=== PATIENT | female | born 1955 | race Caucasian/White ===

== ENCOUNTER 2019-12-01 13:18 | Emergency (ER) | payer MEDICAID, SELFPAY ==
[2019-12-01 13:21] VITALS: BMI 53.1
[2019-12-01 13:23] VITALS: BP 179/69; PULSE 96; RESP 20; TEMP 37; O2SAT 97
--- NOTE | 2019-12-01 13:23 | ED_ITS ---
Entered by Tomas Lyn LPN, acting as scribe for Mya Dangelo DO HPI - Epistaxis General: Chief complaint: Epistaxis Stated complaint: NOSEBLEED Time Seen by Provider: 12/01/19 13:25 Source: EMS Mode of arrival: EMS Limitations: no limitations History of Present Illness: HPI Narrative: 64 yo female presents via EMS with c/o extreme nosebleed. She reports she feels fine at this time, bleeding is controlled upon arrival to ER. She reports this is her 8th nosebleed in 3 weeks. She has seen Dr. Clinton since these started. She reports she had some right ear and sinus pain, Dr. Clinton wanted to do a CT, she is waiting to here for an appt for CT. She is on anticoagulant. She has been using Afrin with previous nosebleeds, states she usually just clamps her nose. Today's nosebleed lasted approximately 40mins to 1 hour, resolved while in route with EMS. She reports she has had a cough for awhile, nonproductive, was coughing then the nosebleed started today. She does have an inhaler to use at home as needed, no spacer. She is on home O2 via n/c, states she did not have this on when the bleeding started today. MD complaint: epistaxis Location: bilateral nostril Onset (ago): minute(s) (> 1 hour ago) Duration: now resolved Context: other anticoagulant use Associated symptoms: Reports sinus pain (right side for a couple weeks- seen ENT for this); Deny fever(s), headache(s) or vomiting Review of Systems Const: Denies: fever, chills, change in appetite or malaise Eyes: Denies: change in vision, blurry vision, eye discharge or eye redness ENMT: Reports: ear pain (right ear for a couple weeks- seen ENT for this), nose bleeds and facial/sinus pain (right side for a couple weeks- seen ENT for this); Denies: throat pain, uvular edema, painful swallowing, mouth pain, dental pain or nasal congestion Card: Denies: chest pain, irregular heart rhythm, swelling of feet/ankles, shortness of breath on exertion, shortness of breath when lying down or leg pain with exertion Resp: Reports: non-productive cough; Denies: shortness of breath, wheezing or coughing up blood GI: Denies: abdominal pain, nausea, vomiting, diarrhea, constipation or fecal incontinence : Denies: flank pain, difficulty urinating, painful urination, urinary frequency, urinary urgency or urinary hesitancy Musc: Denies: neck pain, back pain, extremity pain or extremity swelling Skin/Breast: Denies: rash, itching, redness, yellow skin or dry skin Neuro: Denies: headache, numbness in extremities, weakness in extremities, changes in sensation, lack of coordination or difficulty walking Psych: Denies: anxiety, depression, mood swings, panic attacks, sleeping less, suicidal ideation or homicidal ideation Endo: Denies: excessive urination, excessive thirst or tired all the time Kobe/Lymph: Denies: easy bruising, petechiae or enlarged lymph nodes All/Imm: Denies: hives, throat swelling, facial swelling, acute wheezing or seasonal allergies PFSH ED PFSH: Statuses (acute, chronic, etc) shown below reflect problem list status as previously entered and may not be historically accurate Social History Smoking and tobacco status: former smoker Physical Exam Const: COMMON NORMALS: no apparent distress, oriented x3, no limitations, healthy appearing, alert and well nourished GENERAL APPEARANCE: cooperative, comfortable, well kempt and well developed ORIENTATION/CONSCIOUSNESS: Yes awake, Yes oriented to person, Yes oriented to place and Yes oriented to time HENMT: COMMON NORMALS: normocephalic, head/scalp atraumatic, hearing grossly normal bilaterally, external ears normal, EAC's normal, TM's normal bilaterally, external nose normal, nasal mucous membranes and turbinates normal, moist oral mucous membranes, oropharynx normal, dentition normal and gingiva normal HEAD & SCALP: normal to inspection, normocephalic and atraumatic FACE & SINUS: normal facial exam NOSE: external nose normal, nasal mucous membranes and turbinates normal and other (not bleeding during exam, wearing n/c.) EXTERNAL EAR: Yes external ears normal EXTERNAL AUDITORY CANAL: EAC's normal TYMPANIC MEMBRANE: TM's normal bilaterally MOUTH: oral and palatal mucosa normal, lip normal and tongue normal THROAT: no uvular edema Eye: COMMON NORMALS: PERRL, EOMs intact bilaterally, conjunctivae normal, no scleral icterus and normal visual shaikh by confrontation GENERAL EYE: normal appearance of both eyes and normal light reflex VISUAL ACUITY: Yes acuity normal ALIGNMENT: Yes alignment normal PERIORBITAL: periorbital findings normal EYELID: eyelids normal CONJUNCTIVA: Yes conjunctivae normal SCLERA: sclerae normal PUPIL: Yes PERRL and Yes accommodation reflex normal DIRECT OPHTHALMOSCOPY: Yes normal light reflex Neck/C-Spine: COMMON NORMALS: full ROM, no lymphadenopathy, supple, no meningeal signs and no JVD GENERAL: Yes normal visual inspection CAROTIDS: Yes normal carotid upstroke CERVICAL SPINE: Yes cervical ROM normal Lymph: LYMPHATIC: no lymphadenopathy noted Chest: COMMONS NORMALS: inspection of chest normal CHEST: Yes symmetrical chest wall rise Resp: COMMON NORMALS: normal respiratory effort, no retractions, no use of accessory muscles and clear to auscultation bilaterally EFFORT & INSPECTION: Yes able to speak in complete sentences and Yes symmetric chest movement AUSCULTATION: clear to auscultation bilaterally Cardio: COMMON NORMALS: no JVD, regular rate, regular rhythm, S1 normal heart sound, S2 normal heart sound, no murmurs and peripheral pulses 2+ throughout RATE: regular rate RHYTHM: regular rhythm HEART SOUNDS: S1 normal and S2 normal PERIPHERAL PULSES: pulses 2+ throughout GI: COMMON NORMALS: normal to inspection, nondistended, normoactive bowel sounds and non-tender : COMMON NORMALS: Yes no CVA tenderness BLADDER/KIDNEY EXAM: Yes no CVA tenderness Back/Pelvis: COMMON NORMALS: no CVA tenderness, thoracic and lumbar spine normal to inspection, no thoracic nor lumbar tenderness and thoraco-lumbar ROM normal Extremity: COMMON NORMALS: normal to inspection, full ROM, normal capillary refill, no calf tenderness and no pedal edema Neuro: COMMON NORMALS: oriented x3, CN's II-XII intact bilaterally, moves all extremities, no focal motor deficits, no sensory deficits noted and gait normal SENSORIUM/ORIENTATION: Yes alert, Yes oriented to person, Yes oriented to place and Yes oriented to time MENINGEAL SIGNS: Yes no meningeal signs SPEECH: speech normal GAIT: Yes normal gait MOTOR EXAM: strength 5/5 throughout, no pronator drift and no tremor noted Psych: COMMON NORMALS: mental status grossly normal, thought process normal, c ooperative, affect normal, speech normal and activity/motor behavior normal APPEARANCE: Yes well kempt SPEECH: Yes normal speech THOUGHT PROCESS: normal thought process THOUGHT CONTENT: Yes normal thought content INSIGHT: insight good Skin: COMMON NORMALS: no rashes or lesions noted, no wounds, skin turgor normal and no jaundice GENERAL SKIN EXAM: no rashes or lesions noted and turgor normal Course ED course: pt nose is not bleeding, co mild intermittent cough which started nose bleed this am, cxr nad. Will send home with spacer as she does not have one and doxycycline for bronchitis as well as tessalon perles, she will follow up with PCP next week. Vital Signs: Vital signs: Vital Signs Temperature 98.6 F 12/01/19 13:23 Pulse Rate 91 12/01/19 13:34 Respiratory Rate 16 12/01/19 13:34 Blood Pressure 179/69 12/01/19 13:34 Pulse Oximetry 95 12/01/19 13:34 MDM - Epistaxis MDM Narrative: Medical decision making narrative: CXR unchanged from prior. Differential Diagnosis: Epistaxis Differential Diagnosis: Likely anterior epistaxis Discharge Plan Discharge Patient Disposition: Home, Self-Care Clinical Impression: Epistaxis, Bronchitis Condition: Stable Prescriptions: New benzonatate [Tessalon Perles] 100 mg capsule 100 mg PO TID 7 Days Qty: 21 RF: 0 doxycycline monohydrate 100 mg capsule 100 mg PO BID 7 Days Qty: 14 RF: 0 Referrals: Lorenzo Muller, [facility] [Primary Care Provider] - Discharge Diet: Usual diet Discharge Activity: Resume usual activity Patient Instructions: Epistaxis (ED), Acute Bronchitis (ED) Coding Level of Care Code ED Venereal Disease Control Head for Chg Fwd Exam Problem Focused The documentation recorded by the Riki virgen Dani Elizabeth, LPN, accurately reflects the service I personally performed and the decisions made by , Mya Dangelo,
--- NOTE | 2019-12-01 13:32 | XRR_ITS ---
PROCEDURE INFORMATION: Exam: XR Chest, 1 View Exam date and time: 12/01/2019 1:35 PM Age: 64 years old Clinical indication: Other: Bloody nose; Patient HX: PT states she has been having frequent nose bleeds, today lasting for over an hour; Additional info: Cough TECHNIQUE: Imaging protocol: XR of the chest Views: 1 view. COMPARISON: CR Chest 1 [place] [id number] 11/01/2019 5:46 PM FINDINGS: Lungs: Unremarkable. No consolidation. Pleural space: Unremarkable. No pleural effusion. No pneumothorax. Heart/Mediastinum: Unremarkable. No cardiomegaly. Vasculature: Thoracic aorta is mildly tortuous unchanged from the prior study. Bones/joints: Unremarkable. Other findings: Possible cardiomegalyHeart size not optimally evaluated with a single AP view of the chest. XR/XR chest 1V portable [id number] IMPRESSION: Possible cardiomegalyHeart size not optimally evaluated with a single AP view of the chest.
[2019-12-01 13:34] VITALS: BP 179/69; PULSE 91; RESP 16; O2SAT 95
[2019-12-01] MEDS: oxymetazoline 0.05% Nasal Spray 15 mL 2 SPRAY NOSTRIL-B (13:40)
[2019-12-01] MEDS: albuterol 8 gm MDI 2 PUFF INHALATION (14:17)
[2019-12-01 14:20] VITALS: PULSE 88; RESP 16; O2SAT 96
[2019-12-01 14:21] VITALS: BP 179/69; PULSE 92; RESP 17; O2SAT 99
== END 2019-12-01 14:33 | disposition home or self-care (01) ==
LOC: ER 13:48
PROVIDERS: Emergency Provider Emergency Medicine; Family Provider Nurse Practitioner; PCP Nurse Practitioner
DX: R04.0 Epistaxis (principal); J40 Bronchitis, not specified as acute or chronic; Z87.891 Personal history of nicotine dependence
CPT/HCPCS: 71045; 94640; 99281; J3535

== ENCOUNTER 2020-01-04 07:55 | Outpatient (CLI) | payer MEDICAID, SELFPAY ==
--- NOTE | 2020-01-04 08:08 | CT_ITS ---
WS: [id number] CT NECK TECHNIQUE: Contrast-enhanced CT of the neck with coronal and sagittal reformatted images. CLINICAL INFORMATION: LOCALIZED ENLARGED LYMP NODES, CERVICALGIA COMPARISON: CT neck July 17, 2010 DLP: 3411.[address] scans at [facility] use at least one of these dose optimization techniques: automat ed exposure control; mA and/or kV adjustment per patient size (includes targeted exams where dose is matched to clinical indication); or iterative reconstruction. FINDINGS: Both parotid glands are normal in appearance. Submandibular glands are normal. Normal parapharyngeal fat. A few prominent cervical lymph nodes not pathologically enlarged. No cervical lymphadenopathy. A symmetric prominence left palatine tonsil unchanged in appearance since 2009. Heterogeneous left thyroid gland with left thyroid nodule measuring 3.1 x 1.3 cm similar in appearanc e to 2009. This could be further evaluated with ultrasound. Mastoid air cells are well aerated. Paran marly sinuses are well aerated. Small retention cyst right maxillary sinus. Straightening of the claudia l cervical lordosis. Moderate spondylitic changes. CT/CT neck w con* [id number] IMPRESSION: 1. Salivary glands are normal in appearance. 2. No cervical lymphadenopathy. 3. Prominent asymmetric left palatine tonsil is unchanged in appearance since 2009. 4. No evidence of supraglottic or glottic mass. 5. Heterogeneously enhancing low-attenuation left thyroid nodule measuring 3.1 x 1.3 CM. This can be further evaluated with ultrasound. This is similar in ap pearance to 2010.
[2020-01-04 08:44] LABS: Blood Urea Nitrogen 27 mg/dL (8-23); Glomerular Filtration Rate 41.5 mL/min (90-130)
[2020-01-04] MEDS: iodixanol 320 mg/mL 100mL Btl IV (08:52)
== END 2020-01-04 07:56 | disposition home or self-care (01) ==
LOC: RADWPI 07:57
PROVIDERS: Family Provider Nurse Practitioner; PCP Nurse Practitioner; Visit Provider Otolaryngology
DX: R59.0 Localized enlarged lymph nodes (principal); M54.2 Cervicalgia; E04.1 Nontoxic single thyroid nodule
CPT/HCPCS: 70491; 82565; 84520; Q9967

== ENCOUNTER → 2020-01-21 12:51 | Outpatient (BNVA) | payer MEDICAID, SELFPAY | PROVIDERS: Family Provider Nurse Practitioner; PCP Nurse Practitioner; Visit Provider Nurse Practitioner | DX: E11.22 Type 2 diabetes mellitus with diabetic chronic kidney disease (principal); Z23 Encounter for immunization; I10 Essential (primary) hypertension; F41.8 Other specified anxiety disorders; J44.9 Chronic obstructive pulmonary disease, unspecified; M79.7 Fibromyalgia | CPT/HCPCS: 80053; 83036 ==

== ENCOUNTER → 2020-05-01 11:15 | Outpatient (BNVA) | payer MEDICAID, SELFPAY | PROVIDERS: Family Provider Nurse Practitioner; PCP Nurse Practitioner; Visit Provider Nurse Practitioner | DX: I12.9 Hypertensive chronic kidney disease with stage 1 through stage 4 chronic kidney disease, or unspecified chronic kidney disease (principal); E11.22 Type 2 diabetes mellitus with diabetic chronic kidney disease; N18.3 Chronic kidney disease, stage 3 (moderate); Z79.4 Long term (current) use of insulin | CPT/HCPCS: 80053; 80061; 81003; 83036 ==

== ENCOUNTER → 2020-05-16 10:51 | Outpatient (BNVA) | payer MEDICAID, SELFPAY | PROVIDERS: Family Provider Nurse Practitioner; PCP Nurse Practitioner; Visit Provider Nurse Practitioner Family | DX: R00.2 Palpitations (principal); E11.22 Type 2 diabetes mellitus with diabetic chronic kidney disease; N18.3 Chronic kidney disease, stage 3 (moderate); Z79.4 Long term (current) use of insulin | CPT/HCPCS: 80053; 85025; 93005 ==

== ENCOUNTER → 2020-06-03 16:03 | Outpatient (BNVA) | payer MEDICAID, SELFPAY | PROVIDERS: Family Provider Nurse Practitioner; PCP Nurse Practitioner; Visit Provider Internal Medicine Cardiovascular Disease | DX: R06.02 Shortness of breath (principal); I50.33 Acute on chronic diastolic (congestive) heart failure; I48.3 Typical atrial flutter; I25.3 Aneurysm of heart; J44.9 Chronic obstructive pulmonary disease, unspecified; Z79.4 Long term (current) use of insulin; Z87.891 Personal history of nicotine dependence; I13.0 Hypertensive heart and chronic kidney disease with heart failure and stage 1 through stage 4 chronic kidney disease, or unspecified chronic kidney disease; N18.3 Chronic kidney disease, stage 3 (moderate); E11.22 Type 2 diabetes mellitus with diabetic chronic kidney disease | CPT/HCPCS: 80048; 83880 ==

== ENCOUNTER 2020-06-11 12:59 | Outpatient (CLI) | payer MEDICAID, SELFPAY ==
[2020-06-12 07:34] LABS: PROTEIN, TOTAL 7.7 g/dL (6.1-8.1)
[2020-06-12 13:15] LABS: ALBUMIN 3.5 g/dL (3.8-4.8); ALPHA 1 GLOBULIN 0.3 g/dL (0.2-0.3); ALPHA 2 GLOBULIN 1.1 g/dL (0.5-0.9); BETA 1 GLOBULIN 0.6 g/dL (0.4-0.6); BETA 2 GLOBULIN 0.7 g/dL (0.2-0.5); GAMMA GLOBULIN 1.5 g/dL (0.8-1.7)
[2020-06-12 14:45] LABS: KAPPA LIGHT CHAIN, FREE, SERUM 102.4 mg/L (3.3-19.4); KAPPA/LAMBDA LIGHT CHAINS FREE 1.96 (0.26-1.65); LAMBDA LIGHT CHAIN, FREE, SERU 52.3 mg/L (5.7-26.3)
== END 2020-06-11 13:00 | disposition home or self-care (01) ==
LOC: LAB 13:02
PROVIDERS: PCP Nurse Practitioner; Visit Provider Internal Medicine Nephrology
DX: N18.3 Chronic kidney disease, stage 3 (moderate) (principal)
CPT/HCPCS: 36415; 83883; 84155; 84165

== ENCOUNTER 2020-07-04 10:01 | Outpatient (CLI) | payer MEDICAID, SELFPAY ==
--- NOTE | 2020-07-04 10:06 | US_ITS ---
WS: [id number] ULTRASOUND RENAL TECHNIQUE: Ultrasound examination of both kidneys. CLINICAL INFORMATION: STAGE3 CHRONIC KIDNEY DISEASE COMPARISON: Ultrasound renal April 27, 2018 FINDINGS: RIGHT: Right kidney is normal in size and appearance. Echogenicity: Normal. Cortical thickness: 1.5 cm; Normal. Hydronephrosis: None. Perinephric fluid: None. Right kidney measures: 11.7 cm x 6.1 cm x 7.3 cm. LEFT: Left kidney is normal in size and appearance. Echogenicity: Normal. Cortical thickness: 1.7 cm; Normal. Hydronephrosis: None. Perinephric fluid: None. Left kidney measures: 12.1 cm x 6.8 cm x 6.3 cm. Normal visualized aorta. US/US renal BI* [id number] IMPRESSION: 1. No hydronephrosis in either kidney. 2. Normal bladder. 3. Normal renal ultrasound
== END 2020-07-04 10:02 | disposition home or self-care (01) ==
LOC: US 10:03
PROVIDERS: PCP Nurse Practitioner; Visit Provider Internal Medicine Nephrology
DX: N18.3 Chronic kidney disease, stage 3 (moderate) (principal)
CPT/HCPCS: 76770

== ENCOUNTER → 2020-07-16 11:26 | Outpatient (BNVA) | payer MEDICAID, SELFPAY | PROVIDERS: PCP Nurse Practitioner; Visit Provider Internal Medicine Nephrology | DX: E11.22 Type 2 diabetes mellitus with diabetic chronic kidney disease (principal); I10 Essential (primary) hypertension; N18.3 Chronic kidney disease, stage 3 (moderate); Z79.4 Long term (current) use of insulin; N18.9 Chronic kidney disease, unspecified | CPT/HCPCS: 80053; 80061; 80069; 82043; 83036 ==

== ENCOUNTER → 2020-08-05 09:10 | Outpatient (BNVA) | payer MEDICAID, SELFPAY | PROVIDERS: PCP Nurse Practitioner; Referring Provider Nurse Practitioner; Visit Provider Specialist | DX: R56.9 Unspecified convulsions (principal); G31.84 Mild cognitive impairment of uncertain or unknown etiology; G47.33 Obstructive sleep apnea (adult) (pediatric); E11.40 Type 2 diabetes mellitus with diabetic neuropathy, unspecified; M79.7 Fibromyalgia; F32.9 Major depressive disorder, single episode, unspecified; Z87.891 Personal history of nicotine dependence | CPT/HCPCS: 96116; 99215 ==

== ENCOUNTER 2020-08-13 12:49 | Outpatient (CLI) | payer MEDICAID, SELFPAY ==
--- NOTE | 2020-08-13 13:00 | CT_ITS ---
WS: [id number] CT HEAD NONCONTRAST HISTORY: Memory loss. Confusion. TECHNIQUE: Contiguous axial imaging performed through the brain in 2.5 mm imaging. Bone and soft tiss ue windows. All CT scans at [facility] use at least one of these dose optimization techniq ues: automated exposure control; mA and/or kV adjustment per patient size (includes targeted exams wh ere dose is matched to clinical indication); or iterative reconstruction. DLP: 992.04 mGycm COMPARISON: None available. No acute intracranial hemorrhage, midline shift or mass effect. No atrophy or prior infarcts or herniation. Ventricles: Normal size with no hydrocephalus. Paranasal sinuses: As visualized are clear. Mastoid air cells: Well pneumatized. Calvarium and scalp: Skull is intact with no soft tissue edema or swelling. CT/CT head wo con* [id number] IMPRESSION: Negative head CT.
== END 2020-08-13 12:50 | disposition home or self-care (01) ==
LOC: RADWPI 12:51
PROVIDERS: PCP Nurse Practitioner; Visit Provider Specialist
DX: R41.3 Other amnesia (principal)
CPT/HCPCS: 70450

== ENCOUNTER 2020-09-06 15:05 | Emergency (ER) | payer MEDICAID, SELFPAY ==
[2020-09-06 15:36] VITALS: BP 187/70; PULSE 106; RESP 14; TEMP 37.1; O2SAT 95; BMI 53.1
--- NOTE | 2020-09-06 16:01 | XRR_ITS ---
PROCEDURE INFORMATION: Exam: XR Chest, 1 View Exam date and time: 09/06/2020 4:03 PM Age: 65 years old Clinical indication: Dyspnea TECHNIQUE: Imaging protocol: XR of the chest Views: 1 view. COMPARISON: CR XR chest 1V portable [id number] 12/01/2019 2:03 PM FINDINGS: Limitations: Study is technically limited due to body habitus. Lungs: Markedly decreased inspiration, with patchy atelectasis versus pneumonia in the right infrahilar region. Moderate elevation of the left hemidiaphragm. Pleural space: No pneumothorax. There is haziness in the right hemithorax which may be due to a layering right pleural effusion. Heart/Mediastinum: The cardiac silhouette and mediastinal contours are unremarkable. Bones/joints: Unremarkable for age. XR/XR chest 1V portable [id number] IMPRESSION: 1. Study is technically limited due to body habitus. 2. Markedly decreased inspiration, with patchy atelectasis versus pneumonia in the right infrahilar region. Recommend followup chest x-ray to ensure resolution. 3. There is haziness in the right hemithorax which may be due to a layering right pleural effusion. 4. Incidental/nonacute findings are listed in the report.
[2020-09-06 16:03] VITALS: O2SAT 98
[2020-09-06 16:30] LABS: Basophils # 0.1 10^3/uL (0.0-0.1); Basophils % 0.5 %; Eosinophils % 0.1 %; Hemoglobin 11.4 g/dL (11.5-15.3); Lymphocytes # 1.3 10^3/uL (0.8-4.8); Lymphocytes % 7.7 %; Mean Corpuscular HGB Conc 32.6 g/dL (30.0-36.0); Mean Corpuscular Volume 89.1 fL (81-99); Monocytes % 6.2 %; Neutrophils # 13.75 10^3/uL (1.8-7.7); Neutrophils % 84.8 %; Nucleated Red Blood Cells % 0 %; Platelet Count 195 10^3/cmm (130-400); Red Blood Count 3.93 10^6/uL (4.1-5.3); Red Cell Distribution Width 13.1 % (12.1-15.1); White Blood Count 16.2 10^3/uL (4.0-10.0)
--- NOTE | 2020-09-06 16:36 | ED_ITS ---
HPI - COVID General: Chief Complaint: COVID symptoms Stated Complaint: Showing all COVID symptoms Time Seen by Provider: 09/06/20 15:41 Triage information: Has fever, cough or shortness of breath . No known COVID + exposure last 14 days History of Present Illness: HPI Narrative: 65 yo female w complaints of cough, dyspnea and fever. She has known Covid. She usually wears 2 L per nasal cannula oxygen at home she has had chills nausea vomiting or diarrhea as well the cough cough is been nonproductive denies chest pain. MD complaint: known COVID positive Prior covid testing: yes, results known COVID 19 common symptoms: positive fever(s), chills, cough, non-productive cough, dyspnea, fatigue, body aches, nasal congestion, nausea, vomiting and diarrhea COVID 19 other sytmptoms: positive requiring oxygen (Usually uses 2 L by nasal cannula at home); negative chest pain or requiring more oxygen Onset (ago): day(s) Severity: moderate Pertinent comorbid conditions: hypertension, COPD/respiratory disease and on home oxygen Treatment prior to arrival: other (Albuterol inhaler) COVID Results: SARS-CoV-2 Antigen (Rapid) Negative (Negative) 09/06/20 16:16 09/06/20 SARS-CoV-2 RNA (RT-PCR) Pending 09/06/20 17:02 09/06/20 Review of Systems Const: Reports: fever(s), chills, body aches and fatigue ENMT: Reports: nasal congestion Card: Reports: dyspnea on exertion; Denies: chest pain, edema or orthopnea Resp: Reports: dyspnea, non-productive cough and wheezing GI: Reports: nausea, vomiting and diarrhea : Denies: flank pain, difficulty voiding, dysuria, urinary frequency or urinary urgency Skin/Breast: Denies: rash or pruritus PFSH ED PFSH: Medical History Atrial flutter Benign hypertension Chronic obstructive pulmonary disease, unspecified CKD (chronic kidney disease) COPD, moderate Coronary artery fistula Dietary noncompliance Diverticulosis Environmental and seasonal allergies Fibromyalgia Obesity Situational anxiety SOB (shortness of breath) Type 2 diabetes mellitus with diabetic chronic kidney disease Vitamin D deficiency Surgical History History of section 4 times History of cholecystectomy History of hysterectomy with BSO History of tonsillectomy Family History Other CHF (congestive heart failure) Diabetes Heart disease Hypertension Social History Smoking and tobacco status: former smoker Second hand smoke exposure: No Smoking risk assessment/counseling performed?: No Alcohol intake: current Alcohol intake frequency: holidays/special occasions only Desire information about alcohol rehabilitation?: No Counseling given: No Desire information about substance/drug rehabilitation?: No Counseling given: No Adopted: No Caregiver/support person: No Lives independently: Yes Household members: family Marital status: Single service: No Current occupational status: unemployed and disabled History of recent travel: No Current gender identity: Female Physical Exam Const: COMMON NORMALS: no acute distress GENERAL APPEARANCE: cooperative an d comfortable ORIENTATION/CONSCIOUSNESS: Yes awake, Yes oriented to person, Yes oriented to place and Yes oriented to time HENMT: COMMON NORMALS: normocephalic, atraumatic and hearing grossly normal bilaterally HEAD & SCALP: normocephalic and atraumatic Neck/C-Spine: COMMON NORMALS: no JVD Resp: COMMON NORMALS: normal respiratory effort, No retractions, No use of accessory muscles and clear to auscultation bilaterally AUSCULTATION: clear to auscultation bilaterally Cardio: COMMON NORMALS: no JVD, regular rate, regular rhythm and No murmurs present (Cardio) RATE: regular rate RHYTHM: regular rhythm GI: COMMON NORMALS: Soft to palpation and No hepatosplenomegaly present AUSCULTATION: Yes normoactive bowel sounds PALPATION: Yes Soft to palpation, No Tenderness to palpation present (GI), No Guarding due to palpation present (GI) and Yes No hepatosplenomegaly present Extremity: COMMON NORMALS: normal to inspection, capillary refill normal, no clubbing, cyanosis or edema, no calf tenderness and no pedal edema Neuro: SENSORIUM/ORIENTATION: Yes oriented to person, Yes oriented to place and Yes oriented to time Skin: COMMON NORMALS: no rashes or lesions noted GENERAL SKIN EXAM: no rashes or lesions noted Course Vital Signs: Vital signs: Vital Signs Temperature 98.8 F 09/06/20 15:36 Pulse Rate 102 H 10/17/20 17:55 Respiratory Rate 20 H 09/06/20 17:55 Blood Pressure 156/110 09/06/20 17:55 Pulse Oximetry 96 09/06/20 17:55 MDM - COVID MDM Narrative Medical decision making narrative: Patient is hyponatremic. She has elevated white count. She is actually maintaining her sats pretty good on the 2 L. Offered observation patient would really rather go home since she is doing well on her current oxygen she has ability to increase it if needed we will have her just monitor O2 sats. She would prefer to do that if she has any worsening or changes symptoms she needs to return immediately she expressed she has the ability and support to do that if needed. Otherwise follow-up with her doctor early next week. Lab Data Result diagrams: 09/06/20 16:16 09/06/20 16:16 Labs: Lab Results 09/06/20 09/06/20 09/06/20 Range/Units 16:16 16:16 16:16 WBC 16.2 H (4.0-10.0) 10^3/uL RBC 3.93 L (4.1-5.3) 10^6/uL Hgb 11.4 L (11.5-15.3) g/dL Hct 35.0 L (37.0-47.0) % MCV 89.1 (81-99) fL MCH 29.0 (28.0-34.0) pg MCHC 32.6 (30.0-36.0) g/dL RDW 13.1 (12.1-15.1) % Plt Count 195 (130-400) 10^3/cmm MPV 11.0 H (7.4-10.4) fL Neut % (Auto) 84.8 % Lymph % (Auto) 7.7 % Dewey % (Auto) 6.2 % Eos % (Auto) 0.1 % Baso % (Auto) 0.5 % Neut # (Auto) 13.75 H (1.8-7.7) 10^3/uL Lymph # (Auto) 1.3 (0.8-4.8) 10^3/uL Dewey # (Auto) 1.0 H (0.2-0.9) 10^3/uL Eos # (Auto) 0.0 (0.0-0.8) 10^3/uL Baso # (Auto) 0.1 (0.0-0.1) 10^3/uL Nucleated RBC % (auto) 0 % Nucleated RBCs # 0.0 /100WBC Fibrinogen 488 (174-498) mg/dL D-Dimer 0.43 (0-0.59) ug/mIFEU Specimen Type Sample Site ABG pH (7.35-7.45) ABG pCO2 (35-45) mmHg ABG pO2 (80.0-100.0) mmHg ABG HCO3 (22-26) mmol/L ABG Base Excess (-2.0-2.0) mmol/L Sharad Test Hematocrit (37-47) % O2 Delivery Device Chief Crew Scheduler ID Sodium 127 L (136-145) mmol/L Potassium 4.8 (3.5-5.1) mmol/L Chloride 88 L (98-107) mmol/L Carbon Dioxide 27 (22-29) mmol/L Anion Gap 16.8 (5-19) BUN 34 H (8-23) mg/dL Creatinine 1.6 H (0.5-0.9) mg/dL GFR Calculation 32.6 L (90-130) mL/min Glucose 382 H (65-115) mg/dL Calculated Osmolality 287 (285-295) mOsm/kg Lactic Acid (0.5-2.2) mmol/L Calcium 9.8 (8.5-10.5) mg/dL Ferritin 403 H (15-150) ng/mL Total Bilirubin 0.4 (0.15-1.2) mg/dL AST 24 (0-32) U/L ALT 28 (0-33) U/L Alkaline Phosphatase 114 H (35-105) IU/L C-Reactive Protein 121.8 H (0.0-4.9) mg/L Total Protein 7.7 (6.6-8.7) g/dL Albumin 3.9 (3.5-5.2) g/dL Globulin 3.8 (1.3-4.6) g/dL Procalcitonin 0.50 (0-0.5) ng/mL SARS-CoV-2 Ag (Rapid) (Negative) 09/06/20 09/06/20 09/06/20 Range/Units 16:16 16:16 16:27 WBC (4.0-10.0) 10^3/uL RBC (4.1-5.3) 10^6/uL Hgb (11.5-15.3) g/dL Hct (37.0-47.0) % MCV (81-99) fL MCH (28.0-34.0) pg MCHC (30.0-36.0) g/dL RDW (12.1-15.1) % Plt Count (130-400) 10^3/cmm MPV (7.4-10.4) fL Neut % (Auto) % Lymph % (Auto) % Dewey % (Auto) % Eos % (Auto) % Baso % (Auto) % Neut # (Auto) (1.8-7.7) 10^3/uL Lymph # (Auto) (0.8-4.8) 10^3/uL Dewey # (Auto) (0.2-0.9) 10^3/uL Eos # (Auto) (0.0-0.8) 10^3/uL Baso # (Auto) (0.0-0.1) 10^3/uL Nucleated RBC % (auto) % Nucleated RBCs # /100WBC Fibrinogen (174-498) mg/dL D-Dimer (0-0.59) ug/mIFEU Specimen Type Arterial Sample Site Brachial, left ABG pH 7.45 (7.35-7.45) ABG pCO2 42.7 (35-45) mmHg ABG pO2 76.6 L (80.0-100.0) mmHg ABG HCO3 29.5 H (22-26) mmol/L ABG Base Excess 4.9 H (-2.0-2.0) mmol/L Sharad Test N/a Hematocrit 35.9 L (37-47) % O2 Delivery Device Room air Chief Crew Scheduler ID Gd Sodium (136-145) mmol/L Potassium (3.5-5.1) mmol/L Chloride (98-107) mmol/L Carbon Dioxide (22-29) mmol/L Anion Gap (5-19) BUN (8-23) mg/dL Creatinine (0.5-0.9) mg/dL GFR Calculation (90-130) mL/min Glucose (65-115) mg/dL Calculated Osmolality (285-295) mOsm/kg Lactic Acid 2.2 (0.5-2.2) mmol/L Calcium (8.5-10.5) mg/dL Ferritin (15-150) ng/mL Total Bilirubin (0.15-1.2) mg/dL AST (0-32) U/L ALT (0-33) U/L Alkaline Phosphatase (35-105) IU/L C-Reactive Protein (0.0-4.9) mg/L Total Protein (6.6-8.7) g/dL Albumin (3.5-5.2) g/dL Globulin (1.3-4.6) g/dL Procalcitonin (0-0.5) ng/mL SARS-CoV-2 Ag (Rapid) Negative (Negative) COVID Results: SARS-CoV-2 Antigen (Rapid) Negative (Negative) 09/06/20 16:16 09/06/20 SARS-CoV-2 RNA (RT-PCR) Pending 09/06/20 17:02 09/06/20 Discharge Plan Discharge Patient Disposition: Home Clinical Impression: Viral URI with cough, Suspected COVID-19 virus infection Condition: Stable Prescriptions: No Action (DME) pen needle, diabetic [TechLITE Pen Needle] 31 gauge x 5/16 needle See Rx Instructions .ROUTE .MEDSUPPLY Qty: 1,200 RF: 0 nitroglycerin [Nitrostat] 0.4 mg tablet, sublingual 0.4 mg SUBLINGUAL Q5M PRNRF: 0 clindamycin phosphate 1 % lotion 1 applic TOPICAL BID PRN (Reason: skin irritation) Qty: 60 RF: 2 triamcinolone acetonide 0.1 % ointment 1 applic TOPICAL DAILY PRN (Reason: itching) Qty: 30 RF: 0 (DME) blood-glucose meter [Blood Glucose Monitoring] Kit See Rx Instructions .ROUTE .MEDSUPPLY Qty: 1 RF: 0 rivastigmine 4.6 mg/24 hr patch 24 hour 4.6 mg TRANSDERMA DAILY Qty: 30 RF: 5 amlodipine 10 mg tablet 10 mg PO DAILY Qty: 30 RF: 2 fluoxetine 40 mg capsule 40 mg PO DAILY Qty: 30 RF: 2 hydroxyzine pamoate 25 mg capsule 25 mg PO BID PRN (Reason: anxiety) Qty: 60 RF: 2 insulin aspart U-100 [Novolog Flexpen U-100 Insulin] 100 unit/mL (3 mL) insulin pen 6 - 27 unit SUBCUT TID Qty: 15 RF: 2 Levemir FlexTouch U-100 Insuln 100 unit/mL (3 mL) insulin pen 125 unit SUBCUT QDAY Qty: 30 RF: 2 magnesium oxide 400 mg magnesium tablet 400 mg PO BID Qty: 60 RF: 2 methocarbamol 500 mg tablet 500 mg PO TID PRN (Reason: muscle pain) Qty: 90 RF: 2 Ozempic 0.25 mg or 0.5 mg(2 mg/1.5 mL) pen injector 0.25 mg SUBCUT .weekly Qty: 1.5 RF: 2 Eliquis 5 mg tablet 5 mg PO BID 90 Days Qty: 180 RF: 3 lisinopril 40 mg tablet 40 mg PO DAILY Qty: 30 RF: 2 spironolactone 25 mg tablet 25 mg PO DAILY Qty: 30 RF: 2 Hold Instructions: Increased bun and creatinine and potassium albuterol sulfate [ProAir HFA] 90 mcg/actuation HFA aerosol inhaler 2 puff INHALATION Q4H PRN (Reason: shortness of breath or wheezing) Qty: 8.5 RF: 2 furosemide 20 mg tablet 60 mg PO BID Qty: 180 RF: 3 potassium chloride 20 mEq tablet extended release 20 meq PO TID Qty: 42 RF: 3 isosorbide mononitrate 60 mg tablet extended release 24 hr 60 mg PO QDAY Qty: 30 RF: 3 carvedilol 25 mg tablet 25 mg PO BID 30 Days Qty: 60 RF: 4 amitriptyline 50 mg tablet 50 mg PO .at bedtime Qty: 30 RF: 1 Discharge Orders: Discharge Order (Routine); Ordered 09/06/20 Ordered By: Lazaro Moses Referrals: Lorenzo Muller, MEAT SALES AND STORAGE MANAGER-C [Primary Care Provider] - Discharge Diet: Usual diet Discharge Activity: Increase activity as tolerated Activity Restrictions/Additional Instructions: Monitor your oxygen saturations with the finger sat monitor given to you today. If your oxygen saturation falls below 90% consistently return to the emergency room. Follow-up with your primary care doctor in 2 days if you have any other problems breathing return to the emergency room. Discharge Date/Time: 09/06/20 17:55 Coding Level of Care Code ED Mechanical Field Engineer for Anel Mcknight
[2020-09-06 16:42] LABS: Fibrinogen 488 mg/dL (174-498)
[2020-09-06 16:46] LABS: D Dimer 0.43 ug/mIFEU (0-0.59)
[2020-09-06 16:53] LABS: Lactic Sepsis W/Reflex 2.2 mmol/L (0.5-2.2); SARS Covid-2 Antigen Negative (Negative)
[2020-09-06 17:12] LABS: Alanine Aminotransferase 28 U/L (0-33); Albumin Level 3.9 g/dL (3.5-5.2); Alkaline Phosphatase 114 IU/L (35-105); Anion Gap 16.8 (5-19); Aspartate Amino Transferase 24 U/L (0-32); Blood Urea Nitrogen 34 mg/dL (8-23); C Reactive Protein 121.8 mg/L (0.0-4.9); Calcium 9.8 mg/dL (8.5-10.5); Carbon Dioxide 27 mmol/L (22-29); Chloride 88 mmol/L (98-107); Ferritin 403 ng/mL (15-150); Globulin 3.8 g/dL (1.3-4.6); Glomerular Filtration Rate 32.6 mL/min (90-130); Glucose 382 mg/dL (65-115); Osmolality Calculated 287 mOsm/kg (285-295); Potassium 4.8 mmol/L (3.5-5.1); Sodium 127 mmol/L (136-145); Total Bilirubin 0.4 mg/dL (0.15-1.2); Total Protein 7.7 g/dL (6.6-8.7)
[2020-09-06 17:20] LABS: Reflex Lactate Order REFLEX LACTIC ORDERD
[2020-09-06 17:40] LABS: ABG PCO2 42.7 mmHg (35-45); ABG PH Result 7.45 (7.35-7.45); Arterial Blood Gas Hematocrit 35.9 % (37-47); Base Excess ABG 4.9 mmol/L (-2.0-2.0); Blood Gas Operator Identificat GD; Blood Gas Sample Site Brachial, left; Blood Gas Sample Type Arterial; HCO3 ABG 29.5 mmol/L (22-26); Oxygen Device ROOM AIR; PO2 ABG 76.6 mmHg (80.0-100.0)
[2020-09-06 17:55] VITALS: BP 156/110; PULSE 102; RESP 20; O2SAT 96
--- NOTE | 2020-09-08 09:09 | DCPLANNER ---
signals intelligence analysis manager had message to schedule a phone visit with her primary care physician. signals intelligence analysis manager called patient to confirm who patient sees for primary care, was told that patient is seen at the [facility]. signals intelligence analysis manager called the [facility], spoke with Nia, a follow up appointment was scheduled for Tuesday, September 09, 2020 at 9:20 with Candice Bahena. Clinic will call patient with appointment information.
[2020-09-09 08:53] LABS: Quest SARS-CoV-2 RNA NOT DETECTED (NOT DETECTED)
--- NOTE | 2020-09-09 17:09 | PC.NURSE ---
Pt called and notified of negative COVID result.
--- NOTE | 2020-09-12 15:27 | DCPLANNER ---
Patient did have appointment scheduled for 09.09.20 at [facility] - patient did attend appointment.
== END 2020-09-06 17:55 | disposition home or self-care (01) ==
PROVIDERS: Emergency Provider Family Medicine; PCP Nurse Practitioner
DX: J06.9 Acute upper respiratory infection, unspecified (principal); Z20.828 Contact with and (suspected) exposure to other viral communicable diseases; Z79.4 Long term (current) use of insulin; Z79.01 Long term (current) use of anticoagulants; I48.92 Unspecified atrial flutter; I10 Essential (primary) hypertension; J44.9 Chronic obstructive pulmonary disease, unspecified; E11.9 Type 2 diabetes mellitus without complications; Z87.891 Personal history of nicotine dependence
CPT/HCPCS: 12345; 36600; 71045; 80053; 82728; 82803; 83605; 84145; 85025; 85378; 85384; 86140; 87040; 87426; 87635; 99283

== ENCOUNTER → 2020-12-08 15:36 | Outpatient (BNVA) | payer MEDICAID, SELFPAY | PROVIDERS: PCP Nurse Practitioner; Visit Provider Nurse Practitioner Family | DX: J02.9 Acute pharyngitis, unspecified (principal); Z20.828 Contact with and (suspected) exposure to other viral communicable diseases | CPT/HCPCS: 87071; 87635; 87880 ==

== ENCOUNTER → 2021-01-21 11:00 | Outpatient (BNVA) | payer MEDICAID, SELFPAY | PROVIDERS: PCP Nurse Practitioner; Visit Provider Nurse Practitioner | DX: N18.30 Chronic kidney disease, stage 3 unspecified (principal); R68.89 Other general symptoms and signs; E11.22 Type 2 diabetes mellitus with diabetic chronic kidney disease; Z79.4 Long term (current) use of insulin; M50.30 Other cervical disc degeneration, unspecified cervical region; M79.7 Fibromyalgia; F41.8 Other specified anxiety disorders; J44.9 Chronic obstructive pulmonary disease, unspecified; E11.42 Type 2 diabetes mellitus with diabetic polyneuropathy; Z91.11 Patient's noncompliance with dietary regimen; I12.9 Hypertensive chronic kidney disease with stage 1 through stage 4 chronic kidney disease, or unspecified chronic kidney disease; M47.812 Spondylosis without myelopathy or radiculopathy, cervical region | CPT/HCPCS: 72040; 80053; 80061; 80069; 82043; 82310; 83036; 83970; 85025 ==

== ENCOUNTER → 2021-03-06 10:30 | Outpatient (BNVA) | payer MEDICAID, SELFPAY | PROVIDERS: PCP Nurse Practitioner; Visit Provider Internal Medicine Nephrology | DX: N18.32 Chronic kidney disease, stage 3b (principal); N18.30 Chronic kidney disease, stage 3 unspecified | CPT/HCPCS: 80069; 82043; 82310; 83970; 85025 ==

== ENCOUNTER → 2021-03-25 10:47 | Outpatient (BNVA) | payer MEDICAID, SELFPAY | PROVIDERS: PCP Nurse Practitioner; Visit Provider Specialist | DX: M79.7 Fibromyalgia (principal); G31.84 Mild cognitive impairment of uncertain or unknown etiology; E11.42 Type 2 diabetes mellitus with diabetic polyneuropathy; E11.22 Type 2 diabetes mellitus with diabetic chronic kidney disease; N18.9 Chronic kidney disease, unspecified; Z79.4 Long term (current) use of insulin; F41.8 Other specified anxiety disorders; Z87.891 Personal history of nicotine dependence | CPT/HCPCS: 99214 ==

== ENCOUNTER 2021-03-25 13:53 | Outpatient (CLI) | payer MEDICAID, SELFPAY ==
[2021-03-25 15:20] LABS: C Reactive Protein 10.2 mg/L (0.0-4.9); Creatine Phosphokinase 49 U/L (26-192)
[2021-03-25 15:36] LABS: Vitamin B12 1321 pg/mL (232-1245)
[2021-03-25 17:33] LABS: Erythrocyte Sedimentation Rate 58 mm/hr (0-15)
[2021-03-26 11:02] LABS: COMPLEMENT COMPONENT C3C 127 mg/dL (83-193); COMPLEMENT COMPONENT C4C 28 mg/dL (15-57)
[2021-03-27 11:13] LABS: COMPLEMENT, TOTAL (CH50) >60 U/mL (31-60)
[2021-03-30 13:13] LABS: CENTROMERE B ANTIBODY <1.0 NEG AI (<1.0 NEG); JO-1 ANTIBODY <1.0 NEG AI (<1.0 NEG); RNP ANTIBODY <1.0 NEG AI (<1.0 NEG); SCL-70 ANTIBODY <1.0 NEG AI (<1.0 NEG); SJOGREN'S ANTIBODY (SS-A) <1.0 NEG AI (<1.0 NEG); SM ANTIBODY <1.0 NEG AI (<1.0 NEG); SS-B <1.0 NEG AI (<1.0 NEG)
[2021-03-30 14:18] LABS: THYROID PEROXIDASE ANTIBODIES 1 IU/mL (<9)
[2021-03-31 13:47] LABS: ANA PATTERN Cytoplasmic; ANA SCREEN, IFA POSITIVE (NEGATIVE)
[2021-04-02 01:37] LABS: DNA AB (DS) CRITHIDIA,IFA NEGATIVE (NEGATIVE)
== END 2021-03-25 13:54 | disposition home or self-care (01) ==
LOC: LAB 14:01
PROVIDERS: PCP Nurse Practitioner; Visit Provider Specialist
DX: M79.7 Fibromyalgia (principal)
CPT/HCPCS: 82550; 82607; 85651; 86140; 86160; 86162; 86235; 86255; 86376

== ENCOUNTER → 2021-03-27 10:09 | Outpatient (BNVA) | payer MEDICAID, SELFPAY | PROVIDERS: PCP Nurse Practitioner; Visit Provider Specialist | DX: E11.22 Type 2 diabetes mellitus with diabetic chronic kidney disease (principal); N18.30 Chronic kidney disease, stage 3 unspecified; E11.42 Type 2 diabetes mellitus with diabetic polyneuropathy; M79.7 Fibromyalgia; Z79.4 Long term (current) use of insulin | CPT/HCPCS: 81003 ==

== ENCOUNTER 2021-03-30 12:24 | Emergency (ER) | payer MEDICAID, SELFPAY ==
[2021-03-30 12:33] VITALS: BP 151/86; PULSE 71; RESP 16; TEMP 36.7; O2SAT 97; BMI 53.1
--- NOTE | 2021-03-30 17:09 | USCV_ITS ---
Robbiemirza Jennifer Age: 65 Gender: F : 1955 Exam Date: 03/30/2021 17:47 Ordering Phys: Lazaro Moses DO Technologist: Exam Location: [facility] [place] Indication: BLE PAIN HISTORY: Lower extremity pain. PROCEDURES: Venous duplex imaging was performed in bilateral lower extremities. The following venous structures were evaluated: common femoral vein, profunda vein, proximal portion of the greater saphenous vein, superficial femoral vein, and the popliteal vein. In addition, the posterior tibial and peroneal trunk were evaluated. Serial compression, augmentation maneuvers, and spectral Doppler flow evaluation were performed. FINDINGS: Normal 2-D Doppler and augmentation and compressibility throughout the lower extremity venous structures. Additional imaging through the proximal calf veins also reveals no thrombus. Limited evaluation of the greater saphenous vein is patent with no thrombus. CONCLUSIONS No DVT bilateral lower extremities. Dr. Tram Nino DO (Electronically Signed) Final Date: 31 Mar 2021 08:18 S
--- NOTE | 2021-03-30 17:11 | XRR_ITS ---
PROCEDURE INFORMATION: Exam: XR Chest Exam date and time: 03/30/2021 5:19 PM Age: 65 years old Clinical indication: Shortness of breath; Chest pain; Additional info: Dyspnea/cough TECHNIQUE: Imaging protocol: XR of the chest. Views: 1 view. COMPARISON: CR XR chest 1V portable [id number] 09/06/2020 4:10 PM FINDINGS: Lungs: Unremarkable. No consolidation. Pleural spaces: Unremarkable. No pleural effusion. No pneumothorax. Heart/Mediastinum: Unremarkable. No cardiomegaly. Bones/joints: Unremarkable. XR/XR chest 1V portable [id number] IMPRESSION: No acute findings.
--- NOTE | 2021-03-30 17:11 | ECG_ITS ---
[facility] Test Date: 2021-03-30 Pat Name: Jennifer Novak Department: Room: Gender: Female Supervisor Ditching: : 1955 Requested By: Lazaro Willson Order Number: [id number] Cierra MD: Renee Seay M.D. Measurements Intervals [place] Rate: 70 P: 78 AL: 205 QRS: -85 QRSD: 158 T: 31 QT: 463 QTc: 500 Interpretive Statements SINUS RHYTHM LEFT AXIS DEVIATION [QRS AXIS < -30] RIGHT BUNDLE BRANCH BLOCK [120+ ms QRS DURATION, UPRIGHT V1, 40+ ms S IN I/aVL/V4/V5/V6] Compared to ECG 11/01/2019 20:03:26 No significant changes Electronically Signed On 03-31-2021 9:23:24 CDT by Renee Seay M.D. [id number]
--- NOTE | 2021-03-30 17:12 | ED_ITS ---
Documented by User: Lazaro Moses DO 03/31/21 17:11 HPI - General Adult General: Chief complaint: General Medical Stated complaint: THINKS MAY HAVE BLOOD IN STOOL Time Seen by Provider: 03/30/21 16:35 History of Present Illness: HPI narrative: 65-year-old female comes in with multiple complaints complaining of epigastric upper abdominal pains complaining of chest pain radiating to her left arm. She said she has had this for months and she is just tired of it cannot take it anymore she also complaining of pain bilaterally into her legs. She is seen Dr. Aquino in the past and has had stress test within the last 2 years that she reported as normal. According to her note she is noncompliant with her diabetes and with her CPAP for sleep apnea. She previously had been on chronic narcotics for fibromyalgia. She is also seen Dr. Grant several times she was very concerned that she had multiple sclerosis Dr. Grant did not feel she had no symptoms to warrant significant testing. Onset (ago): month(s) Location: chest, abdomen, upper extremity and lower extremity Severity: severe (Per patient description) Quality: aching Pain Consistency: constant Relieving factors: none Exacerbating factors: none Associated symptoms: Reports chest pain, confusion, decreased appetite, dyspnea, malaise, nausea, palpitations, short of breath, vomiting and weakness; Deny cough, diaphoresis, fevers/chills, headache(s), rash, seizures or syncope Treatments prior to arrival: none Review of Systems Const: Reports: malaise; Denies: diaphoresis ENMT: Denies: throat pain, ear or mastoid pain, nasal discharge or nasal congestion Card: Reports: chest pain and palpitations; Denies: syncope Resp: Reports: dyspnea GI: Reports: nausea and vomiting : Denies: flank pain, difficulty voiding, dysuria, urinary frequency or urinary urgency Skin/Breast: Denies: rash Neuro: Reports: confusion; Denies: headache(s) PFS ED PFSH: Medical History Atrial flutter Benign hypertension Chronic obstructive pulmonary disease, unspecified CKD (chronic kidney disease) COPD, moderate Coronary artery fistula Dietary noncompliance Diverticulosis Environmental and seasonal allergies Fibromyalgia Noncompliance with diabetes treatment Not consistent with diet Obesity Situational anxiety SOB (shortness of breath) Type 2 diabetes mellitus with diabetic chronic kidney disease Vitamin D deficiency Surgical History History of section 4 times History of cholecystectomy History of hysterectomy with BSO History of tonsillectomy Family History Brother Bleeding disorder CAD (coronary artery disease) Father CAD (coronary artery disease) Chronic kidney disease (CKD) Mother CAD (coronary artery disease) Cancer Diabetes Family/Other Cancer Other CHF (congestive heart failure) Heart disease Hypertension Denies family history of Clotting disorder Dementia Suicide Anesthesia complication Lung disease Stroke Social History Smoking and tobacco status: former smoker Second hand smoke exposure: No Smoking risk assessment/counseling performed?: No Alcohol intake: current Alcohol intake frequency: holidays/special occasions only Desire information about alcohol rehabilitation?: No Counseling given: No Desire information about substance/drug rehabilitation?: No Counseling given: No Adopted: No Caregiver/support person: No Lives independently: Yes Household members: family Marital status: Single service: No Current occupational status: unemployed and disabled History of recent travel: No Current gender identity: Female Physical Exam Const: COMMON NORMALS: no acute distress GENERAL APPEARANCE: cooperative and comfortable ORIENTATION/CONSCIOUSNESS: Yes awake, Yes oriented to person, Yes oriented to place and Yes oriented to time HENMT: COMMON NORMALS: normocephalic, atraumatic and hearing grossly normal bilaterally HEAD & SCALP: normocephalic and atraumatic Eye: COMMON NORMALS: Equal, round and reactive pupils present, EOMs intact bilaterally, conjunctivae normal and no scleral icterus CONJUNCTIVA: Yes conjunctivae normal PUPIL: Yes Equal, round and reactive pupils present Neck/C-Spine: COMMON NORMALS: full ROM, no lymphadenopathy, supple and no JVD Resp: COMMON NORMALS: normal respiratory effort, No retractions, No use of accessory muscles and clear to auscultation bilaterally AUSCULTATION: clear to auscultation bilaterally Cardio: COMMON NORMALS: no JVD, regular rate, regular rhythm and No murmurs present (Cardio) RATE: regular rate RHYTHM: regular rhythm GI: COMMON NORMALS: Soft to palpation and No hepatosplenomegaly present AUSCULTATION: Yes normoactive bowel sounds PALPATION: Yes Soft to palpation, No Tenderness to palpation present (GI), No Guarding due to palpation present (GI) and Yes No hepatosplenomegaly present Extremity: COMMON NORMALS: normal to inspection, capillary refill normal, no clubbing, cyanosis or edema, no calf tenderness and no pedal edema Neuro: SENSORIUM/ORIENTATION: Yes oriented to person, Yes oriented to place and Yes oriented to time Skin: COMMON NORMALS: no rashes or lesions noted GENERAL SKIN EXAM: no rashes or lesions noted Course Vital Signs: Vital signs: Vital Signs Temperature 98.0 F 03/30/21 12:33 Pulse Rate 72 03/30/21 20:08 Respiratory Rate 17 03/30/21 20:08 Blood Pressure 156/69 03/30/21 20:08 Pulse Oximetry 95 03/30/21 20:08 MDM - General Adult MDM Narrative: Medical decision making narrative: Care turned over to Dr. Dasilva at change of shift see his notes for final diagnosis and disposition Lab Data: Labs: Lab Results 03/30/21 03/30/21 03/30/21 Range/Units 17:14 17:14 17:14 WBC 8.5 (4.0-10.0) 10^3/ uL RBC 4.48 (4.1-5.3) 10^6/u L Hgb 13.1 (11.5-15.3) g/dL Hct 39.6 (37.0-47.0) % MCV 88.4 (81-99) fL MCH 29.2 (28.0-34.0) pg MCHC 33.1 (30.0-36.0) g/dL RDW 13.2 (12.1-15.1) % Plt Count 264 (130-400) 10^3/c mm MPV 11.1 H (7.4-10.4) fL Neut % (Auto) 60.7 % Lymph % (Auto) 28.3 % [place] % (Auto) 6.6 % Eos % (Auto) 3.1 % Baso % (Auto) 0.8 % Neut # (Auto) 5.14 (1.8-7.7) 10^3/u L Lymph # (Auto) 2.4 (0.8-4.8) 10^3/u L [place] # (Auto) 0.6 (0.2-0.9) 10^3/u L Eos # (Auto) 0.3 (0.0-0.8) 10^3/u L Baso # (Auto) 0.1 (0.0-0.1) 10^3/u L Nucleated RBC % (a uto) 0 % Nucleated RBCs # 0.0 /100WBC PT 15.80 H (12.1-14.9) SECO NDS INR 1.23 H (0.8-1.2) APTT 30.7 (23.9-36.7) SECO NDS Sodium 136 (136-145) mmol/L Potassium 4.3 (3.5-5.1) mmol/L Chloride 96 L (98-107) mmol/L Carbon Dioxide 26 (22-29) mmol/L Anion Gap 18.3 (5-19) BUN 41 H (8-23) mg/dL Creatinine 1.4 H (0.5-0.9) mg/dL GFR Calculation 38.0 L (90-130) mL/min Glucose 282 H (65-115) mg/dL Calculated Osmolal ity 302 H (285-295) mOsm/k g Calcium 9.7 (8.5-10.5) mg/dL Total Bilirubin 0.4 (0.15-1.2) mg/dL AST 17 (0-32) U/L ALT 18 (0-33) U/L Alkaline Phosphata se 76 (35-105) IU/L Creatine Kinase (26-192) U/L Troponin T Baselin e (0-10) ng/L Troponin T 120 Min [place] (0-10) ng/L Delta Troponin T (0-10) ABS# Total Protein 7.4 (6.6-8.7) g/dL Albumin 3.9 (3.5-5.2) g/dL Globulin 3.5 (1.3-4.6) g/dL Lipase (13-60) U/L 03/30/21 03/30/21 03/30/21 Range/Units 17:14 17:14 19:05 WBC (4.0-10.0) 10^3/ uL RBC (4.1-5.3) 10^6/u L Hgb (11.5-15.3) g/dL Hct (37.0-47.0) % MCV (81-99) fL MCH (28.0-34.0) pg MCHC (30.0-36.0) g/dL RDW (12.1-15.1) % Plt Count (130-400) 10^3/c mm MPV (7.4-10.4) fL Neut % (Auto) % Lymph % (Auto) % [place] % (Auto) % Eos % (Auto) % Baso % (Auto) % Neut # (Auto) (1.8-7.7) 10^3/u L Lymph # (Auto) (0.8-4.8) 10^3/u L [place] # (Auto) (0.2-0.9) 10^3/u L Eos # (Auto) (0.0-0.8) 10^3/u L Baso # (Auto) (0.0-0.1) 10^3/u L Nucleated RBC % (a uto) % Nucleated RBCs # /100WBC PT (12.1-14.9) SECO NDS INR (0.8-1.2) APTT (23.9-36.7) SECO NDS Sodium (136-145) mmol/L Potassium (3.5-5.1) mmol/L Chloride (98-107) mmol/L Carbon Dioxide (22-29) mmol/L Anion Gap (5-19) BUN (8-23) mg/dL Creatinine (0.5-0.9) mg/dL GFR Calculation (90-130) mL/min Glucose (65-115) mg/dL Calculated Osmolal ity (285-295) mOsm/k g Calcium (8.5-10.5) mg/dL Total Bilirubin (0.15-1.2) mg/dL AST (0-32) U/L ALT (0-33) U/L Alkaline Phosphata se (35-105) IU/L Creatine Kinase 57 (26-192) U/L Troponin T Baselin e 20 H (0-10) ng/L Troponin T 120 Min [place] 19.58 H (0-10) ng/L Delta Troponin T -0.42 L (0-10) ABS# Total Protein (6.6-8.7) g/dL Albumin (3.5-5.2) g/dL Globulin (1.3-4.6) g/dL Lipase 52 (13-60) U/L EKG Data^: EKG 1: Computer generated interpretation: Chest X-Ray 03/30/21 17:11 IMPRESSION: No acute findings. Chest/Abdomen/Pelvis CT 03/30/21 17:42 IMPRESSION: No acute finding. Radiation Dose CTDIVOL = (mGy): DLP = 1929.22~1929.22 (mGy-cm) Discharge Plan Discharge Patient Disposition: Home Clinical Impression: Atypical chest pain Abdominal pain Qualifiers: Abdominal location: generalized Qualified Code(s): R10.84 - Generalized abdominal pain Condition: Stable Prescriptions: No Action (DME) pen needle, diabetic [TechLITE Pen Needle] 31 gauge x 5/16 needle See Rx Instructions .ROUTE .MEDSUPPLY Qty: 1,200 RF: 0 nitroglycerin [Nitrostat] 0.4 mg tablet, sublingual 0.4 mg SUBLINGUAL Q5M PRN (Reason: Chest Pain) RF: 0 (DME) blood-glucose meter [Blood Glucose Monitoring] Kit See Rx Instructions .ROUTE .MEDSUPPLY Qty: 1 RF: 0 rivastigmine 4.6 mg/24 hr patch 24 hour 4.6 mg TRANSDERMA DAILY Qty: 30 RF: 5 lisinopril 10 mg tablet 10 mg PO DAILY@2099 RF: 0 furosemide 20 mg tablet 40 mg PO BID@0900,2100 RF: 0 insulin aspart U-100 [Novolog Flexpen U-100 Insulin] 100 unit/mL (3 mL) insulin pen 6 - 27 unit SUBCUT TID Qty: 15 RF: 2 methocarbamol 500 mg tablet 500 mg PO TID PRN (Reason: muscle pain) Qty: 90 RF: 2 hydroxyzine pamoate 25 mg capsule 25 mg PO BID PRN (Reason: anxiety) Qty: 60 RF: 2 albuterol sulfate [ProAir HFA] 90 mcg/actuation HFA aerosol inhaler 2 puff INHALATION Q4H PRN (Reason: shortness of breath or wheezing) Qty: 8.5 RF: 1 Tylenol Extra Strength 500 mg Tablet 1,000 mg PO BID@0900,2100 RF: 0 clindamycin phosphate 1 % lotion See Rx Instructions .ROUTE .COMPLEX RF: 0 fluoxetine 40 mg capsule 40 mg PO DAILY@2099 RF: 0 carvedilol 12.5 mg tablet 12.5 mg PO BID@00,2099 RF: 0 tramadol 50 mg tablet 50 mg PO BID@0900,2099 RF: 0 zonisamide 100 mg capsule 100 mg PO BID@00,2099 RF: 0 isosorbide mononitrate 60 mg tablet extended release 24 hr 60 mg PO DAILY@0900 RF: 0 Norvasc 10 mg tablet 10 mg PO DAILY@0900 RF: 0 Levemir FlexTouch U-100 Insuln 100 unit/mL (3 mL) insulin pen 125 unit SUBCUT DAILY@899 RF: 0 Eliquis 5 mg tablet 5 mg PO BID@899,2099 RF: 0 Discharge Orders: Discharge ED (Routine); Ordered 03/30/21 Ordered By: Loly Dasilva Referrals: Lorenzo Muller, [facility] [Primary Care Provider] - 1-3 days Discharge Diet: Advance as tolerated Discharge Activity: Resume usual activity Patient Instructions: Abdominal Pain (ED), Opioid Safety Coding Level of Care Code ED Nonfarm Animal Caretaker for Chg Fwd Exam Comprehensive Documented by User: Loly Dasilva MD 03/30/21 19:55 HPI - General Adult General: Chief complaint: General Medical Stated complaint: THINKS MAY HAVE BLOOD IN STOOL Time Seen by Provider: 03/30/21 16:35 PFSH ED PFSH: Medical History Atrial flutter Benign hypertension Chronic obstructive pulmonary disease, unspecified CKD (chronic kidney disease) COPD, moderate Coronary artery fistula Dietary noncompliance Diverticulosis Environmental and seasonal allergies Fibromyalgia Noncompliance with diabetes treatment Not consistent with diet Obesity Situational anxiety SOB (shortness of breath) Type 2 diabetes mellitus with diabetic chronic kidney disease Vitamin D deficiency Surgical History History of section 4 times History of cholecystectomy History of hysterectomy with BSO History of tonsillectomy Family History Brother Bleeding disorder CAD (coronary artery disease) Father CAD (coronary artery disease) Chronic kidney disease (CKD) Mother CAD (coronary artery disease) Cancer Diabetes Family/Other Cancer Other CHF (congestive heart failure) Heart disease Hypertension Denies family history of Clotting disorder Dementia Suicide Anesthesia complication Lung disease Stroke Social History Smoking and tobacco status: former smoker Second hand smoke exposure: No Smoking risk assessment/counseling performed?: No Alcohol intake: current Alcohol intake frequency: holidays/special occasions only Desire information about alcohol rehabilitation?: No Counseling given: No Desire information about substance/drug rehabilitation?: No Counseling given: No Adopted: No Caregiver/support person: No Lives independently: Yes Household members: family Marital status: Single service: No Current occupational status: unemployed and disabled History of recent travel: No Current gender identity: Female Course Vital Signs: Vital signs: Vital Signs Temperature 98.0 F 03/30/21 12:33 Pulse Rate 72 03/30/21 20:08 Respiratory Rate 17 03/30/21 20:08 Blood Pressure 156/69 03/30/21 20:08 Pulse Oximetry 95 03/30/21 20:08 MDM - General Adult MDM Narrative: Medical decision making narrative: Jennifer presents for generalized pain is been going on for quite some time. Patient's blood work here is all normal and CT of her chest abdomen pelvis shows no acute findings. She stable for discharge and to follow-up with Dr. Grant. She is return to the ER if worsening. She understands and agrees to plan. Lab Data: Labs: Lab Results 03/30/21 03/30/21 03/30/21 Range/Units 17:14 17:14 17:14 WBC 8.5 (4.0-10.0) 10^3/ uL RBC 4.48 (4.1-5.3) 10^6/u L Hgb 13.1 (11.5-15.3) g/dL Hct 39.6 (37.0-47.0) % MCV 88.4 (81-99) fL MCH 29.2 (28.0-34.0) pg MCHC 33.1 (30.0-36.0) g/dL RDW 13.2 (12.1-15.1) % Plt Count 264 (130-400) 10^3/c mm MPV 11.1 H (7.4-10.4) fL Neut % (Auto) 60.7 % Lymph % (Auto) 28.3 % [place] % (Auto) 6.6 % Eos % (Auto) 3.1 % Baso % (Auto) 0.8 % Neut # (Auto) 5.14 (1.8-7.7) 10^3/u L Lymph # (Auto) 2.4 (0.8-4.8) 10^3/u L [place] # (Auto) 0.6 (0.2-0.9) 10^3/u L Eos # (Auto) 0.3 (0.0-0.8) 10^3/u L Baso # (Auto) 0.1 (0.0-0.1) 10^3/u L Nucleated RBC % (a uto) 0 % Nucleated RBCs # 0.0 /100WBC PT 15.80 H (12.1-14.9) SECO NDS INR 1.23 H (0.8-1.2) APTT 30.7 (23.9-36.7) SECO NDS Sodium 136 (136-145) mmol/L Potassium 4.3 (3.5-5.1) mmol/L Chloride 96 L (98-107) mmol/L Carbon Dioxide 26 (22-29) mmol/L Anion Gap 18.3 (5-19) BUN 41 H (8-23) mg/dL Creatinine 1.4 H (0.5-0.9) mg/dL GFR Calculation 38.0 L (90-130) mL/min Glucose 282 H (65-115) mg/dL Calculated Osmolal ity 302 H (285-295) mOsm/k g Calcium 9.7 (8.5-10.5) mg/dL Total Bilirubin 0.4 (0.15-1.2) mg/dL AST 17 (0-32) U/L ALT 18 (0-33) U/L Alkaline Phosphata se 76 (35-105) IU/L Creatine Kinase (26-192) U/L Troponin T Baselin e (0-10) ng/L Troponin T 120 Min [place] (0-10) ng/L Delta Troponin T (0-10) ABS# Total Protein 7.4 (6.6-8.7) g/dL Albumin 3.9 (3.5-5.2) g/dL Globulin 3.5 (1.3-4.6) g/dL Lipase (13-60) U/L 03/30/21 03/30/21 03/30/21 Range/Units 17:14 17:14 19:05 WBC (4.0-10.0) 10^3/ uL RBC (4.1-5.3) 10^6/u L Hgb (11.5-15.3) g/dL Hct (37.0-47.0) % MCV (81-99) fL MCH (28.0-34.0) pg MCHC (30.0-36.0) g/dL RDW (12.1-15.1) % Plt Count (130-400) 10^3/c mm MPV (7.4-10.4) fL Neut % (Auto) % Lymph % (Auto) % [place] % (Auto) % Eos % (Auto) % Baso % (Auto) % Neut # (Auto) (1.8-7.7) 10^3/u L Lymph # (Auto) (0.8-4.8) 10^3/u L [place] # (Auto) (0.2-0.9) 10^3/u L Eos # (Auto) (0.0-0.8) 10^3/u L Baso # (Auto) (0.0-0.1) 10^3/u L Nucleated RBC % (a uto) % Nucleated RBCs # /100WBC PT (12.1-14.9) SECO NDS INR (0.8-1.2) APTT (23.9-36.7) SECO NDS Sodium (136-145) mmol/L Potassium (3.5-5.1) mmol/L Chloride (98-107) mmol/L Carbon Dioxide (22-29) mmol/L Anion Gap (5-19) BUN (8-23) mg/dL Creatinine (0.5-0.9) mg/dL GFR Calculation (90-130) mL/min Glucose (65-115) mg/dL Calculated Osmolal ity (285-295) mOsm/k g Calcium (8.5-10.5) mg/dL Total Bilirubin (0.15-1.2) mg/dL AST (0-32) U/L ALT (0-33) U/L Alkaline Phosphata se (35-105) IU/L Creatine Kinase 57 (26-192) U/L Troponin T Baselin e 20 H (0-10) ng/L Troponin T 120 Min [place] 19.58 H (0-10) ng/L Delta Troponin T -0.42 L (0-10) ABS# Total Protein (6.6-8.7) g/dL Albumin (3.5-5.2) g/dL Globulin (1.3-4.6) g/dL Lipase 52 (13-60) U/L Imaging Data^: CT Chest: Attestation: I personally reviewed and interpreted this imaging study as follows: Radiologist's impression: [address] [address] [address] Scan Report Signed Patient: Jennifer Novak Unit #: [id number] : 1955 Age/Sex: 65 / F ADM Date: 03/30/21 Loc: ER Room/Bed: Attending Dr: Ordering Provider/Ordering MD: Lazaro Moses DO Date of Service: 03/30/21 Procedure(s): CT angio chest w abd pel w con Accession Number(s): [id number] Report Number: [id number] PROCEDURE INFORMATION: Exam: CTA Chest With Contrast Exam date and time: 03/30/2021 6:13 PM Age: 65 years old Clinical indication: Abdominal tenderness; Shortness of breath; Prior surgery; Surgery type: , gb, appy; Additional info: Chest pain dyspnea TECHNIQUE: Imaging protocol: Computed tomographic angiography of the chest with contrast. 3D rendering (Not supervised by radiologist): MIP and/or 3D reconstructed images were created by the technologist. Radiation optimization: All CT scans at this facility use at least one of these dose optimization techniques: automated exposure control; mA and/or kV adjustment per patient size (includes targeted exams where dose is matched to clinical indication); or iterative reconstruction. Contrast material: VISI 320; Contrast volume: 95 ml; Contrast route: INTRAVENOUS (IV); COMPARISON: CTA Chest-Pulmonary Emb [id number] 02/26/2017 5:05 PM RADIATION DOSE METRICS: Total DLP (mGy-cm): 1929.22 FINDINGS: Pulmonary arteries: There is no evidence of filling defects within the pulmonary arterial circulation to suggest pulmonary embolism. Aorta: There is some atherosclerotic calcification in the descending thoracic aorta.There is no thoracic aortic aneurysm or dissection. Lungs: Unremarkable. No consolidation. No masses. Pleural spaces: Unremarkable. No pneumothorax. No pleural effusion. Heart: Unremarkable. No cardiomegaly. No pericardial effusion. Lymph nodes: There is no evidence of lymphadenopathy. Bones/joints: Unremarkable. No acute fracture. Soft tissues: Unremarkable. IMPRESSION: No evidence of pulmonary embolism. PROCEDURE INFORMATION: Exam: CT Abdomen And Pelvis With Contrast Exam date and time: 03/30/2021 6:13 PM Age: 65 years old Clinical indication: Abdominal tenderness; Shortness of breath; Prior surgery; Surgery type: , gb, appy; Additional info: Chest pain dyspnea TECHNIQUE: Imaging protocol: Computed tomography of the abdomen and pelvis with contrast. Radiation optimization: All CT scans at this facility use at least one of these dose optimization techniques: automated exposure control; mA and/or kV adjustment per patient size (includes targeted exams where dose is matched to clinical indication); or iterative reconstruction. Contrast material: VISI 320; Contrast volume: 95 ml; Contrast route: INTRAVENOUS (IV); COMPARISON: CTA Chest-Pulmonary Emb [id number] 02/26/2017 5:05 PM RADIATION DOSE METRICS: Total DLP (mGy-cm): 1929.22 FINDINGS: Liver: There is no focal abnormality within the liver. Gallbladder and bile ducts: There has been a cholecystectomy. Common bile duct is mildly prominent at 10 mm. This is not unusual post cholecystectomy. Pancreas: The pancreas is normal. Spleen: The spleen is normal. Adrenal glands: The adrenal glands are normal. Kidneys and ureters: The kidneys are normal. There is no evidence of hydronephrosis. There is no evidence of renal or ureteral calcifications. Stomach and bowel: There is no evidence of colitis/diverticulitis. Appendix: A normal appendix is identified. Intraperitoneal space: Unremarkable. No free air. No significant fluid collection. Vasculature: The aorta demonstrates moderate atherosclerotic calcification. There is no evidence of an abdominal aortic aneurysm. Incidental note is made of a circumaortic left renal vein. Lymph nodes: There is no evidence of lymphadenopathy. Urinary bladder: Unremarkable as visualized. Reproductive: There has been a hysterectomy. Bones/joints: The lumbar spine demonstrates moderate degenerative changes at multiple levels. The degenerative changes including central canal stenosis are not changed from 12/01/2016. There is mild scoliosis concave to the right. Soft tissues: Unremarkable. CT/CT angio chest w abd pel w con IMPRESSION: No acute finding. EKG Data^: EKG 1: Attestation: I personally reviewed and interpreted this EKG as follows: EKG interpretation date: 03/30/21 EKG interpretation time: 19:12 Interpretation: nsr hr 70 with no s tor t wave abnormalities qrs 166 qtc 477 Computer generated interpretation: Chest X-Ray 03/30/21 17:11 IMPRESSION: No acute findings. Chest/Abdomen/Pelvis CT 03/30/21 17:42 IMPRESSION: No acute finding. Radiation Dose CTDIVOL = (mGy): DLP = 1929.22~1929.22 (mGy-cm) Discharge Plan Discharge Patient Disposition: Home Clinical Impression: Atypical chest pain Abdominal pain Qualifiers: Abdominal location: generalized Qualified Code(s): R10.84 - Generalized abdominal pain Condition: Stable Prescriptions: No Action (DME) pen needle, diabetic [TechLITE Pen Needle] 31 gauge x 5/16 needle See Rx Instructions .ROUTE .MEDSUPPLY Qty: 1,200 RF: 0 nitroglycerin [Nitrostat] 0.4 mg tablet, sublingual 0.4 mg SUBLINGUAL Q5M PRN (Reason: Chest Pain) RF: 0 (DME) blood-glucose meter [Blood Glucose Monitoring] Kit See Rx Instructions .ROUTE .MEDSUPPLY Qty: 1 RF: 0 rivastigmine 4.6 mg/24 hr patch 24 hour 4.6 mg TRANSDERMA DAILY Qty: 30 RF: 5 lisinopril 10 mg tablet 10 mg PO DAILY@2099 RF: 0 furosemide 20 mg tablet 40 mg PO BID@899,2099 RF: 0 insulin aspart U-100 [Novolog Flexpen U-100 Insulin] 100 unit/mL (3 mL) insulin pen 6 - 27 unit SUBCUT TID Qty: 15 RF: 2 methocarbamol 500 mg tablet 500 mg PO TID PRN (Reason: muscle pain) Qty: 90 RF: 2 hydroxyzine pamoate 25 mg capsule 25 mg PO BID PRN (Reason: anxiety) Qty: 60 RF: 2 albuterol sulfate [ProAir HFA] 90 mcg/actuation HFA aerosol inhaler 2 puff INHALATION Q4H PRN (Reason: shortness of breath or wheezing) Qty: 8.5 RF: 1 Tylenol Extra Strength 500 mg Tablet 1,000 mg PO BID@899,2099 RF: 0 clindamycin phosphate 1 % lotion See Rx Instructions .ROUTE .COMPLEX RF: 0 fluoxetine 40 mg capsule 40 mg PO DAILY@2099 RF: 0 carvedilol 12.5 mg tablet 12.5 mg PO BID@899,2099 RF: 0 tramadol 50 mg tablet 50 mg PO BID@899,2099 RF: 0 zonisamide 100 mg capsule 100 mg PO BID@899,2099 RF: 0 isosorbide mononitrate 60 mg tablet extended release 24 hr 60 mg PO DAILY@899 RF: 0 Norvasc 10 mg tablet 10 mg PO DAILY@0900 RF: 0 Levemir FlexTouch U-100 Insuln 100 unit/mL (3 mL) insulin pen 125 unit SUBCUT DAILY@899 RF: 0 Eliquis 5 mg tablet 5 mg PO BID@899,2099 RF: 0 Discharge Orders: Discharge ED (Routine); Ordered 03/30/21 Ordered By: Loly Dasilva Referrals: Lorenzo Muller, [facility]ISTR[facility] [Primary Care Provider] - 1-3 days Discharge Diet: Advance as tolerated Discharge Activity: Resume usual activity Patient Instructions: Abdominal Pain (ED), Opioid Safety Coding Level of Care Code ED Nonfarm Animal Caretaker for Chg Fwd Exam Comprehensive
[2021-03-30 17:21] LABS: Basophils # 0.1 10^3/uL (0.0-0.1); Basophils % 0.8 %; Eosinophils # 0.3 10^3/uL (0.0-0.8); Eosinophils % 3.1 %; Hematocrit 39.6 % (37.0-47.0); Hemoglobin 13.1 g/dL (11.5-15.3); Lymphocytes # 2.4 10^3/uL (0.8-4.8); Lymphocytes % 28.3 %; Mean Corpuscular HGB Conc 33.1 g/dL (30.0-36.0); Mean Corpuscular Hemoglobin 29.2 pg (28.0-34.0); Mean Corpuscular Volume 88.4 fL (81-99); Mean Platelet Volume 11.1 fL (7.4-10.4); Monocytes # 0.6 10^3/uL (0.2-0.9); Monocytes % 6.6 %; Neutrophils # 5.14 10^3/uL (1.8-7.7); Neutrophils % 60.7 %; Nucleated Red Blood Cells % 0 %; Platelet Count 264 10^3/cmm (130-400); Red Blood Count 4.48 10^6/uL (4.1-5.3); Red Cell Distribution Width 13.2 % (12.1-15.1); White Blood Count 8.5 10^3/uL (4.0-10.0)
[2021-03-30 17:27] VITALS: PULSE 76; RESP 17; O2SAT 99
--- NOTE | 2021-03-30 17:42 | CTR_ITS ---
PROCEDURE INFORMATION: Exam: CTA Chest With Contrast Exam date and time: 03/30/2021 6:13 PM Age: 65 years old Clinical indication: Abdominal tenderness; Shortness of breath; Prior surgery; Surgery type: , gb, appy; Additional info: Chest pain dyspnea TECHNIQUE: Imaging protocol: Computed tomographic angiography of the chest with contrast. 3D rendering (Not supervised by radiologist): MIP and/or 3D reconstructed images were created by the technologist. Radiation optimization: All CT scans at this facility use at least one of these dose optimization techniques: automated exposure control; mA and/or kV adjustment per patient size (includes targeted exams where dose is matched to clinical indication); or iterative reconstruction. Contrast material: VISI 320; Contrast volume: 95 ml; Contrast route: INTRAVENOUS (IV); COMPARISON: CTA Chest-Pulmonary Emb [id number] 02/26/2017 5:05 PM RADIATION DOSE METRICS: Total DLP (mGy-cm): 1929.22 FINDINGS: Pulmonary arteries: There is no evidence of filling defects within the pulmonary arterial circulation to suggest pulmonary embolism. Aorta: There is some atherosclerotic calcification in the descending thoracic aorta.There is no thoracic aortic aneurysm or dissection. Lungs: Unremarkable. No consolidation. No masses. Pleural spaces: Unremarkable. No pneumothorax. No pleural effusion. Heart: Unremarkable. No cardiomegaly. No pericardial effusion. Lymph nodes: There is no evidence of lymphadenopathy. Bones/joints: Unremarkable. No acute fracture. Soft tissues: Unremarkable. IMPRESSION: No evidence of pulmonary embolism. PROCEDURE INFORMATION: Exam: CT Abdomen And Pelvis With Contrast Exam date and time: 03/30/2021 6:13 PM Age: 65 years old Clinical indication: Abdominal tenderness; Shortness of breath; Prior surgery; Surgery type: , gb, appy; Additional info: Chest pain dyspnea TECHNIQUE: Imaging protocol: Computed tomography of the abdomen and pelvis with contrast. Radiation optimization: All CT scans at this facility use at least one of these dose optimization techniques: automated exposure control; mA and/or kV adjustment per patient size (includes targeted exams where dose is matched to clinical indication); or iterative reconstruction. Contrast material: VISI 320; Contrast volume: 95 ml; Contrast route: INTRAVENOUS (IV); COMPARISON: CTA Chest-Pulmonary Emb [id number] 02/26/2017 5:05 PM RADIATION DOSE METRICS: Total DLP (mGy-cm): 1929.22 FINDINGS: Liver: There is no focal abnormality within the liver. Gallbladder and bile ducts: There has been a cholecystectomy. Common bile duct is mildly prominent at 10 mm. This is not unusual post cholecystectomy. Pancreas: The pancreas is normal. Spleen: The spleen is normal. Adrenal glands: The adrenal glands are normal. Kidneys and ureters: The kidneys are normal. There is no evidence of hydronephrosis. There is no evidence of renal or ureteral calcifications. Stomach and bowel: There is no evidence of colitis/diverticulitis. Appendix: A normal appendix is identified. Intraperitoneal space: Unremarkable. No free air. No significant fluid collection. Vasculature: The aorta demonstrates moderate atherosclerotic calcification. There is no evidence of an abdominal aortic aneurysm. Incidental note is made of a circumaortic left renal vein. Lymph nodes: There is no evidence of lymphadenopathy. Urinary bladder: Unremarkable as visualized. Reproductive: There has been a hysterectomy. Bones/joints: The lumbar spine demonstrates moderate degenerative changes at multiple levels. The degenerative changes including central canal stenosis are not changed from 12/01/2016. There is mild scoliosis concave to the right. Soft tissues: Unremarkable. CT/CT angio chest w abd pel w con IMPRESSION: No acute finding. Radiation Dose CTDIVOL = (mGy): DLP = 1929.22~1929.22 (mGy-cm)
[2021-03-30] MEDS: ondansetron 2 mg/ML SDV 2 mL 4 MG IVP (17:48)
[2021-03-30 17:52] LABS: INR 1.23 (0.8-1.2)
[2021-03-30 17:53] VITALS: RESP 18; O2SAT 99
[2021-03-30 17:53] LABS: Partial Thromboplastin Time 30.7 SECONDS (23.9-36.7)
[2021-03-30] MEDS: diphenhydrAMINE 50 mg/mL SDV 1mL 25 MG IVP (17:53)
[2021-03-30] MEDS: morphine 4 mg/mL SDV 1 mL IVP (17:53)
[2021-03-30 18:03] LABS: Creatine Phosphokinase 57 U/L (26-192); Lipase 52 U/L (13-60)
[2021-03-30 18:04] LABS: Alanine Aminotransferase 18 U/L (0-33); Albumin Level 3.9 g/dL (3.5-5.2); Alkaline Phosphatase 76 IU/L (35-105); Aspartate Amino Transferase 17 U/L (0-32); Blood Urea Nitrogen 41 mg/dL (8-23); Calcium 9.7 mg/dL (8.5-10.5); Carbon Dioxide 26 mmol/L (22-29); Chloride 96 mmol/L (98-107); Globulin 3.5 g/dL (1.3-4.6); Glucose 282 mg/dL (65-115); Osmolality Calculated 302 mOsm/kg (285-295); Sodium 136 mmol/L (136-145); Total Bilirubin 0.4 mg/dL (0.15-1.2); Total Protein 7.4 g/dL (6.6-8.7); Troponin(5th) Baseline 20 ng/L (0-10)
[2021-03-30 18:06] LABS: Anion Gap 18.3 (5-19); Potassium 4.3 mmol/L (3.5-5.1)
[2021-03-30] MEDS: iodixanol 320 mg/mL 100mL Btl IV (18:50)
--- NOTE | 2021-03-30 19:11 | ECG_ITS ---
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 Measurements Intervals [place] Rate: 70 P: 61 HI: 211 QRS: -83 QRSD: 166 T: 42 QT: 456 QTc: 495 Interpretive Statements SINUS RHYTHM WITH FIRST DEGREE AV BLOCK LEFT AXIS DEVIATION [QRS AXIS < -30] RIGHT BUNDLE BRANCH BLOCK [120+ ms QRS DURATION, UPRIGHT V1, 40+ ms S IN I/aVL/V4/V5/V6] Compared to ECG 03/30/2021 16:51:43 First degree AV block now present Electronically Signed On 03-31-2021 9:50:47 CDT by Renee Seay M.D. [id number]
[2021-03-30 19:39] LABS: Troponin 5 2HR 19.58 ng/L (0-10)
[2021-03-30 19:43] LABS: Troponin 5 2HR Delta -0.42 ABS# (0-10)
[2021-03-30 20:08] VITALS: BP 156/69; PULSE 72; RESP 17; O2SAT 95
== END 2021-03-30 20:15 | disposition home or self-care (01) ==
PROVIDERS: Family Medicine; Nurse Practitioner Family; Emergency Provider Emergency Medicine; PCP Nurse Practitioner
DX: R07.89 Other chest pain (principal); R10.84 Generalized abdominal pain; Z79.01 Long term (current) use of anticoagulants; Z79.4 Long term (current) use of insulin; J44.9 Chronic obstructive pulmonary disease, unspecified; I10 Essential (primary) hypertension; E11.9 Type 2 diabetes mellitus without complications; Z87.891 Personal history of nicotine dependence
CPT/HCPCS: 36415; 71045; 71275; 74177; 80053; 82550; 83690; 84484; 85025; 85610; 85730; 93005; 93970; 96374; 96375; 99284; J1200; J2270; J2405; Q9967

== ENCOUNTER → 2021-05-05 11:50 | Outpatient (BNVA) | payer MEDICAID, SELFPAY | PROVIDERS: PCP Nurse Practitioner; Visit Provider Nurse Practitioner | DX: E11.22 Type 2 diabetes mellitus with diabetic chronic kidney disease (principal); E55.9 Vitamin D deficiency, unspecified; M79.7 Fibromyalgia; J44.9 Chronic obstructive pulmonary disease, unspecified; I48.3 Typical atrial flutter; F32.9 Major depressive disorder, single episode, unspecified; I10 Essential (primary) hypertension; F41.8 Other specified anxiety disorders; I50.22 Chronic systolic (congestive) heart failure; Z79.4 Long term (current) use of insulin | CPT/HCPCS: 82043 ==

== ENCOUNTER → 2021-05-08 08:52 | Outpatient (BNVA) | payer MEDICAID, SELFPAY | PROVIDERS: PCP Nurse Practitioner; Visit Provider Nurse Practitioner | DX: E11.22 Type 2 diabetes mellitus with diabetic chronic kidney disease (principal); E55.9 Vitamin D deficiency, unspecified; I10 Essential (primary) hypertension; Z79.4 Long term (current) use of insulin | CPT/HCPCS: 80053; 80061; 82306; 83036; 83735; 85025 ==

== ENCOUNTER 2021-05-14 11:06 | Emergency (ER) | payer MEDICAID, SELFPAY ==
[2021-05-14 11:13] VITALS: BP 187/124; PULSE 88; RESP 22; TEMP 37.4; O2SAT 100; BMI 54.1
--- NOTE | 2021-05-14 11:24 | XR_ITS ---
WS: [id number] Portable AP upright chest, 05/14/2021 Clinical Data: Cough Comparison: Portable chest, 03/30/2021. Findings: No nodules, masses or effusions are seen. The heart is normal. The pulmonary vascularity is not increased. No pneumonia or pneumothorax is seen. Minimal patchy atelectasis is seen at the right cardiophrenic angle. There are monitor leads on the chest wall. XR/XR chest 1V portable [id number] Impression: Minimal atelectasis at right cardiophrenic angle.
--- NOTE | 2021-05-14 11:25 | ECG_ITS ---
[facility] Test Date: 2021-05-14 Pat Name: Jennifer Novak Department: Room: Gender: Female Critical Care Rn: : 1955 Requested By: Micheal Patrick Order Number: [id number] Cierra MD: Renee Seay M.D. Measurements Intervals [place] Rate: 90 P: 86 IA: 190 QRS: 266 QRSD: 142 T: 64 QT: 415 QTc: 510 Interpretive Statements SINUS RHYTHM MARKED RIGHT AXIS DEVIATION [QRS AXIS > 100] RIGHT BUNDLE BRANCH BLOCK [120+ ms QRS DURATION, UPRIGHT V1, 40+ ms S IN I/aVL/V4/V5/V6] PROBABLE SEPTAL MYOCARDIAL INFARCTION [35 ms Q WAVE IN V1/V2], OF INDETERMINATE AGE Compared to ECG 03/30/2021 19:12:52 Right-axis deviation now present Myocardial infarct finding now present First degree AV block no longer present Left-axis deviation no longer present Electronically Signed On 05-15-2021 14:17:37 CDT by Renee Seay M.D. [id number]
--- NOTE | 2021-05-14 11:28 | W.ED.CHESTPA ---
HPI - Chest Pain General: Chief Complaint: Chest Pain Stated Complaint: chest pain,abdomen pain Time Seen by Provider: 05/14/21 11:19 History of Present Illness: HPI narrative: This patient is a 66-year-old female who presents to the emergency department complaint abdominal cramping. Patient states this been going on for some time and was prescribed tramadol by PCP but does not take it. Patient states she has a long history of fibromyalgia. Patient states that she believes it might be her congestive heart failure. Patient does not appear to be short of breath. Patient appears to be anxious does not appear to be cardiac in nature. Patient states she is just prescribed a change in her bowel habits from normal to more like toothpaste. Will do medical evaluation treat as needed Associated symptoms: Reports abdominal pain; Deny dyspnea, fever(s), nausea, palpitations or vomiting Review of Systems General: Reports: 10 or more systems reviewed and unremarkable except in HPI and below Const: Denies: fever(s), chills, body aches or fatigue Eyes: Denies: change in vision or blurry vision ENMT: Denies: throat pain, hoarseness or mouth pain Card: Denies: chest pain, palpitations, irregular heart rhythm, edema, swelling of feet/ankles or lightheadedness Resp: Denies: dyspnea, productive cough, non-productive cough, wheezing or pain on inspiration GI: Reports: abdominal pain; Denies: nausea or vomiting : Denies: flank pain, difficulty voiding, dysuria, urinary frequency, urinary urgency or urinary hesitancy Musc: Denies: neck pain, back pain, extremity pain, extremity swelling, joint pain, joint swelling, joint redness, joint warmth or limited range of motion Skin/Breast: Denies: rash, pruritus, erythema or skin tenderness Neuro: Denies: headache(s), numbness in extremities or weakness in extremities Psych: Denies: anxiety or depression PFSH ED PFSH: Medical History Atrial flutter Benign hypertension Chronic obstructive pulmonary disease, unspecified CKD (chronic kidney disease) COPD, moderate Coronary artery fistula Dietary noncompliance Diverticulosis Environmental and seasonal allergies Fibromyalgia Noncompliance with diabetes treatment Not consistent with diet Obesity Reduced ejection fraction concurrent with and due to chronic heart failure Situational anxiety SOB (shortness of breath) Type 2 diabetes mellitus with diabetic chronic kidney disease Vitamin D deficiency Surgical History History of section 4 times History of cholecystectomy History of hysterectomy with BSO History of tonsillectomy Family History Brother Bleeding disorder CAD (coronary artery disease) Father CAD (coronary artery disease) Chronic kidney disease (CKD) Mother CAD (coronary artery disease) Cancer Diabetes Family/Other Cancer Other CHF (congestive heart failure) Heart disease Hypertension Denies family history of Clotting disorder Dementia Suicide Anesthesia complication Lung disease Stroke Social History Smoking and tobacco status: former smoker Second hand smoke exposure: No Smoking risk assessment/counseling performed?: No Alcohol intake: current Alcohol intake frequency: holidays/special occasions only Desire information about alcohol rehabilitation?: No Counseling given: No Desire information about substance/drug rehabilitation?: No Counseling given: No Adopted: No Caregiver/support person: No Lives independently: Yes Household members: family Marital status: Single service: No Current occupational status: unemployed and disabled History of recent travel: No Current gender identity: Female Physical Exam Const: COMMON NORMALS: no acute distress, average body habitus, patient oriented x3, no limitations, healthy appearing, alert and well nourished HENMT: COMMON NORMALS: normocephalic, atraumatic, hearing grossly normal bilaterally, external ears normal, EAC's normal, TM's normal bilaterally, Normal external nose present, Normal nasal mucous membranes and turbinates present, moist oral mucous membranes, oropharynx normal, dentition normal and gingiva normal HEAD & SCALP: normocephalic and atraumatic NOSE: Normal external nose present and Normal nasal mucous membranes and turbinates present EXTERNAL EAR: Yes external ears normal EXTERNAL AUDITORY CANAL: EAC's normal TYMPANIC MEMBRANE: TM's normal bilaterally Neck/C-Spine: COMMON NORMALS: full ROM, no lymphadenopathy, supple, no meningeal signs, no JVD, Thyroid normal and No carotid bruits THYROID: Thyroid normal Chest: COMMONS NORMALS: normal inspection of the chest, normal palpation of entire chest wall, normal inspection of the breasts and normal palpation of the breasts Breast/axilla inspection: Yes normal inspection of the breasts BREAST/AXILLA PALPATION: Yes normal palpation of the breasts Resp: COMMON NORMALS: normal respiratory effort, No retractions, No use of accessory muscles, clear to auscultation bilaterally and percussion normal AUSCULTATION: clear to auscultation bilaterally PERCUSSION: percussion normal Cardio: COMMON NORMALS: no JVD, regular rate, regular rhythm, S1 normal heart sound present, S2 normal heart sound present, No gallops present (Cardio), No clicks present (Cardio), No murmurs present (Cardio), No rub (Cardio) and Peripheral pulses 2+ throughout RATE: regular rate RHYTHM: regular rhythm HEART SOUNDS: S1 normal heart sound present and S2 normal heart sound present PERIPHERAL PULSES: Peripheral pulses 2+ throughout GI: COMMON NORMALS: Normal to inspection, nondistended, normoactive bowel sounds present, Soft to palpation, non-tender, No hepatosplenomegaly present, no masses and no bruits PALPATION: Yes Soft to palpation and Yes No hepatosplenomegaly present Back/Pelvis: COMMON NORMALS: thoracic and lumbar spine normal to inspection, no thoracic nor lumbar tenderness, thoraco-lumbar ROM normal and straight leg raise negative bilaterally Extremity: COMMON NORMALS: normal to inspection, full ROM, capillary refill normal, no joint enlargement, no clubbing, cyanosis or edema, no calf tenderness and no pedal edema Neuro: COMMON NORMALS: patient oriented x3 SENSORIUM/ORIENTATION: Yes alert MENINGEAL SIGNS: Yes no meningeal signs Course Reevaluation(s): Reevaluation #1: Negative evaluation thus far for any acute findings of hyperventilation syndrome. Patient does have a history of dementia. The x-ray showed the patient is profoundly constipated. Patient is a poor historian. Family members have requested multiple consultations conversations and are upset because patient has had multiple evaluations in the past and negative for any acute findings. They believe the patient's dementia is getting worse and the patient's anxiety is getting worse. They believe something else is going on with the patient other than what is being found out as nothing is normal for the patient. They are agreeable for psychiatry evaluation for possible [facility] placement if needed. Patient's anxiety is somewhat better after given 1 mg of Ativan. But otherwise no acute medical problems found at this time. We will continue to monitor. Time: 14:07 Reevaluation #2: Family members again at the room requesting to speak to me.. Be hypervigilant. So far in the emergency department negative evaluation for any acute findings of the patient's severe anxiety and hyperventilation. Constipation. I did discuss at length with patient's family about chronic conditions discussed at length with issues with [facility] placement and whether her chronic medical problems would prevent her from being placed in [facility]. I have paged psychiatry to see if they would come and evaluate the patient. Patient continues to complain of pain however does have a long history of fibromyalgia and a long history of chronic abdominal pain related to constipation. We will continue to monitor the patient family members requesting the patient have a colonoscopy to rule out colon cancer. Advised the patient's family that they could have a colonoscopy set up as an outpatient with her PCP or GI. That at this time had no emergent reason to order a colonoscopy for an acute diagnosis in the emergency department. They state understanding Time: 14:13 Reevaluation #3: Had another conversation with patient's daughter at the bedside she is very angry and agitated. She is threatening lawsuits if we cannot find out what is wrong with her mother with her issues that have been going on for months. I did discuss at length with the daughter about findings of negative nature thus far other than her significant hyperventilation and complaints of abdominal pain. Patient has had 2 mg of Ativan ordered and 2 mg of morphine. Advised that we were having psychiatry to see the patient. We also ordered to have pulmonology see the patient. They are aware that CTA of the abdomen and chest are ordered. Cardiac evaluation appears to be negative for any acute findings. Patient's family is very hypervigilant again threatening lawsuit if we cannot find anything wrong with the mother. This has been ongoing for several months. I believe that the patient's family is at exacerbating the situation with the mother. We will continue to monitor the patient. Patient's family makes threats and states that they will eden this hospital because they are known for killing patients. I asked nursing staff to have nurse automation manager come talk to the family . They have threatened to leave AGAINST MEDICAL ADVICE. Time: 14:40 Additional Reevaluation(s): Had a long discussion with multiple consultants about the patient states the patient can follow-up as an outpatient. Son is at the bedside. Patient appears to be calm and not upset at this time. States she is feeling much better. I did review with the chart with the patient's son shows patient has significant constipation and bloating. He states that he is sorry for the way his sister is acting that she always makes things worse. States that she gets the patient upset because she overreacts. I advised the patient son that everything was okay and that it appears that the patient has significant anxiety. Patient's son states that the patient also has significant dementia. So she can have a labile response to her surroundings. Otherwise negative exam in the emergency department. Patient will be discharged home to follow-up with outpatient psychiatry for her significant anxiety and dementia issues. Follow-up with her primary care physician for diabetes. Follow-up with GI as instructed for an outpatient EGD and colonoscopy. Return to the emergency department as needed. Consultations: Consultation #1: I discussed at length with Dr. Muller patient's primary care physician. She agrees with medical screening exam and recommends that we do not give the patient any pain medication. States she did write her prescription for tramadol last week for a refill. Patient however stated that she does not take it. PCP states the patient continues to requested at the clinic. She agrees with medical screen exam and evaluate for pancreatitis. Other than that continue current treatment at this time. May be agreeable to discharge with [facility] if no other findings of an acute nature. Time: 11:37 Consultation #2: I did discuss at length with Dr. Sorenson pulmonology. He agrees to come see the patient. He agrees with a CTA of the chest and abdomen pelvis at this time. He also agrees with to morphine and warm abdomen. Time: 14:38 Consultation #3: I have discussed with Dr. Vasquez psychiatry he will also do an evaluation of the patient for possible psychological concerns and significant anxiety and hyperventilation. Dr. Vasquez has seen the patient. Other than sleep deprivation some hyperventilation does not need any significant events at this time. Time: 14:50 Additional Consultation(s): 3689. Discussed with Dr. Gaitan GI specialist. We did review patient's current and past CT scans and reviewed patient's charts in detail. He recommends the patient be followed up as an outpatient for an outpatient EGD and colonoscopy. States no acute findings other than some constipation mild bloating and he agrees with [facility]. And [id number] laxatives. Vital Signs: Vital signs: Vital Signs Temperature 99.4 F 05/14/21 11:13 Pulse Rate 83 05/14/21 16:00 Respiratory Rate 21 H 05/14/21 16:00 Blood Pressure 202/67 05/14/21 16:00 Pulse Oximetry 99 05/14/21 16:00 MDM - Chest Pain MDM Narrative: Medical decision making narrative: Please see hospital course for full evaluation of this patient. Lab Data: Labs: Lab Results 05/14/21 05/14/21 05/14/21 Range/Units 11:26 12:24 12:24 WBC 9.8 (4.0-10.0) 10^3/ uL RBC 4.52 (4.1-5.3) 10^6/u L Hgb 13.3 (11.5-15.3) g/dL Hct 39.1 (37.0-47.0) % MCV 86.5 (81-99) fL MCH 29.4 (28.0-34.0) pg MCHC 34.0 (30.0-36.0) g/dL RDW 13.1 (12.1-15.1) % Plt Count 246 (130-400) 10^3/c mm MPV 11.0 H (7.4-10.4) fL Neut % (Auto) 65.5 % Lymph % (Auto) 23.5 % Chase % (Auto) 6.1 % Eos % (Auto) 3.5 % Baso % (Auto) 0.9 % Neut # (Auto) 6.39 (1.8-7.7) 10^3/u L Lymph # (Auto) 2.3 (0.8-4.8) 10^3/u L Chase # (Auto) 0.6 (0.2-0.9) 10^3/u L Eos # (Auto) 0.3 (0.0-0.8) 10^3/u L Baso # (Auto) 0.1 (0.0-0.1) 10^3/u L Nucleated RBC % (a uto) 0 % Nucleated RBCs # 0.0 /100WBC PT (12.1-14.9) SECO NDS INR (0.8-1.2) APTT (23.9-36.7) SECO NDS Specimen Type Arterial Sample Site Radial, left ABG pH 7.62 H* (7.35-7.45) ABG pCO2 27.3 L (35-45) mmHg ABG pO2 129.0 H (80.0-100.0) mmH g ABG HCO3 27.8 H (22-26) mmol/L ABG O2 Saturation 100.0 ABG Base Excess 7.0 H (-2.0-2.0) mmol/ L Sharad Test Pos A-a O2 Gradient Not Reportable Hematocrit 37.7 (37-47) % Hgb O2 Saturation 98.1 (95-100) % Carboxyhemoglobin 1.1 (0.4-20.1) %THgb Methemoglobin 0.8 (0.4-1.5) % Total Hemoglobin 12.3 (12-16) g/dL Sodium 137.0 Cancelled (131-143) mmol/L Potassium 4.3 Cancelled (3.5-5.0) mmol/L Glucose 348.0 H Cancelled (70-115) mg/dL Ionized Calcium 1.2 (1.1-1.4) mmol/L O2 Delivery Device Oxy mask O2 Liters/Min 4.0 % FiO2 % [employer] ID Cak Chloride Cancelled Carbon Dioxide Cancelled Anion Gap Cancelled BUN Cancelled Creatinine Cancelled GFR Calculation Cancelled Calculated Osmolal ity Cancelled Calcium Cancelled Total Bilirubin Cancelled AST Cancelled ALT Cancelled Alkaline Phosphata se Cancelled Troponin T Baselin e Troponin T 120 Min [place] Troponin T NT-Pro-B Natriuret Pep Cancelled Total Protein Cancelled Albumin Cancelled Globulin Cancelled Lipase Cancelled Urine Color (Yellow) Urine Appearance (CLEAR) Urine pH (5-7) Ur Specific Gravit y (1.005-1.030) Urine Protein (Negative) Urine Glucose (UA) (Normal) Urine Ketones (Negative) Urine Blood (Negative) Urine Nitrate (Negative) Urine Bilirubin (Negative) Prot Sulfosalicyli c Acd (Negative) Urine Urobilinogen (Negative) mg/dL Ur Leukocyte Nyla ase (Negative) Urine RBC (0-2) /hpf Urine WBC (0-5) /hpf Ur Squamous Epith Cells (0-5) /hpf Amorphous Sediment Urine Bacteria (NONE) /hpf 06/24/21 06/24/21 06/24/21 Range/Units 12:24 12:48 13:20 WBC (4.0-10.0) 10^3/ uL RBC (4.1-5.3) 10^6/u L Hgb (11.5-15.3) g/dL Hct (37.0-47.0) % MCV (81-99) fL MCH (28.0-34.0) pg MCHC (30.0-36.0) g/dL RDW (12.1-15.1) % Plt Count (130-400) 10^3/c mm MPV (7.4-10.4) fL Neut % (Auto) % Lymph % (Auto) % Chase % (Auto) % Eos % (Auto) % Baso % (Auto) % Neut # (Auto) (1.8-7.7) 10^3/u L Lymph # (Auto) (0.8-4.8) 10^3/u L Chase # (Auto) (0.2-0.9) 10^3/u L Eos # (Auto) (0.0-0.8) 10^3/u L Baso # (Auto) (0.0-0.1) 10^3/u L Nucleated RBC % (a uto) % Nucleated RBCs # /100WBC PT 14.80 (12.1-14.9) SECO NDS INR 1.12 (0.8-1.2) APTT 25.3 (23.9-36.7) SECO NDS Specimen Type Sample Site ABG pH (7.35-7.45) ABG pCO2 (35-45) mmHg ABG pO2 (80.0-100.0) mmH g ABG HCO3 (22-26) mmol/L ABG O2 Saturation ABG Base Excess (-2.0-2.0) mmol/ L Sharad Test A-a O2 Gradient Hematocrit (37-47) % Hgb O2 Saturation (95-100) % Carboxyhemoglobin (0.4-20.1) %THgb Methemoglobin (0.4-1.5) % Total Hemoglobin (12-16) g/dL Sodium (131-143) mmol/L Potassium (3.5-5.0) mmol/L Glucose (70-115) mg/dL Ionized Calcium (1.1-1.4) mmol/L O2 Delivery Device O2 Liters/Min % FiO2 % [employer] ID Chloride Carbon Dioxide Anion Gap BUN Creatinine GFR Calculation Calculated Osmolal ity Calcium Total Bilirubin AST ALT Alkaline Phosphata se Troponin T Baselin e Cancelled Troponin T 120 Min [place] Troponin T NT-Pro-B Natriuret Pep Total Protein Albumin Globulin Lipase Urine Color Yellow (Yellow) Urine Appearance Clear (CLEAR) Urine pH 8 H (5-7) Ur Specific Gravit y 1.010 (1.005-1.030) Urine Protein Trace (Negative) Urine Glucose (UA) 1+ (Normal) Urine Ketones Negative (Negative) Urine Blood Neg (Negative) Urine Nitrate Negative (Negative) Urine Bilirubin Neg (Negative) Prot Sulfosalicyli c Acd Positive (Negative) Urine Urobilinogen Norm (Negative) mg/dL Ur Leukocyte Nyla ase Negative (Negative) Urine RBC 0-4 H (0-2) /hpf Urine WBC Rare (0-5) /hpf Ur Squamous Epith Cells Rare (0-5) /hpf Amorphous Sediment Not Reportable Urine Bacteria Trace (NONE) /hpf 05/14/21 05/14/21 05/14/21 Range/Units 13:20 13:20 14:17 WBC (4.0-10.0) 10^3/ uL RBC (4.1-5.3) 10^6/u L Hgb (11.5-15.3) g/dL Hct (37.0-47.0) % MCV (81-99) fL MCH (28.0-34.0) pg MCHC (30.0-36.0) g/dL RDW (12.1-15.1) % Plt Count (130-400) 10^3/c mm MPV (7.4-10.4) fL Neut % (Auto) % Lymph % (Auto) % Chase % (Auto) % Eos % (Auto) % Baso % (Auto) % Neut # (Auto) (1.8-7.7) 10^3/u L Lymph # (Auto) (0.8-4.8) 10^3/u L Chase # (Auto) (0.2-0.9) 10^3/u L Eos # (Auto) (0.0-0.8) 10^3/u L Baso # (Auto) (0.0-0.1) 10^3/u L Nucleated RBC % (a uto) % Nucleated RBCs # /100WBC PT (12.1-14.9) SECO NDS INR (0.8-1.2) APTT (23.9-36.7) SECO NDS Specimen Type Arterial Sample Site Radial, right ABG pH 7.66 H* (7.35-7.45) ABG pCO2 23.0 L (35-45) mmHg ABG pO2 108.0 H (80.0-100.0) mmH g ABG HCO3 26.0 (22-26) mmol/L ABG O2 Saturation 99.7 ABG Base Excess 6.5 H (-2.0-2.0) mmol/ L Sharad Test Pos A-a O2 Gradient 7.9 Hematocrit 37.9 (37-47) % Hgb O2 Saturation 97.9 (95-100) % Carboxyhemoglobin 0.9 (0.4-20.1) %THgb Methemoglobin 0.9 (0.4-1.5) % Total Hemoglobin 12.4 (12-16) g/dL Sodium 133 L 136.0 (131-143) mmol/L Potassium 4.3 3.9 (3.5-5.0) mmol/L Glucose 340 H 353.0 H (70-115) mg/dL Ionized Calcium 1.2 (1.1-1.4) mmol/L O2 Delivery Device Nc O2 Liters/Min 2.0 % FiO2 28.0 % [employer] ID Amh Chloride 94 L Carbon Dioxide 25 Anion Gap 18.3 BUN 36 H Creatinine 1.5 H GFR Calculation 35.0 L Calculated Osmolal ity 298 H Calcium 9.9 Total Bilirubin 0.4 AST 15 ALT 16 Alkaline Phosphata se 99 Troponin T Baselin e 15 H Troponin T 120 Min [place] Troponin T NT-Pro-B Natriuret Pep 103 Total Protein 7.1 Albumin 3.6 Globulin 3.5 Lipase 59 Urine Color (Yellow) Urine Appearance (CLEAR) Urine pH (5-7) Ur Specific Gravit y (1.005-1.030) Urine Protein (Negative) Urine Glucose (UA) (Normal) Urine Ketones (Negative) Urine Blood (Negative) Urine Nitrate (Negative) Urine Bilirubin (Negative) Prot Sulfosalicyli c Acd (Negative) Urine Urobilinogen (Negative) mg/dL Ur Leukocyte Nyla ase (Negative) Urine RBC (0-2) /hpf Urine WBC (0-5) /hpf Ur Squamous Epith Cells (0-5) /hpf Amorphous Sediment Urine Bacteria (NONE) /hpf 05/14/21 Range/Units 15:30 WBC (4.0-10.0) 10^3/ uL RBC (4.1-5.3) 10^6/u L Hgb (11.5-15.3) g/dL Hct (37.0-47.0) % MCV (81-99) fL MCH (28.0-34.0) pg MCHC (30.0-36.0) g/dL RDW (12.1-15.1) % Plt Count (130-400) 10^3/c mm MPV (7.4-10.4) fL Neut % (Auto) % Lymph % (Auto) % Chase % (Auto) % Eos % (Auto) % Baso % (Auto) % Neut # (Auto) (1.8-7.7) 10^3/u L Lymph # (Auto) (0.8-4.8) 10^3/u L Chase # (Auto) (0.2-0.9) 10^3/u L Eos # (Auto) (0.0-0.8) 10^3/u L Baso # (Auto) (0.0-0.1) 10^3/u L Nucleated RBC % (a uto) % Nucleated RBCs # /100WBC PT (12.1-14.9) SECO NDS INR (0.8-1.2) APTT (23.9-36.7) SECO NDS Specimen Type Sample Site ABG pH (7.35-7.45) ABG pCO2 (35-45) mmHg ABG pO2 (80.0-100.0) mmH g ABG HCO3 (22-26) mmol/L ABG O2 Saturation ABG Base Excess (-2.0-2.0) mmol/ L Sharad Test A-a O2 Gradient Hematocrit (37-47) % Hgb O2 Saturation (95-100) % Carboxyhemoglobin (0.4-20.1) %THgb Methemoglobin (0.4-1.5) % Total Hemoglobin (12-16) g/dL Sodium (131-143) mmol/L Potassium (3.5-5.0) mmol/L Glucose (70-115) mg/dL Ionized Calcium (1.1-1.4) mmol/L O2 Delivery Device O2 Liters/Min % FiO2 % [employer] ID Chloride Carbon Dioxide Anion Gap BUN Creatinine GFR Calculation Calculated Osmolal ity Calcium Total Bilirubin AST ALT Alkaline Phosphata se Troponin T Baselin e Troponin T 120 Min [place] Cancelled [place] Troponin T Cancelled NT-Pro-B Natriuret Pep Total Protein Albumin Globulin Lipase Urine Color (Yellow) Urine Appearance (CLEAR) Urine pH (5-7) Ur Specific Gravit y (1.005-1.030) Urine Protein (Negative) Urine Glucose (UA) (Normal) Urine Ketones (Negative) Urine Blood (Negative) Urine Nitrate (Negative) Urine Bilirubin (Negative) Prot Sulfosalicyli c Acd (Negative) Urine Urobilinogen (Negative) mg/dL Ur Leukocyte Nyla ase (Negative) Urine RBC (0-2) /hpf Urine WBC (0-5) /hpf Ur Squamous Epith Cells (0-5) /hpf Amorphous Sediment Urine Bacteria (NONE) /hpf Imaging Data^: CXR: Attestation: I personally reviewed and interpreted this imaging study as follows: Radiologist's impression: Findings: No nodules, masses or effusions are seen. The heart is normal. The pulmonary vascularity is not increased. No pneumonia or pneumothorax is seen. Minimal patchy atelectasis is seen at the right cardiophrenic angle. There are monitor leads on the chest wall. XR/XR chest 1V portable [id number] Impression: Minimal atelectasis at right cardiophrenic angle. KUB: Attestation: I personally reviewed and interpreted this imaging study as follows: Radiologist's impression: Findings: No free air is seen beneath the diaphragms. No abnormal intra-abdominal masses or calcifications are seen. There is a large amount of fecal material throughout the colon. There are clips in the right upper quadrant from a cholecystectomy. Monitor leads are on the chest wall. The bladder is full. There is a levoscoliosis of the lumbar spine with osteoarthritis. XR/XR abdomen min 2V [id number] Impression: Large amount of fecal material in the colon. CT Head: Attestation: I personally reviewed and interpreted this imaging study as follows: Radiologist's impression: IMPRESSION: Negative head CT CT Chest /Abd/pelvis: Attestation: I personally reviewed and interpreted this imaging study as follows: Radiologist's impression: COMPARISON: 03/30/2021 Chest CTA: Adequate but limited opacification of the pulmonary arteries. Into the segmental branches the opacification becomes limited in part due to body habitus. No pulmonary embolism. Heart size is normal. Mild atherosclerosis aorta with no aneurysm. Heart size is normal. Very mild bilateral pleural thickening. No pneumonia or mass. No adenopathy. Mild esophageal wall thickening and small hiatal hernia. Abdomen CT: Enlarged liver extends across the midline. Spleen is top normal size. Prior cholecystectomy. Normal bile ducts. Normal appendix and adrenal glands. Kidneys are normal size with no perinephric stranding or obstruction. Mild atherosclerosis abdominal aorta. No free fluid or adenopathy. No GI tract obstruction. The appendix is normal. Pelvic CT: Prior hysterectomy. No free fluid or adenopathy. Urinary bladder is well distended. Thoracolumbar scoliosis. Degenerative spondylitic changes in the lumbar spine. CT/CT angio chest w abd pel w con IMPRESSION: 1. No pulmonary embolism through the segmental branches. Otherwise limited opacification of the pulmonary arteries. 2. Atherosclerosis thoracic and abdominal aortas. 3. Mild esophageal wall thickening may be esophagitis from reflux. 4. No adenopathy or pneumonia. 5. Normal appendix. 6. Prior cholecystectomy. EKG Data^: EKG 1: Attestation: I personally reviewed and interpreted this EKG as follows: EKG interpretation date: 05/14/21 EKG interpretation time: 11:23 Prior EKG tracings: available for review Interpretation: Sinus rhythm with right axis deviation right bundle branch block heart rate 90 nonspecific EKG ABG Data^: ABG Interpretation 1: ABG results: pH 7.62P O2 129 PCO2 27. Attestation: I personally reviewed and interpreted this ABG as follows: Interpretation: Respiratory alkalosis related to anxiety and hyperventilation. Discharge Plan Discharge Patient Disposition: Home Clinical Impression: Situational anxiety, Mild cognitive impairment with memory loss, Acute hyperventilation, Abdominal cramping, Constipation, Abdominal bloating Condition: Stable Prescriptions: New dicyclomine 20 mg tablet 20 mg PO TID Qty: 30 RF: 0 No Action (DME) pen needle, diabetic [TechLITE Pen Needle] 31 gauge x 5/16 needle See Rx Instructions .ROUTE .MEDSUPPLY Qty: 1,200 RF: 0 nitroglycerin [Nitrostat] 0.4 mg tablet, sublingual 0.4 mg SUBLINGUAL Q5M PRN (Reason: Chest Pain) RF: 0 (DME) blood-glucose meter [Blood Glucose Monitoring] Kit See Rx Instructions .ROUTE .MEDSUPPLY Qty: 1 RF: 0 Tylenol Extra Strength 325 mg tablet 325 mg PO Q6H Qty: 90 RF: 2 albuterol sulfate [ProAir HFA] 90 mcg/actuation HFA aerosol inhaler 2 puff INHALATION Q4H PRN (Reason: shortness of breath or wheezing) Qty: 8.5 RF: 2 Norvasc 10 mg tablet 10 mg PO DAILY@0900 Qty: 30 RF: 2 Eliquis 5 mg tablet 5 mg PO BID@0900,2100 Qty: 60 RF: 2 fluoxetine 40 mg capsule 40 mg PO DAILY@2100 Qty: 30 RF: 2 furosemide 20 mg tablet 40 mg PO BID@0900,2100 PRN (Reason: edema) Qty: 60 RF: 2 hydroxyzine pamoate 25 mg capsule 25 mg PO BID PRN (Reason: anxiety) Qty: 60 RF: 2 methocarbamol 750 mg tablet 750 mg PO TID Qty: 90 RF: 2 Entresto 24-26 mg tablet 1 tab PO BID Qty: 60 RF: 0 isosorbide mononitrate 60 mg tablet extended release 24 hr 60 mg PO DAILY@0900 Qty: 30 RF: 0 methocarbamol 500 mg tablet 500 mg PO TID PRN (Reason: Muscle Spasm) RF: 0 Ultram 50 mg Tablet 50 mg PO TID PRN (Reason: Pain) RF: 0 Benadryl 25 mg Capsule 25 - 50 mg PO PRN RF: 0 Vitamin D3 125 mcg (5,000 unit) Tablet 125 mcg PO DAILY RF: 0 Vitamin B-12 1 tab PO DAILY RF: 0 Novolog Flexpen U-100 Insulin 100 unit/mL (3 mL) insulin pen 6 - 27 unit SUBCUT TID RF: 0 Levemir FlexTouch U-100 Insuln 100 unit/mL (3 mL) insulin pen 125 unit SUBCUT QAM RF: 0 clindamycin phosphate 1 % lotion See Rx Instructions .ROUTE .COMPLEX RF: 0 carvedilol 12.5 mg tablet 12.5 mg PO BID@0900,2100 RF: 0 zonisamide 100 mg capsule 100 mg PO BID@0900,2100 RF: 0 Discharge Orders: Discharge ED (Routine); Ordered 05/14/21 Ordered By: Micheal Patrick Referrals: Lorenzo Muller, AIRPORT ENGINEER-C [Primary Care Provider] - Discharge Diet: Diabetic Discharge Activity: Resume usual activity Patient Instructions: Opioid Safety Activity Restrictions/Additional Instructions: Encourage p.o. fluids. Take MiraLAX [id number]. Take Senokot 8.6 mg [id number] once a day. Use the following instructions. Mix 4 ounces of prune juice with 2 ounces of milk of magnesium and 2 tablespoons of salted butter. Heat and microwave for 15 to 20 seconds.*And drink warm do not serve hot. Should drink this twice a day until relief of constipation. Hoayl as instructed for abdominal bloating and cramping. Follow-up with Dr. Gaitan GI for outpatient EGD and colonoscopy. Follow-up with your PCP to discuss issues with anxiety and dementia and diabetes. May need outpatient versus referral to behavioral health for assistance. Continue all home medications. Patient is discharged home with family Coding Level of Care Code ED Conformal Pad Former for Chg Fwd Exam Comprehensive
[2021-05-14 11:37] LABS: ABG PCO2 27.3 mmHg (35-45); Arterial Blood Gas Hematocrit 37.7 % (37-47); Blood Gas Allen Test Pos; Blood Gas Operator Identificat CAK; Blood Gas Sample Site Radial, left; Blood Gas Sample Type Arterial; Carboxyhemoglobin 1.1 %THgb (0.4-20.1); HCO3 ABG 27.8 mmol/L (22-26); HGB O2 Sat 98.1 % (95-100); Ionized Calcium Level - ABG 1.2 mmol/L (1.1-1.4); Methemoglobin 0.8 % (0.4-1.5); Oxygen Device OXY MASK; Potassium Level - ABG 4.3 mmol/L (3.5-5.0); Total Hemoglobin 12.3 g/dL (12-16)
[2021-05-14 11:38] LABS: ABG PH Result 7.62 (7.35-7.45)
[2021-05-14 12:32] LABS: Basophils # 0.1 10^3/uL (0.0-0.1); Basophils % 0.9 %; Eosinophils # 0.3 10^3/uL (0.0-0.8); Eosinophils % 3.5 %; Hematocrit 39.1 % (37.0-47.0); Hemoglobin 13.3 g/dL (11.5-15.3); Lymphocytes # 2.3 10^3/uL (0.8-4.8); Lymphocytes % 23.5 %; Mean Corpuscular Hemoglobin 29.4 pg (28.0-34.0); Mean Corpuscular Volume 86.5 fL (81-99); Monocytes # 0.6 10^3/uL (0.2-0.9); Monocytes % 6.1 %; Neutrophils # 6.39 10^3/uL (1.8-7.7); Neutrophils % 65.5 %; Nucleated Red Blood Cells % 0 %; Platelet Count 246 10^3/cmm (130-400); Red Blood Count 4.52 10^6/uL (4.1-5.3); Red Cell Distribution Width 13.1 % (12.1-15.1); White Blood Count 9.8 10^3/uL (4.0-10.0)
--- NOTE | 2021-05-14 12:39 | CT_ITS ---
WS: [id number] CT HEAD NONCONTRAST HISTORY: HEADACHE TECHNIQUE: Contiguous axial imaging performed through the brain in 2.5 mm imaging. Bone and soft tiss ue windows. Sagittal and coronal reformats reviewed. All CT scans at [facility] use at ast one of these dose optimization techniques: automated exposure control; mA and/or kV adjustment pe r patient size (includes targeted exams where dose is matched to clinical indication); or iterative r econstruction. DLP: 981.7 mGy.cm COMPARISON: 08/13/2020 No acute intracranial hemorrhage, midline shift or mass effect. No atrophy or prior infarcts or herniation. Ventricles: Normal size with no hydrocephalus. Paranasal sinuses: Mild mucoperiosteal thickening in the maxillary sinuses. Mastoid air cells: Well pneumatized. Calvarium and scalp: Skull is intact with no soft tissue edema or swelling. CT/CT head wo con* [id number] IMPRESSION: Negative head CT.
--- NOTE | 2021-05-14 12:39 | XR_ITS ---
WS: [id number] Abdomen series, Flat and upright 05/14/2021 Clinical Data: Abd pain Comparison: None. Findings: No free air is seen beneath the diaphragms. No abnormal intra-abdominal masses or calcifica tions are seen. There is a large amount of fecal material throughout the colon. There are clips in th e right upper quadrant from a cholecystectomy. Monitor leads are on the chest wall. The bladder is fu ll. There is a levoscoliosis of the lumbar spine with osteoarthritis. XR/XR abdomen min 2V 62999 Impression: Large amount of fecal material in the colon.
[2021-05-14] MEDS: LORazepam 2 mg/mL INJ 1 mL 1 MG IVP ×2 (12:55→14:50)
[2021-05-14 13:04] LABS: Urine Appearance Clear (CLEAR); Urine Color Yellow (Yellow)
[2021-05-14 13:05] LABS: Add Urine Microscopic? YES; Bilirubin Urine Neg (Negative); Blood Urine Neg (Negative); Glucose Urine UA 1+ (Normal); Ketones Urine Negative (Negative); Leukocyte Esterase Urine Negative (Negative); Nitrate Urine Negative (Negative); Protein Urine Trace (Negative); Sulfosalicylic Acid Urine Positive (Negative); Urobilinogen Urine Norm (Negative); pH Urine 8 (5-7)
[2021-05-14 13:10] LABS: Bacteria Urine TRACE /hpf; RBC Urine 0-4 /hpf (0-2); Squamous Epithelial Cell Urine RARE /hpf (0-5); WBC Urine RARE /hpf (0-5)
[2021-05-14 13:42] LABS: INR 1.12 (0.8-1.2); Partial Thromboplastin Time 25.3 SECONDS (23.9-36.7)
[2021-05-14 13:56] LABS: Troponin(5th) Baseline 15 ng/L (0-10)
[2021-05-14 14:05] LABS: Alanine Aminotransferase 16 U/L (0-33); Albumin Level 3.6 g/dL (3.5-5.2); Alkaline Phosphatase 99 IU/L (35-105); Anion Gap 18.3 (5-19); Aspartate Amino Transferase 15 U/L (0-32); Blood Urea Nitrogen 36 mg/dL (8-23); Calcium 9.9 mg/dL (8.5-10.5); Carbon Dioxide 25 mmol/L (22-29); Chloride 94 mmol/L (98-107); Globulin 3.5 g/dL (1.3-4.6); Glucose 340 mg/dL (65-115); Lipase 59 U/L (13-60); NT Pro B Type Natriuretic Pept 103 pg/mL (0-125); Osmolality Calculated 298 mOsm/kg (285-295); Potassium 4.3 mmol/L (3.5-5.1); Sodium 133 mmol/L (136-145); Total Bilirubin 0.4 mg/dL (0.15-1.2); Total Protein 7.1 g/dL (6.6-8.7)
[2021-05-14 14:28] LABS: Alveolar-Arterial Oxygen Gradi 7.9 mmHg (5-10); Arterial Blood Gas Hematocrit 37.9 % (37-47); Base Excess ABG 6.5 mmol/L (-2.0-2.0); Blood Gas Allen Test Pos; Blood Gas Operator Identificat AMH; Blood Gas Sample Site Radial, right; Blood Gas Sample Type Arterial; Carboxyhemoglobin 0.9 %THgb (0.4-20.1); HGB O2 Sat 97.9 % (95-100); Ionized Calcium Level - ABG 1.2 mmol/L (1.1-1.4); Methemoglobin 0.9 % (0.4-1.5); Oxygen Device NC; Oxygen Saturation ABG 99.7; Potassium Level - ABG 3.9 mmol/L (3.5-5.0); Total Hemoglobin 12.4 g/dL (12-16)
[2021-05-14 14:30] LABS: ABG PH Result 7.66 (7.35-7.45)
--- NOTE | 2021-05-14 14:33 | CT_ITS ---
WS: [id number] CTA CHEST WITH CT ABDOMEN AND PELVIS. HISTORY: Elevated d-dimer, chest pain and short of breath. TECHNIQUE: CT angiogram is performed through the chest. Additional imaging is performed through the a bdomen and pelvis with IV contrast. Sagittal and coronal reformats have been submitted. MIP imaging also reviewed. All CT scans at [facility] use at least one of these dose optimization tech niques: automated exposure control; mA and/or kV adjustment per patient size (includes targeted exams where dose is matched to clinical indication); or iterative reconstruction. Contrast: Visipaque 95 cc IV. DLP: 2858.6 mGy.cm COMPARISON: 03/30/2021 Chest CTA: Adequate but limited opacification of the pulmonary arteries. Into the segmental branches the opacification becomes limited in part due to body habitus. No pulmonary embolism. Heart size is n ormal. Mild atherosclerosis aorta with no aneurysm. Heart size is normal. Very mild bilateral pleural thickening. No pneumonia or mass. No adenopathy. Mild esophageal wall thickening and small hiatal he rnia. Abdomen CT: Enlarged liver extends across the midline. Spleen is top normal size. Prior cholecystecto my. Normal bile ducts. Normal appendix and adrenal glands. Kidneys are normal size with no perinephri c stranding or obstruction. Mild atherosclerosis abdominal aorta. No free fluid or adenopathy. No GI tract obstruction. The appendix is normal. Pelvic CT: Prior hysterectomy. No free fluid or adenopathy. Urinary bladder is well distended. Thoracolumbar scoliosis. Degenerative spondylitic changes in the lumbar spine. CT/CT angio chest w abd pel w con IMPRESSION: 1. No pulmonary embolism through the segmental branches. Otherwise limited opa cification of the pulmonary arteries. 2. Atherosclerosis thoracic and abdominal aortas. 3. Mild esophageal wall thickening may be esophagitis from reflux. 4. No adenopathy or pneumonia. 5. Normal appendix. 6. Prior cholecystectomy.
[2021-05-14 14:50] VITALS: RESP 18
[2021-05-14] MEDS: morphine 4 mg/mL SDV 1 mL 2 MG IVP (14:50)
[2021-05-14] MEDS: iodixanol 320 mg/mL 100mL Btl IV (15:24)
[2021-05-14 15:35] VITALS: BP 166/80; PULSE 83; RESP 18; O2SAT 100
--- NOTE | 2021-05-14 15:57 | PC.NURSE ---
after giving 1 mg ativan iv patient was in the room dozing lightly at this time daughter was not in room but she stated to doctor the ativan did not work. after ativan i mg and 2 mg morphine equine pharmacology technician was in room and patient stated that i did not give her anything bc she did not taste it
[2021-05-14 16:00] VITALS: BP 202/67; PULSE 83; RESP 21; O2SAT 99
--- NOTE | 2021-05-14 17:25 | ECG_ITS ---
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 Measurements Intervals [place] Rate: 85 P: -16 [place]: 191 QRS: 162 QRSD: 142 T: 8 QT: 431 QTc: 515 Interpretive Statements SINUS RHYTHM MARKED RIGHT AXIS DEVIATION [QRS AXIS > 100] RIGHT BUNDLE BRANCH BLOCK [120+ ms QRS DURATION, UPRIGHT V1, 40+ ms S IN I/aVL/V4/V5/V6] Compared to ECG 03/30/2021 19:12:52 Right-axis deviation now present First degree AV block no longer present Left-axis deviation no longer present Electronically Signed On 05-15-2021 14:26:48 CDT by Renee Seay M.D. [id number]
[2021-05-14 17:29] VITALS: BP 153/71; PULSE 80; RESP 18; O2SAT 97
== END 2021-05-14 17:31 | disposition home or self-care (01) ==
PROVIDERS: Emergency Provider Emergency Medicine; PCP Nurse Practitioner
DX: F41.9 Anxiety disorder, unspecified (principal); G31.84 Mild cognitive impairment of uncertain or unknown etiology; R06.4 Hyperventilation; K59.00 Constipation, unspecified; R14.0 Abdominal distension (gaseous); R10.9 Unspecified abdominal pain; Z79.01 Long term (current) use of anticoagulants; Z79.4 Long term (current) use of insulin; J44.9 Chronic obstructive pulmonary disease, unspecified; E11.22 Type 2 diabetes mellitus with diabetic chronic kidney disease; N18.9 Chronic kidney disease, unspecified; Z87.891 Personal history of nicotine dependence
CPT/HCPCS: 36415; 36600; 70450; 71045; 71275; 74019; 74177; 80051; 80053; 81001; 82330; 82805; 83690; 83880; 84484; 85025; 85610; 85730; 93005; 96374; 96375; 96376; 99284; J2060; J2270; Q9967

== ENCOUNTER → 2021-06-02 10:53 | Outpatient (BNVA) | payer MEDICAID, SELFPAY | PROVIDERS: PCP Nurse Practitioner; Visit Provider Internal Medicine Rheumatology | DX: M25.50 Pain in unspecified joint (principal); M79.7 Fibromyalgia; Z11.59 Encounter for screening for other viral diseases; Z79.899 Other long term (current) drug therapy; G47.33 Obstructive sleep apnea (adult) (pediatric); E11.42 Type 2 diabetes mellitus with diabetic polyneuropathy; Z79.4 Long term (current) use of insulin; R10.11 Right upper quadrant pain | CPT/HCPCS: 99204 ==

== ENCOUNTER 2021-06-02 13:03 | Outpatient (CLI) | payer MEDICAID, SELFPAY ==
--- NOTE | 2021-06-02 13:14 | XRR_ITS ---
PROCEDURE INFORMATION: Exam: XR Left Hand Exam date and time: 06/02/2021 1:14 PM Age: 66 years old Clinical indication: Left hand pain. Fibromyalgia. 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 TECHNIQUE: Imaging protocol: XR Left hand. Views: 3 or more views. COMPARISON: No relevant prior studies available. FINDINGS: The scapholunate and lunotriquetral intervals are maintained. No chondrocalcinosis is seen. There is a small calcification distal to the ulna that may represent a dystrophic calcification in the triangular fibrocartilage complex. A fracture fragment is considered less likely. Correlate clinically. Mild scattered degenerative changes. There is a small curvilinear calcification along the ulnar aspect of the proximal phalanx of the 4th finger that could reflect a dystrophic calcification or fracture fragment. There are calcifications along the anterior aspect of the distal interphalangeal joint of the 3rd finger that could be dystrophic or could reflect fracture fragments. There is a possible fracture defect from the volar and proximal aspect of the distal phalanx of the 3rd finger. Correlate for tenderness at this location. No periosteal reaction or supsicious bone lesion. XR/XR hand LT min 3V* [id number] IMPRESSION: 1. There is a small curvilinear calcification along the ulnar aspect of the proximal phalanx of the 4th finger that could reflect a dystrophic calcification or fracture fragment. Correlate for tenderness at this location. 2. There is a small calcification distal to the ulna that may represent a dystrophic calcification in the triangular fibrocartilage complex. A fracture fragment is considered less likely. Correlate clinically. 3. There are calcifications along the anterior aspect of the distal interphalangeal joint of the 3rd finger that could be dystrophic or could reflect fracture fragments. There is a possible fracture defect from the volar and proximal aspect of the distal phalanx of the 3rd finger. Correlate for tenderness at this location. 4. Mild scattered degenerative changes.
--- NOTE | 2021-06-02 13:14 | XRR_ITS ---
PROCEDURE INFORMATION: Exam: XR Right Hand Exam date and time: 06/02/2021 1:14 PM Age: 66 years old Clinical indication: Right hand pain. Fibromyalgia. 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 TECHNIQUE: Imaging protocol: XR Right hand. Views: 3 or more views. COMPARISON: No relevant prior studies available. FINDINGS: The scapholunate and lunotriquetral intervals are maintained. No chondrocalcinosis is seen. There is positive ulnar variance. There are small cysts in the proximal lunate; query ulnar abutment syndrome. Mild scattered degenerative changes. No fracture, dislocation or subluxation. No periosteal reaction or supsicious bone lesion. XR/XR hand RT min 3V* [id number] IMPRESSION: 1. No acute fracture. 2. There is positive ulnar variance. There are small cysts in the proximal lunate; query ulnar abutment syndrome. 3. Mild scattered degenerative changes.
--- NOTE | 2021-06-02 13:14 | XRR_ITS ---
PROCEDURE INFORMATION: Exam: XR Lumbosacral Spine Exam date and time: 06/02/2021 1:14 PM Age: 66 years old Clinical indication: Low back pain. Prior cholecystectomy and Caesarean section. History of Fibromyalgia. 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 TECHNIQUE: Imaging protocol: XR of the lumbosacral spine. Views: 2 or 3 views. COMPARISON: CT angio chest w abd pel w con 05/14/2021 3:19 PM FINDINGS: There are 5 lumbar type vertebral bodies. There is a leftward curvature of the lumbar spine. There is a grade 1 anterolisthesis of L3. Tbjj-fc-[id number] degenerative disc disease is seen in the lumbar spine most prominent at L2-L3. No acute fracture is seen. The sacroiliac joints are grossly symmetric. The sacrum is partially obscured by overlying bowel gas/stool. XR/XR lumbar spine 2-3V* [id number] IMPRESSION: 1. Hgfm-rf-[id number] degenerative disc disease is seen in the lumbar spine most prominent at L2-L3. Consider MRI if there is continued clinical concern. 2. No acute fracture is seen.
--- NOTE | 2021-06-02 13:14 | XRR_ITS ---
PROCEDURE INFORMATION: Exam: XR Left Foot Exam date and time: 06/02/2021 1:14 PM Age: 66 years old Clinical indication: Foot pain. Fibromyalgia. jail (current) drug therapy. TECHNIQUE: Imaging protocol: XR Left foot. Views: 3 or more views. COMPARISON: No relevant prior studies available. FINDINGS: Mild primary osteoarthritis at the 1st metatarsophalangeal joint. There is a tiny calcification along the lateral aspect of the proximal phalanx of the 2nd toe. This could represent a dystrophic calcification or tiny fracture fragment. Correlate for tenderness at this location. Plantar and posterior calcaneal spurs. There is soft tissue swelling about the ankle extending along the dorsum of the foot. Mild scattered degenerative changes. Atherosclerotic arterial calcifications are seen. XR/XR foot LT min 3V* [id number] IMPRESSION: 1. There is a tiny calcification along the lateral aspect of the proximal phalanx of the 2nd toe. This could represent a dystrophic calcification or tiny fracture fragment. Correlate for tenderness at this location. 2. Mild primary osteoarthritis at the 1st metatarsophalangeal joint. 3. Plantar and posterior calcaneal spurs. 4. There is soft tissue swelling about the ankle extending along the dorsum of the foot. 5. Mild scattered degenerative changes.
--- NOTE | 2021-06-02 13:14 | XRR_ITS ---
PROCEDURE INFORMATION: Exam: XR Right Foot Exam date and time: 06/02/2021 1:14 PM Age: 66 years old Clinical indication: Right foot pain. Fibromyalgia. [facility] (current) drug therapy. TECHNIQUE: Imaging protocol: XR Right foot. Views: 3 or more views. COMPARISON: CR Foot 3 views, RIGHT* [id number] 03/29/2016 12:13 PM FINDINGS: Mild primary osteoarthritis at the 1st metatarsophalangeal joint. Plantar and posterior calcaneal spurs. There is soft tissue swelling about the ankle extending along the dorsum of the foot. Mild scattered degenerative changes. Atherosclerotic arterial calcifications are seen. No fracture, dislocation or subluxation. XR/XR foot RT min 3V* [id number] IMPRESSION: 1. Mild primary osteoarthritis at the 1st metatarsophalangeal joint. 2. Plantar and posterior calcaneal spurs. 3. Soft tissue swelling about the ankle extending along the dorsum of the foot. 4. Mild scattered degenerative changes. 5. No acute fracture is seen.
[2021-06-02 14:42] LABS: C Reactive Protein 15.1 mg/L (0.0-4.9)
[2021-06-02 15:08] LABS: Erythrocyte Sedimentation Rate 73 mm/hr (0-15)
[2021-06-02 15:15] LABS: Hepatitis B Core AB, Total Non-Reactive (Nonreactive); Hepatitis B Surface Antigen Non-Reactive (Nonreactive); Hepatitis C Virus Antibody Non-Reactive (Nonreactive)
[2021-06-03 13:33] LABS: Cyclic Citrullinated Peptide <16 UNITS
== END 2021-06-02 13:04 | disposition home or self-care (01) ==
LOC: RAD 13:12
PROVIDERS: PCP Nurse Practitioner; Visit Provider Internal Medicine Rheumatology
DX: M19.90 Unspecified osteoarthritis, unspecified site (principal); M79.7 Fibromyalgia; Z79.899 Other long term (current) drug therapy; Z11.59 Encounter for screening for other viral diseases
CPT/HCPCS: 72100; 73130; 73630; 85651; 86140; 86431; 86704; 86803; 87340

== ENCOUNTER → 2021-06-22 10:53 | Outpatient (BNVA) | payer MEDICAID, SELFPAY | PROVIDERS: PCP Nurse Practitioner; Visit Provider Specialist | DX: M79.7 Fibromyalgia (principal); E11.42 Type 2 diabetes mellitus with diabetic polyneuropathy; Z79.4 Long term (current) use of insulin; G47.33 Obstructive sleep apnea (adult) (pediatric); R20.0 Anesthesia of skin; R20.2 Paresthesia of skin; Z87.891 Personal history of nicotine dependence | CPT/HCPCS: 99214 ==

== ENCOUNTER 2021-06-22 12:02 | Outpatient (CLI) | payer MEDICAID, SELFPAY ==
[2021-06-22 12:37] LABS: Basophils # 0.1 10^3/uL (0.0-0.1); Basophils % 0.9 %; Eosinophils # 0.3 10^3/uL (0.0-0.8); Eosinophils % 4.1 %; Hematocrit 32.7 % (37.0-47.0); Hemoglobin 10.8 g/dL (11.5-15.3); Lymphocytes # 1.4 10^3/uL (0.8-4.8); Lymphocytes % 18.8 %; Mean Corpuscular Hemoglobin 29.1 pg (28.0-34.0); Mean Corpuscular Volume 88.1 fL (81-99); Mean Platelet Volume 11.1 fL (7.4-10.4); Monocytes # 0.5 10^3/uL (0.2-0.9); Monocytes % 6.3 %; Neutrophils # 5.25 10^3/uL (1.8-7.7); Neutrophils % 69.5 %; Nucleated Red Blood Cells % 0 %; Platelet Count 174 10^3/cmm (130-400); Red Blood Count 3.71 10^6/uL (4.1-5.3); Red Cell Distribution Width 12.4 % (12.1-15.1); White Blood Count 7.6 10^3/uL (4.0-10.0)
[2021-06-22 13:00] LABS: Albumin Level 3.4 g/dL (3.5-5.2); Anion Gap 12.2 (5-19); Blood Urea Nitrogen 27 mg/dL (8-23); Calcium 9.1 mg/dL (8.5-10.5); Carbon Dioxide 27 mmol/L (22-29); Chloride 98 mmol/L (98-107); Glomerular Filtration Rate 45.2 mL/min (90-130); Glucose 335 mg/dL (65-115); Phosphorus 3.7 mg/dL (2.5-4.5); Potassium 4.2 mmol/L (3.5-5.1); Sodium 133 mmol/L (136-145)
[2021-06-22 13:03] LABS: Calcium 8.9 mg/dL (8.5-10.5)
[2021-06-22 13:15] LABS: Creatinine Urine, Random 41 mg/dL (28-217); Microalbum Creatinine Ratio Ur 707 mg/dL (0-20); Microalbumin Random Urine 29 ug/dL (0-20)
[2021-06-22 14:46] LABS: Parathyroid Hormone 36.3 pg/mL (15-65)
[2021-06-23 12:37] LABS: KAPPA LIGHT CHAIN, FREE, SERUM 49.1 mg/L (3.3-19.4); KAPPA/LAMBDA LIGHT CHAINS FREE 1.48 (0.26-1.65); LAMBDA LIGHT CHAIN, FREE, SERU 33.2 mg/L (5.7-26.3)
== END 2021-06-22 12:03 | disposition home or self-care (01) ==
PROVIDERS: PCP Nurse Practitioner; Referring Provider Internal Medicine Nephrology; Visit Provider Specialist
DX: R20.0 Anesthesia of skin (principal); R20.2 Paresthesia of skin
CPT/HCPCS: 36415; 80069; 82044; 82310; 83883; 83970; 84260; 85025

== ENCOUNTER → 2021-07-07 10:28 | Outpatient (BNVA) | payer MEDICAID, SELFPAY | PROVIDERS: PCP Nurse Practitioner; Visit Provider Internal Medicine | DX: R10.9 Unspecified abdominal pain (principal); Z01.812 Encounter for preprocedural laboratory examination; Z20.822 Contact with and (suspected) exposure to COVID-19 | CPT/HCPCS: 87635 ==

== ENCOUNTER 2021-07-10 08:26 | Day surgery (SDC) | payer MEDICAID, SELFPAY ==
[2021-07-08 12:20] VITALS: BMI 54.0
[2021-07-10 08:58] VITALS: BP 182/82; PULSE 78; RESP 16; TEMP 36.5; O2SAT 100
[2021-07-10] MEDS: sodium chloride 0.9% 1,000 ML 30 ML IV (09:20)
--- NOTE | 2021-07-10 09:27 | ANES.PREANE2 ---
Pre-Anesthetic Assessment Pre-Anesthetic Assessment: Height/Weight: Height 1.6 m Weight 138.346 kg Temp Pulse Resp BP Pulse Ox 97.7 F 78 16 182/82 100 07/10/21 08:58 07/10/21 08:58 07/10/21 08:58 07/10/21 08:58 07/10/21 08:58 Preop Diagnosis: abdominal pain Proposed Procedure: Operation Date: 07/10/21 09:30 Proposed Procedures p EGD/colon [id number] R10.9(Not Applicable) - Denny Padgett MD s Colonoscopy(Not Applicable) - Denny Padgett MD Familial anesthetic complications: None Was Beta Lynsey taken within 24 hours: Yes Was Clonidine taken within 24 hours: N/A Last intake: Intake Last Liquid Date 07/09/21 Last Liquid Time 21:00 Last Solid Date 07/08/21 Last Solid Time 21:00 Social: Social History: No alcohol and No tobacco Exam: Pre-Anes Outpt Exam: alert, oriented x 3, clear to auscultation bilaterally and regular rate & rhythm Airway: Cervical ROM: WNL MP: 4 Dentition: Other (no teeth) Additional comments: large tongue and neck circumference Pulmonary: Pulmonary: COPD and Sleep apnea CV/HEM: Comments: EF 55%, abnormal nuclear stress test (LCX), but no CAD on cath report - fistula connection between LV and diagonal branch of LAD, no interventions Metabolic: Metabolic: DM and Morbid obesity Musc/skel: Musc/skel: Fibromyalgia Anesthetic Plan: ASA status: 3 Anesthesia: MAC Risk of > 500 ml blood loss (7ml/kg in children): No Meds/Allergies Current Medications: Current Medications Generic Name Dose Route Start Last Admin Trade Name Freq PRN Reason Stop Dose Admin Sodium Chloride 1,000 mls @ 30 ml s/hr 07/10/21 08:45 07/10/21 09:20 Sodium Chloride 0.9% IV 30 mls/hr .Q24H HERMINIO Administration PFSH Anesthesia PFSH: Medical History Atrial flutter Benign hypertension Chronic obstructive pulmonary disease, unspecified CKD (chronic kidney disease) COPD, moderate Coronary artery fistula Dietary noncompliance Diverticulosis Emphysema lung Environmental and seasonal allergies Fibromyalgia Fibromyalgia Noncompliance with diabetes treatment Not consistent with diet Obesity Polyarthralgia Reduced ejection fraction concurrent with and due to chronic heart failure Situational anxiety SOB (shortness of breath) Type 2 diabetes mellitus with diabetic chronic kidney disease Vitamin D deficiency Surgical History History of section 4 times History of cholecystectomy History of hysterectomy with BSO History of tonsillectomy Family History Brother Bleeding disorder CAD (coronary artery disease) Father CAD (coronary artery disease) Chronic kidney disease (CKD) Mother CAD (coronary artery disease) Cancer Diabetes Family/Other Cancer Other CHF (congestive heart failure) Heart disease Hypertension Denies family history of Clotting disorder Dementia Suicide Anesthesia complication Lung disease Stroke Social History Smoking and tobacco status: former smoker Second hand smoke exposure: No Smoking risk assessment/counseling performed?: No Alcohol intake: current Alcohol intake frequency: holidays/special occasions only Desire information about alcohol rehabilitation?: No Counseling given: No Desire information about substance/drug rehabilitation?: No Counseling given: No Adopted: No Caregiver/support person: No Lives independently: Yes Household members: family Marital status: Single service: No Current occupational status: unemployed and disabled History of recent travel: No Current gender identity: Female Data Anesthesia Cardiac Studies: Cardiac Event Monitor 01/22/21
[2021-07-10 09:32] LABS: Glucose Point of Care 253 mg/dL (70-110)
--- NOTE | 2021-07-10 09:39 | P.HP_ITS ---
Same Day Surgery H&P Indication for Procedure/HPI DATE OF PROCEDURE: July 10, 2021 CHIEF COMPLAINT/INDICATIONFOR SURGICAL PROCEDURE: Hematochezia and abdominal pain PREOP DIAGNOSIS: abdominal pain PLANNED PROCEDRUE: Operation Date: 07/10/21 09:30 Proposed Procedures p EGD/colon [id number] R10.9(Not Applicable) - Denny Padgett MD s Colonoscopy(Not Applicable) - Denny Padgett MD Medications/Allergies* Home Medications Medication Instructions Recorded Confirmed Type pen needle, diabetic 31 gauge x #1,200 each 12/20/19 07/10/21 History 5/16 nitroglycerin 0.4 mg sublingual 0.4 mg SUBLINGUAL Q5M PRN 01/21/20 07/10/21 History tablet carvedilol 12.5 mg PO BID@0900,2100 03/30/21 07/10/21 History clindamycin phosphate See Rx Instructions .ROUTE .COMPLEX 03/30/21 07/10/21 History Vitamin B-12 1 tab PO DAILY 05/14/21 07/10/21 History cholecalciferol (vitamin D3) 125 mcg PO DAILY 05/14/21 07/10/21 History [Vitamin D3] diphenhydramine HCl [Benadryl] 25 - 50 mg PO PRN 05/14/21 07/10/21 History insulin aspart U-100 [Novolog 6 - 27 unit SUBCUT TID 05/14/21 07/10/21 History Flexpen U-100 Insulin] insulin detemir U-100 [Levemir 125 unit SUBCUT QAM 05/14/21 07/10/21 History FlexTouch U-100 Insuln] methocarbamol 500 mg PO TID PRN 05/14/21 07/10/21 History Allergies/Adverse Reactions Allergy/AdvReac Type Severity Reaction Status Date / Time acetaminophen [From [place]] Allergy Unknown Verified 06/30/21 10:34 bacitracin Allergy ADR-Nausea Verified 06/30/21 10:34 codeine Allergy ADR-Nausea Verified 06/30/21 10:34 hydrocodone [From [place]] Allergy Unknown Verified 06/30/21 10:34 Latex, Natural Rubber Allergy Unknown Verified 06/30/21 10:34 morphine Allergy ADR-Itching Verified 06/30/21 10:34 neomycin Allergy ALGY-Rash Verified 06/30/21 10:34 [From Neosporin ([id number])] oxycodone Allergy Unknown Verified 06/30/21 10:34 polymyxin B Allergy ALGY-Rash Verified 06/30/21 10:34 [From Neosporin (ylf-cya-ubxin)] Sulfa (Sulfonamide Allergy ADR-Nausea Verified 06/30/21 10:34 Antibiotics) sulfamethoxazole Allergy Unknown Verified 06/30/21 10:34 [From Bactrim] trimethoprim [From Bactrim] Allergy Unknown Verified 06/30/21 10:34 Current Medications: Generic Name Dose Route Start Last Admin Trade Name Freq PRN Reason Stop Dose Admin Sodium Chloride 1,000 mls @ 30 mls/hr 07/10/21 08:45 07/10/21 09:20 Sodium Chloride 0.9% IV 30 mls/hr .Q24H HERMINIO Administration Pertinent History/Comorbid Conditions* Medical History (Updated 06/30/21 @ 10:54 by Denny Padgett MD) Atrial flutter Benign hypertension Chronic obstructive pulmonary disease, unspecified CKD (chronic kidney disease) COPD, moderate Coronary artery fistula Dietary noncompliance Diverticulosis Emphysema lung Environmental and seasonal allergies Fibromyalgia Fibromyalgia Noncompliance with diabetes treatment Not consistent with diet Obesity Polyarthralgia Reduced ejection fraction concurrent with and due to chronic heart failure Situational anxiety SOB (shortness of breath) Type 2 diabetes mellitus with diabetic chronic kidney disease Vitamin D deficiency Surgical History (Updated 01/21/20 @ 12:45 by SOLO MensahC) History of section 4 times History of cholecystectomy History of hysterectomy with BSO History of tonsillectomy Family History (Updated 01/19/21 @ 14:45 by Rachel Vasquez RN) Diabetes Mother CAD (coronary artery disease) Brother Father Mother CHF (congestive heart failure) Heart disease Chronic kidney disease (CKD) Father Bleeding disorder Brother Cancer Mother Family/Other Hypertension Denies family history of Clotting disorder Dementia Suicide Anesthesia complication Lung disease Stroke Social History Smoking and tobacco status: former smoker Second hand smoke exposure: No Smoking risk assessment/counseling performed?: No Alcohol intake: current Alcohol intake frequency: holidays/special occasions only Desire information about alcohol rehabilitation?: No Counseling given: No Desire information about substance/drug rehabilitation?: No Counseling given: No Adopted: No Caregiver/support person: No Lives independently: Yes Household members: family Marital status: Single service: No Current occupational status: unemployed and disabled History of recent travel: No Current gender identity: Female Pertinent Exam Findings alert, oriented x 3, clear to auscultation bilaterally, regular rate & rhythm, operative site marked and procedure specific exam findings Recommendations Surgery/Procedure today Coding Level of Care Code Acute Database Administration Associate for Anel Mcknight
[2021-07-10] MEDS: insulin regular-human 100 units/1 mL 10 UNIT IVP (09:44)
[2021-07-10 10:20] VITALS: BP 129/59; PULSE 77; RESP 16; TEMP 36.7; O2SAT 100
--- NOTE | 2021-07-10 10:22 | ANE.PACU2 ---
Inpatient post-anesthesia follow up: Airway intact: Yes Vital signs: Temperature 97.7 F Pulse Rate 78 Respiratory Rate 16 Blood Pressure 182/82 Pulse Oximetry 100 Oxygen Delivery Me thod Nasal Cannula Oxygen Flow Rate 2 Fraction of Inspir ed Oxygen Hydration adequate: Yes Nausea and vomiting: No Pain level: 1 Mental status: Baseline
--- NOTE | 2021-07-10 10:30 | PC.NURSE ---
patient states her pain has been active for two months with nothing relieving pain. patient states pain feels like a jayy horse cramping.
[2021-07-10 11:01] LABS: Glucose Point of Care 182 mg/dL (70-110)
== END 2021-07-10 11:16 | disposition home or self-care (01) ==
PROVIDERS: PCP Nurse Practitioner; Visit Provider Internal Medicine
PROC: 0DJ08ZZ Inspection of Upper Intestinal Tract, Via Natural or Artificial Opening Endoscopic (ICD-10-PCS; CPT 43235; principal; 2021-07-10 09:30)
PROC: 0DJD8ZZ Inspection of Lower Intestinal Tract, Via Natural or Artificial Opening Endoscopic (ICD-10-PCS; CPT 45378; 2021-07-10 09:30)
DX: K92.1 Melena (principal); R10.9 Unspecified abdominal pain; Z79.4 Long term (current) use of insulin; Z91.11 Patient's noncompliance with dietary regimen; J43.9 Emphysema, unspecified; M79.7 Fibromyalgia; Z91.14 Patient's other noncompliance with medication regimen; E66.01 Morbid (severe) obesity due to excess calories; Z68.43 Body mass index [BMI] 50.0-59.9, adult; E55.9 Vitamin D deficiency, unspecified; E11.22 Type 2 diabetes mellitus with diabetic chronic kidney disease; I12.9 Hypertensive chronic kidney disease with stage 1 through stage 4 chronic kidney disease, or unspecified chronic kidney disease; N18.9 Chronic kidney disease, unspecified; Z87.891 Personal history of nicotine dependence
CPT/HCPCS: 36416; 43235; 45378; 82962; 96361; 96374; J1815; J2704; J7030

== ENCOUNTER → 2021-07-21 10:31 | Outpatient (BNVA) | payer MEDICAID, SELFPAY | PROVIDERS: PCP Nurse Practitioner; Visit Provider Internal Medicine Rheumatology | DX: M25.50 Pain in unspecified joint (principal); M79.7 Fibromyalgia; G47.30 Sleep apnea, unspecified; E11.42 Type 2 diabetes mellitus with diabetic polyneuropathy; Z79.4 Long term (current) use of insulin; Z87.891 Personal history of nicotine dependence | CPT/HCPCS: 99214 ==

== ENCOUNTER 2021-07-22 14:28 | Outpatient (CLI) | payer MEDICAID, SELFPAY ==
--- NOTE | 2021-07-22 15:00 | USCV_ITS ---
Scarlet Jennifer Age: 66 Gender: F : 1955 Exam Date: 07/22/2021 14:44 Ordering Phys: Sammy Aquino MD ([email or web address]) Technologist: Sonia Yang Exam Location: [facility] [place] Indication: EDEMA BP: 164 / 78 HR: 75 Rhythm: Sinus Technical Quality: Adequate MEASUREMENTS (Male / Female) Normal Values 2D ECHO LV Diastolic Diameter PLAX 3.3 cm 4.2 - 5.9 / 3.9 - 5.3 cm LV Systolic Diameter PLAX 2.7 cm LV Chamber Size 3.8 cm IVS Diastolic Thickness 1.5 cm 0.6 - 1.0 / 0.6 - 0.9 cm IVS Systolic Thickness 2.1 cm LVPW Diastolic Thickness 1.6 cm 0.6 - 1.0 / 0.6 - 0.9 cm LVPW Systolic Thickness 1.9 cm RV Chamber Size 3.0 cm LVOT Diameter 2.0 cm LV Ejection Fraction 2D Teich 38.4 % LV Ejection Fraction MOD 2C 66.3 % LV Ejection Fraction 2C AL 67.6 % LA Diameter 3.8 cm LA Width 4.3 cm LA Height 4.2 cm RA Width 3.2 cm RA Height 4.3 cm Aorta at Sinotubular Diameter 2.9 cm M-MODE LV Diastolic Diameter MM 4.8 cm 4.2 - 5.9 / 3.9 - 5.3 cm LV Systolic Diameter MM 2.9 cm LV Ejection Fraction MM Teich 70.1 % IVS Diastolic Thickness MM 1.5 cm 0.6 - 1.0 / 0.6 - 0.9 cm IVS Systolic Thickness MM 1.5 cm LVPW Diastolic Thickness MM 1.1 cm 0.6 - 1.0 / 0.6 - 0.9 cm LVPW Systolic Thickness MM 1.9 cm Aortic Annulus Diameter 4.0 cm LA Ao Ratio MM 1.0 MV E Point Septal Separation 1.0 cm DOPPLER AV Peak Velocity 120.0 cm/s LVOT Peak Velocity 73.0 cm/s AV Area Cont Eq vti 2.7 cm squared AV Area Cont Eq pk 1.9 cm squared MV Area PHT 4.9 cm squared Mitral E to A Ratio 1.0 MV E' Velocity 62.0 cm/s Mitral E to MV E' Ratio 25.4 Mitral E to LV E' Lateral Ratio 21.7 Mitral E to LV E' Septal Ratio 31.4 TV Peak E Velocity 73.0 cm/s PV Peak Velocity 81.0 cm/s RV Acceleration Time 0.2 s RV Ejection Time 0.4 s RV AcT/ET 0.4 FINDINGS Left Ventricle Normal left ventricular size and systolic function, EF 67 %. Moderate left ventricular hypertrophy. Grade II/IV diastolic dysfunction, moderately elevated filling pressures. Right Ventricle The right ventricle is normal in size and function. Right Atrium The right atrium is normal in size. Left Atrium Left atrium, upper limit of normal size Mitral Valve Thickened mitral valve. Moderate mitral annular calcification. Trace to mild mitral valve regurgitation. Aortic Valve Minimally thickened noncoronary cusp of the aortic valve. Tricuspid Valve No gross abnormalities noted Pulmonic Valve Pulmonic valve not well visualized. Pericardium Normal pericardium without effusion. Aorta Normal ascending aorta dimension. CONCLUSIONS Normal left ventricular size and systolic function, EF 67 %. Moderate left ventricular hypertrophy. Grade II/IV diastolic dysfunction, moderately elevated filling pressures. Thickened mitral valve. Moderate mitral annular calcification. Trace to mild mitral valve regurgitation. Left atrium, upper limit of normal size. Minimally thickened noncoronary cusp of the aortic valve. There is no pericardial effusion. There are no intracardiac masses. Compared to the study from 09/18/2018, there may not be a significant change, in the [address] Sammy Aquino MD FAC (Electronically Signed) Final Date: 22 July 2021 18:54 S
== END 2021-07-22 14:29 | disposition home or self-care (01) ==
LOC: US 14:29
PROVIDERS: PCP Nurse Practitioner; Visit Provider Internal Medicine Cardiovascular Disease
DX: R60.9 Edema, unspecified (principal); I08.0 Rheumatic disorders of both mitral and aortic valves
CPT/HCPCS: 93306

== ENCOUNTER → 2021-07-29 13:31 | Outpatient (BNVA) | payer MEDICAID, SELFPAY | PROVIDERS: PCP Nurse Practitioner; Visit Provider Nurse Practitioner | DX: N18.32 Chronic kidney disease, stage 3b (principal); I48.3 Typical atrial flutter; J44.9 Chronic obstructive pulmonary disease, unspecified; M79.7 Fibromyalgia; F32.9 Major depressive disorder, single episode, unspecified; F41.8 Other specified anxiety disorders; E11.22 Type 2 diabetes mellitus with diabetic chronic kidney disease; I50.22 Chronic systolic (congestive) heart failure; M54.9 Dorsalgia, unspecified; G89.29 Other chronic pain; E11.42 Type 2 diabetes mellitus with diabetic polyneuropathy; L03.90 Cellulitis, unspecified; Z79.4 Long term (current) use of insulin | CPT/HCPCS: 80048; 80069; 82043; 82310; 83036; 83970; 85025 ==

== ENCOUNTER → 2021-09-08 12:36 | Outpatient (BNVA) | payer MEDICAID, SELFPAY | PROVIDERS: PCP Nurse Practitioner; Visit Provider Specialist | DX: M54.9 Dorsalgia, unspecified (principal); G89.29 Other chronic pain; E11.42 Type 2 diabetes mellitus with diabetic polyneuropathy; E11.65 Type 2 diabetes mellitus with hyperglycemia; Z79.4 Long term (current) use of insulin; F32.9 Major depressive disorder, single episode, unspecified; G47.33 Obstructive sleep apnea (adult) (pediatric); E66.01 Morbid (severe) obesity due to excess calories; Z68.43 Body mass index [BMI] 50.0-59.9, adult; Z99.81 Dependence on supplemental oxygen | CPT/HCPCS: 99215 ==

== ENCOUNTER → 2021-09-21 14:16 | Outpatient (BNVA) | payer MEDICAID, SELFPAY | PROVIDERS: PCP Nurse Practitioner; Visit Provider Internal Medicine Nephrology | DX: N18.32 Chronic kidney disease, stage 3b (principal) | CPT/HCPCS: 80069; 82310; 83970 ==

== ENCOUNTER 2021-10-19 12:36 | Outpatient (CLI) | payer MEDICAID, SELFPAY ==
--- NOTE | 2021-10-19 12:41 | CT_ITS ---
WS: [id number] CT HEAD NONCONTRAST HISTORY: I63.9 - Cerebral infarction, unspecified TECHNIQUE: Contiguous axial imaging performed through the brain in 2.5 mm imaging. Bone and soft tiss ue windows. Sagittal and coronal reformats reviewed. All CT scans at [facility] use at least one of these dose optimization techniques: automated exposure control; mA and/or kV adjustment per pa tient size (includes targeted exams where dose is matched to clinical indication); or iterative recon struction. DLP: 1262.22 mGycm COMPARISON: 05/14/2021 No acute intracranial hemorrhage, midline shift or mass effect. Very mild atrophy and mild chronic microvascular ischemic disease. No large territory infarct. No in ferior displacement of cerebellar tonsils. Ventricles: Normal size with no hydrocephalus. Minimal calcified plaque through the cavernous carotid arteries. Paranasal sinuses: Small amount of fluid in the posterior RIGHT ethmoid air cells. Otherwise no air-f luid levels. Mastoid air cells: Well pneumatized. Calvarium and scalp: Skull is intact with no soft tissue edema or swelling. CT/CT head wo con* [id number] IMPRESSION: 1. No acute intracranial hemorrhage or edema. 2. Minimal chronic microvascular ischemic disease.
== END 2021-10-19 12:37 | disposition home or self-care (01) ==
PROVIDERS: PCP Nurse Practitioner; Visit Provider Specialist
DX: I63.9 Cerebral infarction, unspecified (principal); R41.82 Altered mental status, unspecified; R29.6 Repeated falls; R05.9 Cough, unspecified; R29.90 Unspecified symptoms and signs involving the nervous system; Z99.81 Dependence on supplemental oxygen
CPT/HCPCS: 70450; 95816

== ENCOUNTER 2021-10-29 | Outpatient (CLI) | payer MEDICAID, SELFPAY | END 2021-10-29 00:01 | disposition home or self-care (01) | LOC: SLEEP 05-18 12:32 | PROVIDERS: PCP Nurse Practitioner; Visit Provider Specialist | DX: N18.32 Chronic kidney disease, stage 3b (principal); I50.33 Acute on chronic diastolic (congestive) heart failure; M19.90 Unspecified osteoarthritis, unspecified site; R06.02 Shortness of breath; Z79.01 Long term (current) use of anticoagulants | CPT/HCPCS: 80048; 81003; 82043; 82570; 83880; 84156 ==

== ENCOUNTER → 2021-12-01 10:54 | Outpatient (BNVA) | payer MEDICAID, SELFPAY | PROVIDERS: PCP Nurse Practitioner; Visit Provider Specialist | DX: G25.0 Essential tremor (principal); F32.9 Major depressive disorder, single episode, unspecified; E11.65 Type 2 diabetes mellitus with hyperglycemia; Z79.4 Long term (current) use of insulin; R41.3 Other amnesia; Z79.52 Long term (current) use of systemic steroids; M79.7 Fibromyalgia | CPT/HCPCS: 99214 ==

== ENCOUNTER 2021-12-04 09:19 | Outpatient (CLI) | payer MEDICAID, SELFPAY ==
--- NOTE | 2021-12-04 | US_ITS ---
DIAGNOSTIC BILATERAL DIGITAL MAMMOGRAM WITH CAD Bilateral breast ultrasound, limited HISTORY: R23.9 - Unspecified skin changes COMPARISON: 09/04/2007, 03/10/2018 TECHNIQUE: Bilateral craniocaudad, mediolateral oblique, and mediolateral views are submitted. Computer aided detection utilized. Breast composition: There are scattered areas of fibroglandular density. There is significant skin thickening involving the anterior LEFT breast. Greatest amount skin thickening is around the nipple and superiorly oriented. Significant thickening measures up to 7 mm. The no trabecular thickening. No mass within the breast itself. There is a prior biopsy clip in the central LEFT breast. Overall this study is very difficult due to positioning of the patient and discomfort. No lymph nodes are identified on the imaging submitted. Bilateral breast ultrasound, limited. RIGHT Breast: Around the areolar there is no mass identified. No skin thickening is identified or increased vascularity. No significantly enlarged RIGHT axillary lymph nodes. LEFT breast: There is marked skin thickening with increased vascularity greatest centered around the areolar. There is also a hypoechoic colic nodule associated with the nipple with increased vascularity. This hypoechoic area associated with the nipple measures 2.1 x 1.2 x 0.8 cm. Skin thickening is edematous with increased vascularity. IMPRESSION: BI-RADS: 4-Suspicious Finding-Biopsy Should Be Considered FOLLOW UP: Biopsy Recommended Skin biopsy recommended of the skin thickening with increased vascularity surrounding the anterior LEFT breast at the nipple. Suspicious for inflammatory breast carcinoma. No axillary adenopathy is identified by ultrasound. The lymph nodes are very difficult to visualize due to patient size but there are no enlarged lymph nodes appreciated within either axilla. Notified PARAG Beckwith at 12/04/2021 12:02 PM. HAYES
--- NOTE | 2021-12-04 09:38 | MM_ITS ---
WS: [id number] DIAGNOSTIC BILATERAL DIGITAL MAMMOGRAM WITH CAD Bilateral breast ultrasound, limited HISTORY: R23.9 - Unspecified skin changes COMPARISON: 09/04/2007, 03/10/2018 TECHNIQUE: Bilateral craniocaudad, mediolateral oblique, and mediolateral views are submitted. Comput er aided detection utilized. Breast composition: There are scattered areas of fibroglandular density. There is significant skin th ickening involving the anterior LEFT breast. Greatest amount skin thickening is around the nipple and superiorly oriented. Significant thickening measures up to 7 mm. The no trabecular thickening. No ma ss within the breast itself. There is a prior biopsy clip in the central LEFT breast. Overall this st udy is very difficult due to positioning of the patient and discomfort. No lymph nodes are identified on the imaging submitted. Bilateral breast ultrasound, limited. RIGHT Breast: Around the areolar there is no mass identified. No skin thickening is identified or inc reased vascularity. No significantly enlarged RIGHT axillary lymph nodes. LEFT breast: There is marked skin thickening with increased vascularity greatest centered around the areolar. There is also a hypoechoic colic nodule associated with the nipple with increased vascularit y. This hypoechoic area associated with the nipple measures 2.1 x 1.2 x 0.8 cm. Skin thickening is ed ematous with increased vascularity. MM/[place] [id number] IMPRESSION: BI-RADS: 4-Suspicious Finding-Biopsy Should Be Considered FOLLOW UP: Biopsy Recommended Skin biopsy recommended of the skin thickening with increased vascularity surro unding the anterior LEFT breast at the nipple. Suspicious for inflammatory ana st carcinoma. No axillary adenopathy is identified by ultrasound. The lymph nodes are very di fficult to visualize due to patient size but there are no enlarged lymph nodes appreciated within either axilla. Notified PARAG Beckwith at 12/04/2021 12:02 PM.
== END 2021-12-04 09:20 | disposition home or self-care (01) ==
LOC: RADSHAW 09:25
PROVIDERS: PCP Nurse Practitioner; Visit Provider Nurse Practitioner Family
DX: R23.9 Unspecified skin changes (principal); N64.4 Mastodynia
CPT/HCPCS: 76642; 77066

== ENCOUNTER 2021-12-13 13:11 | Inpatient (IN) | payer MEDICAID, SELFPAY ==
[2021-12-13 13:19] VITALS: BP 108/62; PULSE 78; RESP 20; TEMP 37; O2SAT 100; BMI 56.7
--- NOTE | 2021-12-13 13:25 | XRR_ITS ---
PROCEDURE INFORMATION: Exam: XR Chest Exam date and time: 12/13/2021 1:25 PM Age: 66 years old Clinical indication: Pain and injury or trauma; Blunt trauma (contusions or hematomas); Chest wall pain; Patient HX: Chest pain after fall TECHNIQUE: Imaging protocol: XR of the chest. Views: 1 view. COMPARISON: CR XR chest 1V portable [id number] 05/14/2021 11:42 AM FINDINGS: Lungs: Unremarkable. No consolidation. Pleural spaces: Unremarkable. No pleural effusion. No pneumothorax. Heart/Mediastinum: Stable mild cardiomegaly. Bones/joints: Unremarkable. XR/XR chest 1V portable [id number] IMPRESSION: No acute findings.
--- NOTE | 2021-12-13 13:27 | CTR_ITS ---
PROCEDURE INFORMATION: Exam: CT Maxillofacial Without Contrast Exam date and time: 12/13/2021 1:27 PM Age: 66 years old Clinical indication: Injury or trauma; Fall; Blunt trauma (contusions or hematomas); Forehead and nose and jaw; Bilateral; Patient HX: Got dizzy and fell face first TECHNIQUE: Imaging protocol: Computed tomography images of the face without contrast. Radiation optimization: All CT scans at this facility use at least one of these dose optimization techniques: automated exposure control; mA and/or kV adjustment per patient size (includes targeted exams where dose is matched to clinical indication); or iterative reconstruction. COMPARISON: CT head wo con* [id number] 12/13/2021 2:48 PM RADIATION DOSE METRICS: Total DLP (mGy-cm): 693.78 FINDINGS: Orbital cavity: Orbits are normal. Globes are unremarkable. Bones/joints: No acute fracture. Paranasal sinuses: Small mucosal retention cysts in the maxillary sinuses. The rest of the paranasal sinuses are well pneumatized. Soft tissues: Unremarkable. CT/CT facial bones wo con* [id number] IMPRESSION: No acute findings.
--- NOTE | 2021-12-13 13:27 | CTR_ITS ---
PROCEDURE INFORMATION: Exam: CT Head Without Contrast Exam date and time: 12/13/2021 1:27 PM Age: 66 years old Clinical indication: Injury or trauma; Fall; Blunt trauma (contusions or hematomas); Patient HX: Got dizzy and fell face first TECHNIQUE: Imaging protocol: Computed tomography of the head without contrast. Radiation optimization: All CT scans at this facility use at least one of these dose optimization techniques: automated exposure control; mA and/or kV adjustment per patient size (includes targeted exams where dose is matched to clinical indication); or iterative reconstruction. COMPARISON: CT head wo con* [id number] 10/19/2021 12:49 PM RADIATION DOSE METRICS: Total DLP (mGy-cm): 1046.73 FINDINGS: Brain: Normal. No hemorrhage. Unremarkable white matter. No mass effect. Cerebral ventricles: No ventriculomegaly. Paranasal sinuses: Small mucosal retention cysts in the maxillary sinuses. The rest of the paranasal sinuses are well pneumatized. Mastoid air cells: Visualized mastoid air cells are well aerated. Bones/joints: Unremarkable. No acute fracture. Soft tissues: Unremarkable. CT/CT head wo con* [id number] IMPRESSION: No acute intracranial abnormality.
[2021-12-13 13:31] LABS: Glucose Point of Care 249 mg/dL (70-110)
--- NOTE | 2021-12-13 13:31 | ED_ITS ---
HPI - General Adult General: Chief complaint: Fall Stated complaint: PAIN TO FACE S/P FALL Time Seen by Provider: 12/13/21 13:16 History of Present Illness: HPI narrative: HPI: [66]yo patient w/ hx of CHF, aflutter on eliquis, CKD, coronary artery fistula BIBA for concern for s/p acute episode of syncope today while walking. The episode was not witnessed by anyone. Patient reports associated dyspnea and light-headedness prior to the LOC and fall. On arrival, the patient denies any chest pain, SOB, palpitations, focal neurological weakness in the arms or legs currently. Patient could not recall exactly what happened, but denied any post-ictal confusion, bowel or bladder incontinence after the incident. Of note, patient has had increased episodes of light-headedness on exertion in the last few weeks. Denies any chest pain, shortness, palpitation, abdominal pain or back pain prior to the episode of syncope. No recent exertional chest pain or shortness of breath. Denies vertigo or disequilibrium. The episode of syncope was not preceded by any prod romes including nausea, pallor, or diaphoresis. No symptoms of diarrhea, hematuria, dysuria, melena or hematochezia. No prior documented hx of anemia requiring blood transfusions, VTE, or aortic aneurysm. Onset:2 hrs ago Duration: x 1 episode Location: home Severity: moderate/severe Associated symptoms: Deny chest pain, dyspnea, nausea, rash, palpitations or vomiting Review of Systems Const: Denies: fever(s) or chills Eyes: Denies: change in vision ENMT: Denies: mouth pain Card: Denies: chest pain or palpitations Resp: Denies: dyspnea or non-productive cough GI: Denies: abdominal pain, nausea, vomiting or diarrhea : Denies: dysuria Musc: Denies: extremity pain Skin/Breast: Denies: rash or new lesions Neuro: Denies: weakness in extremities Psych: Reports: other (Normal mood) Kobe/Lymph: Denies: easy bruising PFS ED PFSH: Medical History Atrial flutter Benign hypertension Chronic major depressive disorder Chronic obstructive pulmonary disease, unspecified CKD (chronic kidney disease) COPD, moderate Coronary artery fistula Dietary noncompliance Diverticulosis Environmental and seasonal allergies Fibromyalgia High risk medication use IBS (irritable bowel syndrome) Inflammatory arthritis Noncompliance with diabetes treatment Not consistent with diet Obesity Pain of both breasts Polyarthralgia Reduced ejection fraction concurrent with and due to chronic heart failure Situational anxiety SOB (shortness of breath) Type 2 diabetes mellitus with diabetic chronic kidney disease Vitamin D deficiency Surgical History History of section 4 times History of cholecystectomy History of hysterectomy with BSO History of tonsillectomy Hx of colonoscopy Hx of esophagogastroduodenoscopy Family History Brother Bleeding disorder CAD (coronary artery disease) Father CAD (coronary artery disease) Chronic kidney disease (CKD) Mother CAD (coronary artery disease) Cancer Diabetes Family/Other Cancer Other CHF (congestive heart failure) Heart disease Hypertension Denies family history of Clotting disorder Dementia Suicide Anesthesia complication Lung disease Stroke Social History Marital status: Single Physical Exam Const: COMMON NORMALS: alert HENMT: COMMON NORMALS: atraumatic HEAD & SCALP: atraumatic MOUTH: moist mucous membranes not abnormal Eye: COMMON NORMALS: EOMs intact bilaterally and conjunctivae normal CONJUNCTIVA: Yes conjunctivae normal Neck/C-Spine: COMMON NORMALS: full ROM and supple Resp: COMMON NORMALS: normal respiratory effort and clear to auscultation bilaterally AUSCULTATION: clear to auscultation bilaterally Cardio: COMMON NORMALS: regular rate RATE: regular rate GI: COMMON NORMALS: Soft to palpation and non-tender PALPATION: Yes Soft to palpation Extremity: COMMON NORMALS: full ROM NARRATIVE EXTREMITY EXAM: +b/l shoulder ttp, +b/l knee ttp, +b/l tib/fib TTP, +L ankle ttp Neuro: SENSORIUM/ORIENTATION: Yes alert MOTOR EXAM: No Abnormal motor strength present and Other motor observations present (no focal motor deficits) Psych: COMMON NORMALS: speech normal SPEECH: Yes normal speech MOOD & AFFECT: Yes euthymic mood Course Vital Signs: Vital signs: Vital Signs Temperature 98.6 F 12/13/21 13:19 Pulse Rate 78 12/13/21 16:51 Respiratory Rate 20 H 12/13/21 13:19 Blood Pressure 160/77 12/13/21 16:51 Pulse Oximetry 100 12/13/21 13:19 MDM - General Adult MDM Narrative: Medical decision making narrative: [66]yo patient w/ hx of HTN, CKD, aflutter, COPD, coronary arterty fistula presenting to the ED with syncope with exertional dyspnea. Denies chest pain or palpitations. Currently symptom free. Patient fell today. HDS. Neurologically intact. Given history, exam and workup, presentation not consistent with seizures given short time course, no postictal state, no seizure activity. Low suspicion for acute neurologic catastrophes to include ICH given lack of trauma, risk factors for bleeding diathesis. Low suspicion for vascular catastrophes to include PE, thoracic aortic dissection, AAA rupture. Presentation not consistent with acute life threatening arrhythmia, structural heart disease, electrical conduction abnormalities, or ACS. Workup: CBC, BMP, Troponin, BNP, ECG, CXR for aspiration, CT head/ CT face, XR shoulders b/l, XR knees b/l, XR ankle L, XR tib/fib b/l Intervention: IVF, PO challenge, and serial reassessment EKG: No e/o STEMI. No evidence of Brugada?s sign, delta wave, epsilon wave, significantly prolonged QTc, or malignant arrhythmia. Fijian Syncope Risk Score: high [5:24pm] On reassessment, patient continues to HDS. No acute complaints currently. No syncopal episode in the ER. No arrhythmia noted on the night monitor. No suspicion of neurogenic syncope at this time. However, given age, cardiovascular risk factors and multiple co-rmbities, the patient will need inpatient workup for cardiac syncope. Patient agrees with the plan for inpatient admission at this time. XR of the L ankle showed distal fibular fracture. Extremity was placed in a posterior leg splint with b/l stirrup. Patient will need close orthopedics followup. She is given strict instructions to watch for signs of compartment syndrome while wearing the splint. Disposition: Admit to medicine, telemetry bed for cardiac monitoring and cardiology review. Lab Data: Labs: Lab Results 12/13/21 12/13/21 12/13/21 13:28 14:34 14:34 WBC 7.5 10^3/uL 10^3/ uL (4.0-10.0) RBC 4.26 10^6/uL 10^6 /uL (4.1-5.3) Hgb 12.0 g/dL g/dL (11.5-15.3) Hct 37.2 % % (37.0-47.0) MCV 87.3 fl fl (81-99) MCH 28.2 pg pg (28.0-34.0) MCHC 32.3 g/dL g/dL (30.0-36.0) RDW 13.9 % % (12.1-15.1) Plt Count 219 10^3/cmm 10^3 /cmm (130-400) MPV 10.9 fL H fL (7.4-10.4) Neut % (Auto) 70.8 % % Lymph % (Auto) 17.0 % % [place] % (Auto) 7.7 % % Eos % (Auto) 2.9 % % Baso % (Auto) 1.3 % % Neut # (Auto) 5.33 10^3/uL 10^3 /uL (1.8-7.7) Lymph # (Auto) 1.3 10^3/uL 10^3/ uL (0.8-4.8) [place] # (Auto) 0.6 10^3/uL 10^3/ uL (0.2-0.9) Eos # (Auto) 0.2 10^3/uL 10^3/ uL (0.0-0.8) Baso # (Auto) 0.1 10^3/uL 10^3/ uL (0.0-0.1) Nucleated RBC % (a uto) 0 % % Nucleated RBCs # 0.0 /100WBC /100W BC D-Dimer 0.57 ug/mIFEU ug/ mIFEU (0-0.59) Sodium Potassium Chloride Carbon Dioxide Anion Gap BUN Creatinine GFR Calculation Glucose POC Glucose 249 mg/dL H mg/dL (70-110) Calculated Osmolal ity Calcium Magnesium Troponin T Baselin e Troponin T 120 Min [place] Delta Troponin T NT-Pro-B Natriuret Pep 12/13/21 12/13/21 12/13/21 14:34 14:34 16:20 WBC RBC Hgb Hct MCV MCH MCHC RDW Plt Count MPV Neut % (Auto) Lymph % (Auto) [place] % (Auto) Eos % (Auto) Baso % (Auto) Neut # (Auto) Lymph # (Auto) [place] # (Auto) Eos # (Auto) Baso # (Auto) Nucleated RBC % (a uto) Nucleated RBCs # D-Dimer Sodium 135 mmol/L L mmol /L (136-145) Potassium 4.6 mmol/L mmol/L (3.5-5.1) Chloride 95 mmol/L L mmol/ L (98-107) Carbon Dioxide 27 mmol/L mmol/L (22-29) Anion Gap 17.6 (5-19) BUN 24 mg/dL H mg/dL (8-23) Creatinine 1.1 mg/dL H mg/dL (0.5-0.9) GFR Calculation 50.0 mL/min L mL/ min (90-130) Glucose 216 mg/dL H mg/dL (65-115) POC Glucose Calculated Osmolal ity 291 mOsm/kg mOsm/ kg (285-295) Calcium 9.9 mg/dL mg/dL (8.5-10.5) Magnesium 2.2 mg/dL mg/dL (1.7-2.3) Troponin T Baselin e 23 ng/L H ng/L (0-10) Troponin T 120 Min [place] 21.53 ng/L H ng/L (0-10) Delta Troponin T -1.47 ABS# L ABS# (0-10) NT-Pro-B Natriuret Pep 627 pg/mL H pg/mL (0-125) Imaging Data^: Other Imaging: Radiologist's impression: [address] [id number] Scan ReportSigned Patient: Jennifer Novak #: [id number]: [id number]#:[id number]/Sex: 66 / FADM Date: 12/13/21Loc: ERRoom/Bed:Attending Dr: Ordering Provider/Ordering MD: Dagoberto Sena MD Date of Service: 12/13/21 Procedure(s): CT head wo con* [id number] Accession Number(s): [id number] Report Number: [id number] PROCEDURE INFORMATION: Exam: CT Head Without Contrast Exam date and time: 12/13/2021 1:27 PM Age: 66 years old Clinical indication: Injury or trauma; Fall; Blunt trauma (contusions or hematomas); Patient HX: Got dizzy and fell face first TECHNIQUE: Imaging protocol: Computed tomography of the head without contrast. Radiation optimization: All CT scans at this facility use at least one of these dose optimization techniques: automated exposure control; mA and/or kV adjustment per patient size (includes targeted exams where dose is matched to clinical indication); or iterative reconstruction. COMPARISON: CT head wo con* [id number] 10/19/2021 12:49 PM RADIATION DOSE METRICS: Total DLP (mGy-cm): 1046.73 FINDINGS: Brain: Normal. No hemorrhage. Unremarkable white matter. No mass effect. Cerebral ventricles: No ventriculomegaly. Paranasal sinuses: Small mucosal retention cysts in the maxillary sinuses. The rest of the paranasal sinuses are well pneumatized. Mastoid air cells: Visualized mastoid air cells are well aerated. Bones/joints: Unremarkable. No acute fracture. Soft tissues: Unremarkable. CT/CT head wo con* [id number] IMPRESSION: No acute intracranial abnormality. Dictated By:Adriel Martinez DOSigned By:Adriel Martinez DOSigned Date/Time:12/13/21 1517DD/ [address] [id number] Scan ReportSigned Patient: Jennifer Novak #: [id number]: 1955 /Sex: 66 / FADM Date: 12/13/21Loc: ERRoom/Bed:Attending Dr: Ordering Provider/Ordering MD: Dagoberto Sena MD Date of Service: 12/13/21 Procedure(s): CT facial bones wo con* [id number] Accession Number(s): [id number] Report Number: [id number] PROCEDURE INFORMATION: Exam: CT Maxillofacial Without Contrast Exam date and time: 12/13/2021 1:27 PM Age: 66 years old Clinical indication: Injury or trauma; Fall; Blunt trauma (contusions or hematomas); Forehead and nose and jaw; Bilateral; Patient HX: Got dizzy and fell face first TECHNIQUE: Imaging protocol: Computed tomography images of the face without contrast. Radiation optimization: All CT scans at this facility use at least one of these dose optimization techniques: automated exposure control; mA and/or kV adjustment per patient size (includes targeted exams where dose is matched to clinical indication); or iterative reconstruction. COMPARISON: CT head wo con* [id number] 12/13/2021 2:48 PM RADIATION DOSE METRICS: Total DLP (mGy-cm): 693.78 FINDINGS: Orbital cavity: Orbits are normal. Globes are unremarkable. Bones/joints: No acute fracture. Paranasal sinuses: Small mucosal retention cysts in the maxillary sinuses. The rest of the paranasal sinuses are well pneumatized. Soft tissues: Unremarkable. CT/CT facial bones wo con* [id number] IMPRESSION: No acute findings. Dictated By:Adriel Martinez DOSigned By:Adriel Martinez DOSigned Date/Time:12/13/21 1520DD/ [address] [address]POwj ReportSigned Patient: Jennifer Novak #: [id number]: 1955cct#:[id number]/Sex: 66 / FADM Date: 12/13/21Loc: ERRoom/Bed:Attending Dr: Ordering Provider/Ordering MD: Dagoberto Sena MD Date of Service: 12/13/21 Procedure(s): XR chest 1V portable [id number] Accession Number(s): [id number] Report Number: [id number] PROCEDURE INFORMATION: Exam: XR Chest Exam date and time: 12/13/2021 1:25 PM Age: 66 years old Clinical indication: Pain and injury or trauma; Blunt trauma (contusions or hematomas); Chest wall pain; Patient HX: Chest pain after fall TECHNIQUE: Imaging protocol: XR of the chest. Views: 1 view. COMPARISON: CR XR chest 1V portable [id number] 05/14/2021 11:42 AM FINDINGS: Lungs: Unremarkable. No consolidation. Pleural spaces: Unremarkable. No pleural effusion. No pneumothorax. Heart/Mediastinum: Stable mild cardiomegaly. Bones/joints: Unremarkable. XR/XR chest 1V portable [id number] IMPRESSION: No acute findings. Dictated By:Adriel Martinez DOSigned By:Adriel Martinez DOSigned Date/Time: 2 1546DD/ [address] [place], [place] [address]WUbt ReportSigned Patient: Jennifer Novak #: [id number]: 7Acct#:[id number]/Sex: 66 / FADM Date: 12/13/21Loc: ERRoom/Bed:Attending Dr: Ordering Provider/Ordering MD: Dagoberto Sena MD Date of Service: 12/13/21 Procedure(s): XR shoulder LT min 2V* 21467 Accession Number(s): [id number] Report Number: [id number] PROCEDURE INFORMATION: Exam: XR Left Shoulder Exam date and time: 12/13/2021 1:32 PM Age: 66 years old Clinical indication: Injury or trauma; Blunt trauma (contusions or hematomas); Patient HX: Pain after fall bilateral shoulders; Additional info: Eval for fracture or injuries TECHNIQUE: Imaging protocol: XR Left shoulder. Views: 2 or more views. COMPARISON: CR XR chest 1V portable [id number] 05/14/2021 11:42 AM FINDINGS: Bones/joints: Osseous structures are intact. Negative for fracture or dislocation. Soft tissues: Normal. XR/XR shoulder LT min 2V* 70577 IMPRESSION: No acute findings. Dictated By:Adriel Martinez DOSigned By:Adriel Martinez DOSigned Date/Time:12/13/21 1615DD/ [address] [place], [place] [address]MYrg ReportSigned Patient: Jennifer Novak #: [id number]: 7Acct#:[id number]/Sex: 66 / FADM Date: 12/13/21Loc: ERRoom/Bed:Attending Dr: Ordering Provider/Ordering MD: Dagoberto Sena MD Date of Service: 12/13/21 Procedure(s): XR knee RT 1-2V 85437 Accession Number(s): [id number] Report Number: [id number] PROCEDURE INFORMATION: Exam: XR Right Knee Exam date and time: 12/13/2021 1:52 PM Age: 66 years old Clinical indication: Injury or trauma; Blunt trauma; Bilateral; Patient HX: Knee and lower leg pain after fall; Additional info: Knee pain TECHNIQUE: Imaging protocol: XR Right knee. Views: 1 or 2 views. COMPARISON: No relevant prior studies available. FINDINGS: Bones/joints: Osseous structures are intact. Negative for fracture. Mild joint space narrowing of the medial compartment. Soft tissues: Normal. XR/XR knee RT 1-2V 72247 IMPRESSION: No acute findings. Dictated By:Adriel Martinez DOSigned By:Adriel Martinez DOSigned Date/Time:12/13/21 1612DD/ [address] [address]YYkj ReportSigned Patient: Jennifer Novak #: [id number]: 1955cct#:[id number] e/Sex: 66 / FADM Date: 12/13/21Loc: ERRoom/Bed:Attending Dr: Ordering Provider/Ordering MD: Dagoberto Sena MD Date of Service: 12/13/21 Procedure(s): XR knee LT 1-2V 64516 Accession Number(s): [id number] Report Number: [id number] PROCEDURE INFORMATION: Exam: XR Left Knee Exam date and time: 12/13/2021 1:52 PM Age: 66 years old Clinical indication: Injury or trauma; Blunt trauma; Bilateral; Patient HX: Knee and lower leg pain after fall; Additional info: Knee pain TECHNIQUE: Imaging protocol: XR Left knee. Views: 1 or 2 views. COMPARISON: No relevant prior studies available. FINDINGS: Bones/joints: Osseous structures are intact. Negative for fracture. Mild joint space narrowing of the medial compartment. Soft tissues: Normal. XR/XR knee LT 1-2V 94128 IMPRESSION: No acute findings. Dictated By:Adriel Martinez DOSigned By:Adriel Martinez DOSigned Date/Time:12/13/21 1542DD/ [address] [place], [place] [address]AUjw ReportSigned Patient: Jennifer Novak #: [id number]: 7Acct#:[id number]/Sex: 66 / FADM Date: 12/13/21Loc: ERRoom/Bed:Attending Dr: Ordering Provider/Ordering MD: Dagoberto Sena MD Date of Service: 12/13/21 Procedure(s): XR shoulder RT min 2V* 39764 Accession Number(s): [id number] Report Number: [id number] PROCEDURE INFORMATION: Exam: XR Right Shoulder Exam date and time: 12/13/2021 1:52 PM Age: 66 years old Clinical indication: Injury or trauma; Blunt trauma (contusions or hematomas); Patient HX: Pain after fall bilateral shoulders; Additional info: Eval FX TECHNIQUE: Imaging protocol: XR Right shoulder. Views: 2 or more views. COMPARISON: CR XR chest 1V portable [id number] 05/14/2021 11:42 AM FINDINGS: Bones/joints: Osseous structures are intact. Negative for fracture or dislocation. Soft tissues: Normal. XR/XR shoulder RT min 2V* 89585 IMPRESSION: No acute findings. Dictated By:Adriel Martinez DOSigned By:Adriel Martinez DOSnikhil Ric e/Time:12/13/21 1614DD/ [address] [place], [place] [address]UYuo ReportSigned Patient: Jennifer Novak #: [id number]: 7Acct#:[id number]/Sex: 66 / FADM Date: 12/13/21Loc: ERRoom/Bed:Attending Dr: Ordering Provider/Ordering MD: Dagoberto Sena MD Date of Service: 12/13/21 Procedure(s): XR tibia fibula LT 2V 05196 Accession Number(s): [id number] Report Number: [id number] PROCEDURE INFORMATION: Exam: XR Left Tibia and Fibula Exam date and time: 12/13/2021 1:52 PM Age: 66 years old Clinical indication: Injury or trauma; Blunt trauma; Bilateral; Patient HX: Knee and lower leg pain after fall; Additional info: Tib fib pain TECHNIQUE: Imaging protocol: XR Left tibia and fibula. Views: 2 views. COMPARISON: No relevant prior studies available. FINDINGS: Bones/joints: Suspected nondisplaced oblique fracture of the distal fibula seen only on oblique view. The rest of the visualized tibia and fibula are intact. Soft tissues: Normal. XR/XR tibia fibula LT 2V 07300 IMPRESSION: Suspected nondisplaced oblique fracture of the distal fibula seen on only one view. Would suggest dedicated left ankle radiographs for confirmation. Dictated By:Adriel Martinez DOSigned By:Adriel Martinez DOSigned Date/Time:12/13/21 1606DD/ [address] [id number] ReportSigned Patient: Jennifer Novak #: [id number]: 1955cct#:[id number]/Sex: 66 / FADM Date: 12/13/21Loc: ERRoom/Bed:Attending Dr: Ordering Provider/Ordering MD: Dagoberto Sena MD Date of Service: 12/13/21 Procedure(s): XR tibia fibula RT 2V 67210 Accession Number(s): [id number] Report Number: [id number] PROCEDURE INFORMATION: Exam: XR Right Tibia and Fibula Exam date and time: 12/13/2021 1:52 PM Age: 66 years old Clinical indication: Injury or trauma; Blunt trauma; Bilateral; Patient HX: Knee and lower leg pain after fall; Additional info: Tib fib pain TECHNIQUE: Imaging protocol: XR Right tibia and fibula. Views: 2 views. COMPARISON: No relevant prior studies available. FINDINGS: Bones/joints: Tibia and fibula are intact. Negative for fracture. Soft tissues: Normal. XR/XR tibia fibula RT 2V 13495 IMPRESSION: No acute findings. Dictated By:Adriel Martinez DOSigned By:Adriel Martinez DOSigned Date/Time:12/13/21 1608DD/ [address] [address]BAeb ReportSigned Patient: Jennifer Novak #: [id number]: 7Acct#:[id number]/Sex: 66 / FADM Date: 12/13/21Loc: ERRo om/Bed:Attending Dr: Ordering Provider/Ordering MD: Dagoberto Sena MD Date of Service: 12/13/21 Procedure(s): XR ankle LT min 3V* 42963 Accession Number(s): [id number] Report Number: [id number] PROCEDURE INFORMATION: Exam: XR Left Ankle Exam date and time: 12/13/2021 4:14 PM Age: 66 years old Clinical indication: Injury or trauma; Fall; Blunt trauma; Ankle; Left; Additional info: Eval for obliqu FX, mortise view please TECHNIQUE: Imaging protocol: XR Left ankle. Views: 3 or more views. COMPARISON: CR (LOW EXM, ) 12/13/2021 3:10 PM FINDINGS: Bones/joints: Enthesophytes are present off the os calcis at the Achilles insertion and plantar fascia origin. There is a benign os peroneus accessory ossicle. There is a normal accessory os trigonum accessory ossicle. Subtle oblique lucency through the distal fibula is seen only on the frontal view however raises concern for nondisplaced fracture. Soft tissues: There is edema in the soft tissues. Vasculature: There are peripheral vascular calcifications. XR/XR ankle LT min 3V* 05528 IMPRESSION: 1. Subtle oblique lucency through the distal fibula is seen only on the frontal view however raises concern for nondisplaced fracture. 2. There is edema in the soft tissues. Dictated By:Aarti Davis MDSigned By:Aarti Davis MDSigned Date/Time:12/13/21 1739DD/ 1614 Discharge Plan Discharge Patient Disposition: Admitted As Inpatient Admit Provider: Morris Doe Clinical Impression: Fall, Syncope and collapse, Acute exacerbation of CHF (congestive heart failure), Fracture of distal end of fibula Condition: Stable Coding Level of Care Code ED [employer] Research Technician for Anel Fwcharmaine Exam Comprehensive
--- NOTE | 2021-12-13 13:32 | XRR_ITS ---
PROCEDURE INFORMATION: Exam: XR Left Shoulder Exam date and time: 12/13/2021 1:32 PM Age: 66 years old Clinical indication: Injury or trauma; Blunt trauma (contusions or hematomas); Patient HX: Pain after fall bilateral shoulders; Additional info: Eval for fracture or injuries TECHNIQUE: Imaging protocol: XR Left shoulder. Views: 2 or more views. COMPARISON: CR XR chest 1V portable [id number] 05/14/2021 11:42 AM FINDINGS: Bones/joints: Osseous structures are intact. Negative for fracture or dislocation. Soft tissues: Normal. XR/XR shoulder LT min 2V* [id number] IMPRESSION: No acute findings.
--- NOTE | 2021-12-13 13:52 | XRR_ITS ---
PROCEDURE INFORMATION: Exam: XR Left Tibia and Fibula Exam date and time: 12/13/2021 1:52 PM Age: 66 years old Clinical indication: Injury or trauma; Blunt trauma; Bilateral; Patient HX: Knee and lower leg pain after fall; Additional info: Tib fib pain TECHNIQUE: Imaging protocol: XR Left tibia and fibula. Views: 2 views. COMPARISON: No relevant prior studies available. FINDINGS: Bones/joints: Suspected nondisplaced oblique fracture of the distal fibula seen only on oblique view. The rest of the visualized tibia and fibula are intact. Soft tissues: Normal. XR/XR tibia fibula LT 2V [id number] IMPRESSION: Suspected nondisplaced oblique fracture of the distal fibula seen on only one view. Would suggest dedicated left ankle radiographs for confirmation.
--- NOTE | 2021-12-13 13:52 | XRR_ITS ---
PROCEDURE INFORMATION: Exam: XR Right Shoulder Exam date and time: 12/13/2021 1:52 PM Age: 66 years old Clinical indication: Injury or trauma; Blunt trauma (contusions or hematomas); Patient HX: Pain after fall bilateral shoulders; Additional info: Eval FX TECHNIQUE: Imaging protocol: XR Right shoulder. Views: 2 or more views. COMPARISON: CR XR chest 1V portable [id number] 05/14/2021 11:42 AM FINDINGS: Bones/joints: Osseous structures are intact. Negative for fracture or dislocation. Soft tissues: Normal. XR/XR shoulder RT min 2V* [id number] IMPRESSION: No acute findings.
--- NOTE | 2021-12-13 13:52 | XRR_ITS ---
PROCEDURE INFORMATION: Exam: XR Left Knee Exam date and time: 12/13/2021 1:52 PM Age: 66 years old Clinical indication: Injury or trauma; Blunt trauma; Bilateral; Patient HX: Knee and lower leg pain after fall; Additional info: Knee pain TECHNIQUE: Imaging protocol: XR Left knee. Views: 1 or 2 views. COMPARISON: No relevant prior studies available. FINDINGS: Bones/joints: Osseous structures are intact. Negative for fracture. Mild joint space narrowing of the medial compartment. Soft tissues: Normal. XR/XR knee LT 1-2V 21240 IMPRESSION: No acute findings.
--- NOTE | 2021-12-13 13:52 | XRR_ITS ---
PROCEDURE INFORMATION: Exam: XR Right Knee Exam date and time: 12/13/2021 1:52 PM Age: 66 years old Clinical indication: Injury or trauma; Blunt trauma; Bilateral; Patient HX: Knee and lower leg pain after fall; Additional info: Knee pain TECHNIQUE: Imaging protocol: XR Right knee. Views: 1 or 2 views. COMPARISON: No relevant prior studies available. FINDINGS: Bones/joints: Osseous structures are intact. Negative for fracture. Mild joint space narrowing of the medial compartment. Soft tissues: Normal. XR/XR knee RT 1-2V 67278 IMPRESSION: No acute findings.
--- NOTE | 2021-12-13 13:52 | XRR_ITS ---
PROCEDURE INFORMATION: Exam: XR Right Tibia and Fibula Exam date and time: 12/13/2021 1:52 PM Age: 66 years old Clinical indication: Injury or trauma; Blunt trauma; Bilateral; Patient HX: Knee and lower leg pain after fall; Additional info: Tib fib pain TECHNIQUE: Imaging protocol: XR Right tibia and fibula. Views: 2 views. COMPARISON: No relevant prior studies available. FINDINGS: Bones/joints: Tibia and fibula are intact. Negative for fracture. Soft tissues: Normal. XR/XR tibia fibula RT 2V [id number] IMPRESSION: No acute findings.
[2021-12-13 14:37] LABS: Basophils # 0.1 10^3/uL (0.0-0.1); Basophils % 1.3 %; Eosinophils # 0.2 10^3/uL (0.0-0.8); Eosinophils % 2.9 %; Hematocrit 37.2 % (37.0-47.0); Lymphocytes # 1.3 10^3/uL (0.8-4.8); Mean Corpuscular HGB Conc 32.3 g/dL (30.0-36.0); Mean Corpuscular Hemoglobin 28.2 pg (28.0-34.0); Mean Corpuscular Volume 87.3 fl (81-99); Mean Platelet Volume 10.9 fL (7.4-10.4); Monocytes # 0.6 10^3/uL (0.2-0.9); Monocytes % 7.7 %; Neutrophils # 5.33 10^3/uL (1.8-7.7); Neutrophils % 70.8 %; Nucleated Red Blood Cells % 0 %; Platelet Count 219 10^3/cmm (130-400); Red Blood Count 4.26 10^6/uL (4.1-5.3); Red Cell Distribution Width 13.9 % (12.1-15.1); White Blood Count 7.5 10^3/uL (4.0-10.0)
[2021-12-13 14:52] LABS: D Dimer 0.57 ug/mIFEU (0-0.59)
[2021-12-13 15:02] LABS: Troponin(5th) Baseline 23 ng/L (0-10)
[2021-12-13 15:07] LABS: Blood Urea Nitrogen 24 mg/dL (8-23); Calcium 9.9 mg/dL (8.5-10.5); Carbon Dioxide 27 mmol/L (22-29); Chloride 95 mmol/L (98-107); Glucose 216 mg/dL (65-115); Magnesium 2.2 mg/dL (1.7-2.3); NT Pro B Type Natriuretic Pept 627 pg/mL (0-125); Osmolality Calculated 291 mOsm/kg (285-295); Sodium 135 mmol/L (136-145)
[2021-12-13 15:09] LABS: Anion Gap 17.6 (5-19); Potassium 4.6 mmol/L (3.5-5.1)
--- NOTE | 2021-12-13 15:25 | ECG_ITS ---
[facility] Test Date: 2021-12-13 Pat Name: Jennifer Novak Department: Room: Gender: Female Supervisor Production Managing: : 1955 Requested By: Dagoberto Sena Order Number: [id number] Reading MD: Sammy Aquino M.D. Measurements Intervals [place] Rate: 80 P: 73 AK: 208 QRS: -88 QRSD: 154 T: 48 QT: 443 QTc: 513 Interpretive Statements SINUS RHYTHM LEFT AXIS DEVIATION [QRS AXIS < -30] RIGHT BUNDLE BRANCH BLOCK [120+ ms QRS DURATION, UPRIGHT V1, 40+ ms S IN I/aVL/V4/V5/V6] Compared to ECG 05/14/2021 13:24:33 Left-axis deviation now present Right-axis deviation no longer present Electronically Signed On 12-13-2021 20:14:45 [facility] by Sammy Aquino M.D. [id number]
--- NOTE | 2021-12-13 16:14 | XRR_ITS ---
PROCEDURE INFORMATION: Exam: XR Left Ankle Exam date and time: 12/13/2021 4:14 PM Age: 66 years old Clinical indication: Injury or trauma; Fall; Blunt trauma; Ankle; Left; Additional info: Eval for obliqu FX, mortise view please TECHNIQUE: Imaging protocol: XR Left ankle. Views: 3 or more views. COMPARISON: CR (LOW EXM, ) 12/13/2021 3:10 PM FINDINGS: Bones/joints: Enthesophytes are present off the os calcis at the Achilles insertion and plantar fascia origin. There is a benign os peroneus accessory ossicle. There is a normal accessory os trigonum accessory ossicle. Subtle oblique lucency through the distal fibula is seen only on the frontal view however raises concern for nondisplaced fracture. Soft tissues: There is edema in the soft tissues. Vasculature: There are peripheral vascular calcifications. XR/XR ankle LT min 3V* [id number] IMPRESSION: 1. Subtle oblique lucency through the distal fibula is seen only on the frontal view however raises concern for nondisplaced fracture. 2. There is edema in the soft tissues.
[2021-12-13 16:46] LABS: Troponin 5 2HR 21.53 ng/L (0-10)
[2021-12-13 16:51] VITALS: BP 160/77; BP 164/102; BP 201/117; PULSE 78; PULSE 79; PULSE 84
[2021-12-13 16:52] LABS: Troponin 5 2HR Delta -1.47 ABS# (0-10)
[2021-12-13] MEDS: FUROsemide 10 mg/mL SDV 10mL 60 MG IVP (17:02)
[2021-12-13] MEDS: acetaminophen 500 mg Tablet PO (17:02)
[2021-12-13] MEDS: morphine 4 mg/mL SDV 1 mL 2 MG IVP (17:10)
[2021-12-13 18:24] LABS: Cortisol Random 13.33 ug/dL (2.47-19.5)
[2021-12-13 18:37] VITALS: BP 183/79; PULSE 79; RESP 20; O2SAT 100
--- NOTE | 2021-12-13 18:42 | PC.NURSE ---
Applied posterior splint with stirrup to left leg/ankle per orders.
--- NOTE | 2021-12-13 19:08 | P.HP_ITS ---
Providers/Chief Complaint Admitting Physician: Morris Doe Primary Care Provider: Lorenzo Muller, RECREATIONAL VEHICLE RESORT MANAGER-C Chief Complaint: PAIN TO FACE S/P FALL History of Present Illness 66-year-old lady fell at home when trying to walk towards arranging phone. She does not remember how she ended up falling. She feels she may have blacked out. Last x-ray of members was seeing the floor coming towards her. She had epistaxis afterward. Having a headache. She had pain in her left ankle, left knee. In ER chest x-ray, face CT, head CT, bilateral shoulder and knee x-rays, tib-fib and left ankle repeat x-rays were performed, with left tib-fib and ankle x-rays showing subtle oblique lucency through the distal fibula seen only on the frontal view however raising concern for nondisplaced fracture. Splint is being applied in ER. She reports intermittent episodes of dizziness recently. She denies having vertigo prior to the episodes. She reports dizziness happens when she stands or tries walking. She denies palpitations. Chest pain or pressure. She is chronically short of breath due to COPD and chronically wears 2 L of oxygen. She is not sure whether she wore her oxygen when she was walking toward the phone although she usually does. She denies recent fevers, chills, nausea vomiting or diarrhea, muscle aches or headaches. She recently feels has been having more swelling. She has been taking her Lasix dose of which has been increased up to 80 mg. Recently she was prescribed a new medication by her neurologist, although she is not sure whether or not she has actually started this medication. There have been delays with her picking up from the pharmacy. But she may have started it. She is not always able to keep track of taking her medication as well. Her son or grandson sometimes help her with the medications. After an error made by home health she asked not to have the home health nurse helping with the medications. She misses doses sometimes when she is not sure whether she had taken a medication or not. This way she tries to avoid doubling medication doses accidentally. She just had a mammogram to further assess a painful lump in her breast. She has been experiencing swelling especially in the left arm. Review of Systems Const: Reports: other (headache); Denies: fever(s), chills, body aches or malaise Eyes: Denies: change in vision or eye redness ENMT: Denies: throat pain, oral sores or ear or mastoid pain Card: Reports: edema; Denies: chest pain, pre-syncope or dyspnea on exertion Resp: Reports: dyspnea (chronic); Denies: productive cough, change in phlegm color or hemoptysis GI: Denies: abdominal pain, nausea, vomiting, diarrhea, constipation, hematochezia or melena : Denies: flank pain, urinary frequency or hematuria Musc: Reports: other (L ankle pain, L knee pain after fall); Denies: back pain, joint swelling or joint redness Skin/Breast: Denies: rash, sores or new lesions Neuro: Denies: headache(s), numbness in extremities, weakness in extremities, dizziness, confusion or seizure-like activity Endo: Denies: polyuria or polydipsia Kobe/Lymph: Denies: easy bleeding or purpura All/Imm: Denies: urticaria, throat swelling or tongue swelling Medications/Allergies Home Medications Medication Instructions Recorded Confirmed Last Taken Type pen needle, diabetic 31 gauge x #1,200 each 12/20/19 12/13/21 Unknown History 04/05 nitroglycerin 0.4 mg sublingual 0.4 mg SUBLINGUAL Q5M PRN 01/21/20 12/13/21 1 Month Ago History tablet ~06/09/21 blood-glucose meter #1 each 05/16/20 12/13/21 Unknown Rx Vitamin B-12 1 tab PO DAILY 05/14/21 12/13/21 12/12/21 History cholecalciferol (vitamin D3) 125 mcg PO DAILY 05/14/21 12/13/21 12/12/21 History [Vitamin D3] insulin aspart U-100 [Novolog 6 - 27 unit SUBCUT TID 05/14/21 12/13/21 2 Days Ago History Flexpen U-100 Insulin] ~07/08/21 dicyclomine 20 mg tablet See Rx Instructions PO TID PRN #60 09/28/21 12/13/21 Unknown Rx tab hydroxychloroquine 200 mg tablet 200 mg PO BID #60 tab 09/28/21 12/13/21 12/12/21 Rx metoprolol tartrate 50 mg tablet 25 mg PO BID tab 09/28/21 12/13/21 12/12/21 History prednisone 2.5 mg tablet 2.5 mg PO DAILY #90 tab 09/28/21 12/13/21 12/12/21 Rx albuterol sulfate 90 mcg/actuation 2 puff INHALATION Q4H PRN #8.5 gm 10/29/21 12/13/21 12/13/21 Rx aerosol inhaler apixaban 5 mg tablet 5 mg PO BID@0900,2100 #60 tab 10/29/21 12/13/21 12/12/21 Rx fluoxetine 40 mg capsule 40 mg PO DAILY@2100 #30 cap 10/29/21 12/13/21 12/12/21 Rx hydroxyzine pamoate 25 mg capsule 25 mg PO BID PRN #60 cap 10/29/21 12/13/21 Unknown Rx methocarbamol 500 mg tablet 500 mg PO TID PRN #90 tab 10/29/21 12/13/21 Unknown Rx nystatin 100,000 unit/gram topical 1 applic TOPICAL TID #60 g 11/18/21 12/13/21 Unknown Rx powder furosemide 80 mg tablet 80 mg PO DAILY #90 tab 11/24/21 12/13/21 12/12/21 Rx potassium chloride 20 mEq 20 meq PO DAILY #90 tab 11/24/21 12/13/21 12/12/21 Rx tablet,extended release compression socks, medium #2 ea 12/01/21 12/13/21 Unknown Rx wheelchair cushions #1 ea 12/02/21 12/13/21 Unknown Rx primidone 50 mg tablet 50 mg PO BID #60 tab 12/07/21 12/13/21 12/12/21 Rx clindamycin phosphate 1 % lotion See Rx Instructions .ROUTE 12/11/21 12/13/21 Unknown Rx .COMPLEX #60 milliliter triamcinolone acetonide 0.1 % 1 applic TOPICAL DAILY PRN #30 gm 12/11/21 12/13/21 Unknown Rx topical ointment acetaminophen 325 mg PO Q6H PRN 12/13/21 12/13/21 Unknown History hydralazine See Rx Instructions .ROUTE .COMPLEX 12/13/21 12/13/21 12/12/21 History insulin detemir U-100 [Levemir 150 unit SUBCUT QAM 0112/13/21 12/12/21 History FlexTouch U-100 Insuln] isosorbide mononitrate 60 mg PO DAILY 12/13/21 12/13/21 12/12/21 History pantoprazole 40 mg PO DAILY 12/13/21 12/13/21 12/12/21 History Allergies Allergy/AdvReac Type Severity Reaction Status Date / Time acetaminophen [From [place]] Allergy Unknown Verified 12/13/21 13:19 bacitracin Allergy ADR-Nausea Verified 12/13/21 13:19 codeine Allergy ADR-Nausea Verified 12/13/21 13:19 hydrocodone [From Williams] Allergy Unknown Verified 12/13/21 13:19 Latex, Natural Rubber Allergy Unknown Verified 12/13/21 13:19 morphine Allergy ADR-Itching Verified 12/13/21 13:19 neomycin Allergy ALGY-Rash Verified 12/13/21 13:19 [From Neosporin ([id number])] oxycodone Allergy Unknown Verified 12/13/21 13:19 polymyxin B Allergy ALGY-Rash Verified 12/13/21 13:19 [From Neosporin ([id number])] Sulfa (Sulfonamide Allergy ADR-Nausea Verified 12/13/21 13:19 Antibiotics) sulfamethoxazole Allergy Unknown Verified 12/01/21 11:32 [From Bactrim] trimethoprim [From Bactrim] Allergy Unknown Verified 12/01/21 11:32 PFSH Acute PFSH: Medical History Atrial flutter Benign hypertension Chronic major depressive disorder Chronic obstructive pulmonary disease, unspecified CKD (chronic kidney disease) COPD, moderate Coronary artery fistula Dietary noncompliance Diverticulosis Environmental and seasonal allergies Fibromyalgia High risk medication use IBS (irritable bowel syndrome) Inflammatory arthritis Noncompliance with diabetes treatment Not consistent with diet Obesity Pain of both breasts Polyarthralgia Reduced ejection fraction concurrent with and due to chronic heart failure Situational anxiety SOB (shortness of breath) Type 2 diabetes mellitus with diabetic chronic kidney disease Vitamin D deficiency Surgical History History of section 4 times History of cholecystectomy History of hysterectomy with BSO History of tonsillectomy Hx of colonoscopy Hx of esophagogastroduodenoscopy Family History Brother Bleeding disorder CAD (coronary artery disease) Father CAD (coronary artery disease) Chronic kidney disease (CKD) Mother CAD (coronary artery disease) Cancer Diabetes Family/Other Cancer Other CHF (congestive heart failure) Heart disease Hypertension Denies family history of Clotting disorder Dementia Suicide Anesthesia complication Lung disease Stroke Social History Smoking and tobacco status: former smoker Alcohol intake: never Substance/Drug Use: never Lives independently: No Household members: other Details: Son, sometimes grandson Marital status: Single Vitals/I&O/Wt Last Vital Signs Temp 98.6 F 12/13/21 13:19 Pulse 79 12/13/21 18:37 Resp 20 H 12/13/21 18:37 BP 183/79 12/13/21 18:37 Pulse Ox 100 12/13/21 18:37 Weight last 48 hrs Weight 145.15 kg Physical Exam Narrative: EXAM NARRATIVE: Family accompanying her in her room. Const: COMMON NORMALS: no acute distress, patient oriented x3 and alert GENERAL APPEARANCE: cooperative and anxious NUTRITIONAL APPEARANCE: obese ORIENTATION/CONSCIOUSNESS: Yes awake HENMT: COMMON NORMALS: oropharynx normal Neck/C-Spine: COMMON NORMALS: no JVD Resp: COMMON NORMALS: normal respiratory effort and clear to auscultation bilaterally AUSCULTATION: clear to auscultation bilaterally Cardio: COMMON NORMALS: no JVD, regular rhythm, S1 normal heart sound present, S2 normal heart sound present and No murmurs present (Cardio) RHYTHM: regular rhythm HEART SOUNDS: S1 normal heart sound present and S2 normal heart sound present GI: COMMON NORMALS: Normal to inspection, nondistended, normoactive bowel sounds present, Soft to palpation and non-tender PALPATION: Yes Soft to palpation Extremity: COMMON NORMALS: no joint enlargement GENERAL: Yes edema (1-2+ BL LE) Neuro: COMMON NORMALS: patient oriented x3 and moves all extremities Skin: COMMON NORMALS: no rashes or lesions noted GENERAL SKIN EXAM: no rashes or lesions noted Data : 12/13/21 14:34 12/13/21 14:34 A&P Assessment and plan (1) Syncope and collapse: Possible syncopal episode at least presyncope with fall, with prodromal symptoms of dizziness, no palpitations, chest pain. Does not appear to have syncopized until after the fall as remembers the floor approaching. No seizure- like activity, remembers being short time down, but not sure how long. Does not appear to have had postictal symptoms. Discussed with her and family a number of possible causes. Recently with CHF exacerbation, swelling, dyspnea, has increased her Lasix dose recently to 80 mg. Does not wear CPAP at night with LIZ. Discussed with her some of the dyspnea may be due to untreated LIZ, resulting in dyspnea, concomitantly may be i ntravascularly depleted, possibly leading to orthostasis and syncope. Does not appear to be orthostatic in ER, but was not stood up (in spite of documentation), set up for at least 5 minutes, however, with blood pressure increasing. Currently blood pressure is very high, her, and not necessarily r epresentative of how it was at home. Would definitely recheck orthostatics tomorrow once she is settled in more. For now avoid additional Lasix she has received a dose already in ER. Monitor blood pressures, I&O. Blood pressure reported low in EMS, initial blood pressure low here as well, 108/62. Check TSH. She does appear to have adrenal insufficiency component as well as recheck serum cortisol which is 13.33. We will start stress dose hydrocortisone currently, taper off gradually. Additionally she has difficulties with medications. Suggested that she set up with home health nursing to assist in setting up her medications for her daily. She tries to avoid doubling up on doses by missing medications if she does not remember if she had taken it. She had declined nursing assistance with home health due to previous mistake made on medications. Discussed with her if not considering home health, may need family help given son and grandson help her otherwise. Encouraged her to consider options, we may set her up with home health care if she allows. Recently also started on primidone which she is not sure in fact whether she is taking she may be. A potential adverse effect is ataxia, would avoid to avoid contributing given the rather dramatic fall which does not appear to have been preceded by syncope. Encouraged to make sure she is wearing oxygen anytime she is getting up and getting around. Would get home O2 assessment prior to discharge to make sure she is still okay on only 2 L with exertion. Status: Acute (2) Fall: As above stress dose steroids for adrenal insufficiency. Also recheck orthostatics in the morning. PT, OT. Hold additional Lasix for now due to concern of overdiuresis. DC primidone. Check TSH. Check UA. Will need follow-up with orthopedics for resultant fracture. Splinted in ER. She avoids opioids due to prior bad reaction. Tylenol as needed for now. Hopefully may avoid need for NSAIDs. Status: Acute (3) Acute exacerbation of CHF (congestive heart failure): Recent suspected acute CHF exacerbation, diastolic, Lasix dose had been increased. However, with concern of intravascular depletion. After dose received tonight, hold off restarting additional Lasix for now. Reassess orthostatics, vitals once she settles in. Starting treatment for adrenal insufficiency as above. Then resume Lasix, possibly at her more usual dosing. NT proBNP 627, which is on the lower end of prior values with elevation at least in part possibly due to lung disease. Status: Acute (4) Fracture of distal end of fibula: After fall today. Splinted in ER. NWB. PT, OT. Follow-up with orthopedi cs in office. Status: Acute (5) Essential tremor: Recently started on primidone. Would avoid continuation to avoid contributing ataxia given fall. Status: Acute (6) Pain of both breasts: Status: Acute (7) SOB (shortness of breath): Status: Acute (8) Epistaxis: Shortly after fall. Resolved. Hold off Eliquis for now. SCD on right leg only. Due to nasal trauma declines COVID-19 testing, although apart from headache which may be after fall, and recent dyspnea does not have other symptoms. Status: Acute Additional A&P Information Breast swelling: She is following up with her primary care's office with regards to left breast swelling and left arm swelling which was recently imaged with mammography due to concern for malignancy. This is contributed recently to her worries. LIZ: Not compliant with CPAP. Would refer for sleep study. She has not had one in years. She would be willing to get reassessed and fitted for a different type of mask. COPD, not in exacerbation A number of additional comorbidities as per [facility] Attestations Medical Necessity Statement*: Place in observation for additional assessment following fall and syncope, possible preceding presyncope, recent CHF, medication adjustments, PT, OT assessment after fibular fracture. Coding Level of Care Code Acute Toll Relief Operator for Chg Fwd Diagnoses Syncope and collapse R55 Fall W19.XXXA Acute exacerbation of CHF (congestive heart failure) I50.9 Fracture of distal end of fibula S82.839A Essential tremor G25.0 Pain of both breasts N64.4 SOB (shortness of breath) R06.02 Epistaxis R04.0
--- NOTE | 2021-12-13 19:25 | ECG_ITS ---
[facility] Test Date: 2021-12-13 Pat Name: Jennifer Novak Department: Room: ED Gender: Female Manager Production: : 1955 Requested By: Dagoberto Sena Order Number: [id number] Cierra MD: Sammy Aquino M.D. Measurements Intervals [place] Rate: 78 P: -7 MO: 188 QRS: 269 QRSD: 151 T: 44 QT: 442 QTc: 505 Interpretive Statements SINUS RHYTHM RIGHT AXIS DEVIATION [QRS AXIS > 100] RIGHT BUNDLE BRANCH BLOCK [120+ ms QRS DURATION, UPRIGHT V1, 40+ ms S IN I/aVL/V4/V5/V6] Compared to ECG 12/13/2021 14:08:10 Right-axis deviation now present Left-axis deviation no longer present Electronically Signed On 12-13-2021 20:15:26 [employer]OMET[employer] by Sammy Aquino M.D. [id number]
[2021-12-13] MEDS: hydrocortisone 100 mg/2 mL SDV IVP (20:14)
[2021-12-13 20:27] LABS: Troponin 5 6HR 22.12 ng/L (0-10)
[2021-12-13 20:29] LABS: Troponin 5 6HR Delta -0.88 ng/L (0-12)
[2021-12-13 20:48] LABS: Glucose Point of Care 193 mg/dL (70-110)
[2021-12-13] MEDS: insulin lispro 100 unit/1 mL SUBCUT (20:48)
[2021-12-13 20:51] LABS: Thyroid Stimulating Hormone 0.99 uIU/mL (0.27-4.20)
--- NOTE | 2021-12-13 20:51 | PC.NURSE ---
BS was 193, 6 units insulin given SQ
[2021-12-13 22:25] VITALS: BP 119/95; PULSE 83; RESP 18; O2SAT 98
[2021-12-13 22:53] LABS: Glucose Point of Care 267 mg/dL (70-110)
[2021-12-14] VITALS (11 sets, daily range): BP systolic 83–208; BP diastolic 44–96; PULSE 73–89; RESP 16–22; TEMP 36.7–37.2; O2SAT 93–99
[2021-12-14] MEDS: methocarbamol 500 mg Tablet PO (00:01)
[2021-12-14 00:38] LABS: Add Urine Microscopic? YES; Bilirubin Urine Neg (Negative); Blood Urine 2+ (Negative); Glucose Urine UA Norm (Normal); Ketones Urine Negative (Negative); Leukocyte Esterase Urine Negative (Negative); Nitrate Urine Negative (Negative); Protein Urine 2+ (Negative); Specific Gravity, Urine 1.005 (1.005-1.030); Urine Appearance Clear (CLEAR); Urine Color Yellow (Yellow); Urobilinogen Urine Norm (Negative); pH Urine 7 (5-7)
[2021-12-14 00:40] LABS: Add Urine Culture? No; Bacteria Urine TRACE /hpf; Squamous Epithelial Cell Urine 0-4 /hpf (0-5); WBC Urine 0-4 /hpf (0-5)
[2021-12-14] MEDS: nystatin powder 15 gm Btl 1 APPLIC TOPICAL ×3 (01:31→20:06)
[2021-12-14] MEDS: hydrocortisone 100 mg/2 mL SDV IVP ×2 (01:31→09:19)
[2021-12-14 04:12] LABS: Glucose Point of Care 481 mg/dL (70-110)
[2021-12-14] MEDS: hyDRALAzine 25 mg Tablet PO ×3 (06:16→15:50)
[2021-12-14 06:24] LABS: Glucose Point of Care 425 mg/dL (70-110)
[2021-12-14 07:07] LABS: Basophils % 0.5 %; Hematocrit 37.3 % (37.0-47.0); Hemoglobin 12.2 g/dL (11.5-15.3); Lymphocytes # 0.6 10^3/uL (0.8-4.8); Lymphocytes % 9.4 %; Mean Corpuscular HGB Conc 32.7 g/dL (30.0-36.0); Mean Corpuscular Volume 88.6 fl (81-99); Mean Platelet Volume 10.9 fL (7.4-10.4); Monocytes # 0.1 10^3/uL (0.2-0.9); Monocytes % 1.2 %; Neutrophils # 5.17 10^3/uL (1.8-7.7); Neutrophils % 88.6 %; Nucleated Red Blood Cells % 0 %; Platelet Count 179 10^3/cmm (130-400); Red Blood Count 4.21 10^6/uL (4.1-5.3); Red Cell Distribution Width 13.4 % (12.1-15.1); White Blood Count 5.8 10^3/uL (4.0-10.0)
[2021-12-14 07:08] LABS: Alanine Aminotransferase 22 U/L (0-33); Albumin Level 3.4 g/dL (3.5-5.2); Alkaline Phosphatase 99 IU/L (35-105); Anion Gap 16.8 (5-19); Aspartate Amino Transferase 20 U/L (0-32); Blood Urea Nitrogen 27 mg/dL (8-23); Calcium 8.8 mg/dL (8.5-10.5); Carbon Dioxide 29 mmol/L (22-29); Chloride 94 mmol/L (98-107); Globulin 2.9 g/dL (1.3-4.6); Glomerular Filtration Rate 45.2 mL/min (90-130); Glucose 438 mg/dL (65-115); Osmolality Calculated 304 mOsm/kg (285-295); Potassium 4.8 mmol/L (3.5-5.1); Sodium 135 mmol/L (136-145); Total Bilirubin 0.2 mg/dL (0.15-1.2); Total Protein 6.3 g/dL (6.6-8.7)
--- NOTE | 2021-12-14 08:48 | PC.CHAP ---
Pastoral Care Encounter/Spiritual Assessment Type of Contact [] Declined launderette attendant visit [] Patient/Family/Request visit [] Outpatient visit [] Follow-up visit [] Physician referral [] Code/Alert [x] Routine visit [] Staff referral [] Actively dying [] Patient sleeping [] Family support [] [] Out of room [] Palliative care [] [] Receiving care in room [] Pre-surgical visit [] Trauma [] Long length of stay [] ICU visit [] Other: Relational/Emotional Strength [] Patient feels connected with others/family/visitors/staff [] Distress [] Loneliness/isolation [] Abandonment Spirituality of Patient [] Person of Basia [] Attends Tenriism of their Basia [] Believes in Prayer [] Reads Bible or Congregational materials [] There are Spiritual issues to be addressed E Learning Developer Interventions [] Prayer [] Active listening [] Non-anxious presence [] Spiritual/emotional support [] Crisis/trauma care [] Spiritual counseling [] Bereavement support [] Provided bereavement packet [] Provided Bible/devotional materials [] Provided toy/stuffed animal, coloring book to patient or family member [] Provided Communion [] Anointing/[place] [] Salvation [x] Completed spiritual assessment [] Other: Impact on Illness or Injury [] Angry [] Fearful [] Anxious [] Often cries [] Exhaustion [] Unable to work [] Unable to attend scientology [] Unable to walk/stand [] Unable to read [] Unable to drive [] Unable to eat/drink [] Unable to sleep [] Unable to be with family [] Patient intubated [] Other: Summary patient gone home Time spent with patient
--- NOTE | 2021-12-14 08:50 | PC.NURSE ---
PT CO PAIN. DELEGATED TO VIRAL CHE TO [facility] HOSPITAL[facility] SHE VERBALIZED UNDERSTANDING.
--- NOTE | 2021-12-14 08:57 | PC.NURSE ---
DAUGHTER WOULD LIKE TO BE UPDATED WITH ANY CHANGES HER NAME IS LOUANN MCKENZIE HER PHONE NUMBER IS [phone].
--- NOTE | 2021-12-14 09:02 | PC.NURSE ---
ATTEMPTED REPORT NURSE UNAVAILABLE.
--- NOTE | 2021-12-14 09:11 | PC.NURSE ---
ATTEMPTED REPORT NURSE UNAVAILABLE.
[2021-12-14 09:14] LABS: Glucose Point of Care 396 mg/dL (70-110)
--- NOTE | 2021-12-14 09:18 | PC.NURSE ---
OFFERED TYLENOL PT REFUSED
[2021-12-14] MEDS: insulin lispro 100 unit/1 mL SUBCUT ×4 (09:19→22:24)
[2021-12-14] MEDS: metoprolol tartrate 50 mg Tablet 25 MG PO (09:25)
[2021-12-14] MEDS: hydroxychloroquine 200 mg Tablet PO ×2 (09:25→18:44)
[2021-12-14] MEDS: isosorbide mononitrate ER 60 mg Tablet PO (09:26)
[2021-12-14] MEDS: pantoprazole DR 40 mg Tablet PO (10:12)
[2021-12-14] MEDS: morphine 4 mg/mL SDV 1 mL 2 MG IVP (10:12)
--- NOTE | 2021-12-14 11:47 | PC.OT ---
OT EVALUATION ORDERS RECEIVED. PER P.T; ATTEMPTED EVALUATION AND PATIENT NAUSEATED AND IN TOO MUCH PAIN TO PARTICIPATE. WILL ATTEMPT AGAIN IN P.M.
--- NOTE | 2021-12-14 11:48 | PC.PT ---
Pt was put on hold due to being nauseated and laying on her side with a bucket next to her. Pt was also hurting all over from her fall. Pt does not want to be seen at this time.
--- NOTE | 2021-12-14 12:24 | CT_ITS ---
WS: [id number] CT NECK WITH CONTRAST HISTORY: fall TECHNIQUE: Contiguous 5 mm axial images are performed through the neck with intravenous contrast. Sag ittal and coronal reformats are also submitted. All CT scans at [facility] use at least one o f these dose optimization techniques: automated exposure control; mA and/or kV adjustment per patient size (includes targeted exams where dose is matched to clinical indication); or iterative reconstruc tion. CONTRAST: CONTRAST: Visipaque 320; 95 mL IV. DLP: 595.67 mGy.cm COMPARISON: 01/04/2020 Quality of this examination is significantly limited by breathing motion artifact and body habitus an d rotation. Nasopharynx, oropharynx, hypopharynx and larynx are unremarkable. No soft tissue masses or abnormal e nhancement. Torus tubarius and fossa of Rosenmuller and parapharyngeal fat are normal. No significant lymphadenopathy is identified. Inferior LEFT thyroid mass measures 2.6 x 1.8 cm. Mildly complex nodule in the inferior pole the LEFT thyroid is similar to the prior study with no progression. Straightening and slight reversal normal cervical lordosis. No fracture or malalignment is noted on t he CT. Visualized portions of the skull base demonstrate no abnormalities. Orbits and globes are within norm al limits. No soft tissue masses. Visualized paranasal sinuses and mastoid air cells are normal. Lung apices are clear. CT/CT neck w con* [id number] IMPRESSION: 1. Quality of this examination is limited by motion, body habitus and rotation . 2. No acute abnormality noted within the neck. 3. Stable LEFT thyroid nodule.
[2021-12-14 12:30] LABS: Glucose Point of Care 304 mg/dL (70-110)
[2021-12-14] MEDS: carvedilol 12.5 mg Tablet PO (12:38)
[2021-12-14] MEDS: sodium chloride 0.9% 1,000 ML 75 ML IV (12:39)
[2021-12-14] MEDS: iodixanol 320 mg/mL 100mL Btl IV (14:29)
[2021-12-14] MEDS: acetaminophen 325 mg Tablet PO (17:17)
--- NOTE | 2021-12-14 18:01 | P.PN_ITS ---
Subjective Subjective: Interval history: Hospital course, labs appreciated. On examination seen with family at bedside. Patient is on nasal cannula. Complaining of pain all over mostly in the neck on moving her neck from one side to other, both legs. Denies any nausea, vomiting, headache. Concerned of mammogram which was done recently. Asking for results. When seen again eating well. Vitals/I&O/Wt Last Vital Signs Temp 98.5 F 12/14/21 15:00 Pulse 83 12/14/21 15:59 Resp 17 12/14/21 15:59 BP 121/56 12/14/21 15:00 Pulse Ox 93 12/14/21 16:01 Weight last 48 hrs Weight 145.15 kg Physical Exam Narrative: EXAM NARRATIVE: Family accompanying her in her room. Const: COMMON NORMALS: no acute distress, patient oriented x3 and alert GENERAL APPEARANCE: cooperative and anxious NUTRITIONAL APPEARANCE: obese ORIENTATION/CONSCIOUSNESS: Yes awake HENMT: COMMON NORMALS: oropharynx normal Neck/C-Spine: COMMON NORMALS: no JVD Resp: COMMON NORMALS: normal respiratory effort and clear to auscultation bilaterally AUSCULTATION: clear to auscultation bilaterally Cardio: COMMON NORMALS: no JVD, regular rhythm, S1 normal heart sound present, S2 normal heart sound present and No murmurs present (Cardio) RHYTHM: regular rhythm HEART SOUNDS: S1 normal heart sound present and S2 normal heart sound present GI: COMMON NORMALS: Normal to inspection, nondistended, normoactive bowel sounds present, Soft to palpation and non-tender PALPATION: Yes Soft to palpation Extremity: COMMON NORMALS: no joint enlargement GENERAL: Yes edema (1-2+ BL LE) Neuro: COMMON NORMALS: patient oriented x3 and moves all extremities SENSORIUM/ORIENTATION: Yes alert Skin: COMMON NORMALS: no rashes or lesions noted GENERAL SKIN EXAM: no rashes or lesions noted Data : 12/14/21 06:10 12/14/21 06:10 A&P Assessment and plan (1) Syncope and collapse: Possible syncopal episode at least presyncope with fall, with prodromal symptoms of dizziness, no palpitations, chest pain. Does not appear to have syncopized until after the fall as remembers the floor approaching. No seizure- like activity, remembers being short time down, but not sure how long. Does not appear to have had postictal symptoms. Could be secondary to hypertensive urgency. Orthostatic negative. Continue with telemetry. TSH within normal limits. There is a concern for adrenal insufficiency yesterday but random cortisol within normal limits. Change methylprednisolone from 100 mg every 6 hourly to 50 mg daily. Will request taper within next 2 days. Could be secondary to multiple medications as patient seems to be noncompliant to her medications at home as per family members. Was recently started on primidone as per neurology as an outpatient. Potential adverse effect of tramadol is ataxia. We will hold off for now. Could be secondary to noncompliance to oxygen as patient is supposed to be on 2 L of oxygen on exertion. Status: Acute (2) Fall: As above. PT/OT. Avoid opiates. Tramadol and Tylenol as needed for pain., Appreciate CT head, knee and lower limb x-rays. Check CT neck. Status: Acute (3) Acute exacerbation of CHF (congestive heart failure): Diastolic heart failure. Most likely from uncontrolled hypertension. Echocardiogram done in July 2021 shows an EF of 67% with grade 2 diastolic dysfunction. Hold off on Lasix for now. Status: Acute (4) Diabetic neuropathy associated with type 2 diabetes mellitus: Check HbA1c. Blood sugars elevated most likely secondary to high steroid dose. Start on IV fluids at 75 cc/h. Insulin sliding scale at high-dose protocol. Continue with home dose of Levemir at 150 units every morning. Status: Acute Qualifiers: Diabetes mellitus complication detail: diabetic polyneuropathy Qualified Code(s): E11.42 - Type 2 diabetes mellitus with diabetic polyneuropathy (5) Uncontrolled hypertension: States her blood pressure usually at home are running at 220 systolics. Change metoprolol to carvedilol at 12.5 mg twice daily. Continue with home dose of Imdur at 60 mg daily. Change dose of hydralazine to 25 mg 3 times daily. Will uptitrate medications accordingly. Status: Acute (6) Fracture of distal end of fibula: Splinted in ER. Spoke with Dr. Richter. Will consult. Boot and physical therapy. Follow-up as an outpatient. Status: Acute (7) High risk medication use: Status: Acute (8) Mobility impaired: Status: Chronic (9) Epistaxis: Shortly after fall. Resolved. Hold off Eliquis for now. SCD on right leg only. Due to nasal trauma declines COVID-19 testing, although apart from headache which may be after fall, and recent dyspnea does not have other symptoms. Status: Acute (10) Pain of both breasts: Had recent mammogram done as an outpatient. Will need to follow-up as an outpatient for further evaluation and possible biopsy. Status: Acute (11) Essential tremor: Recently started on primidone. Would avoid continuation to avoid contributing ataxia given fall. Status: Acute Additional A&P Information LIZ: Not compliant with CPAP. Would refer for sleep study. She has not had one in years. She would be willing to get reassessed and fitted for a different type of mask. COPD, not in exacerbation A number of additional comorbidities as per H Full code. Cardiac carb consistent diet. Protonix for PUD prophylaxis. SCDs for DVT prophylaxis. Attestations Medical Necessity Statement*: Jennifer Anamika Novak is being changed to inpatient status as stay will now exceed 2 midnights. Ongoing hospital care is necessary for uncontrolled hypertension, uncontrolled type 2 diabetes mellitus, syncope under evaluation Time Spent in Patient Care: Greater than 35 minutes (>than 50% of time spent in counselling and/or direct pt care on unit) . Coding Level of Care Code Acute [employer] for Chg Fwd Diagnoses Syncope and collapse R55 Fall W19.XXXA Acute exacerbation of CHF (congestive heart failure) I50.9 Diabetic neuropathy associated with type 2 diabetes mellitus E11.42 Diabetes mellitus complication detail: diabetic polyneuropathy Uncontrolled hypertension I10 Fracture of distal end of fibula S82.839A High risk medication use Z79.899 Mobility impaired Z74.09 Epistaxis R04.0 Pain of both breasts N64.4 Essential tremor G25.0
[2021-12-14 18:29] LABS: Glucose Point of Care 346 mg/dL (70-110)
[2021-12-14] MEDS: carvedilol 3.125 mg Tablet PO (19:07)
[2021-12-14 22:32] LABS: Glucose Point of Care 259 mg/dL (70-110)
[2021-12-14] MEDS: hyDROXYzine 25 mg Capsule PO (23:39)
[2021-12-15] VITALS (7 sets, daily range): BP systolic 120–175; BP diastolic 62–75; PULSE 64–82; RESP 16–20; TEMP 36.7–37; O2SAT 96–99
[2021-12-15] MEDS: dicyclomine 20 mg Tablet PO (00:28)
[2021-12-15] MEDS: sodium chloride 0.9% 1,000 ML 75 ML IV (02:55)
[2021-12-15 06:20] LABS: Basophils # 0.1 10^3/uL (0.0-0.1); Basophils % 0.9 %; Eosinophils # 0.2 10^3/uL (0.0-0.8); Hematocrit 33.1 % (37.0-47.0); Hemoglobin 10.5 g/dL (11.5-15.3); Lymphocytes # 2.8 10^3/uL (0.8-4.8); Lymphocytes % 26.1 %; Mean Corpuscular HGB Conc 31.7 g/dL (30.0-36.0); Mean Corpuscular Hemoglobin 28.5 pg (28.0-34.0); Mean Corpuscular Volume 89.7 fl (81-99); Mean Platelet Volume 11.2 fL (7.4-10.4); Monocytes # 0.9 10^3/uL (0.2-0.9); Monocytes % 8.9 %; Neutrophils # 6.54 10^3/uL (1.8-7.7); Neutrophils % 61.7 %; Nucleated Red Blood Cells % 0 %; Platelet Count 184 10^3/cmm (130-400); Red Blood Count 3.69 10^6/uL (4.1-5.3); Red Cell Distribution Width 13.8 % (12.1-15.1); White Blood Count 10.6 10^3/uL (4.0-10.0)
[2021-12-15 07:11] LABS: Glucose Point of Care 74 mg/dL (70-110)
--- NOTE | 2021-12-15 07:21 | CT_ITS ---
WS: [id number] CT LEFT ANKLE, NONCONTRAST HISTORY: Characterization of possible fracture Technique: All CT scans at [facility] use at least one of these dose optimization techniques: automated exposure control; mA and/or kV adjustment per patient size (includes targeted exams where dose is matched to clinical indication); or iterative reconstruction. DLP: 132.18 mGy.cm COMPARISON: LEFT ankle radiograph 12/13/2021 No acute fracture or displacement is identified. There is very mild narrowing of the tibiotalar joint space without asymmetry or widening. Mixed lytic and sclerotic lesion along the medial talar dome me asures 13.9 x 6.5 mm. No loose body. Calcaneus and talus are otherwise unremarkable. There is a small calcaneal spur. A small amount of edema at the ankle. No joint effusion. There are vascular calcifications. CT/CT ankle LT wo con* [id number] IMPRESSION: 1. No ankle fracture. 2. Medial talar dome osteochondral lesion measuring 13.9 x 6.5 mm. No fragment . 3. Atherosclerosis and soft tissue edema.
--- NOTE | 2021-12-15 07:31 | PM.MISC ---
Miscellaneous Note Purpose of Documentation: Pre-Consult Evaluation and Order Documentation Note: Yesterday afternoon, I was asked to see this 66-year-old woman today to evaluate for treatment of a possible distal fibula fracture. I have reviewed the imaging studies, and there is suspicion for possible distal fibula fracture, but the study is not fully diagnostic. I have ordered a CT scan and will await it prior to formal consultation.
--- NOTE | 2021-12-15 07:33 | XR_ITS ---
WS: [id number] Right foot, 3 views, 12/15/2021 Clinical Data: Pain Comparison: None. Findings: No fractures or dislocations are seen. No bone destruction or erosion is noted. The joint spaces and soft tissues are normal. There is an Achilles spur and a plantar spur. There is minimal vascular calcification present. XR/XR foot RT min 3V* [id number] Impression: Negative right foot.
[2021-12-15 08:08] LABS: Alanine Aminotransferase 18 U/L (0-33); Albumin Level 3.2 g/dL (3.5-5.2); Alkaline Phosphatase 74 IU/L (35-105); Anion Gap 14.5 (5-19); Aspartate Amino Transferase 14 U/L (0-32); Blood Urea Nitrogen 33 mg/dL (8-23); Calcium 8.6 mg/dL (8.5-10.5); Carbon Dioxide 28 mmol/L (22-29); Chloride 97 mmol/L (98-107); Globulin 2.5 g/dL (1.3-4.6); Glomerular Filtration Rate 32.5 mL/min (90-130); Glucose 75 mg/dL (65-115); Osmolality Calculated 288 mOsm/kg (285-295); Potassium 3.5 mmol/L (3.5-5.1); Sodium 136 mmol/L (136-145); Total Bilirubin 0.2 mg/dL (0.15-1.2); Total Protein 5.7 g/dL (6.6-8.7)
[2021-12-15] MEDS: carvedilol 6.25 mg Tablet 3.125 MG PO (08:58)
[2021-12-15] MEDS: pantoprazole DR 40 mg Tablet PO (08:59)
[2021-12-15] MEDS: isosorbide mononitrate ER 60 mg Tablet PO (08:59)
[2021-12-15] MEDS: hydroxychloroquine 200 mg Tablet PO (08:59)
[2021-12-15] MEDS: hyDRALAzine 10 mg Tablet PO (08:59)
[2021-12-15] MEDS: hydrocortisone 100 mg/2 mL SDV 50 MG IVP (09:32)
[2021-12-15] MEDS: acetaminophen 325 mg Tablet PO (09:33)
[2021-12-15] MEDS: nystatin powder 15 gm Btl 1 APPLIC TOPICAL (09:38)
--- NOTE | 2021-12-15 10:00 | MR_ITS ---
WS: [id number] MRI HEAD WITHOUT CONTRAST TECHNIQUE: Sagittal T1, T2 axial, T2 axial FLAIR, axial and coronal T1 images, axial susceptibility w eighted imaging, axial diffusion weighted images, and coronal T2 images were obtained. CLINICAL INFORMATION: fall, possible stroke COMPARISON: MRI and CT December 13, 2021 FINDINGS: Images somewhat degraded by motion artifact. FAST imaging was performed. No evidence of restricted diffusion to suggest acute ischemia. Ventricular system and basilar cistern s are patent. Mild small vessel changes with mild to moderate parenchymal volume loss. Normal posterior fossa. Normal vascular flow voids at the skull base. No extra-axial fluid collection s. No evidence of mass or mass effect. Mild mucosal thickening in the paranasal sinuses. Mastoid air cells are well aerated. Normal optic chiasm and pituitary infundibulum. Mild symmetric atrophy tempor al lobes and hippocampal formations. No hemosiderin on susceptibly weighted images. MR/MR head wo con* [id number] IMPRESSION: 1. No evidence of restricted diffusion to suggest acute ischemia. 2. Mild small vessel changes with mild to moderate parenchymal volume loss. 3. Mild mucosal thickening in the paranasal sinuses. Mastoid air cells are wel l aerated. 4. No other acute findings.
[2021-12-15 11:28] LABS: Glucose Point of Care 130 mg/dL (70-110)
--- NOTE | 2021-12-15 11:29 | PC.OT ---
OT TREATMENT ATTEMPTED. PATIENT STATES THAT SHE IS GOING HOME TODAY AND WILL SHOWER AT THAT TIME. STATES THAT SHE HAS ALREADY PERFORMED GROOMING TODAY. PATIENT REPORTS THAT SHE IS AWAITING AN MRI. WILL HOLD AT THIS TIME WHILE AWAITING RESULTS OF MRI
--- NOTE | 2021-12-15 12:15 | PM.DCS ---
Discharge Providers Date of Admission: 12/14/21 12:40 Date of Discharge: December 15, 2021 Attending Provider at Admission: Morris Doe Attending Provider at Discharge: Tom Styles MD Consults: Orthopedics: Dr. Coats Primary Care Provider: PARAG Mensah Diagnoses at Discharge Discharge Diagnosis (1) Syncope and collapse: Status: Acute (2) Fall: Status: Acute (3) Acute exacerbation of CHF (congestive heart failure): Status: Acute (4) Diabetic neuropathy associated with type 2 diabetes mellitus: Status: Acute Qualifiers: Diabetes mellitus complication detail: diabetic polyneuropathy Qualified Code(s): E11.42 - Type 2 diabetes mellitus with diabetic polyneuropathy (5) Uncontrolled hypertension: Status: Acute (6) Fracture of distal end of fibula: Status: Acute (7) High risk medication use: Status: Acute (8) Mobility impaired: Status: Chronic (9) Epistaxis: Status: Acute (10) Pain of both breasts: Status: Acute (11) Essential tremor: Status: Acute Reason for Visit Reason for Visit: PAIN TO FACE S/P FALL Hospital Course Hospital Course History as per H&P: 66-year-old lady fell at home when trying to walk towards arranging phone.? She does not remember how she ended up falling.? She feels she may have blacked out.? Last x-ray of members was seeing the floor coming towards her.? She had epistaxis afterward.? Having a headache.? She had pain in her left ankle, left knee.? In ER chest x-ray, face CT, head CT, bilateral shoulder and knee x-rays, tib-fib and left ankle repeat x-rays were performed, with left tib-fib and ankle x-rays showing subtle oblique lucency through the distal fibula seen only on the frontal view however raising concern for nondisplaced fracture.? Splint is being applied in ER. She reports intermittent episodes of dizziness recently.? She denies having vertigo prior to the episodes.? She reports dizziness happens when she stands or tries walking.? She denies palpitations, chest pain or pressure.? She is chronically short of breath due to COPD and chronically wears 2 L of oxygen.? She is not sure whether she wore her oxygen when she was walking toward the phone although she usually does.? She denies recent fevers, chills, nausea vomiting or diarrhea, muscle aches or headaches. She recently feels has been having more swelling. She has been taking her Lasix dose of which has been increased up to 80 mg. Recently she was prescribed a new medication by her neurologist, although she is not sure whether or not she has actually started this medication. There have been delays with her picking up from the pharmacy. But she may have started it. She is not always able to keep track of taking her medication as well. Her son or grandson sometimes help her with the medications. After an error made by home health she asked not to have the home health nurse helping with the medications. She misses doses sometimes when she is not sure whether she had taken a medication or not. This way she tries to avoid doubling medication doses accidentally. Hospital course: Patient under the hospital for further evaluation management. Most likely her etiology of fall along with possible presyncope is secondary to elevated blood pressure along with noncompliance of medication and possibly secondary to newly added primidone. Primidone was withheld. There is a concern of fibula fracture in the admission so orthopedics was consulted and were done which were negative for fracture. Patient has been fitted with a boot and weightbearing has been assessed as per orthopedics. Patient patient was found to have uncontrolled blood pressures. Patient also stated at home are usually blood pressures going to her systolics. Antihypertensives adjusted patient to which she responded well. On admission she was also found to have high blood sugars. She states usually takes 150 units of Levemir in a.m. along with 26 units of insulin premeal. Insulin was changed to 100 units twice daily along with insulin sliding scale. Patient is been discharged hemodynamically stable condition advised to follow-up with her primary care provider within next 2 weeks, with orthopedics within next 2 weeks. Patient is advised to maintain blood pressure diary at home for further adjustment of antihypertensives with her primary care provider. Physical Exam Narrative: EXAM NARRATIVE: Family accompanying her in her room. Const: COMMON NORMALS: no acute distress, patient oriented x3 and alert GENERAL APPEARANCE: cooperative and anxious NUTRITIONAL APPEARANCE: obese ORIENTATION/CONSCIOUSNESS: Yes awake HENMT: COMMON NORMALS: oropharynx normal Neck/C-Spine: COMMON NORMALS: no JVD Resp: COMMON NORMALS: normal respiratory effort and clear to auscultation bilaterally AUSCULTATION: clear to auscultation bilaterally Cardio: COMMON NORMALS: no JVD, regular rhythm, S1 normal heart sound present, S2 normal heart sound present and No murmurs present (Cardio) RHYTHM: regular rhythm HEART SOUNDS: S1 normal heart sound present and S2 normal heart sound present GI: COMMON NORMALS: Normal to inspection, nondistended, normoactive bowel sounds present, Soft to palpation and non-tender PALPATION: Yes Soft to palpation Extremity: COMMON NORMALS: no joint enlargement GENERAL: Yes edema (1-2+ BL LE) Neuro: COMMON NORMALS: patient oriented x3 and moves all extremities SENSORIUM/ORIENTATION: Yes alert Skin: COMMON NORMALS: no rashes or lesions noted GENERAL SKIN EXAM: no rashes or lesions noted Discharge Data Studies Completed and Pending Completed Studies During Hospitalization Category Date Time Status CT ankle LT wo con* [id number] Routine Cat Scan 12/15/21 07:[address] facial bones wo con* [id number] Urgent Cat Scan 12/13/21 13:[address] head wo con* [id number] Urgent Cat Scan 12/13/21 13:[address] neck w con* [id number] Routine Cat Scan 12/14/21 12:24 Completed XR ankle LT min 3V* [id number] Urgent Exams 12/13/21 16:14 Completed XR chest 1V portable [id number] Stat Exams 12/13/21 13:25 Completed XR foot RT min 3V* [id number] Routine Exams 12/15/21 07:33 Completed XR knee LT 1-2V [id number] Urgent Exams 12/13/21 13:52 Completed XR knee RT 1-2V [id number] Urgent Exams 12/13/21 13:52 Completed XR shoulder LT min 2V* [id number] Urgent Exams 12/13/21 13:32 Completed XR shoulder RT min 2V* [id number] Urgent Exams 12/13/21 13:52 Completed XR tibia fibula LT 2V [id number] Urgent Exams 12/13/21 13:52 Completed XR tibia fibula RT 2V [id number] Urgent Exams 12/13/21 13:52 Completed Pending at discharge Category Date Time Status Complete Blood Count w/Auto AM LABS Lab 12/16/21 04:00 Ordered Comprehensive Metabolic Panel AM LABS Lab 12/16/21 04:00 Ordered MR head wo con* [id number] Routine MRI 12/15/21 10:00 Ordered Radiology Impressions Chest X-Ray 12/13/21 13:25 IMPRESSION: No acute findings. Face CT 12/13/21 13:27 IMPRESSION: No acute findings. Head CT 12/13/21 13:27 IMPRESSION: No acute intracranial abnormality. Knee X-Ray 12/13/21 13:52 IMPRESSION: No acute findings. Shoulder X-Ray 12/13/21 13:52 IMPRESSION: No acute findings. Tibia/Fibula X-Ray 12/13/21 13:52 IMPRESSION: No acute findings. Ankle X-Ray 12/13/21 16:14 IMPRESSION: 1. Subtle oblique lucency through the distal fibula is seen only on the frontal view however raises concern for nondisplaced fracture. 2. There is edema in the soft tissues. Neck CT 12/14/21 12:24 IMPRESSION: 1. Quality of this examination is limited by motion, body habitus and rotation. 2. No acute abnormality noted within the neck. 3. Stable LEFT thyroid nodule. Ankle CT 12/15/21 07:21 IMPRESSION: 1. No ankle fracture. 2. Medial talar dome osteochondral lesion measuring 13.9 x 6.5 mm. No fragment. 3. Atherosclerosis and soft tissue edema. Foot X-Ray 12/15/21 07:33 Impression: Negative right foot. Laboratory Results WBC 10.6 10^3/uL (4.0-10.0) H 12/15/21 05:17 RBC 3.69 10^6/uL (4.1-5.3) L 12/15/21 05:17 Hgb 10.5 g/dL (11.5-15.3) L 12/15/21 05:17 Hct 33.1 % (37.0-47.0) L 12/15/21 05:17 MCV 89.7 fl (81-99) 12/15/21 05:17 MCH 28.5 pg (28.0-34.0) 12/15/21 05:17 MCHC 31.7 g/dL (30.0-36.0) 12/15/21 05:17 RDW 13.8 % (12.1-15.1) 12/15/21 05:17 Plt Count 184 10^3/cmm (130-400) 12/15/21 05:17 MPV 11.2 fL (7.4-10.4) H 12/15/21 05:17 Neut % (Auto) 61.7 % 12/15/21 05:17 Lymph % (Auto) 26.1 % 12/15/21 05:17 Cotton % (Auto) 8.9 % 12/15/21 05:17 Eos % (Auto) 2.0 % 12/15/21 05:17 Baso % (Auto) 0.9 % 12/15/21 05:17 Neut # (Auto) 6.54 10^3/uL (1.8-7.7) 12/15/21 05:17 Lymph # (Auto) 2.8 10^3/uL (0.8-4.8) 12/15/21 05:17 Cotton # (Auto) 0.9 10^3/uL (0.2-0.9) 12/15/21 05:17 Eos # (Auto) 0.2 10^3/uL (0.0-0.8) 12/15/21 05:17 Baso # (Auto) 0.1 10^3/uL (0.0-0.1) 12/15/21 05:17 Nucleated RBC % (auto) 0 % 12/15/21 05:17 Nucleated RBCs # 0.0 /100WBC 12/15/21 05:17 D-Dimer 0.57 ug/mIFEU (0-0.59) 12/13/21 14:34 Sodium 136 mmol/L (136-145) 12/15/21 07:15 Potassium 3.5 mmol/L (3.5-5.1) 12/15/21 07:15 Chloride 97 mmol/L (98-107) L 12/15/21 07:15 Carbon Dioxide 28 mmol/L (22-29) 12/15/21 07:15 Anion Gap 14.5 (5-19) 12/15/21 07:15 BUN 33 mg/dL (8-23) H 12/15/21 07:15 Creatinine 1.6 mg/dL (0.5-0.9) H 12/15/21 07:15 GFR Calculation 32.5 mL/min (90-130) L 12/15/21 07:15 Glucose 75 mg/dL (65-115) 12/15/21 07:15 POC Glucose 130 mg/dL (70-110) H 12/15/21 11:24 Calculated Osmolality 288 mOsm/kg (285-295) 12/15/21 07:15 Calcium 8.6 mg/dL (8.5-10.5) 12/15/21 07:15 Magnesium 2.2 mg/dL (1.7-2.3) 12/13/21 14:34 Total Bilirubin 0.2 mg/dL (0.15-1.2) 12/15/21 07:15 AST 14 U/L (0-32) 12/15/21 07:15 ALT 18 U/L (0-33) 12/15/21 07:15 Alkaline Phosphatase 74 IU/L (35-105) 12/15/21 07:15 Troponin T Baseline 23 ng/L (0-10) H 12/13/21 14:34 Troponin T 120 Minute 21.53 ng/L (0-10) H 12/13/21 16:20 Delta Troponin T -1.47 ABS# (0-10) L 12/13/21 16:20 Troponin T Hi Sens 6Hr 22.12 ng/L (0-10) H 12/13/21 20:00 Troponin T Hi Sens 6Hr Delta -0.88 ng/L (0-12) L 12/13/21 20:00 NT-Pro-B Natriuret Pep 627 pg/mL (0-125) H 12/13/21 14:34 Total Protein 5.7 g/dL (6.6-8.7) L 12/15/21 07:15 Albumin 3.2 g/dL (3.5-5.2) L 12/15/21 07:15 Globulin 2.5 g/dL (1.3-4.6) 12/15/21 07:15 TSH 0.99 uIU/mL (0.27-4.20) 12/13/21 20:00 Random Cortisol 13.33 ug/dL (2.47-19.5) 12/13/21 16:20 Urine Color Yellow (Yellow) 12/13/21 23:58 Urine Appearance Clear (CLEAR) 12/13/21 23:58 Urine pH 7 (5-7) 12/13/21 23:58 Ur Specific [place] 1.005 (1.005-1.030) 12/13/21 23:58 Urine Protein 2+ (Negative) H 12/13/21 23:58 Urine Glucose (UA) Norm (Normal) 12/13/21 23:58 Urine Ketones Negative (Negative) 12/13/21 23:58 Urine Blood 2+ (Negative) H 12/13/21 23:58 Urine Nitrate Negative (Negative) 12/13/21 23:58 Urine Bilirubin Neg (Negative) 12/13/21 23:58 Urine Urobilinogen Norm mg/dL (Negative) 12/13/21 23:58 Ur Leukocyte Esterase Negative (Negative) 12/13/21 23:58 Urine RBC 5-10 /hpf (0-2) H 12/13/21 23:58 Urine WBC 0-4 /hpf (0-5) H 12/13/21 23:58 Ur Squamous Epith Cells 0-4 /hpf (0-5) H 12/13/21 23:58 Amorphous Sediment Not Reportable 12/13/21 23:58 Urine Bacteria Trace /hpf (NONE) 12/13/21 23:58 Vitals Last Vital Signs Temp 98.1 F 12/15/21 08:00 Pulse 82 12/15/21 08:39 Resp 18 12/15/21 08:39 BP 124/75 12/15/21 08:00 Pulse Ox 99 12/15/21 08:39 Discharge Plan Discharge Patient Disposition: Home Health Service Condition: Stable Prescriptions: New hydralazine 10 mg Tablet 10 mg PO TID 30 Days Qty: 90 0RF carvedilol 6.25 mg Tablet 3.125 mg PO BID 30 Days Qty: 30 0RF Continued (DME) pen needle, diabetic [TechLITE Pen Needle] 31 gauge x 5/16 needle See Rx Instructions .ROUTE .MEDSUPPLY Qty: 1,200 0RF Rx Instructions: As directed nitroglycerin [Nitrostat] 0.4 mg tablet, sublingual 0.4 mg SUBLINGUAL Q5M PRN (Reason: Chest Pain) 0RF (DME) blood-glucose meter [Blood Glucose Monitoring] Kit See Rx Instructions .ROUTE .MEDSUPPLY Qty: 1 0RF Rx Instructions: As directed, May substitute for any brand dicyclomine 20 mg tablet See Rx Instructions PO TID PRN (Reason: IBS symptoms prn) Qty: 60 3RF Rx Instructions: take 1 tab TID for IBS prn prednisone 2.5 mg tablet 2.5 mg PO DAILY Qty: 90 1RF hydroxychloroquine 200 mg tablet 200 mg PO BID Qty: 60 3RF albuterol sulfate [ProAir HFA] 90 mcg/actuation HFA aerosol inhaler 2 puff INHALATION Q4H PRN (Reason: shortness of breath or wheezing) Qty: 8.5 2RF Eliquis 5 mg tablet 5 mg PO BID@0900,2100 Qty: 60 2RF fluoxetine 40 mg capsule 40 mg PO DAILY@2100 Qty: 30 2RF hydroxyzine pamoate 25 mg capsule 25 mg PO BID PRN (Reason: anxiety) Qty: 60 2RF methocarbamol 500 mg tablet 500 mg PO TID PRN (Reason: Muscle Spasm) Qty: 90 2RF nystatin 100,000 unit/gram powder 1 applic topical TID Qty: 60 0RF Rx Instructions: large area under breasts potassium chloride 20 mEq tablet extended release 20 meq PO DAILY Qty: 90 3RF (DME) compression socks, medium Misc See Rx Instructions .Route Qty: 2 0RF Rx Instructions: As directed (DME) wheelchair cushions See Rx Instructions .Route .MEDSUPPLY Qty: 1 0RF Rx Instructions: As directed clindamycin phosphate 1 % lotion See Rx Instructions .ROUTE .COMPLEX Qty: 60 1RF Dose Instruction: APPLY TOPICALLY TWICE DAILY NEEDED FOR SKIN IRRITATION Rx Instructions: APPLY TOPICALLY TWICE DAILY NEEDED FOR SKIN IRRITATION triamcinolone acetonide 0.1 % ointment 1 applic TOPICAL DAILY PRN (Reason: itching) Qty: 30 0RF cholecalciferol (vitamin D3) [Vitamin D3] 125 mcg (5,000 unit) Tablet 125 mcg PO DAILY 0RF Vitamin B-12 1 tab PO DAILY 0RF insulin aspart U-100 [Novolog Flexpen U-100 Insulin] 100 unit/mL (3 mL) insulin pen 6 - 27 unit SUBCUT TID 0RF acetaminophen 325 mg tablet 325 mg PO Q6H PRN (Reason: Pain) 0RF isosorbide mononitrate 60 mg tablet extended release 24 hr 60 mg PO DAILY 0RF pantoprazole 40 mg tablet,delayed release (DR/EC) 40 mg PO DAILY 0RF Changed furosemide 80 mg tablet 40 mg PO DAILY Qty: 90 3RF Levemir FlexTouch U-100 Insuln 100 unit/mL (3 mL) insulin pen 100 unit SUBCUT BID Qty: 0 0RF Discontinued metoprolol tartrate 50 mg tablet 25 mg PO BID 0RF primidone 50 mg tablet 50 mg PO BID Qty: 60 5RF Rx Instructions: 50mg with supper for a week then BID hydralazine 50 mg tablet See Rx Instructions .ROUTE .COMPLEX 0RF Rx Instructions: 25 MG PO IN THE MORNING / 25 MG PO IN THE EVENING Discharge Orders: Discharge Order (Routine); Ordered 12/15/21 Ordered By: Tom Styles Referrals: Lorenzo Muller, [employer] TECHNICIAN-[employer] [Primary Care Provider] - 1 week Kirstin Coats MD [Physician] - 7-10 days Discharge Diet: Cardiac and Diabetic Discharge Activity: Resume usual activity Patient Instructions: Opioid Safety Discharge Attestations Time Spent in Discharge Care*: greater than 30 min Specific Discharge Activities: educating patient, educating and/or supporting family/caregiver, discussing with skilled nursing case manager/social workers/dc planners, documenting/other paperwork and evaluating patient/reviewing data Status at Discharge: Cognitive status at discharge: cognitively intact, Behavioral status at discharge: cooperative, Functional status at discharge: uses cane/walker, Overall status at discharge: patient is progressing back to baseline Quality Metrics Clinical Quality Measures [ No reported AMI, CVA or VTE this stay] Coding Level of Care Code Acute g DC note Diagnoses Syncope and collapse R55 Fall W19.XXXA Acute exacerbation of CHF (congestive heart failure) I50.9 Diabetic neuropathy associated with type 2 diabetes mellitus E11.42 Diabetes mellitus complication detail: diabetic polyneuropathy Uncontrolled hypertension I10 Fracture of distal end of fibula S82.839A High risk medication use Z79.899 Mobility impaired Z74.09 Epistaxis R04.0 Pain of both breasts N64.4 Essential tremor G25.0
--- NOTE | 2021-12-15 18:18 | PC.NURSE ---
Discharge paperwork discussed with follow up appointments. Verbalized understanding.
--- NOTE | 2021-12-15 18:57 | PM.CONSULT ---
Providers/Reason For Consult Consulting Physician/Specialty*: Kirstin Coats MD - Orthopedics Reason for Consult*: Possible ankle fracture left Requesting Physician: Tom Styles MD Attending Physician: Tom Styles MD Primary Care Provider: Lorenzo Muller, [employer] History of Present Illness History of Present Illness Jennifer Novak is a 66 year old female who was admitted to the hospital after falling while at home. She felt that she may have blacked out and she was admitted to the medical service. She was evaluated for this. It was felt that she likely had issues secondary to a new medication. Upon admission, there was concern of a fibular fracture which was suggested on plain films. I was called for consultation. The patient was to be fitted with a cam walker boot to give her support. She was allowed to be weightbearing as tolerated. CT was subsequently ordered to rule in or out fracture for counseling. Review of Systems General: Reports: Other (Obtained per chart review not in person) Const: Reports: other (headache); Denies: fever(s), chills, body aches or malaise Eyes: Denies: change in vision or eye redness ENMT: Denies: throat pain, mouth pain, oral sores or ear or mastoid pain Card: Reports: edema; Denies: chest pain, palpitations, pre-syncope or dyspnea on exertion Resp: Reports: dyspnea (chronic); Denies: productive cough, non-productive cough, change in phlegm color or hemoptysis GI: Denies: abdominal pain, nausea, vomiting, diarrhea, constipation, hematochezia or melena : Denies: flank pain, dysuria, urinary frequency or hematuria Musc: Reports: other (L ankle pain, L knee pain after fall); Denies: back pain, extremity pain, joint swelling, joint redness or joint warmth Skin/Breast: Denies: rash, sores or new lesions Neuro: Denies: headache(s), numbness in extremities, weakness in extremities, dizziness, confusion or seizure-like activity Psych: Reports: other (Normal mood) Endo: Denies: polyuria or polydipsia Kobe/Lymph: Denies: easy bruising, easy bleeding or purpura All/Imm: Denies: urticaria, throat swelling or tongue swelling Medications/Allergies Home Medications Medication Instructions Recorded Confirmed Last Taken Type pen needle, diabetic 31 gauge x #1,200 each 12/20/19 12/14/21 Unknown History 04/05 (TechLITE Pen Needle) nitroglycerin 0.4 mg sublingual 0.4 mg SUBLINGUAL Q5M PRN 01/21/20 12/14/21 1 Month Ago History tablet (Nitrostat) ~06/09/21 blood-glucose meter (Blood Glucose #1 each 05/16/20 12/14/21 Unknown Rx Monitoring) Vitamin B-12 1 tab PO DAILY 05/14/21 12/14/21 12/12/21 History cholecalciferol (vitamin D3) 125 125 mcg PO DAILY 05/14/21 12/14/21 12/12/21 History mcg (5,000 unit) tablet (Vitamin D3) insulin aspart U-100 100 unit/mL 6 - 27 unit SUBCUT TID 05/14/21 12/14/21 2 Days Ago History (3 mL) subcutaneous pen (Novolog ~07/08/21 Flexpen U-100 Insulin aspart) dicyclomine 20 mg tablet See Rx Instructions PO TID PRN #60 09/28/21 12/14/21 Unknown Rx tab hydroxychloroquine 200 mg tablet 200 mg PO BID #60 tab 09/28/21 12/14/21 12/12/21 Rx prednisone 2.5 mg tablet 2.5 mg PO DAILY #90 tab 09/28/21 12/14/21 12/12/21 Rx albuterol sulfate 90 mcg/actuation 2 puff INHALATION Q4H PRN #8.5 gm 10/29/21 12/14/21 12/13/21 Rx aerosol inhaler (ProAir HFA) apixaban 5 mg tablet (Eliquis) 5 mg PO BID@0900,2100 #60 tab 10/29/21 12/14/21 12/12/21 Rx fluoxetine 40 mg capsule 40 mg PO DAILY@2100 #30 cap 10/29/21 12/14/21 12/12/21 Rx hydroxyzine pamoate 25 mg capsule 25 mg PO BID PRN #60 cap 10/29/21 12/14/21 Unknown Rx methocarbamol 500 mg tablet 500 mg PO TID PRN #90 tab 10/29/21 12/14/21 Unknown Rx nystatin 100,000 unit/gram topical 1 applic TOPICAL TID #60 g 11/18/21 12/14/21 Unknown Rx powder potassium chloride 20 mEq 20 meq PO DAILY #90 tab 11/24/21 12/14/21 12/12/21 Rx tablet,extended release compression socks, medium #2 ea 12/01/21 12/14/21 Unknown Rx wheelchair cushions #1 ea 12/02/21 12/14/21 Unknown Rx clindamycin phosphate 1 % lotion See Rx Instructions .ROUTE 12/11/21 12/14/21 Unknown Rx .COMPLEX #60 milliliter triamcinolone acetonide 0.1 % 1 applic TOPICAL DAILY PRN #30 gm 12/11/21 12/14/21 Unknown Rx topical ointment acetaminophen 325 mg tablet 325 mg PO Q6H PRN 12/13/21 12/14/21 Unknown History isosorbide mononitrate 60 mg 60 mg PO DAILY 12/13/21 12/14/21 12/12/21 History tablet,extended release 24 hr pantoprazole 40 mg tablet,delayed 40 mg PO DAILY 12/13/21 12/14/21 12/12/21 History release carvedilol 6.25 mg tablet 3.125 mg PO BID 30 Days #30 tab 12/15/21 Unknown Rx furosemide 80 mg tablet 40 mg PO DAILY #90 tab 12/15/21 12/14/21 12/12/21 Rx hydralazine 10 mg tablet 10 mg PO TID 30 Days #90 tab 12/15/21 Unknown Rx insulin detemir U-100 100 unit/mL 100 unit SUBCUT BID #0 ml 12/15/21 12/14/21 12/12/21 Rx (3 mL) subcutaneous pen (Levemir FlexTouch U-100 Insulin) Allergies Allergy/AdvReac Type Severity Reaction Status Date / Time acetaminophen [From [place]] Allergy Unknown Verified 12/13/21 13:19 bacitracin Allergy ADR-Nausea Verified 12/13/21 13:19 codeine Allergy ADR-Nausea Verified 12/13/21 13:19 hydrocodone [From [place]] Allergy Unknown Verified 12/13/21 13:19 Latex, Natural Rubber Allergy Unknown Verified 12/13/21 13:19 morphine Allergy ADR-Itching Verified 12/13/21 13:19 neomycin Allergy ALGY-Rash Verified 12/13/21 13:19 [From Neosporin ([id number])] oxycodone Allergy Unknown Verified 12/13/21 13:19 polymyxin B Allergy ALGY-Rash Verified 12/13/21 13:19 [From Neosporin ([id number])] Sulfa (Sulfonamide Allergy ADR-Nausea Verified 12/13/21 13:19 Antibiotics) sulfamethoxazole Allergy Unknown Verified 12/01/21 11:32 [From Bactrim] trimethoprim [From Bactrim] Allergy Unknown Verified 12/01/21 11:32 PFSH Acute PFSH: Medical History Atrial flutter Benign hypertension Chronic major depressive disorder Chronic obstructive pulmonary disease, unspecified CKD (chronic kidney disease) COPD, moderate Coronary artery fistula Dietary noncompliance Diverticulosis Environmental and seasonal allergies Fibromyalgia High risk medication use IBS (irritable bowel syndrome) Inflammatory arthritis Noncompliance with diabetes treatment Not consistent with diet Obesity Pain of both breasts Polyarthralgia Reduced ejection fraction concurrent with and due to chronic heart failure Situational anxiety SOB (shortness of breath) Type 2 diabetes mellitus with diabetic chronic kidney disease Vitamin D deficiency Surgical History History of section 4 times History of cholecystectomy History of hysterectomy with BSO History of tonsillectomy Hx of colonoscopy Hx of esophagogastroduodenoscopy Family History Brother Bleeding disorder CAD (coronary artery disease) Father CAD (coronary artery disease) Chronic kidney disease (CKD) Mother CAD (coronary artery disease) Cancer Diabetes Family/Other Cancer Other CHF (congestive heart failure) Heart disease Hypertension Denies family history of Clotting disorder Dementia Suicide Anesthesia complication Lung disease Stroke Social History Smoking and tobacco status: former smoker Alcohol intake: never Lives independently: No Household members: other Details: Son, sometimes grandson Marital status: Single Dietary Habits: Current diet type/program: regular Caffeine: Yes Safety: Seatbelt use: always Helmet use: No Drive intoxicated or ride with intoxicated sulky driver?: never Vitals/I&O/Wt Last Vital Signs Temp 98.1 F 12/15/21 18:19 Pulse 64 12/15/21 18:19 Resp 16 12/15/21 18:19 BP 124/73 12/15/21 18:19 Pulse Ox 96 12/15/21 18:19 12/15/21 12/15/21 12/15/21 06:59 14:59 22:59 Intake Total 1000 / 1840 720 / 720 Balance 1000 / 1490 720 / 720 Physical Exam Narrative: EXAM NARRATIVE: Patient was admitted to the medical service. She was noted to have bilateral lower extremity swelling. She complained of pain with walking after a fall. There was no deformity of the ankle by history. Data : 12/15/21 05:17 12/15/21 07:[address]: My impression: CT was ordered as there was suggestion of possible fracture on x-ray. Upon my review, a fracture was not felt to be visible, but the patient complained of difficulty walking. Therefore the CT was evaluated. CT was negative for fracture. Xray Ortho: My impression: Normal-appearing ankle with slight lucency in the distal fibula concerning for possible fracture. A&P Assessment and plan (1) Left ankle sprain: Upon initial admission to the hospital, the patient was felt to have a possible subtle nondisplaced distal fibular fracture. I reviewed the x-rays and subsequently ordered a CT scan. CT scan was found to be negative. The patient was tolerating ambulation. She was placed in a boot and was discharged home prior to my physical evaluation of her. I have reviewed her x-rays and studies. Status: Acute (2) Right foot pain: In discussion with nursing, the patient also complained of right foot pain and that no one had evaluated this with imaging. X-ray was ordered and was negative. Status: Acute Consult Attestations Medical Necessity Statement: Patient was admitted to the medical service for evaluation of syncopal episode resulting in the patient's fall. 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
== END 2021-12-15 18:20 | disposition home health service (06) | DRG 637 ==
LOC: ER 14:40 → ER IP 18:03 → MEDSURG 12-14 06:42
PROVIDERS: Admitting Provider Internal Medicine; Emergency Provider Emergency Medicine; PCP Nurse Practitioner; Visit Provider Student in an Organized Health Care Education/Training Program
DX: E11.65 Type 2 diabetes mellitus with hyperglycemia (principal); I50.33 Acute on chronic diastolic (congestive) heart failure; I13.0 Hypertensive heart and chronic kidney disease with heart failure and stage 1 through stage 4 chronic kidney disease, or unspecified chronic kidney disease; I48.92 Unspecified atrial flutter; Z68.43 Body mass index [BMI] 50.0-59.9, adult; E27.40 Unspecified adrenocortical insufficiency; E11.42 Type 2 diabetes mellitus with diabetic polyneuropathy; E11.22 Type 2 diabetes mellitus with diabetic chronic kidney disease; N18.9 Chronic kidney disease, unspecified; R55 Syncope and collapse; F32.9 Major depressive disorder, single episode, unspecified; J44.9 Chronic obstructive pulmonary disease, unspecified; K57.90 Diverticulosis of intestine, part unspecified, without perforation or abscess without bleeding; M79.7 Fibromyalgia; E66.9 Obesity, unspecified; Z91.14 Patient's other noncompliance with medication regimen; Z91.19 Patient's noncompliance with other medical treatment and regimen; F43.22 Adjustment disorder with anxiety; M25.512 Pain in left shoulder; M25.511 Pain in right shoulder; Z99.81 Dependence on supplemental oxygen; Z79.01 Long term (current) use of anticoagulants; Z79.4 Long term (current) use of insulin; Z79.51 Long term (current) use of inhaled steroids; M79.671 Pain in right foot; S93.402A Sprain of unspecified ligament of left ankle, initial encounter; X58.XXXA Exposure to other specified factors, initial encounter; G25.0 Essential tremor; N64.4 Mastodynia; G47.33 Obstructive sleep apnea (adult) (pediatric); Z87.891 Personal history of nicotine dependence
CPT/HCPCS: 36415; 36416; 70450; 70486; 70491; 70551; 71045; 73030; 73560; 73590; 73610; 73630; 73700; 80048; 80053; 81001; 82533; 82962; 83735; 83880; 84443; 84484; 85025; 85378; 93005; 94664; 96372; 96374; 96375; 96376; 97161; 97167; 97530; 99285; G0378; J1720; J1815; J1940; J2270; J7030; L4361; Q9967

== ENCOUNTER 2021-12-27 15:24 | Emergency (ER) | payer MEDICAID, SELFPAY ==
[2021-12-27] VITALS (10 sets, daily range): BP systolic 208–220; BP diastolic 76–96; PULSE 86–98; RESP 18–22; TEMP 36.9; O2SAT 96–100; BMI 53.1
--- NOTE | 2021-12-27 15:50 | XRR_ITS ---
PROCEDURE INFORMATION: Exam: XR Left Humerus Exam date and time: 12/27/2021 3:50 PM Age: 66 years old Clinical indication: Injury or trauma; Fall; Blunt trauma (contusions or hematomas); Arm, upper; Left; Additional info: Fall with swelling and pain TECHNIQUE: Imaging protocol: XR Left humerus. Views: 2 or more views. COMPARISON: CR (CHEST, ) 12/13/2021 2:59 PM FINDINGS: Bones/joints: There is no fracture or dislocation. There osteophytes in the acromioclavicular joint Soft tissues: The soft tissues of the proximal upper arm are swollen and are diffusely fatty. XR/[place] [id number] IMPRESSION: 1. Intact humerus 2. Swollen upper arm. Although this could be due to fatty tissue, hematoma is also possibility
--- NOTE | 2021-12-27 15:56 | XRR_ITS ---
PROCEDURE INFORMATION: Exam: XR Left Wrist Exam date and time: 12/27/2021 3:56 PM Age: 66 years old Clinical indication: Injury or trauma; Fall; Blunt trauma (contusions or hematomas); Wrist; Left; Additional info: Fall with pain TECHNIQUE: Imaging protocol: XR Left wrist. Views: 3 or more views. COMPARISON: No relevant prior studies available. FINDINGS: Bones/joints: Normal. Soft tissues: Normal. XR/XR wrist LT min 3V* [id number] IMPRESSION: Unremarkable
--- NOTE | 2021-12-27 15:56 | XRR_ITS ---
PROCEDURE INFORMATION: Exam: XR Left Elbow Exam date and time: 12/27/2021 3:56 PM Age: 66 years old Clinical indication: Injury or trauma; Fall; Blunt trauma (contusions or hematomas); Elbow; Left TECHNIQUE: Imaging protocol: XR Left elbow. Views: 3 or more views. COMPARISON: CR (UP EX, ) 12/27/2021 4:44 PM FINDINGS: Bones/joints: There is an acute slightly comminuted fracture through the radial head and neck. No dislocation. Soft tissues: Probable small joint effusion. . XR/XR elbow LT min 3V* [id number] IMPRESSION: Acute fracture through the radial head and neck
--- NOTE | 2021-12-27 16:00 | W.ED.FALL ---
Documented by User: Darius Castillo MD 01/03/22 20:54 HPI - Fall General: Chief Complaint: Fall Stated Complaint: fell left arm injury Time Seen by Provider: 12/27/21 16:00 History of Present Illness: Ms Novak is a 66-year-old lady with a very complex past medical history of numerous chronic medical problems and comorbidities who presents to the emergency department primarily due to arm pain however does have generalized other concerns. She reports 2 days ago she was going to bed when she had a syncopal event. She does not think that she had chest pain or shortness of breath preceding the event however did lose consciousness and fell to the ground. She was stuck on the ground for a few hours as, due to weather, EMS was not activated and her son had difficulty getting her up. She landed primarily on her left side. There was head strike. The patient is on anticoagulation. Since that time she has had progressively worsening now severe left arm pain including the upper arm and lower arm pain is exacerbated significantly by movement but does not go away with rest. Additionally she has noted visual disturbance, shortness of breath and left-sided chest pain, left knee pain, bilateral foot pain, and other pain which is markedly limited ambulation. She has had falls in the past with injury. No other specific change in health, exacerbating, or relieving factors identified though multiple chronic medical conditions were discussed. Onset (ago): day(s) Fall from: standing Fall witnessed: no Place fall occurred: home Loss of consciousness: Unsure Prolonged down time: yes Symptoms prior to fall: other Location of injury: other Severity: severe Quality: sharp and aching Review of Systems General: Reports: 10 or more systems reviewed and unremarkable except in HPI and below PFSH ED PFSH: Medical History Acute exacerbation of CHF (congestive heart failure) Atrial flutter Benign hypertension Chronic major depressive disorder Chronic obstructive pulmonary disease, unspecified CKD (chronic kidney disease) COPD, moderate Coronary artery fistula Diabetic neuropathy associated with type 2 diabetes mellitus Dietary noncompliance Diverticulosis Environmental and seasonal allergies Essential tremor Fibromyalgia High risk medication use IBS (irritable bowel syndrome) Inflammatory arthritis Mobility impaired Noncompliance with diabetes treatment Not consistent with diet Obesity Pain of both breasts Polyarthralgia Reduced ejection fraction concurrent with and due to chronic heart failure Situational anxiety SOB (shortness of breath) SOB (shortness of breath) Type 2 diabetes mellitus with diabetic chronic kidney disease Vitamin D deficiency Surgical History History of section 4 times History of cholecystectomy History of hysterectomy with BSO History of tonsillectomy Hx of colonoscopy Hx of esophagogastroduodenoscopy Family History Brother Bleeding disorder CAD (coronary artery disease) Father CAD (coronary artery disease) Chronic kidney disease (CKD) Mother CAD (coronary artery disease) Cancer Diabetes Family/Other Cancer Other CHF (congestive heart failure) Heart disease Hypertension Denies family history of Clotting disorder Dementia Suicide Anesthesia complication Lung disease Stroke Social History Smoking and tobacco status: former smoker Alcohol intake: never Lives independently: No Household members: other Details: Son, sometimes grandson Marital status: Single Physical Exam Const: COMMON NORMALS: alert GENERAL APPEARANCE: cooperative, well developed and in distress (pain) NUTRITIONAL APPEARANCE: obese morbidly obese HENMT: COMMON NORMALS: normocephalic and atraumatic HEAD & SCALP: normocephalic and atraumatic THROAT: posterior oropharynx normal Eye: COMMON NORMALS: conjunctivae normal CONJUNCTIVA: Yes conjunctivae normal SCLERA: sclerae normal Neck/C-Spine: COMMON NORMALS: supple GENERAL: Yes trachea midline Chest: OTHER: Tender to palpation Resp: COMMON NORMALS: normal respiratory effort EFFORT & INSPECTION: Yes able to speak in complete sentences AUSCULTATION: diminished lung sounds Cardio: COMMON NORMALS: regular rate, regular rhythm and Peripheral pulses 2+ throughout RATE: regular rate RHYTHM: regular rhythm PERIPHERAL PULSES: Peripheral pulses 2+ throughout GI: COMMON NORMALS: Soft to palpation PALPATION: Yes Soft to palpation and Yes Tenderness to palpation present (GI) PERCUSSION: normal to percussion Extremity: NARRATIVE EXTREMITY EXAM: Patient has generalized tenderness of the left upper extremity, there is appreciable contusion with ecchymosis and edema about the elbow with limitation of range of motion secondary to pain. Distal CMS is intact. There are no lacerations or evidence of open fracture. Neuro: COMMON NORMALS: moves all extremities SENSORIUM/ORIENTATION: Yes alert and No Orientation impaired Psych: COMMON NORMALS: mental status grossly normal and Normal thought process present THOUGHT PROCESS: Normal thought process present Course ED course: - Patient was seen and evaluated by me at bedside - Patient placed on cardiac monitors, IV access obtained - Initial evaluation notable for challenging initial exam as the patient has significant discomfort and has difficulty localizing specific areas of pain. - Analgesia ordered - Labs notable for no leukocytosis, near baseline normocytic anemia. Metabolic panel with improved creatinine from prior, perhaps mild dehydration. Delta troponin is negative. CK normal. Urinalysis is borderline, without specific urinary complaints in the context of nitrate negative I will defer treatment in preference of culture which will be followed - Imaging notable for negative head CT, negative cervical spine CT for acute trauma. CT chest abdomen and pelvis also negative for acute traumatic injury requiring intervention though she does have ecchymosis identified on CT and correlating with physical exam. X-ray notable for left radial head fracture with only mild angulation which I do not feel requires reduction in the emergency department. Sling placed - Upon serial reexamination after treatment the patient was similar with challenges controlling pain - Based on patient history, evaluation, labs, and imaging as interpreted the most likely cause of the patient's condition is isolated left radius fracture which was placed in sling. - Nearing end of shift we did have modest improvement in pain however the patient reports that she has no way of getting home. She does not require inpatient admission at this time from a medical perspective. As such, she will continue to be treated in the emergency department until a ride becomes available as I believe that it would be improper to discharge the patient to the waiting room with no way of getting adequate analgesia for identified injuries. - Patient care handed off to overnight ED physician Dr. Gilbert pending the above Note: Click bubbles or prepopulated shaikh in note writing are used for assistance with data collection and billing and are inherently more limited than narrative and other text portions of this note. Please use narrative for additional clinical history and defer to narrative/free test for any case of contradictory information. If information appears in only free text or click bubble it should be considered present or absent as reported. Please contact note conventional mortgage underwriter for clarifications of clinical information or contradictory information. MDM is a brief summary, contradictory or erroneous seeming information should be clarified and full note should be reviewed. Vital Signs: Vital signs: Vital Signs Temperature 98.4 F 12/27/21 15:44 Pulse Rate 86 12/28/21 00:57 Respiratory Rate 18 12/28/21 00:57 Blood Pressure 156/88 12/28/21 00:57 Pulse Oximetry 94 12/28/21 00:57 MDM - Fall Medical Decision Making 66-year-old lady with history of morbid obesity and he takes Eliquis presenting 2 days after a fall for which she has had difficulty getting up. She essentially complains of pain that is severe over the entire left side of her body. There is a questionable head strike and loss of consciousness versus syncope causing this event. ED evaluation only notable for left radial head fracture. The patient required a significant amount of analgesia with only minor improvement in symptoms. Patient handed off to overnight ED physician Dr. Gilbert pending continued pain control and likely discharge when she has a ride home. 66-year-old female checked out to me by the previous physician at shift change. This lady has a radial head fracture. Pain has been difficult to control. Currently, she requests to go home. Her son, who is her ride, had gone home, but just called back stating that he could come get her now as opposed to later in the morning. Since her pain is a bit better controlled at this point, she will be allowed discharge home. She is dispensed to Dilaudid oral tablets for pain control at home until she can get to the pharmacy. She is told to ice the elbow religiously for pain. She is in a sling. She will stay that way until she follows up with orthopedics Medical Records I reviewed the patient's medical records. Lab Data I reviewed the patient's lab results. : 12/27/21 16:45 12/27/21 16:45 Radiology Impressions Humerus X-Ray 12/27/21 15:50 IMPRESSION: 1. Intact humerus 2. Swollen upper arm. Although this could be due to fatty tissue, hematoma is also possibility Elbow X-Ray 12/27/21 15:56 IMPRESSION: Acute fracture through the radial head and neck Wrist X-Ray 12/27/21 15:56 IMPRESSION: Unremarkable Cervical Spine CT 12/27/21 16:11 IMPRESSION: No acute fracture. Chest/Abdomen/Pelvis CT 12/27/21 16:11 IMPRESSION: 1. Small left pleural effusion. 2. One enlarged subcarinal lymph node of indeterminate significance IMPRESSION: 1. No acute intra-abdominal or intrapelvic findings. 2. Left lower quadrant abdominal wall ecchymosis Forearm X-Ray 12/27/21 16:11 IMPRESSION: Radial head fracture Head CT 12/27/21 16:11 IMPRESSION: No acute intracranial abnormality. Laboratory Results WBC 9.1 10^3/uL (4.0-10.0) 12/27/21 16:45 RBC 3.90 10^6/uL (4.1-5.3) L 12/27/21 16:45 Hgb 11.1 g/dL (11.5-15.3) L 12/27/21 16:45 Hct 34.8 % (37.0-47.0) L 12/27/21 16:45 MCV 89.2 fl (81-99) 12/27/21 16:45 MCH 28.5 pg (28.0-34.0) 12/27/21 16:45 MCHC 31.9 g/dL (30.0-36.0) 12/27/21 16:45 RDW 14.0 % (12.1-15.1) 12/27/21 16:45 Plt Count 227 10^3/cmm (130-400) 12/27/21 16:45 MPV 10.6 fL (7.4-10.4) H 12/27/21 16:45 Neut % (Auto) 72.0 % 12/27/21 16:45 Lymph % (Auto) 17.0 % 12/27/21 16:45 [place] % (Auto) 6.8 % 12/27/21 16:45 Eos % (Auto) 2.9 % 12/27/21 16:45 Baso % (Auto) 0.9 % 12/27/21 16:45 Neut # (Auto) 6.56 10^3/uL (1.8-7.7) 12/27/21 16:45 Lymph # (Auto) 1.6 10^3/uL (0.8-4.8) 12/27/21 16:45 [place] # (Auto) 0.6 10^3/uL (0.2-0.9) 12/27/21 16:45 Eos # (Auto) 0.3 10^3/uL (0.0-0.8) 12/27/21 16:45 Baso # (Auto) 0.1 10^3/uL (0.0-0.1) 12/27/21 16:45 Nucleated RBC % (auto) 0 % 12/27/21 16:45 Nucleated RBCs # 0.0 /100WBC 12/27/21 16:45 Sodium 143 mmol/L (136-145) 12/27/21 16:45 Potassium 4.0 mmol/L (3.5-5.1) 12/27/21 16:45 Chloride 102 mmol/L (98-107) 12/27/21 16:45 Carbon Dioxide 29 mmol/L (22-29) 12/27/21 16:45 Anion Gap 16.0 (5-19) 12/27/21 16:45 BUN 27 mg/dL (8-23) H 12/27/21 16:45 Creatinine 1.2 mg/dL (0.5-0.9) H 12/27/21 16:45 GFR Calculation 45.2 mL/min (90-130) L 12/27/21 16:45 Glucose 169 mg/dL (65-115) H 12/27/21 16:45 Calculated Osmolality 305 mOsm/kg (285-295) H 12/27/21 16:45 Calcium 9.0 mg/dL (8.5-10.5) 12/27/21 16:45 Total Bilirubin 0.2 mg/dL (0.15-1.2) 12/27/21 16:45 AST 18 U/L (0-32) 12/27/21 16:45 ALT 20 U/L (0-33) 12/27/21 16:45 Alkaline Phosphatase 92 IU/L (35-105) 12/27/21 16:45 Creatine Kinase 114 U/L (26-192) 12/27/21 16:45 Troponin T Baseline 27 ng/L (0-10) H 12/27/21 16:45 Troponin T 120 Minute 22.47 ng/L (0-10) H 12/27/21 18:45 Delta Troponin T -4.53 ABS# (0-10) L 12/27/21 18:45 NT-Pro-B Natriuret Pep 1068 pg/mL (0-125) H 12/27/21 16:45 Total Protein 5.8 g/dL (6.6-8.7) L 12/27/21 16:45 Albumin 3.6 g/dL (3.5-5.2) 12/27/21 16:45 Globulin 2.2 g/dL (1.3-4.6) 12/27/21 16:45 TSH 1.74 uIU/mL (0.27-4.20) 12/27/21 16:45 Urine Color Yellow (Yellow) 12/27/21 19:51 Urine Appearance Clear (CLEAR) 12/27/21 19:51 Urine pH 5 (5-7) 12/27/21 19:51 Ur Specific [place] 1.015 (1.005-1.030) 12/27/21 19:51 Urine Protein 3+ (Negative) H 12/27/21 19:51 Urine Glucose (UA) Norm (Normal) 12/27/21 19:51 Urine Ketones Negative (Negative) 12/27/21 19:51 Urine Blood 2+ (Negative) H 12/27/21 19:51 Urine Nitrate Negative (Negative) 12/27/21 19:51 Urine Bilirubin Neg (Negative) 12/27/21 19:51 Urine Urobilinogen Norm mg/dL (Negative) 12/27/21 19:51 Ur Leukocyte Esterase Negative (Negative) 12/27/21 19:51 Urine RBC 25-40 /hpf (0-2) H 12/27/21 19:51 Urine WBC 5-10 /hpf (0-5) H 12/27/21 19:51 Ur Squamous Epith Cells 0-4 /hpf (0-5) H 12/27/21 19:51 Amorphous Sediment Not Reportable 12/27/21 19:51 Urine Bacteria 1+ /hpf (NONE) H 12/27/21 19:51 Hyaline Casts 0-4 /lpf H 12/27/21 19:51 EKG Data EKG 1: I personally reviewed and interpreted this EKG as follows: EKG interpretation date: 12/27/21 EKG interpretation time: 22:27 Interpretation: Twelve-lead EKG shows a regular rhythm at a rate of 83. WA interval 225, QRS duration 156, QTc 463. Left axis deviation. Interpretation: Sinus rhythm. First-degree AV block. Right bundle branch block. EKG 2: I personally reviewed and interpreted this EKG as follows: EKG interpretation date: 12/27/21 EKG interpretation time: 18:15 Interpretation: Twelve-lead EKG shows a regular rhythm at a rate of 88. WA interval 216, QRS duration 148, QTc 467. Left axis deviation. Interpretation: Sinus rhythm. First-degree AV block. Right bundle branch block. Discharge Plan Discharge Patient Disposition: Home Clinical Impression: Syncope, Hypertension Closed fracture of radial head Qualifiers: Encounter type: initial encounter Fracture alignment: displaced Laterality: left Qualified Code(s): S52.122A - Displaced fracture of head of left radius, initial encounter for closed fracture Condition: Stable Prescriptions: New Roxicodone 5 mg tablet 5 mg PO Q4H PRN (Reason: pain) Qty: 20 0RF No Action (DME) pen needle, diabetic [TechLITE Pen Needle] 31 gauge x 5/16 needle See Rx Instructions .ROUTE .MEDSUPPLY Qty: 1,200 0RF Rx Instructions: As directed nitroglycerin [Nitrostat] 0.4 mg tablet, sublingual 0.4 mg SUBLINGUAL Q5M PRN (Reason: Chest Pain) 0RF (DME) blood-glucose meter [Blood Glucose Monitoring] Kit See Rx Instructions .ROUTE .MEDSUPPLY Qty: 1 0RF Rx Instructions: As directed, May substitute for any brand dicyclomine 20 mg tablet See Rx Instructions PO TID PRN (Reason: IBS symptoms prn) Qty: 60 3RF Rx Instructions: take 1 tab TID for IBS prn prednisone 2.5 mg tablet 2.5 mg PO DAILY Qty: 90 1RF hydroxychloroquine 200 mg tablet 200 mg PO BID Qty: 60 3RF albuterol sulfate [ProAir HFA] 90 mcg/actuation HFA aerosol inhaler 2 puff INHALATION Q4H PRN (Reason: shortness of breath or wheezing) Qty: 8.5 2RF Eliquis 5 mg tablet 5 mg PO BID@0900,2100 Qty: 60 2RF fluoxetine 40 mg capsule 40 mg PO DAILY@2100 Qty: 30 2RF hydroxyzine pamoate 25 mg capsule 25 mg PO BID PRN (Reason: anxiety) Qty: 60 2RF methocarbamol 500 mg tablet 500 mg PO TID PRN (Reason: Muscle Spasm) Qty: 90 2RF nystatin 100,000 unit/gram powder 1 applic topical TID Qty: 60 0RF Rx Instructions: large area under breasts potassium chloride 20 mEq tablet extended release 20 meq PO DAILY Qty: 90 3RF (DME) compression socks, medium Misc See Rx Instructions .Route Qty: 2 0RF Rx Instructions: As directed (DME) wheelchair cushions See Rx Instructions .Route .MEDSUPPLY Qty: 1 0RF Rx Instructions: As directed clindamycin phosphate 1 % lotion See Rx Instructions .ROUTE .COMPLEX Qty: 60 1RF Dose Instruction: APPLY TOPICALLY TWICE DAILY NEEDED FOR SKIN IRRITATION Rx Instructions: APPLY TOPICALLY TWICE DAILY NEEDED FOR SKIN IRRITATION triamcinolone acetonide 0.1 % ointment 1 applic TOPICAL DAILY PRN (Reason: itching) Qty: 30 0RF cholecalciferol (vitamin D3) [Vitamin D3] 125 mcg (5,000 unit) Tablet 125 mcg PO DAILY 0RF Vitamin B-12 1 tab PO DAILY 0RF insulin aspart U-100 [Novolog Flexpen U-100 Insulin] 100 unit/mL (3 mL) insulin pen 6 - 27 unit SUBCUT TID 0RF acetaminophen 325 mg tablet 325 mg PO Q6H PRN (Reason: Pain) 0RF isosorbide mononitrate 60 mg tablet extended release 24 hr 60 mg PO DAILY 0RF pantoprazole 40 mg tablet,delayed release (DR/EC) 40 mg PO DAILY 0RF hydralazine 10 mg Tablet 10 mg PO TID 30 Days Qty: 90 0RF carvedilol 6.25 mg Tablet 3.125 mg PO BID 30 Days Qty: 30 0RF furosemide 80 mg tablet 40 mg PO DAILY Qty: 90 3RF Levemir FlexTouch U-100 Insuln 100 unit/mL (3 mL) insulin pen 100 unit SUBCUT BID Qty: 0 0RF Discharge Orders: Discharge ED (Routine); Ordered 12/28/21 Ordered By: Carlo Gilbert Referrals: Lorenzo Muller, ORTHOPEDIC TECH-C [Primary Care Provider] - Discharge Diet: Usual diet Discharge Activity: Limit activity as instructed Patient Instructions: Elbow Fracture (ED), How to Use a Sling (ED), Opioid Safety Activity Restrictions/Additional Instructions: Thank you for visiting the emergency department. You were seen and evaluated for fall with arm pain. The exact cause of your fall is unclear. You were found to have a radial head fracture. Please follow-up with orthopedics this week and wear sling constantly until follow-up. Please follow-up with your primary care provider and client technical professional. Return to the emergency department for uncontrolled pain, new numbness or tingling, recurrent syncope, or anything else that you are concerned about a feel needs emergency department evaluation. Coding Level of Care Code ED Ms Access Database Developer for Chg Fwd Documented by User: Carlo Gilbert DO 12/28/21 01:17 HPI - Fall General: Chief Complaint: Fall Stated Complaint: fell left arm injury Time Seen by Provider: 12/27/21 16:00 PFSH ED PFSH: Medical History Acute exacerbation of CHF (congestive heart failure) Atrial flutter Benign hypertension Chronic major depressive disorder Chronic obstructive pulmonary disease, unspecified CKD (chronic kidney disease) COPD, moderate Coronary artery fistula Diabetic neuropathy associated with type 2 diabetes mellitus Dietary noncompliance Diverticulosis Environmental and seasonal allergies Essential tremor Fibromyalgia High risk medication use IBS (irritable bowel syndrome) Inflammatory arthritis Mobility impaired Noncompliance with diabetes treatment Not consistent with diet Obesity Pain of both breasts Polyarthralgia Reduced ejection fraction concurrent with and due to chronic heart failure Situational anxiety SOB (shortness of breath) SOB (shortness of breath) Type 2 diabetes mellitus with diabetic chronic kidney disease Vitamin D deficiency Surgical History History of section 4 times History of cholecystectomy History of hysterectomy with BSO History of tonsillectomy Hx of colonoscopy Hx of esophagogastroduodenoscopy Family History Brother Bleeding disorder CAD (coronary artery disease) Father CAD (coronary artery disease) Chronic kidney disease (CKD) Mother CAD (coronary artery disease) Cancer Diabetes Family/Other Cancer Other CHF (congestive heart failure) Heart disease Hypertension Denies family history of Clotting disorder Dementia Suicide Anesthesia complication Lung disease Stroke Social History Smoking and tobacco status: former smoker Alcohol intake: never Lives independently: No Household members: other Details: Son, sometimes grandson Marital status: Single Course Vital Signs: Vital signs: Vital Signs Temperature 98.4 F 12/27/21 15:44 Pulse Rate 86 12/28/21 00:57 Respiratory Rate 18 12/28/21 00:57 Blood Pressure 156/88 12/28/21 00:57 Pulse Oximetry 94 12/28/21 00:57 MDM - Fall Medical Decision Making 66-year-old female checked out to me by the previous physician at shift change. This lady has a radial head fracture. Pain has been difficult to control. Currently, she requests to go home. Her son, who is her ride, had gone home, but just called back stating that he could come get her now as opposed to later in the morning. Since her pain is a bit better controlled at this point, she will be allowed discharge home. She is dispensed to Dilaudid oral tablets for pain control at home until she can get to the pharmacy. She is told to ice the elbow religiously for pain. She is in a sling. She will stay that way until she follows up with orthopedics Lab Data : 12/27/21 16:45 12/27/21 16:45 Radiology Impressions Humerus X-Ray 12/27/21 15:50 IMPRESSION: 1. Intact humerus 2. Swollen upper arm. Although this could be due to fatty tissue, hematoma is also possibility Elbow X-Ray 12/27/21 15:56 IMPRESSION: Acute fracture through the radial head and neck Wrist X-Ray 12/27/21 15:56 IMPRESSION: Unremarkable Cervical Spine CT 12/27/21 16:11 IMPRESSION: No acute fracture. Chest/Abdomen/Pelvis CT 12/27/21 16:11 IMPRESSION: 1. Small left pleural effusion. 2. One enlarged subcarinal lymph node of indeterminate significance IMPRESSION: 1. No acute intra-abdominal or intrapelvic findings. 2. Left lower quadrant abdominal wall ecchymosis Forearm X-Ray 12/27/21 16:11 IMPRESSION: Radial head fracture Head CT 12/27/21 16:11 IMPRESSION: No acute intracranial abnormality. Laboratory Results WBC 9.1 10^3/uL (4.0-10.0) 12/27/21 16:45 RBC 3.90 10^6/uL (4.1-5.3) L 12/27/21 16:45 Hgb 11.1 g/dL (11.5-15.3) L 12/27/21 16:45 Hct 34.8 % (37.0-47.0) L 12/27/21 16:45 MCV 89.2 fl (81-99) 12/27/21 16:45 MCH 28.5 pg (28.0-34.0) 12/27/21 16:45 MCHC 31.9 g/dL (30.0-36.0) 12/27/21 16:45 RDW 14.0 % (12.1-15.1) 12/27/21 16:45 Plt Count 227 10^3/cmm (130-400) 12/27/21 16:45 MPV 10.6 fL (7.4-10.4) H 12/27/21 16:45 Neut % (Auto) 72.0 % 12/27/21 16:45 Lymph % (Auto) 17.0 % 12/27/21 16:45 [place] % (Auto) 6.8 % 12/27/21 16:45 Eos % (Auto) 2.9 % 12/27/21 16:45 Baso % (Auto) 0.9 % 12/27/21 16:45 Neut # (Auto) 6.56 10^3/uL (1.8-7.7) 12/27/21 16:45 Lymph # (Auto) 1.6 10^3/uL (0.8-4.8) 12/27/21 16:45 [place] # (Auto) 0.6 10^3/uL (0.2-0.9) 12/27/21 16:45 Eos # (Auto) 0.3 10^3/uL (0.0-0.8) 12/27/21 16:45 Baso # (Auto) 0.1 10^3/uL (0.0-0.1) 12/27/21 16:45 Nucleated RBC % (auto) 0 % 12/27/21 16:45 Nucleated RBCs # 0.0 /100WBC 12/27/21 16:45 Sodium 143 mmol/L (136-145) 12/27/21 16:45 Potassium 4.0 mmol/L (3.5-5.1) 12/27/21 16:45 Chloride 102 mmol/L (98-107) 12/27/21 16:45 Carbon Dioxide 29 mmol/L (22-29) 12/27/21 16:45 Anion Gap 16.0 (5-19) 12/27/21 16:45 BUN 27 mg/dL (8-23) H 12/27/21 16:45 Creatinine 1.2 mg/dL (0.5-0.9) H 12/27/21 16:45 GFR Calculation 45.2 mL/min (90-130) L 12/27/21 16:45 Glucose 169 mg/dL (65-115) H 12/27/21 16:45 Calculated Osmolality 305 mOsm/kg (285-295) H 12/27/21 16:45 Calcium 9.0 mg/dL (8.5-10.5) 12/27/21 16:45 Total Bilirubin 0.2 mg/dL (0.15-1.2) 12/27/21 16:45 AST 18 U/L (0-32) 12/27/21 16:45 ALT 20 U/L (0-33) 12/27/21 16:45 Alkaline Phosphatase 92 IU/L (35-105) 12/27/21 16:45 Creatine Kinase 114 U/L (26-192) 12/27/21 16:45 Troponin T Baseline 27 ng/L (0-10) H 12/27/21 16:45 Troponin T 120 Minute 22.47 ng/L (0-10) H 12/27/21 18:45 Delta Troponin T -4.53 ABS# (0-10) L 12/27/21 18:45 NT-Pro-B Natriuret Pep 1068 pg/mL (0-125) H 12/27/21 16:45 Total Protein 5.8 g/dL (6.6-8.7) L 12/27/21 16:45 Albumin 3.6 g/dL (3.5-5.2) 12/27/21 16:45 Globulin 2.2 g/dL (1.3-4.6) 12/27/21 16:45 TSH 1.74 uIU/mL (0.27-4.20) 12/27/21 16:45 Urine Color Yellow (Yellow) 12/27/21 19:51 Urine Appearance Clear (CLEAR) 12/27/21 19:51 Urine pH 5 (5-7) 12/27/21 19:51 Ur Specific [place] 1.015 (1.005-1.030) 12/27/21 19:51 Urine Protein 3+ (Negative) H 12/27/21 19:51 Urine Glucose (UA) Norm (Normal) 12/27/21 19:51 Urine Ketones Negative (Negative) 12/27/21 19:51 Urine Blood 2+ (Negative) H 12/27/21 19:51 Urine Nitrate Negative (Negative) 12/27/21 19:51 Urine Bilirubin Neg (Negative) 12/27/21 19:51 Urine Urobilinogen Norm mg/dL (Negative) 12/27/21 19:51 Ur Leukocyte Esterase Negative (Negative) 12/27/21 19:51 Urine RBC 25-40 /hpf (0-2) H 12/27/21 19:51 Urine WBC 5-10 /hpf (0-5) H 12/27/21 19:51 Ur Squamous Epith Cells 0-4 /hpf (0-5) H 12/27/21 19:51 Amorphous Sediment Not Reportable 12/27/21 19:51 Urine Bacteria 1+ /hpf (NONE) H 12/27/21 19:51 Hyaline Casts 0-4 /lpf H 12/27/21 19:51 Discharge Plan Discharge Patient Disposition: Home Clinical Impression: Syncope, Hypertension Closed fracture of radial head Qualifiers: Encounter type: initial encounter Fracture alignment: displaced Laterality: left Qualified Code(s): S52.122A - Displaced fracture of head of left radius, initial encounter for closed fracture Condition: Stable Prescriptions: New Roxicodone 5 mg tablet 5 mg PO Q4H PRN (Reason: pain) Qty: 20 0RF No Action (DME) pen needle, diabetic [TechLITE Pen Needle] 31 gauge x 5/16 needle See Rx Instructions .ROUTE .MEDSUPPLY Qty: 1,200 0RF Rx Instructions: As directed nitroglycerin [Nitrostat] 0.4 mg tablet, sublingual 0.4 mg SUBLINGUAL Q5M PRN (Reason: Chest Pain) 0RF (DME) blood-glucose meter [Blood Glucose Monitoring] Kit See Rx Instructions .ROUTE .MEDSUPPLY Qty: 1 0RF Rx Instructions: As directed, May substitute for any brand dicyclomine 20 mg tablet See Rx Instructions PO TID PRN (Reason: IBS symptoms prn) Qty: 60 3RF Rx Instructions: take 1 tab TID for IBS prn prednisone 2.5 mg tablet 2.5 mg PO DAILY Qty: 90 1RF hydroxychloroquine 200 mg tablet 200 mg PO BID Qty: 60 3RF albuterol sulfate [ProAir HFA] 90 mcg/actuation HFA aerosol inhaler 2 puff INHALATION Q4H PRN (Reason: shortness of breath or wheezing) Qty: 8.5 2RF Eliquis 5 mg tablet 5 mg PO BID@0900,2100 Qty: 60 2RF fluoxetine 40 mg capsule 40 mg PO DAILY@2100 Qty: 30 2RF hydroxyzine pamoate 25 mg capsule 25 mg PO BID PRN (Reason: anxiety) Qty: 60 2RF methocarbamol 500 mg tablet 500 mg PO TID PRN (Reason: Muscle Spasm) Qty: 90 2RF nystatin 100,000 unit/gram powder 1 applic topical TID Qty: 60 0RF Rx Instructions: large area under breasts potassium chloride 20 mEq tablet extended release 20 meq PO DAILY Qty: 90 3RF (DME) compression socks, medium Misc See Rx Instructions .Route Qty: 2 0RF Rx Instructions: As directed (DME) wheelchair cushions See Rx Instructions .Route .MEDSUPPLY Qty: 1 0RF Rx Instructions: As directed clindamycin phosphate 1 % lotion See Rx Instructions .ROUTE .COMPLEX Qty: 60 1RF Dose Instruction: APPLY TOPICALLY TWICE DAILY NEEDED FOR SKIN IRRITATION Rx Instructions: APPLY TOPICALLY TWICE DAILY NEEDED FOR SKIN IRRITATION triamcinolone acetonide 0.1 % ointment 1 applic TOPICAL DAILY PRN (Reason: itching) Qty: 30 0RF cholecalciferol (vitamin D3) [Vitamin D3] 125 mcg (5,000 unit) Tablet 125 mcg PO DAILY 0RF Vitamin B-12 1 tab PO DAILY 0RF insulin aspart U-100 [Novolog Flexpen U-100 Insulin] 100 unit/mL (3 mL) insulin pen 6 - 27 unit SUBCUT TID 0RF acetaminophen 325 mg tablet 325 mg PO Q6H PRN (Reason: Pain) 0RF isosorbide mononitrate 60 mg tablet extended release 24 hr 60 mg PO DAILY 0RF pantoprazole 40 mg tablet,delayed release (DR/EC) 40 mg PO DAILY 0RF hydralazine 10 mg Tablet 10 mg PO TID 30 Days Qty: 90 0RF carvedilol 6.25 mg Tablet 3.125 mg PO BID 30 Days Qty: 30 0RF furosemide 80 mg tablet 40 mg PO DAILY Qty: 90 3RF Levemir FlexTouch U-100 Insuln 100 unit/mL (3 mL) insulin pen 100 unit SUBCUT BID Qty: 0 0RF Discharge Orders: Discharge ED (Routine); Ordered 12/28/21 Ordered By: Carlo Gilbert Referrals: Lorenzo Muller, ORTHOPEDIC TECH-C [Primary Care Provider] - Discharge Diet: Usual diet Discharge Activity: Limit activity as instructed Patient Instructions: Elbow Fracture (ED), How to Use a Sling (ED), Opioid Safety Activity Restrictions/Additional Instructions: Thank you for visiting the emergency department. You were seen and evaluated for fall with arm pain. The exact cause of your fall is unclear. You were found to have a radial head fracture. Please follow-up with orthopedics this week and wear sling constantly until follow-up. Please follow-up with your primary care provider and client technical professional. Return to the emergency department for uncontrolled pain, new numbness or tingling, recurrent syncope, or anything else that you are concerned about a feel needs emergency department evaluation. Coding Level of Care Code ED Ms Access Database Developer for Anel Mcknight
--- NOTE | 2021-12-27 16:11 | CTR_ITS ---
PROCEDURE INFORMATION: Exam: CT Head Without Contrast Exam date and time: 12/27/2021 4:11 PM Age: 66 years old Clinical indication: Injury or trauma; Blunt trauma (contusions or hematomas); Patient HX: Fall, headstrike on blood thinners; Additional info: Fall, headstrike on blood thinners, vision changes TECHNIQUE: Imaging protocol: Computed tomography of the head without contrast. Radiation optimization: All CT scans at this facility use at least one of these dose optimization techniques: automated exposure control; mA and/or kV adjustment per patient size (includes targeted exams where dose is matched to clinical indication); or iterative reconstruction. COMPARISON: MR head wo con* [id number] 12/15/2021 1:35 PM RADIATION DOSE METRICS: Total DLP (mGy-cm): 1022.27 FINDINGS: Brain: The brain is unremarkable. There is no mass effect or significant white matter disease. There is no acute intracranial hemorrhage. Cerebral ventricles: There is no significant ventricular dilation. The basal cisterns are unremarkable. Paranasal sinuses: The paranasal sinuses are clear. Mastoid air cells: The mastoid air cells are clear. Bones/joints: The calvarium is intact. Soft tissues: The visible extracranial soft tissues are unremarkable. CT/CT head wo con* [id number] IMPRESSION: No acute intracranial abnormality.
--- NOTE | 2021-12-27 16:11 | CTR_ITS ---
PROCEDURE INFORMATION: Exam: CT Cervical Spine Without Contrast Exam date and time: 12/27/2021 4:11 PM Age: 66 years old Clinical indication: Injury or trauma; Fall; Blunt trauma; Additional info: Fall, loc, sensory changes L arm TECHNIQUE: Imaging protocol: Computed tomography images of the cervical spine without contrast. Radiation optimization: All CT scans at this facility use at least one of these dose optimization techniques: automated exposure control; mA and/or kV adjustment per patient size (includes targeted exams where dose is matched to clinical indication); or iterative reconstruction. COMPARISON: CT neck w con* [id number] 12/14/2021 2:26 PM RADIATION DOSE METRICS: Total DLP (mGy-cm): 1613.38 FINDINGS: Bones/joints: Spinal alignment is normal. Vertebral body height is maintained. There is moderate multilevel facet spondylosis. No acute fracture. Discs/Spinal canal/Neural foramina: There is moderate degenerative disc disease in the cervical spine. There is no severe spinal stenosis. Lungs: Lung apices are clear. Soft tissues: Soft tissues in the neck and thoracic inlet are unremarkable. CT/CT cervical spin wo con* [id number] IMPRESSION: No acute fracture.
--- NOTE | 2021-12-27 16:11 | CTR_ITS ---
PROCEDURE INFORMATION: Exam: CT Chest With Contrast; Diagnostic Exam date and time: 12/27/2021 4:11 PM Age: 66 years old Clinical indication: Injury or trauma; Luq; Blunt trauma (contusions or hematomas); Prior surgery; Surgery date: 6+ months; Surgery type: Hyst, gb; Patient HX: C/O L sided chest shoulder and flank pain after fall; Additional info: Fall, L sides chest, shoulder, abd pain TECHNIQUE: Imaging protocol: Diagnostic computed tomography of the chest with contrast. Radiation optimization: All CT scans at this facility use at least one of these dose optimization techniques: automated exposure control; mA and/or kV adjustment per patient size (includes targeted exams where dose is matched to clinical indication); or iterative reconstruction. Contrast material: VISI 320; Contrast volume: 95 ml; Contrast route: INTRAVENOUS (IV); COMPARISON: CT angio chest w abd pel w con 05/14/2021 3:19 PM RADIATION DOSE METRICS: Total DLP (mGy-cm): 2392.01 FINDINGS: Lungs: A small left pleural effusion layers posteriorly and with small left basilar atelectasis. There is no pneumonia or mass. Pleural spaces: See Lungs finding. Heart: There are a few calcified plaques in the coronary arteries. Pulmonary arteries: The central pulmonary arteries enhance normally. Aorta: Unremarkable. No aortic aneurysm. Lymph nodes: There is 1 enlarged right infra carinal lymph node measuring 2.1 x 2.1 cm. However most mediastinal nodes are normal in size. Bones/joints: mild degenerative changes occur in the thoracic spine. There is slight deformity of the right lateral 10th rib of indeterminate acuity. Soft tissues: Unremarkable. PROCEDURE INFORMATION: Exam: CT Abdomen And Pelvis With Contrast Exam date and time: 12/27/2021 4:11 PM Age: 66 years old Clinical indication: Injury or trauma; Luq; Blunt trauma (contusions or hematomas); Prior surgery; Surgery date: 6+ months; Surgery type: Hyst, gb; Patient HX: C/O L sided chest shoulder and flank pain after fall; Additional info: Fall, L sides chest, shoulder, abd pain TECHNIQUE: Imaging protocol: Computed tomography of the abdomen and pelvis with contrast. Radiation optimization: All CT scans at this facility use at least one of these dose optimization techniques: automated exposure control; mA and/or kV adjustment per patient size (includes targeted exams where dose is matched to clinical indication); or iterative reconstruction. Contrast material: VISI 320; Contrast volume: 95 ml; Contrast route: INTRAVENOUS (IV); COMPARISON: CT angio chest w abd pel w con 05/14/2021 3:19 PM RADIATION DOSE METRICS: Total DLP (mGy-cm): 2392.01 FINDINGS: Liver: The left hepatic lobe is enlarged but of normal density. Gallbladder and bile ducts: Normal. No calcified stones. No ductal dilation. Pancreas: Normal. No ductal dilation. Spleen: The spleen measures up to 12 cm which is upper limits of normal. Adrenal glands: Normal. No mass. Kidneys and ureters: Normal. No hydronephrosis. Stomach and bowel: Unremarkable. No obstruction. No mucosal thickening. Appendix: No evidence of appendicitis. Intraperitoneal space: No free fluid, free air or abscess. Vasculature: There are scattered calcified plaques in the abdominal aorta and iliac arteries. Lymph nodes: Unremarkable. No enlarged lymph nodes. Urinary bladder: Unremarkable as visualized. Reproductive: The uterus is absent and the ovaries are not seen. Bones/joints: Chronic degenerative disc disease especially at L2-L3 and L3-L4. L4-L5 grade 1 subluxation due to facet degenerative changes. Soft tissues: Left lower quadrant abdominal wall subcutaneous fatty stranding may represent an ecchymosis. However no space-occupying hematoma. CT/CT chest abd pel w con* IMPRESSION: 1. Small left pleural effusion. 2. One enlarged subcarinal lymph node of indeterminate significance IMPRESSION: 1. No acute intra-abdominal or intrapelvic findings. 2. Left lower quadrant abdominal wall ecchymosis
--- NOTE | 2021-12-27 16:11 | XRR_ITS ---
PROCEDURE INFORMATION: Exam: XR Left Forearm Exam date and time: 12/27/2021 4:11 PM Age: 66 years old Clinical indication: Injury or trauma; Fall; Blunt trauma (contusions or hematomas); Arm, lower; Left; Additional info: Fall, pain TECHNIQUE: Imaging protocol: XR Left forearm. Views: 2 views. COMPARISON: CR (UP EXM, ) 12/27/2021 4:41 PM FINDINGS: Bones/joints: There is an acute comminuted fracture through the radial head with mild angulation. There is no dislocation Soft tissues: Increased fatty tissue. No obvious hematoma. XR/XR forearm LT 2V [id number] IMPRESSION: Radial head fracture
[2021-12-27] MEDS: fentaNYL 50 mcg/mL INJ 2mL IVP (16:41)
[2021-12-27 17:19] LABS: Basophils # 0.1 10^3/uL (0.0-0.1); Basophils % 0.9 %; Eosinophils # 0.3 10^3/uL (0.0-0.8); Eosinophils % 2.9 %; Hematocrit 34.8 % (37.0-47.0); Hemoglobin 11.1 g/dL (11.5-15.3); Lymphocytes # 1.6 10^3/uL (0.8-4.8); Mean Corpuscular HGB Conc 31.9 g/dL (30.0-36.0); Mean Corpuscular Hemoglobin 28.5 pg (28.0-34.0); Mean Corpuscular Volume 89.2 fl (81-99); Mean Platelet Volume 10.6 fL (7.4-10.4); Monocytes # 0.6 10^3/uL (0.2-0.9); Monocytes % 6.8 %; Neutrophils # 6.56 10^3/uL (1.8-7.7); Nucleated Red Blood Cells % 0 %; Platelet Count 227 10^3/cmm (130-400); White Blood Count 9.1 10^3/uL (4.0-10.0)
[2021-12-27 17:35] LABS: Troponin(5th) Baseline 27 ng/L (0-10)
[2021-12-27 17:45] LABS: Alanine Aminotransferase 20 U/L (0-33); Albumin Level 3.6 g/dL (3.5-5.2); Alkaline Phosphatase 92 IU/L (35-105); Blood Urea Nitrogen 27 mg/dL (8-23); Carbon Dioxide 29 mmol/L (22-29); Chloride 102 mmol/L (98-107); Creatine Phosphokinase 114 U/L (26-192); Globulin 2.2 g/dL (1.3-4.6); Glomerular Filtration Rate 45.2 mL/min (90-130); Glucose 169 mg/dL (65-115); NT Pro B Type Natriuretic Pept 1068 pg/mL (0-125); Osmolality Calculated 305 mOsm/kg (285-295); Sodium 143 mmol/L (136-145); Thyroid Stimulating Hormone 1.74 uIU/mL (0.27-4.20); Total Bilirubin 0.2 mg/dL (0.15-1.2); Total Protein 5.8 g/dL (6.6-8.7)
[2021-12-27 17:48] LABS: Aspartate Amino Transferase 18 U/L (0-32)
--- NOTE | 2021-12-27 18:12 | ECG_ITS ---
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 Measurements Intervals [place] Rate: 88 P: 61 [place]: 216 QRS: -79 QRSD: 148 T: 43 QT: 421 QTc: 511 Interpretive Statements SINUS RHYTHM WITH FIRST DEGREE AV BLOCK LEFT AXIS DEVIATION [QRS AXIS < -30] RIGHT BUNDLE BRANCH BLOCK Compared to ECG 12/13/2021 18:52:46 First degree AV block now present Left-axis deviation now present Right-axis deviation no longer present Electronically Signed On 12-28-2021 8:49:07 MANAGER TRUCK by Renee Seay M.D. [id number]
[2021-12-27] MEDS: HYDROmorphone 1 mg/mL INJ 1 mL 0.5 MG IVP (18:34)
[2021-12-27] MEDS: iodixanol 320 mg/mL 100mL Btl IV (18:41)
[2021-12-27 19:48] LABS: Troponin 5 2HR 22.47 ng/L (0-10)
[2021-12-27] MEDS: labetalol 5 mg/mL SDV 20mL 10 MG IVP (19:53)
[2021-12-27] MEDS: hyDRALAzine 10 mg Tablet PO (19:54)
[2021-12-27 19:55] LABS: Troponin 5 2HR Delta -4.53 ABS# (0-10)
[2021-12-27 20:43] LABS: Add Urine Microscopic? YES; Bilirubin Urine Neg (Negative); Blood Urine 2+ (Negative); Glucose Urine UA Norm (Normal); Ketones Urine Negative (Negative); Leukocyte Esterase Urine Negative (Negative); Nitrate Urine Negative (Negative); Protein Urine 3+ (Negative); Specific Gravity, Urine 1.015 (1.005-1.030); Urine Appearance Clear (CLEAR); Urine Color Yellow (Yellow); Urobilinogen Urine Norm (Negative); pH Urine 5 (5-7)
[2021-12-27 20:44] LABS: RBC Urine 25-40 /hpf (0-2); Squamous Epithelial Cell Urine 0-4 /hpf (0-5)
[2021-12-27 20:45] LABS: Add Urine Culture? Yes; Bacteria Urine 1+ /hpf; Hyaline Casts Urine 0-4 /lpf
--- NOTE | 2021-12-27 20:49 | PC.NURSE ---
Sling applied to left arm at this time.
[2021-12-27] MEDS: oxyCODONE 5 mg IR Tab/Cap 10 MG PO (21:17)
--- NOTE | 2021-12-27 22:12 | ECG_ITS ---
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 Measurements Intervals [place] Rate: 83 P: 66 AR: 225 QRS: -75 QRSD: 156 T: 56 QT: 423 QTc: 498 Interpretive Statements SINUS RHYTHM WITH FIRST DEGREE AV BLOCK LEFT AXIS DEVIATION [QRS AXIS < -30] RIGHT BUNDLE BRANCH BLOCK [120+ ms QRS DURATION, UPRIGHT V1, 40+ ms S IN I/aVL/V4/V5/V6] Compared to ECG 12/27/2021 18:06:54 No significant changes Electronically Signed On 12-28-2021 8:47:16 PHARMACY DATA ANALYST by Renee Seay M.D. [email or web address] [email or web address] [id number]
[2021-12-27] MEDS: fentaNYL 50 mcg/mL INJ 2mL 100 MCG IVP ×2 (22:15→23:05)
--- NOTE | 2021-12-27 22:54 | PC.NURSE ---
This RN gave report to BLAKE Kinsey at this time who will assume care at this time.
[2021-12-27] MEDS: ketorolac 30 mg/mL INJ 15 MG IVP (23:11)
[2021-12-28 00:56] VITALS: RESP 18; O2SAT 99
[2021-12-28 00:57] VITALS: BP 156/88; PULSE 86; RESP 18; O2SAT 94
--- NOTE | 2021-12-28 10:17 | DCPLANNER ---
Addendum entered by Aileen Martinez 01/01/22 06:38: Patient had a follow up appointment scheduled for 12.30.[address] Coats at ortho - patient did attend appointment. Original Note: manager materials management had message to schedule a follow up appointment for patient with ortho. manager materials management called the ortho clinic, spoke with [place], gave clinic patients information. manager materials management was told that patients information would be printed and reviewed. Clinic will call patient with appointment information.
== END 2021-12-28 01:01 | disposition home or self-care (01) ==
PROVIDERS: Emergency Medicine; Emergency Provider Emergency Medicine; PCP Nurse Practitioner
DX: S52.122A Displaced fracture of head of left radius, initial encounter for closed fracture (principal); R55 Syncope and collapse; I10 Essential (primary) hypertension; Z79.01 Long term (current) use of anticoagulants; Z79.4 Long term (current) use of insulin; Z87.891 Personal history of nicotine dependence; J44.9 Chronic obstructive pulmonary disease, unspecified; E11.40 Type 2 diabetes mellitus with diabetic neuropathy, unspecified; I50.9 Heart failure, unspecified; W18.30XA Fall on same level, unspecified, initial encounter
CPT/HCPCS: 70450; 71260; 72125; 73060; 73080; 73090; 73110; 74177; 80053; 81001; 82550; 83880; 84443; 84484; 85025; 87086; 93005; 96374; 96375; 96376; 99283; 99284; J1170; J1885; J3010; J3490; Q9967

== ENCOUNTER → 2021-12-29 12:06 | Outpatient (BNVA) | payer MEDICAID, SELFPAY | PROVIDERS: PCP Nurse Practitioner; Visit Provider Surgery | DX: R23.4 Changes in skin texture (principal) | CPT/HCPCS: 88304 ==

== ENCOUNTER 2021-12-30 10:27 | Outpatient (CLI) | payer MEDICAID, SELFPAY ==
--- NOTE | 2021-12-30 14:56 | USCV_ITS ---
Jennifer Novak Age: 66 Gender: F : 1955 Exam Date: 12/30/2021 15:54 Ordering Phys: Kirstin Coats MD Technologist: BRADLEY [place]am Location[place] [facility] [place] [facility] [place] Indication: LUE PAIN AND SWELLING HISTORY: Upper extremity swelling. Upper extremity pain. PROCEDURES: The following venous structures were evaluated: internal jugular vein, subclavian vein, axillary vein, and brachial veins. In addition, the radial vein and ulnar vein. Serial compression, augmentation maneuvers, and spectral Doppler flow evaluation were performed. FINDINGS: The veins of the left upper extremity are readily compressible with normal venous flow dynamics including spontaneous flow, respiratory phasic variation and augmentation. No evidence of deep vein thrombosis or superficial thrombophlebitis in the left upper extremity. CONCLUSIONS No evidence of thrombus of the left upper extremity veins. Giovanny Tolliver MD (Electronically Signed) Final Date: 31 December 2021 10:18 S
== END 2021-12-30 10:28 | disposition home or self-care (01) ==
LOC: RAD CLINIC 15:04 → RAD 15:09
PROVIDERS: PCP Nurse Practitioner; Visit Provider Specialist
DX: M79.89 Other specified soft tissue disorders (principal); M25.572 Pain in left ankle and joints of left foot
CPT/HCPCS: 73610; 93971

== ENCOUNTER 2022-01-03 19:22 | Inpatient (IN) | payer MEDICAID, SELFPAY ==
[2022-01-03 19:27] VITALS: BP 190/99; PULSE 83; RESP 18; TEMP 36.8; O2SAT 100; BMI 57.7
--- NOTE | 2022-01-03 19:33 | ECG_ITS ---
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 Measurements Intervals [place] Rate: 81 P: 59 OR: 212 QRS: -90 QRSD: 150 T: 73 QT: 427 QTc: 498 Interpretive Statements SINUS RHYTHM WITH FIRST DEGREE AV BLOCK LEFT AXIS DEVIATION [QRS AXIS < -30] RIGHT BUNDLE BRANCH BLOCK [120+ ms QRS DURATION, UPRIGHT V1, 40+ ms S IN I/aVL/V4/V5/V6] Compared to ECG 12/27/2021 22:20:38 No significant changes Electronically Signed On 01-04-2022 8:49:44 PUPPY TRAINER by Addison Morales M.D. [id number]
--- NOTE | 2022-01-03 19:33 | XRR_ITS ---
PROCEDURE INFORMATION: Exam: XR Chest Exam date and time: 01/03/2022 7:33 PM Age: 66 years old Clinical indication: Dyspnea; Patient HX: SOB this am TECHNIQUE: Imaging protocol: XR of the chest. Views: 1 view. COMPARISON: CT chest abd pel w con* 12/27/2021 6:55 PM FINDINGS: Lungs: No focal consolidation. No pulmonary edema. Pleural spaces: No pleural effusion. No pneumothorax. Heart/Mediastinum: Stable moderate enlargement of the cardiac silhouette. Mediastinal contours are unremarkable. Bones/joints: Unremarkable for age. XR/XR chest 1V portable [id number] IMPRESSION: 1. No acute cardiopulmonary process. 2. Incidental/nonacute findings are listed in the report.
--- NOTE | 2022-01-03 19:55 | XRR_ITS ---
PROCEDURE INFORMATION: Exam: XR Right Foot Exam date and time: 01/03/2022 7:55 PM Age: 66 years old Clinical indication: Foot; Right; Patient HX: No known injury pain since this am with bruising; Additional info: Foot pain TECHNIQUE: Imaging protocol: XR Right foot. Views: 1 or 2 views. COMPARISON: No relevant prior studies available. FINDINGS: Bones/joints: Small plantar calcaneal bone spur. Small calcified enthesophyte at the Achilles tendon insertion. Mild degenerative changes at the 1st MTP joint. No acute fracture. No dislocation. Normal bone mineralization. No joint effusion. Soft tissues: Mild soft tissue swelling dorsal to the metatarsals. No radiopaque foreign body. XR/XR foot RT 2V [id number] IMPRESSION: 1. No acute fracture. Followup imaging recommended in 7-14 days if clinical concern for fracture persists. 2. Mild soft tissue swelling dorsal to the metatarsals. 3. Incidental/nonacute findings are listed in the report.
--- NOTE | 2022-01-03 19:55 | XRR_ITS ---
PROCEDURE INFORMATION: Exam: XR Right Tibia and Fibula Exam date and time: 01/03/2022 7:55 PM Age: 66 years old Clinical indication: Lower leg; Right; Patient HX: No known injury pain with brruisng since this am; Additional info: Leg pain TECHNIQUE: Imaging protocol: XR Right tibia and fibula. Views: 2 views. COMPARISON: CR (LOW EXM, ) 12/13/2021 3:04 PM FINDINGS: Bones/joints: Stable mild degenerative changes at the right knee. Small calcified enthesophyte at the Achilles tendon insertion. Small plantar calcaneal bone spur. No acute fracture. No dislocation. Normal bone mineralization. No joint effusion. Soft tissues: No soft tissue swelling. No radiopaque foreign body. XR/XR tibia fibula RT 2V [id number] IMPRESSION: 1. No acute fracture. Followup imaging recommended in 7-14 days if clinical concern for fracture persists. 2. Incidental/nonacute findings are listed in the report.
--- NOTE | 2022-01-03 19:55 | XRR_ITS ---
PROCEDURE INFORMATION: Exam: XR Right Ankle Exam date and time: 01/03/2022 7:55 PM Age: 66 years old Clinical indication: Ankle; Right; Patient HX: No known injury pain with brusing; Additional info: Ankle pain TECHNIQUE: Imaging protocol: XR Right ankle. Views: 1 or 2 views. COMPARISON: No relevant prior studies available. FINDINGS: Bones/joints: Small calcified enthesophyte at the Achilles tendon insertion. Small plantar calcaneal bone spur. No acute fracture. No dislocation. Normal bone mineralization. No joint effusion. Soft tissues: Mild soft tissue swelling dorsal to the metatarsals. No radiopaque foreign body. XR/XR ankle RT 2V [id number] IMPRESSION: 1. No acute fracture. Followup imaging recommended in 7-14 days if clinical concern for fracture persists. 2. Mild soft tissue swelling dorsal to the metatarsals. 3. Incidental/nonacute findings are listed in the report.
[2022-01-03 20:23] LABS: Basophils # 0.1 10^3/uL (0.0-0.1); Eosinophils # 0.2 10^3/uL (0.0-0.8); Eosinophils % 2.6 %; Hematocrit 33.5 % (37.0-47.0); Hemoglobin 10.7 g/dL (11.5-15.3); Mean Corpuscular HGB Conc 31.9 g/dL (30.0-36.0); Mean Corpuscular Hemoglobin 28.1 pg (28.0-34.0); Mean Corpuscular Volume 87.9 fl (81-99); Mean Platelet Volume 10.5 fL (7.4-10.4); Monocytes # 0.6 10^3/uL (0.2-0.9); Monocytes % 6.9 %; Neutrophils % 76.1 %; Nucleated Red Blood Cells % 0 %; Platelet Count 230 10^3/cmm (130-400); Red Blood Count 3.81 10^6/uL (4.1-5.3); Red Cell Distribution Width 13.8 % (12.1-15.1)
[2022-01-03 20:46] LABS: Anion Gap 15.5 (5-19); Blood Urea Nitrogen 23 mg/dL (8-23); Calcium 9.1 mg/dL (8.5-10.5); Carbon Dioxide 31 mmol/L (22-29); Chloride 98 mmol/L (98-107); Glomerular Filtration Rate 41.2 mL/min (90-130); Glucose 214 mg/dL (65-115); Osmolality Calculated 300 mOsm/kg (285-295); Potassium 4.5 mmol/L (3.5-5.1); Sodium 140 mmol/L (136-145)
[2022-01-03 20:47] LABS: Troponin(5th) Baseline 29 ng/L (0-10)
[2022-01-03 20:49] VITALS: BP 206/98; PULSE 82; RESP 22; O2SAT 99
--- NOTE | 2022-01-03 21:33 | ECG_ITS ---
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 Measurements Intervals [place] Rate: 79 P: 63 [place]: 188 QRS: -79 QRSD: 148 T: 70 QT: 429 QTc: 494 Interpretive Statements SINUS RHYTHM LEFT AXIS DEVIATION [QRS AXIS < -30] RIGHT BUNDLE BRANCH BLOCK [120+ ms QRS DURATION, UPRIGHT V1, 40+ ms S IN I/aVL/V4/V5/V6] Compared to ECG 01/03/2022 20:10:00 First degree AV block no longer present Electronically Signed On 01-04-2022 8:57:06 MARINE SERVICES TECHNICIAN by Addison Morales M.D. [id number]
--- NOTE | 2022-01-03 21:46 | ED_ITS ---
HPI - Chest Pain General: Chief Complaint: Chest Pain Stated Complaint: CHEST PRESSURE Time Seen by Provider: 01/03/22 19:24 PFSH ED PFSH: Medical History Acute exacerbation of CHF (congestive heart failure) Atrial flutter Benign hypertension Chronic major depressive disorder Chronic obstructive pulmonary disease, unspecified CKD (chronic kidney disease) COPD, moderate Coronary artery fistula Diabetic neuropathy associated with type 2 diabetes mellitus Dietary noncompliance Diverticulosis Environmental and seasonal allergies Essential tremor Fibromyalgia High risk medication use IBS (irritable bowel syndrome) Inflammatory arthritis Mobility impaired Noncompliance with diabetes treatment Not consistent with diet Obesity Pain of both breasts Polyarthralgia Reduced ejection fraction concurrent with and due to chronic heart failure Situational anxiety SOB (shortness of breath) SOB (shortness of breath) Type 2 diabetes mellitus with diabetic chronic kidney disease Vitamin D deficiency Surgical History History of section 4 times History of cholecystectomy History of hysterectomy with BSO History of tonsillectomy Hx of colonoscopy Hx of esophagogastroduodenoscopy Family History Brother Bleeding disorder CAD (coronary artery disease) Father CAD (coronary artery disease) Chronic kidney disease (CKD) Mother CAD (coronary artery disease) Cancer Diabetes Family/Other Cancer Other CHF (congestive heart failure) Heart disease Hypertension Denies family history of Clotting disorder Dementia Suicide Anesthesia complication Lung disease Stroke Social History Smoking and tobacco status: former smoker Alcohol intake: never Lives independently: No Household members: other Details: Son, sometimes grandson Marital status: Single Course Vital Signs: Vital signs: Vital Signs Temperature 98.3 F 01/03/22 19:27 Pulse Rate 78 01/03/22 22:32 Respiratory Rate 18 01/03/22 22:32 Blood Pressure 221/99 01/03/22 22:32 Pulse Oximetry 99 01/03/22 22:32 MDM - Chest Pain Lab Data : 01/03/22 20:17 01/03/22 20:17 Radiology Impressions Chest X-Ray 01/03/22 19:33 IMPRESSION: 1. No acute cardiopulmonary process. 2. Incidental/nonacute findings are listed in the report. Ankle X-Ray 01/03/22 19:55 IMPRESSION: 1. No acute fracture. Followup imaging recommended in 7-14 days if clinical concern for fracture persists. 2. Mild soft tissue swelling dorsal to the metatarsals. 3. Incidental/nonacute findings are listed in the report. Foot X-Ray 01/03/22 19:55 IMPRESSION: 1. No acute fracture. Followup imaging recommended in 7-14 days if clinical concern for fracture persists. 2. Mild soft tissue swelling dorsal to the metatarsals. 3. Incidental/nonacute findings are listed in the report. Tibia/Fibula X-Ray 01/03/22 19:55 IMPRESSION: 1. No acute fracture. Followup imaging recommended in 7-14 days if clinical concern for fracture persists. 2. Incidental/nonacute findings are listed in the report. Laboratory Results WBC 8.0 10^3/uL (4.0-10.0) 01/03/22 20:17 RBC 3.81 10^6/uL (4.1-5.3) L 01/03/22 20:17 Hgb 10.7 g/dL (11.5-15.3) L 01/03/22 20:17 Hct 33.5 % (37.0-47.0) L 01/03/22 20:17 MCV 87.9 fl (81-99) 01/03/22 20:17 MCH 28.1 pg (28.0-34.0) 01/03/22 20:17 MCHC 31.9 g/dL (30.0-36.0) 01/03/22 20:17 RDW 13.8 % (12.1-15.1) 01/03/22 20:17 Plt Count 230 10^3/cmm (130-400) 01/03/22 20:17 MPV 10.5 fL (7.4-10.4) H 01/03/22 20:17 Neut % (Auto) 76.1 % 01/03/22 20:17 Lymph % (Auto) 13.0 % 01/03/22 20:17 Centre % (Auto) 6.9 % 01/03/22 20:17 Eos % (Auto) 2.6 % 01/03/22 20:17 Baso % (Auto) 1.0 % 01/03/22 20:17 Neut # (Auto) 6.10 10^3/uL (1.8-7.7) 01/03/22 20:17 Lymph # (Auto) 1.0 10^3/uL (0.8-4.8) 01/03/22 20:17 Centre # (Auto) 0.6 10^3/uL (0.2-0.9) 01/03/22 20:17 Eos # (Auto) 0.2 10^3/uL (0.0-0.8) 01/03/22 20:17 Baso # (Auto) 0.1 10^3/uL (0.0-0.1) 01/03/22 20:17 Nucleated RBC % (auto) 0 % 01/03/22 20:17 Nucleated RBCs # 0.0 /100WBC 01/03/22 20:17 Sodium 140 mmol/L (136-145) 01/03/22 20:17 Potassium 4.5 mmol/L (3.5-5.1) 01/03/22 20:17 Chloride 98 mmol/L (98-107) 01/03/22 20:17 Carbon Dioxide 31 mmol/L (22-29) H 01/03/22 20:17 Anion Gap 15.5 (5-19) 01/03/22 20:17 BUN 23 mg/dL (8-23) 01/03/22 20:17 Creatinine 1.3 mg/dL (0.5-0.9) H 01/03/22 20:17 GFR Calculation 41.2 mL/min (90-130) L 01/03/22 20:17 Glucose 214 mg/dL (65-115) H 01/03/22 20:17 Calculated Osmolality 300 mOsm/kg (285-295) H 01/03/22 20:17 Calcium 9.1 mg/dL (8.5-10.5) 01/03/22 20:17 Troponin T Baseline 29 ng/L (0-10) H 01/03/22 20:17 Discharge Plan Discharge Condition: Stable Prescriptions: No Action (DME) pen needle, diabetic [TechLITE Pen Needle] 31 gauge x 5/16 needle See Rx Instructions .ROUTE .MEDSUPPLY Qty: 1,200 0RF Rx Instructions: As directed nitroglycerin [Nitrostat] 0.4 mg tablet, sublingual 0.4 mg SUBLINGUAL Q5M PRN (Reason: Chest Pain) 0RF (DME) blood-glucose meter [Blood Glucose Monitoring] Kit See Rx Instructions .ROUTE .MEDSUPPLY Qty: 1 0RF Rx Instructions: As directed, May substitute for any brand dicyclomine 20 mg tablet See Rx Instructions PO TID PRN (Reason: IBS symptoms prn) Qty: 60 3RF Rx Instructions: take 1 tab TID for IBS prn prednisone 2.5 mg tablet 2.5 mg PO DAILY Qty: 90 1RF hydroxychloroquine 200 mg tablet 200 mg PO BID Qty: 60 3RF albuterol sulfate [ProAir HFA] 90 mcg/actuation HFA aerosol inhaler 2 puff INHALATION Q4H PRN (Reason: shortness of breath or wheezing) Qty: 8.5 2RF Eliquis 5 mg tablet 5 mg PO BID@0900,2100 Qty: 60 2RF fluoxetine 40 mg capsule 40 mg PO DAILY@2100 Qty: 30 2RF hydroxyzine pamoate 25 mg capsule 25 mg PO BID PRN (Reason: anxiety) Qty: 60 2RF methocarbamol 500 mg tablet 500 mg PO TID PRN (Reason: Muscle Spasm) Qty: 90 2RF nystatin 100,000 unit/gram powder 1 applic topical TID Qty: 60 0RF Rx Instructions: large area under breasts potassium chloride 20 mEq tablet extended release 20 meq PO DAILY Qty: 90 3RF (DME) compression socks, medium Misc See Rx Instructions .Route Qty: 2 0RF Rx Instructions: As directed (DME) wheelchair cushions See Rx Instructions .Route .MEDSUPPLY Qty: 1 0RF Rx Instructions: As directed clindamycin phosphate 1 % lotion See Rx Instructions .ROUTE .COMPLEX Qty: 60 1RF Dose Instruction: APPLY TOPICALLY TWICE DAILY NEEDED FOR SKIN IRRITATION Rx Instructions: APPLY TOPICALLY TWICE DAILY NEEDED FOR SKIN IRRITATION triamcinolone acetonide 0.1 % ointment 1 applic TOPICAL DAILY PRN (Reason: itching) Qty: 30 0RF cholecalciferol (vitamin D3) [Vitamin D3] 125 mcg (5,000 unit) Tablet 125 mcg PO DAILY 0RF Vitamin B-12 1 tab PO DAILY 0RF insulin aspart U-100 [Novolog Flexpen U-100 Insulin] 100 unit/mL (3 mL) insulin pen 6 - 27 unit SUBCUT TID 0RF Roxicodone 5 mg tablet 5 mg PO Q4H PRN (Reason: pain) Qty: 20 0RF acetaminophen 325 mg tablet 325 mg PO Q6H PRN (Reason: Pain) 0RF isosorbide mononitrate 60 mg tablet extended release 24 hr 60 mg PO DAILY 0RF pantoprazole 40 mg tablet,delayed release (DR/EC) 40 mg PO DAILY 0RF hydralazine 10 mg Tablet 10 mg PO TID 30 Days Qty: 90 0RF carvedilol 6.25 mg Tablet 3.125 mg PO BID 30 Days Qty: 30 0RF furosemide 80 mg tablet 40 mg PO DAILY Qty: 90 3RF Levemir FlexTouch U-100 Insuln 100 unit/mL (3 mL) insulin pen 100 unit SUBCUT BID Qty: 0 0RF Referrals: Lorenzo Muller, DRYING AND WINDING SUPERVISOR-C [Primary Care Provider] - Coding Level of Care Code ED Sales And Marketing Assistant for Anel Mcknight
[2022-01-03 22:32] VITALS: BP 221/99; PULSE 78; RESP 18; O2SAT 99
[2022-01-03 22:37] LABS: Troponin 5 2HR 28.97 ng/L (0-10)
[2022-01-03 22:39] LABS: Troponin 5 2HR Delta -0.03 ABS# (0-10)
--- NOTE | 2022-01-03 22:39 | W.ED.GENADLT ---
HPI - General Adult General: Chief complaint: Chest Pain Stated complaint: CHEST PRESSURE Time Seen by Provider: 01/03/22 19:24 History of Present Illness: Patient is a 66-year-old female with history of CHF, atrial flutter, CKD, COPD, coronary artery fistula, diabetes who presents the emergency room with complaints of sudden onset of left-sided chest pain tonight. Patient reports the chest pain is intermittent pressure-like occasionally sharp. Of note, patient has had multiple episodes of recurrent falls. Most recently, on 12/27, patient has had closed radial head fracture. Patient tells me that she has difficulty getting out of bed and performing her daily activity given the swelling in her legs as well as the recurrence of fall. Patient has home nursing, however gets home nursing for 3 hours out of the day. Patient denies any complaints including shortness of breath, abdominal pain, nausea/vomiting, fever/chills, cough, runny nose, sore throat. Patient denies any diarrhea, melena hematochezia or urinary complaints., Patient tells me that she recently underwent left side of breast biopsy to determine whether she has cancer. Patient is currently pending the work-up from her biopsy. Biopsy was performed last week. Patient developed sudden onset of chest pain tonight. Patient reports that her chest pain is deeper than her breast. Patient also complains of R lower extremity pain and bruises from recent fall and wants to checked out for any injuries. Onset: today Duration:ongoing Location:home Severity:moderate Associated symptoms: Reports chest pain; Deny dyspnea, nausea, rash, palpitations or vomiting Review of Systems Const: Denies: fever(s) or chills Eyes: Denies: change in vision ENMT: Denies: mouth pain Card: Reports: chest pain and other (+l sided breast pain); Denies: palpitations Resp: Denies: dyspnea or non-productive cough GI: Denies: abdominal pain, nausea, vomiting or diarrhea : Denies: dysuria Musc: Denies: extremity pain Skin/Breast: Denies: rash or new lesions Neuro: Denies: weakness in extremities Psych: Reports: other (Normal mood) Kobe/Lymph: Denies: easy bruising PFS ED PFSH: Medical History Acute exacerbation of CHF (congestive heart failure) Atrial flutter Benign hypertension Chronic major depressive disorder Chronic obstructive pulmonary disease, unspecified CKD (chronic kidney disease) COPD, moderate Coronary artery fistula Diabetic neuropathy associated with type 2 diabetes mellitus Dietary noncompliance Diverticulosis Environmental and seasonal allergies Essential tremor Fibromyalgia High risk medication use IBS (irritable bowel syndrome) Inflammatory arthritis Mobility impaired Noncompliance with diabetes treatment Not consistent with diet Obesity Pain of both breasts Polyarthralgia Reduced ejection fraction concurrent with and due to chronic heart failure Situational anxiety SOB (shortness of breath) SOB (shortness of breath) Type 2 diabetes mellitus with diabetic chronic kidney disease Vitamin D deficiency Surgical History History of section 4 times History of cholecystectomy History of hysterectomy with BSO History of tonsillectomy Hx of colonoscopy Hx of esophagogastroduodenoscopy Family History Brother Bleeding disorder CAD (coronary artery disease) Father CAD (coronary artery disease) Chronic kidney disease (CKD) Mother CAD (coronary artery disease) Cancer Diabetes Family/Other Cancer Other CHF (congestive heart failure) Heart disease Hypertension Denies family history of Clotting disorder Dementia Suicide Anesthesia complication Lung disease Stroke Social History Smoking and tobacco status: former smoker Alcohol intake: never Lives independently: No Household members: other Details: Son, sometimes grandson Marital status: Single Physical Exam Const: COMMON NORMALS: alert HENMT: COMMON NORMALS: atraumatic HEAD & SCALP: atraumatic MOUTH: moist mucous membranes not abnormal Eye: COMMON NORMALS: EOMs intact bilaterally and conjunctivae normal CONJUNCTIVA: Yes conjunctivae normal Neck/C-Spine: COMMON NORMALS: full ROM and supple Chest: OTHER: +Multiple biopsy sites on the L breast Resp: COMMON NORMALS: normal respiratory effort and clear to auscultation bilaterally AUSCULTATION: clear to auscultation bilaterally Cardio: COMMON NORMALS: regular rate RATE: regular rate GI: COMMON NORMALS: Soft to palpation and non-tender PALPATION: Yes Soft to palpation Extremity: COMMON NORMALS: full ROM Neuro: SENSORIUM/ORIENTATION: Yes alert MOTOR EXAM: No Abnormal motor strength present and Other motor observations present (no focal motor deficits) Psych: COMMON NORMALS: speech normal SPEECH: Yes normal speech MOOD & AFFECT: Yes euthymic mood Skin: NARRATIVE SKIN EXAM: +bruises over the R lower anterior camacho +L breast erythema with multiple biopsy wounds Course Vital Signs: Vital signs: Vital Signs Temperature 98.0 F 01/06/22 04:00 Pulse Rate 86 01/06/22 08:00 Respiratory Rate 18 01/06/22 10:15 Blood Pressure 179/71 01/06/22 08:00 Pulse Oximetry 96 01/06/22 10:15 [facility] - General Adult Medical Decision Making Patient is a 66-year-old female history of CHF, recurrent fall, CKD, COPD, recent L sided breast biopsy coronary fistula presenting to emergency room with complaints of acute onset of chest pain was 1 day. On exam, patient is hemodynamically stable, the left breast appears to be mildly inflamed and erythematous with multiple biopsy lesions. Troponin noted to be mildly elevated at 29, creatinine 1.3 similar to baseline. EKG does not appear to be ischemic. Discussed case with patient who tells me that she has had multiple episodes of fall and does not feel safe going home today. Have discussed with patient that she needs short-term rehabilitation versus assisted living. Patient tells me that she will consider the possibility for placement tomorrow. She will be admitted to the hospital for management of CKD in the setting of CHF as well as complaints of chest pain and need for placement to short term nursing facility vs rehab. Patient is complaining of right lower extremity pain. X-ray of the right foot tib-fib, ankle are negative for any acute signs of fracture Disposition: admission Lab Data : 01/06/22 03:12 01/06/22 03:12 Radiology Impressions Chest X-Ray 01/03/22 19:33 IMPRESSION: 1. No acute cardiopulmonary process. 2. Incidental/nonacute findings are listed in the report. Ankle X-Ray 01/03/22 19:55 IMPRESSION: 1. No acute fracture. Followup imaging recommended in 7-14 days if clinical concern for fracture persists. 2. Mild soft tissue swelling dorsal to the metatarsals. 3. Incidental/nonacute findings are listed in the report. Foot X-Ray 01/03/22 19:55 IMPRESSION: 1. No acute fracture. Followup imaging recommended in 7-14 days if clinical concern for fracture persists. 2. Mild soft tissue swelling dorsal to the metatarsals. 3. Incidental/nonacute findings are listed in the report. Tibia/Fibula X-Ray 01/03/22 19:55 IMPRESSION: 1. No acute fracture. Followup imaging recommended in 7-14 days if clinical concern for fracture persists. 2. Incidental/nonacute findings are listed in the report. Breast Ultrasound 01/04/22 13:30 IMPRESSION: BI-RADS: 4-Suspicious Finding-Biopsy Should Be Considered FOLLOW-UP: See Report 1. There is continued skin thickening with increased vascularity and a soft tissue nodule with increased vascularity posterior to the nipple. These findings were described on 12/04/2021 without significant improvement or progression. If skin biopsy has not been performed biopsy should be obtained. Additional biopsy of the low-attenuation mass with increased vascularity posterior to the nipple may also be necessary. Mastitis, cellulitis and neoplastic disease should also be considered. Laboratory Results WBC 8.0 10^3/uL (4.0-10.0) 01/03/22 20:17 RBC 3.81 10^6/uL (4.1-5.3) L 01/03/22 20:17 Hgb 10.7 g/dL (11.5-15.3) L 01/03/22 20:17 Hct 33.5 % (37.0-47.0) L 01/03/22 20:17 MCV 87.9 fl (81-99) 01/03/22 20:17 MCH 28.1 pg (28.0-34.0) 01/03/22 20:17 MCHC 31.9 g/dL (30.0-36.0) 01/03/22 20:17 RDW 13.8 % (12.1-15.1) 01/03/22 20:17 Plt Count 230 10^3/cmm (130-400) 01/03/22 20:17 MPV 10.5 fL (7.4-10.4) H 01/03/22 20:17 Neut % (Auto) 76.1 % 01/03/22 20:17 Lymph % (Auto) 13.0 % 01/03/22 20:17 [place] % (Auto) 6.9 % 01/03/22 20:17 Eos % (Auto) 2.6 % 01/03/22 20:17 Baso % (Auto) 1.0 % 01/03/22 20:17 Neut # (Auto) 6.10 10^3/uL (1.8-7.7) 01/03/22 20:17 Lymph # (Auto) 1.0 10^3/uL (0.8-4.8) 01/03/22 20:17 [place] # (Auto) 0.6 10^3/uL (0.2-0.9) 01/03/22 20:17 Eos # (Auto) 0.2 10^3/uL (0.0-0.8) 01/03/22 20:17 Baso # (Auto) 0.1 10^3/uL (0.0-0.1) 01/03/22 20:17 Nucleated RBC % (auto) 0 % 01/03/22 20:17 Nucleated RBCs # 0.0 /100WBC 01/03/22 20:17 Sodium 140 mmol/L (136-145) 01/03/22 20:17 Potassium 4.5 mmol/L (3.5-5.1) 01/03/22 20:17 Chloride 98 mmol/L (98-107) 01/03/22 20:17 Carbon Dioxide 31 mmol/L (22-29) H 01/03/22 20:17 Anion Gap 15.5 (5-19) 01/03/22 20:17 BUN 23 mg/dL (8-23) 01/03/22 20:17 Creatinine 1.3 mg/dL (0.5-0.9) H 01/03/22 20:17 GFR Calculation 41.2 mL/min (90-130) L 01/03/22 20:17 Glucose 214 mg/dL (65-115) H 01/03/22 20:17 Calculated Osmolality 300 mOsm/kg (285-295) H 01/03/22 20:17 Calcium 9.1 mg/dL (8.5-10.5) 01/03/22 20:17 Troponin T Baseline 29 ng/L (0-10) H 01/03/22 20:17 Troponin T 120 Minute 28.97 ng/L (0-10) H 01/03/22 22:15 Delta Troponin T -0.03 ABS# (0-10) L 01/03/22 22:15 C-Reactive Protein 27.6 mg/L (0.0-4.9) H 01/03/22 20:17 NT-Pro-B Natriuret Pep 1649 pg/mL (0-125) H 01/03/22 20:17 Imaging Data Other Imaging: Radiologist's impression: [facility] [address] [place] [address]. [place] [address] XRay Report Signed Patient: Jennifer Novak Unit #: [id number] : 1955 Age/Sex: 66 / F ADM Date: 01/03/22 Loc: ER Room/Bed: Attending Dr: Ordering Provider/Ordering MD: Dagoberto Sena MD Date of Service: 01/03/22 Procedure(s): XR tibia fibula RT 2V 03995 Accession Number(s): [id number] Report Number: [id number] PROCEDURE INFORMATION: Exam: XR Right Tibia and Fibula Exam date and time: 01/03/2022 7:55 PM Age: 66 years old Clinical indication: Lower leg; Right; Patient HX: No known injury pain with brruisng since this am; Additional info: Leg pain TECHNIQUE: Imaging protocol: XR Right tibia and fibula. Views: 2 views. COMPARISON: CR (LOW EXM, ) 12/13/2021 3:04 PM FINDINGS: Bones/joints: Stable mild degenerative changes at the right knee. Small calcified enthesophyte at the Achilles tendon insertion. Small plantar calcaneal bone spur. No acute fracture. No dislocation. Normal bone mineralization. No joint effusion. Soft tissues: No soft tissue swelling. No radiopaque foreign body. XR/XR tibia fibula RT 2V 04501 IMPRESSION: 1. No acute fracture. Followup imaging recommended in 7-14 days if clinical concern for fracture persists. 2. Incidental/nonacute findings are listed in the report. ? Dictated By: Tali Saldana MD Signed By: Tali Saldana MD Signed Date/Time: 01/03/222047 DD/ 54 [employer] [address] [place] [address]. [place] [address] XRay Report Signed Patient: Jennifer Novak Unit #: [id number] : 1955 Age/Sex: 66 / F ADM Date: 01/03/22 Loc: ER Room/Bed: Attending Dr: Ordering Provider/Ordering MD: Dagoberto Sena MD Date of Service: 01/03/22 Procedure(s): XR foot RT 2V 74447 Accession Number(s): [id number] Report Number: [id number] PROCEDURE INFORMATION: Exam: XR Right Foot Exam date and time: 01/03/2022 7:55 PM Age: 66 years old Clinical indication: Foot; Right; Patient HX: No known injury pain since this am with bruising; Additional info: Foot pain TECHNIQUE: Imaging protocol: XR Right foot. Views: 1 or 2 views. COMPARISON: No relevant prior studies available. FINDINGS: Bones/joints: Small plantar calcaneal bone spur. Small calcified enthesophyte at the Achilles tendon insertion. Mild degenerative changes at the 1st MTP joint. No acute fracture. No dislocation.? Normal bone mineralization.? No joint effusion. Soft tissues: Mild soft tissue swelling dorsal to the metatarsals. No radiopaque foreign body. XR/XR foot RT 2V 00512 IMPRESSION: 1. No acute fracture. Followup imaging recommended in 7-14 days if clinical concern for fracture persists. 2. Mild soft tissue swelling dorsal to the metatarsals. 3. Incidental/nonacute findings are listed in the report. ? Dictated By: Tali Saldana MD Signed By: Tali Saldana MD Signed Date/Time: 01/03/222048 DD/ [address] [address] XRay Report Signed Patient: Jennifer Novak Unit #: [id number] : 1955 Age/Sex: 66 / F ADM Date: 01/03/22 Loc: ER Room/Bed: Attending Dr: Ordering Provider/Ordering MD: Dagoberto Sena MD Date of Service: 01/03/22 Procedure(s): XR ankle RT 2V 44344 Accession Number(s): [id number] Report Number: [id number] PROCEDURE INFORMATION: Exam: XR Right Ankle Exam date and time: 01/03/2022 7:55 PM Age: 66 years old Clinical indication: Ankle; Right; Patient HX: No known injury pain with brusing; Additional info: Ankle pain TECHNIQUE: Imaging protocol: XR Right ankle. Views: 1 or 2 views. COMPARISON: No relevant prior studies available. FINDINGS: Bones/joints: Small calcified enthesophyte at the Achilles tendon insertion. Small plantar calcaneal bone spur. No acute fracture. No dislocation. Normal bone mineralization. No joint effusion. Soft tissues: Mild soft tissue swelling dorsal to the metatarsals. No radiopaque foreign body. XR/XR ankle RT 2V 95893 IMPRESSION: 1. No acute fracture. Followup imaging recommended in 7-14 days if clinical concern for fracture persists. 2. Mild soft tissue swelling dorsal to the metatarsals. 3. Incidental/nonacute findings are listed in the report. ? Dictated By: Tali Saldana MD Signed By: Tali Saldana MD Signed Date/Time: 01/03/222048 DD/ [address] [address] XRay Report Signed Patient: Jennifer Novak Unit #: [id number] : 1955 Age/Sex: 66 / F ADM Date: 01/03/22 Loc: ER Room/Bed: Attending Dr: Ordering Provider/Ordering MD: Dagoberto Sena MD Date of Service: 01/03/22 Procedure(s): XR chest 1V portable 88800 Accession Number(s): [id number] Report Number: [id number] PROCEDURE INFORMATION: Exam: XR Chest Exam date and time: 01/03/2022 7:33 PM Age: 66 years old Clinical indication: Dyspnea; Patient HX: SOB this am TECHNIQUE: Imaging protocol: XR of the chest. Views: 1 view. COMPARISON: CT chest abd pel w con* 12/27/2021 6:55 PM FINDINGS: Lungs: No focal consolidation. No pulmonary edema. Pleural spaces: No pleural effusion. No pneumothorax. Heart/Mediastinum: Stable moderate enlargement of the cardiac silhouette. Mediastinal contours are unremarkable. Bones/joints: Unremarkable for age. XR/XR chest 1V portable [id number] IMPRESSION: 1. No acute cardiopulmonary process. 2. Incidental/nonacute findings are listed in the report. ? Dictated By: Tali Saldana MD Signed By: Tali Saldana MD Signed Date/Time: 01/03/222050 DD/ 32 Discharge Plan Discharge Patient Disposition: Admitted As Inpatient Admit Provider: Oswaldo Scott Clinical Impression: Chest pain, Breast pain, CKD (chronic kidney disease), Advised to contact social work program coordinator Condition: Stable Coding Level of Care Code ED Back End Web Developer for Chg Fwd Exam Comprehensive
[2022-01-03] MEDS: acetaminophen 500 mg Tablet 1000 MG PO (23:02)
[2022-01-03 23:03] VITALS: BP 212/93; PULSE 81; RESP 18; O2SAT 98
--- NOTE | 2022-01-03 23:44 | P.HP_ITS ---
Providers/Chief Complaint Admitting Physician: Oswaldo Scott MD Primary Care Provider: MARYURI MensahP-C Chief Complaint: CHEST PRESSURE History of Present Illness Jennifer Noavk is a 66 year old female Review of Systems Const: Denies: fever(s) or chills Eyes: Denies: change in vision ENMT: Denies: nasal congestion Card: Reports: chest pain and swelling of feet/ankles Resp: Reports: dyspnea; Denies: productive cough, non-productive cough or wheezing GI: Denies: abdominal pain, nausea, vomiting, hematemesis, diarrhea, constipation, hematochezia or melena : Denies: flank pain, dysuria or urinary frequency Musc: Denies: neck pain or back pain Skin/Breast: Reports: rash and erythema Neuro: Denies: headache(s), dizziness or vertigo Endo: Denies: polyuria or polydipsia Medications/Allergies Home Medications Medication Instructions Recorded Confirmed Last Taken Type pen needle, diabetic 31 gauge x #1,200 each 12/20/19 12/30/21 Unknown History 04/05 (TechLITE Pen Needle) nitroglycerin 0.4 mg sublingual 0.4 mg SUBLINGUAL Q5M PRN 01/21/20 12/30/21 1 Month Ago History tablet (Nitrostat) ~06/09/21 blood-glucose meter (Blood Glucose #1 each 05/16/20 12/30/21 Unknown Rx Monitoring) Vitamin B-12 1 tab PO DAILY 05/14/21 12/30/21 12/12/21 History cholecalciferol (vitamin D3) 125 125 mcg PO DAILY 05/14/21 12/30/21 12/12/21 History mcg (5,000 unit) tablet (Vitamin D3) insulin aspart U-100 100 unit/mL 6 - 27 unit SUBCUT TID 05/14/21 12/30/21 2 Days Ago History (3 mL) subcutaneous pen (Novolog ~07/08/21 Flexpen U-100 Insulin aspart) dicyclomine 20 mg tablet See Rx Instructions PO TID PRN #60 09/28/21 12/30/21 Unknown Rx tab hydroxychloroquine 200 mg tablet 200 mg PO BID #60 tab 09/28/21 12/30/21 12/12/21 Rx prednisone 2.5 mg tablet 2.5 mg PO DAILY #90 tab 11/08/21 02/09/22 01/22/22 Rx albuterol sulfate 90 mcg/actuation 2 puff INHALATION Q4H PRN #8.5 gm 10/29/21 12/30/21 12/13/21 Rx aerosol inhaler (ProAir HFA) apixaban 5 mg tablet (Eliquis) 5 mg PO BID@0900,2100 #60 tab 10/29/21 12/30/21 12/12/21 Rx fluoxetine 40 mg capsule 40 mg PO DAILY@2100 #30 cap 10/29/21 12/30/21 12/12/21 Rx hydroxyzine pamoate 25 mg capsule 25 mg PO BID PRN #60 cap 10/29/21 12/30/21 Unknown Rx methocarbamol 500 mg tablet 500 mg PO TID PRN #90 tab 10/29/21 12/30/21 Unknown Rx nystatin 100,000 unit/gram topical 1 applic TOPICAL TID #60 g 11/18/21 12/30/21 Unknown Rx powder potassium chloride 20 mEq 20 meq PO DAILY #90 tab 11/24/21 12/30/21 12/12/21 Rx tablet,extended release compression socks, medium #2 ea 12/01/21 12/30/21 Unknown Rx wheelchair cushions #1 ea 12/02/21 12/30/21 Unknown Rx clindamycin phosphate 1 % lotion See Rx Instructions .ROUTE 12/11/21 12/30/21 Unknown Rx .COMPLEX #60 milliliter triamcinolone acetonide 0.1 % 1 applic TOPICAL DAILY PRN #30 gm 12/11/21 12/30/21 Unknown Rx topical ointment acetaminophen 325 mg tablet 325 mg PO Q6H PRN 12/13/21 12/30/21 Unknown History isosorbide mononitrate 60 mg 60 mg PO DAILY 12/13/21 12/30/21 12/12/21 History tablet,extended release 24 hr pantoprazole 40 mg tablet,delayed 40 mg PO DAILY 12/13/21 12/30/21 12/12/21 History release carvedilol 6.25 mg tablet 3.125 mg PO BID 30 Days #30 tab 12/15/21 12/30/21 Unknown Rx furosemide 80 mg tablet 40 mg PO DAILY #90 tab 12/15/21 12/30/21 12/12/21 Rx hydralazine 10 mg tablet 10 mg PO TID 30 Days #90 tab 12/15/21 12/30/21 Unknown Rx insulin detemir U-100 100 unit/mL 100 unit SUBCUT BID #0 ml 12/15/21 12/30/21 12/12/21 Rx (3 mL) subcutaneous pen (Levemir FlexTouch U-100 Insulin) oxycodone 5 mg tablet (Roxicodone) 5 mg PO Q4H PRN #20 tab 12/27/21 12/30/21 Un known Rx Allergies Allergy/AdvReac Type Severity Reaction Status Date / Time acetaminophen [From [place]] Allergy Unknown Verified 01/03/22 19:35 bacitracin Allergy ADR-Nausea Verified 01/03/22 19:35 codeine Allergy ADR-Nausea Verified 01/03/22 19:35 hydrocodone [From [place]] Allergy Unknown Verified 01/03/22 19:35 Latex, Natural Rubber Allergy Unknown Verified 01/03/22 19:35 morphine Allergy ADR-Itching Verified 01/03/22 19:35 neomycin Allergy ALGY-Rash Verified 01/03/22 19:35 [From Neosporin ([id number])] oxycodone Allergy Unknown Verified 01/03/22 19:35 polymyxin B Allergy ALGY-Rash Verified 01/03/22 19:35 [From Neosporin ([id number])] Sulfa (Sulfonamide Allergy ADR-Nausea Verified 01/03/22 19:35 Antibiotics) sulfamethoxazole Allergy Unknown Verified 01/03/22 19:35 [From Bactrim] trimethoprim [From Bactrim] Allergy Unknown Verified 01/03/22 19:35 PFSH Acute PFSH: Medical History Acute exacerbation of CHF (congestive heart failure) Atrial flutter Benign hypertension Chronic major depressive disorder Chronic obstructive pulmonary disease, unspecified CKD (chronic kidney disease) COPD, moderate Coronary artery fistula Diabetic neuropathy associated with type 2 diabetes mellitus Dietary noncompliance Diverticulosis Environmental and seasonal allergies Essential tremor Fibromyalgia High risk medication use IBS (irritable bowel syndrome) Inflammatory arthritis Mobility impaired Noncompliance with diabetes treatment Not consistent with diet Obesity Pain of both breasts Polyarthralgia Reduced ejection fraction concurrent with and due to chronic heart failure Situational anxiety SOB (shortness of breath) SOB (shortness of breath) Type 2 diabetes mellitus with diabetic chronic kidney disease Vitamin D deficiency Surgical History History of section 4 times History of cholecystectomy History of hysterectomy with BSO History of tonsillectomy Hx of colonoscopy Hx of esophagogastroduodenoscopy Family History Brother Bleeding disorder CAD (coronary artery disease) Father CAD (coronary artery disease) Chronic kidney disease (CKD) Mother CAD (coronary artery disease) Cancer Diabetes Family/Other Cancer Other CHF (congestive heart failure) Heart disease Hypertension Denies family history of Clotting disorder Dementia Suicide Anesthesia complication Lung disease Stroke Social History Smoking and tobacco status: former smoker Alcohol intake: never Lives independently: No Household members: other Details: Son, sometimes grandson Marital status: Single Vitals/I&O/Wt Last Vital Signs Temp 98.3 F 01/03/22 19:27 Pulse 81 01/03/22 23:03 Resp 18 01/03/22 23:03 BP 212/93 01/03/22 23:03 Pulse Ox 98 01/03/22 23:03 Weight last 48 hrs Weight 147.871 kg Physical Exam Const: COMMON NORMALS: no acute distress and patient oriented x3 HENMT: COMMON NORMALS: normocephalic HEAD & SCALP: normocephalic Eye: COMMON NORMALS: Equal, round and reactive pupils present and EOMs intact bilaterally Neck/C-Spine: COMMON NORMALS: no JVD Lymph: LYMPHATIC: no lymphadenopathy noted Chest: BREAST/AXILLA PALPATION: Yes abnormal palpation of the breast (Left breast, swelling, erythema, tenderness) Resp: COMMON NORMALS: normal respiratory effort, No retractions, No use of accessory muscles and clear to auscultation bilaterally AUSCULTATION: clear to auscultation bilaterally Cardio: COMMON NORMALS: no JVD, regular rate, regular rhythm, S1 normal heart sound present and S2 normal heart sound present RATE: regular rate RHYTHM: regular rhythm HEART SOUNDS: S1 normal heart sound present and S2 normal heart sound present GI: COMMON NORMALS: Normal to inspection, nondistended, normoactive bowel sounds present, Soft to palpation, non-tender, No hepatosplenomegaly present, no masses and no bruits PALPATION: Yes Soft to palpation and Yes No hepatosplenomegaly present Extremity: COMMON NORMALS: capillary refill normal, no clubbing, cyanosis or edema and no calf tenderness NARRATIVE EXTREMITY EXAM: 2+ pitting edema bilaterally Left wrist, left radial pain, left shoulder pain, left elbow pain Neuro: COMMON NORMALS: patient oriented x3 Psych: COMMON NORMALS: mental status grossly normal Skin: NARRATIVE SKIN EXAM: Multiple bruises, right camacho Data : 01/03/22 20:17 01/03/22 20:17 A&P Assessment and plan (1) Breast pain: Status: Acute (2) Chest pain: Status: Acute (3) CKD (chronic kidney disease): Status: Acute (4) Fracture of fibula, left, closed: Status: Acute (5) Acute exacerbation of CHF (congestive heart failure): Status: Acute (6) Cellulitis: Status: Acute Plan Left breast pain secondary to cellulitis -In the area of left breast biopsy -Start broad-spectrum antibiotic therapy vancomycin, Rocephin -Follow blood cultures -Monitor clinical response -Eliquis for DVT prophylaxis -DNR/DNI, confirmed with this patient multiple times Diastolic CHF exacerbation -Bumex 1 mg every 12 hours -Monitor creatinine, and urine output, monitor potassium -Fluid restrictions 1500 cc Left radial fracture -Secondary to fall -Has been seen by Dr. 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
[2022-01-04] VITALS (15 sets, daily range): BP systolic 150–224; BP diastolic 56–91; PULSE 78–93; RESP 16–23; TEMP 36.7–36.9; O2SAT 90–99; BMI 60.2
[2022-01-04 01:04] LABS: C Reactive Protein 27.6 mg/L (0.0-4.9); NT Pro B Type Natriuretic Pept 1649 pg/mL (0-125)
--- NOTE | 2022-01-04 01:33 | ECG_ITS ---
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 Measurements Intervals [place] Rate: 81 P: 53 WI: 224 QRS: -87 QRSD: 150 T: 71 QT: 437 QTc: 508 Interpretive Statements SINUS RHYTHM WITH FIRST DEGREE AV BLOCK RIGHT BUNDLE BRANCH BLOCK [120+ ms QRS DURATION, UPRIGHT V1, 40+ ms S IN I/aVL/V4/V5/V6] LEFT ANTERIOR FASCICULAR BLOCK [QRS AXIS <= -45, QR IN I, RS IN II] Compared to ECG 01/03/2022 21:40:31 First degree AV block now present Left anterior fascicular block now present Left-axis deviation no longer present Electronically Signed On 01-04-2022 8:56:43 [employer]T [employer] DRIER by Addison Morales M.D. [id number]
[2022-01-04] MEDS: bumetanide 0.25 mg/mL SDV 4 mL 1 MG IVP ×2 (02:22→14:08)
[2022-01-04] MEDS: ondansetron 2 mg/ML SDV 2 mL 4 MG IVP (02:23)
[2022-01-04] MEDS: hyDROXYzine 25 mg Capsule PO (02:24)
[2022-01-04] MEDS: oxyCODONE 5 mg IR Tab/Cap 2.5 MG PO ×4 (02:24→21:32)
[2022-01-04] MEDS: cefTRIAXone 1,000 MG in sodium chloride 0.9% (plus) 50 ML 100 MG IV (02:24)
[2022-01-04 03:07] LABS: Troponin 5 6HR 30.62 ng/L (0-10)
[2022-01-04 03:15] LABS: Troponin 5 6HR Delta 1.62 ng/L (0-12)
[2022-01-04] MEDS: vancomycin 1,500 MG/300 ML PIGGYBACK 200 MG IV (04:21)
[2022-01-04 06:00] LABS: Basophils # 0.1 10^3/uL (0.0-0.1); Basophils % 1.1 %; Eosinophils # 0.3 10^3/uL (0.0-0.8); Eosinophils % 3.7 %; Hematocrit 31.9 % (37.0-47.0); Hemoglobin 10.1 g/dL (11.5-15.3); Lymphocytes # 1.5 10^3/uL (0.8-4.8); Lymphocytes % 18.7 %; Mean Corpuscular HGB Conc 31.7 g/dL (30.0-36.0); Mean Corpuscular Hemoglobin 28.2 pg (28.0-34.0); Mean Corpuscular Volume 89.1 fl (81-99); Mean Platelet Volume 10.5 fL (7.4-10.4); Monocytes # 0.6 10^3/uL (0.2-0.9); Monocytes % 7.6 %; Neutrophils # 5.39 10^3/uL (1.8-7.7); Neutrophils % 68.5 %; Nucleated Red Blood Cells % 0 %; Platelet Count 249 10^3/cmm (130-400); Red Blood Count 3.58 10^6/uL (4.1-5.3); Red Cell Distribution Width 13.8 % (12.1-15.1); White Blood Count 7.9 10^3/uL (4.0-10.0)
[2022-01-04 06:39] LABS: Glucose Point of Care 134 mg/dL (70-110)
[2022-01-04 06:41] LABS: NT Pro B Type Natriuretic Pept 1514 pg/mL (0-125); Procalcitonin 0.12 ng/mL (0-0.5); Thyroid Stimulating Hormone 1.59 uIU/mL (0.27-4.20)
[2022-01-04 06:52] LABS: Alanine Aminotransferase 19 U/L (0-33); Albumin Level 3.3 g/dL (3.5-5.2); Alkaline Phosphatase 82 IU/L (35-105); Anion Gap 16.3 (5-19); Aspartate Amino Transferase 13 U/L (0-32); Blood Urea Nitrogen 24 mg/dL (8-23); Calcium 9.8 mg/dL (8.5-10.5); Carbon Dioxide 28 mmol/L (22-29); Chloride 100 mmol/L (98-107); Globulin 3.2 g/dL (1.3-4.6); Glomerular Filtration Rate 45.2 mL/min (90-130); Glucose 177 mg/dL (65-115); Magnesium 2.2 mg/dL (1.7-2.3); Osmolality Calculated 298 mOsm/kg (285-295); Phosphorus 3.7 mg/dL (2.5-4.5); Potassium 4.3 mmol/L (3.5-5.1); Sodium 140 mmol/L (136-145); Total Bilirubin 0.2 mg/dL (0.15-1.2); Total Protein 6.5 g/dL (6.6-8.7)
[2022-01-04] MEDS: carvedilol 6.25 mg Tablet 3.125 MG PO ×2 (08:39→17:51)
[2022-01-04] MEDS: cholecalciferol (vitamin D3) 5,000 unit Tablet 5000 UNIT PO (08:40)
[2022-01-04] MEDS: potassium chloride ER 20 mEq Tablet PO (08:40)
[2022-01-04] MEDS: predniSONE 5 mg Tablet 2.5 MG PO (08:41)
[2022-01-04] MEDS: isosorbide mononitrate ER 60 mg Tablet PO (08:41)
[2022-01-04] MEDS: hyDRALAzine 10 mg Tablet PO ×3 (08:42→18:19)
--- NOTE | 2022-01-04 10:22 | PC.NURSE ---
notified Dr Levine that patient refused her Protonix and Eliquis this morning.
--- NOTE | 2022-01-04 10:40 | PC.CHAP ---
Pastoral Care Encounter/Spiritual Assessment Type of Contact [] Declined grocery store associate visit [] Patient/Family/Request visit [] Outpatient visit [] Follow-up visit [] Physician referral [] Code/Alert [x] Routine visit [] Staff referral [] Actively dying [] Patient sleeping [] Family support [] [] Out of room [] Palliative care [] [] Receiving care in room [] Pre-surgical visit [] Trauma [] Long length of stay [] ICU visit [] Other: Relational/Emotional Strength [x Spirituality of Patient [x] Person of Basia [] Attends Cheondoism of their Basia [x] Believes in Prayer [] Reads Bible or Spiritism materials [] There are Spiritual issues to be addressed Ice Delivery Driver Interventions x[] Prayer [x] Active listening [x] Non-anxious presence [x] Spiritual/emotional support [] Crisis/trauma care [] Spiritual counseling [] Bereavement support [] Provided bereavement packet [] Provided Bible/devotional materials [] Provided toy/stuffed animal, coloring book to patient or family member [] Provided Communion [] Anointing/[place] [] Salvation [x] Completed spiritual assessment [] Other: Impact on Illness or Injury [] Angry [] Fearful [] Anxious [] Often cries [] Exhaustion [] Unable to work [] Unable to attend buddhism [] Unable to walk/stand [] Unable to read [] Unable to drive [] Unable to eat/drink [] Unable to sleep [] Unable to be with family [] Patient intubated [] Other: Summary Time spent with patient
[2022-01-04 11:55] LABS: Glucose Point of Care 242 mg/dL (70-110)
[2022-01-04] MEDS: insulin lispro 100 unit/1 mL SUBCUT ×2 (12:18→17:52)
--- NOTE | 2022-01-04 12:31 | PM.PN ---
Subjective Subjective: Patient was seen and examined this morning, continue to complain of significant left breast pain, had good urine output this morning, shortness of breath has improved. Medications: Medication Review Details: Generic Name Dose Route Start Last Admin Trade Name Santana PRN Reason Stop Dose Admin Acetaminophen 650 mg 01/04/22 01:01 01/04/22 14:07 Acetaminophen 32 5 Mg Tablet PO 650 mg Q6H PRN Administration Mild/Mod Pain Or Temp >/= 101 Apixaban 5 mg 01/04/22 09:00 01/04/22 08:46 Apixaban 5 Mg Ta blet PO Not Given BID@0900,2100 HERMINIO Bumetanide 1 mg 01/04/22 02:00 01/04/22 14:08 Bumetanide 0.25 Mg/Ml Sdv 4 Ml IVP 1 mg Q12H HERMINIO Administration Carvedilol 3.125 mg 01/04/22 09:00 01/04/22 08:39 Carvedilol 6.25 Mg Tablet PO 3.125 mg BID HERMINIO Administration Hydralazine HCl 10 mg 01/04/22 09:00 01/04/22 14:08 Hydralazine 10 M g Tablet PO 10 mg TID HERMINIO Administration Hydroxyzine Pamoat e 25 mg 01/04/22 01:01 01/04/22 02:24 Hydroxyzine 25 M g Capsule PO 25 mg BID PRN Administration anxiety Ceftriaxone Sodium 1,000 mg/ 50 mls @ 100 mls/ hr 01/04/22 02:00 01/04/22 03:01 Sodium Chloride IV Infused Q24H HERMINIO Infusion Protocol Vancomycin/PEG/NAD A/Lysine/Water 1,500 mg in 300 m ls @ 200 mls/hr 01/04/22 04:00 01/04/22 06:05 Vancocin IV Infused Q24H HERMINIO Infusion Insulin Detemir 100 unit 01/04/22 09:00 01/04/22 08:47 Insulin Detemir 100 Units/1 Ml SUBCUT 100 unit DAILY HERMINIO Administration Insulin Human Lisp ro 0 unit 01/04/22 08:00 01/04/22 12:18 Insulin Lispro 1 00 Unit/1 Ml SUBCUT 6 unit TIDWM HERMINIO Administration Protocol Isosorbide Mononit rate 60 mg 01/04/22 09:00 01/04/22 08:41 Isosorbide [place] itrate Er 60 Mg Ta blet PO 60 mg DAILY HERMINIO Administration Methocarbamol 500 mg 01/04/22 01:01 01/04/22 15:30 Methocarbamol 50 0 Mg Tablet PO 500 mg TID PRN Administration Muscle Spasm Nystatin 1 applic 01/04/22 09:00 01/04/22 14:31 Nystatin Powder 15 Gm Btl TOPICAL Not Given TID HERMINIO Ondansetron HCl 4 mg 01/04/22 01:01 01/04/22 02:23 Ondansetron 2 Mg /Ml Sdv 2 Ml IVP 4 mg Q8H PRN Administration vomiting, or N/V if npo Oxycodone HCl 2.5 mg 01/04/22 01:01 01/04/22 13:26 Oxycodone 5 Mg I r Tab/Cap PO 2.5 mg Q4H PRN Administration pain Pantoprazole Sodiu m 40 mg 01/04/22 09:00 01/04/22 08:[address] 40 Mg Tablet PO Not Given DAILY HERMINIO Potassium Chloride 20 meq 01/04/22 09:00 01/04/22 08:40 Potassium Chlori de Er 20 Meq Table t PO 20 meq DAILY HERMINIO Administration Prednisone 2.5 mg 01/04/22 09:00 01/04/22 08:41 Prednisone 5 Mg Tablet PO 2.5 mg DAILY HERMINIO Administration Vitamin D 5,000 unit 01/04/22 09:00 01/04/22 08:40 Cholecalciferol (Vitamin D3) 5,000 Unit Tablet PO 5,000 unit DAILY HERMINIO Administration Vitals/I&O/Wt Last Vital Signs Temp 98.4 F 01/04/22 07:49 Pulse 78 01/04/22 07:49 Resp 18 01/04/22 08:43 BP 191/89 01/04/22 07:49 Pulse Ox 99 01/04/22 08:43 01/03/22 01/04/22 01/04/22 22:59 06:59 14:59 Intake Total 350 / 350 240 / 240 Output Total 400 / 400 Balance -50 / -50 240 / 240 Weight last 48 hrs Weight 154.267 kg Weight 147.871 kg Physical Exam Const: COMMON NORMALS: patient oriented x3 HENMT: COMMON NORMALS: normocephalic, atraumatic, hearing grossly normal bilaterally and external ears normal HEAD & SCALP: normocephalic and atraumatic EXTERNAL EAR: Yes external ears normal Eye: COMMON NORMALS: no scleral icterus GENERAL EYE: appearance normal, both eyes and all related structures Chest: COMMONS NORMALS: normal inspection of the chest and normal palpation of entire chest wall CHEST: Yes Symmetrical chest wall rise OTHER: Left breast erythema swelling and tenderness present Resp: COMMON NORMALS: normal respiratory effort, No retractions, No use of accessory muscles and clear to auscultation bilaterally EFFORT & INSPECTION: Yes symmetric chest movement AUSCULTATION: clear to auscultation bilaterally Cardio: COMMON NORMALS: regular rate, regular rhythm, S1 normal heart sound present, S2 normal heart sound present, No gallops present (Cardio), No murmurs present (Cardio), No rub (Cardio) and Peripheral pulses 2+ throughout RATE: regular rate RHYTHM: regular rhythm HEART SOUNDS: S1 normal heart sound present and S2 normal heart sound present PERIPHERAL PULSES: Peripheral pulses 2+ throughout GI: COMMON NORMALS: Normal to inspection, nondistended, normoactive bowel sounds present, Soft to palpation, non-tender, No hepatosplenomegaly present and no masses AUSCULTATION: Yes normoactive bowel sounds PALPATION: Yes Soft to palpation and Yes No hepatosplenomegaly present RECTAL EXAM: deferred Extremity: OTHER: 2+ bilateral lower extremity pitting edema present Neuro: COMMON NORMALS: patient oriented x3 Data : 01/04/22 02:18 01/04/22 02:18 Micro: Microbiology 01/04/22 02:21 Blood Culture - Preliminary Blood SPECIMEN COLLECTED 01/04/22 02:18 Blood Culture - Preliminary Blood SPECIMEN COLLECTED A&P Assessment and plan (1) Breast pain: Status: Acute (2) Chest pain: Status: Acute (3) CKD (chronic kidney disease): Status: Acute (4) Fracture of fibula, left, closed: Status: Acute (5) Acute exacerbation of CHF (congestive heart failure): Status: Acute (6) Cellulitis: Status: Acute Plan #Left breast pain secondary to cellulitis: Status post left breast biopsy: Biopsy result is negative for any malignancy: Findings are consistent with neuroma. Follow blood culture Follow ultrasound of left breast -Continue vancomycin, Rocephin -Pain control. #Decompensated HFpef : Patient is complaining of worsening shortness of breath worsening bilateral lower extremity swelling, elevated proBNP. Continue to monitor intake output charting Fluid restriction:1500 cc k>4, mg >2 Bumex 1 mg every 12 hours Patient will need hospital bed : To maintain elevated head end 30 or more Left radial fracture -Secondary to fall -Has been seen by Dr. Coats, arm is to be to splint -Currently medically managing -Pain control oxycodone Fracture of distal end of fibula -Currently out of splint -PT OT Atrial flutter: Currently heart rate is well controlled Continue carvedilol continue Eliquis Hypertension, continue home meds Insulin-dependent type 2 diabetes mellitus, continue home Levemir, insulin low-dose sliding scale LIZ, noncompliant with CPAP COPD not exacerbation -CODE STATUS : DNR/DNI, Attestations Medical Necessity Statement*: Patient is to be in hospital for management of decompensated heart failure, left breast cellulitis. 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
--- NOTE | 2022-01-04 13:30 | US_ITS ---
WS: [id number] ULTRASOUND LEFT BREAST HISTORY: cellulitis COMPARISON: 12/04/2021 TECHNIQUE: 2-D and Doppler. There is continued soft tissue thickening over the LEFT breast with edema and mild increased vascular ity. Again noted is a low-attenuation mass posterior to the LEFT nipple with increased vascularity me asuring 1.9 x 1.5 x 2.0 cm. No significant improvement. US/[place] breast [place] complete [id number] IMPRESSION: BI-RADS: 4-Suspicious Finding-Biopsy Should Be Considered FOLLOW-UP: See Report 1. There is continued skin thickening with increased vascularity and a soft ti ssue nodule with increased vascularity posterior to the nipple. These findings were described on 12/04/2021 without significant improvement or progression. If skin biopsy has not been performed biopsy should be obtained. Additional biopsy of the low-attenuation mass with increased vascularity posterior to the nipple may also be necessary. Mastitis, cellulitis and neoplastic disease should also be considered.
[2022-01-04] MEDS: acetaminophen 325 mg Tablet 650 MG PO (14:07)
[2022-01-04] MEDS: methocarbamol 500 mg Tablet PO (15:30)
[2022-01-04 16:33] LABS: Glucose Point of Care 254 mg/dL (70-110)
--- NOTE | 2022-01-04 18:00 | PC.NURSE ---
Notified Dr Levine that patient's blood pressure is 179-76
--- NOTE | 2022-01-04 18:03 | PC.NURSE ---
rcvd order from Dr Levine to give hydralazine early.
[2022-01-04 20:59] LABS: Glucose Point of Care 271 mg/dL (70-110)
[2022-01-04] MEDS: fluoxetine 20 mg Capsule 40 MG PO (21:28)
[2022-01-05] VITALS (10 sets, daily range): BP systolic 187–214; BP diastolic 73–81; PULSE 85–105; RESP 16–20; TEMP 36.6–36.9; O2SAT 93–99
[2022-01-05] MEDS: methocarbamol 500 mg Tablet PO (00:30)
[2022-01-05] MEDS: cefTRIAXone 1,000 MG in sodium chloride 0.9% (plus) 50 ML 100 MG IV (01:21)
[2022-01-05] MEDS: oxyCODONE 5 mg IR Tab/Cap 2.5 MG PO ×4 (01:22→18:36)
[2022-01-05] MEDS: bumetanide 0.25 mg/mL SDV 4 mL 1 MG IVP (02:25)
[2022-01-05] MEDS: acetaminophen 325 mg Tablet 650 MG PO (02:32)
[2022-01-05] MEDS: vancomycin 1,500 MG/300 ML PIGGYBACK 200 MG IV (03:26)
[2022-01-05 06:32] LABS: Basophils # 0.1 10^3/uL (0.0-0.1); Basophils % 0.9 %; Eosinophils # 0.3 10^3/uL (0.0-0.8); Eosinophils % 4.3 %; Hematocrit 34.8 % (37.0-47.0); Hemoglobin 10.6 g/dL (11.5-15.3); Lymphocytes # 1.6 10^3/uL (0.8-4.8); Lymphocytes % 23.4 %; Mean Corpuscular HGB Conc 30.5 g/dL (30.0-36.0); Mean Corpuscular Hemoglobin 28.1 pg (28.0-34.0); Mean Corpuscular Volume 92.3 fl (81-99); Mean Platelet Volume 10.2 fL (7.4-10.4); Monocytes # 0.7 10^3/uL (0.2-0.9); Monocytes % 9.7 %; Neutrophils # 4.28 10^3/uL (1.8-7.7); Neutrophils % 61.1 %; Nucleated Red Blood Cells % 0 %; Platelet Count 237 10^3/cmm (130-400); Red Blood Count 3.77 10^6/uL (4.1-5.3); Red Cell Distribution Width 14.1 % (12.1-15.1)
[2022-01-05 06:47] LABS: Anion Gap 14.7 (5-19); Blood Urea Nitrogen 29 mg/dL (8-23); Calcium 8.8 mg/dL (8.5-10.5); Carbon Dioxide 31 mmol/L (22-29); Chloride 99 mmol/L (98-107); Glomerular Filtration Rate 37.9 mL/min (90-130); Glucose 206 mg/dL (65-115); Magnesium 2.2 mg/dL (1.7-2.3); Osmolality Calculated 302 mOsm/kg (285-295); Phosphorus 5.9 mg/dL (2.5-4.5); Potassium 4.7 mmol/L (3.5-5.1); Sodium 140 mmol/L (136-145)
[2022-01-05 06:47] LABS: Glucose Point of Care 196 mg/dL (70-110)
[2022-01-05 06:56] LABS: Creatinine Clr Calc Pharmacy 59.6953
[2022-01-05] MEDS: carvedilol 6.25 mg Tablet 3.125 MG PO ×2 (09:13→17:02)
[2022-01-05] MEDS: predniSONE 5 mg Tablet 2.5 MG PO (09:14)
[2022-01-05] MEDS: potassium chloride ER 20 mEq Tablet PO (09:14)
[2022-01-05] MEDS: hyDRALAzine 10 mg Tablet PO ×3 (09:14→21:13)
[2022-01-05] MEDS: cholecalciferol (vitamin D3) 5,000 unit Tablet 5000 UNIT PO (09:14)
[2022-01-05] MEDS: isosorbide mononitrate ER 60 mg Tablet PO (09:14)
[2022-01-05] MEDS: insulin lispro 100 unit/1 mL SUBCUT ×3 (09:16→17:02)
--- NOTE | 2022-01-05 11:06 | P.PN_ITS ---
Subjective Subjective: Patient was seen and examined this morning, continue to complain of significant left breast pain, as well as left arm pain. Medications: Medication Review Details: Generic Name Dose Route Start Last Admin Trade Name Santana PRN Reason Stop Dose Admin Acetaminophen 650 mg 01/04/22 01:01 01/04/22 14:07 Acetaminophen 32 5 Mg Tablet PO 650 mg Q6H PRN Administration Mild/Mod Pain Or Temp >/= 101 Apixaban 5 mg 01/04/22 09:00 01/04/22 08:46 Apixaban 5 Mg Ta blet PO Not Given BID@0900,2100 HERMINIO Bumetanide 1 mg 01/04/22 02:00 01/04/22 14:08 Bumetanide 0.25 Mg/Ml Sdv 4 Ml IVP 1 mg Q12H HERMINIO Administration Carvedilol 3.125 mg 01/04/22 09:00 01/04/22 08:39 Carvedilol 6.25 Mg Tablet PO 3.125 mg BID HERMINIO Administration Hydralazine HCl 10 mg 01/04/22 09:00 01/04/22 14:08 Hydralazine 10 M g Tablet PO 10 mg TID HERMINIO Administration Hydroxyzine Pamoat e 25 mg 01/04/22 01:01 01/04/22 02:24 Hydroxyzine 25 M g Capsule PO 25 mg BID PRN Administration anxiety Ceftriaxone Sodium 1,000 mg/ 50 mls @ 100 mls/ hr 01/04/22 02:00 01/04/22 03:01 Sodium Chloride IV Infused Q24H HERMINIO Infusion Protocol Vancomycin/PEG/NAD A/Lysine/Water 1,500 mg in 300 m ls @ 200 mls/hr 01/04/22 04:00 01/04/22 06:05 Vancocin IV Infused Q24H HERMINIO Infusion Insulin Detemir 100 unit 01/04/22 09:00 01/04/22 08:47 Insulin Detemir 100 Units/1 Ml SUBCUT 100 unit DAILY HERMINIO Administration Insulin Human Lisp ro 0 unit 01/04/22 08:00 01/04/22 12:18 Insulin Lispro 1 00 Unit/1 Ml SUBCUT 6 unit TIDWM HERMINIO Administration Protocol Isosorbide Mononit rate 60 mg 01/04/22 09:00 01/04/22 08:41 Isosorbide [place] itrate Er 60 Mg Ta blet PO 60 mg DAILY HERMINIO Administration Methocarbamol 500 mg 01/04/22 01:01 01/04/22 15:30 Methocarbamol 50 0 Mg Tablet PO 500 mg TID PRN Administration Muscle Spasm Nystatin 1 applic 01/04/22 09:00 01/04/22 14:31 Nystatin Powder 15 Gm Btl TOPICAL Not Given TID HERMINIO Ondansetron HCl 4 mg 01/04/22 01:01 01/04/22 02:23 Ondansetron 2 Mg /Ml Sdv 2 Ml IVP 4 mg Q8H PRN Administration vomiting, or N/V if npo Oxycodone HCl 2.5 mg 01/04/22 01:01 01/04/22 13:26 Oxycodone 5 Mg I r Tab/Cap PO 2.5 mg Q4H PRN Administration pain Pantoprazole Sodiu m 40 mg 01/04/22 09:00 01/04/22 08:[address] 40 Mg Tablet PO Not Given DAILY HERMINIO Potassium Chloride 20 meq 01/04/22 09:00 01/04/22 08:40 Potassium Chlori de Er 20 Meq Table t PO 20 meq DAILY HERMINIO Administration Prednisone 2.5 mg 01/04/22 09:00 01/04/22 08:41 Prednisone 5 Mg Tablet PO 2.5 mg DAILY HERMINIO Administration Vitamin D 5,000 unit 01/04/22 09:00 01/04/22 08:40 Cholecalciferol (Vitamin D3) 5,000 Unit Tablet PO 5,000 unit DAILY HERMINIO Administration Vitals/I&O/Wt Last Vital Signs Temp 97.8 F 01/05/22 08:00 Pulse 88 01/05/22 08:00 Resp 16 01/05/22 09:15 BP 187/81 01/05/22 08:00 Pulse Ox 94 01/05/22 09:15 01/04/22 01/05/22 01/05/22 22:59 06:59 14:59 Intake Total 600 / 1200 710 / 1910 Output Total 700 / 700 600 / 600 Balance 600 / 1200 10 / 1210 -600 / -600 Weight last 48 hrs Weight 154.267 kg Weight 147.871 kg Physical Exam Const: COMMON NORMALS: patient oriented x3 HENMT: COMMON NORMALS: normocephalic, atraumatic, hearing grossly normal bilaterally and external ears normal HEAD & SCALP: normocephalic and atraumatic EXTERNAL EAR: Yes external ears normal Eye: COMMON NORMALS: no scleral icterus GENERAL EYE: appearance normal, both eyes and all related structures Chest: COMMONS NORMALS: normal inspection of the chest and normal palpation of entire chest wall CHEST: Yes Symmetrical chest wall rise OTHER: Left breast erythema swelling and tenderness present Resp: COMMON NORMALS: normal respiratory effort, No retractions, No use of accessory muscles and clear to auscultation bilaterally EFFORT & INSPECTION: Yes symmetric chest movement AUSCULTATION: clear to auscultation bilaterally Cardio: COMMON NORMALS: regular rate, regular rhythm, S1 normal heart sound present, S2 normal heart sound present, No gallops present (Cardio), No murmurs present (Cardio), No rub (Cardio) and Peripheral pulses 2+ throughout RATE: regular rate RHYTHM: regular rhythm HEART SOUNDS: S1 normal heart sound present and S2 normal heart sound present PERIPHERAL PULSES: Peripheral pulses 2+ throughout GI: COMMON NORMALS: Normal to inspection, nondistended, normoactive bowel sounds present, Soft to palpation, non-tender, No hepatosplenomegaly present and no masses AUSCULTATION: Yes normoactive bowel sounds PALPATION: Yes Soft to palpation and Yes No hepatosplenomegaly present RECTAL EXAM: deferred Extremity: OTHER: 2+ bilateral lower extremity pitting edema present Neuro: COMMON NORMALS: patient oriented x3 Data : 01/05/22 05:52 01/05/22 05:52 Micro: Microbiology 01/04/22 02:21 Blood Culture - Preliminary Blood NEGATIVE TO DATE 01/04/22 02:18 Blood Culture - Preliminary Blood NEGATIVE TO DATE A&P Assessment and plan (1) Breast pain: Status: Acute (2) Chest pain: Status: Acute (3) CKD (chronic kidney disease): Status: Acute (4) Fracture of fibula, left, closed: Status: Acute (5) Acute exacerbation of CHF (congestive heart failure): Status: Acute (6) Cellulitis: Status: Acute Plan #Left breast pain secondary to cellulitis: Status post left breast biopsy: Biopsy result is negative for any malignancy: Findings are consistent with n euroma. Ultrasound left breast: continued skin thickening with increased vascularity and a soft tissue nodule with increased vascularity posterior to the nipple.?Mastitis, cellulitis and neoplastic disease should also be considered. Blood culture:NTD -Continue vancomycin, Rocephin -Pain control. #Decompensated HFpef : Patient is complaining of worsening shortness of breath worsening bilateral lower extremity swelling, elevated proBNP. Continue to monitor intake output charting Fluid restriction:1500 cc k>4, mg >2 Bumex 1 mg every 12 hours Patient will need hospital bed : To maintain elevated head end 30 or more Left radial fracture -Secondary to fall -Has been seen by Dr. Coats, arm is to be to splint -Currently medically managing -Pain control oxycodone Fracture of distal end of fibula -Currently out of splint -PT OT Atrial flutter: Currently heart rate is well controlled Continue carvedilol continue Eliquis Hypertension, continue home meds Insulin-dependent type 2 diabetes mellitus, continue home Levemir, insulin low- dose sliding scale LIZ, noncompliant with CPAP COPD not exacerbation -CODE STATUS : DNR/DNI, Attestations Medical Necessity Statement*: Patient is in hospital for management of decompensated heart failure. Coding Level of Care Code Acute Improvement Analyst for g Fwd Exam Detailed Diagnoses Breast pain N64.4 Chest pain R07.9 CKD (chronic kidney disease) N18.9 Fracture of fibula, left, closed S82.402A Acute exacerbation of CHF (congestive heart failure) I50.9 Cellulitis L03.90
[2022-01-05 12:48] LABS: Glucose Point of Care 415 mg/dL (70-110)
--- NOTE | 2022-01-05 14:32 | PC.NURSE ---
Notified Dr Levine that patient has order for morphine and states she has allergy to it. I looked and it is listed on her allergy list. she said she has taken Benadryl with it in the past but I don't see order for Benadryl.
[2022-01-05 16:54] LABS: Glucose Point of Care 243 mg/dL (70-110)
[2022-01-05] MEDS: bumetanide 0.25 mg/mL SDV 10 mL 1 MG IVP (17:03)
[2022-01-05 21:09] LABS: Glucose Point of Care 192 mg/dL (70-110)
[2022-01-05] MEDS: apixaban 5 mg Tablet PO (21:12)
[2022-01-05] MEDS: fluoxetine 20 mg Capsule 40 MG PO (21:13)
[2022-01-05] MEDS: diphenhydrAMINE 25 mg Capsule PO (21:13)
[2022-01-05] MEDS: nystatin powder 15 gm Btl 1 APPLIC TOPICAL (21:16)
[2022-01-05] MEDS: morphine 4 mg/mL SDV 1 mL 1 MG IVP (21:32)
[2022-01-06] VITALS (12 sets, daily range): BP systolic 157–198; BP diastolic 63–78; PULSE 81–91; RESP 14–20; TEMP 36.6–37.7; O2SAT 94–98
[2022-01-06] MEDS: oxyCODONE 5 mg IR Tab/Cap 2.5 MG PO ×4 (02:17→20:13)
[2022-01-06] MEDS: bumetanide 0.25 mg/mL SDV 10 mL 1 MG IVP ×2 (02:23→15:14)
[2022-01-06] MEDS: cefTRIAXone 1,000 MG in sodium chloride 0.9% (plus) 50 ML 100 MG IV (02:52)
[2022-01-06 03:31] LABS: Basophils # 0.1 10^3/uL (0.0-0.1); Basophils % 1.4 %; Eosinophils # 0.4 10^3/uL (0.0-0.8); Eosinophils % 5.2 %; Hematocrit 34.5 % (37.0-47.0); Hemoglobin 10.4 g/dL (11.5-15.3); Lymphocytes # 1.7 10^3/uL (0.8-4.8); Lymphocytes % 23.3 %; Mean Corpuscular HGB Conc 30.1 g/dL (30.0-36.0); Mean Corpuscular Hemoglobin 28.1 pg (28.0-34.0); Mean Corpuscular Volume 93.2 fl (81-99); Mean Platelet Volume 9.9 fL (7.4-10.4); Monocytes # 0.7 10^3/uL (0.2-0.9); Monocytes % 9.2 %; Neutrophils # 4.43 10^3/uL (1.8-7.7); Neutrophils % 60.5 %; Nucleated Red Blood Cells % 0 %; Platelet Count 243 10^3/cmm (130-400); White Blood Count 7.3 10^3/uL (4.0-10.0)
[2022-01-06 03:54] LABS: Vancomycin Trough 14.3 ug/mL (10-15)
[2022-01-06 03:56] LABS: Anion Gap 13.6 (5-19); Blood Urea Nitrogen 32 mg/dL (8-23); Calcium 9.1 mg/dL (8.5-10.5); Carbon Dioxide 31 mmol/L (22-29); Chloride 99 mmol/L (98-107); Glucose 242 mg/dL (65-115); Osmolality Calculated 303 mOsm/kg (285-295); Potassium 4.6 mmol/L (3.5-5.1); Sodium 139 mmol/L (136-145)
[2022-01-06 03:57] LABS: Magnesium 2.2 mg/dL (1.7-2.3); Phosphorus 5.3 mg/dL (2.5-4.5)
[2022-01-06 04:01] LABS: Creatinine Clr Calc Pharmacy 55.7156
[2022-01-06] MEDS: morphine 4 mg/mL SDV 1 mL 1 MG IVP ×2 (04:01→21:35)
[2022-01-06] MEDS: vancomycin 1,500 MG/300 ML PIGGYBACK 200 MG IV (04:44)
[2022-01-06 06:20] LABS: Glucose Point of Care 287 mg/dL (70-110)
--- NOTE | 2022-01-06 09:30 | PC.PHAR ---
PT STATES SHE AND HER SON DEJAH [phone] TAKE CARE OF HER MEDICATIONS-PT STATES THE PRIMIDONE 50MG BID FILLED ON 12/21/21 30D/S WAS DCED -PTS SON WENT THROUGH THE PTS MEDICATION BOTTLES-NOTES ARE MADE ON THE PHARMACY COMMENTS-PTS SON STATES THE PT NEEDS A NURSE TO COME AND GO THROUGH HER MEDS STATES SHE KEEPS THE OLD ONES AND ITS HARD TO TELL WHAT SHE SHOULD BE TAKING
[2022-01-06] MEDS: hyDRALAzine 10 mg Tablet PO ×3 (10:00→20:14)
[2022-01-06] MEDS: isosorbide mononitrate ER 60 mg Tablet PO (10:00)
[2022-01-06] MEDS: predniSONE 5 mg Tablet 2.5 MG PO (10:01)
[2022-01-06] MEDS: potassium chloride ER 20 mEq Tablet PO (10:01)
[2022-01-06] MEDS: carvedilol 6.25 mg Tablet 3.125 MG PO ×2 (10:01→17:50)
[2022-01-06] MEDS: cholecalciferol (vitamin D3) 5,000 unit Tablet 5000 UNIT PO (10:01)
[2022-01-06] MEDS: insulin lispro 100 unit/1 mL SUBCUT ×3 (10:02→17:51)
[2022-01-06 12:46] LABS: Glucose Point of Care 255 mg/dL (70-110)
--- NOTE | 2022-01-06 15:43 | P.PN_ITS ---
Subjective Subjective: Patient was seen and examined this morning, no significant event overnight, still has some pain in the lt breast as well as arms. Medications: Medication Review Details: Generic Name Dose Route Start Last Admin Trade Name Robertq PRN Reason Stop Dose Admin Acetaminophen 650 mg 01/04/22 01:01 01/04/22 14:07 Acetaminophen 32 5 Mg Tablet PO 650 mg Q6H PRN Administration Mild/Mod Pain Or Temp >/= 101 Apixaban 5 mg 01/04/22 09:00 01/04/22 08:46 Apixaban 5 Mg Ta blet PO Not Given BID@0900,2100 HERMINIO Bumetanide 1 mg 01/04/22 02:00 01/04/22 14:08 Bumetanide 0.25 Mg/Ml Sdv 4 Ml IVP 1 mg Q12H HERMINIO Administration Carvedilol 3.125 mg 01/04/22 09:00 01/04/22 08:39 Carvedilol 6.25 Mg Tablet PO 3.125 mg BID HERMINIO Administration Hydralazine HCl 10 mg 01/04/22 09:00 01/04/22 14:08 Hydralazine 10 M g Tablet PO 10 mg TID HERMINIO Administration Hydroxyzine Pamoat e 25 mg 01/04/22 01:01 01/04/22 02:24 Hydroxyzine 25 M g Capsule PO 25 mg BID PRN Administration anxiety Ceftriaxone Sodium 1,000 mg/ 50 mls @ 100 mls/ hr 01/04/22 02:00 01/04/22 03:01 Sodium Chloride IV Infused Q24H HERMINIO Infusion Protocol Vancomycin/PEG/NAD A/Lysine/Water 1,500 mg in 300 m ls @ 200 mls/hr 01/04/22 04:00 01/04/22 06:05 Vancocin IV Infused Q24H HERMINIO Infusion Insulin Detemir 100 unit 01/04/22 09:00 01/04/22 08:47 Insulin Detemir 100 Units/1 Ml SUBCUT 100 unit DAILY HERMINIO Administration Insulin Human Lisp ro 0 unit 01/04/22 08:00 01/04/22 12:18 Insulin Lispro 1 00 Unit/1 Ml SUBCUT 6 unit TIDWM HERMINIO Administration Protocol Isosorbide Mononit rate 60 mg 01/04/22 09:00 01/04/22 08:41 Isosorbide [place] itrate Er 60 Mg Ta blet PO 60 mg DAILY HERMINIO Administration Methocarbamol 500 mg 01/04/22 01:01 01/04/22 15:30 Methocarbamol 50 0 Mg Tablet PO 500 mg TID PRN Administration Muscle Spasm Nystatin 1 applic 01/04/22 09:00 01/04/22 14:31 Nystatin Powder 15 Gm Btl TOPICAL Not Given TID HERMINIO Ondansetron HCl 4 mg 01/04/22 01:01 01/04/22 02:23 Ondansetron 2 Mg /Ml Sdv 2 Ml IVP 4 mg Q8H PRN Administration vomiting, or N/V if npo Oxycodone HCl 2.5 mg 01/04/22 01:01 01/04/22 13:26 Oxycodone 5 Mg I r Tab/Cap PO 2.5 mg Q4H PRN Administration pain Pantoprazole Sodiu m 40 mg 01/04/22 09:00 01/04/22 08:[address] 40 Mg Tablet PO Not Given DAILY HERMINIO Potassium Chloride 20 meq 01/04/22 09:00 01/04/22 08:40 Potassium Chlori de Er 20 Meq Table t PO 20 meq DAILY HERMINIO Administration Prednisone 2.5 mg 01/04/22 09:00 01/04/22 08:41 Prednisone 5 Mg Tablet PO 2.5 mg DAILY HERMINIO Administration Vitamin D 5,000 unit 01/04/22 09:00 01/04/22 08:40 Cholecalciferol (Vitamin D3) 5,000 Unit Tablet PO 5,000 unit DAILY HERMINIO Administration Vitals/I&O/Wt Last Vital Signs Temp 98.0 F 01/06/22 04:00 Pulse 91 01/06/22 12:00 Resp 18 01/06/22 15:13 BP 170/68 01/06/22 12:00 Pulse Ox 94 01/06/22 15:13 01/06/22 01/06/22 01/06/22 06:59 14:59 22:59 Intake Total 350 / 1190 900 / 900 Output Total 1200 / 2200 Balance -850 / -1010 900 / 900 Weight last 48 hrs Weight 156.625 kg Physical Exam 2 Const: COMMON NORMALS: patient oriented x3 HENMT: COMMON NORMALS: normocephalic, atraumatic, hearing grossly normal bilaterally and external ears normal HEAD & SCALP: normocephalic and atraumatic EXTERNAL EAR: Yes external ears normal Eye: COMMON NORMALS: no scleral icterus GENERAL EYE: appearance normal, both eyes and all related structures Chest: COMMONS NORMALS: normal inspection of the chest and normal palpation of entire chest wall CHEST: Yes Symmetrical chest wall rise OTHER: Left breast erythema swelling and tenderness present Resp: COMMON NORMALS: normal respiratory effort, No retractions, No use of accessory muscles and clear to auscultation bilaterally EFFORT & INSPECTION: Yes symmetric chest movement AUSCULTATION: clear to auscultation bilaterally Cardio: COMMON NORMALS: regular rate, regular rhythm, S1 normal heart sound present, S2 normal heart sound present, No gallops present (Cardio), No murmurs present (Cardio), No rub (Cardio) and Peripheral pulses 2+ throughout RATE: regular rate RHYTHM: regular rhythm HEART SOUNDS: S1 normal heart sound present and S2 normal heart sound present PERIPHERAL PULSES: Peripheral pulses 2+ throughout GI: COMMON NORMALS: Normal to inspection, nondistended, normoactive bowel sounds present, Soft to palpation, non-tender, No hepatosplenomegaly present and no masses AUSCULTATION: Yes normoactive bowel sounds PALPATION: Yes Soft to palpation and Yes No hepatosplenomegaly present RECTAL EXAM: deferred Extremity: OTHER: 2+ bilateral lower extremity pitting edema present Neuro: COMMON NORMALS: patient oriented x3 Data : 01/06/22 03:12 01/06/22 03:12 A&P Assessment and plan (1) Breast pain: Status: Acute (2) Chest pain: Status: Acute (3) CKD (chronic kidney disease): Status: Acute (4) Fracture of fibula, left, closed: Status: Acute (5) Acute exacerbation of CHF (congestive heart failure): Status: Acute (6) Cellulitis: Status: Acute Plan #Left breast pain secondary to cellulitis: Status post left breast biopsy: Biopsy result is negative for any malignancy: Findings are consistent with n euroma. Ultrasound left breast: continued skin thickening with increased vascularity and a soft tissue nodule with increased vascularity posterior to the nipple.?Mastitis, cellulitis Blood culture:NTD -Continue Rocephin -She was on Vancomycin. which was discontinued on 01/06. -Pain control. #Decompensated HFpef : Patient is complaining of worsening shortness of breath worsening bilateral lower extremity swelling, elevated proBNP. Continue to monitor intake output charting Fluid restriction:1500 cc k>4, mg >2 Bumex 1 mg every 12 hours Patient will need hospital bed : To maintain elevated head end 30 or more Left radial fracture -Secondary to fall -Has been seen by Dr. Coats, arm is to be to splint -Currently medically managing -Pain control oxycodone Fracture of distal end of fibula -Currently out of splint -PT OT Atrial flutter: Currently heart rate is well controlled Continue carvedilol continue Eliquis Hypertension, continue home meds Insulin-dependent type 2 diabetes mellitus, continue home Levemir, insulin low- dose sliding scale LIZ, noncompliant with CPAP COPD not exacerbation -CODE STATUS : DNR/DNI, Attestations Medical Necessity Statement*: Patient is to be [facility] of decompe nsated heart failu re, left breast ce llulitis. Coding Level of Care Code Acute Director Of Anesthesia Services for [facility] Fwd Diagnoses Breast pain N64.4 Chest pain R07.9 CKD (chronic kidney disease) N18.9 Fracture of fibula, left, closed S82.402A Acute exacerbation of CHF (congestive heart failure) I50.9 Cellulitis L03.90
--- NOTE | 2022-01-06 15:59 | PC.NURSE ---
Notified Dr Levine that patient stated she was supposed to have an order for hydrocortisone cream and a heat pack. I don't see an order for either so just checking with you. Per Dr Levine, K pad only. policy writer sales put order in for K pad.
[2022-01-06 17:20] LABS: Glucose Point of Care 231 mg/dL (70-110)
[2022-01-06] MEDS: fluoxetine 20 mg Capsule 40 MG PO (20:14)
[2022-01-06] MEDS: apixaban 5 mg Tablet PO (20:14)
[2022-01-06] MEDS: diphenhydrAMINE 25 mg Capsule PO (21:41)
[2022-01-07] VITALS (9 sets, daily range): BP systolic 169–219; BP diastolic 72–76; PULSE 85–94; RESP 14–20; TEMP 36.5–36.9; O2SAT 95–98
[2022-01-07] MEDS: cefTRIAXone 1,000 MG in sodium chloride 0.9% (plus) 50 ML 100 MG IV (02:35)
[2022-01-07] MEDS: bumetanide 0.25 mg/mL SDV 10 mL 1 MG IVP (03:35)
[2022-01-07] MEDS: oxyCODONE 5 mg IR Tab/Cap 2.5 MG PO ×2 (05:04→11:42)
[2022-01-07 05:58] LABS: Basophils # 0.1 10^3/uL (0.0-0.1); Basophils % 1.1 %; Eosinophils # 0.4 10^3/uL (0.0-0.8); Eosinophils % 5.7 %; Hematocrit 34.3 % (37.0-47.0); Hemoglobin 10.5 g/dL (11.5-15.3); Lymphocytes # 1.6 10^3/uL (0.8-4.8); Lymphocytes % 25.8 %; Mean Corpuscular HGB Conc 30.6 g/dL (30.0-36.0); Mean Corpuscular Hemoglobin 28.1 pg (28.0-34.0); Mean Corpuscular Volume 91.7 fl (81-99); Mean Platelet Volume 9.9 fL (7.4-10.4); Monocytes # 0.6 10^3/uL (0.2-0.9); Monocytes % 9.6 %; Neutrophils # 3.54 10^3/uL (1.8-7.7); Neutrophils % 57.5 %; Nucleated Red Blood Cells % 0 %; Platelet Count 242 10^3/cmm (130-400); Red Blood Count 3.74 10^6/uL (4.1-5.3); Red Cell Distribution Width 13.8 % (12.1-15.1); White Blood Count 6.2 10^3/uL (4.0-10.0)
[2022-01-07 06:20] LABS: Anion Gap 15.3 (5-19); Blood Urea Nitrogen 32 mg/dL (8-23); Calcium 9.8 mg/dL (8.5-10.5); Carbon Dioxide 29 mmol/L (22-29); Chloride 98 mmol/L (98-107); Glomerular Filtration Rate 37.9 mL/min (90-130); Glucose 233 mg/dL (65-115); Osmolality Calculated 300 mOsm/kg (285-295); Potassium 4.3 mmol/L (3.5-5.1); Sodium 138 mmol/L (136-145)
[2022-01-07 06:24] LABS: Glucose Point of Care 228 mg/dL (70-110)
[2022-01-07 06:24] LABS: Creatinine Clr Calc Pharmacy 62.2416
[2022-01-07] MEDS: hyDRALAzine 10 mg Tablet PO (08:11)
[2022-01-07] MEDS: cholecalciferol (vitamin D3) 5,000 unit Tablet 5000 UNIT PO (08:12)
[2022-01-07] MEDS: carvedilol 6.25 mg Tablet 3.125 MG PO (08:13)
[2022-01-07] MEDS: apixaban 5 mg Tablet PO (08:13)
[2022-01-07] MEDS: isosorbide mononitrate ER 60 mg Tablet PO (08:13)
[2022-01-07] MEDS: pantoprazole DR 40 mg Tablet PO (08:13)
[2022-01-07] MEDS: predniSONE 5 mg Tablet 2.5 MG PO (08:13)
[2022-01-07] MEDS: potassium chloride ER 20 mEq Tablet PO (08:13)
[2022-01-07] MEDS: nystatin powder 15 gm Btl 1 APPLIC TOPICAL (08:13)
[2022-01-07] MEDS: insulin lispro 100 unit/1 mL SUBCUT (08:14)
--- NOTE | 2022-01-07 09:22 | PC.CHAP ---
Pastoral Care Encounter/Spiritual Assessment Type of Contact [] Declined tableau analyst visit [] Patient/Family/Request visit [] Outpatient visit [] Follow-up visit [] Physician referral [] Code/Alert [x] Routine visit [] Staff referral [] Actively dying [] Patient sleeping [] Family support [] [] Out of room [] Palliative care [] [] Receiving care in room [] Pre-surgical visit [] Trauma [] Long length of stay [] ICU visit [] Other: Relational/Emotional Strength [x] Patient feels connected with others/family/visitors/staff [] Distress [] Loneliness/isolation [] Abandonment Spirituality of Patient [x] Person of Basia [] Attends Anabaptism of their Basia [x] Believes in Prayer [] Reads Bible or Scientologist materials [] There are Spiritual issues to be addressed Parts Administrator Interventions [x] Prayer [x] Active listening [x] Non-anxious presence [] Spiritual/emotional support [] Crisis/trauma care [] Spiritual counseling [] Bereavement support [] Provided bereavement packet [] Provided Bible/devotional materials [] Provided toy/stuffed animal, coloring book to patient or family member [] Provided Communion [] Anointing/[place] [] Salvation [x] Completed spiritual assessment [] Other: Impact on Illness or Injury [] Angry [] Fearful [] Anxious [] Often cries [] Exhaustion [] Unable to work [] Unable to attend moravian [] Unable to walk/stand [] Unable to read [] Unable to drive [] Unable to eat/drink [] Unable to sleep [] Unable to be with family [] Patient intubated [] Other: Summary Time spent with patient 15 min
[2022-01-07] MEDS: morphine 4 mg/mL SDV 1 mL 1 MG IVP (09:53)
[2022-01-07] MEDS: diphenhydrAMINE 25 mg Capsule PO (09:53)
--- NOTE | 2022-01-07 12:45 | P.DS_ITS ---
Discharge Providers Date of Admission: 01/04/22 01:01 Date of Discharge: January 07, 2022 Attending Provider at Admission: Oswaldo Scott MD Attending Provider at Discharge: Greg Levine MD Primary Care Provider: PARAG Mensah Diagnoses at Discharge Discharge Diagnosis (1) Breast pain: Status: Acute (2) Chest pain: Status: Inactive (3) CKD (chronic kidney disease): Status: Acute (4) Fracture of fibula, left, closed: Status: Acute (5) Acute exacerbation of CHF (congestive heart failure): Status: Acute (6) Cellulitis: Status: Inactive Reason for Visit Reason for Visit: CHEST PRESSURE Hospital Course Hospital Course 66-year-old female with history of CHF, atrial flutter, CKD, COPD, coronary artery fistula, diabetes who presents the emergency room with complaints of sudden onset of left-sided chest pain tonight.On admission Patient reports the chest pain is intermittent pressure-like occasionally sharp.? Of note, patient has had multiple episodes of recurrent falls.? Most recently, on 12/27, patient has had closed radial head fracture.? Patient tells me that she has difficulty getting out of bed and performing her daily activity given the swelling in her legs as well as the recurrence of fall.Patient has home nursing, however gets home nursing for 3 hours out of the day.Patient tells me that she recently underwent left side of breast biopsy to determine whether she has cancer.?Biopsy was performed last week.?Patient developed sudden onset of chest pain tonight.?Patient reports that her chest pain is deeper than her breast. Patient also complained of R lower extremity pain and bruises from recent fall. She was admitted for the management of #Left breast pain secondary to cellulitis: Status post left breast biopsy: Biopsy result is negative for any malignancy: Findings are consistent with neuroma. Follow up blood culture: Negative Ultrasound left breast:?continued skin thickening with increased vascularity and a soft tissue nodule with increased vascularity posterior to the nipple.?Mastitis, cellulitis. SHe was continued on broad-spectrum antibiotic pain management, to which she responded well to, cellulitis of left breast was improving at the time of discharge, she will continue to follow surgery as well as primary care physician as an outpatient for that. For her decompensated HFpef : Patient was continued on IV diuresis, to which she responded well, she was continued on p.o. Bumex as an outpatient. Left radial fracture -Secondary to fall -Has been seen by Dr. Coats, arm is to be to splint.-Currently medically managing.-Pain control. Fracture of distal end of fibula:Same as above. Atrial flutter: Currently heart rate was well controlled Carvedilol was continued.Continue Eliquis fpr Ac. Insulin-dependent type 2 di abetes mellitus, continue home Levemir, insulin low-dose sliding scale. LIZ, continue with CPAP, COPD not exacerbation, she was continued on nebs. Patient responded well to above medical management and was discharged home in stable condition.Continue to follow-up with primary care physician as well as surgery as an outpatient. Physical Exam Const: COMMON NORMALS: patient oriented x3 HENMT: COMMON NORMALS: normocephalic, atraumatic, hearing grossly normal bilaterally and external ears normal HEAD & SCALP: normocephalic and atraumatic EXTERNAL EAR: Yes external ears normal Eye: COMMON NORMALS: no scleral icterus GENERAL EYE: appearance normal, both eyes and all related structures Chest: COMMONS NORMALS: normal inspection of the chest and normal palpation of entire chest wall CHEST: Yes Symmetrical chest wall rise OTHER: Left breast erythema and swelling:Improving Resp: COMMON NORMALS: normal respiratory effort, No retractions, No use of accessory muscles and clear to auscultation bilaterally EFFORT & INSPECTION: Yes symmetric chest movement AUSCULTATION: clear to auscultation bilaterally Cardio: COMMON NORMALS: regular rate, regular rhythm, S1 normal heart sound present, S2 normal heart sound present, No gallops present (Cardio), No murmurs present (Cardio), No rub (Cardio) and Peripheral pulses 2+ throughout RATE: regular rate RHYTHM: regular rhythm HEART SOUNDS: S1 normal heart sound present and S2 normal heart sound present PERIPHERAL PULSES: Peripheral pulses 2+ throughout GI: COMMON NORMALS: Normal to inspection, nondistended, normoactive bowel sounds present, Soft to palpation, non-tender, No hepatosplenomegaly present and no masses AUSCULTATION: Yes normoactive bowel sounds PALPATION: Yes Soft to palpation and Yes No hepatosplenomegaly present RECTAL EXAM: deferred Extremity: OTHER: 2+ bilateral lower extremity pitting edema present Neuro: COMMON NORMALS: patient oriented x3 Discharge Data Studies Completed and Pending Completed Studies During Hospitalization Category Date Time Status XR ankle RT 2V 11504 Urgent Exams 01/03/22 19:55 Completed XR chest 1V portable [id number] Urgent Exams 01/03/22 19:33 Completed XR foot RT 2V [id number] Urgent Exams 01/03/22 19:55 Completed XR tibia fibula RT 2V [id number] Urgent Exams 01/03/22 19:55 Completed US breast LT complete 00013 Routine Ultrasound 01/04/22 13:30 Completed Pending at discharge Category Date Time Status Blood Culture Routine Lab 01/04/22 02:21 Results Radiology Impressions Chest X-Ray 01/03/22 19:33 IMPRESSION: 1. No acute cardiopulmonary process. 2. Incidental/nonacute findings are listed in the report. Ankle X-Ray 01/03/22 19:55 IMPRESSION: 1. No acute fracture. Followup imaging recommended in 7-14 days if clinical concern for fracture persists. 2. Mild soft tissue swelling dorsal to the metatarsals. 3. Incidental/nonacute findings are listed in the report. Foot X-Ray 01/03/22 19:55 IMPRESSION: 1. No acute fracture. Followup imaging recommended in 7-14 days if clinical concern for fracture persists. 2. Mild soft tissue swelling dorsal to the metatarsals. 3. Incidental/nonacute findings are listed in the report. Tibia/Fibula X-Ray 01/03/22 19:55 IMPRESSION: 1. No acute fracture. Followup imaging recommended in 7-14 days if clinical concern for fracture persists. 2. Incidental/nonacute findings are listed in the report. Breast Ultrasound 01/04/22 13:30 IMPRESSION: BI-RADS: 4-Suspicious Finding-Biopsy Should Be Considered FOLLOW-UP: See Report 1. There is continued skin thickening with increased vascularity and a soft tissue nodule with increased vascularity posterior to the nipple. These findings were described on 12/04/2021 without significant improvement or progression. If skin biopsy has not been performed biopsy should be obtained. Additional biopsy of the low-attenuation mass with increased vascularity posterior to the nipple may also be necessary. Mastitis, cellulitis and neoplastic disease should also be considered. Laboratory Results WBC 6.2 10^3/uL (4.0-10.0) 01/07/22 05:44 RBC 3.74 10^6/uL (4.1-5.3) L 01/07/22 05:44 Hgb 10.5 g/dL (11.5-15.3) L 01/07/22 05:44 Hct 34.3 % (37.0-47.0) L 01/07/22 05:44 MCV 91.7 fl (81-99) 01/07/22 05:44 MCH 28.1 pg (28.0-34.0) 01/07/22 05:44 MCHC 30.6 g/dL (30.0-36.0) 01/07/22 05:44 RDW 13.8 % (12.1-15.1) 01/07/22 05:44 Plt Count 242 10^3/cmm (130-400) 01/07/22 05:44 MPV 9.9 fL (7.4-10.4) 01/07/22 05:44 Neut % (Auto) 57.5 % 01/07/22 05:44 Lymph % (Auto) 25.8 % 01/07/22 05:44 Manati % (Auto) 9.6 % 01/07/22 05:44 Eos % (Auto) 5.7 % 01/07/22 05:44 Baso % (Auto) 1.1 % 01/07/22 05:44 Neut # (Auto) 3.54 10^3/uL (1.8-7.7) 01/07/22 05:44 Lymph # (Auto) 1.6 10^3/uL (0.8-4.8) 01/07/22 05:44 [place] # (Auto) 0.6 10^3/uL (0.2-0.9) 01/07/22 05:44 Eos # (Auto) 0.4 10^3/uL (0.0-0.8) 01/07/22 05:44 Baso # (Auto) 0.1 10^3/uL (0.0-0.1) 01/07/22 05:44 Nucleated RBC % (auto) 0 % 01/07/22 05:44 Nucleated RBCs # 0.0 /100WBC 01/07/22 05:44 Sodium 138 mmol/L (136-145) 01/07/22 05:44 Potassium 4.3 mmol/L (3.5-5.1) 01/07/22 05:44 Chloride 98 mmol/L (98-107) 01/07/22 05:44 Carbon Dioxide 29 mmol/L (22-29) 01/07/22 05:44 Anion Gap 15.3 (5-19) 01/07/22 05:44 BUN 32 mg/dL (8-23) H 01/07/22 05:44 Creatinine 1.4 mg/dL (0.5-0.9) H 01/07/22 05:44 GFR Calculation 37.9 mL/min (90-130) L 01/07/22 05:44 Glucose 233 mg/dL (65-115) H 01/07/22 05:44 POC Glucose 228 mg/dL (70-110) H 01/07/22 06:13 Calculated Osmolality 300 mOsm/kg (285-295) H 01/07/22 05:44 Calcium 9.8 mg/dL (8.5-10.5) 01/07/22 05:44 Phosphorus 5.3 mg/dL (2.5-4.5) H 01/06/22 03:12 Magnesium 2.2 mg/dL (1.7-2.3) 01/06/22 03:12 Total Bilirubin 0.2 mg/dL (0.15-1.2) 01/04/22 02:18 AST 13 U/L (0-32) 01/04/22 02:18 ALT 19 U/L (0-33) 01/04/22 02:18 Alkaline Phosphatase 82 IU/L (35-105) 01/04/22 02:18 Troponin T Baseline 29 ng/L (0-10) H 01/03/22 20:17 Troponin T 120 Minute 28.97 ng/L (0-10) H 01/03/22 22:15 Delta Troponin T -0.03 ABS# (0-10) L 01/03/22 22:15 Troponin T Hi Sens 6Hr 30.62 ng/L (0-10) H 01/04/22 02:18 Troponin T Hi Sens 6Hr Delta 1.62 ng/L (0-12) 01/04/22 02:18 C-Reactive Protein 27.6 mg/L (0.0-4.9) H 01/03/22 20:17 NT-Pro-B Natriuret Pep 1514 pg/mL (0-125) H 01/04/22 02:18 Total Protein 6.5 g/dL (6.6-8.7) L 01/04/22 02:18 Albumin 3.3 g/dL (3.5-5.2) L 01/04/22 02:18 Globulin 3.2 g/dL (1.3-4.6) 01/04/22 02:18 Procalcitonin 0.12 ng/mL (0-0.5) 01/04/22 02:18 TSH 1.59 uIU/mL (0.27-4.20) 01/04/22 02:18 Vancomycin Trough 14.3 ug/mL (10-15) 01/06/22 03:12 Vitals Last Vital Signs Temp 98.1 F 01/07/22 08:00 Pulse 85 01/07/22 08:00 Resp 18 01/07/22 11:42 BP 169/72 01/07/22 08:00 Pulse Ox 95 01/07/22 11:42 Discharge Plan Discharge Patient Disposition: Home Condition: Stable Prescriptions: New bumetanide 2 mg tablet 2 mg PO BID Qty: 60 3RF Continued (DME) pen needle, diabetic [TechLITE Pen Needle] 31 gauge x 5/16 needle See Rx Instructions .ROUTE .MEDSUPPLY Qty: 1,200 0RF Rx Instructions: As directed nitroglycerin [Nitrostat] 0.4 mg tablet, sublingual 0.4 mg SUBLINGUAL Q5M PRN (Reason: Chest Pain) 0RF (DME) blood-glucose meter [Blood Glucose Monitoring] Kit See Rx Instructions .ROUTE .MEDSUPPLY Qty: 1 0RF Rx Instructions: As directed, May substitute for any brand dicyclomine 20 mg tablet See Rx Instructions PO TID PRN (Reason: IBS symptoms prn) Qty: 60 3RF Rx Instructions: take 1 tab TID for IBS prn albuterol sulfate [ProAir HFA] 90 mcg/actuation HFA aerosol inhaler 2 puff INHALATION Q4H PRN (Reason: shortness of breath or wheezing) Qty: 8.5 2RF Eliquis 5 mg tablet 5 mg PO BID@0900,2100 Qty: 60 2RF fluoxetine 40 mg capsule 40 mg PO DAILY@2100 Qty: 30 2RF methocarbamol 500 mg tablet 500 mg PO TID PRN (Reason: Muscle Spasm) Qty: 90 2RF potassium chloride 20 mEq tablet extended release 20 meq PO DAILY Qty: 90 3RF (DME) compression socks, medium Misc See Rx Instructions .Route Qty: 2 0RF Rx Instructions: As directed clindamycin phosphate 1 % lotion See Rx Instructions .ROUTE .COMPLEX Qty: 60 1RF Dose Instruction: APPLY TOPICALLY TWICE DAILY NEEDED FOR SKIN IRRITATION Rx Instructions: APPLY TOPICALLY TWICE DAILY NEEDED FOR SKIN IRRITATION triamcinolone acetonide 0.1 % ointment 1 applic TOPICAL DAILY PRN (Reason: itching) Qty: 30 0RF cholecalciferol (vitamin D3) [Vitamin D3] 125 mcg (5,000 unit) Tablet 125 mcg PO DAILY 0RF insulin aspart U-100 [Novolog Flexpen U-100 Insulin] 100 unit/mL (3 mL) insulin pen See Rx Instructions .ROUTE .COMPLEX 0RF Rx Instructions: SLIDING SCALE TID WITH MEALS carvedilol 12.5 mg tablet 12.5 mg PO BID 0RF hydroxychloroquine 200 mg tablet 200 mg PO QAM 0RF hydroxyzine pamoate 25 mg capsule 50 mg PO BEDTIME PRN (Reason: Anxiety) 0RF Roxicodone 5 mg Tablet 2.5 mg PO BID PRN (Reason: Pain) 0RF Levemir FlexTouch U-100 Insuln 100 unit/mL (3 mL) insulin pen 125 unit SUBCUT QAM 0RF prednisone 5 mg tablet 5 mg PO DAILY 0RF acetaminophen 325 mg tablet 325 mg PO Q6H PRN (Reason: Pain) 0RF isosorbide mononitrate 60 mg tablet extended release 24 hr 60 mg PO DAILY 0RF pantoprazole 40 mg tablet,delayed release (DR/EC) 40 mg PO DAILY 0RF Discontinued furosemide 80 mg Tablet 80 mg PO DAILY 0RF No Action (DME) wheelchair cushions See Rx Instructions .Route .MEDSUPPLY Qty: 1 0RF Rx Instructions: As directed (DME) Bariatric emy lift See Rx Instructions .Route .MEDSUPPLY Qty: 1 0RF Rx Instructions: BMI 57.5% weight 325# hydralazine 50 mg tablet 25 mg PO BID Qty: 100 3RF metoprolol tartrate 50 mg tablet 50 mg PO Q12H Qty: 180 3RF Discharge Orders: Discharge Order (Routine); Ordered 01/07/22 Ordered By: Greg Levine Other Ambulatory Orders: DME: Hospital Bed (Order) Location: None Selected Ordered By: Greg Levine DME: Walker (Order) Location: None Selected Ordered By: Greg Levine Referrals: Lorenzo Muller FNP-C [Primary Care Provider] - 01/12/22 10:00 am (You have an appointment with Lorenzo Muller on January 12 at 10:00.) Discharge Activity: Increase activity as tolerated Patient Instructions: Bumetanide (By mouth) (Bumex), Doxycycline (By mouth) (Ac ticlate, Adoxa, Avidoxy, Monodox, Doryx), Levofloxacin (By mouth) (Levaquin, Levaquin Leva-frankie), Cellulitis (ED), CHF Stoplight, Chest Pain Stoplight, Opioid Safety Discharge Attestations Time Spent in Discharge Care*: greater than 30 min Specific Discharge Activities: educating patient, educating and/or supporting family/caregiver, discussing with pcp/other providers, discussing with lining caser/social workers/dc planners, documenting/other paperwork and evaluating patient/reviewing data Status at Discharge: Cognitive status at discharge: cognitively intact , Behavioral status at discharge: cooperative , Overall status at discharge: patient is back to baseline Quality Metrics Clinical Quality Measures [ No reported AMI, CVA or VTE this stay] Coding Level of Care Code Acute Chg FW DC note Exam Detailed Diagnoses Breast pain N64.4 Chest pain R07.9 CKD (chronic kidney disease) N18.9 Fracture of fibula, left, closed S82.402A Acute exacerbation of CHF (congestive heart failure) I50.9 Cellulitis L03.90
== END 2022-01-07 13:56 | disposition home or self-care (01) | DRG 291 ==
LOC: ER 23:00 → MEDSURG 01-04 00:02
PROVIDERS: Admitting Provider Family Medicine; Emergency Provider Emergency Medicine; PCP Nurse Practitioner; Visit Provider Internal Medicine
DX: I13.0 Hypertensive heart and chronic kidney disease with heart failure and stage 1 through stage 4 chronic kidney disease, or unspecified chronic kidney disease (principal); I50.33 Acute on chronic diastolic (congestive) heart failure; I48.92 Unspecified atrial flutter; N61.0 Mastitis without abscess; E11.22 Type 2 diabetes mellitus with diabetic chronic kidney disease; N18.9 Chronic kidney disease, unspecified; D36.14 Benign neoplasm of peripheral nerves and autonomic nervous system of thorax; R29.6 Repeated falls; S52.121D Displaced fracture of head of right radius, subsequent encounter for closed fracture with routine healing; W19.XXXD Unspecified fall, subsequent encounter; M79.604 Pain in right leg; J44.9 Chronic obstructive pulmonary disease, unspecified; G47.33 Obstructive sleep apnea (adult) (pediatric); Z79.4 Long term (current) use of insulin; Z87.891 Personal history of nicotine dependence; Z66 Do not resuscitate; Z91.19 Patient's noncompliance with other medical treatment and regimen; Z79.01 Long term (current) use of anticoagulants
CPT/HCPCS: 36415; 36416; 71045; 73590; 73600; 73620; 76641; 80048; 80053; 80202; 82962; 83735; 83880; 84100; 84145; 84443; 84484; 85025; 86140; 87040; 93005; 94664; 96372; 97110; 97161; 97166; 97530; 97535; 99285; J0696; J1815; J2270; J2405; J3370; J3490; J7512

== ENCOUNTER → 2022-01-25 08:30 | Outpatient (BNVA) | payer MEDICAID, SELFPAY | PROVIDERS: PCP Nurse Practitioner; Visit Provider Specialist | DX: S52.122A Displaced fracture of head of left radius, initial encounter for closed fracture (principal); M25.532 Pain in left wrist; X58.XXXA Exposure to other specified factors, initial encounter | CPT/HCPCS: 73080; 73110 ==

== ENCOUNTER 2022-02-18 14:11 | Outpatient (CLI) | payer MEDICAID, SELFPAY ==
--- NOTE | 2022-02-18 14:21 | USCV_ITS ---
Monse Novakorah Age: 66 Gender: F : 1955 Exam Date: 02/18/2022 14:29 Ordering Phys: Lorenzo Muller Technologist: [place] [facility] [place]: [place] arm pain and swelling PROCEDURES: Venous duplex imaging was performed in only the left upper extremity. The following venous structures were evaluated: internal jugular vein, subclavian vein, axillary vein, and brachial veins. In addition, the basilic vein, cephalic vein, radial vein, and ulnar vein. FINDINGS: The veins of the left upper extremity are readily compressible with normal venous flow dynamics including spontaneous flow, respiratory phasic variation and augmentation. CONCLUSIONS No evidence of venous thrombosis in the above-mentioned veins Dr Sammy Aquino MD [facility] (Electronically Signed) Final Date: 19 February 2022 10:44 S
== END 2022-02-18 14:12 | disposition home or self-care (01) ==
PROVIDERS: PCP Nurse Practitioner; Visit Provider Nurse Practitioner
DX: M79.602 Pain in left arm (principal); R60.0 Localized edema
CPT/HCPCS: 93971

== ENCOUNTER → 2022-02-24 13:00 | Outpatient (BNVA) | payer MEDICAID, SELFPAY | PROVIDERS: PCP Nurse Practitioner; Visit Provider Nurse Practitioner | DX: Z87.81 Personal history of (healed) traumatic fracture (principal) | CPT/HCPCS: 73080 ==

== ENCOUNTER → 2022-03-29 12:39 | Outpatient (BNVA) | payer MEDICARE, MEDICAID, SELFPAY | PROVIDERS: PCP Family Medicine; Visit Provider Family Medicine | DX: M50.30 Other cervical disc degeneration, unspecified cervical region (principal); M54.9 Dorsalgia, unspecified; K58.9 Irritable bowel syndrome, unspecified | CPT/HCPCS: 81003 ==

== ENCOUNTER 2022-04-12 08:37 | Emergency (ER) | payer MEDICARE, MEDICAID, SELFPAY ==
[2022-04-12 08:46] VITALS: BP 193/76; PULSE 89; RESP 18; TEMP 36.4; O2SAT 97; BMI 53.1
--- NOTE | 2022-04-12 09:05 | XR_ITS ---
WS: [id number] Exam: XR chest 1V portable [id number] Date/Time of Exam: 04/12/2022 9:07 AM Reason For Exam: CHF Comparison 01/03/2022. The lungs are fully expanded and clear. No pneumothorax. No pleural effusion. Cardiomediastinal silho uette is unremarkable for technique. Bony structures are intact. XR/XR chest 1V portable [id number] IMPRESSION: 1. No acute cardiopulmonary finding.
--- NOTE | 2022-04-12 09:05 | USCV_ITS ---
Jennifer Novak Age: 66 Gender: F : 1955 Exam Date: 04/12/2022 10:47 Ordering Phys: Lavinia Chan Technologist: Cameron Aly [place] [facility] [place]: lt arm pain and swelling PROCEDURES: Venous duplex imaging was performed in only the left upper extremity. The following venous structures were evaluated: internal jugular vein, subclavian vein, axillary vein, and brachial veins. In addition, the basilic vein, cephalic vein, radial vein, and ulnar vein. FINDINGS: No evidence of deep vein thrombosis or superficial thrombophlebitis in the left upper extremity. CONCLUSIONS No evidence for left upper extremity deep venous thrombosis. Dr. Tram Nino DO (Electronically Signed) Final Date: 12 Apr 2022 11:27 S
--- NOTE | 2022-04-12 09:07 | ED_ITS ---
HPI - General Adult General: Chief complaint: Abdominal Pain Stated complaint: fever/vomiting/nausea/back,arm & leg pain/bloating Time Seen by Provider: 04/12/22 08:40 Source: patient and family (son) Mode of arrival: wheelchair Limitations: no limitations History of Present Illness: Patient is a 66-year-old female presents to ED today with her son for multiple medical complaints. Patient has a plethora of PMH issues including lymphedema, uncontrolled HTN, IBS, previous CVA, chronic back pain, major depressive disorder, peripheral neuropathy, DM2, CHF, polyarthralgia, fibromyalgia, obstructive sleep apnea, COPD requiring oxygen, factor V on anticoagulation, CKD, and morbid obesity with a BMI of over 53. Patient has complaints today of left-sided back pain with radiation down into her left lower extremity. She believes this could be secondary to her kidney. Patient states she had a UA performed on 03/29 and placed on Macrobid. UA reviewed and this was negative for nitrites, leuks, and WBCs. No culture performed. Patient does have chronic back pain. She also tells me she feels fluid overloaded . She feels like her abdomen is distended and states she has been gaining weight. Patient states she takes Lasix daily but her current med list reports Bumex. She states she has been taking her medications regularly except for today. She states yesterday she began feeling nauseous and had a few episodes of vomiting. She states this morning she had multiple episodes of watery emesis. She is reporting subjective fevers. No diarrhea. She also has a complaint of left arm pain and swelling. Patient states she fractured her left arm 2 months ago. She has had orthopedic follow-up and was told her fracture was/has healed appropriately. Associated symptoms: Reports dyspnea (chronic-at baseline), nausea and vomiting; Deny chest pain, headache(s), malaise, rash, palpitations or syncope Review of Systems Const: Reports: fever(s) (subjective); Denies: chills, body aches, fatigue or malaise Eyes: Denies: change in vision or blurry vision Card: Reports: edema (chronic), swelling of feet/ankles (chronic) and orthopnea (chronic); Denies: chest pain, palpitations, irregular heart rhythm, lightheadedness, s yncope, pre-syncope or dyspnea on exertion Resp: Reports: dyspnea (chronic-at baseline); Denies: productive cough, non-productive cough, pain on inspiration or chest con gestion GI: Reports: abdominal pain, nausea and vomiting; Denies: hematemesis, heartburn, diarrhea, change in bowel habits, hematochezia or melena : Reports: flank pain; Denies: difficulty voiding, dysuria, urinary frequency, urinary urgency, urinary hesitancy or hematuria Musc: Reports: back pain, extremity pain and extremity swelling; Denies: neck pain, joint pain, joint swelling or joint redness Skin/Breast: Denies: rash Neuro: Reports: sensory changes (reports numbness to L LE); Denies: headache(s), numbness in extremities, weakness in extremities or dizziness PFSH ED PFSH: Medical History Acute exacerbation of CHF (congestive heart failure) Acute exacerbation of CHF (congestive heart failure) Advised to contact social media project manager Atrial flutter Benign hypertension Breast pain Chronic major depressive disorder Chronic obstructive pulmonary disease, unspecified CKD (chronic kidney disease) CKD (chronic kidney disease) COPD, moderate Coronary artery fistula Diabetic neuropathy associated with type 2 diabetes mellitus Dietary noncompliance Diverticulosis Environmental and seasonal allergies Essential tremor Fibromyalgia Fracture of fibula, left, closed High risk medication use IBS (irritable bowel syndrome) Inflammatory arthritis Mobility impaired Noncompliance with diabetes treatment Not consistent with diet Obesity Pain of both breasts Polyarthralgia Reduced ejection fraction concurrent with and due to chronic heart failure Situational anxiety SOB (shortness of breath) SOB (shortness of breath) Type 2 diabetes mellitus with diabetic chronic kidney disease Vitamin D deficiency Surgical History History of section 4 times History of cholecystectomy History of hysterectomy with BSO History of tonsillectomy Hx of colonoscopy Hx of esophagogastroduodenoscopy Family History Brother Bleeding disorder CAD (coronary artery disease) Father CAD (coronary artery disease) Chronic kidney disease (CKD) Mother CAD (coronary artery disease) Cancer Diabetes Family/Other Cancer Other CHF (congestive heart failure) Heart disease Hypertension Denies family history of Clotting disorder Dementia Suicide Anesthesia complication Lung disease Stroke Social History (Reviewed 04/12/22 @ 09:28 by ALEJANDRA Orozco Smoking and tobacco status: former smoker Second hand smoke exposure: No Smoking risk assessment/counseling performed?: No Alcohol intake: never Desire information about alcohol rehabilitation?: No Counseling given: No Desire information about substance/drug rehabilitation?: No Counseling given: No Adopted: No Caregiver/support person: Yes Lives independently: No Household members: children and other Details: Son, sometimes grandson Housing: House Marital status: Single service: No Current occupational status: disabled History of recent travel: No Current gender identity: Female Physical Exam Const: COMMON NORMALS: no acute distress, patient oriented x3, no limitations, alert and well nourished GENERAL APPEARANCE: cooperative NUTRITIONAL APPEARANCE: obese morbidly obese ORIENTATION/CONSCIOUSNESS: Yes awake, Yes oriented to person, Yes oriented to place and Yes oriented to time HENMT: COMMON NORMALS: normocephalic and atraumatic HEAD & SCALP: normal to inspection, normocephalic and atraumatic FACE & SINUS: normal facial exam Neck/C-Spine: COMMON NORMALS: full ROM, no lymphadenopathy, supple and no meningeal signs Chest: COMMONS NORMALS: normal inspection of the chest and normal palpation of entire chest wall Resp: COMMON NORMALS: normal respiratory effort and clear to auscultation bilaterally AUSCULTATION: clear to auscultation bilaterally Cardio: COMMON NORMALS: regular rate and regular rhythm RATE: regular rate RHYTHM: regular rhythm GI: COMMON NORMALS: Soft to palpation INSPECTION: Yes central obesity AUSCULTATION: Yes normoactive bowel sounds PALPATION: Yes Soft to palpation and Yes Tenderness to palpation present (GI) (reports diffuse tenderness) OTHER: exam significantly limited secondary to morbid obesity Back/Pelvis: THORACIC SPINE/UPPER BACK: No thoracic spinal tenderness LUMBAR SPINE/LOWER BACK: Yes lumbar spinal tenderness BACK IMAGE (FEMALE): 1. TTP Extremity: COMMON NORMALS: normal to inspection, full ROM, capillary refill normal, no joint enlargement and no calf tenderness NARRATIVE EXTREMITY EXAM: chronic bilateral LE symmetrical edema; extremities equal color/temp; normal pulses/cap refill pt complains of swelling to L UE however this is difficult to appreciate due to body habitus; extremity is NV intact w/o redness/warmth Neuro: LUX COMA SCALE: document GCS findings Lux coma scale eye opening: Spontaneous Lux coma scale verbal response: Orientated Lux coma scale motor response: Obey commands [place] coma scale total score: 15 COMMON NORMALS: patient oriented x3, moves all extremities, no focal motor deficits and no sensory deficits noted SENSORIUM/ORIENTATION: Yes alert, Yes oriented to person, Yes oriented to place and Yes oriented to time MENINGEAL SIGNS: Yes no meningeal signs Skin: COMMON NORMALS: no rashes or lesions noted GENERAL SKIN EXAM: no rashes or lesions noted Course Vital Signs: Vital signs: Vital Signs Temperature 97.5 F L 04/12/22 08:46 Pulse Rate 82 04/12/22 11:43 Respiratory Rate 14 04/12/22 11:43 Blood Pressure 149/57 04/12/22 11:43 Pulse Oximetry 98 04/12/22 11:43 MDM - General Adult Medical Decision Making Patient is a 66-year-old female here with multiple medical complaints. Vital signs are stable apart from significant hypertension. She states she did not take her blood pressure medications today. She was given IV/p.o. medications here with good response. Blood work shows stable CKD. Glucose in the 300s. She did not take her normal dose of her basal insulin this morning and hasn't taken any sliding scale insulin. She states this is fairly normal for her. BNP is roughly 1300. Looking at labs-starting from Nov to current she is anywhere from [id number]. CXR does not show evidence of acute fluid overload. She is on Bumex 2mg BID and thinks she has an upcoming cardiology appointment with Dr. Aquino. Recommend she discuss if he wants to adjust this or any of her BP meds. UA with some hematuria/protein most likely related to her kidney disease. She states she has not followed up with her warehouse operations manager, Dr. Calderon like she should. Recommend she contact their office and schedule an appointment to see him as soon as possible. I will go ahead and culture urine. CT of her abdomen/pelvis is essentially normal. US of her left UE ordered due to her complaint of swelling is negative for DVT. At this time patient is stable for DC home with follow up with her PCP/bag adjuster/warehouse operations manager. Lab Data : 04/12/22 09:08 04/12/22 09:08 Radiology Impressions Chest X-Ray 04/12/22 09:05 IMPRESSION: 1. No acute cardiopulmonary finding. Abdomen/Pelvis CT 04/12/22 09:37 IMPRESSION: 1. No acute abdominal or pelvic abnormalities are identified. 2. Mild distal colonic diverticulosis without acute diverticulitis. 3. No renal stone or obstruction. 4. Prior cholecystectomy. 5. Normal appendix. Laboratory Results WBC 4.9 10^3/uL (4.0-10.0) 04/12/22 09:08 RBC 4.17 10^6/uL (4.1-5.3) 04/12/22 09:08 Hgb 12.3 g/dL (11.5-15.3) 04/12/22 09:08 Hct 36.2 % (37.0-47.0) L 04/12/22 09:08 MCV 86.8 fl (81-99) 04/12/22 09:08 MCH 29.5 pg (28.0-34.0) 04/12/22 09:08 MCHC 34.0 g/dL (30.0-36.0) 04/12/22 09:08 RDW 13.2 % (12.1-15.1) 04/12/22 09:08 Plt Count 159 10^3/cmm (130-400) 04/12/22 09:08 MPV 11.4 fL (7.4-10.4) H 04/12/22 09:08 Neut % (Auto) 83.4 % 04/12/22 09:08 Lymph % (Auto) 7.5 % 04/12/22 09:08 [place] % (Auto) 7.3 % 04/12/22 09:08 Eos % (Auto) 0.2 % 04/12/22 09:08 Baso % (Auto) 1.0 % 04/12/22 09:08 Neut # (Auto) 4.11 10^3/uL (1.8-7.7) 04/12/22 09:08 Lymph # (Auto) 0.4 10^3/uL (0.8-4.8) L 04/12/22 09:08 Jefferson # (Auto) 0.4 10^3/uL (0.2-0.9) 04/12/22 09:08 Eos # (Auto) 0.0 10^3/uL (0.0-0.8) 04/12/22 09:08 Baso # (Auto) 0.1 10^3/uL (0.0-0.1) 04/12/22 09:08 Nucleated RBC % (auto) 0 % 04/12/22 09:08 Nucleated RBCs # 0.0 /100WBC 04/12/22 09:08 Sodium 136 mmol/L (136-145) 04/12/22 09:08 Potassium 4.0 mmol/L (3.5-5.1) 04/12/22 09:08 Chloride 98 mmol/L (98-107) 04/12/22 09:08 Carbon Dioxide 28 mmol/L (22-29) 04/12/22 09:08 Anion Gap 14.0 (5-19) 04/12/22 09:08 BUN 29 mg/dL (8-23) H 04/12/22 09:08 Creatinine 1.1 mg/dL (0.5-0.9) H 04/12/22 09:08 GFR Calculation 50.0 mL/min (90-130) L 04/12/22 09:08 Glucose 309 mg/dL (65-115) H 04/12/22 09:08 Calculated Osmolality 300 mOsm/kg (285-295) H 04/12/22 09:08 Calcium 8.5 mg/dL (8.5-10.5) 04/12/22 09:08 Total Bilirubin 0.3 mg/dL (0.15-1.2) 04/12/22 09:08 AST 36 U/L (0-32) H 04/12/22 09:08 ALT 30 U/L (0-33) 04/12/22 09:08 Alkaline Phosphatase 79 IU/L (35-105) 04/12/22 09:08 NT-Pro-B Natriuret Pep 1304 pg/mL (0-125) H 04/12/22 09:08 Total Protein 6.4 g/dL (6.6-8.7) L 04/12/22 09:08 Albumin 3.5 g/dL (3.5-5.2) 04/12/22 09:08 Globulin 2.9 g/dL (1.3-4.6) 04/12/22 09:08 Lipase 61 U/L (13-60) H 04/12/22 09:08 Urine Color Yellow (Yellow) 04/12/22 09:24 Urine Appearance Hazy (CLEAR) A 04/12/22 09:24 Urine pH 6.5 (5-7) 04/12/22 09:24 Ur Specific [place] 1.015 (1.005-1.030) 04/12/22 09:24 Urine Protein 3+ (Negative) H 04/12/22 09:24 Urine Glucose (UA) 2+ (Normal) H 04/12/22 09:24 Urine Ketones Negative (Negative) 04/12/22 09:24 Urine Blood 3+ (Negative) H 04/12/22 09:24 Urine Nitrate Negative (Negative) 04/12/22 09:24 Urine Bilirubin Neg (Negative) 04/12/22 09:24 Urine Urobilinogen Norm mg/dL (Negative) 04/12/22 09:24 Ur Leukocyte Esterase Negative (Negative) 04/12/22 09:24 Urine RBC 5-10 /hpf (0-2) H 04/12/22 09:24 Urine WBC 0-4 /hpf (0-5) H 04/12/22 09:24 Ur Squamous Epith Cells Not Reportable 04/12/22 09:24 Amorphous Sediment Not Reportable 04/12/22 09:24 Urine Bacteria None /hpf (NONE) 04/12/22 09:24 Discharge Plan Discharge Patient Disposition: Home Clinical Impression: Left lumbar radiculopathy, CHF (congestive heart failure), Chronic kidney disease, Left arm pain, Vomiting Condition: Stable Prescriptions: New Reglan 10 mg tablet 10 mg PO Q6H PRN (Reason: nausea and vomiting) Qty: 10 0RF No Action (DME) pen needle, diabetic [TechLITE Pen Needle] 31 gauge x 5/16 needle See Rx Instructions .ROUTE .MEDSUPPLY Qty: 1,200 0RF Rx Instructions: As directed (DME) blood-glucose meter [Blood Glucose Monitoring] Kit See Rx Instructions .ROUTE .MEDSUPPLY Qty: 1 0RF Rx Instructions: As directed, May substitute for any brand (DME) wheelchair cushions See Rx Instructions .Route .MEDSUPPLY Qty: 1 0RF Rx Instructions: As directed (DME) Bariatric emy lift See Rx Instructions .Route .MEDSUPPLY Qty: 1 0RF Rx Instructions: BMI 57.5% weight 325# (DME) Alternating pressure mattress and pressure pump See Rx Instructions .Route .MEDSUPPLY Qty: 1 0RF Rx Instructions: As directed dicyclomine 20 mg tablet 20 mg PO QID Qty: 120 3RF bumetanide 2 mg tablet 2 mg PO BID Qty: 60 1RF (DME) compression socks, medium Misc See Rx Instructions .Route Qty: 2 0RF Rx Instructions: As directed hydralazine 50 mg tablet 25 mg PO BID Qty: 100 3RF metoprolol tartrate 50 mg tablet 50 mg PO Q12H Qty: 180 3RF albuterol sulfate [ProAir HFA] 90 mcg/actuation HFA aerosol inhaler 2 puff INHALATION Q4H PRN (Reason: shortness of breath or wheezing) Qty: 8.5 2RF fluoxetine 40 mg capsule 40 mg PO DAILY@2099 Qty: 30 2RF Eliquis 5 mg tablet 5 mg PO BID@0900,2100 Qty: 60 2RF clindamycin phosphate 1 % lotion See Rx Instructions .ROUTE .COMPLEX Qty: 60 1RF Dose Instruction: APPLY TOPICALLY TWICE DAILY NEEDED FOR SKIN IRRITATION Rx Instructions: APPLY TOPICALLY TWICE DAILY NEEDED FOR SKIN IRRITATION triamcinolone acetonide 0.1 % ointment 1 applic TOPICAL DAILY PRN (Reason: itching) Qty: 30 0RF methocarbamol 500 mg tablet 500 mg PO TID PRN (Reason: Muscle Spasm) Qty: 90 2RF hydroxychloroquine 200 mg tablet 200 mg PO BID Qty: 60 0RF cholecalciferol (vitamin D3) [Vitamin D3] 125 mcg (5,000 unit) Tablet 125 mcg PO DAILY 0RF insulin aspart U-100 [Novolog Flexpen U-100 Insulin] 100 unit/mL (3 mL) insulin pen See Rx Instructions .ROUTE .COMPLEX 0RF Rx Instructions: SLIDING SCALE WITH MEALS PRN hydroxyzine pamoate 25 mg capsule 50 mg PO BEDTIME PRN (Reason: Anxiety) 0RF Levemir FlexTouch U-100 Insuln 100 unit/mL (3 mL) insulin pen 125 unit SUBCUT QAM 0RF acetaminophen 325 mg tablet 325 - 650 mg PO Q6H PRN (Reason: Pain) 0RF isosorbide mononitrate 60 mg tablet extended release 24 hr 60 mg PO DAILY 0RF pantoprazole 40 mg tablet,delayed release (DR/EC) 40 mg PO DAILY PRN (Reason: Heartburn) 0RF carvedilol 3.125 mg tablet 3.125 mg PO BID 0RF Label Comments: PT STATES SHE TAKES 3.125MG BID FILLED 12/15/21 EXT MED HISTORY SHOWS 12.5MG BID FILLED 03/23/22 30D/S prednisone 2.5 mg tablet 2.5 mg PO DAILY 0RF Nitrostat 0.4 mg Tablet, Sublingual 0.4 mg SUBLINGUAL Q5M PRN (Reason: Chest Pain) 0RF Rx Instructions: do not exceed 3 doses per episode magnesium oxide 400 mg magnesium Tablet 400 mg PO BEDTIME PRN (Reason: Muscle Spasm) 0RF Vitamin B-12 1 tab PO DAILY 0RF fluoxetine 20 mg capsule 20 mg PO DAILY@08 0RF Rx Instructions: continue 40mg 2100 dose Lunesta 1 mg tablet 1 mg PO BEDTIME PRN (Reason: Sleep) 0RF potassium chloride 20 mEq tablet extended release 20 meq PO .THREE TIMES WEEKLY 0RF Discharge Orders: Discharge ED (Routine); Ordered 04/12/22 Ordered By: Lavinia Chan Referrals: Lorenzo Muller, [employer] [Primary Care Provider] - Coding Level of Care Code ED Computer Technology Teacher for Chg Fwd Exam Comprehensive
[2022-04-12 09:19] LABS: Basophils # 0.1 10^3/uL (0.0-0.1); Eosinophils % 0.2 %; Hematocrit 36.2 % (37.0-47.0); Hemoglobin 12.3 g/dL (11.5-15.3); Lymphocytes # 0.4 10^3/uL (0.8-4.8); Lymphocytes % 7.5 %; Mean Corpuscular Hemoglobin 29.5 pg (28.0-34.0); Mean Corpuscular Volume 86.8 fl (81-99); Mean Platelet Volume 11.4 fL (7.4-10.4); Monocytes # 0.4 10^3/uL (0.2-0.9); Monocytes % 7.3 %; Neutrophils # 4.11 10^3/uL (1.8-7.7); Neutrophils % 83.4 %; Nucleated Red Blood Cells % 0 %; Platelet Count 159 10^3/cmm (130-400); Red Blood Count 4.17 10^6/uL (4.1-5.3); Red Cell Distribution Width 13.2 % (12.1-15.1); White Blood Count 4.9 10^3/uL (4.0-10.0)
[2022-04-12 09:25] VITALS: BP 199/92; PULSE 89; RESP 16; O2SAT 96
[2022-04-12] MEDS: ondansetron 2 mg/ML SDV 2 mL 4 MG IVP (09:26)
[2022-04-12] MEDS: metoprolol tartrate 1 mg/1 mL SDV 5 mL 5 MG IVP (09:29)
[2022-04-12 09:37] LABS: Add Urine Microscopic? YES; Bilirubin Urine Neg (Negative); Blood Urine 3+ (Negative); Glucose Urine UA 2+ (Normal); Ketones Urine Negative (Negative); Leukocyte Esterase Urine Negative (Negative); Nitrate Urine Negative (Negative); Protein Urine 3+ (Negative); Specific Gravity, Urine 1.015 (1.005-1.030); Urine Appearance Hazy (CLEAR); Urine Color Yellow (Yellow); Urobilinogen Urine Norm (Negative); WBC Urine 0-4 /hpf (0-5); pH Urine 6.5 (5-7)
--- NOTE | 2022-04-12 09:37 | CT_ITS ---
WS: [id number] CT ABDOMEN AND PELVIS NONCONTRAST HISTORY: L back pain, abdominal bloating/distention/vomiting TECHNIQUE: Imaging performed through the abdomen and pelvis. Coronal and sagittal reformats are submi tted. All CT scans at [facility] use at least one of these dose optimization techniques: auto mated exposure control; mA and/or kV adjustment per patient size (includes targeted exams where dose is matched to clinical indication); or iterative reconstruction. DLP: 1804.42 mGy.cm COMPARISON: None available. Lower thorax: Lung bases are clear. Visualized heart is normal. No hiatal hernia. Liver: Mild hepatic steatosis. The liver wraps around the anterior abdomen to touch the spleen. Prior cholecystectomy. Pancreas: Normal size and attenuation. Normal pancreatic duct. No pancreatitis or mass. Spleen: Normal. Adrenal glands: Normal. No mass. Right kidney: Mild perinephric stranding. No obstruction. Left kidney: Mild perinephric stranding with no obstruction. Aorta: Mild atherosclerosis abdominal aorta with no aneurysm. No free fluid, intraperitoneal air or significant lymphadenopathy. GI tract: Normal appendix. Numerous diverticula in the distal colon. No evidence for acute diverticul itis. Abdominal wall: Negative. No hernia. Pelvis: Normal. Osseous structures: Mild lumbar spondylosis. Mild curvature to the LEFT. CT/CT abdomen pelvis con [id number] IMPRESSION: 1. No acute abdominal or pelvic abnormalities are identified. 2. Mild distal colonic diverticulosis without acute diverticulitis. 3. No renal stone or obstruction. 4. Prior cholecystectomy. 5. Normal appendix.
[2022-04-12 09:42] VITALS: BP 206/95; PULSE 74; RESP 14; O2SAT 95
[2022-04-12 09:46] LABS: Alanine Aminotransferase 30 U/L (0-33); Albumin Level 3.5 g/dL (3.5-5.2); Alkaline Phosphatase 79 IU/L (35-105); Aspartate Amino Transferase 36 U/L (0-32); Blood Urea Nitrogen 29 mg/dL (8-23); Calcium 8.5 mg/dL (8.5-10.5); Carbon Dioxide 28 mmol/L (22-29); Chloride 98 mmol/L (98-107); Globulin 2.9 g/dL (1.3-4.6); Glucose 309 mg/dL (65-115); Lipase 61 U/L (13-60); NT Pro B Type Natriuretic Pept 1304 pg/mL (0-125); Osmolality Calculated 300 mOsm/kg (285-295); Sodium 136 mmol/L (136-145); Total Bilirubin 0.3 mg/dL (0.15-1.2); Total Protein 6.4 g/dL (6.6-8.7)
--- NOTE | 2022-04-12 09:53 | PC.PHAR ---
PT STATES SHE TAKES CARE OF HER OWN MEDICATIONS-PT STATES SHE IS NO LONGER TAKING PRIMIDONE 50MG BID FILLED ON 03/23/22 30D/S AND PT STATES SHE IS NO LONGER TAKING LASIX 80MG DAILY FILLED ON 03/23/22 30D/S-PT STATES SHE TAKES CARVEDILOL 3.125MG BID FILLED 12/15/21 EXT MED HISTORY SHOWS 12.5MG BID FILLED ON 03/23/22 30D/S-PT STATES SHE HAS BEEN CUTTING HER 12.5MG TABS TO MAKE 3.125MG -NOTES ARE MADE IN THE PHARMACY COMMENTS-
[2022-04-12] MEDS: hyDRALAzine 25 mg Tablet PO (09:56)
[2022-04-12] MEDS: carvedilol 12.5 mg Tablet PO (09:56)
[2022-04-12] MEDS: bumetanide 0.25 mg/mL SDV 4 mL 1 MG IVP (09:59)
[2022-04-12 10:29] VITALS: BP 199/99; PULSE 75; RESP 16; O2SAT 99
[2022-04-12 11:02] VITALS: BP 198/97; PULSE 75; RESP 15; O2SAT 97
[2022-04-12 11:43] VITALS: BP 149/57; PULSE 82; RESP 14; O2SAT 98
== END 2022-04-12 12:01 | disposition home or self-care (01) ==
PROVIDERS: Emergency Provider Physician Assistant; PCP Nurse Practitioner
DX: M54.16 Radiculopathy, lumbar region (principal); I13.0 Hypertensive heart and chronic kidney disease with heart failure and stage 1 through stage 4 chronic kidney disease, or unspecified chronic kidney disease; I50.9 Heart failure, unspecified; N18.9 Chronic kidney disease, unspecified; E11.22 Type 2 diabetes mellitus with diabetic chronic kidney disease; M79.602 Pain in left arm; M79.89 Other specified soft tissue disorders; R11.2 Nausea with vomiting, unspecified; R31.9 Hematuria, unspecified; R14.0 Abdominal distension (gaseous); E11.42 Type 2 diabetes mellitus with diabetic polyneuropathy; E66.01 Morbid (severe) obesity due to excess calories; Z68.43 Body mass index [BMI] 50.0-59.9, adult; Z79.4 Long term (current) use of insulin; Z87.891 Personal history of nicotine dependence; Z86.73 Personal history of transient ischemic attack (TIA), and cerebral infarction without residual deficits; Z79.01 Long term (current) use of anticoagulants
CPT/HCPCS: 71045; 74176; 80053; 81001; 83690; 83880; 85025; 87086; 93971; 96374; 96375; 99284; J2405; J3490

== ENCOUNTER 2022-04-14 05:53 | Emergency (ER) | payer MEDICARE, MEDICAID, SELFPAY ==
[2022-04-14 05:53] VITALS: PULSE 91; RESP 18; TEMP 39.4; O2SAT 92; BMI 53.1
--- NOTE | 2022-04-14 06:12 | CTR_ITS ---
PROCEDURE INFORMATION: Exam: CT Head Without Contrast Exam date and time: 04/14/2022 6:47 AM Age: 66 years old Clinical indication: Pain; Headache; Additional info: Concern for ich TECHNIQUE: Imaging protocol: Computed tomography of the head without contrast. Radiation optimization: All CT scans at this facility use at least one of these dose optimization techniques: automated exposure control; mA and/or kV adjustment per patient size (includes targeted exams where dose is matched to clinical indication); or iterative reconstruction. COMPARISON: CT head wo con* [id number] 12/27/2021 6:42 PM RADIATION DOSE METRICS: Total DLP (mGy-cm): 1804.04 FINDINGS: Brain: No acute hemorrhage identified. No large territorial areas of hypoattenuation concerning for ischemic infarct identified. No intracranial mass effect. Cerebral ventricles: The ventricles are within normal limits. Paranasal sinuses: The visualized sinuses are unremarkable. Mastoid air cells: The visualized mastoid air cells are well aerated. Bones/joints: The osseous structures are intact. Soft tissues: Unremarkable. CT/CT head wo con* [id number] IMPRESSION: No acute intracranial abnormality.
--- NOTE | 2022-04-14 06:12 | CTR_ITS ---
PROCEDURE INFORMATION: Exam: CT Abdomen And Pelvis With Contrast Exam date and time: 04/14/2022 6:51 AM Age: 66 years old Clinical indication: Nausea and vomiting; Abdominal pain; Generalized; Prior surgery; Surgery type: Csection. Gb. Hysterectomy. Patient HX: C/O diffuse abd pain with n/v. ; Additional info: Abd pain vomiting TECHNIQUE: Imaging protocol: Computed tomography of the abdomen and pelvis with contrast. Radiation optimization: All CT scans at this facility use at least one of these dose optimization techniques: automated exposure control; mA and/or kV adjustment per patient size (includes targeted exams where dose is matched to clinical indication); or iterative reconstruction. Contrast material: OMNI 300; Contrast volume: 95 ml; Contrast route: INTRAVENOUS (IV); COMPARISON: 1. CT abdomen pelvis wo con [id number] 04/12/2022 10:[address] chest abd pel w con* 12/27/2021 6:55 PM RADIATION DOSE METRICS: Total DLP (mGy-cm): 1733.63 FINDINGS: Lungs: The visualized lung bases demonstrate no focal airspace opacification or pleural effusion. Heart: Partially visualized heart is enlarged for size. Liver: Left lobe of the liver is enlarged. Gallbladder and bile ducts: The gallbladder is surgically absent. Pancreas: The pancreas appears normal. Spleen: The spleen appears normal. Adrenal glands: The adrenals appear normal. Kidneys and ureters: The kidneys enhance symmetrically and empty into non-dilated ureters. Stomach and bowel: The stomach appears unremarkable. The small bowel loops are not abnormally dilated. Colonic diverticulosis without signs of acute diverticulitis. Appendix: The appendix appears normal. Intraperitoneal space: No ascites or significant fluid collection. Vasculature: The aorta is nonaneurysmal. The IVC appears normal. Lymph nodes: There are no enlarged lymph nodes. Urinary bladder: The bladder is distended and demonstrates no focal contour abnormality. Reproductive: The uterus is surgically absent. Bones/joints: Degenerative disc disease at L2-3 and L3-4. Grade 1 anterolisthesis of L3 on L4. Multilevel facet arthropathy. Soft tissues: Unremarkable. CT/CT abdomen pelvis w con* [id number] IMPRESSION: 1. No acute abdominopelvic abnormality. 2. Colonic diverticulosis without signs of acute diverticulitis. 3. Mild cardiomegaly.
--- NOTE | 2022-04-14 06:14 | XRR_ITS ---
PROCEDURE INFORMATION: Exam: XR Chest Exam date and time: 04/14/2022 6:35 AM Age: 66 years old Clinical indication: Fever TECHNIQUE: Imaging protocol: XR of the chest. Views: 1 view. COMPARISON: CR XR chest 1V portable [id number] 04/12/2022 9:12 AM FINDINGS: Lungs: The lung parenchyma is clear. Pleural spaces: No pneumothorax. No pleural effusion. Heart/Mediastinum: The heart is enlarged for size. Bones/joints: Unremarkable. XR/XR chest 1V portable [id number] IMPRESSION: Stable cardiomegaly.
[2022-04-14] MEDS: ondansetron 2 mg/ML SDV 2 mL 4 MG IVP ×2 (06:26→07:49)
--- NOTE | 2022-04-14 06:26 | ED_ITS ---
HPI - Nausea/Vomiting/Diarrhea General: Chief complaint: Nausea/Vomiting/Diarrhea Stated complaint: abd pain n/v Time Seen by Provider: 04/14/22 06:01 History of Present Illness: Patient comes in with headache, vomiting, back pain, abdominal pain for the past 4 days. States she started having a headache and vomiting about 4 days ago. States she also developed some back pain and ab dominal pain which she describes as left flank/left upper quadrant. States that she has some chronic abdominal pain. Denies any fever or diarrhea. However on initial exam here the patient is febrile. She denies cough, congestion, sore throat. She is on apixaban. Associated nausea: Yes Associated symtoms: Reports nausea; Denies anxiety, change in vision, chest pain, dysuria, headache(s) or palpitations Review of Systems Const: Denies: fever(s) or body aches Eyes: Denies: change in vision or blurry vision ENMT: Denies: throat pain or odynophagia Card: Denies: chest pain or palpitations Resp: Denies: dyspnea or productive cough GI: Reports: abdominal pain, nausea and vomiting; Denies: diarrhea : Reports: flank pain; Denies: dysuria Musc: Denies: neck pain or back pain Skin/Breast: Denies: rash or pruritus Neuro: Denies: headache(s) or numbness in extremities Psych: Denies: anxiety or change in appetite Endo: Denies: polyuria or excessive sweating PFS ED PFSH: Medical History Acute exacerbation of CHF (congestive heart failure) Acute exacerbation of CHF (congestive heart failure) Advised to contact transition social worker Atrial flutter Benign hypertension Breast pain Chronic major depressive disorder Chronic obstructive pulmonary disease, unspecified CKD (chronic kidney disease) CKD (chronic kidney disease) COPD, moderate Coronary artery fistula Diabetic neuropathy associated with type 2 diabetes mellitus Dietary noncompliance Diverticulosis Environmental and seasonal allergies Essential tremor Fibromyalgia Fracture of fibula, left, closed High risk medication use IBS (irritable bowel syndrome) Inflammatory arthritis Mobility impaired Noncompliance with diabetes treatment Not consistent with diet Obesity Pain of both breasts Polyarthralgia Reduced ejection fraction concurrent with and due to chronic heart failure Situational anxiety SOB (shortness of breath) SOB (shortness of breath) Type 2 diabetes mellitus with diabetic chronic kidney disease Vitamin D deficiency Surgical History History of section 4 times History of cholecystectomy History of hysterectomy with BSO History of tonsillectomy Hx of colonoscopy Hx of esophagogastroduodenoscopy Family History Brother Bleeding disorder CAD (coronary artery disease) Father CAD (coronary artery disease) Chronic kidney disease (CKD) Mother CAD (coronary artery disease) Cancer Diabetes Family/Other Cancer Other CHF (congestive heart failure) Heart disease Hypertension Denies family history of Clotting disorder Dementia Suicide Anesthesia complication Lung disease Stroke Social History Smoking and tobacco status: former smoker Second hand smoke exposure: No Smoking risk assessment/counseling performed?: No Alcohol intake: never Desire information about alcohol rehabilitation?: No Counseling given: No Desire information about substance/drug rehabilitation?: No Counseling given: No Adopted: No Caregiver/support person: Yes Lives independently: No Household members: children and other Details: Son, sometimes grandson Housing: House Marital status: Single service: No Current occupational status: disabled History of recent travel: No Current gender identity: Female Physical Exam Const: COMMON NORMALS: patient oriented x3, healthy appearing and alert OTHER: Mild distress from nausea HENMT: COMMON NORMALS: normocephalic and atraumatic HEAD & SCALP: normocephalic and atraumatic Eye: COMMON NORMALS: Equal, round and reactive pupils present and EOMs intact bilaterally PUPIL: Yes Equal, round and reactive pupils present Neck/C-Spine: COMMON NORMALS: full ROM and supple Resp: COMMON NORMALS: normal respiratory effort, No retractions and No use of accessory muscles Cardio: COMMON NORMALS: regular rate and regular rhythm RATE: regular rate RHYTHM: regular rhythm GI: COMMON NORMALS: Normal to inspection, nondistended, normoactive bowel sounds present, Soft to palpation and non-tender PALPATION: Yes Soft to palpation Back/Pelvis: COMMON NORMALS: thoracic and lumbar spine normal to inspection and no thoracic nor lumbar tenderness Extremity: COMMON NORMALS: normal to inspection and full ROM Neuro: COMMON NORMALS: patient oriented x3 SENSORIUM/ORIENTATION: Yes alert Psych: COMMON NORMALS: mental status grossly normal and cooperative Skin: COMMON NORMALS: no rashes or lesions noted and no wounds GENERAL SKIN EXAM: no rashes or lesions noted Course Vital Signs: Vital signs: Vital Signs Temperature 103 F H 04/14/22 05:53 Pulse Rate 89 04/14/22 07:00 Respiratory Rate 17 04/14/22 07:00 Blood Pressure 181/99 04/14/22 07:00 Pulse Oximetry 94 04/14/22 07:00 MDM - Nausea/Vomiting/Diarrhea Medical Decision Making Patient comes in with headache, vomiting, back pain, abdominal pain for the past 4 days. States she started having a headache and vomiting about 4 days ago. States she also developed some back pain and abdominal pain which she describes as left flank/left upper quadrant. States that she has some chronic abdominal p ain. Denies any fever or diarrhea. However on initial exam here the patient is febrile. She denies cough, congestion, sore throat. She is on apixaban. On physical exam she is in mild distress due to the nausea and dry heaving. Will check labs, CT, treat nausea with IV antiemetics, and reassess. On reassessment I talked to the patient about the test results. We will give her a dose of her blood pressure medication here she has been unable to keep it down for the past couple of days. She states she has a prescription for nausea medication that she has not picked up yet after her previous visit here a couple days ago. She states she can have somebody go get it for her today. I encour aged her to take the antiemetic scheduled for the next day or 2 and make sure she drinks plenty of fluids. Will discharge home at this time with precautions to return for worsening or changing symptoms. Lab Data : 04/14/22 06:20 04/14/22 06:20 Radiology Impressions Abdomen/Pelvis CT 04/14/22 06:12 IMPRESSION: 1. No acute abdominopelvic abnormality. 2. Colonic diverticulosis without signs of acute diverticulitis. 3. Mild cardiomegaly. Head CT 04/14/22 06:12 IMPRESSION: No acute intracranial abnormality. Chest X-Ray 04/14/22 06:14 IMPRESSION: Stable cardiomegaly. Laboratory Results WBC 4.7 10^3/uL (4.0-10.0) 04/14/22 06:20 RBC 4.16 10^6/uL (4.1-5.3) 04/14/22 06:20 Hgb 12.1 g/dL (11.5-15.3) 04/14/22 06:20 Hct 35.0 % (37.0-47.0) L 04/14/22 06:20 MCV 84.1 fl (81-99) 04/14/22 06:20 MCH 29.1 pg (28.0-34.0) 04/14/22 06:20 MCHC 34.6 g/dL (30.0-36.0) 04/14/22 06:20 RDW 13.2 % (12.1-15.1) 04/14/22 06:20 Plt Count 121 10^3/cmm (130-400) L 04/14/22 06:20 MPV 11.3 fL (7.4-10.4) H 04/14/22 06:20 Neut % (Auto) 86.4 % 04/14/22 06:20 Lymph % (Auto) 5.9 % 04/14/22 06:20 Eaton % (Auto) 6.3 % 04/14/22 06:20 Eos % (Auto) 0.0 % 04/14/22 06:20 Baso % (Auto) 0.6 % 04/14/22 06:20 Neut # (Auto) 4.09 10^3/uL (1.8-7.7) 04/14/22 06:20 Lymph # (Auto) 0.3 10^3/uL (0.8-4.8) L 04/14/22 06:20 Eaton # (Auto) 0.3 10^3/uL (0.2-0.9) 04/14/22 06:20 Eos # (Auto) 0.0 10^3/uL (0.0-0.8) 04/14/22 06:20 Baso # (Auto) 0.0 10^3/uL (0.0-0.1) 04/14/22 06:20 Nucleated RBC % (auto) 0 % 04/14/22 06:20 Nucleated RBCs # 0.0 /100WBC 04/14/22 06:20 Sodium 133 mmol/L (136-145) L 04/14/22 06:20 Potassium 4.0 mmol/L (3.5-5.1) 04/14/22 06:20 Chloride 95 mmol/L (98-107) L 04/14/22 06:20 Carbon Dioxide 29 mmol/L (22-29) 04/14/22 06:20 Anion Gap 13.0 (5-19) 04/14/22 06:20 BUN 27 mg/dL (8-23) H 04/14/22 06:20 Creatinine 1.2 mg/dL (0.5-0.9) H 04/14/22 06:20 GFR Calculation 45.2 mL/min (90-130) L 04/14/22 06:20 Glucose 218 mg/dL (65-115) H 04/14/22 06:20 Calculated Osmolality 288 mOsm/kg (285-295) 04/14/22 06:20 Lactate 2.1 mmol/L (0.5-2.2) 04/14/22 06:20 Calcium 9.2 mg/dL (8.5-10.5) 04/14/22 06:20 Total Bilirubin 0.4 mg/dL (0.15-1.2) 04/14/22 06:20 AST 44 U/L (0-32) H 04/14/22 06:20 ALT 35 U/L (0-33) H 04/14/22 06:20 Alkaline Phosphatase 71 IU/L (35-105) 04/14/22 06:20 Total Protein 5.7 g/dL (6.6-8.7) L 04/14/22 06:20 Albumin 3.1 g/dL (3.5-5.2) L 04/14/22 06:20 Globulin 2.6 g/dL (1.3-4.6) 04/14/22 06:20 Lipase 35 U/L (13-60) 04/14/22 06:20 Discharge Plan Discharge Patient Disposition: Home Clinical Impression: Nausea & vomiting Condition: Stable Prescriptions: No Action (DME) pen needle, diabetic [TechLITE Pen Needle] 31 gauge x 5/16 needle See Rx Instructions .ROUTE .MEDSUPPLY Qty: 1,200 0RF Rx Instructions: As directed (DME) blood-glucose meter [Blood Glucose Monitoring] Kit See Rx Instructions .ROUTE .MEDSUPPLY Qty: 1 0RF Rx Instructions: As directed, May substitute for any brand (DME) wheelchair cushions See Rx Instructions .Route .MEDSUPPLY Qty: 1 0RF Rx Instructions: As directed (DME) Bariatric emy lift See Rx Instructions .Route .MEDSUPPLY Qty: 1 0RF Rx Instructions: BMI 57.5% weight 325# (DME) Alternating pressure mattress and pressure pump See Rx Instructions .Route .MEDSUPPLY Qty: 1 0RF Rx Instructions: As directed dicyclomine 20 mg tablet 20 mg PO QID Qty: 120 3RF bumetanide 2 mg tablet 2 mg PO BID Qty: 60 1RF (DME) compression socks, medium Misc See Rx Instructions .Route Qty: 2 0RF Rx Instructions: As directed hydralazine 50 mg tablet 25 mg PO BID Qty: 100 3RF metoprolol tartrate 50 mg tablet 50 mg PO Q12H Qty: 180 3RF albuterol sulfate [ProAir HFA] 90 mcg/actuation HFA aerosol inhaler 2 puff INHALATION Q4H PRN (Reason: shortness of breath or wheezing) Qty: 8.5 2RF fluoxetine 40 mg capsule 40 mg PO DAILY@2100 Qty: 30 2RF Eliquis 5 mg tablet 5 mg PO BID@0900,2100 Qty: 60 2RF clindamycin phosphate 1 % lotion See Rx Instructions .ROUTE .COMPLEX Qty: 60 1RF Dose Instruction: APPLY TOPICALLY TWICE DAILY NEEDED FOR SKIN IRRITATION Rx Instructions: APPLY TOPICALLY TWICE DAILY NEEDED FOR SKIN IRRITATION triamcinolone acetonide 0.1 % ointment 1 applic TOPICAL DAILY PRN (Reason: itching) Qty: 30 0RF methocarbamol 500 mg tablet 500 mg PO TID PRN (Reason: Muscle Spasm) Qty: 90 2RF hydroxychloroquine 200 mg tablet 200 mg PO BID Qty: 60 0RF cholecalciferol (vitamin D3) [Vitamin D3] 125 mcg (5,000 unit) Tablet 125 mcg PO DAILY 0RF insulin aspart U-100 [Novolog Flexpen U-100 Insulin] 100 unit/mL (3 mL) insulin pen See Rx Instructions .ROUTE .COMPLEX 0RF Rx Instructions: SLIDING SCALE WITH MEALS PRN hydroxyzine pamoate 25 mg capsule 50 mg PO BEDTIME PRN (Reason: Anxiety) 0RF Levemir FlexTouch U-100 Insuln 100 unit/mL (3 mL) insulin pen 125 unit SUBCUT QAM 0RF acetaminophen 325 mg tablet 325 - 650 mg PO Q6H PRN (Reason: Pain) 0RF isosorbide mononitrate 60 mg tablet extended release 24 hr 60 mg PO DAILY 0RF pantoprazole 40 mg tablet,delayed release (DR/EC) 40 mg PO DAILY PRN (Reason: Heartburn) 0RF carvedilol 3.125 mg tablet 3.125 mg PO BID 0RF Label Comments: PT STATES SHE TAKES 3.125MG BID FILLED 12/15/21 EXT MED HISTORY SHOWS 12.5MG BID FILLED 03/23/22 30D/S prednisone 2.5 mg tablet 2.5 mg PO DAILY 0RF Nitrostat 0.4 mg Tablet, Sublingual 0.4 mg SUBLINGUAL Q5M PRN (Reason: Chest Pain) 0RF Rx Instructions: do not exceed 3 doses per episode magnesium oxide 400 mg magnesium Tablet 400 mg PO BEDTIME PRN (Reason: Muscle Spasm) 0RF Vitamin B-12 1 tab PO DAILY 0RF fluoxetine 20 mg capsule 20 mg PO DAILY@08 0RF Rx Instructions: continue 40mg 2100 dose Lunesta 1 mg tablet 1 mg PO BEDTIME PRN (Reason: Sleep) 0RF potassium chloride 20 mEq tablet extended release 20 meq PO .THREE TIMES WEEKLY 0RF Reglan 10 mg tablet 10 mg PO Q6H PRN (Reason: nausea and vomiting) Qty: 10 0RF Discharge Orders: Discharge ED (Routine); Ordered 04/14/22 Ordered By: Joselito Angel Referrals: Lorenzo Muller, [facility] [Primary Care Provider] - Discharge Diet: Advance as tolerated Coding Level of Care Code ED Chiropractic Physician for Chg Fwd Exam Comprehensive
[2022-04-14 06:29] VITALS: BP 204/92; O2SAT 98
[2022-04-14 06:30] VITALS: BP 204/92; O2SAT 98
[2022-04-14 06:41] LABS: Basophils % 0.6 %; Hemoglobin 12.1 g/dL (11.5-15.3); Lymphocytes # 0.3 10^3/uL (0.8-4.8); Lymphocytes % 5.9 %; Mean Corpuscular HGB Conc 34.6 g/dL (30.0-36.0); Mean Corpuscular Hemoglobin 29.1 pg (28.0-34.0); Mean Corpuscular Volume 84.1 fl (81-99); Mean Platelet Volume 11.3 fL (7.4-10.4); Monocytes # 0.3 10^3/uL (0.2-0.9); Monocytes % 6.3 %; Neutrophils # 4.09 10^3/uL (1.8-7.7); Neutrophils % 86.4 %; Nucleated Red Blood Cells % 0 %; Platelet Count 121 10^3/cmm (130-400); Red Blood Count 4.16 10^6/uL (4.1-5.3); Red Cell Distribution Width 13.2 % (12.1-15.1); White Blood Count 4.7 10^3/uL (4.0-10.0)
[2022-04-14 06:45] VITALS: BP 204/92
[2022-04-14] MEDS: iohexol 300 mg/mL 100 mL Btl IV (06:46)
--- NOTE | 2022-04-14 06:46 | PC.NURSE ---
Pt. states that she would like to have ice chips.
--- NOTE | 2022-04-14 06:46 | PC.NURSE ---
Pt. given blanket
[2022-04-14 07:00] VITALS: BP 181/99; PULSE 89; RESP 17; O2SAT 94
[2022-04-14 07:03] LABS: Alanine Aminotransferase 35 U/L (0-33); Albumin Level 3.1 g/dL (3.5-5.2); Alkaline Phosphatase 71 IU/L (35-105); Aspartate Amino Transferase 44 U/L (0-32); Blood Urea Nitrogen 27 mg/dL (8-23); Calcium 9.2 mg/dL (8.5-10.5); Carbon Dioxide 29 mmol/L (22-29); Chloride 95 mmol/L (98-107); Globulin 2.6 g/dL (1.3-4.6); Glomerular Filtration Rate 45.2 mL/min (90-130); Glucose 218 mg/dL (65-115); Lipase 35 U/L (13-60); Osmolality Calculated 288 mOsm/kg (285-295); Sodium 133 mmol/L (136-145); Total Bilirubin 0.4 mg/dL (0.15-1.2); Total Protein 5.7 g/dL (6.6-8.7)
[2022-04-14 07:04] LABS: Lactate (Lactic Acid level) 2.1 mmol/L (0.5-2.2)
[2022-04-14] MEDS: hyDRALAzine 20 mg/mL INJ 1 mL 10 MG IVP (07:43)
[2022-04-14 07:51] VITALS: BP 167/93; PULSE 80; RESP 16; O2SAT 98
== END 2022-04-14 08:15 | disposition home or self-care (01) ==
PROVIDERS: Emergency Provider Emergency Medicine; PCP Nurse Practitioner
DX: R11.2 Nausea with vomiting, unspecified (principal); E66.9 Obesity, unspecified; Z68.43 Body mass index [BMI] 50.0-59.9, adult; J44.9 Chronic obstructive pulmonary disease, unspecified; I10 Essential (primary) hypertension
CPT/HCPCS: 70450; 71045; 74177; 80053; 83605; 83690; 85025; 87040; 96374; 96375; 96376; 99284; J0360; J2405; Q9967

== ENCOUNTER 2022-04-16 06:14 | Inpatient (IN) | payer MEDICARE, MEDICAID, SELFPAY ==
[2022-04-16] VITALS (10 sets, daily range): BP systolic 145–217; BP diastolic 67–131; PULSE 72–104; RESP 16–24; TEMP 36.6–39.6; O2SAT 94–99; BMI 53.1; BMI 57.6
--- NOTE | 2022-04-16 06:24 | W.ED.ABDPA2 ---
HPI - Abdominal Pain General: Chief Complaint: Abdominal Pain Stated Complaint: abd pain Time Seen by Provider: 04/16/22 06:24 Source: patient Mode of arrival: EMS Limitations: no limitations History of Present Illness: This patient returns to the emergency department because of persistent nausea and vomiting and upper abdominal pain. The symptoms apparently began approximately 2 weeks ago. She states they began with just body aches chills and fever and vomiting. She states they have been a daily occurrence since their onset. She has been in this emergency department 2 times over the past 3 days with extensive work-up without any etiology to her symptoms known. She now returns because of persistent symptoms. She states that over the same period of time she has been lightheaded and dizzy as well. She has a history of COPD-oxygen dependent, CHF, factor V Leyden deficiency and diabetes. She takes apixaban as well as her other routine medications however she is been vomiting quite a bit so it is unclear how much of her medications she has kept in her stomach. He denies any known exposure to infectious disease. She is unimmunized against COVID-19. She has had no recent travel, no recent antibiotic use etc. She has had a prior cholecystectomy as well as low transverse . She states been there is been no blood in her emesis. She has had no weakness other than generalized malaise and weakness. She denies any loss of bowel or bladder control perineal numbness focal motor weakness etc. MD elicited complaint: abdominal pain Location: Epigastric and LUQ Severity: mild Quality: cramping and fullness Radiation: none Associated Symptoms: Reports chills, fever(s), nausea and vomiting; Denies diarrhea, dysuria, hematochezia, hematemesis, fecal incontinence and syncope Review of Systems Const: Reports: fever(s), chills, body aches and malaise Eyes: Denies: change in vision or blurry vision ENMT: Denies: throat pain, odynophagia or change in hearing Card: Reports: chest pain and lightheadedness; Denies: palpitations, irregular heart rhythm, edema, swelling of feet/ankles or syncope Resp: Denies: productive cough, non-productive cough or wheezing GI: Reports: abdominal pain, nausea and vomiting; Denies: hematemesis, diarrhea, fecal incontinence or hematochezia : Reports: oliguria; Denies: flank pain, difficulty voiding, dysuria or urinary frequency Musc: Reports: back pain; Denies: neck pain, extremity pain, extremity swelling or joint pain Skin/Breast: Denies: rash Neuro: Reports: headache(s), dizziness and vertigo; Denies: numbness in extremities, weakness in extremities, sensory changes or difficulty walking Psych: Denies: anxiety or depression Kobe/Lymph: Reports: easy bruising; Denies: easy bleeding PFSH ED PFSH: Medical History Acute exacerbation of CHF (congestive heart failure) Acute exacerbation of CHF (congestive heart failure) Advised to contact social services Atrial flutter Benign hypertension Breast pain Chronic major depressive disorder Chronic obstructive pulmonary disease, unspecified CKD (chronic kidney disease) CKD (chronic kidney disease) COPD, moderate Coronary artery fistula Diabetic neuropathy associated with type 2 diabetes mellitus Dietary noncompliance Diverticulosis Environmental and seasonal allergies Essential tremor Fibromyalgia Fracture of fibula, left, closed High risk medication use IBS (irritable bowel syndrome) Inflammatory arthritis Mobility impaired Noncompliance with diabetes treatment Not consistent with diet Obesity Pain of both breasts Polyarthralgia Reduced ejection fraction concurrent with and due to chronic heart failure Situational anxiety SOB (shortness of breath) SOB (shortness of breath) Type 2 diabetes mellitus with diabetic chronic kidney disease Vitamin D deficiency Surgical History History of section 4 times History of cholecystectomy History of hysterectomy with BSO History of tonsillectomy Hx of colonoscopy Hx of esophagogastroduodenoscopy Family History Brother Bleeding disorder CAD (coronary artery disease) Father CAD (coronary artery disease) Chronic kidney disease (CKD) Mother CAD (coronary artery disease) Cancer Diabetes Family/Other Cancer Other CHF (congestive heart failure) Heart disease Hypertension Denies family history of Clotting disorder Dementia Suicide Anesthesia complication Lung disease Stroke Social History Smoking and tobacco status: former smoker Second hand smoke exposure: No Smoking risk assessment/counseling performed?: No Alcohol intake: never Desire information about alcohol rehabilitation?: No Counseling given: No Desire information about substance/drug rehabilitation?: No Counseling given: No Adopted: No Caregiver/support person: Yes Lives independently: No Household members: children and other Details: Son, sometimes grandson Housing: House Marital status: Single service: No Current occupational status: disabled History of recent travel: No Current gender identity: Female Physical Exam Narrative: EXAM NARRATIVE: Patient is alert makes good eye contact answers questions in a goal-directed fashion. Const: COMMON NORMALS: patient oriented x3 and alert GENERAL APPEARANCE: cooperative NUTRITIONAL APPEARANCE: overweight ORIENTATION/CONSCIOUSNESS: Yes awake HENMT: COMMON NORMALS: normocephalic and atraumatic HEAD & SCALP: normocephalic and atraumatic FACE & SINUS: normal facial exam, sinuses nontender and face symmetric MOUTH: other (Dry mucous membranes) THROAT: posterior oropharynx normal Eye: COMMON NORMALS: Equal, round and reactive pupils present, EOMs intact bilaterally and no scleral icterus PUPIL: Yes Equal, round and reactive pupils present OTHER: No nystagmus at rest Neck/C-Spine: COMMON NORMALS: full ROM, no lymphadenopathy, supple, no meningeal signs, no JVD, Thyroid normal and No carotid bruits THYROID: Thyroid normal Chest: COMMONS NORMALS: normal inspection of the chest and normal palpation of entire chest wall Resp: COMMON NORMALS: normal respiratory effort, No retractions, No use of accessory muscles and clear to auscultation bilaterally EFFORT & INSPECTION: Yes able to speak in complete sentences AUSCULTATION: clear to auscultation bilaterally Cardio: COMMON NORMALS: no JVD, regular rate, regular rhythm, No murmurs present (Cardio) and Peripheral pulses 2+ throughout RATE: regular rate RHYTHM: regular rhythm PERIPHERAL PULSES: Peripheral pulses 2+ throughout GI: OTHER: Abdominal examination reveals protuberant abdomen abdomen with palpable tenderness in the epigastrium and as well as some in the left upper quadrant. No masses or hernias noted. She has no rebound or guarding. She has no skin rashes noted. : COMMON NORMALS: Yes no CVA tenderness BLADDER/KIDNEY EXAM: Yes no CVA tenderness Back/Pelvis: COMMON NORMALS: no CVA tenderness, thoracic and lumbar spine normal to inspection, thoraco-lumbar ROM normal and straight leg raise negative bilaterally Extremity: COMMON NORMALS: normal to inspection, full ROM, capillary refill normal, no joint enlargement and no pedal edema NARRATIVE EXTREMITY EXAM: Tenderness in left popliteal fossa. No palpable cords. Neuro: COMMON NORMALS: patient oriented x3, moves all extremities, no focal motor deficits, no sensory deficits noted and deep tendon reflexes 2+ bilaterally SENSORIUM/ORIENTATION: Yes alert MENINGEAL SIGNS: Yes no meningeal signs CRANIAL NERVES: Yes CN normal except as noted COORDINATION/BALANCE: [id number]-rl-[id number] test normal and vium-xp-[id number] test normal SPEECH: speech normal MOTOR EXAM: Pronator motor function not present and no tremor noted COORDINATION: gtpgfr-ok-seat test normal and ztdc-yk-[id number] test normal Psych: COMMON NORMALS: mental status grossly normal Skin: COMMON NORMALS: no rashes or lesions noted, no wounds, turgor normal and no jaundice GENERAL SKIN EXAM: no rashes or lesions noted and turgor normal Course Consultations: Consultation #1: Discussed with attending hospitalist Dr. Ordoñez. We reviewed her current work-up. We will go ahead and place her admission for further treatment, additional evaluation is indicated. Time: 11:23 Vital Signs: Vital signs: Vital Signs Temperature 103.3 F H 04/16/22 06:14 Pulse Rate 83 04/16/22 09:17 Respiratory Rate 20 H 04/16/22 09:17 Blood Pressure 153/69 04/16/22 09:17 Pulse Oximetry 98 04/16/22 09:17 MDM - Abdominal Pain Medical Decision Making Patient with 3 ER visits over the past several days for 2-week history of nausea and vomiting. Work-up in the previous has not been revealing as to any specific etiology to her symptoms. Work-up was broadened a bit today to include CTA to evaluate for thromboembolic issues given her elevation in her D-dimer. This was reassuring. She has not had any emesis since arrival to the emergency department but she has CT findings which suggest groundglass appearance which has been a seen a quinone for COVID during this pandemic... Her antigen is negative we will going proceed with a PCR as well. At this point given her persistent symptoms without a definitive diagnosis we will proceed with admission for further evaluation. The headache symptoms she was having earlier much improved and it seems to be concomitant with a reduction in her blood pressure that is occurred since observation in the emergency department. Otherwise no new or focal clinical findings on evaluation. Medical Records I reviewed the patient's medical records. Lab Data I reviewed the patient's lab results. : 04/16/22 06:30 04/16/22 06:30 Labs/Radiology: Radiology Impressions Chest/Abdomen/Pelvis CTA 04/16/22 09:07 IMPRESSION: 1. Moderate diffuse bilateral pneumonitis. No focal consolidation. 2. No pleural effusion. 3. No central pulmonary embolism. Beyond the proximal lobar branches the opacification is significantly limited due to poor contrast bolus and the patient's body habitus. 4. A few scattered diverticula without evidence for acute diverticulitis. 5. Prior cholecystectomy. 6. No bile duct dilatation or renal obstruction. Laboratory Results WBC 6.5 10^3/uL (4.0-10.0) 04/16/22 06:30 RBC 4.00 10^6/uL (4.1-5.3) L 04/16/22 06:30 Hgb 11.5 g/dL (11.5-15.3) 04/16/22 06:30 Hct 33.2 % (37.0-47.0) L 04/16/22 06:30 MCV 83.0 fl (81-99) 04/16/22 06:30 MCH 28.8 pg (28.0-34.0) 04/16/22 06:30 MCHC 34.6 g/dL (30.0-36.0) 04/16/22 06:30 RDW 13.2 % (12.1-15.1) 04/16/22 06:30 Plt Count 72 10^3/cmm (130-400) L 04/16/22 06:30 MPV 12.8 fL (7.4-10.4) H 04/16/22 06:30 Lymph % (Auto) Not Reportable 04/16/22 06:30 Whitley % (Auto) Not Reportable 04/16/22 06:30 Lymph # (Auto) Not Reportable 04/16/22 06:30 Whitley # (Auto) Not Reportable 04/16/22 06:30 Total Counted 100 (0-100) 04/16/22 06:30 Atypical Lymphs % 1.0 % (0-5) 04/16/22 06:30 Absolute Neutrophils 5.9 10^3/cmm (1.4-6.5) 04/16/22 06:30 Segmented Neutrophils 80 % 04/16/22 06:30 Abs Segm Neuts (Man) 5.2 10/cmm (1.6-7.1) 04/16/22 06:30 Band Neutrophils 11.0 % 04/16/22 06:30 Abs Band Neuts (Man) 0.7 10^3/cmm (0.0-1.2) 04/16/22 06:30 Absolute Lymphocytes 0.3 10^3/cmm (1.2-3.4) L 04/16/22 06:30 Lymphocytes (Manual) 4 % 04/16/22 06:30 Monocytes (Manual) 4.0 % 04/16/22 06:30 Absolute Monocytes 0.3 10^3/cmm (0.1-0.6) 04/16/22 06:30 Eosinophils (Manual) 0 % 04/16/22 06:30 Absolute Eosinophils 0.0 10^3/cmm (0.0-0.7) 04/16/22 06:30 Basophils (Manual) 0.0 % 04/16/22 06:30 Absolute Basophils 0.0 10^3/cmm (0.0-0.2) 04/16/22 06:30 Metamyelocytes 0.0 % 04/16/22 06:30 Myelocytes 0.0 % 04/16/22 06:30 Promyelocytes 0.0 % 04/16/22 06:30 Nucleated RBCs 0.0 /100WBC (0-1) 04/16/22 06:30 Platelet Estimate Decreased (Normal) L 04/16/22 06:30 D-Dimer 3.32 ug/mIFEU (0-0.59) H 04/16/22 07:16 Specimen Type Arterial 04/16/22 07:20 Sample Site Brachial, right 04/16/22 07:20 ABG pH 7.49 (7.35-7.45) H 04/16/22 07:20 ABG pCO2 37.7 mmHg (35-45) 04/16/22 07:20 ABG pO2 69.7 mmHg (80.0-100.0) L 04/16/22 07:20 ABG HCO3 29.0 mmol/L (22-26) H 04/16/22 07:20 ABG Base Excess 5.4 mmol/L (-2.0-2.0) H 04/16/22 07:20 Sharad Test Pos 04/16/22 07:20 Hematocrit 35.3 % (37-47) L 04/16/22 07:20 O2 Delivery Device Nc 04/16/22 07:20 O2 Liters/Min 2.0 % 04/16/22 07:20 FiO2 28.0 % 04/16/22 07:20 Jewel Hole Gauger ID Ofelia 04/16/22 07:20 Sodium 128 mmol/L (136-145) L 04/16/22 06:30 Potassium 3.5 mmol/L (3.5-5.1) 04/16/22 06:30 Chloride 90 mmol/L (98-107) L 04/16/22 06:30 Carbon Dioxide 27 mmol/L (22-29) 04/16/22 06:30 Anion Gap 14.5 (5-19) 04/16/22 06:30 BUN 31 mg/dL (8-23) H 04/16/22 06:30 Creatinine 1.5 mg/dL (0.5-0.9) H 04/16/22 06:30 GFR Calculation 35.0 mL/min (90-130) L 04/16/22 06:30 Glucose 186 mg/dL (65-115) H 04/16/22 06:30 Calculated Osmolality 277 mOsm/kg (285-295) L 04/16/22 06:30 Lactate 1.2 mmol/L (0.5-2.2) 04/16/22 06:30 Calcium 8.4 mg/dL (8.5-10.5) L 04/16/22 06:30 Total Bilirubin 0.7 mg/dL (0.15-1.2) 04/16/22 06:30 AST 64 U/L (0-32) H 04/16/22 06:30 ALT 43 U/L (0-33) H 04/16/22 06:30 Alkaline Phosphatase 103 IU/L (35-105) 04/16/22 06:30 Troponin T Gen 5 ng/L 32 ng/L (0-10) H 04/16/22 06:30 NT-Pro-B Natriuret Pep 5819 pg/mL (0-125) H 04/16/22 06:30 Total Protein 5.9 g/dL (6.6-8.7) L 04/16/22 06:30 Albumin 2.9 g/dL (3.5-5.2) L 04/16/22 06:30 Globulin 3.0 g/dL (1.3-4.6) 04/16/22 06:30 Lipase 49 U/L (13-60) 04/16/22 06:30 SARS-CoV-2 Ag (Rapid) Negative (Negative) 04/16/22 07:23 EKG Data EKG 1: I personally reviewed and interpreted this EKG as follows: EKG interpretation time: 07:07 Interpretation: Resting EKG reveals a heart rate of 101 bpm. Consistent with sinus tachycardia. She does have a right bundle branch block pattern with a prolonged QRS. She has a normal QTc interval. She has no acute ST-T wave changes. Baseline EKG is unchanged from prior tracings available. Discharge Plan Discharge Patient Disposition: Admitted As Inpatient Clinical Impression: Nausea & vomiting, Chronic obstructive pulmonary disease, unspecified, Type 2 diabetes mellitus with diabetic chronic kidney disease Condition: Stable Prescriptions: No Action (DME) pen needle, diabetic [TechLITE Pen Needle] 31 gauge x 5/16 needle See Rx Instructions .ROUTE .MEDSUPPLY Qty: 1,200 0RF Rx Instructions: As directed (DME) blood-glucose meter [Blood Glucose Monitoring] Kit See Rx Instructions .ROUTE .MEDSUPPLY Qty: 1 0RF Rx Instructions: As directed, May substitute for any brand (DME) wheelchair cushions See Rx Instructions .Route .MEDSUPPLY Qty: 1 0RF Rx Instructions: As directed (DME) Bariatric emy lift See Rx Instructions .Route .MEDSUPPLY Qty: 1 0RF Rx Instructions: BMI 57.5% weight 325# (DME) Alternating pressure mattress and pressure pump See Rx Instructions .Route .MEDSUPPLY Qty: 1 0RF Rx Instructions: As directed dicyclomine 20 mg tablet 20 mg PO QID Qty: 120 3RF bumetanide 2 mg tablet 2 mg PO BID Qty: 60 1RF (DME) compression socks, medium Misc See Rx Instructions .Route Qty: 2 0RF Rx Instructions: As directed hydralazine 50 mg tablet 25 mg PO BID Qty: 100 3RF metoprolol tartrate 50 mg tablet 50 mg PO Q12H Qty: 180 3RF albuterol sulfate [ProAir HFA] 90 mcg/actuation HFA aerosol inhaler 2 puff INHALATION Q4H PRN (Reason: shortness of breath or wheezing) Qty: 8.5 2RF fluoxetine 40 mg capsule 40 mg PO DAILY@2099 Qty: 30 2RF Eliquis 5 mg tablet 5 mg PO BID@0900,2100 Qty: 60 2RF clindamycin phosphate 1 % lotion See Rx Instructions .ROUTE .COMPLEX Qty: 60 1RF Dose Instruction: APPLY TOPICALLY TWICE DAILY NEEDED FOR SKIN IRRITATION Rx Instructions: APPLY TOPICALLY TWICE DAILY NEEDED FOR SKIN IRRITATION triamcinolone acetonide 0.1 % ointment 1 applic TOPICAL DAILY PRN (Reason: itching) Qty: 30 0RF methocarbamol 500 mg tablet 500 mg PO TID PRN (Reason: Muscle Spasm) Qty: 90 2RF hydroxychloroquine 200 mg tablet 200 mg PO BID Qty: 60 0RF cholecalciferol (vitamin D3) [Vitamin D3] 125 mcg (5,000 unit) Tablet 125 mcg PO DAILY 0RF insulin aspart U-100 [Novolog Flexpen U-100 Insulin] 100 unit/mL (3 mL) insulin pen See Rx Instructions .ROUTE .COMPLEX 0RF Rx Instructions: SLIDING SCALE WITH MEALS PRN hydroxyzine pamoate 25 mg capsule 50 mg PO BEDTIME PRN (Reason: Anxiety) 0RF Levemir FlexTouch U-100 Insuln 100 unit/mL (3 mL) insulin pen 125 unit SUBCUT QAM 0RF acetaminophen 325 mg tablet 325 - 650 mg PO Q6H PRN (Reason: Pain) 0RF isosorbide mononitrate 60 mg tablet extended release 24 hr 60 mg PO DAILY 0RF pantoprazole 40 mg tablet,delayed release (DR/EC) 40 mg PO DAILY PRN (Reason: Heartburn) 0RF carvedilol 3.125 mg tablet 3.125 mg PO BID 0RF Label Comments: PT STATES SHE TAKES 3.125MG BID FILLED 12/15/21 EXT MED HISTORY SHOWS 12.5MG BID FILLED 03/23/22 30D/S prednisone 2.5 mg tablet 2.5 mg PO DAILY 0RF nitroglycerin [Nitrostat] 0.4 mg Tablet, Sublingual 0.4 mg SUBLINGUAL Q5M PRN (Reason: Chest Pain) 0RF Rx Instructions: do not exceed 3 doses per episode magnesium oxide 400 mg magnesium Tablet 400 mg PO BEDTIME PRN (Reason: Muscle Spasm) 0RF Vitamin B-12 1 tab PO DAILY 0RF fluoxetine 20 mg capsule 20 mg PO DAILY@08 0RF Rx Instructions: continue 40mg 2100 dose eszopiclone [Lunesta] 1 mg tablet 1 mg PO BEDTIME PRN (Reason: Sleep) 0RF potassium chloride 20 mEq tablet extended release 20 meq PO .THREE TIMES WEEKLY 0RF metoclopramide HCl [Reglan] 10 mg tablet 10 mg PO Q6H PRN (Reason: nausea and vomiting) Qty: 10 0RF furosemide 80 mg tablet 80 mg PO DAILY 0RF primidone 50 mg Tablet 50 mg PO DAILY 0RF Referrals: Lorenzo Muller, [employer]ACHINE OPERATOR-C [Primary Care Provider] - Coding Level of Care Code ED Custom Garment Designer for Danielg Fwd Exam Comprehensive
[2022-04-16] MEDS: ondansetron 2 mg/ML SDV 2 mL 4 MG IVP ×2 (06:48→16:16)
--- NOTE | 2022-04-16 06:51 | ECG_ITS ---
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 Measurements Intervals [place] Rate: 101 P: 79 TX: 190 QRS: 268 QRSD: 165 T: 29 QT: 390 QTc: 506 Interpretive Statements SINUS TACHYCARDIA WITH OCCASIONAL SUPRAVENTRICULAR PREMATURE COMPLEXES RIGHT AXIS DEVIATION [QRS AXIS > 100] RIGHT BUNDLE BRANCH BLOCK [120+ ms QRS DURATION, UPRIGHT V1, 40+ ms S IN I/aVL/V4/V5/V6] Compared to ECG 01/04/2022 02:52:19 Right-axis deviation now present Sinus rhythm no longer present First degree AV block no longer present Left anterior fascicular block no longer present Electronically Signed On 04-16-2022 22:15:12 CDT by Sammy Aquino M.D. [id number]
[2022-04-16 07:06] LABS: Hematocrit 33.2 % (37.0-47.0); Hemoglobin 11.5 g/dL (11.5-15.3); Mean Corpuscular HGB Conc 34.6 g/dL (30.0-36.0); Mean Corpuscular Hemoglobin 28.8 pg (28.0-34.0); Mean Platelet Volume 12.8 fL (7.4-10.4); Platelet Count 72 10^3/cmm (130-400); Red Cell Distribution Width 13.2 % (12.1-15.1); White Blood Count 6.5 10^3/uL (4.0-10.0)
[2022-04-16] MEDS: sodium chloride 0.9% 500 ML IV (07:12)
[2022-04-16 07:17] LABS: Lactate (Lactic Acid level) 1.2 mmol/L (0.5-2.2)
[2022-04-16 07:19] LABS: Troponin T (5th) Once 32 ng/L (0-10)
--- NOTE | 2022-04-16 07:20 | PC.NURSE ---
Shift report received. Pt resting in bed, on 2L O2 via NC. Care assumed.
[2022-04-16 07:27] LABS: Alanine Aminotransferase 43 U/L (0-33); Albumin Level 2.9 g/dL (3.5-5.2); Alkaline Phosphatase 103 IU/L (35-105); Anion Gap 14.5 (5-19); Aspartate Amino Transferase 64 U/L (0-32); Blood Urea Nitrogen 31 mg/dL (8-23); Calcium 8.4 mg/dL (8.5-10.5); Carbon Dioxide 27 mmol/L (22-29); Chloride 90 mmol/L (98-107); Glucose 186 mg/dL (65-115); Lipase 49 U/L (13-60); NT Pro B Type Natriuretic Pept 5819 pg/mL (0-125); Osmolality Calculated 277 mOsm/kg (285-295); Potassium 3.5 mmol/L (3.5-5.1); Sodium 128 mmol/L (136-145); Total Bilirubin 0.7 mg/dL (0.15-1.2); Total Protein 5.9 g/dL (6.6-8.7)
--- NOTE | 2022-04-16 07:27 | PC.NURSE ---
Verbal orders received from Dr. Darby to cancel order for Zofran 4 mg IM. Med non-administered in JAN.
[2022-04-16 07:31] LABS: ABG PCO2 37.7 mmHg (35-45); ABG PH Result 7.49 (7.35-7.45); Arterial Blood Gas Hematocrit 35.3 % (37-47); Base Excess ABG 5.4 mmol/L (-2.0-2.0); Blood Gas Allen Test Pos; Blood Gas Sample Type Arterial; PO2 ABG 69.7 mmHg (80.0-100.0)
[2022-04-16 07:32] LABS: Blood Gas Operator Identificat MONRO; Blood Gas Sample Site Brachial, right; Oxygen Device NC
[2022-04-16 07:37] LABS: Slide Review Slide Review Perform
[2022-04-16 07:39] LABS: Absolute Neutrophil 5.9 10^3/cmm (1.4-6.5); Absolute Segmented Neutrophil 5.2 10/cmm (1.6-7.1); Band Neutrophils Absolute 0.7 10^3/cmm (0.0-1.2); Eosinophils 0 %; Lymphocytes 4 %; Lymphocytes Absolute 0.3 10^3/cmm (1.2-3.4); Monocytes Absolute 0.3 10^3/cmm (0.1-0.6); Platelet Estimate Decreased (Normal); Segmented Neutrophils 80 %; Total Cells Counted 100 (0-100)
[2022-04-16] MEDS: acetaminophen 325 mg Tablet 650 MG PO ×2 (07:48→18:17)
[2022-04-16 07:52] LABS: D Dimer 3.32 ug/mIFEU (0-0.59)
[2022-04-16 08:07] LABS: SARS Covid-2 Antigen Negative (Negative)
--- NOTE | 2022-04-16 09:07 | CT_ITS ---
WS: [id number] CTA CHEST WITH CT ABDOMEN AND PELVIS. HISTORY: Nausea and vomiting for 2 weeks. Gastroenteritis. TECHNIQUE: CT angiogram is performed through the chest. Additional imaging is performed through the a bdomen and pelvis with IV contrast. Sagittal and coronal reformats have been submitted. MIP imaging also reviewed. All CT scans at [facility] use at least one of these dose optimization techniqu es: automated exposure control; mA and/or kV adjustment per patient size (includes targeted exams whe re dose is matched to clinical indication); or iterative reconstruction. Contrast: Visipaque 95 cc IV. DLP: 2227.57 mGy.cm COMPARISON: 04/14/2022. Chest CTA: Very limited opacification of the pulmonary arteries to the injection and body habitus. Th ere is a large amount of artifact of the thorax from the patient's soft tissue. Centrally there is no pulmonary embolism. Beyond the proximal lobar branches the opacification is suboptimal. Diffuse scat tered bilateral groundglass opacifications in all lobes. No dense area of consolidation. Heart size i s moderately enlarged. No pericardial or pleural effusions. There are a few mildly prominent mediasti nal and hilar lymph nodes. These may be reactive. Atherosclerosis aorta. Small hiatal hernia. Abdomen CT: Mild hepatomegaly. Normal size spleen. Prior cholecystectomy. No bile duct dilatation. Pa ncreas is negative. No adrenal mass. Mild bilateral perinephric stranding with no obstruction. Mild a therosclerosis aorta. No free fluid or free air. No GI tract obstruction. There are a few scattered diverticula throughout the colon. No evidence for acute diverticulitis. The appendix is normal. Pelvic CT: No free fluid or adenopathy. There are several calcifications in the pelvis which are prob ably phleboliths. No renal obstruction or ureteral dilatation. Well-distended urinary bladder. Thoracolumbar degenerative disc disease and spondylosis. No acute fractures are identified. CT/CT angio chest abdomen pelvis IMPRESSION: 1. Moderate diffuse bilateral pneumonitis. No focal consolidation. 2. No pleural effusion. 3. No central pulmonary embolism. Beyond the proximal lobar branches the opaci fication is significantly limited due to poor contrast bolus and the patient's body habitus. 4. A few scattered diverticula without evidence for acute diverticulitis. 5. Prior cholecystectomy. 6. No bile duct dilatation or renal obstruction.
[2022-04-16] MEDS: iodixanol 320 mg/mL 100mL Btl IV (10:12)
--- NOTE | 2022-04-16 11:14 | PM.HP ---
Providers/Chief Complaint Admitting Physician: Manuel Ordoñez Primary Care Provider: PARAG Mensah Chief Complaint: abd pain History of Present Illness Jennifer Novak is a 66 year old female with past medical history significant for atrial flutter, hypertension, depression, COPD with chronic hypoxic respiratory failure on 2 L baseline diabetes mellitus, and chronic diastolic heart failure with preserved ejection fraction who presents to the emergency department with intractable nausea, emesis, and abdominal pain x2 weeks. Endorses associated symptoms of back pain, headaches, edema, fevers and chills. Patient reports symptoms have continued to progressively worsen daily. She describes the emesis as almost constant. She describes the abdominal pain is epigastric and sharp. Describes as intermittent. Rates it 8 out of 10. Of note, she has been evaluated the emergency department multiple times recently for similar complaints. On 04/12 CT abdomen pelvis revealed no acute abnormalities. Repeat abdominal pelvic CT on 04/14 again showed no acute abnormalities. CTA CAP on 04/16 revealed diffuse bilateral pneumonitis, but no pulmonary embolism although exam limited due to body habitus. She reports she lives with her son who has not experienced similar symptoms. She denies any recent sick contacts. Denies recent antibiotics. Denies any major recent changes to her diet. She denies cough, chest pain, palpitations or shortness of breath. Patient is on prednisone and hydroxychloroquine. She states she does not know how long she has been on these medications or who prescribed them. She also does not know why she is on these medications. Review of Systems Narrative: Positive for generalized malaise and fatigue. Positive for chronic left arm pain following fracture in December. Otherwise, a complete review of systems was obtained and is negative except as stated in HPI. Medications/Allergies Home Medications Medication Instructions Recorded Confirmed Last Taken Type pen needle, diabetic 31 gauge x #1,200 each 12/20/19 04/16/22 Unknown History 04/05 (TechLITE Pen Needle) blood-glucose meter (Blood Glucose #1 each 05/16/20 04/16/22 Unknown Rx Monitoring) cholecalciferol (vitamin D3) 125 125 mcg PO DAILY 05/14/21 04/16/22 04/11/22 History mcg (5,000 unit) tablet (Vitamin D3) insulin aspart U-100 100 unit/mL See Rx Instructions .ROUTE .COMPLEX 05/14/21 04/16/22 2 Days Ago History (3 mL) subcutaneous pen (Novolog ~07/08/21 Flexpen U-100 Insulin aspart) compression socks, medium #2 ea 12/01/21 04/16/22 Unknown Rx acetaminophen 325 mg tablet 325 - 650 mg PO Q6H PRN 12/13/21 04/16/22 Unknown History isosorbide mononitrate 60 mg 60 mg PO DAILY 12/13/21 04/16/22 04/11/22 History tablet,extended release 24 hr pantoprazole 40 mg tablet,delayed 40 mg PO DAILY PRN 12/13/21 04/16/22 12/12/21 History release hydroxyzine pamoate 25 mg capsule 50 mg PO BEDTIME PRN 01/06/22 04/16/22 Unknown History insulin detemir U-100 100 unit/mL 125 unit SUBCUT QAM 01/06/22 04/16/22 04/12/22 History (3 mL) subcutaneous pen (Levemir 80 UNITS FlexTouch U-100 Insulin) wheelchair cushions #1 ea 01/12/22 04/16/22 Unknown Rx Bariatric emy lift #1 ea 01/14/22 04/16/22 Unknown Rx hydralazine 50 mg tablet 25 mg PO BID #100 tab 01/18/22 04/16/22 04/11/22 Rx metoprolol tartrate 50 mg tablet 50 mg PO Q12H #180 tab 01/18/22 04/16/22 04/11/22 Rx albuterol sulfate 90 mcg/actuation 2 puff INHALATION Q4H PRN #8.5 gm 02/03/22 04/16/22 Unknown Rx aerosol inhaler (ProAir HFA) apixaban 5 mg tablet (Eliquis) 5 mg PO BID@0900,2100 #60 tab 02/03/22 04/16/22 04/11/22 Rx clindamycin phosphate 1 % lotion See Rx Instructions .ROUTE 02/03/22 04/16/22 Unknown Rx .COMPLEX #60 milliliter fluoxetine 40 mg capsule 40 mg PO DAILY@2100 #30 cap 02/03/22 04/16/22 04/11/22 Rx methocarbamol 500 mg tablet 500 mg PO TID PRN #90 tab 02/03/22 04/16/22 Unknown Rx triamcinolone acetonide 0.1 % 1 applic TOPICAL DAILY PRN #30 gm 02/03/22 04/16/22 Unknown Rx topical ointment Alternating pressure mattress and #1 ea 02/12/22 04/16/22 Unknown Rx pressure pump bumetanide 2 mg tablet 2 mg PO BID #60 tab 02/23/22 04/16/22 04/11/22 Rx hydroxychloroquine 200 mg tablet 200 mg PO BID #60 tab 02/25/22 04/16/22 04/11/22 Rx dicyclomine 20 mg tablet 20 mg PO QID #120 tab 03/29/22 04/16/22 Unknown Rx Vitamin B-12 1 tab PO DAILY 04/12/22 04/16/22 Unknown History carvedilol 3.125 mg tablet 3.125 mg PO BID 04/12/22 04/16/22 04/11/22 History eszopiclone 1 mg tablet (Lunesta) 1 mg PO BEDTIME PRN 04/12/22 04/16/22 Unknown History fluoxetine 20 mg capsule 20 mg PO DAILY@08 04/12/22 04/16/22 04/11/22 History magnesium oxide 400 mg PO BEDTIME PRN 04/12/22 04/16/22 Unknown History metoclopramide HCl 10 mg tablet 10 mg PO Q6H PRN #10 tab 04/12/22 04/16/22 Unknown Rx (Reglan) nitroglycerin 0.4 mg sublingual 0.4 mg SUBLINGUAL Q5M PRN 04/12/22 04/16/22 Unknown History tablet (Nitrostat) potassium chloride 20 mEq 20 meq PO .THREE TIMES WEEKLY 04/12/22 04/16/22 Unknown History tablet,extended release prednisone 2.5 mg tablet 2.5 mg PO DAILY 04/12/22 04/16/22 04/11/22 History furosemide 80 mg tablet 80 mg PO DAILY 04/16/22 04/16/22 Unknown History primidone 50 mg tablet 50 mg PO DAILY 04/16/22 04/16/22 Unknown History Allergies Allergy/AdvReac Type Severity Reaction Status Date / Time acetaminophen [From [place]] Allergy Unknown Verified 04/16/22 09:43 bacitracin Allergy ADR-Nausea Verified 04/16/22 09:43 codeine Allergy ADR-Nausea Verified 04/16/22 09:43 hydrocodone [From [place]] Allergy Unknown Verified 04/16/22 09:43 Latex, Natural Rubber Allergy Unknown Verified 04/16/22 09:43 morphine Allergy ADR-Itching Verified 04/16/22 09:43 neomycin Allergy ALGY-Rash Verified 04/16/22 09:43 [From Neosporin ([id number])] oxycodone Allergy Unknown Verified 04/16/22 09:43 polymyxin B Allergy ALGY-Rash Verified 04/16/22 09:43 [From Neosporin ([id number])] Sulfa (Sulfonamide Allergy ADR-Nausea Verified 04/16/22 09:43 Antibiotics) sulfamethoxazole Allergy Unknown Verified 04/16/22 09:43 [From Bactrim] trimethoprim [From Bactrim] Allergy Unknown Verified 04/16/22 09:43 PFSH Acute PFSH: Medical History Acute exacerbation of CHF (congestive heart failure) Acute exacerbation of CHF (congestive heart failure) Advised to contact social media marketing analyst Atrial flutter Benign hypertension Breast pain Chronic major depressive disorder Chronic obstructive pulmonary disease, unspecified CKD (chronic kidney disease) CKD (chronic kidney disease) COPD, moderate Coronary artery fistula Diabetic neuropathy associated with type 2 diabetes mellitus Dietary noncompliance Diverticulosis Environmental and seasonal allergies Essential tremor Fibromyalgia Fracture of fibula, left, closed High risk medication use IBS (irritable bowel syndrome) Inflammatory arthritis Mobility impaired Noncompliance with diabetes treatment Not consistent with diet Obesity Pain of both breasts Polyarthralgia Reduced ejection fraction concurrent with and due to chronic heart failure Situational anxiety SOB (shortness of breath) SOB (shortness of breath) Type 2 diabetes mellitus with diabetic chronic kidney disease Vitamin D deficiency Surgical History History of section 4 times History of cholecystectomy History of hysterectomy with BSO History of tonsillectomy Hx of colonoscopy Hx of esophagogastroduodenoscopy Family History Brother Bleeding disorder CAD (coronary artery disease) Father CAD (coronary artery disease) Chronic kidney disease (CKD) Mother CAD (coronary artery disease) Cancer Diabetes Family/Other Cancer Other CHF (congestive heart failure) Heart disease Hypertension Denies family history of Clotting disorder Dementia Suicide Anesthesia complication Lung disease Stroke Social History Smoking and tobacco status: former smoker Second hand smoke exposure: No Smoking risk assessment/counseling performed?: No Alcohol intake: never Desire information about alcohol rehabilitation?: No Counseling given: No Desire information about substance/drug rehabilitation?: No Counseling given: No Adopted: No Caregiver/support person: Yes Lives independently: No Household members: children and other Details: Son, sometimes grandson Housing: House Marital status: Single service: No Current occupational status: disabled History of recent travel: No Current gender identity: Female Vitals/I&O/Wt Last Vital Signs Temp 103.3 F H 04/16/22 06:14 Pulse 83 04/16/22 09:17 Resp 20 H 04/16/22 09:17 BP 153/69 04/16/22 09:17 Pulse Ox 98 04/16/22 09:17 Weight last 48 hrs Weight 136.078 kg Physical Exam Narrative: General: Patient is awake. Appears ill. Febrile. Head: Normocephalic. Atraumatic. EOM intact. Neck: JVD difficult to assess due to body habitus. Cardiovascular: RRR. No gallops. No murmurs. 1+ lower extremity edema Lungs: Breath sounds diminished in bilateral bases. No wheezing. No crackles. On 1L NC. Skin: No jaundice. No rashes. Abdomen: Hypoactive bowel sounds. Obese. TTP in epigastric region. Genito Urinary: Genital exam not performed since complaints not related. Rectal: Rectal exam not performed since no symptoms indicated blood loss. Extremeties: No cyanosis or clubbing. Musculoskeletal: No swollen or erythematous joints. Neurological: Moves all 4 extremities. No myoclonus. Data : 04/16/22 06:30 04/16/22 06:30 Micro: Microbiology 04/16/22 07:16 Blood Culture - Preliminary Blood SPECIMEN COLLECTED 04/16/22 06:30 Blood Culture - Preliminary Blood SPECIMEN COLLECTED A&P Assessment and plan (1) Intractable nausea and vomiting: -Associated with epigastric pain, back pain, fever, and headache -Labs significant for hyponatremia, hypochloremia, ROSEMARIE, thrombocytopenia, transaminitis, acute myocardial injury, and elevated BNP -Procalcitonin and CRP ordered, found to be significantly elevated concerning for infection -Obtain tick panel, respiratory pathogen panel -Start emperic antibiotics with Zosyn -COVID-19 PCR is pending -Anti-emetics as needed -PPI -Clear liquid diet Status: Acute (2) ROSEMARIE (acute kidney injury): -Start maintenance fluids -Daily assessment of renal function -Urine electrolytes -Avoid nephrotoxins -Strict I&Os Status: Acute (3) Pneumonitis: -Unclear if this is significantly contributing to presentation or incidental finding -Prior CT imaging from December reviewed with some similar findings but much less pronounced at that time -Will discuss with pulmonary medicine Status: Acute (4) CHF (congestive heart failure): -BNP is elevated -Difficult to assess volume status on exam -Lasix on Bumex both on her home list, reports taking Bumex -Hold Bumex for now -Evaluate response to IV fluids Status: Acute (5) Uncontrolled hypertension: -Coreg and metoprolol both on her home list -Hold metoprolol -Continue home Coreg -Continue home hydralazine -Continue home Imdur Status: Chronic (6) Hyponatremia: -Trend Na Status: Acute (7) IBS (irritable bowel syndrome): -Continue dicyclomine Status: Acute (8) Chronic major depressive disorder: -Continue Prozac Status: Chronic (9) Polyarthralgia: -Continue home prednisone and hydroxychloroquine, although exact indication is unclear, will try to further explore why she is on these medications Status: Chronic (10) Severe obstructive sleep apnea: -Non-compliant with CPAP Status: Acute (11) Atrial flutter: -Continue Coreg -Continue apixaban Status: Chronic Qualifiers: Atrial flutter type: typical Qualified Code(s): I48.3 - Typical atrial flutter (12) Type 2 diabetes mellitus with diabetic chronic kidney disease: -Hold home Levemir 125 units QAM -Start Lantus 40 units Q12H -SSI Status: Chronic (13) COPD (chronic obstructive pulmonary disease): -With chronic hypoxic respiratory failure on 2L baseline Status: Acute (14) Anxiety: -Continue home hydroxyzine PRN Status: Acute (15) Peripheral neuropathy: Status: Acute Plan DVT ppx: Apixaban Code status: DNR/DNI - Discussed with patient Attestations Medical Necessity Statement*: Patient presents febrile with intractable N/V/abd pain with multiple metabolic derrangements requiring hospitalization with expected stay to cross two midnights. Coding Level of Care Code Acute Software Test And Validation Engineer for Chg Fwd Diagnoses Intractable nausea and vomiting R11.2 CHF (congestive heart failure) I50.9 Uncontrolled hypertension I10 IBS (irritable bowel syndrome) K58.9 Chronic major depressive disorder F32.9 Peripheral neuropathy G62.9 Polyarthralgia M25.50 Severe obstructive sleep apnea G47.33 Atrial flutter I48.3 Atrial flutter type: typical Type 2 diabetes mellitus with diabetic chronic kidney disease E11.22 Hyponatremia E87.1 ROSEMARIE (acute kidney injury) N17.9 COPD (chronic obstructive pulmonary disease) J44.9 Pneumonitis J18.9 Anxiety F41.9
[2022-04-16] MEDS: metoclopramide 5 mg/mL SDV 2 mL 10 MG IVP (11:16)
[2022-04-16 11:38] LABS: C Reactive Protein 173.2 mg/L (0.0-4.9)
[2022-04-16 11:45] LABS: Procalcitonin 3.26 ng/mL (0-0.5)
[2022-04-16] MEDS: piperacillin-tazobactam 3.375 GM in sodium chloride 0.9% (plus) 50 ML IV ×2 (12:51→21:23)
[2022-04-16 13:11] LABS: Adenovirus Not Detected (NOT DETECT); Chlamydia Pneumoniae Not Detected (NOT DETECT); Coronavirus 229E,HKU1,NL63,OC4 Not Detected (NOT DETECT); Human Metapneumovirus Not Detected (NOT DETECT); Human Rhinovirus/Enterovirus Not Detected (NOT DETECT); Influenza A Not Detected (NOT DETECT); Influenza A H1 Not Detected (NOT DETECT); Influenza A H1-2009 Not Detected (NOT DETECT); Influenza A H3 Not Detected (NOT DETECT); Influenza B Not Detected (NOT DETECT); Mycoplasma Pneumoniae Not Detected (NOT DETECT); Parainfluenza Virus Type 1 Not Detected (NOT DETECT); Parainfluenza Virus Type 2 Not Detected (NOT DETECT); Parainfluenza Virus Type 3 Not Detected (NOT DETECT); Parainfluenza Virus Type 4 Not Detected (NOT DETECT); Respiratory Syncytial Virus A Not Detected (NOT DETECT); Respiratory Syncytial Virus B Not Detected (NOT DETECT); SARS-COV-2 Not Detected (NOT DETECT)
[2022-04-16 14:01] LABS: Urine Creatinine 47 mg/dL (28-217)
[2022-04-16 14:10] LABS: Urea Nitrogen,Urine Random 440 mg/dL
[2022-04-16 14:11] LABS: Add Urine Microscopic? YES; Bilirubin Urine Neg (Negative); Blood Urine 3+ (Negative); Glucose Urine UA Norm (Normal); Ketones Urine Negative (Negative); Leukocyte Esterase Urine Negative (Negative); Nitrate Urine Negative (Negative); Protein Urine 3+ (Negative); Urine Appearance Clear (CLEAR); Urine Color Yellow (Yellow); Urobilinogen Urine Norm (Negative); pH Urine 5 (5-7)
[2022-04-16 14:12] LABS: Add Urine Culture? No; Amorphous Sediment Urine 1+ /hpf; Bacteria Urine 1+ /hpf; RBC Urine 0-4 /hpf (0-2); Squamous Epithelial Cell Urine 0-4 /hpf (0-5); WBC Urine 0-4 /hpf (0-5)
[2022-04-16 14:16] LABS: Urine Random Sodium < 10 mmol/L
[2022-04-16] MEDS: dicyclomine 20 mg Tablet PO ×2 (16:15→21:23)
[2022-04-16] MEDS: sodium chloride 0.9% 1,000 ML 75 ML IV (16:16)
[2022-04-16 17:10] LABS: Glucose Point of Care 183 mg/dL (70-110)
[2022-04-16] MEDS: insulin lispro 100 unit/1 mL SUBCUT (17:43)
[2022-04-16] MEDS: insulin glargine 100 units/1 mL 40 UNIT SUBCUT (17:43)
[2022-04-16] MEDS: hyDRALAzine 50 mg Tablet 25 MG PO (17:46)
[2022-04-16] MEDS: carvedilol 3.125 mg Tablet PO (17:46)
[2022-04-16] MEDS: hydroxychloroquine 200 mg Tablet PO (17:47)
[2022-04-16] MEDS: promethazine 25 mg Tablet 12.5 MG PO (18:59)
[2022-04-16 21:07] LABS: Glucose Point of Care 148 mg/dL (70-110)
[2022-04-16] MEDS: hyDROXYzine 25 mg Capsule 50 MG PO (21:21)
[2022-04-16] MEDS: apixaban 5 mg Tablet PO (21:21)
[2022-04-16] MEDS: fluoxetine 20 mg Capsule 40 MG PO (21:23)
[2022-04-16] MEDS: oxyCODONE 5 mg IR Tab/Cap PO (21:24)
[2022-04-16 21:52] LABS: Charge for UA Resulting for Rev
[2022-04-16 22:23] LABS: Bilirubin Urine Neg (Negative); Blood Urine 2+ (Negative); Glucose Urine UA Trace (Normal); Ketones Urine Negative (Negative); Leukocyte Esterase Urine Negative (Negative); Nitrate Urine Negative (Negative); Protein Urine 3+ (Negative); Specific Gravity, Urine 1.015 (1.005-1.030); Urine Appearance SL Hazy (CLEAR); Urine Color Yellow (Yellow); Urobilinogen Urine Norm (Negative); pH Urine 5 (5-7)
[2022-04-16 22:26] LABS: Add Urine Microscopic? YES
[2022-04-17] VITALS (14 sets, daily range): BP systolic 119–163; BP diastolic 65–79; PULSE 74–87; RESP 13–20; TEMP 36.1–37; O2SAT 93–98
[2022-04-17] MEDS: acetaminophen 325 mg Tablet 650 MG PO (01:15)
[2022-04-17] MEDS: oxyCODONE 5 mg IR Tab/Cap PO ×3 (03:37→22:00)
[2022-04-17] MEDS: piperacillin-tazobactam 3.375 GM in sodium chloride 0.9% (plus) 50 ML IV ×3 (03:38→20:44)
[2022-04-17 05:34] LABS: Basophils % 0.5 %; Eosinophils % 0.2 %; Hematocrit 32.9 % (37.0-47.0); Hemoglobin 10.4 g/dL (11.5-15.3); Lymphocytes # 1.1 10^3/uL (0.8-4.8); Lymphocytes % 17.6 %; Mean Corpuscular HGB Conc 31.6 g/dL (30.0-36.0); Mean Corpuscular Hemoglobin 28.9 pg (28.0-34.0); Mean Corpuscular Volume 91.4 fl (81-99); Mean Platelet Volume 13.6 fL (7.4-10.4); Monocytes # 0.4 10^3/uL (0.2-0.9); Monocytes % 6.5 %; Neutrophils # 4.49 10^3/uL (1.8-7.7); Neutrophils % 74.5 %; Nucleated Red Blood Cells % 0 %; Platelet Count 40 10^3/cmm (130-400); Red Cell Distribution Width 13.5 % (12.1-15.1)
[2022-04-17 05:49] LABS: Slide Review Slide Review Perform
[2022-04-17 05:59] LABS: Albumin Level 2.2 g/dL (3.5-5.2); Alkaline Phosphatase 84 IU/L (35-105); Blood Urea Nitrogen 35 mg/dL (8-23); C Reactive Protein 209.1 mg/L (0.0-4.9); Calcium 7.9 mg/dL (8.5-10.5); Carbon Dioxide 20 mmol/L (22-29); Chloride 93 mmol/L (98-107); Globulin 3.2 g/dL (1.3-4.6); Glomerular Filtration Rate 37.9 mL/min (90-130); Glucose 171 mg/dL (65-115); Magnesium 2.5 mg/dL (1.7-2.3); Osmolality Calculated 276 mOsm/kg (285-295); Phosphorus 3.8 mg/dL (2.5-4.5); Sodium 127 mmol/L (136-145); Total Bilirubin 0.6 mg/dL (0.15-1.2); Total Protein 5.4 g/dL (6.6-8.7)
[2022-04-17 06:00] LABS: Alanine Aminotransferase 35 U/L (0-33); Anion Gap 18.2 (5-19); Aspartate Amino Transferase 50 U/L (0-32); Potassium 4.2 mmol/L (3.5-5.1)
[2022-04-17] MEDS: sodium chloride 0.9% 1,000 ML 75 ML IV ×2 (06:03→20:50)
[2022-04-17 06:05] LABS: Procalcitonin 4.06 ng/mL (0-0.5)
[2022-04-17 06:35] LABS: Glucose Point of Care 184 mg/dL (70-110)
--- NOTE | 2022-04-17 07:20 | PM.PN ---
Subjective Subjective: Patient reports the only thing she was able to eat yesterday was putting. She continues to endorse nausea and abdominal pains. Endorses diffuse weakness. Endorses subjective fevers and chills overnight. Endorses flatus. Denies chest pain, headache, diarrhea, or vision changes. Medications: Reviewed: Yes Vitals/I&O/Wt Last Vital Signs Temp 98.6 F 04/17/22 04:00 Pulse 77 04/17/22 06:00 Resp 18 04/17/22 04:00 BP 138/65 04/17/22 04:00 Pulse Ox 95 04/17/22 04:00 04/16/22 04/17/22 04/17/22 22:59 06:59 14:59 Intake Total 700 / 1250 1340 / 2590 Output Total 30 / 30 Balance 670 / 1220 1340 / 2560 Weight last 48 hrs Weight 149.05 kg Weight 147.644 kg Weight 147.644 kg Weight 136.078 kg Physical Exam Narrative: General: Patient is awake.?Appears fatigued. Head:? Normocephalic. Atraumatic. EOM intact. Neck: JVD difficult to assess due to body habitus. Cardiovascular: RRR. No gallops. No murmurs. 1+ lower extremity edema not significantly changed from prior exam. Lungs: Breath sounds diminished in bilateral bases. No wheezing. No crackles. Skin: No jaundice. No rashes. Abdomen: Bowel sounds present. Obese. TTP in epigastric region. Genito Urinary: Genital exam not performed since complaints not related. Rectal: Rectal exam not performed since no symptoms indicated blood loss. Extremeties: No cyanosis or clubbing. Musculoskeletal: No swollen or erythematous joints. Neurological: Moves all 4 extremities. No myoclonus. Data : 04/17/22 04:30 04/17/22 04:30 Micro: Microbiology 04/16/22 06:30 Blood Culture - Preliminary Blood NEGATIVE TO DATE 04/16/22 07:16 Blood Culture - Preliminary Blood SPECIMEN COLLECTED A&P Assessment and plan (1) Intractable nausea and vomiting: -Patient remains very symptomatic, not responding as well to treatment as intended, continue to have epigastric pain, nausea, and anorexia -Inflammatory markers up trending with both CRP and procalcitonin worsening -Tick panel, respiratory pathogen panel pending -Continue emperic antibiotics with Zosyn for now -MRSA swab -COVID-19 PCR negative -Anti-emetics as needed -PPI -Continue clear liquid diet Status: Acute (2) ROSEMARIE (acute kidney injury): -FeNa 0.2 c/w prerenal although patient is on Bumex -FeUrea 45.3 c/w intrinsic -Cr w/ slight improvement -Continue IV fluids -Daily assessment of renal function -Avoid nephrotoxins -Strict I&Os Status: Acute (3) Pneumonitis: -COVID-19 negative -Respiratory pathogen panel pending -Consider pulm consult when pulm service is available Status: Acute (4) Thrombocytopathia: -Worsening -Suspected 2/2 infection -Holding anticoagulation Status: Acute (5) CHF (congestive heart failure): -Chronic diastolic heart failure w/ preserved ejection fraction -Hold Bumex -Continue IV fluids -Monitor for s/s of fluid overload Status: Acute (6) Uncontrolled hypertension: -Some improvement in BP, but overall remains poorly controlled -Continue home Coreg -Continue home hydralazine -Continue home Imdur Status: Chronic (7) Hyponatremia: -Suspected hypovolemic with low urine sodium and GI loss -Slightly worse today at 127 -Continue to monitor -Continue IV fluids Status: Acute (8) IBS (irritable bowel syndrome): -Continue dicyclomine Status: Acute (9) Polyarthralgia: -Continue home prednisone and hydroxychloroquine, although exact indication is unclear -Will attempt to do further chart review Status: Chronic (10) Chronic major depressive disorder: -Continue Prozac Status: Chronic (11) Atrial flutter: -Hold apixaban due to worsening thrombocytopenia -Contingue Coreg Status: Chronic Qualifiers: Atrial flutter type: typical Qualified Code(s): I48.3 - Typical atrial flutter (12) Severe obstructive sleep apnea: -Non-compliant with CPAP Status: Acute (13) Chronic obstructive pulmonary disease, unspecified: -With chronic hypoxic respiratory failure on 2L baseline -Not in acute exacerbation Status: Chronic (14) Type 2 diabetes mellitus with diabetic chronic kidney disease: -Glycemic control has been adequate -Hold home Levemir 125 units QAM -Continue Lantus 40 units Q12H -SSI Status: Chronic (15) Anxiety: -Continue home hydroxyzine PRN Status: Acute (16) Peripheral neuropathy: Status: Acute Plan DVT: SCD Code status: DNR/DNI Attestations Medical Necessity Statement*: Patient not responding to treatment as intended, still with exceptionally poor oral intake requiring continued IV fluids and IV antibiotics requiring continued hospitalization. Coding Level of Care Code Acute Ladies Underwear Operator for Chg Fwd Diagnoses Intractable nausea and vomiting R11.2 IBS (irritable bowel syndrome) K58.9 Hyponatremia E87.1 Uncontrolled hypertension I10 Pneumonitis J18.9 CHF (congestive heart failure) I50.9 ROSEMARIE (acute kidney injury) N17.9 Polyarthralgia M25.50 Chronic major depressive disorder F32.9 Atrial flutter I48.3 Atrial flutter type: typical Severe obstructive sleep apnea G47.33 Chronic obstructive pulmonary disease, unspecified J44.9 Type 2 diabetes mellitus with diabetic chronic kidney disease E11.22 Anxiety F41.9 Peripheral neuropathy G62.9 Thrombocytopathia D69.1
[2022-04-17] MEDS: insulin lispro 100 unit/1 mL SUBCUT ×2 (09:33→11:52)
[2022-04-17] MEDS: hydroxychloroquine 200 mg Tablet PO ×2 (09:34→17:25)
[2022-04-17] MEDS: isosorbide mononitrate ER 60 mg Tablet PO (09:34)
[2022-04-17] MEDS: dicyclomine 20 mg Tablet PO ×4 (09:34→20:44)
[2022-04-17] MEDS: hyDRALAzine 50 mg Tablet 25 MG PO ×2 (09:34→17:27)
[2022-04-17] MEDS: cholecalciferol (vitamin D3) 5,000 unit Tablet 5000 UNIT PO (09:34)
[2022-04-17] MEDS: fluoxetine 20 mg Capsule PO (09:34)
[2022-04-17] MEDS: predniSONE 5 mg Tablet 2.5 MG PO (09:35)
[2022-04-17] MEDS: pantoprazole DR 40 mg Tablet PO (09:36)
[2022-04-17] MEDS: insulin glargine 100 units/1 mL 40 UNIT SUBCUT ×2 (09:39→17:27)
[2022-04-17 11:12] LABS: Glucose Point of Care 185 mg/dL (70-110)
[2022-04-17] MEDS: ondansetron 2 mg/ML SDV 2 mL 4 MG IVP ×2 (11:50→22:00)
[2022-04-17 17:14] LABS: Glucose Point of Care 130 mg/dL (70-110)
[2022-04-17] MEDS: promethazine 25 mg Tablet 12.5 MG PO (17:26)
[2022-04-17 20:21] LABS: Glucose Point of Care 183 mg/dL (70-110)
[2022-04-17] MEDS: fluoxetine 20 mg Capsule 40 MG PO (20:44)
[2022-04-17] MEDS: hyDROXYzine 25 mg Capsule 50 MG PO (20:59)
[2022-04-17] MEDS: metoclopramide 10 mg Tablet PO (21:00)
[2022-04-18] VITALS (11 sets, daily range): BP systolic 151–198; BP diastolic 64–75; PULSE 74–88; RESP 17–20; TEMP 36.1–36.8; O2SAT 92–98
[2022-04-18] MEDS: promethazine 25 mg Tablet 12.5 MG PO (01:57)
[2022-04-18] MEDS: bisacodyl 10 mg Supp PR (02:16)
[2022-04-18 03:49] LABS: Basophils # 0.1 10^3/uL (0.0-0.1); Basophils % 0.8 %; Eosinophils # 0.1 10^3/uL (0.0-0.8); Hematocrit 28.4 % (37.0-47.0); Hemoglobin 9.7 g/dL (11.5-15.3); Lymphocytes # 2.5 10^3/uL (0.8-4.8); Lymphocytes % 39.2 %; Mean Corpuscular HGB Conc 34.2 g/dL (30.0-36.0); Mean Corpuscular Hemoglobin 28.6 pg (28.0-34.0); Mean Corpuscular Volume 83.8 fl (81-99); Mean Platelet Volume 12.5 fL (7.4-10.4); Monocytes # 0.5 10^3/uL (0.2-0.9); Monocytes % 7.2 %; Neutrophils # 3.13 10^3/uL (1.8-7.7); Neutrophils % 48.8 %; Nucleated Red Blood Cells % 0 %; Platelet Count 88 10^3/cmm (130-400); Red Blood Count 3.39 10^6/uL (4.1-5.3); Red Cell Distribution Width 13.7 % (12.1-15.1); White Blood Count 6.4 10^3/uL (4.0-10.0)
[2022-04-18 04:04] LABS: Slide Review Slide Review Perform
[2022-04-18 04:06] LABS: Alanine Aminotransferase 30 U/L (0-33); Albumin Level 2.2 g/dL (3.5-5.2); Alkaline Phosphatase 101 IU/L (35-105); Anion Gap 15.4 (5-19); Aspartate Amino Transferase 34 U/L (0-32); Blood Urea Nitrogen 36 mg/dL (8-23); C Reactive Protein 163.7 mg/L (0.0-4.9); Calcium 7.6 mg/dL (8.5-10.5); Carbon Dioxide 22 mmol/L (22-29); Chloride 93 mmol/L (98-107); Globulin 2.8 g/dL (1.3-4.6); Glomerular Filtration Rate 32.5 mL/min (90-130); Glucose 171 mg/dL (65-115); Osmolality Calculated 276 mOsm/kg (285-295); Phosphorus 3.1 mg/dL (2.5-4.5); Potassium 3.4 mmol/L (3.5-5.1); Sodium 127 mmol/L (136-145); Total Bilirubin 0.5 mg/dL (0.15-1.2)
[2022-04-18] MEDS: piperacillin-tazobactam 3.375 GM in sodium chloride 0.9% (plus) 50 ML IV ×3 (04:11→20:44)
[2022-04-18 04:13] LABS: Procalcitonin 3.42 ng/mL (0-0.5)
[2022-04-18 07:36] LABS: Glucose Point of Care 217 mg/dL (70-110)
[2022-04-18] MEDS: fluoxetine 20 mg Capsule PO (08:40)
[2022-04-18] MEDS: potassium chloride ER 20 mEq Tablet PO (08:40)
[2022-04-18] MEDS: predniSONE 5 mg Tablet 2.5 MG PO (08:40)
[2022-04-18] MEDS: hydroxychloroquine 200 mg Tablet PO ×2 (08:42→17:45)
[2022-04-18] MEDS: isosorbide mononitrate ER 60 mg Tablet PO (08:42)
[2022-04-18] MEDS: dicyclomine 20 mg Tablet PO ×4 (08:42→20:45)
[2022-04-18] MEDS: hyDRALAzine 50 mg Tablet 25 MG PO ×2 (08:42→17:45)
[2022-04-18] MEDS: cholecalciferol (vitamin D3) 5,000 unit Tablet 5000 UNIT PO (08:42)
[2022-04-18] MEDS: pantoprazole DR 40 mg Tablet PO (08:42)
[2022-04-18] MEDS: carvedilol 3.125 mg Tablet PO ×2 (08:42→17:45)
[2022-04-18] MEDS: insulin glargine 100 units/1 mL 40 UNIT SUBCUT ×2 (08:43→17:45)
[2022-04-18] MEDS: insulin lispro 100 unit/1 mL SUBCUT ×3 (08:43→17:46)
--- NOTE | 2022-04-18 10:59 | PM.PN ---
Subjective Subjective: Patient's diet advanced yesterday. Today, she reports some improvement in oral intake, but continues to endorse significant nausea and abdominal pain. Rates around a 7 out of 10. Reports oxycodone improves the abdominal pain. Complains of constipation. Reports she is unable to urinate. Endorses diffuse weakness and generalized malaise. States she gets lightheaded and dizzy when she stands up. Denies fevers, chills, chest pain or shortness of breath. Medications: Reviewed: Yes Vitals/I&O/Wt Last Vital Signs Temp 97.7 F 04/18/22 07:28 Pulse 81 04/18/22 08:00 Resp 18 04/18/22 07:28 BP 198/64 04/18/22 07:28 Pulse Ox 92 04/18/22 08:00 04/17/22 04/18/22 04/18/22 22:59 06:59 14:59 Intake Total 1530 / 1890 530 / 2420 720 / 720 Balance 1530 / 1890 530 / 2420 720 / 720 Weight last 48 hrs Weight 154.494 kg Weight 149.05 kg Weight 147.644 kg Weight 147.644 kg Physical Exam Narrative: General: Patient is awake and alert.?Appears fatigued. Head:? Normocephalic. Atraumatic. EOM intact. Neck: JVD does not appear elevated. Cardiovascular: RRR. No gallops. No murmurs. 1+ lower extremity edema similar to prior exam. Lungs: Breath sounds diminished in bilateral bases. No wheezing. No crackles. Skin: No jaundice. No rashes. Abdomen: Bowel sounds present. Obese. TTP in epigastric region similar to prior exam. Extremeties: No cyanosis or clubbing. Musculoskeletal: No swollen or erythematous joints. Neurological: Moves all 4 extremities. No myoclonus. Data : 04/18/22 03:41 04/18/22 03:41 Micro: Microbiology 04/17/22 15:30 MRSA Culture - Final Nose 04/16/22 07:16 Blood Culture - Preliminary Blood NEGATIVE TO DATE 04/16/22 06:30 Blood Culture - Preliminary Blood NEGATIVE TO DATE A&P Assessment and plan (1) Intractable nausea and vomiting: -A/w abdominal pain -Symptoms are slowly improving -Suspect 2/2 viral gastoenteritis -Follow up tick panel -Procalcitonin and CRP remain elevated -Continue emperic antibiotic treatment with Zosyn given immunocompromised state -Anti-emetics as needed -Oxycodone for breakthrough pain -Continue PPI -Discontinue IV fluids -Encourage PO intake Status: Acute (2) ROSEMARIE (acute kidney injury): -ROSEMARIE on CKD -Labile Cr over past year -Strict I&Os -Daily weights Status: Acute (3) Pneumonitis: -COVID-19 negative -Respiratory pathogen panel pending -Consider pulm consult when pulm service is available Status: Acute (4) Urinary disorder: -New complaint of inability to urine -Post void residual ordered Status: Acute (5) Constipation: -Start scheduled Senna and MiraLAX Status: Acute (6) Debility: -A/w physical deconditioning and generalized weakness -PT/OT consultation Status: Acute (7) CHF (congestive heart failure): -Chronic diastolic heart failure w/ preserved ejection fraction -Hold Bumex -Daily assessment of volume status -Strict I&Os Status: Acute (8) Uncontrolled hypertension: -Continue home Coreg -Continue home hydralazine -Continue home Imdur Status: Chronic (9) Hyponatremia: -Continue to monitor Status: Acute (10) IBS (irritable bowel syndrome): -Continue dicyclomine Status: Acute (11) Chronic major depressive disorder: -Continue Prozac Status: Chronic (12) Polyarthralgia: -Performed chart review and unclear what type of arthritis she has and patient is poor historian -Unclear who or when she was started on chronic prednisone and hydroxychloroquine, but will continue for now Status: Chronic (13) Thrombocytopathia: -Improved today -Continue holding apixaban, reassess restarting tomorrow if platelets continue to improve Status: Acute (14) Atrial flutter: -Hold apixaban due to worsening thrombocytopenia -Contingue Coreg Status: Chronic Qualifiers: Atrial flutter type: typical Qualified Code(s): I48.3 - Typical atrial flutter (15) Severe obstructive sleep apnea: -Non-compliant with CPAP Status: Acute (16) Type 2 diabetes mellitus with diabetic chronic kidney disease: -Hold home Levemir 125 units QAM -Continue Lantus 40 units Q12H -SSI Status: Chronic (17) Chronic obstructive pulmonary disease, unspecified: -With chronic hypoxic respiratory failure on 2L baseline -Not in acute exacerbation Status: Chronic (18) Anxiety: -Continue home hydroxyzine PRN Status: Acute (19) Peripheral neuropathy: Status: Acute Plan DVT: SCD Code status: DNR/DNI Attestations Medical Necessity Statement*: Immunocompromised patient remains symptomatic with poor oral intake 2/2 gastroenteritis requiring ongoing hospitalization for support care and IV antibiotics. Coding Level of Care Code Acute Outdoor Power Equipment Mechanic for g Fwd Diagnoses Constipation K59.00 Urinary disorder N39.9 Intractable nausea and vomiting R11.2 ROSEMARIE (acute kidney injury) N17.9 CHF (congestive heart failure) I50.9 Pneumonitis J18.9 Uncontrolled hypertension I10 Hyponatremia E87.1 IBS (irritable bowel syndrome) K58.9 Chronic major depressive disorder F32.9 Polyarthralgia M25.50 Thrombocytopathia D69.1 Atrial flutter I48.3 Atrial flutter type: typical Severe obstructive sleep apnea G47.33 Type 2 diabetes mellitus with diabetic chronic kidney disease E11.22 Chronic obstructive pulmonary disease, unspecified J44.9 Anxiety F41.9 Peripheral neuropathy G62.9 Debility R53.81
[2022-04-18 11:41] LABS: Glucose Point of Care 195 mg/dL (70-110)
[2022-04-18 11:41] LABS: Glucose Point of Care 185 mg/dL (70-110)
[2022-04-18] MEDS: polyethylene glycol 3350 Pkt 17 gm PO (12:23)
[2022-04-18] MEDS: sennosides 8.6 mg Tablet 17.2 MG PO ×2 (12:23→17:44)
[2022-04-18] MEDS: ondansetron 2 mg/ML SDV 2 mL 4 MG IVP (14:42)
[2022-04-18 17:10] LABS: Glucose Point of Care 153 mg/dL (70-110)
[2022-04-18] MEDS: oxyCODONE 5 mg IR Tab/Cap PO (18:00)
[2022-04-18] MEDS: triamcinolone 0.1% cream 15 gm 1 APPLIC TOPICAL (18:26)
[2022-04-18] MEDS: fluoxetine 20 mg Capsule 40 MG PO (20:46)
[2022-04-18] MEDS: albuterol 8 gm MDI 2 PUFF INHALATION (23:35)
[2022-04-19] VITALS (12 sets, daily range): BP systolic 131–195; BP diastolic 64–78; PULSE 73–87; RESP 16–18; TEMP 36.6–36.8; O2SAT 95–99
[2022-04-19] MEDS: ondansetron 2 mg/ML SDV 2 mL 4 MG IVP (02:43)
[2022-04-19] MEDS: piperacillin-tazobactam 3.375 GM in sodium chloride 0.9% (plus) 50 ML IV ×3 (04:17→20:13)
[2022-04-19] MEDS: methocarbamol 500 mg Tablet PO ×2 (04:20→12:56)
[2022-04-19 08:04] LABS: Glucose Point of Care 206 mg/dL (70-110)
[2022-04-19 08:04] LABS: Glucose Point of Care 145 mg/dL (70-110)
[2022-04-19] MEDS: isosorbide mononitrate ER 60 mg Tablet PO (09:07)
[2022-04-19] MEDS: hydroxychloroquine 200 mg Tablet PO ×2 (09:07→17:32)
[2022-04-19] MEDS: sennosides 8.6 mg Tablet 17.2 MG PO ×2 (09:08→17:34)
[2022-04-19] MEDS: hyDRALAzine 50 mg Tablet 25 MG PO (09:08)
[2022-04-19] MEDS: cholecalciferol (vitamin D3) 5,000 unit Tablet 5000 UNIT PO (09:08)
[2022-04-19] MEDS: predniSONE 5 mg Tablet 2.5 MG PO (09:09)
[2022-04-19] MEDS: fluoxetine 20 mg Capsule PO (09:09)
[2022-04-19] MEDS: oxyCODONE 5 mg IR Tab/Cap PO (09:10)
[2022-04-19] MEDS: pantoprazole DR 40 mg Tablet PO ×2 (09:10→17:34)
[2022-04-19] MEDS: dicyclomine 20 mg Tablet PO ×4 (09:11→20:12)
[2022-04-19] MEDS: insulin glargine 100 units/1 mL 40 UNIT SUBCUT ×2 (09:11→17:32)
[2022-04-19] MEDS: insulin lispro 100 unit/1 mL SUBCUT ×3 (09:11→17:33)
[2022-04-19] MEDS: polyethylene glycol 3350 Pkt 17 gm PO (09:15)
[2022-04-19 11:37] LABS: Glucose Point of Care 209 mg/dL (70-110)
[2022-04-19 12:06] LABS: Hematocrit 29.8 % (37.0-47.0); Hemoglobin 9.9 g/dL (11.5-15.3); Mean Corpuscular HGB Conc 33.2 g/dL (30.0-36.0); Mean Corpuscular Hemoglobin 28.6 pg (28.0-34.0); Mean Corpuscular Volume 86.1 fl (81-99); Mean Platelet Volume 11.2 fL (7.4-10.4); Platelet Count 173 10^3/cmm (130-400); Red Blood Count 3.46 10^6/uL (4.1-5.3); Red Cell Distribution Width 13.8 % (12.1-15.1); White Blood Count 7.9 10^3/uL (4.0-10.0)
[2022-04-19 12:30] LABS: Alanine Aminotransferase 31 U/L (0-33); Albumin Level 2.6 g/dL (3.5-5.2); Alkaline Phosphatase 115 IU/L (35-105); Anion Gap 13.9 (5-19); Aspartate Amino Transferase 31 U/L (0-32); Blood Urea Nitrogen 33 mg/dL (8-23); Calcium 8.3 mg/dL (8.5-10.5); Carbon Dioxide 24 mmol/L (22-29); Chloride 98 mmol/L (98-107); Globulin 3.1 g/dL (1.3-4.6); Glomerular Filtration Rate 30.3 mL/min (90-130); Glucose 157 mg/dL (65-115); Osmolality Calculated 285 mOsm/kg (285-295); Potassium 3.9 mmol/L (3.5-5.1); Sodium 132 mmol/L (136-145); Total Bilirubin 0.3 mg/dL (0.15-1.2); Total Protein 5.7 g/dL (6.6-8.7)
[2022-04-19] MEDS: magnesium hydroxide 30 mL UDC PO ×2 (12:56→17:34)
[2022-04-19 13:22] LABS: Slide Review Slide Review Perform
[2022-04-19 13:23] LABS: Absolute Eosinophils 0.1 10^3/cmm (0.0-0.7); Absolute Segmented Neutrophil 3.8 10/cmm (1.6-7.1); Eosinophils 2 %; Lymphocytes 41 %; Lymphocytes Absolute 3.6 10^3/cmm (1.2-3.4); Monocytes Absolute 0.3 10^3/cmm (0.1-0.6); Segmented Neutrophils 48 %; Total Cells Counted 100 (0-100)
[2022-04-19 13:25] LABS: Absolute Neutrophil 3.8 10^3/cmm (1.4-6.5); Platelet Estimate Normal (Normal)
--- NOTE | 2022-04-19 14:26 | P.PN_ITS ---
Subjective Subjective: Hospital course, labs appreciated. On examination patient sitting at bedside. Denies of having any further nausea or vomiting. Complaining of constipation. Complaining of nonspecific pains in the left breast, left flank. Denies of having any dysuria. Able to pass urine today. States she is concerned about to wounds on her left breast which have not healed since her recent punch biopsy. Able to tolerate diet. Vitals/I&O/Wt Last Vital Signs Temp 98.1 F 04/19/22 11:56 Pulse 83 04/19/22 11:56 Resp 18 04/19/22 11:56 BP 195/78 04/19/22 11:56 Pulse Ox 95 04/19/22 11:56 04/18/22 04/19/22 04/19/22 22:59 06:59 14:59 Intake Total 1410 / 2180 290 / 2470 770 / 770 Balance 1410 / 2180 290 / 2470 770 / 770 Weight last 48 hrs Weight 152.09 kg Weight 154.494 kg Physical Exam Narrative: General: No acute distress, AO x3, morbidly obese, anxious HEENT: PERRLA, pupils bilaterally equal and reactive Chest: Normal vesicular breath sounds, no added sounds, equal good air entry bilaterally CVS: S1-S2 regular, no murmurs, no tachycardia, no gallops, no rubs Abdomen: Soft, nonspecific tenderness on deep palpation over the abdomen, mild guarding present, no rigidity, no rebound tenderness no organomegaly, bowel sounds present Neuro: No focal deficits, no facial deformity, AO x3, power 5/5 in all limbs Data : 04/19/22 11:48 04/19/22 11:48 Micro: Microbiology 04/17/22 15:30 MRSA Culture - Final Nose A&P Assessment and plan (1) Intractable nausea and vomiting: Status: Acute (2) ROSEMARIE (acute kidney injury): Status: Acute (3) CHF (congestive heart failure): Status: Acute (4) Pneumonitis: Status: Acute (5) Constipation: Status: Acute (6) Uncontrolled hypertension: Status: Chronic (7) Hyponatremia: Status: Acute (8) Chronic major depressive disorder: Status: Chronic Plan Intractable nausea and vomiting: Multiple CT abdomen imaging within the last 2 weeks. Benign. Most likely is secondary to possible gastritis from recent chronic steroid use versus secondary to constipation. Zofran as needed. Protonix twice daily, Carafate before meals and at bedtime. Patient has no white count elevation, has remained afebrile, CT abdomen pelvis negative for acute infection. CT chest concerning for pneumonitis. Concern for possible congestive heart failure. On minimal oxygen supplementation. Denies of having any cough. Low likelihood of bacterial infection so far. Blood culture has remained so far negative. For now continue with IV Zosyn to finish a 5-day course.. Keep oxygen supplementation over 88%. Congestive heart failure: Diastolic. Chronic. Cardiogram done in August 11 appreciated. Restart home Lasix 80 mg oral daily. Will hold off on Bumex given hyponatremia on admission. Uncontrolled hypertension: Goal blood pressure less than 140/90 mmHg. Continue with home dose of carvedilol. Increase home dose of hydralazine to 50 mg 3 times daily. Add amlodipine 10 mg daily. Will uptitrate medication accordingly. Hyponatremia: Recheck urine lites. Recheck CMP today. We will treat accordingly. History of atrial flutter: Normal sinus rhythm currently. Continue with Eliquis. Type 2 diabetes mellitus: Insulin sliding scale along with Lantus twice daily. Check A1c. DNR/DNI. Carb consistent diet. Protonix will suffice for PUD prophylaxis. Eliquis suffice for DVT prophylaxis. Attestations Medical Necessity Statement*: Requires further hospitalization for management of intractable nausea, vomiting, uncontrolled hypertension, resolving hyponatremia while antihypertensives are adjusted Time Spent in Patient Care: Greater than 35 minutes Coding Level of Care Code Acute Grocery Shopper for [facility] Fwd Diagnoses Intractable nausea and vomiting R11.2 ROSEMARIE (acute kidney injury) N17.9 CHF (congestive heart failure) I50.9 Pneumonitis J18.9 Constipation K59.00 Uncontrolled hypertension I10 Hyponatremia E87.1 Chronic major depressive disorder F32.9
[2022-04-19 14:36] LABS: Potassium, Radom Urine 8 mmol/L
[2022-04-19 14:43] LABS: Urine Random Chloride < 10 mmol/L; Urine Random Sodium 10 mmol/L
[2022-04-19] MEDS: amlodipine 10 mg Tablet PO (15:25)
[2022-04-19] MEDS: hyDRALAzine 50 mg Tablet PO ×2 (15:25→20:12)
[2022-04-19] MEDS: sucralfate 1 gm/10 mL Oral Liq UDC PO ×2 (17:33→20:14)
[2022-04-19] MEDS: docusate sodium 100 mg Capsule PO (17:34)
[2022-04-19 18:06] LABS: Glucose Point of Care 266 mg/dL (70-110)
[2022-04-19] MEDS: apixaban 5 mg Tablet PO (20:12)
[2022-04-19] MEDS: fluoxetine 20 mg Capsule 40 MG PO (20:13)
[2022-04-19] MEDS: albuterol 8 gm MDI 2 PUFF INHALATION (20:27)
[2022-04-19 20:59] LABS: Glucose Point of Care 144 mg/dL (70-110)
[2022-04-19] MEDS: hyDROXYzine 25 mg Capsule 50 MG PO (22:38)
[2022-04-20] VITALS (8 sets, daily range): BP systolic 151–179; BP diastolic 63–93; PULSE 79–91; RESP 18; TEMP 36.2–36.8; O2SAT 96–98
[2022-04-20] MEDS: acetaminophen 325 mg Tablet 650 MG PO ×2 (02:44→11:39)
--- NOTE | 2022-04-20 03:10 | PC.NURSE ---
Pt sitting on the side of the bed talking to staff. Pts had several request. Pt hitting call button several times an hour. Pt requested tylenol c/o headache. After receiving tylenol pt requested crackers. After receiving crackers pt requested more blankets. After pt received blankets pt requested chicken broth. After pt received chicken broth pt requested jello. Pt c/o IV leaking. Upon assessment of pts IV this nurse noted no leaking from IV. IV patent no redness or swelling or pain noted. Pt c/o O2 being shut off. Upon assessment O2 on 2 Lpm line intact and O2 pressure wnl. Pt now sitting on the side of bed. No c/o pain or discomfort at the present time. No needs voiced further at the present time. Call light in reach.
[2022-04-20] MEDS: ondansetron 2 mg/ML SDV 2 mL 4 MG IVP (05:01)
[2022-04-20] MEDS: piperacillin-tazobactam 3.375 GM in sodium chloride 0.9% (plus) 50 ML IV ×2 (05:01→11:39)
[2022-04-20] MEDS: sucralfate 1 gm/10 mL Oral Liq UDC PO ×2 (06:37→11:39)
[2022-04-20] MEDS: sennosides 8.6 mg Tablet 17.2 MG PO (08:15)
[2022-04-20] MEDS: polyethylene glycol 3350 Pkt 17 gm PO (08:15)
[2022-04-20] MEDS: predniSONE 5 mg Tablet 2.5 MG PO (08:15)
[2022-04-20] MEDS: isosorbide mononitrate ER 60 mg Tablet PO (08:15)
[2022-04-20] MEDS: cholecalciferol (vitamin D3) 5,000 unit Tablet 5000 UNIT PO (08:15)
[2022-04-20] MEDS: apixaban 5 mg Tablet PO (08:15)
[2022-04-20] MEDS: hyDRALAzine 50 mg Tablet PO ×2 (08:15→14:21)
[2022-04-20] MEDS: amlodipine 10 mg Tablet PO (08:16)
[2022-04-20] MEDS: pantoprazole DR 40 mg Tablet PO (08:16)
[2022-04-20] MEDS: docusate sodium 100 mg Capsule PO (08:16)
[2022-04-20] MEDS: fluoxetine 20 mg Capsule PO (08:16)
[2022-04-20] MEDS: albuterol 8 gm MDI 2 PUFF INHALATION ×2 (08:18→11:51)
[2022-04-20 08:47] LABS: Glucose Point of Care 129 mg/dL (70-110)
[2022-04-20 08:58] LABS: Glucose Point of Care 102 mg/dL (70-110)
[2022-04-20] MEDS: hydroxychloroquine 200 mg Tablet PO (10:15)
[2022-04-20] MEDS: dicyclomine 20 mg Tablet PO ×2 (10:15→14:21)
[2022-04-20] MEDS: insulin glargine 100 units/1 mL 40 UNIT SUBCUT (11:40)
[2022-04-20] MEDS: insulin lispro 100 unit/1 mL SUBCUT (11:41)
[2022-04-20 12:15] LABS: Glucose Point of Care 209 mg/dL (70-110)
--- NOTE | 2022-04-20 14:22 | P.DS_ITS ---
Discharge Providers Date of Admission: 04/16/22 11:15 Date of Discharge: April 20, 2022 Attending Provider at Admission: Manuel Ordoñez MD Attending Provider at Discharge: Tom Styles MD Primary Care Provider: PARAG Mensah Diagnoses at Discharge Discharge Diagnosis (1) Intractable nausea and vomiting: Status: Acute (2) ROSEMARIE (acute kidney injury): Status: Acute (3) CHF (congestive heart failure): Status: Inactive (4) Pneumonitis: Status: Acute (5) Constipation: Status: Acute (6) Uncontrolled hypertension: Status: Chronic (7) Hyponatremia: Status: Acute (8) Chronic major depressive disorder: Status: Chronic Reason for Visit Reason for Visit: abd pain Brief History: History as per HPI: Jennifer Novak is a 66 year old female with past medical history significant for atrial flutter, hypertension, depression, COPD with chronic hypoxic respiratory failure on 2 L baseline diabetes mellitus, and chronic diastolic heart failure with preserved ejection fraction who presents to the emergency department with intractable nausea, emesis, and abdominal pain x2 weeks.? Endorses associated symptoms of back pain, headaches, edema, fevers and chills.? Patient reports symptoms have continued to progressively worsen daily.? She describes the emesis as almost constant.? She describes the abdominal pain is epigastric and sharp.? Describes as intermittent.? Rates it 8 out of 10.? Of note, she has been evaluated the emergency department multiple times recently for similar complaints.? On 04/12 CT abdomen pelvis revealed no acute abnormalities.? Repeat abdominal pelvic CT on 04/14 again showed no acute abnormalities.? CTA CAP on 04/16 revealed diffuse bilateral pneumonitis, but no pulmonary embolism although exam limited due to body habitus. She reports she lives with her son who has not experienced similar symptoms.? She denies any recent sick contacts.? Denies recent antibiotics.? Denies any major recent changes to her diet.? She denies cough, chest pain, palpitations or shortness of breath. Patient is on prednisone and hydroxychloroquine.? She states she does not know how long she has been on these medications or who prescribed them.? She also does not know why she is on these medications. Hospital Course Hospital Course Patient went to the hospital further evaluation and management of intractable nausea and vomiting. On admission she was found to have significant electrode normality with hyponatremia, hypochloremia, ROSEMARIE along with elevated procalcitonin and thrombocytopenia. She was started on gentle IV hydration along with empiric antibiotics. Her nausea and vomiting was treated conservatively by keeping her n.p.o. and then advancing diet gradually. She has been able to tolerate regular diet for more than 48 hours now. Symptoms are most likely secondary to gastritis from a new oral steroid. She was started on aggressive PPI and oral Carafate. With IV hydration her electro normality and ROSEMARIE resolved. Patient was also found to have significant constipation for which he was started with aggressive bowel regimen. On admission she was found to have uncontrolled high blood pressures for which her antihypertensives were adjusted. During hospitalization patient remained on home oxygen supplementation of 2 L. During hospitalization her blood culture remained negative, urine culture remain negative and MRSA swab was negative. She has been discharged in hemodynamically stable condition on oral Augmentin and Levaquin for next 5 days. She is advised to continue taking her regular diet. She is to continue taking Protonix twice daily along with Carafate before meals and at bedtime. She is to follow-up with her primary care provider within next 1 week. Physical Exam Narrative: General: No acute distress, AO x3, morbidly obese, anxious HEENT: PERRLA, pupils bilaterally equal and reactive Chest: Normal vesicular breath sounds, no added sounds, equal good air entry bilaterally CVS: S1-S2 regular, no murmurs, no tachycardia, no gallops, no rubs Abdomen: Soft, nonspecific tenderness on deep palpation over the abdomen, mild guarding present, no rigidity, no rebound tenderness no organomegaly, bowel sounds present Neuro: No focal deficits, no facial deformity, AO x3, power 5/5 in all limbs Discharge Data Studies Completed and Pending Completed Studies During Hospitalization Category Date Time Status CTA chest abdomen pelvis [CT angio chest abdomen pelvis Cat Scan 04/16/22 09:07 Completed ] Urgent Pending at discharge Category Date Time Status Blood Culture Stat Lab 04/16/22 07:16 Results Tick Panel Routine Lab 04/16/22 15:31 Received Radiology Impressions Chest/Abdomen/Pelvis CTA 04/16/22 09:07 IMPRESSION: 1. Moderate diffuse bilateral pneumonitis. No focal consolidation. 2. No pleural effusion. 3. No central pulmonary embolism. Beyond the proximal lobar branches the opacification is significantly limited due to poor contrast bolus and the patient's body habitus. 4. A few scattered diverticula without evidence for acute diverticulitis. 5. Prior cholecystectomy. 6. No bile duct dilatation or renal obstruction. Microbiology 04/17/22 15:30 Nose MRSA Culture - Final 04/16/22 07:16 Blood Blood Culture - Preliminary NEGATIVE TO DATE 04/16/22 06:30 Blood Blood Culture - Preliminary NEGATIVE TO DATE Laboratory Results WBC 7.9 10^3/uL (4.0-10.0) 04/19/22 11:48 RBC 3.46 10^6/uL (4.1-5.3) L 04/19/22 11:48 Hgb 9.9 g/dL (11.5-15.3) L 04/19/22 11:48 Hct 29.8 % (37.0-47.0) L 04/19/22 11:48 MCV 86.1 fl (81-99) 04/19/22 11:48 MCH 28.6 pg (28.0-34.0) 04/19/22 11:48 MCHC 33.2 g/dL (30.0-36.0) 04/19/22 11:48 RDW 13.8 % (12.1-15.1) 04/19/22 11:48 Plt Count 173 10^3/cmm (130-400) 04/19/22 11:48 MPV 11.2 fL (7.4-10.4) H 04/19/22 11:48 Neut % (Auto) 48.8 % 04/18/22 03:41 Lymph % (Auto) Not Reportable 04/19/22 11:48 [place] % (Auto) Not Reportable 04/19/22 11:48 Eos % (Auto) 2.0 % 04/18/22 03:41 Baso % (Auto) 0.8 % 04/18/22 03:41 Neut # (Auto) 3.13 10^3/uL (1.8-7.7) 04/18/22 03:41 Lymph # (Auto) Not Reportable 04/19/22 11:48 [place] # (Auto) Not Reportable 04/19/22 11:48 Eos # (Auto) 0.1 10^3/uL (0.0-0.8) 04/18/22 03:41 Baso # (Auto) 0.1 10^3/uL (0.0-0.1) 04/18/22 03:41 Nucleated RBC % (auto) 0 % 04/18/22 03:41 Total Counted 100 (0-100) 04/19/22 11:48 Atypical Lymphs % 5.0 % (0-5) 04/19/22 11:48 Absolute Neutrophils 3.8 10^3/cmm (1.4-6.5) 04/19/22 11:48 Segmented Neutrophils 48 % 04/19/22 11:48 Abs Segm Neuts (Man) 3.8 10/cmm (1.6-7.1) 04/19/22 11:48 Band Neutrophils 0.0 % 04/19/22 11:48 Abs Band Neuts (Man) 0.0 10^3/cmm (0.0-1.2) 04/19/22 11:48 Absolute Lymphocytes 3.6 10^3/cmm (1.2-3.4) H 04/19/22 11:48 Lymphocytes (Manual) 41 % 04/19/22 11:48 Monocytes (Manual) 4.0 % 04/19/22 11:48 Absolute Monocytes 0.3 10^3/cmm (0.1-0.6) 04/19/22 11:48 Eosinophils (Manual) 2 % 04/19/22 11:48 Absolute Eosinophils 0.1 10^3/cmm (0.0-0.7) 04/19/22 11:48 Basophils (Manual) 0.0 % 04/19/22 11:48 Absolute Basophils 0.0 10^3/cmm (0.0-0.2) 04/19/22 11:48 Metamyelocytes 0.0 % 04/19/22 11:48 Myelocytes 0.0 % 04/19/22 11:48 Promyelocytes 0.0 % 04/16/22 06:30 Nucleated RBCs 0.0 /100WBC (0-1) 04/19/22 11:48 Nucleated RBCs # 0.0 /100WBC 04/18/22 03:41 Platelet Estimate Normal (Normal) 04/19/22 11:48 D-Dimer 3.32 ug/mIFEU (0-0.59) H 04/16/22 07:16 Specimen Type Arterial 04/16/22 07:20 Sample Site Brachial, right 04/16/22 07:20 ABG pH 7.49 (7.35-7.45) H 04/16/22 07:20 ABG pCO2 37.7 mmHg (35-45) 04/16/22 07:20 ABG pO2 69.7 mmHg (80.0-100.0) L 04/16/22 07:20 ABG HCO3 29.0 mmol/L (22-26) H 04/16/22 07:20 ABG Base Excess 5.4 mmol/L (-2.0-2.0) H 04/16/22 07:20 Sharad Test Pos 04/16/22 07:20 Hematocrit 35.3 % (37-47) L 04/16/22 07:20 O2 Delivery Device Nc 04/16/22 07:20 O2 Liters/Min 2.0 % 04/16/22 07:20 FiO2 28.0 % 04/16/22 07:20 Central Office Associate ID Monro 04/16/22 07:20 Sodium 132 mmol/L (136-145) L 04/19/22 11:48 Potassium 3.9 mmol/L (3.5-5.1) 04/19/22 11:48 Chloride 98 mmol/L (98-107) 04/19/22 11:48 Carbon Dioxide 24 mmol/L (22-29) 04/19/22 11:48 Anion Gap 13.9 (5-19) 04/19/22 11:48 BUN 33 mg/dL (8-23) H 04/19/22 11:48 Creatinine 1.7 mg/dL (0.5-0.9) H 04/19/22 11:48 GFR Calculation 30.3 mL/min (90-130) L 04/19/22 11:48 Glucose 157 mg/dL (65-115) H 04/19/22 11:48 POC Glucose 209 mg/dL (70-110) H 04/20/22 10:48 Calculated Osmolality 285 mOsm/kg (285-295) 04/19/22 11:48 Lactate 1.2 mmol/L (0.5-2.2) 04/16/22 06:30 Calcium 8.3 mg/dL (8.5-10.5) L 04/19/22 11:48 Phosphorus 3.1 mg/dL (2.5-4.5) 04/18/22 03:41 Magnesium 2.5 mg/dL (1.7-2.3) H 04/17/22 04:30 Total Bilirubin 0.3 mg/dL (0.15-1.2) 04/19/22 11:48 AST 31 U/L (0-32) 04/19/22 11:48 ALT 31 U/L (0-33) 04/19/22 11:48 Alkaline Phosphatase 115 IU/L (35-105) H 04/19/22 11:48 Troponin T Gen 5 ng/L 32 ng/L (0-10) H 04/16/22 06:30 C-Reactive Protein 163.7 mg/L (0.0-4.9) H 04/18/22 03:41 NT-Pro-B Natriuret Pep 5819 pg/mL (0-125) H 04/16/22 06:30 Total Protein 5.7 g/dL (6.6-8.7) L 04/19/22 11:48 Albumin 2.6 g/dL (3.5-5.2) L 04/19/22 11:48 Globulin 3.1 g/dL (1.3-4.6) 04/19/22 11:48 Lipase 49 U/L (13-60) 04/16/22 06:30 Procalcitonin 3.42 ng/mL (0-0.5) H 04/18/22 03:41 Urine Color Yellow (Yellow) 04/16/22 Unknown Urine Appearance Clear (CLEAR) 04/16/22 Unknown Urine pH 5 (5-7) 04/16/22 Unknown Ur Specific [place] 1.010 (1.005-1.030) 04/16/22 Unknown Urine Protein 3+ (Negative) H 04/16/22 Unknown Urine Glucose (UA) Norm (Normal) 04/16/22 Unknown Urine Ketones Negative (Negative) 04/16/22 Unknown Urine Blood 3+ (Negative) H 04/16/22 Unknown Urine Nitrate Negative (Negative) 04/16/22 Unknown Urine Bilirubin Neg (Negative) 04/16/22 Unknown Urine Urobilinogen Norm mg/dL (Negative) 04/16/22 Unknown Ur Leukocyte Esterase Negative (Negative) 04/16/22 Unknown Urine RBC 0-4 /hpf (0-2) H 04/16/22 Unknown Urine WBC 0-4 /hpf (0-5) H 04/16/22 Unknown Ur Squamous Epith Cells 0-4 /hpf (0-5) H 04/16/22 Unknown Amorphous Sediment 1+ /hpf 04/16/22 Unknown Urine Bacteria 1+ /hpf (NONE) H 04/16/22 Unknown Ur Random Sodium 10 mmol/L 04/19/22 14:02 Ur Random Potassium 8 mmol/L 04/19/22 14:02 Ur Random Chloride < 10 mmol/L 04/19/22 14:02 Ur Random Urea Nitrogn 440 mg/dL 04/16/22 Unknown Urine Creatinine 47 mg/dL (28-217) 04/16/22 Unknown Coronavirus 229E (PCR) Not detected (NOT DETECT) 04/16/22 07:16 SARS-CoV-2 (PCR) Not detected (NOT DETECT) 04/16/22 07:16 SARS-CoV-2 Ag (Rapid) Negative (Negative) 04/16/22 07:23 Vitals Last Vital Signs Temp 97.1 F L 04/20/22 11:37 Pulse 83 04/20/22 11:52 Resp 18 04/20/22 11:52 BP 154/67 04/20/22 11:37 Pulse Ox 97 04/20/22 11:52 Discharge Plan Discharge Patient Disposition: Home Condition: Stable Prescriptions: New sucralfate 100 mg/mL Suspension 1 g PO AC&BEDTIME Qty: 300 0RF amlodipine 10 mg Tablet 10 mg PO DAILY 30 Days Qty: 30 0RF Augmentin 500-125 mg tablet 1 tab PO BID Qty: 10 0RF Continued (DME) pen needle, diabetic [TechLITE Pen Needle] 31 gauge x 5/16 needle See Rx Instructions .ROUTE .MEDSUPPLY Qty: 1,200 0RF Rx Instructions: As directed (DME) blood-glucose meter [Blood Glucose Monitoring] Kit See Rx Instructions .ROUTE .MEDSUPPLY Qty: 1 0RF Rx Instructions: As directed, May substitute for any brand (DME) wheelchair cushions See Rx Instructions .Route .MEDSUPPLY Qty: 1 0RF Rx Instructions: As directed (DME) Bariatric emy lift See Rx Instructions .Route .MEDSUPPLY Qty: 1 0RF Rx Instructions: BMI 57.5% weight 325# (DME) Alternating pressure mattress and pressure pump See Rx Instructions .Route .MEDSUPPLY Qty: 1 0RF Rx Instructions: As directed dicyclomine 20 mg tablet 20 mg PO QID Qty: 120 3RF (DME) compression socks, medium Misc See Rx Instructions .Route Qty: 2 0RF Rx Instructions: As directed albuterol sulfate [ProAir HFA] 90 mcg/actuation HFA aerosol inhaler 2 puff INHALATION Q4H PRN (Reason: shortness of breath or wheezing) Qty: 8.5 2RF fluoxetine 40 mg capsule 40 mg PO DAILY@2100 Qty: 30 2RF Eliquis 5 mg tablet 5 mg PO BID@0900,2100 Qty: 60 2RF clindamycin phosphate 1 % lotion See Rx Instructions .ROUTE .COMPLEX Qty: 60 1RF Dose Instruction: APPLY TOPICALLY TWICE DAILY NEEDED FOR SKIN IRRITATION Rx Instructions: APPLY TOPICALLY TWICE DAILY NEEDED FOR SKIN IRRITATION triamcinolone acetonide 0.1 % ointment 1 applic TOPICAL DAILY PRN (Reason: itching) Qty: 30 0RF methocarbamol 500 mg tablet 500 mg PO TID PRN (Reason: Muscle Spasm) Qty: 90 2RF hydroxychloroquine 200 mg tablet 200 mg PO BID Qty: 60 0RF cholecalciferol (vitamin D3) [Vitamin D3] 125 mcg (5,000 unit) Tablet 125 mcg PO DAILY 0RF insulin aspart U-100 [Novolog Flexpen U-100 Insulin] 100 unit/mL (3 mL) insulin pen See Rx Instructions .ROUTE .COMPLEX 0RF Rx Instructions: SLIDING SCALE WITH MEALS PRN hydroxyzine pamoate 25 mg capsule 50 mg PO BEDTIME PRN (Reason: Anxiety) 0RF Levemir FlexTouch U-100 Insuln 100 unit/mL (3 mL) insulin pen 125 unit SUBCUT QAM 0RF acetaminophen 325 mg tablet 325 - 650 mg PO Q6H PRN (Reason: Pain) 0RF isosorbide mononitrate 60 mg tablet extended release 24 hr 60 mg PO DAILY 0RF prednisone 2.5 mg tablet 2.5 mg PO DAILY 0RF nitroglycerin [Nitrostat] 0.4 mg Tablet, Sublingual 0.4 mg SUBLINGUAL Q5M PRN (Reason: Chest Pain) 0RF Rx Instructions: do not exceed 3 doses per episode magnesium oxide 400 mg magnesium Tablet 400 mg PO BEDTIME PRN (Reason: Muscle Spasm) 0RF Vitamin B-12 1 tab PO DAILY 0RF fluoxetine 20 mg capsule 20 mg PO DAILY@08 0RF Rx Instructions: continue 40mg 2100 dose eszopiclone [Lunesta] 1 mg tablet 1 mg PO BEDTIME PRN (Reason: Sleep) 0RF potassium chloride 20 mEq tablet extended release 20 meq PO .THREE TIMES WEEKLY 0RF metoclopramide HCl [Reglan] 10 mg tablet 10 mg PO Q6H PRN (Reason: nausea and vomiting) Qty: 10 0RF furosemide 80 mg tablet 80 mg PO DAILY 0RF primidone 50 mg Tablet 50 mg PO DAILY 0RF Changed hydralazine 50 mg tablet 50 mg PO TID Qty: 100 3RF pantoprazole 40 mg tablet,delayed release (DR/EC) 40 mg PO BIDWMEAL Qty: 0 0RF carvedilol 3.125 mg tablet 6.25 mg PO BID Qty: 0 0RF Label Comments: PT STATES SHE TAKES 3.125MG BID FILLED 12/15/21 EXT MED HISTORY SHOWS 12.5MG BID FILLED 03/23/22 30D/S Discontinued bumetanide 2 mg tablet 2 mg PO BID Qty: 60 1RF metoprolol tartrate 50 mg tablet 50 mg PO Q12H Qty: 180 3RF Discharge Orders: Discharge Order (Routine); Ordered 04/20/22 Ordered By: Tom Styles Referrals: Lorenzo Muller, [facility] [Primary Care Provider] - 1 week Discharge Diet: Advance as tolerated, Cardiac and Diabetic Discharge Activity: Resume usual activity and Increase activity as tolerated Patient Instructions: Opioid Safety Activity Restrictions/Additional Instructions: Please follow-up with your primary care provider within next 1 week. Take Augmentin for next 5 days which is the antibiotic. Take Protonix 2 times daily, Carafate which is the antacid 3 times a day before meals. Your blood pressure medications have been changed. Do not take metoprolol or Bumex. Take up Lasix 80 mg daily, Coreg 6.25 mg twice daily. Frequency of hydralazine has been increased to 50 mg 3 times a day. Amlodipine 10 mg daily has been added to her blood pressure medication list. Please check your blood pressure daily at home and maintain a blood pressure diary and follow-up with a primary care provider within next 1 week for further adjustment of antihypertensives. Discharge Attestations Time Spent in Discharge Care*: greater than 30 min Specific Discharge Activities: educating patient, discussing with pcp/other providers, discussing with rn field case manager/social workers/dc planners, docu menting/other paperwork and evaluating patient/reviewing data Status at Discharge: Cognitive status at discharge: cognitively intact , Behavioral status at discharge: cooperative , Functional status at discharge: other assisted ambulation , Overall status at discharge: patient is progressing back to baseline Quality Metrics Clinical Quality Measures [ No reported AMI, CVA or VTE this stay] Coding Level of Care Code Acute Chg FW DC note Diagnoses Intractable nausea and vomiting R11.2 ROSEMARIE (acute kidney injury) N17.9 CHF (congestive heart failure) I50.9 Pneumonitis J18.9 Constipation K59.00 Uncontrolled hypertension I10 Hyponatremia E87.1 Chronic major depressive disorder F32.9
[2022-04-20 16:27] LABS: Lyme AB Screen <0.90 index
--- NOTE | 2022-04-20 17:30 | PC.NURSE ---
dc'd pts piv. reviewed all of patients medications changes, discharge instructions, follow up appointments. verbalized understanding of all discharge instructions. pt left via wc to [facility].
[2022-04-22 21:33] LABS: E. Chaffeensis AB IGG <1:64; E. Chaffeensis AB IGM <1:20
[2022-04-27 17:37] LABS: RMSF IGG NOT DETECTED; RMSF IGM NOT DETECTED
== END 2022-04-20 16:00 | disposition home or self-care (01) | DRG 391 ==
LOC: ER 11:24 → MEDSURG 14:20
PROVIDERS: Admitting Provider Internal Medicine; Emergency Provider Emergency Medicine; PCP Nurse Practitioner; Visit Provider Student in an Organized Health Care Education/Training Program
DX: K29.60 Other gastritis without bleeding (principal); J18.9 Pneumonia, unspecified organism; I13.0 Hypertensive heart and chronic kidney disease with heart failure and stage 1 through stage 4 chronic kidney disease, or unspecified chronic kidney disease; I50.32 Chronic diastolic (congestive) heart failure; J96.11 Chronic respiratory failure with hypoxia; Z68.44 Body mass index [BMI] 60.0-69.9, adult; E87.1 Hypo-osmolality and hyponatremia; N17.9 Acute kidney failure, unspecified; I5A Non-ischemic myocardial injury (non-traumatic); I48.3 Typical atrial flutter; J44.9 Chronic obstructive pulmonary disease, unspecified; E11.22 Type 2 diabetes mellitus with diabetic chronic kidney disease; N18.9 Chronic kidney disease, unspecified; Z87.891 Personal history of nicotine dependence; Z99.81 Dependence on supplemental oxygen; E66.9 Obesity, unspecified; E87.8 Other disorders of electrolyte and fluid balance, not elsewhere classified; D69.6 Thrombocytopenia, unspecified; R74.01 Elevation of levels of liver transaminase levels; K58.9 Irritable bowel syndrome, unspecified; M25.50 Pain in unspecified joint; Z79.01 Long term (current) use of anticoagulants; E11.42 Type 2 diabetes mellitus with diabetic polyneuropathy; G47.33 Obstructive sleep apnea (adult) (pediatric); F32.9 Major depressive disorder, single episode, unspecified; N39.9 Disorder of urinary system, unspecified; K59.00 Constipation, unspecified; Z79.4 Long term (current) use of insulin
CPT/HCPCS: 36415; 36416; 36600; 51798; 70450; 71045; 71275; 74174; 74177; 80053; 81001; 81003; 82436; 82570; 82803; 82962; 83605; 83690; 83735; 83880; 84100; 84133; 84145; 84300; 84484; 84540; 85007; 85025; 85378; 86140; 86618; 86666; 86757; 87040; 87426; 87635; 87641; 93005; 94640; 96365; 96372; 96374; 96375; 96376; 97110; 97116; 97162; 97165; 97530; 99284; 99285; J0360; J1815 ×2; J2405; J2543; J2765; J3535; J7030; J7040; J7512; J8597; Q0169; Q9967

== ENCOUNTER → 2022-05-13 15:13 | Outpatient (BNVA) | payer MEDICARE, MEDICAID, SELFPAY | PROVIDERS: PCP Nurse Practitioner; Visit Provider Nurse Practitioner | DX: N18.30 Chronic kidney disease, stage 3 unspecified (principal); R11.2 Nausea with vomiting, unspecified | CPT/HCPCS: 80053; 81000; 85025 ==

== ENCOUNTER 2022-05-31 10:52 | Emergency (ER) | payer MEDICARE, MEDICAID, SELFPAY ==
[2022-05-31] VITALS (8 sets, daily range): BP systolic 166–193; BP diastolic 73–138; PULSE 79–90; RESP 18–27; TEMP 36.9; O2SAT 78–100; BMI 54.1
--- NOTE | 2022-05-31 11:45 | XRR_ITS ---
PROCEDURE INFORMATION: Exam: XR Chest Exam date and time: 05/31/2022 11:55 AM Age: 67 years old Clinical indication: Cough and dyspnea and other: Swelling; Additional info: Dyspnea/cough TECHNIQUE: Imaging protocol: Radiologic exam of the chest. Views: 1 view. COMPARISON: CR XR chest 1V portable [id number] 04/14/2022 6:35 AM FINDINGS: Lungs: There are bibasilar patchy hazy opacities which could represent patchy edema or pneumonia. Pleural spaces: Costophrenic angles are blunted consistent with small effusions. Heart/Mediastinum: The cardiac silhouette is enlarged but unchanged. Bones/joints: Unremarkable. XR/XR chest 1V portable [id number] IMPRESSION: 1. Stable cardiomegaly. 2. Patchy hazy bibasilar patchy opacities with small effusions. This could be due to heart failure with interstitial edema.
--- NOTE | 2022-05-31 11:45 | ECG_ITS ---
[facility] Test Date: 2022-05-31 Pat Name: Jennifer Novak Department: Room: Gender: Female Boom Tender: : 1955 Requested By: Lazaro Willson Order Number: [id number] Cierra MD: Addison Morales M.D. Measurements Intervals [place] Rate: 78 P: 63 WI: 204 QRS: -49 QRSD: 154 T: 54 QT: 427 QTc: 489 Interpretive Statements SINUS RHYTHM LEFT AXIS DEVIATION [QRS AXIS < -30] RIGHT BUNDLE BRANCH BLOCK [120+ ms QRS DURATION, UPRIGHT V1, 40+ ms S IN I/aVL/V4/V5/V6] SEPTAL MYOCARDIAL INFARCTION , OF INDETERMINATE AGE [40+ ms Q WAVE IN V1/V2] Compared to ECG 04/16/2022 07:04:18 Left-axis deviation now present Myocardial infarct finding now present Sinus tachycardia no longer present Right-axis deviation no longer present Electronically Signed On 05-31-2022 18:20:51 CDT by Addison Morales M.D. [email or web address]
--- NOTE | 2022-05-31 12:19 | ED_ITS ---
Documented by User: Lazaro MosesDO 06/09/22 14:34 HPI - SOB/Dyspnea General: Chief Complaint: Shortness of Breath/Dyspnea Stated Complaint: SOB FOR 2 DAYS Time Seen by Provider: 05/31/22 11:20 Source: patient Mode of arrival: EMS History of Present Illness: HPI Narrative: 67-year-old morbidly obese female presents emergency room with complaint of shortness of breath and abdominal pains. Specifically she is complaining that her abdomen has shifted. She has a very large pannus that is actually appears lopsided to the left she says this is a new finding for her. She has COPD and is chronically on 2 L by nasal cannula additionally she has had some high output cardiac failure with some diastolic dysfunction preserved ejection fraction and August 2018 she had an angiogram which did not show any acute coronary disease but evidently there was a fistulous communication from a diagonal branch of the LAD to the left ventricle. Her left ventricular ejection fraction was 55%. She has not had an echo since that time that I can find. Today she is complaining of multiple different pains including pain in her back that she associates with her kidney pain in her chest and complaining of the abdominal distortion and shortness of breath her sats are 100% on 2 L which is her normal oxygen supplementation due to her COPD and congestive heart failure. Chest pain has been a chronic ongoing issue as is of the abdominal pain review of her chart shows she has been to the emergency room multiple times with a couple of admissions for similar type complaints no significant finding made on any of those visits. She has had some chronic and acute on chronic kidney issues at times. Patient mention she recently had a biopsy of the left breast for possible cancer looking to the chart that was done in December and was negative. MD elicited complaint: shortness of breath Pertinent past history: COPD and congestive heart failure Onset (ago): year(s) Timing: constant Severity: moderate Exacerbating factors: lying flat, exertion and coughing Relieving factors: oxygen and rest Known history of: COPD and congestive heart failure Associated symptoms: Reports abdominal pain, chest pain, cough, myalgias and nausea; Deny chest congestion, diaphoresis, dizziness, extremity pain, fever(s), hemoptysis, lightheadedness, orthopnea, palpitations, paresthesias, polydipsia, polyuria, rash, sense of impending doom, syncope or vomiting Treatment prior to arrival: oxygen Review of Systems Const: Denies: fever(s), chills, fatigue, malaise or diaphoresis ENMT: Denies: throat pain, ear or mastoid pain, nasal discharge or nasal congestion Card: Reports: chest pain; Denies: palpitations, lightheadedness, syncope or orthopnea Resp: Reports: dyspnea and non-productive cough; Denies: productive cough, wheezing, hemoptysis or chest congestion GI: Reports: abdominal pain and nausea; Denies: vomiting : Denies: flank pain, difficulty voiding, dysuria, urinary frequency or urinary urgency Musc: Denies: extremity pain Skin/Breast: Denies: rash or pruritus Neuro: Denies: dizziness Endo: Denies: polyuria or polydipsia PFSH ED PFSH: Medical History Acute exacerbation of CHF (congestive heart failure) Advised to contact social science instructor Anxiety Atrial flutter Atypical chest pain Back pain Benign hypertension Breast pain Chronic back pain Chronic major depressive disorder Chronic obstructive pulmonary disease, unspecified CKD (chronic kidney disease) CKD (chronic kidney disease) stage 3, GFR 30-59 ml/min Constipation COPD, moderate Coronary artery fistula Debility Diabetic neuropathy associated with type 2 diabetes mellitus Dietary noncompliance Diverticulosis Environmental and seasonal allergies Essential tremor Fibromyalgia Fracture of distal end of fibula Fracture of fibula, left, closed High risk medication use IBS (irritable bowel syndrome) Inflammatory arthritis Left arm pain Left lumbar radiculopathy Major depression Mild cognitive impairment with memory loss Mobility impaired Nausea & vomiting Near syncope Noncompliance with diabetes treatment Not consistent with diet Obesity Pain of both breasts Peripheral neuropathy Polyarthralgia Reduced ejection fraction concurrent with and due to chronic heart failure Severe obstructive sleep apnea Situational anxiety Suspected COVID-19 virus infection Syncope and collapse 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 Uncontrolled hypertension Urinary disorder Vitamin D deficiency Vomiting Surgical History History of section 4 times History of cholecystectomy History of hysterectomy with BSO History of tonsillectomy Hx of colonoscopy Hx of esophagogastroduodenoscopy Family History Brother Bleeding disorder CAD (coronary artery disease) Father CAD (coronary artery disease) Chronic kidney disease (CKD) Mother CAD (coronary artery disease) Cancer Diabetes Family/Other Cancer Other CHF (congestive heart failure) Heart disease Hypertension Denies family history of Clotting disorder Dementia Suicide Anesthesia complication Lung disease Stroke Social History Smoking and tobacco status: former smoker Second hand smoke exposure: No Smoking risk assessment/counseling performed?: No Alcohol intake: never Desire information about alcohol rehabilitation?: No Counseling given: No Desire information about substance/drug rehabilitation?: No Counseling given: No Adopted: No Caregiver/support person: Yes Lives independently: No Household members: children and other Details: Son, sometimes grandson Housing: House Marital status: Single service: No Current occupational status: disabled History of recent travel: No Current gender identity: Female Physical Exam Const: GENERAL APPEARANCE: cooperative and comfortable ORIENTATION/CONSCIOUSNESS: Yes awake, Yes oriented to person, Yes oriented to place and Yes oriented to time HENMT: COMMON NORMALS: normocephalic, atraumatic and hearing grossly normal bilaterally HEAD & SCALP: normocephalic and atraumatic Neck/C-Spine: COMMON NORMALS: no JVD Resp: COMMON NORMALS: normal respiratory effort, No retractions, No use of accessory muscles and clear to auscultation bilaterally AUSCULTATION: clear to auscultation bilaterally Cardio: COMMON NORMALS: no JVD, regular rate, regular rhythm and No murmurs present (Cardio) RATE: regular rate RHYTHM: regular rhythm GI: COMMON NORMALS: Soft to palpation and No hepatosplenomegaly present AUSCULTATION: Yes normoactive bowel sounds PALPATION: Yes Soft to palpation, No Tenderness to palpation present (GI), No Guarding due to palpation present (GI) and Yes No hepatosplenomegaly present Extremity: COMMON NORMALS: normal to inspection, capillary refill normal, no clubbing, cyanosis or edema, no calf tenderness and no pedal edema Neuro: SENSORIUM/ORIENTATION: Yes oriented to person, Yes oriented to place and Yes oriented to time Skin: COMMON NORMALS: no rashes or lesions noted GENERAL SKIN EXAM: no rashes or lesions noted Course Vital Signs: Vital signs: Vital Signs Temperature 98.4 F 05/31/22 16:56 Pulse Rate 90 05/31/22 17:00 Respiratory Rate 27 H 05/31/22 18:52 Blood Pressure 166/118 05/31/22 17:00 Pulse Oximetry 95 05/31/22 20:24 MDM - SOB/Dyspnea Medical Decision Making Care signed out to Dr. Dasilva at change of shift. See final notes for diagnosis and disposition. Patient presents with dyspnea that is chronic in nature if she has no acute findings here patient is stable for discharge she is stable on her home oxygen with no hypoxia she is to follow-up with her PCP and return if worsening. Lab Data : 05/31/22 13:00 05/31/22 13:00 Labs/Radiology: Radiology Impressions Chest X-Ray 05/31/22 11:45 IMPRESSION: 1. Stable cardiomegaly. 2. Patchy hazy bibasilar patchy opacities with small effusions. This could be due to heart failure with interstitial edema. Chest CTA 05/31/22 17:11 IMPRESSION: 1. Technically limited exam due to artifacts as described. No PE with limitations described above. Dilatation of main pulmonary artery. 2. Cardiomegaly with no obvious vascular congestion. 3. Bilateral pleural effusions with adjacent compressive atelectasis. Nonspecific mosaic pulmonary attenuations. See discussion above. Otherwise no dense consolidation or round ground-glass opacity. 4. Nonspecific mediastinal adenopathy. Follow-up should be considered. 5. Probable hepatic cirrhosis. Splenomegaly. Laboratory Results WBC 6.7 10^3/uL (4.0-10.0) 05/31/22 13:00 RBC 3.22 10^6/uL (4.1-5.3) L 05/31/22 13:00 Hgb 9.4 g/dL (11.5-15.3) L 05/31/22 13:00 Hct 28.5 % (37.0-47.0) L 05/31/22 13:00 MCV 88.5 fl (81-99) 05/31/22 13:00 MCH 29.2 pg (28.0-34.0) 05/31/22 13:00 MCHC 33.0 g/dL (30.0-36.0) 05/31/22 13:00 RDW 13.0 % (12.1-15.1) 05/31/22 13:00 Plt Count 217 10^3/cmm (130-400) 05/31/22 13:00 MPV 10.5 fL (7.4-10.4) H 05/31/22 13:00 Neut % (Auto) 68.7 % 05/31/22 13:00 Lymph % (Auto) 21.4 % 05/31/22 13:00 [place] % (Auto) 6.5 % 05/31/22 13:00 Eos % (Auto) 2.5 % 05/31/22 13:00 Baso % (Auto) 0.6 % 05/31/22 13:00 Neut # (Auto) 4.62 10^3/uL (1.8-7.7) 05/31/22 13:00 Lymph # (Auto) 1.4 10^3/uL (0.8-4.8) 05/31/22 13:00 [place] # (Auto) 0.4 10^3/uL (0.2-0.9) 05/31/22 13:00 Eos # (Auto) 0.2 10^3/uL (0.0-0.8) 05/31/22 13:00 Baso # (Auto) 0.0 10^3/uL (0.0-0.1) 05/31/22 13:00 Nucleated RBC % (auto) 0 % 05/31/22 13:00 Nucleated RBCs # 0.0 /100WBC 05/31/22 13:00 Specimen Type Arterial 05/31/22 13:04 Sample Site Radial, left 05/31/22 13:04 ABG pH 7.46 (7.35-7.45) H 05/31/22 13:04 ABG pCO2 42.6 mmHg (35-45) 05/31/22 13:04 ABG pO2 80.5 mmHg (80.0-100.0) 05/31/22 13:04 ABG HCO3 30.2 mmol/L (22-26) H 05/31/22 13:04 ABG O2 Saturation 97.6 05/31/22 13:04 ABG Base Excess 5.7 mmol/L (-2.0-2.0) H 05/31/22 13:04 Sharad Test Pos 05/31/22 13:04 A-a O2 Gradient 8.5 mmHg (5-10) 05/31/22 13:04 Hematocrit 33.8 % (37-47) L 05/31/22 13:04 Hgb O2 Saturation 95.2 % (95-100) 05/31/22 13:04 Carboxyhemoglobin 1.5 %THgb (0.4-20.1) 05/31/22 13:04 Methemoglobin 0.9 % (0.4-1.5) 05/31/22 13:04 Total Hemoglobin 11.0 g/dL (12-16) L 05/31/22 13:04 Sodium 141.0 mmol/L (131-143) 05/31/22 13:04 Potassium 4.0 mmol/L (3.5-5.0) 05/31/22 13:04 Glucose 193.0 mg/dL (70-115) H 05/31/22 13:04 Ionized Calcium 1.3 mmol/L (1.1-1.4) 05/31/22 13:04 O2 Delivery Device Nc 05/31/22 13:04 O2 Liters/Min 2.0 % 05/31/22 13:04 FiO2 28.0 % 05/31/22 13:04 Supervisor Insecticide ID glc 05/31/22 13:04 Sodium 138 mmol/L (136-145) 05/31/22 13:00 Potassium 4.0 mmol/L (3.5-5.1) 05/31/22 13:00 Chloride 100 mmol/L (98-107) 05/31/22 13:00 Carbon Dioxide 28 mmol/L (22-29) 05/31/22 13:00 Anion Gap 14.0 (5-19) 05/31/22 13:00 BUN 30 mg/dL (8-23) H 05/31/22 13:00 Creatinine 1.2 mg/dL (0.5-0.9) H 05/31/22 13:00 GFR Calculation 45.1 mL/min (90-130) L 05/31/22 13:00 Glucose 184 mg/dL (65-115) H 05/31/22 13:00 POC Glucose 157 mg/dL (70-110) H 05/31/22 14:47 Calculated Osmolality 297 mOsm/kg (285-295) H 05/31/22 13:00 Calcium 9.6 mg/dL (8.5-10.5) 05/31/22 13:00 Total Bilirubin 0.2 mg/dL (0.15-1.2) 05/31/22 13:00 AST 14 U/L (0-32) 05/31/22 13:00 ALT 14 U/L (0-33) 05/31/22 13:00 Alkaline Phosphatase 73 IU/L (35-105) 05/31/22 13:00 Troponin T Baseline 27 ng/L (0-10) H 05/31/22 13:00 Troponin T 120 Minute 26.25 ng/L (0-10) H 05/31/22 15:06 Delta Troponin T -0.75 ABS# (0-10) L 05/31/22 15:06 NT-Pro-B Natriuret Pep 1417 pg/mL (0-125) H 05/31/22 13:00 Total Protein 6.7 g/dL (6.6-8.7) 05/31/22 13:00 Albumin 3.4 g/dL (3.5-5.2) L 05/31/22 13:00 Globulin 3.3 g/dL (1.3-4.6) 05/31/22 13:00 Urine Color Yellow (Yellow) 05/31/22 14:19 Urine Appearance Clear (CLEAR) 05/31/22 14:19 Urine pH 6 (5-7) 05/31/22 14:19 Ur Specific [place] 1.015 (1.005-1.030) 05/31/22 14:19 Urine Protein 3+ (Negative) H 05/31/22 14:19 Urine Glucose (UA) Norm (Normal) 05/31/22 14:19 Urine Ketones Negative (Negative) 05/31/22 14:19 Urine Blood 2+ (Negative) H 05/31/22 14:19 Urine Nitrate Negative (Negative) 05/31/22 14:19 Urine Bilirubin Neg (Negative) 05/31/22 14:19 Urine Urobilinogen Norm mg/dL (Negative) 05/31/22 14:19 Ur Leukocyte Esterase Negative (Negative) 05/31/22 14:19 Urine RBC 5-10 /hpf (0-2) H 05/31/22 14:19 Urine WBC Rare /hpf (0-5) 05/31/22 14:19 Ur Squamous Epith Cells 0-4 /hpf (0-5) H 05/31/22 14:19 Amorphous Sediment Not Reportable 05/31/22 14:19 Urine Bacteria Trace /hpf (NONE) 05/31/22 14:19 Discharge Plan Discharge Patient Disposition: Home Clinical Impression: CHF (congestive heart failure), COPD (chronic obstructive pulmonary disease), Chronic back pain, CKD (chronic kidney disease) stage 3, GFR 30-59 ml/min, Fibromyalgia, Hematuria Condition: Stable Prescriptions: New levofloxacin 750 mg tablet 750 mg PO DAILY 10 Days Qty: 10 0RF No Action (DME) pen needle, diabetic [TechLITE Pen Needle] 31 gauge x 5/16 needle See Rx Instructions .ROUTE .MEDSUPPLY Qty: 1,200 0RF Rx Instructions: As directed (DME) blood-glucose meter [Blood Glucose Monitoring] Kit See Rx Instructions .ROUTE .MEDSUPPLY Qty: 1 0RF Rx Instructions: As directed, May substitute for any brand (DME) wheelchair cushions See Rx Instructions .Route .MEDSUPPLY Qty: 1 0RF Rx Instructions: As directed (DME) Bariatric emy lift See Rx Instructions .Route .MEDSUPPLY Qty: 1 0RF Rx Instructions: BMI 57.5% weight 325# (DME) Alternating pressure mattress and pressure pump See Rx Instructions .Route .MEDSUPPLY Qty: 1 0RF Rx Instructions: As directed dicyclomine 20 mg tablet 20 mg PO QID Qty: 120 3RF scopolamine base 1 mg over 3 days patch 3 day 1 patch transdermal Q3D PRN (Reason: nausea and vomiting) Qty: 10 0RF albuterol sulfate [ProAir HFA] 90 mcg/actuation HFA aerosol inhaler 2 puff INHALATION Q4H PRN (Reason: shortness of breath or wheezing) Qty: 8.5 2RF Eliquis 5 mg tablet 5 mg PO BID@0900,2100 Qty: 60 2RF fluoxetine 40 mg capsule 40 mg PO DAILY@2100 Qty: 30 2RF fluoxetine 20 mg capsule 20 mg PO DAILY@08 Qty: 30 2RF Rx Instructions: continue 40mg 2100 dose insulin aspart U-100 [Novolog Flexpen U-100 Insulin] 100 unit/mL (3 mL) insulin pen See Rx Instructions SUBCUT TID Qty: 15 2RF Rx Instructions: 6-27U SUBCUT three times daily; Levemir FlexTouch U-100 Insuln 100 unit/mL (3 mL) insulin pen 125 unit SUBCUT QAM Qty: 30 2RF (DME) compression socks, medium Misc See Rx Instructions .Route Qty: 2 0RF Rx Instructions: As directed clindamycin phosphate 1 % lotion See Rx Instructions .ROUTE .COMPLEX Qty: 60 1RF Dose Instruction: APPLY TOPICALLY TWICE DAILY NEEDED FOR SKIN IRRITATION Rx Instructions: APPLY TOPICALLY TWICE DAILY NEEDED FOR SKIN IRRITATION triamcinolone acetonide 0.1 % ointment 1 applic TOPICAL DAILY PRN (Reason: itching) Qty: 30 0RF hydroxychloroquine 200 mg tablet 200 mg PO BID Qty: 60 0RF primidone 50 mg tablet See Rx Instructions .ROUTE .COMPLEX Qty: 60 5RF Dose Instruction: TAKE ONE TABLET BY MOUTH WITH SUPPER FOR 1 WEEK THEN TAKE ONE TABLET BY MOUTH TWICE DAILY Rx Instructions: TAKE ONE TABLET BY MOUTH WITH SUPPER FOR 1 WEEK THEN TAKE ONE TABLET BY MOUTH TWICE DAILY cholecalciferol (vitamin D3) [Vitamin D3] 125 mcg (5,000 unit) Tablet 125 mcg PO DAILY 0RF acetaminophen 325 mg tablet 325 - 650 mg PO Q6H PRN (Reason: Pain) 0RF isosorbide mononitrate 60 mg tablet extended release 24 hr 60 mg PO DAILY 0RF Vitamin B-12 50 mcg Tablet 50 mcg PO DAILY Qty: 0 0RF nitroglycerin [Nitrostat] 0.4 mg Tablet, Sublingual 0.4 mg SUBLINGUAL Q5M PRN (Reason: Chest Pain) 0RF Rx Instructions: do not exceed 3 doses per episode magnesium oxide 400 mg magnesium Tablet 400 mg PO BEDTIME PRN (Reason: Muscle Spasm) 0RF potassium chloride 20 mEq tablet extended release 20 meq PO DAILY 0RF furosemide 80 mg tablet 80 mg PO DAILY 0RF sucralfate 100 mg/mL Suspension 1 g PO AC&BEDTIME Qty: 300 0RF pantoprazole 40 mg tablet,delayed release (DR/EC) 40 mg PO BIDWMEAL Qty: 0 0RF carvedilol 12.5 mg tablet 6.25 mg PO BID 0RF hydroxyzine pamoate 50 mg capsule 50 mg PO TID 0RF hydralazine 50 mg tablet 25 mg PO BID 0RF prednisone 2.5 mg tablet 2.5 mg PO DAILY 0RF metoprolol tartrate 50 mg tablet 25 mg PO BID 0RF Discharge Orders: Discharge ED (Routine); Ordered 05/31/22 Ordered By: Lazaro Moses Referrals: Lorenzo Muller, PARAG [Primary Care Provider] - Discharge Diet: Advance as tolerated Discharge Activity: Resume usual activity Patient Instructions: Heart Failure (ED) Coding Level of Care Code ED Jewelry Dipper for Chg Fwd Exam Comprehensive Documented by User: Loly Dasilva MD 05/31/22 20:28 HPI - SOB/Dyspnea General: Chief Complaint: Shortness of Breath/Dyspnea Stated Complaint: SOB FOR 2 DAYS Time Seen by Provider: 05/31/22 11:20 PFS ED PFSH: Medical History Acute exacerbation of CHF (congestive heart failure) Advised to contact social science instructor Anxiety Atrial flutter Atypical chest pain Back pain Benign hypertension Breast pain Chronic back pain Chronic major depressive disorder Chronic obstructive pulmonary disease, unspecified CKD (chronic kidney disease) CKD (chronic kidney disease) stage 3, GFR 30-59 ml/min Constipation COPD, moderate Coronary artery fistula Debility Diabetic neuropathy associated with type 2 diabetes mellitus Dietary noncompliance Diverticulosis Environmental and seasonal allergies Essential tremor Fibromyalgia Fracture of distal end of fibula Fracture of fibula, left, closed High risk medication use IBS (irritable bowel syndrome) Inflammatory arthritis Left arm pain Left lumbar radiculopathy Major depression Mild cognitive impairment with memory loss Mobility impaired Nausea & vomiting Near syncope Noncompliance with diabetes treatment Not consistent with diet Obesity Pain of both breasts Peripheral neuropathy Polyarthralgia Reduced ejection fraction concurrent with and due to chronic heart failure Severe obstructive sleep apnea Situational anxiety Suspected COVID-19 virus infection Syncope and collapse 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 Uncontrolled hypertension Urinary disorder Vitamin D deficiency Vomiting Surgical History History of section 4 times History of cholecystectomy History of hysterectomy with BSO History of tonsillectomy Hx of colonoscopy Hx of esophagogastroduodenoscopy Family History Brother Bleeding disorder CAD (coronary artery disease) Father CAD (coronary artery disease) Chronic kidney disease (CKD) Mother CAD (coronary artery disease) Cancer Diabetes Family/Other Cancer Other CHF (congestive heart failure) Heart disease Hypertension Denies family history of Clotting disorder Dementia Suicide Anesthesia complication Lung disease Stroke Social History Smoking and tobacco status: former smoker Second hand smoke exposure: No Smoking risk assessment/counseling performed?: No Alcohol intake: never Desire information about alcohol rehabilitation?: No Counseling given: No Desire information about substance/drug rehabilitation?: No Counseling given: No Adopted: No Caregiver/support person: Yes Lives independently: No Household members: children and other Details: Son, sometimes grandson Housing: House Marital status: Single service: No Current occupational status: disabled History of recent travel: No Current gender identity: Female Course Vital Signs: Vital signs: Vital Signs Temperature 98.4 F 05/31/22 16:56 Pulse Rate 90 05/31/22 17:00 Respiratory Rate 27 H 05/31/22 18:52 Blood Pressure 166/118 05/31/22 17:00 Pulse Oximetry 95 05/31/22 20:24 MDM - SOB/Dyspnea Medical Decision Making Patient presents with dyspnea that is chronic in nature if she has no acute fin dings here patient is stable for discharge she is stable on her home oxygen with no hypoxia she is to follow-up with her PCP and return if worsening. Lab Data : 05/31/22 13:00 05/31/22 13:00 Labs/Radiology: Radiology Impressions Chest X-Ray 05/31/22 11:45 IMPRESSION: 1. Stable cardiomegaly. 2. Patchy hazy bibasilar patchy opacities with small effusions. This could be due to heart failure with interstitial edema. Chest CTA 05/31/22 17:11 IMPRESSION: 1. Technically limited exam due to artifacts as described. No PE with limitations described above. Dilatation of main pulmonary artery. 2. Cardiomegaly with no obvious vascular congestion. 3. Bilateral pleural effusions with adjacent compressive atelectasis. Nonspecific mosaic pulmonary attenuations. See discussion above. Otherwise no dense consolidation or round ground-glass opacity. 4. Nonspecific mediastinal adenopathy. Follow-up should be considered. 5. Probable hepatic cirrhosis. Splenomegaly. Laboratory Results WBC 6.7 10^3/uL (4.0-10.0) 05/31/22 13:00 RBC 3.22 10^6/uL (4.1-5.3) L 05/31/22 13:00 Hgb 9.4 g/dL (11.5-15.3) L 05/31/22 13:00 Hct 28.5 % (37.0-47.0) L 05/31/22 13:00 MCV 88.5 fl (81-99) 05/31/22 13:00 MCH 29.2 pg (28.0-34.0) 05/31/22 13:00 MCHC 33.0 g/dL (30.0-36.0) 05/31/22 13:00 RDW 13.0 % (12.1-15.1) 05/31/22 13:00 Plt Count 217 10^3/cmm (130-400) 05/31/22 13:00 MPV 10.5 fL (7.4-10.4) H 05/31/22 13:00 Neut % (Auto) 68.7 % 05/31/22 13:00 Lymph % (Auto) 21.4 % 05/31/22 13:00 [place] % (Auto) 6.5 % 05/31/22 13:00 Eos % (Auto) 2.5 % 05/31/22 13:00 Baso % (Auto) 0.6 % 05/31/22 13:00 Neut # (Auto) 4.62 10^3/uL (1.8-7.7) 05/31/22 13:00 Lymph # (Auto) 1.4 10^3/uL (0.8-4.8) 05/31/22 13:00 [place] # (Auto) 0.4 10^3/uL (0.2-0.9) 05/31/22 13:00 Eos # (Auto) 0.2 10^3/uL (0.0-0.8) 05/31/22 13:00 Baso # (Auto) 0.0 10^3/uL (0.0-0.1) 05/31/22 13:00 Nucleated RBC % (auto) 0 % 05/31/22 13:00 Nucleated RBCs # 0.0 /100WBC 05/31/22 13:00 Specimen Type Arterial 05/31/22 13:04 Sample Site Radial, left 05/31/22 13:04 ABG pH 7.46 (7.35-7.45) H 05/31/22 13:04 ABG pCO2 42.6 mmHg (35-45) 05/31/22 13:04 ABG pO2 80.5 mmHg (80.0-100.0) 05/31/22 13:04 ABG HCO3 30.2 mmol/L (22-26) H 05/31/22 13:04 ABG O2 Saturation 97.6 05/31/22 13:04 ABG Base Excess 5.7 mmol/L (-2.0-2.0) H 05/31/22 13:04 Sharad Test Pos 05/31/22 13:04 A-a O2 Gradient 8.5 mmHg (5-10) 05/31/22 13:04 Hematocrit 33.8 % (37-47) L 05/31/22 13:04 Hgb O2 Saturation 95.2 % (95-100) 05/31/22 13:04 Carboxyhemoglobin 1.5 %THgb (0.4-20.1) 05/31/22 13:04 Methemoglobin 0.9 % (0.4-1.5) 05/31/22 13:04 Total Hemoglobin 11.0 g/dL (12-16) L 05/31/22 13:04 Sodium 141.0 mmol/L (131-143) 05/31/22 13:04 Potassium 4.0 mmol/L (3.5-5.0) 05/31/22 13:04 Glucose 193.0 mg/dL (70-115) H 05/31/22 13:04 Ionized Calcium 1.3 mmol/L (1.1-1.4) 05/31/22 13:04 O2 Delivery Device Nc 05/31/22 13:04 O2 Liters/Min 2.0 % 05/31/22 13:04 FiO2 28.0 % 05/31/22 13:04 Supervisor Insecticide ID glc 05/31/22 13:04 Sodium 138 mmol/L (136-145) 05/31/22 13:00 Potassium 4.0 mmol/L (3.5-5.1) 05/31/22 13:00 Chloride 100 mmol/L (98-107) 05/31/22 13:00 Carbon Dioxide 28 mmol/L (22-29) 05/31/22 13:00 Anion Gap 14.0 (5-19) 05/31/22 13:00 BUN 30 mg/dL (8-23) H 05/31/22 13:00 Creatinine 1.2 mg/dL (0.5-0.9) H 05/31/22 13:00 GFR Calculation 45.1 mL/min (90-130) L 05/31/22 13:00 Glucose 184 mg/dL (65-115) H 05/31/22 13:00 POC Glucose 157 mg/dL (70-110) H 05/31/22 14:47 Calculated Osmolality 297 mOsm/kg (285-295) H 05/31/22 13:00 Calcium 9.6 mg/dL (8.5-10.5) 05/31/22 13:00 Total Bilirubin 0.2 mg/dL (0.15-1.2) 05/31/22 13:00 AST 14 U/L (0-32) 05/31/22 13:00 ALT 14 U/L (0-33) 05/31/22 13:00 Alkaline Phosphatase 73 IU/L (35-105) 05/31/22 13:00 Troponin T Baseline 27 ng/L (0-10) H 05/31/22 13:00 Troponin T 120 Minute 26.25 ng/L (0-10) H 05/31/22 15:06 Delta Troponin T -0.75 ABS# (0-10) L 05/31/22 15:06 NT-Pro-B Natriuret Pep 1417 pg/mL (0-125) H 05/31/22 13:00 Total Protein 6.7 g/dL (6.6-8.7) 05/31/22 13:00 Albumin 3.4 g/dL (3.5-5.2) L 05/31/22 13:00 Globulin 3.3 g/dL (1.3-4.6) 05/31/22 13:00 Urine Color Yellow (Yellow) 05/31/22 14:19 Urine Appearance Clear (CLEAR) 05/31/22 14:19 Urine pH 6 (5-7) 05/31/22 14:19 Ur Specific [place] 1.015 (1.005-1.030) 05/31/22 14:19 Urine Protein 3+ (Negative) H 05/31/22 14:19 Urine Glucose (UA) Norm (Normal) 05/31/22 14:19 Urine Ketones Negative (Negative) 05/31/22 14:19 Urine Blood 2+ (Negative) H 05/31/22 14:19 Urine Nitrate Negative (Negative) 05/31/22 14:19 Urine Bilirubin Neg (Negative) 05/31/22 14:19 Urine Urobilinogen Norm mg/dL (Negative) 05/31/22 14:19 Ur Leukocyte Esterase Negative (Negative) 05/31/22 14:19 Urine RBC 5-10 /hpf (0-2) H 05/31/22 14:19 Urine WBC Rare /hpf (0-5) 05/31/22 14:19 Ur Squamous Epith Cells 0-4 /hpf (0-5) H 05/31/22 14:19 Amorphous Sediment Not Reportable 05/31/22 14:19 Urine Bacteria Trace /hpf (NONE) 05/31/22 14:19 Discharge Plan Discharge Patient Disposition: Home Clinical Impression: CHF (congestive heart failure), COPD (chronic obstructive pulmonary disease), Chronic back pain, CKD (chronic kidney disease) stage 3, GFR 30-59 ml/min, Fibromyalgia, Hematuria Condition: Stable Prescriptions: New levofloxacin 750 mg tablet 750 mg PO DAILY 10 Days Qty: 10 0RF No Action (DME) pen needle, diabetic [TechLITE Pen Needle] 31 gauge x 5/16 needle See Rx Instructions .ROUTE .MEDSUPPLY Qty: 1,200 0RF Rx Instructions: As directed (DME) blood-glucose meter [Blood Glucose Monitoring] Kit See Rx Instructions .ROUTE .MEDSUPPLY Qty: 1 0RF Rx Instructions: As directed, May substitute for any brand (DME) wheelchair cushions See Rx Instructions .Route .MEDSUPPLY Qty: 1 0RF Rx Instructions: As directed (DME) Bariatric emy lift See Rx Instructions .Route .MEDSUPPLY Qty: 1 0RF Rx Instructions: BMI 57.5% weight 325# (DME) Alternating pressure mattress and pressure pump See Rx Instructions .Route .MEDSUPPLY Qty: 1 0RF Rx Instructions: As directed dicyclomine 20 mg tablet 20 mg PO QID Qty: 120 3RF scopolamine base 1 mg over 3 days patch 3 day 1 patch transdermal Q3D PRN (Reason: nausea and vomiting) Qty: 10 0RF albuterol sulfate [ProAir HFA] 90 mcg/actuation HFA aerosol inhaler 2 puff INHALATION Q4H PRN (Reason: shortness of breath or wheezing) Qty: 8.5 2RF Eliquis 5 mg tablet 5 mg PO BID@0900,2100 Qty: 60 2RF fluoxetine 40 mg capsule 40 mg PO DAILY@2100 Qty: 30 2RF fluoxetine 20 mg capsule 20 mg PO DAILY@08 Qty: 30 2RF Rx Instructions: continue 40mg 2100 dose insulin aspart U-100 [Novolog Flexpen U-100 Insulin] 100 unit/mL (3 mL) insulin pen See Rx Instructions SUBCUT TID Qty: 15 2RF Rx Instructions: 6-27U SUBCUT three times daily; Levemir FlexTouch U-100 Insuln 100 unit/mL (3 mL) insulin pen 125 unit SUBCUT QAM Qty: 30 2RF (DME) compression socks, medium Misc See Rx Instructions .Route Qty: 2 0RF Rx Instructions: As directed clindamycin phosphate 1 % lotion See Rx Instructions .ROUTE .COMPLEX Qty: 60 1RF Dose Instruction: APPLY TOPICALLY TWICE DAILY NEEDED FOR SKIN IRRITATION Rx Instructions: APPLY TOPICALLY TWICE DAILY NEEDED FOR SKIN IRRITATION triamcinolone acetonide 0.1 % ointment 1 applic TOPICAL DAILY PRN (Reason: itching) Qty: 30 0RF hydroxychloroquine 200 mg tablet 200 mg PO BID Qty: 60 0RF primidone 50 mg tablet See Rx Instructions .ROUTE .COMPLEX Qty: 60 5RF Dose Instruction: TAKE ONE TABLET BY MOUTH WITH SUPPER FOR 1 WEEK THEN TAKE ONE TABLET BY MOUTH TWICE DAILY Rx Instructions: TAKE ONE TABLET BY MOUTH WITH SUPPER FOR 1 WEEK THEN TAKE ONE TABLET BY MOUTH TWICE DAILY cholecalciferol (vitamin D3) [Vitamin D3] 125 mcg (5,000 unit) Tablet 125 mcg PO DAILY 0RF acetaminophen 325 mg tablet 325 - 650 mg PO Q6H PRN (Reason: Pain) 0RF isosorbide mononitrate 60 mg tablet extended release 24 hr 60 mg PO DAILY 0RF Vitamin B-12 50 mcg Tablet 50 mcg PO DAILY Qty: 0 0RF nitroglycerin [Nitrostat] 0.4 mg Tablet, Sublingual 0.4 mg SUBLINGUAL Q5M PRN (Reason: Chest Pain) 0RF Rx Instructions: do not exceed 3 doses per episode magnesium oxide 400 mg magnesium Tablet 400 mg PO BEDTIME PRN (Reason: Muscle Spasm) 0RF potassium chloride 20 mEq tablet extended release 20 meq PO DAILY 0RF furosemide 80 mg tablet 80 mg PO DAILY 0RF sucralfate 100 mg/mL Suspension 1 g PO AC&BEDTIME Qty: 300 0RF pantoprazole 40 mg tablet,delayed release (DR/EC) 40 mg PO BIDWMEAL Qty: 0 0RF carvedilol 12.5 mg tablet 6.25 mg PO BID 0RF hydroxyzine pamoate 50 mg capsule 50 mg PO TID 0RF hydralazine 50 mg tablet 25 mg PO BID 0RF prednisone 2.5 mg tablet 2.5 mg PO DAILY 0RF metoprolol tartrate 50 mg tablet 25 mg PO BID 0RF Discharge Orders: Discharge ED (Routine); Ordered 05/31/22 Ordered By: Lazaro Moses Referrals: Lorenzo Muller, RESERVOIR ENGINEERING CONSULTANT-C [Primary Care Provider] - Discharge Diet: Advance as tolerated Discharge Activity: Resume usual activity Patient Instructions: Heart Failure (ED) Coding Level of Care Code ED Jewelry Dipper for Anel Fwcharmaine Exam Comprehensive
[2022-05-31 13:12] LABS: Basophils % 0.6 %; Eosinophils # 0.2 10^3/uL (0.0-0.8); Eosinophils % 2.5 %; Hematocrit 28.5 % (37.0-47.0); Hemoglobin 9.4 g/dL (11.5-15.3); Lymphocytes # 1.4 10^3/uL (0.8-4.8); Lymphocytes % 21.4 %; Mean Corpuscular Hemoglobin 29.2 pg (28.0-34.0); Mean Corpuscular Volume 88.5 fl (81-99); Mean Platelet Volume 10.5 fL (7.4-10.4); Monocytes # 0.4 10^3/uL (0.2-0.9); Monocytes % 6.5 %; Neutrophils # 4.62 10^3/uL (1.8-7.7); Neutrophils % 68.7 %; Nucleated Red Blood Cells % 0 %; Platelet Count 217 10^3/cmm (130-400); Red Blood Count 3.22 10^6/uL (4.1-5.3); White Blood Count 6.7 10^3/uL (4.0-10.0)
[2022-05-31 13:16] LABS: ABG PCO2 42.6 mmHg (35-45); ABG PH Result 7.46 (7.35-7.45); Alveolar-Arterial Oxygen Gradi 8.5 mmHg (5-10); Arterial Blood Gas Hematocrit 33.8 % (37-47); Base Excess ABG 5.7 mmol/L (-2.0-2.0); Blood Gas Allen Test Pos; Blood Gas Operator Identificat glc; Blood Gas Sample Site Radial, left; Blood Gas Sample Type Arterial; Carboxyhemoglobin 1.5 %THgb (0.4-20.1); HCO3 ABG 30.2 mmol/L (22-26); HGB O2 Sat 95.2 % (95-100); Ionized Calcium Level - ABG 1.3 mmol/L (1.1-1.4); Methemoglobin 0.9 % (0.4-1.5); Oxygen Device NC; Oxygen Saturation ABG 97.6; PO2 ABG 80.5 mmHg (80.0-100.0)
[2022-05-31 13:37] LABS: Troponin(5th) Baseline 27 ng/L (0-10)
[2022-05-31 13:45] LABS: Alanine Aminotransferase 14 U/L (0-33); Albumin Level 3.4 g/dL (3.5-5.2); Alkaline Phosphatase 73 IU/L (35-105); Aspartate Amino Transferase 14 U/L (0-32); Blood Urea Nitrogen 30 mg/dL (8-23); Calcium 9.6 mg/dL (8.5-10.5); Carbon Dioxide 28 mmol/L (22-29); Chloride 100 mmol/L (98-107); Globulin 3.3 g/dL (1.3-4.6); Glomerular Filtration Rate 45.1 mL/min (90-130); Glucose 184 mg/dL (65-115); NT Pro B Type Natriuretic Pept 1417 pg/mL (0-125); Osmolality Calculated 297 mOsm/kg (285-295); Sodium 138 mmol/L (136-145); Total Bilirubin 0.2 mg/dL (0.15-1.2); Total Protein 6.7 g/dL (6.6-8.7)
--- NOTE | 2022-05-31 13:45 | ECG_ITS ---
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 Measurements Intervals [place] Rate: 79 P: 68 UT: 212 QRS: -54 QRSD: 155 T: 54 QT: 441 QTc: 508 Interpretive Statements SINUS RHYTHM WITH FIRST DEGREE AV BLOCK LEFT AXIS DEVIATION [QRS AXIS < -30] RIGHT BUNDLE BRANCH BLOCK [120+ ms QRS DURATION, UPRIGHT V1, 40+ ms S IN I/aVL/V4/V5/V6] SEPTAL MYOCARDIAL INFARCTION , OF INDETERMINATE AGE [40+ ms Q WAVE IN V1/V2] Compared to ECG 04/16/2022 07:04:18 First degree AV block now present Left-axis deviation now present Myocardial infarct finding now present Sinus tachycardia no longer present Right-axis deviation no longer present Electronically Signed On 05-31-2022 18:23:27 CDT by Addison Morales M.D. [email or web address]
[2022-05-31 14:47] LABS: Urine Appearance Clear (CLEAR); Urine Color Yellow (Yellow)
[2022-05-31 14:48] LABS: Add Urine Microscopic? YES; Bilirubin Urine Neg (Negative); Blood Urine 2+ (Negative); Glucose Urine UA Norm (Normal); Ketones Urine Negative (Negative); Leukocyte Esterase Urine Negative (Negative); Nitrate Urine Negative (Negative); Protein Urine 3+ (Negative); Specific Gravity, Urine 1.015 (1.005-1.030); Urobilinogen Urine Norm (Negative); pH Urine 6 (5-7)
[2022-05-31 14:49] LABS: Add Urine Culture? No; Bacteria Urine TRACE /hpf; Squamous Epithelial Cell Urine 0-4 /hpf (0-5); WBC Urine RARE /hpf (0-5)
[2022-05-31 14:50] LABS: Glucose Point of Care 157 mg/dL (70-110)
[2022-05-31] MEDS: hyDRALAzine 20 mg/mL INJ 1 mL IVP (15:03)
[2022-05-31 15:42] LABS: Troponin 5 2HR 26.25 ng/L (0-10)
[2022-05-31 15:46] LABS: Troponin 5 2HR Delta -0.75 ABS# (0-10)
[2022-05-31] MEDS: ketorolac 30 mg/mL INJ IVP (15:54)
--- NOTE | 2022-05-31 17:11 | CTR_ITS ---
PROCEDURE INFORMATION: Exam: CTA Chest With Contrast Exam date and time: 05/31/2022 6:57 PM Age: 67 years old Clinical indication: Patient HX: Swelling of lower extremities, shortness of breath; Additional info: Dyspnea TECHNIQUE: Imaging protocol: Computed tomographic angiography of the chest with contrast. 3D rendering (Not supervised by radiologist): MIP and/or 3D reconstructed images were created by the technologist. Radiation optimization: All CT scans at this facility use at least one of these dose optimization techniques: automated exposure control; mA and/or kV adjustment per patient size (includes targeted exams where dose is matched to clinical indication); or iterative reconstruction. Contrast material: OMNIPAQUE 350; Contrast volume: 90 ml; Contrast route: INTRAVENOUS (IV); COMPARISON: CT angio chest abdomen pelvis 04/16/2022 9:57 AM RADIATION DOSE METRICS: Total DLP (mGy-cm): 544.04 FINDINGS: Pulmonary arteries: Mild-moderate dilatation of main pulmonary artery at 3.7 cm. Clinical correlation for pulmonary hypertension should be considered. There is no pulmonary embolism in the central-proximal segmental branches. Assessment of the peripheral subsegmental small branches is limited. Aorta: No aortic aneurysm. No aortic dissection. Lungs: Nonspecific bilateral mosaic pulmonary attenuations which may be related to occlusive small airway/vascular disease or air trapping. Nonspecific pneumonitis may also be considered. Otherwise no dense consolidation or round ground-glass opacity. Pleural spaces: Small bilateral pleural effusions. Pulmonary consolidative changes are noted adjacent to the pleural effusion(s) which may be related to compressive atelectasis versus superimposed pneumonia. Clinical correlation and follow-up should be obtained. Heart: [id number] 4 chamber cardiomegaly with coronary calcification. Lymph nodes: Mildly enlarged AP window lymph node measuring about 16 mm short axis. Slightly prominent right paratracheal lymph node measures 17 mm. Subcarinal lymph node measures 16 mm. Liver: Partially visualized liver demonstrates diffusely nodular contour suspicious for cirrhosis. Spleen: Splenomegaly. Bones/joints: Several images are degraded due to external streak artifacts arising from patient's arm(s) and large body habitus. Soft tissues: Unremarkable. CT/CT angio chest PE protcl [id number] IMPRESSION: 1. Technically limited exam due to artifacts as described. No PE with limitations described above. Dilatation of main pulmonary artery. 2. Cardiomegaly with no obvious vascular congestion. 3. Bilateral pleural effusions with adjacent compressive atelectasis. Nonspecific mosaic pulmonary attenuations. See discussion above. Otherwise no dense consolidation or round ground-glass opacity. 4. Nonspecific mediastinal adenopathy. Follow-up should be considered. 5. Probable hepatic cirrhosis. Splenomegaly.
--- NOTE | 2022-05-31 18:48 | PC.NURSE ---
At 1656 I removed the 2L nasal cannula from the patient to assist her from the chair to the wheelchair. Patient was tolerating room air well with saturation in the mid 90's. Upon assisting the patient from her chair to the wheelchair she began crying and saying she couldn't breath. I applied the nasal cannula onto the patient at 2L and applied the pulse oximeter to monitor the patient. Patient requests to speak with provider and does not want to leave. Dr Moses heard the patient yelling I can't breath and was in the room immediately and spoke with patient. Patient discharge reversed although I had already removed IV and completed all paperwork.
[2022-05-31] MEDS: iohexol 350 mg/mL 100 mL Btl IV (19:01)
== END 2022-05-31 20:25 | disposition home or self-care (01) ==
PROVIDERS: Family Medicine; Emergency Provider Emergency Medicine; PCP Nurse Practitioner
DX: J44.9 Chronic obstructive pulmonary disease, unspecified (principal); G89.29 Other chronic pain; M54.9 Dorsalgia, unspecified; M79.7 Fibromyalgia; R31.9 Hematuria, unspecified; I13.0 Hypertensive heart and chronic kidney disease with heart failure and stage 1 through stage 4 chronic kidney disease, or unspecified chronic kidney disease; E11.22 Type 2 diabetes mellitus with diabetic chronic kidney disease; N18.30 Chronic kidney disease, stage 3 unspecified; I50.9 Heart failure, unspecified; Z79.01 Long term (current) use of anticoagulants; Z79.4 Long term (current) use of insulin; Z87.891 Personal history of nicotine dependence
CPT/HCPCS: 36415; 36416; 36600; 71045; 71275; 80051; 80053; 81001; 82330; 82805; 82962; 83880; 84484; 85025; 93005; 96374; 96375; 99285; J0360; J1885; Q9967

== ENCOUNTER 2022-07-06 10:49 | Outpatient (CLI) | payer MEDICARE, MEDICAID, SELFPAY ==
--- NOTE | 2022-07-06 11:00 | CTR_ITS ---
PROCEDURE INFORMATION: Exam: CT Neck With Contrast Exam date and time: 07/06/2022 12:03 PM Age: 67 years old Clinical indication: Dysphagia / difficulty swallowing; Prior surgery; Surgery type: Tonsils; Patient HX: Difficulty swallowing x 2 months, neck pain chronic TECHNIQUE: Imaging protocol: Computed tomography of the neck with contrast. Radiation optimization: All CT scans at this facility use at least one of these dose optimization techniques: automated exposure control; mA and/or kV adjustment per patient size (includes targeted exams where dose is matched to clinical indication); or iterative reconstruction. Contrast material: VISIPAQUE; Contrast volume: 95 ml; Contrast route: INTRAVENOUS (IV); COMPARISON: CT neck w con* [id number] 12/14/2021 2:26 PM RADIATION DOSE METRICS: Total DLP (mGy-cm): 317.42 FINDINGS: Pharynx: There is nonspecific prominence of the palatine tonsils, left greater than right, and lingual tonsils. No discrete mass or fluid collection identified. No inflammatory changes seen. Larynx: Unremarkable. Epiglottis is normal. Prevertebral and retropharyngeal spaces: Unremarkable. Salivary glands: Normal. Glands are normal in size. Thyroid: Normal. No enlarged or calcified nodules. Lymph nodes: Unremarkable. No lymphadenopathy. Trachea: Visualized trachea is unremarkable. Lungs: Unremarkable as visualized. Bones/joints: Degenerative changes of the spine seen. No acute fracture. Soft tissues: Unremarkable. No significant soft tissue swelling. CT/CT neck w con* [id number] IMPRESSION: Nonspecific prominence of the palatine and lingual tonsils. Clinical correlation is recommended.
--- NOTE | 2022-07-06 11:00 | FL_ITS ---
WS: [id number] Exam: FL barium swallow [id number] Date/Time of Exam: 07/06/2022 12:20 PM Reason For Exam: DYSPHAGIA Fluoroscopy time: 1min [id number] minutes # of spot films: 66 Swallowing function at the level of oropharynx was normal. No aspiration was noted. The esophagus is smooth in contour with normal motility. No sign of esophageal stricture or mass. No esophageal obstru ction. The esophagus is not displaced. No hiatal hernia noted. FL/FL barium swallow [id number] IMPRESSION: 1. Unremarkable barium swallow.
[2022-07-06] MEDS: iodixanol 320 mg/mL 100mL Btl IV (12:12)
== END 2022-07-06 10:50 | disposition home or self-care (01) ==
PROVIDERS: PCP Family Medicine; Visit Provider Specialist
DX: R13.10 Dysphagia, unspecified (principal); M54.2 Cervicalgia
CPT/HCPCS: 70491; 74220

== ENCOUNTER → 2022-07-08 16:25 | Outpatient (BNVA) | payer MEDICARE, MEDICAID, SELFPAY | PROVIDERS: PCP Family Medicine; Visit Provider Internal Medicine Cardiovascular Disease | DX: R06.02 Shortness of breath (principal); I50.33 Acute on chronic diastolic (congestive) heart failure; R60.9 Edema, unspecified; R06.09 Other forms of dyspnea; E11.22 Type 2 diabetes mellitus with diabetic chronic kidney disease; N18.30 Chronic kidney disease, stage 3 unspecified; R07.9 Chest pain, unspecified; C50.919 Malignant neoplasm of unspecified site of unspecified female breast; I48.0 Paroxysmal atrial fibrillation; I50.32 Chronic diastolic (congestive) heart failure; Z87.891 Personal history of nicotine dependence; I10 Essential (primary) hypertension | CPT/HCPCS: 36415; 80048; 83880; 99214 ==

== ENCOUNTER 2022-07-09 08:05 | Outpatient (CLI) | payer MEDICARE, MEDICAID, SELFPAY ==
--- NOTE | 2022-07-09 08:30 | USCV_ITS ---
Jennifer Novak Age: 67 Gender: F : 1955 Exam Date: 07/09/2022 08:45 Ordering Phys: Micheal Jaramillo MD Technologist: Soumya Sanchez Exam Location: [facility] – [place] Indication: shortness of breath BP: 168 / 100 HR: 77 Rhythm: Sinus Technical Quality: Very technically difficult study MEASUREMENTS (Male / Female) Normal Values 2D ECHO LV Diastolic Diameter PLAX 4.6 cm 4.2 - 5.9 / 3.9 - 5.3 cm LV Systolic Diameter PLAX 3.1 cm IVS Diastolic Thickness 1.6 cm 0.6 - 1.0 / 0.6 - 0.9 cm IVS Systolic Thickness 1.8 cm LVPW Diastolic Thickness 1.8 cm 0.6 - 1.0 / 0.6 - 0.9 cm LVPW Systolic Thickness 2.2 cm LVOT Diameter 2.1 cm LV Ejection Fraction 2D Teich 59.6 % LV Ejection Fraction MOD 2C 48.4 % LV Ejection Fraction 2C AL 50.7 % LA Diameter 3.5 cm LA Width 3.6 cm LA Height 6.1 cm RA Width 4.2 cm RA Height 4.5 cm Aorta at Sinotubular Diameter 3.0 cm IVC Diameter 1.7 cm M-MODE MV E Point Septal Separation 0.9 cm DOPPLER AV Peak Velocity 104.0 cm/s LVOT Peak Velocity 81.0 cm/s AV Area Cont Eq vti 3.3 cm squared AV Area Cont Eq pk 2.6 cm squared MV Peak Velocity 130.0 cm/s MV Area PHT 4.2 cm squared Mitral E to A Ratio 1.3 MV E' Velocity 69.0 cm/s Mitral E to MV E' Ratio 31.9 Mitral E to LV E' Lateral Ratio 33.5 Mitral E to LV E' Septal Ratio 30.5 TR Peak Velocity 56.0 cm/s TR Peak Gradient 1.3 mmHg Right Atrial Pressure 3.0 mmHg Pulmonary Artery Systolic Pressu 4.3 mmHg PV Peak Velocity 77.0 cm/s RV Acceleration Time 0.1 s RV Ejection Time 0.3 s RV AcT/ET 0.3 FINDINGS Left Ventricle Possibly normal LV size with borderline low ejection fraction of 50 to 55%. Right Ventricle Possibly of normal size ejection fraction Right Atrium The right atrium could not be visualized well. Appears to be mildly dilated Left Atrium Mildly increased left atrial size. Mitral Valve Mild mitral annular calcification. Aortic Valve Thickened noncoronary cusp of the aortic valve. Tricuspid Valve Could not be visualized well Pulmonic Valve Pulmonic valve not well visualized. Pericardium Trivial pericardial effusion. Aorta Normal aortic annulus size. IVC Inferior vena cava not visualized. CONCLUSIONS Possibly normal LV size with borderline low ejection fraction of 50 to 55%. Trivial pericardial effusion. Mild biatrial enlargement. Possible normal LV size and ejection fraction. Thickened noncoronary cusp of the aortic valve. There are no intracardiac masses. Comparison with the previous study is difficult because of the difference in the technical quality-possibly no significant change. Dr Sammy Aquino MD FACC (Electronically Signed) Final Date: 09 July 2022 13:27 S
== END 2022-07-09 08:06 | disposition home or self-care (01) ==
LOC: RAD 08:06
PROVIDERS: PCP Family Medicine; Visit Provider Surgery
DX: R06.02 Shortness of breath (principal); I31.3 Pericardial effusion (noninflammatory); I35.8 Other nonrheumatic aortic valve disorders
CPT/HCPCS: 93306

== ENCOUNTER 2022-07-21 12:59 | Outpatient (CLI) | payer MEDICARE, MEDICAID, SELFPAY ==
[2022-07-21 14:50] LABS: Bilirubin Urine Neg (Negative); Blood Urine 2+ (Negative); Glucose Urine UA Norm (Normal); Ketones Urine Negative (Negative); Leukocyte Esterase Urine Negative (Negative); Nitrate Urine Negative (Negative); Protein Urine 3+ (Negative); RBC Urine 0-4 /hpf (0-2); Specific Gravity, Urine 1.015 (1.005-1.030); Squamous Epithelial Cell Urine 0-4 /hpf (0-5); Urine Appearance Clear (CLEAR); Urine Color Yellow (Yellow); Urobilinogen Urine Norm (Negative); WBC Urine 0-4 /hpf (0-5); pH Urine 5 (5-7)
[2022-07-21 14:51] LABS: Add Urine Culture? No; Hyaline Casts Urine 0-4 /lpf
[2022-07-21 14:58] LABS: Creatinine Urine, Random 43 mg/dL (28-217)
[2022-07-21 15:12] LABS: Microalbum Creatinine Ratio Ur 3465 mg/dL (0-20); Microalbumin Random Urine 149 ug/dL (0-20)
[2022-07-21 15:30] LABS: Albumin Level 3.4 g/dL (3.5-5.2); Anion Gap 10.5 (5-19); Blood Urea Nitrogen 27 mg/dL (8-23); Calcium 9.4 mg/dL (8.5-10.5); Carbon Dioxide 33 mmol/L (22-29); Chloride 102 mmol/L (98-107); Glomerular Filtration Rate 45.1 mL/min (90-130); Glucose 84 mg/dL (65-115); NT Pro B Type Natriuretic Pept 2132 pg/mL (0-125); Osmolality Calculated 298 mOsm/kg (285-295); Phosphorus 3.7 mg/dL (2.5-4.5); Potassium 3.5 mmol/L (3.5-5.1); Sodium 142 mmol/L (136-145)
[2022-07-22 09:12] LABS: PROTEIN, TOTAL 6.4 g/dL (6.1-8.1)
[2022-07-22 12:37] LABS: KAPPA LIGHT CHAIN, FREE, SERUM 53.5 mg/L (3.3-19.4); KAPPA/LAMBDA LIGHT CHAINS FREE 1.62 (0.26-1.65)
[2022-07-22 16:06] LABS: ALBUMIN 3.3 g/dL (3.8-4.8); ALPHA 1 GLOBULIN 0.3 g/dL (0.2-0.3); ALPHA 2 GLOBULIN 0.8 g/dL (0.5-0.9); BETA 1 GLOBULIN 0.5 g/dL (0.4-0.6); BETA 2 GLOBULIN 0.5 g/dL (0.2-0.5)
== END 2022-07-21 13:00 | disposition home or self-care (01) ==
LOC: LAB 13:16
PROVIDERS: Absent Provider Internal Medicine Nephrology; PCP Family Medicine; Visit Provider Internal Medicine Cardiovascular Disease
DX: N18.31 Chronic kidney disease, stage 3a (principal); D47.2 Monoclonal gammopathy; I50.32 Chronic diastolic (congestive) heart failure; R07.9 Chest pain, unspecified; R60.9 Edema, unspecified; E11.22 Type 2 diabetes mellitus with diabetic chronic kidney disease; I48.0 Paroxysmal atrial fibrillation
CPT/HCPCS: 80048; 80069; 81001; 82044; 83880; 83883; 84155; 84165

== ENCOUNTER 2022-07-22 08:58 | Oncology outpatient (recurring) (ONCR) | payer MEDICARE, MEDICAID, SELFPAY | END 2022-08-20 23:59 | disposition home or self-care (01) | PROVIDERS: PCP Family Medicine; Visit Provider Internal Medicine Medical Oncology | DX: D47.2 Monoclonal gammopathy (principal); N64.4 Mastodynia; R23.8 Other skin changes; K74.69 Other cirrhosis of liver; R16.1 Splenomegaly, not elsewhere classified; I51.7 Cardiomegaly; J90 Pleural effusion, not elsewhere classified; J98.11 Atelectasis; R59.0 Localized enlarged lymph nodes; I31.3 Pericardial effusion (noninflammatory); Z79.899 Other long term (current) drug therapy; Z87.891 Personal history of nicotine dependence | CPT/HCPCS: 99204; 99205 ==

== ENCOUNTER 2022-08-09 13:49 | Outpatient (CLI) | payer MEDICARE, MEDICAID, SELFPAY ==
--- NOTE | 2022-08-09 15:00 | USCV_ITS ---
Scotthallie Jennifer Age: 67 Gender: F : 1955 Exam Date: 08/09/2022 14:27 Ordering Phys: Zulema Bahena [employer]-Fátima Technologist: Soumya Sanchez Exam Location: [facility] – [place] Indication: LLE pain and swelling HISTORY: pain in popliteal fossa area with intermittent LLE swelling. Patient has a lengthy history with multiple conidtions including IgM monoclonal gammopathy, fibromyalgia and is on anticoagulant therapy. PROCEDURES: Venous duplex imaging was performed in only the left lower extremity. The following venous structures were evaluated: common femoral vein, profunda vein, proximal portion of the greater saphenous vein, superficial femoral vein, and the popliteal vein. In addition, the posterior tibial and peroneal trunk were evaluated. FINDINGS: Normal 2-D Doppler and augmentation and compressibility throughout the lower extremity venous structures. Additional imaging through the proximal calf veins also reveals no thrombus. Limited evaluation of the greater saphenous vein is patent with no thrombus.. CONCLUSIONS No DVT left lower extremity. Dr. Tram Nino DO (Electronically Signed) Final Date: 09 August 2022 15:26 S
== END 2022-08-09 13:50 | disposition home or self-care (01) ==
LOC: RAD 13:49
PROVIDERS: PCP Family Medicine; Visit Provider Nurse Practitioner Family
DX: M79.662 Pain in left lower leg (principal); M79.89 Other specified soft tissue disorders
CPT/HCPCS: 93971

== ENCOUNTER 2022-09-22 12:41 | Outpatient (CLI) | payer MEDICARE, MEDICAID, SELFPAY ==
[2022-09-22 13:59] LABS: Basophils # 0.1 10^3/uL (0.0-0.1); Basophils % 1.1 %; Eosinophils # 0.3 10^3/uL (0.0-0.8); Eosinophils % 3.8 %; Hematocrit 33.6 % (37.0-47.0); Hemoglobin 10.8 g/dL (11.5-15.3); Lymphocytes # 1.5 10^3/uL (0.8-4.8); Lymphocytes % 21.3 %; Mean Corpuscular HGB Conc 32.1 g/dL (30.0-36.0); Mean Corpuscular Hemoglobin 27.8 pg (28.0-34.0); Mean Corpuscular Volume 86.6 fl (81-99); Mean Platelet Volume 10.4 fL (7.4-10.4); Monocytes # 0.6 10^3/uL (0.2-0.9); Monocytes % 8.5 %; Neutrophils # 4.52 10^3/uL (1.8-7.7); Neutrophils % 64.4 %; Nucleated Red Blood Cells % 0 %; Platelet Count 209 10^3/cmm (130-400); Red Blood Count 3.88 10^6/uL (4.1-5.3); Red Cell Distribution Width 13.1 % (12.1-15.1)
[2022-09-22 14:14] LABS: Add Urine Microscopic? YES; Bilirubin Urine Neg (Negative); Blood Urine Neg (Negative); Glucose Urine UA Norm (Normal); Ketones Urine Negative (Negative); Leukocyte Esterase Urine Negative (Negative); Nitrate Urine Negative (Negative); Protein Urine 1+ (Negative); Urine Appearance Clear (CLEAR); Urine Color Yellow (Yellow); Urobilinogen Urine Norm (Negative); pH Urine 5 (5-7)
[2022-09-22 14:15] LABS: RBC Urine 0-4 /hpf (0-2)
[2022-09-22 14:16] LABS: Add Urine Culture? No; Bacteria Urine TRACE /hpf
[2022-09-22 14:27] LABS: Albumin Level 3.8 g/dL (3.5-5.2); Anion Gap 17.5 (5-19); Blood Urea Nitrogen 59 mg/dL (8-23); Calcium 9.6 mg/dL (8.5-10.5); Carbon Dioxide 27 mmol/L (22-29); Chloride 99 mmol/L (98-107); Ferritin 186 ng/mL (15-150); Glomerular Filtration Rate 30.2 mL/min (90-130); Glucose 163 mg/dL (65-115); Iron 56 ug/dL (37-145); Percent Saturation 23.3 % (20-50); Phosphorus 4.6 mg/dL (2.5-4.5); Potassium 4.5 mmol/L (3.5-5.1); Sodium 139 mmol/L (136-145); Total Iron Binding Capacity 240 mcg/dl; Unsaturated Iron Binding 184 ug/dL (112-347)
[2022-09-22 14:38] LABS: 25 Hydroxy Vitamin D 43 ng/mL (30-100)
[2022-09-22 15:05] LABS: Calcium 9.6 mg/dL (8.5-10.5); Parathyroid Hormone 63.4 pg/mL (15-65)
== END 2022-09-22 12:42 | disposition home or self-care (01) ==
PROVIDERS: PCP Family Medicine; Visit Provider Internal Medicine Nephrology
DX: E55.9 Vitamin D deficiency, unspecified (principal); N17.9 Acute kidney failure, unspecified; D63.1 Anemia in chronic kidney disease
CPT/HCPCS: 36415; 80069; 81001; 82306; 82310; 82728; 83540; 83550; 83970; 85025

== ENCOUNTER → 2022-10-26 09:32 | Outpatient (BNVA) | payer MEDICARE, MEDICAID, SELFPAY | PROVIDERS: PCP Family Medicine; Visit Provider Nurse Practitioner | DX: E11.22 Type 2 diabetes mellitus with diabetic chronic kidney disease (principal) | CPT/HCPCS: 80053; 80061; 82607; 83036 ==

== ENCOUNTER 2022-11-01 14:21 | Oncology outpatient (recurring) (ONCR) | payer MEDICARE, MEDICAID, SELFPAY | END 2022-11-20 23:59 | disposition home or self-care (01) | PROVIDERS: PCP Family Medicine; Visit Provider Internal Medicine Medical Oncology | DX: D47.2 Monoclonal gammopathy (principal) | CPT/HCPCS: 99213 ==

== ENCOUNTER → 2022-11-10 16:21 | Outpatient (BNVA) | payer MEDICARE, MEDICAID, SELFPAY | PROVIDERS: PCP Family Medicine; Visit Provider Specialist | DX: Z74.09 Other reduced mobility (principal); Z78.9 Other specified health status; F41.8 Other specified anxiety disorders; G25.0 Essential tremor; E11.42 Type 2 diabetes mellitus with diabetic polyneuropathy; Z79.84 Long term (current) use of oral hypoglycemic drugs; E66.01 Morbid (severe) obesity due to excess calories; G47.33 Obstructive sleep apnea (adult) (pediatric); M15.9 Polyosteoarthritis, unspecified | CPT/HCPCS: 99214 ==

== ENCOUNTER 2022-12-17 15:15 | Emergency (ER) | payer MEDICARE, MEDICAID, SELFPAY ==
[2022-12-17 15:16] VITALS: BP 152/96; PULSE 79; RESP 18; TEMP 36.7; O2SAT 99
[2022-12-17 15:22] VITALS: BP 210/82; PULSE 84; RESP 18; TEMP 36.8; O2SAT 96
--- NOTE | 2022-12-17 18:59 | XRR_ITS ---
PROCEDURE INFORMATION: Exam: XR Chest Exam date and time: 12/17/2022 7:15 PM Age: 67 years old Clinical indication: Pain; Chest pressure; Additional info: Cp, cough TECHNIQUE: Imaging protocol: Radiologic exam of the chest. Views: 1 view. COMPARISON: CR XR chest 1V portable [id number] 05/31/2022 11:55 AM FINDINGS: Lungs: There is ground-glass opacity in the central lower lungs bilaterally, decreased since 05/31/2022. Pleural spaces: There is no pleural effusion or pneumothorax. Heart/Mediastinum: There is mild enlargement of the cardiac silhouette. Stable prominence of the right hilum. Bones/joints: Bones are unremarkable. XR/XR chest 1V portable [id number] IMPRESSION: 1. Mild central lower lung predominant ground-glass opacity, decreased since 05/31/2022. Probable pulmonary edema. Atypical infection or interstitial lung disease is not excluded. 2. Stable prominence of the right hilum consistent with lymphadenopathy visible on 05/31/2022.
--- NOTE | 2022-12-17 19:04 | W.ED.SOB ---
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 Dietary noncompliance Diverticulosis Environmental and seasonal allergies Essential tremor Fibromyalgia Fracture of distal end of fibula Hip pain, left IBS (irritable bowel syndrome) IgM monoclonal gammopathy of uncertain significance Inflammatory arthritis Left lumbar radiculopathy Major depression Mild cognitive impairment with memory loss Mobility impaired Near syncope Noncompliance with diabetes treatment Not consistent with diet Obesity Peripheral neuropathy Polyarthralgia Severe obstructive sleep apnea Syncope and collapse Type 2 diabetes mellitus with diabetic chronic kidney disease Urinary disorder Vitamin D deficiency Surgical History History of section 4 times History of cholecystectomy (1993) History of hysterectomy (1997) with BSO History of left heart catheterization (2017) No significant obstructive coronary disease History of tonsillectomy Hx of colonoscopy Hx of esophagogastroduodenoscopy Family History Brother Bleeding disorder CAD (coronary artery disease) Father CAD (coronary artery disease) Chronic kidney disease (CKD) Mother CAD (coronary artery disease) Cancer Diabetes Family/Other Cancer Other CHF (congestive heart failure) Heart disease Hypertension Denies family history of Clotting disorder Dementia Suicide Anesthesia complication Lung disease Stroke Social History Smoking and tobacco status: former smoker Second hand smoke exposure: No Smoking risk assessment/counseling performed?: No Alcohol intake: never Desire information about alcohol rehabilitation?: No Counseling given: No Desire information about substance/drug rehabilitation?: No Counseling given: No Adopted: No Caregiver/support person: Yes Lives independently: No Household members: children and other Details: Son, sometimes grandson Housing: House Marital status: Single service: No Current occupational status: disabled History of recent travel: No Current gender identity: Female Course Vital Signs: Vital signs: Vital Signs Temperature 98.3 F 12/17/22 15:22 Pulse Rate 84 12/17/22 15:22 Respiratory Rate 18 12/17/22 15:22 Blood Pressure 210/82 12/17/22 15:22 Pulse Oximetry 96 12/17/22 15:22 Oxygen Delivery Me thod 12/17/22 15:22 Oxygen Flow Rate 2 12/17/22 15:22 MDM - SOB/Dyspnea Lab Data 12/17/22 19:45 12/17/22 19:45 Labs/Radiology: Radiology Impressions Chest X-Ray 12/17/22 18:59 IMPRESSION: 1. Mild central lower lung predominant ground-glass opacity, decreased since 05/31/2022. Probable pulmonary edema. Atypical infection or interstitial lung disease is not excluded. 2. Stable prominence of the right hilum consistent with lymphadenopathy visible on 05/31/2022. Laboratory Results WBC 6.6 10^3/uL (4.0-10.0) 12/17/22 19:45 RBC 4.01 10^6/uL (4.1-5.3) L 12/17/22 19:45 Hgb 11.4 g/dL (11.5-15.3) L 12/17/22 19:45 Hct 35.8 % (37.0-47.0) L 12/17/22 19:45 MCV 89.3 fl (81-99) 12/17/22 19:45 MCH 28.4 pg (28.0-34.0) 12/17/22 19:45 MCHC 31.8 g/dL (30.0-36.0) 12/17/22 19:45 RDW 13.1 % (12.1-15.1) 12/17/22 19:45 Plt Count 231 10^3/cmm (130-400) 12/17/22 19:45 MPV 10.4 fL (7.4-10.4) 12/17/22 19:45 Neut % (Auto) 67.3 % 12/17/22 19:45 Lymph % (Auto) 19.1 % 12/17/22 19:45 [place] % (Auto) 10.3 % 12/17/22 19:45 Eos % (Auto) 2.0 % 12/17/22 19:45 Baso % (Auto) 1.1 % 12/17/22 19:45 Neut # (Auto) 4.44 10^3/uL (1.8-7.7) 12/17/22 19:45 Lymph # (Auto) 1.3 10^3/uL (0.8-4.8) 12/17/22 19:45 [place] # (Auto) 0.7 10^3/uL (0.2-0.9) 12/17/22 19:45 Eos # (Auto) 0.1 10^3/uL (0.0-0.8) 12/17/22 19:45 Baso # (Auto) 0.1 10^3/uL (0.0-0.1) 12/17/22 19:45 Nucleated RBC % (auto) 0 % 12/17/22 19:45 Nucleated RBCs # 0.0 /100WBC 12/17/22 19:45 Discharge Plan Discharge Condition: Stable Prescriptions: No Action (DME) pen needle, diabetic [TechLITE Pen Needle] 31 gauge x 5/16 needle See Rx Instructions .ROUTE .MEDSUPPLY Qty: 1,200 Rx Instructions: As directed primidone 50 mg tablet See Rx Instructions .ROUTE .COMPLEX Dose Instruction: TAKE ONE TABLET BY MOUTH WITH SUPPER FOR 1 WEEK THEN TAKE ONE TABLET BY MOUTH TWICE DAILY Rx Instructions: TAKE ONE TABLET BY MOUTH WITH SUPPER FOR 1 WEEK THEN TAKE ONE TABLET BY MOUTH TWICE DAILY hydralazine 50 mg tablet 50 mg PO TID Qty: 90 5RF (DME) wheelchair cushions See Rx Instructions .Route .MEDSUPPLY Qty: 1 0RF Rx Instructions: As directed (DME) Bariatric emy lift See Rx Instructions .Route .MEDSUPPLY Qty: 1 0RF Rx Instructions: BMI 57.5% weight 325# (DME) Alternating pressure mattress and pressure pump See Rx Instructions .Route .MEDSUPPLY Qty: 1 0RF Rx Instructions: As directed fluoxetine 20 mg capsule 20 mg PO DAILY@08 Qty: 30 2RF Rx Instructions: continue 40mg 2100 dose fluoxetine 40 mg capsule 40 mg PO DAILY@2100 Qty: 30 2RF dicyclomine 20 mg tablet 20 mg PO QID Qty: 120 2RF methocarbamol 500 mg tablet 500 mg PO TID PRN (Reason: Muscle Spasm) Qty: 90 2RF (DME) lancets [OneTouch Delica Lancets] 33 gauge misc See Rx Instructions .Route Qty: 100 5RF Rx Instructions: three times day insulin degludec [Tresiba FlexTouch U-200] 200 unit/mL (3 mL) insulin pen 80 unit SUBCUT DAILY Qty: 18 2RF insulin lispro [Humalog KwikPen Insulin] 100 unit/mL insulin pen See Rx Instructions SUBCUT .COMPLEX Qty: 15 0RF Rx Instructions: 6-27U SUBCUT three times daily subcutaneously; magnesium oxide 400 mg magnesium tablet 400 mg PO BEDTIME PRN (Reason: Muscle Spasm) Qty: 30 2RF Entresto 24-26 mg tablet 1 tab PO BID Qty: 60 2RF Eliquis 5 mg tablet 5 mg PO BID@0900,2100 Qty: 60 2RF scopolamine base 1 mg over 3 days patch 3 day 1 patch transdermal Q3D PRN (Reason: nausea and vomiting) Qty: 10 0RF nystatin-triamcinolone 100,000-0.1 unit/g-% cream 1 applic topical TID Qty: 30 0RF (DME) diabetic shoes with inserts See Rx Instructions .Route .MEDSUPPLY Qty: 1 0RF Rx Instructions: As directed (DME) compression socks, medium Misc See Rx Instructions .Route Qty: 2 0RF Rx Instructions: As directed clindamycin phosphate 1 % lotion See Rx Instructions .ROUTE .COMPLEX Qty: 60 1RF Dose Instruction: APPLY TOPICALLY TWICE DAILY NEEDED FOR SKIN IRRITATION Rx Instructions: APPLY TOPICALLY TWICE DAILY NEEDED FOR SKIN IRRITATION triamcinolone acetonide 0.1 % ointment 1 applic TOPICAL DAILY PRN (Reason: itching) Qty: 30 0RF isosorbide mononitrate 60 mg tablet extended release 24 hr 60 mg PO DAILY Qty: 90 3RF torsemide 100 mg tablet 100 mg PO DAILY Qty: 90 3RF Rx Instructions: Dose increased potassium chloride 20 mEq tablet extended release 30 meq PO DAILY Qty: 135 3RF albuterol sulfate [ProAir HFA] 90 mcg/actuation HFA aerosol inhaler 2 puff INHALATION Q4H PRN (Reason: shortness of breath or wheezing) Qty: 8.5 0RF nitroglycerin [Nitrostat] 0.4 mg tablet, sublingual 0.4 mg SUBLINGUAL Q5M PRN (Reason: Chest Pain) Qty: 50 3RF Rx Instructions: do not exceed 3 doses per episode (DME) OneTouch Ultra Test Strip See Rx Instructions .Route Qty: 100 5RF Rx Instructions: 1 strip three time day (DME) blood-glucose meter [OneTouch Ultra2 Meter] Kit See Rx Instructions .Route Qty: 1 0RF Rx Instructions: As directed hydroxychloroquine 200 mg tablet 200 mg PO BID Qty: 60 1RF doxycycline monohydrate 100 mg capsule 100 mg PO BID 7 Days Qty: 14 0RF cholecalciferol (vitamin D3) [Vitamin D3] 125 mcg (5,000 unit) Tablet 125 mcg PO DAILY acetaminophen 325 mg tablet 325 - 650 mg PO Q6H PRN (Reason: Pain) Vitamin B-12 50 mcg Tablet 50 mcg PO DAILY Qty: 0 sucralfate 100 mg/mL Suspension 1 g PO AC&BEDTIME Qty: 300 0RF carvedilol 12.5 mg tablet 6.25 mg PO BID hydroxyzine pamoate 50 mg capsule 50 mg PO TID metoprolol tartrate 50 mg tablet 25 mg PO BID Referrals: Savannah Martinez MD [Primary Care Provider] - Coding Level of Care Code ED Junior Accounting Clerk for Anel Mcknight
[2022-12-17 19:52] LABS: Basophils # 0.1 10^3/uL (0.0-0.1); Basophils % 1.1 %; Eosinophils # 0.1 10^3/uL (0.0-0.8); Hematocrit 35.8 % (37.0-47.0); Hemoglobin 11.4 g/dL (11.5-15.3); Lymphocytes # 1.3 10^3/uL (0.8-4.8); Lymphocytes % 19.1 %; Mean Corpuscular HGB Conc 31.8 g/dL (30.0-36.0); Mean Corpuscular Hemoglobin 28.4 pg (28.0-34.0); Mean Corpuscular Volume 89.3 fl (81-99); Mean Platelet Volume 10.4 fL (7.4-10.4); Monocytes # 0.7 10^3/uL (0.2-0.9); Monocytes % 10.3 %; Neutrophils # 4.44 10^3/uL (1.8-7.7); Neutrophils % 67.3 %; Nucleated Red Blood Cells % 0 %; Platelet Count 231 10^3/cmm (130-400); Red Blood Count 4.01 10^6/uL (4.1-5.3); Red Cell Distribution Width 13.1 % (12.1-15.1); White Blood Count 6.6 10^3/uL (4.0-10.0)
[2022-12-17 19:58] VITALS: BP 192/75; PULSE 89; RESP 24; O2SAT 99
[2022-12-17 20:20] LABS: Alanine Aminotransferase 16 U/L (0-33); Albumin Level 3.9 g/dL (3.5-5.2); Alkaline Phosphatase 81 U/L (35-105); Anion Gap 16.3 (5-19); Aspartate Amino Transferase 25 U/L (0-32); Blood Urea Nitrogen 38 mg/dL (8-23); Carbon Dioxide 30 mmol/L (22-29); Chloride 97 mmol/L (98-107); Globulin 3.9 g/dL (1.3-4.6); Glomerular Filtration Rate 32.3 mL/min (90-130); Glucose 77 mg/dL (65-115); NT Pro B Type Natriuretic Pept 692 pg/mL (0-125); Osmolality Calculated 298 mOsm/kg (285-295); Potassium 3.3 mmol/L (3.5-5.1); Sodium 140 mmol/L (136-145); Total Bilirubin 0.5 mg/dL (0.15-1.2); Total Protein 7.8 g/dL (6.6-8.7)
--- NOTE | 2022-12-17 20:58 | ED_ITS ---
HPI - SOB/Dyspnea General: Chief Complaint: Shortness of Breath/Dyspnea Stated Complaint: cough/chest pain Time Seen by Provider: 12/17/22 18:58 History of Present Illness: HPI Narrative: 67-year-old morbidly obese female with multiple medical problems including COPD and congestive heart failure as well as chronic kidney disease presents to the emergency department with shortness of breath and mild nonproductive cough. She reports she feels like she has pneumonia she is requesting a chest x-ray. Patient has not had any purulent sputum nor she had any fever or chills. Recently she lost power at her house and she believes that that triggered some of her symptoms. The patient does report diffuse swelling and weight gain. Specifically she is gained some weight in her abdomen and lower extremities. She is on 100 mg of torsemide has been taking it as directed but has reported some dietary indiscretions. Patient denies any skin lesions or change. She denies any nausea or vomiting. No other symptoms reported. Associated symptoms: Reports chest congestion and orthopnea; Deny chest pain, hemoptysis or palpitations Review of Systems General: Reports: 10 or more systems reviewed and unremarkable except in HPI and below Card: Reports: dyspnea on exertion and orthopnea; Denies: chest pain, palpitations, irregular heart rhythm, leg pain with exertion or acrocyanosis Resp: Reports: dyspnea, non-productive cough and chest congestion; Denies: productive cough, wheezing, stridor, pain on inspiration, change in phlegm color or hemoptysis Skin/Breast: Denies: rash or pruritus PFSH ED PFSH: Medical History Anxiety Atrial flutter Atypical chest pain Back pain Benign hypertension Chronic back pain Chronic major depressive disorder Chronic obstructive pulmonary disease, unspecified CKD (chronic kidney disease) Coronary artery fistula Diabetic neuropathy associated with type 2 diabetes mellitus Dietary noncompliance Diverticulosis Environmental and seasonal allergies Essential tremor Fibromyalgia Fracture of distal end of fibula Hip pain, left IBS (irritable bowel syndrome) IgM monoclonal gammopathy of uncertain significance Inflammatory arthritis Left lumbar radiculopathy Major depression Mild cognitive impairment with memory loss Mobility impaired Near syncope Noncompliance with diabetes treatment Not consistent with diet Obesity Peripheral neuropathy Polyarthralgia Severe obstructive sleep apnea Syncope and collapse Type 2 diabetes mellitus with diabetic chronic kidney disease Urinary disorder Vitamin D deficiency Surgical History History of section 4 times History of cholecystectomy (1993) History of hysterectomy (1997) with BSO History of left heart catheterization (2017) No significant obstructive coronary disease History of tonsillectomy Hx of colonoscopy Hx of esophagogastroduodenoscopy Family History Brother Bleeding disorder CAD (coronary artery disease) Father CAD (coronary artery disease) Chronic kidney disease (CKD) Mother CAD (coronary artery disease) Cancer Diabetes Family/Other Cancer Other CHF (congestive heart failure) Heart disease Hypertension Denies family history of Clotting disorder Dementia Suicide Anesthesia complication Lung disease Stroke Social History Smoking and tobacco status: former smoker Second hand smoke exposure: No Smoking risk assessment/counseling performed?: No Alcohol intake: never Desire information about alcohol rehabilitation?: No Counseling given: No Desire information about substance/drug rehabilitation?: No Counseling given: No Adopted: No Caregiver/support person: Yes Lives independently: No Household members: children and other Details: Son, sometimes grandson Housing: House Marital status: Single service: No Current occupational status: disabled History of recent travel: No Current gender identity: Female Physical Exam Const: OTHER: Morbidly obese female in no apparent distress specifically she does not have any labored respirations or appear ill Chest: CHEST: No abnormal inspection of the chest and Yes Symmetrical chest wall rise Resp: OTHER: Crackles in the bases bilaterally without tachypnea or accessory muscle use Cardio: OTHER: Regular rate and rhythm Extremity: OTHER: Pedal edema Skin: NARRATIVE SKIN EXAM: Warm and dry Course Vital Signs: Vital signs: Vital Signs Temperature 98.3 F 12/17/22 15:22 Pulse Rate 89 12/17/22 19:58 Respiratory Rate 24 H 12/17/22 19:58 Blood Pressure 192/75 12/17/22 19:58 Pulse Oximetry 99 12/17/22 19:58 Oxygen Delivery Me thod 12/17/22 19:58 Oxygen Flow Rate 2 12/17/22 19:58 MDM - SOB/Dyspnea Medical Decision Making 67-year-old female in with concerns of shortness of breath that has been present for the past couple of days. Patient is convinced that she may have concerns of pneumonia or infection. We will check routine lab work and chest x-ray. Patient's chest x-ray did not reveal any concerns of significant infiltrate there is a abnormality in the right lower lobe but when compared to previous this looks more chronic I do not think it is likely to represent an infiltrate. The patient's BNP was elevated and by history and physical this is more consistent with pulmonary edema and heart failure than it is for infection. I have recommended the patient have some IV Lasix here and increase her torsemide and follow a low-sodium diet and close follow-up. Differential Diagnosis Likely acute exacerbation of chronic obstructive airways disease, congestive heart failure, community acquired pneumonia, asthma with exacerbation and pulmonary embolism Lab Data 12/17/22 19:45 12/17/22 19:45 Labs/Radiology: Radiology Impressions Chest X-Ray 12/17/22 18:59 IMPRESSION: 1. Mild central lower lung predominant ground-glass opacity, decreased since 05/31/2022. Probable pulmonary edema. Atypical infection or interstitial lung disease is not excluded. 2. Stable prominence of the right hilum consistent with lymphadenopathy visible on 05/31/2022. Laboratory Results WBC 6.6 10^3/uL (4.0-10.0) 12/17/22 19:45 RBC 4.01 10^6/uL (4.1-5.3) L 12/17/22 19:45 Hgb 11.4 g/dL (11.5-15.3) L 12/17/22 19:45 Hct 35.8 % (37.0-47.0) L 12/17/22 19:45 MCV 89.3 fl (81-99) 12/17/22 19:45 MCH 28.4 pg (28.0-34.0) 12/17/22 19:45 MCHC 31.8 g/dL (30.0-36.0) 12/17/22 19:45 RDW 13.1 % (12.1-15.1) 12/17/22 19:45 Plt Count 231 10^3/cmm (130-400) 12/17/22 19:45 MPV 10.4 fL (7.4-10.4) 12/17/22 19:45 Neut % (Auto) 67.3 % 12/17/22 19:45 Lymph % (Auto) 19.1 % 12/17/22 19:45 [place] % (Auto) 10.3 % 12/17/22 19:45 Eos % (Auto) 2.0 % 12/17/22 19:45 Baso % (Auto) 1.1 % 12/17/22 19:45 Neut # (Auto) 4.44 10^3/uL (1.8-7.7) 12/17/22 19:45 Lymph # (Auto) 1.3 10^3/uL (0.8-4.8) 12/17/22 19:45 [place] # (Auto) 0.7 10^3/uL (0.2-0.9) 12/17/22 19:45 Eos # (Auto) 0.1 10^3/uL (0.0-0.8) 12/17/22 19:45 Baso # (Auto) 0.1 10^3/uL (0.0-0.1) 12/17/22 19:45 Nucleated RBC % (auto) 0 % 12/17/22 19:45 Nucleated RBCs # 0.0 /100WBC 12/17/22 19:45 Sodium 140 mmol/L (136-145) 12/17/22 19:45 Potassium 3.3 mmol/L (3.5-5.1) L 12/17/22 19:45 Chloride 97 mmol/L (98-107) L 12/17/22 19:45 Carbon Dioxide 30 mmol/L (22-29) H 12/17/22 19:45 Anion Gap 16.3 (5-19) 12/17/22 19:45 BUN 38 mg/dL (8-23) H 12/17/22 19:45 Creatinine 1.6 mg/dL (0.5-0.9) H 12/17/22 19:45 GFR Calculation 32.3 mL/min (90-130) L 12/17/22 19:45 Glucose 77 mg/dL (65-115) 12/17/22 19:45 Calculated Osmolality 298 mOsm/kg (285-295) H 12/17/22 19:45 Calcium 10.0 mg/dL (8.5-10.5) 12/17/22 19:45 Total Bilirubin 0.5 mg/dL (0.15-1.2) 12/17/22 19:45 AST 25 U/L (0-32) 12/17/22 19:45 ALT 16 U/L (0-33) 12/17/22 19:45 Alkaline Phosphatase 81 U/L (35-105) 12/17/22 19:45 NT-Pro-B Natriuret Pep 692 pg/mL (0-125) H 12/17/22 19:45 Total Protein 7.8 g/dL (6.6-8.7) 12/17/22 19:45 Albumin 3.9 g/dL (3.5-5.2) 12/17/22 19:45 Globulin 3.9 g/dL (1.3-4.6) 12/17/22 19:45 Discharge Plan Discharge Patient Disposition: Home Clinical Impression: CKD (chronic kidney disease) stage 3, GFR 30-59 ml/min, Edema, peripheral, Congestive heart failure Condition: Stable Prescriptions: No Action (DME) pen needle, diabetic [TechLITE Pen Needle] 31 gauge x 5/16 needle See Rx Instructions .ROUTE .MEDSUPPLY Qty: 1,200 Rx Instructions: As directed primidone 50 mg tablet See Rx Instructions .ROUTE .COMPLEX Dose Instruction: TAKE ONE TABLET BY MOUTH WITH SUPPER FOR 1 WEEK THEN TAKE ONE TABLET BY MOUTH TWICE DAILY Rx Instructions: TAKE ONE TABLET BY MOUTH WITH SUPPER FOR 1 WEEK THEN TAKE ONE TABLET BY MOUTH TWICE DAILY hydralazine 50 mg tablet 50 mg PO TID Qty: 90 5RF (DME) wheelchair cushions See Rx Instructions .Route .MEDSUPPLY Qty: 1 0RF Rx Instructions: As directed (DME) Bariatric emy lift See Rx Instructions .Route .MEDSUPPLY Qty: 1 0RF Rx Instructions: BMI 57.5% weight 325# (DME) Alternating pressure mattress and pressure pump See Rx Instructions .Route .MEDSUPPLY Qty: 1 0RF Rx Instructions: As directed fluoxetine 20 mg capsule 20 mg PO DAILY@08 Qty: 30 2RF Rx Instructions: continue 40mg 2100 dose fluoxetine 40 mg capsule 40 mg PO DAILY@2100 Qty: 30 2RF dicyclomine 20 mg tablet 20 mg PO QID Qty: 120 2RF methocarbamol 500 mg tablet 500 mg PO TID PRN (Reason: Muscle Spasm) Qty: 90 2RF (DME) lancets [OneTouch Delica Lancets] 33 gauge misc See Rx Instructions .Route Qty: 100 5RF Rx Instructions: three times day insulin degludec [Tresiba FlexTouch U-200] 200 unit/mL (3 mL) insulin pen 80 unit SUBCUT DAILY Qty: 18 2RF insulin lispro [Humalog KwikPen Insulin] 100 unit/mL insulin pen See Rx Instructions SUBCUT .COMPLEX Qty: 15 0RF Rx Instructions: 6-27U SUBCUT three times daily subcutaneously; magnesium oxide 400 mg magnesium tablet 400 mg PO BEDTIME PRN (Reason: Muscle Spasm) Qty: 30 2RF Entresto 24-26 mg tablet 1 tab PO BID Qty: 60 2RF Eliquis 5 mg tablet 5 mg PO BID@0900,2100 Qty: 60 2RF scopolamine base 1 mg over 3 days patch 3 day 1 patch transdermal Q3D PRN (Reason: nausea and vomiting) Qty: 10 0RF nystatin-triamcinolone 100,000-0.1 unit/g-% cream 1 applic topical TID Qty: 30 0RF (DME) diabetic shoes with inserts See Rx Instructions .Route .MEDSUPPLY Qty: 1 0RF Rx Instructions: As directed (DME) compression socks, medium Misc See Rx Instructions .Route Qty: 2 0RF Rx Instructions: As directed clindamycin phosphate 1 % lotion See Rx Instructions .ROUTE .COMPLEX Qty: 60 1RF Dose Instruction: APPLY TOPICALLY TWICE DAILY NEEDED FOR SKIN IRRITATION Rx Instructions: APPLY TOPICALLY TWICE DAILY NEEDED FOR SKIN IRRITATION triamcinolone acetonide 0.1 % ointment 1 applic TOPICAL DAILY PRN (Reason: itching) Qty: 30 0RF isosorbide mononitrate 60 mg tablet extended release 24 hr 60 mg PO DAILY Qty: 90 3RF torsemide 100 mg tablet 100 mg PO DAILY Qty: 90 3RF Rx Instructions: Dose increased potassium chloride 20 mEq tablet extended release 30 meq PO DAILY Qty: 135 3RF albuterol sulfate [ProAir HFA] 90 mcg/actuation HFA aerosol inhaler 2 puff INHALATION Q4H PRN (Reason: shortness of breath or wheezing) Qty: 8.5 0RF nitroglycerin [Nitrostat] 0.4 mg tablet, sublingual 0.4 mg SUBLINGUAL Q5M PRN (Reason: Chest Pain) Qty: 50 3RF Rx Instructions: do not exceed 3 doses per episode (DME) OneTouch Ultra Test Strip See Rx Instructions .Route Qty: 100 5RF Rx Instructions: 1 strip three time day (DME) blood-glucose meter [OneTouch Ultra2 Meter] Kit See Rx Instructions .Route Qty: 1 0RF Rx Instructions: As directed hydroxychloroquine 200 mg tablet 200 mg PO BID Qty: 60 1RF doxycycline monohydrate 100 mg capsule 100 mg PO BID 7 Days Qty: 14 0RF cholecalciferol (vitamin D3) [Vitamin D3] 125 mcg (5,000 unit) Tablet 125 mcg PO DAILY acetaminophen 325 mg tablet 325 - 650 mg PO Q6H PRN (Reason: Pain) Vitamin B-12 50 mcg Tablet 50 mcg PO DAILY Qty: 0 sucralfate 100 mg/mL Suspension 1 g PO AC&BEDTIME Qty: 300 0RF carvedilol 12.5 mg tablet 6.25 mg PO BID hydroxyzine pamoate 50 mg capsule 50 mg PO TID metoprolol tartrate 50 mg tablet 25 mg PO BID Discharge Orders: Discharge ED (Routine); Ordered 12/17/22 Ordered By: Lul Alexandra Referrals: Savannah Martinez MD [Primary Care Provider] - Discharge Diet: Advance as tolerated Discharge Activity: Resume usual activity Patient Instructions: Opioid Safety, Pain Management Activity Restrictions/Additional Instructions: 1. Limit sodium and fluids. Take 1 1/2 pills of torsemide in divided doses. 2. Follow up on Tuesday or Tuesday with PCP for recheck. 3. Return to ED for new or worsening symptoms. Coding Level of Care Code ED Sales Negotiator for Anel Mcknight
[2022-12-17] MEDS: potassium chloride ER 20 mEq Tablet 40 MEQ PO (21:15)
[2022-12-17] MEDS: FUROsemide 10 mg/mL SDV 10mL 80 MG IVP (21:34)
[2022-12-17 22:03] VITALS: PULSE 97; RESP 20; O2SAT 97
== END 2022-12-17 22:00 | disposition home or self-care (01) ==
PROVIDERS: Emergency Provider Family Medicine; PCP Family Medicine
DX: I13.0 Hypertensive heart and chronic kidney disease with heart failure and stage 1 through stage 4 chronic kidney disease, or unspecified chronic kidney disease (principal); E11.22 Type 2 diabetes mellitus with diabetic chronic kidney disease; N18.30 Chronic kidney disease, stage 3 unspecified; I50.9 Heart failure, unspecified; R60.0 Localized edema; Z79.01 Long term (current) use of anticoagulants; Z79.4 Long term (current) use of insulin; Z87.891 Personal history of nicotine dependence; J44.9 Chronic obstructive pulmonary disease, unspecified
CPT/HCPCS: 36415; 71045; 80053; 83880; 85025; 96374; 99284; J1940

== ENCOUNTER → 2023-02-02 14:06 | Outpatient (BNVA) | payer MEDICARE, MEDICAID, SELFPAY | PROVIDERS: PCP Family Medicine; Visit Provider Internal Medicine Rheumatology | DX: M79.7 Fibromyalgia (principal); M19.90 Unspecified osteoarthritis, unspecified site; K58.9 Irritable bowel syndrome, unspecified; Z79.899 Other long term (current) drug therapy; M06.041 Rheumatoid arthritis without rheumatoid factor, right hand; M06.042 Rheumatoid arthritis without rheumatoid factor, left hand; M25.50 Pain in unspecified joint | CPT/HCPCS: 36415; 80076; 82565; 85025; 86140; 99214 ==

== ENCOUNTER → 2023-02-25 12:10 | Outpatient (BNVA) | payer MEDICARE, MEDICAID, SELFPAY | PROVIDERS: PCP Family Medicine; Visit Provider Family Medicine | DX: M62.838 Other muscle spasm (principal); I50.32 Chronic diastolic (congestive) heart failure; M19.90 Unspecified osteoarthritis, unspecified site; R29.6 Repeated falls | CPT/HCPCS: 80048; 83735 ==

== ENCOUNTER → 2023-03-02 12:00 | Outpatient (BNVA) | payer MEDICARE, MEDICAID, SELFPAY | PROVIDERS: PCP Nurse Practitioner; Visit Provider Nurse Practitioner | DX: I48.3 Typical atrial flutter (principal); E11.22 Type 2 diabetes mellitus with diabetic chronic kidney disease; K58.9 Irritable bowel syndrome, unspecified; F32.9 Major depressive disorder, single episode, unspecified; F41.8 Other specified anxiety disorders; M54.9 Dorsalgia, unspecified; G89.29 Other chronic pain; I50.22 Chronic systolic (congestive) heart failure; N18.30 Chronic kidney disease, stage 3 unspecified | CPT/HCPCS: 80053; 80061; 83036; 84443 ==

== ENCOUNTER → 2023-05-02 13:59 | Outpatient (BNVA) | payer MEDICARE, MEDICAID, SELFPAY | PROVIDERS: PCP Nurse Practitioner; Visit Provider Internal Medicine Rheumatology | DX: M79.7 Fibromyalgia (principal); M06.041 Rheumatoid arthritis without rheumatoid factor, right hand; M06.042 Rheumatoid arthritis without rheumatoid factor, left hand; Z79.899 Other long term (current) drug therapy; K58.9 Irritable bowel syndrome, unspecified; R76.8 Other specified abnormal immunological findings in serum | CPT/HCPCS: 36415; 80076; 82565; 85025; 86140; 99214 ==

== ENCOUNTER 2023-05-25 11:29 | Oncology outpatient (recurring) (ONCR) | payer MEDICARE, MEDICAID, SELFPAY ==
[2023-05-25 11:34] VITALS: BP 171/85; PULSE 93; RESP 18; TEMP 36.8; O2SAT 95
[2023-05-25 11:51] LABS: Basophils # 0.1 10^3/uL (0.0-0.1); Basophils % 1.5 %; Eosinophils # 0.3 10^3/uL (0.0-0.8); Eosinophils % 4.7 %; Hematocrit 31.1 % (37.0-47.0); Hemoglobin 10.2 g/dL (11.5-15.3); Lymphocytes # 1.2 10^3/uL (0.8-4.8); Mean Corpuscular HGB Conc 32.8 g/dL (30.0-36.0); Mean Corpuscular Hemoglobin 28.6 pg (28.0-34.0); Mean Corpuscular Volume 87.1 fl (81-99); Mean Platelet Volume 10.1 fL (7.4-10.4); Monocytes # 0.5 10^3/uL (0.2-0.9); Neutrophils % 65.1 %; Nucleated Red Blood Cells % 0 %; Platelet Count 176 10^3/cmm (130-400); Red Blood Count 3.57 10^6/uL (4.1-5.3); Red Cell Distribution Width 12.8 % (12.1-15.1)
[2023-05-25 11:58] LABS: Erythrocyte Sedimentation Rate 52 mm/hr (0-15)
[2023-05-25 12:01] LABS: Estmated Average Glucose 174; Hemoglobin A1C 7.7 % (4.0-6.0)
[2023-05-25 12:17] LABS: Alanine Aminotransferase 14 U/L (0-33); Albumin Level 3.6 g/dL (3.5-5.2); Alkaline Phosphatase 84 U/L (35-105); Anion Gap 15.5 (5-19); Aspartate Amino Transferase 15 U/L (0-32); Blood Urea Nitrogen 40 mg/dL (8-23); Calcium 9.1 mg/dL (8.5-10.5); Carbon Dioxide 26 mmol/L (22-29); Chloride 102 mmol/L (98-107); Glomerular Filtration Rate 32.2 mL/min (90-130); Glucose 189 mg/dL (65-115); Osmolality Calculated 305 mOsm/kg (285-295); Potassium 3.5 mmol/L (3.5-5.1); Sodium 140 mmol/L (136-145); Total Bilirubin 0.2 mg/dL (0.15-1.2); Total Protein 6.6 g/dL (6.6-8.7)
[2023-05-25 14:50] LABS: Ferritin 140 ng/mL (15-150); Iron 54 ug/dL (37-145); Percent Saturation 25.7 % (20-50); Total Iron Binding Capacity 210 mcg/dl; Unsaturated Iron Binding 156 ug/dL (112-347)
[2023-05-25 15:07] LABS: Vitamin B12 1238 pg/mL (232-1245)
[2023-05-26 07:23] LABS: PROTEIN, TOTAL 6.2 g/dL (6.1-8.1)
[2023-05-26 14:29] LABS: ALBUMIN 3.2 g/dL (3.8-4.8); ALPHA 1 GLOBULIN 0.3 g/dL (0.2-0.3); ALPHA 2 GLOBULIN 0.9 g/dL (0.5-0.9); BETA 1 GLOBULIN 0.4 g/dL (0.4-0.6); BETA 2 GLOBULIN 0.5 g/dL (0.2-0.5); GAMMA GLOBULIN 0.8 g/dL (0.8-1.7)
== END 2023-06-20 23:59 | disposition home or self-care (01) ==
LOC: ONCMED 11:30
PROVIDERS: Nurse Practitioner Family; PCP Nurse Practitioner; Visit Provider Internal Medicine Medical Oncology
DX: D47.2 Monoclonal gammopathy (principal); D64.9 Anemia, unspecified; R10.84 Generalized abdominal pain; E11.22 Type 2 diabetes mellitus with diabetic chronic kidney disease
CPT/HCPCS: 36415; 80053; 82607; 82728; 83036; 83540; 83550; 84155; 84165; 85025; 85651; 99213

== ENCOUNTER → 2023-06-14 13:03 | Outpatient (BNVA) | payer MEDICARE, MEDICAID, SELFPAY | PROVIDERS: PCP Nurse Practitioner; Visit Provider Specialist | DX: G31.84 Mild cognitive impairment of uncertain or unknown etiology (principal); G47.33 Obstructive sleep apnea (adult) (pediatric) | CPT/HCPCS: 99214 ==

== ENCOUNTER → 2023-07-28 16:03 | Outpatient (BNVA) | payer MEDICARE, MEDICAID, SELFPAY | PROVIDERS: PCP Nurse Practitioner; Visit Provider Emergency Medicine | DX: R51.9 Headache, unspecified (principal); U07.1 COVID-19 | CPT/HCPCS: 87426 ==

== ENCOUNTER 2023-08-13 15:22 | Inpatient (IN) | payer MEDICARE, MEDICAID, SELFPAY ==
--- NOTE | 2023-08-13 15:27 | ECG_ITS ---
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 Measurements Intervals [place] Rate: 72 P: 79 MA: 232 QRS: -73 QRSD: 153 T: 46 QT: 464 QTc: 510 Interpretive Statements SINUS RHYTHM WITH FIRST DEGREE AV BLOCK RIGHT BUNDLE BRANCH BLOCK [120+ ms QRS DURATION, UPRIGHT V1, 40+ ms S IN I/aVL/V4/V5/V6] LEFT ANTERIOR FASCICULAR BLOCK [QRS AXIS <= -45, QR IN I, RS IN II] SEPTAL MYOCARDIAL INFARCTION , PROBABLY OLD [40+ ms Q WAVE IN V1/V2] Compared to ECG 05/31/2022 14:01:15 First degree AV block now present Left anterior fascicular block now present Left-axis deviation no longer present Myocardial infarct finding still present Electronically Signed On 08-13-2023 20:30:01 CDT by Addison Morales M.D. [email or web address]
[2023-08-13 15:28] VITALS: BP 162/64; PULSE 72; RESP 17; TEMP 37.4; O2SAT 96; BMI 54.9
--- NOTE | 2023-08-13 16:40 | XRR_ITS ---
PROCEDURE INFORMATION: Exam: XR Chest Exam date and time: 08/13/2023 4:50 PM Age: 68 years old Clinical indication: Pain; Chest pressure; Additional info: Chest pain TECHNIQUE: Imaging protocol: Radiologic exam of the chest. Views: 1 view. COMPARISON: CR (CHEST, ) 12/17/2022 7:15 PM FINDINGS: Lungs: See Pleural spaces finding. Pleural spaces: There is obscuration of the left hemidiaphragm due to a pleural effusion. Cannot exclude accompanying infiltrate or atelectasis. Lung shaikh are otherwise clear. Heart/Mediastinum: Borderline cardiomegaly. Bones/joints: Unremarkable. XR/XR chest 1V portable [id number] IMPRESSION: Left basilar opacity as described above.
[2023-08-13 17:10] LABS: Basophils # 0.1 10^3/uL (0.0-0.1); Basophils % 0.6 %; Eosinophils # 0.2 10^3/uL (0.0-0.8); Hematocrit 25.3 % (36-47); Lymphocytes # 1.2 10^3/uL (0.8-4.8); Lymphocytes % 10.9 %; Mean Corpuscular HGB Conc 32.4 g/dL (30-55); Mean Corpuscular Hemoglobin 28.4 pg (27-33); Mean Corpuscular Volume 87.5 fl (85-98); Mean Platelet Volume 10.7 fL (7.4-10.4); Monocytes # 0.7 10^3/uL (0.2-0.9); Monocytes % 6.7 %; Neutrophils # 8.54 10^3/uL (1.8-7.7); Neutrophils % 78.6 %; Nucleated Red Blood Cells % 0 %; Platelet Count 278 10^3/cmm (157-399); Red Blood Count 2.89 10^6/uL (3.85-5.65); Red Cell Distribution Width 12.9 % (12.1-15.1); White Blood Count 10.86 10^3/uL (3.29-11.43)
--- NOTE | 2023-08-13 17:15 | ED_ITS ---
Documented by User: Lazaro Moses DO 08/14/23 15:09 HPI - Chest Pain General: Chief Complaint: Chest Pain Stated Complaint: chest pain Time Seen by Provider: 08/13/23 16:30 Source: patient Mode of arrival: wheelchair History of Present Illness: 68-year-old female with chest discomfort and shortness of breath. Patient recently was diagnosed with COVID. She also complains of some abdominal blo ating has been ongoing issue and she is being evaluated as an outpatient she has testing upcoming. She has noticed some swelling in her ankle. Intermittent vague chest pain very nonspecific. No fever sweats or chills she still has residual cough from her recent COVID MD complaint: chest pain and chest heaviness Onset (ago): day(s) Timing of current episode: episodic Onset: during rest Pain location: left chest Quality: sharp Relieving factors: nothing Exacerbating factors: nothing Associated symptoms: Deny abdominal pain, diaphoresis, dyspnea, fever(s), leg edema, nausea, palpitations, sense of impending doom, syncope or vomiting Review of Systems Const: Denies: fever(s) or diaphoresis ENMT: Denies: throat pain, ear or mastoid pain, nasal discharge or nasal congestion Card: Reports: chest pain, dyspnea on exertion and orthopnea; Denies: palpitations or syncope Resp: Reports: non-productive cough; Denies: dyspnea or productive cough GI: Denies: abdominal pain, nausea or vomiting : Denies: flank pain, difficulty voiding, dysuria, urinary frequency or urinary urgency Skin/Breast: Denies: rash or pruritus PFSH ED PFSH: Medical History Anxiety Atrial flutter Atypical chest pain Back pain Benign hypertension Chronic back pain Chronic major depressive disorder Chronic obstructive pulmonary disease, unspecified CKD (chronic kidney disease) Coronary artery fistula Diabetic neuropathy associated with type 2 diabetes mellitus Dietary noncompliance Diverticulosis Environmental and seasonal allergies Essential tremor Fibromyalgia Fracture of distal end of fibula High risk medication use Hip pain, left IBS (irritable bowel syndrome) IgM monoclonal gammopathy of uncertain significance Inflammatory arthritis Left lumbar radiculopathy Major depression Mild cognitive impairment with memory loss Mobility impaired Near syncope Noncompliance with diabetes treatment Not consistent with diet Obesity Peripheral neuropathy Polyarthralgia Positive GIFTY (antinuclear antibody) Seronegative rheumatoid arthritis of both hands Severe obstructive sleep apnea Syncope and collapse Type 2 diabetes mellitus with diabetic chronic kidney disease Urinary disorder Vitamin D deficiency Surgical History History of section 4 times History of cholecystectomy (1993) History of hysterectomy (1997) with BSO History of left heart catheterization (2017) No significant obstructive coronary disease History of tonsillectomy Hx of colonoscopy Hx of esophagogastroduodenoscopy Family History Brother Bleeding disorder CAD (coronary artery disease) Father CAD (coronary artery disease) Chronic kidney disease (CKD) Mother CAD (coronary artery disease) Cancer Diabetes Family/Other Cancer Other CHF (congestive heart failure) Heart disease Hypertension Denies family history of Clotting disorder Dementia Suicide Anesthesia complication Lung disease Stroke Social History Smoking and tobacco status: former smoker Quit status (tobacco): has quit using tobacco Year quit tobacco: 1990 Former quit date comment: smoked 20+ years Second hand smoke exposure: No Smoking risk assessment/counseling performed?: No Alcohol intake: never Desire information about alcohol rehabilitation?: No Counseling given: No Substance/Drug Use: never Desire information about substance/drug rehabilitation?: No Counseling given: No Adopted: No Caregiver/support person: Yes Lives independently: No Household members: children and other Details: Son, sometimes grandson Housing: House Marital status: Single service: No Current occupational status: disabled Do you think of yourself as: Straight/Heterosexual Current gender identity: Female Physical Exam Const: GENERAL APPEARANCE: cooperative and comfortable ORIENTATION/CONSCIOUSNESS: Yes oriented to person, Yes oriented to place and Yes oriented to time HENMT: COMMON NORMALS: normocephalic, atraumatic and hearing grossly normal bilaterally HEAD & SCALP: normocephalic and atraumatic Resp: COMMON NORMALS: normal respiratory effort, No retractions and No use of accessory muscles AUSCULTATION: crackles Cardio: COMMON NORMALS: regular rate, regular rhythm and No murmurs present (Cardio) RATE: regular rate RHYTHM: regular rhythm GI: COMMON NORMALS: Soft to palpation and No hepatosplenomegaly present AUSCULTATION: Yes normoactive bowel sounds PALPATION: Yes Soft to palpation, No Tenderness to palpation present (GI), No Guarding due to palpation present (GI) and Yes No hepatosplenomegaly present Extremity: COMMON NORMALS: normal to inspection, capillary refill normal and no calf tenderness GENERAL: Yes edema (2+ lower extremity) Neuro: SENSORIUM/ORIENTATION: Yes oriented to person, Yes oriented to place and Yes oriented to time Skin: COMMON NORMALS: no rashes or lesions noted GENERAL SKIN EXAM: no rashes or lesions noted Course Vital Signs: Vital signs: Vital Signs Temperature 99.8 F H 08/14/23 10:28 Pulse Rate 72 08/14/23 14:42 Respiratory Rate 18 08/14/23 14:00 Blood Pressure 146/72 08/14/23 10:28 Pulse Oximetry 94 08/14/23 14:00 Oxygen Delivery Me thod Nasal Cannula 08/14/23 14:00 Oxygen Flow Rate 2 08/14/23 14:00 MDM - Chest Pain Medical Decision Making Care signed out to Dr. Gilbert at change of shift. See final notes for diagnosis and disposition. 68-year-old female checked out to me by Dr. Moses at shift change. This lady has multiple complaints including chest pain, abdominal pain, shortness of breath, and a perceived increase in oxygen demand. She was moderately hypertensive. Has a low-grade temperature. Saturations remain good on 2 L nasal cannula, which she uses at home. She states that she feels swollen in her belly and legs. Spoke with the hospitalist. This patient is a hemoglobin of 8, creatinine of 2, both of which are worse than prior. CTA of the chest shows bilateral small pleural effusions. Her BNP is significantly elevated. She has received nitroglycerin, Nitropaste, fentanyl for chest discomfort, and Lasix here in the ER. She will be observed. We will continue diuresis, nitro glycerin for afterload reduction, etc. Hospitalist will see the patient. Lab Data 08/14/23 04:58 08/14/23 04:58 Radiology Impressions Chest X-Ray 08/13/23 16:40 IMPRESSION: Left basilar opacity as described above. Chest CTA 08/13/23 17:28 IMPRESSION: 1. No pulmonary embolus. 2. Geographic regions hypoattenuation throughout both lungs which can be seen in the setting of air trapping secondary to small airways disease. 3. Small bilateral pleural effusions. 4. No focal consolidation. Abdomen/Pelvis CT 08/14/23 13:00 IMPRESSION: No acute findings to account for abdominal pain. Laboratory Results WBC 10.86 10^3/uL (3.29-11.43) 08/13/23 16:35 RBC 2.89 10^6/uL (3.85-5.65) L 08/13/23 16:35 Hgb 8.20 g/dL (11.27-16.99) L 08/13/23 16:35 Hct 25.3 % (36-47) L 08/13/23 16:35 MCV 87.5 fl (85-98) 08/13/23 16:35 MCH 28.4 pg (27-33) 08/13/23 16:35 MCHC 32.4 g/dL (30-55) 08/13/23 16:35 RDW 12.9 % (12.1-15.1) 08/13/23 16:35 Plt Count 278 10^3/cmm (157-399) 08/13/23 16:35 MPV 10.7 fL (7.4-10.4) H 08/13/23 16:35 Neut % (Auto) 78.6 % 08/13/23 16:35 Lymph % (Auto) 10.9 % 08/13/23 16:35 [place] % (Auto) 6.7 % 08/13/23 16:35 Eos % (Auto) 2.0 % 08/13/23 16:35 Baso % (Auto) 0.6 % 08/13/23 16:35 Neut # (Auto) 8.54 10^3/uL (1.8-7.7) H 08/13/23 16:35 Lymph # (Auto) 1.2 10^3/uL (0.8-4.8) 08/13/23 16:35 [place] # (Auto) 0.7 10^3/uL (0.2-0.9) 08/13/23 16:35 Eos # (Auto) 0.2 10^3/uL (0.0-0.8) 08/13/23 16:35 Baso # (Auto) 0.1 10^3/uL (0.0-0.1) 08/13/23 16:35 Nucleated RBC % (auto) 0 % 08/13/23 16:35 Nucleated RBCs # 0.0 /100WBC 08/13/23 16:35 D-Dimer 1.30 ug/mLFEU (0-0.59) H 08/13/23 16:35 Sodium 133 mmol/L (136-145) L 08/13/23 16:35 Potassium 4.4 mmol/L (3.5-5.1) 08/13/23 16:35 Chloride 97 mmol/L (98-107) L 08/13/23 16:35 Carbon Dioxide 28 mmol/L (22-29) 08/13/23 16:35 Anion Gap 12.4 (5-19) 08/13/23 16:35 BUN 34 mg/dL (8-23) H 08/13/23 16:35 Creatinine 1.9 mg/dL (0.5-0.9) H 08/13/23 16:35 GFR Calculation 26.4 mL/min (90-130) L 08/13/23 16:35 Glucose 159 mg/dL (65-115) H 08/13/23 16:35 Calculated Osmolality 287 mOsm/kg (285-295) 08/13/23 16:35 Calcium 8.7 mg/dL (8.5-10.5) 08/13/23 16:35 Total Bilirubin 0.2 mg/dL (0.15-1.2) 08/13/23 16:35 AST 17 U/L (0-32) 08/13/23 16:35 ALT 14 U/L (0-33) 08/13/23 16:35 Alkaline Phosphatase 82 U/L (35-105) 08/13/23 16:35 Troponin T Baseline 53 ng/L (0-10) H 08/13/23 16:35 Troponin T 120 Minute 52.33 ng/L (0-10) H 08/13/23 18:37 Delta Troponin T -0.67 ABS# (0-10) L 08/13/23 18:37 NT-Pro-B Natriuret Pep 3708 pg/mL (0-125) H 08/13/23 16:35 Total Protein 5.8 g/dL (6.6-8.7) L 08/13/23 16:35 Albumin 3.1 g/dL (3.5-5.2) L 08/13/23 16:35 Globulin 2.7 g/dL (1.3-4.6) 08/13/23 16:35 Discharge Plan Discharge Patient Disposition: Placed in Observation Admit Provider: Tom Styles Clinical Impression: Chest pain, CKD (chronic kidney disease) stage 3, GFR 30-59 ml/min, Anemia Coding Level of Care Code ED Assembly Line Machine Operator for Chg Fwd Documented by User: Carlo Gilbert DO 08/13/23 21:16 HPI - Chest Pain General: Chief Complaint: Chest Pain Stated Complaint: chest pain Time Seen by Provider: 08/13/23 16:30 History of Present Illness: 68-year-old female with chest discomfort and shortness of breath. [facility] ED PFSH: Medical History Anxiety Atrial flutter Atypical chest pain Back pain Benign hypertension Chronic back pain Chronic major depressive disorder Chronic obstructive pulmonary disease, unspecified CKD (chronic kidney disease) Coronary artery fistula Diabetic neuropathy associated with type 2 diabetes mellitus Dietary noncompliance Diverticulosis Environmental and seasonal allergies Essential tremor Fibromyalgia Fracture of distal end of fibula High risk medication use Hip pain, left IBS (irritable bowel syndrome) IgM monoclonal gammopathy of uncertain significance Inflammatory arthritis Left lumbar radiculopathy Major depression Mild cognitive impairment with memory loss Mobility impaired Near syncope Noncompliance with diabetes treatment Not consistent with diet Obesity Peripheral neuropathy Polyarthralgia Positive GIFTY (antinuclear antibody) Seronegative rheumatoid arthritis of both hands Severe obstructive sleep apnea Syncope and collapse Type 2 diabetes mellitus with diabetic chronic kidney disease Urinary disorder Vitamin D deficiency Surgical History History of section 4 times History of cholecystectomy (1993) History of hysterectomy (1997) with BSO History of left heart catheterization (2017) No significant obstructive coronary disease History of tonsillectomy Hx of colonoscopy Hx of esophagogastroduodenoscopy Family History Brother Bleeding disorder CAD (coronary artery disease) Father CAD (coronary artery disease) Chronic kidney disease (CKD) Mother CAD (coronary artery disease) Cancer Diabetes Family/Other Cancer Other CHF (congestive heart failure) Heart disease Hypertension Denies family history of Clotting disorder Dementia Suicide Anesthesia complication Lung disease Stroke Social History Smoking and tobacco status: former smoker Quit status (tobacco): has quit using tobacco Year quit tobacco: 1990 Former quit date comment: smoked 20+ years Second hand smoke exposure: No Smoking risk assessment/counseling performed?: No Alcohol intake: never Desire information about alcohol rehabilitation?: No Counseling given: No Substance/Drug Use: never Desire information about substance/drug rehabilitation?: No Counseling given: No Adopted: No Caregiver/support person: Yes Lives independently: No Household members: children and other Details: Son, sometimes grandson Housing: House Marital status: Single service: No Current occupational status: disabled Do you think of yourself as: Straight/Heterosexual Current gender identity: Female Course Vital Signs: Vital signs: Vital Signs Temperature 99.8 F H 08/14/23 10:28 Pulse Rate 72 08/14/23 14:42 Respiratory Rate 18 08/14/23 14:00 Blood Pressure 146/72 08/14/23 10:28 Pulse Oximetry 94 08/14/23 14:00 Oxygen Delivery Me thod Nasal Cannula 08/14/23 14:00 Oxygen Flow Rate 2 08/14/23 14:00 MDM - Chest Pain Medical Decision Making 68-year-old female checked out to me by Dr. Moses at shift change. This lady has multiple complaints including chest pain, abdominal pain, shortness of breath, and a perceived increase in oxygen demand. She was moderately hypertensive. Has a low-grade temperature. Saturations remain good on 2 L nasal cannula, which she uses at home. She states that she feels swollen in her belly and legs. Spoke with the hospitalist. This patient is a hemoglobin of 8, creatinine of 2, both of which are worse than prior. CTA of the chest shows bilateral small pleural effusions. Her BNP is significantly elevated. She has received nitroglycerin, Nitropaste, fentanyl for chest discomfort, and Lasix here in the ER. She will be observed. We will continue diuresis, nitro glycerin for afterload reduction, etc. Hospitalist will see the patient. Lab Data 08/14/23 04:58 08/14/23 04:58 Radiology Impressions Chest X-Ray 08/13/23 16:40 IMPRESSION: Left basilar opacity as described above. Chest CTA 08/13/23 17:28 IMPRESSION: 1. No pulmonary embolus. 2. Geographic regions hypoattenuation throughout both lungs which can be seen in the setting of air trapping secondary to small airways disease. 3. Small bilateral pleural effusions. 4. No focal consolidation. Abdomen/Pelvis CT 08/14/23 13:00 IMPRESSION: No acute findings to account for abdominal pain. Laboratory Results WBC 10.86 10^3/uL (3.29-11.43) 08/13/23 16:35 RBC 2.89 10^6/uL (3.85-5.65) L 08/13/23 16:35 Hgb 8.20 g/dL (11.27-16.99) L 08/13/23 16:35 Hct 25.3 % (36-47) L 08/13/23 16:35 MCV 87.5 fl (85-98) 08/13/23 16:35 MCH 28.4 pg (27-33) 08/13/23 16:35 MCHC 32.4 g/dL (30-55) 08/13/23 16:35 RDW 12.9 % (12.1-15.1) 08/13/23 16:35 Plt Count 278 10^3/cmm (157-399) 08/13/23 16:35 MPV 10.7 fL (7.4-10.4) H 08/13/23 16:35 Neut % (Auto) 78.6 % 08/13/23 16:35 Lymph % (Auto) 10.9 % 08/13/23 16:35 [place] % (Auto) 6.7 % 08/13/23 16:35 Eos % (Auto) 2.0 % 08/13/23 16:35 Baso % (Auto) 0.6 % 08/13/23 16:35 Neut # (Auto) 8.54 10^3/uL (1.8-7.7) H 08/13/23 16:35 Lymph # (Auto) 1.2 10^3/uL (0.8-4.8) 08/13/23 16:35 [place] # (Auto) 0.7 10^3/uL (0.2-0.9) 08/13/23 16:35 Eos # (Auto) 0.2 10^3/uL (0.0-0.8) 08/13/23 16:35 Baso # (Auto) 0.1 10^3/uL (0.0-0.1) 08/13/23 16:35 Nucleated RBC % (auto) 0 % 08/13/23 16:35 Nucleated RBCs # 0.0 /100WBC 08/13/23 16:35 D-Dimer 1.30 ug/mLFEU (0-0.59) H 08/13/23 16:35 Sodium 133 mmol/L (136-145) L 08/13/23 16:35 Potassium 4.4 mmol/L (3.5-5.1) 08/13/23 16:35 Chloride 97 mmol/L (98-107) L 08/13/23 16:35 Carbon Dioxide 28 mmol/L (22-29) 08/13/23 16:35 Anion Gap 12.4 (5-19) 08/13/23 16:35 BUN 34 mg/dL (8-23) H 08/13/23 16:35 Creatinine 1.9 mg/dL (0.5-0.9) H 08/13/23 16:35 GFR Calculation 26.4 mL/min (90-130) L 08/13/23 16:35 Glucose 159 mg/dL (65-115) H 08/13/23 16:35 Calculated Osmolality 287 mOsm/kg (285-295) 08/13/23 16:35 Calcium 8.7 mg/dL (8.5-10.5) 08/13/23 16:35 Total Bilirubin 0.2 mg/dL (0.15-1.2) 08/13/23 16:35 AST 17 U/L (0-32) 08/13/23 16:35 ALT 14 U/L (0-33) 08/13/23 16:35 Alkaline Phosphatase 82 U/L (35-105) 08/13/23 16:35 Troponin T Baseline 53 ng/L (0-10) H 08/13/23 16:35 Troponin T 120 Minute 52.33 ng/L (0-10) H 08/13/23 18:37 Delta Troponin T -0.67 ABS# (0-10) L 08/13/23 18:37 NT-Pro-B Natriuret Pep 3708 pg/mL (0-125) H 08/13/23 16:35 Total Protein 5.8 g/dL (6.6-8.7) L 08/13/23 16:35 Albumin 3.1 g/dL (3.5-5.2) L 08/13/23 16:35 Globulin 2.7 g/dL (1.3-4.6) 08/13/23 16:35 All radiology interpretation(s) finalized by discharge Discharge Plan Discharge Patient Disposition: Placed in Observation Admit Provider: Tom Styles Clinical Impression: Chest pain, CKD (chronic kidney disease) stage 3, GFR 30-59 ml/min, Anemia Coding Level of Care Code ED Assembly Line Machine Operator for Anel Mcknight
--- NOTE | 2023-08-13 17:28 | CTR_ITS ---
PROCEDURE INFORMATION: Exam: CTA Chest With Contrast Exam date and time: 08/13/2023 5:41 PM Age: 68 years old Clinical indication: Pain and abnormal findings; Abnormal diagnostic tests; Elevated d-dimer; Chest pressure; Prior surgery; Surgery date: 6+ months; Surgery type: Gb; Patient HX: Cp with dyspnea. Dimer of 1.30. TECHNIQUE: Imaging protocol: Computed tomographic angiography of the chest with contrast. Exam focused on the arteries. 3D rendering (Not supervised by radiologist): MIP and/or 3D reconstructed images were created by the technologist. Radiation optimization: All CT scans at this facility use at least one of these dose optimization techniques: automated exposure control; mA and/or kV adjustment per patient size (includes targeted exams where dose is matched to clinical indication); or iterative reconstruction. Contrast material: OMNI 350; Contrast volume: 100 ml; Contrast route: INTRAVENOUS (IV); REPORTING DATA: Count of CT and Cardiac NM exams in prior 12 months: This patient has received 0 known CTs and 0 known cardiac nuclear medicine studies in the 12 months prior to the current study. COMPARISON: CT angio chest PE protcl [id number] 05/31/2022 6:57 PM RADIATION DOSE METRICS: Total DLP (mGy-cm): 560.81 FINDINGS: Pulmonary arteries: No pulmonary embolus. Aorta: Unremarkable. No aortic aneurysm. No aortic dissection. Lungs: Geographic regions hypoattenuation throughout both lungs which can be seen in the setting of air trapping secondary to small airways disease. No focal consolidation. Pleural spaces: Small bilateral pleural effusions. Heart: Unremarkable. No cardiomegaly. No pericardial effusion. Lymph nodes: Unremarkable. No enlarged lymph nodes. Liver: The liver has a nodular contour which can be seen in the setting of cirrhosis. Gallbladder and bile ducts: The gallbladder is absent. Bones/joints: Unremarkable. No acute fracture. Soft tissues: Unremarkable. CT/CT angio chest PE protcl [id number] IMPRESSION: 1. No pulmonary embolus. 2. Geographic regions hypoattenuation throughout both lungs which can be seen in the setting of air trapping secondary to small airways disease. 3. Small bilateral pleural effusions. 4. No focal consolidation.
[2023-08-13 17:29] LABS: Troponin(5th) Baseline 53 ng/L (0-10)
[2023-08-13 17:34] LABS: Alanine Aminotransferase 14 U/L (0-33); Albumin Level 3.1 g/dL (3.5-5.2); Alkaline Phosphatase 82 U/L (35-105); Anion Gap 12.4 (5-19); Aspartate Amino Transferase 17 U/L (0-32); Blood Urea Nitrogen 34 mg/dL (8-23); Calcium 8.7 mg/dL (8.5-10.5); Carbon Dioxide 28 mmol/L (22-29); Chloride 97 mmol/L (98-107); Globulin 2.7 g/dL (1.3-4.6); Glomerular Filtration Rate 26.4 mL/min (90-130); Glucose 159 mg/dL (65-115); Osmolality Calculated 287 mOsm/kg (285-295); Potassium 4.4 mmol/L (3.5-5.1); Sodium 133 mmol/L (136-145); Total Bilirubin 0.2 mg/dL (0.15-1.2); Total Protein 5.8 g/dL (6.6-8.7)
[2023-08-13] MEDS: iohexol 350 mg/mL 500 mL Btl (per mL) IV (17:48)
[2023-08-13 17:56] LABS: NT Pro B Type Natriuretic Pept 3708 pg/mL (0-125)
--- NOTE | 2023-08-13 18:34 | ECG_ITS ---
[facility] Test Date: 2023-08-13 Pat Name: Jennifer Novak Department: Room: Gender: Female Home Care Manager Rn: : 1955 Requested By: Lazaro Willson Order Number: [id number] Cierra MD: Addison Morales M.D. Measurements Intervals [place] Rate: 73 P: 87 TN: 174 QRS: -70 QRSD: 154 T: 48 QT: 463 QTc: 513 Interpretive Statements SINUS RHYTHM RIGHT BUNDLE BRANCH BLOCK [120+ ms QRS DURATION, UPRIGHT V1, 40+ ms S IN I/aVL/V4/V5/V6] LEFT ANTERIOR FASCICULAR BLOCK [QRS AXIS <= -45, QR IN I, RS IN II] Compared to ECG 08/13/2023 15:27:36 First degree AV block no longer present Myocardial infarct finding no longer present Electronically Signed On 08-13-2023 20:31:08 CDT by Addison Morales M.D. [email or web address]
[2023-08-13] MEDS: ondansetron 2 mg/ML SDV 2 mL 4 MG IVP (18:42)
[2023-08-13] MEDS: FUROsemide 10 mg/mL SDV 10mL 60 MG IVP (18:43)
[2023-08-13] MEDS: fentaNYL 50 mcg/mL INJ 2mL IVP ×2 (18:44→20:39)
[2023-08-13 19:06] LABS: Troponin 5 2HR 52.33 ng/L (0-10)
[2023-08-13 19:10] LABS: Troponin 5 2HR Delta -0.67 ABS# (0-10)
[2023-08-13 20:39] VITALS: RESP 21
[2023-08-13] MEDS: nitroglycerin 1 gm/inch oint Pkt 1.5 INCH TOPICAL (20:40)
[2023-08-13 21:00] VITALS: BP 158/70; PULSE 73; RESP 20; O2SAT 99
[2023-08-13 21:22] LABS: Glucose Point of Care 113 mg/dL (70-110)
[2023-08-13 21:45] VITALS: BP 180/73; PULSE 76; RESP 18; TEMP 36.5; O2SAT 93
[2023-08-13 21:50] VITALS: PULSE 76
--- NOTE | 2023-08-13 22:58 | PM.HP ---
Providers/Chief Complaint Admitting Physician: Tom Styles MD Primary Care Provider: Lorenzo Muller, CONTINUOUS MINER OPERATOR HELPER-C Chief Complaint: chest pain History of Present Illness Jennifer Novak is a 68 year old female with low level MGUS, ?hypertension, hyperlipidemia, type 2 diabetes, CKD, atrial flutter, congestive heart failure and COPD, chronically on 2 lpm NC.?She was diagnosed with COVID approximately 2 weeks ago treated with Paxlovid. States that she has been experiencing increased cough, chest discomfort and dyspnea since this diagnosis. No nausea, vomiting, diaphoresis. Review of Systems General: Reports: 10 or more systems reviewed and unremarkable except in HPI and below Const: Denies: fever(s), chills or body aches Eyes: Denies: change in vision, blurry vision or photophobia ENMT: Reports: hoarseness; Denies: throat pain, enlarged tonsils, odynophagia or nasal congestion Card: Denies: chest pain, palpitations, irregular heart rhythm, edema, swelling of feet/ankles, lightheadedness, pre-syncope, dyspnea on exertion or orthopnea Resp: Denies: dyspnea, productive cough, non-productive cough, wheezing, stridor, pain on inspiration, change in phlegm color, hemoptysis or chest congestion GI: Denies: abdominal pain, nausea, vomiting, hematemesis, coffee ground emesis, dysphagia, heartburn, diarrhea, constipation, GI cramping, change in stool character, hematochezia or melena : Denies: flank pain, difficulty voiding, dysuria, urinary frequency, urinary urgency, urinary hesitancy or hematuria Musc: Denies: neck pain, back pain, extremity pain, joint swelling, joint warmth or deformity Neuro: Denies: headache(s), numbness in extremities, weakness in extremities, sensory changes, difficulty walking, frequent falls, dizziness, vertigo, behavioral changes, Slurred speech present or seizure-like activity Psych: Denies: anxiety, depression, suicidal ideation or homicidal ideation Endo: Denies: polyuria, polydipsia, tired all the time, cold intolerance or hot flashes Kobe/Lymph: Denies: easy bruising or easy bleeding Medications/Allergies Home Medications Medication Instructions Recorded Confirmed Last Taken Type cholecalciferol (vitamin D3) 125 125 mcg PO DAILY 05/14/21 08/13/23 08/13/23 09:00 History mcg (5,000 unit) tablet (Vitamin D3) acetaminophen 325 mg tablet 325 - 650 mg PO Q6H PRN Pain 12/13/21 08/13/23 Unknown History wheelchair cushions #1 ea 01/12/22 07/28/23 Unknown Rx clindamycin phosphate 1 % lotion See Rx Instructions .Route 02/03/22 08/13/23 05/31/22 Rx .COMPLEX #60 mL Alternating pressure mattress and #1 ea 02/12/22 07/28/23 Unknown Rx pressure pump cyanocobalamin (vitamin B-12) 50 50 mcg PO DAILY ##0 04/12/22 08/13/23 08/13/23 09:00 History mcg tablet (Vitamin B-12) metoprolol tartrate 50 mg tablet 25 mg PO BID 05/31/22 08/13/23 08/13/23 09:00 History potassium chloride 20 mEq 30 meq PO DAILY #135 tabs 07/21/22 08/13/23 08/11/23 09:00 Rx tablet,extended release torsemide 100 mg tablet 100 mg PO DAILY #90 tabs 07/21/22 08/13/23 08/13/23 09:00 Rx nitroglycerin 0.4 mg sublingual 0.4 mg sublingual Q5M PRN Chest 09/20/22 08/13/23 Unknown Rx tablet (Nitrostat) Pain #50 tabs blood-glucose meter (OneTouch #1 ea 09/29/22 07/28/23 Unknown Rx Ultra2 Meter kit) pen needle, diabetic 31 gauge x #200 ea 01/11/23 07/28/23 Unknown Rx 5/16 (TechLITE Pen Needle) hydralazine 50 mg tablet 50 mg PO TID #90 tabs 01/27/23 08/13/23 08/13/23 09:00 Rx Motorized lift chair #1 ea 02/25/23 07/28/23 Unknown Rx diabetic shoes with inserts #1 ea 02/25/23 07/28/23 Unknown Rx blood sugar diagnostic (OneTouch #100 ea 03/02/23 07/28/23 Unknown Rx Ultra Test strips) isosorbide mononitrate 60 mg 60 mg PO DAILY #90 tabs 04/13/23 08/13/23 08/13/23 09:00 Rx tablet,extended release 24 hr hydroxychloroquine 200 mg tablet 200 mg PO BID #180 tabs 05/02/23 08/13/23 08/13/23 09:00 Rx leflunomide 20 mg tablet 20 mg PO DAILY #30 tabs 05/02/23 07/28/23 Unknown Rx apixaban 5 mg tablet (Eliquis) 5 mg PO BID@0900,2100 #60 tabs 05/10/23 08/13/23 08/13/23 09:00 Rx dicyclomine 20 mg tablet 20 mg PO QID #120 tabs 05/10/23 08/13/23 08/13/23 09:00 Rx hydroxyzine pamoate 50 mg capsule 50 mg PO TID #90 caps 05/10/23 08/13/23 08/13/23 09:00 Rx insulin degludec 200 unit/mL (3 80 unit (0.4 mL) SUBCUT DAILY #18 05/10/23 08/13/23 08/13/23 09:00 Rx mL) subcutaneous pen (Tresiba mL FlexTouch U-200 insulin) insulin lispro 100 unit/mL See Rx Instructions SUBCUT 05/10/23 08/13/23 08/10/23 Rx subcutaneous pen (Humalog KwikPen .COMPLEX #15 mL (U-100) Insulin) triamcinolone acetonide 0.1 % 1 applic topical DAILY PRN itching 05/10/23 07/28/23 Unknown Rx topical ointment #30 grams lancets 33 gauge ([employer] Delica #100 ea 05/13/23 07/28/23 Unknown Rx Lancets) lancing device with lancets kit #1 ea 05/13/23 07/28/23 Unknown Rx (OneTouch Delica Plus Lancing Device kit) ondansetron 8 mg disintegrating 8 mg PO Q8H PRN nausea and 08/11/23 08/13/23 08/13/23 09:00 Rx tablet vomiting #7 tabs albuterol sulfate 90 mcg/actuation 2 puff inhalation Q4H PRN 08/12/23 08/13/23 08/13/23 20:00 Rx aerosol inhaler (ProAir HFA) shortness of breath or wheezing #8.5 grams fluoxetine 20 mg capsule 20 mg PO DAILY 08/13/23 08/13/23 08/12/23 21:00 History fluoxetine 40 mg capsule 40 mg PO DAILY 08/13/23 08/13/23 08/13/23 09:00 History magnesium oxide 400 mg PO DAILY PRN Muscle Spasm 08/13/23 08/13/23 08/13/23 09:00 History sacubitril 24 mg-valsartan 26 mg 1 tab PO DAILY 08/13/23 08/13/23 08/13/23 09:00 History tablet (Entresto) Allergies Allergy/AdvReac Type Severity Reaction Status Date / Time acetaminophen [From [place]] Allergy Unknown Verified 07/28/23 15:55 bacitracin Allergy ADR-Nausea Verified 07/28/23 15:55 codeine Allergy ADR-Nausea Verified 07/28/23 15:55 hydrocodone [From [place]] Allergy Unknown Verified 07/28/23 15:55 Latex, Natural Rubber Allergy Unknown Verified 07/28/23 15:55 morphine Allergy ADR-Itching Verified 07/28/23 15:55 neomycin Allergy ALGY-Rash Verified 07/28/23 15:55 [From Neosporin ([id number])] oxycodone Allergy Unknown Verified 07/28/23 15:55 polymyxin B Allergy ALGY-Rash Verified 07/28/23 15:55 [From Neosporin ([id number])] Sulfa (Sulfonamide Allergy ADR-Nausea Verified 07/28/23 15:55 Antibiotics) sulfamethoxazole Allergy Unknown Verified 07/28/23 15:55 [From Bactrim] trimethoprim [From Bactrim] Allergy Unknown Verified 07/28/23 15:55 spironolactone AdvReac Severe temporary Uncoded 07/28/23 15:55 blindness PFSH Acute PFSH: Medical History Anxiety Atrial flutter Atypical chest pain Back pain Benign hypertension Chronic back pain Chronic major depressive disorder Chronic obstructive pulmonary disease, unspecified CKD (chronic kidney disease) Coronary artery fistula Diabetic neuropathy associated with type 2 diabetes mellitus Dietary noncompliance Diverticulosis Environmental and seasonal allergies Essential tremor Fibromyalgia Fracture of distal end of fibula High risk medication use Hip pain, left IBS (irritable bowel syndrome) IgM monoclonal gammopathy of uncertain significance Inflammatory arthritis Left lumbar radiculopathy Major depression Mild cognitive impairment with memory loss Mobility impaired Near syncope Noncompliance with diabetes treatment Not consistent with diet Obesity Peripheral neuropathy Polyarthralgia Positive GIFTY (antinuclear antibody) Seronegative rheumatoid arthritis of both hands Severe obstructive sleep apnea Syncope and collapse Type 2 diabetes mellitus with diabetic chronic kidney disease Urinary disorder Vitamin D deficiency Surgical History History of section 4 times History of cholecystectomy (1993) History of hysterectomy (1997) with BSO History of left heart catheterization (2017) No significant obstructive coronary disease History of tonsillectomy Hx of colonoscopy Hx of esophagogastroduodenoscopy Family History Brother Bleeding disorder CAD (coronary artery disease) Father CAD (coronary artery disease) Chronic kidney disease (CKD) Mother CAD (coronary artery disease) Cancer Diabetes Family/Other Cancer Other CHF (congestive heart failure) Heart disease Hypertension Denies family history of Clotting disorder Dementia Suicide Anesthesia complication Lung disease Stroke Social History Smoking and tobacco status: former smoker Quit status (tobacco): has quit using tobacco Year quit tobacco: 1990 Former quit date comment: smoked 20+ years Second hand smoke exposure: No Smoking risk assessment/counseling performed?: No Alcohol intake: never Desire information about alcohol rehabilitation?: No Counseling given: No Substance/Drug Use: never Desire information about substance/drug rehabilitation?: No Counseling given: No Adopted: No Caregiver/support person: Yes Lives independently: No Household members: children and other Details: Son, sometimes grandson Housing: House Marital status: Single service: No Current occupational status: disabled Do you think of yourself as: Straight/Heterosexual Current gender identity: Female Vitals/I&O/Wt Last Vital Signs Temp 97.7 F 08/13/23 21:45 Pulse 76 08/13/23 21:50 Resp 18 08/13/23 21:45 BP 180/73 08/13/23 21:45 Pulse Ox 93 08/13/23 21:45 O2 Del Method Nasal Cannula 08/13/23 21:27 O2 Flow Rate 2 08/13/23 21:00 08/13/23 08/13/23 08/13/23 06:59 14:59 22:59 Intake Total 480 / 480 Balance 480 / 480 Weight last 48 hrs Weight 140.614 kg Physical Exam Narrative: General: No acute distress, AO x3 HEENT: PERRLA, pupils bilaterally equal and reactive, pallors not present Chest: scattered wheezing CVS: S1-S2 regular, no murmurs, no tachycardia, no gallops, no rubs Abdomen: Soft, nontender, no organomegaly, bowel sounds present Neuro: No focal deficits, no facial deformity, AO x3, power 5/5 in all limbs Data 08/14/23 04:58 08/14/23 04:58 Other Labs: CT/CT angio chest PE protcl [id number] IMPRESSION: 1. ? No pulmonary embolus. 2. ? Geographic regions hypoattenuation throughout both lungs which can be seen in the setting of air trapping secondary to small airways disease. 3. ? Small bilateral pleural effusions. 4. ? No focal consolidation. ? XR/XR chest 1V portable [id number] IMPRESSION: Left basilar opacity as described above. A&P Assessment and plan (1) Type 2 diabetes mellitus with diabetic chronic kidney disease: (2) Severe obstructive sleep apnea: (3) Pneumonia: (4) COPD exacerbation: (5) CHF exacerbation: Plan 68-year-old lady with multiple comorbidities as listed above presented to the hospital with worsening dyspnea and chest discomfort since acquiring COVID approximately 2 weeks ago. Chest x-ray shows a left basilar opacity. CT of the chest negative for PE, bilateral nonspecific GGO's. Cannot exclude possibility of pneumonia. Start ceftriaxone and azithromycin empirically. Check sputum culture MRSA, bacterial antigen panel. She also has evidence of hypervolemia with noted small bilateral pleural effusions, elevated BNP. This may be related to acute on chronic CHF exacerbation with preserved ejection fraction. She has received Lasix 60 mg IV in the emergency room, will continue 40 mg IV every 12 hours thereafter. EKG today shows sinus rhythm with right bundle branch block, troponin series 52---> 53--> 56 without significant delta Scheduled DuoNeb and budesonide inhalation given history of COPD Monitor urine output and renal function closely with iv diuresis Continue home doses of anti hypertensives, Eliquis, Imdur, metoprolol Insulin sliding scale for DM Attestations Medical Necessity Statement*: > 2 midnight stay anticipated for COPD excarebation, CHF excarebation, need for iv diuresis, iv abx for pneumonia Coding Level of Care Code Acute Code for Chg Fwd Diagnoses Type 2 diabetes mellitus with diabetic chronic kidney disease E11.22 Severe obstructive sleep apnea G47.33 Pneumonia J18.9 COPD exacerbation J44.1 CHF exacerbation I50.9
[2023-08-13 23:34] VITALS: BP 158/63; PULSE 77; RESP 18; TEMP 36.4; O2SAT 97
[2023-08-14] VITALS (15 sets, daily range): BP systolic 146–168; BP diastolic 53–77; PULSE 68–91; RESP 16–20; TEMP 36.5–37.7; O2SAT 93–97
[2023-08-14] MEDS: oxyCODONE 5 mg IR Tab/Cap PO ×2 (03:18→21:55)
[2023-08-14] MEDS: ondansetron 2 mg/ML SDV 2 mL 4 MG IVP ×3 (03:45→14:54)
[2023-08-14 05:21] LABS: Basophils # 0.1 10^3/uL (0.0-0.1); Basophils % 0.5 %; Eosinophils # 0.2 10^3/uL (0.0-0.8); Eosinophils % 2.3 %; Hematocrit 27.3 % (36-47); Lymphocytes # 1.8 10^3/uL (0.8-4.8); Lymphocytes % 17.4 %; Mean Corpuscular HGB Conc 31.9 g/dL (30-55); Mean Corpuscular Hemoglobin 28.1 pg (27-33); Mean Corpuscular Volume 88.1 fl (85-98); Mean Platelet Volume 10.5 fL (7.4-10.4); Monocytes # 0.8 10^3/uL (0.2-0.9); Neutrophils # 7.33 10^3/uL (1.8-7.7); Neutrophils % 71.1 %; Nucleated Red Blood Cells % 0 %; Platelet Count 317 10^3/cmm (157-399)
[2023-08-14 05:36] LABS: Alanine Aminotransferase 13 U/L (0-33); Albumin Level 3.2 g/dL (3.5-5.2); Alkaline Phosphatase 88 U/L (35-105); Anion Gap 15.8 (5-19); Aspartate Amino Transferase 19 U/L (0-32); Blood Urea Nitrogen 32 mg/dL (8-23); Calcium 8.9 mg/dL (8.5-10.5); Carbon Dioxide 28 mmol/L (22-29); Chloride 99 mmol/L (98-107); Globulin 3.6 g/dL (1.3-4.6); Glomerular Filtration Rate 26.4 mL/min (90-130); Glucose 91 mg/dL (65-115); Magnesium 2.4 mg/dL (1.7-2.3); Osmolality Calculated 292 mOsm/kg (285-295); Potassium 4.8 mmol/L (3.5-5.1); Sodium 138 mmol/L (136-145); Total Bilirubin 0.2 mg/dL (0.15-1.2); Total Protein 6.8 g/dL (6.6-8.7)
[2023-08-14 06:47] LABS: Glucose Point of Care 93 mg/dL (70-110)
--- OUTSIDE RECORDS SUMMARY | 2023-08-14 07:06 | XMS_ITS | Continuity of Care Document ---
Author Name Unknown Organization [facility] Address [address] [place] [id number] Encounter [id number] [id number] Date(s): 07/27/23 - 07/27/23 [facility] [address] [place] [address]- Discharge Disposition: Home or Self Care Attending Physician: YASSINE ROGERS WATER CHASER Assessment and Plan Future Appointments Diagnostic Tests Pending * Celiac Disease Comprehensive Panel (CQ) 07/27/23 Future Scheduled Tests Radiology* NM Gastric Emptying Study 08/26/23 Results Laboratory List Name Date .Differential Automated 07/27/23 Amylase Blood 07/27/23 C Reactive Protein 07/27/23 Complete Blood Count w/Diff Auto 07/27/23 Comprehensive Metabolic Profile 07/27/23 Erythrocyte Sedimentation Rate Manual 07/27/23 Lipase 07/27/23 Prothrombin Time w/INR 07/27/23 TSH 07/27/23 Thyroxine 4 Free 07/27/23 Most recent to oldest [Reference Range]: 1 eGFR [>=90 mL/min/1.73m??] 30 mL/min/1.7 3m?? *LOW* (07/27/23 4:36 PM) nRBC% Auto 0 % *NA* (07/27/23 4:36 PM) nRBC# Auto 0 /100 WBC *NA* (07/27/23 4:36 PM) RBC [3.90-5.19] 4.04 (07/27/23 4:36 PM) PT [9.6-12.4 second(s)] 11.4 second(s) (07/27/23 4:36 PM) INR 1.0 *NA* (07/27/23 4:36 PM) BUN [8-17 mg/dL] 54 mg/dL *HI* (07/27/23 4:36 PM) Albumin [3.6-4.9 g/dL] 3.1 g/dL *LOW* (07/27/23 4:36 PM) Alkaline Phosphatase [51-135 U/L] 77 U/L (07/27/23 4:36 PM) ALT [31-64 U/L] 22 U/L *LOW* (07/27/23 4:36 PM) Anion Gap [3.1-10.9 mmol/L] 9.0 mmol/L (07/27/23 4:36 PM) AST [16-36 U/L] 19 U/L (07/27/23 4:36 PM) Basophils# Auto [1.0-1.0] 0.1 *LOW* (07/27/23 4:36 PM) Basophils% Auto [1.0-4.0 %] 0.7 % *LOW* (07/27/23 4:36 PM) Bili Total [0.1-0.9 mg/dL] 0.2 mg/dL (07/27/23 4:36 PM) BUN/Crea Ratio [6.01-19.99] 30.00 *HI* (07/27/23 4:36 PM) Calcium [8.6-10.0 mg/dL] 9.9 mg/dL (07/27/23 4:36 PM) Creatinine [0.6-1.3 mg/dL] 1.8 mg/dL *HI* (07/27/23 4:36 PM) Eos# Auto [2.0-2.0] 0.3 *LOW* (07/27/23 4:36 PM) Eosinophils% Auto [1.0-2.0 %] 3.9 % *HI* (07/27/23 4:36 PM) Globulin 4 *NA* (07/27/23 4:36 PM) HCT [38.1-46.9 %] 34.8 % *LOW* (07/27/23 4:36 PM) Hgb [11.8-15.6 g/dL] 11.5 g/dL *LOW* (07/27/23 4:36 PM) Potassium [3.6-5.2 mEq/L] 4.1 mEq/L (07/27/23 4:36 PM) Lymphocytes# Auto [2.0-4.0] 0.4 *LOW* (07/27/23 4:36 PM) Lymphocytes% Auto [22.0-50.0 %] 5.9 % *LOW* (07/27/23 4:36 PM) MCH [27.1-32.9 pg] 28.4 pg (07/27/23 4:36 PM) MCHC [32.1-35.9] 33.0 (07/27/23 4:36 PM) MCV [81.1-97.9 fL] 86.0 fL (07/27/23 4:36 PM) Monocytes# Auto [1.0-1.0] 0.6 *LOW* (07/27/23 4:36 PM) Monocytes% Auto [3.0-8.0 %] 8.0 % (07/27/23 4:36 PM) Neutrophils# Auto [3.0-7.0] 6.2 (07/27/23 4:36 PM) Neutrophils% Auto [38.0-69.0 %] 81.5 % *HI* (07/27/23 4:36 PM) Plt Cnt [151-449 K/uL] 214 K/uL (07/27/23 4:36 PM) Prot Total [6.5-8.2 g/dL] 7.3 g/dL (07/27/23 4:36 PM) RDW [11.6-14.4 %] 13.7 % (07/27/23 4:36 PM) WBC [4.6-10.9 K/uL] 7.6 K/uL (07/27/23 4:36 PM) Sodium [136-149 mmol/L] 139 mmol/L (07/27/23 4:36 PM) Albumin/Globulin Ratio [1.01-2.49] 0.74 *LOW* (07/27/23 4:36 PM) Ca Corrected [8.6-10.0 mg/dL] 10.6 mg/dL *HI* (07/27/23 4:36 PM) Glucose [71-109 mg/dL] 120 mg/dL *HI* (07/27/23 4:36 PM) MPV [7.5-10.3] 9.2 (07/27/23 4:36 PM) Chloride [96-109 mmol/L] 103 mmol/L (07/27/23 4:36 PM) Sed Rate Manual [1-19] 45 *HI* (07/27/23 4:36 PM) T4 Free [0.79-2.39 ng/dL] 0.93 ng/dL (07/27/23 4:36 PM) TSH [0.35-3.99 uIU/mL] 1.04 uIU/mL (07/27/23 4:36 PM) C Reactive Protein [0.00-0.90 mg/dL] 0.6 9 mg/dL (07/27/23 4:36 PM) Amylase [26-114 U/L] 56 U/L (07/27/23 4:36 PM) Lipase [17-76 U/L] 97 U/L *HI* (07/27/23 4:36 PM) Carbon Dioxide [22-33 mmol/L] 27 mmol/L (07/27/23 4:36 PM) Osmol Calc [281-300 mOsm/kg] 293 mOsm/kg (07/27/23 4:36 PM) Social History Social History Type Response Sex Female
[2023-08-14] MEDS: budesonide 0.5 mg/2 mL Neb INHALATION ×2 (08:11→19:49)
[2023-08-14] MEDS: ipratropium-albuterol 3 mL Neb INHALATION ×3 (08:11→19:49)
[2023-08-14] MEDS: cefTRIAXone 1,000 MG in sodium chloride 0.9% (plus) 50 ML 100 MG IV (08:18)
[2023-08-14] MEDS: hyDRALAzine 50 mg Tablet PO ×3 (08:19→20:48)
[2023-08-14] MEDS: TORSEmide 20 mg Tablet 100 MG PO (08:19)
[2023-08-14] MEDS: fluoxetine 20 mg Capsule PO (08:19)
[2023-08-14] MEDS: pantoprazole DR 40 mg Tablet PO (08:20)
[2023-08-14] MEDS: metoprolol tartrate 50 mg Tablet 25 MG PO ×2 (08:20→17:40)
[2023-08-14] MEDS: hydroxychloroquine 200 mg Tablet PO ×2 (08:20→17:40)
[2023-08-14] MEDS: isosorbide mononitrate ER 60 mg Tablet PO (08:20)
[2023-08-14] MEDS: apixaban 5 mg Tablet PO ×2 (08:22→20:48)
[2023-08-14] MEDS: FUROsemide 10 mg/mL SDV 4mL 40 MG IVP ×2 (08:54→20:55)
[2023-08-14] MEDS: azithromycin 500 MG in sodium chloride 0.9% 250 ML 250 MG PO (10:23)
[2023-08-14 11:02] LABS: Glucose Point of Care 157 mg/dL (70-110)
[2023-08-14] MEDS: insulin lispro 100 unit/1 mL SUBCUT (12:23)
--- NOTE | 2023-08-14 13:00 | CTR_ITS ---
PROCEDURE INFORMATION: Exam: CT Abdomen And Pelvis Without Contrast Exam date and time: 08/14/2023 1:54 PM Age: 68 years old Clinical indication: Nausea and vomiting; Prior surgery; Surgery date: 6+ months; Surgery type: Hyst choley TECHNIQUE: Imaging protocol: Computed tomography of the abdomen and pelvis without contrast. Radiation optimization: All CT scans at this facility use at least one of these dose optimization techniques: automated exposure control; mA and/or kV adjustment per patient size (includes targeted exams where dose is matched to clinical indication); or iterative reconstruction. REPORTING DATA: Count of CT and Cardiac NM exams in prior 12 months: This patient has received [address] and 0 known cardiac nuclear medicine studies in the 12 months prior to the current study. COMPARISON: CT abdomen pelvis w con* [id number] 04/14/2022 6:51 AM RADIATION DOSE METRICS: Total DLP (mGy-cm): 1944.63 FINDINGS: Lungs: Minimal bibasilar infiltrate. Pleural spaces: Small bilateral pleural effusions. Liver: Normal. No mass. Gallbladder and bile ducts: Previous cholecystectomy. Pancreas: Normal. No ductal dilation. Spleen: Normal. No splenomegaly. Adrenal glands: Normal. No mass. Kidneys and ureters: Bilateral perinephric stranding. No pelvicaliectasis. No stones. Stomach and bowel: Diverticulosis without diverticulitis. Appendix: No evidence of appendicitis. Intraperitoneal space: Unremarkable. No free air. No significant fluid collection. Vasculature: Unremarkable. No abdominal aortic aneurysm. Lymph nodes: Unremarkable. No enlarged lymph nodes. Urinary bladder: Unremarkable as visualized. Reproductive: Previous hysterectomy. Bones/joints: Degenerative changes in the lumbar spine with mild anterolisthesis L3-L4 and L4-L5. Mild stenosis at these 2 levels. Soft tissues: Mild body wall edema seen in the left flank. CT/CT abdomen pelvis wo con [id number] IMPRESSION: No acute findings to account for abdominal pain.
[2023-08-14] MEDS: pantoprazole 40 mg SDV IVP (13:16)
[2023-08-14] MEDS: metoclopramide 5 mg/mL SDV 2 mL IVP ×2 (13:17→20:56)
[2023-08-14 14:20] LABS: H. Pylori IgG Antibody Negative (Negative)
--- NOTE | 2023-08-14 15:12 | PM.PN ---
Subjective Subjective: Admitted overnight. H&P and labs appreciated. Examination patient looks in mild discomfort because of nausea. She states she is mostly in the hospital because of nausea and vomiting along with difficulty in breathing which has been getting worse since recent COVID. She states she has an appointment with a carding machine operator in [place] for endoscopy who are suspecting gastroparesis. She is not able to tolerate regular diet for now. Blood work appreciated for a stable CBC as compared to yesterday, hemoglobin of 8.7, creatinine stable at 1.9 though mild improvement in BUN to 32, improvement in hyponatremia. Vitals/I&O/Wt Last Vital Signs Temp 99.8 F H 08/14/23 10:28 Pulse 72 08/14/23 14:42 Resp 18 08/14/23 14:00 BP 146/72 08/14/23 10:28 Pulse Ox 94 08/14/23 14:00 O2 Del Method Nasal Cannula 08/14/23 14:00 O2 Flow Rate 2 08/14/23 14:00 08/14/23 08/14/23 08/14/23 06:59 14:59 22:59 Intake Total 1260 / 1260 Output Total 450 / 450 Balance -450 / 30 1260 / 1260 Weight last 48 hrs Weight 140.614 kg Physical Exam Narrative: General: Morbidly obese, in mild distress for nausea, AOx3, pleasant HEENT: PERRLA, pupils bilaterally equal and reactive, pallors not present Chest: scattered wheezing with bronchial breath sounds all over lung shaikh CVS: S1-S2 regular, no murmurs, no tachycardia, no gallops, no rubs Abdomen: Soft, nontender, no organomegaly, bowel sounds present but sluggish, obese Neuro: No focal deficits, no facial deformity, AO x3, power 5/5 in all limbs Data 08/14/23 04:58 08/14/23 04:58 A&P Assessment and plan (1) Hypoxia: (2) CHF exacerbation: (3) Pneumonia: (4) COPD exacerbation: (5) ROSEMARIE (acute kidney injury): (6) CKD (chronic kidney disease) stage 3, GFR 30-59 ml/min: (7) Type 2 diabetes mellitus with diabetic chronic kidney disease: (8) Severe obstructive sleep apnea: (9) Diabetic gastroparesis: Plan 68-year-old lady with multiple comorbidities as listed above presented to the hospital with worsening dyspnea and chest discomfort since acquiring COVID approximately 2 weeks ago. Patient was found to be in mild congestive heart failure with complaints of nausea. Hypoxia: Most likely in setting of congestive heart failure in setting of CKD along with superimposed bacterial infection to recent COVID-19. Wean oxygen supplementation keeping saturation over 90%. Bacterial panel negative, recent MRSA swab negative. Continue with empiric antibiotics with IV ceftriaxone and azithromycin. DuoNebs every 6 hour, budesonide twice daily. Continue with IV Lasix 40 mg twice daily. Fluid restriction up to 1500 cc. Strict input per charting, daily weights. Nausea/vomiting: Most likely in setting of diabetic gastroparesis: Being worked up as an outpatient. Start on Reglan 5 mg 3 times daily, Zofran 8 4 mg every 6 hours as needed. Protonix [address] abdomen pelvis to rule out any acute abnormality. Stricter blood sugar control. ROSEMARIE on baseline CKD: Most likely in setting of congestive heart failure. Continue with dialysis as above. Monitor daily. Medical reconstruction done for nephrotoxic drugs. Hypertension: Goal blood pressure less than 140/90 MAG. Continue with home dose of hydralazine, Imdur, metoprolol. Uptitrate as for goal blood pressures. Continue other chronic medications. Full code Switch to clear liquid carb consistent diet Protonix for PUD prophylaxis Eliquis will suffice as DVT prophylaxis. Attestations Medical Necessity Statement*: Requires further hospitalization for management of hypoxia in setting of congestive heart failure, superimposed bacterial infection due to recent COVID-19, nausea and vomiting in setting of gastroparesis, ROSEMARIE on CKD Diagnoses Hypoxia R09.02 CHF exacerbation I50.9 Pneumonia J18.9 COPD exacerbation J44.1 ROSEMARIE (acute kidney injury) N17.9 CKD (chronic kidney disease) stage 3, GFR 30-59 ml/min N18.30 Type 2 diabetes mellitus with diabetic chronic kidney disease E11.22 Severe obstructive sleep apnea G47.33 Diabetic gastroparesis E11.43; K31.84
[2023-08-14] MEDS: benzonatate 100 mg Capsule PO (15:18)
[2023-08-14 16:53] LABS: Glucose Point of Care 133 mg/dL (70-110)
[2023-08-14 21:01] LABS: Glucose Point of Care 104 mg/dL (70-110)
[2023-08-15] VITALS (14 sets, daily range): BP systolic 130–173; BP diastolic 61–77; PULSE 66–71; RESP 16–19; TEMP 36.4–36.9; O2SAT 2–99
[2023-08-15] MEDS: pantoprazole 40 mg SDV IVP ×2 (00:29→14:04)
[2023-08-15] MEDS: oxyCODONE 5 mg IR Tab/Cap PO ×3 (05:23→22:43)
[2023-08-15] MEDS: metoclopramide 5 mg/mL SDV 2 mL IVP ×4 (05:23→22:36)
[2023-08-15] MEDS: azithromycin 500 MG in sodium chloride 0.9% 250 ML 250 MG PO (06:13)
[2023-08-15 06:52] LABS: Basophils # 0.1 10^3/uL (0.0-0.1); Basophils % 0.6 %; Eosinophils # 0.2 10^3/uL (0.0-0.8); Eosinophils % 1.9 %; Hematocrit 26.6 % (36-47); Lymphocytes # 1.2 10^3/uL (0.8-4.8); Mean Corpuscular HGB Conc 32.3 g/dL (30-55); Mean Corpuscular Hemoglobin 28.8 pg (27-33); Mean Platelet Volume 10.1 fL (7.4-10.4); Monocytes # 0.8 10^3/uL (0.2-0.9); Monocytes % 8.1 %; Neutrophils # 7.62 10^3/uL (1.8-7.7); Neutrophils % 76.2 %; Nucleated Red Blood Cells % 0 %; Platelet Count 322 10^3/cmm (157-399); Red Blood Count 2.99 10^6/uL (3.85-5.65); Red Cell Distribution Width 13.1 % (12.1-15.1)
[2023-08-15 07:13] LABS: Alanine Aminotransferase 14 U/L (0-33); Albumin Level 3.3 g/dL (3.5-5.2); Alkaline Phosphatase 83 U/L (35-105); Anion Gap 15.1 (5-19); Aspartate Amino Transferase 16 U/L (0-32); Blood Urea Nitrogen 35 mg/dL (8-23); Calcium 8.6 mg/dL (8.5-10.5); Carbon Dioxide 28 mmol/L (22-29); Chloride 98 mmol/L (98-107); Globulin 2.8 g/dL (1.3-4.6); Glomerular Filtration Rate 16.9 mL/min (90-130); Glucose 73 mg/dL (65-115); Osmolality Calculated 289 mOsm/kg (285-295); Potassium 5.1 mmol/L (3.5-5.1); Sodium 136 mmol/L (136-145); Total Bilirubin 0.3 mg/dL (0.15-1.2); Total Protein 6.1 g/dL (6.6-8.7)
[2023-08-15] MEDS: budesonide 0.5 mg/2 mL Neb INHALATION ×2 (07:48→20:02)
[2023-08-15] MEDS: ipratropium-albuterol 3 mL Neb INHALATION ×3 (07:48→20:02)
[2023-08-15 08:09] LABS: Glucose Point of Care 105 mg/dL (70-110)
[2023-08-15] MEDS: isosorbide mononitrate ER 60 mg Tablet PO (08:21)
[2023-08-15] MEDS: FUROsemide 10 mg/mL SDV 4mL 40 MG IVP (08:21)
[2023-08-15] MEDS: hyDRALAzine 50 mg Tablet PO ×2 (08:21→21:15)
[2023-08-15] MEDS: cefTRIAXone 1,000 MG in sodium chloride 0.9% (plus) 50 ML 100 MG IV (08:22)
[2023-08-15] MEDS: hydroxychloroquine 200 mg Tablet PO (09:27)
[2023-08-15] MEDS: fluoxetine 20 mg Capsule PO (09:27)
[2023-08-15] MEDS: metoprolol tartrate 50 mg Tablet 25 MG PO ×2 (09:27→17:39)
--- NOTE | 2023-08-15 10:51 | P.PN_ITS ---
Subjective Subjective: 68-year-old lady with multiple comorbidities as listed above presented to the hospital with worsening dyspnea and chest discomfort since acquiring COVID approximately 2 weeks ago.? Patient was found to be in mild congestive heart failure with complaints of nausea. 08/13/2023: Patient suspected to have diabetic gastroparesis and patient was started on Reglan 5 mg 3 times daily Zofran 8 mg every 6 hours as needed and Protonix 40 mg twice daily. CTA showed no pulmonary embolus, suspected small airway disease, no consolidations suggestive of pneumonia, small bilateral pleural effusions. Patient was treated for a CHF exacerbation as well as pneumonitis with fluid restriction IV diuresis with Lasix 40 mg every 12 and Ceftin and Zithromax for pneumonitis. 08/14/2023: CT abdomen pelvis obtained. No acute findings to explain nausea vomiting abdominal pain Patient with multiple complaints today. She does report the reason for visit is excessive nausea and vomiting and abdominal pain. She vomited so extensively she said that she began to have some chest discomfort. She describes throat pain. Complaints are restless leg syndrome diabetic peripheral neuropathy scoliosis causing pain and difficulty with legs. She states her cough is very troublesome and nothing is helping. And lastly she asked about her CT of the abdomen. Vitals/I&O/Wt Last Vital Signs Temp 97.5 F L 08/15/23 08:00 Pulse 66 08/15/23 08:00 Resp 16 08/15/23 08:00 BP 164/72 08/15/23 08:00 Pulse Ox 98 08/15/23 08:00 O2 Del Method Nasal Cannula 08/15/23 08:00 O2 Flow Rate 2 08/15/23 07:49 08/14/23 08/15/23 08/15/23 22:59 06:59 14:59 Intake Total 120 / 1380 540 / 540 Output Total 400 / 400 Balance 120 / 1380 -400 / 980 540 / 540 Weight last 48 hrs Weight 140.614 kg Physical Exam Narrative: Morbidly obese white female in mild distress due to multiple complaints. Neurologic: Alert and oriented x3 nonfocal exam Heart: Distant heart sounds regular rate and rhythm no loud murmur click gallop or rub lungs: Clear to auscultation anteriorly Abdomen: Morbidly obese soft mild diffuse tenderness nondistended positive bowel sounds Extremities. No pitting edema Skin: Pale warm and dry Urinary Catheter Management: Juárez Latex Free: Cath Placed During This Visit: yes Reason for Continuing Indwelling Catheter: Acute Urinary Retention or Obstruction Urinary Catheter Date of Insertion: 08/14/23 Urinary Catheter Time of Insertion: 23:40 Data 08/15/23 06:24 08/15/23 06:24 Micro: Microbiology 08/14/23 01:38 Legionella Urinary Antigen - Final Urine,Voided Bacterial Antigens - Final CT Abd/Pel: Radiologist's impression: IMPRESSION: No acute findings to account for abdominal pain. CT Chest: Radiologist's impression: IMPRESSION: 1. ? No pulmonary embolus. 2. ? Geographic regions hypoattenuation throughout both lungs which can be seen in the setting of air trapping secondary to small airways disease. 3. ? Small bilateral pleural effusions. 4. ? No focal consolidation. A&P Assessment and plan (1) Diabetic gastroparesis: Increased Reglan to every 6 hours but remained at 5 mg due to acute on chronic renal disease. (2) Hypoxia: Resolved. Patient on home oxygen level of 2 L/min (3) COPD exacerbation: I do believe based on CT of chest that patient is experiencing a COPD exacerbation although she has returned to her baseline oxygen status. The reasoning for starting Solu-Medrol is for the cough for suppression however this will also treat COPD. (4) Type 2 diabetes mellitus with diabetic chronic kidney disease: Most recent hemoglobin A1c is 7.7 on May 25, 2023. Earlier this year she was at 8.8. Will attempt better control during acute illness. (5) Situational anxiety: It appears patient takes fluoxetine 60 mg total per day this will be continued. (6) Fibromyalgia: (7) Benign hypertension: Blood pressures are running mildly elevated will monitor. (8) Noncompliance with diabetes treatment: (9) IBS (irritable bowel syndrome): Patient on dicyclomine at at home. On scheduled basis. (10) Intractable nausea and vomiting: As above (11) CKD (chronic kidney disease) stage 3, GFR 30-59 ml/min: Patient's creatinine worse. Patient likely dehydrated due to all her vomiting.. Lasix dose and fluid restriction. We will also need to hold Entresto. (12) Chronic diastolic heart failure: Patient is on diuretics at home however this will need to be stopped as above also on metoprolol and Entresto for this diagnosis. Attestations Medical Necessity Statement*: Requires further hospitalization for management of hypoxia in setting of congestive heart failure, superimposed bacterial infection due to recent COVID- 19, nausea and vomiting in setting of gastroparesis, ROSEMARIE on CKD Coding Level of Care Code Acute Code for Chg Fwd Diagnoses Diabetic gastroparesis E11.43; K31.84 Hypoxia R09.02 COPD exacerbation J44.1 Type 2 diabetes mellitus with diabetic chronic kidney disease E11.22 Situational anxiety F41.8 Fibromyalgia M79.7 Benign hypertension I10 Noncompliance with diabetes treatment Z91.19 IBS (irritable bowel syndrome) K58.9 Intractable nausea and vomiting R11.2 CKD (chronic kidney disease) stage 3, GFR 30-59 ml/min N18.30 Chronic diastolic heart failure I50.32
[2023-08-15 10:57] LABS: Glucose Point of Care 112 mg/dL (70-110)
[2023-08-15] MEDS: apixaban 5 mg Tablet PO ×2 (10:59→21:14)
[2023-08-15] MEDS: methylPREDNISolone sod succ 60 MG in water for injection-sterile 0.96 ML 11.52 MG IVP ×2 (11:03→22:35)
[2023-08-15] MEDS: dicyclomine 20 mg Tablet PO (14:04)
[2023-08-15 15:55] LABS: Methicillin-Resist S.aureu PCR NOT DETECTED (NOT DETECTED)
[2023-08-15 16:50] LABS: Glucose Point of Care 191 mg/dL (70-110)
[2023-08-15] MEDS: insulin lispro 100 unit/1 mL SUBCUT ×2 (17:38→21:15)
[2023-08-15] MEDS: magnesium oxide 400 mg tablet PO (17:39)
[2023-08-15 21:06] LABS: Glucose Point of Care 287 mg/dL (70-110)
[2023-08-16] VITALS (15 sets, daily range): BP systolic 156–183; BP diastolic 73–102; PULSE 67–80; RESP 16–20; TEMP 36.2–36.6; O2SAT 2–99
[2023-08-16] MEDS: ipratropium-albuterol 3 mL Neb INHALATION ×4 (01:23→19:54)
[2023-08-16] MEDS: LORazepam 2 mg/mL INJ 1 mL 0.5 MG IVP ×2 (01:57→03:37)
[2023-08-16] MEDS: pantoprazole 40 mg SDV IVP (02:09)
[2023-08-16] MEDS: oxyCODONE 5 mg IR Tab/Cap PO ×2 (04:48→19:41)
[2023-08-16] MEDS: metoclopramide 5 mg/mL SDV 2 mL IVP ×4 (04:55→22:53)
[2023-08-16 05:56] LABS: Anion Gap 18.6 (5-19); Blood Urea Nitrogen 44 mg/dL (8-23); Calcium 8.2 mg/dL (8.5-10.5); Carbon Dioxide 23 mmol/L (22-29); Chloride 91 mmol/L (98-107); Glomerular Filtration Rate 13.1 mL/min (90-130); Glucose 330 mg/dL (65-115); Magnesium 2.3 mg/dL (1.7-2.3); Osmolality Calculated 288 mOsm/kg (285-295); Potassium 5.6 mmol/L (3.5-5.1); Sodium 127 mmol/L (136-145)
[2023-08-16] MEDS: azithromycin 500 MG in sodium chloride 0.9% 250 ML 250 MG PO (06:43)
[2023-08-16 06:45] LABS: Glucose Point of Care 341 mg/dL (70-110)
[2023-08-16] MEDS: budesonide 0.5 mg/2 mL Neb INHALATION ×2 (07:22→19:54)
--- NOTE | 2023-08-16 08:43 | US_ITS ---
WS: [id number] RENAL ULTRASOUND HISTORY: acute on chronic renal failure COMPARISON: 07/04/2020 TECHNIQUE: 2-D and color Doppler imaging of the kidney submitted. Right kidney: 11.8 cm x 6.8 cm x 6.4 cm. Cortex: 1.5 cm Normal echogenicity with no hydronephrosis or mass. Left kidney: 10.6 cm x 6.3 cm x 5.6 cm. Cortex: 1.7 cm Normal echogenicity with no hydronephrosis or mass. Aorta: Very poorly visualized due to body habitus and bowel gas. Urinary Bladder: Nondistended. Juárez catheter in place. IMPRESSION: 1. No significant renal atrophy and no obstruction. 2. Similar appearance of the kidneys as compared to 07/04/2020.
[2023-08-16] MEDS: apixaban 5 mg Tablet PO ×2 (09:57→20:14)
[2023-08-16] MEDS: metoprolol tartrate 50 mg Tablet 25 MG PO ×2 (09:57→18:28)
[2023-08-16] MEDS: isosorbide mononitrate ER 60 mg Tablet PO (09:57)
[2023-08-16] MEDS: fluoxetine 20 mg Capsule PO (09:57)
[2023-08-16] MEDS: hyDRALAzine 50 mg Tablet PO ×3 (09:57→20:13)
[2023-08-16] MEDS: magnesium oxide 400 mg tablet PO (09:57)
[2023-08-16] MEDS: dicyclomine 20 mg Tablet PO (09:57)
[2023-08-16] MEDS: hydroxychloroquine 200 mg Tablet PO ×2 (09:58→18:28)
[2023-08-16] MEDS: insulin lispro 100 unit/1 mL SUBCUT ×4 (09:58→20:21)
[2023-08-16] MEDS: cefTRIAXone 1,000 MG in sodium chloride 0.9% (plus) 50 ML 100 MG IV (09:58)
[2023-08-16 11:57] LABS: Glucose Point of Care 284 mg/dL (70-110)
[2023-08-16] MEDS: methylPREDNISolone sod succ 60 MG in water for injection-sterile 0.96 ML 11.52 MG IVP ×2 (12:12→22:49)
--- NOTE | 2023-08-16 13:26 | PC.SOCIAL ---
Pg 2 IMM Explained to pt Pg 2 IMM. No questions voiced. Provided pt a copy. Initialed, dated, & timed a copy & placed in chart.
[2023-08-16] MEDS: albumin 25 G/100 ML BAG 60 G IV (14:20)
--- NOTE | 2023-08-16 15:56 | P.PN_ITS ---
Subjective Subjective: 68-year-old lady with multiple comorbidities as listed above presented to the hospital with worsening dyspnea and chest discomfort since acquiring COVID approximately 2 weeks ago.? Patient was found to be in mild congestive heart failure with complaints of nausea. 08/13/2023: Patient suspected to have diabetic gastroparesis and patient was started on Reglan 5 mg 3 times daily Zofran 8 mg every 6 hours as needed and Protonix 40 mg twice daily. CTA showed no pulmonary embolus, suspected small airway disease, no consolidations suggestive of pneumonia, small bilateral pleural effusions. Patient was treated for a CHF exacerbation as well as pneumonitis with fluid restriction IV diuresis with Lasix 40 mg every 12 and Ceftin and Zithromax for pneumonitis. 08/14/2023: CT abdomen pelvis obtained. No acute findings to explain nausea vomiting abdominal pain 08/15/2023: started steroids for cough, COPD exac in hopes of also treating n/v 08/16/2023: No further vomiting. Increase diet. worsening renal function. work up and consult renal. States cough is better, however still complaining about legs and lack of sleep. Vitals/I&O/Wt Last Vital Signs Temp 97.9 F 08/16/23 12:00 Pulse 75 08/16/23 14:00 Resp 16 08/16/23 14:00 BP 179/73 08/16/23 12:00 Pulse Ox 96 08/16/23 14:00 O2 Del Method Nasal Cannula 08/16/23 14:00 O2 Flow Rate 2 08/16/23 14:00 08/16/23 08/16/23 08/16/23 06:59 14:59 22:59 Intake Total 780.96 / 780.96 Output Total 400 / 400 Balance -400 / 1101.92 780.96 / 780.96 Physical Exam Narrative: Morbidly obese white female in mild distress due to multiple complaints. Neurologic: Alert and oriented x3 nonfocal exam Heart: Distant heart sounds regular rate and rhythm no loud murmur click gallop or rub lungs: Clear to auscultation anteriorly Abdomen: Morbidly obese soft mild diffuse tenderness nondistended positive bowel sounds Extremities. No pitting edema Skin: Pale warm and dry Urinary Catheter Management: Bustillo Latex Free: Cath Placed During This Visit: yes Reason for Continuing Indwelling Catheter: Acute Urinary Retention or Obstruction Urinary Catheter Date of Insertion: 08/14/23 Urinary Catheter Time of Insertion: 23:40 Data 08/15/23 06:24 08/16/23 05:16 A&P Assessment and plan (1) Diabetic gastroparesis: Reglan 5 mg every 6 hours (2) Hypoxia: Resolved. Patient on home oxygen level of 2 L/min (3) COPD exacerbation: I do believe based on CT of chest that patient is experiencing a COPD exacerbation although she has returned to her baseline oxygen status. The reasoning for starting Solu-Medrol is for the cough for suppression however this will also treat COPD. (4) Type 2 diabetes mellitus with diabetic chronic kidney disease: Most recent hemoglobin A1c is 7.7 on May 25, 2023. Earlier this year she was at 8.8. Will attempt better control during acute illness. (5) Situational anxiety: It appears patient takes fluoxetine 60 mg total per day this will be continued. (6) Fibromyalgia: (7) Benign hypertension: Blood pressures are elevated likely due to acute on chronic renal disease. Will allow permissive hypertension to allow good blood flow through kidneys (8) Noncompliance with diabetes treatment: (9) IBS (irritable bowel syndrome): Patient on dicyclomine at at home. On scheduled basis. (10) Intractable nausea and vomiting: As above (11) CKD (chronic kidney disease) stage 3, GFR 30-59 ml/min: Patient's creatinine worsen again today. Discussed with nephrology. Multiple etiologies. Patient also had contrast. Will add 1 L of fluid since pt not in CHF exac and albumin due to low protein. And follow sCr trend. Appreicate nephrology assistance. Would prefer to keep bustillo while sCr rising. (12) Chronic diastolic heart failure: Patient is on diuretics at home however this will need to be stopped as above also on metoprolol and Entresto for this diagnosis. Attestations Medical Necessity Statement*: Requires further hospitalization for management of hypoxia with recent COVID- 19, nausea and vomiting in setting of gastroparesis, ROSEMARIE on CKD Coding Level of Care Code Acute Code for g Fwd Diagnoses Diabetic gastroparesis E11.43; K31.84 Hypoxia R09.02 COPD exacerbation J44.1 Type 2 diabetes mellitus with diabetic chronic kidney disease E11.22 Situational anxiety F41.8 Fibromyalgia M79.7 Benign hypertension I10 Noncompliance with diabetes treatment Z91.19 IBS (irritable bowel syndrome) K58.9 Intractable nausea and vomiting R11.2 CKD (chronic kidney disease) stage 3, GFR 30-59 ml/min N18.30 Chronic diastolic heart failure I50.32
[2023-08-16] MEDS: sodium chloride 0.9% 1,000 ML 100 ML IV (15:57)
--- NOTE | 2023-08-16 17:02 | P.CONIM_ITS ---
Providers/Reason For Consult Consulting Physician/Specialty*: [facility]/Nephrology Reason for Consult*: Acute on CKD Attending Physician: Elroy Nava DO Primary Care Provider: PARAG Mensah History of Present Illness History of Present Illness Jennifer Novak is a 68 year old female Patient is a 68-year-old female with past medical history of hypertension, dyslipidemia, type 2 diabetes, chronic kidney disease with a baseline creatinine in the mid 1 range, atrial flutter, COPD, history of MGUS, who reports that she had COVID 2 weeks ago, and since then patient is having some nausea and vomiting and decreased p.o. intake. Also received some antibiotics during that time. She is admitted to the hospital on 08/13/2023 due to worsening shortness of breath. On presentation she underwent CT angiogram of the chest with IV contrast that showed no evidence of PE. Creatinine on presentation was 1.9 worsened to 3.5 currently. Patient was taking valsartan and torsemide at home. Review of prior records show that patient has nephrotic range proteinuria. Review of Systems Narrative: other ROS negative Medications/Allergies Home Medications Medication Instructions Recorded Confirmed Last Taken Type cholecalciferol (vitamin D3) 125 125 mcg PO DAILY 05/14/21 08/13/23 08/13/23 0 9:00 History mcg (5,000 unit) tablet (Vitamin D3) acetaminophen 325 mg tablet 325 - 650 mg PO Q6H PRN Pain 12/13/21 08/13/23 Unknown History wheelchair cushions #1 ea 01/12/22 08/14/23 Unknown Rx clindamycin phosphate 1 % lotion See Rx Instructions .Route 02/03/22 08/13/23 05/31/22 Rx .COMPLEX #60 mL Alternating pressure mattress and #1 ea 02/12/22 08/14/23 Unknown Rx pressure pump cyanocobalamin (vitamin B-12) 50 50 mcg PO DAILY ##0 04/12/22 08/13/23 08/13/23 09:00 History mcg tablet (Vitamin B-12) metoprolol tartrate 50 mg tablet 25 mg PO BID 05/31/22 08/13/23 08/13/23 09:00 History potassium chloride 20 mEq 30 meq PO DAILY #135 tabs 07/21/22 08/13/23 08/11/23 09:00 Rx tablet,extended release torsemide 100 mg tablet 100 mg PO DAILY #90 tabs 07/21/22 08/13/23 08/13/23 09:00 Rx nitroglycerin 0.4 mg sublingual 0.4 mg sublingual Q5M PRN Chest 09/20/22 08/13/23 Unknown Rx tablet (Nitrostat) Pain #50 tabs blood-glucose meter (OneTouch #1 ea 09/29/22 08/14/23 Unknown Rx Ultra2 Meter kit) pen needle, diabetic 31 gauge x #200 ea 01/11/23 08/14/23 Unknown Rx 5/16 (TechLITE Pen Needle) hydralazine 50 mg tablet 50 mg PO TID #90 tabs 01/27/23 08/13/23 08/13/23 09:00 Rx Motorized lift chair #1 ea 02/25/23 08/14/23 Unknown Rx diabetic shoes with inserts #1 ea 02/25/23 08/14/23 Unknown Rx blood sugar diagnostic (OneTouch #100 ea 03/02/23 08/14/23 Unknown Rx Ultra Test strips) isosorbide mononitrate 60 mg 60 mg PO DAILY #90 tabs 04/13/23 08/13/23 08/13/23 09:00 Rx tablet,extended release 24 hr hydroxychloroquine 200 mg tablet 200 mg PO BID #180 tabs 05/02/23 08/13/23 08/13/23 09:00 Rx leflunomide 20 mg tablet 20 mg PO DAILY #30 tabs 05/02/23 08/14/23 Unknown Rx apixaban 5 mg tablet (Eliquis) 5 mg PO BID@0900,2100 #60 tabs 05/10/23 08/13/23 08/13/23 09:00 Rx dicyclomine 20 mg tablet 20 mg PO QID #120 tabs 05/10/23 08/13/23 08/13/23 09:00 Rx hydroxyzine pamoate 50 mg capsule 50 mg PO TID #90 caps 05/10/23 08/13/23 08/13/23 09:00 Rx insulin degludec 200 unit/mL (3 80 unit (0.4 mL) SUBCUT DAILY #18 05/10/23 08/13/23 08/13/23 09:00 Rx mL) subcutaneous pen (Tresiba mL FlexTouch U-200 insulin) insulin lispro 100 unit/mL See Rx Instructions SUBCUT 05/10/23 08/13/23 08/10/23 Rx subcutaneous pen (Humalog KwikPen .COMPLEX #15 mL (U-100) Insulin) triamcinolone acetonide 0.1 % 1 applic topical DAILY PRN itching 05/10/23 08/14/23 Unknown Rx topical ointment #30 grams lancets 33 gauge ([employer] Delica #100 ea 05/13/23 08/14/23 Unknown Rx Lancets) lancing device with lancets kit #1 ea 05/13/23 08/14/23 Unknown Rx ([employer] Plus Lancing Device kit) ondansetron 8 mg disintegrating 8 mg PO Q8H PRN nausea and 08/11/23 08/13/23 08/13/23 09:00 Rx tablet vomiting #7 tabs albuterol sulfate 90 mcg/actuation 2 puff inhalation Q4H PRN 08/12/23 08/13/23 08/13/23 20:00 Rx aerosol inhaler (ProAir HFA) shortness of breath or wheezing #8.5 grams fluoxetine 20 mg capsule 20 mg PO DAILY 08/13/23 08/13/23 08/12/23 21:00 History fluoxetine 40 mg capsule 40 mg PO BEDTIME 08/13/23 08/16/23 08/13/23 09:00 History magnesium oxide 400 mg PO DAILY PRN Muscle Spasm 08/13/23 08/13/23 08/13/23 09:00 History sacubitril 24 mg-valsartan 26 mg 1 tab PO DAILY 08/13/23 08/13/23 08/13/23 09:00 History tablet (Entresto) Allergies Allergy/AdvReac Type Severity Reaction Status Date / Time acetaminophen [From [place]] Allergy Unknown Verified 07/28/23 15:55 bacitracin Allergy ADR-Nausea Verified 07/28/23 15:55 codeine Allergy ADR-Nausea Verified 07/28/23 15:55 hydrocodone [From [place]] Allergy Unknown Verified 07/28/23 15:55 Latex, Natural Rubber Allergy Unknown Verified 07/28/23 15:55 morphine Allergy ADR-Itching Verified 07/28/23 15:55 neomycin Allergy ALGY-Rash Verified 07/28/23 15:55 [From Neosporin ([id number])] oxycodone Allergy Unknown Verified 07/28/23 15:55 polymyxin B Allergy ALGY-Rash Verified 07/28/23 15:55 [From Neosporin ([id number])] Sulfa (Sulfonamide Allergy ADR-Nausea Verified 07/28/23 15:55 Antibiotics) sulfamethoxazole Allergy Unknown Verified 07/28/23 15:55 [From Bactrim] trimethoprim [From Bactrim] Allergy Unknown Verified 07/28/23 15:55 spironolactone AdvReac Severe temporary Uncoded 07/28/23 15:55 blindness Current Medications Generic Name Dose Route Start Last Admin Trade Name Freq PRN Reason Stop Dose Admin Albuterol/Ipratropium 3 ml 08/14/23 08:00 08/16/23 13:59 Ipratropium-Albuterol 3 Ml Neb INHALATION 3 ml Q6H.RESP HERMINIO Administration Apixaban 5 mg 08/14/23 09:00 08/16/23 09:57 Apixaban 5 Mg Tablet PO 5 mg BID@0900,2100 HERMINIO Administration Benzonatate 100 mg 08/14/23 06:42 08/14/23 15:18 Benzonatate 100 Mg Capsule PO 100 mg TID PRN Administration COUGH Budesonide 0.5 mg 08/14/23 08:00 08/16/23 07:22 Budesonide 0.5 Mg/2 Ml Neb INHALATION 0.5 mg BID.RESPIRATORY HERMINIO Administration Dicyclomine HCl 20 mg 08/15/23 13:00 08/16/23 12:43 Dicyclomine 20 Mg Tablet PO Not Given QID HERMINIO Fluoxetine HCl 20 mg 08/14/23 09:00 08/16/23 09:57 Fluoxetine 20 Mg Capsule PO 20 mg DAILY HERMINIO Administration Hydralazine HCl 50 mg 08/14/23 09:00 08/16/23 15:57 Hydralazine 50 Mg Tablet PO 50 mg TID HERMINIO Administration Hydroxychloroquine Sulfate 200 mg 08/14/23 09:00 08/16/23 09:58 Hydroxychloroquine 200 Mg Tablet PO 200 mg BID HERMINIO Administration Ceftriaxone Sodium 1,000 mg/ 50 mls @ 100 mls/hr 08/14/23 07:00 08/16/23 10:37 Sodium Chloride IV Infused Q24H HERMINIO Infusion Protocol Azithromycin 500 mg/ Sodium 250 mls @ 250 mls/hr 08/14/23 07:00 08/16/23 08:20 Chloride PO 08/17/23 06:59 Infused Q24H HERMINIO Infusion Protocol Methylprednisolone Sodium 0.96 mls @ 11.52 mls/hr 08/15/23 10:45 08/16/23 12:22 Succinate 60 mg/ Sterile Water IVP Infused Q12H HERMINIO Infusion Sodium Chloride 1,000 mls @ 100 mls/hr 08/16/23 13:15 08/16/23 15:57 Sodium Chloride 0.9% IV 08/16/23 23:14 100 mls/hr .Q10H HERMINIO Administration Albumin Human 25 g in 100 mls @ 60 mls/hr 08/16/23 13:15 08/16/23 16:01 Albumin IV Infused Q12H HERMINIO Infusion Insulin Human Lispro 0 unit 08/14/23 08:00 08/16/23 12:30 Insulin Lispro 100 Unit/1 Ml SUBCUT 8 unit WM&BEDTIME HERMINIO Administration Protocol Isosorbide Mononitrate 60 mg 08/14/23 09:00 08/16/23 09:57 Isosorbide Mononitrate Er 60 Mg Tablet PO 60 mg DAILY HERMINIO Administration Lorazepam 0.5 mg 08/16/23 03:26 08/16/23 03:37 Lorazepam 2 Mg/Ml Inj 1 Ml IVP 0.5 mg ONCE PRN Administration ANXIETY Magnesium Oxide 400 mg 08/15/23 18:00 08/16/23 09:57 Magnesium Oxide 400 Mg Tablet PO 400 mg DAILY HERMINIO Administration Metoclopramide HCl 5 mg 08/15/23 11:30 08/16/23 12:11 Metoclopramide 5 Mg/Ml Sdv 2 Ml IVP 5 mg Q6H HERMINIO Administration Metoprolol Tartrate 25 mg 08/14/23 09:00 08/16/23 09:57 Metoprolol Tartrate 50 Mg Tablet PO 25 mg BID HERMINIO Administration Ondansetron HCl 4 mg 08/14/23 12:39 08/14/23 14:54 Ondansetron 2 Mg/Ml Sdv 2 Ml IVP 4 mg Q6H PRN Administration vomiting, or N/V if npo Oxycodone HCl 5 mg 08/14/23 03:11 08/16/23 04:48 Oxycodone 5 Mg Ir Tab/Cap PO 5 mg Q6H PRN Administration MODERATE PAIN PFSH Acute PFSH: Medical History Anxiety Atrial flutter Atypical chest pain Back pain Benign hypertension Chronic back pain Chronic major depressive disorder Chronic obstructive pulmonary disease, unspecified CKD (chronic kidney disease) Coronary artery fistula Diabetic neuropathy associated with type 2 diabetes mellitus Dietary noncompliance Diverticulosis Environmental and seasonal allergies Essential tremor Fibromyalgia Fracture of distal end of fibula High risk medication use Hip pain, left IBS (irritable bowel syndrome) IgM monoclonal gammopathy of uncertain significance Inflammatory arthritis Left lumbar radiculopathy Major depression Mild cognitive impairment with memory loss Mobility impaired Near syncope Noncompliance with diabetes treatment Not consistent with diet Obesity Peripheral neuropathy Polyarthralgia Positive GIFTY (antinuclear antibody) Seronegative rheumatoid arthritis of both hands Severe obstructive sleep apnea Syncope and collapse Type 2 diabetes mellitus with diabetic chronic kidney disease Urinary disorder Vitamin D deficiency Surgical History History of section 4 times History of cholecystectomy (1993) History of hysterectomy (1997) with BSO History of left heart catheterization (2017) No significant obstructive coronary disease History of tonsillectomy Hx of colonoscopy Hx of esophagogastroduodenoscopy Family History Brother Bleeding disorder CAD (coronary artery disease) Father CAD (coronary artery disease) Chronic kidney disease (CKD) Mother CAD (coronary artery disease) Cancer Diabetes Family/Other Cancer Other CHF (congestive heart failure) Heart disease Hypertension Denies family history of Clotting disorder Dementia Suicide Anesthesia complication Lung disease Stroke Social History Smoking and tobacco status: former smoker Quit status (tobacco): has quit using tobacco Year quit tobacco: 1990 Former quit date comment: smoked 20+ years Second hand smoke exposure: No Smoking risk assessment/counseling performed?: No Alcohol intake: never Desire information about alcohol rehabilitation?: No Counseling given: No Substance/Drug Use: never Desire information about substance/drug rehabilitation?: No Counseling given: No Adopted: No Caregiver/support person: Yes Lives independently: No Household members: children and other Details: Son, sometimes grandson Housing: House Marital status: Single service: No Current occupational status: disabled Do you think of yourself as: Straight/Heterosexual Current gender identity: Female Vitals/I&O/Wt Last Vital Signs Temp 97.9 F 08/16/23 12:00 Pulse 75 08/16/23 14:00 Resp 16 08/16/23 14:00 BP 179/73 08/16/23 12:00 Pulse Ox 96 08/16/23 14:00 O2 Del Method Nasal Cannula 08/16/23 14:00 O2 Flow Rate 2 08/16/23 14:00 08/16/23 08/16/23 08/16/23 06:59 14:59 22:59 Intake Total 780.96 / 780.96 100 / 880.96 Output Total 400 / 400 Balance -400 / 1101.92 780.96 / 780.96 100 / 880.96 Physical Exam 2 Narrative: awake ,alert HEENT PEERLA S1S2 RRR per report Lungs clear per report no edema Urinary Catheter Management: Juárez Latex Free: Cath Placed During This Visit: yes Reason for Continuing Indwelling Catheter: Acute Urinary Retention or Obstruction Urinary Catheter Date of Insertion: 08/14/23 Urinary Catheter Time of Insertion: 23:40 Data 08/15/23 06:24 08/16/23 05:16 A&P Assessment and plan (1) CKD (chronic kidney disease) stage 3, GFR 30-59 ml/min: (2) ROSEMARIE (acute kidney injury): (3) Hyponatremia: Plan 1. Acute on chronic kidney disease: Patient's baseline creatinine is in the 1.5-1.9 range. Now has ROSEMARIE with a creatinine of 3.5-likely multifactorial due to recent use of antibiotics, prerenal from decreased p.o. intake in the setting of nausea vomiting, and also recent contrast exposure.no obstruction on US -We will give gentle IV fluids, hold diuretics and monitor -Strict intake and output, -Avoid further IV contrast studies. -Prior UA showed proteinuria with UPCR of more than 3 g, likely has nephrotic syndrome from diabetic nephropathy., Recheck urine analysis and UPCR, will also check GIFTY panel. 2. History of hypertension: Blood pressure stable, hold ART inhibitors 3. Hyperkalemia: K5.6 today, will treat medically and repeat BMP later today. Should be on a low K diet 4. Hyponatremia: Sodium 127, suspect hypovolemic, will give normal saline and monitor 5. Question diastolic CHF history: Prior echo showed ejection fraction of 55 to 60% 6. Anemia: Check iron studies, will order BOUCHRA Patient evaluated using audiovisual cart. Time spent 40 minutes Consult Attestations Medical Necessity Statement: per marlene Coding Level of Care Code Acute Code for Chg Fwd Diagnoses CKD (chronic kidney disease) stage 3, GFR 30-59 ml/min N18.30 ROSEMARIE (acute kidney injury) N17.9 Hyponatremia E87.1
[2023-08-16 17:40] LABS: Glucose Point of Care 210 mg/dL (70-110)
[2023-08-16] MEDS: fluoxetine 20 mg Capsule 40 MG PO (20:13)
[2023-08-16 20:19] LABS: Glucose Point of Care 254 mg/dL (70-110)
[2023-08-16] MEDS: insulin glargine 100 units/1 mL 32 UNIT SUBCUT (20:21)
[2023-08-17] VITALS (22 sets, daily range): BP systolic 100–189; BP diastolic 66–90; PULSE 74–96; RESP 16–97; TEMP 36.2–37.3; O2SAT 96–99
[2023-08-17 00:02] LABS: Add Urine Microscopic? YES; Bilirubin Urine Neg (Negative); Blood Urine 3+ (Negative); Glucose Urine UA Norm (Normal); Ketones Urine Negative (Negative); Leukocyte Esterase Urine 2+ (Negative); Nitrate Urine Negative (Negative); Protein Urine 2+ (Negative); Urine Appearance Cloudy (CLEAR); Urine Color Yellow (Yellow); Urobilinogen Urine Neg (Negative); pH Urine 5 (5-7)
[2023-08-17 00:03] LABS: Bacteria Urine 2+ /hpf; RBC Urine 25-40 /hpf (0-2); Squamous Epithelial Cell Urine 0-4 /hpf (0-5); WBC Urine 15-25 /hpf (0-5)
[2023-08-17 00:04] LABS: Add Urine Culture? Yes; Hyaline Casts Urine 0-4 /lpf; Mucus Urine 1+ /hpf
[2023-08-17 00:08] LABS: Creatinine Urine, Random 121 mg/dL (28-217)
[2023-08-17 00:17] LABS: Urine Protein Random 104 mg/dL
[2023-08-17] MEDS: albumin 25 G/100 ML BAG 60 G IV ×2 (01:45→15:46)
[2023-08-17] MEDS: oxyCODONE 5 mg IR Tab/Cap PO ×3 (01:49→20:29)
[2023-08-17] MEDS: ipratropium-albuterol 3 mL Neb INHALATION ×3 (03:04→13:52)
[2023-08-17] MEDS: benzonatate 100 mg Capsule PO ×2 (05:59→20:29)
[2023-08-17 06:42] LABS: Glucose Point of Care 262 mg/dL (70-110)
[2023-08-17 06:45] LABS: Blood Urea Nitrogen 52 mg/dL (8-23); Calcium 8.5 mg/dL (8.5-10.5); Carbon Dioxide 20 mmol/L (22-29); Chloride 89 mmol/L (98-107); Glomerular Filtration Rate 11.5 mL/min (90-130); Glucose 208 mg/dL (65-115); Magnesium 2.4 mg/dL (1.7-2.3); Osmolality Calculated 280 mOsm/kg (285-295); Sodium 125 mmol/L (136-145)
[2023-08-17] MEDS: isosorbide mononitrate ER 60 mg Tablet PO (08:23)
[2023-08-17] MEDS: magnesium oxide 400 mg tablet PO (08:23)
[2023-08-17] MEDS: metoprolol tartrate 50 mg Tablet 25 MG PO ×2 (08:24→18:53)
[2023-08-17] MEDS: fluoxetine 20 mg Capsule PO (08:24)
[2023-08-17] MEDS: apixaban 5 mg Tablet PO (08:24)
[2023-08-17] MEDS: hyDRALAzine 50 mg Tablet PO ×3 (08:24→20:29)
[2023-08-17] MEDS: hydroxychloroquine 200 mg Tablet PO ×2 (08:24→18:53)
[2023-08-17] MEDS: budesonide 0.5 mg/2 mL Neb INHALATION (08:27)
[2023-08-17] MEDS: cefTRIAXone 1,000 MG in sodium chloride 0.9% (plus) 50 ML 100 MG IV (08:28)
[2023-08-17] MEDS: insulin lispro 100 unit/1 mL SUBCUT ×4 (08:29→22:19)
--- NOTE | 2023-08-17 10:20 | P.PN_ITS ---
Subjective Subjective: 68-year-old lady with multiple comorbidities as listed above presented to the hospital with worsening dyspnea and chest discomfort since acquiring COVID approximately 2 weeks ago.? Patient was found to be in mild congestive heart failure with complaints of nausea. 08/13/2023: Patient suspected to have diabetic gastroparesis and patient was started on Reglan 5 mg 3 times daily Zofran 8 mg every 6 hours as needed and Protonix 40 mg twice daily. CTA showed no pulmonary embolus, suspected small airway disease, no consolidations suggestive of pneumonia, small bilateral pleural effusions. Patient was treated for a CHF exacerbation as well as pneumonitis with fluid restriction IV diuresis with Lasix 40 mg every 12 and Ceftin and Zithromax for pneumonitis. 08/14/2023: CT abdomen pelvis obtained. No acute findings to explain nausea vomiting abdominal pain 08/15/2023: started steroids for cough, COPD exac in hopes of also treating n/v 08/16/2023: No further vomiting. Increase diet. worsening renal function. work up and consult renal. 08/17/2023: Pt c/o SOB, bloating and significant discomfort generally. c/o of abd discomfort unable to pass gas or have BM Vitals/I&O/Wt Last Vital Signs Temp 98.2 F 08/17/23 07:54 Pulse 75 08/17/23 08:35 Resp 18 08/17/23 08:35 BP 188/90 08/17/23 07:54 Pulse Ox 99 08/17/23 08:35 O2 Del Method Nasal Cannula 08/17/23 08:35 O2 Flow Rate 2 08/17/23 08:35 08/16/23 08/17/23 08/17/23 22:59 06:59 14:59 Intake Total 340 / 1120.96 1100.96 / 2221.92 480 / 480 Output Total 350 / 350 100 / 450 Balance -10 / 770.96 1000.96 / 1771.92 480 / 480 Physical Exam Narrative: Morbidly obese white female in moderate distress - feeling SOB Neurologic: Alert and oriented x3 nonfocal exam Heart: Distant heart sounds regular rate and rhythm no loud murmur click gallop or rub lungs: Clear to auscultation however diffusely limited inspiration Abdomen: Morbidly obese soft mild diffuse tenderness hard to determine dis tention in morbidly obese abdomen, positive bowel sounds Extremities: non pitting edema Skin: Pale warm and dry Urinary Catheter Management: Juárez Latex Free: Cath Placed During This Visit: yes Reason for Continuing Indwelling Catheter: Other Urinary Catheter Date of Insertion: 08/14/23 Urinary Catheter Time of Insertion: 23:40 Data 08/15/23 06:24 08/17/23 05:20 A&P Assessment and plan (1) Acute on chronic renal failure: Patient's creatinine continues to climb and K now elevated too. Discussed with nephrology. Due to pt's subjective complaints and elevated K, will proceed with short term HD. consult placed and discussed with Dr. Sanchez for temp HD cath. Dr. Schaefer ordering bicarb gtt, inluslin d50 and kayexalate (2) Diabetic gastroparesis: stop reglan as kidney function severely worsening (3) Hypoxia: Resolved. Pt on 3L with 99% FIO2 (4) COPD exacerbation: I do believe based on CT of chest that patient is experiencing a COPD exacerbation although she has returned to her baseline oxygen status. The reasoning for starting Solu-Medrol is for the cough for suppression however this will also treat COPD. 08/17/23 I will continue (5) Type 2 diabetes mellitus with diabetic chronic kidney disease: Most recent hemoglobin A1c is 7.7 on May 25, 2023. Earlier this year she was at 8.8. Will attempt better control during acute illness. (6) Situational anxiety: It appears patient takes fluoxetine 60 mg total per day this will be resumed at home dose (7) Fibromyalgia: (8) Benign hypertension: Blood pressures are elevated likely due to acute on chronic renal disease. Will allow permissive hypertension to allow good blood flow through kidneys (9) Noncompliance with diabetes treatment: (10) IBS (irritable bowel syndrome): dicyclomine listed as home dose, however, pt declines to take it. Will d/c (11) Intractable nausea and vomiting: had improved (12) CKD (chronic kidney disease) stage 3, GFR 30-59 ml/min: as above (13) Chronic diastolic heart failure: Patient is on diuretics at home however this will need to be stopped due to A/C RF. Pt also on metoprolol and Entresto for this diagnosis. HOLD diuretics and entresto due to A on CRF Plan HD today. Attestations Medical Necessity Statement*: Requires further hospitalization for management of significantly worsening acute on chronic renal failure which now requires urgent dialysis. Coding Level of Care Code Acute Code for Chg Fwd Diagnoses Acute on chronic renal failure N17.9; N18.9 Diabetic gastroparesis E11.43; K31.84 Hypoxia R09.02 COPD exacerbation J44.1 Type 2 diabetes mellitus with diabetic chronic kidney disease E11.22 Situational anxiety F41.8 Fibromyalgia M79.7 Benign hypertension I10 Noncompliance with diabetes treatment Z91.19 IBS (irritable bowel syndrome) K58.9 Intractable nausea and vomiting R11.2 CKD (chronic kidney disease) stage 3, GFR 30-59 ml/min N18.30 Chronic diastolic heart failure I50.32
[2023-08-17] MEDS: methylPREDNISolone sod succ 60 MG in water for injection-sterile 0.96 ML 11 MG IVP (10:39)
[2023-08-17] MEDS: insulin regular-human 10 UNIT in SYRINGE 1 EACH IVP (10:39)
[2023-08-17] MEDS: FUROsemide 10 mg/mL SDV 10mL 80 MG IVP (10:41)
[2023-08-17] MEDS: dextrose 50% syringe 50 mL 25 ML IVP (10:42)
[2023-08-17] MEDS: sodium polystyrene sulfonate 15 gm/60 mL Btl 30 GM PO (10:42)
[2023-08-17] MEDS: sodium bicarbonate 150 MEQ in dextrose 5% 1,000 ML 100 MEQ IV ×2 (10:43→23:58)
--- NOTE | 2023-08-17 11:26 | PM.DIACAT ---
Procedure Note: Date of procedure: 08/17/23 Pre-op diagnosis: Acute on chronic kidney injury Post-op diagnosis: same Procedure Performed: femoral dialysis catheter (Attempted and aborted) Procedure: After obtaining consent, the patient's right groin was inspected prepped and draped in usual sterile fashion. The groin was localized with lidocaine. Multiple attempts to access the right femoral vein were attempted. The wire would not thread. Procedure was aborted and nephrology requested that we hold off on catheter placement for now. Pressure dressing was applied. Coding Level of Care Code Acute Code for Chg Fwd
[2023-08-17 11:59] LABS: Glucose Point of Care 200 mg/dL (70-110)
[2023-08-17 15:04] LABS: Blood Urea Nitrogen 54 mg/dL (8-23); Calcium 8.7 mg/dL (8.5-10.5); Carbon Dioxide 21 mmol/L (22-29); Chloride 87 mmol/L (98-107); Glomerular Filtration Rate 11.5 mL/min (90-130); Glucose 207 mg/dL (65-115); Osmolality Calculated 281 mOsm/kg (285-295); Sodium 125 mmol/L (136-145)
[2023-08-17 15:12] LABS: Anion Gap 22.7 (5-19); Potassium 5.7 mmol/L (3.5-5.1)
--- NOTE | 2023-08-17 16:53 | P.CONIM_ITS ---
Providers/Reason For Consult Consulting Physician/Specialty*: Dr. Bib Sanchez D.O. Reason for Consult*: need for temporary hemodialysis catheter placement Attending Physician: Elroy Nava DO Primary Care Provider: PARAG Mensah History of Present Illness History of Present Illness Jennifer Novak is a 68 year old female with chronic kidney disease who is currently in the hospital with oliguria. She denies any pain. Nephrology has requested temporary hemodialysis catheter placement. Review of Systems General: Reports: 10 or more systems reviewed and unremarkable except in HPI and below Medications/Allergies Home Medications Medication Instructions Recorded Confirmed Last Taken Type cholecalciferol (vitamin D3) 125 125 mcg PO DAILY 05/14/21 08/13/23 08/13/23 09:00 History mcg (5,000 unit) tablet (Vitamin D3) acetaminophen 325 mg tablet 325 - 650 mg PO Q6H PRN Pain 12/13/21 08/13/23 Unknown History wheelchair cushions #1 ea 01/12/22 08/14/23 Unknown Rx clindamycin phosphate 1 % lotion See Rx Instructions .Route 02/03/22 08/13/23 05/31/22 Rx .COMPLEX #60 mL Alternating pressure mattress and #1 ea 02/12/22 08/14/23 Unknown Rx pressure pump cyanocobalamin (vitamin B-12) 50 50 mcg PO DAILY ##0 04/12/22 08/13/23 08/13/23 09:00 History mcg tablet (Vitamin B-12) metoprolol tartrate 50 mg tablet 25 mg PO BID 05/31/22 08/13/23 08/13/23 09:00 History potassium chloride 20 mEq 30 meq PO DAILY #135 tabs 07/21/22 08/13/23 08/11/23 09:00 Rx tablet,extended release torsemide 100 mg tablet 100 mg PO DAILY #90 tabs 07/21/22 08/13/23 08/13/23 0 9:00 Rx nitroglycerin 0.4 mg sublingual 0.4 mg sublingual Q5M PRN Chest 09/20/22 08/13/23 Unknown Rx tablet (Nitrostat) Pain #50 tabs blood-glucose meter (OneTouch #1 ea 09/29/22 08/14/23 Unknown Rx Ultra2 Meter kit) pen needle, diabetic 31 gauge x #200 ea 01/11/23 08/14/23 Unknown Rx 5/16 (TechLITE Pen Needle) hydralazine 50 mg tablet 50 mg PO TID #90 tabs 01/27/23 08/13/23 08/13/23 09:00 Rx Motorized lift chair #1 ea 02/25/23 08/14/23 Unknown Rx diabetic shoes with inserts #1 ea 02/25/23 08/14/23 Unknown Rx blood sugar diagnostic (OneTouch #100 ea 03/02/23 08/14/23 Unknown Rx Ultra Test strips) isosorbide mononitrate 60 mg 60 mg PO DAILY #90 tabs 04/13/23 08/13/23 08/13/23 09:00 Rx tablet,extended release 24 hr hydroxychloroquine 200 mg tablet 200 mg PO BID #180 tabs 05/02/23 08/13/23 08/13/23 09:00 Rx leflunomide 20 mg tablet 20 mg PO DAILY #30 tabs 05/02/23 08/14/23 Unknown Rx apixaban 5 mg tablet (Eliquis) 5 mg PO BID@0900,2100 #60 tabs 05/10/23 08/13/23 08/13/23 09:00 Rx dicyclomine 20 mg tablet 20 mg PO QID #120 tabs 05/10/23 08/13/23 08/13/23 09:00 Rx hydroxyzine pamoate 50 mg capsule 50 mg PO TID #90 caps 05/10/23 08/13/23 08/13/23 09:00 Rx insulin degludec 200 unit/mL (3 80 unit (0.4 mL) SUBCUT DAILY #18 05/10/23 08/13/23 08/13/23 09:00 Rx mL) subcutaneous pen (Tresiba mL FlexTouch U-200 insulin) insulin lispro 100 unit/mL See Rx Instructions SUBCUT 05/10/23 08/13/23 08/10/23 Rx subcutaneous pen (Humalog KwikPen .COMPLEX #15 mL (U-100) Insulin) triamcinolone acetonide 0.1 % 1 applic topical DAILY PRN itching 05/10/23 08/14/23 Unknown Rx topical ointment #30 grams lancets 33 gauge (OneTouch Delica #100 ea 05/13/23 08/14/23 Unknown Rx Lancets) lancing device with lancets kit #1 ea 05/13/23 08/14/23 Unknown Rx (IndustriaplexTouch Delica Plus Lancing Device kit) ondansetron 8 mg disintegrating 8 mg PO Q8H PRN nausea and 08/11/23 08/13/23 08/13/23 09:00 Rx tablet vomiting #7 tabs albuterol sulfate 90 mcg/actuation 2 puff inhalation Q4H PRN 08/12/23 08/13/23 08/13/23 20:00 Rx aerosol inhaler (ProAir HFA) shortness of breath or wheezing #8.5 grams fluoxetine 20 mg capsule 20 mg PO DAILY 08/13/23 08/13/23 08/12/23 21:00 History fluoxetine 40 mg capsule 40 mg PO BEDTIME 08/13/23 08/16/23 08/13/23 09:00 History magnesium oxide 400 mg PO DAILY PRN Muscle Spasm 08/13/23 08/13/23 08/13/23 09:00 History sacubitril 24 mg-valsartan 26 mg 1 tab PO DAILY 08/13/23 08/13/23 08/13/23 09:00 History tablet (Entresto) Allergies Allergy/AdvReac Type Severity Reaction Status Date / Time acetaminophen [From [place]] Allergy Unknown Verified 07/28/23 15:55 bacitracin Allergy ADR-Nausea Verified 07/28/23 15:55 codeine Allergy ADR-Nausea Verified 07/28/23 15:55 hydrocodone [From [place]] Allergy Unknown Verified 07/28/23 15:55 Latex, Natural Rubber Allergy Unknown Verified 07/28/23 15:55 morphine Allergy ADR-Itching Verified 07/28/23 15:55 neomycin Allergy ALGY-Rash Verified 07/28/23 15:55 [From Neosporin ([id number])] oxycodone Allergy Unknown Verified 07/28/23 15:55 polymyxin B Allergy ALGY-Rash Verified 07/28/23 15:55 [From Neosporin ([id number])] Sulfa (Sulfonamide Allergy ADR-Nausea Verified 07/28/23 15:55 Antibiotics) sulfamethoxazole Allergy Unknown Verified 07/28/23 15:55 [From Bactrim] trimethoprim [From Bactrim] Allergy Unknown Verified 07/28/23 15:55 spironolactone AdvReac Severe temporary Uncoded 07/28/23 15:55 blindness Current Medications Generic Name Dose Route Start Last Admin Trade Name Freq PRN Reason Stop Dose Admin Albuterol/Ipratropium 3 ml 08/14/23 08:00 08/17/23 13:52 Ipratropium-Albuterol 3 Ml Neb INHALATION 3 ml Q6H.RESP HERMINIO Administration Apixaban 5 mg 08/14/23 09:00 08/17/23 08:24 Apixaban 5 Mg Tablet PO 5 mg BID@0900,2100 HERMINIO Administration Benzonatate 100 mg 08/14/23 06:42 08/17/23 05:59 Benzonatate 100 Mg Capsule PO 100 mg TID PRN Administration COUGH Budesonide 0.5 mg 08/14/23 08:00 08/17/23 08:27 Budesonide 0.5 Mg/2 Ml Neb INHALATION 0.5 mg BID.RESPIRATORY HERMINIO Administration Fluoxetine HCl 20 mg 08/14/23 09:00 08/17/23 08:24 Fluoxetine 20 Mg Capsule PO 20 mg DAILY HERMINIO Administration Fluoxetine HCl 40 mg 08/16/23 21:00 08/16/23 20:13 Fluoxetine 20 Mg Capsule PO 40 mg BEDTIME HERMINIO Administration Hydralazine HCl 50 mg 08/14/23 09:00 08/17/23 15:14 Hydralazine 50 Mg Tablet PO 50 mg TID HERMINIO Administration Hydroxychloroquine Sulfate 200 mg 08/14/23 09:00 08/17/23 08:24 Hydroxychloroquine 200 Mg Tablet PO 200 mg BID HERMINIO Administration Methylprednisolone Sodium 0.96 mls @ 11.52 mls/hr 08/15/23 10:45 08/17/23 10:46 Succinate 60 mg/ Sterile Water IVP Infused Q12H HERMINIO Infusion Albumin Human 25 g in 100 mls @ 60 mls/hr 08/16/23 13:15 08/17/23 15:46 Albumin IV 60 mls/hr Q12H HERMIINO Administration Sodium Bicarbonate 150 meq/ 1,150 mls @ 100 mls/hr 08/17/23 10:30 08/17/23 10:43 Dextrose IV 100 mls/hr .[id number] HERMINIO Administration Insulin Glargine 32 unit 08/16/23 21:00 08/16/23 20:21 Insulin Glargine 100 Units/1 Ml SUBCUT 32 unit BEDTIME HERMINIO Administration Insulin Human Lispro 0 unit 08/14/23 08:00 08/17/23 12:30 Insulin Lispro 100 Unit/1 Ml SUBCUT 4 unit WM&BEDTIME HERMINIO Administration Protocol Isosorbide Mononitrate 60 mg 08/14/23 09:00 08/17/23 08:23 Isosorbide Mononitrate Er 60 Mg Tablet PO 60 mg DAILY HERMINIO Administration Metoprolol Tartrate 25 mg 08/14/23 09:00 08/17/23 08:24 Metoprolol Tartrate 50 Mg Tablet PO 25 mg BID HERMINIO Administration Morphine Sulfate 5 mg 08/17/23 10:30 08/17/23 12:22 Morphine 10 Mg/0.5 Ml Oral Liq Ud PO Not Given Q6H HERMINIO Ondansetron HCl 4 mg 08/14/23 12:39 08/14/23 14:54 Ondansetron 2 Mg/Ml Sdv 2 Ml IVP 4 mg Q6H PRN Administration vomiting, or N/V if npo Oxycodone HCl 5 mg 08/14/23 03:11 08/17/23 15:14 Oxycodone 5 Mg Ir Tab/Cap PO 5 mg Q6H PRN Administration MODERATE PAIN PFSH Acute PFSH: Medical History Anxiety Atrial flutter Atypical chest pain Back pain Benign hypertension Chronic back pain Chronic major depressive disorder Chronic obstructive pulmonary disease, unspecified CKD (chronic kidney disease) Coronary artery fistula Diabetic neuropathy associated with type 2 diabetes mellitus Dietary noncompliance Diverticulosis Environmental and seasonal allergies Essential tremor Fibromyalgia Fracture of distal end of fibula High risk medication use Hip pain, left IBS (irritable bowel syndrome) IgM monoclonal gammopathy of uncertain significance Inflammatory arthritis Left lumbar radiculopathy Major depression Mild cognitive impairment with memory loss Mobility impaired Near syncope Noncompliance with diabetes treatment Not consistent with diet Obesity Peripheral neuropathy Polyarthralgia Positive GIFTY (antinuclear antibody) Seronegative rheumatoid arthritis of both hands Severe obstructive sleep apnea Syncope and collapse Type 2 diabetes mellitus with diabetic chronic kidney disease Urinary disorder Vitamin D deficiency Surgical History History of section 4 times History of cholecystectomy (1993) History of hysterectomy (1997) with BSO History of left heart catheterization (2018) No significant obstructive coronary disease History of tonsillectomy Hx of colonoscopy Hx of esophagogastroduodenoscopy Family History Brother Bleeding disorder CAD (coronary artery disease) Father CAD (coronary artery disease) Chronic kidney disease (CKD) Mother CAD (coronary artery disease) Cancer Diabetes Family/Other Cancer Other CHF (congestive heart failure) Heart disease Hypertension Denies family history of Clotting disorder Dementia Suicide Anesthesia complication Lung disease Stroke Social History Smoking and tobacco status: former smoker Quit status (tobacco): has quit using tobacco Year quit tobacco: 1990 Former quit date comment: smoked 20+ years Second hand smoke exposure: No Smoking risk assessment/counseling performed?: No Alcohol intake: never Desire information about alcohol rehabilitation?: No Counseling given: No Substance/Drug Use: never Desire information about substance/drug rehabilitation?: No Counseling given: No Adopted: No Caregiver/support person: Yes Lives independently: No Household members: children and other Details: Son, sometimes grandson Housing: House Marital status: Single service: No Current occupational status: disabled Do you think of yourself as: Straight/Heterosexual Current gender identity: Female Vitals/I&O/Wt Last Vital Signs Temp 99.1 F 08/17/23 11:58 Pulse 76 08/17/23 13:52 Resp 17 08/17/23 15:14 BP 100/70 08/17/23 11:58 Pulse Ox 97 08/17/23 13:52 O2 Del Method Nasal Cannula 08/17/23 13:52 O2 Flow Rate 2 08/17/23 13:52 08/17/23 08/17/23 08/17/23 06:59 14:59 22:59 Intake Total 1100.96 / 2221.92 531.06 / 531.06 Output Total 100 / 450 Balance 1000.96 / 1771.92 531.06 / 531.06 Physical Exam Narrative: General : Patient is well developed , no acute distress, oriented x3 Head : Normal cephalic, a-traumatic. Ears : Pinnae and external canal are normal. Hearing is normal. Eyes : PERRLA, Sclera and injection are normal. No conjunctival discharge. Nose : Mucous membranes are without erythema. Throat : buccal mucosa is normal, gums are without significant recession or hypertrophy. Lungs : Equal chest rise bilaterally, no use of accessory muscles, trachea is midline. Cor : Rate and rhythm are normal. Abdomen : Soft, ND, NT, no g/r/m Extremities : No edema, no cyanosis or clubbing, dorsalis pedis pulses are p resent bilaterally, non-tender to palpation of calves. Upper extremities are normal bilaterally. Back : non-tender to palpation, no CVA tenderness. Neuro : CN II - XII intact, Upper and lower extremities have equal and full strength Urinary Catheter Management: Juárez Latex Free: Cath Placed During This Visit: yes Reason for Continuing Indwelling Catheter: Other Urinary Catheter Date of Insertion: 08/14/23 Urinary Catheter Time of Insertion: 23:40 Data 08/18/23 04:58 08/19/23 04:40 A&P Assessment and plan (1) Acute on chronic renal failure: Plan Temporary hemodialysis catheter placement The risks and benefits of the procedure, including but not limited to, bleeding, infection, infection requiring Mediport removal antibiotic therapy and repeat surgery, damage to surrounding structures, scar, numbness, pain, pneumothorax requiring thoracostomy tube, were explained to the patient. He/She is understanding of the risks and wishes to proceed. Coding Level of Care Code 82395 Diagnoses Acute on chronic renal failure N17.9; N18.9
[2023-08-17] MEDS: factor xa, inactivated-zhzo 400 MG in empty flexible container 1 EACH, non-DEHP filter ... 180 MG IV (17:13)
[2023-08-17 17:51] LABS: Glucose Point of Care 299 mg/dL (70-110)
[2023-08-17] MEDS: factor xa, inactivated-zhzo 480 MG in empty flexible container 1 EACH, non-DEHP filter ... 24 MG IV (18:00)
--- NOTE | 2023-08-17 18:24 | PM.PN ---
Subjective Subjective: c/o SOB UOP low Medications: Reviewed: Yes Vitals/I&O/Wt Last Vital Signs Temp 97.9 F 08/17/23 16:00 Pulse 81 08/17/23 18:17 Resp 16 08/17/23 18:17 BP 161/74 08/17/23 18:17 Pulse Ox 98 08/17/23 18:17 O2 Del Method Nasal Cannula 08/17/23 16:00 O2 Flow Rate 2 08/17/23 13:52 08/17/23 08/17/23 08/17/23 06:59 14:59 22:59 Intake Total 1100.96 / 2221.92 531.06 / 531.06 140 / 671.06 Output Total 100 / 450 Balance 1000.96 / 1771.92 531.06 / 531.06 140 / 671.06 Physical Exam Narrative: awake ,alert , on 2L O2 HEENT + LE EDEMA Urinary Catheter Management: Juárez Latex Free: Cath Placed During This Visit: yes Reason for Continuing Indwelling Catheter: Other Urinary Catheter Date of Insertion: 08/14/23 Urinary Catheter Time of Insertion: 23:40 Data 08/15/23 06:24 08/17/23 14:14 A&P Assessment and plan (1) CKD (chronic kidney disease) stage 3, GFR 30-59 ml/min: (2) ROSEMARIE (acute kidney injury): (3) Hyponatremia: Plan 1. Acute on chronic kidney disease: Patient's baseline creatinine is in the 1.5-1.9 range. Now has ROSEMARIE with a creatinine of 3.9-likely multifactorial due to recent use of antibiotics, prerenal from decreased p.o. intake in the setting of nausea vomiting, and also recent contrast exposure.no obstruction on US -switched IVFs to bicarb gtt -Strict intake and output, -Avoid further IV contrast studies. -Prior UA showed proteinuria with UPCR of more than 3 g, likely has nephrotic syndrome from diabetic nephropathy., Recheck urine analysis and UPCR, will also check GIFTY panel. Renal function worse with oliguria , and has hyperkalemia and metabolic acidosis : recommend temporary HD , general sx consulted for line placement 2. History of hypertension: Blood pressure stable, hold ART inhibitors 3. Hyperkalemia: K5.6 today, will treat medically and repeat BMP later today. Should be on a low K diet 4. Hyponatremia: Sodium 125, suspect hypovolemic, onIVFs 5. Question diastolic CHF history: Prior echo showed ejection fraction of 55 to 60% 6. Anemia: Check iron studies, will order BOUCHRA Patient evaluated using audiovisual cart. Time spent 40 minutes Attestations Medical Necessity Statement*: per mediicne team Coding Level of Care Code Acute Code for Chg Fwd Diagnoses CKD (chronic kidney disease) stage 3, GFR 30-59 ml/min N18.30 ROSEMARIE (acute kidney injury) N17.9 Hyponatremia E87.1
[2023-08-17 19:15] LABS: Hematocrit 22.2 % (36-47)
[2023-08-17 19:35] LABS: Alanine Aminotransferase 17 U/L (0-33); Albumin Level 3.6 g/dL (3.5-5.2); Alkaline Phosphatase 70 U/L (35-105); Blood Urea Nitrogen 55 mg/dL (8-23); Calcium 8.2 mg/dL (8.5-10.5); Carbon Dioxide 23 mmol/L (22-29); Chloride 88 mmol/L (98-107); Globulin 2.4 g/dL (1.3-4.6); Glomerular Filtration Rate 11.2 mL/min (90-130); Glucose 246 mg/dL (65-115); Osmolality Calculated 281 mOsm/kg (285-295); Sodium 124 mmol/L (136-145); Total Bilirubin 0.2 mg/dL (0.15-1.2)
[2023-08-17 19:39] LABS: Anion Gap 18.6 (5-19); Aspartate Amino Transferase 20 U/L (0-32); Potassium 5.6 mmol/L (3.5-5.1)
[2023-08-17] MEDS: morphine 10 mg/0.5 mL oral liq UD 5 MG PO (20:28)
[2023-08-17] MEDS: fluoxetine 20 mg Capsule 40 MG PO (20:29)
[2023-08-17 21:54] LABS: Glucose Point of Care 289 mg/dL (70-110)
[2023-08-17] MEDS: methylPREDNISolone sod succ 60 MG in water for injection-sterile 0.96 ML 12 MG IVP (22:19)
[2023-08-17 22:20] LABS: Glucose Point of Care 281 mg/dL (70-110)
[2023-08-17] MEDS: hyDROXYzine 25 mg Capsule PO (23:46)
[2023-08-18] VITALS (21 sets, daily range): BP systolic 131–186; BP diastolic 67–90; PULSE 73–85; RESP 16–19; TEMP 36.7–37; O2SAT 93–97; BMI 54.9
[2023-08-18] MEDS: sodium chloride 0.9% 100 mL Bag 50 ML IV (00:51)
[2023-08-18] MEDS: albumin 25 G/100 ML BAG 60 G IV ×2 (01:24→14:07)
[2023-08-18] MEDS: ipratropium-albuterol 3 mL Neb INHALATION ×3 (02:01→13:36)
[2023-08-18] MEDS: oxyCODONE 5 mg IR Tab/Cap PO ×3 (02:17→18:30)
[2023-08-18 05:08] LABS: Basophils % 0.1 %; Hematocrit 22.6 % (36-47); Lymphocytes # 0.3 10^3/uL (0.8-4.8); Lymphocytes % 2.6 %; Mean Corpuscular HGB Conc 33.6 g/dL (30-55); Mean Corpuscular Hemoglobin 28.6 pg (27-33); Mean Platelet Volume 10.3 fL (7.4-10.4); Monocytes # 0.2 10^3/uL (0.2-0.9); Monocytes % 1.9 %; Neutrophils # 9.98 10^3/uL (1.8-7.7); Neutrophils % 94.8 %; Nucleated Red Blood Cells % 0 %; Platelet Count 299 10^3/cmm (157-399); Red Blood Count 2.66 10^6/uL (3.85-5.65); White Blood Count 10.52 10^3/uL (3.29-11.43)
[2023-08-18 05:33] LABS: Blood Urea Nitrogen 57 mg/dL (8-23); Calcium 8.5 mg/dL (8.5-10.5); Carbon Dioxide 25 mmol/L (22-29); Chloride 87 mmol/L (98-107); Glomerular Filtration Rate 11.2 mL/min (90-130); Glucose 190 mg/dL (65-115); Magnesium 2.4 mg/dL (1.7-2.3); Osmolality Calculated 285 mOsm/kg (285-295); Sodium 127 mmol/L (136-145)
[2023-08-18 05:34] LABS: Anion Gap 20.2 (5-19); Potassium 5.2 mmol/L (3.5-5.1)
[2023-08-18 06:29] LABS: Glucose Point of Care 265 mg/dL (70-110)
[2023-08-18 07:23] LABS: Hepatitis B Core AB, Total Non-Reactive (Nonreactive); Hepatitis B Surface AB 4.5 (11.5-1000); Hepatitis B Surface Antigen Non-Reactive (Nonreactive)
[2023-08-18] MEDS: insulin lispro 100 unit/1 mL SUBCUT ×4 (08:41→20:28)
[2023-08-18] MEDS: budesonide 0.5 mg/2 mL Neb INHALATION (08:45)
--- NOTE | 2023-08-18 09:18 | PM.PN ---
Subjective Subjective: c/o cough and SOB Medications: Reviewed: Yes Vitals/I&O/Wt Last Vital Signs Temp 98.2 F 08/18/23 08:08 Pulse 76 08/18/23 08:58 Resp 16 08/18/23 08:45 BP 186/90 08/18/23 08:08 Pulse Ox 96 08/18/23 08:45 O2 Del Method Nasal Cannula 08/18/23 08:45 O2 Flow Rate 1 08/18/23 08:45 08/17/23 08/18/23 08/18/23 22:59 06:59 14:59 Intake Total 1324.96 / 1856.02 963 / 2819.02 Output Total 600 / 600 Balance 1324.96 / 1856.02 363 / 2219.02 Physical Exam Narrative: awake ,alert , on 2L O2 HEENT + LE EDEMA Urinary Catheter Management: Juárez Latex Free: Cath Placed During This Visit: yes Reason for Continuing Indwelling Catheter: Other Urinary Catheter Date of Insertion: 08/14/23 Urinary Catheter Time of Insertion: 23:40 Data 08/18/23 04:58 08/18/23 04:58 A&P Assessment and plan (1) CKD (chronic kidney disease) stage 3, GFR 30-59 ml/min: (2) ROSEMARIE (acute kidney injury): (3) Hyponatremia: Plan 1. Acute on chronic kidney disease: Patient's baseline creatinine is in the 1.5-1.9 range. Now has ROSEMARIE with a creatinine of 3.9-likely multifactorial due to recent use of antibiotics, prerenal from decreased p.o. intake in the setting of nausea vomiting, and also recent contrast exposure.no obstruction on US -switched IVFs to bicarb gtt -Strict intake and output, -Avoid further IV contrast studies. -Prior UA showed proteinuria with UPCR of more than 3 g, likely has nephrotic syndrome from diabetic nephropathy., Recheck urine analysis and UPCR, will also check GIFTY panel. Renal function worse with oliguria , and has hyperkalemia : recommend temporary HD , general sx consulted for line placement , HD today and tomorrow and then wait for renal recovery 2. History of hypertension: Blood pressure stable, hold ART inhibitors 3. Hyperkalemia: K5.2 today, will treat medically and repeat BMP later today. Should be on a low K diet 4. Hyponatremia: Sodium 127, suspect hypovolemic, onIVFs 5. Question diastolic CHF history: Prior echo showed ejection fraction of 55 to 60% 6. Anemia: Check iron studies, will order BOUCHRA Patient evaluated using audiovisual cart. Time spent 40 minutes Attestations Medical Necessity Statement*: per mediicne team Coding Level of Care Code Acute Code for Chg Fwd Diagnoses CKD (chronic kidney disease) stage 3, GFR 30-59 ml/min N18.30 ROSEMARIE (acute kidney injury) N17.9 Hyponatremia E87.1
[2023-08-18] MEDS: methylPREDNISolone sod succ 60 MG in water for injection-sterile 0.96 ML 11.52 MG IVP ×2 (09:58→21:09)
[2023-08-18] MEDS: hydroxychloroquine 200 mg Tablet PO ×2 (10:13→17:38)
[2023-08-18] MEDS: ondansetron 2 mg/ML SDV 2 mL 4 MG IVP (10:13)
[2023-08-18] MEDS: hyDRALAzine 50 mg Tablet PO ×3 (10:14→20:20)
[2023-08-18] MEDS: metoprolol tartrate 50 mg Tablet 25 MG PO ×2 (10:14→17:38)
[2023-08-18] MEDS: fluoxetine 20 mg Capsule PO (10:14)
[2023-08-18] MEDS: isosorbide mononitrate ER 60 mg Tablet PO (10:15)
--- NOTE | 2023-08-18 10:19 | PC.SOCIAL ---
IMM Updated Updated pt on IMM. No questions voiced. Provided pt a copy. Initialed, dated, & timed copy in chart.
[2023-08-18 11:22] LABS: Glucose Point of Care 245 mg/dL (70-110)
--- NOTE | 2023-08-18 12:52 | P.PN_ITS ---
Subjective Subjective: 68-year-old lady with multiple comorbidities as listed above presented to the hospital with worsening dyspnea and chest discomfort since acquiring COVID approximately 2 weeks ago.? Patient was diagnosed with mild congestive heart failure and will nausea and vomiting. 08/13/2023: Patient suspected to have diabetic gastroparesis and patient was started on Reglan 5 mg 3 times daily, Zofran 8 mg every 6 hours as needed and Protonix 40 mg twice daily.? CTA showed no pulmonary embolus, suspected small airway disease, no consolidations suggestive of pneumonia, small bilateral pleural effusions.? Patient was treated for a CHF exacerbation as well as pneumonitis with fluid restriction, IV diuresis with Lasix 40 mg every 12 and Ceftin and Zithromax for pneumonitis. 08/14/2023: CT abdomen pelvis obtained.? No acute findings to explain nausea vomiting abdominal pain 08/15/2023: started steroids for cough, COPD exac in hopes of also treating n/v 08/16/2023: No further vomiting.? Increase diet.? Worsening renal function.? Work up and consult renal. 08/17/2023: Pt c/o SOB, bloating and significant discomfort generally. c/o of abd discomfort unable to pass gas or have BM. Precious with nephrology, was on telemedicine. She recommended urgent dialysis and temporary dialysis catheter placement due to the patient's symptoms worsening of serum creatinine as well as elevated potassium. Unfortunately, patient experienced a procedural complication with excessive b leeding during attempt to place temporary dialysis catheter in right groin. Patient received Factor Xa, 2 units FFP and 1 unit of PRBC's. Due to patient's history of diastolic dysfunction the last unit of packed red blood cells was placed on hold. Was able to continue the bicarb drip overnight. 08/18/2023: Patient's urine output has picked up considerably. Yesterday's urine output was 400 and already today it is 1000. Reached out to nephrology to consider watchful waiting as the patient's creatinine has stabilized at 4. Planes of her usual back pain today and asked for her home meds to be restarted. Vitals/I&O/Wt Last Vital Signs Temp 98.2 F 08/18/23 08:08 Pulse 76 08/18/23 08:58 Resp 16 08/18/23 12:15 BP 186/90 08/18/23 08:08 Pulse Ox 96 08/18/23 08:45 O2 Del Method Nasal Cannula 08/18/23 08:45 O2 Flow Rate 1 08/18/23 08:45 08/17/23 08/18/23 08/18/23 22:59 06:59 14:59 Intake Total 1324.96 / 1856.02 963 / 2819.02 1150.96 / 1150.96 Output Total 600 / 600 Balance 1324.96 / 1856.02 363 / 2219.02 1150.96 / 1150.96 Physical Exam Narrative: Morbidly obese white female in seen lying in bed waiting for pain pill to kick in. Neurologic: Alert and oriented x3 nonfocal exam Heart: Distant heart sounds regular rate and rhythm no loud murmur click gallop or rub lungs: Clear to auscultation however diffusely limited inspiration Abdomen: Morbidly obese soft mild diffuse tenderness hard to determine distention in morbidly obese abdomen, positive bowel sounds Extremities: non pitting edema Skin: Pale warm and dry Urinary Catheter Management: Juárez Latex Free: Cath Placed During This Visit: yes Reason for Continuing Indwelling Catheter: Other Urinary Catheter Date of Insertion: 08/14/23 Urinary Catheter Time of Insertion: 23:40 Data 08/18/23 04:58 08/18/23 04:58 Micro: Microbiology 08/16/23 23:40 Urine Culture - Preliminary Urine,Clean Catch A&P Assessment and plan (1) Acute on chronic renal failure: Patient's creatinine has stabilized at 4.0. The potassium is 5.2. Discussed with nephrology will hold off on dialysis at this time and monitor another 1 to 2 days. I will obtain another BMP in 1 hour. Continue bicarb drip. (2) Diabetic gastroparesis: stopped reglan as kidney function has been severely worsening (3) Hypoxia: Resolved. Pt on 3L with 99% FIO2 (4) COPD exacerbation: still receiving Solu-Medrol for this diagnosis (5) Type 2 diabetes mellitus with diabetic chronic kidney disease: Most recent hemoglobin A1c is 7.7 on May 25, 2023. Earlier this year she was at 8.8. (6) Situational anxiety: It appears patient takes fluoxetine 60 mg total per day this will be resumed at home dose (7) Fibromyalgia: (8) Benign hypertension: Blood pressures are elevated likely due to acute on chronic renal disease. Will allow permissive hypertension to allow good blood flow through kidneys (9) Noncompliance with diabetes treatment: (10) IBS (irritable bowel syndrome): dicyclomine listed as home dose, however, pt declines to take it. Have discontinued (11) Intractable nausea and vomiting: has improved (12) CKD (chronic kidney disease) stage 3, GFR 30-59 ml/min: as above (13) Chronic diastolic heart failure: Patient is on diuretics at home however this will need to be stopped due to A/C RF. Pt also on metoprolol and Entresto for this diagnosis. HOLD diuretics and entresto due to A on CRF Plan Hold off on catheter today. We may be seeing the return of kidney function as above discussed with nephrology and in agreement. Attestations Medical Necessity Statement*: Requires further hospitalization for management of significantly worsening acute on chronic renal failure currently developed complication followed by attempt at temporary dialysis catheter. We will need to observe and provide expectant emergent care if necessary with further bleeding and management of the severe anemia. Coding Level of Care Code Acute Code for Chg Fwd Diagnoses Acute on chronic renal failure N17.9; N18.9 Diabetic gastroparesis E11.43; K31.84 Hypoxia R09.02 COPD exacerbation J44.1 Type 2 diabetes mellitus with diabetic chronic kidney disease E11.22 Situational anxiety F41.8 Fibromyalgia M79.7 Benign hypertension I10 Noncompliance with diabetes treatment Z91.19 IBS (irritable bowel syndrome) K58.9 Intractable nausea and vomiting R11.2 CKD (chronic kidney disease) stage 3, GFR 30-59 ml/min N18.30 Chronic diastolic heart failure I50.32
[2023-08-18 13:43] LABS: Anion Gap 17.6 (5-19); Blood Urea Nitrogen 59 mg/dL (8-23); Calcium 8.4 mg/dL (8.5-10.5); Carbon Dioxide 28 mmol/L (22-29); Chloride 86 mmol/L (98-107); Glomerular Filtration Rate 11.9 mL/min (90-130); Glucose 229 mg/dL (65-115); Osmolality Calculated 288 mOsm/kg (285-295); Potassium 4.6 mmol/L (3.5-5.1); Sodium 127 mmol/L (136-145)
[2023-08-18 13:49] LABS: CENTROMERE B ANTIBODY <1.0 NEG AI (<1.0 NEG); JO-1 ANTIBODY <1.0 NEG AI (<1.0 NEG); RNP ANTIBODY <1.0 NEG AI (<1.0 NEG); SCL-70 ANTIBODY <1.0 NEG AI (<1.0 NEG); SJOGREN'S ANTIBODY (SS-A) <1.0 NEG AI (<1.0 NEG); SM ANTIBODY <1.0 NEG AI (<1.0 NEG); SS-B <1.0 NEG AI (<1.0 NEG)
[2023-08-18 13:51] LABS: Potassium, Radom Urine 54 mmol/L
[2023-08-18 13:58] LABS: Urine Random Sodium 11 mmol/L
[2023-08-18 13:59] LABS: Urine Random Chloride < 10 mmol/L
--- NOTE | 2023-08-18 14:31 | PC.HD ---
Hemodialysis was ordered for today, but per Dr Schaefer it has been put on hold.
[2023-08-18] MEDS: sodium bicarbonate 150 MEQ in dextrose 5% 1,000 ML 100 MEQ IV (14:55)
[2023-08-18 17:11] LABS: Glucose Point of Care 317 mg/dL (70-110)
[2023-08-18] MEDS: hyDROXYzine 25 mg Capsule PO (20:17)
[2023-08-18] MEDS: fluoxetine 20 mg Capsule 40 MG PO (20:17)
[2023-08-18 20:23] LABS: Glucose Point of Care 306 mg/dL (70-110)
[2023-08-18] MEDS: insulin glargine 100 units/1 mL 32 UNIT SUBCUT (20:29)
[2023-08-19] VITALS (14 sets, daily range): BP systolic 109–210; BP diastolic 63–86; PULSE 72–81; RESP 16–19; TEMP 36.4–37.1; O2SAT 92–99
[2023-08-19] MEDS: benzonatate 100 mg Capsule PO ×2 (00:01→16:19)
[2023-08-19] MEDS: albumin 25 G/100 ML BAG 60 G IV ×2 (00:26→13:16)
[2023-08-19] MEDS: sodium bicarbonate 150 MEQ in dextrose 5% 1,000 ML 100 MEQ IV ×2 (01:48→16:47)
[2023-08-19] MEDS: LORazepam 2 mg/mL INJ 1 mL 0.5 MG IVP (02:11)
[2023-08-19] MEDS: ipratropium-albuterol 3 mL Neb INHALATION ×3 (03:04→20:33)
[2023-08-19 05:14] LABS: Blood Urea Nitrogen 59 mg/dL (8-23); Calcium 8.4 mg/dL (8.5-10.5); Carbon Dioxide 25 mmol/L (22-29); Chloride 86 mmol/L (98-107); Glomerular Filtration Rate 10.3 mL/min (90-130); Glucose 202 mg/dL (65-115); Osmolality Calculated 286 mOsm/kg (285-295); Sodium 127 mmol/L (136-145)
[2023-08-19 05:15] LABS: Anion Gap 20.8 (5-19); Potassium 4.8 mmol/L (3.5-5.1)
[2023-08-19 06:45] LABS: Glucose Point of Care 235 mg/dL (70-110)
[2023-08-19 06:53] LABS: THYROID PEROXIDASE ANTIBODIES 1 IU/mL (<9)
[2023-08-19] MEDS: budesonide 0.5 mg/2 mL Neb INHALATION ×2 (07:49→20:33)
[2023-08-19] MEDS: insulin lispro 100 unit/1 mL SUBCUT ×4 (08:15→21:46)
[2023-08-19] MEDS: isosorbide mononitrate ER 60 mg Tablet PO (08:15)
[2023-08-19] MEDS: hyDRALAzine 50 mg Tablet PO ×3 (08:15→21:45)
[2023-08-19] MEDS: fluoxetine 20 mg Capsule PO (08:16)
[2023-08-19] MEDS: metoprolol tartrate 50 mg Tablet 25 MG PO ×2 (08:16→17:44)
[2023-08-19] MEDS: methylPREDNISolone sod succ 60 MG in water for injection-sterile 0.96 ML IVP ×2 (08:17→20:13)
--- NOTE | 2023-08-19 10:30 | PM.PN ---
Subjective Subjective: denies SOB , Medications: Reviewed: Yes Vitals/I&O/Wt Last Vital Signs Temp 97.6 F 08/19/23 07:42 Pulse 80 08/19/23 07:49 Resp 18 08/19/23 07:49 BP 190/80 08/19/23 09:20 Pulse Ox 95 08/19/23 07:49 O2 Del Method Nasal Cannula 08/19/23 07:49 O2 Flow Rate 1 08/19/23 07:49 08/18/23 08/19/23 08/19/23 22:59 06:59 14:59 Intake Total 220.96 / 1371.92 1188.333 / 2560.253 240.96 / 240.96 Output Total 425 / 425 250 / 675 Balance -204.04 / 946.92 938.333 / 1885.253 240.96 / 240.96 Weight last 48 hrs Weight 140.614 kg Physical Exam Narrative: awake ,alert , on 2L O2 HEENT + LE EDEMA Urinary Catheter Management: Juárez Latex Free: Cath Placed During This Visit: yes Reason for Continuing Indwelling Catheter: Accurate Measurement of Urinary Output in Critically Ill Patients Urinary Catheter Date of Insertion: 08/14/23 Urinary Catheter Time of Insertion: 23:40 Data 08/18/23 04:58 08/19/23 04:40 Micro: Microbiology 08/16/23 23:40 Urine Culture - Preliminary Urine,Clean Catch A&P Assessment and plan (1) CKD (chronic kidney disease) stage 3, GFR 30-59 ml/min: (2) ROSEMARIE (acute kidney injury): (3) Hyponatremia: Plan 1. Acute on chronic kidney disease: Patient's baseline creatinine is in the 1.5-1.9 range. Now has ROSEMARIE with a creatinine of 3.9-likely multifactorial due to recent use of antibiotics, prerenal from decreased p.o. intake in the setting of nausea vomiting, and also recent contrast exposure.no obstruction on US -switched IVFs to bicarb gtt -Strict intake and output, -Avoid further IV contrast studies. -Prior UA showed proteinuria with UPCR of more than 3 g, likely has nephrotic syndrome from diabetic nephropathy., Recheck urine analysis and UPCR, will also check GIFTY panel. Renal function worse with oliguria ,but stable electrolytes and stable O2 requirement , continue to monitor closely , Will assess daily for HD needs If has increased O2 reuirements , or electrolyte derangements , will inititate HD Ordered 1 dose IV Lasix today 2. History of hypertension: Blood pressure stable, hold ART inhibitors 3. Hyperkalemia: K 4.8 today, Should be on a low K diet 4. Hyponatremia: Sodium 127, suspect hypovolemic, onIVFs 5. Question diastolic CHF history: Prior echo showed ejection fraction of 55 to 60% 6. Anemia: Check iron studies, s/p BOUCHRA Patient evaluated using audiovisual cart. Time spent 40 minutes Attestations Medical Necessity Statement*: per medicine team Coding Level of Care Code Acute Code for Chg Fwd Diagnoses CKD (chronic kidney disease) stage 3, GFR 30-59 ml/min N18.30 ROSEMARIE (acute kidney injury) N17.9 Hyponatremia E87.1
[2023-08-19 10:55] LABS: Glucose Point of Care 319 mg/dL (70-110)
--- NOTE | 2023-08-19 10:59 | PM.DCS ---
Discharge Providers Date of Admission: 08/13/23 20:10 Date of Discharge: August 19, 2023 Attending Provider at Admission: Tom Styles MD Attending Provider at Discharge: Elroy Nava DO Primary Care Provider: PARAG Mensah Diagnoses at Discharge Discharge Diagnosis (1) CKD (chronic kidney disease) stage 3, GFR 30-59 ml/min: Status: Acute (2) ROSEMARIE (acute kidney injury): Status: Acute (3) Hyponatremia: Status: Acute Reason for Visit Reason for Visit: chest pain Brief History: 68-year-old lady with multiple comorbidities (obesity, chronic obstructive pulmonary disease on 2 L nasal cannula at home, type 2 diabetes mellitus on insulin, tension, positive GIFTY with polyarthralgia, history of irritable bowel syndrome possible gastroparesis, dietary noncompliance, chronic major depressive disorder, anxiety chronic back pain ) presented due to intractable nausea and vomiting for the past 3 days. So complained of worsening dyspnea and some mild chest discomfort. She had been diagnosed with COVID 2 weeks ago. Hospital Course Hospital Course In the emergency room, she was diagnosed with CHF and COPD. 08/13/2023: Patient suspected to have diabetic gastroparesis and patient was started on Reglan 5 mg 3 times daily, Zofran 8 mg every 6 hours as needed and Protonix 40 mg twice daily.? CTA showed no pulmonary embolus, suspected small airway disease, no consolidations suggestive of pneumonia, small bilateral pleural effusions.? Patient was treated for a CHF exacerbation as well as pneumonitis with fluid restriction, IV diuresis with Lasix 40 mg every 12 and Ceftin and Zithromax for pneumonitis. 08/14/2023: CT abdomen pelvis obtained.? No acute findings to explain nausea vomiting abdominal pain 08/15/2023: started steroids for cough, COPD exac in hopes of also treating n/v. 08/16/2023: No further vomiting.? Increase diet.? Worsening renal function, 2.0 to 3.5? Work up and consult renal. 08/17/2023: Pt c/o SOB, bloating and significant discomfort generally. c/o of abd discomfort unable to pass gas or have BM.? Consult with nephrology, was on telemedicine.? She recommended urgent dialysis and temporary dialysis catheter placement due to the patient's symptoms worsening of serum creatinine (3.9) as well as elevated potassium at 6.0. Unfortunately, patient experienced a procedural complication with excessive bleeding during attempt to place temporary dialysis catheter in right groin.? She was on Eliquis, and had received a dose that morning.. Patient received Factor Xa, 2 units FFP and 1 unit of PRBC's.? Due to patient's history of diastolic dysfunction the last unit of packed red blood cells was placed on hold. Was able to continue the bicarb drip overnight. 08/18/2023: Patient's urine output has picked up considerably.? Yesterday's urine output was 400 and already today it is 1000.? Reached out to nephrology to consider watchful waiting as the patient's creatinine has stabilized at 4. 08/18/2023: Exhausted sleeping a lot. Requirements of O2. Is becoming edematous in the upper extremities. A now up to 4.3. However, potassium stable at 4.8 on bicarb drip. [place] [facility] consideration was given to transfer patient to a tertiary care center where she can have a allergy team to see her, availability of dialysis catheter placement and other IV placements 13/06. Patient and family are agreeable. [facility] has excepted patient. I spoke with Rosario nurse practitioner with the hospitalist team. Dr. SHAW will be the admitting physician. Physical Exam Narrative: Morbidly obese white female in seen lying in bed mild distress. She is hot and uncomfortable but no shortness of breath or chest pain. Heart: Distant heart sounds regular rate and rhythm no loud murmur click gallop or rub lungs: Clear to auscultation however diffusely limited inspiration Abdomen: Morbidly obese soft mild diffuse tenderness hard to determine distention in morbidly obese abdomen, positive bowel sounds Extremities: non pitting edema is now progressed to the upper extremities. Skin: Pale warm and dry Urinary Catheter Management: Juárez Latex Free: Cath Placed During This Visit: yes Reason for Continuing Indwelling Catheter: Accurate Measurement of Urinary Output in Critically Ill Patients Urinary Catheter Date of Insertion: 08/14/23 Urinary Catheter Time of Insertion: 23:40 Discharge Data Studies Completed and Pending Completed Studies During Hospitalization Category Date Time Status CT abdomen pelvis wo con [id number] Routine Cat Scan 08/14/23 13:[address] angio chest PE protcl [id number] Stat Cat Scan 08/13/23 17:28 Completed XR chest 1V portable [id number] Stat Exams 08/13/23 16:40 Completed US renal BI* [id number] Routine Ultrasound 08/16/23 08:43 Completed Pending at discharge Category Date Time Status ABO/Rh Type Stat Lab 08/17/23 17:25 Results GIFTY Profile Rheumatology Routine Lab 08/16/23 18:20 Results Basic Metabolic Panel AM LABS Lab 08/20/23 04:00 Ordered Basic Metabolic Panel AM LABS Lab 08/21/23 04:00 Ordered CBC Auto Diff [Complete Blood Count w/Auto] Routine Lab 08/19/23 16:42 Ordered CMP [Comprehensive Metabolic Panel] Routine Lab 08/19/23 16:42 Ordered Complete Blood Count w/Auto AM LABS Lab 08/20/23 04:00 Ordered Complete Crossmatch Stat Lab 08/17/23 17:25 Results FFP [Frozen Plasma FZ <24 1st Cont] Routine Lab 08/17/23 17:25 Results Leukocyte Reduced RBC Stat Lab 08/17/23 17:25 Results Sputum Culture Routine Lab 08/14/23 06:42 Uncollected Type and Screen Stat Lab 08/17/23 17:25 Results Urine Culture Routine Lab 08/16/23 23:40 Results Radiology Impressions Chest X-Ray 08/13/23 16:40 IMPRESSION: Left basilar opacity as described above. Chest CTA 08/13/23 17:28 IMPRESSION: 1. No pulmonary embolus. 2. Geographic regions hypoattenuation throughout both lungs which can be seen in the setting of air trapping secondary to small airways disease. 3. Small bilateral pleural effusions. 4. No focal consolidation. Abdomen/Pelvis CT 08/14/23 13:00 IMPRESSION: No acute findings to account for abdominal pain. Laboratory Results WBC 10.52 10^3/uL (3.29-11.43) 08/18/23 04:58 RBC 2.66 10^6/uL (3.85-5.65) L 08/18/23 04:58 Hgb 7.60 g/dL (11.27-16.99) L 08/18/23 04:58 Hct 22.6 % (36-47) L 08/18/23 04:58 MCV 85.0 fl (85-98) 08/18/23 04:58 MCH 28.6 pg (27-33) 08/18/23 04:58 MCHC 33.6 g/dL (30-55) 08/18/23 04:58 RDW 13.0 % (12.1-15.1) 08/18/23 04:58 Plt Count 299 10^3/cmm (157-399) 08/18/23 04:58 MPV 10.3 fL (7.4-10.4) 08/18/23 04:58 Neut % (Auto) 94.8 % 08/18/23 04:58 Lymph % (Auto) 2.6 % 08/18/23 04:58 Blanco % (Auto) 1.9 % 08/18/23 04:58 Eos % (Auto) 0.0 % 08/18/23 04:58 Baso % (Auto) 0.1 % 08/18/23 04:58 Neut # (Auto) 9.98 10^3/uL (1.8-7.7) H 08/18/23 04:58 Lymph # (Auto) 0.3 10^3/uL (0.8-4.8) L 08/18/23 04:58 Blanco # (Auto) 0.2 10^3/uL (0.2-0.9) 08/18/23 04:58 Eos # (Auto) 0.0 10^3/uL (0.0-0.8) 08/18/23 04:58 Baso # (Auto) 0.0 10^3/uL (0.0-0.1) 08/18/23 04:58 Nucleated RBC % (auto) 0 % 08/18/23 04:58 Nucleated RBCs # 0.0 /100WBC 08/18/23 04:58 D-Dimer 1.30 ug/mLFEU (0-0.59) H 08/13/23 16:35 Sodium 127 mmol/L (136-145) L 08/19/23 04:40 Potassium 4.8 mmol/L (3.5-5.1) 08/19/23 04:40 Chloride 86 mmol/L (98-107) L 08/19/23 04:40 Carbon Dioxide 25 mmol/L (22-29) 08/19/23 04:40 Anion Gap 20.8 (5-19) H 08/19/23 04:40 BUN 59 mg/dL (8-23) H 08/19/23 04:40 Creatinine 4.3 mg/dL (0.5-0.9) H 08/19/23 04:40 GFR Calculation 10.3 mL/min (90-130) L 08/19/23 04:40 Glucose 202 mg/dL (65-115) H 08/19/23 04:40 POC Glucose 319 mg/dL (70-110) H 08/19/23 10:45 Calculated Osmolality 286 mOsm/kg (285-295) 08/19/23 04:40 Calcium 8.4 mg/dL (8.5-10.5) L 08/19/23 04:40 Magnesium 2.4 mg/dL (1.7-2.3) H 08/18/23 04:58 Total Bilirubin 0.2 mg/dL (0.15-1.2) 08/17/23 19:05 AST 20 U/L (0-32) 08/17/23 19:05 ALT 17 U/L (0-33) 08/17/23 19:05 Alkaline Phosphatase 70 U/L (35-105) 08/17/23 19:05 Troponin T Baseline 53 ng/L (0-10) H 08/13/23 16:35 Troponin T 120 Minute 52.33 ng/L (0-10) H 08/13/23 18:37 Delta Troponin T -0.67 ABS# (0-10) L 08/13/23 18:37 Troponin T Hi Sens 6Hr 56.10 ng/L (0-10) H 08/13/23 22:28 Troponin T Hi Sens 6Hr Delta 3.10 ng/L (0-12) 08/13/23 22:28 NT-Pro-B Natriuret Pep 3708 pg/mL (0-125) H 08/13/23 16:35 Total Protein 6.0 g/dL (6.6-8.7) L 08/17/23 19:05 Albumin 3.6 g/dL (3.5-5.2) 08/17/23 19:05 Globulin 2.4 g/dL (1.3-4.6) 08/17/23 19:05 Urine Color Yellow (Yellow) 08/16/23 23:40 Urine Appearance Cloudy (CLEAR) A 08/16/23 23:40 Urine pH 5 (5-7) 08/16/23 23:40 Ur Specific [place] 1.020 (1.005-1.030) 08/16/23 23:40 Urine Protein 2+ (Negative) H 08/16/23 23:40 Urine Glucose (UA) Norm (Normal) 08/16/23 23:40 Urine Ketones Negative (Negative) 08/16/23 23:40 Urine Blood 3+ (Negative) H 08/16/23 23:40 Urine Nitrate Negative (Negative) 08/16/23 23:40 Urine Bilirubin Neg (Negative) 08/16/23 23:40 Urine Urobilinogen Neg mg/dL (Negative) 08/16/23 23:40 Ur Leukocyte Esterase 2+ (Negative) H 08/16/23 23:40 Urine RBC 25-40 /hpf (0-2) H 08/16/23 23:40 Urine WBC 15-25 /hpf (0-5) H 08/16/23 23:40 Ur Squamous Epith Cells 0-4 /hpf (0-5) H 08/16/23 23:40 Ur Transition Epith Cell 5-10 /hpf 08/16/23 23:40 Amorphous Sediment Not Reportable 08/16/23 23:40 Urine Bacteria 2+ /hpf (NONE) H 08/16/23 23:40 Hyaline Casts 0-4 /lpf H 08/16/23 23:40 Urine Mucus 1+ /hpf 08/16/23 23:40 U Random Total Protein 104 mg/dL 08/16/23 23:40 Ur Random Sodium 11 mmol/L 08/18/23 13:22 Ur Random Potassium 54 mmol/L 08/18/23 13:22 Ur Random Chloride < 10 mmol/L 08/18/23 13:22 Urine Creatinine 121 mg/dL (28-217) 08/16/23 23:40 ISELA-1 Antibody <1.0 neg AI (<1.0 NEG) 08/16/23 18:20 SS-A Antibody <1.0 neg AI (<1.0 NEG) 08/16/23 18:20 SS-B Antibody <1.0 neg AI (<1.0 NEG) 08/16/23 18:20 Sm (Bender) Antibody <1.0 neg AI (<1.0 NEG) 08/16/23 18:20 ADJUSTMENT SUPERVISOR Antibody <1.0 neg AI (<1.0 NEG) 08/16/23 18:20 Scl-70 Antibody <1.0 neg AI (<1.0 NEG) 08/16/23 18:20 Centromere B Antibody <1.0 neg AI (<1.0 NEG) 08/16/23 18:20 Thyroid Peroxidase Ab 1 IU/mL (<9) 08/16/23 18:20 H. pylori IgG Antibody Negative (Negative) 08/14/23 04:58 Hep Bs Antigen Non-reactive (Nonreactive) 08/17/23 06:20 Hep Bs Antibody 4.5 (11.5-1000) L 08/17/23 06:20 Hep B Core Total Ab Non-reactive (Nonreactive) 08/17/23 06:20 MRSA (PCR) Not detected (NOT DETECTED) 08/14/23 01:38 Blood Type B Positive 08/17/23 17:25 Rho(D) Type Positive 08/17/23 17:25 Antibody Screen Negative 08/17/23 17:25 Crossmatch See Detail 08/17/23 17:25 Vitals Last Vital Signs Temp 97.6 F 08/19/23 07:42 Pulse 80 08/19/23 07:49 Resp 18 08/19/23 07:49 BP 190/80 08/19/23 09:20 Pulse Ox 95 08/19/23 07:49 O2 Del Method Nasal Cannula 08/19/23 07:49 O2 Flow Rate 1 08/19/23 07:49 Discharge Plan Discharge Patient Disposition: Home Condition: Stable Prescriptions: No Action (DME) wheelchair cushions See Rx Instructions .Route .MEDSUPPLY Qty: 1 0RF Rx Instructions: As directed (DME) Alternating pressure mattress and pressure pump See Rx Instructions .Route .MEDSUPPLY Qty: 1 0RF Rx Instructions: As directed leflunomide 20 mg tablet 20 mg PO DAILY Qty: 30 3RF hydroxychloroquine 200 mg tablet 200 mg PO BID Qty: 180 1RF Eliquis 5 mg tablet 5 mg PO BID@0900,2100 Qty: 60 2RF dicyclomine 20 mg tablet 20 mg PO QID Qty: 120 2RF hydroxyzine pamoate 50 mg capsule 50 mg PO TID Qty: 90 2RF insulin degludec [Tresiba FlexTouch U-200] 200 unit/mL (3 mL) insulin pen 80 unit SUBCUT DAILY Qty: 18 2RF insulin lispro [Humalog KwikPen Insulin] 100 unit/mL insulin pen See Rx Instructions SUBCUT .COMPLEX Qty: 15 0RF Rx Instructions: 6-27U SUBCUT three times daily subcutaneously; per sliding scale triamcinolone acetonide 0.1 % ointment 1 applic TOPICAL DAILY PRN (Reason: itching) Qty: 30 0RF Rx Instructions: skin arms, legs torso (DME) lancing device with lancets [Replenish Delica Plus Lanc Dev] Kit See Rx Instructions .Route Qty: 1 0RF Rx Instructions: As directed (DME) lancets [AdmitOne Securityuch Delica Lancets] 33 gauge misc See Rx Instructions .Route Qty: 100 5RF Rx Instructions: three times day (DME) diabetic shoes with inserts See Rx Instructions .Route .MEDSUPPLY Qty: 1 0RF Rx Instructions: As directed (DME) Motorized lift chair See Rx Instructions .Route .MEDSUPPLY Qty: 1 0RF Rx Instructions: As directed (DME) OneTouch Ultra Test Strip See Rx Instructions .Route Qty: 100 5RF Rx Instructions: 1 strip three time day clindamycin phosphate 1 % lotion See Rx Instructions .ROUTE .COMPLEX Qty: 60 1RF Dose Instruction: APPLY TOPICALLY TWICE DAILY NEEDED FOR SKIN IRRITATION Rx Instructions: APPLY TOPICALLY TWICE DAILY NEEDED FOR SKIN IRRITATION torsemide 100 mg tablet 100 mg PO DAILY Qty: 90 3RF Rx Instructions: Dose increased potassium chloride 20 mEq tablet extended release 30 meq PO DAILY Qty: 135 3RF nitroglycerin [Nitrostat] 0.4 mg tablet, sublingual 0.4 mg SUBLINGUAL Q5M PRN (Reason: Chest Pain) Qty: 50 3RF Rx Instructions: do not exceed 3 doses per episode (DME) blood-glucose meter [Tursiop TechnologiesTouch Ultra2 Meter] Kit See Rx Instructions .Route Qty: 1 0RF Rx Instructions: As directed (DME) pen needle, diabetic [TechLITE Pen Needle] 31 gauge x 5/16 needle See Rx Instructions .ROUTE .MEDSUPPLY Qty: 200 5RF Rx Instructions: use 4 times day hydralazine 50 mg tablet 50 mg PO TID Qty: 90 1RF Rx Instructions: MUST have follow-up for further refills isosorbide mononitrate 60 mg tablet extended release 24 hr 60 mg PO DAILY Qty: 90 0RF Rx Instructions: 04/13/23 YOU NEED TO MAKE AN APPOINTMENT TO BE SEEN PRIOR TO ANY MORE REFILLS ondansetron 8 mg tablet,disintegrating 8 mg PO Q8H PRN (Reason: nausea and vomiting) Qty: 7 0RF albuterol sulfate [ProAir HFA] 90 mcg/actuation HFA aerosol inhaler 2 puff INHALATION Q4H PRN (Reason: shortness of breath or wheezing) Qty: 8.5 0RF cholecalciferol (vitamin D3) [Vitamin D3] 125 mcg (5,000 unit) Tablet 125 mcg PO DAILY acetaminophen 325 mg tablet 325 - 650 mg PO Q6H PRN (Reason: Pain) Vitamin B-12 50 mcg Tablet 50 mcg PO DAILY Qty: 0 metoprolol tartrate 50 mg tablet 25 mg PO BID fluoxetine 40 mg capsule 40 mg PO BEDTIME fluoxetine 20 mg capsule 20 mg PO DAILY Entresto 24-26 mg tablet 1 tab PO DAILY magnesium oxide 400 mg magnesium tablet 400 mg PO DAILY PRN (Reason: Muscle Spasm) Discharge Orders: Transfer Out of Facility (Order); Ordered 08/19/23 Ordered By: Elroy Nava Referrals: Lorenzo Muller FNP-C [Primary Care Provider] - 08/25/23 3:40 pm Discharge Attestations Time Spent in Discharge Care*: greater than 30 min Status at Discharge: Cognitive status at discharge: cognitively intact, Behavioral status at discharge: cooperative, Quality Metrics Clinical Quality Measures [ No reported AMI, CVA or VTE this stay] Coding Level of Care Code Acute Code for Chg Fwd Diagnoses CKD (chronic kidney disease) stage 3, GFR 30-59 ml/min N18.30 ROSEMARIE (acute kidney injury) N17.9 Hyponatremia E87.1
[2023-08-19] MEDS: LORazepam 0.5 mg Tablet PO (13:17)
[2023-08-19] MEDS: FUROsemide 10 mg/mL SDV 10mL 60 MG IVP (13:23)
--- NOTE | 2023-08-19 14:22 | XR_ITS ---
WS: [id number] Portable AP semiupright chest, 08/19/2023 Clinical Data: post PICC insertion Comparison: Portable chest, 08/13/2023 Findings: The right PICC line ends in the superior vena cava. The pulmonary vascularity is increased. The heart is enlarged. There are bilateral pleural effusions. Impression: Satisfactory insertion of right PICC line.
[2023-08-19 14:25] LABS: COMPLEMENT, TOTAL (CH50) >60 U/mL (31-60)
--- NOTE | 2023-08-19 15:30 | PC.NURSE ---
Dual lumen PICC placed to right basilic vein. Referred for PICC placement due to poor peripheral access. Risks and benefits discussed and informed consent obtained from patient. Right arm assessed with right basilic vein measuring 5 mm, straight, and apparent best choice for placement. Using sterile technique and MST, right basilic vein accessed x 1 stick. Mid-arm circumference measured 10 cm from right AC 45 cm. Trimmed cath 48 cm with 2 cm external length noted. CXR shows tip in SVC, in good position for use per radiologist. Line secured with stat-lock. Insertion site covered with Biopatch, gauze, and TSM. Pressure dressing applied due to history of patient bleeding. Report given to charge nurseAmanda.
[2023-08-19] MEDS: saline nasal spray 44mL Btl 1 SPRAY NASAL (16:18)
[2023-08-19] MEDS: oxyCODONE 5 mg IR Tab/Cap PO ×2 (16:19→22:46)
[2023-08-19 16:20] LABS: COMPLEMENT COMPONENT C3C 125 mg/dL (83-193); COMPLEMENT COMPONENT C4C 29 mg/dL (15-57)
[2023-08-19 16:45] LABS: ANA PATTERN Cytoplasmic; ANA SCREEN, IFA POSITIVE (NEGATIVE)
[2023-08-19 17:28] LABS: Glucose Point of Care 305 mg/dL (70-110)
[2023-08-19] MEDS: hydroxychloroquine 200 mg Tablet PO (17:44)
[2023-08-19 17:54] LABS: Alanine Aminotransferase 17 U/L (0-33); Albumin Level 3.9 g/dL (3.5-5.2); Alkaline Phosphatase 59 U/L (35-105); Blood Urea Nitrogen 66 mg/dL (8-23); Calcium 8.2 mg/dL (8.5-10.5); Carbon Dioxide 32 mmol/L (22-29); Chloride 83 mmol/L (98-107); Globulin 2.3 g/dL (1.3-4.6); Glomerular Filtration Rate 10.3 mL/min (90-130); Glucose 247 mg/dL (65-115); Osmolality Calculated 287 mOsm/kg (285-295); Sodium 125 mmol/L (136-145); Total Bilirubin 0.3 mg/dL (0.15-1.2); Total Protein 6.2 g/dL (6.6-8.7)
[2023-08-19 17:57] LABS: Lymphocytes # 0.3 10^3/uL (0.8-4.8); Lymphocytes % 3.7 %; Mean Corpuscular HGB Conc 34.1 g/dL (30-55); Mean Corpuscular Hemoglobin 28.9 pg (27-33); Mean Corpuscular Volume 84.6 fl (85-98); Mean Platelet Volume 10.5 fL (7.4-10.4); Monocytes # 0.5 10^3/uL (0.2-0.9); Neutrophils # 8.14 10^3/uL (1.8-7.7); Neutrophils % 90.3 %; Nucleated Red Blood Cells % 0 %; Platelet Count 243 10^3/cmm (157-399); Red Blood Count 2.46 10^6/uL (3.85-5.65); Red Cell Distribution Width 13.1 % (12.1-15.1); White Blood Count 9.01 10^3/uL (3.29-11.43)
[2023-08-19 18:07] LABS: Anion Gap 14.9 (5-19); Aspartate Amino Transferase 22 U/L (0-32); Potassium 4.9 mmol/L (3.5-5.1)
[2023-08-19 18:25] LABS: Hematocrit 20.8 % (36-47)
[2023-08-19 21:03] LABS: Glucose Point of Care 321 mg/dL (70-110)
[2023-08-19] MEDS: fluoxetine 20 mg Capsule 40 MG PO (21:45)
[2023-08-19] MEDS: hyDROXYzine 25 mg Capsule PO (21:45)
[2023-08-19] MEDS: insulin glargine 100 units/1 mL 32 UNIT SUBCUT (21:46)
[2023-08-20] VITALS (13 sets, daily range): BP systolic 175–196; BP diastolic 67–97; PULSE 70–97; RESP 16–20; TEMP 36.5–36.9; O2SAT 96–100
[2023-08-20] MEDS: albumin 25 G/100 ML BAG 60 G IV (01:20)
[2023-08-20] MEDS: ipratropium-albuterol 3 mL Neb INHALATION ×2 (02:34→07:52)
[2023-08-20] MEDS: sodium bicarbonate 150 MEQ in dextrose 5% 1,000 ML 100 MEQ IV (04:01)
[2023-08-20] MEDS: ALPRAZolam 0.5 mg Tablet 1 MG PO (04:18)
[2023-08-20 05:18] LABS: Basophils % 0.1 %; Lymphocytes # 0.3 10^3/uL (0.8-4.8); Mean Corpuscular HGB Conc 33.7 g/dL (30-55); Mean Corpuscular Hemoglobin 28.8 pg (27-33); Mean Corpuscular Volume 85.6 fl (85-98); Mean Platelet Volume 10.5 fL (7.4-10.4); Monocytes # 0.4 10^3/uL (0.2-0.9); Monocytes % 4.7 %; Neutrophils # 7.27 10^3/uL (1.8-7.7); Neutrophils % 89.8 %; Nucleated Red Blood Cells % 0 %; Platelet Count 239 10^3/cmm (157-399); Red Blood Count 2.36 10^6/uL (3.85-5.65); White Blood Count 8.09 10^3/uL (3.29-11.43)
[2023-08-20 05:22] LABS: Hematocrit 20.2 % (36-47)
[2023-08-20 05:54] LABS: Anion Gap 15.2 (5-19); Blood Urea Nitrogen 70 mg/dL (8-23); Calcium 8.2 mg/dL (8.5-10.5); Carbon Dioxide 34 mmol/L (22-29); Chloride 83 mmol/L (98-107); Glomerular Filtration Rate 10.9 mL/min (90-130); Glucose 284 mg/dL (65-115); Osmolality Calculated 297 mOsm/kg (285-295); Potassium 4.2 mmol/L (3.5-5.1); Sodium 128 mmol/L (136-145)
[2023-08-20] MEDS: oxyCODONE 5 mg IR Tab/Cap PO (06:04)
[2023-08-20 06:44] LABS: Glucose Point of Care 338 mg/dL (70-110)
[2023-08-20] MEDS: budesonide 0.5 mg/2 mL Neb INHALATION (07:52)
--- NOTE | 2023-08-20 08:11 | PC.NURSE ---
Called report to Steve Gruber RN at 08/20/23 at 0811
[2023-08-20] MEDS: insulin lispro 100 unit/1 mL SUBCUT (09:23)
[2023-08-20] MEDS: fluoxetine 20 mg Capsule PO (09:24)
[2023-08-20] MEDS: isosorbide mononitrate ER 60 mg Tablet PO (09:24)
[2023-08-20] MEDS: hydroxychloroquine 200 mg Tablet PO (09:24)
[2023-08-20] MEDS: methylPREDNISolone sod succ 60 MG in water for injection-sterile 0.96 ML 11.52 MG IVP (09:24)
[2023-08-20] MEDS: hyDRALAzine 50 mg Tablet PO (09:24)
[2023-08-20] MEDS: metoprolol tartrate 50 mg Tablet 25 MG PO (09:26)
--- NOTE | 2023-08-20 10:30 | PC.NURSE ---
Patient left for [facility] approximately [phone]
[2023-08-29 21:30] LABS: DNA AB (DS) CRITHIDIA,IFA NEGATIVE (NEGATIVE)
--- NOTE | 2023-09-06 00:02 | PC.NURSE ---
On 08/17/[address] Scott ordered to have Narcan kept at the patient bedside. Order was placed and 1 vial was pulled from the pyxis and placed in a bag and kept at the bedside.
== END 2023-08-20 09:40 | disposition skilled nursing facility (03) | DRG 291 ==
LOC: ER 20:08 → MEDSURG 21:06
PROVIDERS: Family Medicine; Hospitalist; Student in an Organized Health Care Education/Training Program; Admitting Provider Student in an Organized Health Care Education/Training Program; Emergency Provider Emergency Medicine; PCP Nurse Practitioner; Visit Provider Internal Medicine
DX: I13.0 Hypertensive heart and chronic kidney disease with heart failure and stage 1 through stage 4 chronic kidney disease, or unspecified chronic kidney disease (principal); I50.33 Acute on chronic diastolic (congestive) heart failure; J18.9 Pneumonia, unspecified organism; N17.9 Acute kidney failure, unspecified; E87.1 Hypo-osmolality and hyponatremia; Z68.43 Body mass index [BMI] 50.0-59.9, adult; J44.1 Chronic obstructive pulmonary disease with (acute) exacerbation; J44.0 Chronic obstructive pulmonary disease with (acute) lower respiratory infection; N18.30 Chronic kidney disease, stage 3 unspecified; E11.22 Type 2 diabetes mellitus with diabetic chronic kidney disease; E11.21 Type 2 diabetes mellitus with diabetic nephropathy; E11.40 Type 2 diabetes mellitus with diabetic neuropathy, unspecified; E11.43 Type 2 diabetes mellitus with diabetic autonomic (poly)neuropathy; K31.84 Gastroparesis; E66.01 Morbid (severe) obesity due to excess calories; Z99.81 Dependence on supplemental oxygen; M06.00 Rheumatoid arthritis without rheumatoid factor, unspecified site; Z91.119 Patient's noncompliance with dietary regimen due to unspecified reason; F32.9 Major depressive disorder, single episode, unspecified; F41.9 Anxiety disorder, unspecified; G89.29 Other chronic pain; M54.9 Dorsalgia, unspecified; Z86.16 Personal history of COVID-19; Z79.01 Long term (current) use of anticoagulants; Z79.4 Long term (current) use of insulin; M79.7 Fibromyalgia; G47.33 Obstructive sleep apnea (adult) (pediatric); D63.1 Anemia in chronic kidney disease; E87.5 Hyperkalemia; K58.9 Irritable bowel syndrome, unspecified; R09.02 Hypoxemia; E86.1 Hypovolemia; G31.84 Mild cognitive impairment of uncertain or unknown etiology; D47.2 Monoclonal gammopathy; Z87.891 Personal history of nicotine dependence
CPT/HCPCS: 36415; 36416; 36430; 36573; 51702; 71045; 71275; 74176; 76770; 80048; 80053; 81001; 81003; 82436; 82575; 82962; 83735; 83880; 84133; 84156; 84300; 84484; 85014; 85018; 85025; 85378; 86160; 86162; 86235; 86255; 86376; 86403; 86677; 86705; 86706; 86850; 86900; 86920; 86927; 87086; 87340; 87449; 87641; 93005; 94640; 96372; 96374; 96375; 96376; 99285; C9113; J0456; J0696; J1815; J1940; J2060; J2405; J2765; J2930; J3010; J7030; J7050; J7070; J7169; J7626; P9016; P9017; P9046; Q3014; Q9967

== ENCOUNTER 2023-09-08 12:23 | Inpatient (IN) | payer MEDICARE, MEDICAID, SELFPAY ==
[2023-09-08] VITALS (10 sets, daily range): BP systolic 139–185; BP diastolic 50–106; PULSE 70–98; RESP 15–36; TEMP 37–38.5; O2SAT 91–100; BMI 61.9
--- NOTE | 2023-09-08 12:24 | XR_ITS ---
WS: [id number] Portable AP upright chest, 09/08/2023 Clinical Data: dyspnea/cough Comparison: Portable chest, 08/19/2023 Findings: The heart remains enlarged. There are bilateral patchy opacities throughout both lungs whic h may represent pulmonary edema and/or diffuse pneumonia. No nodules or masses are seen. There is a m onitor lead on the left chest wall. No pneumothorax is seen Impression: 1. Bilateral patchy opacities in both lungs which may represent pulmonary edema and/or diffuse pneumo katelynn. 2. Cardiomegaly.
--- NOTE | 2023-09-08 12:24 | W.ED.SOB ---
HPI - SOB/Dyspnea General: Chief Complaint: Shortness of Breath/Dyspnea Stated Complaint: Shortness of breath Time Seen by Provider: 09/08/23 12:23 Source: patient Mode of arrival: ambulatory History of Present Illness: HPI Narrative: 68-year-old female history of COPD and CHF was admitted last month on the at that time she had a acute kidney injury fluid overload and COPD exacerbation her kidney function worsened and they attempted to place a temporary dialysis catheter complication that she was still on Eliquis she had bleeding ultimately was transferred to [place]. She states she was discharged from there yesterday they had offered her the option evidently of going to a jail or continuing at the hospital she also states she was on antibiotics although she cannot tell me exactly what for. She refused to go to jail went home is not able to manage things increasingly short of breath. She desatted while they are moving from the ambulance cot to our exam gurney but on 2 L her sats improved briefly was on 3 L her sats improved to the mid and upper 90s she was titrated back down to 2 and is tolerated well she complains of fluid overload and a rash on the pannus. She has some generalized chest pressure that is not new. MD elicited complaint: shortness of breath Pertinent past history: COPD and congestive heart failure Onset (ago): week(s) Timing: constant Exacerbating factors: exertion and coughing Relieving factors: oxygen and rest Associated symptoms: Deny abdominal pain, chest pain or fever(s) Review of Systems Const: Denies: fever(s) or chills Card: Denies: chest pain Resp: Denies: dyspnea GI: Denies: abdominal pain : Denies: dysuria, urinary frequency or urinary urgency Musc: Denies: neck pain or back pain Skin/Breast: Denies: rash [facility] PFSH: Medical History Anxiety Atrial flutter Atypical chest pain Back pain Benign hypertension Chest pain Chronic back pain Chronic major depressive disorder Chronic obstructive pulmonary disease, unspecified CKD (chronic kidney disease) Coronary artery fistula Diabetic gastroparesis Diabetic neuropathy associated with type 2 diabetes mellitus Dietary noncompliance Diverticulosis Environmental and seasonal allergies Essential tremor Fibromyalgia Fracture of distal end of fibula High risk medication use Hip pain, left Hypoxia IBS (irritable bowel syndrome) IgM monoclonal gammopathy of uncertain significance Inflammatory arthritis Left lumbar radiculopathy Major depression Mild cognitive impairment with memory loss Mobility impaired Near syncope Noncompliance with diabetes treatment Not consistent with diet Obesity Peripheral neuropathy Polyarthralgia Positive GIFTY (antinuclear antibody) Seronegative rheumatoid arthritis of both hands Severe obstructive sleep apnea Syncope and collapse Type 2 diabetes mellitus with diabetic chronic kidney disease Urinary disorder Vitamin D deficiency Surgical History History of section 4 times History of cholecystectomy (1993) History of hysterectomy (1997) with BSO History of left heart catheterization (2017) No significant obstructive coronary disease History of tonsillectomy Hx of colonoscopy Hx of esophagogastroduodenoscopy Family History Brother Bleeding disorder CAD (coronary artery disease) Father CAD (coronary artery disease) Chronic kidney disease (CKD) Mother CAD (coronary artery disease) Cancer Diabetes Family/Other Cancer Other CHF (congestive heart failure) Heart disease Hypertension Denies family history of Clotting disorder Dementia Suicide Anesthesia complication Lung disease Stroke Social History Smoking and tobacco/nicotine status: former use of tobacco/nicotine Quit status (tobacco/nicotine): has quit using Year quit tobacco: 1990 Former quit date comment: smoked 20+ years Second hand smoke exposure: No Alcohol intake: never Substance/Drug Use: never Adopted: No Caregiver/support person: Yes Lives independently: No Household members: children and other Details: Son, sometimes grandson Housing: House Marital status: Single service: No Current occupational status: disabled Do you think of yourself as: Straight/Heterosexual Current gender identity: Female Physical Exam Const: GENERAL APPEARANCE: cooperative ORIENTATION/CONSCIOUSNESS: Yes awake, Yes oriented to person, Yes oriented to place and Yes oriented to time HENMT: COMMON NORMALS: normocephalic, atraumatic and hearing grossly normal bilaterally HEAD & SCALP: normocephalic and atraumatic Resp: EFFORT & INSPECTION: Yes uses accessory muscles AUSCULTATION: rhonchi, wheezes and diminished lung sounds Cardio: COMMON NORMALS: regular rate, regular rhythm and No murmurs present (Cardio) RATE: regular rate RHYTHM: regular rhythm GI: COMMON NORMALS: Soft to palpation and No hepatosplenomegaly present AUSCULTATION: Yes normoactive bowel sounds PALPATION: Yes Soft to palpation, No Tenderness to palpation present (GI), No Guarding due to palpation present (GI) and Yes No hepatosplenomegaly present Extremity: COMMON NORMALS: normal to inspection, capillary refill normal and no calf tenderness GENERAL: Yes edema (2+) Neuro: SENSORIUM/ORIENTATION: Yes oriented to person, Yes oriented to place and Yes oriented to time Skin: COMMON NORMALS: no rashes or lesions noted GENERAL SKIN EXAM: no rashes or lesions noted Course Vital Signs: Vital signs: Vital Signs Temperature 98.6 F 09/09/23 04:00 Pulse Rate 73 09/09/23 05:38 Respiratory Rate 21 H 09/09/23 04:00 Blood Pressure 167/72 09/09/23 04:00 Pulse Oximetry 99 09/09/23 04:00 Oxygen Delivery Me thod Nasal Cannula 09/09/23 04:00 Oxygen Flow Rate 3 09/08/23 15:00 Fraction of Inspir ed Oxygen 40 09/09/23 02:02 MDM - SOB/Dyspnea Medical Decision Making Did attempt to get records from [facility] to review what had been done there. After several hours those are still not forthcoming. She does appear to be fluid overloaded and suspect she has an underlying pneumonia she did spike a temperature here. Cultures done. She has no leukocytosis her hemoglobin is 8.6 her creatinine has improved to 1.5. Discussed with patient that she likely will need to be admitted. We still need to review medical records and they become available. She will need further diuresis as well as continue course antibiotics. Discussed with hospitalist orders written Medical Records I reviewed the patient's medical records. Lab Data I reviewed the patient's lab results. 09/09/23 04:41 09/09/23 04:41 Labs/Radiology: Laboratory Results WBC 8.23 10^3/uL (3.29-11.43) 09/08/23 12:56 RBC 3.04 10^6/uL (3.85-5.65) L 09/08/23 12:56 Hgb 8.60 g/dL (11.27-16.99) L 09/08/23 12:56 Hct 27.7 % (36-47) L 09/08/23 12:56 MCV 91.1 fl (85-98) 09/08/23 12:56 MCH 28.3 pg (27-33) 09/08/23 12:56 MCHC 31.0 g/dL (30-55) 09/08/23 12:56 RDW 15.1 % (12.1-15.1) 09/08/23 12:56 Plt Count 167 10^3/cmm (157-399) 09/08/23 12:56 MPV 11.2 fL (7.4-10.4) H 09/08/23 12:56 Neut % (Auto) 80.4 % 09/08/23 12:56 Lymph % (Auto) 8.0 % 09/08/23 12:56 [place] % (Auto) 7.0 % 09/08/23 12:56 Eos % (Auto) 3.2 % 09/08/23 12:56 Baso % (Auto) 1.0 % 09/08/23 12:56 Neut # (Auto) 6.62 10^3/uL (1.8-7.7) 09/08/23 12:56 Lymph # (Auto) 0.7 10^3/uL (0.8-4.8) L 09/08/23 12:56 [place] # (Auto) 0.6 10^3/uL (0.2-0.9) 09/08/23 12:56 Eos # (Auto) 0.3 10^3/uL (0.0-0.8) 09/08/23 12:56 Baso # (Auto) 0.1 10^3/uL (0.0-0.1) 09/08/23 12:56 Nucleated RBC % (auto) 0 % 09/08/23 12:56 Nucleated RBCs # 0.0 /100WBC 09/08/23 12:56 Specimen Type Arterial 09/08/23 12:41 Sample Site Radial, right 09/08/23 12:41 ABG pH 7.42 (7.35-7.45) 09/08/23 12:41 ABG pCO2 49.4 mmHg (35-45) H 09/08/23 12:41 ABG pO2 71.4 mmHg (80.0-100.0) L 09/08/23 12:41 ABG HCO3 32.1 mmol/L (22-26) H 09/08/23 12:41 ABG O2 Saturation 96.7 09/08/23 12:41 ABG Base Excess 6.8 mmol/L (-2.0-2.0) H 09/08/23 12:41 Sharad Test Pos 09/08/23 12:41 A-a O2 Gradient 2.2 mmHg (5-10) L 09/08/23 12:41 Hematocrit 26.1 % (37-47) L 09/08/23 12:41 Hgb O2 Saturation 93.4 % (95-100) L 09/08/23 12:41 Carboxyhemoglobin 2.5 %THgb (0.4-20.1) 09/08/23 12:41 Methemoglobin 1.0 % (0.4-1.5) 09/08/23 12:41 Total Hemoglobin 8.5 g/dL (12-16) L 09/08/23 12:41 Sodium 145.0 mmol/L (131-143) H 09/08/23 12:41 Potassium 3.5 mmol/L (3.5-5.0) 09/08/23 12:41 Glucose 186.0 mg/dL (70-115) H 09/08/23 12:41 Ionized Calcium 1.3 mmol/L (1.1-1.4) 09/08/23 12:41 O2 Liters/Min 2.0 % 09/08/23 12:41 Microbiology Supervisor ID Anurag 09/08/23 12:41 Sodium 143 mmol/L (136-145) 09/08/23 12:56 Potassium 3.8 mmol/L (3.5-5.1) 09/08/23 12:56 Chloride 99 mmol/L (98-107) 09/08/23 12:56 Carbon Dioxide 32 mmol/L (22-29) H 09/08/23 12:56 Anion Gap 15.8 (5-19) 09/08/23 12:56 BUN 50 mg/dL (8-23) H 09/08/23 12:56 Creatinine 1.5 mg/dL (0.5-0.9) H 09/08/23 12:56 GFR Calculation 34.7 mL/min (90-130) L 09/08/23 12:56 Glucose 184 mg/dL (65-115) H 09/08/23 12:56 Estimat Average Glucose 128 09/08/23 12:56 Hemoglobin A1c 6.1 % (4.0-6.0) H 09/08/23 12:56 Calculated Osmolality 314 mOsm/kg (285-295) H 09/08/23 12:56 Calcium 10.0 mg/dL (8.5-10.5) 09/08/23 12:56 Total Bilirubin 0.6 mg/dL (0.15-1.2) 09/08/23 12:56 AST 16 U/L (0-32) 09/08/23 12:56 ALT 16 U/L (0-33) 09/08/23 12:56 Alkaline Phosphatase 75 U/L (35-105) 09/08/23 12:56 NT-Pro-B Natriuret Pep 8703 pg/mL (0-125) H 09/08/23 12:56 Total Protein 7.3 g/dL (6.6-8.7) 09/08/23 12:56 Albumin 4.5 g/dL (3.5-5.2) 09/08/23 12:56 Globulin 2.8 g/dL (1.3-4.6) 09/08/23 12:56 Vitamin B12 1045 pg/mL (232-1245) 09/08/23 12:56 Procalcitonin 0.16 ng/mL (0-0.5) 09/08/23 12:56 TSH 3.92 uIU/mL (0.27-4.20) 09/08/23 12:56 Coronavirus 229E (PCR) Not detected (NOT DETECT) 09/08/23 15:14 Influenza Type A Ag negative (Negative) 09/08/23 15:14 Influenza Type B Ag negative (Negative) 09/08/23 15:14 SARS-CoV-2 (PCR) Not detected (NOT DETECT) 09/08/23 15:14 All radiology interpretation(s) finalized by discharge Discharge Plan Discharge Patient Disposition: Admitted As Inpatient Admit Provider: Yoselin Arthur Clinical Impression: Acute exacerbation of CHF (congestive heart failure), Anemia, CKD (chronic kidney disease) stage 3, GFR 30-59 ml/min, Intermittent atrial fibrillation, Diabetic foot, Lymph edema, Pneumonitis Condition: Stable Coding Level of Care Code ED Milling Machine Operator for Danielg Roxanna
--- NOTE | 2023-09-08 12:29 | ECG_ITS ---
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 Measurements Intervals [place] Rate: 93 P: 254 LA: 204 QRS: -85 QRSD: 150 T: 70 QT: 396 QTc: 494 Interpretive Statements SINUS RHYTHM LEFT AXIS DEVIATION [QRS AXIS < -30] RIGHT BUNDLE BRANCH BLOCK [120+ ms QRS DURATION, UPRIGHT V1, 40+ ms S IN I/aVL/V4/V5/V6] POSSIBLE ANTERIOR MYOCARDIAL INFARCTION , OF INDETERMINATE AGE [30 ms Q WAVE IN V3/V4, OR R < 0.2 mV IN V4] Compared to ECG 08/13/2023 18:34:09 Left-axis deviation now present Myocardial infarct finding now present Left anterior fascicular block no longer present Electronically Signed On 09-09-2023 1:05:16 CDT by Sammy Aquino M.D. [id number]
[2023-09-08 12:54] LABS: ABG PCO2 49.4 mmHg (35-45); ABG PH Result 7.42 (7.35-7.45); Alveolar-Arterial Oxygen Gradi 2.2 mmHg (5-10); Arterial Blood Gas Hematocrit 26.1 % (37-47); Base Excess ABG 6.8 mmol/L (-2.0-2.0); Blood Gas Allen Test Pos; Blood Gas Sample Site Radial, right; Blood Gas Sample Type Arterial; Carboxyhemoglobin 2.5 %THgb (0.4-20.1); HCO3 ABG 32.1 mmol/L (22-26); HGB O2 Sat 93.4 % (95-100); Ionized Calcium Level - ABG 1.3 mmol/L (1.1-1.4); Oxygen Saturation ABG 96.7; PO2 ABG 71.4 mmHg (80.0-100.0); Potassium Level - ABG 3.5 mmol/L (3.5-5.0); Total Hemoglobin 8.5 g/dL (12-16)
[2023-09-08 13:05] LABS: Basophils # 0.1 10^3/uL (0.0-0.1); Eosinophils # 0.3 10^3/uL (0.0-0.8); Eosinophils % 3.2 %; Hematocrit 27.7 % (36-47); Lymphocytes # 0.7 10^3/uL (0.8-4.8); Mean Corpuscular Hemoglobin 28.3 pg (27-33); Mean Corpuscular Volume 91.1 fl (85-98); Mean Platelet Volume 11.2 fL (7.4-10.4); Monocytes # 0.6 10^3/uL (0.2-0.9); Neutrophils # 6.62 10^3/uL (1.8-7.7); Neutrophils % 80.4 %; Nucleated Red Blood Cells % 0 %; Platelet Count 167 10^3/cmm (157-399); Red Blood Count 3.04 10^6/uL (3.85-5.65); Red Cell Distribution Width 15.1 % (12.1-15.1); White Blood Count 8.23 10^3/uL (3.29-11.43)
[2023-09-08 13:31] LABS: Alanine Aminotransferase 16 U/L (0-33); Albumin Level 4.5 g/dL (3.5-5.2); Alkaline Phosphatase 75 U/L (35-105); Aspartate Amino Transferase 16 U/L (0-32); Blood Urea Nitrogen 50 mg/dL (8-23); Carbon Dioxide 32 mmol/L (22-29); Chloride 99 mmol/L (98-107); Globulin 2.8 g/dL (1.3-4.6); Glomerular Filtration Rate 34.7 mL/min (90-130); Glucose 184 mg/dL (65-115); NT Pro B Type Natriuretic Pept 8703 pg/mL (0-125); Osmolality Calculated 314 mOsm/kg (285-295); Sodium 143 mmol/L (136-145); Total Bilirubin 0.6 mg/dL (0.15-1.2); Total Protein 7.3 g/dL (6.6-8.7)
[2023-09-08 13:33] LABS: Anion Gap 15.8 (5-19); Potassium 3.8 mmol/L (3.5-5.1)
[2023-09-08] MEDS: metoprolol tartrate 25 mg Tablet PO (13:41)
[2023-09-08] MEDS: hyDRALAzine 20 mg/mL INJ 1 mL IVP (13:42)
[2023-09-08] MEDS: isosorbide mononitrate ER 60 mg Tablet PO (13:42)
[2023-09-08] MEDS: FUROsemide 10 mg/mL SDV 10mL 100 MG IVP (13:42)
[2023-09-08] MEDS: hyDRALAzine 25 mg Tablet PO (13:42)
[2023-09-08 15:46] LABS: Influenza A by IFA negative (Negative); Influenza B by IFA negative (Negative)
[2023-09-08 17:09] LABS: Adenovirus Not Detected (NOT DETECT); Chlamydia Pneumoniae Not Detected (NOT DETECT); Coronavirus 229E,HKU1,NL63,OC4 Not Detected (NOT DETECT); Human Metapneumovirus Not Detected (NOT DETECT); Human Rhinovirus/Enterovirus Detected (NOT DETECT); Influenza A Not Detected (NOT DETECT); Influenza A H1 Not Detected (NOT DETECT); Influenza A H1-2009 Not Detected (NOT DETECT); Influenza A H3 Not Detected (NOT DETECT); Influenza B Not Detected (NOT DETECT); Mycoplasma Pneumoniae Not Detected (NOT DETECT); Parainfluenza Virus Type 1 Not Detected (NOT DETECT); Parainfluenza Virus Type 2 Not Detected (NOT DETECT); Parainfluenza Virus Type 3 Not Detected (NOT DETECT); Parainfluenza Virus Type 4 Not Detected (NOT DETECT); Respiratory Syncytial Virus A Not Detected (NOT DETECT); Respiratory Syncytial Virus B Not Detected (NOT DETECT); SARS-COV-2 Not Detected (NOT DETECT)
[2023-09-08 18:02] LABS: Human Metapneumovirus Not Detected (NOT DETECT); Human Rhinovirus/Enterovirus Detected (NOT DETECT); Results from GEN
[2023-09-08 18:22] LABS: Add Urine Microscopic? YES; Bilirubin Urine Neg (Negative); Blood Urine Neg (Negative); Glucose Urine UA Norm (Normal); Ketones Urine 1+ (Negative); Leukocyte Esterase Urine Negative (Negative); Nitrate Urine Negative (Negative); Protein Urine Neg (Negative); Urine Appearance SL Hazy (CLEAR); Urine Color Colorless (Yellow); Urobilinogen Urine Norm (Negative); pH Urine 7 (5-7)
[2023-09-08 18:35] LABS: Add Urine Culture? No; RBC Urine 0-4 /hpf (0-2); WBC Urine RARE /hpf (0-5)
--- NOTE | 2023-09-08 18:38 | P.HP_ITS ---
Providers/Chief Complaint Admitting Physician: Yoselin Arthur MD Primary Care Provider: Lorenzo Muller, BRIAN-C Chief Complaint: Shortness of breath History of Present Illness Jennifer Novak is a 68 year old female with history of congestive heart failure, chronic kidney disease, hypoxia, morbid obesity, she was recently discharged from [facility] yesterday patient refused going to intermediate, presented today with worsening of shortness of breath inability to walk because of swelling of her legs. In the ER she has been diagnosed with acute on chronic hypoxia, congestive heart failure exacerbation. At the time of evaluation she is requiring 5 L, she was discharged on 2 L from [facility]. Patient does not want to be transferred stating that she lives in [place] and she does not want to go to [place] at this point. She is stating that she was getting IV antibiotics for infection of her abdominal wall likely cellulitis. Review of Systems Const: Denies: fever(s) Eyes: Denies: change in vision ENMT: Denies: throat pain Card: Reports: swelling of feet/ankles Resp: Reports: dyspnea GI: Denies: abdominal pain : Denies: flank pain Musc: Reports: back pain and extremity pain Skin/Breast: Reports: rash and skin swelling Neuro: Denies: headache(s) Psych: Reports: anxiety Medications/Allergies Home Medications Medication Instructions Recorded Confirmed Last Taken Type cholecalciferol (vitamin D3) 125 125 mcg PO DAILY 05/14/21 09/08/23 09/08/23 History mcg (5,000 unit) tablet (Vitamin D3) acetaminophen 325 mg tablet 325 - 650 mg PO Q6H PRN Pain 12/13/21 09/08/23 Unknown History wheelchair cushions #1 ea 01/12/22 09/08/23 Unknown Rx clindamycin phosphate 1 % lotion See Rx Instructions .Route 02/03/22 09/08/23 09/07/23 Rx .COMPLEX #60 mL Alternating pressure mattress and #1 ea 02/12/22 09/08/23 Unknown Rx pressure pump cyanocobalamin (vitamin B-12) 50 50 mcg PO DAILY ##0 04/12/22 09/08/23 09/07/23 History mcg tablet (Vitamin B-12) metoprolol tartrate 50 mg tablet 25 mg PO BID 07/10/1209/08/23 09/07/23 History potassium chloride 20 mEq 30 meq PO DAILY #135 tabs 07/21/22 09/08/23 09/07/23 Rx tablet,extended release torsemide 100 mg tablet 100 mg PO DAILY #90 tabs 07/21/22 09/08/23 09/07/23 Rx nitroglycerin 0.4 mg sublingual 0.4 mg sublingual Q5M PRN Chest 09/20/22 09/08/23 Unknown Rx tablet (Nitrostat) Pain #50 tabs blood-glucose meter (OneTouch #1 ea 09/29/22 09/08/23 Unknown Rx Ultra2 Meter kit) pen needle, diabetic 31 gauge x #200 ea 01/11/23 09/08/23 Unknown Rx 04/05 (TechLITE Pen Needle) hydralazine 50 mg tablet 50 mg PO TID #90 tabs 01/27/23 09/08/23 09/07/23 Rx Motorized lift chair #1 ea 02/25/23 09/08/23 Unknown Rx diabetic shoes with inserts #1 ea 02/25/23 09/08/23 Unknown Rx blood sugar diagnostic (OneTouch #100 ea 03/02/23 09/08/23 Unknown Rx Ultra Test strips) isosorbide mononitrate 60 mg 60 mg PO DAILY #90 tabs 04/13/23 09/08/23 09/07/23 Rx tablet,extended release 24 hr hydroxychloroquine 200 mg tablet 200 mg PO BID #180 tabs 05/02/23 09/08/23 09/07/23 Rx dicyclomine 20 mg tablet 20 mg PO QID #120 tabs 05/10/23 09/08/23 09/07/23 Rx hydroxyzine pamoate 50 mg capsule 50 mg PO TID #90 caps 05/10/23 09/08/23 09/07/23 Rx insulin degludec 200 unit/mL (3 80 unit (0.4 mL) SUBCUT DAILY #18 05/10/23 09/08/23 09/08/23 Rx mL) subcutaneous pen (Tresiba mL FlexTouch U-200 insulin) insulin lispro 100 unit/mL See Rx Instructions SUBCUT 05/10/23 09/08/23 09/08/23 Rx subcutaneous pen (Humalog KwikPen .COMPLEX #15 mL (U-100) Insulin) triamcinolone acetonide 0.1 % 1 applic topical DAILY PRN itching 05/10/23 09/08/23 Unknown Rx topical ointment #30 grams lancets 33 gauge (Silent Herdsmanuch Delica #100 ea 05/13/23 09/08/23 Unknown Rx Lancets) lancing device with lancets kit #1 ea 05/13/23 09/08/23 Unknown Rx (Sophie [employer] Juliet Delica Plus Lancing Device kit) ondansetron 8 mg disintegrating 8 mg PO Q8H PRN nausea and 08/11/23 09/08/23 09/08/23 Rx tablet vomiting #7 tabs albuterol sulfate 90 mcg/actuation 2 puff inhalation Q4H PRN 08/12/23 09/08/23 08/13/23 20:00 Rx aerosol inhaler (ProAir HFA) shortness of breath or wheezing #8.5 grams fluoxetine 20 mg capsule 20 mg PO DAILY 08/13/23 09/08/23 09/07/23 History fluoxetine 40 mg capsule 40 mg PO BEDTIME 08/13/23 09/08/23 09/07/23 History magnesium oxide 400 mg PO DAILY PRN Muscle Spasm 08/13/23 09/08/23 09/07/23 History sacubitril 24 mg-valsartan 26 mg 1 tab PO DAILY 08/13/23 09/08/23 09/07/23 History tablet (Entresto) amoxicillin 500 mg-potassium 1 tab PO BID 09/08/23 09/08/23 09/07/23 History clavulanate 125 mg tablet bumetanide 2 mg tablet 2 mg PO BID 09/08/23 09/08/23 09/07/23 History doxycycline hyclate 100 mg capsule 100 mg PO BID 09/08/23 09/08/23 09/07/23 History oxycodone 5 mg tablet 2.5 - 5 mg PO Q8H PRN Pain 09/08/23 09/08/23 Unknown History pantoprazole 40 mg tablet,delayed 40 mg PO BID 09/08/23 09/08/23 09/07/23 History release rosuvastatin 10 mg tablet 10 mg PO QPM 09/08/23 09/08/23 09/07/23 History Allergies Allergy/AdvReac Type Severity Reaction Status Date / Time acetaminophen [From [place]] Allergy Unknown Verified 09/08/23 13:15 bacitracin Allergy ADR-Nausea Verified 09/08/23 13:15 codeine Allergy ADR-Nausea Verified 09/08/23 13:15 hydrocodone [From [place]] Allergy Unknown Verified 09/08/23 13:15 Latex, Natural Rubber Allergy Unknown Verified 09/08/23 13:15 morphine Allergy ADR-Itching Verified 09/08/23 13:15 neomycin Allergy ALGY-Rash Verified 09/08/23 13:15 [From Neosporin ([id number])] oxycodone Allergy Unknown Verified 09/08/23 13:15 polymyxin B Allergy ALGY-Rash Verified 09/08/23 13:15 [From Neosporin ([id number])] Sulfa (Sulfonamide Allergy ADR-Nausea Verified 09/08/23 13:15 Antibiotics) sulfamethoxazole Allergy Unknown Verified 09/08/23 13:15 [From Bactrim] trimethoprim [From Bactrim] Allergy Unknown Verified 09/08/23 13:15 spironolactone AdvReac Severe temporary Uncoded 07/28/23 15:55 blindness PFSH Acute PFSH: Medical History Anxiety Atrial flutter Atypical chest pain Back pain Benign hypertension Chest pain Chronic back pain Chronic major depressive disorder Chronic obstructive pulmonary disease, unspecified CKD (chronic kidney disease) Coronary artery fistula Diabetic gastroparesis Diabetic neuropathy associated with type 2 diabetes mellitus Dietary noncompliance Diverticulosis Environmental and seasonal allergies Essential tremor Fibromyalgia Fracture of distal end of fibula High risk medication use Hip pain, left Hypoxia IBS (irritable bowel syndrome) IgM monoclonal gammopathy of uncertain significance Inflammatory arthritis Left lumbar radiculopathy Major depression Mild cognitive impairment with memory loss Mobility impaired Near syncope Noncompliance with diabetes treatment Not consistent with diet Obesity Peripheral neuropathy Polyarthralgia Positive GIFTY (antinuclear antibody) Seronegative rheumatoid arthritis of both hands Severe obstructive sleep apnea Syncope and collapse Type 2 diabetes mellitus with diabetic chronic kidney disease Urinary disorder Vitamin D deficiency Surgical History History of section 4 times History of cholecystectomy (1993) History of hysterectomy (1997) with BSO History of left heart catheterization (2018) No significant obstructive coronary disease History of tonsillectomy Hx of colonoscopy Hx of esophagogastroduodenoscopy Family History Brother Bleeding disorder CAD (coronary artery disease) Father CAD (coronary artery disease) Chronic kidney disease (CKD) Mother CAD (coronary artery disease) Cancer Diabetes Family/Other Cancer Other CHF (congestive heart failure) Heart disease Hypertension Denies family history of Clotting disorder Dementia Suicide Anesthesia complication Lung disease Stroke Social History Smoking and tobacco/nicotine status: former use of tobacco/nicotine Quit status (tobacco/nicotine): has quit using Year quit tobacco: 1990 Former quit date comment: smoked 20+ years Second hand smoke exposure: No Alcohol intake: never Substance/Drug Use: never Adopted: No Caregiver/support person: Yes Lives independently: No Household members: children and other Details: Son, sometimes grandson Housing: House Marital status: Single service: No Current occupational status: disabled Do you think of yourself as: Straight/Heterosexual Current gender identity: Female Vitals/I&O/Wt Last Vital Signs Temp 101.3 F H 09/08/23 12:23 Pulse 75 09/08/23 17:00 Resp 20 H 09/08/23 17:00 BP 139/50 09/08/23 15:00 Pulse Ox 97 09/08/23 17:00 O2 Del Method Nasal Cannula 09/08/23 17:00 O2 Flow Rate 3 09/08/23 15:00 Weight last 48 hrs Weight 158.757 kg Physical Exam Narrative: Patient is awake and alert Currently on 5 L Clinical signs of fluid overload Lower extremity edema 3+ edema Abdomen distended, abdominal pannus with no significant cellulitis Skin is indurated I do not see any discharge or hyperemia Intertrigo Nonfocal neuro exam No signs of meningitis Data 09/08/23 12:56 09/08/23 12:56 Micro: Microbiology 09/08/23 15:34 Blood Culture - Preliminary Blood SPECIMEN COLLECTED 09/08/23 15:30 Blood Culture - Preliminary Blood SPECIMEN COLLECTED A&P Assessment and plan (1) Situational anxiety: (2) Benign hypertension: (3) CKD (chronic kidney disease) stage 3, GFR 30-59 ml/min: (4) Chronic diastolic heart failure: (5) Dietary noncompliance: (6) Monoclonal gammopathy: (7) Edema, peripheral: (8) Peripheral neuropathy: (9) Acute exacerbation of CHF (congestive heart failure): Plan Acute diastolic CHF aspiration We will request records from [facility] I will put her on IV diuretics Clinical signs of fluid overload Previous echo showed EF 50 to 55% with trivial pericardial effusion Acute on chronic hypoxia Patient was using 2 L at home currently on 5 L Likely related to fluid overload We will request COVID PCR and respiratory panel Chronic kidney disease creatinine seems around baseline Lower extremity edema causing generalized weakness and fall at home We will request PT patient will likely need intermediate Abdominal pannus with intertrigo Add nystatin powder Continue recent hospitalization and febrile event I will put her on broad- spectrum antibiotics for now Hospital-acquired pneumonia We will use anti-MRSA antipseudomonal coverage Patient is full code Cardiac diet We will request PT Likely intermediate Attestations Medical Necessity Statement*: More than 2 midnights anticipated Diagnoses Situational anxiety F41.8 Benign hypertension I10 CKD (chronic kidney disease) stage 3, GFR 30-59 ml/min N18.30 Chronic diastolic heart failure I50.32 Dietary noncompliance Z91.11 Monoclonal gammopathy D47.2 Edema, peripheral R60.9 Peripheral neuropathy G62.9 Acute exacerbation of CHF (congestive heart failure) I50.9
[2023-09-08] MEDS: ondansetron 2 mg/ML SDV 2 mL 4 MG IVP (19:33)
[2023-09-08] MEDS: cefepime 2,000 MG in sodium chloride 0.9% (plus) 50 ML 100 MG IV (19:33)
[2023-09-08] MEDS: oxyCODONE 5 mg IR Tab/Cap PO (19:34)
[2023-09-08 20:16] LABS: Estmated Average Glucose 128; Hemoglobin A1C 6.1 % (4.0-6.0); Procalcitonin 0.16 ng/mL (0-0.5); Thyroid Stimulating Hormone 3.92 uIU/mL (0.27-4.20); Vitamin B12 1045 pg/mL (232-1245)
[2023-09-08] MEDS: vancomycin 2,000 MG/400 ML PIGGYBACK 200 MG IV (20:30)
[2023-09-08] MEDS: heparin 5,000 unit/mL INJ 1 mL 5000 UNIT SUBCUT (20:30)
[2023-09-08] MEDS: metroNIDAZOLE 500 MG Tablet PO (20:31)
[2023-09-08 21:43] LABS: Glucose Point of Care 174 mg/dL (70-110)
[2023-09-09] VITALS (18 sets, daily range): BP systolic 151–175; BP diastolic 59–72; PULSE 68–78; RESP 15–26; TEMP 36.9–37.3; O2SAT 95–100
[2023-09-09 05:08] LABS: Basophils # 0.1 10^3/uL (0.0-0.1); Basophils % 1.2 %; Eosinophils # 0.3 10^3/uL (0.0-0.8); Eosinophils % 5.6 %; Lymphocytes # 0.8 10^3/uL (0.8-4.8); Lymphocytes % 12.9 %; Mean Corpuscular HGB Conc 30.4 g/dL (30-55); Mean Corpuscular Hemoglobin 28.1 pg (27-33); Mean Corpuscular Volume 92.3 fl (85-98); Mean Platelet Volume 11.6 fL (7.4-10.4); Monocytes # 0.6 10^3/uL (0.2-0.9); Monocytes % 9.9 %; Neutrophils # 4.11 10^3/uL (1.8-7.7); Neutrophils % 70.1 %; Nucleated Red Blood Cells % 0 %; Platelet Count 143 10^3/cmm (157-399); Red Cell Distribution Width 15.2 % (12.1-15.1); White Blood Count 5.87 10^3/uL (3.29-11.43)
[2023-09-09 05:22] LABS: Anion Gap 13.2 (5-19); Blood Urea Nitrogen 51 mg/dL (8-23); C Reactive Protein 48.9 mg/L (0.0-4.9); Calcium 9.7 mg/dL (8.5-10.5); Carbon Dioxide 32 mmol/L (22-29); Chloride 105 mmol/L (98-107); Glomerular Filtration Rate 28.2 mL/min (90-130); Glucose 116 mg/dL (65-115); Osmolality Calculated 317 mOsm/kg (285-295); Phosphorus 3.9 mg/dL (2.5-4.5); Potassium 4.2 mmol/L (3.5-5.1); Sodium 146 mmol/L (136-145)
[2023-09-09 06:39] LABS: Glucose Point of Care 105 mg/dL (70-110)
--- NOTE | 2023-09-09 08:44 | PM.PN ---
Subjective Subjective: Patient stating that she is feeling better today Drop in hemoglobin noted H&H reviewed Hospital records received from [facility] I have requested for discharge summary H&P reviewed Patient had EGD as well which showed gastritis She suffered from ATN with underlying chronic kidney disease stage V Med rec is pending She takes Eliquis for factor V Leiden mutation Vitals/I&O/Wt Last Vital Signs Temp 98.6 F 09/09/23 04:00 Pulse 70 09/09/23 08:00 Resp 26 H 09/09/23 08:00 BP 159/65 09/09/23 08:00 Pulse Ox 98 09/09/23 08:00 O2 Del Method Nasal Cannula 09/09/23 08:00 O2 Flow Rate 3 09/09/23 07:57 FiO2 40 09/09/23 02:02 09/08/23 09/09/23 09/09/23 22:59 06:59 14:59 Intake Total 450 / 450 200 / 650 Output Total 800 / 800 Balance 450 / 450 -600 / -150 Weight last 48 hrs Weight 166.967 kg Weight 158.757 kg Physical Exam Narrative: Signs of fluid load present Abdominal pannus with intertrigo Pleasant cooperative Currently on 3 L cannula Pleasant cooperative Lower extremity edema Distended abdomen Morbid obesity nonfocal neuro exam Venous stasis dermatitis Urinary Catheter Management: Juárez: Cath Placed During This Visit: yes Reason for Continuing Indwelling Catheter: Accurate Measurement of Urinary Output in Critically Ill Patients Urinary Catheter Date of Insertion: 09/08/23 Data 09/09/23 04:41 09/09/23 04:41 Micro: Microbiology 09/08/23 15:34 Blood Culture - Preliminary Blood SPECIMEN COLLECTED 09/08/23 15:30 Blood Culture - Preliminary Blood SPECIMEN COLLECTED A&P Assessment and plan (1) Acute exacerbation of CHF (congestive heart failure): (2) Acute on chronic renal failure: (3) Situational anxiety: (4) Chronic diastolic heart failure: (5) Dietary noncompliance: (6) Monoclonal gammopathy: (7) Anemia: (8) Lymph edema: (9) Hospital-acquired pneumonia: Plan Acute diastolic CHF exacerbation Adequate urine output with IV Lasix Continue IV Lasix for today Monitor output with Juárez catheter for now Acute on chronic hypoxia Currently requiring 3 L Use BiPAP overnight Endorsing feeling better Hospital-acquired pneumonia Continue antibiotic antipseudomonal coverage Acute on chronic kidney disease patient developed ATN with underlying chronic kidney stage V as per records from [facility] Lower extremity edema with underlying lymphedema Will need PT evaluation and [facility] placement Patient has factor V Leyden mutation takes Eliquis considering drop in hemoglobin I would hold off on any anticoagulating agent for now, she had EGD which showed gastritis Cardiac diet Patient will stay until Tuesday for placement Attestations Medical Necessity Statement*: Continue medical management Diagnoses Acute exacerbation of CHF (congestive heart failure) I50.9 Acute on chronic renal failure N17.9; N18.9 Situational anxiety F41.8 Chronic diastolic heart failure I50.32 Dietary noncompliance Z91.11 Monoclonal gammopathy D47.2 Anemia D64.9 Lymph edema I89.0 Hospital-acquired pneumonia J18.9; Y95
[2023-09-09] MEDS: metroNIDAZOLE 500 MG Tablet PO ×3 (09:00→21:01)
[2023-09-09] MEDS: potassium chloride ER 20 mEq Tablet 40 MEQ PO (09:00)
[2023-09-09] MEDS: isosorbide mononitrate ER 60 mg Tablet PO (09:00)
[2023-09-09] MEDS: sennosides-docusate Tablet 1 TAB PO (09:00)
[2023-09-09] MEDS: metoprolol tartrate 50 mg Tablet 25 MG PO ×2 (09:00→18:01)
[2023-09-09] MEDS: pantoprazole DR 40 mg Tablet PO ×2 (09:00→18:01)
[2023-09-09 09:14] LABS: Hematocrit 24.2 % (36-47)
--- NOTE | 2023-09-09 09:17 | PC.CHAP ---
Pastoral Care Encounter/Spiritual Assessment Type of Contact [] Declined stamper blocker visit [] Patient/Family/Request visit [] Outpatient visit [] Follow-up visit [] Physician referral [] Code/Alert [x] Routine visit [] Staff referral [] Actively dying [] Patient sleeping [] Family support [] [] Out of room [] Palliative care [] [] Receiving care in room [] Pre-surgical visit [] Trauma [] Long length of stay [] ICU visit [] Other: Relational/Emotional Strength [x] Patient feels connected with others/family/visitors/staff [] Distress [] Loneliness/isolation [] Abandonment Spirituality of Patient [x] Person of Basia [] Attends Advent of their Basia [x] Believes in Prayer [] Reads Bible or Buddhist materials [] There are Spiritual issues to be addressed Chief Of Production Interventions [x] Prayer [x] Active listening [] Non-anxious presence [x] Spiritual/emotional support [] Crisis/trauma care [] Spiritual counseling [] Bereavement support [] Provided bereavement packet [] Provided Bible/devotional materials [] Provided toy/stuffed animal, coloring book to patient or family member [] Provided Communion [] Anointing/[place] [] Salvation [] Completed spiritual assessment [] Other: Impact on Illness or Injury [] Angry [] Fearful [] Anxious [] Often cries [] Exhaustion [] Unable to work [] Unable to attend pentecostalism [] Unable to walk/stand [] Unable to read [] Unable to drive [] Unable to eat/drink [] Unable to sleep [] Unable to be with family [] Patient intubated [] Other: Summary Time spent with patient 5 min
[2023-09-09] MEDS: vancomycin 1,500 MG/300 ML PIGGYBACK 200 MG IV (11:15)
[2023-09-09 11:16] LABS: Glucose Point of Care 165 mg/dL (70-110)
[2023-09-09] MEDS: nystatin powder 15 gm Btl 1 APPLIC TOPICAL ×2 (11:16→18:09)
[2023-09-09] MEDS: insulin lispro 100 unit/1 mL SUBCUT ×2 (11:36→18:07)
--- NOTE | 2023-09-09 11:44 | PC.SOCIAL ---
IMM Update pg 2 of IMM updated and reviewed w/ patient. Copy provided and Copy dated, initialed and placed in chart.
[2023-09-09] MEDS: ipratropium-albuterol 3 mL Neb INHALATION ×2 (12:50→19:41)
--- NOTE | 2023-09-09 13:23 | PC.NURSE ---
Patient has temperature of 99.2 and is complaining of headache. Tylenol given.
[2023-09-09] MEDS: acetaminophen 500 mg Tablet PO (13:31)
[2023-09-09 16:57] LABS: Glucose Point of Care 167 mg/dL (70-110)
[2023-09-09] MEDS: cefepime 2,000 MG in sodium chloride 0.9% (plus) 50 ML 100 MG IV (20:12)
[2023-09-09 20:49] LABS: Glucose Point of Care 161 mg/dL (70-110)
[2023-09-09] MEDS: FUROsemide 10 mg/mL SDV 10mL 60 MG IVP (21:00)
--- NOTE | 2023-09-09 21:49 | PC.NURSE ---
Patient c/o being anxious and claustrophia while wearing her bipap and refusing to wear it. Informed Dr Campos and received onetime order Xanax 0.5mg PO and to ask patient to try the bipap again. RBVO
[2023-09-09] MEDS: ALPRAZolam 0.5 mg Tablet PO (22:39)
[2023-09-10] VITALS (22 sets, daily range): BP systolic 168–188; BP diastolic 67–88; PULSE 64–81; RESP 15–25; TEMP 36.8–37.3; O2SAT 65–100
--- NOTE | 2023-09-10 01:33 | PC.NURSE ---
pt complaining of a raw and sore throat. physcian called with complaint, cepacol ordered and given.
[2023-09-10] MEDS: cetylpyridinium Lozenge 1 EACH MUCOUS MEM ×2 (01:36→21:00)
[2023-09-10] MEDS: ipratropium-albuterol 3 mL Neb INHALATION ×3 (01:46→21:56)
[2023-09-10 02:30] LABS: Basophils # 0.1 10^3/uL (0.0-0.1); Basophils % 1.2 %; Eosinophils # 0.4 10^3/uL (0.0-0.8); Eosinophils % 7.2 %; Hematocrit 23.4 % (36-47); Lymphocytes # 0.8 10^3/uL (0.8-4.8); Lymphocytes % 14.4 %; Mean Corpuscular HGB Conc 30.8 g/dL (30-55); Mean Corpuscular Hemoglobin 28.3 pg (27-33); Mean Corpuscular Volume 92.1 fl (85-98); Mean Platelet Volume 11.2 fL (7.4-10.4); Monocytes # 0.5 10^3/uL (0.2-0.9); Monocytes % 9.1 %; Neutrophils # 3.86 10^3/uL (1.8-7.7); Neutrophils % 67.7 %; Nucleated Red Blood Cells % 0 %; Platelet Count 158 10^3/cmm (157-399); Red Blood Count 2.54 10^6/uL (3.85-5.65); Red Cell Distribution Width 15.1 % (12.1-15.1)
[2023-09-10 03:00] LABS: Anion Gap 13.3 (5-19); Blood Urea Nitrogen 54 mg/dL (8-23); Calcium 9.3 mg/dL (8.5-10.5); Carbon Dioxide 32 mmol/L (22-29); Chloride 103 mmol/L (98-107); Glomerular Filtration Rate 24.9 mL/min (90-130); Glucose 152 mg/dL (65-115); Osmolality Calculated 316 mOsm/kg (285-295); Potassium 4.3 mmol/L (3.5-5.1); Sodium 144 mmol/L (136-145)
[2023-09-10] MEDS: vancomycin 1,500 MG/300 ML PIGGYBACK 200 MG IV (04:21)
[2023-09-10 06:33] LABS: Glucose Point of Care 152 mg/dL (70-110)
[2023-09-10] MEDS: metroNIDAZOLE 500 MG Tablet PO ×3 (08:51→21:31)
[2023-09-10] MEDS: sennosides-docusate Tablet 1 TAB PO (08:51)
[2023-09-10] MEDS: pantoprazole DR 40 mg Tablet PO ×2 (08:51→17:37)
[2023-09-10] MEDS: potassium chloride ER 20 mEq Tablet 40 MEQ PO (08:51)
[2023-09-10] MEDS: isosorbide mononitrate ER 60 mg Tablet PO (08:52)
[2023-09-10] MEDS: insulin lispro 100 unit/1 mL SUBCUT ×3 (08:54→17:36)
[2023-09-10] MEDS: metoprolol tartrate 50 mg Tablet 25 MG PO ×2 (08:54→17:37)
[2023-09-10] MEDS: nystatin powder 15 gm Btl 1 APPLIC TOPICAL ×2 (08:56→15:54)
[2023-09-10] MEDS: FUROsemide 10 mg/mL SDV 10mL 60 MG IVP ×2 (09:42→21:31)
--- NOTE | 2023-09-10 10:59 | PM.PN ---
Subjective Subjective: Hemoglobin 7.2 Will request 1 unit PRBC Off Eliquis Not a candidate for DVT prophylaxis Patient hemodynamically stable Patient is endorsed feeling better with use of BiPAP overnight Creatinine is 2.0 Please note her creatinine was 2.7 which was considered baseline/new baseline at the time of discharge from [facility] Vitals/I&O/Wt Last Vital Signs Temp 98.3 F 09/10/23 07:41 Pulse 81 09/10/23 10:10 Resp 20 H 09/10/23 07:57 BP 178/69 09/10/23 07:41 Pulse Ox 100 09/10/23 10:10 O2 Del Method Nasal Cannula 09/10/23 07:57 O2 Flow Rate 3 09/10/23 07:57 FiO2 40 09/10/23 10:10 09/09/23 09/10/23 09/10/23 22:59 06:59 14:59 Intake Total 350 / 830 300 / 1130 500 / 500 Output Total 700 / 700 525 / 1225 Balance -350 / 130 -225 / -95 500 / 500 Weight last 48 hrs Weight 166.967 kg Weight 158.757 kg Physical Exam Narrative: Patient is awake and alert Signs of fluid load improving Morbid obesity On 2 L nasal cannula which was transitioned to BiPAP later on Abdominal pannus with intertrigo Complaining of itching of skin GCS 15 Nonfocal neuro exam S1, S2 Urinary Catheter Management: Juárez: Cath Placed During This Visit: yes Reason for Continuing Indwelling Catheter: Acute Urinary Retention or Obstruction Urinary Catheter Date of Insertion: 09/08/23 Data 09/10/23 02:03 09/10/23 02:03 Micro: Microbiology 09/08/23 15:34 Blood Culture - Preliminary Blood NEGATIVE TO DATE 09/08/23 15:30 Blood Culture - Preliminary Blood NEGATIVE TO DATE A&P Assessment and plan (1) Hospital-acquired pneumonia: (2) Acute exacerbation of CHF (congestive heart failure): (3) Acute on chronic renal failure: (4) Situational anxiety: (5) Benign hypertension: (6) CKD (chronic kidney disease) stage 3, GFR 30-59 ml/min: (7) Chronic diastolic heart failure: (8) Frequent falls: (9) Muscle spasm: (10) Seronegative rheumatoid arthritis of both hands: (11) Diabetic foot: (12) Intermittent atrial fibrillation: (13) Edema, peripheral: (14) Peripheral neuropathy: Plan Acute diastolic congestive heart failure I would like to keep her hemoglobin above 8 Continue IV diuretics Continue Juárez catheter for accurate urine output measurement Abdominal pannus intertrigo continue broad-spectrum antibiotics We will add calamine lotion Intertrigo will be treated with nystatin powder No active cellulitis worsening noted Acute on chronic hypoxia related to hospital-acquired pneumonia and fluid overload Currently doing well on 2 L Uses 3 L at baseline I have asked patient to use BiPAP intermittently Hospital-acquired pneumonia currently on broad-spectrum antibiotic with antipseudomonal and anti-MRSA coverage Acute on chronic kidney disease stage 4-5 At [facility] her baseline creatinine was around 2.7 Monitor urine output and correlate with creatinine Adequate urine output so far Lower extremity edema is related to underlying lymphedema She may benefit from compression wraps PT elevation on daily basis Factor V Leyden mutation, not a candidate to be on Eliquis I will discontinue Eliquis she is not a good candidate requiring blood transfusion today Continue Protonix 40 mg p.o. twice daily Patient has had EGD and colonoscopy at [facility] which showed gastritis, H. pylori biopsy results are pending, Disposition: group home likely on Tuesday Cardiac consistent carb diet. Continue hypertensive regimen patient blood pressure today 178/60 mmhg Attestations Medical Necessity Statement*: Continue medical management Diagnoses Hospital-acquired pneumonia J18.9; Y95 Acute exacerbation of CHF (congestive heart failure) I50.9 Acute on chronic renal failure N17.9; N18.9 Situational anxiety F41.8 Benign hypertension I10 CKD (chronic kidney disease) stage 3, GFR 30-59 ml/min N18.30 Chronic diastolic heart failure I50.32 Frequent falls R29.6 Muscle spasm M62.838 Seronegative rheumatoid arthritis of both hands M06.041; M06.042 Diabetic foot E11.8 Intermittent atrial fibrillation I48.0 Edema, peripheral R60.9 Peripheral neuropathy G62.9
[2023-09-10 11:59] LABS: Glucose Point of Care 229 mg/dL (70-110)
[2023-09-10] MEDS: sodium chloride 0.9% (100 ml) 100 ML 50 ML (12:52)
[2023-09-10 16:24] LABS: Glucose Point of Care 240 mg/dL (70-110)
[2023-09-10 21:10] LABS: Glucose Point of Care 141 mg/dL (70-110)
[2023-09-10] MEDS: cefepime 2,000 MG in sodium chloride 0.9% (plus) 50 ML 100 MG IV (21:29)
[2023-09-10 22:10] LABS: Vancomycin Trough 34.1 ug/mL (10-15)
[2023-09-10] MEDS: ALPRAZolam 0.5 mg Tablet PO (22:44)
--- NOTE | 2023-09-10 22:54 | PC.NURSE ---
around 2200 lab called regarding a high vancomycin level. critical called to pharmacy. next dose to be skipped and it will be rescheduled per protocol per pharmacist.
[2023-09-11] VITALS (11 sets, daily range): BP systolic 157–190; BP diastolic 63–102; PULSE 70–82; RESP 13–20; TEMP 36.8–37.4; O2SAT 93–99
--- NOTE | 2023-09-11 01:18 | PC.PHAR ---
Pharmacokinetic dosing service Date: 09/11/23 Time: 118 Patient: Jennifer Novka Floor: 108-1 Weight: 166.967 Kilograms Vancomycin single level analysis: Current dose being given: 1500 mg Current dosing interval: 36 hrs Current infusion time (hrs): 1 Single level Trough Data: Trough level obtained: 34.1 mcg/ml Timing of trough - # of hrs before next dose: 0.50 Hrs Desired peak: 40 mcg/ml Desired trough: 15 mcg/ml Diagnosis: Relevant medical/social history: Cultures and sensitivities: Other labs: Estimated PK Parameters: New rate constant (tico): 0.015 hr-1 Half-life: 46.21 Hours Vd from levels: 150.27 Liters (0.7 L/kg) CLvanco=?? 2.254 L/hr Estimated New Dose and Interval Recommended dose: 3819.2 mg Recommended interval: 66.4 Hrs Patient response: Patient is responding to treatment [yes/no] wbc decreasing, S/SX reduced [yes/no] Renal function is stable/unstable Recommendations: Give Vancomycin 1500 mg q 36 hrs. Infuse over 1 hrs Expected Cpeak: 23.7 mcg/mL Expected Ctrough: 14.0 mcg/mL AUC 0-24 /SAADIA Data: SAADIA 0.5 mcg/mL:?? AUC/SAADIA:? 887.3 SAADIA 1.0 mcg/mL:?? AUC/SAADIA:? 443.7 Recommended labs and intervals: Measure Bun and Scr 3 times/week. Renal dosing of other antibiotics (review renal dosing of other medications and list guidelines here): Thank you for the consult, will continue to follow. Signature: Naya Mckinney [facility]
[2023-09-11 05:50] LABS: Basophils # 0.1 10^3/uL (0.0-0.1); Basophils % 1.5 %; Eosinophils # 0.4 10^3/uL (0.0-0.8); Eosinophils % 7.6 %; Hematocrit 26.3 % (36-47); Lymphocytes # 0.8 10^3/uL (0.8-4.8); Lymphocytes % 14.4 %; Mean Corpuscular HGB Conc 31.2 g/dL (30-55); Mean Corpuscular Hemoglobin 28.5 pg (27-33); Mean Corpuscular Volume 91.3 fl (85-98); Mean Platelet Volume 11.6 fL (7.4-10.4); Monocytes # 0.5 10^3/uL (0.2-0.9); Monocytes % 9.8 %; Neutrophils # 3.58 10^3/uL (1.8-7.7); Neutrophils % 66.3 %; Nucleated Red Blood Cells % 0 %; Platelet Count 174 10^3/cmm (157-399); Red Blood Count 2.88 10^6/uL (3.85-5.65); Red Cell Distribution Width 14.7 % (12.1-15.1)
[2023-09-11 06:12] LABS: Anion Gap 12.3 (5-19); Blood Urea Nitrogen 54 mg/dL (8-23); Calcium 9.3 mg/dL (8.5-10.5); Carbon Dioxide 31 mmol/L (22-29); Chloride 102 mmol/L (98-107); Glomerular Filtration Rate 28.2 mL/min (90-130); Glucose 146 mg/dL (65-115); Osmolality Calculated 309 mOsm/kg (285-295); Potassium 4.3 mmol/L (3.5-5.1); Sodium 141 mmol/L (136-145)
[2023-09-11 06:28] LABS: Glucose Point of Care 187 mg/dL (70-110)
--- NOTE | 2023-09-11 08:25 | PC.NURSE ---
Spoke with pt about the need to go to a SNF for rehab at discharge. Pt stated agreement and stated that she would like to proceed with getting her to a SNF for rehab and then go home.
[2023-09-11] MEDS: ipratropium-albuterol 3 mL Neb INHALATION (08:59)
[2023-09-11] MEDS: FUROsemide 10 mg/mL SDV 10mL 60 MG IVP ×2 (10:20→23:05)
[2023-09-11] MEDS: metroNIDAZOLE 500 MG Tablet PO ×3 (10:20→21:05)
[2023-09-11] MEDS: isosorbide mononitrate ER 60 mg Tablet PO (10:20)
[2023-09-11] MEDS: potassium chloride ER 20 mEq Tablet 40 MEQ PO (10:21)
[2023-09-11] MEDS: metoprolol tartrate 50 mg Tablet 25 MG PO ×2 (10:21→18:34)
[2023-09-11] MEDS: sennosides-docusate Tablet 1 TAB PO (10:21)
[2023-09-11] MEDS: pantoprazole DR 40 mg Tablet PO ×2 (10:21→18:34)
[2023-09-11] MEDS: insulin lispro 100 unit/1 mL SUBCUT ×2 (10:22→12:46)
[2023-09-11] MEDS: lanolin oint 7 gm 1 APPLIC TOPICAL (10:22)
[2023-09-11] MEDS: nystatin powder 15 gm Btl 1 APPLIC TOPICAL ×2 (12:45→18:39)
[2023-09-11 12:50] LABS: Glucose Point of Care 231 mg/dL (70-110)
[2023-09-11] MEDS: acetaminophen 500 mg Tablet PO (12:51)
--- NOTE | 2023-09-11 13:45 | XRR_ITS ---
PROCEDURE INFORMATION: Exam: XR Chest Exam date and time: 09/11/2023 2:51 PM Age: 68 years old Clinical indication: Shortness of breath; Additional info: Worsening dyspnea, hypoxia TECHNIQUE: Imaging protocol: Radiologic exam of the chest. Views: 1 view. COMPARISON: CR XR chest 1V portable [id number] 09/08/2023 12:27 PM FINDINGS: Lungs: There is pulmonary vascular congestion both lung shaikh. There is a large ill-defined opacity right lower lung zone with accompanying pleural effusion that is nonspecific and may be secondary to pneumonia, atelectasis or pulmonary edema. Pleural spaces: See Lungs finding. Heart/Mediastinum: Cardiac silhouette is mildly enlarged, unchanged. Bones/joints: Unremarkable for age. XR/XR chest 1V portable [id number] IMPRESSION: Mild cardiomegaly, CHF pattern with nonspecific opacity and accompanying pleural effusion right lower lung zone as discussed above.
--- NOTE | 2023-09-11 13:56 | PM.PN ---
Subjective Subjective: Reports that she is still very short of breath. She denies any chest pain at this time. Has been able to eat and drink some. Reports that she has been sitting up, using her oxygen and BIPAP, and has been receiving lasix and breathing treatments, but she is still short of breath. Medications: Reviewed: Yes Vitals/I&O/Wt Last Vital Signs Temp 98.8 F 09/11/23 12:00 Pulse 77 09/11/23 12:00 Resp 19 H 09/11/23 12:00 BP 161/102 09/11/23 12:00 Pulse Ox 96 09/11/23 12:00 O2 Del Method Nasal Cannula 09/11/23 12:00 O2 Flow Rate 3 09/11/23 12:00 FiO2 30 09/11/23 00:00 09/10/23 09/11/23 09/11/23 22:59 06:59 14:59 Intake Total 590 / 1430 480 / 1910 Output Total 730 / 730 1100 / 1830 1100 / 1100 Balance -140 / 700 -620 / 80 -1100 / -1100 Physical Exam Narrative: General: Cooperative patient in no apparent distress. Well developed. HEENT: Normocephalic, Atraumatic. External ears normal. Nasal passages patent without drainage. MMM. Heart: RRR. Resp: Labored breathing, conversational dyspnea noted. Lung sounds are diminished through the lower lobes. Fine ralses present. Abd: Soft, non-tender. Non-distended. Catheter is in place. Extremities: 2+ lower extremity edema. Skin: No rash or lesions on exposed areas. Urinary Catheter Management: Juárez: Cath Placed During This Visit: yes Reason for Continuing Indwelling Catheter: Accurate Measurement of Urinary Output in Critically Ill Patients Urinary Catheter Date of Insertion: 09/08/23 Data 09/11/23 05:05 09/11/23 05:05 A&P Assessment and plan (1) Hospital-acquired pneumonia: (2) Acute exacerbation of CHF (congestive heart failure): (3) Acute on chronic renal failure: (4) Situational anxiety: (5) Benign hypertension: (6) CKD (chronic kidney disease) stage 3, GFR 30-59 ml/min: (7) Chronic diastolic heart failure: (8) Frequent falls: (9) Muscle spasm: (10) Seronegative rheumatoid arthritis of both hands: (11) Diabetic foot: (12) Intermittent atrial fibrillation: (13) Edema, peripheral: (14) Peripheral neuropathy: Plan 68 y/o F admitted for CHFpEF, dyspnea with hypoxia, HAP, Volume overload, CKD. Continue close inpatient monitoring. Received 1 unit of blood yesterday. Hemoglobin is up to 8.2. Continue IV Lasix at 60 mg every 12. She had approximately 3 L Urine output in last 24hr. Juárez is in place. Continue Vanc, Flagyl and cefepime, nystatin powder for cellulitis/intertrigo. Currently she is on 3 L of oxygen with her sats in the mid 90s. She is still very short of breath, and has an elevated work of breathing. Air movement is diminished. Repeat CXR today. Continue oxygen protocol and BIPAP as needed. RAAT. Repeat AM labs. Continue Physical Therapy. Protonix for GI PPx. Recheck inflammatory markers in the A.M. Heparin for VTE PPx. Accu checks and insulin protocol. Patient has had EGD and colonoscopy at [facility] which showed gastritis, H. pylori biopsy results are pending, Code Status: Full IVF: None DVT PPx: Heparin GI PPx: Protonix ABx: Vancomycin, cefepime, Flagyl Diet: Cardiac carb consistent Discharge plan: SNF when stable. Attestations Medical Necessity Statement*: Will need continued inpatient stay for IV diuresis, IV antibiotics, supplemental oxygen and BIPAP. Coding Level of Care Code Acute Code for Chg Fwd Moderate MDM includes number and complexity of problems actively addressed during encounter, amount and/or complexity of data reviewed/ordered and described risk of complication, morbidity or mortality of management as documented Diagnoses Hospital-acquired pneumonia J18.9; Y95 Acute exacerbation of CHF (congestive heart failure) I50.9 Acute on chronic renal failure N17.9; N18.9 Situational anxiety F41.8 Benign hypertension I10 CKD (chronic kidney disease) stage 3, GFR 30-59 ml/min N18.30 Chronic diastolic heart failure I50.32 Frequent falls R29.6 Muscle spasm M62.838 Seronegative rheumatoid arthritis of both hands M06.041; M06.042 Diabetic foot E11.8 Intermittent atrial fibrillation I48.0 Edema, peripheral R60.9 Peripheral neuropathy G62.9
[2023-09-11] MEDS: vancomycin 1,500 MG/300 ML PIGGYBACK 200 MG IV (15:28)
[2023-09-11 16:51] LABS: Glucose Point of Care 138 mg/dL (70-110)
[2023-09-11] MEDS: cefepime 2,000 MG in sodium chloride 0.9% (plus) 50 ML 100 MG IV (21:03)
[2023-09-11] MEDS: LORazepam 0.5 mg Tablet PO (21:04)
[2023-09-11 21:56] LABS: Glucose Point of Care 183 mg/dL (70-110)
[2023-09-12] VITALS (62 sets, daily range): BP systolic 152–199; BP diastolic 71–82; PULSE 67–87; RESP 13–31; TEMP 36.9–37.2; O2SAT 93–99
[2023-09-12 04:18] LABS: Basophils # 0.1 10^3/uL (0.0-0.1); Eosinophils # 0.5 10^3/uL (0.0-0.8); Eosinophils % 7.7 %; Lymphocytes # 0.6 10^3/uL (0.8-4.8); Lymphocytes % 10.5 %; Mean Corpuscular HGB Conc 31.5 g/dL (30-55); Mean Corpuscular Hemoglobin 28.9 pg (27-33); Mean Corpuscular Volume 91.8 fl (85-98); Mean Platelet Volume 11.2 fL (7.4-10.4); Monocytes # 0.5 10^3/uL (0.2-0.9); Neutrophils % 71.5 %; Nucleated Red Blood Cells % 0 %; Platelet Count 196 10^3/cmm (157-399); Red Blood Count 2.94 10^6/uL (3.85-5.65); Red Cell Distribution Width 14.6 % (12.1-15.1); White Blood Count 6.01 10^3/uL (3.29-11.43)
[2023-09-12 04:51] LABS: Alanine Aminotransferase 15 U/L (0-33); Albumin Level 3.6 g/dL (3.5-5.2); Alkaline Phosphatase 68 U/L (35-105); Anion Gap 12.6 (5-19); Aspartate Amino Transferase 16 U/L (0-32); Blood Urea Nitrogen 52 mg/dL (8-23); C Reactive Protein 45.5 mg/L (0.0-4.9); Calcium 9.4 mg/dL (8.5-10.5); Carbon Dioxide 31 mmol/L (22-29); Chloride 105 mmol/L (98-107); Globulin 2.9 g/dL (1.3-4.6); Glomerular Filtration Rate 32.2 mL/min (90-130); Glucose 151 mg/dL (65-115); Magnesium 1.9 mg/dL (1.7-2.3); Osmolality Calculated 315 mOsm/kg (285-295); Potassium 4.6 mmol/L (3.5-5.1); Sodium 144 mmol/L (136-145); Thyroid Stimulating Hormone 2.91 uIU/mL (0.27-4.20); Total Bilirubin 0.6 mg/dL (0.15-1.2); Total Protein 6.5 g/dL (6.6-8.7)
[2023-09-12] MEDS: metoprolol tartrate 50 mg Tablet 25 MG PO ×2 (05:53→18:00)
[2023-09-12] MEDS: hyDRALAzine 20 mg/mL INJ 1 mL 10 MG IVP (05:53)
[2023-09-12 06:23] LABS: Glucose Point of Care 200 mg/dL (70-110)
[2023-09-12] MEDS: isosorbide mononitrate ER 60 mg Tablet PO (07:46)
[2023-09-12] MEDS: hyDRALAzine 25 mg Tablet PO (07:46)
[2023-09-12] MEDS: metroNIDAZOLE 500 MG Tablet PO ×3 (07:46→20:21)
[2023-09-12] MEDS: potassium chloride ER 20 mEq Tablet 40 MEQ PO (07:46)
[2023-09-12] MEDS: pantoprazole DR 40 mg Tablet PO ×2 (07:47→18:00)
[2023-09-12] MEDS: insulin lispro 100 unit/1 mL SUBCUT ×3 (07:47→18:00)
[2023-09-12] MEDS: nystatin powder 15 gm Btl 1 APPLIC TOPICAL ×2 (07:48→17:59)
[2023-09-12] MEDS: sennosides-docusate Tablet 1 TAB PO (07:48)
[2023-09-12 11:44] LABS: Glucose Point of Care 257 mg/dL (70-110)
--- NOTE | 2023-09-12 12:16 | PM.PN ---
Subjective Subjective: Blood pressure hemoglobin and heart rate is stable Patient is stating that she was able to get up and use nursing staff to go to the bathroom and sit in a recliner Had a detailed discussion with her daughter who is her DPOA she lives in [place] She is concerned about her drop in hemoglobin She does know that she is stable and wants us to get in touch with [facility] to see if they would take her to further investigate her active anemia/GI blood loss Vitals/I&O/Wt Last Vital Signs Temp 98.4 F 09/12/23 11:13 Pulse 75 09/12/23 11:13 Resp 18 09/12/23 11:13 BP 152/72 09/12/23 11:13 Pulse Ox 97 09/12/23 11:13 O2 Del Method BiPAP 09/12/23 11:13 O2 Flow Rate 3 09/12/23 09:20 FiO2 30 09/12/23 09:36 09/11/23 09/12/23 09/12/23 22:59 06:59 14:59 Intake Total 50 / 50 720 / 720 Output Total 600 / 1700 1250 / 2950 Balance -550 / -1650 -1250 / -2900 720 / 720 Physical Exam Narrative: Patient is awake and alert GCS 15 Abdomen soft Morbidly obese Currently on 3 L nasal cannula Awake and alert pleasant and cooperative Lower extremity edema present 3+ edema Juárez catheter in place Abdominal pannus with intertrigo Urinary Catheter Management: Juárez: Cath Placed During This Visit: yes Reason for Continuing Indwelling Catheter: Accurate Measurement of Urinary Output in Critically Ill Patients Urinary Catheter Date of Insertion: 09/08/23 Data 09/12/23 03:44 09/12/23 03:44 A&P Assessment and plan (1) Hospital-acquired pneumonia: (2) Acute exacerbation of CHF (congestive heart failure): (3) Situational anxiety: (4) Benign hypertension: (5) CKD (chronic kidney disease) stage 3, GFR 30-59 ml/min: (6) Chronic diastolic heart failure: (7) Anemia: (8) Gastric ulcer: Plan Acute on chronic GI blood loss anemia Status post 1 unit PRBC Multiple transfusions given at [facility] Current hemoglobin stable no hemodynamic changes Continue Protonix and sucralfate Gastric ulcer H. pylori negative as per the biopsy report from [facility] Check FOBT EGD colonoscopy done at [facility] Acute diastolic CHF exacerbation Continue diuresis Continue Juárez catheter accurate urine measure output Hospital-acquired pneumonia continue antibiotics Acute on chronic hypoxia Patient is back to baseline Benefiting from BiPAP overnight A-fib not a candidate for anticoagulation Currently rate controlled Acute on chronic kidney disease, stage IV: Creatinine improved with diuresis No indication for dialysis In case of further drop in hemoglobin she will need further investigation, I will call [facility] today Attestations Medical Necessity Statement*: Continue medical management Diagnoses Hospital-acquired pneumonia J18.9; Y95 Acute exacerbation of CHF (congestive heart failure) I50.9 Situational anxiety F41.8 Benign hypertension I10 CKD (chronic kidney disease) stage 3, GFR 30-59 ml/min N18.30 Chronic diastolic heart failure I50.32 Anemia D64.9 Gastric ulcer K25.9
--- NOTE | 2023-09-12 12:19 | PC.SOCIAL ---
Pg 2 IMM Explained to pt Pg 2 IMM. No questions voiced. Provided pt a copy. Initialed, dated, & timed a copy & placed in chart.
[2023-09-12] MEDS: FUROsemide 10 mg/mL SDV 10mL 60 MG IVP (12:53)
--- NOTE | 2023-09-12 15:10 | P.TS_ITS ---
Transfer Summary Providers Date of Admission: 09/08/23 18:50 Date of Discharge/Transfer: 09/12/23 Attending Provider at Admission: Yoselin Arthur MD Attending Provider at Transfer: Yoselin Arthur MD Primary Care Provider: PARAG Mensah Transfer Plans: Anticipated date of transfer: 09/12/23 . Diagnoses at Discharge Discharge Diagnosis (1) Hospital-acquired pneumonia: Status: Acute (2) Acute exacerbation of CHF (congestive heart failure): Status: Acute (3) Situational anxiety: Status: Chronic (4) Benign hypertension: Status: Chronic (5) CKD (chronic kidney disease) stage 3, GFR 30-59 ml/min: Status: Acute (6) Chronic diastolic heart failure: Status: Chronic (7) Anemia: Status: Acute (8) Gastric ulcer: Status: Acute Permanent problem details: H. pylori ruled out at [facility] Reason for Visit Reason for Visit Shortness of breath Hospital Course Hospital Course 68-year-old female who carries history of chronic kidney disease stage IV, monoclonal gammopathy, chronic anemia, diastolic CHF, factor V Leyden mutation, morbid obesity, chronic hypoxia, was transferred from our facility to [facility] For complications i.e excessive bleeding related to temporal dialysis catheter placement in femoral vein while on Eliquis , got discharged from the [facility] on 2 L of oxygen to home, presented next day to our hospital with chief complaint of worsening of shortness of breath and generalized weakness. patient was diagnosed with diastolic CHF exacerbation, Juárez catheter was inserted, she was given IV Lasix 60 mg every 12 hours with adequate urine output which resulted in improvement in her creatinine from 2.0 to 1.6. She did not show any signs of acidosis or worsening of kidney function. She was kept on 2 to 3 L of oxygen during daytime and BiPAP at night to help her improve her labored breathing, x-ray showed vascular congestion. Please note, she was em pirically treated for possible hospital-acquired pneumonia with anti-MRSA antibiotics and antipseudomonal coverage because she spiked fever 101.3 in the ER on admission, no further febrile episode noticed during hospitalization, cultures are negative to date. During hospitalization her hemoglobin dropped to 6.8 required 1 unit PRBC. Positive dark stools. Hemoglobin today is 8.5 she has stable hemodynamics to be transferred. Her family is upset stating that she was discharged early from the [facility] she needs further work-up for recurrent GI blood loss anemia. Records from [facility] reviewed, patient had EGD and colonoscopy, because of Inadequate colon prep colonoscopy was no not eventful however she did show stigmata of bleeding, H. pylori was negative Patient was discharged on Augmentin and doxycycline, there was concern for abdominal wall cellulitis Eliquis was discontinued related to anemia I presented this case to [facility] hospitalist nurse practitioner Maria Dolores, patient will be admitted under Dr. Rodgers to [facility] Physical Exam Narrative: Awake and alert Hemodynamically stable Signs of fluid overload present Currently on 3 L Morbidly obese Patient is able to use a walker with help of nursing staff Awake and alert Nonfocal neuro exam Urinary Catheter Management: Juárez: Cath Placed During This Visit: yes Reason for Continuing Indwelling Catheter: Accurate Measurement of Urinary Output in Critically Ill Patients Urinary Catheter Date of Insertion: 09/08/23 TS Data Studies Completed and Pending Pending at discharge Category Date Time Status Basic Metabolic Panel AM LABS Lab 09/13/23 04:00 Ordered Blood Culture Stat Lab 09/08/23 15:34 Results Complete Blood Count w/Auto AM LABS Lab 09/13/23 04:00 Ordered MRSA [Methicillin Resistant S.aureu] Routine Lab 09/12/23 12:20 Ordered Occult Blood Stool [Immunochemical Fecal OCB] Routine Lab 09/12/23 12:17 Uncollected Sputum Culture and Gram Stain Stat Lab 09/08/23 14:43 Uncollected Labs from last 24 hours 09/12/23 09/12/23 09/12/23 11:19 06:19 03:44 WBC RBC Hgb Hct MCV MCH MCHC RDW Plt Count MPV Neut % (Auto) Lymph % (Auto) Noble % (Auto) Eos % (Auto) Baso % (Auto) Neut # (Auto) Lymph # (Auto) Noble # (Auto) Eos # (Auto) Baso # (Auto) Nucleated RBC % (auto) Nucleated RBCs # Sodium 144 Potassium 4.6 Chloride 105 Carbon Dioxide 31 H Anion Gap 12.6 BUN 52 H Creatinine 1.6 H GFR Calculation 32.2 L Glucose 151 H POC Glucose 257 H 200 H Calculated Osmolality 315 H Calcium 9.4 Magnesium 1.9 Total Bilirubin 0.6 AST 16 ALT 15 Alkaline Phosphatase 68 C-Reactive Protein 45.5 H Total Protein 6.5 L Albumin 3.6 Globulin 2.9 TSH 2.91 09/12/23 09/11/23 09/11/23 03:44 21:40 16:45 WBC 6.01 RBC 2.94 L Hgb 8.50 L Hct 27.0 L MCV 91.8 MCH 28.9 MCHC 31.5 RDW 14.6 Plt Count 196 MPV 11.2 H Neut % (Auto) 71.5 Lymph % (Auto) 10.5 Noble % (Auto) 9.0 Eos % (Auto) 7.7 Baso % (Auto) 1.0 Neut # (Auto) 4.30 Lymph # (Auto) 0.6 L Noble # (Auto) 0.5 Eos # (Auto) 0.5 Baso # (Auto) 0.1 Nucleated RBC % (auto) 0 Nucleated RBCs # 0.0 Sodium Potassium Chloride Carbon Dioxide Anion Gap BUN Creatinine GFR Calculation Glucose POC Glucose 183 H 138 H Calculated Osmolality Calcium Magnesium Total Bilirubin AST ALT Alkaline Phosphatase C-Reactive Protein Total Protein Albumin Globulin TSH Completed Studies During Hospitalization Category Date Time Status XR chest 1V portable [id number] Routine Exams 09/11/23 13:45 Completed XR chest 1V portable [id number] Stat Exams 09/08/23 12:24 Completed Laboratory Last Values WBC 6.01 10^3/uL (3.29-11.43) 09/12/23 03:44 RBC 2.94 10^6/uL (3.85-5.65) L 09/12/23 03:44 Hgb 8.50 g/dL (11.27-16.99) L 09/12/23 03:44 Hct 27.0 % (36-47) L 09/12/23 03:44 MCV 91.8 fl (85-98) 09/12/23 03:44 MCH 28.9 pg (27-33) 09/12/23 03:44 MCHC 31.5 g/dL (30-55) 09/12/23 03:44 RDW 14.6 % (12.1-15.1) 09/12/23 03:44 Plt Count 196 10^3/cmm (157-399) 09/12/23 03:44 MPV 11.2 fL (7.4-10.4) H 09/12/23 03:44 Neut % (Auto) 71.5 % 09/12/23 03:44 Lymph % (Auto) 10.5 % 09/12/23 03:44 Noble % (Auto) 9.0 % 09/12/23 03:44 Eos % (Auto) 7.7 % 09/12/23 03:44 Baso % (Auto) 1.0 % 09/12/23 03:44 Neut # (Auto) 4.30 10^3/uL (1.8-7.7) 09/12/23 03:44 Lymph # (Auto) 0.6 10^3/uL (0.8-4.8) L 09/12/23 03:44 Noble # (Auto) 0.5 10^3/uL (0.2-0.9) 09/12/23 03:44 Eos # (Auto) 0.5 10^3/uL (0.0-0.8) 09/12/23 03:44 Baso # (Auto) 0.1 10^3/uL (0.0-0.1) 09/12/23 03:44 Nucleated RBC % (auto) 0 % 09/12/23 03:44 Nucleated RBCs # 0.0 /100WBC 09/12/23 03:44 Specimen Type Arterial 09/08/23 12:41 Sample Site Radial, right 09/08/23 12:41 ABG pH 7.42 (7.35-7.45) 09/08/23 12:41 ABG pCO2 49.4 mmHg (35-45) H 09/08/23 12:41 ABG pO2 71.4 mmHg (80.0-100.0) L 09/08/23 12:41 ABG HCO3 32.1 mmol/L (22-26) H 09/08/23 12:41 ABG O2 Saturation 96.7 09/08/23 12:41 ABG Base Excess 6.8 mmol/L (-2.0-2.0) H 09/08/23 12:41 Sharad Test Pos 09/08/23 12:41 A-a O2 Gradient 2.2 mmHg (5-10) L 09/08/23 12:41 Hematocrit 26.1 % (37-47) L 09/08/23 12:41 Hgb O2 Saturation 93.4 % (95-100) L 09/08/23 12:41 Carboxyhemoglobin 2.5 %THgb (0.4-20.1) 09/08/23 12:41 Methemoglobin 1.0 % (0.4-1.5) 09/08/23 12:41 Total Hemoglobin 8.5 g/dL (12-16) L 09/08/23 12:41 Sodium 145.0 mmol/L (131-143) H 09/08/23 12:41 Potassium 3.5 mmol/L (3.5-5.0) 09/08/23 12:41 Glucose 186.0 mg/dL (70-115) H 09/08/23 12:41 Ionized Calcium 1.3 mmol/L (1.1-1.4) 09/08/23 12:41 O2 Delivery Device Not Reportable 09/08/23 12:41 O2 Liters/Min 2.0 % 09/08/23 12:41 Stakeholder Manager ID [email or web address] 09/08/23 12:41 Sodium 144 mmol/L (136-145) 09/12/23 03:44 Potassium 4.6 mmol/L (3.5-5.1) 09/12/23 03:44 Chloride 105 mmol/L (98-107) 09/12/23 03:44 Carbon Dioxide 31 mmol/L (22-29) H 09/12/23 03:44 Anion Gap 12.6 (5-19) 09/12/23 03:44 BUN 52 mg/dL (8-23) H 09/12/23 03:44 Creatinine 1.6 mg/dL (0.5-0.9) H 09/12/23 03:44 GFR Calculation 32.2 mL/min (90-130) L 09/12/23 03:44 Glucose 151 mg/dL (65-115) H 09/12/23 03:44 POC Glucose 257 mg/dL (70-110) H 09/12/23 11:19 Estimat Average Glucose 128 09/08/23 12:56 Hemoglobin A1c 6.1 % (4.0-6.0) H 09/08/23 12:56 Calculated Osmolality 315 mOsm/kg (285-295) H 09/12/23 03:44 Calcium 9.4 mg/dL (8.5-10.5) 09/12/23 03:44 Phosphorus 3.9 mg/dL (2.5-4.5) 09/09/23 04:41 Magnesium 1.9 mg/dL (1.7-2.3) 09/12/23 03:44 Total Bilirubin 0.6 mg/dL (0.15-1.2) 09/12/23 03:44 AST 16 U/L (0-32) 09/12/23 03:44 ALT 15 U/L (0-33) 09/12/23 03:44 Alkaline Phosphatase 68 U/L (35-105) 09/12/23 03:44 C-Reactive Protein 45.5 mg/L (0.0-4.9) H 09/12/23 03:44 NT-Pro-B Natriuret Pep 8703 pg/mL (0-125) H 09/08/23 12:56 Total Protein 6.5 g/dL (6.6-8.7) L 09/12/23 03:44 Albumin 3.6 g/dL (3.5-5.2) 09/12/23 03:44 Globulin 2.9 g/dL (1.3-4.6) 09/12/23 03:44 Vitamin B12 1045 pg/mL (232-1245) 09/08/23 12:56 Procalcitonin 0.16 ng/mL (0-0.5) 09/08/23 12:56 TSH 2.91 uIU/mL (0.27-4.20) 09/12/23 03:44 Urine Color Colorless (Yellow) 09/08/23 18:04 Urine Appearance Sl hazy (CLEAR) A 09/08/23 18:04 Urine pH 7 (5-7) 09/08/23 18:04 Ur Specific Lennox 1.010 (1.005-1.030) 09/08/23 18:04 Urine Protein Neg (Negative) 09/08/23 18:04 Urine Glucose (UA) Norm (Normal) 09/08/23 18:04 Urine Ketones 1+ (Negative) H 09/08/23 18:04 Urine Blood Neg (Negative) 09/08/23 18:04 Urine Nitrate Negative (Negative) 09/08/23 18:04 Urine Bilirubin Neg (Negative) 09/08/23 18:04 Urine Urobilinogen Norm mg/dL (Negative) 09/08/23 18:04 Ur Leukocyte Esterase Negative (Negative) 09/08/23 18:04 Urine RBC 0-4 /hpf (0-2) H 09/08/23 18:04 Urine WBC Rare /hpf (0-5) 09/08/23 18:04 Ur Squamous Epith Cells 5-10 /hpf (0-5) H 09/08/23 18:04 Amorphous Sediment Not Reportable 09/08/23 18:04 Urine Bacteria None /hpf (NONE) 09/08/23 18:04 Urine Mucus None /hpf 09/08/23 18:04 Vancomycin Trough 34.1 ug/mL (10-15) H* 09/10/23 21:35 Coronavirus 229E (PCR) Not detected (NOT DETECT) 09/08/23 15:14 Human Metapneumovir PCR Not detected (NOT DETECT) 09/08/23 18:00 Influenza Type A Ag negative (Negative) 09/08/23 15:14 Influenza Type B Ag negative (Negative) 09/08/23 15:14 Entero/Rhino (PCR) Detected (NOT DETECT) A 09/08/23 18:00 SARS-CoV-2 (PCR) Not detected (NOT DETECT) 09/08/23 15:14 Blood Type B Positive 09/08/23 12:56 Rho(D) Type Positive 09/08/23 12:56 Antibody Screen Negative 09/08/23 12:56 Crossmatch See Detail 09/08/23 12:56 Radiology Impressions Chest X-Ray 09/11/23 13:45 IMPRESSION: Mild cardiomegaly, CHF pattern with nonspecific opacity and accompanying pleural effusion right lower lung zone as discussed above. Recent Clincial Data Last Vital Signs Temp 98.4 F 09/12/23 11:13 Pulse 72 09/12/23 15:08 Resp 18 09/12/23 11:13 BP 152/72 09/12/23 11:13 Pulse Ox 95 09/12/23 15:08 O2 Del Method BiPAP 09/12/23 11:13 O2 Flow Rate 3 09/12/23 09:20 FiO2 30 09/12/23 15:08 Vital Signs Temp Pulse Resp BP Pulse Ox O2 Del Method O2 Flow Rate 09/12/23 15:08 72 95 09/12/23 12:30 73 96 09/12/23 11:13 98.4 F 75 18 152/72 97 BiPAP 09/12/23 09:36 79 96 09/12/23 09:20 76 18 95 Nasal Cannula 3 09/12/23 07:29 76 17 199/81 96 BiPAP 09/12/23 06:00 70 09/12/23 04:31 72 18 196/82 95 BiPAP 09/12/23 04:00 71 17 98 BiPAP FiO2 09/12/23 15:08 30 09/12/23 12:30 30 09/12/23 11:13 09/12/23 09:36 30 09/12/23 09:20 09/12/23 07:29 09/12/23 06:00 09/12/23 04:31 09/12/23 04:00 Intake & Output/Weight 09/10/23 09/11/23 09/12/23 09/13/23 06:59 06:59 06:59 06:59 Intake Total 1130 / 1130 1960 / 1960 50 / 50 720 / 720 Output Total 1225 / 1225 1830 / 1830 2950 / 2950 Balance -95 / -95 130 / 130 -2900 / -2900 719 / 719 Vitals Last Vital Signs Temp 98.4 F 09/12/23 11:13 Pulse 72 09/12/23 15:08 Resp 18 09/12/23 11:13 BP 152/72 09/12/23 11:13 Pulse Ox 95 09/12/23 15:08 O2 Del Method BiPAP 09/12/23 11:13 O2 Flow Rate 3 09/12/23 09:20 FiO2 30 09/12/23 15:08 TS Medications Medications Acetaminophen (Acetaminophen 500 Mg Tablet) 500 mg PO Q4H PRN PRN Reason: fever Last Admin: 09/11/23 12:51 Dose: 500 mg Albuterol/Ipratropium (Ipratropium-Albuterol 3 Ml Neb) 3 ml INHALATION Q6H PRN PRN Reason: SHORTNESS OF BREATH Last Admin: 09/11/23 08:59 Dose: 3 ml Benzocaine (Cetylpyridinium Lozenge) 1 each MUCOUS MEM Q2H PRN PRN Reason: SORE THROAT Last Admin: 09/10/23 21:00 Dose: 1 each Calamine (Calamine Lotion 177 Ml Btl) 1 applic TOPICAL Q4H PRN PRN Reason: ITCHING Last Admin: 09/10/23 15:56 Dose: 1 applic Dextrose (Dextrose 50% Syringe 50 Ml) 25 ml IVP ONCE PRN; Protocol PRN Reason: hypoglycemia protocol Dextrose (Dextrose 50% Syringe 50 Ml) 50 ml IVP PRN PRN; Protocol PRN Reason: hypoglycemia protocol Furosemide (Furosemide 10 Mg/Ml Sdv 10ml) 60 mg IVP Q24H [facility] Last Admin: 09/12/23 12:53 Dose: 60 mg Glucagon (Glucagon 1 Mg/Ml Inj 1 Ml) 1 mg IM ONCE PRN; Protocol PRN Reason: Adult Acute Hypoglycemia Prot. Heparin Sodium (Porcine) (Heparin 5,000 Unit/Ml Inj 1 Ml) 5,000 unit SUBCUT Q12H [facility] Last Admin: 09/08/23 20:30 Dose: 5,000 unit Hydralazine HCl (Hydralazine 25 Mg Tablet) 25 mg PO ONCE [facility] Last Admin: 09/12/23 07:46 Dose: 25 mg Dextrose (D5w) 500 mls @ 100 mls/hr IV ONCE PRN; Protocol PRN Reason: Adult Acute Hypoglycemia Prot Cefepime HCl 2,000 mg/ Sodium (Chloride) 50 mls @ 100 mls/hr IV Q24H [facility]; Protocol Last Infusion: 09/11/23 21:35 Dose: Infused Insulin Human Lispro (Insulin Lispro 100 Unit/1 Ml) 0 unit SUBCUT TIDWM [facility]; Protocol Last Admin: 09/12/23 12:53 Dose: 8 unit Isosorbide Mononitrate (Isosorbide Mononitrate Er 60 Mg Tablet) 60 mg PO DAILY [facility] Last Admin: 09/12/23 07:46 Dose: 60 mg Lanolin (Lanolin Oint 7 Gm) 1 applic TOPICAL PRN PRN PRN Reason: DRYNESS Last Admin: 09/11/23 10:22 Dose: 1 applic Magnesium Oxide (Magnesium Oxide 400 Mg Tablet) 400 mg PO DAILY PRN PRN Reason: Muscle Spasm Metoprolol Tartrate (Metoprolol Tartrate 50 Mg Tablet) 25 mg PO BID [facility] Last Admin: 09/12/23 05:53 Dose: 25 mg Metronidazole (Metronidazole 500 Mg Tablet) 500 mg PO TID [facility] Last Admin: 09/12/23 07:46 Dose: 500 mg Nystatin (Nystatin Powder 15 Gm Btl) 1 applic TOPICAL BID [facility] Last Admin: 09/12/23 07:48 Dose: 1 applic Ondansetron HCl (Ondansetron 2 Mg/Ml Sdv 2 Ml) 4 mg IVP Q6H PRN PRN Reason: NAUSEA AND VOMITING Last Admin: 09/08/23 19:33 Dose: 4 mg Pantoprazole Sodium (Pantoprazole Dr 40 Mg Tablet) 40 mg PO BID [facility] Last Admin: 09/12/23 07:47 Dose: 40 mg Potassium Chloride (Potassium Chloride Er 20 Meq Tablet) 40 meq PO DAILY [facility] Last Admin: 09/12/23 07:46 Dose: 40 meq Senna/Docusate Sodium (Sennosides-Docusate Tablet) 1 tab PO DAILY [facility] Last Admin: 09/12/23 07:48 Dose: 1 tab Discontinued Medications Alprazolam (Alprazolam 0.5 Mg Tablet) 0.5 mg PO ONCE ONE Stop: 09/09/23 21:50 Last Admin: 09/09/23 22:39 Dose: 0.5 mg Alprazolam (Alprazolam 0.5 Mg Tablet) 0.5 mg PO ONCE ONE Stop: 09/10/23 22:06 Last Admin: 09/10/23 22:44 Dose: 0.5 mg Furosemide (Furosemide 10 Mg/Ml Sdv 10ml) 100 mg IVP ONCE ONE Stop: 09/08/23 12:38 Last Admin: 09/08/23 13:42 Dose: 100 mg Furosemide (Furosemide 10 Mg/Ml Sdv 10ml) 60 mg IVP Q12H [facility] Last Admin: 09/11/23 23:05 Dose: 60 mg Hydralazine HCl (Hydralazine 20 Mg/Ml Inj 1 Ml) 20 mg IVP ONCE ONE Stop: 09/08/23 12:38 Last Admin: 09/08/23 13:42 Dose: 20 mg Hydralazine HCl (Hydralazine 25 Mg Tablet) 25 mg PO ONCE ONE Stop: 09/08/23 12:38 Last Admin: 09/08/23 13:42 Dose: 25 mg Hydralazine HCl (Hydralazine 20 Mg/Ml Inj 1 Ml) 10 mg IVP ONCE ONE Stop: 09/12/23 05:32 Last Admin: 09/12/23 05:53 Dose: 10 mg Levofloxacin/Dextrose (Levaquin-D5w) 750 mg in 150 mls @ 100 mls/hr IV ONCE ONE; Protocol Stop: 09/08/23 18:57 Last Admin: 09/08/23 19:27 Dose: Not Given Cefepime HCl 2,000 mg/ Sodium (Chloride) 50 mls @ 100 mls/hr IV Q12H [facility]; Protocol Last Infusion: 09/08/23 20:03 Dose: Infused Vancomycin/PEG/NADA/Lysine/Water (Vancocin) 2,000 mg in 400 mls @ 200 mls/hr IV ONCE ONE Stop: 09/08/23 21:59 Last Infusion: 09/08/23 22:30 Dose: Infused Vancomycin/PEG/NADA/Lysine/Water (Vancocin) 1,500 mg in 300 mls @ 200 mls/hr IV Q18H [facility] Last Infusion: 09/10/23 06:07 Dose: Infused Sodium Chloride (Sodium Chloride 0.9% (100 Ml)) Confirm Administered Dose 100 mls @ as directed .ROUTE .[facility] Stop: 09/10/23 11:18 Last Infusion: 09/10/23 13:09 Dose: Infused Vancomycin/PEG/NADA/Lysine/Water (Vancocin) 1,500 mg in 300 mls @ 200 mls/hr IV Q36H [facility] Last Admin: 09/11/23 15:28 Dose: 200 mls/hr Isosorbide Mononitrate (Isosorbide Mononitrate Er 60 Mg Tablet) 60 mg PO ONCE ONE Stop: 09/08/23 12:38 Last Admin: 09/08/23 13:42 Dose: 60 mg Lorazepam (Lorazepam 0.5 Mg Tablet) 0.5 mg PO ONCE ONE Stop: 09/11/23 19:28 Last Admin: 09/11/23 21:04 Dose: 0.5 mg Metoprolol Tartrate (Metoprolol Tartrate 25 Mg Tablet) 25 mg PO ONCE ONE Stop: 09/08/23 12:38 Last Admin: 09/08/23 13:41 Dose: 25 mg Metoprolol Tartrate (Metoprolol Tartrate 50 Mg Tablet) 25 mg PO BID [facility] Last Admin: 09/11/23 18:34 Dose: 25 mg Morphine Sulfate (Morphine 4 Mg/Ml Sdv 1 Ml) 4 mg IVP ONCE ONE Stop: 09/08/23 19:13 Last Admin: 09/08/23 19:30 Dose: Not Given Oxycodone HCl (Oxycodone 5 Mg Ir Tab/Cap) 5 mg PO ONCE ONE Stop: 09/08/23 19:30 Last Admin: 09/08/23 19:34 Dose: 5 mg Polyethylene Glycol (Polyethylene Glycol 3350 Pkt 17 Gm) 17 gm PO ONCE ONE Stop: 09/10/23 22:06 Sacubitril/Valsartan (Sacubitril/Valsartan 24-26 Mg Tablet) 1 each PO BID [facility] Last Admin: 09/08/23 19:27 Dose: Not Given Sodium Chloride (Sodium Chloride 0.9% 100 Ml Bag) 50 ml IV PRN PRN PRN Reason: Blood transfusion prime and flush Stop: 09/11/23 08:02 Allergies acetaminophen [From [facility]] Allergy (Verified 09/08/23 13:15) Unknown bacitracin Allergy (Verified 09/08/23 13:15) ADR-Nausea codeine Allergy (Verified 09/08/23 13:15) ADR-Nausea hydrocodone [From [facility]] Allergy (Verified 09/08/23 13:15) Unknown Latex, Natural Rubber Allergy (Verified 09/08/23 13:15) Unknown morphine Allergy (Verified 09/08/23 13:15) ADR-Itching neomycin [From Neosporin ([id number])] Allergy (Verified 09/08/23 13:15) ALGY-Rash oxycodone Allergy (Verified 09/08/23 13:15) Unknown polymyxin B [From Neosporin ([id number])] Allergy (Verified 09/08/23 13:15) ALGY-Rash Sulfa (Sulfonamide Antibiotics) Allergy (Verified 09/08/23 13:15) ADR-Nausea sulfamethoxazole [From Bactrim] Allergy (Verified 09/08/23 13:15) Unknown trimethoprim [From Bactrim] Allergy (Verified 09/08/23 13:15) Unknown spironolactone Adverse Reaction (Severe, Uncoded 07/28/23 15:55) temporary blindness Home Medications cholecalciferol (vitamin D3) 125 mcg (5,000 unit) tablet (Vitamin D3) 125 mcg PO DAILY 05/14/21 [History Confirmed 09/08/23] acetaminophen 325 mg tablet 325 - 650 mg PO Q6H PRN Pain 12/13/21 [History Confirmed 09/08/23] wheelchair cushions #1 ea 01/12/22 [Rx Confirmed 09/08/23] clindamycin phosphate 1 % lotion See Rx Instructions .Route .COMPLEX #60 mL 02/03/22 [Rx Confirmed 09/08/23] Alternating pressure mattress and pressure pump #1 ea 02/12/22 [Rx Confirmed 09/08/23] cyanocobalamin (vitamin B-12) 50 mcg tablet (Vitamin B-12) 50 mcg PO DAILY ##0 04/12/22 [History Confirmed 09/08/23] metoprolol tartrate 50 mg tablet 25 mg PO BID 05/31/22 [History Confirmed 09/08] potassium chloride 20 mEq tablet,extended release 30 meq PO DAILY #135 tabs 07/21/22 [Rx Confirmed 09/08/23] torsemide 100 mg tablet 100 mg PO DAILY #90 tabs 07/21/22 [Rx Confirmed 09/08/23] nitroglycerin 0.4 mg sublingual tablet (Nitrostat) 0.4 mg sublingual Q5M PRN Chest Pain #50 tabs 09/20/22 [Rx Confirmed 09/08/23] blood-glucose meter ([employer] Ultra2 Meter kit) #1 ea 09/29/22 [Rx Confirmed 09/08/23] pen needle, diabetic 31 gauge x 5/16 (TechLITE Pen Needle) #200 ea 01/11/23 [Rx Confirmed 09/08/23] hydralazine 50 mg tablet 50 mg PO TID #90 tabs 01/27/23 [Rx Confirmed 09/08/23] Motorized lift chair #1 ea 02/25/23 [Rx Confirmed 09/08/23] diabetic shoes with inserts #1 ea 02/25/23 [Rx Confirmed 09/08/23] blood sugar diagnostic (Impact RadiusTouch Ultra Test strips) #100 ea 03/02/23 [Rx Confir med 09/08/23] isosorbide mononitrate 60 mg tablet,extended release 24 hr 60 mg PO DAILY #90 tabs 04/13/23 [Rx Confirmed 09/08/23] hydroxychloroquine 200 mg tablet 200 mg PO BID #180 tabs 05/02/23 [Rx Confirmed 09/08/23] dicyclomine 20 mg tablet 20 mg PO QID #120 tabs 05/10/23 [Rx Confirmed 09/08/23] hydroxyzine pamoate 50 mg capsule 50 mg PO TID #90 caps 05/10/23 [Rx Confirmed 09/08/23] insulin degludec 200 unit/mL (3 mL) subcutaneous pen (Tresiba FlexTouch U-200 insulin) 80 unit (0.4 mL) SUBCUT DAILY #18 mL 05/10/23 [Rx Confirmed 09/08/23] insulin lispro 100 unit/mL subcutaneous pen (Humalog KwikPen (U-100) Insulin) See Rx Instructions SUBCUT .COMPLEX #15 mL 05/10/23 [Rx Confirmed 09/08/23] triamcinolone acetonide 0.1 % topical ointment 1 applic topical DAILY PRN itching #30 grams 05/10/23 [Rx Confirmed 09/08/23] lancets 33 gauge ([employer] Lancets) #100 ea 05/13/23 [Rx Confirmed 09/08/23] lancing device with lancets kit ([employer] Plus Lancing Device kit) #1 ea 05/13/23 [Rx Confirmed 09/08/23] ondansetron 8 mg disintegrating tablet 8 mg PO Q8H PRN nausea and vomiting #7 tabs 08/11/23 [Rx Confirmed 09/08/23] albuterol sulfate 90 mcg/actuation aerosol inhaler (ProAir HFA) 2 puff inhalation Q4H PRN shortness of breath or wheezing #8.5 grams 08/12/23 [Rx Confirmed 09/08/23] fluoxetine 20 mg capsule 20 mg PO DAILY 08/13/23 [History Confirmed 09/08/23] fluoxetine 40 mg capsule 40 mg PO BEDTIME 08/13/23 [History Confirmed 09/08/23] magnesium oxide 400 mg PO DAILY PRN Muscle Spasm 08/13/23 [History Confirmed 09/08/23] sacubitril 24 mg-valsartan 26 mg tablet (Entresto) 1 tab PO DAILY 08/13/23 [History Confirmed 09/08/23] amoxicillin 500 mg-potassium clavulanate 125 mg tablet 1 tab PO BID 09/08/23 [History Confirmed 09/08/23] bumetanide 2 mg tablet 2 mg PO BID 09/08/23 [History Confirmed 09/08/23] doxycycline hyclate 100 mg capsule 100 mg PO BID 09/08/23 [History Confirmed 09/08/23] oxycodone 5 mg tablet 2.5 - 5 mg PO Q8H PRN Pain 09/08/23 [History Confirmed ] pantoprazole 40 mg tablet,delayed release 40 mg PO BID 09/08/23 [History Confirmed 09/08/23] rosuvastatin 10 mg tablet 10 mg PO QPM 09/08/23 [History Confirmed 09/08/23] Discharge Plan Discharge Patient Disposition: Home Condition: Stable Prescriptions: No Action (DME) wheelchair cushions See Rx Instructions .Route .MEDSUPPLY Qty: 1 0RF Rx Instructions: As directed (DME) Alternating pressure mattress and pressure pump See Rx Instructions .Route .MEDSUPPLY Qty: 1 0RF Rx Instructions: As directed hydroxychloroquine 200 mg tablet 200 mg PO BID Qty: 180 1RF dicyclomine 20 mg tablet 20 mg PO QID Qty: 120 2RF hydroxyzine pamoate 50 mg capsule 50 mg PO TID Qty: 90 2RF insulin degludec [Tresiba FlexTouch U-200] 200 unit/mL (3 mL) insulin pen 80 unit SUBCUT DAILY Qty: 18 2RF insulin lispro [Humalog KwikPen Insulin] 100 unit/mL insulin pen See Rx Instructions SUBCUT .COMPLEX Qty: 15 0RF Rx Instructions: 6-27U SUBCUT three times daily subcutaneously; per sliding scale triamcinolone acetonide 0.1 % ointment 1 applic TOPICAL DAILY PRN (Reason: itching) Qty: 30 0RF Rx Instructions: skin arms, legs torso (DME) lancing device with lancets [OneTouch Delica Plus Lanc Dev] Kit See Rx Instructions .Route Qty: 1 0RF Rx Instructions: As directed (DME) lancets [OneTouch Delica Lancets] 33 gauge misc See Rx Instructions .Route Qty: 100 5RF Rx Instructions: three times day (DME) diabetic shoes with inserts See Rx Instructions .Route .MEDSUPPLY Qty: 1 0RF Rx Instructions: As directed (DME) Motorized lift chair See Rx Instructions .Route .MEDSUPPLY Qty: 1 0RF Rx Instructions: As directed (DME) OneTouch Ultra Test Strip See Rx Instructions .Route Qty: 100 5RF Rx Instructions: 1 strip three time day clindamycin phosphate 1 % lotion See Rx Instructions .ROUTE .COMPLEX Qty: 60 1RF Dose Instruction: APPLY TOPICALLY TWICE DAILY NEEDED FOR SKIN IRRITATION Rx Instructions: APPLY TOPICALLY TWICE DAILY NEEDED FOR SKIN IRRITATION torsemide 100 mg tablet 100 mg PO DAILY Qty: 90 3RF Rx Instructions: Dose increased potassium chloride 20 mEq tablet extended release 30 meq PO DAILY Qty: 135 3RF nitroglycerin [Nitrostat] 0.4 mg tablet, sublingual 0.4 mg SUBLINGUAL Q5M PRN (Reason: Chest Pain) Qty: 50 3RF Rx Instructions: do not exceed 3 doses per episode (DME) blood-glucose meter [Impact RadiusTouch Ultra2 Meter] Kit See Rx Instructions .Route Qty: 1 0RF Rx Instructions: As directed (DME) pen needle, diabetic [TechLITE Pen Needle] 31 gauge x 5/16 needle See Rx Instructions .ROUTE .MEDSUPPLY Qty: 200 5RF Rx Instructions: use 4 times day hydralazine 50 mg tablet 50 mg PO TID Qty: 90 1RF Rx Instructions: MUST have follow-up for further refills isosorbide mononitrate 60 mg tablet extended release 24 hr 60 mg PO DAILY Qty: 90 0RF Rx Instructions: 04/13/23 YOU NEED TO MAKE AN APPOINTMENT TO BE SEEN PRIOR TO ANY MORE REFILLS ondansetron 8 mg tablet,disintegrating 8 mg PO Q8H PRN (Reason: nausea and vomiting) Qty: 7 0RF albuterol sulfate [ProAir HFA] 90 mcg/actuation HFA aerosol inhaler 2 puff INHALATION Q4H PRN (Reason: shortness of breath or wheezing) Qty: 8.5 0RF cholecalciferol (vitamin D3) [Vitamin D3] 125 mcg (5,000 unit) Tablet 125 mcg PO DAILY acetaminophen 325 mg tablet 325 - 650 mg PO Q6H PRN (Reason: Pain) Vitamin B-12 50 mcg Tablet 50 mcg PO DAILY Qty: 0 metoprolol tartrate 50 mg tablet 25 mg PO BID fluoxetine 40 mg capsule 40 mg PO BEDTIME fluoxetine 20 mg capsule 20 mg PO DAILY Entresto 24-26 mg tablet 1 tab PO DAILY magnesium oxide 400 mg magnesium tablet 400 mg PO DAILY PRN (Reason: Muscle Spasm) doxycycline hyclate 100 mg capsule 100 mg PO BID bumetanide 2 mg tablet 2 mg PO BID pantoprazole 40 mg tablet,delayed release (DR/EC) 40 mg PO BID amoxicillin-pot clavulanate 500-125 mg tablet 1 tab PO BID oxycodone 5 mg tablet 2.5 - 5 mg PO Q8H PRN (Reason: Pain) rosuvastatin 10 mg tablet 10 mg PO QPM Referrals: [facility] [Outside] Lorenzo Muller FNP-C [Primary Care Provider] - Patient Instructions: Heart Failure (DC), CHF Stoplight, Opioid Safety Transfer Attestations Time Spent in Transfer Care: greater than 30 min Status at Transfer: Cognitive status at transfer: cognitively intact ; Behavioral status at transfer: cooperative ; Quality Metrics Clinical Quality Measures [ No reported AMI, CVA or VTE this stay] Coding Level of Care Code Acute Code for g Fwd Diagnoses Hospital-acquired pneumonia J18.9; Y95 Acute exacerbation of CHF (congestive heart failure) I50.9 Situational anxiety F41.8 Benign hypertension I10 CKD (chronic kidney disease) stage 3, GFR 30-59 ml/min N18.30 Chronic diastolic heart failure I50.32 Anemia D64.9 Gastric ulcer K25.9
[2023-09-12 16:56] LABS: Glucose Point of Care 176 mg/dL (70-110)
[2023-09-12] MEDS: cefepime 2,000 MG in sodium chloride 0.9% (plus) 50 ML 100 MG IV (20:21)
[2023-09-12 20:30] LABS: Glucose Point of Care 148 mg/dL (70-110)
[2023-09-12] MEDS: ALPRAZolam 0.5 mg Tablet PO (20:48)
[2023-09-13] VITALS (69 sets, daily range): BP systolic 178–210; BP diastolic 71–95; PULSE 72–87; RESP 12–33; TEMP 36.8–37.3; O2SAT 90–98
[2023-09-13 05:08] LABS: Blood Urea Nitrogen 47 mg/dL (8-23); Calcium 9.5 mg/dL (8.5-10.5); Carbon Dioxide 27 mmol/L (22-29); Chloride 106 mmol/L (98-107); Glomerular Filtration Rate 37.6 mL/min (90-130); Glucose 137 mg/dL (65-115); Osmolality Calculated 310 mOsm/kg (285-295); Sodium 143 mmol/L (136-145)
[2023-09-13 05:10] LABS: Anion Gap 14.8 (5-19); Potassium 4.8 mmol/L (3.5-5.1)
[2023-09-13 05:55] LABS: Basophils # 0.1 10^3/uL (0.0-0.1); Basophils % 1.2 %; Eosinophils # 0.4 10^3/uL (0.0-0.8); Eosinophils % 8.6 %; Hematocrit 25.5 % (36-47); Lymphocytes # 0.6 10^3/uL (0.8-4.8); Lymphocytes % 12.5 %; Mean Corpuscular HGB Conc 31.8 g/dL (30-55); Mean Corpuscular Hemoglobin 28.3 pg (27-33); Mean Corpuscular Volume 89.2 fl (85-98); Mean Platelet Volume 11.6 fL (7.4-10.4); Monocytes # 0.6 10^3/uL (0.2-0.9); Monocytes % 11.2 %; Neutrophils # 3.23 10^3/uL (1.8-7.7); Neutrophils % 66.1 %; Nucleated Red Blood Cells % 0 %; Platelet Count 162 10^3/cmm (157-399); Red Blood Count 2.86 10^6/uL (3.85-5.65); Red Cell Distribution Width 14.6 % (12.1-15.1); White Blood Count 4.89 10^3/uL (3.29-11.43)
[2023-09-13 06:36] LABS: Glucose Point of Care 205 mg/dL (70-110)
[2023-09-13] MEDS: sennosides-docusate Tablet 1 TAB PO (09:42)
[2023-09-13] MEDS: pantoprazole DR 40 mg Tablet PO ×2 (09:42→18:28)
[2023-09-13] MEDS: isosorbide mononitrate ER 60 mg Tablet PO (09:42)
[2023-09-13] MEDS: metroNIDAZOLE 500 MG Tablet PO (09:42)
[2023-09-13] MEDS: potassium chloride ER 20 mEq Tablet 40 MEQ PO (09:43)
[2023-09-13] MEDS: metoprolol tartrate 25 mg Tablet PO ×2 (09:43→18:28)
[2023-09-13] MEDS: insulin lispro 100 unit/1 mL SUBCUT ×3 (09:44→18:29)
[2023-09-13] MEDS: nystatin powder 15 gm Btl 1 APPLIC TOPICAL ×2 (10:09→18:50)
--- NOTE | 2023-09-13 10:16 | PM.PN ---
Subjective Subjective: Spoke with her daughter who is at the bedside Hemoglobin 8.1 Patient hypertensive Use BiPAP overnight Patient is showing signs of pursed lip breathing She is getting IV Lasix Creatinine improved Afebrile Awaiting bed number from [facility] Vitals/I&O/Wt Last Vital Signs Temp 98.2 F 09/13/23 07:59 Pulse 73 09/13/23 08:00 Resp 18 09/13/23 08:00 BP 207/90 09/13/23 07:59 Pulse Ox 95 09/13/23 08:00 O2 Del Method BiPAP 09/13/23 08:00 O2 Flow Rate 3 09/12/23 09:20 FiO2 30 09/13/23 08:00 09/12/23 09/13/23 09/13/23 22:59 06:59 14:59 Intake Total 290 / 1010 Output Total 975 / 976 Balance 290 / 1009 -975 / 34 Physical Exam Narrative: Awake and alert Signs of fluid load present Abdomen soft GCS [address] Currently on 3 L nasal cannula Family at the bedside Pleasant cooperative Nonfocal neuro exam Urinary Catheter Management: Juárez: Cath Placed During This Visit: yes Reason for Continuing Indwelling Catheter: Accurate Measurement of Urinary Output in Critically Ill Patients Urinary Catheter Date of Insertion: 09/08/23 Data 09/13/23 05:45 09/13/23 04:18 A&P Assessment and plan (1) Gastric ulcer: (2) Hospital-acquired pneumonia: (3) Acute exacerbation of CHF (congestive heart failure): (4) Acute on chronic renal failure: (5) Situational anxiety: (6) Benign hypertension: (7) CKD (chronic kidney disease) stage 3, GFR 30-59 ml/min: (8) Chronic diastolic heart failure: (9) Dietary noncompliance: (10) Anemia: Plan Hypertensive urgency: Added hydralazine to her Imdur and metoprolol regimen Not a candidate to be on ART or ARB Systolic blood pressure ranging from 170- 190 mmHg Diastolic CHF exacerbation Likely related to dietary noncompliance, sleep apnea, pulmonary hypertension? Added metolazone along Lasix 60 mg IV twice daily She has been getting BiPAP overnight and uses 3 L of oxygen during the day Right-sided pleural effusion, anticipate improvement with diuresis -3 L balance, no significant weight change, baseline weight around 375 pounds Acute on chronic anemia: Status post 1 unit PRBC during this hospitalization Multiple transfusion given at [facility] Hemoglobin slowly trending down Hypertensive Patient may need further work-up at [facility] Patient has been accepted by hospitalist service awaiting bed placement Factor V Leyden mutation: Not a candidate to be on Eliquis requiring multiple blood transfusions in last few weeks Acute on chronic kidney disease: Creatinine improved with diuresis, added metolazone to her Lasix for persistent hypervolemia Hospital-acquired pneumonia I will de-escalate antibiotics she has been afebrile, discontinue IV antibiotics and changed to levofloxacin, MRSA negative Full code Consistent carb diet Fluid restriction I have spoken with the daughter that patient should be discharged to [facility] once she is evaluated at [facility] Attestations Medical Necessity Statement*: Continue medical management Diagnoses Gastric ulcer K25.9 Hospital-acquired pneumonia J18.9; Y95 Acute exacerbation of CHF (congestive heart failure) I50.9 Acute on chronic renal failure N17.9; N18.9 Situational anxiety F41.8 Benign hypertension I10 CKD (chronic kidney disease) stage 3, GFR 30-59 ml/min N18.30 Chronic diastolic heart failure I50.32 Dietary noncompliance Z91.11 Anemia D64.9
[2023-09-13 11:31] LABS: Glucose Point of Care 185 mg/dL (70-110)
[2023-09-13] MEDS: hyDRALAzine 25 mg Tablet PO ×6 (12:40→21:41)
[2023-09-13 17:28] LABS: Glucose Point of Care 177 mg/dL (70-110)
[2023-09-13] MEDS: metOLazone 5 MG Tablet PO (18:29)
[2023-09-13] MEDS: FUROsemide 10 mg/mL SDV 10mL 60 MG IVP (18:29)
[2023-09-13 20:59] LABS: Glucose Point of Care 224 mg/dL (70-110)
[2023-09-13] MEDS: ALPRAZolam 0.5 mg Tablet PO (21:41)
[2023-09-14] VITALS (55 sets, daily range): BP systolic 156–210; BP diastolic 67–95; PULSE 73–85; RESP 11–29; TEMP 36.6–37.1; O2SAT 83–98
[2023-09-14] MEDS: acetaminophen 500 mg Tablet PO (02:08)
[2023-09-14] MEDS: levoFLOXacin 750 mg Tablet PO (06:15)
[2023-09-14 06:20] LABS: Basophils # 0.1 10^3/uL (0.0-0.1); Basophils % 1.4 %; Eosinophils # 0.3 10^3/uL (0.0-0.8); Eosinophils % 5.8 %; Hematocrit 26.7 % (36-47); Lymphocytes # 0.8 10^3/uL (0.8-4.8); Lymphocytes % 16.7 %; Mean Corpuscular HGB Conc 30.7 g/dL (30-55); Mean Corpuscular Hemoglobin 28.3 pg (27-33); Mean Corpuscular Volume 92.1 fl (85-98); Mean Platelet Volume 11.1 fL (7.4-10.4); Monocytes # 0.6 10^3/uL (0.2-0.9); Monocytes % 11.6 %; Neutrophils # 3.19 10^3/uL (1.8-7.7); Neutrophils % 64.1 %; Nucleated Red Blood Cells % 0 %; Platelet Count 209 10^3/cmm (157-399); Red Cell Distribution Width 14.7 % (12.1-15.1); White Blood Count 4.98 10^3/uL (3.29-11.43)
[2023-09-14 06:32] LABS: Glucose Point of Care 155 mg/dL (70-110)
[2023-09-14 06:42] LABS: Potassium 4.6 mmol/L (3.5-5.1)
[2023-09-14 06:52] LABS: Anion Gap 12.6 (5-19); Blood Urea Nitrogen 39 mg/dL (8-23); Calcium 9.5 mg/dL (8.5-10.5); Carbon Dioxide 31 mmol/L (22-29); Chloride 106 mmol/L (98-107); Glucose 161 mg/dL (65-115); Osmolality Calculated 313 mOsm/kg (285-295); Sodium 145 mmol/L (136-145)
[2023-09-14] MEDS: ipratropium-albuterol 3 mL Neb INHALATION ×2 (07:54→21:37)
--- NOTE | 2023-09-14 10:17 | P.PN_ITS ---
Subjective Subjective: Adequate urine output Hemoglobin stable Carotid improved We will cancel transfer request Daughter is in agreement that hemoglobin has remained stable Vitals/I&O/Wt Last Vital Signs Temp 98.4 F 09/14/23 07:42 Pulse 74 09/14/23 07:54 Resp 16 09/14/23 07:54 BP 174/67 09/14/23 07:42 Pulse Ox 95 09/14/23 07:54 O2 Del Method Nasal Cannula 09/14/23 07:54 O2 Flow Rate 3 09/14/23 07:54 FiO2 30 09/14/23 03:59 09/13/23 09/14/23 09/14/23 22:59 06:59 14:59 Intake Total 120 / 360 500 / 860 240 / 240 Output Total 1200 / 1200 950 / 2150 350 / 350 Balance -1080 / -840 -450 / -1290 -110 / -110 Physical Exam Narrative: Signs of fluid load improving however still present GCS 15 Awake and alert Pleasant Currently on 2 L nasal cannula Saturating well Abdomen distended however soft Lower extremity edema present Urinary Catheter Management: Juárez: Cath Placed During This Visit: yes Reason for Continuing Indwelling Catheter: Accurate Measurement of Urinary Output in Critically Ill Patients Urinary Catheter Date of Insertion: 09/08/23 Data 09/14/23 06:14 09/14/23 06:14 Micro: Microbiology 09/08/23 15:34 Blood Culture - Final Blood NO GROWTH AFTER 5 DAYS 09/08/23 15:30 Blood Culture - Final Blood NO GROWTH AFTER 5 DAYS A&P Assessment and plan (1) Gastric ulcer: (2) Hospital-acquired pneumonia: (3) Acute exacerbation of CHF (congestive heart failure): (4) Acute on chronic renal failure: (5) Situational anxiety: (6) Benign hypertension: (7) Chronic diastolic heart failure: (8) Dietary noncompliance: (9) Monoclonal gammopathy: (10) Anemia: (11) Edema: Plan Acute on chronic GI blood loss anemia Status post 1 unit PRBC Hemoglobin has remained stable We will cancel [facility] transfer request as she might not go for any intervention Acute diastolic CHF exacerbation Patient responded very well to metolazone and IV diuretic combination Acute on chronic kidney disease: Improving Hospital-acquired pneumonia antibiotics de-escalated Patient will need to continue PT We will try to get authorization to send her to [facility] Full code Hypertensive urgency Blood pressure slightly better as compared to yesterday We will add low-dose lisinopril For her insomnia we will add low-dose Xanax Attestations Medical Necessity Statement*: Continue medical management Diagnoses Gastric ulcer K25.9 Hospital-acquired pneumonia J18.9; Y95 Acute exacerbation of CHF (congestive heart failure) I50.9 Acute on chronic renal failure N17.9; N18.9 Situational anxiety F41.8 Benign hypertension I10 Chronic diastolic heart failure I50.32 Dietary noncompliance Z91.11 Monoclonal gammopathy D47.2 Anemia D64.9 Edema R60.9
[2023-09-14] MEDS: potassium chloride ER 20 mEq Tablet 40 MEQ PO (10:20)
[2023-09-14] MEDS: isosorbide mononitrate ER 60 mg Tablet PO (10:20)
[2023-09-14] MEDS: pantoprazole DR 40 mg Tablet PO ×2 (10:21→18:28)
[2023-09-14] MEDS: sennosides-docusate Tablet 1 TAB PO (10:21)
[2023-09-14] MEDS: metOLazone 5 MG Tablet PO ×2 (10:21→18:27)
[2023-09-14] MEDS: metoprolol tartrate 25 mg Tablet PO ×2 (10:21→18:27)
[2023-09-14] MEDS: insulin lispro 100 unit/1 mL SUBCUT ×3 (10:22→18:29)
[2023-09-14] MEDS: FUROsemide 10 mg/mL SDV 10mL 60 MG IVP ×2 (10:22→18:28)
[2023-09-14] MEDS: hyDRALAzine 25 mg Tablet PO ×5 (10:23→20:43)
[2023-09-14] MEDS: nystatin powder 15 gm Btl 1 APPLIC TOPICAL (10:24)
--- NOTE | 2023-09-14 11:13 | PC.SOCIAL ---
IMM Updated Updated pt on IMM. No questions voiced. Provided pt a copy. Initialed, dated, & timed copy in chart.
[2023-09-14 11:41] LABS: Glucose Point of Care 201 mg/dL (70-110)
[2023-09-14] MEDS: lisinopril 10 mg Tablet PO (12:30)
[2023-09-14 16:40] LABS: Glucose Point of Care 188 mg/dL (70-110)
[2023-09-14 20:56] LABS: Glucose Point of Care 198 mg/dL (70-110)
[2023-09-15] VITALS (115 sets, daily range): BP systolic 151–207; BP diastolic 58–113; PULSE 74–91; RESP 11–28; TEMP 36.8–37.3; O2SAT 86–98
[2023-09-15] MEDS: levoFLOXacin 750 mg Tablet PO (06:05)
[2023-09-15 06:30] LABS: Glucose Point of Care 184 mg/dL (70-110)
[2023-09-15] MEDS: insulin lispro 100 unit/1 mL SUBCUT ×3 (07:19→17:13)
[2023-09-15] MEDS: ipratropium-albuterol 3 mL Neb INHALATION ×2 (07:26→19:49)
--- NOTE | 2023-09-15 07:32 | ECG_ITS ---
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 Measurements Intervals [place] Rate: 80 P: -54 [place]: 133 QRS: -70 QRSD: 151 T: 52 QT: 436 QTc: 506 Interpretive Statements SINUS RHYTHM LEFT AXIS DEVIATION [QRS AXIS < -30] RIGHT BUNDLE BRANCH BLOCK [120+ ms QRS DURATION, UPRIGHT V1, 40+ ms S IN I/aVL/V4/V5/V6] POSSIBLE ANTERIOR MYOCARDIAL INFARCTION , PROBABLY OLD [30 ms Q WAVE IN V3/V4, OR R < 0.2 mV IN V4] Compared to ECG 09/08/2023 12:29:30 No significant changes Electronically Signed On 09-15-2023 11:32:05 CDT by Renee Seay M.D. [id number]
[2023-09-15] MEDS: FUROsemide 10 mg/mL SDV 10mL 60 MG IVP ×2 (07:53→17:12)
[2023-09-15] MEDS: metOLazone 5 MG Tablet PO ×2 (07:56→17:13)
[2023-09-15] MEDS: isosorbide mononitrate ER 60 mg Tablet PO (07:56)
[2023-09-15] MEDS: metoprolol tartrate 25 mg Tablet PO ×2 (07:57→17:12)
[2023-09-15] MEDS: sennosides-docusate Tablet 1 TAB PO (07:58)
[2023-09-15] MEDS: pantoprazole DR 40 mg Tablet PO ×2 (07:58→17:13)
[2023-09-15] MEDS: potassium chloride ER 20 mEq Tablet 40 MEQ PO (07:58)
[2023-09-15] MEDS: lisinopril 10 mg Tablet PO (07:59)
[2023-09-15] MEDS: hyDRALAzine 25 mg Tablet PO (08:00)
--- NOTE | 2023-09-15 08:03 | PC.NURSE ---
When nurse came in to assess patient at 0730 patient stated her heart hurt . I asked her if she would call it chest pain and she said yes and stated she has been having chest pain all night. 0900 meds given at 0755 to help bring down her blood pressure and relieve pain. EKG done and in chart.
[2023-09-15 09:14] LABS: Hematocrit 27.1 % (36-47)
[2023-09-15] MEDS: acetaminophen 500 mg Tablet PO (11:31)
[2023-09-15 11:48] LABS: Glucose Point of Care 217 mg/dL (70-110)
[2023-09-15] MEDS: hyDRALAzine 20 mg/mL INJ 1 mL 5 MG IVP (12:01)
--- NOTE | 2023-09-15 13:53 | PM.PN ---
Subjective Subjective: Awaiting placement Hemoglobin is stable Vitals/I&O/Wt Last Vital Signs Temp 98.7 F 09/15/23 11:39 Pulse 79 09/15/23 11:39 Resp 18 09/15/23 07:34 BP 181/70 09/15/23 11:39 Pulse Ox 93 09/15/23 11:39 O2 Del Method Nasal Cannula 09/15/23 11:39 O2 Flow Rate 3 09/15/23 07:34 FiO2 30 09/15/23 03:35 09/14/23 09/15/23 09/15/23 22:59 06:59 14:59 Intake Total 620 / 1100 50 / 50 Output Total 550 / 1900 1000 / 2900 Balance 70 / -800 -1000 / -1800 50 / 50 Physical Exam Narrative: Morbidly beast Laying flat Juárez catheter in place Juventino 50 Currently on 3 L nasal cannula Distended abdomen Intertrigo under breast and groin improving Urinary Catheter Management: Juárez: Cath Placed During This Visit: yes Reason for Continuing Indwelling Catheter: Accurate Measurement of Urinary Output in Critically Ill Patients Urinary Catheter Date of Insertion: 09/08/23 Data 09/16/23 05:26 09/16/23 05:26 Micro: Microbiology 09/14/23 11:17 Occult Blood (FIT) - Final Stool A&P Assessment and plan (1) Gastric ulcer: (2) Hospital-acquired pneumonia: (3) Acute exacerbation of CHF (congestive heart failure): (4) Acute on chronic renal failure: (5) Situational anxiety: (6) Anemia: Plan Awaiting placement Continue Lasix We will remove Juárez catheter tomorrow Creatinine and hemoglobin stable Currently doing well on nasal cannula in the morning BiPAP at night. Attestations Medical Necessity Statement*: Continue medical management Diagnoses Gastric ulcer K25.9 Hospital-acquired pneumonia J18.9; Y95 Acute exacerbation of CHF (congestive heart failure) I50.9 Acute on chronic renal failure N17.9; N18.9 Situational anxiety F41.8 Anemia D64.9
[2023-09-15 14:05] LABS: Methicillin-Resist S.aureu PCR NOT DETECTED (NOT DETECTED)
[2023-09-15] MEDS: hyDRALAzine 25 mg Tablet 50 MG PO ×2 (15:38→19:17)
[2023-09-15 16:53] LABS: Glucose Point of Care 221 mg/dL (70-110)
--- NOTE | 2023-09-15 17:28 | PC.NURSE ---
Patient requested something for anxiety for bedtime. Nurse asked Dr. Arthur for something and he wrote for 0.5mg Xanax BID PRN. Order entered by nurse.
[2023-09-15] MEDS: ALPRAZolam 0.5 mg Tablet PO (19:17)
[2023-09-15] MEDS: nystatin powder 15 gm Btl 1 APPLIC TOPICAL (19:18)
[2023-09-15 21:00] LABS: Glucose Point of Care 172 mg/dL (70-110)
[2023-09-16] VITALS (12 sets, daily range): BP systolic 149–177; BP diastolic 56–113; PULSE 74–82; RESP 13–27; TEMP 36.6–37.1; O2SAT 96–99
[2023-09-16] MEDS: levoFLOXacin 750 mg Tablet PO (05:22)
[2023-09-16 05:45] LABS: Basophils # 0.1 10^3/uL (0.0-0.1); Basophils % 1.2 %; Eosinophils # 0.3 10^3/uL (0.0-0.8); Eosinophils % 5.6 %; Hematocrit 26.5 % (36-47); Lymphocytes # 0.8 10^3/uL (0.8-4.8); Mean Corpuscular HGB Conc 30.6 g/dL (30-55); Mean Corpuscular Hemoglobin 28.3 pg (27-33); Mean Corpuscular Volume 92.7 fl (85-98); Mean Platelet Volume 11.2 fL (7.4-10.4); Monocytes # 0.7 10^3/uL (0.2-0.9); Monocytes % 12.7 %; Neutrophils # 3.34 10^3/uL (1.8-7.7); Neutrophils % 64.3 %; Nucleated Red Blood Cells % 0 %; Platelet Count 210 10^3/cmm (157-399); Red Blood Count 2.86 10^6/uL (3.85-5.65); Red Cell Distribution Width 14.6 % (12.1-15.1); White Blood Count 5.19 10^3/uL (3.29-11.43)
[2023-09-16 06:07] LABS: Anion Gap 14.5 (5-19); Blood Urea Nitrogen 39 mg/dL (8-23); Calcium 9.7 mg/dL (8.5-10.5); Carbon Dioxide 30 mmol/L (22-29); Chloride 105 mmol/L (98-107); Glomerular Filtration Rate 32.2 mL/min (90-130); Glucose 163 mg/dL (65-115); Osmolality Calculated 313 mOsm/kg (285-295); Potassium 4.5 mmol/L (3.5-5.1); Sodium 145 mmol/L (136-145)
[2023-09-16 06:40] LABS: Glucose Point of Care 180 mg/dL (70-110)
[2023-09-16] MEDS: metoprolol tartrate 25 mg Tablet PO ×2 (08:53→17:50)
[2023-09-16] MEDS: pantoprazole DR 40 mg Tablet PO ×2 (08:53→17:50)
[2023-09-16] MEDS: isosorbide mononitrate ER 60 mg Tablet PO (08:53)
[2023-09-16] MEDS: sennosides-docusate Tablet 1 TAB PO (08:53)
[2023-09-16] MEDS: potassium chloride ER 20 mEq Tablet 40 MEQ PO (08:54)
[2023-09-16] MEDS: FUROsemide 10 mg/mL SDV 10mL 60 MG IVP (08:54)
[2023-09-16] MEDS: lisinopril 10 mg Tablet PO (08:54)
[2023-09-16] MEDS: metOLazone 5 MG Tablet PO (08:54)
[2023-09-16] MEDS: insulin lispro 100 unit/1 mL SUBCUT ×3 (08:54→17:50)
[2023-09-16] MEDS: hyDRALAzine 25 mg Tablet 50 MG PO ×3 (08:56→19:57)
[2023-09-16] MEDS: nystatin powder 15 gm Btl 1 APPLIC TOPICAL ×2 (08:57→17:51)
--- NOTE | 2023-09-16 10:38 | PM.PN ---
Subjective Subjective: Patient endorsing feeling better We will remove Juárez catheter today Awaiting placement Hemoglobin stable Vitals/I&O/Wt Last Vital Signs Temp 97.9 F 09/16/23 07:30 Pulse 82 09/16/23 09:23 Resp 18 09/16/23 09:23 BP 177/87 09/16/23 07:30 Pulse Ox 96 09/16/23 09:23 O2 Del Method Nasal Cannula 09/16/23 09:23 O2 Flow Rate 3 09/16/23 09:23 FiO2 30 09/16/23 04:20 09/15/23 09/16/23 09/16/23 22:59 06:59 14:59 Intake Total 300 / 350 400 / 750 240 / 240 Output Total 550 / 1500 Balance 300 / -600 -150 / -750 240 / 240 Physical Exam Narrative: awake and alert Currently doing well on 3 L nasal cannula interigo improving S1, S2 Pleasant and cooperative Urinary Catheter Management: Juárez: Cath Placed During This Visit: yes Reason for Continuing Indwelling Catheter: Acute Urinary Retention or Obstruction Urinary Catheter Date of Insertion: 09/08/23 Data 09/16/23 05:26 09/16/23 05:26 A&P Assessment and plan (1) Gastric ulcer: (2) Hospital-acquired pneumonia: (3) Acute exacerbation of CHF (congestive heart failure): (4) Acute on chronic renal failure: Plan Awaiting placement Will remove Juárez catheter today Continue PT BiPAP at night Discontinue metolazone Attestations Medical Necessity Statement*: continue Medical therapy Diagnoses Gastric ulcer K25.9 Hospital-acquired pneumonia J18.9; Y95 Acute exacerbation of CHF (congestive heart failure) I50.9 Acute on chronic renal failure N17.9; N18.9
[2023-09-16 11:04] LABS: Glucose Point of Care 234 mg/dL (70-110)
--- NOTE | 2023-09-16 12:24 | PC.SOCIAL ---
IMM Updated Updated pt on IMM. No questions voiced. Provided pt a copy. Initialed, dated, & timed copy in chart.
[2023-09-16 13:24] LABS: SARS Covid-2 Antigen negative (Negative)
[2023-09-16 17:17] LABS: Glucose Point of Care 198 mg/dL (70-110)
--- NOTE | 2023-09-16 18:15 | PC.NURSE ---
Patient refused removal of bustillo catheter, wants to talk to hospitalist before.
[2023-09-16] MEDS: ALPRAZolam 0.5 mg Tablet PO (19:57)
[2023-09-16 21:17] LABS: Glucose Point of Care 212 mg/dL (70-110)
[2023-09-17] VITALS (15 sets, daily range): BP systolic 123–184; BP diastolic 57–93; PULSE 72–91; RESP 15–28; TEMP 36.6–37.2; O2SAT 97–100
[2023-09-17 06:18] LABS: Glucose Point of Care 181 mg/dL (70-110)
--- NOTE | 2023-09-17 08:22 | PC.NURSE ---
Spoke with Dr. Arthur about the pt still having her bustillo catheter in place. Dr. Khanna said that it would ashley okay to leave in place until day of discharge.
[2023-09-17] MEDS: lisinopril 10 mg Tablet PO (08:58)
[2023-09-17] MEDS: bumetanide 1 mg Tablet PO (08:58)
[2023-09-17] MEDS: hyDRALAzine 25 mg Tablet PO (08:58)
[2023-09-17] MEDS: sennosides-docusate Tablet 1 TAB PO (08:59)
[2023-09-17] MEDS: insulin lispro 100 unit/1 mL SUBCUT ×3 (08:59→17:53)
[2023-09-17] MEDS: isosorbide mononitrate ER 60 mg Tablet PO (08:59)
[2023-09-17] MEDS: metoprolol tartrate 25 mg Tablet PO ×2 (08:59→17:53)
[2023-09-17] MEDS: potassium chloride ER 20 mEq Tablet 40 MEQ PO (08:59)
[2023-09-17] MEDS: pantoprazole DR 40 mg Tablet PO ×2 (08:59→17:53)
[2023-09-17] MEDS: hyDRALAzine 25 mg Tablet 50 MG PO (09:00)
[2023-09-17] MEDS: nystatin powder 15 gm Btl 1 APPLIC TOPICAL ×2 (09:06→17:57)
[2023-09-17] MEDS: ipratropium-albuterol 3 mL Neb INHALATION ×2 (09:11→20:41)
--- NOTE | 2023-09-17 10:04 | PM.PN ---
Subjective Subjective: Patient is stating that her right hand has been causing some issues she is not able to hold a cup We talked about resplint possible carpal tunnel I do not see any evidence of swelling or redness of skin fracture is unlikely She is happy with the progress Currently on 3 L nasal cannula She wants to keep the Juárez catheter until the day of discharge She complains of stabbing pain under her left breast, which gets worse on exertion Vitals/I&O/Wt Last Vital Signs Temp 98.5 F 09/17/23 07:45 Pulse 89 09/17/23 07:58 Resp 18 09/17/23 07:58 BP 184/73 09/17/23 07:45 Pulse Ox 98 09/17/23 07:58 O2 Del Method Nasal Cannula 09/17/23 07:58 O2 Flow Rate 3 09/17/23 07:58 FiO2 30 09/16/23 04:20 09/16/23 09/17/23 09/17/23 22:59 06:59 14:59 Intake Total 240 / 480 200 / 680 240 / 240 Output Total 500 / 500 Balance 240 / 480 -300 / 180 240 / 240 Weight last 48 hrs Weight 153.722 kg Physical Exam Narrative: Morbidly obese No signs of shingles S1, S2 variable Abdomen soft Distended Abdominal pannus cellulitis improving Intertrigo under the breast Distended abdomen Lower extremity edema improving Juárez catheter in place Nonfocal neuro exam Currently on 3 L Urinary Catheter Management: Juárez: Cath Placed During This Visit: yes Reason for Continuing Indwelling Catheter: Acute Urinary Retention or Obstruction Urinary Catheter Date of Insertion: 09/08/23 Data 09/16/23 05:26 09/16/23 05:26 A&P Assessment and plan (1) Gastric ulcer: (2) Hospital-acquired pneumonia: (3) Acute exacerbation of CHF (congestive heart failure): (4) Acute on chronic renal failure: (5) Situational anxiety: (6) Benign hypertension: (7) Chronic diastolic heart failure: (8) Edema: (9) Intermittent atrial fibrillation: Plan Will repeat labs for tomorrow Awaiting placement We will use wrist splint for carpal tunnel right arm Continue p.o. diuretics Currently on 3 L Continue BiPAP overnight Patient wants to keep the Juárez catheter in until date of discharge Attestations Medical Necessity Statement*: Awaiting placement Diagnoses Gastric ulcer K25.9 Hospital-acquired pneumonia J18.9; Y95 Acute exacerbation of CHF (congestive heart failure) I50.9 Acute on chronic renal failure N17.9; N18.9 Situational anxiety F41.8 Benign hypertension I10 Chronic diastolic heart failure I50.32 Edema R60.9 Intermittent atrial fibrillation I48.0
[2023-09-17] MEDS: hyDRALAzine 50 mg Tablet 100 MG PO ×2 (15:30→20:35)
[2023-09-17 17:42] LABS: Glucose Point of Care 229 mg/dL (70-110)
[2023-09-17 20:18] LABS: Glucose Point of Care 233 mg/dL (70-110)
[2023-09-17 20:18] LABS: Glucose Point of Care 212 mg/dL (70-110)
[2023-09-17] MEDS: ALPRAZolam 0.5 mg Tablet PO (20:35)
[2023-09-18] VITALS (10 sets, daily range): BP systolic 142–158; BP diastolic 54–84; PULSE 71–85; RESP 14–28; TEMP 36.5–37; O2SAT 96–98
[2023-09-18] MEDS: acetaminophen 500 mg Tablet PO ×2 (02:35→09:24)
[2023-09-18 04:33] LABS: Basophils # 0.1 10^3/uL (0.0-0.1); Basophils % 1.2 %; Eosinophils # 0.2 10^3/uL (0.0-0.8); Eosinophils % 3.2 %; Hematocrit 27.5 % (36-47); Lymphocytes # 0.9 10^3/uL (0.8-4.8); Lymphocytes % 16.7 %; Mean Corpuscular HGB Conc 29.5 g/dL (30-55); Mean Corpuscular Hemoglobin 28.6 pg (27-33); Mean Corpuscular Volume 97.2 fl (85-98); Mean Platelet Volume 11.5 fL (7.4-10.4); Monocytes # 0.6 10^3/uL (0.2-0.9); Monocytes % 11.2 %; Neutrophils # 3.73 10^3/uL (1.8-7.7); Neutrophils % 66.5 %; Nucleated Red Blood Cells % 0 %; Platelet Count 208 10^3/cmm (157-399); Red Blood Count 2.83 10^6/uL (3.85-5.65); White Blood Count 5.62 10^3/uL (3.29-11.43)
[2023-09-18 05:05] LABS: Blood Urea Nitrogen 39 mg/dL (8-23); Calcium 9.4 mg/dL (8.5-10.5); Carbon Dioxide 28 mmol/L (22-29); Chloride 104 mmol/L (98-107); Glomerular Filtration Rate 28.2 mL/min (90-130); Glucose 203 mg/dL (65-115); Osmolality Calculated 307 mOsm/kg (285-295); Sodium 141 mmol/L (136-145)
[2023-09-18 06:38] LABS: Glucose Point of Care 194 mg/dL (70-110)
--- NOTE | 2023-09-18 09:09 | PM.PN ---
Subjective Subjective: Patient will be given Bumex 2 mg IV Stating that she is feeling fluid coming back in her legs She is motivated to get out of bed sitting in recliner Currently on 2 to 3 L of nasal cannula No overnight events -6 L balance Vitals/I&O/Wt Last Vital Signs Temp 97.7 F 09/18/23 04:00 Pulse 74 09/18/23 07:48 Resp 18 09/18/23 07:48 BP 142/54 09/18/23 04:00 Pulse Ox 98 09/18/23 07:48 O2 Del Method Nasal Cannula 09/18/23 07:48 O2 Flow Rate 22 09/18/23 07:48 FiO2 30 09/18/23 04:00 09/17/23 09/18/23 09/18/23 22:59 06:59 14:59 Intake Total 180 / 900 Output Total 800 / 800 100 / 900 Balance -620 / 100 -100 / 0 Weight last 48 hrs Weight 155.491 kg Weight 153.722 kg Physical Exam Narrative: Signs of fluid load present but improving Currently on 3 L Awake and alert GCS 15 S1, S2 Normotensive Pleasant Abdominal pannus without any worsening of cellulitis Intertrigo improving Urinary Catheter Management: Juárez: Cath Placed During This Visit: yes Reason for Continuing Indwelling Catheter: Acute Urinary Retention or Obstruction Urinary Catheter Date of Insertion: 09/08/23 Data 09/18/23 04:25 09/18/23 04:25 A&P Assessment and plan (1) Gastric ulcer: (2) Hospital-acquired pneumonia: (3) Acute exacerbation of CHF (congestive heart failure): (4) Acute on chronic renal failure: (5) Situational anxiety: (6) Benign hypertension: (7) Chronic diastolic heart failure: (8) Seronegative rheumatoid arthritis of both hands: (9) Anemia: Plan Acute diastolic CHF exacerbation: Given 2 mg IV Bumex today -6 L balance Chronic kidney disease: Baseline creatinine seems to be around 2-2.7 Creatinine stable Anticipated creatinine rise with lisinopril up to 20% Acute on chronic hypoxia: Resolved currently on 3 L Acute on chronic anemia Status post 1 unit PRBC FOBT negative Patient will need shelter placement on Tuesday we will touch base with mental health case managerconsulting practice manager consistent carb diet Hospital-acquired pneumonia Did well on antibiotic course, afebrile, Working with PT DVT prophylaxis can be initiated Hypertension: Normotensive today, hydralazine dose increased yesterday Attestations Medical Necessity Statement*: Hopefully will be able to discharge her tomorrow Diagnoses Gastric ulcer K25.9 Hospital-acquired pneumonia J18.9; Y95 Acute exacerbation of CHF (congestive heart failure) I50.9 Acute on chronic renal failure N17.9; N18.9 Situational anxiety F41.8 Benign hypertension I10 Chronic diastolic heart failure I50.32 Seronegative rheumatoid arthritis of both hands M06.041; M06.042 Anemia D64.9
[2023-09-18] MEDS: pantoprazole DR 40 mg Tablet PO ×2 (09:17→18:06)
[2023-09-18] MEDS: lisinopril 10 mg Tablet PO (09:17)
[2023-09-18] MEDS: metoprolol tartrate 25 mg Tablet PO ×2 (09:17→18:06)
[2023-09-18] MEDS: hyDRALAzine 50 mg Tablet 100 MG PO ×3 (09:18→20:48)
[2023-09-18] MEDS: isosorbide mononitrate ER 60 mg Tablet PO (09:18)
[2023-09-18] MEDS: sennosides-docusate Tablet 1 TAB PO (09:18)
[2023-09-18] MEDS: bumetanide 0.25 mg/mL SDV 10 mL 2 MG IVP (09:18)
[2023-09-18] MEDS: insulin lispro 100 unit/1 mL SUBCUT ×3 (09:18→18:07)
[2023-09-18] MEDS: magnesium oxide 400 mg tablet PO (09:34)
[2023-09-18] MEDS: nystatin powder 15 gm Btl 1 APPLIC TOPICAL ×2 (09:49→18:11)
[2023-09-18 11:46] LABS: Glucose Point of Care 205 mg/dL (70-110)
[2023-09-18 17:47] LABS: Glucose Point of Care 232 mg/dL (70-110)
[2023-09-18] MEDS: heparin 5,000 unit/mL INJ 1 mL 5000 UNIT SUBCUT (18:06)
[2023-09-18] MEDS: ipratropium-albuterol 3 mL Neb INHALATION (19:16)
[2023-09-18] MEDS: ALPRAZolam 0.5 mg Tablet PO (20:48)
[2023-09-18 20:58] LABS: Glucose Point of Care 242 mg/dL (70-110)
[2023-09-19] VITALS (9 sets, daily range): BP systolic 135–171; BP diastolic 54–103; PULSE 74–84; RESP 5–24; TEMP 37; O2SAT 94–99
[2023-09-19 05:24] LABS: Basophils # 0.1 10^3/uL (0.0-0.1); Basophils % 1.1 %; Eosinophils # 0.2 10^3/uL (0.0-0.8); Eosinophils % 3.8 %; Hematocrit 26.5 % (36-47); Lymphocytes # 0.9 10^3/uL (0.8-4.8); Lymphocytes % 15.9 %; Mean Corpuscular HGB Conc 30.2 g/dL (30-55); Mean Corpuscular Hemoglobin 28.1 pg (27-33); Mean Platelet Volume 11.6 fL (7.4-10.4); Monocytes # 0.5 10^3/uL (0.2-0.9); Monocytes % 9.7 %; Neutrophils % 68.1 %; Nucleated Red Blood Cells % 0 %; Platelet Count 193 10^3/cmm (157-399); Red Blood Count 2.85 10^6/uL (3.85-5.65); Red Cell Distribution Width 14.9 % (12.1-15.1); White Blood Count 5.58 10^3/uL (3.29-11.43)
[2023-09-19 05:52] LABS: Anion Gap 12.7 (5-19); Blood Urea Nitrogen 40 mg/dL (8-23); Calcium 9.5 mg/dL (8.5-10.5); Carbon Dioxide 31 mmol/L (22-29); Chloride 102 mmol/L (98-107); Glomerular Filtration Rate 23.6 mL/min (90-130); Glucose 225 mg/dL (65-115); Osmolality Calculated 309 mOsm/kg (285-295); Potassium 4.7 mmol/L (3.5-5.1); Sodium 141 mmol/L (136-145)
[2023-09-19 06:04] LABS: Glucose Point of Care 227 mg/dL (70-110)
[2023-09-19] MEDS: acetaminophen 500 mg Tablet PO (06:11)
[2023-09-19] MEDS: ipratropium-albuterol 3 mL Neb INHALATION (08:19)
[2023-09-19] MEDS: nystatin powder 15 gm Btl 1 APPLIC TOPICAL (09:37)
[2023-09-19] MEDS: hyDRALAzine 50 mg Tablet 100 MG PO ×2 (09:40→14:06)
[2023-09-19] MEDS: metoprolol tartrate 25 mg Tablet PO (09:40)
[2023-09-19] MEDS: bumetanide 1 mg Tablet 2 MG PO (09:40)
[2023-09-19] MEDS: pantoprazole DR 40 mg Tablet PO (09:41)
[2023-09-19] MEDS: lisinopril 10 mg Tablet PO (09:41)
[2023-09-19] MEDS: isosorbide mononitrate ER 60 mg Tablet PO (09:41)
[2023-09-19] MEDS: heparin 5,000 unit/mL INJ 1 mL 5000 UNIT SUBCUT (09:41)
[2023-09-19] MEDS: sennosides-docusate Tablet 1 TAB PO (09:41)
[2023-09-19] MEDS: insulin lispro 100 unit/1 mL SUBCUT ×2 (09:41→14:06)
[2023-09-19] MEDS: magnesium oxide 400 mg tablet PO (09:41)
--- NOTE | 2023-09-19 11:04 | PM.DCS ---
Discharge Providers Date of Admission: 09/08/23 18:50 Date of Discharge: September 15, 2023 Attending Provider at Admission: Yoselin Arthur MD Attending Provider at Discharge: Yoselin Arthur MD Primary Care Provider: PARAG Mensah Diagnoses at Discharge Discharge Diagnosis (1) Gastric ulcer: Status: Acute Permanent problem details: H. pylori ruled out at [facility] (2) Hospital-acquired pneumonia: Status: Acute (3) Acute exacerbation of CHF (congestive heart failure): Status: Acute (4) Acute on chronic renal failure: Status: Acute (5) Situational anxiety: Status: Chronic (6) Benign hypertension: Status: Chronic (7) Chronic diastolic heart failure: Status: Chronic (8) Dietary noncompliance: Status: Chronic (9) Monoclonal gammopathy: Status: Acute (10) Anemia: Status: Acute (11) Edema: Status: Acute Reason for Visit Reason for Visit: Shortness of breath Hospital Course Hospital Course 68-year-old female who carries history of chronic kidney disease stage IV, monoclonal gammopathy, chronic anemia, diastolic CHF, factor V Leyden mutation, morbid obesity, chronic hypoxia, was transferred from our hospital to [facility] for complications i.e excessive bleeding related to temporal dialysis catheter placement in femoral vein while on Eliquis for her factor V mutation, she spent a lot of time at the [facility], got discharged from the [facility] on 2 L of oxygen to home because she refused to go to SNF, presented next day to our hospital with chief complaint of worsening of shortness of breath and generalized weakness. Patient was diagnosed with diastolic CHF exacerbation, Juárez catheter was inserted, she was given IV Lasix 60 mg every 12 hours with adequate urine output which resulted in improvement in her creatinine from 2.0 to 1.6. She did not show any signs of acidosis or worsening of kidney function. She was kept on 2 to 3 L of oxygen during daytime and BiPAP at night to help her improve her labored breathing, x-ray showed vascular congestion. Please note, she was empirically treated for possible hospital-acquired pneumonia with anti-MRSA antibiotics and antipseudomonal coverage because she spiked fever 101.3 in the ER on admission, no further febrile episode noticed during hospitalization, cultures are negative to date. During hospitalization her hemoglobin dropped to 6.8 required 1 unit PRBC. Hemoglobin today is above 8, her daughter was concerned that she still has slow GI bleed that would require further intervention and investigation and requested transfer to [facility] however her hemoglobin remained stable after blood transfusion. Records from [facility] reviewed, patient had EGD and colonoscopy, because of Inadequate colon prep colonoscopy was no not eventful it showed diverticulosis in left colon non bleeding internal hemorrhoids, no specimen was collected, however she did show stigmata of bleeding on EGD, H. pylori was negative, normal esophagus, erosive gastropathy with stigmata of recent bleed, which was biopsied, erythematous mucosa in antrum, biopsied, normal examined duodenum, Patient was discharged on Augmentin and doxycycline, there was concern for abdominal wall cellulitis Eliquis was discontinued related to anemia I presented this case to [facility] hospitalist nurse practitioner Maria Dolores, patient was accepted under Dr. Rodgers however her hemoglobin remained above 8 and creatinine started improving with diuretics decision was made to cancel transfer request At the time of discharge patient will get Bumex twice daily regimen, Entresto and Eliquis discontinued, she will use 2 to 3 L of oxygen during the daytime and BiPAP at night, she will use nystatin powder for her intertrigo under the breast and groin area she may finish doxycycline and Augmentin course. Creatinine function has improved she may resume her hydroxychloroquine for inflammatory polyarthritis. Physical Exam Narrative: Morbidly obese female Intertrigo abdominal pannus and under the breast Signs of fluid overload present but improving Pleasant and cooperative Currently on 3 L nasal cannula Abdomen soft, distended Urinary Catheter Management: Juárez: Cath Placed During This Visit: yes Reason for Continuing Indwelling Catheter: Accurate Measurement of Urinary Output in Critically Ill Patients Urinary Catheter Date of Insertion: 09/08/23 Discharge Data Studies Completed and Pending Completed Studies During Hospitalization Category Date Time Status XR chest 1V portable [id number] Routine Exams 09/11/23 13:45 Completed XR chest 1V portable [id number] Stat Exams 09/08/23 12:24 Completed Pending at discharge Category Date Time Status MRSA [Methicillin Resistant S.aureu] Routine Lab 09/12/23 12:20 Received Sputum Culture and Gram Stain Stat Lab 09/08/23 14:43 Uncollected Radiology Impressions Chest X-Ray 09/11/23 13:45 IMPRESSION: Mild cardiomegaly, CHF pattern with nonspecific opacity and accompanying pleural effusion right lower lung zone as discussed above. Laboratory Results WBC 4.98 10^3/uL (3.29-11.43) 09/14/23 06:14 RBC 2.90 10^6/uL (3.85-5.65) L 09/14/23 06:14 Hgb 8.30 g/dL (11.27-16.99) L 09/15/23 08:40 Hct 27.1 % (36-47) L 09/15/23 08:40 MCV 92.1 fl (85-98) 09/14/23 06:14 MCH 28.3 pg (27-33) 09/14/23 06:14 MCHC 30.7 g/dL (30-55) 09/14/23 06:14 RDW 14.7 % (12.1-15.1) 09/14/23 06:14 Plt Count 209 10^3/cmm (157-399) 09/14/23 06:14 MPV 11.1 fL (7.4-10.4) H 09/14/23 06:14 Neut % (Auto) 64.1 % 09/14/23 06:14 Lymph % (Auto) 16.7 % 09/14/23 06:14 [place] % (Auto) 11.6 % 09/14/23 06:14 Eos % (Auto) 5.8 % 09/14/23 06:14 Baso % (Auto) 1.4 % 09/14/23 06:14 Neut # (Auto) 3.19 10^3/uL (1.8-7.7) 09/14/23 06:14 Lymph # (Auto) 0.8 10^3/uL (0.8-4.8) 09/14/23 06:14 [place] # (Auto) 0.6 10^3/uL (0.2-0.9) 09/14/23 06:14 Eos # (Auto) 0.3 10^3/uL (0.0-0.8) 09/14/23 06:14 Baso # (Auto) 0.1 10^3/uL (0.0-0.1) 09/14/23 06:14 Nucleated RBC % (auto) 0 % 09/14/23 06:14 Nucleated RBCs # 0.0 /100WBC 09/14/23 06:14 Specimen Type Arterial 09/08/23 12:41 Sample Site Radial, right 09/08/23 12:41 ABG pH 7.42 (7.35-7.45) 09/08/23 12:41 ABG pCO2 49.4 mmHg (35-45) H 09/08/23 12:41 ABG pO2 71.4 mmHg (80.0-100.0) L 09/08/23 12:41 ABG HCO3 32.1 mmol/L (22-26) H 09/08/23 12:41 ABG O2 Saturation 96.7 09/08/23 12:41 ABG Base Excess 6.8 mmol/L (-2.0-2.0) H 09/08/23 12:41 Sharad Test Pos 09/08/23 12:41 A-a O2 Gradient 2.2 mmHg (5-10) L 09/08/23 12:41 Hematocrit 26.1 % (37-47) L 09/08/23 12:41 Hgb O2 Saturation 93.4 % (95-100) L 09/08/23 12:41 Carboxyhemoglobin 2.5 %THgb (0.4-20.1) 09/08/23 12:41 Methemoglobin 1.0 % (0.4-1.5) 09/08/23 12:41 Total Hemoglobin 8.5 g/dL (12-16) L 09/08/23 12:41 Sodium 145.0 mmol/L (131-143) H 09/08/23 12:41 Potassium 3.5 mmol/L (3.5-5.0) 09/08/23 12:41 Glucose 186.0 mg/dL (70-115) H 09/08/23 12:41 Ionized Calcium 1.3 mmol/L (1.1-1.4) 09/08/23 12:41 O2 Delivery Device Not Reportable 09/08/23 12:41 O2 Liters/Min 2.0 % 09/08/23 12:41 Shellfish Checker ID Anurag 09/08/23 12:41 Sodium 145 mmol/L (136-145) 09/14/23 06:14 Potassium 4.6 mmol/L (3.5-5.1) 09/14/23 06:14 Chloride 106 mmol/L (98-107) 09/14/23 06:14 Carbon Dioxide 31 mmol/L (22-29) H 09/14/23 06:14 Anion Gap 12.6 (5-19) 09/14/23 06:14 BUN 39 mg/dL (8-23) H 09/14/23 06:14 Creatinine 1.3 mg/dL (0.5-0.9) H 09/14/23 06:14 GFR Calculation 41.0 mL/min (90-130) L 09/14/23 06:14 Glucose 161 mg/dL (65-115) H 09/14/23 06:14 POC Glucose 184 mg/dL (70-110) H 09/15/23 06:13 Estimat Average Glucose 128 09/08/23 12:56 Hemoglobin A1c 6.1 % (4.0-6.0) H 09/08/23 12:56 Calculated Osmolality 313 mOsm/kg (285-295) H 09/14/23 06:14 Calcium 9.5 mg/dL (8.5-10.5) 09/14/23 06:14 Phosphorus 3.9 mg/dL (2.5-4.5) 09/09/23 04:41 Magnesium 1.9 mg/dL (1.7-2.3) 09/12/23 03:44 Total Bilirubin 0.6 mg/dL (0.15-1.2) 09/12/23 03:44 AST 16 U/L (0-32) 09/12/23 03:44 ALT 15 U/L (0-33) 09/12/23 03:44 Alkaline Phosphatase 68 U/L (35-105) 09/12/23 03:44 C-Reactive Protein 45.5 mg/L (0.0-4.9) H 09/12/23 03:44 NT-Pro-B Natriuret Pep 8703 pg/mL (0-125) H 09/08/23 12:56 Total Protein 6.5 g/dL (6.6-8.7) L 09/12/23 03:44 Albumin 3.6 g/dL (3.5-5.2) 09/12/23 03:44 Globulin 2.9 g/dL (1.3-4.6) 09/12/23 03:44 Vitamin B12 1045 pg/mL (232-1245) 09/08/23 12:56 Procalcitonin 0.16 ng/mL (0-0.5) 09/08/23 12:56 TSH 2.91 uIU/mL (0.27-4.20) 09/12/23 03:44 Urine Color Colorless (Yellow) 09/08/23 18:04 Urine Appearance Sl hazy (CLEAR) A 09/08/23 18:04 Urine pH 7 (5-7) 09/08/23 18:04 Ur Specific [place] 1.010 (1.005-1.030) 09/08/23 18:04 Urine Protein Neg (Negative) 09/08/23 18:04 Urine Glucose (UA) Norm (Normal) 09/08/23 18:04 Urine Ketones 1+ (Negative) H 09/08/23 18:04 Urine Blood Neg (Negative) 09/08/23 18:04 Urine Nitrate Negative (Negative) 09/08/23 18:04 Urine Bilirubin Neg (Negative) 09/08/23 18:04 Urine Urobilinogen Norm mg/dL (Negative) 09/08/23 18:04 Ur Leukocyte Esterase Negative (Negative) 09/08/23 18:04 Urine RBC 0-4 /hpf (0-2) H 09/08/23 18:04 Urine WBC Rare /hpf (0-5) 09/08/23 18:04 Ur Squamous Epith Cells 5-10 /hpf (0-5) H 09/08/23 18:04 Amorphous Sediment Not Reportable 09/08/23 18:04 Urine Bacteria None /hpf (NONE) 09/08/23 18:04 Urine Mucus None /hpf 09/08/23 18:04 Vancomycin Trough 34.1 ug/mL (10-15) H* 09/10/23 21:35 Coronavirus 229E (PCR) Not detected (NOT DETECT) 09/08/23 15:14 Human Metapneumovir PCR Not detected (NOT DETECT) 09/08/23 18:00 Influenza Type A Ag negative (Negative) 09/08/23 15:14 Influenza Type B Ag negative (Negative) 09/08/23 15:14 Entero/Rhino (PCR) Detected (NOT DETECT) A 09/08/23 18:00 SARS-CoV-2 (PCR) Not detected (NOT DETECT) 09/08/23 15:14 Blood Type B Positive 09/08/23 12:56 Rho(D) Type Positive 09/08/23 12:56 Antibody Screen Negative 09/08/23 12:56 Crossmatch See Detail 09/08/23 12:56 Vitals Last Vital Signs Temp 98.3 F 09/15/23 07:33 Pulse 76 09/15/23 09:50 Resp 18 09/15/23 07:34 BP 161/58 09/15/23 09:45 Pulse Ox 96 09/15/23 09:50 O2 Del Method Nasal Cannula 09/15/23 07:34 O2 Flow Rate 3 09/15/23 07:34 FiO2 30 09/15/23 03:35 Discharge Plan Discharge Patient Disposition: Xfer SNF Condition: Stable Prescriptions: New nystatin [Nystop] 100,000 unit/gram Powder 1 applic topical BID Qty: 15 1RF hydralazine 25 mg Tablet 50 mg PO TID Qty: 90 2RF amlodipine 10 mg tablet 10 mg PO DAILY Qty: 60 3RF metoprolol tartrate 25 mg tablet 25 mg PO BID Qty: 60 0RF lisinopril 10 mg tablet 10 mg PO DAILY Qty: 20 0RF potassium chloride 10 mEq tablet extended release 10 meq PO BID Qty: 60 0RF Rx Instructions: only with bumex Continued (DME) wheelchair cushions See Rx Instructions .Route .MEDSUPPLY Qty: 1 0RF Rx Instructions: As directed (DME) Alternating pressure mattress and pressure pump See Rx Instructions .Route .MEDSUPPLY Qty: 1 0RF Rx Instructions: As directed hydroxychloroquine 200 mg tablet 200 mg PO BID Qty: 180 1RF dicyclomine 20 mg tablet 20 mg PO QID Qty: 120 2RF hydroxyzine pamoate 50 mg capsule 50 mg PO TID Qty: 90 2RF insulin degludec [Tresiba FlexTouch U-200] 200 unit/mL (3 mL) insulin pen 80 unit SUBCUT DAILY Qty: 18 2RF insulin lispro [Humalog KwikPen Insulin] 100 unit/mL insulin pen See Rx Instructions SUBCUT .COMPLEX Qty: 15 0RF Rx Instructions: 6-27U SUBCUT three times daily subcutaneously; per sliding scale triamcinolone acetonide 0.1 % ointment 1 applic TOPICAL DAILY PRN (Reason: itching) Qty: 30 0RF Rx Instructions: skin arms, legs torso (DME) lancing device with lancets [OneTouch Delica Plus Lanc Dev] Kit See Rx Instructions .Route Qty: 1 0RF Rx Instructions: As directed (DME) lancets [OneTouch Delica Lancets] 33 gauge misc See Rx Instructions .Route Qty: 100 5RF Rx Instructions: three times day (DME) diabetic shoes with inserts See Rx Instructions .Route .MEDSUPPLY Qty: 1 0RF Rx Instructions: As directed (DME) Motorized lift chair See Rx Instructions .Route .MEDSUPPLY Qty: 1 0RF Rx Instructions: As directed (DME) OneTouch Ultra Test Strip See Rx Instructions .Route Qty: 100 5RF Rx Instructions: 1 strip three time day clindamycin phosphate 1 % lotion See Rx Instructions .ROUTE .COMPLEX Qty: 60 1RF Dose Instruction: APPLY TOPICALLY TWICE DAILY NEEDED FOR SKIN IRRITATION Rx Instructions: APPLY TOPICALLY TWICE DAILY NEEDED FOR SKIN IRRITATION torsemide 100 mg tablet 100 mg PO DAILY Qty: 90 3RF Rx Instructions: Dose increased potassium chloride 20 mEq tablet extended release 30 meq PO DAILY Qty: 135 3RF nitroglycerin [Nitrostat] 0.4 mg tablet, sublingual 0.4 mg SUBLINGUAL Q5M PRN (Reason: Chest Pain) Qty: 50 3RF Rx Instructions: do not exceed 3 doses per episode (DME) blood-glucose meter [IronPort Systemsuch Ultra2 Meter] Kit See Rx Instructions .Route Qty: 1 0RF Rx Instructions: As directed (DME) pen needle, diabetic [TechLITE Pen Needle] 31 gauge x 5/16 needle See Rx Instructions .ROUTE .MEDSUPPLY Qty: 200 5RF Rx Instructions: use 4 times day isosorbide mononitrate 60 mg tablet extended release 24 hr 60 mg PO DAILY Qty: 90 0RF Rx Instructions: 04/13/23 YOU NEED TO MAKE AN APPOINTMENT TO BE SEEN PRIOR TO ANY MORE REFILLS ondansetron 8 mg tablet,disintegrating 8 mg PO Q8H PRN (Reason: nausea and vomiting) Qty: 7 0RF cholecalciferol (vitamin D3) [Vitamin D3] 125 mcg (5,000 unit) Tablet 125 mcg PO DAILY acetaminophen 325 mg tablet 325 - 650 mg PO Q6H PRN (Reason: Pain) Vitamin B-12 50 mcg Tablet 50 mcg PO DAILY Qty: 0 metoprolol tartrate 50 mg tablet 25 mg PO BID fluoxetine 40 mg capsule 40 mg PO BEDTIME fluoxetine 20 mg capsule 20 mg PO DAILY magnesium oxide 400 mg magnesium tablet 400 mg PO DAILY PRN (Reason: Muscle Spasm) pantoprazole 40 mg tablet,delayed release (DR/EC) 40 mg PO BID oxycodone 5 mg tablet 2.5 - 5 mg PO Q8H PRN (Reason: Pain) rosuvastatin 10 mg tablet 10 mg PO QPM doxycycline hyclate 100 mg capsule 100 mg PO BID Qty: 6 0RF bumetanide 2 mg tablet 2 mg PO BID Qty: 90 0RF amoxicillin-pot clavulanate 500-125 mg tablet 1 tab PO BID Qty: 10 0RF albuterol sulfate [ProAir HFA] 90 mcg/actuation HFA aerosol inhaler 2 puff INHALATION Q4H PRN (Reason: shortness of breath or wheezing) Qty: 8.5 3RF Discontinued hydralazine 50 mg tablet 50 mg PO TID Qty: 90 1RF Rx Instructions: MUST have follow-up for further refills Entresto 24-26 mg tablet 1 tab PO DAILY Other Ambulatory Orders: Complete Blood Count w/Auto (Routine) Timeframe: 3 Days Location: Determined by Patient Ordered By: Yoselin Arthur DME: NIGEL (Order) Location: None Selected Ordered By: Yoselin Arthur Referrals: [facility] [Outside] Lorenzo Muller, [employer] [Primary Care Provider] - (Please call Lorenzo Muller's Office on Tuesday at [phone] to schedule a follow up appointment. Thank you.) Patient Instructions: Metoprolol (By mouth) (Lopressor, Toprol XL), Lisinopril (By mouth) (Prinivil, Zestril), Potassium Chloride (By mouth) (K-Dur, K-Angi, K-Tab, Leonard Mur), Nystatin/Triamcinolone (On the skin), Hydralazine (By mouth) (Apresoline), Amlodipine (By mouth) (Hypertenipine-2.5, Norvasc, Norliqva), Heart Failure (DC), CHF Stoplight, Opioid Safety Discharge Attestations Time Spent in Discharge Care*: greater than 30 min Status at Discharge: Cognitive status at discharge: cognitively intact, Behavioral status at discharge: cooperative, Quality Metrics Clinical Quality Measures [ No reported AMI, CVA or VTE this stay] Coding Level of Care Code Acute Code for Chg Fwd Diagnoses Gastric ulcer K25.9 Hospital-acquired pneumonia J18.9; Y95 Acute exacerbation of CHF (congestive heart failure) I50.9 Acute on chronic renal failure N17.9; N18.9 Situational anxiety F41.8 Benign hypertension I10 Chronic diastolic heart failure I50.32 Dietary noncompliance Z91.11 Monoclonal gammopathy D47.2 Anemia D64.9 Edema R60.9
[2023-09-19 11:47] LABS: Glucose Point of Care 266 mg/dL (70-110)
--- NOTE | 2023-09-19 11:55 | PC.SOCIAL ---
IMM Update pg 2 of IMM updated and reviewed w/ patient. Copy provided and Copy in chart dated, timed and initialed.
--- NOTE | 2023-09-19 14:33 | PC.NURSE ---
Report called to [facility] and given to Bhavani Murdock LPN
[2023-09-19 15:45] LABS: Adenovirus Not Detected (NOT DETECT); Chlamydia Pneumoniae Not Detected (NOT DETECT); Coronavirus 229E,HKU1,NL63,OC4 Not Detected (NOT DETECT); Human Metapneumovirus Not Detected (NOT DETECT); Human Rhinovirus/Enterovirus Not Detected (NOT DETECT); Influenza A Not Detected (NOT DETECT); Influenza A H1 Not Detected (NOT DETECT); Influenza A H1-2009 Not Detected (NOT DETECT); Influenza A H3 Not Detected (NOT DETECT); Influenza B Not Detected (NOT DETECT); Mycoplasma Pneumoniae Not Detected (NOT DETECT); Parainfluenza Virus Type 1 Not Detected (NOT DETECT); Parainfluenza Virus Type 2 Not Detected (NOT DETECT); Parainfluenza Virus Type 3 Not Detected (NOT DETECT); Parainfluenza Virus Type 4 Not Detected (NOT DETECT); Respiratory Syncytial Virus A Not Detected (NOT DETECT); Respiratory Syncytial Virus B Not Detected (NOT DETECT); SARS-COV-2 Not Detected (NOT DETECT)
== END 2023-09-19 15:26 | disposition skilled nursing facility (03) | DRG 291 ==
LOC: ER 13:35 → CSU 19:58
PROVIDERS: Family Medicine; Admitting Provider Internal Medicine; Emergency Provider Family Medicine; PCP Nurse Practitioner; Visit Provider Internal Medicine
DX: I13.0 Hypertensive heart and chronic kidney disease with heart failure and stage 1 through stage 4 chronic kidney disease, or unspecified chronic kidney disease (principal); I50.33 Acute on chronic diastolic (congestive) heart failure; J18.9 Pneumonia, unspecified organism; J44.1 Chronic obstructive pulmonary disease with (acute) exacerbation; N18.4 Chronic kidney disease, stage 4 (severe); D62 Acute posthemorrhagic anemia; E11.22 Type 2 diabetes mellitus with diabetic chronic kidney disease; I48.0 Paroxysmal atrial fibrillation; D47.2 Monoclonal gammopathy; Z79.01 Long term (current) use of anticoagulants; Z87.891 Personal history of nicotine dependence; Y95 Nosocomial condition; E66.01 Morbid (severe) obesity due to excess calories; E11.42 Type 2 diabetes mellitus with diabetic polyneuropathy; K25.9 Gastric ulcer, unspecified as acute or chronic, without hemorrhage or perforation; F41.8 Other specified anxiety disorders; E11.8 Type 2 diabetes mellitus with unspecified complications
CPT/HCPCS: 36415; 36416; 36430; 36600; 51702; 71045; 80048; 80051; 80053; 80202; 81001; 81015; 82274; 82330; 82607; 82805; 82962; 83036; 83735; 83880; 84100; 84145; 84443; 85014; 85018; 85025; 86140; 86850; 86900; 86920; 87040; 87426; 87635; 87641; 87801; 87804; 92526; 92610; 93005; 94640; 94660; 96372; 96376; 97110; 97161; 97530; 97760; J0360; J0692; J1644; J1815; J1940; J2405; J3370; J3372; J3490; L3908; P9016

== ENCOUNTER 2023-10-04 19:17 | Emergency (ER) | payer MEDICARE, MEDICAID, SELFPAY ==
[2023-10-04] VITALS (9 sets, daily range): BP systolic 120–145; BP diastolic 46–72; PULSE 63–73; RESP 16–18; TEMP 36.6; O2SAT 91–98
--- NOTE | 2023-10-04 19:18 | XRR_ITS ---
PROCEDURE INFORMATION: Exam: XR Chest Exam date and time: 10/04/2023 7:58 PM Age: 68 years old Clinical indication: Pain; Chest pressure; Additional info: Cp TECHNIQUE: Imaging protocol: Radiologic exam of the chest. Views: 1 view. COMPARISON: CR (CHEST, ) 09/11/2023 2:51 PM FINDINGS: Lungs: Vascular engorgement with interstitial and alveolar edema with pleural effusions. These changes have improved slightly. Pleural spaces: See Lungs finding. Heart/Mediastinum: See Vasculature finding. Vasculature: Moderate cardiomegaly and uncoiling of the thoracic aorta. Bones/joints: Unremarkable. XR/XR chest 1V portable [id number] IMPRESSION: CHF.
--- NOTE | 2023-10-04 19:37 | ECG_ITS ---
[facility] Test Date: 2023-10-04 Pat Name: Jennifer Novak Department: Room: Gender: Female [place]: : 1955 Requested By: Loly Dasilva Order Number: [id number] Reading MD: Sammy Aquino M.D. Measurements Intervals [place] Rate: 66 P: 91 NM: 248 QRS: -61 QRSD: 165 T: 66 QT: 490 QTc: 515 Interpretive Statements SINUS RHYTHM WITH FIRST DEGREE AV BLOCK LEFT AXIS DEVIATION [QRS AXIS < -30] RIGHT BUNDLE BRANCH BLOCK [120+ ms QRS DURATION, UPRIGHT V1, 40+ ms S IN I/aVL/V4/V5/V6] Compared to ECG 09/15/2023 07:32:11 First degree AV block now present Myocardial infarct finding no longer present Electronically Signed On 10-04-2023 23:21:11 GRAB JACK MAN by Sammy Aquino M.D. [email or web address]
[2023-10-04 20:02] LABS: Basophils # 0.1 10^3/uL (0.0-0.1); Basophils % 0.9 %; Eosinophils # 0.3 10^3/uL (0.0-0.8); Eosinophils % 4.8 %; Hematocrit 24.7 % (36-47); Lymphocytes # 0.9 10^3/uL (0.8-4.8); Lymphocytes % 12.8 %; Mean Corpuscular HGB Conc 31.2 g/dL (30-55); Mean Corpuscular Hemoglobin 28.3 pg (27-33); Mean Corpuscular Volume 90.8 fl (85-98); Mean Platelet Volume 11.8 fL (7.4-10.4); Monocytes # 0.6 10^3/uL (0.2-0.9); Neutrophils # 5.06 10^3/uL (1.8-7.7); Neutrophils % 73.2 %; Nucleated Red Blood Cells % 0 %; Platelet Count 154 10^3/cmm (157-399); Red Blood Count 2.72 10^6/uL (3.85-5.65); Red Cell Distribution Width 14.5 % (12.1-15.1)
[2023-10-04 20:20] LABS: Troponin(5th) Baseline 97 ng/L (0-10)
[2023-10-04 20:35] LABS: Alanine Aminotransferase 12 U/L (0-33); Albumin Level 3.9 g/dL (3.5-5.2); Alkaline Phosphatase 81 U/L (35-105); Anion Gap 16.4 (5-19); Aspartate Amino Transferase 13 U/L (0-32); Blood Urea Nitrogen 63 mg/dL (8-23); Calcium 9.4 mg/dL (8.5-10.5); Carbon Dioxide 28 mmol/L (22-29); Chloride 103 mmol/L (98-107); Globulin 2.2 g/dL (1.3-4.6); Glomerular Filtration Rate 14.5 mL/min (90-130); Glucose 128 mg/dL (65-115); NT Pro B Type Natriuretic Pept 6536 pg/mL (0-125); Osmolality Calculated 316 mOsm/kg (285-295); Potassium 4.4 mmol/L (3.5-5.1); Sodium 143 mmol/L (136-145); Total Bilirubin 0.2 mg/dL (0.15-1.2); Total Protein 6.1 g/dL (6.6-8.7)
--- NOTE | 2023-10-04 20:38 | ED_ITS ---
HPI - Chest Pain General: Chief Complaint: Chest Pain Stated Complaint: CP Time Seen by Provider: 10/04/23 19:32 Source: patient and EMS Limitations: no limitations History of Present Illness: 68-year-old female who has been [facility] today it was her day to be discharged from the penitentiary family is coming to get her she states she had stood and walked started having some chest pain. States the pain is improved she also had had some shortness of breath has chronic CHF denies any worsening proving factors. Associated symptoms: Reports dyspnea; Deny abdominal pain, fever(s), nausea or vomiting Review of Systems Const: Denies: fever(s), chills, body aches or change in appetite Eyes: Denies: blurry vision or eye discomfort ENMT: Denies: throat pain or dental pain Card: Reports: chest pain Resp: Reports: dyspnea GI: Denies: abdominal pain, nausea, vomiting or diarrhea : Denies: dysuria Musc: Denies: neck pain or back pain Skin/Breast: Denies: rash Neuro: Denies: headache(s) PFSH ED PFSH: Medical History Acute exacerbation of CHF (congestive heart failure) Acute on chronic renal failure Anemia Anxiety Atrial flutter Atypical chest pain Back pain Benign hypertension Benign hypertension Chest pain Chronic back pain Chronic diastolic heart failure Chronic major depressive disorder Chronic obstructive pulmonary disease, unspecified CKD (chronic kidney disease) CKD (chronic kidney disease) stage 3, GFR 30-59 ml/min Coronary artery fistula Diabetic foot Diabetic gastroparesis Diabetic neuropathy associated with type 2 diabetes mellitus Dietary noncompliance Diverticulosis Edema Edema, peripheral Environmental and seasonal allergies Essential tremor Fibromyalgia Fracture of distal end of fibula Frequent falls Gastric ulcer H. pylori ruled out at [facility] High risk medication use Hip pain, left Hospital-acquired pneumonia Hypoxia IBS (irritable bowel syndrome) IgM monoclonal gammopathy of uncertain significance Inflammatory arthritis Intermittent atrial fibrillation Left lumbar radiculopathy Lymph edema Major depression Mild cognitive impairment with memory loss Mobility impaired Monoclonal gammopathy Muscle spasm Near syncope Noncompliance with diabetes treatment Not consistent with diet Obesity Peripheral neuropathy Pneumonitis Polyarthralgia Positive GIFTY (antinuclear antibody) Seronegative rheumatoid arthritis of both hands Severe obstructive sleep apnea Situational anxiety Syncope and collapse Type 2 diabetes mellitus with diabetic chronic kidney disease Urinary disorder Vitamin D deficiency Surgical History History of section 4 times History of cholecystectomy (1993) History of hysterectomy (1997) with BSO History of left heart catheterization (2017) No significant obstructive coronary disease History of tonsillectomy Hx of colonoscopy Hx of esophagogastroduodenoscopy Family History Brother Bleeding disorder CAD (coronary artery disease) Father CAD (coronary artery disease) Chronic kidney disease (CKD) Mother CAD (coronary artery disease) Cancer Diabetes Family/Other Cancer Other CHF (congestive heart failure) Heart disease Hypertension Denies family history of Clotting disorder Dementia Suicide Anesthesia complication Lung disease Stroke Social History Smoking and tobacco/nicotine status: former use of tobacco/nicotine Quit status (tobacco/nicotine): has quit using Year quit tobacco: 1990 Former quit date comment: smoked 20+ years Second hand smoke exposure: No Alcohol intake: never Substance/Drug Use: never Adopted: No Caregiver/support person: Yes Lives independently: No Household members: children and other Details: Son, sometimes grandson Housing: House Marital status: Single service: No Current occupational status: disabled Do you think of yourself as: Straight/Heterosexual Current gender identity: Female Physical Exam Const: COMMON NORMALS: patient oriented x3 HENMT: COMMON NORMALS: normocephalic and atraumatic HEAD & SCALP: normocephalic and atraumatic Eye: COMMON NORMALS: Equal, round and reactive pupils present and EOMs intact bilaterally PUPIL: Yes Equal, round and reactive pupils present Neck/C-Spine: COMMON NORMALS: full ROM and supple Chest: COMMONS NORMALS: normal inspection of the chest and normal palpation of entire chest wall Resp: COMMON NORMALS: normal respiratory effort, No retractions, No use of accessory muscles and clear to auscultation bilaterally AUSCULTATION: clear to auscultation bilaterally Cardio: COMMON NORMALS: regular rate, regular rhythm and No murmurs present (Cardio) RATE: regular rate RHYTHM: regular rhythm GI: COMMON NORMALS: Normal to inspection, nondistended, normoactive bowel sounds present, Soft to palpation, non-tender and no masses PALPATION: Yes Soft to palpation Extremity: COMMON NORMALS: normal to inspection and full ROM Neuro: COMMON NORMALS: patient oriented x3, moves all extremities and no focal motor deficits Psych: COMMON NORMALS: mental status grossly normal, Normal thought process present and cooperative THOUGHT PROCESS: Normal thought process present Skin: COMMON NORMALS: no rashes or lesions noted and no wounds GENERAL SKIN EXAM: no rashes or lesions noted Course Vital Signs: Vital signs: Vital Signs Temperature 97.9 F 10/04/23 23:21 Pulse Rate 73 10/04/23 23:21 Respiratory Rate 16 10/04/23 23:21 Blood Pressure 128/66 10/04/23 23:21 Pulse Oximetry 98 10/04/23 23:21 Oxygen Delivery Me thod Nasal Cannula 10/04/23 22:24 Oxygen Flow Rate 2 10/04/23 22:24 MDM - Chest Pain Medical Decision Making Patient presents here with chest pain after being [facility] from the [facility]iary she been well-appearing here she is in no distress troponins here show no delta change no signs of acute coronary syndrome. Does have chronic kidney di sease creatinine has trended up slightly likely from her diuresis her potassium and anion gap are normal no signs of acute renal failure she is to drink fluids at home I did inform her and family she needs to have her kidney function rechecked in a week if she has any decreased urine output or increasing shortness of breath she is to return they understand agree to plan. Lab Data 10/04/23 19:57 10/04/23 19:57 Radiology Impressions Chest X-Ray 10/04/23 19:18 IMPRESSION: CHF. Laboratory Results WBC 6.90 10^3/uL (3.29-11.43) 10/04/23 19:57 RBC 2.72 10^6/uL (3.85-5.65) L 10/04/23 19:57 Hgb 7.70 g/dL (11.27-16.99) L 10/04/23 19:57 Hct 24.7 % (36-47) L 10/04/23 19:57 MCV 90.8 fl (85-98) 10/04/23 19:57 MCH 28.3 pg (27-33) 10/04/23 19:57 MCHC 31.2 g/dL (30-55) 10/04/23 19:57 RDW 14.5 % (12.1-15.1) 10/04/23 19:57 Plt Count 154 10^3/cmm (157-399) L 10/04/23 19:57 MPV 11.8 fL (7.4-10.4) H 10/04/23 19:57 Neut % (Auto) 73.2 % 10/04/23 19:57 Lymph % (Auto) 12.8 % 10/04/23 19:57 [place] % (Auto) 8.0 % 10/04/23 19:57 Eos % (Auto) 4.8 % 10/04/23 19:57 Baso % (Auto) 0.9 % 10/04/23 19:57 Neut # (Auto) 5.06 10^3/uL (1.8-7.7) 10/04/23 19:57 Lymph # (Auto) 0.9 10^3/uL (0.8-4.8) 10/04/23 19:57 [place] # (Auto) 0.6 10^3/uL (0.2-0.9) 10/04/23 19:57 Eos # (Auto) 0.3 10^3/uL (0.0-0.8) 10/04/23 19:57 Baso # (Auto) 0.1 10^3/uL (0.0-0.1) 10/04/23 19:57 Nucleated RBC % (auto) 0 % 10/04/23 19:57 Nucleated RBCs # 0.0 /100WBC 10/04/23 19:57 Sodium 143 mmol/L (136-145) 10/04/23 19:57 Potassium 4.4 mmol/L (3.5-5.1) 10/04/23 19:57 Chloride 103 mmol/L (98-107) 10/04/23 19:57 Carbon Dioxide 28 mmol/L (22-29) 10/04/23 19:57 Anion Gap 16.4 (5-19) 10/04/23 19:57 BUN 63 mg/dL (8-23) H 10/04/23 19:57 Creatinine 3.2 mg/dL (0.5-0.9) H 10/04/23 19:57 GFR Calculation 14.5 mL/min (90-130) L 10/04/23 19:57 Glucose 128 mg/dL (65-115) H 10/04/23 19:57 Calculated Osmolality 316 mOsm/kg (285-295) H 10/04/23 19:57 Calcium 9.4 mg/dL (8.5-10.5) 10/04/23 19:57 Total Bilirubin 0.2 mg/dL (0.15-1.2) 10/04/23 19:57 AST 13 U/L (0-32) 10/04/23 19:57 ALT 12 U/L (0-33) 10/04/23 19:57 Alkaline Phosphatase 81 U/L (35-105) 10/04/23 19:57 Troponin T Baseline 97 ng/L (0-10) H 10/04/23 19:57 Troponin T 120 Minute 91.95 ng/L (0-10) H 10/04/23 21:50 Delta Troponin T -5.05 ABS# (0-10) L 10/04/23 21:50 NT-Pro-B Natriuret Pep 6536 pg/mL (0-125) H 10/04/23 19:57 Total Protein 6.1 g/dL (6.6-8.7) L 10/04/23 19:57 Albumin 3.9 g/dL (3.5-5.2) 10/04/23 19:57 Globulin 2.2 g/dL (1.3-4.6) 10/04/23 19:57 All radiology interpretation(s) finalized by discharge Discharge Plan Discharge Patient Disposition: Home Clinical Impression: Chest pain, CKD (chronic kidney disease) Condition: Stable Prescriptions: No Action (DME) wheelchair cushions See Rx Instructions .Route .MEDSUPPLY Qty: 1 0RF Rx Instructions: As directed (DME) Alternating pressure mattress and pressure pump See Rx Instructions .Route .MEDSUPPLY Qty: 1 0RF Rx Instructions: As directed hydroxychloroquine 200 mg tablet 200 mg PO BID Qty: 180 1RF dicyclomine 20 mg tablet 20 mg PO QID Qty: 120 2RF hydroxyzine pamoate 50 mg capsule 50 mg PO TID Qty: 90 2RF insulin degludec [Tresiba FlexTouch U-200] 200 unit/mL (3 mL) insulin pen 80 unit SUBCUT DAILY Qty: 18 2RF insulin lispro [Humalog KwikPen Insulin] 100 unit/mL insulin pen See Rx Instructions SUBCUT .COMPLEX Qty: 15 0RF Rx Instructions: 6-27U SUBCUT three times daily subcutaneously; per sliding scale triamcinolone acetonide 0.1 % ointment 1 applic TOPICAL DAILY PRN (Reason: itching) Qty: 30 0RF Rx Instructions: skin arms, legs torso (DME) lancing device with lancets [DoctorBase Delica Plus Lanc Dev] Kit See Rx Instructions .Route Qty: 1 0RF Rx Instructions: As directed (DME) lancets [Takwin LabsTouch Delica Lancets] 33 gauge misc See Rx Instructions .Route Qty: 100 5RF Rx Instructions: three times day (DME) diabetic shoes with inserts See Rx Instructions .Route .MEDSUPPLY Qty: 1 0RF Rx Instructions: As directed (DME) Motorized lift chair See Rx Instructions .Route .MEDSUPPLY Qty: 1 0RF Rx Instructions: As directed ([facility] [place]) DoctorBase Ultra Test Strip See Rx Instructions .Route Qty: 100 5RF Rx Instructions: 1 strip three time day clindamycin phosphate 1 % lotion See Rx Instructions .ROUTE .COMPLEX Qty: 60 1RF Dose Instruction: APPLY TOPICALLY TWICE DAILY NEEDED FOR SKIN IRRITATION Rx Instructions: APPLY TOPICALLY TWICE DAILY NEEDED FOR SKIN IRRITATION potassium chloride 20 mEq tablet extended release 30 meq PO DAILY Qty: 135 3RF nitroglycerin [Nitrostat] 0.4 mg tablet, sublingual 0.4 mg SUBLINGUAL Q5M PRN (Reason: Chest Pain) Qty: 50 3RF Rx Instructions: do not exceed 3 doses per episode (DME) blood-glucose meter [Takwin LabsTouch Ultra2 Meter] Kit See Rx Instructions .Route Qty: 1 0RF Rx Instructions: As directed (DME) pen needle, diabetic [TechLITE Pen Needle] 31 gauge x 5/16 needle See Rx Instructions .ROUTE .MEDSUPPLY Qty: 200 5RF Rx Instructions: use 4 times day isosorbide mononitrate 60 mg tablet extended release 24 hr 60 mg PO DAILY Qty: 90 0RF Rx Instructions: 04/13/23 YOU NEED TO MAKE AN APPOINTMENT TO BE SEEN PRIOR TO ANY MORE REFILLS ondansetron 8 mg tablet,disintegrating 8 mg PO Q8H PRN (Reason: nausea and vomiting) Qty: 7 0RF cholecalciferol (vitamin D3) [Vitamin D3] 125 mcg (5,000 unit) Tablet 125 mcg PO DAILY acetaminophen 325 mg tablet 325 - 650 mg PO Q6H PRN (Reason: Pain) Vitamin B-12 50 mcg Tablet 50 mcg PO DAILY Qty: 0 metoprolol tartrate 50 mg tablet 25 mg PO BID fluoxetine 40 mg capsule 40 mg PO BEDTIME fluoxetine 20 mg capsule 20 mg PO DAILY magnesium oxide 400 mg magnesium tablet 400 mg PO DAILY PRN (Reason: Muscle Spasm) pantoprazole 40 mg tablet,delayed release (DR/EC) 40 mg PO BID oxycodone 5 mg tablet 2.5 - 5 mg PO Q8H PRN (Reason: Pain) rosuvastatin 10 mg tablet 10 mg PO QPM Nystop 100,000 unit/gram Powder 1 applic topical BID Qty: 15 1RF metoprolol tartrate 25 mg tablet 25 mg PO BID Qty: 60 0RF amlodipine 10 mg tablet 10 mg PO DAILY Qty: 60 3RF hydralazine 25 mg Tablet 50 mg PO TID Qty: 90 2RF doxycycline hyclate 100 mg capsule 100 mg PO BID Qty: 6 0RF bumetanide 2 mg tablet 2 mg PO BID Qty: 90 0RF ProAir HFA 90 mcg/actuation HFA aerosol inhaler 2 puff INHALATION Q4H PRN (Reason: shortness of breath or wheezing) Qty: 8.5 3RF amoxicillin-pot clavulanate 500-125 mg tablet 1 tab PO BID Qty: 10 0RF potassium chloride 10 mEq tablet extended release 10 meq PO BID Qty: 60 0RF Rx Instructions: only with bumex amoxicillin-pot clavulanate 875-125 mg tablet 1 tab PO BID Qty: 10 0RF Discharge Orders: Discharge ED (Routine); Ordered 10/04/23 Ordered By: Loly Dasilva Referrals: Lorenzo Muller, PARLIAMENTARY COUNSEL-C [Primary Care Provider] - 1-3 days Discharge Diet: Advance as tolerated Discharge Activity: Resume usual activity Patient Instructions: Chest Pain (ED) Coding Level of Care Code ED 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
--- NOTE | 2023-10-04 21:18 | ECG_ITS ---
[facility] Test Date: 2023-10-04 Pat Name: Jennifer Novak Department: Room: Gender: Female Staff Developer: : [id number] Requested By: Loly Dasilva Order Number: [id number] Cierra MD: Sammy Aquino M.D. Measurements Intervals [place] Rate: 68 P: 267 KS: 153 QRS: -41 QRSD: 126 T: 0 QT: 231 QTc: 247 Interpretive Statements Regular supraventricular rhythm LEFT AXIS DEVIATION [QRS AXIS < -30] MODERATE INTRAVENTRICULAR CONDUCTION DELAY [110+ ms QRS DURATION] MARKED ST ELEVATION, CONSIDER SEPTAL INJURY [MARKED ST ELEVATION W/O NORMALLY INFLECTED T-WAVE IN V1/V2] Because of baseline artifact, further interpretation is not possible Electronically Signed On 10-04-2023 23:31:41 BRAZER FURNACE by Sammy Aquino M.D. [email or web address]
[2023-10-04 22:23] LABS: Troponin 5 2HR 91.95 ng/L (0-10); Troponin 5 2HR Delta -5.05 ABS# (0-10)
== END 2023-10-04 23:22 | disposition home or self-care (01) ==
PROVIDERS: Emergency Provider Emergency Medicine; PCP Nurse Practitioner
DX: R07.9 Chest pain, unspecified (principal); J44.9 Chronic obstructive pulmonary disease, unspecified; E11.22 Type 2 diabetes mellitus with diabetic chronic kidney disease; I13.0 Hypertensive heart and chronic kidney disease with heart failure and stage 1 through stage 4 chronic kidney disease, or unspecified chronic kidney disease; N18.30 Chronic kidney disease, stage 3 unspecified; I50.9 Heart failure, unspecified; E11.42 Type 2 diabetes mellitus with diabetic polyneuropathy
CPT/HCPCS: 36415; 71045; 80053; 83880; 84484; 85025; 93005; 99285

== ENCOUNTER → 2023-10-10 11:05 | Outpatient (BNVA) | payer MEDICARE, MEDICAID, SELFPAY | PROVIDERS: PCP Nurse Practitioner; Visit Provider Internal Medicine Nephrology | DX: N18.9 Chronic kidney disease, unspecified (principal) | CPT/HCPCS: 80069; 85025 ==

== ENCOUNTER 2023-11-11 11:45 | Outpatient (CLI) | payer OTHER, MEDICAID, SELFPAY ==
[2023-11-11 12:49] LABS: Basophils # 0.1 10^3/uL (0.0-0.1); Basophils % 0.8 %; Eosinophils # 0.2 10^3/uL (0.0-0.8); Eosinophils % 2.7 %; Hematocrit 28.1 % (36-47); Lymphocytes # 0.7 10^3/uL (0.8-4.8); Lymphocytes % 9.7 %; Mean Corpuscular HGB Conc 30.6 g/dL (30-55); Mean Corpuscular Hemoglobin 28.5 pg (27-33); Mean Platelet Volume 10.8 fL (7.4-10.4); Monocytes # 0.5 10^3/uL (0.2-0.9); Monocytes % 6.5 %; Neutrophils # 5.66 10^3/uL (1.8-7.7); Neutrophils % 79.9 %; Nucleated Red Blood Cells % 0 %; Platelet Count 225 10^3/cmm (157-399); Red Blood Count 3.02 10^6/uL (3.85-5.65); Red Cell Distribution Width 15.6 % (12.1-15.1); White Blood Count 7.09 10^3/uL (3.29-11.43)
[2023-11-11 13:10] LABS: Albumin Level 4.1 g/dL (3.5-5.2); Anion Gap 15.3 (5-19); Blood Urea Nitrogen 47 mg/dL (8-23); Calcium 10.2 mg/dL (8.5-10.5); Carbon Dioxide 32 mmol/L (22-29); Chloride 102 mmol/L (98-107); Glomerular Filtration Rate 34.7 mL/min (90-130); Glucose 90 mg/dL (65-115); Phosphorus 4.3 mg/dL (2.5-4.5); Potassium 4.3 mmol/L (3.5-5.1); Sodium 145 mmol/L (136-145)
[2023-11-11 13:21] LABS: Creatinine Urine, Random 27 mg/dL (28-217)
[2023-11-11 13:40] LABS: Microalbum Creatinine Ratio Ur 1704 mg/dL (0-20); Microalbumin Random Urine 46 ug/dL (0-20)
== END 2023-11-11 11:46 | disposition home or self-care (01) ==
LOC: LAB 11:58
PROVIDERS: PCP Nurse Practitioner; Visit Provider Internal Medicine Nephrology
DX: N18.4 Chronic kidney disease, stage 4 (severe) (principal); R80.9 Proteinuria, unspecified; Z79.899 Other long term (current) drug therapy
CPT/HCPCS: 36415; 80069; 82044; 85025

== ENCOUNTER 2023-11-29 14:14 | Emergency (ER) | payer MEDICARE, MEDICAID, SELFPAY ==
[2023-11-29 14:49] VITALS: BP 193/79; PULSE 72; RESP 16; TEMP 36.7; O2SAT 100; BMI 61.9
--- NOTE | 2023-11-29 15:38 | XRR_ITS ---
PROCEDURE INFORMATION: Exam: XR Chest Exam date and time: 11/29/2023 3:45 PM Age: 68 years old Clinical indication: Shortness of breath; Additional info: Fluid overloaded TECHNIQUE: Imaging protocol: Radiologic exam of the chest. Views: 1 view. COMPARISON: CR (CHEST, ) 10/04/2023 7:58 PM FINDINGS: Lungs: Mild pulmonary vascular engorgement or congestion. No focal infiltrate or consolidation. Pleural spaces: No significant pleural effusion with possible trace effusion on the right. No pneumothorax. Heart/Mediastinum: Mild cardiomegaly. Bones/joints: Visualized osseous structures show no acute abnormality. XR/XR chest 1V portable [id number] IMPRESSION: Mild cardiomegaly and mild pulmonary vascular engorgement/congestion suggestive of mild CHF appearance, not as prominent as prior exam.
--- NOTE | 2023-11-29 15:39 | ED_ITS ---
Documented by User: CHARI Orozco 11/29/23 16:56 HPI - General Adult 2 General: Chief complaint: Shortness of Breath/Dyspnea Stated complaint: LE pain Time Seen by Provider: 11/29/23 15:01 Source: patient Mode of arrival: wheelchair Limitations: no limitations History of Present Illness: Patient is a 68-year-old female with a history of chronic kidney disease stage IV, monoclonal gammopathy, chronic anemia, diastolic CHF, factor V Leyden mutation, morbid obesity, chronic hypoxia dependent on oxygen here for complaints of bilateral leg edema/pain. Patient feels like she is swelling with fluid. She has not had to increase her baseline oxygen. She takes Bumex BID and has been compliant with this medication. She states that one time she was in the hospital for 2 months and they took 60 pounds of fluid off of her she feels like she has slowly gained it back. Feels like her legs are weeping. Onset (ago): day(s) Severity: severe Pain Consistency: constant Relieving factors: none Exacerbating factors: none Associated symptoms: Reports dyspnea (chronically on O2; has not had to increase); Deny chest pain, headache(s), malaise, nausea, rash, palpitations, syncope or vomiting Treatments prior to arrival: none Review of Systems 2 Const: Reports: change in appetite and other (weight gain); Denies: fever(s), chills, body aches, fatigue or malaise Eyes: Denies: change in vision or blurry vision Card: Denies: chest pain, palpitations, irregular heart rhythm, lightheadedness, syncope or dyspnea on exertion Resp: Reports: dyspnea (chronically on O2; has not had to increase); Denies: productive cough or pain on inspiration GI: Denies: abdominal pain, nausea, vomiting, heartburn or diarrhea : Denies: dysuria Musc: Reports: extremity pain and extremity swelling; Denies: neck pain, back pain or joint pain Skin/Breast: Denies: rash Neuro: Denies: headache(s), numbness in extremities, weakness in extremities, sensory changes or dizziness PFS ED 2 PFSH: Medical History (Updated 11/29/23 @ 18:19 by BRIAN Victor) Gastric ulcer H. pylori ruled out at [facility]-acquired pneumonia Acute exacerbation of CHF (congestive heart failure) Acute on chronic renal failure Diabetic gastroparesis Hypoxia Anemia Positive GIFTY (antinuclear antibody) Frequent falls Muscle spasm High risk medication use Seronegative rheumatoid arthritis of both hands Diabetic foot Hip pain, left Benign hypertension Atypical chest pain IgM monoclonal gammopathy of uncertain significance Chronic diastolic heart failure Intermittent atrial fibrillation Chest pain Edema CKD (chronic kidney disease) stage 3, GFR 30-59 ml/min Urinary disorder Anxiety Pneumonitis Left lumbar radiculopathy Back pain Lymph edema Fracture of distal end of fibula Syncope and collapse Essential tremor Mobility impaired IBS (irritable bowel syndrome) Inflammatory arthritis Chronic back pain Chronic major depressive disorder Peripheral neuropathy Polyarthralgia Edema, peripheral Noncompliance with diabetes treatment Not consistent with diet Near syncope Monoclonal gammopathy Major depression Diabetic neuropathy associated with type 2 diabetes mellitus Severe obstructive sleep apnea Mild cognitive impairment with memory loss Dietary noncompliance Atrial flutter Coronary artery fistula Chronic obstructive pulmonary disease, unspecified Obesity CKD (chronic kidney disease) Benign hypertension Fibromyalgia Diverticulosis Environmental and seasonal allergies Situational anxiety Vitamin D deficiency Type 2 diabetes mellitus with diabetic chronic kidney disease Surgical History History of left heart catheterization (2018) No significant obstructive coronary disease Hx of esophagogastroduodenoscopy Hx of colonoscopy History of tonsillectomy History of section 4 times History of cholecystectomy (1993) History of hysterectomy (1997) with BSO Family History Brother Bleeding disorder CAD (coronary artery disease) Father CAD (coronary artery disease) Chronic kidney disease (CKD) Mother CAD (coronary artery disease) Cancer Diabetes Family/Other Cancer Other CHF (congestive heart failure) Heart disease Hypertension Denies family history of Clotting disorder Dementia Suicide Anesthesia complication Lung disease Stroke Social History Smoking and tobacco/nicotine status: former use of tobacco/nicotine Quit status (tobacco/nicotine): has quit using Year quit tobacco: 1990 Former quit date comment: smoked 20+ years Second hand smoke exposure: No Alcohol intake: never Substance/Drug Use: never Adopted: No Caregiver/support person: Yes Lives independently: No Household members: children and other Details: Son, sometimes grandson Housing: House Marital status: Single service: No Current occupational status: disabled Do you think of yourself as: Straight/Heterosexual Current gender identity: Female Physical Exam 2 Const: COMMON NORMALS: no acute distress, patient oriented x3, no limitations and alert GENERAL APPEARANCE: cooperative NUTRITIONAL APPEARANCE: obese morbidly obese (super obese with a BMI of 62.0) ORIENTATION/CONSCIOUSNESS: Y es awake, Yes oriented to person, Yes oriented to place and Yes oriented to time HENMT: COMMON NORMALS: normocephalic and atraumatic HEAD & SCALP: normal to inspection, normocephalic and atraumatic Neck/C-Spine: COMMON NORMALS: full ROM, no lymphadenopathy, supple and no meningeal signs Chest: COMMONS NORMALS: normal inspection of the chest Resp: COMMON NORMALS: normal respiratory effort and clear to auscultation bilaterally AUSCULTATION: clear to auscultation bilaterally Cardio: COMMON NORMALS: regular rate and regular rhythm RATE: regular rate RHYTHM: regular rhythm GI: COMMON NORMALS: Soft to palpation, non-tender and no masses INSPECTION: Yes central obesity PALPATION: Yes Soft to palpation : COMMON NORMALS: Yes no CVA tenderness BLADDER/KIDNEY EXAM: Yes no CVA tenderness Back/Pelvis: COMMON NORMALS: no CVA tenderness and thoracic and lumbar spine normal to inspection Extremity: COMMON NORMALS: capillary refill normal NARRATIVE EXTREMITY EXAM: significant bilateral LE lymphedema with weeping; no erythema/warmth GENERAL: Yes normal exam except as noted Neuro: COMMON NORMALS: patient oriented x3, moves all extremities, no focal motor deficits and no sensory deficits noted SENSORIUM/ORIENTATION: Yes alert, Yes oriented to person, Yes oriented to place and Yes oriented to time MENINGEAL SIGNS: Yes no meningeal signs Skin: COMMON NORMALS: no rashes or lesions noted GENERAL SKIN EXAM: no rashes or lesions noted Course 2 Vital Signs: Vital signs: Vital Signs Temperature 98.0 F 11/29/23 14:49 Pulse Rate 75 11/29/23 17:46 Respiratory Rate 18 11/29/23 17:46 Blood Pressure 170/65 11/29/23 17:46 Pulse Oximetry 100 11/29/23 17:46 Oxygen Delivery Me thod Nasal Cannula 11/29/23 17:46 Oxygen Flow Rate 2 11/29/23 17:46 [facility] - General Adult Lab Data 11/29/23 16:38 11/29/23 16:42 Radiology Impressions Chest X-Ray 11/29/23 15:38 IMPRESSION: Mild cardiomegaly and mild pulmonary vascular engorgement/congestion suggestive of mild CHF appearance, not as prominent as prior exam. Laboratory Results WBC 6.36 10^3/uL (3.29-11.43) 11/29/23 16:38 RBC 2.93 10^6/uL (3.85-5.65) L 11/29/23 16:38 Hgb 8.30 g/dL (11.27-16.99) L 11/29/23 16:38 Hct 28.2 % (36-47) L 11/29/23 16:38 MCV 96.2 fl (85-98) 11/29/23 16:38 MCH 28.3 pg (27-33) 11/29/23 16:38 MCHC 29.4 g/dL (30-55) L 11/29/23 16:38 RDW 16.0 % (12.1-15.1) H 11/29/23 16:38 Plt Count 184 10^3/cmm (157-399) 11/29/23 16:38 MPV 11.3 fL (7.4-10.4) H 11/29/23 16:38 Neut % (Auto) 75.9 % 11/29/23 16:38 Lymph % (Auto) 12.1 % 11/29/23 16:38 [place] % (Auto) 7.9 % 11/29/23 16:38 Eos % (Auto) 2.8 % 11/29/23 16:38 Baso % (Auto) 0.8 % 11/29/23 16:38 Neut # (Auto) 4.83 10^3/uL (1.8-7.7) 11/29/23 16:38 Lymph # (Auto) 0.8 10^3/uL (0.8-4.8) 11/29/23 16:38 [place] # (Auto) 0.5 10^3/uL (0.2-0.9) 11/29/23 16:38 Eos # (Auto) 0.2 10^3/uL (0.0-0.8) 11/29/23 16:38 Baso # (Auto) 0.1 10^3/uL (0.0-0.1) 11/29/23 16:38 Nucleated RBC % (auto) 0 % 11/29/23 16:38 Nucleated RBCs # 0.0 /100WBC 11/29/23 16:38 Sodium 141 mmol/L (136-145) 11/29/23 16:42 Potassium 4.5 mmol/L (3.5-5.1) 11/29/23 16:42 Chloride 101 mmol/L (98-107) 11/29/23 16:42 Carbon Dioxide 28 mmol/L (22-29) 11/29/23 16:42 Anion Gap 16.5 (5-19) 11/29/23 16:42 BUN 46 mg/dL (8-23) H 11/29/23 16:42 Creatinine 1.9 mg/dL (0.5-0.9) H 11/29/23 16:42 GFR Calculation 26.4 mL/min (90-130) L 11/29/23 16:42 Glucose 92 mg/dL (65-115) 11/29/23 16:42 Calculated Osmolality 304 mOsm/kg (285-295) H 11/29/23 16:42 Calcium 9.6 mg/dL (8.5-10.5) 11/29/23 16:42 Total Bilirubin 0.4 mg/dL (0.15-1.2) 11/29/23 16:42 AST 22 U/L (0-32) 11/29/23 16:42 ALT 23 U/L (0-33) 11/29/23 16:42 Alkaline Phosphatase 102 U/L (35-105) 11/29/23 16:42 NT-Pro-B Natriuret Pep 6900 pg/mL (0-125) H 11/29/23 16:42 Total Protein 7.4 g/dL (6.6-8.7) 11/29/23 16:42 Albumin 3.9 g/dL (3.5-5.2) 11/29/23 16:42 Globulin 3.5 g/dL (1.3-4.6) 11/29/23 16:42 Discharge Plan Discharge Patient Disposition: Home Clinical Impression: Bilateral edema of lower extremity, CKD (chronic kidney disease) stage 4, GFR 15-29 ml/min Condition: Stable Prescriptions: No Action hydroxychloroquine 200 mg tablet 200 mg PO BID Qty: 180 1RF triamcinolone acetonide 0.1 % ointment 1 applic TOPICAL DAILY PRN (Reason: itching) Qty: 30 0RF Rx Instructions: skin arms, legs torso (DME) lancing device with lancets [Qwikiuch Delica Plus Lanc Dev] Kit See Rx Instructions .Route Qty: 1 0RF Rx Instructions: As directed (DME) lancets [AmorelieTouch Delica Lancets] 33 gauge misc See Rx Instructions .Route Qty: 100 5RF Rx Instructions: three times day (DME) diabetic shoes with inserts See Rx Instructions .Route .MEDSUPPLY Qty: 1 0RF Rx Instructions: As directed dicyclomine 20 mg tablet 20 mg PO QID PRN (Reason: stooling) ferrous sulfate 325 mg (65 mg iron) tablet,delayed release (DR/EC) 325 mg PO DAILY insulin degludec [Tresiba FlexTouch U-200] 200 unit/mL (3 mL) insulin pen 80 unit SUBCUT DAILY Qty: 18 2RF clindamycin phosphate 1 % lotion See Rx Instructions .ROUTE .COMPLEX Qty: 60 1RF Dose Instruction: APPLY TOPICALLY TWICE DAILY NEEDED FOR SKIN IRRITATION Rx Instructions: APPLY TOPICALLY TWICE DAILY NEEDED FOR SKIN IRRITATION (DME) blood-glucose meter [AmorelieTouch Ultra2 Meter] Kit See Rx Instructions .Route Qty: 1 0RF Rx Instructions: As directed isosorbide mononitrate 60 mg tablet extended release 24 hr 60 mg PO DAILY Qty: 90 0RF Rx Instructions: 04/13/23 YOU NEED TO MAKE AN APPOINTMENT TO BE SEEN PRIOR TO ANY MORE REFILLS Nystop 100,000 unit/gram powder 1 applic topical BID Qty: 15 2RF hydroxyzine pamoate 50 mg capsule 50 mg PO .at bedtime Qty: 90 2RF (DME) Bariatric emy lift See Rx Instructions .Route .MEDSUPPLY Qty: 1 0RF Rx Instructions: BMI 57.5% weight 325# potassium chloride 10 mEq tablet extended release 10 meq PO BID Qty: 60 0RF Rx Instructions: only with bumex (DME) OneTouch Ultra Test Strip See Rx Instructions .Route Qty: 100 5RF Rx Instructions: 1 strip three time day (DME) pen needle, diabetic [TechLITE Pen Needle] 31 gauge x / needle See Rx Instructions .ROUTE .MEDSUPPLY Qty: 200 5RF Rx Instructions: use 4 times day insulin lispro [Humalog KwikPen Insulin] 100 unit/mL insulin pen See Rx Instructions SUBCUT .COMPLEX Qty: 15 0RF Rx Instructions: 6-27U SUBCUT three times daily subcutaneously; per sliding scale nitroglycerin [Nitrostat] 0.4 mg tablet, sublingual 0.4 mg SUBLINGUAL Q5M PRN (Reason: Chest Pain) Qty: 50 3RF Rx Instructions: do not exceed 3 doses per episode cholecalciferol (vitamin D3) [Vitamin D3] 125 mcg (5,000 unit) Tablet 125 mcg PO DAILY acetaminophen 325 mg tablet 325 - 650 mg PO Q6H PRN (Reason: Pain) Vitamin B-12 50 mcg Tablet 50 mcg PO DAILY Qty: 0 fluoxetine 40 mg capsule 40 mg PO BEDTIME fluoxetine 20 mg capsule 20 mg PO DAILY magnesium oxide 400 mg magnesium tablet 400 mg PO DAILY PRN (Reason: Muscle Spasm) oxycodone 5 mg tablet 2.5 - 5 mg PO Q8H PRN (Reason: Pain) rosuvastatin 10 mg tablet 10 mg PO QPM metoprolol tartrate 25 mg tablet 25 mg PO BID Qty: 60 0RF amlodipine 10 mg tablet 10 mg PO DAILY Qty: 60 3RF hydralazine 25 mg Tablet 50 mg PO TID Qty: 90 2RF bumetanide 2 mg tablet 2 mg PO BID Qty: 90 0RF ProAir HFA 90 mcg/actuation HFA aerosol inhaler 2 puff INHALATION Q4H PRN (Reason: shortness of breath or wheezing) Qty: 8.5 3RF pantoprazole 40 mg tablet,delayed release (DR/EC) 40 mg PO DAILY Discharge Orders: Discharge ED (Routine); Ordered 11/29/23 Ordered By: Solo Gustafson Referrals: Lorenzo Muller, [facility] [Primary Care Provider] - Discharge Diet: Usual diet Discharge Activity: Increase activity as tolerated Patient Instructions: Leg Edema (ED) Activity Restrictions/Additional Instructions: Continue with your home Bumex to help keep the fluid moving Follow-up with your kidney doctor as soon as possible You may also need to follow-up with primary care for an ER follow-up visit Return to the emergency department if any rapid worsening symptoms, difficulty breathing, sustained shortness of breath, chest pain, and as needed. Coding Level of Care Code ED Public Relations Manager for Chg Fwd Documented by User: BRIAN Victor 11/29/23 18:21 HPI - General Adult 2 General: Chief complaint: Shortness of Breath/Dyspnea Stated complaint: LE pain Time Seen by Provider: 11/29/23 15:01 PFSH ED 2 PFS: Medical History (Updated 11/29/23 @ 18:19 by BRIAN Victor) Gastric ulcer H. pylori ruled out at [facility]-acquired pneumonia Acute exacerbation of CHF (congestive heart failure) Acute on chronic renal failure Diabetic gastroparesis Hypoxia Anemia Positive GIFTY (antinuclear antibody) Frequent falls Muscle spasm High risk medication use Seronegative rheumatoid arthritis of both hands Diabetic foot Hip pain, left Benign hypertension Atypical chest pain IgM monoclonal gammopathy of uncertain significance Chronic diastolic heart failure Intermittent atrial fibrillation Chest pain Edema CKD (chronic kidney disease) stage 3, GFR 30-59 ml/min Urinary disorder Anxiety Pneumonitis Left lumbar radiculopathy Back pain Lymph edema Fracture of distal end of fibula Syncope and collapse Essential tremor Mobility impaired IBS (irritable bowel syndrome) Inflammatory arthritis Chronic back pain Chronic major depressive disorder Peripheral neuropathy Polyarthralgia Edema, peripheral Noncompliance with diabetes treatment Not consistent with diet Near syncope Monoclonal gammopathy Major depression Diabetic neuropathy associated with type 2 diabetes mellitus Severe obstructive sleep apnea Mild cognitive impairment with memory loss Dietary noncompliance Atrial flutter Coronary artery fistula Chronic obstructive pulmonary disease, unspecified Obesity CKD (chronic kidney disease) Benign hypertension Fibromyalgia Diverticulosis Environmental and seasonal allergies Situational anxiety Vitamin D deficiency Type 2 diabetes mellitus with diabetic chronic kidney disease Surgical History History of left heart catheterization (2017) No significant obstructive coronary disease Hx of esophagogastroduodenoscopy Hx of colonoscopy History of tonsillectomy History of section 4 times History of cholecystectomy (1993) History of hysterectomy (1997) with BSO Family History Brother Bleeding disorder CAD (coronary artery disease) Father CAD (coronary artery disease) Chronic kidney disease (CKD) Mother CAD (coronary artery disease) Cancer Diabetes Family/Other Cancer Other CHF (congestive heart failure) Heart disease Hypertension Denies family history of Clotting disorder Dementia Suicide Anesthesia complication Lung disease Stroke Social History Smoking and tobacco/nicotine status: former use of tobacco/nicotine Quit status (tobacco/nicotine): has quit using Year quit tobacco: 1990 Former quit date comment: smoked 20+ years Second hand smoke exposure: No Alcohol intake: never Substance/Drug Use: never Adopted: No Caregiver/support person: Yes Lives independently: No Household members: children and other Details: Son, sometimes grandson Housing: House Marital status: Single service: No Current occupational status: disabled Do you think of yourself as: Straight/Heterosexual Current gender identity: Female Course 2 Reevaluation(s): Reevaluation #1: Labs and imaging back. Discussed findings with patient and friend at bedside. Patient reports that she does feel much better after being able to void. Discussed with patient that her labs are on par for her baseline, although her kidney labs are slightly elevated. Patient states that she did miss her recent appointment with her kidney doctor, but is planning to follow-up again. Patient does state that she is ready to go home and is feeling much better. Time: 18:00 Vital Signs: Vital signs: Vital Signs Temperature 98.0 F 11/29/23 14:49 Pulse Rate 75 11/29/23 17:46 Respiratory Rate 18 11/29/23 17:46 Blood Pressure 170/65 11/29/23 17:46 Pulse Oximetry 100 11/29/23 17:46 Oxygen Delivery Me thod Nasal Cannula 11/29/23 17:46 Oxygen Flow Rate 2 11/29/23 17:46 MDM - General Adult Medical Decision Making 1700: Received patient from CHARI Kate due to change of shift 68yo female with the following no medical problems: chronic kidney disease stage IV, monoclonal gammopathy, chronic anemia, diastolic CHF, factor V Leyden mutation, morbid obesity, chronic hypoxia dependent on oxygen She is here for complaints of bilateral leg edema/pain. Patient feels like she is swelling with fluid. She has not had to increase her baseline oxygen. She takes Bumex BID and has been compliant with this medication. She states that one time she was in the hospital for 2 months and they took 60 pounds of fluid off of her she feels like she has slowly gained it back. Feels like her legs are weeping. CBC does indicate a hemoglobin of 8.3, this is chronic per chart review. CMP with a BUN of 46 with a creatinine of 1.9 and GFR of 26.4. This is on trend with patient's normal as it does wax and wane. proBNP noted to be 6900. Chest x-ray does show a mild cardiomegaly with mild pulmonary vascular engorgement/congestion suggestive of a mild CHF appearance, but not as prominent as prior exam. Patient did receive 60 mg Lasix while in the emergency department and is on 2 mg Bumex home med. Patient does report that she is feeling much better after voiding. Patient is relieved that although her labs are not in the normal range, they are her norm. Patient does reports she is ready to go home. Encourage patient to continue to take her home Bumex. Recommend patient follow-up with her kidney doctor as soon as possible due to missing her most recent appointments. Advised to return to the emergency department if any rapid worsening symptoms, difficulty breathing, sustained shortness of breath, and as needed. Patient states understanding and has no further questions at this time Medical Records I reviewed the patient's medical records. Lab Data I reviewed the patient's lab results. 11/29/23 16:38 11/29/23 16:42 Radiology Impressions Chest X-Ray 11/29/23 15:38 IMPRESSION: Mild cardiomegaly and mild pulmonary vascular engorgement/congestion suggestive of mild CHF appearance, not as prominent as prior exam. Laboratory Results WBC 6.36 10^3/uL (3.29-11.43) 11/29/23 16:38 RBC 2.93 10^6/uL (3.85-5.65) L 11/29/23 16:38 Hgb 8.30 g/dL (11.27-16.99) L 11/29/23 16:38 Hct 28.2 % (36-47) L 11/29/23 16:38 MCV 96.2 fl (85-98) 11/29/23 16:38 MCH 28.3 pg (27-33) 11/29/23 16:38 MCHC 29.4 g/dL (30-55) L 11/29/23 16:38 RDW 16.0 % (12.1-15.1) H 11/29/23 16:38 Plt Count 184 10^3/cmm (157-399) 11/29/23 16:38 MPV 11.3 fL (7.4-10.4) H 11/29/23 16:38 Neut % (Auto) 75.9 % 11/29/23 16:38 Lymph % (Auto) 12.1 % 11/29/23 16:38 [place] % (Auto) 7.9 % 11/29/23 16:38 Eos % (Auto) 2.8 % 11/29/23 16:38 Baso % (Auto) 0.8 % 11/29/23 16:38 Neut # (Auto) 4.83 10^3/uL (1.8-7.7) 11/29/23 16:38 Lymph # (Auto) 0.8 10^3/uL (0.8-4.8) 11/29/23 16:38 [place] # (Auto) 0.5 10^3/uL (0.2-0.9) 11/29/23 16:38 Eos # (Auto) 0.2 10^3/uL (0.0-0.8) 11/29/23 16:38 Baso # (Auto) 0.1 10^3/uL (0.0-0.1) 11/29/23 16:38 Nucleated RBC % (auto) 0 % 11/29/23 16:38 Nucleated RBCs # 0.0 /100WBC 11/29/23 16:38 Sodium 141 mmol/L (136-145) 11/29/23 16:42 Potassium 4.5 mmol/L (3.5-5.1) 11/29/23 16:42 Chloride 101 mmol/L (98-107) 11/29/23 16:42 Carbon Dioxide 28 mmol/L (22-29) 11/29/23 16:42 Anion Gap 16.5 (5-19) 11/29/23 16:42 BUN 46 mg/dL (8-23) H 11/29/23 16:42 Creatinine 1.9 mg/dL (0.5-0.9) H 11/29/23 16:42 GFR Calculation 26.4 mL/min (90-130) L 11/29/23 16:42 Glucose 92 mg/dL (65-115) 11/29/23 16:42 Calculated Osmolality 304 mOsm/kg (285-295) H 11/29/23 16:42 Calcium 9.6 mg/dL (8.5-10.5) 11/29/23 16:42 Total Bilirubin 0.4 mg/dL (0.15-1.2) 11/29/23 16:42 AST 22 U/L (0-32) 11/29/23 16:42 ALT 23 U/L (0-33) 11/29/23 16:42 Alkaline Phosphatase 102 U/L (35-105) 11/29/23 16:42 NT-Pro-B Natriuret Pep 6900 pg/mL (0-125) H 11/29/23 16:42 Total Protein 7.4 g/dL (6.6-8.7) 11/29/23 16:42 Albumin 3.9 g/dL (3.5-5.2) 11/29/23 16:42 Globulin 3.5 g/dL (1.3-4.6) 11/29/23 16:42 All radiology interpretation(s) finalized by discharge Discharge Plan Discharge Patient Disposition: Home Clinical Impression: Bilateral edema of lower extremity, CKD (chronic kidney disease) stage 4, GFR 15-29 ml/min Condition: Stable Prescriptions: No Action hydroxychloroquine 200 mg tablet 200 mg PO BID Qty: 180 1RF triamcinolone acetonide 0.1 % ointment 1 applic TOPICAL DAILY PRN (Reason: itching) Qty: 30 0RF Rx Instructions: skin arms, legs torso (DME) lancing device with lancets [OneTouch Delica Plus Lanc Dev] Kit See Rx Instructions .Route Qty: 1 0RF Rx Instructions: As directed (DME) lancets [OneTouch Delica Lancets] 33 gauge misc See Rx Instructions .Route Qty: 100 5RF Rx Instructions: three times day (DME) diabetic shoes with inserts See Rx Instructions .Route .MEDSUPPLY Qty: 1 0RF Rx Instructions: As directed dicyclomine 20 mg tablet 20 mg PO QID PRN (Reason: stooling) ferrous sulfate 325 mg (65 mg iron) tablet,delayed release (DR/EC) 325 mg PO DAILY insulin degludec [Tresiba FlexTouch U-200] 200 unit/mL (3 mL) insulin pen 80 unit SUBCUT DAILY Qty: 18 2RF clindamycin phosphate 1 % lotion See Rx Instructions .ROUTE .COMPLEX Qty: 60 1RF Dose Instruction: APPLY TOPICALLY TWICE DAILY NEEDED FOR SKIN IRRITATION Rx Instructions: APPLY TOPICALLY TWICE DAILY NEEDED FOR SKIN IRRITATION (DME) blood-glucose meter [OneTouch Ultra2 Meter] Kit See Rx Instructions .Route Qty: 1 0RF Rx Instructions: As directed isosorbide mononitrate 60 mg tablet extended release 24 hr 60 mg PO DAILY Qty: 90 0RF Rx Instructions: 04/13/23 YOU NEED TO MAKE AN APPOINTMENT TO BE SEEN PRIOR TO ANY MORE REFILLS Nystop 100,000 unit/gram powder 1 applic topical BID Qty: 15 2RF hydroxyzine pamoate 50 mg capsule 50 mg PO .at bedtime Qty: 90 2RF (DME) Bariatric emy lift See Rx Instructions .Route .MEDSUPPLY Qty: 1 0RF Rx Instructions: BMI 57.5% weight 325# potassium chloride 10 mEq tablet extended release 10 meq PO BID Qty: 60 0RF Rx Instructions: only with bumex (DME) OneTouch Ultra Test Strip See Rx Instructions .Route Qty: 100 5RF Rx Instructions: 1 strip three time day (DME) pen needle, diabetic [TechLITE Pen Needle] 31 gauge x 5/16 needle See Rx Instructions .ROUTE .MEDSUPPLY Qty: 200 5RF Rx Instructions: use 4 times day insulin lispro [Humalog KwikPen Insulin] 100 unit/mL insulin pen See Rx Instructions SUBCUT .COMPLEX Qty: 15 0RF Rx Instructions: 6-27U SUBCUT three times daily subcutaneously; per sliding scale nitroglycerin [Nitrostat] 0.4 mg tablet, sublingual 0.4 mg SUBLINGUAL Q5M PRN (Reason: Chest Pain) Qty: 50 3RF Rx Instructions: do not exceed 3 doses per episode cholecalciferol (vitamin D3) [Vitamin D3] 125 mcg (5,000 unit) Tablet 125 mcg PO DAILY acetaminophen 325 mg tablet 325 - 650 mg PO Q6H PRN (Reason: Pain) Vitamin B-12 50 mcg Tablet 50 mcg PO DAILY Qty: 0 fluoxetine 40 mg capsule 40 mg PO BEDTIME fluoxetine 20 mg capsule 20 mg PO DAILY magnesium oxide 400 mg magnesium tablet 400 mg PO DAILY PRN (Reason: Muscle Spasm) oxycodone 5 mg tablet 2.5 - 5 mg PO Q8H PRN (Reason: Pain) rosuvastatin 10 mg tablet 10 mg PO QPM metoprolol tartrate 25 mg tablet 25 mg PO BID Qty: 60 0RF amlodipine 10 mg tablet 10 mg PO DAILY Qty: 60 3RF hydralazine 25 mg Tablet 50 mg PO TID Qty: 90 2RF bumetanide 2 mg tablet 2 mg PO BID Qty: 90 0RF ProAir HFA 90 mcg/actuation HFA aerosol inhaler 2 puff INHALATION Q4H PRN (Reason: shortness of breath or wheezing) Qty: 8.5 3RF pantoprazole 40 mg tablet,delayed release (DR/EC) 40 mg PO DAILY Discharge Orders: Discharge ED (Routine); Ordered 11/29/23 Ordered By: Solo Gustafson Referrals: Lorenzo Muller, [facility] HARVESTERE[facility] [Primary Care Provider] - Discharge Diet: Usual diet Discharge Activity: Increase activity as tolerated Patient Instructions: Leg Edema (ED) Activity Restrictions/Additional Instructions: Continue with your home Bumex to help keep the fluid moving Follow-up with your kidney doctor as soon as possible You may also need to follow-up with primary care for an ER follow-up visit Return to the emergency department if any rapid worsening symptoms, difficulty breathing, sustained shortness of breath, chest pain, and as needed. Coding Level of Care Code ED Public Relations Manager for Anel Mcknight
[2023-11-29] MEDS: FUROsemide 10 mg/mL SDV 10mL 60 MG IVP (16:46)
[2023-11-29 16:48] VITALS: RESP 19; O2SAT 94
[2023-11-29] MEDS: oxyCODONE-APAP 5-325 mg Tablet 1 TAB PO (16:48)
[2023-11-29 17:12] LABS: Basophils # 0.1 10^3/uL (0.0-0.1); Basophils % 0.8 %; Eosinophils # 0.2 10^3/uL (0.0-0.8); Eosinophils % 2.8 %; Hematocrit 28.2 % (36-47); Lymphocytes # 0.8 10^3/uL (0.8-4.8); Lymphocytes % 12.1 %; Mean Corpuscular HGB Conc 29.4 g/dL (30-55); Mean Corpuscular Hemoglobin 28.3 pg (27-33); Mean Corpuscular Volume 96.2 fl (85-98); Mean Platelet Volume 11.3 fL (7.4-10.4); Monocytes # 0.5 10^3/uL (0.2-0.9); Monocytes % 7.9 %; Neutrophils # 4.83 10^3/uL (1.8-7.7); Neutrophils % 75.9 %; Nucleated Red Blood Cells % 0 %; Platelet Count 184 10^3/cmm (157-399); Red Blood Count 2.93 10^6/uL (3.85-5.65); White Blood Count 6.36 10^3/uL (3.29-11.43)
[2023-11-29 17:37] LABS: Alanine Aminotransferase 23 U/L (0-33); Albumin Level 3.9 g/dL (3.5-5.2); Alkaline Phosphatase 102 U/L (35-105); Anion Gap 16.5 (5-19); Aspartate Amino Transferase 22 U/L (0-32); Blood Urea Nitrogen 46 mg/dL (8-23); Calcium 9.6 mg/dL (8.5-10.5); Carbon Dioxide 28 mmol/L (22-29); Chloride 101 mmol/L (98-107); Globulin 3.5 g/dL (1.3-4.6); Glomerular Filtration Rate 26.4 mL/min (90-130); Glucose 92 mg/dL (65-115); NT Pro B Type Natriuretic Pept 6900 pg/mL (0-125); Osmolality Calculated 304 mOsm/kg (285-295); Potassium 4.5 mmol/L (3.5-5.1); Sodium 141 mmol/L (136-145); Total Bilirubin 0.4 mg/dL (0.15-1.2); Total Protein 7.4 g/dL (6.6-8.7)
[2023-11-29 17:46] VITALS: BP 170/65; PULSE 75; RESP 18; O2SAT 100
--- NOTE | 2023-11-29 18:00 | PC.NURSE ---
Assisted pt to the bathroom via wheelchair, urinated 1000cc. Pt states she feels better and is ready to go home.
[2023-11-29 19:12] VITALS: BP 165/88; PULSE 90; RESP 18; O2SAT 94
== END 2023-11-29 19:22 | disposition home or self-care (01) ==
PROVIDERS: Emergency Provider Physician Assistant; PCP Nurse Practitioner
DX: R60.0 Localized edema (principal); E11.22 Type 2 diabetes mellitus with diabetic chronic kidney disease; I13.0 Hypertensive heart and chronic kidney disease with heart failure and stage 1 through stage 4 chronic kidney disease, or unspecified chronic kidney disease; I50.9 Heart failure, unspecified; N18.4 Chronic kidney disease, stage 4 (severe); Z79.4 Long term (current) use of insulin; I13.10 Hypertensive heart and chronic kidney disease without heart failure, with stage 1 through stage 4 chronic kidney disease, or unspecified chronic kidney disease; Z87.891 Personal history of nicotine dependence
CPT/HCPCS: 36415; 71045; 80053; 83880; 85025; 96374; 99284; J1940

== ENCOUNTER 2023-12-12 14:01 | Inpatient (IN) | payer MEDICARE, MEDICAID, SELFPAY ==
[2023-12-12] VITALS (52 sets, daily range): BP systolic 153–183; BP diastolic 80–98; PULSE 64–78; RESP 8–37; TEMP 36.6–36.7; O2SAT 86–100; BMI 65.5
--- NOTE | 2023-12-12 14:47 | XR_ITS ---
WS: [id number] XR chest 1V portable [id number] REASON FOR EXAM: CHF FINDINGS: Compared to the previous examination of 11/29/2023 lungs are less well-expanded and the patient is rota sailaja to the left. These findings likely account for overall mildly increased density of the right guillermo thorax. Central venous congestion again noted. Mild accentuation of interstitium in the lower lung shaikh. Blunting of both costophrenic angles. No definite new findings compared to the previous examination. IMPRESSION: Considering the difference in lung expansion most likely stable abnormal chest which is compatible ch ronic congestive heart failure.
--- NOTE | 2023-12-12 14:58 | ECG_ITS ---
[facility] Test Date: 2023-12-12 Pat Name: Jennifer Novak Department: Room: Gender: Female Medical Management Trainer: : 1955 Requested By: Ander Ortega Order Number: [id number] Reading MD: Sammy Aquino M.D. Measurements Intervals [place] Rate: 79 P: 68 DE: 269 QRS: -80 QRSD: 158 T: 78 QT: 462 QTc: 533 Interpretive Statements SINUS RHYTHM WITH FIRST DEGREE AV BLOCK WITH OCCASIONAL VENTRICULAR PREMATURE COMPLEXES INDETERMINATE AXIS RIGHT BUNDLE BRANCH BLOCK [120+ ms QRS DURATION, UPRIGHT V1, 40+ ms S IN I/aVL/V4/V5/V6] Compared to ECG 10/04/2023 19:37:28 Ventricular premature complex(es) now present Indeterminate axis now present Left-axis deviation no longer present Electronically Signed On 12-12-2023 18:49:36 AIRPLANE PATROL PILOT by Sammy Aquino M.D. [id number]
[2023-12-12 15:06] LABS: Basophils # 0.1 10^3/uL (0.0-0.1); Basophils % 1.1 %; Eosinophils # 0.2 10^3/uL (0.0-0.8); Eosinophils % 3.4 %; Hematocrit 27.4 % (36-47); Lymphocytes # 0.6 10^3/uL (0.8-4.8); Lymphocytes % 9.8 %; Mean Corpuscular HGB Conc 30.7 g/dL (30-55); Mean Corpuscular Hemoglobin 28.4 pg (27-33); Mean Corpuscular Volume 92.6 fl (85-98); Mean Platelet Volume 10.6 fL (7.4-10.4); Monocytes # 0.5 10^3/uL (0.2-0.9); Monocytes % 7.8 %; Neutrophils # 4.85 10^3/uL (1.8-7.7); Neutrophils % 77.6 %; Nucleated Red Blood Cells % 0 %; Platelet Count 199 10^3/cmm (157-399); Red Blood Count 2.96 10^6/uL (3.85-5.65); Red Cell Distribution Width 16.4 % (12.1-15.1); White Blood Count 6.25 10^3/uL (3.29-11.43)
--- NOTE | 2023-12-12 15:12 | W.ED.FEMALGU ---
HPI - Female Genitourinary General: Chief complaint: Urogenital-Female Stated complaint: abd pain Time Seen by Provider: 12/12/23 14:47 History of Present Illness: 68-year-old female presents emergency department with complaints of increased edema to the bilateral lower legs extending up to the lower abdomen. She states this has been worsening over the previous 1 week. She states she does have a history of congestive heart failure and is taking diuretics but has not had very much urine output. She complains of 9 out of 10 pain because of the swelling to her legs. She denies shortness of breath or chest pain at present. She denies nausea vomiting fevers chills or night sweats. Review of Systems General: Reports: 10 or more systems reviewed and unremarkable except in HPI and below Card: Reports: edema and swelling of feet/ankles Musc: Reports: extremity pain Skin/Breast: Reports: rash and erythema PFSH ED PFSH: Medical History (Updated 12/12/23 @ 17:33 by Ander Ortega MD) Gastric ulcer H. pylori ruled out at [facility]-acquired pneumonia Acute exacerbation of CHF (congestive heart failure) Acute on chronic renal failure Diabetic gastroparesis Hypoxia Anemia Positive GIFTY (antinuclear antibody) Frequent falls Muscle spasm High risk medication use Seronegative rheumatoid arthritis of both hands Diabetic foot Hip pain, left Benign hypertension Atypical chest pain IgM monoclonal gammopathy of uncertain significance Chronic diastolic heart failure Intermittent atrial fibrillation Chest pain Edema CKD (chronic kidney disease) stage 3, GFR 30-59 ml/min Urinary disorder Anxiety Pneumonitis Left lumbar radiculopathy Back pain Lymph edema Fracture of distal end of fibula Syncope and collapse Essential tremor Mobility impaired IBS (irritable bowel syndrome) Inflammatory arthritis Chronic back pain Chronic major depressive disorder Peripheral neuropathy Polyarthralgia Edema, peripheral Noncompliance with diabetes treatment Not consistent with diet Near syncope Monoclonal gammopathy Major depression Diabetic neuropathy associated with type 2 diabetes mellitus Severe obstructive sleep apnea Mild cognitive impairment with memory loss Dietary noncompliance Atrial flutter Coronary artery fistula Chronic obstructive pulmonary disease, unspecified Obesity CKD (chronic kidney disease) Benign hypertension Fibromyalgia Diverticulosis Environmental and seasonal allergies Situational anxiety Vitamin D deficiency Type 2 diabetes mellitus with diabetic chronic kidney disease Surgical History History of left heart catheterization (2017) No significant obstructive coronary disease Hx of esophagogastroduodenoscopy Hx of colonoscopy History of tonsillectomy History of section 4 times History of cholecystectomy (1993) History of hysterectomy (1997) with BSO Family History Brother Bleeding disorder CAD (coronary artery disease) Father CAD (coronary artery disease) Chronic kidney disease (CKD) Mother CAD (coronary artery disease) Cancer Diabetes Family/Other Cancer Other CHF (congestive heart failure) Heart disease Hypertension Denies family history of Clotting disorder Dementia Suicide Anesthesia complication Lung disease Stroke Social History Smoking and tobacco/nicotine status: former use of tobacco/nicotine Quit status (tobacco/nicotine): has quit using Year quit tobacco: 1990 Former quit date comment: smoked 20+ years Second hand smoke exposure: No Alcohol intake: never Substance/Drug Use: never Adopted: No Caregiver/support person: Yes Lives independently: No Household members: children and other Details: Son, sometimes grandson Housing: House Marital status: Single service: No Current occupational status: disabled Do you think of yourself as: Straight/Heterosexual Current gender identity: Female Physical Exam Narrative: EXAM NARRATIVE: Constitutional: the patient appears well nourished and with normal development. Vital signs reviewed as documented. HENMT: Normocephalic, atraumatic. External ears normal appearance without drainage. Nose without drainage, normal appearance. Mucus membranes moist. Neck is supple, No jugular venous distension, trachea is midline, no appreciable carotid bruits. No lymphadenopathy. No meningeal signs. Flexion, extension and lateral rotation is without pain. Eyes: Pupils are equal, round, reactive to light and accommodation. No scleral icterus. Extra-ocular movement are intact. Thorax is symmetrical and with equal rise and fall with respirations. Resp: Lungs are clear to auscultation. No wheezes, rales, crackles or ronchi at present. Cardio: Regular rate and rhythm. Positive S1, S2. No appreciable murmurs, rubs or gallops. GI: Abdominal exam reveals normal bowel sounds to all quadrants. No organomegaly. No obvious palpable masses noted. No hepatomegally appreciated. Soft, non-tender to palpation. Extremity: Extremities are with 3+ bilateral lower extremity pitting edema. Both femoral and pedal pulses are 2+ and equal bilaterally. Moves all extremities well, sensation in all extremities. Neuro: Alert and oriented x4, person, place, time and situation. Cranial nerves II through XII are grossly intact, there is no focal neurological deficits that I can appreciate at present. Motor strength in the upper and lower extremities are equal and bilateral 5/5. Psych: Cooperative, calm, normal thought process, appropriate judgment. Skin: No lesions. Erythematous rash to the bilateral lower abdomen consistent with excessive yeast noted to the pannus area. Back: Symmetrical, no obvious deformity, No CVA tenderness Course Vital Signs: Vital signs: Vital Signs Temperature 97.9 F 12/12/23 14:04 Pulse Rate 78 12/12/23 15:00 Respiratory Rate 24 H 12/12/23 16:45 Blood Pressure 181/93 12/12/23 15:00 Pulse Oximetry 100 12/12/23 15:00 Oxygen Delivery Me thod Nasal Cannula 12/12/23 15:00 Oxygen Flow Rate 2 12/12/23 15:00 MDM - Female Medical Decision Making 68-year-old female presents emergency department via EMS personnel with complaints of decreased urinary output and increased lower extremity swelling she does have a history of congestive heart failure, we will obtain a CBC, CMP, BNP, serial troponins and twelve-lead EKGs, we also will obtain a chest x-ray and urinalysis. I suspect most likely given this patient's chronic illness she will require admission and evaluation for her decreased urinary output I suspect overuse secondary to her diuretics resultant in acute on chronic renal failure. I have contacted the hospitalist to discuss the patient's evaluation and request admission for the patient's acute on chronic renal failure and CHF exacerbation. Medical Records I reviewed the patient's medical records. Lab Data I reviewed the patient's lab results. 12/12/23 14:58 12/12/23 14:58 Laboratory Results WBC 6.25 10^3/uL (3.29-11.43) 12/12/23 14:58 RBC 2.96 10^6/uL (3.85-5.65) L 12/12/23 14:58 Hgb 8.40 g/dL (11.27-16.99) L 12/12/23 14:58 Hct 27.4 % (36-47) L 12/12/23 14:58 MCV 92.6 fl (85-98) 12/12/23 14:58 MCH 28.4 pg (27-33) 12/12/23 14:58 MCHC 30.7 g/dL (30-55) 12/12/23 14:58 RDW 16.4 % (12.1-15.1) H 12/12/23 14:58 Plt Count 199 10^3/cmm (157-399) 12/12/23 14:58 MPV 10.6 fL (7.4-10.4) H 12/12/23 14:58 Neut % (Auto) 77.6 % 12/12/23 14:58 Lymph % (Auto) 9.8 % 12/12/23 14:58 [place] % (Auto) 7.8 % 12/12/23 14:58 Eos % (Auto) 3.4 % 12/12/23 14:58 Baso % (Auto) 1.1 % 12/12/23 14:58 Neut # (Auto) 4.85 10^3/uL (1.8-7.7) 12/12/23 14:58 Lymph # (Auto) 0.6 10^3/uL (0.8-4.8) L 12/12/23 14:58 [place] # (Auto) 0.5 10^3/uL (0.2-0.9) 12/12/23 14:58 Eos # (Auto) 0.2 10^3/uL (0.0-0.8) 12/12/23 14:58 Baso # (Auto) 0.1 10^3/uL (0.0-0.1) 12/12/23 14:58 Nucleated RBC % (auto) 0 % 12/12/23 14:58 Nucleated RBCs # 0.0 /100WBC 12/12/23 14:58 PT 15.70 SECONDS (12.1-14.9) H 12/12/23 14:58 INR 1.21 (0.8-1.2) H 12/12/23 14:58 Sodium 139 mmol/L (136-145) 12/12/23 14:58 Potassium 4.9 mmol/L (3.5-5.1) 12/12/23 14:58 Chloride 100 mmol/L (98-107) 12/12/23 14:58 Carbon Dioxide 29 mmol/L (22-29) 12/12/23 14:58 Anion Gap 14.9 (5-19) 12/12/23 14:58 BUN 74 mg/dL (8-23) H 12/12/23 14:58 Creatinine 2.8 mg/dL (0.5-0.9) H 12/12/23 14:58 GFR Calculation 16.9 mL/min (90-130) L 12/12/23 14:58 Glucose 105 mg/dL (65-115) 12/12/23 14:58 Calculated Osmolality 310 mOsm/kg (285-295) H 12/12/23 14:58 Calcium 9.8 mg/dL (8.5-10.5) 12/12/23 14:58 Total Bilirubin 0.3 mg/dL (0.15-1.2) 12/12/23 14:58 AST 23 U/L (0-32) 12/12/23 14:58 ALT 21 U/L (0-33) 12/12/23 14:58 Alkaline Phosphatase 111 U/L (35-105) H 12/12/23 14:58 Troponin T Baseline 73 ng/L (0-10) H 12/12/23 14:58 NT-Pro-B Natriuret Pep 9694 pg/mL (0-125) H 12/12/23 14:58 Total Protein 7.3 g/dL (6.6-8.7) 12/12/23 14:58 Albumin 4.0 g/dL (3.5-5.2) 12/12/23 14:58 Globulin 3.3 g/dL (1.3-4.6) 12/12/23 14:58 Urine Color Yellow (Yellow) 12/12/23 15:33 Urine Appearance Clear (CLEAR) 12/12/23 15:33 Urine pH 5 (5-7) 12/12/23 15:33 Ur Specific [place] 1.020 (1.005-1.030) 12/12/23 15:33 Urine Protein 1+ (Negative) H 12/12/23 15:33 Urine Glucose (UA) Norm (Normal) 12/12/23 15:33 Urine Ketones Negative (Negative) 12/12/23 15:33 Urine Blood Neg (Negative) 12/12/23 15:33 Urine Nitrate Negative (Negative) 12/12/23 15:33 Urine Bilirubin Neg (Negative) 12/12/23 15:33 Urine Urobilinogen Norm mg/dL (Negative) 12/12/23 15:33 Ur Leukocyte Esterase Negative (Negative) 12/12/23 15:33 Urine RBC None /hpf (0-2) 12/12/23 15:33 Urine WBC 0-4 /hpf (0-5) H 12/12/23 15:33 Ur Squamous Epith Cells 0-4 /hpf (0-5) H 12/12/23 15:33 Amorphous Sediment Not Reportable 12/12/23 15:33 Urine Bacteria Trace /hpf (NONE) 12/12/23 15:33 Hyaline Casts 0-4 /lpf H 12/12/23 15:33 All radiology interpretation(s) finalized by discharge EKG Data EKG 1: Interpretation: Twelve-lead EKG obtained at 1652 and reviewed at 1655 demonstrates sinus rhythm with a right bundle branch block, ventricular rate of 78 bpm, [place] interval 169, QRS durations 168, QT 470 QTc [address] elevation or depression to demonstrate acute ischemia or infarction at present. Discharge Plan Discharge Patient Disposition: Admitted As Inpatient Clinical Impression: Acute exacerbation of congestive heart failure, Acute on chronic kidney failure, Edema leg Condition: Stable Prescriptions: No Action hydroxychloroquine 200 mg tablet 200 mg PO BID Qty: 180 1RF triamcinolone acetonide 0.1 % ointment 1 applic TOPICAL DAILY PRN (Reason: itching) Qty: 30 0RF Rx Instructions: skin arms, legs torso (DME) lancing device with lancets [OneTouch Delica Plus Lanc Dev] Kit See Rx Instructions .Route Qty: 1 0RF Rx Instructions: As directed (DME) lancets [OneTouch Delica Lancets] 33 gauge misc See Rx Instructions .Route Qty: 100 5RF Rx Instructions: three times day (DME) diabetic shoes with inserts See Rx Instructions .Route .MEDSUPPLY Qty: 1 0RF Rx Instructions: As directed dicyclomine 20 mg tablet 20 mg PO QID PRN (Reason: stooling) insulin degludec [Tresiba FlexTouch U-200] 200 unit/mL (3 mL) insulin pen 80 unit SUBCUT DAILY Qty: 18 2RF clindamycin phosphate 1 % lotion See Rx Instructions .ROUTE .COMPLEX Qty: 60 1RF Dose Instruction: APPLY TOPICALLY TWICE DAILY NEEDED FOR SKIN IRRITATION Rx Instructions: APPLY TOPICALLY TWICE DAILY NEEDED FOR SKIN IRRITATION (DME) blood-glucose meter [OneTouch Ultra2 Meter] Kit See Rx Instructions .Route Qty: 1 0RF Rx Instructions: As directed isosorbide mononitrate 60 mg tablet extended release 24 hr 60 mg PO DAILY Qty: 90 0RF Rx Instructions: 04/13/23 YOU NEED TO MAKE AN APPOINTMENT TO BE SEEN PRIOR TO ANY MORE REFILLS Nystop 100,000 unit/gram powder 1 applic topical BID Qty: 15 2RF hydroxyzine pamoate 50 mg capsule 50 mg PO .at bedtime Qty: 90 2RF (DME) Bariatric emy lift See Rx Instructions .Route .MEDSUPPLY Qty: 1 0RF Rx Instructions: BMI 57.5% weight 325# potassium chloride 10 mEq tablet extended release 10 meq PO BID Qty: 60 0RF Rx Instructions: only with bumex (DME) OneTouch Ultra Test Strip See Rx Instructions .Route Qty: 100 5RF Rx Instructions: 1 strip three time day (DME) pen needle, diabetic [TechLITE Pen Needle] 31 gauge x 5/16 needle See Rx Instructions .ROUTE .MEDSUPPLY Qty: 200 5RF Rx Instructions: use 4 times day insulin lispro [Humalog KwikPen Insulin] 100 unit/mL insulin pen See Rx Instructions SUBCUT .COMPLEX Qty: 15 0RF Rx Instructions: 6-27U SUBCUT three times daily subcutaneously; per sliding scale nitroglycerin [Nitrostat] 0.4 mg tablet, sublingual 0.4 mg SUBLINGUAL Q5M PRN (Reason: Chest Pain) Qty: 50 3RF Rx Instructions: do not exceed 3 doses per episode ferrous sulfate 325 mg (65 mg iron) tablet,delayed release (DR/EC) 325 mg PO DAILY Qty: 30 2RF cholecalciferol (vitamin D3) [Vitamin D3] 125 mcg (5,000 unit) Tablet 125 mcg PO DAILY acetaminophen 325 mg tablet 325 - 650 mg PO Q6H PRN (Reason: Pain) Vitamin B-12 50 mcg Tablet 50 mcg PO DAILY Qty: 0 fluoxetine 40 mg capsule 40 mg PO BEDTIME fluoxetine 20 mg capsule 20 mg PO DAILY magnesium oxide 400 mg magnesium tablet 400 mg PO DAILY PRN (Reason: Muscle Spasm) oxycodone 5 mg tablet 2.5 - 5 mg PO Q8H PRN (Reason: Pain) rosuvastatin 10 mg tablet 10 mg PO QPM metoprolol tartrate 25 mg tablet 25 mg PO BID Qty: 60 0RF amlodipine 10 mg tablet 10 mg PO DAILY Qty: 60 3RF hydralazine 25 mg Tablet 50 mg PO TID Qty: 90 2RF bumetanide 2 mg tablet 2 mg PO BID Qty: 90 0RF ProAir HFA 90 mcg/actuation HFA aerosol inhaler 2 puff INHALATION Q4H PRN (Reason: shortness of breath or wheezing) Qty: 8.5 3RF pantoprazole 40 mg tablet,delayed release (DR/EC) 40 mg PO DAILY Referrals: Lorenzo Muller, WELLNESS COORDINATOR-C [Primary Care Provider] - Coding Level of Care Code ED Angular Developer for Anel Mcknight
[2023-12-12 15:21] LABS: INR 1.21 (0.8-1.2)
[2023-12-12 15:32] LABS: Troponin(5th) Baseline 73 ng/L (0-10)
[2023-12-12 15:41] LABS: Alanine Aminotransferase 21 U/L (0-33); Alkaline Phosphatase 111 U/L (35-105); Anion Gap 14.9 (5-19); Aspartate Amino Transferase 23 U/L (0-32); Blood Urea Nitrogen 74 mg/dL (8-23); Calcium 9.8 mg/dL (8.5-10.5); Carbon Dioxide 29 mmol/L (22-29); Chloride 100 mmol/L (98-107); Globulin 3.3 g/dL (1.3-4.6); Glomerular Filtration Rate 16.9 mL/min (90-130); Glucose 105 mg/dL (65-115); NT Pro B Type Natriuretic Pept 9694 pg/mL (0-125); Osmolality Calculated 310 mOsm/kg (285-295); Potassium 4.9 mmol/L (3.5-5.1); Sodium 139 mmol/L (136-145); Total Bilirubin 0.3 mg/dL (0.15-1.2); Total Protein 7.3 g/dL (6.6-8.7)
[2023-12-12 15:44] LABS: Add Urine Microscopic? YES; Bilirubin Urine Neg (Negative); Blood Urine Neg (Negative); Glucose Urine UA Norm (Normal); Ketones Urine Negative (Negative); Leukocyte Esterase Urine Negative (Negative); Nitrate Urine Negative (Negative); Protein Urine 1+ (Negative); Urine Appearance Clear (CLEAR); Urine Color Yellow (Yellow); Urobilinogen Urine Norm (Negative); pH Urine 5 (5-7)
[2023-12-12 15:45] LABS: Add Urine Culture? No; Bacteria Urine TRACE /hpf; Hyaline Casts Urine 0-4 /lpf; Squamous Epithelial Cell Urine 0-4 /hpf (0-5); WBC Urine 0-4 /hpf (0-5)
[2023-12-12] MEDS: fentaNYL 50 mcg/mL INJ 2mL IVP (16:45)
--- NOTE | 2023-12-12 16:52 | ECG_ITS ---
Test Date: 2023-12-12 Pat Name: Jennifer Novak Department: Room: Gender: Female Paving Inspector: : 1955 Requested By: Ander Ortega Order Number: [id number] Cierra MD: Sammy Aquino M.D. Measurements Intervals [place] Rate: 78 P: -69 [place]: 169 QRS: -86 QRSD: 168 T: 77 QT: 470 QTc: 536 Interpretive Statements SINUS RHYTHM INDETERMINATE AXIS RIGHT BUNDLE BRANCH BLOCK [120+ ms QRS DURATION, UPRIGHT V1, 40+ ms S IN I/aVL/V4/V5/V6] LEFT ANTERIOR FASCICULAR BLOCK [QRS AXIS <= -45, QR IN I, RS IN II] SEPTAL MYOCARDIAL INFARCTION , OF INDETERMINATE AGE [40+ ms Q WAVE IN V1/V2] Compared to ECG 12/12/2023 14:58:39 Left anterior fascicular block now present Myocardial infarct finding now present Ventricular premature complex(es) no longer present First degree AV block no longer present Electronically Signed On 12-13-2023 20:03:19 REPRODUCTION TECHNICIAN by Sammy Aquino M.D. [id number]
[2023-12-12 17:35] LABS: Troponin 5 2HR 70.53 ng/L (0-10)
[2023-12-12 17:36] LABS: Troponin 5 2HR Delta -2.47 ABS# (0-10)
[2023-12-12] MEDS: FUROsemide 100 MG in sodium chloride 0.9% 40 ML IV (17:46)
[2023-12-12] MEDS: FUROsemide 10 mg/mL SDV 10mL 80 MG IVP (17:48)
--- NOTE | 2023-12-12 18:39 | P.HP_ITS ---
Providers/Chief Complaint 2 Admitting Physician: Brett Raphael MD Primary Care Provider: PARAG Mensah Chief Complaint: abd pain History of Present Illness Jennifer Novak is a 68 year old female presenting to the emergency department with complaints of shortness of breath, abdominal and leg swelling for the last 2 days severely but coming on for the last 2 weeks. She reports no fever, chills. She believes she has a lot of extra fluid. She has been taking her diuretics as prescribed. She denies any chest pain. She had a previous hospital stay in August, where I believe she was eventually transferred to [facility], and then went to senior care. Her anticoagulation was stopped at that time secondary to her severe anemia. Review of Systems 2 Card: Reports: swelling of feet/ankles; Denies: chest pain Resp: Reports: dyspnea; Denies: productive cough GI: Denies: nausea or vomiting Medications/Allergies Home Medications Medication Instructions Recorded Confirmed Last Taken Type cholecalciferol (vitamin D3) 125 125 mcg PO DAILY 05/14/21 10/12/23 09/08/23 History mcg (5,000 unit) tablet (Vitamin D3) acetaminophen 325 mg tablet 325 - 650 mg PO Q6H PRN Pain 12/13/21 10/12/23 Unknown History clindamycin phosphate 1 % lotion See Rx Instructions .Route 02/03/22 10/12/23 09/07/23 Rx .COMPLEX #60 mL cyanocobalamin (vitamin B-12) 50 50 mcg PO DAILY ##0 04/12/22 10/12/23 09/07/23 History mcg tablet (Vitamin B-12) blood-glucose meter (OneTouch #1 ea 09/29/22 10/12/23 Unknown Rx Ultra2 Meter kit) diabetic shoes with inserts #1 ea 02/25/23 10/12/23 Unknown Rx isosorbide mononitrate 60 mg 60 mg PO DAILY #90 tabs 04/13/23 10/12/23 09/07/23 Rx tablet,extended release 24 hr hydroxychloroquine 200 mg tablet 200 mg PO BID #180 tabs 05/02/23 10/12/23 09/07/23 Rx triamcinolone acetonide 0.1 % 1 applic topical DAILY PRN itching 05/10/23 10/12/23 Unknown Rx topical ointment #30 grams lancets 33 gauge (GI TrackTouch Delica #100 ea 05/13/23 10/12/23 Unknown Rx Lancets) lancing device with lancets kit #1 ea 05/13/23 10/12/23 Unknown Rx (GI TrackTouch Delica Plus Lancing Device kit) fluoxetine 20 mg capsule 20 mg PO DAILY 08/13/23 10/12/23 09/07/23 History fluoxetine 40 mg capsule 40 mg PO BEDTIME 08/13/23 10/12/23 09/07/23 History magnesium oxide 400 mg PO DAILY PRN Muscle Spasm 08/13/23 10/12/23 09/07/23 History oxycodone 5 mg tablet 2.5 - 5 mg PO Q8H PRN Pain 09/08/23 10/12/23 Unknown History rosuvastatin 10 mg tablet 10 mg PO QPM 09/08/23 10/12/23 09/07/23 History albuterol sulfate 90 mcg/actuation 2 puff inhalation Q4H PRN 09/15/23 10/12/23 08/13/23 20:00 Rx aerosol inhaler (ProAir HFA) shortness of breath or wheezing #8.5 grams amlodipine 10 mg tablet 10 mg PO DAILY #60 tabs 09/15/23 10/12/23 Unknown Rx bumetanide 2 mg tablet 2 mg PO BID #90 tabs 09/15/23 10/12/23 Unknown Rx hydralazine 25 mg tablet 50 mg (2 x 25 mg) PO TID #90 tabs 09/15/23 10/12/23 Unknown Rx metoprolol tartrate 25 mg tablet 25 mg PO BID #60 tabs 09/15/23 10/12/23 Unknown Rx dicyclomine 20 mg tablet 20 mg PO QID PRN stooling 10/12/23 10/12/23 Unknown History insulin degludec 200 unit/mL (3 80 unit (0.4 mL) SUBCUT DAILY #18 10/12/23 10/12/23 Unknown Rx mL) subcutaneous pen (Tresiba mL FlexTouch U-200 insulin) pantoprazole 40 mg tablet,delayed 40 mg PO DAILY 10/12/23 10/12/23 Unknown History release nystatin 100,000 unit/gram topical 1 applic topical BID #15 grams 10/26/23 Unknown Rx powder (Nystop) hydroxyzine pamoate 50 mg capsule 50 mg PO .at bedtime #90 caps 10/28/23 Unknown Rx Bariatric emy lift #1 ea 11/04/23 Unknown Rx blood sugar diagnostic (OneTouch #100 ea 11/21/23 Unknown Rx Ultra Test strips) pen needle, diabetic 31 gauge x #200 ea 11/21/23 Unknown Rx 5/16 (TechLITE Pen Needle) potassium chloride 10 mEq 10 meq PO BID #60 tabs 11/21/23 Unknown Rx tablet,extended release insulin lispro 100 unit/mL See Rx Instructions SUBCUT 11/25/23 Unknown Rx subcutaneous pen (Humalog KwikPen .COMPLEX #15 mL (U-100) Insulin) nitroglycerin 0.4 mg sublingual 0.4 mg sublingual Q5M PRN Chest 11/25/23 Unknown Rx tablet (Nitrostat) Pain #50 tabs ferrous sulfate 325 mg (65 mg 325 mg PO DAILY #30 tabs 11/30/23 Unknown Rx iron) tablet,delayed release Allergies Allergy/AdvReac Type Severity Reaction Status Date / Time acetaminophen [From Burns] Allergy Unknown Verified 12/12/23 14:09 bacitracin Allergy ADR-Nausea Verified 12/12/23 14:09 codeine Allergy ADR-Nausea Verified 12/12/23 14:09 hydrocodone [From Burns] Allergy Unknown Verified 12/12/23 14:09 Latex, Natural Rubber Allergy Unknown Verified 12/12/23 14:09 morphine Allergy ADR-Itching Verified 12/12/23 14:09 neomycin Allergy ALGY-Rash Verified 12/12/23 14:09 [From Neosporin ([id number])] oxycodone Allergy Unknown Verified 12/12/23 14:09 polymyxin B Allergy ALGY-Rash Verified 12/12/23 14:09 [From Neosporin ([id number])] Sulfa (Sulfonamide Allergy ADR-Nausea Verified 12/12/23 14:09 Antibiotics) sulfamethoxazole Allergy Unknown Verified 12/12/23 14:09 [From Bactrim] trimethoprim [From Bactrim] Allergy Unknown Verified 12/12/23 14:09 spironolactone AdvReac Severe temporary Uncoded 12/12/23 14:09 blindness PFSH Acute 2 PFSH: Medical History (Updated 12/12/23 @ 18:46 by Brett Raphael MD) Type 2 diabetes mellitus with diabetic chronic kidney disease Gastric ulcer H. pylori ruled out at [facility]-acquired pneumonia Acute exacerbation of CHF (congestive heart failure) Acute on chronic renal failure Diabetic gastroparesis Hypoxia Anemia Positive GIFTY (antinuclear antibody) Frequent falls Muscle spasm High risk medication use Seronegative rheumatoid arthritis of both hands Diabetic foot Hip pain, left Benign hypertension Atypical chest pain IgM monoclonal gammopathy of uncertain significance Chronic diastolic heart failure Intermittent atrial fibrillation Chest pain Edema CKD (chronic kidney disease) stage 3, GFR 30-59 ml/min Urinary disorder Anxiety Pneumonitis Left lumbar radiculopathy Back pain Lymph edema Fracture of distal end of fibula Syncope and collapse Essential tremor Mobility impaired IBS (irritable bowel syndrome) Inflammatory arthritis Chronic back pain Chronic major depressive disorder Peripheral neuropathy Polyarthralgia Edema, peripheral Noncompliance with diabetes treatment Not consistent with diet Near syncope Monoclonal gammopathy Major depression Diabetic neuropathy associated with type 2 diabetes mellitus Severe obstructive sleep apnea Mild cognitive impairment with memory loss Dietary noncompliance Atrial flutter Coronary artery fistula Chronic obstructive pulmonary disease, unspecified Obesity CKD (chronic kidney disease) Benign hypertension Fibromyalgia Diverticulosis Environmental and seasonal allergies Situational anxiety Vitamin D deficiency Surgical History History of left heart catheterization (2017) No significant obstructive coronary disease Hx of esophagogastroduodenoscopy Hx of colonoscopy History of tonsillectomy History of section 4 times History of cholecystectomy (1993) History of hysterectomy (1997) with BSO Family History Brother Bleeding disorder CAD (coronary artery disease) Father CAD (coronary artery disease) Chronic kidney disease (CKD) Mother CAD (coronary artery disease) Cancer Diabetes Family/Other Cancer Other CHF (congestive heart failure) Heart disease Hypertension Denies family history of Clotting disorder Dementia Suicide Anesthesia complication Lung disease Stroke Social History Smoking and tobacco/nicotine status: former use of tobacco/nicotine Quit status (tobacco/nicotine): has quit using Year quit tobacco: 1990 Former quit date comment: smoked 20+ years Second hand smoke exposure: No Alcohol intake: never Substance/Drug Use: never Adopted: No Caregiver/support person: Yes Lives independently: No Household members: children and other Details: Son, sometimes grandson Housing: House Marital status: Single service: No Current occupational status: disabled Do you think of yourself as: Straight/Heterosexual Current gender identity: Female Vitals/I&O/Wt Last Vital Signs Temp 97.9 F 12/12/23 14:04 Pulse 78 12/12/23 15:00 Resp 18 12/12/23 18:14 BP 181/93 12/12/23 15:00 Pulse Ox 100 12/12/23 18:14 O2 Del Method Nasal Cannula 12/12/23 15:00 O2 Flow Rate 2 12/12/23 15:00 Weight last 48 hrs Weight 167.829 kg Physical Exam 2 Narrative: General exam demonstrates a white female, with significant edema and no respiratory distress currently but on oxygen. HEENT: Atraumatic normocephalic. Oropharynx clear. Neck is supple no lymphadenopathy thyromegaly Cardiovascular regular rate and rhythm, heart sounds distant Lung sounds distant. No obvious crackles Abdomen is soft obese nontender. Yeast noted in intertriginous folds. Edema noted along her back. exams deferred Extremities no cyanosis clubbing. 4+ edema is noted. Skin see findings above Neuro no obvious focal deficits Urinary Catheter Management: Latex Free: Cath Placed During This Visit: yes Urinary Catheter Date of Insertion: 12/12/23 Urinary Catheter Time of Insertion: 15:39 Data 12/12/23 14:58 12/12/23 14:58 Other Labs: INR is 1.21 LFTs normal with exception of alk phos of 111 Troponin 73 with repeat of 70 TSH normal in August Urinalysis 0-4 reds 0-4 whites BNP 9694 Chest x-ray with cardiomegaly, poor film secondary to weight. Probable congestive heart failure changes by my read. EKG by my read demonstrates sinus rhythm, normal axis, right bundle. Nonspecific ST-T wave changes. Renal ultrasound July 2023 no obstruction Echo in June 2022 with poor quality, EF 50 to 55%. A&P Assessment and plan (1) Acute exacerbation of congestive heart failure: Patient presents with acute exacerbation of heart failure. Likely this is a mixed picture of acute diastolic as well as acute systolic Echocardiogram was of poor quality before and I suspect this will continue. At this point I do not see the utility of an echocardiogram Lasix 80 mg IV every 8 hours. Aiming for 3 to 5 L of diuresis per day. May need to add Zaroxolyn. Salt restriction Fluid restriction Secondary to significant leg edema with venous duplex lower extremities Check CBC, CMP, magnesium daily Qualifiers: Heart failure type: unspecified Qualified Code(s): I50.9 - Heart failure, unspecified (2) ROSEMARIE (acute kidney injury): No history of obstruction Urinalysis unrevealing Likely cardiorenal, continue to monitor renal function closely. (3) Anemia: Has been checked several times in the past and no evidence of iron deficiency Likely related to chronic kidney disease, autoimmune disease Continue to monitor (4) Type 2 diabetes mellitus with diabetic chronic kidney disease: Sliding scale insulin Continue long-acting insulin Consistent carb diet Plan Multiple other medical problems as outlined in her past medical history Full code Heparin for DVT prophylaxis Attestations 2 Medical Necessity Statement*: Will require greater than 2 midnights for evaluation and treatment of severe acute mixed heart failure in this patient with anasarca Diagnoses Acute exacerbation of congestive heart failure I50.9 Heart failure type: unspecified ROSEMARIE (acute kidney injury) N17.9 Anemia D64.9 Type 2 diabetes mellitus with stage 3 chronic kidney disease, with long-term current use of insulin E11.22 Time Spent (min) 44
--- NOTE | 2023-12-12 18:53 | USCV_ITS ---
Jennifer Novak Age: 68 Gender: F : 1955 Exam Date: 12/12/2023 22:57 Ordering Phys: Brett Raphael MD Technologist: ZENIA Exam Location: [facility] [place] Indication: BLE EDEMA. MORBID OBESITY HISTORY: BLE EDEMA. MORBID OBESITY PROCEDURES: Venous duplex imaging was performed in bilateral lower extremities. The following venous structures were evaluated: common femoral vein, profunda vein, proximal portion of the greater saphenous vein, superficial femoral vein, and the popliteal vein. In addition, the posterior tibial veins were evaluated. Serial compression, augmentation maneuvers, and spectral Doppler flow evaluation were performed, which were normal. Bilaterally, the common femoral, superficial femoral, profunda femoral, popliteal, posterior tibial, and greater saphenous veins were identified and interrogated in the standard fashion. These veins were found to be easily compressible with spontaneous blood flow. No evidence of thrombus noted. CONCLUSIONS No evidence of right lower extremity DVT. No evidence of left lower extremity DVT. Giovanny Tolliver MD (Electronically Signed) Final Date: 13 December 2023 10:00 S
[2023-12-12] MEDS: atorvastatin 40 mg Tablet 20 MG PO (19:25)
[2023-12-12] MEDS: hyDRALAzine 50 mg Tablet PO (19:25)
[2023-12-12] MEDS: metoprolol tartrate 25 mg Tablet PO (19:25)
[2023-12-12] MEDS: trazodone 100 mg Tablet PO (19:25)
[2023-12-12] MEDS: heparin 5,000 unit/mL INJ 1 mL 5000 UNIT SUBCUT (19:25)
[2023-12-12] MEDS: hydroxychloroquine 200 mg Tablet PO (20:25)
[2023-12-12 20:27] LABS: Glucose Point of Care 107 mg/dL (70-110)
[2023-12-12 20:55] LABS: Troponin 5 6HR 70.55 ng/L (0-10)
[2023-12-12 20:57] LABS: Troponin 5 6HR Delta -2.45 ng/L (0-12)
[2023-12-12] MEDS: oxyCODONE 5 mg IR Tab/Cap PO ×2 (21:11→22:24)
--- NOTE | 2023-12-12 21:17 | PC.NURSE ---
Patient requesting something for pain. She has oxycodone on her home medication list. She is also c/o severe itching. Informed Dr Scott and received orders to start home dose of oxycodone prn and to give onetime dose of vistaril 25mg PO. RBVO
[2023-12-12] MEDS: hyDROXYzine 25 mg Capsule PO (21:21)
--- NOTE | 2023-12-12 22:44 | PC.NURSE ---
Patient crying with pain to bilateral legs. Informed Dr Scott. And received onetime extra dose of oxycodone 5mg pO.
--- NOTE | 2023-12-12 22:45 | PC.NURSE ---
Patient no c/o cramping and spasms in her legs. Placed SCDs for massaging effect. Informed Dr Scott. Received order for flexeril 5mg PO TID PRN. RBVO
[2023-12-12] MEDS: cyclobenzaprine 10 mg Tablet 5 MG PO (23:07)
[2023-12-13] VITALS (63 sets, daily range): BP systolic 140–166; BP diastolic 58–87; PULSE 61–77; RESP 5–23; TEMP 36.6–37.1; O2SAT 83–100
[2023-12-13] MEDS: HYDROmorphone 1 mg/mL INJ 1 mL 0.5 MG IVP (00:12)
--- NOTE | 2023-12-13 00:17 | PC.NURSE ---
Patient continues to c/o severe pain to bilateral legs. Informed Dr Chavarria and received onetime order of Dilaudid 0.5mg IVP. Instructed patient on side effects and expectations. Patient verbalized understanding. Will continue to monitor.
[2023-12-13] MEDS: FUROsemide 10 mg/mL SDV 10mL 80 MG IVP ×3 (02:34→18:18)
[2023-12-13 03:53] LABS: Basophils # 0.1 10^3/uL (0.0-0.1); Basophils % 0.8 %; Eosinophils # 0.3 10^3/uL (0.0-0.8); Eosinophils % 4.8 %; Hematocrit 24.6 % (36-47); Lymphocytes # 0.9 10^3/uL (0.8-4.8); Lymphocytes % 13.5 %; Mean Corpuscular HGB Conc 30.1 g/dL (30-55); Mean Corpuscular Hemoglobin 28.1 pg (27-33); Mean Corpuscular Volume 93.5 fl (85-98); Mean Platelet Volume 10.7 fL (7.4-10.4); Monocytes # 0.7 10^3/uL (0.2-0.9); Monocytes % 10.6 %; Neutrophils # 4.41 10^3/uL (1.8-7.7); Nucleated Red Blood Cells % 0 %; Platelet Count 169 10^3/cmm (157-399); Red Blood Count 2.63 10^6/uL (3.85-5.65); Red Cell Distribution Width 16.4 % (12.1-15.1)
[2023-12-13 04:17] LABS: Alanine Aminotransferase 17 U/L (0-33); Albumin Level 3.5 g/dL (3.5-5.2); Alkaline Phosphatase 89 U/L (35-105); Anion Gap 14.6 (5-19); Aspartate Amino Transferase 17 U/L (0-32); Blood Urea Nitrogen 76 mg/dL (8-23); Calcium 9.5 mg/dL (8.5-10.5); Carbon Dioxide 27 mmol/L (22-29); Chloride 103 mmol/L (98-107); Globulin 2.9 g/dL (1.3-4.6); Glomerular Filtration Rate 16.9 mL/min (90-130); Glucose 101 mg/dL (65-115); Magnesium 2.8 mg/dL (1.7-2.3); Osmolality Calculated 313 mOsm/kg (285-295); Potassium 4.6 mmol/L (3.5-5.1); Sodium 140 mmol/L (136-145); Total Bilirubin 0.3 mg/dL (0.15-1.2); Total Protein 6.4 g/dL (6.6-8.7)
[2023-12-13] MEDS: heparin 5,000 unit/mL INJ 1 mL 5000 UNIT SUBCUT ×2 (06:27→22:10)
[2023-12-13 06:29] LABS: Glucose Point of Care 103 mg/dL (70-110)
[2023-12-13] MEDS: hydroxychloroquine 200 mg Tablet PO ×2 (08:34→22:11)
[2023-12-13] MEDS: fluoxetine 20 mg Capsule PO (08:35)
[2023-12-13] MEDS: hyDRALAzine 50 mg Tablet PO ×3 (08:35→22:11)
[2023-12-13] MEDS: pantoprazole DR 40 mg Tablet PO ×2 (08:35→18:18)
[2023-12-13] MEDS: amlodipine 10 mg Tablet PO (08:35)
[2023-12-13] MEDS: ferrous sulfate EC 325 mg Tablet PO (08:35)
[2023-12-13] MEDS: insulin glargine 100 units/1 mL 40 UNIT SUBCUT (08:35)
[2023-12-13] MEDS: metoprolol tartrate 25 mg Tablet PO ×2 (08:35→22:21)
[2023-12-13] MEDS: isosorbide mononitrate ER 60 mg Tablet PO (08:35)
[2023-12-13] MEDS: nystatin powder 30 gm Btl 1 APPLIC TOPICAL ×2 (08:36→19:51)
[2023-12-13] MEDS: oxyCODONE 5 mg IR Tab/Cap PO ×2 (09:16→18:39)
[2023-12-13] MEDS: cyclobenzaprine 10 mg Tablet 5 MG PO ×2 (09:39→18:39)
--- NOTE | 2023-12-13 11:20 | P.PN_ITS ---
Subjective 2 Subjective: Jennifer is seen for follow-up. She states she is still very swollen and painful all over. She reports her shortness of breath is less. Medications: Reviewed: Yes Vitals/I&O/Wt Last Vital Signs Temp 97.8 F 12/13/23 07:35 Pulse 77 12/13/23 09:01 Resp 21 H 12/13/23 09:16 BP 153/87 12/13/23 07:35 Pulse Ox 97 12/13/23 09:16 O2 Del Method Nasal Cannula 12/13/23 09:01 O2 Flow Rate 2 12/13/23 09:01 12/12/23 12/13/23 12/13/23 22:59 06:59 14:59 Intake Total 126.833 / 126.833 200 / 200 Output Total 1300 / 1300 Balance 126.833 / 126.833 -1300 / -1173.167 200 / 200 Weight last 48 hrs Weight 163.565 kg Weight 163.475 kg Weight 167.829 kg Physical Exam 2 Narrative: General exam demonstrates no distress, off oxygen, no difficulty breathing Neck is supple no lymphadenopathy thyromegaly Cardiovascular regular rate and rhythm, heart sounds distant Lung sounds distant. No obvious crackles Abdomen is soft obese nontender. Yeast noted in intertriginous folds. Edema noted along her back. Extremities no cyanosis clubbing. 4+ edema is noted. Urinary Catheter Management: Latex Free: Cath Placed During This Visit: yes Reason for Continuing Indwelling Catheter: Accurate Measurement of Urinary Output in Critically Ill Patients Urinary Catheter Date of Insertion: 12/12/23 Urinary Catheter Time of Insertion: 15:39 Data 12/13/23 03:44 12/13/23 03:44 A&P Assessment and plan (1) Acute exacerbation of congestive heart failure: Patient presents with acute exacerbation of heart failure. Likely this is a mixed picture of acute diastolic as well as acute systolic Echocardiogram was of poor quality before and I suspect this will continue. At this point I do not see the utility of an echocardiogram Continue Lasix 80 mg IV every 8 hours. Aiming for 3 to 5 L of diuresis per day. She is down a liter since last night Salt restriction Fluid restriction Secondary to significant leg edema with venous duplex lower extremities Check CBC, CMP, magnesium daily Cardiology consultation, high risk for readmission. Qualifiers: Heart failure type: unspecified Qualified Code(s): I50.9 - Heart failure, unspecified (2) ROSEMARIE (acute kidney injury): No history of obstruction Urinalysis unrevealing Likely cardiorenal, continue to monitor renal function closely. Creatinine unchanged (3) Anemia: Has been checked several times in the past and no evidence of iron deficiency Likely related to chronic kidney disease, autoimmune disease Continue to monitor. Hemoglobin slightly less but no evidence of overt bleeding (4) Type 2 diabetes mellitus with diabetic chronic kidney disease: Sliding scale insulin Continue long-acting insulin Consistent carb diet Plan Multiple other medical problems as outlined in her past medical history Full code Heparin for DVT prophylaxis Attestations 2 Medical Necessity Statement*: Needs continued hospitalization for further diuresis secondary to acute heart failure Diagnoses Acute exacerbation of congestive heart failure I50.9 Heart failure type: unspecified ROSEMARIE (acute kidney injury) N17.9 Anemia D64.9 Type 2 diabetes mellitus with stage 3 chronic kidney disease, with long-term current use of insulin E11.22 Time Spent (min) 26
[2023-12-13 11:54] LABS: Glucose Point of Care 105 mg/dL (70-110)
--- NOTE | 2023-12-13 12:01 | PC.NURSE ---
Provider is notified that patient is having extra pain in her legs.
[2023-12-13 16:58] LABS: Glucose Point of Care 146 mg/dL (70-110)
--- NOTE | 2023-12-13 17:33 | P.CONIM_ITS ---
Providers/Reason For Consult 2 Consulting Physician/Specialty*: KIET Aquino MD/cardiology Reason for Consult*: Patient with decompensated heart failure/generalized edema Requesting Physician: Dr. Raphael Attending Physician: Brett Raphael MD Primary Care Provider: PARAG Mensah History of Present Illness History of Present Illness Jennifer Novak is a 68 year old female with multiple medical problems, is presenting with progressive shortness of breath and worsening swelling of the extremities sustained to the abdomen. Patient has a history of chronic heart failure with a preserved LV ejection fraction and chronic kidney disease. Cardiology consult is requested for management of the heart failure This patient is known to have chronic diastolic heart failure with intermittent exacerbation. She had multiple hospital admissions and ER visits with a decompensated heart failure. In July of last year, she was admitted to this hospital with features of acute kidney injury, diastolic heart failure and hypoxic respiratory failure. Because of worsening kidney function, nephrology was consulted and a temporary dialysis catheter was placed in the femoral vein. Apparently t the procedure was complicated with massive bleeding requiring blood transfusion. Subsequently she was transferred to the [facility] in [place]. The patient spent almost a month there in the hospital. the details of this hospital admission is not available at this time. She was discharged home on 2 L of oxygen by nasal cannula. She was readmitted to this hospital within few days after the discharge with worsening shortness of breath. She was treated with diuretics and other symptomatic measures and was discharged home. Initially she was treated with a Lasix and then was switched to Bumex. According to the patient, she might have lost around 60 pounds during the hospital admission and that she gradually gained back most of this since the discharge. She was finding it difficult to get up and move around because of the swelling in the legs and the shortness of breath. She also felt swelling of the abdominal wall and heaviness in the abdomen. 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 She currently denies any chest pain. No fever or chills. She may have a dry cough. No palpitation, dizziness or syncopal episode. No abdominal pain or dysuria. On 09/18/18 she underwent coronary angiography secondary to chest pain and abnormal nuclear imaging stress test. She was found to have no significant disease in the left main, LAD, circumflex or RCA. One of the diagonal branches of the LAD was found to have a fistulous communication with the LV. LVEF was 55%, LVEDP was 14 mmHg. Review of Systems 2 Narrative: CONSTITUTIONAL: No fever or chills. EYES: No blurring of vision or other visual disturbances lately. ENT: No hoarseness of voice, auditory disturbances or sore throat. CARDIOVASCULAR: As mentioned above. RESPIRATORY: COPD with intermittent exacerbation GASTROINTESTINAL: History of gastroparesis, irritable bowel syndrome, GERD and? GI bleed GENITOURINARY: No dysuria or hematuria. INTEGUMENTARY: No skin rashes or history of skin cancer. NEURO: No transient ischemic attacks or amaurosis. PSYCHIATRIC: Anxiety/depressive illness HEMATOLOGIC: Chronic anemia ENDOCRINE: No history of polyuria or polydipsia. MUSCULOSKELETAL: Fibromyalgia, seronegative rheumatoid arthritis ALLERGY/IMMUNOLOGY: As mentioned above. Medications/Allergies Home Medications Medication Instructions Recorded Confirmed Last Taken Type cholecalciferol (vitamin D3) 125 125 mcg PO DAILY 05/14/21 12/12/23 12/12/23 History mcg (5,000 unit) tablet (Vitamin D3) acetaminophen 325 mg tablet 325 - 650 mg PO Q6H PRN Pain 12/13/21 12/12/23 Unknown History cyanocobalamin (vitamin B-12) 50 50 mcg PO DAILY ##0 04/12/22 12/12/23 12/12/23 History mcg tablet (Vitamin B-12) blood-glucose meter (GoalbookTouch #1 ea 09/29/22 12/12/23 Unknown Rx Ultra2 Meter kit) diabetic shoes with inserts #1 ea 02/25/23 12/12/23 Unknown Rx isosorbide mononitrate 60 mg 60 mg PO DAILY #90 tabs 04/13/23 12/12/23 12/12/23 Rx tablet,extended release 24 hr hydroxychloroquine 200 mg tablet 200 mg PO BID #180 tabs 05/02/23 12/12/23 12/12/23 Rx triamcinolone acetonide 0.1 % 1 applic topical DAILY PRN itching 05/10/23 12/12/23 12/11/23 Rx topical ointment #30 grams lancets 33 gauge (GoalbookTouch Delica #100 ea 05/13/23 12/12/23 Unknown Rx Lancets) lancing device with lancets kit #1 ea 05/13/23 12/12/23 Unknown Rx ([employer] Delica Plus Lancing Device kit) fluoxetine 20 mg capsule 20 mg PO DAILY 08/13/23 12/12/23 12/12/23 History fluoxetine 40 mg capsule 40 mg PO BEDTIME 08/13/23 12/12/23 12/11/23 History magnesium oxide 400 mg PO DAILY PRN Muscle Spasm 08/13/23 12/12/23 12/12/23 History oxycodone 5 mg tablet 2.5 - 5 mg PO Q8H PRN Pain 09/08/23 12/12/23 12/12/23 History rosuvastatin 10 mg tablet 10 mg PO QPM 09/08/23 12/12/23 12/11/23 History albuterol sulfate 90 mcg/actuation 2 puff inhalation Q4H PRN 09/15/23 12/12/23 08/13/23 20:00 Rx aerosol inhaler (ProAir HFA) shortness of breath or wheezing #8.5 grams amlodipine 10 mg tablet 10 mg PO DAILY #60 tabs 09/15/23 12/12/23 12/12/23 Rx bumetanide 2 mg tablet 2 mg PO BID #90 tabs 09/15/23 12/12/23 12/12/23 08:00 Rx hydralazine 25 mg tablet 50 mg (2 x 25 mg) PO TID #90 tabs 09/15/23 12/12/23 12/12/23 Rx metoprolol tartrate 25 mg tablet 25 mg PO BID #60 tabs 09/15/23 12/12/23 12/12/23 Rx dicyclomine 20 mg tablet 20 mg PO QID PRN stooling 10/12/23 12/12/23 12/12/23 History insulin degludec 200 unit/mL (3 80 unit (0.4 mL) SUBCUT DAILY #18 10/12/23 12/12/23 12/12/23 Rx mL) subcutaneous pen (Tresiba mL FlexTouch U-200 insulin) pantoprazole 40 mg tablet,delayed 40 mg PO DAILY 10/12/23 12/12/23 12/12/23 History release nystatin 100,000 unit/gram topical 1 applic topical BID #15 grams 10/26/23 12/12/23 12/12/23 Rx powder (Nystop) hydroxyzine pamoate 50 mg capsule 50 mg PO .at bedtime #90 caps 10/28/23 12/12/23 12/11/23 Rx Bariatric emy lift #1 ea 11/04/23 12/12/23 Unknown Rx blood sugar diagnostic (OneTouch #100 ea 11/21/23 12/12/23 Unknown Rx Ultra Test strips) pen needle, diabetic 31 gauge x #200 ea 11/21/23 12/12/23 Unknown Rx 5/16 (TechLITE Pen Needle) potassium chloride 10 mEq 10 meq PO BID #60 tabs 11/21/23 12/12/23 12/12/23 Rx tablet,extended release insulin lispro 100 unit/mL See Rx Instructions SUBCUT 11/25/23 12/12/23 12/12/23 Rx subcutaneous pen (Humalog KwikPen .COMPLEX #15 mL (U-100) Insulin) nitroglycerin 0.4 mg sublingual 0.4 mg sublingual Q5M PRN Chest 11/25/23 12/12/23 Unknown Rx tablet (Nitrostat) Pain #50 tabs ferrous sulfate 325 mg (65 mg 325 mg PO DAILY #30 tabs 11/30/23 12/12/23 12/12/23 08:00 Rx iron) tablet,delayed release Allergies Allergy/AdvReac Type Severity Reaction Status Date / Time acetaminophen [From [place]] Allergy Unknown Verified 12/12/23 14:09 bacitracin Allergy ADR-Nausea Verified 12/12/23 14:09 codeine Allergy ADR-Nausea Verified 12/12/23 14:09 hydrocodone [From [place]] Allergy Unknown Verified 12/12/23 14:09 Latex, Natural Rubber Allergy Unknown Verified 12/12/23 14:09 morphine Allergy ADR-Itching Verified 12/12/23 14:09 neomycin Allergy ALGY-Rash Verified 12/12/23 14:09 [From Neosporin ([id number])] polymyxin B Allergy ALGY-Rash Verified 12/12/23 14:09 [From Neosporin ([id number])] Sulfa (Sulfonamide Allergy ADR-Nausea Verified 12/12/23 14:09 Antibiotics) sulfamethoxazole Allergy Unknown Verified 12/12/23 14:09 [From Bactrim] trimethoprim [From Bactrim] Allergy Unknown Verified 12/12/23 14:09 spironolactone AdvReac Severe temporary Uncoded 12/12/23 14:09 blindness Current Medications Generic Name Dose Route Start Last Admin Trade Name Freq PRN Reason Stop Dose Admin Amlodipine Besylate 10 mg 12/13/23 09:00 12/13/23 08:35 Amlodipine 10 Mg Tablet PO 10 mg DAILY HERMINIO Administration Atorvastatin Calcium 20 mg 12/12/23 21:00 12/12/23 19:25 Atorvastatin 40 Mg Tablet PO 20 mg BEDTIME HERMINIO Administration Cyclobenzaprine HCl 5 mg 12/12/23 22:45 12/13/23 09:39 Cyclobenzaprine 10 Mg Tablet PO 5 mg TID PRN Administration MUSCLE SPASMS Ferrous Sulfate 325 mg 12/13/23 09:00 12/13/23 08:35 Ferrous Sulfate Ec 325 Mg Tablet PO 325 mg DAILY HERMINIO Administration Fluoxetine HCl 20 mg 12/13/23 09:00 12/13/23 08:35 Fluoxetine 20 Mg Capsule PO 20 mg DAILY HERMINIO Administration Furosemide 80 mg 12/13/23 03:00 12/13/23 11:18 Furosemide 10 Mg/Ml Sdv 10ml IVP 80 mg Q8H HERMINIO Administration Heparin Sodium (Porcine) 5,000 unit 12/12/23 19:00 12/13/23 06:27 Heparin 5,000 Unit/Ml Inj 1 Ml SUBCUT 5,000 unit Q12H HERMINIO Administration Hydralazine HCl 50 mg 12/12/23 21:00 12/13/23 15:22 Hydralazine 50 Mg Tablet PO 50 mg TID HERMINIO Administration Hydroxychloroquine Sulfate 200 mg 12/12/23 20:00 12/13/23 08:34 Hydroxychloroquine 200 Mg Tablet PO 12/16/23 08:01 200 mg Q12H HERMINIO Administration Insulin Human Lispro 0 unit 12/12/23 21:00 12/13/23 12:20 Insulin Lispro 100 Unit/1 Ml SUBCUT Not Given WM&BEDTIME HERMINIO Protocol Isosorbide Mononitrate 60 mg 12/13/23 09:00 12/13/23 08:35 Isosorbide Mononitrate Er 60 Mg Tablet PO 60 mg DAILY HERMINIO Administration Metoprolol Tartrate 25 mg 12/12/23 21:00 12/13/23 08:35 Metoprolol Tartrate 25 Mg Tablet PO 25 mg BID@0900,2100 HERMINIO Administration Nystatin 1 applic 12/13/23 09:00 12/13/23 08:36 Nystatin Powder 30 Gm Btl TOPICAL 1 applic BID HERMINIO Administration Oxycodone HCl 5 mg 12/12/23 20:57 12/13/23 09:16 Oxycodone 5 Mg Ir Tab/Cap PO 5 mg Q8H PRN Administration MODERATE PAIN Pantoprazole Sodium 40 mg 12/13/23 09:00 12/13/23 08:[address] 40 Mg Tablet PO 40 mg BID HERMINIO Administration Trazodone HCl 100 mg 12/12/23 21:00 12/12/23 19:25 Trazodone 100 Mg Tablet PO 100 mg BEDTIME HERMINIO Administration PFSH Acute 2 PFSH: Medical History (Updated 12/13/23 @ 17:57 by Sammy Aquino MD) Type 2 diabetes mellitus with diabetic chronic kidney disease Gastric ulcer H. pylori ruled out at [facility]-acquired pneumonia Acute exacerbation of CHF (congestive heart failure) Acute on chronic renal failure Diabetic gastroparesis Hypoxia Anemia Positive GIFTY (antinuclear antibody) Frequent falls Muscle spasm High risk medication use Seronegative rheumatoid arthritis of both hands Diabetic foot Hip pain, left Benign hypertension Atypical chest pain IgM monoclonal gammopathy of uncertain significance Chronic diastolic heart failure Intermittent atrial fibrillation Chest pain Edema CKD (chronic kidney disease) stage 3, GFR 30-59 ml/min Urinary disorder Anxiety Pneumonitis Left lumbar radiculopathy Back pain Lymph edema Fracture of distal end of fibula Syncope and collapse Essential tremor Mobility impaired IBS (irritable bowel syndrome) Inflammatory arthritis Chronic back pain Chronic major depressive disorder Peripheral neuropathy Polyarthralgia Edema, peripheral Noncompliance with diabetes treatment Not consistent with diet Near syncope Monoclonal gammopathy Major depression Diabetic neuropathy associated with type 2 diabetes mellitus Severe obstructive sleep apnea Mild cognitive impairment with memory loss Dietary noncompliance Atrial flutter Coronary artery fistula Chronic obstructive pulmonary disease, unspecified Obesity CKD (chronic kidney disease) Benign hypertension Fibromyalgia Diverticulosis Environmental and seasonal allergies Situational anxiety Vitamin D deficiency Surgical History History of left heart catheterization (2017) No significant obstructive coronary disease Hx of esophagogastroduodenoscopy Hx of colonoscopy History of tonsillectomy History of section 4 times History of cholecystectomy (1993) History of hysterectomy (1997) with BSO Family History Brother Bleeding disorder CAD (coronary artery disease) Father CAD (coronary artery disease) Chronic kidney disease (CKD) Mother CAD (coronary artery disease) Cancer Diabetes Family/Other Cancer Other CHF (congestive heart failure) Heart disease Hypertension Denies family history of Clotting disorder Dementia Suicide Anesthesia complication Lung disease Stroke Social History Smoking and tobacco/nicotine status: former use of tobacco/nicotine Quit status (tobacco/nicotine): has quit using Year quit tobacco: 1990 Former quit date comment: smoked 20+ years Second hand smoke exposure: No Alcohol intake: never Substance/Drug Use: never Adopted: No Caregiver/support person: Yes Lives independently: No Household members: children and other Details: Son, sometimes grandson Housing: House Marital status: Single service: No Current occupational status: disabled Do you think of yourself as: Straight/Heterosexual Current gender identity: Female Vitals/I&O/Wt Last Vital Signs Temp 98.2 F 12/13/23 16:45 Pulse 64 12/13/23 16:45 Resp 12 12/13/23 16:45 BP 140/58 12/13/23 16:45 Pulse Ox 98 12/13/23 16:45 O2 Del Method Nasal Cannula 12/13/23 16:45 O2 Flow Rate 2 12/13/23 09:01 12/13/23 12/13/23 12/13/23 06:59 14:59 22:59 Intake Total 440 / 440 Output Total 1300 / 1300 250 / 250 150 / 400 Balance -1300 / -1173.167 190 / 190 -150 / 40 Weight last 48 hrs Weight 360 lb 9.6 oz Weight 360 lb 6.4 oz Weight 370 lb Physical Exam 2 Narrative: GENERAL: The patient is alert and oriented times three.Morbidly obese. Somewhat tachypneic HEENT: No significant pallor, icterus or lymphadenopathy.Oral cavity: There are no mucous membrane lesions. NECK: Trachea appears to be central. No masses noted. No JVD or thyromegaly appreciated. RESPIRATORY: Chest is symmetrical. No intercostals muscle retraction or any accessory muscle activation. There is no chest wall tenderness. Breath sounds are heard bilaterally. Occasional expiratory wheezing no evidence of any consolidation. BREASTS: Deferred. HEART: The heart sounds are normal. No S3 or S4. No significant murmurs. No pericardial rub ABDOMEN: Abdomen is obese. Marked edema of the abdominal wall especially in the lower abdomen : Deferred. RECTAL: Deferred. LYMPHATIC: No lymphadenopathy noted in the neck. EXTREMITIES: 3+ edema both lower extremities. MUSCULOSKELETAL: No acute joint deformities or swelling SKIN: Erythematous and indurated skin of the lower abdomen NEUROPSYCHIATRIC: The patient is alert and oriented x3. Appears to be in a good mood. No tremors or rigidity noted. Urinary Catheter Management: Latex Free: Cath Placed During This Visit: yes Reason for Continuing Indwelling Catheter: Accurate Measurement of Urinary Output in Critically Ill Patients Urinary Catheter Date of Insertion: 12/12/23 Urinary Catheter Time of Insertion: 15:39 Data 12/14/23 03:31 12/14/23 03:31 Other Labs: Laboratory Last Values WBC 6.30 10^3/uL (3.29-11.43) 12/13/23 03:44 RBC 2.63 10^6/uL (3.85-5.65) L 12/13/23 03:44 Hgb 7.40 g/dL (11.27-16.99) L 12/13/23 03:44 Hct 24.6 % (36-47) L 12/13/23 03:44 MCV 93.5 fl (85-98) 12/13/23 03:44 MCH 28.1 pg (27-33) 12/13/23 03:44 MCHC 30.1 g/dL (30-55) 12/13/23 03:44 RDW 16.4 % (12.1-15.1) H 12/13/23 03:44 Plt Count 169 10^3/cmm (157-399) 12/13/23 03:44 MPV 10.7 fL (7.4-10.4) H 12/13/23 03:44 Neut % (Auto) 70.0 % 12/13/23 03:44 Lymph % (Auto) 13.5 % 12/13/23 03:44 [place] % (Auto) 10.6 % 12/13/23 03:44 Eos % (Auto) 4.8 % 12/13/23 03:44 Baso % (Auto) 0.8 % 12/13/23 03:44 Neut # (Auto) 4.41 10^3/uL (1.8-7.7) 12/13/23 03:44 Lymph # (Auto) 0.9 10^3/uL (0.8-4.8) 12/13/23 03:44 [place] # (Auto) 0.7 10^3/uL (0.2-0.9) 12/13/23 03:44 Eos # (Auto) 0.3 10^3/uL (0.0-0.8) 12/13/23 03:44 Baso # (Auto) 0.1 10^3/uL (0.0-0.1) 12/13/23 03:44 Nucleated RBC % (auto) 0 % 12/13/23 03:44 Nucleated RBCs # 0.0 /100WBC 12/13/23 03:44 PT 15.70 SECONDS (12.1-14.9) H 12/12/23 14:58 INR 1.21 (0.8-1.2) H 12/12/23 14:58 Sodium 140 mmol/L (136-145) 12/13/23 03:44 Potassium 4.6 mmol/L (3.5-5.1) 12/13/23 03:44 Chloride 103 mmol/L (98-107) 12/13/23 03:44 Carbon Dioxide 27 mmol/L (22-29) 12/13/23 03:44 Anion Gap 14.6 (5-19) 12/13/23 03:44 BUN 76 mg/dL (8-23) H 12/13/23 03:44 Creatinine 2.8 mg/dL (0.5-0.9) H 12/13/23 03:44 GFR Calculation 16.9 mL/min (90-130) L 12/13/23 03:44 Glucose 101 mg/dL (65-115) 12/13/23 03:44 POC Glucose 146 mg/dL (70-110) H 12/13/23 16:45 Calculated Osmolality 313 mOsm/kg (285-295) H 12/13/23 03:44 Calcium 9.5 mg/dL (8.5-10.5) 12/13/23 03:44 Magnesium 2.8 mg/dL (1.7-2.3) H 12/13/23 03:44 Total Bilirubin 0.3 mg/dL (0.15-1.2) 12/13/23 03:44 AST 17 U/L (0-32) 12/13/23 03:44 ALT 17 U/L (0-33) 12/13/23 03:44 Alkaline Phosphatase 89 U/L (35-105) 12/13/23 03:44 Troponin T Baseline 73 ng/L (0-10) H 12/12/23 14:58 Troponin T 120 Minute 70.53 ng/L (0-10) H 12/12/23 16:53 Delta Troponin T -2.47 ABS# (0-10) L 12/12/23 16:53 Troponin T Hi Sens 6Hr 70.55 ng/L (0-10) H 12/12/23 20:29 Troponin T Hi Sens 6Hr Delta -2.45 ng/L (0-12) L 12/12/23 20:29 NT-Pro-B Natriuret Pep 9694 pg/mL (0-125) H 12/12/23 14:58 Total Protein 6.4 g/dL (6.6-8.7) L 12/13/23 03:44 Albumin 3.5 g/dL (3.5-5.2) 12/13/23 03:44 Globulin 2.9 g/dL (1.3-4.6) 12/13/23 03:44 Urine Color Yellow (Yellow) 12/12/23 15:33 Urine Appearance Clear (CLEAR) 12/12/23 15:33 Urine pH 5 (5-7) 12/12/23 15:33 Ur Specific [place] 1.020 (1.005-1.030) 12/12/23 15:33 Urine Protein 1+ (Negative) H 12/12/23 15:33 Urine Glucose (UA) Norm (Normal) 12/12/23 15:33 Urine Ketones Negative (Negative) 12/12/23 15:33 Urine Blood Neg (Negative) 12/12/23 15:33 Urine Nitrate Negative (Negative) 12/12/23 15:33 Urine Bilirubin Neg (Negative) 12/12/23 15:33 Urine Urobilinogen Norm mg/dL (Negative) 12/12/23 15:33 Ur Leukocyte Esterase Negative (Negative) 12/12/23 15:33 Urine RBC None /hpf (0-2) 12/12/23 15:33 Urine WBC 0-4 /hpf (0-5) H 12/12/23 15:33 Ur Squamous Epith Cells 0-4 /hpf (0-5) H 12/12/23 15:33 Amorphous Sediment Not Reportable 12/12/23 15:33 Urine Bacteria Trace /hpf (NONE) 12/12/23 15:33 Hyaline Casts 0-4 /lpf H 12/12/23 15:33 EKG 1: My Interpretation: Normal sinus rhythm with a first-degree AV block. Right bundle branch block pattern. Left anterior fascicular block. Other data: chest x-ray showed cardiomegaly, pulmonary venous congestion. Possible small pleural effusion Venous duplex to the lower extremities reveal no evidence of pulmonary embolism A&P Assessment and plan (1) Generalized edema: Her worsening kidney function coupled with the diastolic heart failure could be a major contributing factor. We may try higher dose of Lasix. May require nephrology input for further management. (2) Acute on chronic diastolic (congestive) heart failure: As mentioned above. Patient is started on IV Lasix 80 mg every 8 hours. Based on the clinical response, further recommendations will be made. Consider limited 2D echocardiogram to evaluate LV function (3) Acute kidney injury superimposed on chronic kidney disease: Will be closely monitoring the kidney function. Nephrology consult be appropriate for further management. (4) Chronic obstructive pulmonary disease, unspecified: May continue with the bronchodilator treatment. 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 Plan Based on the clinical progress, further recommendations will be made. Thank you for the opportunity to evaluate this patient and make these recommendations Consult Attestations 2 Medical Necessity Statement: Patient requires continued hospital stay for close monitoring and further management Coding Level of Care Code 19132 Diagnoses Generalized edema R60.1 Acute on chronic diastolic (congestive) heart failure I50.33 Acute kidney injury superimposed on chronic kidney disease N17.9; N18.9 Chronic obstructive pulmonary disease, unspecified COPD type J44.9 COPD type: unspecified COPD Type 2 diabetes mellitus with stage 4 chronic kidney disease, with long-term current use of insulin E11.22; N18.4; Z79.4 Chronic kidney disease stage: stage 4 (severe) Diabetes mellitus residential insulin use: with residential use Benign hypertension I10
[2023-12-13] MEDS: insulin lispro 100 unit/1 mL SUBCUT (18:17)
[2023-12-13] MEDS: hyDROXYzine 25 mg Capsule PO (18:38)
[2023-12-13] MEDS: atorvastatin 40 mg Tablet 20 MG PO (22:10)
[2023-12-13] MEDS: trazodone 100 mg Tablet PO (22:10)
[2023-12-13 22:47] LABS: Glucose Point of Care 123 mg/dL (70-110)
[2023-12-14] VITALS (9 sets, daily range): BP systolic 122–150; BP diastolic 51–67; PULSE 61–87; RESP 16–21; TEMP 36.5–36.7; O2SAT 94–99; BMI 64.7
[2023-12-14] MEDS: FUROsemide 10 mg/mL SDV 10mL 80 MG IVP ×2 (03:19→10:44)
[2023-12-14 04:16] LABS: Basophils % 0.7 %; Eosinophils # 0.3 10^3/uL (0.0-0.8); Eosinophils % 4.6 %; Hematocrit 24.5 % (36-47); Lymphocytes # 0.8 10^3/uL (0.8-4.8); Lymphocytes % 13.7 %; Mean Corpuscular HGB Conc 30.2 g/dL (30-55); Mean Corpuscular Hemoglobin 28.4 pg (27-33); Mean Corpuscular Volume 93.9 fl (85-98); Mean Platelet Volume 10.7 fL (7.4-10.4); Monocytes # 0.7 10^3/uL (0.2-0.9); Monocytes % 11.6 %; Neutrophils # 4.04 10^3/uL (1.8-7.7); Neutrophils % 69.1 %; Nucleated Red Blood Cells % 0 %; Platelet Count 164 10^3/cmm (157-399); Red Blood Count 2.61 10^6/uL (3.85-5.65); Red Cell Distribution Width 16.4 % (12.1-15.1); White Blood Count 5.85 10^3/uL (3.29-11.43)
[2023-12-14 04:41] LABS: Anion Gap 14.7 (5-19); Blood Urea Nitrogen 74 mg/dL (8-23); Calcium 9.3 mg/dL (8.5-10.5); Carbon Dioxide 27 mmol/L (22-29); Chloride 103 mmol/L (98-107); Glomerular Filtration Rate 15.6 mL/min (90-130); Glucose 96 mg/dL (65-115); Magnesium 2.9 mg/dL (1.7-2.3); Osmolality Calculated 312 mOsm/kg (285-295); Potassium 4.7 mmol/L (3.5-5.1); Sodium 140 mmol/L (136-145)
[2023-12-14 06:55] LABS: Glucose Point of Care 117 mg/dL (70-110)
--- NOTE | 2023-12-14 07:29 | PM.PN ---
Documented by User: edmond Martinez 12/14/23 07:42 Subjective Subjective: Patient was evaluated this morning while lying in bed on 2L/NC. Patient reports that she still having some leg cramping and some leg pain requiring muscle relaxers and pain medication. States that this is improving her pain though pain is still present. Reports that her shortness of breath upon admission has significantly improved. She denies any chest pain, fever, and chills. Reports that she would like to get up and walk around today. Does report some abdominal pain but states more feeling abdominal tightness rather than cramping. No other complaints at this time. Medications: Reviewed: Yes Vitals/I&O/Wt Last Vital Signs Temp 97.9 F 12/14/23 00:20 Pulse 72 12/14/23 05:16 Resp 16 12/14/23 00:20 BP 140/54 12/14/23 05:16 Pulse Ox 98 12/14/23 05:16 O2 Del Method Nasal Cannula 12/13/23 19:54 O2 Flow Rate 2 12/13/23 19:54 12/13/23 12/14/23 12/14/23 22:59 06:59 14:59 Intake Total 240 / 680 Output Total 400 / 650 250 / 900 Balance -400 / -210 -10 / -220 Weight last 48 hrs Weight 165.675 kg Weight 163.565 kg Weight 163.475 kg Weight 167.829 kg Physical Exam Narrative: General: Alert, no distress, 2L/NC, obese Neck is supple no lymphadenopathy thyromegaly Cardiovascular regular rate and rhythm, heart sounds distant Lung sounds distant. Clear to auscultation, no crackles. Abdomen is soft obese nontender on palpation. Edema noted along her back anterior abdomen. Extremities no cyanosis clubbing. 4+ edema is noted. Urinary Catheter Management: Latex Free: Cath Placed During This Visit: yes Reason for Continuing Indwelling Catheter: Accurate Measurement of Urinary Output in Critically Ill Patients Urinary Catheter Date of Insertion: 12/12/23 Urinary Catheter Time of Insertion: 15:39 Data 12/14/23 03:31 12/14/23 03:31 Other Labs: RBC 2.61, Hgb 7.4, HCT 24.5, BUN 74, creatinine 3.0, magnesium 2.9 A&P Assessment and plan (1) Acute exacerbation of congestive heart failure: Patient still exhibits poor diuresis with Lasix regimen. Still likely due to acute diastolic versus systolic CHF. Cardiology consultation. Recommendations appreciated. Previous echocardiogram that was performed in 2021 displayed poor quality and suspect this will be the same outcome. Will attempt new echocardiogram today. Continue Lasix 80 mg IV every 8 hours. Continue to aim for 3-5 L of diuresis per day.?1393 output since admission. Salt restriction Fluid restriction CBC, CMP, magnesium daily Bilateral venous duplex revealed no DVT present. Qualifiers: Heart failure type: unspecified Qualified Code(s): I50.9 - Heart failure, unspecified (2) ROSEMARIE (acute kidney injury): Kidney function this a.m. remained unchanged. Will attempt Zaroxylyn 5mg x1 now today. Nephrology consultation. Likely still cardiorenal, continue to monitor renal function closely. (3) Anemia: Unchanged from yesterday. Likely related to chronic kidney disease, autoimmune disease Continue to monitor. (4) Type 2 diabetes mellitus with diabetic chronic kidney disease: Sliding scale insulin Continue long-acting insulin Consistent carb diet Qualifiers: Chronic kidney disease stage: stage 4 (severe) Diabetes mellitus intermediate insulin use: with intermodal customer service use Qualified Code(s): E11.22 - Type 2 diabetes mellitus with diabetic chronic kidney disease; N18.4 - Chronic kidney disease, stage 4 (severe); Z79.4 - assisted (current) use of insulin Plan Plan as stated above. Will add nephrology consultation for further evaluation. Will administer one-time dose of Zaroxolyn for further diuresis. PT/OT eval and treat. Full code Heparin for DVT prophylaxis Attestations Medical Necessity Statement*: Needs continued hospitalization for further diuresis secondary to acute heart failure. Coding Level of Care Code 84131 Diagnoses Acute exacerbation of congestive heart failure I50.9 Heart failure type: unspecified ROSEMARIE (acute kidney injury) N17.9 Anemia D64.9 Type 2 diabetes mellitus with stage 4 chronic kidney disease, with long-term current use of insulin E11.22; N18.4; Z79.4 Chronic kidney disease stage: stage 4 (severe) Diabetes mellitus intermodal customer service insulin use: with intermodal customer service use Time Spent (min) 26 Documented by User: Brett Raphael MD 12/14/23 08:42 Physical Exam Urinary Catheter Management: Latex Free: Cath Placed During This Visit: yes Data 12/14/23 03:31 12/14/23 03:31 A&P Assessment and plan (1) Acute exacerbation of congestive heart failure: Patient still exhibits poor diuresis with Lasix regimen. Still likely due to acute diastolic versus systolic CHF. Cardiology consultation. Recommendations appreciated. Previous echocardiogram that was performed in 2021 displayed poor quality and suspect this will be the same outcome. Will attempt new echocardiogram today. Continue Lasix 80 mg IV every 8 hours. Continue to aim for 3-5 L of diuresis per day.?1393 output since admission. Salt restriction Fluid restriction CBC, CMP, magnesium daily Bilateral venous duplex revealed no DVT present. Zaroxolyn 5 mg x 1 Qualifiers: Heart failure type: unspecified Qualified Code(s): I50.9 - Heart failure, unspecified (2) ROSEMARIE (acute kidney injury): (3) Anemia: Unchanged from yesterday. Likely related to chronic kidney disease, autoimmune disease. Reduce Plaquenil slightly. Continue to monitor. Consider transfusion if becomes symptomatic. At this point I do not want to overload further from a fluid standpoint. Hemoglobin may go up with diuresis. (4) Type 2 diabetes mellitus with diabetic chronic kidney disease: Qualifiers: Chronic kidney disease stage: stage 4 (severe) Diabetes mellitus intermodal customer service insulin use: with intermediate use Qualified Code(s): E11.22 - Type 2 diabetes mellitus with diabetic chronic kidney disease; N18.4 - Chronic kidney disease, stage 4 (severe); Z79.4 - assisted (current) use of insulin Diagnoses Acute exacerbation of congestive heart failure I50.9 Heart failure type: unspecified ROSEMARIE (acute kidney injury) N17.9 Anemia D64.9 Type 2 diabetes mellitus with stage 4 chronic kidney disease, with long-term current use of insulin E11.22; N18.4; Z79.4 Chronic kidney disease stage: stage 4 (severe) Diabetes mellitus intermodal customer service insulin use: with intermodal customer service use Time Spent (min) 26
[2023-12-14] MEDS: fluoxetine 20 mg Capsule PO (08:21)
[2023-12-14] MEDS: heparin 5,000 unit/mL INJ 1 mL 5000 UNIT SUBCUT ×2 (08:21→18:12)
[2023-12-14] MEDS: pantoprazole DR 40 mg Tablet PO ×2 (08:21→18:12)
[2023-12-14] MEDS: insulin glargine 100 units/1 mL 30 UNIT SUBCUT (08:21)
[2023-12-14] MEDS: hydroxychloroquine 200 mg Tablet PO ×2 (08:21→10:44)
[2023-12-14] MEDS: hyDRALAzine 50 mg Tablet PO ×3 (08:22→21:13)
[2023-12-14] MEDS: metOLazone 5 MG Tablet PO (08:22)
[2023-12-14] MEDS: HYDROmorphone 1 mg/mL INJ 1 mL 0.5 MG IVP ×3 (08:22→21:33)
[2023-12-14] MEDS: ferrous sulfate EC 325 mg Tablet PO (08:22)
[2023-12-14] MEDS: isosorbide mononitrate ER 60 mg Tablet PO (08:22)
[2023-12-14] MEDS: amlodipine 10 mg Tablet PO (08:22)
--- NOTE | 2023-12-14 08:34 | USCV_ITS ---
Jennifer Novak Age: 68 Gender: F : 1955 Exam Date: 12/14/2023 08:59 Ordering Phys: Brett Raphael MD Technologist: CT Exam Location: [facility] [place] Indication: chf BP: 145 / 74 HR: 60 Rhythm: Sinus Technical Quality: Poor because of body habitus MEASUREMENTS (Male / Female) Normal Values 2D ECHO LVOT Diameter 1.9 cm LV Ejection Fraction MOD 2C 39.7 % LV Ejection Fraction 2C AL 40.8 % LA Diameter 4.3 cm Aorta at Sinotubular Diameter 2.8 cm M-MODE Aortic Annulus Diameter 2.4 cm LA Ao Ratio MM 2.0 MV E Point Septal Separation 0.9 cm DOPPLER AV Peak Velocity 225.0 cm/s LVOT Peak Velocity 81.0 cm/s AV Area Cont Eq vti 1.2 cm squared AV Area Cont Eq pk 1.1 cm squared MV E' Velocity 8.0 cm/s TR Peak Velocity 229.0 cm/s TR Peak Gradient 21.0 mmHg TV Peak E Velocity 84.0 cm/s Right Atrial Pressure 3.0 mmHg Pulmonary Artery Systolic Pressu 24.0 mmHg PV Peak Velocity 113.0 cm/s FINDINGS Left Ventricle Possibly normal LV size and ejection fraction of around 55%, (visual) Right Ventricle Mildly dilated right ventricle with a slightly diminished ejection fraction Right Atrium Mildly increased right atrial size. Left Atrium Mildly increased left atrial size. Mitral Valve Moderate mitral annular calcification. Thickened mitral valve. Aortic Valve Thickened aortic valve. Tricuspid Valve Moderate tricuspid valve regurgitation. Pulmonic Valve Pulmonic valve not well visualized. Pericardium No pericardial effusion. Aorta Normal aortic annulus size. IVC Inferior vena cava not visualized. CONCLUSIONS Study is a suboptimal quality because of the poor apical been technical difficulties. (Echo contrast - Optison was used to delineate the endocardium and to estimate the LV ejection fraction) The echo contrast also was a suboptimal quality. The LV ejection fraction appears to be within normal limits. Right ventricular appears to be mildly dilated with a diminished slightly diminished ejection fraction. Mild biatrial enlargement. Moderate tricuspid valve regurgitation. Thickened mitral valve No pericardial effusion Technically difficult study. Comparison with the previous study is difficult, for this reason. Dr Sammy Aquino MD [facility] (Electronically Signed) Final Date: 14 December 2023 13:34 S
[2023-12-14] MEDS: metoprolol tartrate 25 mg Tablet PO ×2 (10:44→21:07)
[2023-12-14] MEDS: nystatin powder 30 gm Btl 1 APPLIC TOPICAL (10:45)
--- NOTE | 2023-12-14 10:46 | P.CONIM_ITS ---
Providers/Reason For Consult 2 Consulting Physician/Specialty*: kommana/Nephrology Reason for Consult*: ROSEMARIE Attending Physician: Brett Raphael MD Primary Care Provider: PARAG Mensah History of Present Illness History of Present Illness Jennifer Novak is a 68 year old female Patient is a 68-year-old female with past medical history significant for diabetes, hypertension, diastolic CHF, diabetic gastroparesis, presented to the emergency department complaining of progressively worsening shortness of breath and lower extremity edema going on for the last 2 weeks. Shortness of breath has been limiting her activities of daily living. She has orthopnea and shortness of breath with minimal exertion. Patient has history of CKD with a baseline creatinine of 1.5-1.9 range. Patient has multiple prior ROSEMARIE's in the past. She denies NSAID use no new medications recently. Lab data in the ER significant for creatinine of 2.8, hemoglobin of 8.4. Chest x-ray showed pulmonary edema patient currently started on Lasix 80 mg every 8 hours. Review of Systems 2 Narrative: Other review of systems negative Medications/Allergies Home Medications Medication Instructions Recorded Confirmed Last Taken Type cholecalciferol (vitamin D3) 125 125 mcg PO DAILY 05/14/21 12/12/23 12/12/23 History mcg (5,000 unit) tablet (Vitamin D3) acetaminophen 325 mg tablet 325 - 650 mg PO Q6H PRN Pain 12/13/21 12/12/23 Unknown History cyanocobalamin (vitamin B-12) 50 50 mcg PO DAILY ##0 04/12/22 12/12/23 12/12/23 History mcg tablet (Vitamin B-12) blood-glucose meter (OneTouch #1 ea 09/29/22 12/12/23 Unknown Rx Ultra2 Meter kit) diabetic shoes with inserts #1 ea 02/25/23 12/12/23 Unknown Rx isosorbide mononitrate 60 mg 60 mg PO DAILY #90 tabs 04/13/23 12/12/23 12/12/23 Rx tablet,extended release 24 hr hydroxychloroquine 200 mg tablet 200 mg PO BID #180 tabs 05/02/23 12/12/23 12/12/23 Rx triamcinolone acetonide 0.1 % 1 applic topical DAILY PRN itching 05/10/23 12/12/2324 Rx topical ointment #30 grams lancets 33 gauge (SimplilearnTouch Delica #100 ea 05/13/23 12/12/23 Unknown Rx Lancets) lancing device with lancets kit #1 ea 05/13/23 12/12/23 Unknown Rx (Andel [employer] Plus Lancing Device kit) fluoxetine 20 mg capsule 20 mg PO DAILY 08/13/23 12/12/23 12/12/23 History fluoxetine 40 mg capsule 40 mg PO BEDTIME 08/13/23 12/12/23 12/11/23 History magnesium oxide 400 mg PO DAILY PRN Muscle Spasm 08/13/23 12/12/23 12/12/23 History oxycodone 5 mg tablet 2.5 - 5 mg PO Q8H PRN Pain 09/08/23 12/12/23 12/12/23 History rosuvastatin 10 mg tablet 10 mg PO QPM 09/08/23 12/12/23 12/11/23 History albuterol sulfate 90 mcg/actuation 2 puff inhalation Q4H PRN 09/15/23 12/12/23 08/13/23 20:00 Rx aerosol inhaler (ProAir HFA) shortness of breath or wheezing #8.5 grams amlodipine 10 mg tablet 10 mg PO DAILY #60 tabs 09/15/23 12/12/23 12/12/23 Rx bumetanide 2 mg tablet 2 mg PO BID #90 tabs 09/15/23 12/12/23 12/12/23 08:00 Rx hydralazine 25 mg tablet 50 mg (2 x 25 mg) PO TID #90 tabs 09/15/23 12/12/23 12/12/23 Rx metoprolol tartrate 25 mg tablet 25 mg PO BID #60 tabs 09/15/23 12/12/23 12/12/23 Rx dicyclomine 20 mg tablet 20 mg PO QID PRN stooling 10/12/23 12/12/23 12/12/23 History insulin degludec 200 unit/mL (3 80 unit (0.4 mL) SUBCUT DAILY #18 10/12/23 12/12/23 12/12/23 Rx mL) subcutaneous pen (Tresiba mL FlexTouch U-200 insulin) pantoprazole 40 mg tablet,delayed 40 mg PO DAILY 10/12/23 12/12/23 12/12/23 History release nystatin 100,000 unit/gram topical 1 applic topical BID #15 grams 10/26/23 12/12/23 12/12/23 Rx powder (Nystop) hydroxyzine pamoate 50 mg capsule 50 mg PO .at bedtime #90 caps 10/28/23 12/12/23 12/11/23 Rx Bariatric emy lift #1 ea 11/04/23 12/12/23 Unknown Rx blood sugar diagnostic (OneTouch #100 ea 11/21/23 12/12/23 Unknown Rx Ultra Test strips) pen needle, diabetic 31 gauge x #200 ea 11/21/23 12/12/23 Unknown Rx 04/05 (TechLITE Pen Needle) potassium chloride 10 mEq 10 meq PO BID #60 tabs 11/21/23 12/12/23 12/12/23 Rx tablet,extended release insulin lispro 100 unit/mL See Rx Instructions SUBCUT 11/25/23 12/12/23 12/12/23 Rx subcutaneous pen (Humalog KwikPen .COMPLEX #15 mL (U-100) Insulin) nitroglycerin 0.4 mg sublingual 0.4 mg sublingual Q5M PRN Chest 11/25/23 12/12/23 Unknown Rx tablet (Nitrostat) Pain #50 tabs ferrous sulfate 325 mg (65 mg 325 mg PO DAILY #30 tabs 11/30/23 12/12/23 12/12/23 08:00 Rx iron) tablet,delayed release Allergies Allergy/AdvReac Type Severity Reaction Status Date / Time acetaminophen [From Whitharral] Allergy Unknown Verified 12/12/23 14:09 bacitracin Allergy ADR-Nausea Verified 12/12/23 14:09 codeine Allergy ADR-Nausea Verified 12/12/23 14:09 hydrocodone [From Whitharral] Allergy Unknown Verified 12/12/23 14:09 Latex, Natural Rubber Allergy Unknown Verified 12/12/23 14:09 morphine Allergy ADR-Itching Verified 12/12/23 14:09 neomycin Allergy ALGY-Rash Verified 12/12/23 14:09 [From Neosporin ([id number])] polymyxin B Allergy ALGY-Rash Verified 12/12/23 14:09 [From Neosporin ([id number])] Sulfa (Sulfonamide Allergy ADR-Nausea Verified 12/12/23 14:09 Antibiotics) sulfamethoxazole Allergy Unknown Verified 12/12/23 14:09 [From Bactrim] trimethoprim [From Bactrim] Allergy Unknown Verified 12/12/23 14:09 spironolactone AdvReac Severe temporary Uncoded 12/12/23 14:09 blindness Current Medications Generic Name Dose Route Start Last Admin Trade Name Freq PRN Reason Stop Dose Admin Amlodipine Besylate 10 mg 12/13/23 09:00 12/14/23 08:22 Amlodipine 10 Mg Tablet PO 10 mg DAILY HERMINIO Administration Atorvastatin Calcium 20 mg 12/12/23 21:00 12/13/23 22:10 Atorvastatin 40 Mg Tablet PO 20 mg BEDTIME HERMINIO Administration Cyclobenzaprine HCl 5 mg 12/12/23 22:45 12/13/23 18:39 Cyclobenzaprine 10 Mg Tablet PO 5 mg TID PRN Administration MUSCLE SPASMS Ferrous Sulfate 325 mg 12/13/23 09:00 12/14/23 08:22 Ferrous Sulfate Ec 325 Mg Tablet PO 325 mg DAILY HERMINIO Administration Fluoxetine HCl 20 mg 12/13/23 09:00 12/14/23 08:21 Fluoxetine 20 Mg Capsule PO 20 mg DAILY HERMINIO Administration Furosemide 80 mg 12/13/23 03:00 12/14/23 10:44 Furosemide 10 Mg/Ml Sdv 10ml IVP 80 mg Q8H HERMINIO Administration Heparin Sodium (Porcine) 5,000 unit 12/12/23 19:00 12/14/23 08:21 Heparin 5,000 Unit/Ml Inj 1 Ml SUBCUT 5,000 unit Q12H HERMINIO Administration Hydralazine HCl 50 mg 12/12/23 21:00 12/14/23 08:22 Hydralazine 50 Mg Tablet PO 50 mg TID HERMINIO Administration Hydromorphone HCl 0.5 mg 12/13/23 11:18 12/14/23 08:22 Hydromorphone 1 Mg/Ml Inj 1 Ml IVP 0.5 mg Q6H PRN Administration PAIN Hydroxychloroquine Sulfate 200 mg 12/14/23 09:00 12/14/23 10:44 Hydroxychloroquine 200 Mg Tablet PO 12/17/23 09:01 200 mg DAILY HERMINIO Administration Insulin Glargine 30 unit 12/14/23 09:00 12/14/23 08:21 Insulin Glargine 100 Units/1 Ml SUBCUT 30 unit DAILY HERMINIO Administration Insulin Human Lispro 0 unit 12/12/23 21:00 12/14/23 08:23 Insulin Lispro 100 Unit/1 Ml SUBCUT Not Given WM&BEDTIME HERMINIO Protocol Isosorbide Mononitrate 60 mg 12/13/23 09:00 12/14/23 08:22 Isosorbide Mononitrate Er 60 Mg Tablet PO 60 mg DAILY HERMINIO Administration Metoprolol Tartrate 25 mg 12/12/23 21:00 12/14/23 10:44 Metoprolol Tartrate 25 Mg Tablet PO 25 mg BID@0900,2100 HERMINIO Administration Nystatin 1 applic 12/13/23 09:00 12/14/23 10:45 Nystatin Powder 30 Gm Btl TOPICAL 1 applic BID HERMINIO Administration Oxycodone HCl 5 mg 12/12/23 20:57 12/13/23 18:39 Oxycodone 5 Mg Ir Tab/Cap PO 5 mg Q8H PRN Administration MODERATE PAIN Pantoprazole Sodium 40 mg 12/13/23 09:00 12/14/23 08:[address] 40 Mg Tablet PO 40 mg BID HERMINIO Administration Trazodone HCl 100 mg 12/12/23 21:00 12/13/23 22:10 Trazodone 100 Mg Tablet PO 100 mg BEDTIME HERMINIO Administration PFSH Acute 2 PFSH: Medical History (Updated 12/13/23 @ 17:57 by Sammy Aquino MD) Type 2 diabetes mellitus with diabetic chronic kidney disease Gastric ulcer H. pylori ruled out at [facility]-acquired pneumonia Acute exacerbation of CHF (congestive heart failure) Acute on chronic renal failure Diabetic gastroparesis Hypoxia Anemia Positive GIFTY (antinuclear antibody) Frequent falls Muscle spasm High risk medication use Seronegative rheumatoid arthritis of both hands Diabetic foot Hip pain, left Benign hypertension Atypical chest pain IgM monoclonal gammopathy of uncertain significance Chronic diastolic heart failure Intermittent atrial fibrillation Chest pain Edema CKD (chronic kidney disease) stage 3, GFR 30-59 ml/min Urinary disorder Anxiety Pneumonitis Left lumbar radiculopathy Back pain Lymph edema Fracture of distal end of fibula Syncope and collapse Essential tremor Mobility impaired IBS (irritable bowel syndrome) Inflammatory arthritis Chronic back pain Chronic major depressive disorder Peripheral neuropathy Polyarthralgia Edema, peripheral Noncompliance with diabetes treatment Not consistent with diet Near syncope Monoclonal gammopathy Major depression Diabetic neuropathy associated with type 2 diabetes mellitus Severe obstructive sleep apnea Mild cognitive impairment with memory loss Dietary noncompliance Atrial flutter Coronary artery fistula Chronic obstructive pulmonary disease, unspecified Obesity CKD (chronic kidney disease) Benign hypertension Fibromyalgia Diverticulosis Environmental and seasonal allergies Situational anxiety Vitamin D deficiency Surgical History History of left heart catheterization (2017) No significant obstructive coronary disease Hx of esophagogastroduodenoscopy Hx of colonoscopy History of tonsillectomy History of section 4 times History of cholecystectomy (1993) History of hysterectomy (1997) with BSO Family History Brother Bleeding disorder CAD (coronary artery disease) Father CAD (coronary artery disease) Chronic kidney disease (CKD) Mother CAD (coronary artery disease) Cancer Diabetes Family/Other Cancer Other CHF (congestive heart failure) Heart disease Hypertension Denies family history of Clotting disorder Dementia Suicide Anesthesia complication Lung disease Stroke Social History Smoking and tobacco/nicotine status: former use of tobacco/nicotine Quit status (tobacco/nicotine): has quit using Year quit tobacco: 1990 Former quit date comment: smoked 20+ years Second hand smoke exposure: No Alcohol intake: never Substance/Drug Use: never Adopted: No Caregiver/support person: Yes Lives independently: No Household members: children and other Details: Son, sometimes grandson Housing: House Marital status: Single service: No Current occupational status: disabled Do you think of yourself as: Straight/Heterosexual Current gender identity: Female Vitals/I&O/Wt Last Vital Signs Temp 97.9 F 12/14/23 00:20 Pulse 68 12/14/23 08:45 Resp 18 12/14/23 08:45 BP 140/54 12/14/23 05:16 Pulse Ox 98 12/14/23 08:45 O2 Del Method Nasal Cannula 12/14/23 08:45 O2 Flow Rate 2 12/14/23 08:45 12/13/23 12/14/23 12/14/23 22:59 06:59 14:59 Intake Total 240 / 680 Output Total 400 / 650 250 / 900 Balance -400 / -210 -10 / -220 Weight last 48 hrs Weight 165.675 kg Weight 163.565 kg Weight 163.475 kg Weight 167.829 kg Physical Exam 2 Narrative: Awake alert, no acute distress 2-3+ pedal edema Urinary Catheter Management: Latex Free: Cath Placed During This Visit: yes Reason for Continuing Indwelling Catheter: Accurate Measurement of Urinary Output in Critically Ill Patients Urinary Catheter Date of Insertion: 12/12/23 Urinary Catheter Time of Insertion: 15:39 Data 12/14/23 03:31 12/14/23 03:31 A&P Assessment and plan (1) Acute kidney injury superimposed on chronic kidney disease: Plan 1. Acute on chronic kidney disease stage III: Patient's baseline creatinine of 1.5-1.9, has multiple ROSEMARIE's in the past. Now presents with volume overload and creatinine of 2.8 worsened to 3.0 today. -Placed on IV Lasix 80 every 8 hours, but has inadequate diuresis. -Will switch to Lasix drip with IV albumin every 8 hours, add metolazone 2.5 daily -2 g sodium restriction and 1500 mL fluid restriction -Will check urine electrolytes. 2. Anemia: Hemoglobin 7.4, will benefit from transfusion, will add BOUCHRA 3. Diastolic CHF, diuresis as above, echo pending 4. Acute on chronic respiratory failure, multifactorial, patient has history of COPD, LIZ and CHF 5. History of diabetes Patient evaluated using audiovisual cart. Time spent 40 minutes. Consult Attestations 2 Medical Necessity Statement: per marlene Coding Level of Care Code Acute Code for Chg Fwd Diagnoses Acute kidney injury superimposed on chronic kidney disease N17.9; N18.9
[2023-12-14] MEDS: perflutren protein-a microsphr 0.22 mg/mL SDV 3 mL IV (10:54)
--- NOTE | 2023-12-14 11:19 | PC.SOCIAL ---
Pg 2 IMM Updated pt on IMM. No questions voiced. Provided pt a copy. Initialed, dated, & timed a copy & placed in chart.
[2023-12-14] MEDS: insulin lispro 100 unit/1 mL SUBCUT (11:57)
[2023-12-14 12:02] LABS: Glucose Point of Care 149 mg/dL (70-110)
[2023-12-14] MEDS: albumin 25 G/100 ML BAG 60 G IV ×2 (13:43→21:15)
[2023-12-14] MEDS: FUROsemide 100 MG in sodium chloride 0.9% 40 ML 10 MG IV ×2 (13:50→21:44)
[2023-12-14 17:21] LABS: Glucose Point of Care 107 mg/dL (70-110)
--- NOTE | 2023-12-14 19:47 | PM.PN ---
Subjective Subjective: Patient is feeling little better. Has no chest pain or palpitation. She is mainly complaining of shortness of breath and has the difficulty in getting up and moving around. No fever or chills. No cough. Had echocardiogram today. The LV ejection fraction was found to be within normal limits. Medications: Medication Review Details: Current Medications Albuterol/Ipratropium (Ipratropium-Albuterol 3 Ml Neb) 3 ml INHALATION Q6H PRN PRN Reason: SHORTNESS OF BREATH Amlodipine Besylate (Amlodipine 10 Mg Tablet) 10 mg PO DAILY [facility] Last Admin: 12/14/23 08:22 Dose: 10 mg Atorvastatin Calcium (Atorvastatin 40 Mg Tablet) 20 mg PO BEDTIME [facility] Last Admin: 12/13/23 22:10 Dose: 20 mg Cyclobenzaprine HCl (Cyclobenzaprine 10 Mg Tablet) 5 mg PO TID PRN PRN Reason: MUSCLE SPASMS Last Admin: 12/13/23 18:39 Dose: 5 mg Dextrose (Dextrose 50% Syringe 50 Ml) 25 ml IVP ONCE PRN; Protocol PRN Reason: hypoglycemia protocol Dextrose (Dextrose 50% Syringe 50 Ml) 50 ml IVP PRN PRN; Protocol PRN Reason: hypoglycemia protocol Ferrous Sulfate (Ferrous Sulfate Ec 325 Mg Tablet) 325 mg PO DAILY [facility] Last Admin: 12/14/23 08:22 Dose: 325 mg Fluoxetine HCl (Fluoxetine 20 Mg Capsule) 20 mg PO DAILY [facility] Last Admin: 12/14/23 08:21 Dose: 20 mg Heparin Sodium (Porcine) (Heparin 5,000 Unit/Ml Inj 1 Ml) 5,000 unit SUBCUT Q12H [facility] Last Admin: 12/14/23 18:12 Dose: 5,000 unit Hydralazine HCl (Hydralazine 50 Mg Tablet) 50 mg PO TID [facility] Last Admin: 12/14/23 15:18 Dose: 50 mg Hydromorphone HCl (Hydromorphone 1 Mg/Ml Inj 1 Ml) 0.5 mg IVP Q6H PRN PRN Reason: PAIN Last Admin: 12/14/23 15:17 Dose: 0.5 mg Hydroxychloroquine Sulfate (Hydroxychloroquine 200 Mg Tablet) 200 mg PO DAILY [facility] Stop: 12/17/23 09:01 Last Admin: 12/14/23 10:44 Dose: 200 mg Dextrose (D5w) 500 mls @ 0 mls/hr IV ONCE PRN; Protocol PRN Reason: Adult Acute Hypoglycemia Prot Furosemide 100 mg/ Sodium (Chloride) 50 mls @ 0 mls/hr IV .Q0M [facility]; Protocol Last Admin: 12/14/23 13:50 Dose: 20 mg/hr, 10 mls/hr Albumin Human (Albumin) 25 g in 100 mls @ 60 mls/hr IV Q8H [facility] Last Infusion: 12/14/23 16:47 Dose: Infused Insulin Glargine (Insulin Glargine 100 Units/1 Ml) 30 unit SUBCUT DAILY [facility] Last Admin: 12/14/23 08:21 Dose: 30 unit Insulin Human Lispro (Insulin Lispro 100 Unit/1 Ml) 0 unit SUBCUT WM&BEDTIME [facility]; Protocol Last Admin: 12/14/23 17:40 Dose: Not Given Isosorbide Mononitrate (Isosorbide Mononitrate Er 60 Mg Tablet) 60 mg PO DAILY [facility] Last Admin: 12/14/23 08:22 Dose: 60 mg Metolazone (Metolazone 5 Mg Tablet) 2.5 mg PO DAILY [facility] Metoprolol Tartrate (Metoprolol Tartrate 25 Mg Tablet) 25 mg PO BID@0900,2100 [facility] Last Admin: 12/14/23 10:44 Dose: 25 mg Nystatin (Nystatin Powder 30 Gm Btl) 1 applic TOPICAL BID [facility] Last Admin: 12/14/23 18:15 Dose: Not Given Ondansetron HCl (Ondansetron 2 Mg/Ml Sdv 2 Ml) 4 mg IVP Q6H PRN PRN Reason: vomiting, or N/V if npo Oxycodone HCl (Oxycodone 5 Mg Ir Tab/Cap) 5 mg PO Q8H PRN PRN Reason: MODERATE PAIN Last Admin: 12/13/23 18:39 Dose: 5 mg Pantoprazole Sodium (Pantoprazole Dr 40 Mg Tablet) 40 mg PO BID [facility] Last Admin: 12/14/23 18:12 Dose: 40 mg Trazodone HCl (Trazodone 100 Mg Tablet) 100 mg PO BEDTIME [facility] Last Admin: 12/13/23 22:10 Dose: 100 mg Vitals/I&O/Wt Last Vital Signs Temp 97.7 F 12/14/23 14:22 Pulse 61 12/14/23 17:22 Resp 21 H 12/14/23 15:17 BP 136/63 12/14/23 17:22 Pulse Ox 96 12/14/23 17:22 O2 Del Method Nasal Cannula 12/14/23 14:22 O2 Flow Rate 2 12/14/23 08:45 12/14/23 12/14/23 12/14/23 06:59 14:59 22:59 Intake Total 240 / 680 240 / 240 100 / 340 Output Total 250 / 900 530 / 530 Balance -10 / -220 240 / 240 -430 / -190 Weight last 48 hrs Weight 365 lb 4 oz Weight 360 lb 9.6 oz Physical Exam Narrative: GENERAL: The patient is alert and oriented times three.Morbidly obese. Somewhat tachypneic HEENT: No significant pallor, icterus or lymphadenopathy.Oral cavity: There are no mucous membrane lesions. NECK: Trachea appears to be central. No masses noted. No JVD or thyromegaly appreciated. RESPIRATORY: Chest is symmetrical. No intercostals muscle retraction or any accessory muscle activation. There is no chest wall tenderness. Breath sounds are heard bilaterally. Occasional expiratory wheezing no evidence of any consolidation. BREASTS: Deferred. HEART: The heart sounds are normal. No S3 or S4. No significant murmurs. No pericardial rub ABDOMEN: Abdomen is obese. Marked edema of the abdominal wall especially in the lower abdomen : Deferred. RECTAL: Deferred. LYMPHATIC: No lymphadenopathy noted in the neck. EXTREMITIES: 3+ edema both lower extremities. MUSCULOSKELETAL: No acute joint deformities or swelling SKIN: Erythematous and indurated skin of the lower abdomen NEUROPSYCHIATRIC: The patient is alert and oriented x3. Appears to be in a good mood. No tremors or rigidity noted. Urinary Catheter Management: Latex Free: Cath Placed During This Visit: yes Reason for Continuing Indwelling Catheter: Accurate Measurement of Urinary Output in Critically Ill Patients Urinary Catheter Date of Insertion: 12/12/23 Urinary Catheter Time of Insertion: 15:39 Data 12/14/23 03:31 12/14/23 03:31 Other Labs: Laboratory Last Values WBC 5.85 10^3/uL (3.29-11.43) 12/14/23 03:31 RBC 2.61 10^6/uL (3.85-5.65) L 12/14/23 03:31 Hgb 7.40 g/dL (11.27-16.99) L 12/14/23 03:31 Hct 24.5 % (36-47) L 12/14/23 03:31 MCV 93.9 fl (85-98) 12/14/23 03:31 MCH 28.4 pg (27-33) 12/14/23 03:31 MCHC 30.2 g/dL (30-55) 12/14/23 03:31 RDW 16.4 % (12.1-15.1) H 12/14/23 03:31 Plt Count 164 10^3/cmm (157-399) 12/14/23 03:31 MPV 10.7 fL (7.4-10.4) H 12/14/23 03:31 Neut % (Auto) 69.1 % 12/14/23 03:31 Lymph % (Auto) 13.7 % 12/14/23 03:31 [place]urel % (Auto) 11.6 % 12/14/23 03:31 Eos % (Auto) 4.6 % 12/14/23 03:31 Baso % (Auto) 0.7 % 12/14/23 03:31 Neut # (Auto) 4.04 10^3/uL (1.8-7.7) 12/14/23 03:31 Lymph # (Auto) 0.8 10^3/uL (0.8-4.8) 12/14/23 03:31 Laurel # (Auto) 0.7 10^3/uL (0.2-0.9) 12/14/23 03:31 Eos # (Auto) 0.3 10^3/uL (0.0-0.8) 12/14/23 03:31 Baso # (Auto) 0.0 10^3/uL (0.0-0.1) 12/14/23 03:31 Nucleated RBC % (auto) 0 % 12/14/23 03:31 Nucleated RBCs # 0.0 /100WBC 12/14/23 03:31 PT 15.70 SECONDS (12.1-14.9) H 12/12/23 14:58 INR 1.21 (0.8-1.2) H 12/12/23 14:58 Sodium 140 mmol/L (136-145) 12/14/23 03:31 Potassium 4.7 mmol/L (3.5-5.1) 12/14/23 03:31 Chloride 103 mmol/L (98-107) 12/14/23 03:31 Carbon Dioxide 27 mmol/L (22-29) 12/14/23 03:31 Anion Gap 14.7 (5-19) 12/14/23 03:31 BUN 74 mg/dL (8-23) H 12/14/23 03:31 Creatinine 3.0 mg/dL (0.5-0.9) H 12/14/23 03:31 GFR Calculation 15.6 mL/min (90-130) L 12/14/23 03:31 Glucose 96 mg/dL (65-115) 12/14/23 03:31 POC Glucose 107 mg/dL (70-110) 12/14/23 16:58 Calculated Osmolality 312 mOsm/kg (285-295) H 12/14/23 03:31 Calcium 9.3 mg/dL (8.5-10.5) 12/14/23 03:31 Magnesium 2.9 mg/dL (1.7-2.3) H 12/14/23 03:31 Total Bilirubin 0.3 mg/dL (0.15-1.2) 12/13/23 03:44 AST 17 U/L (0-32) 12/13/23 03:44 ALT 17 U/L (0-33) 12/13/23 03:44 Alkaline Phosphatase 89 U/L (35-105) 12/13/23 03:44 Troponin T Baseline 73 ng/L (0-10) H 12/12/23 14:58 Troponin T 120 Minute 70.53 ng/L (0-10) H 12/12/23 16:53 Delta Troponin T -2.47 ABS# (0-10) L 12/12/23 16:53 Troponin T Hi Sens 6Hr 70.55 ng/L (0-10) H 12/12/23 20:29 Troponin T Hi Sens 6Hr Delta -2.45 ng/L (0-12) L 12/12/23 20:29 NT-Pro-B Natriuret Pep 9694 pg/mL (0-125) H 12/12/23 14:58 Total Protein 6.4 g/dL (6.6-8.7) L 12/13/23 03:44 Albumin 3.5 g/dL (3.5-5.2) 12/13/23 03:44 Globulin 2.9 g/dL (1.3-4.6) 12/13/23 03:44 Urine Color Yellow (Yellow) 12/12/23 15:33 Urine Appearance Clear (CLEAR) 12/12/23 15:33 Urine pH 5 (5-7) 12/12/23 15:33 Ur Specific [place] 1.020 (1.005-1.030) 12/12/23 15:33 Urine Protein 1+ (Negative) H 12/12/23 15:33 Urine Glucose (UA) Norm (Normal) 12/12/23 15:33 Urine Ketones Negative (Negative) 12/12/23 15:33 Urine Blood Neg (Negative) 12/12/23 15:33 Urine Nitrate Negative (Negative) 12/12/23 15:33 Urine Bilirubin Neg (Negative) 12/12/23 15:33 Urine Urobilinogen Norm mg/dL (Negative) 12/12/23 15:33 Ur Leukocyte Esterase Negative (Negative) 12/12/23 15:33 Urine RBC None /hpf (0-2) 12/12/23 15:33 Urine WBC 0-4 /hpf (0-5) H 12/12/23 15:33 Ur Squamous Epith Cells 0-4 /hpf (0-5) H 12/12/23 15:33 Amorphous Sediment Not Reportable 12/12/23 15:33 Urine Bacteria Trace /hpf (NONE) 12/12/23 15:33 Hyaline Casts 0-4 /lpf H 12/12/23 15:33 Other data: Echocardiogram report from today Study is a suboptimal quality because of the poor apical window (Echo contrast - Optison was used to delineate the endocardium and to estimate the LV ejection fraction) The echo contrast also was a suboptimal quality. The LV ejection fraction appears to be within normal limits. Right ventricular appears to be mildly dilated with slightly diminished ejection fraction. Mild biatrial enlargement. Moderate tricuspid valve regurgitation. Thickened mitral valve No pericardial effusion Technically difficult study. Comparison with the previous study is difficult, for this reason. A&P Assessment and plan (1) Acute on chronic diastolic (congestive) heart failure: The echocardiogram was reviewed. The LV ejection fraction is within normal limits. Patient seems to be responding to the diuretics. Adjust diuretics as per nephrology recommendations (2) Generalized edema: Appreciate nephrology input. The edema is slowly improving. (3) Acute kidney injury superimposed on chronic kidney disease: Will be closely monitoring the kidney function. Nephrology consult be appropriate for further management. (4) Chronic obstructive pulmonary disease, unspecified: May continue with the bronchodilator treatment. Qualifiers: COPD type: unspecified COPD Qualified Code(s): J44.9 - Chronic obstructive pulmonary disease, unspecified (5) Type 2 diabetes mellitus with diabetic chronic kidney disease: Aggressive management of the hyperglycemia would be appropriate Qualifiers: Diabetes mellitus salvage determiner insulin use: with [facility] use Chronic kidney disease stage: stage 4 (severe) Qualified Code(s): E11.22 - Type 2 diabetes mellitus with diabetic chronic kidney disease; N18.4 - Chronic kidney disease, stage 4 (severe); Z79.4 - watermaster (current) use of insulin (6) Benign hypertension: The blood pressure seems to be getting under control. Plan May continue with IV diuresis at this point. Patient may not require any specific cardiac intervention at this point Attestations Medical Necessity Statement*: Patient requires continued hospital stay for close monitoring and further management Coding Level of Care Code Acute Code for Chg Fwd Diagnoses Acute on chronic diastolic (congestive) heart failure I50.33 Generalized edema R60.1 Acute kidney injury superimposed on chronic kidney disease N17.9; N18.9 Chronic obstructive pulmonary disease, unspecified COPD type J44.9 COPD type: unspecified COPD Type 2 diabetes mellitus with stage 4 chronic kidney disease, with long-term current use of insulin E11.22; N18.4; Z79.4 Diabetes mellitus [facility] insulin use: with [facility] use Chronic kidney disease stage: stage 4 (severe) Benign hypertension I10
[2023-12-14] MEDS: atorvastatin 40 mg Tablet 20 MG PO (21:07)
[2023-12-14] MEDS: trazodone 100 mg Tablet PO (21:08)
[2023-12-14 21:20] LABS: Glucose Point of Care 117 mg/dL (70-110)
[2023-12-14] MEDS: cyclobenzaprine 10 mg Tablet 5 MG PO (21:33)
[2023-12-15] VITALS (21 sets, daily range): BP systolic 113–153; BP diastolic 52–72; PULSE 62–72; RESP 14–25; TEMP 36.6–37.1; O2SAT 90–97
[2023-12-15] MEDS: FUROsemide 100 MG in sodium chloride 0.9% 40 ML 10 MG IV ×3 (02:58→18:02)
[2023-12-15 05:00] LABS: Basophils % 0.7 %; Eosinophils # 0.3 10^3/uL (0.0-0.8); Eosinophils % 5.3 %; Hematocrit 23.4 % (36-47); Lymphocytes # 0.6 10^3/uL (0.8-4.8); Lymphocytes % 11.4 %; Mean Corpuscular HGB Conc 30.3 g/dL (30-55); Mean Corpuscular Hemoglobin 28.4 pg (27-33); Mean Corpuscular Volume 93.6 fl (85-98); Mean Platelet Volume 10.5 fL (7.4-10.4); Monocytes # 0.6 10^3/uL (0.2-0.9); Monocytes % 10.4 %; Neutrophils # 3.93 10^3/uL (1.8-7.7); Nucleated Red Blood Cells % 0 %; Platelet Count 157 10^3/cmm (157-399); Red Cell Distribution Width 16.1 % (12.1-15.1); White Blood Count 5.46 10^3/uL (3.29-11.43)
[2023-12-15 05:20] LABS: Anion Gap 17.7 (5-19); Blood Urea Nitrogen 75 mg/dL (8-23); Calcium 9.5 mg/dL (8.5-10.5); Carbon Dioxide 26 mmol/L (22-29); Chloride 101 mmol/L (98-107); Glucose 103 mg/dL (65-115); Osmolality Calculated 313 mOsm/kg (285-295); Potassium 4.7 mmol/L (3.5-5.1); Sodium 140 mmol/L (136-145)
[2023-12-15] MEDS: HYDROmorphone 1 mg/mL INJ 1 mL 0.5 MG IVP ×3 (06:08→20:10)
[2023-12-15] MEDS: albumin 25 G/100 ML BAG 60 G IV ×3 (06:08→21:59)
[2023-12-15] MEDS: heparin 5,000 unit/mL INJ 1 mL 5000 UNIT SUBCUT ×2 (06:09→20:11)
[2023-12-15] MEDS: cyclobenzaprine 10 mg Tablet 5 MG PO (06:22)
[2023-12-15 07:05] LABS: Glucose Point of Care 144 mg/dL (70-110)
--- NOTE | 2023-12-15 07:39 | P.PN_ITS ---
Documented by User: [email or web address] Martinez 12/15/23 07:54 Subjective 2 Subjective: Patient was evaluated this morning while lying in bed resting on 2L/NC. Patient continues to report that she feels better though has some cramping in her lower extremities. Reports that she was able to ambulate to the restroom yesterday with physical therapy and tolerated fair. Denies any nausea, vomiting, chest discomfort, or shortness of breath. Medications: Reviewed: Yes Vitals/I&O/Wt Last Vital Signs Temp 98.2 F 12/15/23 07:25 Pulse 69 12/15/23 07:25 Resp 18 12/15/23 07:25 BP 146/59 12/15/23 07:25 Pulse Ox 94 12/15/23 07:25 O2 Del Method Nasal Cannula 12/15/23 07:25 O2 Flow Rate 2 12/14/23 08:45 FiO2 2 12/15/23 07:25 12/14/23 12/15/23 12/15/23 22:59 06:59 14:59 Intake Total 431 / 671 349 / 1020 Output Total 530 / 530 Balance -99 / 141 349 / 490 Weight last 48 hrs Weight 168.028 kg Weight 165.675 kg Physical Exam 2 Narrative: General: Alert, no distress, 2L/NC, obese Neck is supple no lymphadenopathy thyromegaly Cardiovascular regular rate and rhythm, heart sounds distant Lung sounds distant. Clear to auscultation, no crackles. Abdomen is soft obese nontender on palpation. Edema noted along her back anterior abdomen. Yeast noted to abdominal folds. Extremities no cyanosis clubbing. 4+ edema is noted generalized throughout. Urinary Catheter Management: Latex Free: Cath Placed During This Visit: yes Reason for Continuing Indwelling Catheter: Accurate Measurement of Urinary Output in Critically Ill Patients Urinary Catheter Date of Insertion: 12/12/23 Urinary Catheter Time of Insertion: 15:39 Data 12/15/23 04:21 12/15/23 04:21 Other Labs: Hgb 7.1, HCT 23.4, BUN 75, creatinine 3.3, Echo: Radiologist's impression: CONCLUSIONS Study is a suboptimal quality because of the poor apical been technical difficulties. (Echo contrast - Optison was used to delineate the endocardium and to estimate the LV ejection fraction) The echo contrast also was a suboptimal quality. The LV ejection fraction appears to be within normal limits. Right ventricular appears to be mildly dilated with a diminished slightly diminished ejection fraction. Mild biatrial enlargement. Moderate tricuspid valve regurgitation. Thickened mitral valve No pericardial effusion Technically difficult study. Comparison with the previous study is difficult, for this reason. A&P Assessment and plan (1) Acute exacerbation of congestive heart failure: Echocardiogram was performed yesterday and explained above. Normal LVEF. Patient continues to exhibit poor diuresis with Lasix regimen. As per #2 Cardiology consultation. Recommendations appreciated. Salt restriction Fluid restriction 1500 ml CBC, CMP, magnesium daily Qualifiers: Heart failure type: unspecified Qualified Code(s): I50.9 - Heart failure, unspecified (2) ROSEMARIE (acute kidney injury): Nephrology consultation. Recommendations appreciated. Lowered lantus dosing to 20 units. Patient was placed on Lasix drip yesterday as well as scheduled albumin. Metolazone 2.5 was also added daily. Kidney function this a.m. remained unchanged. Urine output last night on the lower side of 500. (3) Anemia: Slight decrease to 7.1 hemoglobin this a.m. Likely related to chronic kidney disease, autoimmune disease. Continue to monitor. Asymptomatic at this time. Consider transfusion if becomes symptomatic. Continue to hold off as I do not want to overload further from a fluid standpoint. Expecting hemoglobin to increase with diuresis. (4) Type 2 diabetes mellitus with diabetic chronic kidney disease: Sliding scale insulin Continue long-acting insulin Consistent carb diet Qualifiers: Chronic kidney disease stage: stage 4 (severe) Diabetes mellitus termite control technician insulin use: with [facility] use Qualified Code(s): E11.22 - Type 2 diabetes mellitus with diabetic chronic kidney disease; N18.4 - Chronic kidney disease, stage 4 (severe); Z79.4 - long term care social worker (current) use of insulin Plan Plan as stated above. Increased oxycodone to 10mg and flexeril to 10mg for increased pain and muscle spasms. Continue PT/OT treatment. Will continue fluid and salt restriction. Continue Lasix drip as well as scheduled albumin. Metaxalone was added yesterday by nephrology. Monitor labs in AM. Full code Heparin for DVT prophylaxis Attestations 2 Medical Necessity Statement*: Needs continued hospitalization for further diuresis secondary to acute heart failure and ROSEMARIE. Coding Level of Care Code 53200 Diagnoses Acute exacerbation of congestive heart failure I50.9 Heart failure type: unspecified ROSEMARIE (acute kidney injury) N17.9 Anemia D64.9 Type 2 diabetes mellitus with stage 4 chronic kidney disease, with long-term current use of insulin E11.22; N18.4; Z79.4 Chronic kidney disease stage: stage 4 (severe) Diabetes mellitus termite control technician insulin use: with [facility] use Time Spent (min) 28 Documented by User: Brett Raphael MD 12/15/23 08:42 Physical Exam 2 Urinary Catheter Management: Latex Free: Cath Placed During This Visit: yes Data 12/15/23 04:21 12/15/23 04:21 A&P Assessment and plan (1) Acute exacerbation of congestive heart failure: Qualifiers: Heart failure type: unspecified Qualified Code(s): I50.9 - Heart failure, unspecified (2) ROSEMARIE (acute kidney injury): Nephrology consultation. Recommendations appreciated. Lowered lantus dosing to 20 units. Patient was placed on Lasix drip yesterday as well as scheduled albumin. She did not have effective diuresis. Nurse is going to be informing nephrology for instructions regarding the furosemide drip. Metolazone 2.5 was also added daily. Kidney function this a.m. remained unchanged. Urine output last night on the lower side of 500. I CBC, BMP, magnesium tomorrow (3) Anemia: Slight decrease to 7.1 hemoglobin this a.m. Likely related to chronic kidney disease, autoimmune disease. Transfusion 1 unit packed red blood cells ordered (4) Type 2 diabetes mellitus with diabetic chronic kidney disease: Qualifiers: Chronic kidney disease stage: stage 4 (severe) Diabetes mellitus termite control technician insulin use: with termite control technician use Qualified Code(s): E11.22 - Type 2 diabetes mellitus with diabetic chronic kidney disease; N18.4 - Chronic kidney disease, stage 4 (severe); Z79.4 - long term care social worker (current) use of insulin Diagnoses Acute exacerbation of congestive heart failure I50.9 Heart failure type: unspecified ROSEMARIE (acute kidney injury) N17.9 Anemia D64.9 Type 2 diabetes mellitus with stage 4 chronic kidney disease, with long-term current use of insulin E11.22; N18.4; Z79.4 Chronic kidney disease stage: stage 4 (severe) Diabetes mellitus [facility] insulin use: with termite control technician use Time Spent (min) 28
--- NOTE | 2023-12-15 08:44 | PC.NURSE ---
Provider called and ordered to increase patients lasix drip to 40mg/hr.
[2023-12-15] MEDS: insulin glargine 100 units/1 mL 20 UNIT SUBCUT (08:59)
[2023-12-15] MEDS: insulin lispro 100 unit/1 mL SUBCUT (09:00)
[2023-12-15] MEDS: pantoprazole DR 40 mg Tablet PO ×2 (09:00→17:21)
[2023-12-15] MEDS: metOLazone 5 MG Tablet 2.5 MG PO (09:00)
[2023-12-15] MEDS: metoprolol tartrate 25 mg Tablet PO ×2 (09:00→20:12)
[2023-12-15] MEDS: amlodipine 10 mg Tablet PO (09:01)
[2023-12-15] MEDS: hydroxychloroquine 200 mg Tablet PO (09:01)
[2023-12-15] MEDS: hyDRALAzine 50 mg Tablet PO ×3 (09:01→20:12)
[2023-12-15] MEDS: ferrous sulfate EC 325 mg Tablet PO (09:01)
[2023-12-15] MEDS: fluoxetine 20 mg Capsule PO (09:01)
[2023-12-15] MEDS: isosorbide mononitrate ER 60 mg Tablet PO (09:01)
[2023-12-15] MEDS: nystatin powder 30 gm Btl 1 APPLIC TOPICAL ×2 (10:32→17:21)
[2023-12-15 11:43] LABS: Glucose Point of Care 117 mg/dL (70-110)
[2023-12-15] MEDS: sodium chloride 0.9% 100 mL Bag 50 ML IV (12:13)
[2023-12-15] MEDS: FUROsemide 100 MG in sodium chloride 0.9% 40 ML 20 MG IV (12:27)
--- NOTE | 2023-12-15 13:02 | PC.NURSE ---
Dr Levin ordered to lower lasix back to 10ml/hr for today. Provider said that this is standard.
--- NOTE | 2023-12-15 13:45 | P.PN_ITS ---
Subjective 2 Subjective: UOP remains low on lasix drip Medications: Reviewed: Yes Vitals/I&O/Wt Last Vital Signs Temp 98.4 F 12/15/23 13:13 Pulse 65 12/15/23 13:13 Resp 20 H 12/15/23 13:13 BP 153/63 12/15/23 13:13 Pulse Ox 96 12/15/23 13:13 O2 Del Method Nasal Cannula 12/15/23 12:00 O2 Flow Rate 2 12/15/23 09:44 FiO2 2 12/15/23 12:00 12/14/23 12/15/23 12/15/23 22:59 06:59 14:59 Intake Total 431 / 671 349 / 1020 411.667 / 411.667 Output Total 530 / 530 Balance -99 / 141 349 / 490 411.667 / 411.667 Weight last 48 hrs Weight 168.028 kg Weight 165.675 kg Physical Exam 2 Narrative: Awake alert, no acute distress 2-3+ pedal edema Urinary Catheter Management: Latex Free: Cath Placed During This Visit: yes Reason for Continuing Indwelling Catheter: Accurate Measurement of Urinary Output in Critically Ill Patients Urinary Catheter Date of Insertion: 12/12/23 Urinary Catheter Time of Insertion: 15:39 Data 12/15/23 04:21 12/15/23 04:21 A&P Assessment and plan (1) Acute kidney injury superimposed on chronic kidney disease: Plan 1. Acute on chronic kidney disease stage III: Patient's baseline creatinine of 1.5-1.9, has multiple ROSEMARIE's in the past. Now presents with volume overload and creatinine of 2.8 worsened to 3.3 today. -on Lasix drip with IV albumin every 8 hours, on metolazone 2.5 daily--> inadequate diuresis so far ,pt reports IMPROVEMENT IN sob , continue current regimen for another day -2 g sodium restriction and 1500 mL fluid restriction -Will check urine electrolytes. 2. Anemia: Hemoglobin 7.1, transfusion today, will add BOUCHRA 3. Diastolic CHF, diuresis as above, echo 4. Acute on chronic respiratory failure, multifactorial, patient has history of COPD, LIZ and CHF 5. History of diabetes Patient evaluated using audiovisual cart. Time spent 20 minutes. Attestations 2 Medical Necessity Statement*: per marlene Coding Level of Care Code Acute Code for Chg Fwd Diagnoses Acute kidney injury superimposed on chronic kidney disease N17.9; N18.9
[2023-12-15 16:19] LABS: Glucose Point of Care 106 mg/dL (70-110)
--- NOTE | 2023-12-15 19:11 | PM.PN ---
Subjective Subjective: The patient continues to have shortness of breath. No significant improvement the urine output even with the IV Lasix infusion. No fever or chills. No cough. Medications: Medication Review Details: Current Medications Albuterol/Ipratropium (Ipratropium-Albuterol 3 Ml Neb) 3 ml INHALATION Q6H PRN PRN Reason: SHORTNESS OF BREATH Amlodipine Besylate (Amlodipine 10 Mg Tablet) 10 mg PO DAILY [facility] Last Admin: 12/15/23 09:01 Dose: 10 mg Atorvastatin Calcium (Atorvastatin 40 Mg Tablet) 20 mg PO BEDTIME [facility] Last Admin: 12/14/23 21:07 Dose: 20 mg Cyclobenzaprine HCl (Cyclobenzaprine 10 Mg Tablet) 10 mg PO TID PRN PRN Reason: MUSCLE SPASMS Dextrose (Dextrose 50% Syringe 50 Ml) 25 ml IVP ONCE PRN; Protocol PRN Reason: hypoglycemia protocol Dextrose (Dextrose 50% Syringe 50 Ml) 50 ml IVP PRN PRN; Protocol PRN Reason: hypoglycemia protocol Ferrous Sulfate (Ferrous Sulfate Ec 325 Mg Tablet) 325 mg PO DAILY [facility] Last Admin: 12/15/23 09:01 Dose: 325 mg Fluoxetine HCl (Fluoxetine 20 Mg Capsule) 20 mg PO DAILY [facility] Last Admin: 12/15/23 09:01 Dose: 20 mg Heparin Sodium (Porcine) (Heparin 5,000 Unit/Ml Inj 1 Ml) 5,000 unit SUBCUT Q12H [facility] Last Admin: 12/15/23 06:09 Dose: 5,000 unit Hydralazine HCl (Hydralazine 50 Mg Tablet) 50 mg PO TID [facility] Last Admin: 12/15/23 15:17 Dose: 50 mg Hydromorphone HCl (Hydromorphone 1 Mg/Ml Inj 1 Ml) 0.5 mg IVP Q6H PRN PRN Reason: PAIN Last Admin: 12/15/23 14:12 Dose: 0.5 mg Hydroxychloroquine Sulfate (Hydroxychloroquine 200 Mg Tablet) 200 mg PO DAILY [facility] Stop: 12/17/23 09:01 Last Admin: 12/15/23 09:01 Dose: 200 mg Dextrose (D5w) 500 mls @ 0 mls/hr IV ONCE PRN; Protocol PRN Reason: Adult Acute Hypoglycemia Prot Furosemide 100 mg/ Sodium (Chloride) 50 mls @ 0 mls/hr IV .Q0M [facility]; Protocol Last Admin: 12/15/23 18:02 Dose: 20 mg/hr, 10 mls/hr Albumin Human (Albumin) 25 g in 100 mls @ 60 mls/hr IV Q8H [facility] Last Infusion: 12/15/23 17:13 Dose: Infused Insulin Glargine (Insulin Glargine 100 Units/1 Ml) 20 unit SUBCUT DAILY [facility] Last Admin: 12/15/23 08:59 Dose: 20 unit Insulin Human Lispro (Insulin Lispro 100 Unit/1 Ml) 0 unit SUBCUT WM&BEDTIME [facility]; Protocol Last Admin: 12/15/23 17:21 Dose: Not Given Isosorbide Mononitrate (Isosorbide Mononitrate Er 60 Mg Tablet) 60 mg PO DAILY [facility] Last Admin: 12/15/23 09:01 Dose: 60 mg Metolazone (Metolazone 5 Mg Tablet) 2.5 mg PO DAILY [facility] Last Admin: 12/15/23 09:00 Dose: 2.5 mg Metoprolol Tartrate (Metoprolol Tartrate 25 Mg Tablet) 25 mg PO BID@0900,2100 [facility] Last Admin: 12/15/23 09:00 Dose: 25 mg Nystatin (Nystatin Powder 30 Gm Btl) 1 applic TOPICAL BID [facility] Last Admin: 12/15/23 17:21 Dose: 1 applic Ondansetron HCl (Ondansetron 2 Mg/Ml Sdv 2 Ml) 4 mg IVP Q6H PRN PRN Reason: vomiting, or N/V if npo Oxycodone HCl (Oxycodone 5 Mg Ir Tab/Cap) 10 mg PO Q8H PRN PRN Reason: MODERATE PAIN Pantoprazole Sodium (Pantoprazole Dr 40 Mg Tablet) 40 mg PO BID [facility] Last Admin: 12/15/23 17:21 Dose: 40 mg Sodium Chloride (Sodium Chloride 0.9% 100 Ml Bag) 50 ml IV PRN PRN PRN Reason: Blood transfusion prime and flush Stop: 12/16/23 07:17 Last Admin: 12/15/23 12:13 Dose: 50 ml Trazodone HCl (Trazodone 100 Mg Tablet) 100 mg PO BEDTIME [facility] Last Admin: 12/14/23 21:08 Dose: 100 mg Vitals/I&O/Wt Last Vital Signs Temp 97.8 F 12/15/23 16:00 Pulse 72 12/15/23 16:00 Resp 16 12/15/23 16:00 BP 142/65 12/15/23 16:00 Pulse Ox 93 12/15/23 16:00 O2 Del Method Nasal Cannula 12/15/23 16:00 O2 Flow Rate 2 12/15/23 09:44 FiO2 2 12/15/23 16:00 12/15/23 12/15/23 12/15/23 06:59 14:59 22:59 Intake Total 349 / 1020 661.667 / 661.667 138.333 / 800.000 Output Total 500 / 500 Balance 349 / 490 661.667 / 661.667 -361.667 / 300.000 Weight last 48 hrs Weight 370 lb 7 oz Weight 365 lb 4 oz Physical Exam Narrative: GENERAL: The patient is alert and oriented times three.Morbidly obese. Somewhat tachypneic HEENT: No significant pallor, icterus or lymphadenopathy.Oral cavity: There are no mucous membrane lesions. NECK: Trachea appears to be central. No masses noted. No JVD or thyromegaly appreciated. RESPIRATORY: Chest is symmetrical. No intercostals muscle retraction or any accessory muscle activation. There is no chest wall tenderness. Breath sounds are heard bilaterally. Occasional expiratory wheezing no evidence of any consolidation. BREASTS: Deferred. HEART: The heart sounds are normal. No S3 or S4. No significant murmurs. No pericardial rub ABDOMEN: Abdomen is obese. Marked edema of the abdominal wall especially in the lower abdomen : Deferred. RECTAL: Deferred. LYMPHATIC: No lymphadenopathy noted in the neck. EXTREMITIES: 3+ edema both lower extremities. MUSCULOSKELETAL: No acute joint deformities or swelling SKIN: Erythematous and indurated skin of the lower abdomen NEUROPSYCHIATRIC: The patient is alert and oriented x3. Appears to be in a good mood. No tremors or rigidity noted. Urinary Catheter Management: Latex Free: Cath Placed During This Visit: yes Reason for Continuing Indwelling Catheter: Accurate Measurement of Urinary Output in Critically Ill Patients Urinary Catheter Date of Insertion: 12/12/23 Urinary Catheter Time of Insertion: 15:39 Data 12/15/23 04:21 12/15/23 04:21 Other Labs: Laboratory Last Values WBC 5.46 10^3/uL (3.29-11.43) 12/15/23 04:21 RBC 2.50 10^6/uL (3.85-5.65) L 12/15/23 04:21 Hgb 7.10 g/dL (11.27-16.99) L 12/15/23 04:21 Hct 23.4 % (36-47) L 12/15/23 04:21 MCV 93.6 fl (85-98) 12/15/23 04:21 MCH 28.4 pg (27-33) 12/15/23 04:21 MCHC 30.3 g/dL (30-55) 12/15/23 04:21 RDW 16.1 % (12.1-15.1) H 12/15/23 04:21 Plt Count 157 10^3/cmm (157-399) 12/15/23 04:21 MPV 10.5 fL (7.4-10.4) H 12/15/23 04:21 Neut % (Auto) 72.0 % 12/15/23 04:21 Lymph % (Auto) 11.4 % 12/15/23 04:21 [place] % (Auto) 10.4 % 12/15/23 04:21 Eos % (Auto) 5.3 % 12/15/23 04:21 Baso % (Auto) 0.7 % 12/15/23 04:21 Neut # (Auto) 3.93 10^3/uL (1.8-7.7) 12/15/23 04:21 Lymph # (Auto) 0.6 10^3/uL (0.8-4.8) L 12/15/23 04:21 [place] # (Auto) 0.6 10^3/uL (0.2-0.9) 12/15/23 04:21 Eos # (Auto) 0.3 10^3/uL (0.0-0.8) 12/15/23 04:21 Baso # (Auto) 0.0 10^3/uL (0.0-0.1) 12/15/23 04:21 Nucleated RBC % (auto) 0 % 12/15/23 04:21 Nucleated RBCs # 0.0 /100WBC 12/15/23 04:21 PT 15.70 SECONDS (12.1-14.9) H 12/12/23 14:58 INR 1.21 (0.8-1.2) H 12/12/23 14:58 Sodium 140 mmol/L (136-145) 12/15/23 04:21 Potassium 4.7 mmol/L (3.5-5.1) 12/15/23 04:21 Chloride 101 mmol/L (98-107) 12/15/23 04:21 Carbon Dioxide 26 mmol/L (22-29) 12/15/23 04:21 Anion Gap 17.7 (5-19) 12/15/23 04:21 BUN 75 mg/dL (8-23) H 12/15/23 04:21 Creatinine 3.3 mg/dL (0.5-0.9) H 12/15/23 04:21 GFR Calculation 14.0 mL/min (90-130) L 12/15/23 04:21 Glucose 103 mg/dL (65-115) 12/15/23 04:21 POC Glucose 106 mg/dL (70-110) 12/15/23 16:15 Calculated Osmolality 313 mOsm/kg (285-295) H 12/15/23 04:21 Calcium 9.5 mg/dL (8.5-10.5) 12/15/23 04:21 Magnesium 2.9 mg/dL (1.7-2.3) H 12/14/23 03:31 Total Bilirubin 0.3 mg/dL (0.15-1.2) 12/13/23 03:44 AST 17 U/L (0-32) 12/13/23 03:44 ALT 17 U/L (0-33) 12/13/23 03:44 Alkaline Phosphatase 89 U/L (35-105) 12/13/23 03:44 Troponin T Baseline 73 ng/L (0-10) H 12/12/23 14:58 Troponin T 120 Minute 70.53 ng/L (0-10) H 12/12/23 16:53 Delta Troponin T -2.47 ABS# (0-10) L 12/12/23 16:53 Troponin T Hi Sens 6Hr 70.55 ng/L (0-10) H 12/12/23 20:29 Troponin T Hi Sens 6Hr Delta -2.45 ng/L (0-12) L 12/12/23 20:29 NT-Pro-B Natriuret Pep 9694 pg/mL (0-125) H 12/12/23 14:58 Total Protein 6.4 g/dL (6.6-8.7) L 12/13/23 03:44 Albumin 3.5 g/dL (3.5-5.2) 12/13/23 03:44 Globulin 2.9 g/dL (1.3-4.6) 12/13/23 03:44 Urine Color Yellow (Yellow) 12/12/23 15:33 Urine Appearance Clear (CLEAR) 12/12/23 15:33 Urine pH 5 (5-7) 12/12/23 15:33 Ur Specific [place] 1.020 (1.005-1.030) 12/12/23 15:33 Urine Protein 1+ (Negative) H 12/12/23 15:33 Urine Glucose (UA) Norm (Normal) 12/12/23 15:33 Urine Ketones Negative (Negative) 12/12/23 15:33 Urine Blood Neg (Negative) 12/12/23 15:33 Urine Nitrate Negative (Negative) 12/12/23 15:33 Urine Bilirubin Neg (Negative) 12/12/23 15:33 Urine Urobilinogen Norm mg/dL (Negative) 12/12/23 15:33 Ur Leukocyte Esterase Negative (Negative) 12/12/23 15:33 Urine RBC None /hpf (0-2) 12/12/23 15:33 Urine WBC 0-4 /hpf (0-5) H 12/12/23 15:33 Ur Squamous Epith Cells 0-4 /hpf (0-5) H 12/12/23 15:33 Amorphous Sediment Not Reportable 12/12/23 15:33 Urine Bacteria Trace /hpf (NONE) 12/12/23 15:33 Hyaline Casts 0-4 /lpf H 12/12/23 15:33 Blood Type B Positive 12/15/23 07:46 Rho(D) Type Rh positive 12/15/23 07:46 Antibody Screen Negative 12/15/23 07:46 Crossmatch See Detail 12/15/23 07:46 A&P Assessment and plan (1) Acute on chronic diastolic (congestive) heart failure: The echocardiogram was reviewed. The LV ejection fraction is within normal limits. No significant improvement with the Lasix infusion. May have to consider ultrafiltration- (2) Generalized edema: No significant improvement. (3) Acute kidney injury superimposed on chronic kidney disease: Nephrology advised to continue the IV infusion for another day. (4) Chronic obstructive pulmonary disease, unspecified: May continue with the bronchodilator treatment. Qualifiers: COPD type: unspecified COPD Qualified Code(s): J44.9 - Chronic obstructive pulmonary disease, unspecified (5) Type 2 diabetes mellitus with diabetic chronic kidney disease: Aggressive management of the hyperglycemia would be appropriate Qualifiers: Diabetes mellitus mcfp insulin use: with press tender long goods use Chronic kidney disease stage: stage 4 (severe) Qualified Code(s): E11.22 - Type 2 diabetes mellitus with diabetic chronic kidney disease; N18.4 - Chronic kidney disease, stage 4 (severe); Z79.4 - skilled nursing (current) use of insulin (6) Benign hypertension: The blood pressure seems to be getting under control. (7) Anemia: May consider blood transfusion, if the hemoglobin drops below 7 Qualifiers: Anemia type: iron deficiency Iron deficiency anemia type: inadequate dietary iron intake Qualified Code(s): D50.8 - Other iron deficiency anemias Plan Based on the clinical progress, further management decisions will be made Attestations Medical Necessity Statement*: Patient requires continued hospital stay for close monitoring and further management Coding Level of Care Code 67992 Diagnoses Acute on chronic diastolic (congestive) heart failure I50.33 Generalized edema R60.1 Acute kidney injury superimposed on chronic kidney disease N17.9; N18.9 Chronic obstructive pulmonary disease, unspecified COPD type J44.9 COPD type: unspecified COPD Type 2 diabetes mellitus with stage 4 chronic kidney disease, with long-term current use of insulin E11.22; N18.4; Z79.4 Diabetes mellitus press tender long goods insulin use: with press tender long goods use Chronic kidney disease stage: stage 4 (severe) Benign hypertension I10 Iron deficiency anemia secondary to inadequate dietary iron intake D50.8 Anemia type: iron deficiency Iron deficiency anemia type: inadequate dietary iron intake
[2023-12-15] MEDS: cyclobenzaprine 10 mg Tablet PO (19:33)
[2023-12-15] MEDS: atorvastatin 40 mg Tablet 20 MG PO (20:12)
[2023-12-15] MEDS: trazodone 100 mg Tablet PO (20:12)
[2023-12-15 21:12] LABS: Glucose Point of Care 129 mg/dL (70-110)
[2023-12-16] VITALS (12 sets, daily range): BP systolic 138–163; BP diastolic 60–77; PULSE 63–70; RESP 10–23; TEMP 36.4–37; O2SAT 93–98
[2023-12-16] MEDS: FUROsemide 100 MG in sodium chloride 0.9% 40 ML 10 MG IV ×3 (00:08→10:45)
[2023-12-16] MEDS: HYDROmorphone 1 mg/mL INJ 1 mL 0.5 MG IVP ×2 (03:09→21:06)
[2023-12-16 05:19] LABS: Basophils % 0.4 %; Eosinophils # 0.3 10^3/uL (0.0-0.8); Eosinophils % 3.9 %; Hematocrit 27.4 % (36-47); Lymphocytes # 0.6 10^3/uL (0.8-4.8); Lymphocytes % 9.2 %; Mean Corpuscular HGB Conc 30.3 g/dL (30-55); Mean Corpuscular Hemoglobin 28.5 pg (27-33); Mean Corpuscular Volume 94.2 fl (85-98); Mean Platelet Volume 10.4 fL (7.4-10.4); Monocytes # 0.7 10^3/uL (0.2-0.9); Monocytes % 10.7 %; Neutrophils # 5.09 10^3/uL (1.8-7.7); Neutrophils % 75.4 %; Nucleated Red Blood Cells % 0 %; Platelet Count 157 10^3/cmm (157-399); Red Blood Count 2.91 10^6/uL (3.85-5.65); Red Cell Distribution Width 16.4 % (12.1-15.1); White Blood Count 6.75 10^3/uL (3.29-11.43)
[2023-12-16] MEDS: albumin 25 G/100 ML BAG 60 G IV ×3 (05:26→21:04)
[2023-12-16 05:47] LABS: Anion Gap 17.6 (5-19); Blood Urea Nitrogen 77 mg/dL (8-23); Calcium 9.6 mg/dL (8.5-10.5); Carbon Dioxide 26 mmol/L (22-29); Chloride 102 mmol/L (98-107); Glomerular Filtration Rate 13.5 mL/min (90-130); Glucose 105 mg/dL (65-115); Magnesium 2.8 mg/dL (1.7-2.3); Osmolality Calculated 315 mOsm/kg (285-295); Potassium 4.6 mmol/L (3.5-5.1); Sodium 141 mmol/L (136-145)
[2023-12-16] MEDS: heparin 5,000 unit/mL INJ 1 mL 5000 UNIT SUBCUT ×2 (06:19→17:46)
[2023-12-16 06:33] LABS: Glucose Point of Care 109 mg/dL (70-110)
[2023-12-16] MEDS: insulin glargine 100 units/1 mL 20 UNIT SUBCUT (08:52)
[2023-12-16] MEDS: cyclobenzaprine 10 mg Tablet PO ×2 (08:53→17:48)
[2023-12-16] MEDS: ferrous sulfate EC 325 mg Tablet PO (08:53)
[2023-12-16] MEDS: pantoprazole DR 40 mg Tablet PO ×2 (08:53→17:48)
[2023-12-16] MEDS: amlodipine 10 mg Tablet PO (08:53)
[2023-12-16] MEDS: isosorbide mononitrate ER 60 mg Tablet PO (08:53)
[2023-12-16] MEDS: metOLazone 5 MG Tablet 2.5 MG PO ×2 (08:53→17:46)
[2023-12-16] MEDS: hydroxychloroquine 200 mg Tablet PO (08:54)
[2023-12-16] MEDS: metoprolol tartrate 25 mg Tablet PO ×2 (08:54→21:04)
[2023-12-16] MEDS: fluoxetine 20 mg Capsule PO (08:54)
[2023-12-16] MEDS: hyDRALAzine 50 mg Tablet PO ×3 (08:54→21:04)
[2023-12-16] MEDS: nystatin powder 30 gm Btl 1 APPLIC TOPICAL ×2 (08:55→17:49)
[2023-12-16] MEDS: ipratropium-albuterol 3 mL Neb INHALATION (09:18)
[2023-12-16] MEDS: cetylpyridinium Lozenge 1 EACH MUCOUS MEM ×2 (09:39→15:30)
[2023-12-16] MEDS: sodium chloride 0.9% 100 mL Bag 50 ML IV (10:25)
[2023-12-16 10:51] LABS: Glucose Point of Care 121 mg/dL (70-110)
--- NOTE | 2023-12-16 11:10 | P.PN_ITS ---
Documented by User: SARI Alvarez STDNT 12/16/23 13:07 Subjective 2 Subjective: Jennifer Stratton is a 68-year-old female with acute exacerbation congestive heart failure with reduced ejection fraction with stage III chronic kidney disease secondary to diabetes mellitus type 2, significant edema lower extremities and anemia, past medical history IBS, positive GIFTY, stroke affecting right side, cervical degenerative disc disease, hypertension and COPD. Today patient is resting in bed on 2 L per nasal cannula in no acute distress. She complains of cramping and restless legs, saying her legs itch and tingle make her want to jump out of bed. Reports mild abdominal pain and distention, without nausea. She has not had a bowel movement in 3 days. she has eaten very little today. Medications: Reviewed: Yes Vitals/I&O/Wt Last Vital Signs Temp 97.6 F 12/16/23 08:00 Pulse 64 12/16/23 09:23 Resp 18 12/16/23 09:23 BP 148/64 12/16/23 08:00 Pulse Ox 96 12/16/23 09:23 O2 Del Method Nasal Cannula 12/16/23 09:23 O2 Flow Rate 2 12/16/23 09:23 FiO2 2 12/15/23 16:00 12/15/23 12/16/23 12/16/23 22:59 06:59 14:59 Intake Total 138.333 / 800.000 500 / 1300.000 150 / 150 Output Total 500 / 500 400 / 900 Balance -361.667 / 300.000 100 / 400.000 150 / 150 Weight last 48 hrs Weight 368 lb Weight 370 lb 7 oz Physical Exam 2 Narrative: General patient is alert and oriented to person place and time in no apparent distress, pleasant afebrile HEENT normocephalic atraumatic no lymphadenopathy no thyromegaly neck supple Respiratory breath sounds decreased bilaterally no wheezes rubs or rhonchi, no cough or congestion Cardiac regular rhythm regular rate heart sounds distant, 1+ pulses in the left lower extremity, right radial pulse 2+ Abdomen normal bowel sounds, obese, distended, edema noted in the lower abdomen especially on the left, abdominal scars with no adipose tissue from previous surgeries noted below the umbilicus, no tenderness to palpation deferred Extremities 3+ edema bilateral lower extremities, 4/5 strength throughout, no pain, normal sensation Neurologic decreased vision on the right, decreased mobility of right upper extremity Urinary Catheter Management: Latex Free: Cath Placed During This Visit: yes Reason for Continuing Indwelling Catheter: Accurate Measurement of Urinary Output in Critically Ill Patients Urinary Catheter Date of Insertion: 12/12/23 Urinary Catheter Time of Insertion: 15:39 Data 12/16/23 05:11 12/16/23 05:11 A&P Assessment and plan (1) Acute exacerbation of congestive heart failure: Echocardiogram showed ejection fraction within normal limits right ventricular dilation bilateral atrial enlarged tricuspid regurgitation no pericardial Normal LVEF. Patient continues to exhibit poor diuresis with Lasix regimen. May have to consider ultrafiltrate As per #2 Cardiology consultation. Recommendations appreciated. Salt restriction Fluid restriction 1500 ml CBC, CMP, magnesium daily Qualifiers: Heart failure type: unspecified Qualified Code(s): I50.9 - Heart failure, unspecified (2) ROSEMARIE (acute kidney injury): Nephrology consultation. Recommendations appreciated. Lowered lantus dosing to 20 units. Patient was placed on Lasix drip and scheduled albumin Dec 14, but this was not titrated up due to communication errors. She did not have effective diuresis. Nurse is going to be informing nephrology for instructions regarding the furosemide drip titration. Metolazone 2.5 was also added daily. Kidney function this a.m. remained unchanged. Urine output last night on the lower side of 500. I CBC, BMP, magnesium tomorrow (3) Anemia: Slight decrease to 7.1 hemoglobin this a.m. Likely related to chronic kidney disease, autoimmune disease. Transfusion 1 unit packed red blood cells ordered Qualifiers: Anemia type: iron deficiency Iron deficiency anemia type: inadequate dietary iron intake Qualified Code(s): D50.8 - Other iron deficiency anemias (4) Type 2 diabetes mellitus with diabetic chronic kidney disease: Sliding scale insulin Continue long-acting insulin Consistent carb diet Qualifiers: Chronic kidney disease stage: stage 4 (severe) Diabetes mellitus carpenter supervisor insulin use: with carpenter supervisor use Qualified Code(s): E11.22 - Type 2 diabetes mellitus with diabetic chronic kidney disease; N18.4 - Chronic kidney disease, stage 4 (severe); Z79.4 - safety patrol officer (current) use of insulin Plan Plan as stated above. Patient has new onset constipation likely secondary to oxycodone and Flexeril combination Continue oxycodone 10mg and flexeril 10mg consider decreasing dose oxycodone if patient does not have a bowel movement today Continue PT/OT treatment. Will continue fluid and salt restriction. Continue Lasix drip as well as scheduled albumin. Metaxalone was added yesterday by nephrology. Monitor labs in AM. Full code Heparin for DVT prophylaxis Attestations 2 Medical Necessity Statement*: Patient should continue in the hospital for ROSEMARIE to prevent worsening of edema and congestive heart failure until adequate diuresis is established. Coding Level of Care Code 17789 Diagnoses Acute exacerbation of congestive heart failure I50.9 Heart failure type: unspecified ROSEMARIE (acute kidney injury) N17.9 Iron deficiency anemia secondary to inadequate dietary iron intake D50.8 Anemia type: iron deficiency Iron deficiency anemia type: inadequate dietary iron intake Type 2 diabetes mellitus with stage 4 chronic kidney disease, with long-term current use of insulin E11.22; N18.4; Z79.4 Chronic kidney disease stage: stage 4 (severe) Diabetes mellitus care home insulin use: with carpenter supervisor use Time Spent (min) 35 Documented by User: Brett Raphael MD 12/16/23 13:34 Physical Exam 2 Narrative: General patient is alert and oriented to person place and time in no apparent distress, pleasant afebrile, currently on 2 L of oxygen HEENT normocephalic atraumatic no lymphadenopathy no thyromegaly neck supple Respiratory breath sounds decreased bilaterally no wheezes rubs or rhonchi, no cough or congestion Cardiac regular rhythm regular rate heart sounds distant, 1+ pulses in the left lower extremity, right radial pulse 2+ Abdomen normal bowel sounds, obese, distended, edema noted in the lower abdomen especially on the left, abdominal scars with no adipose tissue from previous surgeries noted below the umbilicus, no tenderness to palpation deferred Extremities 3+ edema bilateral lower extremities, 4/5 strength throughout, no pain, normal sensation Neurologic decreased vision on the right, decreased mobility of right upper extremity Urinary Catheter Management: Latex Free: Cath Placed During This Visit: yes Data 12/16/23 05:11 12/16/23 05:11 A&P Assessment and plan (1) Acute exacerbation of congestive heart failure: Echocardiogram showed ejection fraction within normal limits right ventricular dilation bilateral atrial enlarged tricuspid regurgitation no pericardial Normal LVEF. Patient continues to exhibit poor diuresis with Lasix regimen. Nephrology evaluating for appropriate treatment. They are on board and adjusting Lasix drip. Cardiology consultation. Recommendations appreciated. Salt restriction Fluid restriction 1500 ml CBC, CMP, magnesium daily Discussed with nephrology. Will increase Lasix to 40 mg an hour, increase Zaroxolyn to 2.5 mg twice daily. Keep n.p.o. after midnight in case ultrafiltration might have to be done. Qualifiers: Heart failure type: unspecified Qualified Code(s): I50.9 - Heart failure, unspecified (2) ROSEMARIE (acute kidney injury): Nephrology consultation. Recommendations appreciated. Lowered lantus dosing to 20 units. Metolazone 2.5 was also added daily. Kidney function this a.m. remained unchanged. Urine output over the last 24 hours approximately 900 CBC, BMP, magnesium tomorrow (3) Anemia: Hemoglobin 8.3, improved following transfusion of 1 unit packed red blood cells on December 15 Anemia likely related to chronic kidney disease, autoimmune disease. Qualifiers: Anemia type: iron deficiency Iron deficiency anemia type: inadequate dietary iron intake Qualified Code(s): D50.8 - Other iron deficiency anemias (4) Type 2 diabetes mellitus with diabetic chronic kidney disease: Qualifiers: Chronic kidney disease stage: stage 4 (severe) Diabetes mellitus care home insulin use: with care home use Qualified Code(s): E11.22 - Type 2 diabetes mellitus with diabetic chronic kidney disease; N18.4 - Chronic kidney disease, stage 4 (severe); Z79.4 - detention (current) use of insulin Plan Constipation is multifactorial. Add senna 2 tablets twice daily, monitor for bowel movement. Full code Heparin for DVT prophylaxis Attestations 2 Medical Necessity Statement*: Patient needs continued hospitalization for ROSEMARIE to prevent worsening of edema and congestive heart failure until adequate diuresis is established for anasarca Diagnoses Acute exacerbation of congestive heart failure I50.9 Heart failure type: unspecified ROSEMARIE (acute kidney injury) N17.9 Iron deficiency anemia secondary to inadequate dietary iron intake D50.8 Anemia type: iron deficiency Iron deficiency anemia type: inadequate dietary iron intake Type 2 diabetes mellitus with stage 4 chronic kidney disease, with long-term current use of insulin E11.22; N18.4; Z79.4 Chronic kidney disease stage: stage 4 (severe) Diabetes mellitus care home insulin use: with care home use Time Spent (min) 35
[2023-12-16] MEDS: oxyCODONE 5 mg IR Tab/Cap 10 MG PO (11:42)
--- NOTE | 2023-12-16 11:47 | PC.SOCIAL ---
IMM Updated Updated pt on IMM. No questions voiced. Provided pt a copy. Initialed, dated, & timed copy in chart.
--- NOTE | 2023-12-16 14:30 | P.PN_ITS ---
Subjective 2 Subjective: Patient is feeling little better. She had a total of 900 cc of urine output since yesterday morning. Still has significant generalized edema. No fever or chills. No cough. Has some improvement of the shortness of breath. Vitals are stable. No new symptoms. She received 1 unit of blood transfusion this morning. The hemoglobin currently is 8.4. No signs of ongoing bleeding Medications: Medication Review Details: Current Medications Albuterol/Ipratropium (Ipratropium-Albuterol 3 Ml Neb) 3 ml INHALATION Q6H PRN PRN Reason: SHORTNESS OF BREATH Last Admin: 12/16/23 09:18 Dose: 3 ml Amlodipine Besylate (Amlodipine 10 Mg Tablet) 10 mg PO DAILY [facility] Last Admin: 12/16/23 08:53 Dose: 10 mg Atorvastatin Calcium (Atorvastatin 40 Mg Tablet) 20 mg PO BEDTIME [facility] Last Admin: 12/15/23 20:12 Dose: 20 mg Benzocaine (Cetylpyridinium Lozenge) 1 each MUCOUS MEM Q2H PRN PRN Reason: SORE THROAT Last Admin: 12/16/23 09:39 Dose: 1 each Cyclobenzaprine HCl (Cyclobenzaprine 10 Mg Tablet) 10 mg PO TID PRN PRN Reason: MUSCLE SPASMS Last Admin: 12/16/23 08:53 Dose: 10 mg Dextrose (Dextrose 50% Syringe 50 Ml) 25 ml IVP ONCE PRN; Protocol PRN Reason: hypoglycemia protocol Dextrose (Dextrose 50% Syringe 50 Ml) 50 ml IVP PRN PRN; Protocol PRN Reason: hypoglycemia protocol Ferrous Sulfate (Ferrous Sulfate Ec 325 Mg Tablet) 325 mg PO DAILY [facility] Last Admin: 12/16/23 08:53 Dose: 325 mg Fluoxetine HCl (Fluoxetine 20 Mg Capsule) 20 mg PO DAILY [facility] Last Admin: 12/16/23 08:54 Dose: 20 mg Heparin Sodium (Porcine) (Heparin 5,000 Unit/Ml Inj 1 Ml) 5,000 unit SUBCUT Q12H [facility] Last Admin: 12/16/23 06:19 Dose: 5,000 unit Hydralazine HCl (Hydralazine 50 Mg Tablet) 50 mg PO TID [facility] Last Admin: 12/16/23 08:54 Dose: 50 mg Hydromorphone HCl (Hydromorphone 1 Mg/Ml Inj 1 Ml) 0.5 mg IVP Q6H PRN PRN Reason: PAIN Last Admin: 12/16/23 03:09 Dose: 0.5 mg Hydroxychloroquine Sulfate (Hydroxychloroquine 200 Mg Tablet) 200 mg PO DAILY [facility] Stop: 12/17/23 09:01 Last Admin: 12/16/23 08:54 Dose: 200 mg Dextrose (D5w) 500 mls @ 0 mls/hr IV ONCE PRN; Protocol PRN Reason: Adult Acute Hypoglycemia Prot Furosemide 100 mg/ Sodium (Chloride) 50 mls @ 0 mls/hr IV .Q0M [facility]; Protocol Last Titration: 12/16/23 13:46 Dose: 40 mg/hr, 20 mls/hr Albumin Human (Albumin) 25 g in 100 mls @ 60 mls/hr IV Q8H [facility] Last Admin: 12/16/23 13:51 Dose: 60 mls/hr Insulin Glargine (Insulin Glargine 100 Units/1 Ml) 20 unit SUBCUT DAILY [facility] Last Admin: 12/16/23 08:52 Dose: 20 unit Insulin Human Lispro (Insulin Lispro 100 Unit/1 Ml) 0 unit SUBCUT WM&BEDTIME [facility]; Protocol Last Admin: 12/16/23 11:41 Dose: Not Given Isosorbide Mononitrate (Isosorbide Mononitrate Er 60 Mg Tablet) 60 mg PO DAILY [facility] Last Admin: 12/16/23 08:53 Dose: 60 mg Metolazone (Metolazone 5 Mg Tablet) 2.5 mg PO BID [facility] Metoprolol Tartrate (Metoprolol Tartrate 25 Mg Tablet) 25 mg PO BID@0900,2100 [facility] Last Admin: 12/16/23 08:54 Dose: 25 mg Nystatin (Nystatin Powder 30 Gm Btl) 1 applic TOPICAL BID [facility] Last Admin: 12/16/23 08:55 Dose: 1 applic Ondansetron HCl (Ondansetron 2 Mg/Ml Sdv 2 Ml) 4 mg IVP Q6H PRN PRN Reason: vomiting, or N/V if npo Oxycodone HCl (Oxycodone 5 Mg Ir Tab/Cap) 10 mg PO Q8H PRN PRN Reason: MODERATE PAIN Last Admin: 12/16/23 11:42 Dose: 10 mg Pantoprazole Sodium (Pantoprazole Dr 40 Mg Tablet) 40 mg PO BID [facility] Last Admin: 12/16/23 08:53 Dose: 40 mg Senna/Docusate Sodium (Sennosides-Docusate Tablet) 2 tab PO BID [facility] Trazodone HCl (Trazodone 100 Mg Tablet) 100 mg PO BEDTIME [facility] Last Admin: 12/15/23 20:12 Dose: 100 mg Vitals/I&O/Wt Last Vital Signs Temp 97.8 F 12/16/23 12:00 Pulse 66 12/16/23 12:00 Resp 23 H 12/16/23 12:00 BP 138/60 12/16/23 12:00 Pulse Ox 95 12/16/23 12:00 O2 Del Method Nasal Cannula 12/16/23 12:00 O2 Flow Rate 2 12/16/23 09:23 FiO2 2 12/15/23 16:00 12/15/23 12/16/23 12/16/23 22:59 06:59 14:59 Intake Total 138.333 / 800.000 500 / 1300.000 300.167 / 300.167 Output Total 500 / 500 400 / 900 Balance -361.667 / 300.000 100 / 400.000 300.167 / 300.167 Weight last 48 hrs Weight 368 lb Weight 370 lb 7 oz Physical Exam 2 Narrative: GENERAL: The patient is alert and oriented times three.Morbidly obese. Somewhat tachypneic HEENT: No significant pallor, icterus or lymphadenopathy.Oral cavity: There are no mucous membrane lesions. NECK: Trachea appears to be central. No masses noted. No JVD or thyromegaly appreciated. RESPIRATORY: Chest is symmetrical. No intercostals muscle retraction or any accessory muscle activation. There is no chest wall tenderness. Breath sounds are heard bilaterally. Occasional expiratory wheezing no evidence of any consolidation. BREASTS: Deferred. HEART: The heart sounds are normal. No S3 or S4. No significant murmurs. No pericardial rub ABDOMEN: Abdomen is obese. Marked edema of the abdominal wall especially in the lower abdomen : Deferred. RECTAL: Deferred. LYMPHATIC: No lymphadenopathy noted in the neck. EXTREMITIES: 3+ edema both lower extremities. MUSCULOSKELETAL: No acute joint deformities or swelling SKIN: Erythematous and indurated skin of the lower abdomen NEUROPSYCHIATRIC: The patient is alert and oriented x3. Appears to be in a good mood. No tremors or rigidity noted. Urinary Catheter Management: Latex Free: Cath Placed During This Visit: yes Reason for Continuing Indwelling Catheter: Accurate Measurement of Urinary Output in Critically Ill Patients Urinary Catheter Date of Insertion: 12/12/23 Urinary Catheter Time of Insertion: 15:39 Data 12/16/23 05:11 12/16/23 05:11 Other Labs: Laboratory Last Values WBC 6.75 10^3/uL (3.29-11.43) 12/16/23 05:11 RBC 2.91 10^6/uL (3.85-5.65) L 12/16/23 05:11 Hgb 8.30 g/dL (11.27-16.99) L 12/16/23 05:11 Hct 27.4 % (36-47) L 12/16/23 05:11 MCV 94.2 fl (85-98) 12/16/23 05:11 MCH 28.5 pg (27-33) 12/16/23 05:11 MCHC 30.3 g/dL (30-55) 12/16/23 05:11 RDW 16.4 % (12.1-15.1) H 12/16/23 05:11 Plt Count 157 10^3/cmm (157-399) 12/16/23 05:11 MPV 10.4 fL (7.4-10.4) 12/16/23 05:11 Neut % (Auto) 75.4 % 12/16/23 05:11 Lymph % (Auto) 9.2 % 12/16/23 05:11 [place] % (Auto) 10.7 % 12/16/23 05:11 Eos % (Auto) 3.9 % 12/16/23 05:11 Baso % (Auto) 0.4 % 12/16/23 05:11 Neut # (Auto) 5.09 10^3/uL (1.8-7.7) 12/16/23 05:11 Lymph # (Auto) 0.6 10^3/uL (0.8-4.8) L 12/16/23 05:11 [place] # (Auto) 0.7 10^3/uL (0.2-0.9) 12/16/23 05:11 Eos # (Auto) 0.3 10^3/uL (0.0-0.8) 12/16/23 05:11 Baso # (Auto) 0.0 10^3/uL (0.0-0.1) 12/16/23 05:11 Nucleated RBC % (auto) 0 % 12/16/23 05:11 Nucleated RBCs # 0.0 /100WBC 12/16/23 05:11 PT 15.70 SECONDS (12.1-14.9) H 12/12/23 14:58 INR 1.21 (0.8-1.2) H 12/12/23 14:58 Sodium 141 mmol/L (136-145) 12/16/23 05:11 Potassium 4.6 mmol/L (3.5-5.1) 12/16/23 05:11 Chloride 102 mmol/L (98-107) 12/16/23 05:11 Carbon Dioxide 26 mmol/L (22-29) 12/16/23 05:11 Anion Gap 17.6 (5-19) 12/16/23 05:11 BUN 77 mg/dL (8-23) H 12/16/23 05:11 Creatinine 3.4 mg/dL (0.5-0.9) H 12/16/23 05:11 GFR Calculation 13.5 mL/min (90-130) L 12/16/23 05:11 Glucose 105 mg/dL (65-115) 12/16/23 05:11 POC Glucose 121 mg/dL (70-110) H 12/16/23 10:36 Calculated Osmolality 315 mOsm/kg (285-295) H 12/16/23 05:11 Calcium 9.6 mg/dL (8.5-10.5) 12/16/23 05:11 Magnesium 2.8 mg/dL (1.7-2.3) H 12/16/23 05:11 Total Bilirubin 0.3 mg/dL (0.15-1.2) 12/13/23 03:44 AST 17 U/L (0-32) 12/13/23 03:44 ALT 17 U/L (0-33) 12/13/23 03:44 Alkaline Phosphatase 89 U/L (35-105) 12/13/23 03:44 Troponin T Baseline 73 ng/L (0-10) H 12/12/23 14:58 Troponin T 120 Minute 70.53 ng/L (0-10) H 12/12/23 16:53 Delta Troponin T -2.47 ABS# (0-10) L 12/12/23 16:53 Troponin T Hi Sens 6Hr 70.55 ng/L (0-10) H 12/12/23 20:29 Troponin T Hi Sens 6Hr Delta -2.45 ng/L (0-12) L 12/12/23 20:29 NT-Pro-B Natriuret Pep 9694 pg/mL (0-125) H 12/12/23 14:58 Total Protein 6.4 g/dL (6.6-8.7) L 12/13/23 03:44 Albumin 3.5 g/dL (3.5-5.2) 12/13/23 03:44 Globulin 2.9 g/dL (1.3-4.6) 12/13/23 03:44 Urine Color Yellow (Yellow) 12/12/23 15:33 Urine Appearance Clear (CLEAR) 12/12/23 15:33 Urine pH 5 (5-7) 12/12/23 15:33 Ur Specific [place] 1.020 (1.005-1.030) 12/12/23 15:33 Urine Protein 1+ (Negative) H 12/12/23 15:33 Urine Glucose (UA) Norm (Normal) 12/12/23 15:33 Urine Ketones Negative (Negative) 12/12/23 15:33 Urine Blood Neg (Negative) 12/12/23 15:33 Urine Nitrate Negative (Negative) 12/12/23 15:33 Urine Bilirubin Neg (Negative) 12/12/23 15:33 Urine Urobilinogen Norm mg/dL (Negative) 12/12/23 15:33 Ur Leukocyte Esterase Negative (Negative) 12/12/23 15:33 Urine RBC None /hpf (0-2) 12/12/23 15:33 Urine WBC 0-4 /hpf (0-5) H 12/12/23 15:33 Ur Squamous Epith Cells 0-4 /hpf (0-5) H 12/12/23 15:33 Amorphous Sediment Not Reportable 12/12/23 15:33 Urine Bacteria Trace /hpf (NONE) 12/12/23 15:33 Hyaline Casts 0-4 /lpf H 12/12/23 15:33 Blood Type B Positive 12/15/23 07:46 Rho(D) Type Rh positive 12/15/23 07:46 Antibody Screen Negative 12/15/23 07:46 Crossmatch See Detail 12/15/23 07:46 A&P Assessment and plan (1) Acute on chronic diastolic (congestive) heart failure: The echocardiogram was reviewed. The LV ejection fraction is within normal limits. Slow improvement in the diuresis. Will continue with the nephrology recommendation. (2) Generalized edema: Multifactorial. Worsening kidney function, anemia, lack of mobility, diastolic heart failure, etc. (3) Acute kidney injury superimposed on chronic kidney disease: Management as per nephrology service (4) Chronic obstructive pulmonary disease, unspecified: Patient is on bronchodilator treatment. Currently on 2 L of oxygen by nasal cannula. Oxygen saturation seems to be appropriate. Qualifiers: COPD type: unspecified COPD Qualified Code(s): J44.9 - Chronic obstructive pulmonary disease, unspecified (5) Type 2 diabetes mellitus with diabetic chronic kidney disease: Aggressive management of the hyperglycemia would be appropriate Qualifiers: Diabetes mellitus [facility] insulin use: with parts counterman use Chronic kidney disease stage: stage 4 (severe) Qualified Code(s): E11.22 - Type 2 diabetes mellitus with diabetic chronic kidney disease; N18.4 - Chronic kidney disease, stage 4 (severe); Z79.4 - group home (current) use of insulin (6) Benign hypertension: Currently he is a stage II. Will try to optimize antihypertensive medications. (7) Anemia: Status post blood transfusion x 1. Hemoglobin seems to be holding up. Will continue the close monitoring. Qualifiers: Anemia type: iron deficiency Iron deficiency anemia type: inadequate dietary iron intake Qualified Code(s): D50.8 - Other iron deficiency anemias Plan Based on the clinical progress, further recommendations will be made. Attestations 2 Medical Necessity Statement*: Deferred to the primary Coding Level of Care Code Acute Code for Chg Fwd Diagnoses Acute on chronic diastolic (congestive) heart failure I50.33 Generalized edema R60.1 Acute kidney injury superimposed on chronic kidney disease N17.9; N18.9 Chronic obstructive pulmonary disease, unspecified COPD type J44.9 COPD type: unspecified COPD Type 2 diabetes mellitus with stage 4 chronic kidney disease, with long-term current use of insulin E11.22; N18.4; Z79.4 Diabetes mellitus parts counterman insulin use: with parts counterman use Chronic kidney disease stage: stage 4 (severe) Benign hypertension I10 Iron deficiency anemia secondary to inadequate dietary iron intake D50.8 Anemia type: iron deficiency Iron deficiency anemia type: inadequate dietary iron intake
[2023-12-16] MEDS: FUROsemide 100 MG in sodium chloride 0.9% 40 ML 20 MG IV ×3 (15:33→21:37)
--- NOTE | 2023-12-16 15:37 | PM.PN ---
Subjective Subjective: c/o SOB Medications: Reviewed: Yes Vitals/I&O/Wt Last Vital Signs Temp 97.8 F 12/16/23 12:00 Pulse 66 12/16/23 12:00 Resp 23 H 12/16/23 12:00 BP 138/60 12/16/23 12:00 Pulse Ox 95 12/16/23 12:00 O2 Del Method Nasal Cannula 12/16/23 12:00 O2 Flow Rate 2 12/16/23 09:23 FiO2 2 12/15/23 16:00 12/16/23 12/16/23 12/16/23 06:59 14:59 22:59 Intake Total 500 / 1300.000 320.000 / 320.000 Output Total 400 / 900 450 / 450 Balance 100 / 400.000 320.000 / 320.000 -450 / -130.000 Weight last 48 hrs Weight 166.922 kg Weight 168.028 kg Physical Exam Narrative: Awake alert, no acute distress 2-3+ pedal edema Urinary Catheter Management: Latex Free: Cath Placed During This Visit: yes Reason for Continuing Indwelling Catheter: Accurate Measurement of Urinary Output in Critically Ill Patients Urinary Catheter Date of Insertion: 12/12/23 Urinary Catheter Time of Insertion: 15:39 Data 12/16/23 05:11 12/16/23 05:11 A&P Assessment and plan (1) Acute kidney injury superimposed on chronic kidney disease: Plan 1. Acute on chronic kidney disease stage III: Patient's baseline creatinine of 1.5-1.9, has multiple ROSEMARIE's in the past. Now presents with volume overload and creatinine of 2.8 worsened to 3.4 today. -on Lasix drip with IV albumin every 8 hours, on metolazone 2.5 daily--> inadequate diuresis so far , Increase lasix gtt to 40 mg /hr , change metolazine to 2.5 mg bid - keep NPO after midnight --> if betty dequate diuresis , will need HD /ultrafiltration -2 g sodium restriction and 1500 mL fluid restriction -Will check urine electrolytes. 2. Anemia: s/p transfusion ,will add BOUCHRA 3. Diastolic CHF, diuresis as above, echo 4. Acute on chronic respiratory failure, multifactorial, patient has history of COPD, LIZ and CHF 5. History of diabetes Patient evaluated using audiovisual cart. Time spent 20 minutes. Attestations Medical Necessity Statement*: PER [facility] Coding Level of Care Code Acute Code for Chg Fwd Diagnoses Acute kidney injury superimposed on chronic kidney disease N17.9; N18.9
[2023-12-16 16:58] LABS: Glucose Point of Care 132 mg/dL (70-110)
[2023-12-16] MEDS: sennosides-docusate Tablet 2 TAB PO (17:50)
[2023-12-16 20:36] LABS: Glucose Point of Care 130 mg/dL (70-110)
[2023-12-16] MEDS: trazodone 100 mg Tablet PO (21:04)
[2023-12-16] MEDS: atorvastatin 40 mg Tablet 20 MG PO (21:04)
[2023-12-17] VITALS (16 sets, daily range): BP systolic 114–173; BP diastolic 53–82; PULSE 61–72; RESP 14–24; TEMP 36.4–36.9; O2SAT 90–98
[2023-12-17] MEDS: FUROsemide 100 MG in sodium chloride 0.9% 40 ML 20 MG IV ×3 (00:15→05:34)
[2023-12-17 04:09] LABS: Basophils # 0.1 10^3/uL (0.0-0.1); Basophils % 0.8 %; Eosinophils # 0.3 10^3/uL (0.0-0.8); Eosinophils % 4.6 %; Hematocrit 26.5 % (36-47); Lymphocytes # 0.6 10^3/uL (0.8-4.8); Lymphocytes % 9.8 %; Mean Corpuscular HGB Conc 30.9 g/dL (30-55); Mean Corpuscular Hemoglobin 28.7 pg (27-33); Mean Corpuscular Volume 92.7 fl (85-98); Monocytes # 0.6 10^3/uL (0.2-0.9); Monocytes % 9.5 %; Neutrophils # 4.57 10^3/uL (1.8-7.7); Neutrophils % 74.8 %; Nucleated Red Blood Cells % 0 %; Platelet Count 143 10^3/cmm (157-399); Red Blood Count 2.86 10^6/uL (3.85-5.65); Red Cell Distribution Width 15.9 % (12.1-15.1); White Blood Count 6.11 10^3/uL (3.29-11.43)
[2023-12-17 04:29] LABS: Alanine Aminotransferase 12 U/L (0-33); Albumin Level 4.3 g/dL (3.5-5.2); Alkaline Phosphatase 71 U/L (35-105); Anion Gap 17.1 (5-19); Aspartate Amino Transferase 14 U/L (0-32); Blood Urea Nitrogen 80 mg/dL (8-23); Calcium 9.4 mg/dL (8.5-10.5); Carbon Dioxide 27 mmol/L (22-29); Chloride 100 mmol/L (98-107); Globulin 2.3 g/dL (1.3-4.6); Glomerular Filtration Rate 12.7 mL/min (90-130); Glucose 118 mg/dL (65-115); Magnesium 2.8 mg/dL (1.7-2.3); Osmolality Calculated 315 mOsm/kg (285-295); Potassium 4.1 mmol/L (3.5-5.1); Sodium 140 mmol/L (136-145); Total Bilirubin 0.4 mg/dL (0.15-1.2); Total Protein 6.6 g/dL (6.6-8.7)
[2023-12-17] MEDS: albumin 25 G/100 ML BAG 60 G IV ×3 (05:17→21:36)
[2023-12-17 06:32] LABS: Glucose Point of Care 120 mg/dL (70-110)
[2023-12-17] MEDS: heparin 5,000 unit/mL INJ 1 mL 5000 UNIT SUBCUT ×2 (06:36→17:40)
[2023-12-17] MEDS: ipratropium-albuterol 3 mL Neb INHALATION (08:15)
[2023-12-17] MEDS: amlodipine 10 mg Tablet PO (08:37)
[2023-12-17] MEDS: fluoxetine 20 mg Capsule PO (08:37)
[2023-12-17] MEDS: hyDRALAzine 50 mg Tablet PO ×3 (08:38→21:36)
[2023-12-17] MEDS: ferrous sulfate EC 325 mg Tablet PO (08:38)
[2023-12-17] MEDS: cetylpyridinium Lozenge 1 EACH MUCOUS MEM (08:38)
[2023-12-17] MEDS: cyclobenzaprine 10 mg Tablet PO (08:38)
[2023-12-17] MEDS: hydroxychloroquine 200 mg Tablet PO (08:38)
[2023-12-17] MEDS: metOLazone 5 MG Tablet 2.5 MG PO (08:43)
[2023-12-17] MEDS: metoprolol tartrate 25 mg Tablet PO (08:43)
[2023-12-17] MEDS: sennosides-docusate Tablet 2 TAB PO ×2 (08:44→17:41)
[2023-12-17] MEDS: pantoprazole DR 40 mg Tablet PO ×2 (08:44→17:41)
[2023-12-17] MEDS: isosorbide mononitrate ER 60 mg Tablet PO (08:45)
[2023-12-17] MEDS: nystatin powder 30 gm Btl 1 APPLIC TOPICAL (08:45)
--- NOTE | 2023-12-17 08:46 | P.PN_ITS ---
Subjective 2 Subjective: c/o SOB no adequate UOP on lasix gtt Medications: Reviewed: Yes Vitals/I&O/Wt Last Vital Signs Temp 97.9 F 12/17/23 07:06 Pulse 61 12/17/23 08:21 Resp 20 H 12/17/23 08:15 BP 124/55 12/17/23 07:06 Pulse Ox 96 12/17/23 08:15 O2 Del Method Nasal Cannula 12/17/23 08:15 O2 Flow Rate 2 12/17/23 08:15 FiO2 2 12/15/23 16:00 12/16/23 12/17/23 12/17/23 22:59 06:59 14:59 Intake Total 300 / 620.000 150 / 770.000 100 / 100 Output Total 725 / 725 350 / 1075 Balance -425 / -105.000 -200 / -305.000 100 / 100 Weight last 48 hrs Weight 168.6 kg Weight 166.922 kg Physical Exam 2 Narrative: Awake alert, no acute distress 2-3+ pedal edema Urinary Catheter Management: Latex Free: Cath Placed During This Visit: yes Reason for Continuing Indwelling Catheter: Accurate Measurement of Urinary Output in Critically Ill Patients Urinary Catheter Date of Insertion: 12/12/23 Urinary Catheter Time of Insertion: 15:39 Data 12/17/23 03:05 12/17/23 03:05 A&P Assessment and plan (1) Acute kidney injury superimposed on chronic kidney disease: Plan 1. Acute on chronic kidney disease stage III: Patient's baseline creatinine of 1.5-1.9, has multiple ROSEMARIE's in the past. Now presents with volume overload and creatinine of 2.8 worsened to 3.4 today. -was on Lasix drip with IV albumin every 8 hours, + metolazone 2.5 mg bid daily--> inadequate diuresis so far , - stopped lasix gtt and placed on IV bumex - if no good diuresis , willl need Temporary HD catheter and ultrafiltration. -2 g sodium restriction and 1500 mL fluid restriction 2. Anemia: s/p transfusion ,will add BOUCHRA 3. Diastolic CHF, diuresis as above, echo 4. Acute on chronic respiratory failure, multifactorial, patient has history of COPD, LIZ and CHF 5. History of diabetes Patient evaluated using audiovisual cart. Time spent 20 minutes. Attestations 2 Medical Necessity Statement*: per medicine Coding Level of Care Code Acute Code for Chg Fwd Diagnoses Acute kidney injury superimposed on chronic kidney disease N17.9; N18.9
--- NOTE | 2023-12-17 11:06 | XRR_ITS ---
PROCEDURE INFORMATION: Exam: XR Chest Exam date and time: 12/17/2023 12:57 PM Age: 68 years old Clinical indication: Shortness of breath; Patient HX: Epigastric pain; SOB TECHNIQUE: Imaging protocol: Radiologic exam of the chest. Views: 1 view. COMPARISON: CR XR chest 1V portable [id number] 12/12/2023 2:51 PM FINDINGS: Lungs: No new focal consolidation. Central venous congestion more pronounced on the right. Pleural spaces: No pleural effusion. No pneumothorax. Heart/Mediastinum: Enlarged cardiac silhouette unchanged. Bones/joints: No acute findings. XR/XR chest 1V portable [id number] IMPRESSION: CHF. No new focal consolidation.
[2023-12-17 11:34] LABS: ABG PCO2 52.2 mmHg (35-45); ABG PH Result 7.32 (7.35-7.45); Arterial Blood Gas Hematocrit 27.5 % (37-47); Base Excess ABG 0.3 mmol/L (-2.0-2.0); Blood Gas Allen Test Pos; Blood Gas Operator Identificat BROMA; Blood Gas Sample Site Radial, right; Blood Gas Sample Type Arterial; HCO3 ABG 26.8 mmol/L (22-26); Oxygen Device NC; PO2 FiO2 Ratio Arterial Blood 0
[2023-12-17] MEDS: bumetanide 0.25 mg/mL SDV 10 mL 2 MG IVP ×3 (11:45→16:39)
--- NOTE | 2023-12-17 12:02 | PM.PN ---
Subjective Subjective: Patient continues to feel better. Still has difficulty in getting up and moving around. No chest pain or palpitations. No arrhythmias on the monitor. Vitals remained stable. Medications: Medication Review Details: Current Medications Albuterol/Ipratropium (Ipratropium-Albuterol 3 Ml Neb) 3 ml INHALATION Q6H PRN PRN Reason: SHORTNESS OF BREATH Last Admin: 12/17/23 08:15 Dose: 3 ml Amlodipine Besylate (Amlodipine 10 Mg Tablet) 10 mg PO DAILY [facility] Last Admin: 12/17/23 08:37 Dose: 10 mg Atorvastatin Calcium (Atorvastatin 40 Mg Tablet) 20 mg PO BEDTIME [facility] Last Admin: 12/16/23 21:04 Dose: 20 mg Benzocaine (Cetylpyridinium Lozenge) 1 each MUCOUS MEM Q2H PRN PRN Reason: SORE THROAT Last Admin: 12/17/23 08:38 Dose: 1 each Cyclobenzaprine HCl (Cyclobenzaprine 10 Mg Tablet) 10 mg PO TID PRN PRN Reason: MUSCLE SPASMS Last Admin: 12/17/23 08:38 Dose: 10 mg Dextrose (Dextrose 50% Syringe 50 Ml) 25 ml IVP ONCE PRN; Protocol PRN Reason: hypoglycemia protocol Dextrose (Dextrose 50% Syringe 50 Ml) 50 ml IVP PRN PRN; Protocol PRN Reason: hypoglycemia protocol Ferrous Sulfate (Ferrous Sulfate Ec 325 Mg Tablet) 325 mg PO DAILY [facility] Last Admin: 12/17/23 08:38 Dose: 325 mg Fluoxetine HCl (Fluoxetine 20 Mg Capsule) 20 mg PO DAILY [facility] Last Admin: 12/17/23 08:37 Dose: 20 mg Heparin Sodium (Porcine) (Heparin 5,000 Unit/Ml Inj 1 Ml) 5,000 unit SUBCUT Q12H [facility] Last Admin: 12/17/23 06:36 Dose: 5,000 unit Hydralazine HCl (Hydralazine 50 Mg Tablet) 50 mg PO TID [facility] Last Admin: 12/17/23 08:38 Dose: 50 mg Hydromorphone HCl (Hydromorphone 1 Mg/Ml Inj 1 Ml) 0.5 mg IVP Q6H PRN PRN Reason: PAIN Last Admin: 12/16/23 21:06 Dose: 0.5 mg Dextrose (D5w) 500 mls @ 0 mls/hr IV ONCE PRN; Protocol PRN Reason: Adult Acute Hypoglycemia Prot Albumin Human (Albumin) 25 g in 100 mls @ 60 mls/hr IV Q8H [facility] Last Infusion: 12/17/23 07:00 Dose: Infused Insulin Glargine (Insulin Glargine 100 Units/1 Ml) 20 unit SUBCUT DAILY [facility] Last Admin: 12/17/23 09:00 Dose: Not Given Insulin Human Lispro (Insulin Lispro 100 Unit/1 Ml) 0 unit SUBCUT WM&BEDTIME [facility]; Protocol Last Admin: 12/17/23 12:21 Dose: Not Given Isosorbide Mononitrate (Isosorbide Mononitrate Er 60 Mg Tablet) 60 mg PO DAILY [facility] Last Admin: 12/17/23 08:45 Dose: 60 mg Metolazone (Metolazone 5 Mg Tablet) 2.5 mg PO BID [facility] Last Admin: 12/17/23 08:43 Dose: 2.5 mg Nystatin (Nystatin Powder 30 Gm Btl) 1 applic TOPICAL BID [facility] Last Admin: 12/17/23 08:45 Dose: 1 applic Ondansetron HCl (Ondansetron 2 Mg/Ml Sdv 2 Ml) 4 mg IVP Q6H PRN PRN Reason: vomiting, or N/V if npo Oxycodone HCl (Oxycodone 5 Mg Ir Tab/Cap) 10 mg PO Q8H PRN PRN Reason: MODERATE PAIN Last Admin: 12/16/23 11:42 Dose: 10 mg Pantoprazole Sodium (Pantoprazole Dr 40 Mg Tablet) 40 mg PO BID [facility] Last Admin: 12/17/23 08:44 Dose: 40 mg Senna/Docusate Sodium (Sennosides-Docusate Tablet) 2 tab PO BID [facility] Last Admin: 12/17/23 08:44 Dose: 2 tab Trazodone HCl (Trazodone 100 Mg Tablet) 100 mg PO BEDTIME [facility] Last Admin: 12/16/23 21:04 Dose: 100 mg Vitals/I&O/Wt Last Vital Signs Temp 98.2 F 12/17/23 11:30 Pulse 72 12/17/23 11:28 Resp 17 12/17/23 11:28 BP 173/72 12/17/23 11:28 Pulse Ox 97 12/17/23 11:28 O2 Del Method Nasal Cannula 12/17/23 11:28 O2 Flow Rate 2 01/27/24 08:15 FiO2 2 12/15/23 16:00 12/16/23 12/17/23 12/17/23 22:59 06:59 14:59 Intake Total 300 / 620.000 150 / 770.000 100 / 100 Output Total 725 / 725 350 / 1075 275 / 275 Balance -425 / -105.000 -200 / -305.000 -175 / -175 Weight last 48 hrs Weight 371 lb 11.2 oz Weight 368 lb Physical Exam Narrative: GENERAL: The patient is alert and oriented times three.Morbidly obese. Somewhat tachypneic HEENT: No significant pallor, icterus or lymphadenopathy.Oral cavity: There are no mucous membrane lesions. NECK: Trachea appears to be central. No masses noted. No JVD or thyromegaly appreciated. RESPIRATORY: Chest is symmetrical. No intercostals muscle retraction or any accessory muscle activation. There is no chest wall tenderness. Breath sounds are heard bilaterally. Occasional expiratory wheezing no evidence of any consolidation. BREASTS: Deferred. HEART: The heart sounds are normal. No S3 or S4. No significant murmurs. No pericardial rub ABDOMEN: Abdomen is obese. Marked edema of the abdominal wall especially in the lower abdomen : Deferred. RECTAL: Deferred. LYMPHATIC: No lymphadenopathy noted in the neck. EXTREMITIES: 3+ edema both lower extremities. MUSCULOSKELETAL: No acute joint deformities or swelling SKIN: Erythematous and indurated skin of the lower abdomen NEUROPSYCHIATRIC: The patient is alert and oriented x3. Appears to be in a good mood. No tremors or rigidity noted. Urinary Catheter Management: Latex Free: Cath Placed During This Visit: yes Reason for Continuing Indwelling Catheter: Accurate Measurement of Urinary Output in Critically Ill Patients Urinary Catheter Date of Insertion: 12/12/23 Urinary Catheter Time of Insertion: 15:39 Data 12/18/23 03:10 12/18/23 03:10 Other Labs: Laboratory Last Values WBC 6.11 10^3/uL (3.29-11.43) 12/17/23 03:05 RBC 2.86 10^6/uL (3.85-5.65) L 12/17/23 03:05 Hgb 8.20 g/dL (11.27-16.99) L 12/17/23 03:05 Hct 26.5 % (36-47) L 12/17/23 03:05 MCV 92.7 fl (85-98) 12/17/23 03:05 MCH 28.7 pg (27-33) 12/17/23 03:05 MCHC 30.9 g/dL (30-55) 12/17/23 03:05 RDW 15.9 % (12.1-15.1) H 12/17/23 03:05 Plt Count 143 10^3/cmm (157-399) L 12/17/23 03:05 MPV 11.0 fL (7.4-10.4) H 12/17/23 03:05 Neut % (Auto) 74.8 % 12/17/23 03:05 Lymph % (Auto) 9.8 % 12/17/23 03:05 Hendricks % (Auto) 9.5 % 12/17/23 03:05 Eos % (Auto) 4.6 % 12/17/23 03:05 Baso % (Auto) 0.8 % 12/17/23 03:05 Neut # (Auto) 4.57 10^3/uL (1.8-7.7) 12/17/23 03:05 Lymph # (Auto) 0.6 10^3/uL (0.8-4.8) L 12/17/23 03:05 Hendricks # (Auto) 0.6 10^3/uL (0.2-0.9) 12/17/23 03:05 Eos # (Auto) 0.3 10^3/uL (0.0-0.8) 12/17/23 03:05 Baso # (Auto) 0.1 10^3/uL (0.0-0.1) 12/17/23 03:05 Nucleated RBC % (auto) 0 % 12/17/23 03:05 Nucleated RBCs # 0.0 /100WBC 12/17/23 03:05 PT 15.70 SECONDS (12.1-14.9) H 12/12/23 14:58 INR 1.21 (0.8-1.2) H 12/12/23 14:58 Specimen Type Arterial 12/17/23 11:20 Sample Site Radial, right 12/17/23 11:20 ABG pH 7.32 (7.35-7.45) L 12/17/23 11:20 ABG pCO2 52.2 mmHg (35-45) H 12/17/23 11:20 ABG pO2 75.0 mmHg (80.0-100.0) L 12/17/23 11:20 ABG PO2/FiO2 Ratio 0 12/17/23 11:20 ABG HCO3 26.8 mmol/L (22-26) H 12/17/23 11:20 ABG Base Excess 0.3 mmol/L (-2.0-2.0) 12/17/23 11:20 Sharad Test Pos 12/17/23 11:20 Hematocrit 27.5 % (37-47) L 12/17/23 11:20 O2 Delivery Device Nc 12/17/23 11:20 O2 Liters/Min 2.0 % 12/17/23 11:20 FiO2 28.0 % 12/17/23 11:20 Medication Care Manager ID Carlitosa 12/17/23 11:20 Sodium 140 mmol/L (136-145) 12/17/23 03:05 Potassium 4.1 mmol/L (3.5-5.1) 12/17/23 03:05 Chloride 100 mmol/L (98-107) 12/17/23 03:05 Carbon Dioxide 27 mmol/L (22-29) 12/17/23 03:05 Anion Gap 17.1 (5-19) 12/17/23 03:05 BUN 80 mg/dL (8-23) H 12/17/23 03:05 Creatinine 3.6 mg/dL (0.5-0.9) H 12/17/23 03:05 GFR Calculation 12.7 mL/min (90-130) L 12/17/23 03:05 Glucose 118 mg/dL (65-115) H 12/17/23 03:05 POC Glucose 129 mg/dL (70-110) H 12/17/23 11:30 Calculated Osmolality 315 mOsm/kg (285-295) H 12/17/23 03:05 Calcium 9.4 mg/dL (8.5-10.5) 12/17/23 03:05 Magnesium 2.8 mg/dL (1.7-2.3) H 12/17/23 03:05 Total Bilirubin 0.4 mg/dL (0.15-1.2) 12/17/23 03:05 AST 14 U/L (0-32) 12/17/23 03:05 ALT 12 U/L (0-33) 12/17/23 03:05 Alkaline Phosphatase 71 U/L (35-105) 12/17/23 03:05 Troponin T Baseline 73 ng/L (0-10) H 12/12/23 14:58 Troponin T 120 Minute 70.53 ng/L (0-10) H 12/12/23 16:53 Delta Troponin T -2.47 ABS# (0-10) L 12/12/23 16:53 Troponin T Hi Sens 6Hr 70.55 ng/L (0-10) H 12/12/23 20:29 Troponin T Hi Sens 6Hr Delta -2.45 ng/L (0-12) L 12/12/23 20:29 NT-Pro-B Natriuret Pep 9694 pg/mL (0-125) H 12/12/23 14:58 Total Protein 6.6 g/dL (6.6-8.7) 12/17/23 03:05 Albumin 4.3 g/dL (3.5-5.2) 12/17/23 03:05 Globulin 2.3 g/dL (1.3-4.6) 12/17/23 03:05 Urine Color Yellow (Yellow) 12/12/23 15:33 Urine Appearance Clear (CLEAR) 12/12/23 15:33 Urine pH 5 (5-7) 12/12/23 15:33 Ur Specific [place] 1.020 (1.005-1.030) 12/12/23 15:33 Urine Protein 1+ (Negative) H 12/12/23 15:33 Urine Glucose (UA) Norm (Normal) 12/12/23 15:33 Urine Ketones Negative (Negative) 12/12/23 15:33 Urine Blood Neg (Negative) 12/12/23 15:33 Urine Nitrate Negative (Negative) 12/12/23 15:33 Urine Bilirubin Neg (Negative) 12/12/23 15:33 Urine Urobilinogen Norm mg/dL (Negative) 12/12/23 15:33 Ur Leukocyte Esterase Negative (Negative) 12/12/23 15:33 Urine RBC None /hpf (0-2) 12/12/23 15:33 Urine WBC 0-4 /hpf (0-5) H 12/12/23 15:33 Ur Squamous Epith Cells 0-4 /hpf (0-5) H 12/12/23 15:33 Amorphous Sediment Not Reportable 12/12/23 15:33 Urine Bacteria Trace /hpf (NONE) 12/12/23 15:33 Hyaline Casts 0-4 /lpf H 12/12/23 15:33 Blood Type B Positive 12/15/23 07:46 Rho(D) Type Rh positive 12/15/23 07:46 Antibody Screen Negative 12/15/23 07:46 Crossmatch See Detail 12/15/23 07:46 A&P Assessment and plan (1) Acute on chronic diastolic (congestive) heart failure: Continue on the current medications (2) Generalized edema: Multifactorial. Worsening kidney function, anemia, lack of mobility, diastolic heart failure, etc. (3) Acute kidney injury superimposed on chronic kidney disease: Management as per nephrology service (4) Chronic obstructive pulmonary disease, unspecified: Patient is on bronchodilator treatment. Currently on 2 L of oxygen by nasal cannula. Oxygen saturation seems to be appropriate. Qualifiers: COPD type: unspecified COPD Qualified Code(s): J44.9 - Chronic obstructive pulmonary disease, unspecified (5) Type 2 diabetes mellitus with diabetic chronic kidney disease: Aggressive management of the hyperglycemia would be appropriate Qualifiers: Chronic kidney disease stage: stage 4 (severe) Diabetes mellitus retirement insulin use: with retirement use Qualified Code(s): E11.22 - Type 2 diabetes mellitus with diabetic chronic kidney disease; N18.4 - Chronic kidney disease, stage 4 (severe); Z79.4 - longterm (current) use of insulin (6) Benign hypertension: Currently of stage II (7) Anemia: Status post blood transfusion x 1. Hemoglobin seems to be holding up. Will continue the close monitoring. Qualifiers: Anemia type: iron deficiency Iron deficiency anemia type: inadequate dietary iron intake Qualified Code(s): D50.8 - Other iron deficiency anemias Plan Will try to optimize the antihypertensive medications. Attestations Medical Necessity Statement*: Patient requires continued hospital stay for close monitoring and management Coding Level of Care Code Acute Code for Chg Fwd Diagnoses Acute on chronic diastolic (congestive) heart failure I50.33 Generalized edema R60.1 Acute kidney injury superimposed on chronic kidney disease N17.9; N18.9 Chronic obstructive pulmonary disease, unspecified COPD type J44.9 COPD type: unspecified COPD Type 2 diabetes mellitus with stage 4 chronic kidney disease, with long-term current use of insulin E11.22; N18.4; Z79.4 Chronic kidney disease stage: stage 4 (severe) Diabetes mellitus retirement insulin use: with retirement use Benign hypertension I10 Iron deficiency anemia secondary to inadequate dietary iron intake D50.8 Anemia type: iron deficiency Iron deficiency anemia type: inadequate dietary iron intake
[2023-12-17 12:12] LABS: Glucose Point of Care 129 mg/dL (70-110)
[2023-12-17 13:00] LABS: Add Urine Culture? Yes; Add Urine Microscopic? YES; Bacteria Urine 2+ /hpf; Bilirubin Urine Neg (Negative); Blood Urine 3+ (Negative); Glucose Urine UA Norm (Normal); Hyaline Casts Urine 0-4 /lpf; Ketones Urine Negative (Negative); Leukocyte Esterase Urine Negative (Negative); Nitrate Urine Negative (Negative); Protein Urine Trace (Negative); RBC Urine 25-40 /hpf (0-2); Squamous Epithelial Cell Urine 0-4 /hpf (0-5); Urine Appearance Clear (CLEAR); Urine Color Yellow (Yellow); Urobilinogen Urine Norm (Negative); pH Urine 5 (5-7)
[2023-12-17 13:10] LABS: Potassium, Radom Urine 60 mmol/L; Urine Creatinine 47 mg/dL (28-217); Urine Random Chloride 96 mmol/L; Urine Random Sodium 57 mmol/L
[2023-12-17] MEDS: oxyCODONE 5 mg IR Tab/Cap 10 MG PO (14:35)
--- NOTE | 2023-12-17 14:57 | PC.NURSE ---
dr edwards updated to pt status...has put 150 cc clear anatoliy urine out since 4 mg bumex given iv today.
[2023-12-17] MEDS: HYDROmorphone 1 mg/mL INJ 1 mL 0.5 MG IVP (15:23)
--- NOTE | 2023-12-17 15:52 | PC.NURSE ---
pt having excruciating pain in bilat legs...toes through thighs.pt states she gets this freq at home and having her son rub her legs and taking pain meds helps.pt repositioned..sat on edge of bed,stood up..no relief.pain meds given and feet rubbed with some relief obtained.
--- NOTE | 2023-12-17 16:01 | P.PN_ITS ---
Subjective 2 Subjective: Hospital course, labs appreciated. Today morning seen sitting up in recliner. Patient has Juárez catheter in place. Awake and alert without any concerns for confusion. Denies any nausea vomiting, headache. Complains of mild difficulty in breathing. Continues to remain on baseline oxygen supplementation of 2 L saturating more than 92%. Vitals/I&O/Wt Last Vital Signs Temp 98.2 F 12/17/23 11:30 Pulse 72 12/17/23 11:28 Resp 24 H 12/17/23 15:23 BP 173/72 12/17/23 11:28 Pulse Ox 95 12/17/23 15:23 O2 Del Method Nasal Cannula 12/17/23 11:28 O2 Flow Rate 2 12/17/23 08:15 FiO2 2 12/15/23 16:00 12/17/23 12/17/23 12/17/23 06:59 14:59 22:59 Intake Total 150 / 770.000 100 / 100 Output Total 350 / 1075 425 / 425 Balance -200 / -305.000 -325 / -325 Weight last 48 hrs Weight 168.6 kg Weight 166.922 kg Physical Exam 2 Narrative: General patient is alert and oriented to person place and time in no apparent distress, pleasant afebrile, currently on 2 L of oxygen HEENT normocephalic atraumatic no lymphadenopathy no thyromegaly neck supple Respiratory breath sounds decreased bilaterally no wheezes rubs or rhonchi, no cough or congestion Cardiac regular rhythm regular rate heart sounds distant, 1+ pulses in the left lower extremity, right radial pulse 2+ Abdomen normal bowel sounds, obese, distended, edema noted in the lower abdomen especially on the left, abdominal scars with no adipose tissue from previous surgeries noted below the umbilicus, no tenderness to palpation deferred Extremities 3+ edema bilateral lower extremities, 4/5 strength throughout, no pain, normal sensation Neurologic decreased vision on the right, decreased mobility of right upper extremity Urinary Catheter Management: Latex Free: Cath Placed During This Visit: yes Reason for Continuing Indwelling Catheter: Accurate Measurement of Urinary Output in Critically Ill Patients Urinary Catheter Date of Insertion: 12/12/23 Urinary Catheter Time of Insertion: 15:39 Data 12/17/23 03:05 12/17/23 03:05 A&P Assessment and plan (1) Acute exacerbation of congestive heart failure: Echocardiogram showed ejection fraction within normal limits right ventricular dilation bilateral atrial enlarged tricuspid regurgitation no pericardial. Most likely diastolic heart failure. Patient takes Bumex 2 mg twice daily at home. Overall around 1100 cc negative since admission. Has had poor response to diuretics. Renal functions continue to get slightly worsened. Patient has been on Lasix drip and metolazone 2.5 mg twice daily. Appreciate repeat ABG and chest x-ray. Chest x-ray shows mild CHF not to worsen from before. Continue fluid restriction up to 1500 cc. Monitor BMP daily. Strict input output charting. Lasix drip discontinued because of poor response. Start on Bumex 2 mg every 8 hourly. Continue with metolazone. Not sure about CHF being the only reason for patient's shortness of breath. There is component of anxiety as well. Will start on Xanax 0.5 every 8 hourly as needed. Cannot give morphine as patient has morphine allergy with itching. Though has been able to tolerate hydromorphone. Continue with home dose of duloxetine. Blood pressure is elevated. Will increase the dose of Imdur to 60 in the morning and 30 in evening. Qualifiers: Heart failure type: unspecified Qualified Code(s): I50.9 - Heart failure, unspecified (2) ROSEMARIE (acute kidney injury): Appreciate nephrology recommendations. Medical reconciliation done for nephrotoxic drugs. Discussed in detail with nephrology team in detail. Agreeable with Bumex 2 mg every 8 hourly. Also agreeable about next etiology of shortness of breath. Monitor renal functions regularly. Repeat renal function in p.m. Is still possible that patient would end up for dialysis. Patient will need temporary dialysis catheter though she does not want dialysis catheter to be put in by Dr. Sanchez and would want to hold off as possible they will somebody else is available for placement of dialysis catheter. Patient as of now does not need emergent dialysis so we will hold off. Monitor renal functions daily. (3) Anemia: Hemoglobin 8.3, improved following transfusion of 1 unit packed red blood cells on December 15 Anemia likely related to chronic kidney disease, autoimmune disease. Continue with Protonix twice daily. Continue with oral iron supplementation. 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 Add senna 2 tablets twice daily, monitor for bowel movement. Hypertension: Goal blood pressure less than 140/90 mmHg. Continue with amlodipine 10 mg daily, hydralazine 50 mg 3 times daily, increasing Imdur as above. Full code Heparin for DVT prophylaxis Attestations 2 Medical Necessity Statement*: Requires further hospitalization for management of shortness of breath in setting of congestive heart in patient with morbid obesity, diastolic heart failure, end-stage renal disease not on dialysis currently with high chances of patient ending up on dialysis. Diagnoses Acute exacerbation of congestive heart failure I50.9 Heart failure type: unspecified ROSEMARIE (acute kidney injury) N17.9 Iron deficiency anemia secondary to inadequate dietary iron intake D50.8 Anemia type: iron deficiency Iron deficiency anemia type: inadequate dietary iron intake Type 2 diabetes mellitus with stage 4 chronic kidney disease, with long-term current use of insulin E11.22; N18.4; Z79.4 Diabetes mellitus longterm insulin use: with termite control representative use Chronic kidney disease stage: stage 4 (severe)
[2023-12-17] MEDS: ALPRAZolam 0.5 mg Tablet PO (16:39)
[2023-12-17] MEDS: gabapentin 100 mg Capsule PO (16:39)
[2023-12-17 16:53] LABS: Glucose Point of Care 126 mg/dL (70-110)
[2023-12-17] MEDS: isosorbide mononitrate ER 30 mg Tablet PO (17:41)
--- NOTE | 2023-12-17 18:20 | PC.NURSE ---
pt much more comfortable now since pain meds given.also began on gabapentin and xanax.
[2023-12-17 21:19] LABS: Glucose Point of Care 115 mg/dL (70-110)
[2023-12-17] MEDS: atorvastatin 40 mg Tablet 20 MG PO (21:36)
[2023-12-17] MEDS: trazodone 100 mg Tablet PO (21:37)
[2023-12-18] VITALS (20 sets, daily range): BP systolic 143–175; BP diastolic 61–94; PULSE 60–72; RESP 6–20; TEMP 36.2–36.8; O2SAT 89–97
[2023-12-18] MEDS: bumetanide 0.25 mg/mL SDV 10 mL 2 MG IVP ×2 (00:15→07:44)
[2023-12-18 03:41] LABS: Basophils # 0.1 10^3/uL (0.0-0.1); Eosinophils # 0.3 10^3/uL (0.0-0.8); Eosinophils % 5.2 %; Hematocrit 26.6 % (36-47); Lymphocytes # 0.6 10^3/uL (0.8-4.8); Mean Corpuscular HGB Conc 30.8 g/dL (30-55); Mean Corpuscular Hemoglobin 28.3 pg (27-33); Mean Corpuscular Volume 91.7 fl (85-98); Mean Platelet Volume 10.6 fL (7.4-10.4); Monocytes # 0.7 10^3/uL (0.2-0.9); Monocytes % 11.9 %; Neutrophils # 4.46 10^3/uL (1.8-7.7); Neutrophils % 72.6 %; Nucleated Red Blood Cells % 0 %; Platelet Count 139 10^3/cmm (157-399); Red Cell Distribution Width 15.6 % (12.1-15.1); White Blood Count 6.14 10^3/uL (3.29-11.43)
[2023-12-18 04:03] LABS: Alanine Aminotransferase 10 U/L (0-33); Albumin Level 4.4 g/dL (3.5-5.2); Alkaline Phosphatase 65 U/L (35-105); Anion Gap 15.8 (5-19); Aspartate Amino Transferase 13 U/L (0-32); Calcium 9.4 mg/dL (8.5-10.5); Carbon Dioxide 27 mmol/L (22-29); Chloride 101 mmol/L (98-107); Globulin 2.4 g/dL (1.3-4.6); Glomerular Filtration Rate 11.5 mL/min (90-130); Glucose 107 mg/dL (65-115); Osmolality Calculated 317 mOsm/kg (285-295); Potassium 3.8 mmol/L (3.5-5.1); Sodium 140 mmol/L (136-145); Total Bilirubin 0.4 mg/dL (0.15-1.2); Total Protein 6.8 g/dL (6.6-8.7)
[2023-12-18 04:47] LABS: Blood Urea Nitrogen 88 mg/dL (8-23)
[2023-12-18] MEDS: albumin 25 G/100 ML BAG 60 G IV ×3 (05:39→20:49)
[2023-12-18] MEDS: heparin 5,000 unit/mL INJ 1 mL 5000 UNIT SUBCUT ×2 (06:03→17:53)
[2023-12-18 06:27] LABS: Glucose Point of Care 144 mg/dL (70-110)
[2023-12-18] MEDS: insulin lispro 100 unit/1 mL SUBCUT ×2 (07:43→20:53)
--- NOTE | 2023-12-18 08:19 | P.PN_ITS ---
Subjective 2 Subjective: c/o pain was on BIPAP last night Medications: Reviewed: Yes Vitals/I&O/Wt Last Vital Signs Temp 97.4 F L 12/18/23 07:03 Pulse 60 12/18/23 07:03 Resp 17 12/18/23 07:03 BP 163/77 12/18/23 07:03 Pulse Ox 96 12/18/23 07:03 O2 Del Method CPAP 12/18/23 07:03 O2 Flow Rate 2 12/17/23 08:15 FiO2 25 12/18/23 04:00 12/17/23 12/18/23 12/18/23 22:59 06:59 14:59 Intake Total 100 / 200 1060 / 1260 Output Total 650 / 1075 Balance 100 / -225 410 / 185 Weight last 48 hrs Weight 166.695 kg Weight 168.6 kg Physical Exam 2 Narrative: awake , alert , no distress Urinary Catheter Management: Latex Free: Cath Placed During This Visit: yes Reason for Continuing Indwelling Catheter: Accurate Measurement of Urinary Output in Critically Ill Patients Urinary Catheter Date of Insertion: 12/12/23 Urinary Catheter Time of Insertion: 15:39 Data 12/18/23 03:10 12/18/23 03:10 A&P Assessment and plan (1) Acute kidney injury superimposed on chronic kidney disease: Plan 1. Acute on chronic kidney disease stage III: Patient's baseline creatinine of 1.5-1.9, has multiple ROSEMARIE's in the past. Now presents with volume overload and creatinine of 2.8 worsened to 3.4 today. -was on Lasix drip with IV albumin every 8 hours, + metolazone 2.5 mg bid daily-->switched to bumex , with no inadequate diuresis so far , - renal fxn worse , WILL HOLD OF DIURETICS FOR 1-2 days and watch renal function. -2 g sodium restriction and 1500 mL fluid restriction 2. Anemia: s/p transfusion ,will add BOUCHRA 3. Diastolic CHF, diuresis as above, echo 4. Acute on chronic respiratory failure, multifactorial, patient has history of COPD, LIZ and CHF 5. History of diabetes Patient evaluated using audiovisual cart. Time spent 20 minutes. Attestations 2 Medical Necessity Statement*: per rolandomi Coding Level of Care Code Acute Code for Chg Fwd Diagnoses Acute kidney injury superimposed on chronic kidney disease N17.9; N18.9
[2023-12-18] MEDS: HYDROmorphone 1 mg/mL INJ 1 mL 0.5 MG IVP ×3 (08:40→20:52)
[2023-12-18] MEDS: insulin glargine 100 units/1 mL 20 UNIT SUBCUT (08:42)
[2023-12-18] MEDS: gabapentin 100 mg Capsule PO ×2 (08:43→17:55)
[2023-12-18] MEDS: amlodipine 10 mg Tablet PO (08:43)
[2023-12-18] MEDS: isosorbide mononitrate ER 60 mg Tablet PO ×2 (08:43→17:56)
[2023-12-18] MEDS: sennosides-docusate Tablet 2 TAB PO ×2 (08:43→17:55)
[2023-12-18] MEDS: hyDRALAzine 50 mg Tablet PO ×3 (08:43→20:51)
[2023-12-18] MEDS: ferrous sulfate EC 325 mg Tablet PO (08:43)
[2023-12-18] MEDS: fluoxetine 20 mg Capsule PO (08:43)
[2023-12-18] MEDS: pantoprazole DR 40 mg Tablet PO ×2 (08:43→17:55)
[2023-12-18] MEDS: ipratropium-albuterol 3 mL Neb INHALATION ×3 (08:54→20:57)
[2023-12-18] MEDS: oxyCODONE 5 mg IR Tab/Cap 10 MG PO ×2 (11:03→17:54)
[2023-12-18 11:40] LABS: Glucose Point of Care 127 mg/dL (70-110)
--- NOTE | 2023-12-18 13:17 | PM.PN ---
Subjective Subjective: No acute events overnight. Patient tolerated BiPAP well overnight. Denies any nausea vomiting, headache. The morning examination patient is awake and resting comfortably in bed. Agreeable to sit in chair. She is on 1 L of oxygen supplementation saturating 90%. Documented urine output of around 1200 cc in last 24 hours. Vitals/I&O/Wt Last Vital Signs Temp 97.9 F 12/18/23 11:00 Pulse 65 12/18/23 11:00 Resp 6 L 12/18/23 11:03 BP 163/61 12/18/23 11:00 Pulse Ox 89 L 12/18/23 11:03 O2 Del Method Nasal Cannula 12/18/23 11:00 O2 Flow Rate 3 12/18/23 08:54 FiO2 25 12/18/23 04:00 12/17/23 12/18/23 12/18/23 22:59 06:59 14:59 Intake Total 100 / 200 1060 / 1260 100 / 100 Output Total 650 / 1075 380 / 380 Balance 100 / -225 410 / 185 -280 / -280 Weight last 48 hrs Weight 166.695 kg Weight 168.6 kg Physical Exam Narrative: General patient is alert and oriented to person place and time in no apparent distress, pleasant afebrile, currently on 2 L of oxygen HEENT normocephalic atraumatic no lymphadenopathy no thyromegaly neck supple Respiratory breath sounds decreased bilaterally no wheezes rubs or rhonchi, no cough or congestion Cardiac regular rhythm regular rate heart sounds distant, 1+ pulses in the left lower extremity, right radial pulse 2+ Abdomen normal bowel sounds, obese, distended, edema noted in the lower abdomen especially on the left, abdominal scars with no adipose tissue from previous surgeries noted below the umbilicus, no tenderness to palpation deferred Extremities 3+ edema bilateral lower extremities, 4/5 strength throughout, no pain, normal sensation Neurologic decreased vision on the right, decreased mobility of right upper extremity Urinary Catheter Management: Latex Free: Cath Placed During This Visit: yes Reason for Continuing Indwelling Catheter: Accurate Measurement of Urinary Output in Critically Ill Patients Urinary Catheter Date of Insertion: 12/12/23 Urinary Catheter Time of Insertion: 15:39 Data 12/18/23 03:10 12/18/23 03:10 Micro: Microbiology 12/17/23 12:30 Urine Culture - Preliminary Urine,Clean Catch Gram Negative Rods A&P Assessment and plan (1) SOB (shortness of breath): Most likely a combination of obstructive sleep apnea, diastolic heart failure, COPD and anxiety. Keep oxygen supplementation over 88 to 90%. Nebulization treatment. (2) Acute exacerbation of congestive heart failure: Echocardiogram showed ejection fraction within normal limits right ventricular dilation bilateral atrial enlarged tricuspid regurgitation no pericardial. Most likely diastolic heart failure. Patient takes Bumex 2 mg twice daily at home. Overall around 1200 cc negative since admission. With very poor response to aggressive diuresis with worsening of renal functions. Appreciate chest x-ray for mild CHF. Continue with fluid restriction up to 1500 cc. For now we will hold off on further diuresis and monitor respiratory status and renal functions. Strict input charting, daily weights. Juárez catheterization. ABG also suggestive of hypercapnia and mild hypoxia. Not sure about CHF being the only reason for patient's shortness of breath. There is component of anxiety as well. Continue with Xanax 0.5 every 8 hourly as needed. Cannot give morphine as patient has morphine allergy with itching. Though has been able to tolerate hydromorphone. Continue with home dose of duloxetine. Blood pressure is elevated. Increase Imdur to 60 mg twice daily. Imdur will help with pulmonary vascular dilatation as well. Qualifiers: Heart failure type: unspecified Qualified Code(s): I50.9 - Heart failure, unspecified (3) LIZ (obstructive sleep apnea): BiPAP nightly and when resting. Patient is due for a sleep study as an outpatient. Patient will benefit with BiPAP as an outpatient on discharge also. (4) Chronic obstructive pulmonary disease, unspecified: Nebulization treatment as above. Qualifiers: COPD type: unspecified COPD Qualified Code(s): J44.9 - Chronic obstructive pulmonary disease, unspecified (5) ROSEMARIE (acute kidney injury): Appreciate nephrology recommendations. Medical reconciliation done for nephrotoxic drugs. Discussed in detail with nephrology team in detail. Agreeable to hold off on any diuresis going forward or while monitoring respiratory and renal functions. Is quite possible that patient will end up needing dialysis. Is still possible that patient would end up for dialysis. Patient will need temporary dialysis catheter though she does not want dialysis catheter to be put in by Dr. Sanchez and would want to hold off as possible they will somebody else is available for placement of dialysis catheter. Patient as of now does not need emergent dialysis so we will hold off. Monitor renal functions daily. (6) Anemia: Hemoglobin 8.3, improved following transfusion of 1 unit packed red blood cells on December 15 Anemia likely related to chronic kidney disease, autoimmune disease. Continue with Protonix twice daily. Continue with oral iron supplementation. Qualifiers: Anemia type: iron deficiency Iron deficiency anemia type: inadequate dietary iron intake Qualified Code(s): D50.8 - Other iron deficiency anemias (7) Type 2 diabetes mellitus with diabetic chronic kidney disease: Sliding scale insulin Continue long-acting insulin Consistent carb diet Qualifiers: Diabetes mellitus terminal operations supervisor insulin use: with [facility] use Chronic kidney disease stage: stage 4 (severe) Qualified Code(s): E11.22 - Type 2 diabetes mellitus with diabetic chronic kidney disease; N18.4 - Chronic kidney disease, stage 4 (severe); Z79.4 - jail (current) use of insulin Plan Constipation is multifactorial. Add senna 2 tablets twice daily, monitor for bowel movement. Hypertension: Goal blood pressure less than 140/90 mmHg. Continue with amlodipine 10 mg daily, hydralazine 50 mg 3 times daily, increasing Imdur as above. Full code Heparin for DVT prophylaxis Attestations Medical Necessity Statement*: Requires further hospitalization for management of hypoxia in setting of obstructive sleep apnea, diastolic heart failure in a patient with CKD stage IV with ongoing ROSEMARIE with high risk for dialysis Diagnoses SOB (shortness of breath) R06.02 Acute exacerbation of congestive heart failure I50.9 Heart failure type: unspecified LIZ (obstructive sleep apnea) G47.33 Chronic obstructive pulmonary disease, unspecified COPD type J44.9 COPD type: unspecified COPD ROSEMARIE (acute kidney injury) N17.9 Iron deficiency anemia secondary to inadequate dietary iron intake D50.8 Anemia type: iron deficiency Iron deficiency anemia type: inadequate dietary iron intake Type 2 diabetes mellitus with stage 4 chronic kidney disease, with long-term current use of insulin E11.22; N18.4; Z79.4 Diabetes mellitus terminal operations supervisor insulin use: with terminal operations supervisor use Chronic kidney disease stage: stage 4 (severe)
--- NOTE | 2023-12-18 14:19 | PM.PN ---
Subjective Subjective: The BUN/creatinine continues to get worse. Urine output still low. Nephrology still trying different diuretic agents. Medications: Medication Review Details: Current Medications Albuterol/Ipratropium (Ipratropium-Albuterol 3 Ml Neb) 3 ml INHALATION Q6H.RESP HERMINIO Alprazolam (Alprazolam 0.5 Mg Tablet) 0.5 mg PO TID PRN PRN Reason: ANXIETY Last Admin: 12/17/23 16:39 Dose: 0.5 mg Amlodipine Besylate (Amlodipine 10 Mg Tablet) 10 mg PO DAILY [facility] Last Admin: 12/18/23 08:43 Dose: 10 mg Atorvastatin Calcium (Atorvastatin 40 Mg Tablet) 20 mg PO BEDTIME HERMINIO Last Admin: 12/17/23 21:36 Dose: 20 mg Benzocaine (Cetylpyridinium Lozenge) 1 each MUCOUS MEM Q2H PRN PRN Reason: SORE THROAT Last Admin: 12/17/23 08:38 Dose: 1 each Budesonide (Budesonide 0.5 Mg/2 Ml Neb) 0.5 mg INHALATION BID.RESPIRATORY HERMINIO Cyclobenzaprine HCl (Cyclobenzaprine 10 Mg Tablet) 10 mg PO TID PRN PRN Reason: MUSCLE SPASMS Last Admin: 12/17/23 08:38 Dose: 10 mg Dextrose (Dextrose 50% Syringe 50 Ml) 25 ml IVP ONCE PRN; Protocol PRN Reason: hypoglycemia protocol Dextrose (Dextrose 50% Syringe 50 Ml) 50 ml IVP PRN PRN; Protocol PRN Reason: hypoglycemia protocol Ferrous Sulfate (Ferrous Sulfate Ec 325 Mg Tablet) 325 mg PO DAILY [facility] Last Admin: 12/18/23 08:43 Dose: 325 mg Fluoxetine HCl (Fluoxetine 20 Mg Capsule) 20 mg PO DAILY [facility] Last Admin: 12/18/23 08:43 Dose: 20 mg Gabapentin (Gabapentin 100 Mg Capsule) 100 mg PO BID [facility] Last Admin: 12/18/23 08:43 Dose: 100 mg Heparin Sodium (Porcine) (Heparin 5,000 Unit/Ml Inj 1 Ml) 5,000 unit SUBCUT Q12H [facility] Last Admin: 12/18/23 06:03 Dose: 5,000 unit Hydralazine HCl (Hydralazine 50 Mg Tablet) 50 mg PO TID [facility] Last Admin: 12/18/23 14:14 Dose: 50 mg Hydromorphone HCl (Hydromorphone 1 Mg/Ml Inj 1 Ml) 0.5 mg IVP Q6H PRN PRN Reason: PAIN Last Admin: 12/18/23 14:14 Dose: 0.5 mg Dextrose (D5w) 500 mls @ 0 mls/hr IV ONCE PRN; Protocol PRN Reason: Adult Acute Hypoglycemia Prot Albumin Human (Albumin) 25 g in 100 mls @ 60 mls/hr IV Q8H [facility] Last Admin: 12/18/23 13:24 Dose: 60 mls/hr Insulin Glargine (Insulin Glargine 100 Units/1 Ml) 20 unit SUBCUT DAILY [facility] Last Admin: 12/18/23 08:42 Dose: 20 unit Insulin Human Lispro (Insulin Lispro 100 Unit/1 Ml) 0 unit SUBCUT WM&BEDTIME [facility]; Protocol Last Admin: 12/18/23 12:01 Dose: Not Given Isosorbide Mononitrate (Isosorbide Mononitrate Er 60 Mg Tablet) 60 mg PO BID [facility] Nystatin (Nystatin Powder 30 Gm Btl) 1 applic TOPICAL BID [facility] Last Admin: 12/18/23 08:55 Dose: Not Given Ondansetron HCl (Ondansetron 2 Mg/Ml Sdv 2 Ml) 4 mg IVP Q6H PRN PRN Reason: vomiting, or N/V if npo Oxycodone HCl (Oxycodone 5 Mg Ir Tab/Cap) 10 mg PO Q8H PRN PRN Reason: MODERATE PAIN Last Admin: 12/18/23 11:03 Dose: 10 mg Pantoprazole Sodium (Pantoprazole Dr 40 Mg Tablet) 40 mg PO BID [facility] Last Admin: 12/18/23 08:43 Dose: 40 mg Senna/Docusate Sodium (Sennosides-Docusate Tablet) 2 tab PO BID [facility] Last Admin: 12/18/23 08:43 Dose: 2 tab Trazodone HCl (Trazodone 100 Mg Tablet) 100 mg PO BEDTIME [facility] Last Admin: 12/17/23 21:37 Dose: 100 mg Vitals/I&O/Wt Last Vital Signs Temp 97.9 F 12/18/23 11:00 Pulse 65 12/18/23 11:00 Resp 19 H 12/18/23 14:14 BP 163/61 12/18/23 11:00 Pulse Ox 89 L 12/18/23 14:14 O2 Del Method Nasal Cannula 12/18/23 11:00 O2 Flow Rate 3 12/18/23 08:54 FiO2 25 12/18/23 04:00 12/17/23 12/18/23 12/18/23 22:59 06:59 14:59 Intake Total 100 / 200 1060 / 1260 220 / 220 Output Total 650 / 1075 380 / 380 Balance 100 / -225 410 / 185 -160 / -160 Weight last 48 hrs Weight 367 lb 8 oz Weight 371 lb 11.2 oz Physical Exam Narrative: GENERAL: The patient is alert and oriented times three.Morbidly obese. Somewhat tachypneic HEENT: No significant pallor, icterus or lymphadenopathy.Oral cavity: There are no mucous membrane lesions. NECK: Trachea appears to be central. No masses noted. No JVD or thyromegaly appreciated. RESPIRATORY: Chest is symmetrical. No intercostals muscle retraction or any accessory muscle activation. There is no chest wall tenderness. Breath sounds are heard bilaterally. Occasional expiratory wheezing no evidence of any consolidation. BREASTS: Deferred. HEART: The heart sounds are normal. No S3 or S4. No significant murmurs. No pericardial rub ABDOMEN: Abdomen is obese. Marked edema of the abdominal wall especially in the lower abdomen : Deferred. RECTAL: Deferred. LYMPHATIC: No lymphadenopathy noted in the neck. EXTREMITIES: 3+ edema both lower extremities. MUSCULOSKELETAL: No acute joint deformities or swelling SKIN: Erythematous and indurated skin of the lower abdomen NEUROPSYCHIATRIC: The patient is alert and oriented x3. Appears to be in a good mood. No tremors or rigidity noted. Urinary Catheter Management: Latex Free: Cath Placed During This Visit: yes Reason for Continuing Indwelling Catheter: Accurate Measurement of Urinary Output in Critically Ill Patients Urinary Catheter Date of Insertion: 12/12/23 Urinary Catheter Time of Insertion: 15:39 Data 12/19/23 04:09 12/19/23 04:09 Micro: Microbiology 12/17/23 12:30 Urine Culture - Preliminary Urine,Clean Catch Gram Negative Rods A&P Assessment and plan (1) Acute on chronic diastolic (congestive) heart failure: Continue on the current medications. May need to consider dialysis. Will await nephrology recommendation (2) Generalized edema: Multifactorial. Worsening kidney function, anemia, lack of mobility, diastolic heart failure, etc. (3) Acute kidney injury superimposed on chronic kidney disease: The kidney function continues to get worse (4) Chronic obstructive pulmonary disease, unspecified: Patient is on bronchodilator treatment. Management as per the primary Qualifiers: COPD type: unspecified COPD Qualified Code(s): J44.9 - Chronic obstructive pulmonary disease, unspecified (5) Type 2 diabetes mellitus with diabetic chronic kidney disease: Aggressive management of the hyperglycemia would be appropriate Qualifiers: Chronic kidney disease stage: stage 4 (severe) Diabetes mellitus long term care administrator insulin use: with fpc use Qualified Code(s): E11.22 - Type 2 diabetes mellitus with diabetic chronic kidney disease; N18.4 - Chronic kidney disease, stage 4 (severe); Z79.4 - correction (current) use of insulin (6) Benign hypertension: Currently of stage II. May continue to optimize the antihypertensive medications (7) Anemia: Status post blood transfusion x 1. Hemoglobin seems to be holding up. Will continue the close monitoring. Qualifiers: Anemia type: iron deficiency Iron deficiency anemia type: inadequate dietary iron intake Qualified Code(s): D50.8 - Other iron deficiency anemias Attestations Medical Necessity Statement*: Disposition as per the primary Coding Level of Care Code 24957 Diagnoses Acute on chronic diastolic (congestive) heart failure I50.33 Generalized edema R60.1 Acute kidney injury superimposed on chronic kidney disease N17.9; N18.9 Chronic obstructive pulmonary disease, unspecified COPD type J44.9 COPD type: unspecified COPD Type 2 diabetes mellitus with stage 4 chronic kidney disease, with long-term current use of insulin E11.22; N18.4; Z79.4 Chronic kidney disease stage: stage 4 (severe) Diabetes mellitus long term care administrator insulin use: with long term care administrator use Benign hypertension I10 Iron deficiency anemia secondary to inadequate dietary iron intake D50.8 Anemia type: iron deficiency Iron deficiency anemia type: inadequate dietary iron intake
[2023-12-18 16:59] LABS: Glucose Point of Care 96 mg/dL (70-110)
--- NOTE | 2023-12-18 18:03 | PC.NURSE ---
Patient was taken off bipap to give her medication and put on nasal canula for that short duration. Her oxygen dropped to 79%. Nurse gave her the medications quickly and replaced bipap. When nurse left room o2 was at 94%.
[2023-12-18 20:28] LABS: Glucose Point of Care 146 mg/dL (70-110)
[2023-12-18] MEDS: trazodone 100 mg Tablet PO (20:50)
[2023-12-18] MEDS: atorvastatin 40 mg Tablet 20 MG PO (20:50)
[2023-12-18] MEDS: budesonide 0.5 mg/2 mL Neb INHALATION (20:57)
[2023-12-19] VITALS (19 sets, daily range): BP systolic 125–183; BP diastolic 54–77; PULSE 68–79; RESP 12–19; TEMP 36.4–37.3; O2SAT 92–98
[2023-12-19] MEDS: ipratropium-albuterol 3 mL Neb INHALATION ×4 (02:15→19:33)
[2023-12-19 04:22] LABS: Basophils % 0.5 %; Eosinophils # 0.2 10^3/uL (0.0-0.8); Eosinophils % 2.7 %; Hematocrit 26.3 % (36-47); Lymphocytes # 0.5 10^3/uL (0.8-4.8); Lymphocytes % 5.9 %; Mean Corpuscular HGB Conc 31.6 g/dL (30-55); Mean Platelet Volume 10.3 fL (7.4-10.4); Monocytes # 0.8 10^3/uL (0.2-0.9); Monocytes % 9.2 %; Neutrophils # 6.87 10^3/uL (1.8-7.7); Neutrophils % 81.3 %; Nucleated Red Blood Cells % 0 %; Platelet Count 137 10^3/cmm (157-399); Red Blood Count 2.86 10^6/uL (3.85-5.65); Red Cell Distribution Width 15.5 % (12.1-15.1); White Blood Count 8.45 10^3/uL (3.29-11.43)
[2023-12-19] MEDS: HYDROmorphone 1 mg/mL INJ 1 mL 0.5 MG IVP ×2 (04:24→16:15)
[2023-12-19 04:42] LABS: Alanine Aminotransferase 10 U/L (0-33); Albumin Level 4.7 g/dL (3.5-5.2); Alkaline Phosphatase 66 U/L (35-105); Anion Gap 20.1 (5-19); Aspartate Amino Transferase 15 U/L (0-32); Calcium 9.6 mg/dL (8.5-10.5); Carbon Dioxide 26 mmol/L (22-29); Chloride 99 mmol/L (98-107); Globulin 2.2 g/dL (1.3-4.6); Glomerular Filtration Rate 10.6 mL/min (90-130); Glucose 96 mg/dL (65-115); Osmolality Calculated 320 mOsm/kg (285-295); Potassium 4.1 mmol/L (3.5-5.1); Sodium 141 mmol/L (136-145); Total Bilirubin 0.4 mg/dL (0.15-1.2); Total Protein 6.9 g/dL (6.6-8.7)
[2023-12-19 04:57] LABS: Blood Urea Nitrogen 92 mg/dL (8-23)
--- NOTE | 2023-12-19 05:02 | PC.NURSE ---
pt has been complaining of entire body pain. (her arms, spine, under her ribcage) she has been on bipap since before i got here at 1900. i addressed her pain with some meds just now and she happened to open her eyes. the white of her left eye is almost complete covered with blood. she is refusing dialysis due to the surgeon who would put the temp access in. she is hallucinating as well. details relayed to physician, no new orders received. will continue to monitor.
[2023-12-19] MEDS: albumin 25 G/100 ML BAG 60 G IV ×2 (05:46→14:18)
[2023-12-19 06:04] LABS: Glucose Point of Care 93 mg/dL (70-110)
[2023-12-19] MEDS: heparin 5,000 unit/mL INJ 1 mL 5000 UNIT SUBCUT (06:43)
[2023-12-19] MEDS: budesonide 0.5 mg/2 mL Neb INHALATION ×2 (07:38→19:32)
[2023-12-19] MEDS: amlodipine 10 mg Tablet PO (08:18)
[2023-12-19] MEDS: hyDRALAzine 50 mg Tablet PO ×2 (08:18→14:18)
[2023-12-19] MEDS: insulin glargine 100 units/1 mL 20 UNIT SUBCUT (08:18)
[2023-12-19] MEDS: fluoxetine 20 mg Capsule PO (08:18)
[2023-12-19] MEDS: isosorbide mononitrate ER 60 mg Tablet PO ×2 (08:18→18:06)
[2023-12-19] MEDS: pantoprazole DR 40 mg Tablet PO ×2 (08:18→18:06)
[2023-12-19] MEDS: ferrous sulfate EC 325 mg Tablet PO (08:18)
[2023-12-19] MEDS: sennosides-docusate Tablet 2 TAB PO ×2 (08:18→18:05)
[2023-12-19] MEDS: gabapentin 100 mg Capsule PO ×2 (08:18→18:06)
--- NOTE | 2023-12-19 10:48 | PC.SOCIAL ---
IMM Update pg 2 of IMM Updated and reviewed w/ patient. Copy provided and copy dated, initialed and placed in chart.
[2023-12-19] MEDS: oxyCODONE 5 mg IR Tab/Cap 10 MG PO (11:13)
[2023-12-19 12:07] LABS: Glucose Point of Care 108 mg/dL (70-110)
--- NOTE | 2023-12-19 12:15 | PM.PN ---
Subjective Subjective: c/o pain , poor PO intake on 2 L nc Medications: Reviewed: Yes Vitals/I&O/Wt Last Vital Signs Temp 98.8 F 12/19/23 12:06 Pulse 76 12/19/23 12:06 Resp 17 12/19/23 12:06 BP 125/54 12/19/23 12:06 Pulse Ox 94 12/19/23 12:06 O2 Del Method Nasal Cannula 12/19/23 12:06 O2 Flow Rate 1 12/19/23 08:00 FiO2 28 12/19/23 04:00 12/18/23 12/19/23 12/19/23 22:59 06:59 14:59 Intake Total 200 / 420 220 / 220 Output Total 350 / 730 0 / 730 Balance -150 / -310 0 / -310 220 / 220 Weight last 48 hrs Weight 170.097 kg Weight 166.695 kg Physical Exam Narrative: awake + edema Urinary Catheter Management: Latex Free: Cath Placed During This Visit: yes Reason for Continuing Indwelling Catheter: Accurate Measurement of Urinary Output in Critically Ill Patients Urinary Catheter Date of Insertion: 12/12/23 Urinary Catheter Time of Insertion: 15:39 Data 12/19/23 04:09 12/19/23 04:09 Micro: Microbiology 12/17/23 12:30 Urine Culture - Final Urine,Clean Catch Klebsiella pneumonia esbl A&P Assessment and plan (1) Acute kidney injury superimposed on chronic kidney disease: Plan 1. Acute on chronic kidney disease stage III: Patient's baseline creatinine of 1.5-1.9, has multiple ROSEMARIE's in the past. Now presents with volume overload and creatinine of 2.8 worsened to 3.4 today. -was on Lasix drip with IV albumin every 8 hours, + metolazone 2.5 mg bid daily-->switched to bumex , with no inadequate diuresis so far , - renal fxn worse , - recommend tunnelled catheter placement and temporary HD for volume overload and uremia -2 g sodium restriction and 1500 mL fluid restriction 2. Anemia: s/p transfusion ,will add BOUCHRA 3. Diastolic CHF, diuresis as above, echo 4. Acute on chronic respiratory failure, multifactorial, patient has history of COPD, LIZ and CHF 5. History of diabetes Patient evaluated using audiovisual cart. Time spent 20 minutes. Attestations Medical Necessity Statement*: per [facility] Coding Level of Care Code Acute Code for Chg Fwd Diagnoses Acute kidney injury superimposed on chronic kidney disease N17.9; N18.9
[2023-12-19 14:28] LABS: Creatine Phosphokinase 38 U/L (26-192)
--- NOTE | 2023-12-19 14:30 | SC_ITS ---
WS: [id number] C-ARM RADIOGRAPHS CHEST; 5 IMAGES HISTORY: dialysis catheter placement COMPARISON: None available. Patient is intubated. Intraoperative imaging during placement of a dialysis catheter. Catheter tip ac ross the midline but the patient is also rotated. IMPRESSION: Tip of the RIGHT jugular catheter crosses the midline to the LEFT but this may be due to rotation of the patient.
--- NOTE | 2023-12-19 15:34 | PC.NURSE ---
Talked with patient's daughter Marylu and gave her updates about her mother. She is the POA for her mother but is out of state.
--- NOTE | 2023-12-19 15:40 | USR_ITS ---
PROCEDURE INFORMATION: Exam: US Duplex Right Lower Extremity Veins, Limited Exam date and time: 12/19/2023 5:45 PM Age: 68 years old Clinical indication: Swelling (edema) of limb; Upper extremity, right; Additional info: Swelling, assess for dvt TECHNIQUE: Imaging protocol: Real-time duplex ultrasound of the right extremity with 2-D wilson scale, color Doppler flow and spectral waveform analysis including responses to compression and other maneuvers (when performed) with image documentation. Limited exam was focused on the right lower extremity veins. COMPARISON: CT chest abdpel w/*[id number] 12/27/2021 6:55 PM FINDINGS: Right deep veins: Unremarkable. The common femoral, femoral, proximal profunda femoral and popliteal veins are patent without thrombus. Normal Doppler waveforms. Normal compressibility and/or augmentation response. Superficial veins: Unremarkable. Saphenofemoral junction is patent without thrombus. Soft tissues: Unremarkable. US/[place] [id number] IMPRESSION: No evidence of deep vein thrombosis.
[2023-12-19 17:01] LABS: Glucose Point of Care 95 mg/dL (70-110)
--- NOTE | 2023-12-19 17:28 | P.CONIM_ITS ---
Providers/Reason For Consult 2 Consulting Physician/Specialty*: Dr. Berrios/cardiothoracic surgery Reason for Consult*: Request for dialysis catheter Requesting Physician: Dr. Doe Attending Physician: Morris Doe Primary Care Provider: PARAG Mensah History of Present Illness History of Present Illness Jennifer Novak is a 68 year old female Whom was admitted [facility] on December 12 after presenting with acute on chronic renal insufficiency. She is under the care of the hospitalist service and has had consultations with our nephrology service as well as with cardiology and Dr. Aquino. She has had progressive renal dysfunction and has been recommended that she undergo tunneled dialysis catheter placement for hopefully short-term hemodialysis. Presently, at the time of my exam she is in the cardiac stepdown unit on a BiPAP. She is somewhat somnolent though does answer questions, somewhat inconsistently. I spoke with her nurse today and she feels that it would be beneficial to obtain informed consent from her daughter Marylu who has power of managing attorney. I have conferred with my colleague, Dr. Mayo concerning need for dialysis catheter placement. Apparently refer to general surgeon is unavailable at this time. He stated that nephrology request was for a temporary dialysis catheter though I note in the most recent progress note from nephrology services today that a tunneled dialysis catheter is requested. Review of Systems 2 General: Reports: ROS unobtainable due to medical condition Medications/Allergies Home Medications Medication Instructions Recorded Confirmed Last Taken Type cholecalciferol (vitamin D3) 125 125 mcg PO DAILY 05/14/21 12/12/23 12/12/23 History mcg (5,000 unit) tablet (Vitamin D3) acetaminophen 325 mg tablet 325 - 650 mg PO Q6H PRN Pain 12/13/21 12/12/23 Unknown History cyanocobalamin (vitamin B-12) 50 50 mcg PO DAILY ##0 04/12/22 12/12/23 12/12/23 History mcg tablet (Vitamin B-12) blood-glucose meter (OneTouch #1 ea 09/29/22 12/12/23 Unknown Rx Ultra2 Meter kit) diabetic shoes with inserts #1 ea 02/25/23 12/12/23 Unknown Rx isosorbide mononitrate 60 mg 60 mg PO DAILY #90 tabs 04/13/23 12/12/23 12/12/23 Rx tablet,extended release 24 hr hydroxychloroquine 200 mg tablet 200 mg PO BID #180 tabs 05/02/23 12/12/23 12/12/23 Rx triamcinolone acetonide 0.1 % 1 applic topical DAILY PRN itching 05/10/23 12/12/23 12/11/23 Rx topical ointment #30 grams lancets 33 gauge ([employer]raft[employer] #100 ea 05/13/23 12/12/23 Unknown Rx Lancets) lancing device with lancets kit #1 ea 05/13/23 12/12/23 Unknown Rx ([employer] Plus Lancing Device kit) fluoxetine 20 mg capsule 20 mg PO DAILY 08/13/23 12/12/23 12/12/23 History fluoxetine 40 mg capsule 40 mg PO BEDTIME 08/13/23 12/12/23 12/11/23 History magnesium oxide 400 mg PO DAILY PRN Muscle Spasm 08/13/23 12/12/23 12/12/23 History oxycodone 5 mg tablet 2.5 - 5 mg PO Q8H PRN Pain 09/08/23 12/12/23 12/12/23 History rosuvastatin 10 mg tablet 10 mg PO QPM 09/08/23 12/12/23 12/11/23 History albuterol sulfate 90 mcg/actuation 2 puff inhalation Q4H PRN 09/15/23 12/12/23 08/13/23 20:00 Rx aerosol inhaler (ProAir HFA) shortness of breath or wheezing #8.5 grams amlodipine 10 mg tablet 10 mg PO DAILY #60 tabs 09/15/23 12/12/23 12/12/23 Rx bumetanide 2 mg tablet 2 mg PO BID #90 tabs 09/15/23 12/12/23 12/12/23 08:00 Rx hydralazine 25 mg tablet 50 mg (2 x 25 mg) PO TID #90 tabs 09/15/23 12/12/23 12/12/23 Rx metoprolol tartrate 25 mg tablet 25 mg PO BID #60 tabs 09/15/23 12/12/23 12/12/23 Rx dicyclomine 20 mg tablet 20 mg PO QID PRN stooling 10/12/23 12/12/23 12/12/23 History insulin degludec 200 unit/mL (3 80 unit (0.4 mL) SUBCUT DAILY #18 10/12/23 12/12/23 12/12/23 Rx mL) subcutaneous pen (Tresiba mL FlexTouch U-200 insulin) pantoprazole 40 mg tablet,delayed 40 mg PO DAILY 10/12/23 12/12/23 12/12/23 History release nystatin 100,000 unit/gram topical 1 applic topical BID #15 grams 10/26/23 12/12/23 12/12/23 Rx powder (Nystop) hydroxyzine pamoate 50 mg capsule 50 mg PO .at bedtime #90 caps 10/28/23 12/12/23 12/11/23 Rx Bariatric emy lift #1 ea 11/04/23 12/12/23 Unknown Rx blood sugar diagnostic (OneTouch #100 ea 11/21/23 12/12/23 Unknown Rx Ultra Test strips) pen needle, diabetic 31 gauge x #200 ea 11/21/23 12/12/23 Unknown Rx 5/16 (TechLITE Pen Needle) potassium chloride 10 mEq 10 meq PO BID #60 tabs 11/21/23 12/12/23 12/12/23 Rx tablet,extended release insulin lispro 100 unit/mL See Rx Instructions SUBCUT 11/25/23 12/12/23 12/12/23 Rx subcutaneous pen (Humalog KwikPen .COMPLEX #15 mL (U-100) Insulin) nitroglycerin 0.4 mg sublingual 0.4 mg sublingual Q5M PRN Chest 11/25/23 12/12/23 Unknown Rx tablet (Nitrostat) Pain #50 tabs ferrous sulfate 325 mg (65 mg 325 mg PO DAILY #30 tabs 11/30/23 12/12/23 12/12/23 08:00 Rx iron) tablet,delayed release Allergies Allergy/AdvReac Type Severity Reaction Status Date / Time acetaminophen [From [place]] Allergy Unknown Verified 12/12/23 14:09 bacitracin Allergy ADR-Nausea Verified 12/12/23 14:09 codeine Allergy ADR-Nausea Verified 12/12/23 14:09 hydrocodone [From [place]] Allergy Unknown Verified 12/12/23 14:09 Latex, Natural Rubber Allergy Unknown Verified 12/12/23 14:09 morphine Allergy ADR-Itching Verified 12/12/23 14:09 neomycin Allergy ALGY-Rash Verified 12/12/23 14:09 [From Neosporin ([id number])] polymyxin B Allergy ALGY-Rash Verified 12/12/23 14:09 [From Neosporin ([id number])] Sulfa (Sulfonamide Allergy ADR-Nausea Verified 12/12/23 14:09 Antibiotics) sulfamethoxazole Allergy Unknown Verified 12/12/23 14:09 [From Bactrim] trimethoprim [From Bactrim] Allergy Unknown Verified 12/12/23 14:09 spironolactone AdvReac Severe temporary Uncoded 12/12/23 14:09 blindness Current Medications Generic Name Dose Route Start Last Admin Trade Name Freq PRN Reason Stop Dose Admin Albuterol/Ipratropium 3 ml 12/18/23 14:00 12/19/23 15:54 Ipratropium-Albuterol 3 Ml Neb INHALATION 3 ml Q6H.RESP HERMINIO Administration Alprazolam 0.5 mg 12/17/23 16:06 12/17/23 16:39 Alprazolam 0.5 Mg Tablet PO 0.5 mg TID PRN Administration ANXIETY Amlodipine Besylate 10 mg 12/13/23 09:00 12/19/23 08:18 Amlodipine 10 Mg Tablet PO 10 mg DAILY HERMINIO Administration Atorvastatin Calcium 20 mg 12/12/23 21:00 12/18/23 20:50 Atorvastatin 40 Mg Tablet PO 20 mg BEDTIME HERMINIO Administration Benzocaine 1 each 12/16/23 09:00 12/17/23 08:38 Cetylpyridinium Lozenge MUCOUS MEM 1 each Q2H PRN Administration SORE THROAT Budesonide 0.5 mg 12/18/23 20:00 12/19/23 07:38 Budesonide 0.5 Mg/2 Ml Neb INHALATION 0.5 mg BID.RESPIRATORY HERMINIO Administration Cyclobenzaprine HCl 10 mg 12/15/23 07:52 12/17/23 08:38 Cyclobenzaprine 10 Mg Tablet PO 10 mg TID PRN Administration MUSCLE SPASMS Ferrous Sulfate 325 mg 12/13/23 09:00 12/19/23 08:18 Ferrous Sulfate Ec 325 Mg Tablet PO 325 mg DAILY HERMINIO Administration Fluoxetine HCl 20 mg 12/13/23 09:00 12/19/23 08:18 Fluoxetine 20 Mg Capsule PO 20 mg DAILY HERMINIO Administration Gabapentin 100 mg 12/17/23 16:20 12/19/23 08:18 Gabapentin 100 Mg Capsule PO 100 mg BID HERMINIO Administration Hydralazine HCl 50 mg 12/12/23 21:00 12/19/23 14:18 Hydralazine 50 Mg Tablet PO 50 mg TID HERMINIO Administration Hydromorphone HCl 0.5 mg 12/13/23 11:18 12/19/23 16:15 Hydromorphone 1 Mg/Ml Inj 1 Ml IVP 0.5 mg Q6H PRN Administration PAIN Albumin Human 25 g in 100 mls @ 60 mls/hr 12/14/23 13:30 12/19/23 16:14 Albumin IV Infused Q8H HERMINIO Infusion Insulin Glargine 20 unit 12/15/23 09:00 12/19/23 08:18 Insulin Glargine 100 Units/1 Ml SUBCUT 20 unit DAILY HERMINIO Administration Insulin Human Lispro 0 unit 12/12/23 21:00 12/19/23 17:03 Insulin Lispro 100 Unit/1 Ml SUBCUT Not Given WM&BEDTIME [facility] Protocol Isosorbide Mononitrate 60 mg 12/18/23 18:00 12/19/23 08:18 Isosorbide Mononitrate Er 60 Mg Tablet PO 60 mg BID HERMINIO Administration Nystatin 1 applic 12/13/23 09:00 12/19/23 09:19 Nystatin Powder 30 Gm Btl TOPICAL Not Given BID [facility] Oxycodone HCl 10 mg 12/15/23 07:52 12/19/23 11:13 Oxycodone 5 Mg Ir Tab/Cap PO 10 mg Q8H PRN Administration MODERATE PAIN Pantoprazole Sodium 40 mg 12/13/23 09:00 12/19/23 08:[address] 40 Mg Tablet PO 40 mg BID HERMINIO Administration Senna/Docusate Sodium 2 tab 12/16/23 18:00 12/19/23 08:18 Sennosides-Docusate Tablet PO 2 tab BID HERMINIO Administration Trazodone HCl 100 mg 12/12/23 21:00 12/18/23 20:50 Trazodone 100 Mg Tablet PO 100 mg BEDTIME HERMIINO Administration PFSH Acute 2 PFSH: Medical History Type 2 diabetes mellitus with diabetic chronic kidney disease Gastric ulcer H. pylori ruled out at [facility]-acquired pneumonia Acute exacerbation of CHF (congestive heart failure) Acute on chronic renal failure Diabetic gastroparesis Hypoxia Anemia Positive GIFTY (antinuclear antibody) Frequent falls Muscle spasm High risk medication use Seronegative rheumatoid arthritis of both hands Diabetic foot Hip pain, left Benign hypertension Atypical chest pain IgM monoclonal gammopathy of uncertain significance Chronic diastolic heart failure Intermittent atrial fibrillation Chest pain Edema CKD (chronic kidney disease) stage 3, GFR 30-59 ml/min Urinary disorder Anxiety Pneumonitis Left lumbar radiculopathy Back pain Lymph edema Fracture of distal end of fibula Syncope and collapse Essential tremor Mobility impaired IBS (irritable bowel syndrome) Inflammatory arthritis Chronic back pain Chronic major depressive disorder Peripheral neuropathy Polyarthralgia Edema, peripheral Noncompliance with diabetes treatment Not consistent with diet Near syncope Monoclonal gammopathy Major depression Diabetic neuropathy associated with type 2 diabetes mellitus Severe obstructive sleep apnea Mild cognitive impairment with memory loss Dietary noncompliance Atrial flutter Coronary artery fistula Chronic obstructive pulmonary disease, unspecified Obesity CKD (chronic kidney disease) Benign hypertension Fibromyalgia Diverticulosis Environmental and seasonal allergies Situational anxiety Vitamin D deficiency Surgical History History of left heart catheterization (2018) No significant obstructive coronary disease Hx of esophagogastroduodenoscopy Hx of colonoscopy History of tonsillectomy History of section 4 times History of cholecystectomy (1993) History of hysterectomy (1997) with BSO Family History Brother Bleeding disorder CAD (coronary artery disease) Father CAD (coronary artery disease) Chronic kidney disease (CKD) Mother CAD (coronary artery disease) Cancer Diabetes Family/Other Cancer Other CHF (congestive heart failure) Heart disease Hypertension Denies family history of Clotting disorder Dementia Suicide Anesthesia complication Lung disease Stroke Social History Smoking and tobacco/nicotine status: former use of tobacco/nicotine Quit status (tobacco/nicotine): has quit using Year quit tobacco: 1990 Former quit date comment: smoked 20+ years Second hand smoke exposure: No Alcohol intake: never Substance/Drug Use: never Adopted: No Caregiver/support person: Yes Lives independently: No Household members: children and other Details: Son, sometimes grandson Housing: House Marital status: Single service: No Current occupational status: disabled Do you think of yourself as: Straight/Heterosexual Current gender identity: Female Vitals/I&O/Wt Last Vital Signs Temp 98.4 F 12/19/23 16:19 Pulse 75 12/19/23 16:19 Resp 12 12/19/23 16:19 BP 163/66 12/19/23 16:19 Pulse Ox 96 12/19/23 16:19 O2 Del Method BiPAP 12/19/23 16:19 O2 Flow Rate 2 12/19/23 14:00 FiO2 28 12/19/23 16:08 12/19/23 12/19/23 12/19/23 06:59 14:59 22:59 Intake Total 220 / 220 100 / 320 Output Total 0 / 730 Balance 0 / -310 220 / 220 100 / 320 Weight last 48 hrs Weight 375 lb Weight 367 lb 8 oz Physical Exam 2 HENMT: COMMON NORMALS: normocephalic, atraumatic and external ears normal H EAD & SCALP: normocephalic and atraumatic EXTERNAL EAR: Yes external ears normal Neck/C-Spine: COMMON NORMALS: no lymphadenopathy and No carotid bruits O THER: Neck rotation limited by BiPAP strap Chest: COMMONS NORMALS: normal inspection of the chest and normal palpation of entire chest wall Resp: OTHER: Mild basilar crackles bilaterally. Cardio: COMMON NORMALS: regular rate, regular rhythm and S1 normal heart sound present RATE: regular rate RHYTHM: regular rhythm HEART SOUNDS: S1 normal heart sound present GI: INSPECTION: Yes central obesity AUSCULTATION: Yes Hypoactive bowel sounds present and No Abdominal bruit Extremity: NARRATIVE EXTREMITY EXAM: 2+ pretibial edema Neuro: OTHER: Unable to fully assess due to somnolent state Urinary Catheter Management: Latex Free: Cath Placed During This Visit: yes Reason for Continuing Indwelling Catheter: Accurate Measurement of Urinary Output in Critically Ill Patients Urinary Catheter Date of Insertion: 12/12/23 Urinary Catheter Time of Insertion: 15:39 Data 12/19/23 04:09 12/19/23 04:09 Micro: Microbiology 12/17/23 12:30 Urine Culture - Final Urine,Clean Catch Klebsiella pneumonia esbl A&P Assessment and plan (1) ROSEMARIE (acute kidney injury): Acute on chronic renal insufficiency. I have conferred with Ms. Novak's daughter Marylu concerning nephrology recommendation for tunneled hemodialysis catheter. Details and risk of this procedure were frankly discussed. The somewhat tenuous state of her mother is also carefully reviewed and she has a full understanding of this. She also states that during a prior attempted dialysis catheter through the groin last July, patient had a substantial bleeding episode and nearly . She is followed by oncology for a low level IgM monoclonal gammopathy. Significance is uncertain. We will plan to proceed tomorrow morning in the operating room theater for tunneled dialysis catheter, with plans tentatively to approach the right IJ under fluoroscopy. I carefully discussed with her daughter risk of this procedure, particular given the somewhat tenuous medical condition of her mother. Risks reviewed include possible , major bleeding, stroke, pneumothorax requiring chest tube, major vascular injury resulting in hemorrhage and , temporary or permanent hoarseness, inability to place a catheter, need for further modifications to the catheter or new catheter placement due to dysfunction. Her daughter appears to have a clear understanding of her mother's condition and has given consent by phone which has been witnessed by her staff nurse. Consult Attestations 2 Medical Necessity Statement: Acute on chronic renal insufficiency in need of hemodialysis Coding Level of Care Code Acute Code for g Fwd Diagnoses ROSEMARIE (acute kidney injury) N17.9
--- NOTE | 2023-12-19 17:42 | P.PN_ITS ---
Subjective 2 Subjective: Patient is currently on a BiPAP. No significant improvement in urine output. Nephrology is considering dialysis. BUN/creatinine levels are going up. Medications: Medication Review Details: Current Medications Albuterol/Ipratropium (Ipratropium-Albuterol 3 Ml Neb) 3 ml INHALATION Q6H.RESP HERMINIO Last Admin: 12/19/23 15:54 Dose: 3 ml Alprazolam (Alprazolam 0.5 Mg Tablet) 0.5 mg PO TID PRN PRN Reason: ANXIETY Last Admin: 12/17/23 16:39 Dose: 0.5 mg Amlodipine Besylate (Amlodipine 10 Mg Tablet) 10 mg PO DAILY [facility] Last Admin: 12/19/23 08:18 Dose: 10 mg Atorvastatin Calcium (Atorvastatin 40 Mg Tablet) 20 mg PO BEDTIME [facility] Last Admin: 12/18/23 20:50 Dose: 20 mg Benzocaine (Cetylpyridinium Lozenge) 1 each MUCOUS MEM Q2H PRN PRN Reason: SORE THROAT Last Admin: 12/17/23 08:38 Dose: 1 each Budesonide (Budesonide 0.5 Mg/2 Ml Neb) 0.5 mg INHALATION BID.RESPIRATORY [facility] Last Admin: 12/19/23 07:38 Dose: 0.5 mg Chlorhexidine Gluconate (Chlorhexidine Gluconate 4% Btl 118 Ml) 1 applic TOPICAL BID [facility] Cyclobenzaprine HCl (Cyclobenzaprine 10 Mg Tablet) 10 mg PO TID PRN PRN Reason: MUSCLE SPASMS Last Admin: 12/17/23 08:38 Dose: 10 mg Dextrose (Dextrose 50% Syringe 50 Ml) 25 ml IVP ONCE PRN; Protocol PRN Reason: hypoglycemia protocol Dextrose (Dextrose 50% Syringe 50 Ml) 50 ml IVP PRN PRN; Protocol PRN Reason: hypoglycemia protocol Ferrous Sulfate (Ferrous Sulfate Ec 325 Mg Tablet) 325 mg PO DAILY [facility] Last Admin: 12/19/23 08:18 Dose: 325 mg Fluoxetine HCl (Fluoxetine 20 Mg Capsule) 20 mg PO DAILY [facility] Last Admin: 12/19/23 08:18 Dose: 20 mg Gabapentin (Gabapentin 100 Mg Capsule) 100 mg PO BID [facility] Last Admin: 12/19/23 08:18 Dose: 100 mg Hydralazine HCl (Hydralazine 50 Mg Tablet) 50 mg PO TID [facility] Last Admin: 12/19/23 14:18 Dose: 50 mg Hydromorphone HCl (Hydromorphone 1 Mg/Ml Inj 1 Ml) 0.5 mg IVP Q6H PRN PRN Reason: PAIN Last Admin: 12/19/23 16:15 Dose: 0.5 mg Dextrose (D5w) 500 mls @ 0 mls/hr IV ONCE PRN; Protocol PRN Reason: Adult Acute Hypoglycemia Prot Albumin Human (Albumin) 25 g in 100 mls @ 60 mls/hr IV Q8H [facility] Last Infusion: 12/19/23 16:14 Dose: Infused Insulin Glargine (Insulin Glargine 100 Units/1 Ml) 20 unit SUBCUT DAILY [facility] Last Admin: 12/19/23 08:18 Dose: 20 unit Insulin Human Lispro (Insulin Lispro 100 Unit/1 Ml) 0 unit SUBCUT WM&BEDTIME [facility]; Protocol Last Admin: 12/19/23 17:03 Dose: Not Given Isosorbide Mononitrate (Isosorbide Mononitrate Er 60 Mg Tablet) 60 mg PO BID [facility] Last Admin: 12/19/23 08:18 Dose: 60 mg Naloxone HCl (Naloxone 0.4 Mg/Ml Sdv) 0.4 mg IVP PRN PRN PRN Reason: RESPIRATORY RATE < 8/MIN Nystatin (Nystatin Powder 30 Gm Btl) 1 applic TOPICAL BID [facility] Last Admin: 12/19/23 09:19 Dose: Not Given Ondansetron HCl (Ondansetron 2 Mg/Ml Sdv 2 Ml) 4 mg IVP Q6H PRN PRN Reason: vomiting, or N/V if npo Oxycodone HCl (Oxycodone 5 Mg Ir Tab/Cap) 10 mg PO Q8H PRN PRN Reason: MODERATE PAIN Last Admin: 12/19/23 11:13 Dose: 10 mg Pantoprazole Sodium (Pantoprazole Dr 40 Mg Tablet) 40 mg PO BID [facility] Last Admin: 12/19/23 08:18 Dose: 40 mg Senna/Docusate Sodium (Sennosides-Docusate Tablet) 2 tab PO BID [facility] Last Admin: 12/19/23 08:18 Dose: 2 tab Trazodone HCl (Trazodone 100 Mg Tablet) 100 mg PO BEDTIME [facility] Last Admin: 12/18/23 20:50 Dose: 100 mg Vitals/I&O/Wt Last Vital Signs Temp 98.4 F 12/19/23 16:19 Pulse 75 12/19/23 16:19 Resp 12 12/19/23 16:19 BP 163/66 12/19/23 16:19 Pulse Ox 96 12/19/23 16:19 O2 Del Method BiPAP 12/19/23 16:19 O2 Flow Rate 2 12/19/23 14:00 FiO2 28 12/19/23 16:08 12/19/23 12/19/23 12/19/23 06:59 14:59 22:59 Intake Total 220 / 220 100 / 320 Output Total 0 / 730 Balance 0 / -310 220 / 220 100 / 320 Weight last 48 hrs Weight 375 lb Weight 367 lb 8 oz Physical Exam 2 Narrative: GENERAL: The patient is somewhat sedated. Not in any acute distress. On BiPAP HEENT: No significant pallor, icterus or lymphadenopathy.Oral cavity: There are no mucous membrane lesions. NECK: Trachea appears to be central. No masses noted. No JVD or thyromegaly appreciated. RESPIRATORY: Chest is symmetrical. No intercostals muscle retraction or any accessory muscle activation. There is no chest wall tenderness. Breath sounds are heard bilaterally. No rales or rhonchi heard. No evidence of any consolidation. BREASTS: Deferred. HEART: The heart sounds are normal. No S3 or S4. No significant murmurs. No pericardial rub ABDOMEN: No vessel pulsations or distention. No tenderness. No organomegaly appreciated. Bowel sounds are normally heard. Abdominal wall edema of the lower abdomen : Deferred. RECTAL: Deferred. LYMPHATIC: No lymphadenopathy noted in the neck. EXTREMITIES: 2-3+ edema MUSCULOSKELETAL: No acute joint deformities or swelling SKIN: There are no significant rashes or ecchymosis NEUROPSYCHIATRIC: The patient is alert and oriented x3. Appears to be in a good mood. No tremors or rigidity noted. Urinary Catheter Management: Latex Free: Cath Placed During This Visit: yes Reason for Continuing Indwelling Catheter: Accurate Measurement of Urinary Output in Critically Ill Patients Urinary Catheter Date of Insertion: 12/12/23 Urinary Catheter Time of Insertion: 15:39 Data 12/19/23 04:09 12/19/23 04:09 Other Labs: Laboratory Last Values WBC 8.45 10^3/uL (3.29-11.43) 12/19/23 04:09 RBC 2.86 10^6/uL (3.85-5.65) L 12/19/23 04:09 Hgb 8.30 g/dL (11.27-16.99) L 12/19/23 04:09 Hct 26.3 % (36-47) L 12/19/23 04:09 MCV 92.0 fl (85-98) 12/19/23 04:09 MCH 29.0 pg (27-33) 12/19/23 04:09 MCHC 31.6 g/dL (30-55) 12/19/23 04:09 RDW 15.5 % (12.1-15.1) H 12/19/23 04:09 Plt Count 137 10^3/cmm (157-399) L 12/19/23 04:09 MPV 10.3 fL (7.4-10.4) 12/19/23 04:09 Neut % (Auto) 81.3 % 12/19/23 04:09 Lymph % (Auto) 5.9 % 12/19/23 04:09 Rains % (Auto) 9.2 % 12/19/23 04:09 Eos % (Auto) 2.7 % 12/19/23 04:09 Baso % (Auto) 0.5 % 12/19/23 04:09 Neut # (Auto) 6.87 10^3/uL (1.8-7.7) 12/19/23 04:09 Lymph # (Auto) 0.5 10^3/uL (0.8-4.8) L 12/19/23 04:09 Rains # (Auto) 0.8 10^3/uL (0.2-0.9) 12/19/23 04:09 Eos # (Auto) 0.2 10^3/uL (0.0-0.8) 12/19/23 04:09 Baso # (Auto) 0.0 10^3/uL (0.0-0.1) 12/19/23 04:09 Nucleated RBC % (auto) 0 % 12/19/23 04:09 Nucleated RBCs # 0.0 /100WBC 12/19/23 04:09 PT 15.70 SECONDS (12.1-14.9) H 12/12/23 14:58 INR 1.21 (0.8-1.2) H 12/12/23 14:58 Specimen Type Arterial 12/17/23 11:20 Sample Site Radial, right 12/17/23 11:20 ABG pH 7.32 (7.35-7.45) L 12/17/23 11:20 ABG pCO2 52.2 mmHg (35-45) H 12/17/23 11:20 ABG pO2 75.0 mmHg (80.0-100.0) L 12/17/23 11:20 ABG PO2/FiO2 Ratio 0 12/17/23 11:20 ABG HCO3 26.8 mmol/L (22-26) H 12/17/23 11:20 ABG Base Excess 0.3 mmol/L (-2.0-2.0) 12/17/23 11:20 Sharad Test Pos 12/17/23 11:20 Hematocrit 27.5 % (37-47) L 12/17/23 11:20 O2 Delivery Device Nc 12/17/23 11:20 O2 Liters/Min 2.0 % 12/17/23 11:20 FiO2 28.0 % 12/17/23 11:20 [employer] Director ID Carlitosa 12/17/23 11:20 Sodium 141 mmol/L (136-145) 12/19/23 04:09 Potassium 4.1 mmol/L (3.5-5.1) 12/19/23 04:09 Chloride 99 mmol/L (98-107) 12/19/23 04:09 Carbon Dioxide 26 mmol/L (22-29) 12/19/23 04:09 Anion Gap 20.1 (5-19) H 12/19/23 04:09 BUN 92 mg/dL (8-23) H* 12/19/23 04:09 Creatinine 4.2 mg/dL (0.5-0.9) H 12/19/23 04:09 GFR Calculation 10.6 mL/min (90-130) L 12/19/23 04:09 Glucose 96 mg/dL (65-115) 12/19/23 04:09 POC Glucose 95 mg/dL (70-110) 12/19/23 16:54 Calculated Osmolality 320 mOsm/kg (285-295) H 12/19/23 04:09 Calcium 9.6 mg/dL (8.5-10.5) 12/19/23 04:09 Magnesium 2.8 mg/dL (1.7-2.3) H 12/17/23 03:05 Total Bilirubin 0.4 mg/dL (0.15-1.2) 12/19/23 04:09 AST 15 U/L (0-32) 12/19/23 04:09 ALT 10 U/L (0-33) 12/19/23 04:09 Alkaline Phosphatase 66 U/L (35-105) 12/19/23 04:09 Creatine Kinase 38 U/L (26-192) 12/19/23 04:09 Troponin T Baseline 73 ng/L (0-10) H 12/12/23 14:58 Troponin T 120 Minute 70.53 ng/L (0-10) H 12/12/23 16:53 Delta Troponin T -2.47 ABS# (0-10) L 12/12/23 16:53 Troponin T Hi Sens 6Hr 70.55 ng/L (0-10) H 12/12/23 20:29 Troponin T Hi Sens 6Hr Delta -2.45 ng/L (0-12) L 12/12/23 20:29 NT-Pro-B Natriuret Pep 9694 pg/mL (0-125) H 12/12/23 14:58 Total Protein 6.9 g/dL (6.6-8.7) 12/19/23 04:09 Albumin 4.7 g/dL (3.5-5.2) 12/19/23 04:09 Globulin 2.2 g/dL (1.3-4.6) 12/19/23 04:09 Urine Color Yellow (Yellow) 12/17/23 12:30 Urine Appearance Clear (CLEAR) 12/17/23 12:30 Urine pH 5 (5-7) 12/17/23 12:30 Ur Specific [employer] 1.010 (1.005-1.030) 12/17/23 12:30 Urine Protein Trace (Negative) 12/17/23 12:30 Urine Glucose (UA) Norm (Normal) 12/17/23 12:30 Urine Ketones Negative (Negative) 12/17/23 12:30 Urine Blood 3+ (Negative) H 12/17/23 12:30 Urine Nitrate Negative (Negative) 12/17/23 12:30 Urine Bilirubin Neg (Negative) 12/17/23 12:30 Urine Urobilinogen Norm mg/dL (Negative) 12/17/23 12:30 Ur Leukocyte Esterase Negative (Negative) 12/17/23 12:30 Urine RBC 25-40 /hpf (0-2) H 12/17/23 12:30 Urine WBC 5-10 /hpf (0-5) H 12/17/23 12:30 Ur Squamous Epith Cells 0-4 /hpf (0-5) H 12/17/23 12:30 Amorphous Sediment Not Reportable 12/17/23 12:30 Urine Bacteria 2+ /hpf (NONE) H 12/17/23 12:30 Hyaline Casts 0-4 /lpf H 12/17/23 12:30 Ur Random Sodium 57 mmol/L 12/17/23 12:30 Ur Random Potassium 60 mmol/L 12/17/23 12:30 Ur Random Chloride 96 mmol/L 12/17/23 12:30 Urine Creatinine 47 mg/dL (28-217) 12/17/23 12:30 Blood Type B Positive 12/15/23 07:46 Rho(D) Type Rh positive 12/15/23 07:46 Antibody Screen Negative 12/15/23 07:46 Crossmatch See Detail 12/15/23 07:46 Micro: Microbiology 12/17/23 12:30 Urine Culture - Final Urine,Clean Catch Klebsiella pneumonia esbl A&P Assessment and plan (1) Acute on chronic diastolic (congestive) heart failure: The worsening kidney function may be a contributing factor for the cardiac decompensation. Currently she seems to be saturating well with the BiPAP. (2) Generalized edema: Multifactorial. Worsening kidney function, anemia, lack of mobility, diastolic heart failure, etc. patient is in the process of getting the dialysis (3) Acute kidney injury superimposed on chronic kidney disease: Hemodialysis being considered. (4) Chronic obstructive pulmonary disease, unspecified: Patient is on bronchodilator treatment. Management as per the primary Qualifiers: COPD type: unspecified COPD Qualified Code(s): J44.9 - Chronic obstructive pulmonary disease, unspecified (5) Type 2 diabetes mellitus with diabetic chronic kidney disease: Aggressive management of the hyperglycemia would be appropriate Qualifiers: Diabetes mellitus termite 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 insulin use: with termite 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 use Chronic kidney disease stage: stage 4 (severe) Qualified Code(s): E11.22 - Type 2 diabetes mellitus with diabetic chronic kidney disease; N18.4 - Chronic kidney disease, stage 4 (severe); Z79.4 - half-way (current) use of insulin (6) Benign hypertension: Increase the hydralazine to 100 mg 3 times a day (7) Anemia: Status post blood transfusion x 1. Hemoglobin seems to be holding up. Will continue the close monitoring. Qualifiers: Anemia type: iron deficiency Iron deficiency anemia type: inadequate dietary iron intake Qualified Code(s): D50.8 - Other iron deficiency anemias Plan Based on the clinical progress, further recommendations will be made Attestations 2 Medical Necessity Statement*: Deferred to the primary Coding Level of Care Code 47149 Diagnoses Acute on chronic diastolic (congestive) heart failure I50.33 Generalized edema R60.1 Acute kidney injury superimposed on chronic kidney disease N17.9; N18.9 Chronic obstructive pulmonary disease, unspecified COPD type J44.9 COPD type: unspecified COPD Type 2 diabetes mellitus with stage 4 chronic kidney disease, with long-term current use of insulin E11.22; N18.4; Z79.4 Diabetes mellitus termite 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 insulin use: with termite 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 use Chronic kidney disease stage: stage 4 (severe) Benign hypertension I10 Iron deficiency anemia secondary to inadequate dietary iron intake D50.8 Anemia type: iron deficiency Iron deficiency anemia type: inadequate dietary iron intake
--- NOTE | 2023-12-19 18:11 | P.PN_ITS ---
Subjective 2 Subjective: Feeling achy today, feeling weaker, having trouble raising her arms. Arms are more swollen. Somewhat worse on the right. Additionally asked me to check around the room about a dog running in. Medications: Reviewed: Yes Medication Review Details: Current Medications Albuterol/Ipratropium (Ipratropium-Albuterol 3 Ml Neb) 3 ml INHALATION Q6H.RESP HERMINIO Last Admin: 12/19/23 15:54 Dose: 3 ml Alprazolam (Alprazolam 0.5 Mg Tablet) 0.5 mg PO TID PRN PRN Reason: ANXIETY Last Admin: 12/17/23 16:39 Dose: 0.5 mg Amlodipine Besylate (Amlodipine 10 Mg Tablet) 10 mg PO DAILY [facility] Last Admin: 12/19/23 08:18 Dose: 10 mg Atorvastatin Calcium (Atorvastatin 40 Mg Tablet) 20 mg PO BEDTIME [facility] Last Admin: 12/18/23 20:50 Dose: 20 mg Benzocaine (Cetylpyridinium Lozenge) 1 each MUCOUS MEM Q2H PRN PRN Reason: SORE THROAT Last Admin: 12/17/23 08:38 Dose: 1 each Budesonide (Budesonide 0.5 Mg/2 Ml Neb) 0.5 mg INHALATION BID.RESPIRATORY [facility] Last Admin: 12/19/23 07:38 Dose: 0.5 mg Chlorhexidine Gluconate (Chlorhexidine Gluconate 4% Btl 118 Ml) 1 applic TOPICAL BID [facility] Cyclobenzaprine HCl (Cyclobenzaprine 10 Mg Tablet) 10 mg PO TID PRN PRN Reason: MUSCLE SPASMS Last Admin: 12/17/23 08:38 Dose: 10 mg Dextrose (Dextrose 50% Syringe 50 Ml) 25 ml IVP ONCE PRN; Protocol PRN Reason: hypoglycemia protocol Dextrose (Dextrose 50% Syringe 50 Ml) 50 ml IVP PRN PRN; Protocol PRN Reason: hypoglycemia protocol Ferrous Sulfate (Ferrous Sulfate Ec 325 Mg Tablet) 325 mg PO DAILY [facility] Last Admin: 12/19/23 08:18 Dose: 325 mg Fluoxetine HCl (Fluoxetine 20 Mg Capsule) 20 mg PO DAILY [facility] Last Admin: 12/19/23 08:18 Dose: 20 mg Gabapentin (Gabapentin 100 Mg Capsule) 100 mg PO BID [facility] Last Admin: 12/19/23 08:18 Dose: 100 mg Hydralazine HCl (Hydralazine 50 Mg Tablet) 50 mg PO TID [facility] Last Admin: 12/19/23 14:18 Dose: 50 mg Hydromorphone HCl (Hydromorphone 1 Mg/Ml Inj 1 Ml) 0.5 mg IVP Q6H PRN PRN Reason: PAIN Last Admin: 12/19/23 16:15 Dose: 0.5 mg Dextrose (D5w) 500 mls @ 0 mls/hr IV ONCE PRN; Protocol PRN Reason: Adult Acute Hypoglycemia Prot Albumin Human (Albumin) 25 g in 100 mls @ 60 mls/hr IV Q8H [facility] Last Infusion: 12/19/23 16:14 Dose: Infused Insulin Glargine (Insulin Glargine 100 Units/1 Ml) 20 unit SUBCUT DAILY [facility] Last Admin: 12/19/23 08:18 Dose: 20 unit Insulin Human Lispro (Insulin Lispro 100 Unit/1 Ml) 0 unit SUBCUT WM&BEDTIME [facility]; Protocol Last Admin: 12/19/23 17:03 Dose: Not Given Isosorbide Mononitrate (Isosorbide Mononitrate Er 60 Mg Tablet) 60 mg PO BID [facility] Last Admin: 12/19/23 08:18 Dose: 60 mg Naloxone HCl (Naloxone 0.4 Mg/Ml Sdv) 0.4 mg IVP PRN PRN PRN Reason: RESPIRATORY RATE < 8/MIN Nystatin (Nystatin Powder 30 Gm Btl) 1 applic TOPICAL BID [facility] Last Admin: 12/19/23 09:19 Dose: Not Given Ondansetron HCl (Ondansetron 2 Mg/Ml Sdv 2 Ml) 4 mg IVP Q6H PRN PRN Reason: vomiting, or N/V if npo Oxycodone HCl (Oxycodone 5 Mg Ir Tab/Cap) 10 mg PO Q8H PRN PRN Reason: MODERATE PAIN Last Admin: 12/19/23 11:13 Dose: 10 mg Pantoprazole Sodium (Pantoprazole Dr 40 Mg Tablet) 40 mg PO BID [facility] Last Admin: 12/19/23 08:18 Dose: 40 mg Senna/Docusate Sodium (Sennosides-Docusate Tablet) 2 tab PO BID [facility] Last Admin: 12/19/23 08:18 Dose: 2 tab Trazodone HCl (Trazodone 100 Mg Tablet) 100 mg PO BEDTIME [facility] Last Admin: 12/18/23 20:50 Dose: 100 mg Vitals/I&O/Wt Last Vital Signs Temp 98.4 F 12/19/23 16:19 Pulse 75 12/19/23 16:19 Resp 12 12/19/23 16:19 BP 163/66 12/19/23 16:19 Pulse Ox 96 12/19/23 16:19 O2 Del Method BiPAP 12/19/23 16:19 O2 Flow Rate 2 12/19/23 14:00 FiO2 28 12/19/23 16:08 12/19/23 12/19/23 12/19/23 06:59 14:59 22:59 Intake Total 220 / 220 100 / 320 Output Total 0 / 730 Balance 0 / -310 220 / 220 100 / 320 Weight last 48 hrs Weight 170.097 kg Weight 166.695 kg Physical Exam 2 Narrative: Generally weak Const: COMMON NORMALS: alert GENERAL APPEARANCE: cooperative O RIENTATION/CONSCIOUSNESS: Yes awake HENMT: COMMON NORMALS: oropharynx normal Neck/C-Spine: COMMON NORMALS: no JVD Resp: COMMON NORMALS: normal respiratory effort and clear to auscultation bilaterally AUSCULTATION: clear to auscultation bilaterally Cardio: COMMON NORMALS: no JVD, regular rhythm, S1 normal heart sound present, S2 normal heart sound present and No murmurs present (Cardio) RHYTHM: regular rhythm HEART SOUNDS: S1 normal heart sound present and S2 normal heart sound present GI: COMMON NORMALS: Normal to inspection, nondistended, normoactive bowel sounds present, Soft to palpation and non-tender PALPATION: Yes Soft to palpation Extremity: COMMON NORMALS: no joint enlargement OTHER: Anasarca, both lower extremities and upper extremities. Right upper extremity worse swelling. Swelling/puffiness of both hands. Hands are warm, perfused. Neuro: COMMON NORMALS: moves all extremities SENSORIUM/ORIENTATION: Yes alert Urinary Catheter Management: Latex Free: Cath Placed During This Visit: yes Reason for Continuing Indwelling Catheter: Accurate Measurement of Urinary Output in Critically Ill Patients Urinary Catheter Date of Insertion: 12/12/23 Urinary Catheter Time of Insertion: 15:39 Data 12/19/23 04:09 12/19/23 04:09 Micro: Microbiology 12/17/23 12:30 Urine Culture - Final Urine,Clean Catch Klebsiella pneumonia esbl A&P Assessment and plan (1) ROSEMARIE (acute kidney injury): Reviewed vitals, CBC, CMP, urine output. Has not produced much urine despite previous attempts with diuretic drip, currently with worsening renal function despite being off drip too. Creatinine up to 4.2, BUN up to 92. Lackluster urine output. With some intermittent confusion, possibly uremic symptoms. Does have anasarca, improving edema, weaker. Was assessed by nephrology, as per discussion with surgery nurse would benefit from making preparations and proceeding to renal replacement therapy at least on a temporary basis, reassess renal function, urine output. This particular surgeon preferences, as per discussion with the patient and family, cardiovascular surgeon, plans for temporary hemodialysis catheter placement and initiation of dialysis. Additionally with muscle aches, on statin, requested CK. Reviewed, normal. Reviewed nephrology note. Reviewed CT surgery note. Reviewed cardiology note. Discussed with patient's daughter/DPOA. Discussed with case sealer. Repeat chemistry requested. (2) SOB (shortness of breath): Continue oxygen support, BiPAP support as needed and with sleep for LIZ Arrangements for hemodialysis. Most likely a combination of obstructive sleep apnea, diastolic heart failure, COPD and anxiety. Keep oxygen supplementation over 88 to 90%. Nebulization treatment. (3) Acute exacerbation of congestive heart failure: Lackluster urine output. Worsening renal function. Arrangements for renal replacement therapy as above. Echocardiogram showed ejection fraction within normal limits right ventricular dilation bilateral atrial enlarged tricuspid regurgitation no pericardial. Most likely diastolic heart failure. Patient takes Bumex 2 mg twice daily at home. Overall around 1200 cc negative since admission. With very poor response to aggressive diuresis with worsening of renal functions. Appreciate chest x-ray for mild CHF. Continue with fluid restriction up to 1500 cc. For now we will hold off on further diuresis and monitor respiratory status and renal functions. Strict input charting, daily weights. Juárez catheterization. ABG also suggestive of hypercapnia and mild hypoxia. Not sure about CHF being the only reason for patient's shortness of breath. There is component of anxiety as well. Continue with Xanax 0.5 every 8 hourly as needed. Cannot give morphine as patient has morphine allergy with itching. Though has been able to tolerate hydromorphone. Continue with home dose of duloxetine. Blood pressure is elevated. Increase Imdur to 60 mg twice daily. Imdur will help with pulmonary vascular dilatation as well. Qualifiers: Heart failure type: unspecified Qualified Code(s): I50.9 - Heart failure, unspecified (4) LIZ (obstructive sleep apnea): BiPAP nightly and when resting. Patient is due for a sleep study as an outpatient. Patient will benefit with BiPAP as an outpatient on discharge also. (5) Chronic obstructive pulmonary disease, unspecified: Nebulization treatment as above. Qualifiers: COPD type: unspecified COPD Qualified Code(s): J44.9 - Chronic obstructive pulmonary disease, unspecified (6) Anemia: Reviewed hemoglobin, without worsening. Reviewed platelets, mildly decreased 137. Hemoglobin 8.3, improved following transfusion of 1 unit packed red blood cells on December 15 Anemia likely related to chronic kidney disease, autoimmune disease. Continue with Protonix twice daily. Continue with oral iron supplementation. Qualifiers: Anemia type: iron deficiency Iron deficiency anemia type: inadequate dietary iron intake Qualified Code(s): D50.8 - Other iron deficiency anemias (7) Type 2 diabetes mellitus with diabetic chronic kidney disease: Sliding scale insulin Continue long-acting insulin Consistent carb diet Qualifiers: Diabetes mellitus skilled nursing insulin use: with dairy farm supervisor use Chronic kidney disease stage: stage 4 (severe) Qualified Code(s): E11.22 - Type 2 diabetes mellitus with diabetic chronic kidney disease; N18.4 - Chronic kidney disease, stage 4 (severe); Z79.4 - manager semiconductor (current) use of insulin Plan Generalized weakness: Possibly uremic symptoms, arrangements for renal replacement therapy as above. Possibly myopathy with statin, held atorvastatin for now. Check CK, reviewed, normal. Possibly some contribution of UTI, starting antibiotic as per discussion with her daughter. UTI: Complicated UTI with MDRO Klebsiella resistant to all antibiotics except ceramics and and imipenem. Discussed with her daughter. Discussed consideration of treatment, risks, benefits, risks and setting of marked renal failure. Will adjust dose with meropenem, monitor for risk of seizure. Decrease dose to 500 mg in 24 hours. Anasarca: Arrangements for renal replacement therapy as above. Were swelling of right upper extremity compared to left: Assess venous duplex for any DVT. Constipation is multifactorial. senna 2 tablets twice daily, monitor for bowel movement. Hypertension: amlodipine 10 mg daily, hydralazine 50 mg 3 times daily, Imdur. Full code Heparin for DVT prophylaxis Attestations 2 Medical Necessity Statement*: Continue admission for assessment management of acute renal failure, anasarca, CHF exacerbation, complicated UTI, additional, comorbidities as above. and High Time for a total of 60 minutes, includes reviewing past or interval history, examining/interviewing patient, placing orders, counseling patient/family/other support, updating patient/family/other support, discussing plan of care with staff, communicating with other healthcare providers, documenting encounter and coordinating care Diagnoses ROSEMARIE (acute kidney injury) N17.9 SOB (shortness of breath) R06.02 Acute exacerbation of congestive heart failure I50.9 Heart failure type: unspecified LIZ (obstructive sleep apnea) G47.33 Chronic obstructive pulmonary disease, unspecified COPD type J44.9 COPD type: unspecified COPD Iron deficiency anemia secondary to inadequate dietary iron intake D50.8 Anemia type: iron deficiency Iron deficiency anemia type: inadequate dietary iron intake Type 2 diabetes mellitus with stage 4 chronic kidney disease, with long-term current use of insulin E11.22; N18.4; Z79.4 Diabetes mellitus dairy farm supervisor insulin use: with dairy farm supervisor use Chronic kidney disease stage: stage 4 (severe)
--- NOTE | 2023-12-19 19:30 | SUR.PREOP ---
Time out for midline insertion
[2023-12-19] MEDS: meropenem 500 MG in sodium chloride 0.9% (plus) 50 ML 100 MG IV (21:54)
[2023-12-19 21:55] LABS: Glucose Point of Care 98 mg/dL (70-110)
[2023-12-19] MEDS: trazodone 100 mg Tablet PO (22:00)
[2023-12-19] MEDS: hyDRALAzine 50 mg Tablet 100 MG PO (22:00)
[2023-12-20] VITALS (81 sets, daily range): BP systolic 132–194; BP diastolic 52–93; PULSE 60–83; RESP 5–26; TEMP 35.8–37.1; O2SAT 85–100; BMI 66.4
[2023-12-20] MEDS: ipratropium-albuterol 3 mL Neb INHALATION ×3 (02:38→20:12)
[2023-12-20] MEDS: HYDROmorphone 1 mg/mL INJ 1 mL 0.5 MG IVP (04:20)
--- NOTE | 2023-12-20 05:27 | P.PN_ITS ---
Subjective 2 Subjective: Ms. Novak is resting this morning with BiPAP in position. O2 saturation 94 to 96%. She is arousable though is still intermittently confused. Nurses report no major concerns overnight though she does desaturate without BiPAP in place. Vitals/I&O/Wt Last Vital Signs Temp 97.6 F 12/20/23 04:00 Pulse 77 12/20/23 05:25 Resp 26 H 12/20/23 04:20 BP 173/72 12/20/23 04:00 Pulse Ox 96 12/20/23 04:20 O2 Del Method BiPAP 12/20/23 04:00 O2 Flow Rate 2 12/19/23 14:00 FiO2 28 12/20/23 02:41 12/19/23 12/19/23 12/20/23 14:59 22:59 06:59 Intake Total 260 / 260 150 / 410 0 / 410 Output Total 350 / 350 75 / 425 Balance 260 / 260 -200 / 60 -75 / -15 Weight last 48 hrs Weight 375 lb Physical Exam 2 Resp: AUSCULTATION: rales Cardio: COMMON NORMALS: regular rate, regular rhythm and S1 normal heart sound present RATE: regular rate RHYTHM: regular rhythm HEART SOUNDS: S1 normal heart sound present Extremity: NARRATIVE EXTREMITY EXAM: 2+ lower extremity edema. There is incr eased edema of the right upper extremity. Urinary Catheter Management: Latex Free: Cath Placed During This Visit: yes Reason for Continuing Indwelling Catheter: Accurate Measurement of Urinary Output in Critically Ill Patients Urinary Catheter Date of Insertion: 12/12/23 Urinary Catheter Time of Insertion: 15:39 Data 12/19/23 04:09 12/19/23 04:09 Micro: Microbiology 12/17/23 12:30 Urine Culture - Final Urine,Clean Catch Klebsiella pneumonia esbl A&P Assessment and plan (1) ROSEMARIE (acute kidney injury): Progressing acute on chronic renal failure. We will plan to proceed with attempt at dialysis catheter placement this morning. Send requested for tunnel dialysis catheter by neurology service, I would prefer a right IJ approach. Given her need for BiPAP and her volume overload and general body habitus, airway control will be paramount and may require intubation at the discretion of our anesthesia service. It may be prudent to consider transfer to ICU post procedure with initiation of hemodialysis. I conferred with her daughter, Marylu, yesterday who provided verbal phone consent which was witnessed. I will keep in close contact with her during the perioperative period Attestations 2 Medical Necessity Statement*: Acute on chronic renal failure Coding Level of Care Code Acute Code for [facility] Fwd Diagnoses ROSEMARIE (acute kidney injury) N17.9
[2023-12-20 06:17] LABS: Basophils # 0.1 10^3/uL (0.0-0.1); Basophils % 0.6 %; Eosinophils # 0.1 10^3/uL (0.0-0.8); Eosinophils % 1.5 %; Hematocrit 26.4 % (36-47); Lymphocytes # 0.5 10^3/uL (0.8-4.8); Lymphocytes % 5.9 %; Mean Corpuscular HGB Conc 31.1 g/dL (30-55); Mean Corpuscular Hemoglobin 28.5 pg (27-33); Mean Corpuscular Volume 91.7 fl (85-98); Mean Platelet Volume 10.5 fL (7.4-10.4); Monocytes # 0.9 10^3/uL (0.2-0.9); Monocytes % 10.8 %; Neutrophils # 6.87 10^3/uL (1.8-7.7); Neutrophils % 80.8 %; Nucleated Red Blood Cells % 0 %; Platelet Count 133 10^3/cmm (157-399); Red Blood Count 2.88 10^6/uL (3.85-5.65); Red Cell Distribution Width 15.6 % (12.1-15.1)
[2023-12-20 06:30] LABS: Glucose Point of Care 102 mg/dL (70-110)
[2023-12-20 06:37] LABS: Alanine Aminotransferase 11 U/L (0-33); Albumin Level 4.6 g/dL (3.5-5.2); Alkaline Phosphatase 73 U/L (35-105); Anion Gap 20.9 (5-19); Aspartate Amino Transferase 16 U/L (0-32); Calcium 9.8 mg/dL (8.5-10.5); Carbon Dioxide 25 mmol/L (22-29); Chloride 99 mmol/L (98-107); Globulin 2.3 g/dL (1.3-4.6); Glucose 110 mg/dL (65-115); Osmolality Calculated 325 mOsm/kg (285-295); Potassium 3.9 mmol/L (3.5-5.1); Sodium 141 mmol/L (136-145); Total Bilirubin 0.4 mg/dL (0.15-1.2); Total Protein 6.9 g/dL (6.6-8.7)
--- NOTE | 2023-12-20 06:41 | P.PN_ITS ---
Subjective 2 Subjective: no new c/o Medications: Reviewed: Yes Vitals/I&O/Wt Last Vital Signs Temp 97.6 F 12/20/23 04:00 Pulse 77 12/20/23 05:25 Resp 26 H 12/20/23 04:20 BP 173/72 12/20/23 04:00 Pulse Ox 96 12/20/23 04:20 O2 Del Method BiPAP 12/20/23 04:00 O2 Flow Rate 2 12/19/23 14:00 FiO2 28 12/20/23 02:41 12/19/23 12/19/23 12/20/23 14:59 22:59 06:59 Intake Total 260 / 260 150 / 410 0 / 410 Output Total 350 / 350 75 / 425 Balance 260 / 260 -200 / 60 -75 / -15 Weight last 48 hrs Weight 165.017 kg Weight 170.097 kg Weight 170.097 kg Physical Exam 2 Narrative: intubated Urinary Catheter Management: Latex Free: Cath Placed During This Visit: yes Reason for Continuing Indwelling Catheter: Accurate Measurement of Urinary Output in Critically Ill Patients Urinary Catheter Date of Insertion: 12/12/23 Urinary Catheter Time of Insertion: 15:39 Data 12/20/23 06:04 12/20/23 06:04 Micro: Microbiology 12/17/23 12:30 Urine Culture - Final Urine,Clean Catch Klebsiella pneumonia esbl A&P Assessment and plan (1) Acute kidney injury superimposed on chronic kidney disease: Plan 1. Acute on chronic kidney disease stage III: Patient's baseline creatinine of 1.5-1.9, has multiple ROSEMARIE's in the past. Now presents with volume overload and creatinine of 2.8 worsened to 3.4 today. -was on Lasix drip with IV albumin every 8 hours, + metolazone 2.5 mg bid daily-->switched to bumex , with no inadequate diuresis so far , - renal fxn worse , - S/P tunnelled catheter placement and HD today -2 g sodium restriction and 1500 mL fluid restriction 2. Anemia: s/p transfusion ,will add BOUCHRA 3. Diastolic CHF, diuresis as above, echo 4. Acute on chronic respiratory failure, multifactorial, patient has history of COPD, LIZ and CHF 5. History of diabetes Patient evaluated using audiovisual cart. Time spent 20 minutes. Attestations 2 Medical Necessity Statement*: per mediicar Coding Level of Care Code Acute Code for [facility] Fwd Diagnoses Acute kidney injury superimposed on chronic kidney disease N17.9; N18.9
--- NOTE | 2023-12-20 06:50 | ANES.PREANE2 ---
Pre-Anesthetic Assessment Height/Weight: Height 1.6 m Weight 169.644 kg Temp Pulse Resp BP Pulse Ox O2 Del Method O2 Flow Rate 98.1 F 80 18 143/67 96 Mechanical Ventilation 2 12/21/23 04:00 12/21/23 06:00 12/21/23 04:25 12/21/23 04:00 12/21/23 04:25 12/21/23 04:00 12/19/23 14:00 FiO2 50 12/21/23 04:25 Operation Date: 12/20/23 07:00 Proposed Procedures p Split Nikos Catheter Placement(Not Applicable) - Michael Berrios MD Familial anesthetic complications: none Was Beta Lynsey taken within 24 hours: Yes Was Clonidine taken within 24 hours: N/A Last intake: Intake Last Liquid Date 12/19/23 Last Solid Date 12/19/23 Social No alcohol Exam alert, oriented x 3, clear to auscultation bilaterally and regular rate & rhythm [place] Airway Mallampati: Class IV Dentition: chipped Pulmonary Sleep Apnea CV/HEM Congestive Heart Failure coronary fistuale Chronic Renal Failure Metabolic Diabetes Mellitus and Morbid Obesity Neuropsych Cerebrovascular Accident Anesthetic Plan ASA status: 4 Anesthesia: General Risk of > 500 ml blood loss (7ml/kg in children): No Medications/Allergies Home Medications Medication Instructions Recorded Confirmed Last Taken Type cholecalciferol (vitamin D3) 125 125 mcg PO DAILY 05/14/21 12/12/23 12/12/23 History mcg (5,000 unit) tablet (Vitamin D3) acetaminophen 325 mg tablet 325 - 650 mg PO Q6H PRN Pain 12/13/21 12/12/23 Unknown History cyanocobalamin (vitamin B-12) 50 50 mcg PO DAILY ##0 04/12/22 12/12/23 12/12/23 History mcg tablet (Vitamin B-12) blood-glucose meter (OneTouch #1 ea 09/29/22 12/12/23 Unknown Rx Ultra2 Meter kit) diabetic shoes with inserts #1 ea 02/25/23 12/12/23 Unknown Rx isosorbide mononitrate 60 mg 60 mg PO DAILY #90 tabs 04/13/23 12/12/23 12/12/23 Rx tablet,extended release 24 hr hydroxychloroquine 200 mg tablet 200 mg PO BID #180 tabs 05/02/23 12/12/2324 Rx triamcinolone acetonide 0.1 % 1 applic topical DAILY PRN itching 05/10/23 12/12/23 12/11/23 Rx topical ointment #30 grams lancets 33 gauge (EZDOCTOR Delica #100 ea 05/13/23 12/12/23 Unknown Rx Lancets) lancing device with lancets kit #1 ea 05/13/23 12/12/23 Unknown Rx ([employer] Plus Lancing Device kit) fluoxetine 20 mg capsule 20 mg PO DAILY 08/13/23 12/12/23 12/12/23 History fluoxetine 40 mg capsule 40 mg PO BEDTIME 08/13/23 12/12/23 12/11/23 History magnesium oxide 400 mg PO DAILY PRN Muscle Spasm 08/13/23 12/12/23 12/12/23 History oxycodone 5 mg tablet 2.5 - 5 mg PO Q8H PRN Pain 09/08/23 12/12/23 12/12/23 History rosuvastatin 10 mg tablet 10 mg PO QPM 09/08/23 12/12/23 12/11/23 History albuterol sulfate 90 mcg/actuation 2 puff inhalation Q4H PRN 09/15/23 12/12/23 08/13/23 20:00 Rx aerosol inhaler (ProAir HFA) shortness of breath or wheezing #8.5 grams amlodipine 10 mg tablet 10 mg PO DAILY #60 tabs 09/15/23 12/12/23 12/12/23 Rx bumetanide 2 mg tablet 2 mg PO BID #90 tabs 09/15/23 12/12/23 12/12/23 08:00 Rx hydralazine 25 mg tablet 50 mg (2 x 25 mg) PO TID #90 tabs 09/15/23 12/12/23 12/12/23 Rx metoprolol tartrate 25 mg tablet 25 mg PO BID #60 tabs 09/15/23 12/12/23 12/12/23 Rx dicyclomine 20 mg tablet 20 mg PO QID PRN stooling 10/12/23 12/12/23 12/12/23 History insulin degludec 200 unit/mL (3 80 unit (0.4 mL) SUBCUT DAILY #18 1112/12/23 12/12/23 Rx mL) subcutaneous pen (Tresiba mL FlexTouch U-200 insulin) pantoprazole 40 mg tablet,delayed 40 mg PO DAILY 10/12/23 12/12/23 12/12/23 History release nystatin 100,000 unit/gram topical 1 applic topical BID #15 grams 10/26/23 12/12/23 12/12/23 Rx powder (Nystop) hydroxyzine pamoate 50 mg capsule 50 mg PO .at bedtime #90 caps 10/28/23 12/12/23 12/11/23 Rx Bariatric emy lift #1 ea 11/04/23 12/12/23 Unknown Rx blood sugar diagnostic (OneTouch #100 ea 11/21/23 12/12/23 Unknown Rx Ultra Test strips) pen needle, diabetic 31 gauge x #200 ea 11/21/23 12/12/23 Unknown Rx 16 (TechLITE Pen Needle) potassium chloride 10 mEq 10 meq PO BID #60 tabs 11/21/23 12/12/23 12/12/23 Rx tablet,extended release insulin lispro 100 unit/mL See Rx Instructions SUBCUT 11/25/23 12/12/23 12/12/23 Rx subcutaneous pen (Humalog KwikPen .COMPLEX #15 mL (U-100) Insulin) nitroglycerin 0.4 mg sublingual 0.4 mg sublingual Q5M PRN Chest 11/25/23 12/12/23 Unknown Rx tablet (Nitrostat) Pain #50 tabs ferrous sulfate 325 mg (65 mg 325 mg PO DAILY #30 tabs 11/30/23 12/12/23 12/12/23 08:00 Rx iron) tablet,delayed release Allergies Allergy/AdvReac Type Severity Reaction Status Date / Time acetaminophen [From [place]] Allergy Unknown Verified 12/12/23 14:09 bacitracin Allergy ADR-Nausea Verified 12/12/23 14:09 codeine Allergy ADR-Nausea Verified 12/12/23 14:09 hydrocodone [From [place]] Allergy Unknown Verified 12/12/23 14:09 Latex, Natural Rubber Allergy Unknown Verified 12/12/23 14:09 morphine Allergy ADR-Itching Verified 12/12/23 14:09 neomycin Allergy ALGY-Rash Verified 12/12/23 14:09 [From Neosporin ([id number])] polymyxin B Allergy ALGY-Rash Verified 12/12/23 14:09 [From Neosporin ([id number])] Sulfa (Sulfonamide Allergy ADR-Nausea Verified 12/12/23 14:09 Antibiotics) sulfamethoxazole Allergy Unknown Verified 12/12/23 14:09 [From Bactrim] trimethoprim [From Bactrim] Allergy Unknown Verified 12/12/23 14:09 spironolactone AdvReac Severe temporary Uncoded 12/12/23 14:09 blindness Current Medications Generic Name Dose Route Start Last Admin Trade Name Freq PRN Reason Stop Dose Admin Albuterol/Ipratropium 3 ml 12/18/23 14:00 12/21/23 02:04 Ipratropium-Albuterol 3 Ml Neb INHALATION 3 ml Q6H.RESP HERMINIO Administration Alprazolam 0.5 mg 12/17/23 16:06 12/17/23 16:39 Alprazolam 0.5 Mg Tablet PO 0.5 mg TID PRN Administration ANXIETY Amlodipine Besylate 10 mg 12/13/23 09:00 12/19/23 08:18 Amlodipine 10 Mg Tablet PO 10 mg DAILY HERMINIO Administration Atorvastatin Calcium 20 mg 12/12/23 21:00 12/18/23 20:50 Atorvastatin 40 Mg Tablet PO 20 mg BEDTIME HERMINIO Administration Benzocaine 1 each 12/16/23 09:00 12/17/23 08:38 Cetylpyridinium Lozenge MUCOUS MEM 1 each Q2H PRN Administration SORE THROAT Budesonide 0.5 mg 12/18/23 20:00 12/20/23 20:12 Budesonide 0.5 Mg/2 Ml Neb INHALATION 0.5 mg BID.RESPIRATORY HERMINIO Administration Cyclobenzaprine HCl 10 mg 12/15/23 07:52 12/17/23 08:38 Cyclobenzaprine 10 Mg Tablet PO 10 mg TID PRN Administration MUSCLE SPASMS Ferrous Sulfate 325 mg 12/13/23 09:00 12/19/23 08:18 Ferrous Sulfate Ec 325 Mg Tablet PO 325 mg DAILY HERMINIO Administration Fluoxetine HCl 20 mg 12/13/23 09:00 12/19/23 08:18 Fluoxetine 20 Mg Capsule PO 20 mg DAILY HERMINIO Administration Gabapentin 100 mg 12/17/23 16:20 12/19/23 18:06 Gabapentin 100 Mg Capsule PO 100 mg BID HERMINIO Administration Heparin Sodium (Porcine) 5,000 unit 12/20/23 21:15 12/20/23 21:24 Heparin 5,000 Unit/Ml Inj 1 Ml SUBCUT 5,000 unit Q12H HERMINIO Administration Hydralazine HCl 100 mg 12/19/23 21:00 12/20/23 20:28 Hydralazine 50 Mg Tablet PO 100 mg TID HERMINIO Administration Hydromorphone HCl 0.5 mg 12/13/23 11:18 12/20/23 04:20 Hydromorphone 1 Mg/Ml Inj 1 Ml IVP 0.5 mg Q6H PRN Administration PAIN Albumin Human 25 g in 100 mls @ 60 mls/hr 12/14/23 13:30 12/19/23 16:14 Albumin IV Infused Q8H [facility] Infusion Meropenem 500 mg/ Sodium 50 mls @ 100 mls/hr 12/19/23 21:51 12/20/23 21:47 Chloride IV Infused Q24H [facility] Infusion Protocol Propofol 1,000 mg in 100 mls @ 0 mls/hr 12/20/23 09:00 12/21/23 04:02 Diprivan IV 30 mcg/kg/min .Q0M HERMINIO 29.7 mls/hr Administration Protocol Per Protocol Fentanyl 1,000 mcg in 100 mls @ 0 mls/hr 12/20/23 09:00 12/21/23 01:06 Sublimaze IV 75 mcg/hr .Q0M HERMINIO 7.5 mls/hr Administration Protocol Per Protocol Insulin Glargine 20 unit 12/15/23 09:00 12/19/23 08:18 Insulin Glargine 100 Units/1 Ml SUBCUT 20 unit DAILY [facility] Administration Insulin Human Lispro 0 unit 12/12/23 21:00 12/20/23 21:18 Insulin Lispro 100 Unit/1 Ml SUBCUT Not Given WM&BEDTIME [facility] Protocol Isosorbide Mononitrate 60 mg 12/18/23 18:00 12/19/23 18:06 Isosorbide Mononitrate Er 60 Mg Tablet PO 60 mg BID HERMINIO Administration Nystatin 1 applic 12/13/23 09:00 12/20/23 17:43 Nystatin Powder 30 Gm Btl TOPICAL 1 applic BID [facility] Administration Oxycodone HCl 10 mg 12/15/23 07:52 12/19/23 11:13 Oxycodone 5 Mg Ir Tab/Cap PO 10 mg Q8H PRN Administration MODERATE PAIN Pantoprazole Sodium 40 mg 12/13/23 09:00 12/19/23 18:[address] 40 Mg Tablet PO 40 mg BID HERMINIO Administration Senna/Docusate Sodium 2 tab 12/16/23 18:00 12/20/23 17:36 Sennosides-Docusate Tablet PO Not Given BID HERMINIO Trazodone HCl 100 mg 12/12/23 21:00 12/19/23 22:00 Trazodone 100 Mg Tablet PO 100 mg BEDTIME HERMINIO Administration Additional Medication Information Current Medications Albuterol/Ipratropium (Ipratropium-Albuterol 3 Ml Neb) 3 ml INHALATION Q6H.RESP HERMINIO Last Admin: 12/19/23 15:54 Dose: 3 ml Alprazolam (Alprazolam 0.5 Mg Tablet) 0.5 mg PO TID PRN PRN Reason: ANXIETY Last Admin: 12/17/23 16:39 Dose: 0.5 mg Amlodipine Besylate (Amlodipine 10 Mg Tablet) 10 mg PO DAILY HERMINIO Last Admin: 12/19/23 08:18 Dose: 10 mg Atorvastatin Calcium (Atorvastatin 40 Mg Tablet) 20 mg PO BEDTIME HERMINIO Last Admin: 12/18/23 20:50 Dose: 20 mg Benzocaine (Cetylpyridinium Lozenge) 1 each MUCOUS MEM Q2H PRN PRN Reason: SORE THROAT Last Admin: 12/17/23 08:38 Dose: 1 each Budesonide (Budesonide 0.5 Mg/2 Ml Neb) 0.5 mg INHALATION BID.RESPIRATORY HERMINIO Last Admin: 12/19/23 07:38 Dose: 0.5 mg Chlorhexidine Gluconate (Chlorhexidine Gluconate 4% Btl 118 Ml) 1 applic TOPICAL BID HERMINIO Cyclobenzaprine HCl (Cyclobenzaprine 10 Mg Tablet) 10 mg PO TID PRN PRN Reason: MUSCLE SPASMS Last Admin: 12/17/23 08:38 Dose: 10 mg Dextrose (Dextrose 50% Syringe 50 Ml) 25 ml IVP ONCE PRN; Protocol PRN Reason: hypoglycemia protocol Dextrose (Dextrose 50% Syringe 50 Ml) 50 ml IVP PRN PRN; Protocol PRN Reason: hypoglycemia protocol Ferrous Sulfate (Ferrous Sulfate Ec 325 Mg Tablet) 325 mg PO DAILY [facility] Last Admin: 12/19/23 08:18 Dose: 325 mg Fluoxetine HCl (Fluoxetine 20 Mg Capsule) 20 mg PO DAILY [facility] Last Admin: 12/19/23 08:18 Dose: 20 mg Gabapentin (Gabapentin 100 Mg Capsule) 100 mg PO BID [facility] Last Admin: 12/19/23 08:18 Dose: 100 mg Hydralazine HCl (Hydralazine 50 Mg Tablet) 50 mg PO TID [facility] Last Admin: 12/19/23 14:18 Dose: 50 mg Hydromorphone HCl (Hydromorphone 1 Mg/Ml Inj 1 Ml) 0.5 mg IVP Q6H PRN PRN Reason: PAIN Last Admin: 12/19/23 16:15 Dose: 0.5 mg Dextrose (D5w) 500 mls @ 0 mls/hr IV ONCE PRN; Protocol PRN Reason: Adult Acute Hypoglycemia Prot Albumin Human (Albumin) 25 g in 100 mls @ 60 mls/hr IV Q8H [facility] Last Infusion: 12/19/23 16:14 Dose: Infused Insulin Glargine (Insulin Glargine 100 Units/1 Ml) 20 unit SUBCUT DAILY [facility] Last Admin: 12/19/23 08:18 Dose: 20 unit Insulin Human Lispro (Insulin Lispro 100 Unit/1 Ml) 0 unit SUBCUT WM&BEDTIME [facility]; Protocol Last Admin: 12/19/23 17:03 Dose: Not Given Isosorbide Mononitrate (Isosorbide Mononitrate Er 60 Mg Tablet) 60 mg PO BID [facility] Last Admin: 12/19/23 08:18 Dose: 60 mg Naloxone HCl (Naloxone 0.4 Mg/Ml Sdv) 0.4 mg IVP PRN PRN PRN Reason: RESPIRATORY RATE < 8/MIN Nystatin (Nystatin Powder 30 Gm Btl) 1 applic TOPICAL BID [facility] Last Admin: 12/19/23 09:19 Dose: Not Given Ondansetron HCl (Ondansetron 2 Mg/Ml Sdv 2 Ml) 4 mg IVP Q6H PRN PRN Reason: vomiting, or N/V if npo Oxycodone HCl (Oxycodone 5 Mg Ir Tab/Cap) 10 mg PO Q8H PRN PRN Reason: MODERATE PAIN Last Admin: 12/19/23 11:13 Dose: 10 mg Pantoprazole Sodium (Pantoprazole Dr 40 Mg Tablet) 40 mg PO BID [facility] Last Admin: 12/19/23 08:18 Dose: 40 mg Senna/Docusate Sodium (Sennosides-Docusate Tablet) 2 tab PO BID [facility] Last Admin: 12/19/23 08:18 Dose: 2 tab Trazodone HCl (Trazodone 100 Mg Tablet) 100 mg PO BEDTIME [facility] Last Admin: 12/18/23 20:50 Dose: 100 mg PFSH Anesthesia Medical History Type 2 diabetes mellitus with diabetic chronic kidney disease Gastric ulcer H. pylori ruled out at [facility]-acquired pneumonia Acute exacerbation of CHF (congestive heart failure) Acute on chronic renal failure Diabetic gastroparesis Hypoxia Anemia Positive GIFTY (antinuclear antibody) Frequent falls Muscle spasm High risk medication use Seronegative rheumatoid arthritis of both hands Diabetic foot Hip pain, left Benign hypertension Atypical chest pain IgM monoclonal gammopathy of uncertain significance Chronic diastolic heart failure Intermittent atrial fibrillation Chest pain Edema CKD (chronic kidney disease) stage 3, GFR 30-59 ml/min Urinary disorder Anxiety Pneumonitis Left lumbar radiculopathy Back pain Lymph edema Fracture of distal end of fibula Syncope and collapse Essential tremor Mobility impaired IBS (irritable bowel syndrome) Inflammatory arthritis Chronic back pain Chronic major depressive disorder Peripheral neuropathy Polyarthralgia Edema, peripheral Noncompliance with diabetes treatment Not consistent with diet Near syncope Monoclonal gammopathy Major depression Diabetic neuropathy associated with type 2 diabetes mellitus Severe obstructive sleep apnea Mild cognitive impairment with memory loss Dietary noncompliance Atrial flutter Coronary artery fistula Chronic obstructive pulmonary disease, unspecified Obesity CKD (chronic kidney disease) Benign hypertension Fibromyalgia Diverticulosis Environmental and seasonal allergies Situational anxiety Vitamin D deficiency Surgical History History of left heart catheterization (2018) No significant obstructive coronary disease Hx of esophagogastroduodenoscopy Hx of colonoscopy History of tonsillectomy History of section 4 times History of cholecystectomy (1993) History of hysterectomy (1997) with BSO Family History Brother Bleeding disorder CAD (coronary artery disease) Father CAD (coronary artery disease) Chronic kidney disease (CKD) Mother CAD (coronary artery disease) Cancer Diabetes Family/Other Cancer Other CHF (congestive heart failure) Heart disease Hypertension Denies family history of Clotting disorder Dementia Suicide Anesthesia complication Lung disease Stroke Social History Smoking and tobacco/nicotine status: former use of tobacco/nicotine Quit status (tobacco/nicotine): has quit using Year quit tobacco: 1990 Former quit date comment: smoked 20+ years Second hand smoke exposure: No Alcohol intake: never Substance/Drug Use: never Adopted: No Caregiver/support person: Yes Lives independently: No Household members: children and other Details: Son, sometimes grandson Housing: House Marital status: Single service: No Current occupational status: disabled Do you think of yourself as: Straight/Heterosexual Current gender identity: Female Data Anesthesia 12/21/23 04:27 12/21/23 04:27 Short CBC 12/20/23 12/21/23 Range/Units 06:04 04:27 WBC 8.50 8.67 (3.29-11.43) 10^3/uL Hgb 8.20 L 7.70 L (11.27-16.99) g/dL Hct 26.4 L 24.3 L (36-47) % MCV 91.7 89.3 (85-98) fl Plt Count 133 L 114 L (157-399) 10^3/cmm Neut % (Auto) 80.8 80.7 % Neut # (Auto) 6.87 7.00 (1.8-7.7) 10^3/uL BMP 12/20/23 12/21/23 06:04 04:27 Sodium 141 140 Potassium 3.9 3.4 L Chloride 99 99 Carbon Dioxide 25 25 BUN 104 H* 70 H Creatinine 4.4 H 3.6 H Glucose 110 131 H Calcium 9.8 9.3 Cardiac Enzymes 12/19/23 Range/Units 04:09 Creatine Kinase 38 (26-192) U/L Liver Function 12/20/23 12/21/23 Range/Units 06:04 04:27 Total Bilirubin 0.4 0.3 (0.15-1.2) mg/dL AST 16 14 (0-32) U/L ALT 11 9 (0-33) U/L Alkaline Phosphatase 73 57 (35-105) U/L Albumin 4.6 3.9 (3.5-5.2) g/dL ABG 12/20/23 12/20/23 12/21/23 10:49 16:08 04:32 Specimen Type Arterial Arterial Arterial Sample Site Radial, right Radial, right Radial, right ABG pH 7.30 L 7.33 L 7.36 ABG pCO2 53.1 H 50.5 H 48.5 H ABG pO2 205.0 H 69.3 L 70.1 L ABG PO2/FiO2 Ratio 0 0 0 ABG HCO3 25.9 26.7 H 27.0 H ABG O2 Saturation > 100.0 94.7 94.9 ABG Base Excess -0.8 0.5 1.1 A-a O2 Gradient 57.3 H 20.0 H 29.8 H O2 Delivery Device Vent Vent Vent FiO2 100.0 40.0 50.0 Tidal Volume 0.40 0.40 0.40 PEEP 6.0 6.0 8.0 Microbiology 12/20/23 11:00 Gram Stain - Final Sputum - Endotracheal Tube Aspirate Cardiac Studies: Echocardiogram 12/14/23 Cardiac Event Monitor 01/22/21
[2023-12-20 06:53] LABS: Blood Urea Nitrogen 104 mg/dL (8-23)
[2023-12-20] MEDS: ceFAZolin 1,000 mg SDV 1000 MG IRRIGATION (08:04)
[2023-12-20] MEDS: heparin, porcine 1,000 unit/mL INJ 10 mL 10000 UNIT INTRACATH ×2 (08:10→15:17)
[2023-12-20 08:16] LABS: Hepatitis B Core AB, Total Non-Reactive (Nonreactive); Hepatitis B Surface AB 5.5 (11.5-1000); Hepatitis B Surface Antigen Non-Reactive (Nonreactive)
[2023-12-20] MEDS: lidocaine 2% INJ 20 mL INJECTION (08:20)
--- NOTE | 2023-12-20 08:40 | P.OP_ITS ---
Operative Report Date of procedure: December 20, 2023 Pre-op diagnosis: Acute on chronic renal failure Post-op diagnosis: same Procedure done: Right IJ tunneled dual-lumen dialysis catheter placement Pathology: none sent Surgeon: Michael Berrios MD Anesthesia: General Estimated blood loss (mL): 20 Complications: None: Post procedure checks x-ray pending Condition: stable Disposition: ICU Brief History: Ms. Novak is a short statured, obese, diabetic female with acute on chronic renal failure which has progressed despite maximal medical management. Nephrology feels the patient would benefit from acute short-term hemodialysis. I was requested to place a tunneled dialysis catheter. Rationale and details of the procedure as well as risks were carefully and frankly discussed with Ms. Novak as well as later with her daughter, Marylu, by phone. All questions were answered. Appropriate consent was obtained by phone as her daughter has power of mergers and acquisitions attorney and was appropriately witnessed by nursing staff. Procedure: The entire chest was sterilely prepped and draped. Appropriate timeout was performed and confirmed by all operative team members present. With Ms. Novak in Trendelenburg position, and utilizing a modified Seldinger technique, the right internal jugular vein was engaged under handheld ultrasound guidance with a needle and easily aspirated of blood. Guidewire was placed and advanced without difficulty. The patient was returned to the supine position. The fluoroscopy was then used to confirm appropriate placement of the guidewire. Next, the dialysis catheter was measured to the appropriate length. A small incision was made laterally and inferiorly to the exit point of the guidewire. The dialysis catheter was then tunneled from this point medially to the point of exit of the guidewire on the chest wall after the tunnel had been infiltrated with 1% lidocaine. Velcro cuff was placed in this tunnel. Next, utilizing a series of dilators over the guidewire, under fluoroscopic guidance, the subcutaneous tract was dilated. Next, a dilator and tear-away sheath was placed over the guidewire and advanced under fluoroscopic guidance. Dilator and guidewire were removed. The dual-lumen dialysis catheter was then placed in the tear-away sheath as the tear-away sheath was removed. The entire system was interrogated with fluoroscopy to confirm appropriate position. Next, each lumen of the catheter was aspirated of air and blood and flushed with heparin solution. Due to early resistance, the catheter was withdrawn approximately 3 cm to releasel kinking at the base of the neck with no resistance further encountered during aspiration or injection into either port. securing caps and clamps were applied. The superior wound was closed with 4-0 Monocryll suture in a subcuticular fashion. The dialysis catheter was secured to the skin with 2-0 silk suture At the level of Velcro cuff . A sterile dressing was applied. There were equal breath sounds bilaterally at the completion of the procedure. Post procedure chest x-ray will be obtained in recovery. I did marriage and family counselor with her daughter Marylu by phone at the completion of the procedure.
--- NOTE | 2023-12-20 08:40 | XRR_ITS ---
PROCEDURE INFORMATION: Exam: XR Chest Exam date and time: 12/20/2023 9:37 AM Age: 68 years old Clinical indication: Device placement; Other: Dialysis catheter placement; Prior surgery; Surgery date: Post-operative (0-2 days) TECHNIQUE: Imaging protocol: Radiologic exam of the chest. Views: 1 view. COMPARISON: CR (CHEST, ) 12/17/2023 12:57 PM FINDINGS: Tubes, catheters and devices: The endotracheal tube terminates 5 cm above the stephani. Multi lumen catheter enters from the right and terminates near the atrial caval junction. Lungs: Increasing vascular engorgement with interstitial and alveolar edema, congestive heart failure versus fluid overload. Pleural spaces: Small left pleural effusion. Heart/Mediastinum: Unremarkable. No cardiomegaly. Bones/joints: Unremarkable. XR/XR chest 1V portable [id number] IMPRESSION: CHF versus fluid overload.
[2023-12-20] MEDS: propofol 1,000 MG/100 ML INJ 4.95 MG IV (08:57)
--- NOTE | 2023-12-20 09:15 | ANE.PACU2 ---
Inpatient post-anesthesia follow up: Airway intact: Yes Vital signs: Temperature 98.1 F Pulse Rate 80 Respiratory Rate 18 Blood Pressure 143/67 Pulse Oximetry 96 Oxygen Delivery Me thod Mechanical Ventila tion Oxygen Flow Rate 2 Fraction of Inspir ed Oxygen 50 Hydration adequate: Yes Nausea and vomiting: No Pain level: 1 Mental status: Baseline
--- NOTE | 2023-12-20 10:10 | XRR_ITS ---
PROCEDURE INFORMATION: Exam: XR Chest Exam date and time: 12/20/2023 10:19 AM Age: 68 years old Clinical indication: Device placement; Ett placement (vent status); Additional info: Et tube adjustment TECHNIQUE: Imaging protocol: Radiologic exam of the chest. Views: 1 view. COMPARISON: CR XR chest 1V portable [id number] 12/20/2023 9:37 AM FINDINGS: Tubes, catheters and devices: The patient is intubated. The endotracheal tube tip is seen approximately 5.3 cm above the stephani. There is a right subclavian approach central venous catheter projecting to the SVC/right atrial junction. Lungs: Bilateral pulmonary infiltrates are without significant change. There is a left pleural effusion without significant change. Pleural spaces: There is no pneumothorax. Heart/Mediastinum: The heart size is not well assessed. Bones/joints: Unremarkable. XR/XR chest 1V portable [id number] IMPRESSION: Bilateral pulmonary infiltrates and left pleural effusion without significant change.
[2023-12-20 11:00] LABS: Glucose Point of Care 96 mg/dL (70-110)
[2023-12-20 11:06] LABS: ABG PCO2 53.1 mmHg (35-45); Arterial Blood Gas Hematocrit 26.4 % (37-47); Base Excess ABG -0.8 mmol/L (-2.0-2.0); Blood Gas Allen Test Pos; Blood Gas Operator Identificat GD; Blood Gas Sample Site Radial, right; Blood Gas Sample Type Arterial; Carboxyhemoglobin 1.5 %THgb (0.4-20.1); HCO3 ABG 25.9 mmol/L (22-26); HGB O2 Sat 98.4 % (95-100); Ionized Calcium Level - ABG 1.3 mmol/L (1.1-1.4); Methemoglobin 0.6 % (0.4-1.5); Oxygen Saturation ABG > 100.0; Potassium Level - ABG 3.7 mmol/L (3.5-5.0); Total Hemoglobin 8.6 g/dL (12-16)
[2023-12-20 11:07] LABS: Alveolar-Arterial Oxygen Gradi 57.3 mmHg (5-10); Oxygen Device VENT; PO2 FiO2 Ratio Arterial Blood 0
[2023-12-20] MEDS: fentaNYL 1,000 MCG/100 ML BAG 2.5 MCG IV (11:16)
--- NOTE | 2023-12-20 12:19 | XRR_ITS ---
PROCEDURE INFORMATION: Exam: XR Chest Exam date and time: 12/20/2023 12:38 PM Age: 68 years old Clinical indication: Device placement; Ng tube; Additional info: Ng tube insertion and et tube adjustment TECHNIQUE: Imaging protocol: Radiologic exam of the chest. Views: 1 view. COMPARISON: CR XR chest 1V portable [id number] 12/20/2023 10:19 AM FINDINGS: Tubes, catheters and devices: The ET tube terminates 5 cm above the stephani. The NG tube terminates in the stomach, tip not included on the study. Multi lumen catheter unchanged. Lungs: Extensive bilateral pulmonary infiltrates are stable. Pleural spaces: Unremarkable. No pleural effusion. No pneumothorax. Heart/Mediastinum: Unremarkable. No cardiomegaly. Bones/joints: Unremarkable. XR/XR chest 1V portable [id number] IMPRESSION: No significant change except for insertion of an NG tube.
[2023-12-20] MEDS: heparin, porcine 1,000 unit/mL INJ 10 mL 1000 UNIT IV (13:25)
[2023-12-20] MEDS: nystatin powder 30 gm Btl 1 APPLIC TOPICAL ×2 (13:39→17:43)
[2023-12-20 13:43] LABS: Glucose Point of Care 106 mg/dL (70-110)
[2023-12-20] MEDS: propofol 1,000 MG/100 ML INJ 24.75 MG IV (13:46)
--- NOTE | 2023-12-20 13:59 | PC.NURSE ---
Received patient from OR staff at 0847. Patient is intubated, nurse started propofol upon arrival to ICU, was being sedated with versed in the OR. BP: 128/65, HR 61, SPO2: 99%, Temp: 97.4. Catheter insertion site is unremarkable, dressing clean and intact. Breath sounds equal on both sides. Skin tear observed to the right cheek. Unable to assess backside at this time, ET tube is secured with tape, waiting on securement device/tube tamer to secure the airway before significant reposition.
[2023-12-20 16:28] LABS: ABG PCO2 50.5 mmHg (35-45); ABG PH Result 7.33 (7.35-7.45); Arterial Blood Gas Hematocrit 26.9 % (37-47); Base Excess ABG 0.5 mmol/L (-2.0-2.0); Blood Gas Allen Test Pos; Blood Gas Operator Identificat GD; Blood Gas Sample Site Radial, right; Blood Gas Sample Type Arterial; Carboxyhemoglobin 1.7 %THgb (0.4-20.1); HCO3 ABG 26.7 mmol/L (22-26); HGB O2 Sat 92.4 % (95-100); Ionized Calcium Level - ABG 1.2 mmol/L (1.1-1.4); Methemoglobin 0.7 % (0.4-1.5); Oxygen Device VENT; Oxygen Saturation ABG 94.7; PO2 ABG 69.3 mmHg (80.0-100.0); PO2 FiO2 Ratio Arterial Blood 0; Potassium Level - ABG 3.2 mmol/L (3.5-5.0); Total Hemoglobin 8.8 g/dL (12-16)
[2023-12-20] MEDS: propofol 1,000 MG/100 ML INJ 29.7 MG IV ×3 (16:54→23:45)
--- NOTE | 2023-12-20 17:06 | PC.HD ---
New right IJ tunnelled cath worked very well and patient tolerated treatment well
--- NOTE | 2023-12-20 17:47 | P.PN_ITS ---
Subjective 2 Subjective: Patient is currently on BiPAP. Vitals/I&O/Wt Last Vital Signs Temp 97.2 F L 12/20/23 17:02 Pulse 76 12/20/23 17:02 Resp 18 12/20/23 17:20 BP 141/52 12/20/23 17:02 Pulse Ox 97 12/20/23 17:20 O2 Del Method Mechanical Ventilation 12/20/23 13:32 O2 Flow Rate 2 12/19/23 14:00 FiO2 50 12/20/23 17:20 12/20/23 12/20/23 12/20/23 06:59 14:59 22:59 Intake Total 0 / 410 82.913 / 82.913 577.55 / 660.463 Output Total 75 / 425 100 / 100 3010 / 3110 Balance -75 / -15 -17.087 / -17.087 -2432.45 / -2449.537 Weight last 48 hrs Weight 360 lb 7.292 oz Weight 363 lb 12.8 oz Weight 375 lb Weight 375 lb Physical Exam 2 Narrative: GENERAL: Patient is confused NECK: No jugular vein distension. [] HEENT: No cyanosis. No icterus. No pallor. [] HEART: Regular S1 and S2. No murmur, rub or gallop. [] LUNGS: Diminished air entry CENTRAL NERVOUS SYSTEM: Grossly nonfocal. [] EXTREMITIES: Lower extremities with 1+ edema bilaterally Urinary Catheter Management: Latex Free: Cath Placed During This Visit: yes Reason for Continuing Indwelling Catheter: Accurate Measurement of Urinary Output in Critically Ill Patients Urinary Catheter Date of Insertion: 12/12/23 Urinary Catheter Time of Insertion: 15:39 Data 12/21/23 04:27 12/21/23 04:27 Micro: Microbiology 12/20/23 11:00 Gram Stain - Final Sputum - Endotracheal Tube Aspirate A&P Assessment and plan (1) Acute on chronic diastolic (congestive) heart failure: (2) Generalized edema: (3) Acute kidney injury superimposed on chronic kidney disease: (4) Chronic obstructive pulmonary disease, unspecified: Qualifiers: COPD type: unspecified COPD Qualified Code(s): J44.9 - Chronic obstructive pulmonary disease, unspecified (5) Type 2 diabetes mellitus with diabetic chronic kidney disease: Qualifiers: Diabetes mellitus manager terminal insulin use: with halfway use Chronic kidney disease stage: stage 4 (severe) Qualified Code(s): E11.22 - Type 2 diabetes mellitus with diabetic chronic kidney disease; N18.4 - Chronic kidney disease, stage 4 (severe); Z79.4 - intermodal customer service (current) use of insulin (6) Benign hypertension: (7) Anemia: Qualifiers: Anemia type: iron deficiency Iron deficiency anemia type: inadequate dietary iron intake Qualified Code(s): D50.8 - Other iron deficiency anemias Plan With diuresis renal function worsening. Plan for dialysis. Close I&O's. Low-sodium diet Thank you for involving us with care of this patient. We will continue to follow. Please call with questions. Attestations 2 Medical Necessity Statement*: Care expected to cross 2 midnights. Coding Level of Care Code Acute Code for g Fwd Diagnoses Acute on chronic diastolic (congestive) heart failure I50.33 Generalized edema R60.1 Acute kidney injury superimposed on chronic kidney disease N17.9; N18.9 Chronic obstructive pulmonary disease, unspecified COPD type J44.9 COPD type: unspecified COPD Type 2 diabetes mellitus with stage 4 chronic kidney disease, with long-term current use of insulin E11.22; N18.4; Z79.4 Diabetes mellitus manager terminal insulin use: with halfway use Chronic kidney disease stage: stage 4 (severe) Benign hypertension I10 Iron deficiency anemia secondary to inadequate dietary iron intake D50.8 Anemia type: iron deficiency Iron deficiency anemia type: inadequate dietary iron intake
[2023-12-20 18:13] LABS: Glucose Point of Care 114 mg/dL (70-110)
--- NOTE | 2023-12-20 19:00 | PC.NURSE ---
SHift SUmmary: Uneventful shift. Patient came back form Surgery for dialysis catheter placement. Recovery was uneventful. Remains intubated. Received dialysis today, 2500mL removed through dialysis, 200mL of urine output. Nurse did attempt sedation vacation today, but patient would get very agitated, biting ET tube and becoming tachypnic. Will attempt sedation vacation again tommorow.
[2023-12-20] MEDS: budesonide 0.5 mg/2 mL Neb INHALATION (20:12)
[2023-12-20] MEDS: hyDRALAzine 50 mg Tablet 100 MG PO (20:28)
[2023-12-20 20:32] LABS: Glucose Point of Care 130 mg/dL (70-110)
--- NOTE | 2023-12-20 20:55 | PM.PN ---
Subjective Subjective: Transferred to ICU for mechanical ventilatory support, to maintain ET tube for some time after dialysis catheter placement. Arrangements for dialysis today. Hypertensive earlier, subsequently appearing in pain. Continuous additional propofol, fentanyl added. Opens eyes to voice. Vitals/I&O/Wt Last Vital Signs Temp 98.6 F 12/20/23 20:00 Pulse 80 12/20/23 20:00 Resp 18 12/20/23 20:14 BP 153/60 12/20/23 20:00 Pulse Ox 96 12/20/23 20:14 O2 Del Method Mechanical Ventilation 12/20/23 20:00 O2 Flow Rate 2 12/19/23 14:00 FiO2 50 12/20/23 20:14 12/20/23 12/20/23 12/20/23 06:59 14:59 22:59 Intake Total 0 / 410 82.913 / 82.913 677.55 / 760.463 Output Total 75 / 425 100 / 100 3110 / 3210 Balance -75 / -15 -17.087 / -17.087 -2432.45 / -2449.537 Weight last 48 hrs Weight 163.5 kg Weight 165.017 kg Weight 170.097 kg Weight 170.097 kg Physical Exam Const: COMMON NORMALS: alert GENERAL APPEARANCE: cooperative and patient mechanically ventilated ORIENTATION/CONSCIOUSNESS: Yes awake HENMT: COMMON NORMALS: oropharynx normal Neck/C-Spine: COMMON NORMALS: no JVD Resp: COMMON NORMALS: normal respiratory effort and clear to auscultation bilaterally AUSCULTATION: clear to auscultation bilaterally Cardio: COMMON NORMALS: no JVD, regular rhythm, S1 normal heart sound present, S2 normal heart sound present and No murmurs present (Cardio) RHYTHM: regular rhythm HEART SOUNDS: S1 normal heart sound present and S2 normal heart sound present GI: COMMON NORMALS: Normal to inspection, nondistended, normoactive bowel sounds present, Soft to palpation and non-tender PALPATION: Yes Soft to palpation Extremity: COMMON NORMALS: no joint enlargement OTHER: Anasarca, both lower extremities and upper extremities. Right upper extremity worse swelling. Swelling/puffiness of both hands. Hands are warm, perfused. Neuro: COMMON NORMALS: moves all extremities SENSORIUM/ORIENTATION: Yes alert Urinary Catheter Management: Latex Free: Cath Placed During This Visit: yes Reason for Continuing Indwelling Catheter: Accurate Measurement of Urinary Output in Critically Ill Patients Urinary Catheter Date of Insertion: 12/12/23 Urinary Catheter Time of Insertion: 15:39 Data 12/20/23 06:04 12/20/23 06:04 Micro: Microbiology 12/20/23 11:00 Gram Stain - Final Sputum - Endotracheal Tube Aspirate A&P Assessment and plan (1) ROSEMARIE (acute kidney injury): Status post hemodialysis catheter placement. Started on dialysis today. Reviewed vitals, CBC, CMP. Reviewed nephrology note. Monitor urine output. Reassess chemistry, renal function. Discussed with case worker. (2) SOB (shortness of breath): Generally weak, anasarca, was moved to ICU after HD catheter placement. Underwent hemodialysis. Consideration initially for possible extubation. Discussed with RT. Continue mechanical ventilatory support for now. Requiring 50% FiO2, PEEP 8, noted some copious sputum. Extubation for now deferred this evening. Reassess in the morning. Continue pulmonary toilet. After extubation continue oxygen support, BiPAP support as needed and with sleep for LIZ Hemodialysis. Most likely a combination of obstructive sleep apnea, diastolic heart failure, COPD and anxiety. Keep oxygen supplementation over 88 to 90%. Nebulization treatment. (3) Acute exacerbation of congestive heart failure: HD catheter placed. Started on hemodialysis. Continue. CBC, CMP reviewed. Noted worsened renal function today. Reassess volume status. Echocardiogram showed ejection fraction within normal limits right ventricular dilation bilateral atrial enlarged tricuspid regurgitation no pericardial. Most likely diastolic heart failure. Patient takes Bumex 2 mg twice daily at home. Overall around 1200 cc negative since admission. With very poor response to aggressive diuresis with worsening of renal functions. Continue with fluid restriction up to 1500 cc. Strict input charting, daily weights. Juárez catheterization. Not sure about CHF being the only reason for patient's shortness of breath. Continue with Xanax 0.5 every 8 hourly as needed for anxiety. Cannot give morphine as patient has morphine allergy with itching. Though has been able to tolerate hydromorphone. Continue with home dose of duloxetine. Continue to optimize hypertension. Medications held till NG tube placed. Continues on amlodipine, hydralazine. Qualifiers: Heart failure type: unspecified Qualified Code(s): I50.9 - Heart failure, unspecified (4) LIZ (obstructive sleep apnea): BiPAP nightly and when resting. Patient is due for a sleep study as an outpatient. Patient will benefit with BiPAP as an outpatient on discharge also. (5) Chronic obstructive pulmonary disease, unspecified: Nebulization treatment as above. Qualifiers: COPD type: unspecified COPD Qualified Code(s): J44.9 - Chronic obstructive pulmonary disease, unspecified (6) Anemia: Reviewed hemoglobin and platelets. Appears to be stable so far. Hemoglobin improved following transfusion of 1 unit packed red blood cells on December 15 Anemia likely related to chronic kidney disease, autoimmune disease. Continue with Protonix twice daily. Continue with oral iron supplementation. 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 Possibly myopathy with statin, held atorvastatin for now. Check CK, reviewed, normal. Possibly some contribution of UTI, starting antibiotic as per discussion with her daughter. UTI: Complicated UTI with MDRO Klebsiella resistant to all antibiotics except ceramics and and imipenem. Discussed with her daughter. Discussed consideration of treatment, risks, benefits, risks and setting of marked renal failure. Will adjust dose with meropenem, monitor for risk of seizure. Decrease dose to 500 mg in 24 hours. Anasarca: Arrangements for renal replacement therapy as above. Were swelling of right upper extremity compared to left: Assess venous duplex for any DVT. Constipation is multifactorial. senna 2 tablets twice daily, monitor for bowel movement. Hypertension: amlodipine 10 mg daily, hydralazine 50 mg 3 times daily, Imdur. Full code Heparin for DVT prophylaxis Attestations Medical Necessity Statement*: Continue admission for assessment management of acute renal failure, anasarca, CHF exacerbation, complicated UTI, additional, comorbidities as above. Coding Level of Care Code Critical Care >/= 30 minutes Critical care time (in minutes): 35 The high probability of a clinically significant, sudden or life threatening deterioration, as referenced in this documentation, required my full and direct attention, intervention and personal management. The critical care time shown is in addition to time spent performing any reported separately billable procedures and includes the following: [x] Data and vital sign review and interpretation [x] Patient assessment, examination and intervention [x] Medication orders and management [x] Patient/Family updates as able [x] Care Coordination and Documentation. Diagnoses ROSEMARIE (acute kidney injury) N17.9 SOB (shortness of breath) R06.02 Acute exacerbation of congestive heart failure I50.9 Heart failure type: unspecified LIZ (obstructive sleep apnea) G47.33 Chronic obstructive pulmonary disease, unspecified COPD type J44.9 COPD type: unspecified COPD Iron deficiency anemia secondary to inadequate dietary iron intake D50.8 Anemia type: iron deficiency Iron deficiency anemia type: inadequate dietary iron intake Type 2 diabetes mellitus with stage 4 chronic kidney disease, with long-term current use of insulin E11.22; N18.4; Z79.4 Diabetes mellitus buttermaker helper insulin use: with buttermaker helper use Chronic kidney disease stage: stage 4 (severe)
[2023-12-20] MEDS: meropenem 500 MG in sodium chloride 0.9% (plus) 50 ML 100 MG IV (21:17)
[2023-12-20] MEDS: heparin 5,000 unit/mL INJ 1 mL 5000 UNIT SUBCUT (21:24)
[2023-12-21] VITALS (39 sets, daily range): BP systolic 122–151; BP diastolic 46–67; PULSE 73–90; RESP 16–22; TEMP 36.1–38.8; O2SAT 93–100
[2023-12-21] MEDS: fentaNYL 1,000 MCG/100 ML BAG 7.5 MCG IV ×2 (01:06→14:18)
[2023-12-21] MEDS: ipratropium-albuterol 3 mL Neb INHALATION ×4 (02:04→20:21)
[2023-12-21] MEDS: propofol 1,000 MG/100 ML INJ 29.7 MG IV ×4 (04:02→19:13)
[2023-12-21 04:39] LABS: Basophils % 0.5 %; Eosinophils # 0.2 10^3/uL (0.0-0.8); Eosinophils % 2.1 %; Hematocrit 24.3 % (36-47); Lymphocytes # 0.5 10^3/uL (0.8-4.8); Lymphocytes % 5.9 %; Mean Corpuscular HGB Conc 31.7 g/dL (30-55); Mean Corpuscular Hemoglobin 28.3 pg (27-33); Mean Corpuscular Volume 89.3 fl (85-98); Mean Platelet Volume 11.1 fL (7.4-10.4); Monocytes # 0.9 10^3/uL (0.2-0.9); Monocytes % 10.5 %; Neutrophils % 80.7 %; Nucleated Red Blood Cells % 0 %; Platelet Count 114 10^3/cmm (157-399); Red Blood Count 2.72 10^6/uL (3.85-5.65); Red Cell Distribution Width 15.5 % (12.1-15.1); White Blood Count 8.67 10^3/uL (3.29-11.43)
[2023-12-21 04:46] LABS: ABG PCO2 48.5 mmHg (35-45); ABG PH Result 7.36 (7.35-7.45); Alveolar-Arterial Oxygen Gradi 29.8 mmHg (5-10); Base Excess ABG 1.1 mmol/L (-2.0-2.0); Blood Gas Allen Test Pos; Blood Gas Operator Identificat JB; Blood Gas Sample Site Radial, right; Blood Gas Sample Type Arterial; Carboxyhemoglobin 1.3 %THgb (0.4-20.1); HGB O2 Sat 93.2 % (95-100); Ionized Calcium Level - ABG 1.2 mmol/L (1.1-1.4); Methemoglobin 0.6 % (0.4-1.5); Oxygen Device VENT; Oxygen Saturation ABG 94.9; PO2 ABG 70.1 mmHg (80.0-100.0); PO2 FiO2 Ratio Arterial Blood 0; Potassium Level - ABG 3.3 mmol/L (3.5-5.0); Total Hemoglobin 9.5 g/dL (12-16)
[2023-12-21 05:00] LABS: Alanine Aminotransferase 9 U/L (0-33); Albumin Level 3.9 g/dL (3.5-5.2); Alkaline Phosphatase 57 U/L (35-105); Anion Gap 19.4 (5-19); Aspartate Amino Transferase 14 U/L (0-32); Blood Urea Nitrogen 70 mg/dL (8-23); Calcium 9.3 mg/dL (8.5-10.5); Carbon Dioxide 25 mmol/L (22-29); Chloride 99 mmol/L (98-107); Globulin 2.1 g/dL (1.3-4.6); Glomerular Filtration Rate 12.7 mL/min (90-130); Glucose 131 mg/dL (65-115); Osmolality Calculated 312 mOsm/kg (285-295); Potassium 3.4 mmol/L (3.5-5.1); Sodium 140 mmol/L (136-145); Total Bilirubin 0.3 mg/dL (0.15-1.2)
[2023-12-21] MEDS: budesonide 0.5 mg/2 mL Neb INHALATION (08:18)
[2023-12-21] MEDS: heparin 5,000 unit/mL INJ 1 mL 5000 UNIT SUBCUT ×2 (08:44→21:15)
[2023-12-21] MEDS: nystatin powder 30 gm Btl 1 APPLIC TOPICAL ×2 (08:47→20:14)
[2023-12-21] MEDS: propofol 1,000 MG/100 ML INJ 24.75 MG IV (09:00)
[2023-12-21 09:27] LABS: Glucose Point of Care 120 mg/dL (70-110)
--- NOTE | 2023-12-21 09:57 | P.PN_ITS ---
Subjective 2 Subjective: remains on vent Medications: Reviewed: Yes Vitals/I&O/Wt Last Vital Signs Temp 98.3 F 12/21/23 09:00 Pulse 87 12/21/23 09:00 Resp 19 H 12/21/23 09:53 BP 134/53 12/21/23 09:00 Pulse Ox 94 12/21/23 09:53 O2 Del Method Mechanical Ventilation 12/21/23 09:00 O2 Flow Rate 2 12/19/23 14:00 FiO2 40 12/21/23 09:53 12/20/23 12/21/23 12/21/23 22:59 06:59 14:59 Intake Total 860.633 / 943.546 225.125 / 1168.671 100 / 100 Output Total 3110 / 3210 125 / 3335 50 / 50 Balance -2249.367 / -2266.454 100.125 / -2166.329 50 / 50 Weight last 48 hrs Weight 169.644 kg Weight 163.5 kg Weight 165.017 kg Weight 170.097 kg Physical Exam 2 Narrative: on vent Urinary Catheter Management: Latex Free: Cath Placed During This Visit: yes Reason for Continuing Indwelling Catheter: Accurate Measurement of Urinary Output in Critically Ill Patients Urinary Catheter Date of Insertion: 12/12/23 Urinary Catheter Time of Insertion: 15:39 Data 12/21/23 04:27 12/21/23 04:27 Micro: Microbiology 12/20/23 11:00 Gram Stain - Final Sputum - Endotracheal Tube Aspirate A&P Assessment and plan (1) Acute kidney injury superimposed on chronic kidney disease: Plan 1. Acute on chronic kidney disease stage III: Patient's baseline creatinine of 1.5-1.9, has multiple ROSEMARIE's in the past. -was on Lasix drip with IV albumin every 8 hours, + metolazone 2.5 mg bid daily-->switched to bumex , with no inadequate diuresis so far , - renal fxn worse , - S/P tunnelled catheter placement and HD done yesterday , plan for HD again today -2 g sodium restriction and 1500 mL fluid restriction 2. Anemia: s/p transfusion ,will add BOUCHRA 3. Diastolic CHF, diuresis as above, echo 4. Acute on chronic respiratory failure, multifactorial, patient has history of COPD, LIZ and CHF 5. History of diabetes Patient evaluated using audiovisual cart. Time spent 20 minutes. Attestations 2 Medical Necessity Statement*: per mediicne Coding Level of Care Code Acute Code for Chg Fwd Diagnoses Acute kidney injury superimposed on chronic kidney disease N17.9; N18.9
[2023-12-21] MEDS: heparin, porcine 1,000 unit/mL INJ 10 mL 1000 UNIT IV (11:00)
[2023-12-21] MEDS: epoetin alfa 1000 Unit/0.05 mL (ESRD) 20000 UNIT IVP (12:32)
[2023-12-21] MEDS: heparin, porcine 1,000 unit/mL INJ 10 mL 10000 UNIT INTRACATH (12:36)
[2023-12-21 12:48] LABS: Glucose Point of Care 126 mg/dL (70-110)
--- NOTE | 2023-12-21 14:19 | PC.SOCIAL ---
IMM Update pg 2 of IMM not updated w/ patient as she is currently intubated. Copy left @ bedside and copy in chart dated, and initialed.
[2023-12-21] MEDS: hyDRALAzine 50 mg Tablet 100 MG PO ×2 (15:54→21:15)
--- NOTE | 2023-12-21 18:10 | P.PN_ITS ---
Subjective 2 Subjective: Patient is intubated. Vitals/I&O/Wt Last Vital Signs Temp 101.8 F H 12/21/23 14:28 Pulse 80 12/21/23 14:28 Resp 22 H 12/21/23 14:28 BP 148/56 12/21/23 14:28 Pulse Ox 95 12/21/23 13:59 O2 Del Method Mechanical Ventilation 12/21/23 13:57 O2 Flow Rate 2 12/19/23 14:00 FiO2 40 12/21/23 13:59 12/21/23 12/21/23 12/21/23 06:59 14:59 22:59 Intake Total 225.125 / 1168.671 860.225 / 860.225 Output Total 125 / 3335 3550 / 3550 Balance 100.125 / -2166.329 -2689.775 / -2689.775 Weight last 48 hrs Weight 364 lb 13.84 oz Weight 374 lb Weight 360 lb 7.292 oz Weight 363 lb 12.8 oz Weight 375 lb Physical Exam 2 Narrative: GENERAL: Patient is intubated NECK: No jugular vein distension. [] HEENT: No cyanosis. No icterus. No pallor. [] HEART: Regular S1 and S2. No murmur, rub or gallop. [] LUNGS: Diminished air entry CENTRAL NERVOUS SYSTEM: Grossly nonfocal. [] EXTREMITIES: Lower extremities with 1+ edema bilaterally Urinary Catheter Management: Latex Free: Cath Placed During This Visit: yes Reason for Continuing Indwelling Catheter: Accurate Measurement of Urinary Output in Critically Ill Patients Urinary Catheter Date of Insertion: 12/12/23 Urinary Catheter Time of Insertion: 15:39 Data 12/25/23 04:34 12/25/23 04:34 Micro: Microbiology 12/20/23 11:00 Gram Stain - Final Sputum - Endotracheal Tube Aspirate Sputum Culture - Preliminary A&P Assessment and plan (1) Acute on chronic diastolic (congestive) heart failure: (2) Generalized edema: (3) Acute kidney injury superimposed on chronic kidney disease: (4) Chronic obstructive pulmonary disease, unspecified: Qualifiers: COPD type: unspecified COPD Qualified Code(s): J44.9 - Chronic obstructive pulmonary disease, unspecified (5) Type 2 diabetes mellitus with diabetic chronic kidney disease: Qualifiers: Diabetes mellitus [facility] insulin use: with [facility] use Chronic kidney disease stage: stage 4 (severe) Qualified Code(s): E11.22 - Type 2 diabetes mellitus with diabetic chronic kidney disease; N18.4 - Chronic kidney disease, stage 4 (severe); Z79.4 - supervisor intermediates (current) use of insulin (6) Benign hypertension: (7) Anemia: Qualifiers: Anemia type: iron deficiency Iron deficiency anemia type: inadequate dietary iron intake Qualified Code(s): D50.8 - Other iron deficiency anemias Plan Dialysis per nephrology. Patient is intubated. Thank you for involving us with care of this patient. We will continue to follow. Please call with questions. Attestations 2 Medical Necessity Statement*: Care expected to cross 2 midnights. Coding Level of Care Code Acute Code for [facility] Fwd Diagnoses Acute on chronic diastolic (congestive) heart failure I50.33 Generalized edema R60.1 Acute kidney injury superimposed on chronic kidney disease N17.9; N18.9 Chronic obstructive pulmonary disease, unspecified COPD type J44.9 COPD type: unspecified COPD Type 2 diabetes mellitus with stage 4 chronic kidney disease, with long-term current use of insulin E11.22; N18.4; Z79.4 Diabetes mellitus terminal make up operator insulin use: with terminal make up operator use Chronic kidney disease stage: stage 4 (severe) Benign hypertension I10 Iron deficiency anemia secondary to inadequate dietary iron intake D50.8 Anemia type: iron deficiency Iron deficiency anemia type: inadequate dietary iron intake
--- NOTE | 2023-12-21 19:41 | PM.PN ---
Subjective Subjective: Intubated, mechanically ventilated. Opens eyes, nods briefly answers to questions. Not in pain. Vitals/I&O/Wt Last Vital Signs Temp 101.8 F H 12/21/23 14:28 Pulse 80 12/21/23 14:28 Resp 18 12/21/23 18:13 BP 148/56 12/21/23 14:28 Pulse Ox 96 12/21/23 18:13 O2 Del Method Mechanical Ventilation 12/21/23 13:57 O2 Flow Rate 2 12/19/23 14:00 FiO2 40 12/21/23 18:13 12/21/23 12/21/23 12/21/23 06:59 14:59 22:59 Intake Total 225.125 / 1168.671 860.225 / 860.225 100 / 960.225 Output Total 125 / 3335 3550 / 3550 Balance 100.125 / -2166.329 -2689.775 / -2689.775 100 / -2589.775 Weight last 48 hrs Weight 165.5 kg Weight 169.644 kg Weight 163.5 kg Weight 165.017 kg Weight 170.097 kg Physical Exam Const: GENERAL APPEARANCE: patient mechanically ventilated HENMT: COMMON NORMALS: oropharynx normal Neck/C-Spine: COMMON NORMALS: no JVD Resp: COMMON NORMALS: normal respiratory effort and clear to auscultation bilaterally AUSCULTATION: clear to auscultation bilaterally Cardio: COMMON NORMALS: no JVD, regular rhythm, S1 normal heart sound present, S2 normal heart sound present and No murmurs present (Cardio) RHYTHM: regular rhythm HEART SOUNDS: S1 normal heart sound present and S2 normal heart sound present GI: COMMON NORMALS: Normal to inspection, nondistended, normoactive bowel sounds present, Soft to palpation and non-tender PALPATION: Yes Soft to palpation Extremity: COMMON NORMALS: no joint enlargement OTHER: Improving anasarca, both lower extremities and upper extremities. Right upper extremity worse swelling. Swelling/puffiness of both hands. Hands are warm, perfused. Neuro: COMMON NORMALS: moves all extremities Urinary Catheter Management: Latex Free: Cath Placed During This Visit: yes Reason for Continuing Indwelling Catheter: Accurate Measurement of Urinary Output in Critically Ill Patients Urinary Catheter Date of Insertion: 12/12/23 Urinary Catheter Time of Insertion: 15:39 Data 12/21/23 04:27 12/21/23 04:27 Micro: Microbiology 12/20/23 11:00 Gram Stain - Final Sputum - Endotracheal Tube Aspirate Sputum Culture - Preliminary A&P Assessment and plan (1) ROSEMARIE (acute kidney injury): Status post hemodialysis catheter placement. Started on dialysis today. Reviewed vitals, CBC, CMP. Reviewed nephrology note. Monitor urine output. Reassess chemistry, renal function. Discussed with family independence case manager. (2) SOB (shortness of breath): This morning discussed with respiratory therapy, reassess for possibility of extubation. Oxygenation slightly better, some improvement in anasarca, additional hemodialysis scheduled for today, however, also producing thick sputum, additionally during intubation airway noted very narrow. At risk for failure of extubation, difficult intubation, for now continue mechanical ventilation. Continue breathing treatments. Noted fever this evening, 101.8. Will check chest x-ray. Continue meropenem. Will add vancomycin. Sputum cultures collected, reviewed. Follow-up. Obtain MRSA PCR. Cont inhaled budesonide. After extubation continue oxygen support, BiPAP support as needed and with sleep for LIZ Hemodialysis. Most likely a combination of obstructive sleep apnea, diastolic heart failure, COPD and anxiety. Keep oxygen supplementation over 88 to 90%. Nebulization treatment. (3) Acute exacerbation of congestive heart failure: Reviewed vitals, intake and output, noted -2225 mL. Additional dialysis today. Hydralazine held in anticipation of hemodialysis. HD catheter placed. Started on hemodialysis. Continue. CBC, CMP reviewed. Noted worsened renal function today. Reassess volume status. Echocardiogram showed ejection fraction within normal limits right ventricular dilation bilateral atrial enlarged tricuspid regurgitation no pericardial. Most likely diastolic heart failure. Patient takes Bumex 2 mg twice daily at home. Overall around 1200 cc negative since admission. With very poor response to aggressive diuresis with worsening of renal functions. Continue with fluid restriction up to 1500 cc. Strict input charting, daily weights. Juárez catheterization. Not sure about CHF being the only reason for patient's shortness of breath. Continue with Xanax 0.5 every 8 hourly as needed for anxiety. Cannot give morphine as patient has morphine allergy with itching. Though has been able to tolerate hydromorphone. Continue with home dose of duloxetine. Continue to optimize hypertension. Medications held till NG tube placed. Continues on amlodipine, hydralazine. Qualifiers: Heart failure type: unspecified Qualified Code(s): I50.9 - Heart failure, unspecified (4) LIZ (obstructive sleep apnea): BiPAP nightly and when resting. Patient is due for a sleep study as an outpatient. Patient will benefit with BiPAP as an outpatient on discharge also. (5) Chronic obstructive pulmonary disease, unspecified: Nebulization treatment as above. Qualifiers: COPD type: unspecified COPD Qualified Code(s): J44.9 - Chronic obstructive pulmonary disease, unspecified (6) Anemia: Reviewed hemoglobin and platelets. Appears to be stable so far. Hemoglobin improved following transfusion of 1 unit packed red blood cells on December 15 Anemia likely related to chronic kidney disease, autoimmune disease. Continue with Protonix twice daily. Continue with oral iron supplementation. Qualifiers: Anemia type: iron deficiency Iron deficiency anemia type: inadequate dietary iron intake Qualified Code(s): D50.8 - Other iron deficiency anemias (7) Type 2 diabetes mellitus with diabetic chronic kidney disease: Sliding scale insulin Continue long-acting insulin Consistent carb diet Qualifiers: Diabetes mellitus terminal press operator insulin use: with terminal press operator use Chronic kidney disease stage: stage 4 (severe) Qualified Code(s): E11.22 - Type 2 diabetes mellitus with diabetic chronic kidney disease; N18.4 - Chronic kidney disease, stage 4 (severe); Z79.4 - MCFP (current) use of insulin Plan Generalized weakness: Possibly uremic symptoms, arrangements for renal replacement therapy as above. Possibly myopathy with statin, held atorvastatin for now. Check CK, reviewed, normal. Possibly some contribution of UTI, starting antibiotic as per discussion with her daughter. UTI: Complicated UTI with MDRO Klebsiella resistant to all antibiotics except ceramics and and imipenem. Discussed with her daughter. Discussed consideration of treatment, risks, benefits, risks and setting of marked renal failure. Will adjust dose with meropenem, monitor for risk of seizure. Decrease dose to 500 mg in 24 hours. Anasarca: Arrangements for renal replacement therapy as above. Were swelling of right upper extremity compared to left: Assess venous duplex for any DVT. Constipation is multifactorial. senna 2 tablets twice daily, monitor for bowel movement. Hypertension: amlodipine 10 mg daily, hydralazine 50 mg 3 times daily, Imdur. Full code Heparin for DVT prophylaxis Attestations Medical Necessity Statement*: Continue admission for assessment management of acute renal failure, anasarca, CHF exacerbation, weaning of ventilatory support, complicated UTI, additional, comorbidities as above. Coding Level of Care Code Critical Care >/= 30 minutes Critical care time (in minutes): 35 The high probability of a clinically significant, sudden or life threatening deterioration, as referenced in this documentation, required my full and direct attention, intervention and personal management. The critical care time shown is in addition to time spent performing any reported separately billable procedures and includes the following: [x] Data and vital sign review and interpretation [x] Patient assessment, examination and intervention [x] Medication orders and management [x] Patient/Family updates as able [x] Care Coordination and Documentation. Diagnoses ROSEMARIE (acute kidney injury) N17.9 SOB (shortness of breath) R06.02 Acute exacerbation of congestive heart failure I50.9 Heart failure type: unspecified LIZ (obstructive sleep apnea) G47.33 Chronic obstructive pulmonary disease, unspecified COPD type J44.9 COPD type: unspecified COPD Iron deficiency anemia secondary to inadequate dietary iron intake D50.8 Anemia type: iron deficiency Iron deficiency anemia type: inadequate dietary iron intake Type 2 diabetes mellitus with stage 4 chronic kidney disease, with long-term current use of insulin E11.22; N18.4; Z79.4 Diabetes mellitus terminal press operator insulin use: with terminal press operator use Chronic kidney disease stage: stage 4 (severe)
--- NOTE | 2023-12-21 20:05 | PC.NURSE ---
SHift Summary: uneventful shift. patient recieved dialysis as ordered. 3 liters of fluid removed. 150mL of urine output. Edema is still significant, but noticeably decreased. thick secretions from inline suction are starting to decrease in thickness and volume.
[2023-12-21 20:50] LABS: Glucose Point of Care 121 mg/dL (70-110)
[2023-12-21 21:04] LABS: Glucose Point of Care 122 mg/dL (70-110)
[2023-12-21] MEDS: propofol 1,000 MG/100 ML INJ 34.65 MG IV (21:14)
[2023-12-21] MEDS: meropenem 500 MG in sodium chloride 0.9% (plus) 50 ML 100 MG IV (21:56)
[2023-12-22] VITALS (34 sets, daily range): BP systolic 120–177; BP diastolic 46–114; PULSE 78–97; RESP 18–28; TEMP 36.1–37.3; O2SAT 92–98
[2023-12-22] MEDS: propofol 1,000 MG/100 ML INJ 29.7 MG IV (00:22)
[2023-12-22] MEDS: ipratropium-albuterol 3 mL Neb INHALATION ×4 (03:16→20:25)
[2023-12-22] MEDS: fentaNYL 1,000 MCG/100 ML BAG 5 MCG IV (04:02)
[2023-12-22] MEDS: propofol 1,000 MG/100 ML INJ 24.75 MG IV ×4 (04:32→20:20)
[2023-12-22 05:01] LABS: Basophils # 0.1 10^3/uL (0.0-0.1); Basophils % 0.6 %; Eosinophils # 0.4 10^3/uL (0.0-0.8); Hematocrit 25.6 % (36-47); Lymphocytes # 0.6 10^3/uL (0.8-4.8); Lymphocytes % 6.8 %; Mean Corpuscular HGB Conc 31.6 g/dL (30-55); Mean Corpuscular Hemoglobin 28.3 pg (27-33); Mean Corpuscular Volume 89.5 fl (85-98); Mean Platelet Volume 11.4 fL (7.4-10.4); Monocytes % 11.3 %; Neutrophils # 6.59 10^3/uL (1.8-7.7); Neutrophils % 75.5 %; Nucleated Red Blood Cells % 0 %; Platelet Count 125 10^3/cmm (157-399); Red Blood Count 2.86 10^6/uL (3.85-5.65); Red Cell Distribution Width 15.8 % (12.1-15.1); White Blood Count 8.73 10^3/uL (3.29-11.43)
[2023-12-22 05:30] LABS: Alanine Aminotransferase 8 U/L (0-33); Albumin Level 3.9 g/dL (3.5-5.2); Alkaline Phosphatase 65 U/L (35-105); Anion Gap 21.3 (5-19); Aspartate Amino Transferase 17 U/L (0-32); Blood Urea Nitrogen 72 mg/dL (8-23); Calcium 9.4 mg/dL (8.5-10.5); Carbon Dioxide 24 mmol/L (22-29); Chloride 97 mmol/L (98-107); Creatinine Clr Calc Pharmacy 21.8716; Globulin 2.4 g/dL (1.3-4.6); Glomerular Filtration Rate 11.5 mL/min (90-130); Glucose 112 mg/dL (65-115); Osmolality Calculated 310 mOsm/kg (285-295); Potassium 3.3 mmol/L (3.5-5.1); Sodium 139 mmol/L (136-145); Total Bilirubin 0.3 mg/dL (0.15-1.2); Total Protein 6.3 g/dL (6.6-8.7)
[2023-12-22 05:44] LABS: ABG PCO2 43.5 mmHg (35-45); ABG PH Result 7.37 (7.35-7.45); Arterial Blood Gas Hematocrit 31.6 % (37-47); Base Excess ABG -0.3 mmol/L (-2.0-2.0); Blood Gas Allen Test Pos; Blood Gas Operator Identificat JB; Blood Gas Sample Site Radial, right; Blood Gas Sample Type Arterial; Carboxyhemoglobin 1.5 %THgb (0.4-20.1); HCO3 ABG 25.1 mmol/L (22-26); HGB O2 Sat 93.8 % (95-100); Ionized Calcium Level - ABG 1.2 mmol/L (1.1-1.4); Methemoglobin 0.5 % (0.4-1.5); Oxygen Device VENT; Oxygen Saturation ABG 95.7; PO2 ABG 70.7 mmHg (80.0-100.0); PO2 FiO2 Ratio Arterial Blood 0; Potassium Level - ABG 3.2 mmol/L (3.5-5.0); Total Hemoglobin 10.3 g/dL (12-16)
--- NOTE | 2023-12-22 06:00 | XR_ITS ---
WS: [id number] Portable AP supine chest, 12/22/2023 Clinical Data: Hypoxia Comparison: Portable chest, 12/20/2023 Findings: The extensive pulmonary opacities remain the same. The heart is enlarged. The endotracheal tube, nasogastric tube, right dialysis catheter and monitor leads remain in the same position. No nod ules, masses or effusions are seen. Impression: No change from previous chest x-ray.
[2023-12-22 07:19] LABS: Glucose Point of Care 126 mg/dL (70-110)
[2023-12-22] MEDS: budesonide 0.5 mg/2 mL Neb INHALATION ×2 (08:06→20:25)
[2023-12-22] MEDS: heparin, porcine 1,000 unit/mL INJ 10 mL 1000 UNIT IV (08:41)
--- NOTE | 2023-12-22 09:40 | P.PN_ITS ---
Subjective 2 Subjective: Remains on vent, status post HD yesterday Medications: Reviewed: Yes Vitals/I&O/Wt Last Vital Signs Temp 99.1 F 12/22/23 09:06 Pulse 96 12/22/23 09:06 Resp 18 12/22/23 09:06 BP 153/61 12/22/23 09:06 Pulse Ox 94 12/22/23 08:15 O2 Del Method Mechanical Ventilation 12/22/23 08:06 O2 Flow Rate 2 12/19/23 14:00 FiO2 40 12/22/23 08:15 12/21/23 12/22/23 12/22/23 22:59 06:59 14:59 Intake Total 279.878 / 1140.103 300.00 / 1440.103 100 / 100 Output Total 100 / 3650 350 / 4000 Balance 179.878 / -2509.897 -50 / -2559.897 100 / 100 Weight last 48 hrs Weight 165.108 kg Weight 165.5 kg Weight 169.644 kg Weight 163.5 kg Physical Exam 2 Narrative: on vent Urinary Catheter Management: Latex Free: Cath Placed During This Visit: yes Reason for Continuing Indwelling Catheter: Accurate Measurement of Urinary Output in Critically Ill Patients Urinary Catheter Date of Insertion: 12/12/23 Urinary Catheter Time of Insertion: 15:39 Data 12/22/23 04:13 12/22/23 04:13 Micro: Microbiology 12/20/23 11:00 Gram Stain - Final Sputum - Endotracheal Tube Aspirate Sputum Culture - Preliminary A&P Assessment and plan (1) Acute kidney injury superimposed on chronic kidney disease: Plan 1. Acute on chronic kidney disease stage III: Patient's baseline creatinine of 1.5-1.9, has multiple ROSEMARIE's in the past. -was on Lasix drip with IV albumin every 8 hours, + metolazone 2.5 mg bid daily-->switched to bumex , with no inadequate diuresis so far , - renal fxn worse , - S/P tunnelled catheter placement and HD done yesterday , plan for HD again today , UF as tolerated -2 g sodium restriction and 1500 mL fluid restriction 2. Anemia: s/p transfusion ,will add BOUCHRA 3. Diastolic CHF, diuresis as above, echo 4. Acute on chronic respiratory failure, multifactorial, patient has history of COPD, LIZ and CHF 5. History of diabetes Patient evaluated using audiovisual cart. Time spent 20 minutes. Attestations 2 Medical Necessity Statement*: Per medicine team Coding Level of Care Code Acute Code for Chg Fwd Diagnoses Acute kidney injury superimposed on chronic kidney disease N17.9; N18.9
[2023-12-22 13:07] LABS: Glucose Point of Care 90 mg/dL (70-110)
[2023-12-22] MEDS: hyDRALAzine 50 mg Tablet 100 MG PO ×2 (13:34→21:06)
[2023-12-22] MEDS: pantoprazole DR 40 mg Tablet PO ×2 (13:34→17:52)
[2023-12-22] MEDS: sennosides-docusate Tablet 2 TAB PO ×2 (13:34→17:52)
[2023-12-22] MEDS: ferrous sulfate EC 325 mg Tablet PO (13:34)
[2023-12-22] MEDS: gabapentin 100 mg Capsule PO ×2 (13:35→17:52)
[2023-12-22] MEDS: heparin 5,000 unit/mL INJ 1 mL 5000 UNIT SUBCUT ×2 (13:35→21:06)
[2023-12-22] MEDS: fluoxetine 20 mg Capsule PO (13:35)
[2023-12-22] MEDS: nystatin powder 30 gm Btl 1 APPLIC TOPICAL ×2 (13:42→17:56)
--- NOTE | 2023-12-22 13:54 | PC.NURSE ---
dyalsis rx done removed 3500 cc at this time am medications given and weaning down sedation to assist weaning off vent .. reposition and oral care done
--- NOTE | 2023-12-22 16:37 | PC.NURSE ---
weaned sedation off and attempt to wean vent .. resperations up to 44 and tital volume down to 200 anxious able to answer questions requested tube be taken out now ... related she did not want to be on machine. very anxious and restless on cpap for short time ... unable to tolerate doctor called placed back on sedation
--- NOTE | 2023-12-22 17:18 | P.CONIM_ITS ---
Providers/Reason For Consult 2 Consulting Physician/Specialty*: Jon Dasilva MD FCCP/pulmonary critical care Reason for Consult*: Difficulty weaning Requesting Physician: Morris Doe Attending Physician: Morris Doe Primary Care Provider: PARAG Mensah History of Present Illness History of Present Illness Jennifer Novak is a 68 year old female presented on 12/10/2019 for the emergency department with shortness of breath, abdominal and leg swelling, gradually worsening over previous 2 weeks. She was admitted for fluid overload secondary to CHF exacerbation. She had past medical history of multiple medical problems. History of chronic heart failure with preserved LV ejection fraction and CKD. Last admission for CHF exacerbation in July 2023 with ROSEMARIE, diastolic heart failure and hypoxic respiratory failure. At that time due to worsening renal failure she was started on temporary dialysis-however she had massive bleeding during the procedure requiring blood transfusion. She was transferred to [facility] and spent a month there. Later she was discharged home on 2 L oxygen cannula. She lost about 60 pounds during hospital admission and during admission she reported she gained most of the weight back. Other significant problems including hypertension, insulin requiring diabetes, morbid obesity, COPD, factor V deficiency, chronic anemia /bleeding with Eliquis, GIFTY positive, irritable bowel syndrome,, fibromyalgia, seronegative rheumatoid arthritis of the upper extremities, history of gastroparesis, GERD, obesity, etc. She was started on IV Lasix 80 Mg every 8 hours. Echocardiogram was suboptimal quality but reported LVEF appears to be within normal limits then performed with contrast. Patient had mildly dilated right ventricle with slightly diminished ejection fraction. Her chest x-ray showed significant pulmonary edema. She had acute on chronic CKD stage III with baseline creatinine 1.5-1.9. And creatinine worsened during hospitalization. Despite Lasix 80 every 8 she had inadequate dialysis and so was switched to IV Lasix with IV albumin and metolazone 2.5 daily. She even received blood transfusions. Despite increasing Lasix drip to 40 Mg/hour patient and later switching to Bumex; urine output did not increase significantly and worsening of uremia noted. She is requiring 1 L supplemental oxygen and BiPAP at night. A tunneled dialysis catheter was placed on 12/19/2023-and since then patient was diuresed about 6 L. During the procedure-she was placed on ventilator and unable to extubate and so she was transferred to ICU. Pulmonary critical care consult requested for ventilator management and help with difficult weaning Patient remains on vent and sedated with propofol, fentanyl. Opens eyes and nods head. Chest x-ray today showed extensive pulmonary opacities. Enlarged heart. Review of Systems 2 General: Reports: ROS unobtainable due to endotracheal tube, ROS unobtainable due to medical condition and ROS unobtainable due to mental status Medications/Allergies Home Medications Medication Instructions Recorded Confirmed Last Taken Type cholecalciferol (vitamin D3) 125 125 mcg PO DAILY 05/14/21 12/12/23 12/12/23 History mcg (5,000 unit) tablet (Vitamin D3) acetaminophen 325 mg tablet 325 - 650 mg PO Q6H PRN Pain 12/13/21 12/12/23 Unknown History cyanocobalamin (vitamin B-12) 50 50 mcg PO DAILY ##0 04/12/22 12/12/23 12/12/23 History mcg tablet (Vitamin B-12) blood-glucose meter ([employer] #1 ea 09/29/22 12/12/23 Unknown Rx Ultra2 Meter kit) diabetic shoes with inserts #1 ea 02/25/23 12/12/23 Unknown Rx isosorbide mononitrate 60 mg 60 mg PO DAILY #90 tabs 04/13/23 12/12/23 12/12/23 Rx tablet,extended release 24 hr hydroxychloroquine 200 mg tablet 200 mg PO BID #180 tabs 05/02/23 12/12/23 12/12/23 Rx triamcinolone acetonide 0.1 % 1 applic topical DAILY PRN itching 05/10/23 12/12/23 12/11/23 Rx topical ointment #30 grams lancets 33 gauge ([employer] #100 ea 05/13/23 12/12/23 Unknown Rx Lancets) lancing device with lancets kit #1 ea 05/13/23 12/12/23 Unknown Rx ([employer] Plus Lancing Device kit) fluoxetine 20 mg capsule 20 mg PO DAILY 08/13/23 12/12/23 12/12/23 History fluoxetine 40 mg capsule 40 mg PO BEDTIME 08/13/23 12/12/23 12/11/23 History magnesium oxide 400 mg PO DAILY PRN Muscle Spasm 08/13/23 12/12/23 12/12/23 History oxycodone 5 mg tablet 2.5 - 5 mg PO Q8H PRN Pain 09/08/23 12/12/23 12/12/23 History rosuvastatin 10 mg tablet 10 mg PO QPM 09/08/23 12/12/23 12/11/23 History albuterol sulfate 90 mcg/actuation 2 puff inhalation Q4H PRN 09/15/23 12/12/23 08/13/23 20:00 Rx aerosol inhaler (ProAir HFA) shortness of breath or wheezing #8.5 grams amlodipine 10 mg tablet 10 mg PO DAILY #60 tabs 09/15/23 12/12/23 12/12/23 Rx bumetanide 2 mg tablet 2 mg PO BID #90 tabs 09/15/23 12/12/23 12/12/23 08:00 Rx hydralazine 25 mg tablet 50 mg (2 x 25 mg) PO TID #90 tabs 09/15/23 12/12/23 12/12/23 Rx metoprolol tartrate 25 mg tablet 25 mg PO BID #60 tabs 09/15/23 12/12/23 12/12/23 Rx dicyclomine 20 mg tablet 20 mg PO QID PRN stooling 10/12/23 12/12/23 12/12/23 History insulin degludec 200 unit/mL (3 80 unit (0.4 mL) SUBCUT DAILY #18 10/12/23 12/12/23 12/12/23 Rx mL) subcutaneous pen (Tresiba mL FlexTouch U-200 insulin) pantoprazole 40 mg tablet,delayed 40 mg PO DAILY 10/12/23 12/12/23 12/12/23 History release nystatin 100,000 unit/gram topical 1 applic topical BID #15 grams 10/26/23 12/12/23 12/12/23 Rx powder (Nystop) hydroxyzine pamoate 50 mg capsule 50 mg PO .at bedtime #90 caps 10/28/23 12/12/23 12/11/23 Rx Bariatric emy lift #1 ea 11/04/23 12/12/23 Unknown Rx blood sugar diagnostic (OneTouch #100 ea 11/21/23 12/12/23 Unknown Rx Ultra Test strips) pen needle, diabetic 31 gauge x #200 ea 11/21/23 12/12/23 Unknown Rx 5/16 (TechLITE Pen Needle) potassium chloride 10 mEq 10 meq PO BID #60 tabs 11/21/23 12/12/23 12/12/23 Rx tablet,extended release insulin lispro 100 unit/mL See Rx Instructions SUBCUT 11/25/23 12/12/23 12/12/23 Rx subcutaneous pen (Humalog KwikPen .COMPLEX #15 mL (U-100) Insulin) nitroglycerin 0.4 mg sublingual 0.4 mg sublingual Q5M PRN Chest 11/25/23 12/12/23 Unknown Rx tablet (Nitrostat) Pain #50 tabs ferrous sulfate 325 mg (65 mg 325 mg PO DAILY #30 tabs 11/30/23 12/12/23 12/12/23 08:00 Rx iron) tablet,delayed release Allergies Allergy/AdvReac Type Severity Reaction Status Date / Time acetaminophen [From [place]] Allergy Unknown Verified 12/12/23 14:09 bacitracin Allergy ADR-Nausea Verified 12/12/23 14:09 codeine Allergy ADR-Nausea Verified 12/12/23 14:09 hydrocodone [From [place]] Allergy Unknown Verified 12/12/23 14:09 Latex, Natural Rubber Allergy Unknown Verified 12/12/23 14:09 morphine Allergy ADR-Itching Verified 12/12/23 14:09 neomycin Allergy ALGY-Rash Verified 12/12/23 14:09 [From Neosporin ([id number])] polymyxin B Allergy ALGY-Rash Verified 12/12/23 14:09 [From Neosporin ([id number])] Sulfa (Sulfonamide Allergy ADR-Nausea Verified 12/12/23 14:09 Antibiotics) sulfamethoxazole Allergy Unknown Verified 12/12/23 14:09 [From Bactrim] trimethoprim [From Bactrim] Allergy Unknown Verified 12/12/23 14:09 spironolactone AdvReac Severe temporary Uncoded 12/12/23 14:09 blindness Current Medications Generic Name Dose Route Start Last Admin Trade Name Freq PRN Reason Stop Dose Admin Albuterol/Ipratropium 3 ml 12/18/23 14:00 12/22/23 13:28 Ipratropium-Albuterol 3 Ml Neb INHALATION 3 ml Q6H.RESP HERMINIO Administration Alprazolam 0.5 mg 12/17/23 16:06 12/17/23 16:39 Alprazolam 0.5 Mg Tablet PO 0.5 mg TID PRN Administration ANXIETY Amlodipine Besylate 10 mg 12/13/23 09:00 12/19/23 08:18 Amlodipine 10 Mg Tablet PO 10 mg DAILY HERMINIO Administration Atorvastatin Calcium 20 mg 12/12/23 21:00 12/18/23 20:50 Atorvastatin 40 Mg Tablet PO 20 mg BEDTIME HERMINIO Administration Benzocaine 1 each 12/16/23 09:00 12/17/23 08:38 Cetylpyridinium Lozenge MUCOUS MEM 1 each Q2H PRN Administration SORE THROAT Budesonide 0.5 mg 12/18/23 20:00 12/22/23 08:06 Budesonide 0.5 Mg/2 Ml Neb INHALATION 0.5 mg BID.RESPIRATORY HERMINIO Administration Cyclobenzaprine HCl 10 mg 12/15/23 07:52 12/17/23 08:38 Cyclobenzaprine 10 Mg Tablet PO 10 mg TID PRN Administration MUSCLE SPASMS Ferrous Sulfate 325 mg 12/13/23 09:00 12/22/23 13:34 Ferrous Sulfate Ec 325 Mg Tablet PO 325 mg DAILY HERMINIO Administration Fluoxetine HCl 20 mg 12/13/23 09:00 12/22/23 13:35 Fluoxetine 20 Mg Capsule PO 20 mg DAILY HERMINIO Administration Gabapentin 100 mg 12/17/23 16:20 12/22/23 13:35 Gabapentin 100 Mg Capsule PO 100 mg BID HERMINIO Administration Heparin Sodium (Porcine) 5,000 unit 12/20/23 21:15 12/22/23 13:35 Heparin 5,000 Unit/Ml Inj 1 Ml SUBCUT 5,000 unit Q12H HERMINIO Administration Hydralazine HCl 100 mg 12/19/23 21:00 12/22/23 14:39 Hydralazine 50 Mg Tablet PO Not Given TID HERMINIO Hydromorphone HCl 0.5 mg 12/13/23 11:18 12/20/23 04:20 Hydromorphone 1 Mg/Ml Inj 1 Ml IVP 0.5 mg Q6H PRN Administration PAIN Albumin Human 25 g in 100 mls @ 60 mls/hr 12/14/23 13:30 12/19/23 16:14 Albumin IV Infused Q8H HERMINIO Infusion Meropenem 500 mg/ Sodium 50 mls @ 100 mls/hr 12/19/23 21:51 12/21/23 22:30 Chloride IV Infused Q24H HERMINIO Infusion Protocol Propofol 1,000 mg in 100 mls @ 0 mls/hr 12/20/23 09:00 12/22/23 15:30 Diprivan IV 0 mcg/kg/min .Q0M HERMINIO 0 mls/hr Titration Protocol Per Protocol Fentanyl 1,000 mcg in 100 mls @ 0 mls/hr 12/20/23 09:00 12/22/23 16:01 Sublimaze IV 0 mcg/hr .Q0M HERMINIO 0 mls/hr Titration Protocol Per Protocol Insulin Glargine 20 unit 12/15/23 09:00 12/19/23 08:18 Insulin Glargine 100 Units/1 Ml SUBCUT 20 unit DAILY HERMINIO Administration Insulin Human Lispro 0 unit 12/12/23 21:00 12/22/23 13:35 Insulin Lispro 100 Unit/1 Ml SUBCUT Not Given WM&BEDTIME HERMINIO Protocol Isosorbide Mononitrate 60 mg 12/18/23 18:00 12/19/23 18:06 Isosorbide Mononitrate Er 60 Mg Tablet PO 60 mg BID HERMINIO Administration Nystatin 1 applic 12/13/23 09:00 12/22/23 13:42 Nystatin Powder 30 Gm Btl TOPICAL 1 applic BID HERMINIO Administration Oxycodone HCl 10 mg 12/15/23 07:52 12/19/23 11:13 Oxycodone 5 Mg Ir Tab/Cap PO 10 mg Q8H PRN Administration MODERATE PAIN Pantoprazole Sodium 40 mg 12/13/23 09:00 12/22/23 13:[address] 40 Mg Tablet PO 40 mg BID HERMINIO Administration Senna/Docusate Sodium 2 tab 12/16/23 18:00 12/22/23 13:34 Sennosides-Docusate Tablet PO 2 tab BID HERMINIO Administration Trazodone HCl 100 mg 12/12/23 21:00 12/19/23 22:00 Trazodone 100 Mg Tablet PO 100 mg BEDTIME HERMINIO Administration PFSH Acute 2 PFSH: Medical History Type 2 diabetes mellitus with diabetic chronic kidney disease Gastric ulcer H. pylori ruled out at [facility]-acquired pneumonia Acute exacerbation of CHF (congestive heart failure) Acute on chronic renal failure Diabetic gastroparesis Hypoxia Anemia Positive GIFTY (antinuclear antibody) Frequent falls Muscle spasm High risk medication use Seronegative rheumatoid arthritis of both hands Diabetic foot Hip pain, left Benign hypertension Atypical chest pain IgM monoclonal gammopathy of uncertain significance Chronic diastolic heart failure Intermittent atrial fibrillation Chest pain Edema CKD (chronic kidney disease) stage 3, GFR 30-59 ml/min Urinary disorder Anxiety Pneumonitis Left lumbar radiculopathy Back pain Lymph edema Fracture of distal end of fibula Syncope and collapse Essential tremor Mobility impaired IBS (irritable bowel syndrome) Inflammatory arthritis Chronic back pain Chronic major depressive disorder Peripheral neuropathy Polyarthralgia Edema, peripheral Noncompliance with diabetes treatment Not consistent with diet Near syncope Monoclonal gammopathy Major depression Diabetic neuropathy associated with type 2 diabetes mellitus Severe obstructive sleep apnea Mild cognitive impairment with memory loss Dietary noncompliance Atrial flutter Coronary artery fistula Chronic obstructive pulmonary disease, unspecified Obesity CKD (chronic kidney disease) Benign hypertension Fibromyalgia Diverticulosis Environmental and seasonal allergies Situational anxiety Vitamin D deficiency Surgical History History of left heart catheterization (2018) No significant obstructive coronary disease Hx of esophagogastroduodenoscopy Hx of colonoscopy History of tonsillectomy History of section 4 times History of cholecystectomy (1993) History of hysterectomy (1997) with BSO Family History Brother Bleeding disorder CAD (coronary artery disease) Father CAD (coronary artery disease) Chronic kidney disease (CKD) Mother CAD (coronary artery disease) Cancer Diabetes Family/Other Cancer Other CHF (congestive heart failure) Heart disease Hypertension Denies family history of Clotting disorder Dementia Suicide Anesthesia complication Lung disease Stroke Social History Smoking and tobacco/nicotine status: former use of tobacco/nicotine Quit status (tobacco/nicotine): has quit using Year quit tobacco: 1990 Former quit date comment: smoked 20+ years Second hand smoke exposure: No Alcohol intake: never Substance/Drug Use: never Adopted: No Caregiver/support person: Yes Lives independently: No Household members: children and other Details: Son, sometimes grandson Housing: House Marital status: Single service: No Current occupational status: disabled Do you think of yourself as: Straight/Heterosexual Current gender identity: Female Vitals/I&O/Wt Last Vital Signs Temp 97 F L 12/22/23 16:00 Pulse 97 12/22/23 16:00 Resp 22 H 12/22/23 16:28 BP 177/71 12/22/23 16:00 Pulse Ox 98 12/22/23 16:28 O2 Del Method Mechanical Ventilation 12/22/23 13:28 O2 Flow Rate 2 12/19/23 14:00 FiO2 40 12/22/23 16:28 12/22/23 12/22/23 12/22/23 06:59 14:59 22:59 Intake Total 300.00 / 1440.103 515.098 / 515.098 68.827 / 583.925 Output Total 350 / 4000 3800 / 3800 Balance -50 / -2559.897 -3284.902 / -3284.902 68.827 / -3216.075 Weight last 48 hrs Weight 353 lb 13.471 oz Weight 364 lb Weight 364 lb 13.84 oz Weight 374 lb Physical Exam 2 Narrative: PHYSICAL EXAM: General: lying in bed, sedated and intubated. HEENT:NCAT, PERRLA, EOMI Neck: Supple Lungs: Bilateral diffuse crackles Heart: s1/s2, RRR Abd: soft, NT, ND, BS + Normoactive Extremities: 2+ pitting pedal edema LASTEX THREAD WINDER: sedated and limited LASTEX THREAD WINDER exam possible. SKIN: no rash LDA: # HD Cath : 12/19/2023 right IJ permacath Urinary Catheter Management: Latex Free: Cath Placed During This Visit: yes Reason for Continuing Indwelling Catheter: Accurate Measurement of Urinary Output in Critically Ill Patients Urinary Catheter Date of Insertion: 12/12/23 Urinary Catheter Time of Insertion: 15:39 Data 12/23/23 05:04 12/23/23 05:04 Other Labs: Radiology Impressions Venous Duplex 12/19/23 15:40 IMPRESSION: No evidence of deep vein thrombosis. Laboratory Results WBC 8.23 10^3/uL (3.29-11.43) 12/23/23 05:04 RBC 2.81 10^6/uL (3.85-5.65) L 12/23/23 05:04 Hgb 8.00 g/dL (11.27-16.99) L 12/23/23 05:04 Hct 25.5 % (36-47) L 12/23/23 05:04 MCV 90.7 fl (85-98) 12/23/23 05:04 MCH 28.5 pg (27-33) 12/23/23 05:04 MCHC 31.4 g/dL (30-55) 12/23/23 05:04 RDW 15.9 % (12.1-15.1) H 12/23/23 05:04 Plt Count 140 10^3/cmm (157-399) L 12/23/23 05:04 MPV 10.6 fL (7.4-10.4) H 12/23/23 05:04 Neut % (Auto) 75.3 % 12/23/23 05:04 Lymph % (Auto) 7.2 % 12/23/23 05:04 [place] % (Auto) 12.2 % 12/23/23 05:04 Eos % (Auto) 3.5 % 12/23/23 05:04 Baso % (Auto) 0.6 % 12/23/23 05:04 Neut # (Auto) 6.20 10^3/uL (1.8-7.7) 12/23/23 05:04 Lymph # (Auto) 0.6 10^3/uL (0.8-4.8) L 12/23/23 05:04 [place] # (Auto) 1.0 10^3/uL (0.2-0.9) H 12/23/23 05:04 Eos # (Auto) 0.3 10^3/uL (0.0-0.8) 12/23/23 05:04 Baso # (Auto) 0.1 10^3/uL (0.0-0.1) 12/23/23 05:04 Nucleated RBC % (auto) 0 % 12/23/23 05:04 Nucleated RBCs # 0.0 /100WBC 12/23/23 05:04 PT 15.70 SECONDS (12.1-14.9) H 12/12/23 14:58 INR 1.21 (0.8-1.2) H 12/12/23 14:58 Specimen Type Arterial 12/23/23 04:38 Sample Site Radial, right 12/23/23 04:38 ABG pH 7.42 (7.35-7.45) 12/23/23 04:38 ABG pCO2 41.6 mmHg (35-45) 12/23/23 04:38 ABG pO2 73.5 mmHg (80.0-100.0) L 12/23/23 04:38 ABG PO2/FiO2 Ratio 0 12/23/23 04:38 ABG HCO3 26.9 mmol/L (22-26) H 12/23/23 04:38 ABG O2 Saturation 97.1 12/23/23 04:38 ABG Base Excess 2.2 mmol/L (-2.0-2.0) H 12/23/23 04:38 Sharad Test Pos 12/23/23 04:38 A-a O2 Gradient 11.4 mmHg (5-10) H 12/23/23 04:38 Hematocrit 25.2 % (37-47) L 12/23/23 04:38 Hgb O2 Saturation 94.6 % (95-100) L 12/23/23 04:38 Carboxyhemoglobin 1.6 %THgb (0.4-20.1) 12/23/23 04:38 Methemoglobin 1.0 % (0.4-1.5) 12/23/23 04:38 Total Hemoglobin 8.2 g/dL (12-16) L 12/23/23 04:38 Sodium 140.0 mmol/L (131-143) 12/23/23 04:38 Potassium 3.2 mmol/L (3.5-5.0) L 12/23/23 04:38 Glucose 101.0 mg/dL (70-115) 12/23/23 04:38 Ionized Calcium 1.2 mmol/L (1.1-1.4) 12/23/23 04:38 O2 Delivery Device Vent 12/23/23 04:38 O2 Liters/Min 2.0 % 12/17/23 11:20 FiO2 30.0 % 12/23/23 04:38 Tidal Volume 0.45 12/23/23 04:38 PEEP 10.0 cmH20 12/23/23 04:38 Facilities Maintenance Engineer ID [email or web address] 12/23/23 04:38 Sodium 138 mmol/L (136-145) 12/23/23 05:04 Potassium 3.4 mmol/L (3.5-5.1) L 12/23/23 05:04 Chloride 97 mmol/L (98-107) L 12/23/23 05:04 Carbon Dioxide 24 mmol/L (22-29) 12/23/23 05:04 Anion Gap 20.4 (5-19) H 12/23/23 05:04 BUN 39 mg/dL (8-23) H 12/23/23 05:04 Creatinine 2.8 mg/dL (0.5-0.9) H 12/23/23 05:04 GFR Calculation 16.9 mL/min (90-130) L 12/23/23 05:04 Glucose 103 mg/dL (65-115) 12/23/23 05:04 POC Glucose 109 mg/dL (70-110) 12/23/23 16:48 Calculated Osmolality 296 mOsm/kg (285-295) H 12/23/23 05:04 Calcium 9.2 mg/dL (8.5-10.5) 12/23/23 05:04 Magnesium 2.8 mg/dL (1.7-2.3) H 12/17/23 03:05 Total Bilirubin 0.3 mg/dL (0.15-1.2) 12/23/23 05:04 AST 32 U/L (0-32) 12/23/23 05:04 ALT 13 U/L (0-33) 12/23/23 05:04 Alkaline Phosphatase 69 U/L (35-105) 12/23/23 05:04 Creatine Kinase 38 U/L (26-192) 12/19/23 04:09 Troponin T Baseline 73 ng/L (0-10) H 12/12/23 14:58 Troponin T 120 Minute 70.53 ng/L (0-10) H 12/12/23 16:53 Delta Troponin T -2.47 ABS# (0-10) L 12/12/23 16:53 Troponin T Hi Sens 6Hr 70.55 ng/L (0-10) H 12/12/23 20:29 Troponin T Hi Sens 6Hr Delta -2.45 ng/L (0-12) L 12/12/23 20:29 NT-Pro-B Natriuret Pep 9694 pg/mL (0-125) H 12/12/23 14:58 Total Protein 6.1 g/dL (6.6-8.7) L 12/23/23 05:04 Albumin 3.6 g/dL (3.5-5.2) 12/23/23 05:04 Globulin 2.5 g/dL (1.3-4.6) 12/23/23 05:04 Urine Color Yellow (Yellow) 12/17/23 12:30 Urine Appearance Clear (CLEAR) 12/17/23 12:30 Urine pH 5 (5-7) 12/17/23 12:30 Ur Specific [place] 1.010 (1.005-1.030) 12/17/23 12:30 Urine Protein Trace (Negative) 12/17/23 12:30 Urine Glucose (UA) Norm (Normal) 12/17/23 12:30 Urine Ketones Negative (Negative) 12/17/23 12:30 Urine Blood 3+ (Negative) H 12/17/23 12:30 Urine Nitrate Negative (Negative) 12/17/23 12:30 Urine Bilirubin Neg (Negative) 12/17/23 12:30 Urine Urobilinogen Norm mg/dL (Negative) 12/17/23 12:30 Ur Leukocyte Esterase Negative (Negative) 12/17/23 12:30 Urine RBC 25-40 /hpf (0-2) H 12/17/23 12:30 Urine WBC 5-10 /hpf (0-5) H 12/17/23 12:30 Ur Squamous Epith Cells 0-4 /hpf (0-5) H 12/17/23 12:30 Amorphous Sediment Not Reportable 12/17/23 12:30 Urine Bacteria 2+ /hpf (NONE) H 12/17/23 12:30 Hyaline Casts 0-4 /lpf H 12/17/23 12:30 Ur Random Sodium 57 mmol/L 12/17/23 12:30 Ur Random Potassium 60 mmol/L 12/17/23 12:30 Ur Random Chloride 96 mmol/L 12/17/23 12:30 Urine Creatinine 47 mg/dL (28-217) 12/17/23 12:30 Hep Bs Antigen Non-reactive (Nonreactive) 12/20/23 06:04 Hep Bs Antibody 5.5 (11.5-1000) L 12/20/23 06:04 Hep B Core Total Ab Non-reactive (Nonreactive) 12/20/23 06:04 Blood Type B Positive 12/15/23 07:46 Rho(D) Type Rh positive 12/15/23 07:46 Antibody Screen Negative 12/15/23 07:46 Crossmatch See Detail 12/15/23 07:46 Micro: Microbiology 12/20/23 11:00 Gram Stain - Final Sputum - Endotracheal Tube Aspirate Sputum Culture - Final A&P Assessment and plan (1) LIZ (obstructive sleep apnea): (2) Acute on chronic diastolic (congestive) heart failure: (3) Acute kidney injury superimposed on chronic kidney disease: (4) Difficult ventilator weaning: (5) UTI due to Klebsiella species: Plan # Acute respiratory failure secondary to fluid overload due to acute on chronic diastolic heart failure/acute on chronic kidney disease -She is currently started on hemodialysis-removed 6 L so far -For respiratory support-she is on mechanical ventilator-400/8/40% FiO2- currently sedated with fentanyl and propofol -Patient follows opens eyes and follows commands and unable to tolerate breathing trial -Worsening infiltrates on chest x-ray -Recommended to continue diuresis; will increase PEEP to prevent atelectasis given her morbid obesity -Patient is currently on meropenem for Klebsiella pneumonia in urine cultures- yesterday Zyvox was added for broader coverage given worsening infiltrates-this could all be secondary to fluid and atelectasis-endotracheal aspirate cultures pending -Hemodynamically stable with no pressor requirements -Will continue to do SAT and SBT # [id number]-palptdf on dialysis # Sugars [id number] insulin glargine and scale coverage ICU CHECKLIST: Problem list updated Verbal orders reviewed and signed Code Status: Full Disposition: ICU Critically ill: Yes MD discussed with: hospitalist, RN, RT Analgesia: Yes Glycemic Control: Insulin Nutrition: NG feeding Restraint Renewal (within 24 hrs): Yes Ulcer Prophylaxis: PPI Chemical Thromboprophylaxis: Prophylaxis: Heparin Mechanical Thromboprophylaxis: SCDs Need for Central line: No Need for [place] catheter: Yes Consult Attestations 2 Medical Necessity Statement: Still intubated and requires ICU monitoring Time Spent in Patient Care: Greater than 35 minutes (>than 50% of time spent in counselling and/or direct pt care on unit) . Critical Care Time: This patient has a high probability of clinically significant, sudden or life threatening deterioration of the patient's (cardiac, pulmonary, renal, neurological) systems required my full, direct attention, the highest level of physician preparedness for urgent intervention and personal management. I managed/supervised life or organ supporting interventions that required frequent physician assessment. I devoted my full attention in the ICU to the direct care of this patient for the period of time indicated above. Time I spent with family or surrogate(s) is included only if the patient was incapable of providing necessary information or participating in decision making. This time includes the following services provided: Telemetry review Mechanical Ventilation Hemodynamic interpretation, assessment and management Review and interpretation of CXR Review and interpretation of lab values Review and interpretation of microbiologic data and culture results Review of medications and administration Review and interpretation of Nutrition requirements and management Discussion of management with other consultants and services Clinical update to family members [x] Data and vital sign review and interpretation [x] Patient assessment, examination and intervention [x] Documentation [x] Medication orders and management Time spent for teaching as well as performing procedures are billed separately and is not included in this note Critical Care Time (min): 65 Coding Level of Care Code Acute Code for Chg Fwd Diagnoses LIZ (obstructive sleep apnea) G47.33 Acute on chronic diastolic (congestive) heart failure I50.33 Acute kidney injury superimposed on chronic kidney disease N17.9; N18.9 Difficult ventilator weaning Z99.11 UTI due to Klebsiella species N39.0; B96.89 Time Spent (min) 65
[2023-12-22 17:52] LABS: Glucose Point of Care 104 mg/dL (70-110)
[2023-12-22] MEDS: linezolid premix 600 MG/300 ML PREMIX 300 MG IV (17:52)
[2023-12-22 21:09] LABS: Glucose Point of Care 119 mg/dL (70-110)
[2023-12-22] MEDS: meropenem 500 MG in sodium chloride 0.9% (plus) 50 ML 100 MG IV (21:11)
--- NOTE | 2023-12-22 21:55 | P.PN_ITS ---
Subjective 2 Subjective: On mechanical ventilatory support. Vitals/I&O/Wt Last Vital Signs Temp 97 F L 12/22/23 16:00 Pulse 82 12/22/23 20:30 Resp 18 12/22/23 20:30 BP 177/71 12/22/23 16:00 Pulse Ox 97 12/22/23 20:30 O2 Del Method Mechanical Ventilation 12/22/23 20:30 O2 Flow Rate 2 12/19/23 14:00 FiO2 40 12/22/23 20:30 12/22/23 12/22/23 12/22/23 06:59 14:59 22:59 Intake Total 300.00 / 1440.103 515.098 / 515.098 594.819 / 1109.917 Output Total 350 / 4000 3800 / 3800 Balance -50 / -2559.897 -3284.902 / -3284.902 594.819 / -2690.083 Weight last 48 hrs Weight 160.5 kg Weight 165.108 kg Weight 165.5 kg Weight 169.644 kg Physical Exam 2 Const: GENERAL APPEARANCE: patient mechanically ventilated HENMT: COMMON NORMALS: oropharynx normal Neck/C-Spine: COMMON NORMALS: no JVD Resp: COMMON NORMALS: normal respiratory effort and clear to auscultation bilaterally AUSCULTATION: clear to auscultation bilaterally Cardio: COMMON NORMALS: no JVD, regular rhythm, S1 normal heart sound present, S2 normal heart sound present and No murmurs present (Cardio) RHYTHM: regular rhythm HEART SOUNDS: S1 normal heart sound present and S2 normal heart sound present GI: COMMON NORMALS: Normal to inspection, nondistended, normoactive bowel sounds present, Soft to palpation and non-tender PALPATION: Yes Soft to palpation Extremity: COMMON NORMALS: no joint enlargement OTHER: Improving anasarca, both lower extremities and upper extremities. Right upper extremity worse swelling. Swelling/puffiness of both hands. Hands are warm, perfused. Neuro: COMMON NORMALS: moves all extremities Urinary Catheter Management: Latex Free: Cath Placed During This Visit: yes Reason for Continuing Indwelling Catheter: Accurate Measurement of Urinary Output in Critically Ill Patients Urinary Catheter Date of Insertion: 12/12/23 Urinary Catheter Time of Insertion: 15:39 Data 12/22/23 04:13 12/22/23 04:13 Micro: Microbiology 12/20/23 11:00 Gram Stain - Final Sputum - Endotracheal Tube Aspirate Sputum Culture - Final A&P Assessment and plan (1) SOB (shortness of breath): Persistent respiratory failure, congestive heart failure, but appears also pneumonia, worsening chest x-ray with worsening infiltrates, has had some copious thick sputum. Continue meropenem. Add linezolid. Discussed with pulmonology. Appreciate consultation with difficulty weaning of mechanical ventilatory support. Continue hemodialysis for anasarca/CHF in setting of renal failure. Discussed with respiratory therapy. Not ready for extubation at current time. Sputum cultures reviewed, normal tamar. Follow-up. Obtain MRSA PCR. Cont inhaled budesonide. After extubation continue oxygen support, BiPAP support as needed and with sleep for LIZ Hemodialysis. Most likely a combination of obstructive sleep apnea, diastolic heart failure, COPD and anxiety. Keep oxygen supplementation over 88 to 90%. Nebulization treatment. (2) ROSEMARIE (acute kidney injury): Acute renal failure, continue dialysis. Status post hemodialysis catheter placement. Started on dialysis today. Reviewed vitals, CBC, CMP. Reviewed nephrology note. Monitor urine output. Reassess chemistry, renal function. Discussed with dependency case manager. (3) Acute exacerbation of congestive heart failure: Reviewed vitals, CBC, ABG, CMP, reviewed nephrology note. In negative balance. Edema with some gradual improvement. Continue dialysis. Echocardiogram showed ejection fraction within normal limits right ventricular dilation bilateral atrial enlarged tricuspid regurgitation no pericardial. Most likely diastolic heart failure. Patient takes Bumex 2 mg twice daily at home. Overall around 1200 cc negative since admission. With very poor response to aggressive diuresis with worsening of renal functions. Continue with fluid restriction up to 1500 cc. Strict input charting, daily weights. Juárez catheterization. Not sure about CHF being the only reason for patient's shortness of breath. Continue with Xanax 0.5 every 8 hourly as needed for anxiety. Cannot give morphine as patient has morphine allergy with itching. Though has been able to tolerate hydromorphone. Continue with home dose of duloxetine. Continue to optimize hypertension. Medications held till NG tube placed. Continues on amlodipine, hydralazine. Qualifiers: Heart failure type: unspecified Qualified Code(s): I50.9 - Heart failure, unspecified (4) LIZ (obstructive sleep apnea): BiPAP nightly and when resting. Patient is due for a sleep study as an outpatient. Patient will benefit with BiPAP as an outpatient on discharge also. (5) Chronic obstructive pulmonary disease, unspecified: Nebulization treatment as above. Qualifiers: COPD type: unspecified COPD Qualified Code(s): J44.9 - Chronic obstructive pulmonary disease, unspecified (6) Anemia: Reviewed hemoglobin and platelets. Appears to be stable so far. Hemoglobin improved following transfusion of 1 unit packed red blood cells on December 15 Anemia likely related to chronic kidney disease, autoimmune disease. Continue with Protonix twice daily. Continue with oral iron supplementation. Qualifiers: Anemia type: iron deficiency Iron deficiency anemia type: inadequate dietary iron intake Qualified Code(s): D50.8 - Other iron deficiency anemias (7) Type 2 diabetes mellitus with diabetic chronic kidney disease: Sliding scale insulin Continue long-acting insulin Consistent carb diet Qualifiers: Diabetes mellitus longterm insulin use: with longterm use Chronic kidney disease stage: stage 4 (severe) Qualified Code(s): E11.22 - Type 2 diabetes mellitus with diabetic chronic kidney disease; N18.4 - Chronic kidney disease, stage 4 (severe); Z79.4 - USP (current) use of insulin Plan Generalized weakness: Possibly uremic symptoms, arrangements for renal replacement therapy as above. Possibly myopathy with statin, held atorvastatin for now. Check CK, reviewed, normal. Possibly some contribution of UTI, starting antibiotic as per discussion with her daughter. UTI: Complicated UTI with MDRO Klebsiella resistant to all antibiotics except ceramics and and imipenem. Discussed with her daughter. Discussed consideration of treatment, risks, benefits, risks and setting of marked renal failure. Will adjust dose with meropenem, monitor for risk of seizure. Decrease dose to 500 mg in 24 hours. Anasarca: Arrangements for renal replacement therapy as above. Were swelling of right upper extremity compared to left: Assess venous duplex for any DVT. Constipation is multifactorial. senna 2 tablets twice daily, monitor for bowel movement. Hypertension: amlodipine 10 mg daily, hydralazine 50 mg 3 times daily, Imdur. Full code Heparin for DVT prophylaxis Attestations 2 Medical Necessity Statement*: Continue with for assessment management of respiratory failure, acute renal failure. Coding Level of Care Code Critical Care >/= 30 minutes Critical care time (in minutes): 45 The high probability of a clinically significant, sudden or life threatening deterioration, as referenced in this documentation, required my full and direct attention, intervention and personal management. The critical care time shown is in addition to time spent performing any reported separately billable procedures and includes the following: [x] Data and vital sign review and interpretation [x ] Patient assessment, examination and intervention [x] Medication orders and management [x] Patient/Family updates as able [x] Care Coordination and Documentation. 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
[2023-12-23] VITALS (30 sets, daily range): BP systolic 120–159; BP diastolic 46–74; PULSE 73–83; RESP 16–18; TEMP 36.3–37.3; O2SAT 96–99
[2023-12-23] MEDS: propofol 1,000 MG/100 ML INJ 24.75 MG IV ×3 (00:08→09:11)
[2023-12-23] MEDS: fentaNYL 1,000 MCG/100 ML BAG 5 MCG IV ×2 (01:13→23:54)
[2023-12-23] MEDS: ipratropium-albuterol 3 mL Neb INHALATION ×4 (01:50→20:15)
[2023-12-23 04:45] LABS: ABG PCO2 41.6 mmHg (35-45); ABG PH Result 7.42 (7.35-7.45); Alveolar-Arterial Oxygen Gradi 11.4 mmHg (5-10); Arterial Blood Gas Hematocrit 25.2 % (37-47); Base Excess ABG 2.2 mmol/L (-2.0-2.0); Blood Gas Allen Test Pos; Blood Gas Sample Site Radial, right; Blood Gas Sample Type Arterial; Blood Gas Tidal Volume 0.45; Carboxyhemoglobin 1.6 %THgb (0.4-20.1); HCO3 ABG 26.9 mmol/L (22-26); HGB O2 Sat 94.6 % (95-100); Ionized Calcium Level - ABG 1.2 mmol/L (1.1-1.4); Oxygen Device VENT; Oxygen Saturation ABG 97.1; PO2 ABG 73.5 mmHg (80.0-100.0); PO2 FiO2 Ratio Arterial Blood 0; Potassium Level - ABG 3.2 mmol/L (3.5-5.0); Total Hemoglobin 8.2 g/dL (12-16)
[2023-12-23] MEDS: linezolid premix 600 MG/300 ML PREMIX 300 MG IV ×2 (05:06→16:35)
[2023-12-23 05:23] LABS: Basophils # 0.1 10^3/uL (0.0-0.1); Basophils % 0.6 %; Eosinophils # 0.3 10^3/uL (0.0-0.8); Eosinophils % 3.5 %; Hematocrit 25.5 % (36-47); Lymphocytes # 0.6 10^3/uL (0.8-4.8); Lymphocytes % 7.2 %; Mean Corpuscular HGB Conc 31.4 g/dL (30-55); Mean Corpuscular Hemoglobin 28.5 pg (27-33); Mean Corpuscular Volume 90.7 fl (85-98); Mean Platelet Volume 10.6 fL (7.4-10.4); Monocytes % 12.2 %; Neutrophils % 75.3 %; Nucleated Red Blood Cells % 0 %; Platelet Count 140 10^3/cmm (157-399); Red Blood Count 2.81 10^6/uL (3.85-5.65); Red Cell Distribution Width 15.9 % (12.1-15.1); White Blood Count 8.23 10^3/uL (3.29-11.43)
[2023-12-23 05:51] LABS: Alanine Aminotransferase 13 U/L (0-33); Albumin Level 3.6 g/dL (3.5-5.2); Alkaline Phosphatase 69 U/L (35-105); Anion Gap 20.4 (5-19); Aspartate Amino Transferase 32 U/L (0-32); Blood Urea Nitrogen 39 mg/dL (8-23); Calcium 9.2 mg/dL (8.5-10.5); Carbon Dioxide 24 mmol/L (22-29); Chloride 97 mmol/L (98-107); Globulin 2.5 g/dL (1.3-4.6); Glomerular Filtration Rate 16.9 mL/min (90-130); Glucose 103 mg/dL (65-115); Osmolality Calculated 296 mOsm/kg (285-295); Potassium 3.4 mmol/L (3.5-5.1); Sodium 138 mmol/L (136-145); Total Bilirubin 0.3 mg/dL (0.15-1.2); Total Protein 6.1 g/dL (6.6-8.7)
[2023-12-23 07:51] LABS: Glucose Point of Care 109 mg/dL (70-110)
[2023-12-23] MEDS: budesonide 0.5 mg/2 mL Neb INHALATION ×2 (08:10→20:15)
--- NOTE | 2023-12-23 08:17 | XR_ITS ---
WS: [id number] Portable AP supine chest, 12/23/2023 Clinical Data: fluid overload, increased peep requirements Comparison: Portable chest, 12/22/2023 Findings: The diffuse pulmonary opacities remain the same. The heart is enlarged. The multiple tubes remain in the same position. Monitor leads are on the chest wall. Impression: No change in diffuse pulmonary opacities in position of multiple tubes.
[2023-12-23] MEDS: fluoxetine 20 mg Capsule PO (08:29)
[2023-12-23] MEDS: ferrous sulfate EC 325 mg Tablet PO (08:29)
[2023-12-23] MEDS: gabapentin 100 mg Capsule PO ×2 (08:29→17:44)
[2023-12-23] MEDS: sennosides-docusate Tablet 2 TAB PO ×2 (08:29→17:44)
[2023-12-23] MEDS: heparin 5,000 unit/mL INJ 1 mL 5000 UNIT SUBCUT ×2 (08:29→21:34)
[2023-12-23] MEDS: nystatin powder 30 gm Btl 1 APPLIC TOPICAL ×2 (08:30→17:48)
--- NOTE | 2023-12-23 09:09 | PM.PN ---
Subjective Subjective: remains on vent Medications: Reviewed: Yes Vitals/I&O/Wt Last Vital Signs Temp 98.7 F 12/23/23 04:00 Pulse 77 12/23/23 08:00 Resp 16 12/23/23 08:00 BP 120/51 12/23/23 04:00 Pulse Ox 97 12/23/23 08:00 O2 Del Method Mechanical Ventilation 12/23/23 08:00 O2 Flow Rate 2 12/19/23 14:00 FiO2 35 12/23/23 08:00 12/22/23 12/23/23 12/23/23 22:59 06:59 14:59 Intake Total 704.819 / 1219.917 223.646 / 1443.563 300 / 300 Output Total 125 / 3925 Balance 704.819 / -2580.083 98.646 / -2481.437 300 / 300 Weight last 48 hrs Weight 158.667 kg Weight 160.5 kg Weight 165.108 kg Weight 165.5 kg Physical Exam Narrative: on vent Urinary Catheter Management: Latex Free: Cath Placed During This Visit: yes Reason for Continuing Indwelling Catheter: Accurate Measurement of Urinary Output in Critically Ill Patients Urinary Catheter Date of Insertion: 12/12/23 Urinary Catheter Time of Insertion: 15:39 Data 12/23/23 05:04 12/23/23 05:04 Micro: Microbiology 12/20/23 11:00 Gram Stain - Final Sputum - Endotracheal Tube Aspirate Sputum Culture - Final A&P Assessment and plan (1) Acute kidney injury superimposed on chronic kidney disease: Plan 1. Acute on chronic kidney disease stage III: Patient's baseline creatinine of 1.5-1.9, has multiple ROSEMARIE's in the past. -was on Lasix drip with IV albumin every 8 hours, + metolazone 2.5 mg bid daily-->switched to bumex , with no inadequate diuresis so far , - S/P tunnelled catheter placement and HD done yesterday , plan for ultrafiltration today -2 g sodium restriction and 1500 mL fluid restriction 2. Anemia: s/p transfusion ,will add BOUCHRA 3. Diastolic CHF, diuresis as above, echo 4. Acute on chronic respiratory failure, multifactorial, Intubated , patient has history of COPD, LIZ and CHF 5. History of diabetes Patient evaluated using audiovisual cart. Time spent [address] [facility] Necessity Statement*: per medicine Coding Level of Care Code Acute Code for Chg Fwd Diagnoses Acute kidney injury superimposed on chronic kidney disease N17.9; N18.9
--- NOTE | 2023-12-23 11:26 | PC.NUTR ---
Consider enteral nutrition support via NG once medically appropriate following RD recs below -Vital AF @ 20 ml/hr x24hrs -30ml Prosource TID -FWF @ 100 ml TID See most recent RD note for details.
[2023-12-23 11:48] LABS: Glucose Point of Care 105 mg/dL (70-110)
[2023-12-23 13:01] LABS: Glucose Point of Care 106 mg/dL (70-110)
--- NOTE | 2023-12-23 13:32 | PC.SOCIAL ---
IMM Update pg 2 of IMM not updated as patient is intubated and not anticipated to DC in the next 48-72 hours. Copy left @ bedside and copy dated, initialed and placed in chart.
[2023-12-23] MEDS: heparin, porcine 1,000 unit/mL INJ 10 mL 10000 UNIT INTRACATH (13:38)
[2023-12-23] MEDS: propofol 1,000 MG/100 ML INJ 19.8 MG IV ×3 (13:43→23:02)
[2023-12-23] MEDS: lanolin oint 7 gm 1 APPLIC TOPICAL (14:24)
--- NOTE | 2023-12-23 15:02 | PC.HD ---
HD catheter arterial port instilled with 2.4 mL heparin (2400 units); venous port instilled with 2.5 mL heparin (2500 units) at conclusion of dialysis treatment.
--- NOTE | 2023-12-23 16:41 | PC.NURSE ---
SHift SUmmary: Patient receieved dialysis today, 3000mL removed. 75mL of urine output. FIO2 reduced form 40% down to 35%. Sedation vacation for about 4 hours, patient was able to follow simple commands such as squeeze hands and opens her eyes to her name. Swelling continues to decrease, but nurse still would describe as 3+, secretions have continued to decrease, Patient now tolerates left, right, and supine lying whereas previously she would not tolerate left side lying and at times would desaturate with repositioning.
[2023-12-23 16:50] LABS: Glucose Point of Care 109 mg/dL (70-110)
--- NOTE | 2023-12-23 17:20 | PM.PN ---
Subjective Subjective: -No significant change in clinical status -No significant change in chest x-ray-still has diffuse infiltrates increase PEEP to 12 -When tapering off sedation-patient is opening eyes and following commands -She is scheduled for hemodialysis today and plans to take 3 L -Will continue mechanical ventilatory support and will assess tomorrow for extubation Medications: Reviewed: Yes Medication Review Details: Current Medications Albuterol/Ipratropium (Ipratropium-Albuterol 3 Ml Neb) 3 ml INHALATION Q6H.RESP HERMINIO Last Admin: 12/19/23 15:54 Dose: 3 ml Alprazolam (Alprazolam 0.5 Mg Tablet) 0.5 mg PO TID PRN PRN Reason: ANXIETY Last Admin: 12/17/23 16:39 Dose: 0.5 mg Amlodipine Besylate (Amlodipine 10 Mg Tablet) 10 mg PO DAILY [facility] Last Admin: 12/19/23 08:18 Dose: 10 mg Atorvastatin Calcium (Atorvastatin 40 Mg Tablet) 20 mg PO BEDTIME [facility] Last Admin: 12/18/23 20:50 Dose: 20 mg Benzocaine (Cetylpyridinium Lozenge) 1 each MUCOUS MEM Q2H PRN PRN Reason: SORE THROAT Last Admin: 12/17/23 08:38 Dose: 1 each Budesonide (Budesonide 0.5 Mg/2 Ml Neb) 0.5 mg INHALATION BID.RESPIRATORY [facility] Last Admin: 12/19/23 07:38 Dose: 0.5 mg Chlorhexidine Gluconate (Chlorhexidine Gluconate 4% Btl 118 Ml) 1 applic TOPICAL BID [facility] Cyclobenzaprine HCl (Cyclobenzaprine 10 Mg Tablet) 10 mg PO TID PRN PRN Reason: MUSCLE SPASMS Last Admin: 12/17/23 08:38 Dose: 10 mg Dextrose (Dextrose 50% Syringe 50 Ml) 25 ml IVP ONCE PRN; Protocol PRN Reason: hypoglycemia protocol Dextrose (Dextrose 50% Syringe 50 Ml) 50 ml IVP PRN PRN; Protocol PRN Reason: hypoglycemia protocol Ferrous Sulfate (Ferrous Sulfate Ec 325 Mg Tablet) 325 mg PO DAILY [facility] Last Admin: 12/19/23 08:18 Dose: 325 mg Fluoxetine HCl (Fluoxetine 20 Mg Capsule) 20 mg PO DAILY [facility] Last Admin: 12/19/23 08:18 Dose: 20 mg Gabapentin (Gabapentin 100 Mg Capsule) 100 mg PO BID [facility] Last Admin: 12/19/23 08:18 Dose: 100 mg Hydralazine HCl (Hydralazine 50 Mg Tablet) 50 mg PO TID [facility] Last Admin: 12/19/23 14:18 Dose: 50 mg Hydromorphone HCl (Hydromorphone 1 Mg/Ml Inj 1 Ml) 0.5 mg IVP Q6H PRN PRN Reason: PAIN Last Admin: 12/19/23 16:15 Dose: 0.5 mg Dextrose (D5w) 500 mls @ 0 mls/hr IV ONCE PRN; Protocol PRN Reason: Adult Acute Hypoglycemia Prot Albumin Human (Albumin) 25 g in 100 mls @ 60 mls/hr IV Q8H [facility] Last Infusion: 12/19/23 16:14 Dose: Infused Insulin Glargine (Insulin Glargine 100 Units/1 Ml) 20 unit SUBCUT DAILY [facility] Last Admin: 12/19/23 08:18 Dose: 20 unit Insulin Human Lispro (Insulin Lispro 100 Unit/1 Ml) 0 unit SUBCUT WM&BEDTIME [facility]; Protocol Last Admin: 12/19/23 17:03 Dose: Not Given Isosorbide Mononitrate (Isosorbide Mononitrate Er 60 Mg Tablet) 60 mg PO BID [facility] Last Admin: 12/19/23 08:18 Dose: 60 mg Naloxone HCl (Naloxone 0.4 Mg/Ml Sdv) 0.4 mg IVP PRN PRN PRN Reason: RESPIRATORY RATE < 8/MIN Nystatin (Nystatin Powder 30 Gm Btl) 1 applic TOPICAL BID [facility] Last Admin: 12/19/23 09:19 Dose: Not Given Ondansetron HCl (Ondansetron 2 Mg/Ml Sdv 2 Ml) 4 mg IVP Q6H PRN PRN Reason: vomiting, or N/V if npo Oxycodone HCl (Oxycodone 5 Mg Ir Tab/Cap) 10 mg PO Q8H PRN PRN Reason: MODERATE PAIN Last Admin: 12/19/23 11:13 Dose: 10 mg Pantoprazole Sodium (Pantoprazole Dr 40 Mg Tablet) 40 mg PO BID [facility] Last Admin: 12/19/23 08:18 Dose: 40 mg Senna/Docusate Sodium (Sennosides-Docusate Tablet) 2 tab PO BID [facility] Last Admin: 12/19/23 08:18 Dose: 2 tab Trazodone HCl (Trazodone 100 Mg Tablet) 100 mg PO BEDTIME HERMINIO Last Admin: 12/18/23 20:50 Dose: 100 mg Vitals/I&O/Wt Last Vital Signs Temp 98.7 F 12/23/23 16:00 Pulse 76 12/23/23 16:00 Resp 16 12/23/23 16:00 BP 128/47 12/23/23 16:00 Pulse Ox 96 12/23/23 16:00 O2 Del Method Mechanical Ventilation 12/23/23 16:00 O2 Flow Rate 2 12/19/23 14:00 FiO2 35 12/23/23 16:00 12/23/23 12/23/23 12/23/23 06:59 14:59 22:59 Intake Total 223.646 / 1443.563 522.331 / 522.331 700 / 1222.331 Output Total 125 / 3925 75 / 75 3700 / 3775 Balance 98.646 / -2481.437 447.331 / 447.331 -3000 / -2552.669 Weight last 48 hrs Weight 346 lb 2.012 oz Weight 349 lb 12.8 oz Weight 353 lb 13.471 oz Weight 364 lb Physical Exam Narrative: PHYSICAL EXAM: General: lying in bed, sedated and intubated. HEENT:NCAT, PERRLA, EOMI Neck: Supple Lungs: Bilateral diffuse crackles Heart: s1/s2, RRR Abd: soft, NT, ND, BS + Normoactive Extremities: 2+ pitting pedal edema PROJECT MANAGEMENT MANAGER: sedated and limited PROJECT MANAGEMENT MANAGER exam possible. SKIN: no rash LDA: # HD Cath : 12/19/2023 right IJ permacath Urinary Catheter Management: Latex Free: Cath Placed During This Visit: yes Reason for Continuing Indwelling Catheter: Accurate Measurement of Urinary Output in Critically Ill Patients Urinary Catheter Date of Insertion: 12/12/23 Urinary Catheter Time of Insertion: 15:39 Data 12/23/23 05:04 12/23/23 05:04 Other Labs: Radiology Impressions Venous Duplex 12/19/23 15:40 IMPRESSION: No evidence of deep vein thrombosis. Laboratory Results WBC 8.23 10^3/uL (3.29-11.43) 12/23/23 05:04 RBC 2.81 10^6/uL (3.85-5.65) L 12/23/23 05:04 Hgb 8.00 g/dL (11.27-16.99) L 12/23/23 05:04 Hct 25.5 % (36-47) L 12/23/23 05:04 MCV 90.7 fl (85-98) 12/23/23 05:04 MCH 28.5 pg (27-33) 12/23/23 05:04 MCHC 31.4 g/dL (30-55) 12/23/23 05:04 RDW 15.9 % (12.1-15.1) H 12/23/23 05:04 Plt Count 140 10^3/cmm (157-399) L 12/23/23 05:04 MPV 10.6 fL (7.4-10.4) H 12/23/23 05:04 Neut % (Auto) 75.3 % 12/23/23 05:04 Lymph % (Auto) 7.2 % 12/23/23 05:04 Bosque % (Auto) 12.2 % 12/23/23 05:04 Eos % (Auto) 3.5 % 12/23/23 05:04 Baso % (Auto) 0.6 % 12/23/23 05:04 Neut # (Auto) 6.20 10^3/uL (1.8-7.7) 12/23/23 05:04 Lymph # (Auto) 0.6 10^3/uL (0.8-4.8) L 12/23/23 05:04 Bosque # (Auto) 1.0 10^3/uL (0.2-0.9) H 12/23/23 05:04 Eos # (Auto) 0.3 10^3/uL (0.0-0.8) 12/23/23 05:04 Baso # (Auto) 0.1 10^3/uL (0.0-0.1) 12/23/23 05:04 Nucleated RBC % (auto) 0 % 12/23/23 05:04 Nucleated RBCs # 0.0 /100WBC 12/23/23 05:04 PT 15.70 SECONDS (12.1-14.9) H 12/12/23 14:58 INR 1.21 (0.8-1.2) H 12/12/23 14:58 Specimen Type Arterial 02/02/24 04:38 Sample Site Radial, right 12/23/23 04:38 ABG pH 7.42 (7.35-7.45) 12/23/23 04:38 ABG pCO2 41.6 mmHg (35-45) 12/23/23 04:38 ABG pO2 73.5 mmHg (80.0-100.0) L 12/23/23 04:38 ABG PO2/FiO2 Ratio 0 12/23/23 04:38 ABG HCO3 26.9 mmol/L (22-26) H 12/23/23 04:38 ABG O2 Saturation 97.1 12/23/23 04:38 ABG Base Excess 2.2 mmol/L (-2.0-2.0) H 12/23/23 04:38 Sharad Test Pos 12/23/23 04:38 A-a O2 Gradient 11.4 mmHg (5-10) H 12/23/23 04:38 Hematocrit 25.2 % (37-47) L 12/23/23 04:38 Hgb O2 Saturation 94.6 % (95-100) L 12/23/23 04:38 Carboxyhemoglobin 1.6 %THgb (0.4-20.1) 12/23/23 04:38 Methemoglobin 1.0 % (0.4-1.5) 12/23/23 04:38 Total Hemoglobin 8.2 g/dL (12-16) L 12/23/23 04:38 Sodium 140.0 mmol/L (131-143) 12/23/23 04:38 Potassium 3.2 mmol/L (3.5-5.0) L 12/23/23 04:38 Glucose 101.0 mg/dL (70-115) 12/23/23 04:38 Ionized Calcium 1.2 mmol/L (1.1-1.4) 12/23/23 04:38 O2 Delivery Device Vent 12/23/23 04:38 O2 Liters/Min 2.0 % 12/17/23 11:20 FiO2 30.0 % 12/23/23 04:38 Tidal Volume 0.45 12/23/23 04:38 PEEP 10.0 cmH20 12/23/23 04:38 Qa Lead ID [email or web address] 12/23/23 04:38 Sodium 138 mmol/L (136-145) 12/23/23 05:04 Potassium 3.4 mmol/L (3.5-5.1) L 12/23/23 05:04 Chloride 97 mmol/L (98-107) L 12/23/23 05:04 Carbon Dioxide 24 mmol/L (22-29) 12/23/23 05:04 Anion Gap 20.4 (5-19) H 12/23/23 05:04 BUN 39 mg/dL (8-23) H 12/23/23 05:04 Creatinine 2.8 mg/dL (0.5-0.9) H 12/23/23 05:04 GFR Calculation 16.9 mL/min (90-130) L 12/23/23 05:04 Glucose 103 mg/dL (65-115) 12/23/23 05:04 POC Glucose 109 mg/dL (70-110) 12/23/23 16:48 Calculated Osmolality 296 mOsm/kg (285-295) H 12/23/23 05:04 Calcium 9.2 mg/dL (8.5-10.5) 12/23/23 05:04 Magnesium 2.8 mg/dL (1.7-2.3) H 12/17/23 03:05 Total Bilirubin 0.3 mg/dL (0.15-1.2) 12/23/23 05:04 AST 32 U/L (0-32) 12/23/23 05:04 ALT 13 U/L (0-33) 12/23/23 05:04 Alkaline Phosphatase 69 U/L (35-105) 12/23/23 05:04 Creatine Kinase 38 U/L (26-192) 12/19/23 04:09 Troponin T Baseline 73 ng/L (0-10) H 12/12/23 14:58 Troponin T 120 Minute 70.53 ng/L (0-10) H 12/12/23 16:53 Delta Troponin T -2.47 ABS# (0-10) L 12/12/23 16:53 Troponin T Hi Sens 6Hr 70.55 ng/L (0-10) H 12/12/23 20:29 Troponin T Hi Sens 6Hr Delta -2.45 ng/L (0-12) L 12/12/23 20:29 NT-Pro-B Natriuret Pep 9694 pg/mL (0-125) H 12/12/23 14:58 Total Protein 6.1 g/dL (6.6-8.7) L 12/23/23 05:04 Albumin 3.6 g/dL (3.5-5.2) 12/23/23 05:04 Globulin 2.5 g/dL (1.3-4.6) 12/23/23 05:04 Urine Color Yellow (Yellow) 12/17/23 12:30 Urine Appearance Clear (CLEAR) 12/17/23 12:30 Urine pH 5 (5-7) 12/17/23 12:30 Ur Specific [place] 1.010 (1.005-1.030) 12/17/23 12:30 Urine Protein Trace (Negative) 12/17/23 12:30 Urine Glucose (UA) Norm (Normal) 12/17/23 12:30 Urine Ketones Negative (Negative) 12/17/23 12:30 Urine Blood 3+ (Negative) H 12/17/23 12:30 Urine Nitrate Negative (Negative) 12/17/23 12:30 Urine Bilirubin Neg (Negative) 12/17/23 12:30 Urine Urobilinogen Norm mg/dL (Negative) 12/17/23 12:30 Ur Leukocyte Esterase Negative (Negative) 12/17/23 12:30 Urine RBC 25-40 /hpf (0-2) H 12/17/23 12:30 Urine WBC 5-10 /hpf (0-5) H 12/17/23 12:30 Ur Squamous Epith Cells 0-4 /hpf (0-5) H 12/17/23 12:30 Amorphous Sediment Not Reportable 12/17/23 12:30 Urine Bacteria 2+ /hpf (NONE) H 12/17/23 12:30 Hyaline Casts 0-4 /lpf H 12/17/23 12:30 Ur Random Sodium 57 mmol/L 12/17/23 12:30 Ur Random Potassium 60 mmol/L 12/17/23 12:30 Ur Random Chloride 96 mmol/L 12/17/23 12:30 Urine Creatinine 47 mg/dL (28-217) 12/17/23 12:30 Hep Bs Antigen Non-reactive (Nonreactive) 12/20/23 06:04 Hep Bs Antibody 5.5 (11.5-1000) L 12/20/23 06:04 Hep B Core Total Ab Non-reactive (Nonreactive) 12/20/23 06:04 Blood Type B Positive 12/15/23 07:46 Rho(D) Type Rh positive 12/15/23 07:46 Antibody Screen Negative 12/15/23 07:46 Crossmatch See Detail 12/15/23 07:46 Micro: Microbiology 12/20/23 11:00 Gram Stain - Final Sputum - Endotracheal Tube Aspirate Sputum Culture - Final A&P Assessment and plan (1) LIZ (obstructive sleep apnea): (2) Acute on chronic diastolic (congestive) heart failure: (3) Acute kidney injury superimposed on chronic kidney disease: (4) Difficult ventilator weaning: (5) UTI due to Klebsiella species: Plan # Acute respiratory failure secondary to fluid overload due to acute on chronic diastolic heart failure/acute on chronic kidney disease -She is currently started on hemodialysis-removed 6 L so far -For respiratory support-she is on mechanical ventilator-400/8/40% FiO2-currently sedated with fentanyl and propofol -Patient follows opens eyes and follows commands and unable to tolerate breathing trial -Worsening infiltrates on chest x-ray -Recommended to continue diuresis; will increase PEEP to prevent atelectasis given her morbid obesity -Patient is currently on meropenem for Klebsiella pneumonia in urine cultures-yesterday Zyvox was added for broader coverage given worsening infiltrates-this could all be secondary to fluid and atelectasis-endotracheal aspirate cultures pending -Hemodynamically stable with no pressor requirements -Will continue to do SAT and SBT # [id number] on dialysis # Sugars [id number] insulin glargine and scale coverage ICU CHECKLIST: Problem list updated Verbal orders reviewed and signed Code Status: Full Disposition: ICU Critically ill: Yes MD discussed with: hospitalist, RN, RT Analgesia: Yes Glycemic Control: Insulin Nutrition: NG feeding Restraint Renewal (within 24 hrs): Yes Ulcer Prophylaxis: PPI Chemical Thromboprophylaxis: Prophylaxis: Heparin Mechanical Thromboprophylaxis: SCDs Need for Central line: No Need for Juárez catheter: Yes Attestations Medical Necessity Statement*: Still intubated and requires mechanical ventilation Time Spent in Patient Care: Greater than 35 minutes (>than 50% of time spent in counselling and/or direct pt care on unit). Critical Care Time: This patient has a high probability of clinically significant, sudden or life threatening deterioration of the patient's (cardiac, pulmonary, renal, neurological) systems required my full, direct attention, the highest level of physician preparedness for urgent intervention and personal management. I managed/supervised life or organ supporting interventions that required frequent physician assessment. I devoted my full attention in the ICU to the direct care of this patient for the period of time indicated above. Time I spent with family or surrogate(s) is included only if the patient was incapable of providing necessary information or participating in decision making. This time includes the following services provided: Telemetry review Mechanical Ventilation Hemodynamic interpretation, assessment and management Review and interpretation of CXR Review and interpretation of lab values Review and interpretation of microbiologic data and culture results Review of medications and administration Review and interpretation of Nutrition requirements and management Discussion of management with other consultants and services Clinical update to family members [x] Data and vital sign review and interpretation [x] Patient assessment, examination and intervention [x] Documentation [x] Medication orders and management Coding Level of Care Code Acute Code for Chg Fwd Diagnoses LIZ (obstructive sleep apnea) G47.33 Acute on chronic diastolic (congestive) heart failure I50.33 Acute kidney injury superimposed on chronic kidney disease N17.9; N18.9 Difficult ventilator weaning Z99.11 UTI due to Klebsiella species N39.0; B96.89 Time Spent (min) 55
--- NOTE | 2023-12-23 17:35 | P.PN_ITS ---
Subjective 2 Subjective: Patient is intubated Vitals/I&O/Wt Last Vital Signs Temp 98.7 F 12/23/23 16:00 Pulse 76 12/23/23 16:00 Resp 16 12/23/23 16:00 BP 128/47 12/23/23 16:00 Pulse Ox 96 12/23/23 16:00 O2 Del Method Mechanical Ventilation 12/23/23 16:00 O2 Flow Rate 2 12/19/23 14:00 FiO2 35 12/23/23 16:00 12/23/23 12/23/23 12/23/23 06:59 14:59 22:59 Intake Total 223.646 / 1443.563 522.331 / 522.331 700 / 1222.331 Output Total 125 / 3925 75 / 75 3700 / 3775 Balance 98.646 / -2481.437 447.331 / 447.331 -3000 / -2552.669 Weight last 48 hrs Weight 346 lb 2.012 oz Weight 349 lb 12.8 oz Weight 353 lb 13.471 oz Weight 364 lb Physical Exam 2 Narrative: GENERAL: Patient is intubated NECK: No jugular vein distension. [] HEENT: No cyanosis. No icterus. No pallor. [] HEART: Regular S1 and S2. No murmur, rub or gallop. [] LUNGS: Diminished air entry CENTRAL NERVOUS SYSTEM: Grossly nonfocal. [] EXTREMITIES: Lower extremities with 1+ edema bilaterally Urinary Catheter Management: Latex Free: Cath Placed During This Visit: yes Reason for Continuing Indwelling Catheter: Accurate Measurement of Urinary Output in Critically Ill Patients Urinary Catheter Date of Insertion: 12/12/23 Urinary Catheter Time of Insertion: 15:39 Data 12/25/23 04:34 12/25/23 04:34 Micro: Microbiology 12/20/23 11:00 Gram Stain - Final Sputum - Endotracheal Tube Aspirate Sputum Culture - Final A&P Assessment and plan (1) Acute on chronic diastolic (congestive) heart failure: (2) Generalized edema: (3) Acute kidney injury superimposed on chronic kidney disease: (4) Chronic obstructive pulmonary disease, unspecified: Qualifiers: COPD type: unspecified COPD Qualified Code(s): J44.9 - Chronic obstructive pulmonary disease, unspecified (5) Type 2 diabetes mellitus with diabetic chronic kidney disease: Qualifiers: Diabetes mellitus termite control representative insulin use: with penitentiary use Chronic kidney disease stage: stage 4 (severe) Qualified Code(s): E11.22 - Type 2 diabetes mellitus with diabetic chronic kidney disease; N18.4 - Chronic kidney disease, stage 4 (severe); Z79.4 - care home (current) use of insulin (6) Benign hypertension: (7) Anemia: Qualifiers: Anemia type: iron deficiency Iron deficiency anemia type: inadequate dietary iron intake Qualified Code(s): D50.8 - Other iron deficiency anemias Plan Continue dialysis per nephrology recommendation. Possible pneumonia. Antibiotics per primary team Thank you for involving us with care of this patient. We will continue to follow. Please call with questions. Attestations 2 Medical Necessity Statement*: Care expected to cross 2 midnights. Coding Level of Care Code Acute Code for [facility] Fwd Diagnoses Acute on chronic diastolic (congestive) heart failure I50.33 Generalized edema R60.1 Acute kidney injury superimposed on chronic kidney disease N17.9; N18.9 Chronic obstructive pulmonary disease, unspecified COPD type J44.9 COPD type: unspecified COPD Type 2 diabetes mellitus with stage 4 chronic kidney disease, with long-term current use of insulin E11.22; N18.4; Z79.4 Diabetes mellitus termite control representative insulin use: with penitentiary use Chronic kidney disease stage: stage 4 (severe) Benign hypertension I10 Iron deficiency anemia secondary to inadequate dietary iron intake D50.8 Anemia type: iron deficiency Iron deficiency anemia type: inadequate dietary iron intake
[2023-12-23] MEDS: pantoprazole 40 mg SDV IVP (17:47)
--- NOTE | 2023-12-23 20:49 | PC.NURSE ---
At the beginning of this nurse's shift the fentanyl drip was going at 50 mcg/hr. MAR was updated to reflect that.
--- NOTE | 2023-12-23 21:32 | P.PN_ITS ---
Subjective 2 Subjective: We can trial. She is gradually waking up. Discussed with her regarding respiratory failure, worsening chest x-ray, suspicion for pneumonia with worsening, copious secretions, congestive heart failure, continue dialysis, continue attempts to wean off mechanical ventilator support. Discussion with pulmonology. Vitals/I&O/Wt Last Vital Signs Temp 97.8 F 12/23/23 20:00 Pulse 74 12/23/23 20:17 Resp 16 12/23/23 20:17 BP 143/60 12/23/23 20:00 Pulse Ox 98 12/23/23 20:17 O2 Del Method Mechanical Ventilation 12/23/23 20:17 O2 Flow Rate 2 12/19/23 14:00 FiO2 30 12/23/23 20:17 12/23/23 12/23/23 12/23/23 06:59 14:59 22:59 Intake Total 223.646 / 1443.563 522.331 / 522.331 818.75 / 1341.081 Output Total 125 / 3925 75 / 75 3700 / 3775 Balance 98.646 / -2481.437 447.331 / 447.331 -2881.25 / -2433.919 Weight last 48 hrs Weight 157 kg Weight 158.667 kg Weight 160.5 kg Weight 165.108 kg Physical Exam 2 Const: GENERAL APPEARANCE: cooperative and patient mechanically ventilated OTHER: Waking up. HENMT: COMMON NORMALS: oropharynx normal Neck/C-Spine: COMMON NORMALS: no JVD Resp: COMMON NORMALS: normal respiratory effort and clear to auscultation bilaterally AUSCULTATION: clear to auscultation bilaterally Cardio: COMMON NORMALS: no JVD, regular rhythm, S1 normal heart sound present, S2 normal heart sound present and No murmurs present (Cardio) RHYTHM: regular rhythm HEART SOUNDS: S1 normal heart sound present and S2 normal heart sound present GI: COMMON NORMALS: Normal to inspection, nondistended, normoactive bowel sounds present, Soft to palpation and non-tender PALPATION: Yes Soft to palpation Extremity: COMMON NORMALS: no joint enlargement OTHER: Anasarca continue to improve. both lower extremities and upper extremities. Right upper extremity worse swelling. Swelling/puffiness of both hands. Hands are warm, perfused. Neuro: COMMON NORMALS: moves all extremities Urinary Catheter Management: Latex Free: Cath Placed During This Visit: yes Reason for Continuing Indwelling Catheter: Accurate Measurement of Urinary Output in Critically Ill Patients Urinary Catheter Date of Insertion: 12/12/23 Urinary Catheter Time of Insertion: 15:39 Data 12/23/23 05:04 12/23/23 05:04 A&P Assessment and plan (1) SOB (shortness of breath): Difficulty with extubation, persistent respiratory failure. Discussed with pulmonology. PEEP adjusted. Continue dialysis. Broaden antibiotic course with meropenem, linezolid. Continue pulmonary toilet. Pulmonology considering bronchoscopy.Reviewed pulmonology note. Sputum cultures reviewed, normal tamar. Follow-up. Reviewed MRSA PCR, Pending. Cont inhaled budesonide. After extubation continue oxygen support, BiPAP support as needed and with sleep for LIZ Hemodialysis. Most likely a combination of obstructive sleep apnea, diastolic heart failure, COPD and anxiety. Keep oxygen supplementation over 88 to 90%. Nebulization treatment. (2) ROSEMARIE (acute kidney injury): Acute renal failure, continue dialysis.Reviewed nephrology note. Discussed with case management social worker. Status post hemodialysis catheter placement. Started on dialysis today. Reviewed vitals, CBC, CMP. Reviewed nephrology note. Monitor urine output. Reassess chemistry, renal function. (3) Acute exacerbation of congestive heart failure: Reviewed vitals, CBC, ABG, CMP, reviewed nephrology note. In negative balance. Edema with some gradual improvement. Continue dialysis. Echocardiogram showed ejection fraction within normal limits right ventricular dilation bilateral atrial enlarged tricuspid regurgitation no pericardial. Most likely diastolic heart failure. Patient takes Bumex 2 mg twice daily at home. Overall around 1200 cc negative since admission. With very poor response to aggressive diuresis with worsening of renal functions. Continue with fluid restriction up to 1500 cc. Strict input charting, daily weights. Juárez catheterization. Not sure about CHF being the only reason for patient's shortness of breath. Continue with Xanax 0.5 every 8 hourly as needed for anxiety. Cannot give morphine as patient has morphine allergy with itching. Though has been able to tolerate hydromorphone. Continue with home dose of duloxetine. Continue to optimize hypertension. Medications held till NG tube placed. Continues on amlodipine, hydralazine. Qualifiers: Heart failure type: unspecified Qualified Code(s): I50.9 - Heart failure, unspecified (4) LIZ (obstructive sleep apnea): BiPAP nightly and when resting. Patient is due for a sleep study as an outpatient. Patient will benefit with BiPAP as an outpatient on discharge also. (5) Chronic obstructive pulmonary disease, unspecified: Nebulization treatment as above. Qualifiers: COPD type: unspecified COPD Qualified Code(s): J44.9 - Chronic obstructive pulmonary disease, unspecified (6) Anemia: Reviewed hemoglobin and platelets. Appears to be stable so far. Hemoglobin improved following transfusion of 1 unit packed red blood cells on December 15 Anemia likely related to chronic kidney disease, autoimmune disease. Continue with Protonix twice daily. Continue with oral iron supplementation. 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 Possibly myopathy with statin, held atorvastatin for now. Check CK, reviewed, normal. Possibly some contribution of UTI, starting antibiotic as per discussion with her daughter. UTI: Complicated UTI with MDRO Klebsiella resistant to all antibiotics except ceramics and and imipenem. Discussed with her daughter. Discussed consideration of treatment, risks, benefits, risks and setting of marked renal failure. Will adjust dose with meropenem, monitor for risk of seizure. Decrease dose to 500 mg in 24 hours. Anasarca: Arrangements for renal replacement therapy as above. Were swelling of right upper extremity compared to left: Assess venous duplex for any DVT. Constipation is multifactorial. senna 2 tablets twice daily, monitor for bowel movement. Hypertension: amlodipine 10 mg daily, hydralazine 50 mg 3 times daily, Imdur. Full code Heparin for DVT prophylaxis Attestations 2 Medical Necessity Statement*: Continue with for assessment management of respiratory failure, acute renal failure. Coding Level of Care Code Critical Care >/= 30 minutes Critical care time (in minutes): 35 The high probability of a clinically significant, sudden or life threatening deterioration, as referenced in this documentation, required my full and direct attention, intervention and personal management. The critical care time shown is in addition to time spent performing any reported separately billable procedures and includes the following: [x] Data and vital sign review and interpretation [x ] Patient assessment, examination and intervention [x] Medication orders and management [x] Patient/Family updates as able [x] Care Coordination and Documentation. Diagnoses SOB (shortness of breath) R06.02 ROSEMARIE (acute kidney injury) N17.9 Acute exacerbation of congestive heart failure I50.9 Heart failure type: unspecified LIZ (obstructive sleep apnea) G47.33 Chronic obstructive pulmonary disease, unspecified COPD type J44.9 COPD type: unspecified COPD Iron deficiency anemia secondary to inadequate dietary iron intake D50.8 Anemia type: iron deficiency Iron deficiency anemia type: inadequate dietary iron intake Type 2 diabetes mellitus with stage 4 chronic kidney disease, with long-term current use of insulin E11.22; N18.4; Z79.4 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: with jail use Chronic kidney disease stage: stage 4 (severe)
[2023-12-23 21:33] LABS: Glucose Point of Care 108 mg/dL (70-110)
[2023-12-23] MEDS: meropenem 500 MG in sodium chloride 0.9% (plus) 50 ML 100 MG IV (21:34)
[2023-12-23] MEDS: hyDRALAzine 50 mg Tablet 100 MG PO (21:34)
[2023-12-24] VITALS (37 sets, daily range): BP systolic 111–162; BP diastolic 44–63; PULSE 69–89; RESP 16–24; TEMP 36.1–37.3; O2SAT 95–100; BMI 52.2
[2023-12-24 04:24] LABS: Basophils # 0.1 10^3/uL (0.0-0.1); Basophils % 0.9 %; Eosinophils # 0.4 10^3/uL (0.0-0.8); Eosinophils % 5.6 %; Hematocrit 25.4 % (36-47); Lymphocytes # 0.6 10^3/uL (0.8-4.8); Lymphocytes % 7.8 %; Mean Corpuscular HGB Conc 31.9 g/dL (30-55); Mean Corpuscular Hemoglobin 28.8 pg (27-33); Mean Corpuscular Volume 90.4 fl (85-98); Mean Platelet Volume 10.6 fL (7.4-10.4); Monocytes # 0.9 10^3/uL (0.2-0.9); Monocytes % 11.1 %; Neutrophils # 5.78 10^3/uL (1.8-7.7); Neutrophils % 73.1 %; Nucleated Red Blood Cells % 0 %; Platelet Count 152 10^3/cmm (157-399); Red Blood Count 2.81 10^6/uL (3.85-5.65); Red Cell Distribution Width 15.9 % (12.1-15.1); White Blood Count 7.91 10^3/uL (3.29-11.43)
[2023-12-24 04:28] LABS: ABG PCO2 42.5 mmHg (35-45); Alveolar-Arterial Oxygen Gradi 12.2 mmHg (5-10); Arterial Blood Gas Hematocrit 26.1 % (37-47); Base Excess ABG 1.2 mmol/L (-2.0-2.0); Blood Gas Allen Test Pos; Blood Gas Sample Site Radial, right; Blood Gas Sample Type Arterial; Blood Gas Tidal Volume 0.41; Carboxyhemoglobin 1.5 %THgb (0.4-20.1); HCO3 ABG 26.2 mmol/L (22-26); HGB O2 Sat 93.2 % (95-100); Ionized Calcium Level - ABG 1.2 mmol/L (1.1-1.4); Methemoglobin 0.8 % (0.4-1.5); Oxygen Device VENT; Oxygen Saturation ABG 95.4; PO2 ABG 66.2 mmHg (80.0-100.0); PO2 FiO2 Ratio Arterial Blood 0; Potassium Level - ABG 3.3 mmol/L (3.5-5.0); Total Hemoglobin 8.5 g/dL (12-16)
[2023-12-24 04:40] LABS: Alanine Aminotransferase 14 U/L (0-33); Albumin Level 3.6 g/dL (3.5-5.2); Alkaline Phosphatase 71 U/L (35-105); Anion Gap 17.7 (5-19); Aspartate Amino Transferase 31 U/L (0-32); Blood Urea Nitrogen 42 mg/dL (8-23); Carbon Dioxide 25 mmol/L (22-29); Chloride 99 mmol/L (98-107); Globulin 2.5 g/dL (1.3-4.6); Glomerular Filtration Rate 14.5 mL/min (90-130); Glucose 99 mg/dL (65-115); Osmolality Calculated 297 mOsm/kg (285-295); Potassium 3.7 mmol/L (3.5-5.1); Sodium 138 mmol/L (136-145); Total Bilirubin 0.3 mg/dL (0.15-1.2); Total Protein 6.1 g/dL (6.6-8.7)
[2023-12-24] MEDS: propofol 1,000 MG/100 ML INJ 19.8 MG IV ×4 (04:46→21:44)
[2023-12-24] MEDS: linezolid premix 600 MG/300 ML PREMIX 300 MG IV ×2 (05:55→16:44)
[2023-12-24] MEDS: pantoprazole 40 mg SDV IVP ×2 (05:55→17:54)
--- NOTE | 2023-12-24 06:00 | XRR_ITS ---
PROCEDURE INFORMATION: Exam: XR Chest Exam date and time: 12/24/2023 4:56 AM Age: 68 years old Clinical indication: Patient HX: F/u for resp failure. Intubated. ; Additional info: Lung function TECHNIQUE: Imaging protocol: Radiologic exam of the chest. Views: 1 view. COMPARISON: CR XR chest 1V portable [id number] 12/23/2023 8:32 AM FINDINGS: Tubes, catheters and devices: Endotracheal tube projects approximately 3.0 cm from the stephani. Double lumen peripherally inserted catheter with tips at the distal superior vena cava and superior right atrium , grossly stable. Enteric tube courses midline, catheter tip not in [id number]. Lungs: Stable diffuse hazy opacification of the right lung field. Pleural spaces: Stable bilateral costophrenic angle blunting. Heart/Mediastinum: Stable appearance of the cardiomediastinal silhouette. Bones/joints: Unremarkable. XR/XR chest 1V portable [id number] IMPRESSION: Grossly stable examination from 12/23/2023, with findings above.
[2023-12-24 07:21] LABS: Glucose Point of Care 118 mg/dL (70-110)
[2023-12-24] MEDS: ipratropium-albuterol 3 mL Neb INHALATION ×3 (07:56→20:14)
[2023-12-24] MEDS: budesonide 0.5 mg/2 mL Neb INHALATION ×2 (07:56→20:14)
[2023-12-24] MEDS: ferrous sulfate EC 325 mg Tablet PO (08:24)
[2023-12-24] MEDS: hyDRALAzine 50 mg Tablet 100 MG PO ×3 (08:24→21:25)
[2023-12-24] MEDS: sennosides-docusate Tablet 2 TAB PO ×2 (08:24→17:54)
[2023-12-24] MEDS: heparin 5,000 unit/mL INJ 1 mL 5000 UNIT SUBCUT ×2 (08:25→21:25)
[2023-12-24] MEDS: fluoxetine 20 mg Capsule PO (08:25)
[2023-12-24] MEDS: gabapentin 100 mg Capsule PO ×2 (08:25→17:53)
[2023-12-24] MEDS: nystatin powder 30 gm Btl 1 APPLIC TOPICAL ×2 (08:41→17:54)
[2023-12-24] MEDS: heparin, porcine 1,000 unit/mL INJ 10 mL 1000 UNIT IV (09:21)
--- NOTE | 2023-12-24 09:24 | PC.HD ---
Upon HD catheter assessment, this RN was unable to draw from arterial port, although it flushed well. Therefore, treatment lines were attached in reverse configuration and was initiated without difficulty.
[2023-12-24] MEDS: epoetin alfa 1000 Unit/0.05 mL (ESRD) 20000 UNIT IVP (12:06)
[2023-12-24] MEDS: heparin, porcine 1,000 unit/mL INJ 10 mL 10000 UNIT INTRACATH (12:07)
[2023-12-24 12:59] LABS: Glucose Point of Care 95 mg/dL (70-110)
--- NOTE | 2023-12-24 13:32 | PC.HD ---
At conclusion of HD treatment, heparin 2400 units and 2500 units were instilled into HD catheter arterial and venous ports, respectively.
--- NOTE | 2023-12-24 13:50 | PC.NURSE ---
son here sedation off for period talk to her and daughter called per face time while she was awaken,,, orieted to person and place nod head to questions ect
--- NOTE | 2023-12-24 14:18 | P.PN_ITS ---
Subjective 2 Subjective: remains on vent Medications: Reviewed: Yes Vitals/I&O/Wt Last Vital Signs Temp 97.7 F 12/24/23 13:31 Pulse 88 12/24/23 13:35 Resp 24 H 12/24/23 13:35 BP 124/51 12/24/23 13:31 Pulse Ox 99 12/24/23 13:35 O2 Del Method Mechanical Ventilation 12/24/23 13:25 O2 Flow Rate 2 12/19/23 14:00 FiO2 30 12/24/23 13:35 12/23/23 12/24/23 12/24/23 22:59 06:59 14:59 Intake Total 1118.75 / 1641.081 196.35 / 1837.431 750 / 750 Output Total 3750 / 3825 50 / 3875 3300 / 3300 Balance -2631.25 / -2183.919 146.35 / -2037.569 -2550 / -2550 Weight last 48 hrs Weight 130.9 kg Weight 133.923 kg Weight 157 kg Weight 158.667 kg Physical Exam 2 Narrative: on vent Urinary Catheter Management: Latex Free: Cath Placed During This Visit: yes Reason for Continuing Indwelling Catheter: Accurate Measurement of Urinary Output in Critically Ill Patients Urinary Catheter Date of Insertion: 12/12/23 Urinary Catheter Time of Insertion: 15:39 Data 12/24/23 03:57 12/24/23 03:57 A&P Assessment and plan (1) Acute kidney injury superimposed on chronic kidney disease: Plan 1. Acute on chronic kidney disease stage III: Patient's baseline creatinine of 1.5-1.9, has multiple ROSEMARIE's in the past. -was on Lasix drip with IV albumin every 8 hours, + metolazone 2.5 mg bid daily-->switched to bumex , with inadequate diuresis . - S/P tunnelled catheter placement and HD done yesterday , plan for ultrafiltration today -2 g sodium restriction and 1500 mL fluid restriction 2. Anemia: s/p transfusion ,will add BOUCHRA 3. Diastolic CHF, diuresis as above, echo 4. Acute on chronic respiratory failure, multifactorial, Intubated , patient has history of COPD, LIZ and CHF 5. History of diabetes Patient evaluated using audiovisual cart. Time spent 20 minutes. Attestations 2 Medical Necessity Statement*: per mediicne Coding Level of Care Code Acute Code for Chg Fwd Diagnoses Acute kidney injury superimposed on chronic kidney disease N17.9; N18.9
[2023-12-24 14:54] LABS: Methicillin-Resist S.aureu PCR NOT DETECTED (NOT DETECTED)
[2023-12-24] MEDS: fentaNYL 1,000 MCG/100 ML BAG 5 MCG IV (16:44)
[2023-12-24 17:49] LABS: Glucose Point of Care 113 mg/dL (70-110)
[2023-12-24 20:39] LABS: Glucose Point of Care 112 mg/dL (70-110)
[2023-12-24] MEDS: meropenem 500 MG in sodium chloride 0.9% (plus) 50 ML 100 MG IV (21:25)
--- NOTE | 2023-12-24 21:45 | PC.NURSE ---
At the beginning of this nurse's shift the propofol drip was going at 30 mch/hr. Mar was updated to reflect this.
--- NOTE | 2023-12-24 23:49 | PM.PN ---
Subjective Subjective: Intubated, sedated, mechanically ventilated. Does not appear in discomfort. Vitals/I&O/Wt Last Vital Signs Temp 99.1 F 12/24/23 20:00 Pulse 76 12/24/23 22:00 Resp 16 12/24/23 20:15 BP 114/46 12/24/23 20:00 Pulse Ox 99 12/24/23 20:15 O2 Del Method Mechanical Ventilation 12/24/23 20:14 O2 Flow Rate 2 12/19/23 14:00 FiO2 30 12/24/23 20:15 12/24/23 12/24/23 12/25/23 14:59 22:59 06:59 Intake Total 850 / 850 508.994 / 1358.994 Output Total 3300 / 3300 50 / 3350 Balance -2450 / -2450 458.994 / -1991.006 Weight last 48 hrs Weight 130.9 kg Weight 133.923 kg Weight 157 kg Weight 158.667 kg Physical Exam Const: GENERAL APPEARANCE: cooperative and patient mechanically ventilated HENMT: COMMON NORMALS: oropharynx normal Neck/C-Spine: COMMON NORMALS: no JVD Resp: COMMON NORMALS: normal respiratory effort and clear to auscultation bilaterally AUSCULTATION: clear to auscultation bilaterally Cardio: COMMON NORMALS: no JVD, regular rhythm, S1 normal heart sound present, S2 normal heart sound present and No murmurs present (Cardio) RHYTHM: regular rhythm HEART SOUNDS: S1 normal heart sound present and S2 normal heart sound present GI: COMMON NORMALS: Normal to inspection, nondistended, normoactive bowel sounds present, Soft to palpation and non-tender PALPATION: Yes Soft to palpation Extremity: COMMON NORMALS: no joint enlargement OTHER: Anasarca continue to improve. both lower extremities and upper extremities. Right upper extremity worse swelling. Swelling/puffiness of both hands. Hands are warm, perfused. Neuro: COMMON NORMALS: moves all extremities Urinary Catheter Management: Latex Free: Cath Placed During This Visit: yes Reason for Continuing Indwelling Catheter: Accurate Measurement of Urinary Output in Critically Ill Patients Urinary Catheter Date of Insertion: 12/12/23 Urinary Catheter Time of Insertion: 15:39 Data 12/24/23 03:57 12/24/23 03:57 A&P Assessment and plan (1) SOB (shortness of breath): Persistent respiratory failure, difficulty weaning of mechanical ventilatory support. Reviewed pulmonology documentation, recommendations. Reassessed again today. Continue hemodialysis. Continue treatment for suspicion of possible HAP/VAP. Continue broad-spectrum coverage with meropenem, linezolid. Not ready for extubation. Did wake up well. Repeat weaning trial tomorrow. Reviewed vitals, CBC, ABG, CMP, ventilator settings. Reviewed MRSA PCR, negative.If showing improvement, consider discontinuation of linezolid. Renew fentanyl. Difficulty with extubation, persistent respiratory failure. Discussed with pulmonology. PEEP adjusted. Continue dialysis. Broaden antibiotic course with meropenem, linezolid. Continue pulmonary toilet. Pulmonology considering bronchoscopy.Reviewed pulmonology note. Sputum cultures reviewed, normal tamar. Follow-up. Cont inhaled budesonide. After extubation continue oxygen support, BiPAP support as needed and with sleep for LIZ Hemodialysis. Most likely a combination of obstructive sleep apnea, diastolic heart failure, COPD and anxiety. Keep oxygen supplementation over 88 to 90%. Nebulization treatment. (2) ROSEMARIE (acute kidney injury): Continue hemodialysis. Reviewed nephrology note. Acute renal failure, continue dialysis. Temporary hemodialysis catheter in place. Monitor urine output. Reassess chemistry, renal function. (3) Acute exacerbation of congestive heart failure: Continue dialysis. Reviewed electrolytes. Echocardiogram showed ejection fraction within normal limits right ventricular dilation bilateral atrial enlarged tricuspid regurgitation no pericardial. Most likely diastolic heart failure. Patient takes Bumex 2 mg twice daily at home. Overall around 1200 cc negative since admission. With very poor response to aggressive diuresis with worsening of renal functions. Continue with fluid restriction up to 1500 cc. Strict input charting, daily weights. Juárez catheterization. Not sure about CHF being the only reason for patient's shortness of breath. Continue with Xanax 0.5 every 8 hourly as needed for anxiety. Cannot give morphine as patient has morphine allergy with itching. Though has been able to tolerate hydromorphone. Continue with home dose of duloxetine. Continue to optimize hypertension. Medications held till NG tube placed. Continues on amlodipine, hydralazine. Qualifiers: Heart failure type: unspecified Qualified Code(s): I50.9 - Heart failure, unspecified (4) LIZ (obstructive sleep apnea): After extubation BiPAP nightly and when resting. Patient is due for a sleep study as an outpatient. Patient will benefit with BiPAP as an outpatient on discharge also. (5) Chronic obstructive pulmonary disease, unspecified: Nebulization treatment as above. Qualifiers: COPD type: unspecified COPD Qualified Code(s): J44.9 - Chronic obstructive pulmonary disease, unspecified (6) Anemia: Reviewed hemoglobin and platelets. Appears to be stable so far. Hemoglobin improved following transfusion of 1 unit packed red blood cells on December 15 Anemia likely related to chronic kidney disease, autoimmune disease. Continue with Protonix twice daily. Continue with oral iron supplementation. 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 Possibly myopathy with statin, held atorvastatin for now. Check CK, reviewed, normal. Possibly some contribution of UTI, starting antibiotic as per discussion with her daughter. UTI: Complicated UTI with MDRO Klebsiella resistant to all antibiotics except ceramics and and imipenem. Discussed with her daughter. Discussed consideration of treatment, risks, benefits, risks and setting of marked renal failure. Will adjust dose with meropenem, monitor for risk of seizure. Decrease dose to 500 mg in 24 hours. Anasarca: Arrangements for renal replacement therapy as above. Were swelling of right upper extremity compared to left: Assess venous duplex for any DVT. Constipation is multifactorial. senna 2 tablets twice daily, monitor for bowel movement. Hypertension: amlodipine 10 mg daily, hydralazine 50 mg 3 times daily, Imdur. Full code Heparin for DVT prophylaxis Attestations Medical Necessity Statement*: Continue with for assessment management of respiratory failure, acute renal failure. Coding Level of Care Code Critical Care >/= 30 minutes Critical care time (in minutes): 35 The high probability of a clinically significant, sudden or life threatening deterioration, as referenced in this documentation, required my full and direct attention, intervention and personal management. The critical care time shown is in addition to time spent performing any reported separately billable procedures and includes the following: [x] Data and vital sign review and interpretation [x] Patient assessment, examination and intervention [x] Medication orders and management [x] Patient/Family updates as able [x] Care Coordination and Documentation. 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
[2023-12-24] MEDS: propofol 1,000 MG/100 ML INJ 24.75 MG IV (23:59)
[2023-12-25] VITALS (51 sets, daily range): BP systolic 116–143; BP diastolic 40–54; PULSE 71–79; RESP 16–17; TEMP 36.2–37.2; O2SAT 97–99; BMI 59.7
[2023-12-25] MEDS: ipratropium-albuterol 3 mL Neb INHALATION ×4 (03:35→20:26)
[2023-12-25] MEDS: propofol 1,000 MG/100 ML INJ 24.75 MG IV ×2 (04:13→07:42)
[2023-12-25 04:58] LABS: Basophils # 0.1 10^3/uL (0.0-0.1); Basophils % 0.8 %; Eosinophils # 0.4 10^3/uL (0.0-0.8); Eosinophils % 5.3 %; Hematocrit 25.9 % (36-47); Lymphocytes # 0.6 10^3/uL (0.8-4.8); Lymphocytes % 7.2 %; Mean Corpuscular HGB Conc 31.7 g/dL (30-55); Mean Corpuscular Hemoglobin 28.6 pg (27-33); Mean Corpuscular Volume 90.2 fl (85-98); Mean Platelet Volume 10.3 fL (7.4-10.4); Monocytes # 1.1 10^3/uL (0.2-0.9); Monocytes % 12.8 %; Neutrophils # 6.06 10^3/uL (1.8-7.7); Neutrophils % 72.3 %; Nucleated Red Blood Cells % 0 %; Platelet Count 168 10^3/cmm (157-399); Red Blood Count 2.87 10^6/uL (3.85-5.65); White Blood Count 8.37 10^3/uL (3.29-11.43)
[2023-12-25] MEDS: linezolid premix 600 MG/300 ML PREMIX 300 MG IV ×2 (05:16→18:01)
[2023-12-25] MEDS: pantoprazole 40 mg SDV IVP ×2 (05:16→18:02)
[2023-12-25 05:17] LABS: Anion Gap 17.6 (5-19); Blood Urea Nitrogen 29 mg/dL (8-23); Carbon Dioxide 25 mmol/L (22-29); Chloride 99 mmol/L (98-107); Glomerular Filtration Rate 16.9 mL/min (90-130); Glucose 108 mg/dL (65-115); Osmolality Calculated 292 mOsm/kg (285-295); Potassium 3.6 mmol/L (3.5-5.1); Sodium 138 mmol/L (136-145)
--- NOTE | 2023-12-25 06:33 | XRR_ITS ---
PROCEDURE INFORMATION: Exam: XR Chest Exam date and time: 12/25/2023 8:02 AM Age: 68 years old Clinical indication: Other: Fluid overload; Patient HX: On vent TECHNIQUE: Imaging protocol: Radiologic exam of the chest. Views: 1 view. COMPARISON: CR (CHEST, ) 12/24/2023 4:56 AM FINDINGS: Tubes, catheters and devices: Right-sided dialysis catheter, endotracheal tube, nasogastric tube are unchanged. Nasogastric tube distal end is not completely imaged. Lungs: Low lung volume. Diffuse edema in right lung show minimal improvement. No significant edema in left upper or mid lungs. Pleural spaces: Small pleural effusion suspected. No pneumothorax. Heart/Mediastinum: Stable enlarged cardiopericardial silhouette. Bones/joints: Unremarkable. XR/XR chest 1V portable [id number] IMPRESSION: Minimal improvement of pulmonary edema. Lines and tubes unchanged.
[2023-12-25 07:56] LABS: Glucose Point of Care 116 mg/dL (70-110)
[2023-12-25] MEDS: budesonide 0.5 mg/2 mL Neb INHALATION ×2 (08:49→20:26)
[2023-12-25] MEDS: hyDRALAzine 50 mg Tablet 100 MG PO ×2 (08:56→21:00)
[2023-12-25] MEDS: sennosides-docusate Tablet 2 TAB PO ×2 (08:56→18:01)
[2023-12-25] MEDS: heparin 5,000 unit/mL INJ 1 mL 5000 UNIT SUBCUT ×2 (08:57→21:01)
[2023-12-25] MEDS: ferrous sulfate EC 325 mg Tablet PO (08:57)
[2023-12-25] MEDS: fluoxetine 20 mg Capsule PO (08:57)
[2023-12-25] MEDS: nystatin powder 30 gm Btl 1 APPLIC TOPICAL ×2 (08:57→18:03)
[2023-12-25] MEDS: gabapentin 100 mg Capsule PO ×2 (08:57→18:01)
--- NOTE | 2023-12-25 08:59 | P.PN_ITS ---
Subjective 2 Subjective: Intubated, sedated, mechanically ventilated. Yesterday she tolerated MMV with PEEP 12; currently on minimal vent settings Opening eyes and following commands on minimal sedation Still appears to be clinically volume overloaded; chest x-ray showed minimal improvement of right side pulmonary edema; she will need to be on BiPAP postextubation however is still at high risk for reintubation given her fluid overload. So far received 5 sessions of hemodialysis and removed about 15 L; she is net - 11 L since admission I would recommend to continue diuresis for at least couple more sessions and once patient is more dry-we can take a chance with extubation. Medications: Reviewed: Yes Medication Review Details: Current Medications Albuterol/Ipratropium (Ipratropium-Albuterol 3 Ml Neb) 3 ml INHALATION Q6H.RESP HERMINIO Last Admin: 12/19/23 15:54 Dose: 3 ml Alprazolam (Alprazolam 0.5 Mg Tablet) 0.5 mg PO TID PRN PRN Reason: ANXIETY Last Admin: 12/17/23 16:39 Dose: 0.5 mg Amlodipine Besylate (Amlodipine 10 Mg Tablet) 10 mg PO DAILY HERMINIO Last Admin: 12/19/23 08:18 Dose: 10 mg Atorvastatin Calcium (Atorvastatin 40 Mg Tablet) 20 mg PO BEDTIME HERMINIO Last Admin: 12/18/23 20:50 Dose: 20 mg Benzocaine (Cetylpyridinium Lozenge) 1 each MUCOUS MEM Q2H PRN PRN Reason: SORE THROAT Last Admin: 12/17/23 08:38 Dose: 1 each Budesonide (Budesonide 0.5 Mg/2 Ml Neb) 0.5 mg INHALATION BID.RESPIRATORY HERMINIO Last Admin: 12/19/23 07:38 Dose: 0.5 mg Chlorhexidine Gluconate (Chlorhexidine Gluconate 4% Btl 118 Ml) 1 applic TOPICAL BID HERMINIO Cyclobenzaprine HCl (Cyclobenzaprine 10 Mg Tablet) 10 mg PO TID PRN PRN Reason: MUSCLE SPASMS Last Admin: 12/17/23 08:38 Dose: 10 mg Dextrose (Dextrose 50% Syringe 50 Ml) 25 ml IVP ONCE PRN; Protocol PRN Reason: hypoglycemia protocol Dextrose (Dextrose 50% Syringe 50 Ml) 50 ml IVP PRN PRN; Protocol PRN Reason: hypoglycemia protocol Ferrous Sulfate (Ferrous Sulfate Ec 325 Mg Tablet) 325 mg PO DAILY [facility] Last Admin: 12/19/23 08:18 Dose: 325 mg Fluoxetine HCl (Fluoxetine 20 Mg Capsule) 20 mg PO DAILY [facility] Last Admin: 12/19/23 08:18 Dose: 20 mg Gabapentin (Gabapentin 100 Mg Capsule) 100 mg PO BID [facility] Last Admin: 12/19/23 08:18 Dose: 100 mg Hydralazine HCl (Hydralazine 50 Mg Tablet) 50 mg PO TID [facility] Last Admin: 12/19/23 14:18 Dose: 50 mg Hydromorphone HCl (Hydromorphone 1 Mg/Ml Inj 1 Ml) 0.5 mg IVP Q6H PRN PRN Reason: PAIN Last Admin: 12/19/23 16:15 Dose: 0.5 mg Dextrose (D5w) 500 mls @ 0 mls/hr IV ONCE PRN; Protocol PRN Reason: Adult Acute Hypoglycemia Prot Albumin Human (Albumin) 25 g in 100 mls @ 60 mls/hr IV Q8H [facility] Last Infusion: 12/19/23 16:14 Dose: Infused Insulin Glargine (Insulin Glargine 100 Units/1 Ml) 20 unit SUBCUT DAILY [facility] Last Admin: 12/19/23 08:18 Dose: 20 unit Insulin Human Lispro (Insulin Lispro 100 Unit/1 Ml) 0 unit SUBCUT WM&BEDTIME [facility]; Protocol Last Admin: 12/19/23 17:03 Dose: Not Given Isosorbide Mononitrate (Isosorbide Mononitrate Er 60 Mg Tablet) 60 mg PO BID [facility] Last Admin: 12/19/23 08:18 Dose: 60 mg Naloxone HCl (Naloxone 0.4 Mg/Ml Sdv) 0.4 mg IVP PRN PRN PRN Reason: RESPIRATORY RATE < 8/MIN Nystatin (Nystatin Powder 30 Gm Btl) 1 applic TOPICAL BID [facility] Last Admin: 12/19/23 09:19 Dose: Not Given Ondansetron HCl (Ondansetron 2 Mg/Ml Sdv 2 Ml) 4 mg IVP Q6H PRN PRN Reason: vomiting, or N/V if npo Oxycodone HCl (Oxycodone 5 Mg Ir Tab/Cap) 10 mg PO Q8H PRN PRN Reason: MODERATE PAIN Last Admin: 12/19/23 11:13 Dose: 10 mg Pantoprazole Sodium (Pantoprazole Dr 40 Mg Tablet) 40 mg PO BID [facility] Last Admin: 12/19/23 08:18 Dose: 40 mg Senna/Docusate Sodium (Sennosides-Docusate Tablet) 2 tab PO BID [facility] Last Admin: 12/19/23 08:18 Dose: 2 tab Trazodone HCl (Trazodone 100 Mg Tablet) 100 mg PO BEDTIME [facility] Last Admin: 12/18/23 20:50 Dose: 100 mg Vitals/I&O/Wt Last Vital Signs Temp 97.4 F L 12/25/23 08:00 Pulse 73 12/25/23 08:51 Resp 16 12/25/23 08:51 BP 126/47 12/25/23 08:00 Pulse Ox 98 12/25/23 08:51 O2 Del Method Mechanical Ventilation 12/25/23 08:51 O2 Flow Rate 2 12/19/23 14:00 FiO2 30 12/25/23 08:51 12/24/23 12/25/23 12/25/23 22:59 06:59 14:59 Intake Total 508.994 / 1358.994 516.33 / 1875.324 92.400 / 92.400 Output Total 75 / 3375 Balance 433.994 / -2016.006 516.33 / -1499.676 92.400 / 92.400 Weight last 48 hrs Weight 337 lb 4 oz Weight 288 lb 9.361 oz Weight 295 lb 4 oz Weight 346 lb 2.012 oz Physical Exam 2 Narrative: PHYSICAL EXAM: General: lying in bed, sedated and intubated. HEENT:NCAT, PERRLA, EOMI Neck: Supple Lungs: Bilateral diffuse crackles Heart: s1/s2, RRR Abd: soft, NT, ND, BS + Normoactive Extremities: 2+ pitting pedal edema DECORATOR HAND: sedated and limited DECORATOR HAND exam possible. SKIN: no rash LDA: # HD Cath : 12/19/2023 right IJ permacath Urinary Catheter Management: Latex Free: Cath Placed During This Visit: yes Reason for Continuing Indwelling Catheter: Accurate Measurement of Urinary Output in Critically Ill Patients Urinary Catheter Date of Insertion: 12/12/23 Urinary Catheter Time of Insertion: 15:39 Data 12/25/23 04:34 12/25/23 04:34 Other Labs: Radiology Impressions Venous Duplex 12/19/23 15:40 IMPRESSION: No evidence of deep vein thrombosis. Chest X-Ray 12/25/23 06:33 IMPRESSION: Minimal improvement of pulmonary edema. Lines and tubes unchanged. Laboratory Results WBC 8.37 10^3/uL (3.29-11.43) 12/25/23 04:34 RBC 2.87 10^6/uL (3.85-5.65) L 12/25/23 04:34 Hgb 8.20 g/dL (11.27-16.99) L 12/25/23 04:34 Hct 25.9 % (36-47) L 12/25/23 04:34 MCV 90.2 fl (85-98) 12/25/23 04:34 MCH 28.6 pg (27-33) 12/25/23 04:34 MCHC 31.7 g/dL (30-55) 12/25/23 04:34 RDW 16.0 % (12.1-15.1) H 12/25/23 04:34 Plt Count 168 10^3/cmm (157-399) 12/25/23 04:34 MPV 10.3 fL (7.4-10.4) 12/25/23 04:34 Neut % (Auto) 72.3 % 12/25/23 04:34 Lymph % (Auto) 7.2 % 12/25/23 04:34 [place] % (Auto) 12.8 % 12/25/23 04:34 Eos % (Auto) 5.3 % 12/25/23 04:34 Baso % (Auto) 0.8 % 12/25/23 04:34 Neut # (Auto) 6.06 10^3/uL (1.8-7.7) 12/25/23 04:34 Lymph # (Auto) 0.6 10^3/uL (0.8-4.8) L 12/25/23 04:34 [place] # (Auto) 1.1 10^3/uL (0.2-0.9) H 12/25/23 04:34 Eos # (Auto) 0.4 10^3/uL (0.0-0.8) 12/25/23 04:34 Baso # (Auto) 0.1 10^3/uL (0.0-0.1) 12/25/23 04:34 Nucleated RBC % (auto) 0 % 12/25/23 04:34 Nucleated RBCs # 0.0 /100WBC 12/25/23 04:34 PT 15.70 SECONDS (12.1-14.9) H 12/12/23 14:58 INR 1.21 (0.8-1.2) H 12/12/23 14:58 Specimen Type Arterial 12/24/23 04:25 Sample Site Radial, right 12/24/23 04:25 ABG pH 7.40 (7.35-7.45) 12/24/23 04:25 ABG pCO2 42.5 mmHg (35-45) 12/24/23 04:25 ABG pO2 66.2 mmHg (80.0-100.0) L 12/24/23 04:25 ABG PO2/FiO2 Ratio 0 12/24/23 04:25 ABG HCO3 26.2 mmol/L (22-26) H 12/24/23 04:25 ABG O2 Saturation 95.4 12/24/23 04:25 ABG Base Excess 1.2 mmol/L (-2.0-2.0) 12/24/23 04:25 Sharad Test Pos 12/24/23 04:25 A-a O2 Gradient 12.2 mmHg (5-10) H 12/24/23 04:25 Hematocrit 26.1 % (37-47) L 12/24/23 04:25 Hgb O2 Saturation 93.2 % (95-100) L 12/24/23 04:25 Carboxyhemoglobin 1.5 %THgb (0.4-20.1) 12/24/23 04:25 Methemoglobin 0.8 % (0.4-1.5) 12/24/23 04:25 Total Hemoglobin 8.5 g/dL (12-16) L 12/24/23 04:25 Sodium 139.0 mmol/L (131-143) 12/24/23 04:25 Potassium 3.3 mmol/L (3.5-5.0) L 12/24/23 04:25 Glucose 96.0 mg/dL (70-115) 12/24/23 04:25 Ionized Calcium 1.2 mmol/L (1.1-1.4) 12/24/23 04:25 O2 Delivery Device Vent 12/24/23 04:25 O2 Liters/Min 2.0 % 12/17/23 11:20 FiO2 30.0 % 12/24/23 04:25 Tidal Volume 0.41 12/24/23 04:25 PEEP 12.0 cmH20 12/24/23 04:25 Glass Blowing Instructor ID [email or web address] 12/24/23 04:25 Sodium 138 mmol/L (136-145) 12/25/23 04:34 Potassium 3.6 mmol/L (3.5-5.1) 12/25/23 04:34 Chloride 99 mmol/L (98-107) 12/25/23 04:34 Carbon Dioxide 25 mmol/L (22-29) 12/25/23 04:34 Anion Gap 17.6 (5-19) 12/25/23 04:34 BUN 29 mg/dL (8-23) H 12/25/23 04:34 Creatinine 2.8 mg/dL (0.5-0.9) H 12/25/23 04:34 GFR Calculation 16.9 mL/min (90-130) L 12/25/23 04:34 Glucose 108 mg/dL (65-115) 12/25/23 04:34 POC Glucose 116 mg/dL (70-110) H 12/25/23 07:48 Calculated Osmolality 292 mOsm/kg (285-295) 12/25/23 04:34 Calcium 9.0 mg/dL (8.5-10.5) 12/25/23 04:34 Magnesium 2.8 mg/dL (1.7-2.3) H 12/17/23 03:05 Total Bilirubin 0.3 mg/dL (0.15-1.2) 12/24/23 03:57 AST 31 U/L (0-32) 12/24/23 03:57 ALT 14 U/L (0-33) 12/24/23 03:57 Alkaline Phosphatase 71 U/L (35-105) 12/24/23 03:57 Creatine Kinase 38 U/L (26-192) 12/19/23 04:09 Troponin T Baseline 73 ng/L (0-10) H 12/12/23 14:58 Troponin T 120 Minute 70.53 ng/L (0-10) H 12/12/23 16:53 Delta Troponin T -2.47 ABS# (0-10) L 12/12/23 16:53 Troponin T Hi Sens 6Hr 70.55 ng/L (0-10) H 12/12/23 20:29 Troponin T Hi Sens 6Hr Delta -2.45 ng/L (0-12) L 12/12/23 20:29 NT-Pro-B Natriuret Pep 9694 pg/mL (0-125) H 12/12/23 14:58 Total Protein 6.1 g/dL (6.6-8.7) L 12/24/23 03:57 Albumin 3.6 g/dL (3.5-5.2) 12/24/23 03:57 Globulin 2.5 g/dL (1.3-4.6) 12/24/23 03:57 Urine Color Yellow (Yellow) 12/17/23 12:30 Urine Appearance Clear (CLEAR) 12/17/23 12:30 Urine pH 5 (5-7) 12/17/23 12:30 Ur Specific [place] 1.010 (1.005-1.030) 12/17/23 12:30 Urine Protein Trace (Negative) 12/17/23 12:30 Urine Glucose (UA) Norm (Normal) 12/17/23 12:30 Urine Ketones Negative (Negative) 12/17/23 12:30 Urine Blood 3+ (Negative) H 12/17/23 12:30 Urine Nitrate Negative (Negative) 12/17/23 12:30 Urine Bilirubin Neg (Negative) 12/17/23 12:30 Urine Urobilinogen Norm mg/dL (Negative) 12/17/23 12:30 Ur Leukocyte Esterase Negative (Negative) 12/17/23 12:30 Urine RBC 25-40 /hpf (0-2) H 12/17/23 12:30 Urine WBC 5-10 /hpf (0-5) H 12/17/23 12:30 Ur Squamous Epith Cells 0-4 /hpf (0-5) H 12/17/23 12:30 Amorphous Sediment Not Reportable 12/17/23 12:30 Urine Bacteria 2+ /hpf (NONE) H 12/17/23 12:30 Hyaline Casts 0-4 /lpf H 12/17/23 12:30 Ur Random Sodium 57 mmol/L 12/17/23 12:30 Ur Random Potassium 60 mmol/L 12/17/23 12:30 Ur Random Chloride 96 mmol/L 12/17/23 12:30 Urine Creatinine 47 mg/dL (28-217) 12/17/23 12:30 Hep Bs Antigen Non-reactive (Nonreactive) 12/20/23 06:04 Hep Bs Antibody 5.5 (11.5-1000) L 12/20/23 06:04 Hep B Core Total Ab Non-reactive (Nonreactive) 12/20/23 06:04 MRSA (PCR) Not detected (NOT DETECTED) 12/22/23 21:25 Blood Type B Positive 12/15/23 07:46 Rho(D) Type Rh positive 12/15/23 07:46 Antibody Screen Negative 12/15/23 07:46 Crossmatch See Detail 12/15/23 07:46 A&P Assessment and plan (1) LIZ (obstructive sleep apnea): (2) Acute on chronic diastolic (congestive) heart failure: (3) Acute kidney injury superimposed on chronic kidney disease: (4) Difficult ventilator weaning: (5) UTI due to Klebsiella species: Plan # Acute respiratory failure secondary to fluid overload due to acute on chronic diastolic heart failure/acute on chronic kidney disease -She is currently started on hemodialysis-total net -11 L so far -Following commands on minimal sedation -Infiltrates on chest x-ray are improving-still patient is clinically volume overloaded -Yesterday she tolerated MMV with PEEP 12; currently on minimal vent settings -She will need to be on BiPAP postextubation however is still at high risk for reintubation given her fluid overload. -I would recommend to continue diuresis for at least couple more sessions and once patient is more dry-we can take a chance with extubation. -Patient is currently on meropenem for Klebsiella pneumonia in urine cultures- Zyvox was added for broader coverage given worsening infiltrates-this could all be secondary to fluid and atelectasis-endotracheal aspirate cultures-negative -Hemodynamically stable with no pressor requirements -Will continue to do SAT and SBT # Yanlfweyexa-[id number]-cgidapp on dialysis # Sugars [id number] insulin glargine and scale coverage ICU CHECKLIST: Problem list updated Verbal orders reviewed and signed Code Status: Full Disposition: ICU Critically ill: Yes MD discussed with: hospitalist, RN, RT Analgesia: Yes Glycemic Control: Insulin Nutrition: NG feeding Restraint Renewal (within 24 hrs): Yes Ulcer Prophylaxis: PPI Chemical Thromboprophylaxis: Prophylaxis: Heparin Mechanical Thromboprophylaxis: SCDs Need for Central line: No Need for Juárez catheter: Yes Attestations 2 Medical Necessity Statement*: Still intubated and requires mechanical ventilation Time Spent in Patient Care: Greater than 35 minutes (>than 50% of time spent in counselling and/or direct pt care on unit) . Critical Care Time: This patient has a high probability of clinically significant, sudden or life threatening deterioration of the patient's (cardiac, pulmonary, renal, neurological) systems required my full, direct attention, the highest level of physician preparedness for urgent intervention and personal management. I managed/supervised life or organ supporting interventions that required frequent physician assessment. I devoted my full attention in the ICU to the direct care of this patient for the period of time indicated above. Time I spent with family or surrogate(s) is included only if the patient was incapable of providing necessary information or participating in decision making. This time includes the following services provided: Telemetry review Mechanical Ventilation Hemodynamic interpretation, assessment and management Review and interpretation of CXR Review and interpretation of lab values Review and interpretation of microbiologic data and culture results Review of medications and administration Review and interpretation of Nutrition requirements and management Discussion of management with other consultants and services Clinical update to family members [x] Data and vital sign review and interpretation [x] Patient assessment, examination and intervention [x] Documentation [x] Medication orders and management Coding Level of Care Code Acute Code for Chg Fwd Diagnoses LIZ (obstructive sleep apnea) G47.33 Acute on chronic diastolic (congestive) heart failure I50.33 Acute kidney injury superimposed on chronic kidney disease N17.9; N18.9 Difficult ventilator weaning Z99.11 UTI due to Klebsiella species N39.0; B96.89 Time Spent (min) 51
[2023-12-25] MEDS: fentaNYL 1,000 MCG/100 ML BAG 5 MCG IV (10:06)
--- NOTE | 2023-12-25 10:06 | P.PN_ITS ---
Subjective 2 Subjective: remains on vent Medications: Reviewed: Yes Vitals/I&O/Wt Last Vital Signs Temp 97.4 F L 12/25/23 08:00 Pulse 79 12/25/23 09:07 Resp 16 12/25/23 08:53 BP 126/47 12/25/23 08:00 Pulse Ox 98 12/25/23 08:53 O2 Del Method Mechanical Ventilation 12/25/23 08:51 O2 Flow Rate 2 12/19/23 14:00 FiO2 30 12/25/23 08:53 12/24/23 12/25/23 12/25/23 22:59 06:59 14:59 Intake Total 508.994 / 1358.994 516.33 / 1875.324 92.400 / 92.400 Output Total 75 / 3375 Balance 433.994 / -2016.006 516.33 / -1499.676 92.400 / 92.400 Weight last 48 hrs Weight 152.974 kg Weight 130.9 kg Weight 133.923 kg Weight 157 kg Physical Exam 2 Narrative: on vent Urinary Catheter Management: Latex Free: Cath Placed During This Visit: yes Reason for Continuing Indwelling Catheter: Accurate Measurement of Urinary Output in Critically Ill Patients Urinary Catheter Date of Insertion: 12/12/23 Urinary Catheter Time of Insertion: 15:39 Data 12/25/23 04:34 12/25/23 04:34 A&P Assessment and plan (1) Acute kidney injury superimposed on chronic kidney disease: Plan 1. Acute on chronic kidney disease stage III: Patient's baseline creatinine of 1.5-1.9, has multiple ROSEMARIE's in the past. -was on Lasix drip with IV albumin every 8 hours, + metolazone 2.5 mg bid daily-->switched to bumex , with inadequate diuresis . - S/P tunnelled catheter placement and HD done yesterday , plan for HD again in Am -2 g sodium restriction and 1500 mL fluid restriction 2. Anemia: s/p transfusion ,will add BOUCHRA 3. Diastolic CHF, UF as above, echo 4. Acute on chronic respiratory failure, multifactorial, Intubated , patient has history of COPD, LIZ and CHF 5. History of diabetes Patient evaluated using audiovisual cart. Time spent 20 minutes. Attestations 2 Medical Necessity Statement*: per medicine Coding Level of Care Code Acute Code for Chg Fwd Diagnoses Acute kidney injury superimposed on chronic kidney disease N17.9; N18.9
[2023-12-25 11:35] LABS: Glucose Point of Care 137 mg/dL (70-110)
[2023-12-25] MEDS: propofol 1,000 MG/100 ML INJ 19.8 MG IV ×2 (13:53→19:27)
[2023-12-25] MEDS: heparin, porcine 1,000 unit/mL INJ 10 mL 1000 UNIT IV (14:01)
--- NOTE | 2023-12-25 14:11 | PC.HD ---
During dressing change, HD catheter insertion site was noted to be reddened. No exudate noted. Area was cleansed well with Chloraprep, and triple antibiotic ointment was applied, covered with new Covaderm dressing. Primary RN and personal computer network engineer aware. Unable to draw from arterial port of HD catheter; therefore lines were connected in reverse configuration. Treatment initiated without difficulty.
--- NOTE | 2023-12-25 14:41 | PC.NURSE ---
turned and reposition frequent ... last two days have attempt to move pt head to right but has tendency to keep to left with air matress assist turned to right side propped with 4 pillows
[2023-12-25 17:28] LABS: Glucose Point of Care 127 mg/dL (70-110)
[2023-12-25] MEDS: heparin, porcine 1,000 unit/mL INJ 10 mL 10000 UNIT INTRACATH (17:54)
--- NOTE | 2023-12-25 18:08 | PC.HD ---
At conclusion of treatment, heparin 2400 units and heparin 2500 units instilled into arterial and venous limbs of HD catheter, respectively. Patient tolerated treatment. Currently, 19.5 L removed over past six treatments.
[2023-12-25] MEDS: meropenem 500 MG in sodium chloride 0.9% (plus) 50 ML 100 MG IV (21:00)
[2023-12-25 21:04] LABS: Glucose Point of Care 127 mg/dL (70-110)
--- NOTE | 2023-12-25 21:19 | P.PN_ITS ---
Subjective 2 Subjective: Intubated, on sedation, mechanically ventilated. Medications: Reviewed: Yes Medication Review Details: Current Medications Albuterol/Ipratropium (Ipratropium-Albuterol 3 Ml Neb) 3 ml INHALATION Q6H.RESP HERMINIO Last Admin: 12/19/23 15:54 Dose: 3 ml Alprazolam (Alprazolam 0.5 Mg Tablet) 0.5 mg PO TID PRN PRN Reason: ANXIETY Last Admin: 12/17/23 16:39 Dose: 0.5 mg Amlodipine Besylate (Amlodipine 10 Mg Tablet) 10 mg PO DAILY [facility] Last Admin: 12/19/23 08:18 Dose: 10 mg Atorvastatin Calcium (Atorvastatin 40 Mg Tablet) 20 mg PO BEDTIME [facility] Last Admin: 12/18/23 20:50 Dose: 20 mg Benzocaine (Cetylpyridinium Lozenge) 1 each MUCOUS MEM Q2H PRN PRN Reason: SORE THROAT Last Admin: 12/17/23 08:38 Dose: 1 each Budesonide (Budesonide 0.5 Mg/2 Ml Neb) 0.5 mg INHALATION BID.RESPIRATORY [facility] Last Admin: 12/19/23 07:38 Dose: 0.5 mg Chlorhexidine Gluconate (Chlorhexidine Gluconate 4% Btl 118 Ml) 1 applic TOPICAL BID [facility] Cyclobenzaprine HCl (Cyclobenzaprine 10 Mg Tablet) 10 mg PO TID PRN PRN Reason: MUSCLE SPASMS Last Admin: 12/17/23 08:38 Dose: 10 mg Dextrose (Dextrose 50% Syringe 50 Ml) 25 ml IVP ONCE PRN; Protocol PRN Reason: hypoglycemia protocol Dextrose (Dextrose 50% Syringe 50 Ml) 50 ml IVP PRN PRN; Protocol PRN Reason: hypoglycemia protocol Ferrous Sulfate (Ferrous Sulfate Ec 325 Mg Tablet) 325 mg PO DAILY [facility] Last Admin: 12/19/23 08:18 Dose: 325 mg Fluoxetine HCl (Fluoxetine 20 Mg Capsule) 20 mg PO DAILY [facility] Last Admin: 12/19/23 08:18 Dose: 20 mg Gabapentin (Gabapentin 100 Mg Capsule) 100 mg PO BID [facility] Last Admin: 12/19/23 08:18 Dose: 100 mg Hydralazine HCl (Hydralazine 50 Mg Tablet) 50 mg PO TID [facility] Last Admin: 12/19/23 14:18 Dose: 50 mg Hydromorphone HCl (Hydromorphone 1 Mg/Ml Inj 1 Ml) 0.5 mg IVP Q6H PRN PRN Reason: PAIN Last Admin: 12/19/23 16:15 Dose: 0.5 mg Dextrose (D5w) 500 mls @ 0 mls/hr IV ONCE PRN; Protocol PRN Reason: Adult Acute Hypoglycemia Prot Albumin Human (Albumin) 25 g in 100 mls @ 60 mls/hr IV Q8H [facility] Last Infusion: 12/19/23 16:14 Dose: Infused Insulin Glargine (Insulin Glargine 100 Units/1 Ml) 20 unit SUBCUT DAILY [facility] Last Admin: 12/19/23 08:18 Dose: 20 unit Insulin Human Lispro (Insulin Lispro 100 Unit/1 Ml) 0 unit SUBCUT WM&BEDTIME [facility]; Protocol Last Admin: 12/19/23 17:03 Dose: Not Given Isosorbide Mononitrate (Isosorbide Mononitrate Er 60 Mg Tablet) 60 mg PO BID [facility] Last Admin: 12/19/23 08:18 Dose: 60 mg Naloxone HCl (Naloxone 0.4 Mg/Ml Sdv) 0.4 mg IVP PRN PRN PRN Reason: RESPIRATORY RATE < 8/MIN Nystatin (Nystatin Powder 30 Gm Btl) 1 applic TOPICAL BID [facility] Last Admin: 12/19/23 09:19 Dose: Not Given Ondansetron HCl (Ondansetron 2 Mg/Ml Sdv 2 Ml) 4 mg IVP Q6H PRN PRN Reason: vomiting, or N/V if npo Oxycodone HCl (Oxycodone 5 Mg Ir Tab/Cap) 10 mg PO Q8H PRN PRN Reason: MODERATE PAIN Last Admin: 12/19/23 11:13 Dose: 10 mg Pantoprazole Sodium (Pantoprazole Dr 40 Mg Tablet) 40 mg PO BID [facility] Last Admin: 12/19/23 08:18 Dose: 40 mg Senna/Docusate Sodium (Sennosides-Docusate Tablet) 2 tab PO BID [facility] Last Admin: 12/19/23 08:18 Dose: 2 tab Trazodone HCl (Trazodone 100 Mg Tablet) 100 mg PO BEDTIME [facility] Last Admin: 12/18/23 20:50 Dose: 100 mg Vitals/I&O/Wt Last Vital Signs Temp 98.8 F 12/25/23 18:07 Pulse 73 12/25/23 20:27 Resp 16 12/25/23 20:27 BP 143/51 12/25/23 18:07 Pulse Ox 98 12/25/23 20:27 O2 Del Method Mechanical Ventilation 12/25/23 20:27 O2 Flow Rate 2 12/19/23 14:00 FiO2 30 12/25/23 20:27 12/25/23 12/25/23 12/25/23 06:59 14:59 22:59 Intake Total 516.33 / 1875.324 247.879 / 247.879 400 / 647.879 Output Total 4300 / 4300 Balance 516.33 / -1499.676 247.879 / 247.879 -3900 / -3652.121 Weight last 48 hrs Weight 150.7 kg Weight 152.974 kg Weight 130.9 kg Weight 133.923 kg Physical Exam 2 Const: COMMON NORMALS: alert GENERAL APPEARANCE: cooperative and patient mechanically ventilated ORIENTATION/CONSCIOUSNESS: Yes awake HENMT: COMMON NORMALS: oropharynx normal Neck/C-Spine: COMMON NORMALS: no JVD Resp: COMMON NORMALS: normal respiratory effort and clear to auscultation bilaterally AUSCULTATION: clear to auscultation bilaterally Cardio: COMMON NORMALS: no JVD, regular rhythm, S1 normal heart sound present, S2 normal heart sound present and No murmurs present (Cardio) RHYTHM: regular rhythm HEART SOUNDS: S1 normal heart sound present and S2 normal heart sound present GI: COMMON NORMALS: Normal to inspection, nondistended, normoactive bowel sounds present, Soft to palpation and non-tender PALPATION: Yes Soft to palpation Extremity: COMMON NORMALS: no joint enlargement OTHER: Anasarca continue to improve. both lower extremities and upper extremities. Right upper extremity worse swelling. Swelling/puffiness of both hands. Hands are warm, perfused. Neuro: COMMON NORMALS: moves all extremities SENSORIUM/ORIENTATION: Yes alert Urinary Catheter Management: Latex Free: Cath Placed During This Visit: yes Reason for Continuing Indwelling Catheter: Accurate Measurement of Urinary Output in Critically Ill Patients Urinary Catheter Date of Insertion: 12/12/23 Urinary Catheter Time of Insertion: 15:39 Data 12/25/23 04:34 12/25/23 04:34 A&P Assessment and plan (1) SOB (shortness of breath): Reviewed vitals, CBC, BMP, chest x-ray, ventilator settings, discussed with seam rubbing machine operator. She is doing well in terms of oxygenation, down on 30% FiO2, her, pressures have been concerning, and concern is that with extubation she at this point may still fail BiPAP combined with high risk for intubation due to number of factors including very narrow airway noted on prior intubation. Continue mechanical ventilation at this time. Continue with increased PEEP. Continue dialysis, discussed with clinical data assistant, as per discussion with seam rubbing machine operator additional session today. Continue treatment of pneumonia. Difficulty with extubation, persistent respiratory failure. Discussed with pulmonology. PEEP adjusted. Continue dialysis. Broaden antibiotic course with meropenem, linezolid. Continue pulmonary toilet. Pulmonology considering bronchoscopy.Reviewed pulmonology note. Sputum cultures reviewed, normal tamar. Follow-up. Cont inhaled budesonide. After extubation continue oxygen support, BiPAP support as needed and with sleep for LIZ Hemodialysis. Most likely a combination of obstructive sleep apnea, diastolic heart failure, COPD and anxiety. Keep oxygen supplementation over 88 to 90%. Nebulization treatment. (2) ROSEMARIE (acute kidney injury): Continue hemodialysis. Reviewed nephrology note. Acute renal failure, continue dialysis. Temporary hemodialysis catheter in place. Monitor urine output. Reassess chemistry, renal function. (3) Acute exacerbation of congestive heart failure: Continue dialysis. Reviewed electrolytes. Echocardiogram showed ejection fraction within normal limits right ventricular dilation bilateral atrial enlarged tricuspid regurgitation no pericardial. Most likely diastolic heart failure. Patient takes Bumex 2 mg twice daily at home. Overall around 1200 cc negative since admission. With very poor response to aggressive diuresis with worsening of renal functions. Continue with fluid restriction up to 1500 cc. Strict input charting, daily weights. Juárez catheterization. Not sure about CHF being the only reason for patient's shortness of breath. Continue with Xanax 0.5 every 8 hourly as needed for anxiety. Cannot give morphine as patient has morphine allergy with itching. Though has been able to tolerate hydromorphone. Continue with home dose of duloxetine. Continue to optimize hypertension. Medications held till NG tube placed. Continues on amlodipine, hydralazine. Qualifiers: Heart failure type: unspecified Qualified Code(s): I50.9 - Heart failure, unspecified (4) LIZ (obstructive sleep apnea): After extubation BiPAP nightly and when resting. Patient is due for a sleep study as an outpatient. Patient will benefit with BiPAP as an outpatient on discharge also. (5) Chronic obstructive pulmonary disease, unspecified: Nebulization treatment as above. Qualifiers: COPD type: unspecified COPD Qualified Code(s): J44.9 - Chronic obstructive pulmonary disease, unspecified (6) Anemia: Reviewed hemoglobin and platelets. Appears to be stable so far. Hemoglobin improved following transfusion of 1 unit packed red blood cells on December 15 Anemia likely related to chronic kidney disease, autoimmune disease. Continue with Protonix twice daily. Continue with oral iron supplementation. Qualifiers: Anemia type: iron deficiency Iron deficiency anemia type: inadequate dietary iron intake Qualified Code(s): D50.8 - Other iron deficiency anemias (7) Type 2 diabetes mellitus with diabetic chronic kidney disease: Sliding scale insulin Continue long-acting insulin Consistent carb diet Qualifiers: Diabetes mellitus skilled nursing insulin use: with terminal operations manager use Chronic kidney disease stage: stage 4 (severe) Qualified Code(s): E11.22 - Type 2 diabetes mellitus with diabetic chronic kidney disease; N18.4 - Chronic kidney disease, stage 4 (severe); Z79.4 - terminal operations manager (current) use of insulin Plan Generalized weakness: Possibly uremic symptoms, arrangements for renal replacement therapy as above. Possibly myopathy with statin, held atorvastatin for now. CK, normal. Possibly some contribution of UTI, starting antibiotic as per discussion with her daughter. UTI: Complicated UTI with MDRO Klebsiella resistant to all antibiotics except ceramics and and imipenem. Discussed with her daughter. Discussed consideration of treatment, risks, benefits, risks and setting of marked renal failure. Will adjust dose with meropenem, monitor for risk of seizure. Decrease dose to 500 mg in 24 hours. Anasarca: Arrangements for renal replacement therapy as above. Were swelling of right upper extremity compared to left: Assess venous duplex for any DVT. Constipation is multifactorial. senna 2 tablets twice daily, monitor for bowel movement. Hypertension: amlodipine 10 mg daily, hydralazine 50 mg 3 times daily, Imdur. Full code Heparin for DVT prophylaxis Attestations 2 Medical Necessity Statement*: Continue with for assessment management of respiratory failure, acute renal failure. Coding Level of Care Code Critical Care >/= 30 minutes Critical care time (in minutes): 35 The high probability of a clinically significant, sudden or life threatening deterioration, as referenced in this documentation, required my full and direct attention, intervention and personal management. The critical care time shown is in addition to time spent performing any reported separately billable procedures and includes the following: [x] Data and vital sign review and interpretation [x ] Patient assessment, examination and intervention [x] Medication orders and management [x] Patient/Family updates as able [x] Care Coordination and Documentation. Diagnoses SOB (shortness of breath) R06.02 ROSEMARIE (acute kidney injury) N17.9 Acute exacerbation of congestive heart failure I50.9 Heart failure type: unspecified LIZ (obstructive sleep apnea) G47.33 Chronic obstructive pulmonary disease, unspecified COPD type J44.9 COPD type: unspecified COPD Iron deficiency anemia secondary to inadequate dietary iron intake D50.8 Anemia type: iron deficiency Iron deficiency anemia type: inadequate dietary iron intake Type 2 diabetes mellitus with stage 4 chronic kidney disease, with long-term current use of insulin E11.22; N18.4; Z79.4 Diabetes mellitus skilled nursing insulin use: with skilled nursing use Chronic kidney disease stage: stage 4 (severe)
[2023-12-26] VITALS (80 sets, daily range): BP systolic 125–190; BP diastolic 39–84; PULSE 69–86; RESP 10–26; TEMP 36.6–36.9; O2SAT 86–100
[2023-12-26] MEDS: propofol 1,000 MG/100 ML INJ 19.8 MG IV ×5 (00:36→21:31)
[2023-12-26] MEDS: ipratropium-albuterol 3 mL Neb INHALATION ×4 (03:28→19:57)
[2023-12-26] MEDS: fentaNYL 1,000 MCG/100 ML BAG 5 MCG IV (03:43)
[2023-12-26 04:49] LABS: Basophils # 0.1 10^3/uL (0.0-0.1); Basophils % 0.9 %; Eosinophils # 0.5 10^3/uL (0.0-0.8); Eosinophils % 4.9 %; Lymphocytes # 0.7 10^3/uL (0.8-4.8); Lymphocytes % 7.8 %; Mean Corpuscular HGB Conc 31.1 g/dL (30-55); Mean Corpuscular Hemoglobin 28.2 pg (27-33); Mean Corpuscular Volume 90.6 fl (85-98); Mean Platelet Volume 9.7 fL (7.4-10.4); Monocytes # 1.1 10^3/uL (0.2-0.9); Monocytes % 11.3 %; Neutrophils # 6.72 10^3/uL (1.8-7.7); Neutrophils % 72.5 %; Nucleated Red Blood Cells % 0 %; Platelet Count 189 10^3/cmm (157-399); Red Blood Count 3.09 10^6/uL (3.85-5.65); Red Cell Distribution Width 15.9 % (12.1-15.1); White Blood Count 9.26 10^3/uL (3.29-11.43)
[2023-12-26] MEDS: pantoprazole 40 mg SDV IVP ×2 (04:55→17:27)
[2023-12-26] MEDS: linezolid premix 600 MG/300 ML PREMIX 300 MG IV ×2 (04:56→17:28)
[2023-12-26 05:10] LABS: Anion Gap 16.4 (5-19); Blood Urea Nitrogen 18 mg/dL (8-23); Calcium 9.4 mg/dL (8.5-10.5); Carbon Dioxide 26 mmol/L (22-29); Chloride 97 mmol/L (98-107); Glomerular Filtration Rate 22.3 mL/min (90-130); Glucose 110 mg/dL (65-115); Osmolality Calculated 285 mOsm/kg (285-295); Potassium 3.4 mmol/L (3.5-5.1); Sodium 136 mmol/L (136-145)
[2023-12-26 07:27] LABS: Glucose Point of Care 128 mg/dL (70-110)
--- NOTE | 2023-12-26 08:35 | XR_ITS ---
WS: [id number] XR chest 1V portable [id number] REASON FOR EXAM: daily FINDINGS: Properly positioned nasogastric tube, dual-lumen right internal jugular dialysis catheter, and endotr acheal tube. Resolving diffuse lung opacities bilaterally. There continues to be loss of the left hemidiaphragmati c contour indicating adjacent lung consolidation and/or pleural fluid. No new findings. IMPRESSION: Improving chest as above.
[2023-12-26] MEDS: budesonide 0.5 mg/2 mL Neb INHALATION ×2 (08:40→19:57)
[2023-12-26] MEDS: fluoxetine 20 mg Capsule PO (09:22)
[2023-12-26] MEDS: hyDRALAzine 50 mg Tablet 100 MG PO ×3 (09:22→20:30)
[2023-12-26] MEDS: sennosides-docusate Tablet 2 TAB PO ×2 (09:22→17:27)
[2023-12-26] MEDS: gabapentin 100 mg Capsule PO ×2 (09:22→17:27)
[2023-12-26] MEDS: ferrous sulfate EC 325 mg Tablet PO (09:22)
[2023-12-26] MEDS: heparin 5,000 unit/mL INJ 1 mL 5000 UNIT SUBCUT ×2 (09:23→20:30)
[2023-12-26] MEDS: nystatin powder 30 gm Btl 1 APPLIC TOPICAL ×2 (09:23→17:50)
--- NOTE | 2023-12-26 10:51 | P.PN_ITS ---
Subjective 2 Subjective: s/p HD last night with 4.3 L UF Medications: Reviewed: Yes Vitals/I&O/Wt Last Vital Signs Temp 98.5 F 12/26/23 08:00 Pulse 70 12/26/23 08:40 Resp 12 12/26/23 10:05 BP 152/45 12/26/23 08:00 Pulse Ox 99 12/26/23 10:05 O2 Del Method Mechanical Ventilation 12/26/23 08:25 O2 Flow Rate 2 12/19/23 14:00 FiO2 30 12/26/23 10:05 12/25/23 12/26/23 12/26/23 22:59 06:59 14:59 Intake Total 700 / 947.879 350.283 / 1298.162 399.88 / 399.88 Output Total 4300 / 4300 120 / 4420 Balance -3600 / -3352.121 230.283 / -3121.838 399.88 / 399.88 Weight last 48 hrs Weight 146.465 kg Weight 150.7 kg Weight 152.974 kg Weight 130.9 kg Physical Exam 2 Narrative: on vent Urinary Catheter Management: Latex Free: Cath Placed During This Visit: yes Reason for Continuing Indwelling Catheter: Accurate Measurement of Urinary Output in Critically Ill Patients Urinary Catheter Date of Insertion: 12/12/23 Urinary Catheter Time of Insertion: 15:39 Data 12/26/23 04:10 12/26/23 04:10 A&P Assessment and plan (1) Acute kidney injury superimposed on chronic kidney disease: Plan 1. Acute on chronic kidney disease stage III: Patient' baseseline creatinine of 1.5-1.9, has multiple ROSEMARIE's in the past. -was on Lasix drip with IV albumin every 8 hours, + metolazone 2.5 mg bid daily-->switched to bumex , with inadequate diuresis . - S/P tunnelled catheter placement and getting HD , next HD tomorrow -2 g sodium restriction and 1500 mL fluid restriction 2. Anemia: s/p transfusion ,will add BOUCHRA 3. Diastolic CHF, UF as above, echo 4. Acute on chronic respiratory failure, multifactorial, Intubated , patient has history of COPD, LIZ and CHF 5. History of diabetes Patient evaluated using audiovisual cart. Time spent 20 minutes. Attestations 2 Medical Necessity Statement*: per [facility] Coding Level of Care Code Acute Code for Chg Fwd Diagnoses Acute kidney injury superimposed on chronic kidney disease N17.9; N18.9
[2023-12-26 10:55] LABS: Glucose Point of Care 151 mg/dL (70-110)
[2023-12-26] MEDS: insulin lispro 100 unit/1 mL SUBCUT (11:05)
--- NOTE | 2023-12-26 13:27 | XR_ITS ---
WS: [id number] XR chest 1V portable [id number] REASON FOR EXAM: picc FINDINGS: Initial PICC line position was at the atrial level. PICC line was withdrawn 2 cm and repeat examinati on obtained. The PICC line is in the distal third of the superior vena cava just distal to the dialys is catheter tip. This position is appropriate for use. IMPRESSION: PICC line placement in proper position as above. PICC line position and reposition was discussed with the medical technologist hematology over the phone from 1 :35 p.m. to 1:38 p.m.
[2023-12-26 14:48] LABS: Glucose Point of Care 130 mg/dL (70-110)
--- NOTE | 2023-12-26 18:08 | PM.PN ---
Subjective Subjective: All records, not appreciated. With the morning seen with family at bedside. Patient is currently intubated awake and following slight commands. She is on PEEP of 10 which is coming down from PEEP of 12 earlier in the day. Vent settings appreciated. Otherwise patient has remained hemodynamically stable, afebrile, saturating well on current ventilator settings. Vitals/I&O/Wt Last Vital Signs Temp 98.0 F 12/26/23 16:00 Pulse 73 12/26/23 16:15 Resp 16 12/26/23 17:51 BP 166/44 12/26/23 16:15 Pulse Ox 98 12/26/23 17:51 O2 Del Method Mechanical Ventilation 12/26/23 13:50 O2 Flow Rate 2 12/19/23 14:00 FiO2 30 12/26/23 17:51 12/26/23 12/26/23 12/26/23 06:59 14:59 22:59 Intake Total 350.283 / 1298.162 399.88 / 399.88 83.17 / 483.05 Output Total 120 / 4420 Balance 230.283 / -3121.838 399.88 / 399.88 83.17 / 483.05 Weight last 48 hrs Weight 146.465 kg Weight 150.7 kg Weight 152.974 kg Physical Exam Const: COMMON NORMALS: alert GENERAL APPEARANCE: cooperative and patient mechanically ventilated ORIENTATION/CONSCIOUSNESS: Yes awake OTHER: Waking up. HENMT: COMMON NORMALS: oropharynx normal Neck/C-Spine: COMMON NORMALS: no JVD Resp: COMMON NORMALS: normal respiratory effort and clear to auscultation bilaterally AUSCULTATION: clear to auscultation bilaterally Cardio: COMMON NORMALS: no JVD, regular rhythm, S1 normal heart sound present, S2 normal heart sound present and No murmurs present (Cardio) RHYTHM: regular rhythm HEART SOUNDS: S1 normal heart sound present and S2 normal heart sound present GI: COMMON NORMALS: Normal to inspection, nondistended, normoactive bowel sounds present, Soft to palpation and non-tender PALPATION: Yes Soft to palpation Extremity: COMMON NORMALS: no joint enlargement OTHER: Anasarca continue to improve. both lower extremities and upper extremities. Hands are warm, perfused. Neuro: COMMON NORMALS: moves all extremities SENSORIUM/ORIENTATION: Yes alert Urinary Catheter Management: Latex Free: Cath Placed During This Visit: yes Reason for Continuing Indwelling Catheter: Accurate Measurement of Urinary Output in Critically Ill Patients Urinary Catheter Date of Insertion: 12/12/23 Urinary Catheter Time of Insertion: 15:39 Data 12/26/23 04:10 12/26/23 04:10 A&P Assessment and plan (1) SOB (shortness of breath): In setting of congestive heart failure along with severe obstructive sleep apnea in a patient with end-stage renal disease. Currently chronically ventilated on high PEEP. Pulmonary recommendations appreciated. Patient has received 6 sessions of dialysis in the last 6 days. Discussed with nephrology. Hold off on dialysis for today. Overall around 16 L net negative. Difficult extubation in setting of severe sleep apnea. Will plan to continue to wean down PEEP within next 24 hours with possibility of trial of extubation within next 24 to 48 hours. Sedation vacation for as long as possible. Will plan to put her back on ventilation at night as possible. Sputum culture intubation negative. Pneumonia less likely. Given broad-spectrum antibiotics with Zyvox and meropenem. For now we will continue and finish a 5-day course. Send repeat sputum cultures. Continue DuoNebs every 6 hour, Pulmicort twice daily. (2) ROSEMARIE (acute kidney injury): On CKD stage V. Nephrology recommendations appreciated. Continue with hemodialysis. Temporary hemodialysis catheter in place. Once patient is more hemodynamically stable and extubated most likely patient will need dialysis as an outpatient as well. Case management alerted for possibility of outpatient dialysis. (3) Acute exacerbation of congestive heart failure: Continue dialysis. Reviewed electrolytes. Echocardiogram showed ejection fraction within normal limits right ventricular dilation bilateral atrial enlarged tricuspid regurgitation no pericardial. Most likely diastolic heart failure. Patient takes Bumex 2 mg twice daily at home. Overall around 1200 cc negative since admission. With very poor response to aggressive diuresis with worsening of renal functions. Continue with fluid restriction up to 1500 cc. Strict input charting, daily weights. Juárez catheterization. Qualifiers: Heart failure type: unspecified Qualified Code(s): I50.9 - Heart failure, unspecified (4) LIZ (obstructive sleep apnea): After extubation BiPAP nightly and when resting. Patient is due for a sleep study as an outpatient. Patient will benefit with BiPAP as an outpatient on discharge also. (5) Chronic obstructive pulmonary disease, unspecified: Nebulization treatment as above. Qualifiers: COPD type: unspecified COPD Qualified Code(s): J44.9 - Chronic obstructive pulmonary disease, unspecified (6) Anemia: Hemoglobin so far stable. Last transfusion of 12/15. Anemia likely related to chronic kidney disease, autoimmune disease. Continue with Protonix twice daily. Continue with oral iron supplementation. Qualifiers: Anemia type: iron deficiency Iron deficiency anemia type: inadequate dietary iron intake Qualified Code(s): D50.8 - Other iron deficiency anemias (7) Type 2 diabetes mellitus with diabetic chronic kidney disease: Continue with insulin sliding scale. Holding off on long-acting insulin. Insulin sliding scale and blood sugar checks every 6 hours. 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 Continue with meropenem renally dosed for now. Will need for as needed meropenem dosed postdialysis. Patient remains afebrile and hemodynamically stable for next 48 hours we will discontinue antibiotics. Hypertension: Goal blood pressure less than 140/90 mmHg. Blood pressure is controlled for now. Continue with hydralazine 100 mg 3 times daily. Holding off on all other home antihypertensives for now. Sedation: Propofol and fentanyl. Sedation vacation daily. Glycemic control: Sliding scale every 6 hours Nutrition: Currently not on tube feeds. Plan for extubation probably within next 48 hours we will hold off on tube feeds for now. CODE STATUS: Full code PUD prophylaxis: Protonix DVT prophylaxis: Heparin 5000 every 12 hourly Discharge planning: Plan to discharge to possible LTAC. The patient has unsuccessful extubation most likely will plan for tracheostomy and plan for LTAC placement. Discussed with sons at bedside. They are agreeable. Case management alerted. Continue with care at ICU. Plan of treatment discussed in detail with patient's son at bedside along with DPOA/daughter over the phone. All the questions were answered. This documentation was created by [employer] housemaid software. Every effort was made to ensure accuracy of housemaid. Any obvious errors or omissions should be clarified with the author of the document. Attestations Medical Necessity Statement*: Requires further hospitalization for management of hypoxic respiratory failure, ventilator dependent in a patient with CKD stage V requiring hemodialysis obstructive sleep apnea, heart failure Critical Care Time: The high probability of a clinically significant, sudden or life threatening deterioration of the patient's [cardiac, renal, pulmonary] system(s) required my full and direct attention, intervention and personal management. The critical care time is as shown. This time is in addition to time spent performing any reported procedures but includes the following: [x] Data and vital sign review and interpretation [x] Patient assessment, examination and intervention [x] Documentation [x] Medication orders and management Critical Care Time (min): 100 Coding Level of Care Code Critical Care >/= 30 minutes Critical care time (in minutes): 100 The high probability of a clinically significant, sudden or life threatening deterioration, as referenced in this documentation, required my full and direct attention, intervention and personal management. The critical care time shown is in addition to time spent performing any reported separately billable procedures and includes the following: [x] Data and vital sign review and interpretation [x] Patient assessment, examination and intervention [x] Medication orders and management [x] Patient/Family updates as able [x] Care Coordination and Documentation. Other Coding Information This patient has a high probability of clinically significant, sudden or life threatening deterioration of the patient's (neurological/pulmonary/cardiac/renal/ID/endocrine) systems required my full, direct attention, the highest level of physician preparedness for urgent intervention and personal management. I managed/supervised life or organ supporting interventions that required frequent physician assessment. I devoted my full attention in the ICU to the direct care of this patient for the period of time indicated above. Time I spent with family or surrogate(s) is included only if the patient was incapable of providing necessary information or participating in decision making. This time includes the following services provided: Telemetry review Mechanical Ventilation Hemodynamic interpretation, assessment and management Review and interpretation of CXR Review and interpretation of lab values Review and interpretation of microbiologic data and culture results Review of medications and administration Review and interpretation of Nutrition requirements and management Discussion of management with other consultants and services Clinical update to family members Diagnoses SOB (shortness of breath) R06.02 ROSEMARIE (acute kidney injury) N17.9 Acute exacerbation of congestive heart failure I50.9 Heart failure type: unspecified LIZ (obstructive sleep apnea) G47.33 Chronic obstructive pulmonary disease, unspecified COPD type J44.9 COPD type: unspecified COPD Iron deficiency anemia secondary to inadequate dietary iron intake D50.8 Anemia type: iron deficiency Iron deficiency anemia type: inadequate dietary iron intake Type 2 diabetes mellitus with stage 4 chronic kidney disease, with long-term current use of insulin E11.22; N18.4; Z79.4 Chronic kidney disease stage: stage 4 (severe) 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
--- NOTE | 2023-12-26 18:45 | PM.PN ---
Subjective Subjective: - No acute overnight events -Appears clinically dry -Today plan is to do SAT as well as will plan to reduce PEEP settings while on MMV -Chest x-ray showed improving pulmonary congestion -Patient son and family at bedside-explained about the high risk for reintubation given patient's congestive infiltrates on chest x-ray and having a difficult airway to reintubate-we would want to continue fluid removal as permitted with dialysis and reduction of ventilator settings with less possible PEEP and will plan to extubate next 24 to 48 hours and failing which she will be transferred to LTAC for tracheostomy placement. Family verbalized understanding and agreed with the plan Medications: Reviewed: Yes Medication Review Details: Current Medications Albuterol/Ipratropium (Ipratropium-Albuterol 3 Ml Neb) 3 ml INHALATION Q6H.RESP HERMINIO Last Admin: 12/19/23 15:54 Dose: 3 ml Alprazolam (Alprazolam 0.5 Mg Tablet) 0.5 mg PO TID PRN PRN Reason: ANXIETY Last Admin: 12/17/23 16:39 Dose: 0.5 mg Amlodipine Besylate (Amlodipine 10 Mg Tablet) 10 mg PO DAILY HERMINIO Last Admin: 12/19/23 08:18 Dose: 10 mg Atorvastatin Calcium (Atorvastatin 40 Mg Tablet) 20 mg PO BEDTIME HERMINIO Last Admin: 12/18/23 20:50 Dose: 20 mg Benzocaine (Cetylpyridinium Lozenge) 1 each MUCOUS MEM Q2H PRN PRN Reason: SORE THROAT Last Admin: 12/17/23 08:38 Dose: 1 each Budesonide (Budesonide 0.5 Mg/2 Ml Neb) 0.5 mg INHALATION BID.RESPIRATORY HERMINIO Last Admin: 12/19/23 07:38 Dose: 0.5 mg Chlorhexidine Gluconate (Chlorhexidine Gluconate 4% Btl 118 Ml) 1 applic TOPICAL BID HERMINIO Cyclobenzaprine HCl (Cyclobenzaprine 10 Mg Tablet) 10 mg PO TID PRN PRN Reason: MUSCLE SPASMS Last Admin: 12/17/23 08:38 Dose: 10 mg Dextrose (Dextrose 50% Syringe 50 Ml) 25 ml IVP ONCE PRN; Protocol PRN Reason: hypoglycemia protocol Dextrose (Dextrose 50% Syringe 50 Ml) 50 ml IVP PRN PRN; Protocol PRN Reason: hypoglycemia protocol Ferrous Sulfate (Ferrous Sulfate Ec 325 Mg Tablet) 325 mg PO DAILY HERMINIO Last Admin: 12/19/23 08:18 Dose: 325 mg Fluoxetine HCl (Fluoxetine 20 Mg Capsule) 20 mg PO DAILY COUNTS INCLUDE 234 BEDS AT THE [facility] Last Admin: 12/19/23 08:18 Dose: 20 mg Gabapentin (Gabapentin 100 Mg Capsule) 100 mg PO BID COUNTS INCLUDE 234 BEDS AT THE [facility] Last Admin: 12/19/23 08:18 Dose: 100 mg Hydralazine HCl (Hydralazine 50 Mg Tablet) 50 mg PO TID COUNTS INCLUDE 234 BEDS AT THE [facility] Last Admin: 12/19/23 14:18 Dose: 50 mg Hydromorphone HCl (Hydromorphone 1 Mg/Ml Inj 1 Ml) 0.5 mg IVP Q6H PRN PRN Reason: PAIN Last Admin: 12/19/23 16:15 Dose: 0.5 mg Dextrose (D5w) 500 mls @ 0 mls/hr IV ONCE PRN; Protocol PRN Reason: Adult Acute Hypoglycemia Prot Albumin Human (Albumin) 25 g in 100 mls @ 60 mls/hr IV Q8H COUNTS INCLUDE 234 BEDS AT THE [facility] Last Infusion: 12/19/23 16:14 Dose: Infused Insulin Glargine (Insulin Glargine 100 Units/1 Ml) 20 unit SUBCUT DAILY COUNTS INCLUDE 234 BEDS AT THE [facility] Last Admin: 12/19/23 08:18 Dose: 20 unit Insulin Human Lispro (Insulin Lispro 100 Unit/1 Ml) 0 unit SUBCUT WM&BEDTIME COUNTS INCLUDE 234 BEDS AT THE [facility]; Protocol Last Admin: 12/19/23 17:03 Dose: Not Given Isosorbide Mononitrate (Isosorbide Mononitrate Er 60 Mg Tablet) 60 mg PO BID COUNTS INCLUDE 234 BEDS AT THE [facility] Last Admin: 12/19/23 08:18 Dose: 60 mg Naloxone HCl (Naloxone 0.4 Mg/Ml Sdv) 0.4 mg IVP PRN PRN PRN Reason: RESPIRATORY RATE < 8/MIN Nystatin (Nystatin Powder 30 Gm Btl) 1 applic TOPICAL BID COUNTS INCLUDE 234 BEDS AT THE [facility] Last Admin: 12/19/23 09:19 Dose: Not Given Ondansetron HCl (Ondansetron 2 Mg/Ml Sdv 2 Ml) 4 mg IVP Q6H PRN PRN Reason: vomiting, or N/V if npo Oxycodone HCl (Oxycodone 5 Mg Ir Tab/Cap) 10 mg PO Q8H PRN PRN Reason: MODERATE PAIN Last Admin: 12/19/23 11:13 Dose: 10 mg Pantoprazole Sodium (Pantoprazole Dr 40 Mg Tablet) 40 mg PO BID COUNTS INCLUDE 234 BEDS AT THE [facility] Last Admin: 12/19/23 08:18 Dose: 40 mg Senna/Docusate Sodium (Sennosides-Docusate Tablet) 2 tab PO BID COUNTS INCLUDE 234 BEDS AT THE [facility] Last Admin: 12/19/23 08:18 Dose: 2 tab Trazodone HCl (Trazodone 100 Mg Tablet) 100 mg PO BEDTIME COUNTS INCLUDE 234 BEDS AT THE [facility] Last Admin: 12/18/23 20:50 Dose: 100 mg Vitals/I&O/Wt Last Vital Signs Temp 98.0 F 12/26/23 16:00 Pulse 73 12/26/23 16:15 Resp 16 12/26/23 17:51 BP 166/44 12/26/23 16:15 Pulse Ox 98 12/26/23 17:51 O2 Del Method Mechanical Ventilation 12/26/23 13:50 O2 Flow Rate 2 12/19/23 14:00 FiO2 30 12/26/23 17:51 12/26/23 12/26/23 12/26/23 06:59 14:59 22:59 Intake Total 350.283 / 1298.162 399.88 / 399.88 383.17 / 783.05 Output Total 120 / 4420 Balance 230.283 / -3121.838 399.88 / 399.88 383.17 / 783.05 Weight last 48 hrs Weight 322 lb 14.4 oz Weight 332 lb 3.786 oz Weight 337 lb 4 oz Physical Exam Narrative: PHYSICAL EXAM: General: lying in bed, sedated and intubated. HEENT:NCAT, PERRLA, EOMI Neck: Supple Lungs: Bilateral diffuse crackles Heart: s1/s2, RRR Abd: soft, NT, ND, BS + Normoactive Extremities: 2+ pitting pedal edema REPROGRAPHICS ASSOCIATE: sedated and limited REPROGRAPHICS ASSOCIATE exam possible. SKIN: no rash LDA: # HD Cath : 12/19/2023 right IJ permacath Urinary Catheter Management: Latex Free: Cath Placed During This Visit: yes Reason for Continuing Indwelling Catheter: Accurate Measurement of Urinary Output in Critically Ill Patients Urinary Catheter Date of Insertion: 12/12/23 Urinary Catheter Time of Insertion: 15:39 Data 12/26/23 04:10 12/26/23 04:10 Other Labs: Radiology Impressions Venous Duplex 12/19/23 15:40 IMPRESSION: No evidence of deep vein thrombosis. Laboratory Results WBC 9.26 10^3/uL (3.29-11.43) 12/26/23 04:10 RBC 3.09 10^6/uL (3.85-5.65) L 12/26/23 04:10 Hgb 8.70 g/dL (11.27-16.99) L 12/26/23 04:10 Hct 28.0 % (36-47) L 12/26/23 04:10 MCV 90.6 fl (85-98) 12/26/23 04:10 MCH 28.2 pg (27-33) 12/26/23 04:10 MCHC 31.1 g/dL (30-55) 12/26/23 04:10 RDW 15.9 % (12.1-15.1) H 12/26/23 04:10 Plt Count 189 10^3/cmm (157-399) 12/26/23 04:10 MPV 9.7 fL (7.4-10.4) 12/26/23 04:10 Neut % (Auto) 72.5 % 12/26/23 04:10 Lymph % (Auto) 7.8 % 12/26/23 04:10 [place] % (Auto) 11.3 % 12/26/23 04:10 Eos % (Auto) 4.9 % 12/26/23 04:10 Baso % (Auto) 0.9 % 12/26/23 04:10 Neut # (Auto) 6.72 10^3/uL (1.8-7.7) 12/26/23 04:10 Lymph # (Auto) 0.7 10^3/uL (0.8-4.8) L 12/26/23 04:10 [place] # (Auto) 1.1 10^3/uL (0.2-0.9) H 12/26/23 04:10 Eos # (Auto) 0.5 10^3/uL (0.0-0.8) 12/26/23 04:10 Baso # (Auto) 0.1 10^3/uL (0.0-0.1) 12/26/23 04:10 Nucleated RBC % (auto) 0 % 12/26/23 04:10 Nucleated RBCs # 0.0 /100WBC 12/26/23 04:10 PT 15.70 SECONDS (12.1-14.9) H 12/12/23 14:58 INR 1.21 (0.8-1.2) H 12/12/23 14:58 Specimen Type Arterial 12/24/23 04:25 Sample Site Radial, right 12/24/23 04:25 ABG pH 7.40 (7.35-7.45) 12/24/23 04:25 ABG pCO2 42.5 mmHg (35-45) 12/24/23 04:25 ABG pO2 66.2 mmHg (80.0-100.0) L 12/24/23 04:25 ABG PO2/FiO2 Ratio 0 12/24/23 04:25 ABG HCO3 26.2 mmol/L (22-26) H 12/24/23 04:25 ABG O2 Saturation 95.4 12/24/23 04:25 ABG Base Excess 1.2 mmol/L (-2.0-2.0) 12/24/23 04:25 Sharad Test Pos 12/24/23 04:25 A-a O2 Gradient 12.2 mmHg (5-10) H 12/24/23 04:25 Hematocrit 26.1 % (37-47) L 12/24/23 04:25 Hgb O2 Saturation 93.2 % (95-100) L 12/24/23 04:25 Carboxyhemoglobin 1.5 %THgb (0.4-20.1) 12/24/23 04:25 Methemoglobin 0.8 % (0.4-1.5) 12/24/23 04:25 Total Hemoglobin 8.5 g/dL (12-16) L 12/24/23 04:25 Sodium 139.0 mmol/L (131-143) 12/24/23 04:25 Potassium 3.3 mmol/L (3.5-5.0) L 12/24/23 04:25 Glucose 96.0 mg/dL (70-115) 12/24/23 04:25 Ionized Calcium 1.2 mmol/L (1.1-1.4) 12/24/23 04:25 O2 Delivery Device Vent 12/24/23 04:25 O2 Liters/Min 2.0 % 12/17/23 11:20 FiO2 30.0 % 12/24/23 04:25 Tidal Volume 0.41 02/03/24 04:25 PEEP 12.0 cmH20 12/24/23 04:25 Mechanical Insulator ID [email or web address] 12/24/23 04:25 Sodium 136 mmol/L (136-145) 12/26/23 04:10 Potassium 3.4 mmol/L (3.5-5.1) L 12/26/23 04:10 Chloride 97 mmol/L (98-107) L 12/26/23 04:10 Carbon Dioxide 26 mmol/L (22-29) 12/26/23 04:10 Anion Gap 16.4 (5-19) 12/26/23 04:10 BUN 18 mg/dL (8-23) 12/26/23 04:10 Creatinine 2.2 mg/dL (0.5-0.9) H 12/26/23 04:10 GFR Calculation 22.3 mL/min (90-130) L 12/26/23 04:10 Glucose 110 mg/dL (65-115) 12/26/23 04:10 POC Glucose 133 mg/dL (70-110) H 12/26/23 20:09 Calculated Osmolality 285 mOsm/kg (285-295) 12/26/23 04:10 Calcium 9.4 mg/dL (8.5-10.5) 12/26/23 04:10 Magnesium 2.8 mg/dL (1.7-2.3) H 12/17/23 03:05 Total Bilirubin 0.3 mg/dL (0.15-1.2) 12/24/23 03:57 AST 31 U/L (0-32) 12/24/23 03:57 ALT 14 U/L (0-33) 12/24/23 03:57 Alkaline Phosphatase 71 U/L (35-105) 12/24/23 03:57 Creatine Kinase 38 U/L (26-192) 12/19/23 04:09 Troponin T Baseline 73 ng/L (0-10) H 12/12/23 14:58 Troponin T 120 Minute 70.53 ng/L (0-10) H 12/12/23 16:53 Delta Troponin T -2.47 ABS# (0-10) L 12/12/23 16:53 Troponin T Hi Sens 6Hr 70.55 ng/L (0-10) H 12/12/23 20:29 Troponin T Hi Sens 6Hr Delta -2.45 ng/L (0-12) L 12/12/23 20:29 NT-Pro-B Natriuret Pep 9694 pg/mL (0-125) H 12/12/23 14:58 Total Protein 6.1 g/dL (6.6-8.7) L 12/24/23 03:57 Albumin 3.6 g/dL (3.5-5.2) 12/24/23 03:57 Globulin 2.5 g/dL (1.3-4.6) 12/24/23 03:57 Urine Color Yellow (Yellow) 12/17/23 12:30 Urine Appearance Clear (CLEAR) 12/17/23 12:30 Urine pH 5 (5-7) 12/17/23 12:30 Ur Specific Sulphur 1.010 (1.005-1.030) 12/17/23 12:30 Urine Protein Trace (Negative) 12/17/23 12:30 Urine Glucose (UA) Norm (Normal) 12/17/23 12:30 Urine Ketones Negative (Negative) 12/17/23 12:30 Urine Blood 3+ (Negative) H 12/17/23 12:30 Urine Nitrate Negative (Negative) 12/17/23 12:30 Urine Bilirubin Neg (Negative) 12/17/23 12:30 Urine Urobilinogen Norm mg/dL (Negative) 12/17/23 12:30 Ur Leukocyte Esterase Negative (Negative) 12/17/23 12:30 Urine RBC 25-40 /hpf (0-2) H 12/17/23 12:30 Urine WBC 5-10 /hpf (0-5) H 12/17/23 12:30 Ur Squamous Epith Cells 0-4 /hpf (0-5) H 12/17/23 12:30 Amorphous Sediment Not Reportable 12/17/23 12:30 Urine Bacteria 2+ /hpf (NONE) H 12/17/23 12:30 Hyaline Casts 0-4 /lpf H 12/17/23 12:30 Ur Random Sodium 57 mmol/L 12/17/23 12:30 Ur Random Potassium 60 mmol/L 12/17/23 12:30 Ur Random Chloride 96 mmol/L 12/17/23 12:30 Urine Creatinine 47 mg/dL (28-217) 12/17/23 12:30 Hep Bs Antigen Non-reactive (Nonreactive) 12/20/23 06:04 Hep Bs Antibody 5.5 (11.5-1000) L 12/20/23 06:04 Hep B Core Total Ab Non-reactive (Nonreactive) 12/20/23 06:04 MRSA (PCR) Not detected (NOT DETECTED) 12/22/23 21:25 Blood Type B Positive 12/15/23 07:46 Rho(D) Type Rh positive 12/15/23 07:46 Antibody Screen Negative 12/15/23 07:46 Crossmatch See Detail 12/15/23 07:46 A&P Assessment and plan (1) Difficult ventilator weaning: (2) LIZ (obstructive sleep apnea): (3) Acute on chronic diastolic (congestive) heart failure: (4) Acute kidney injury superimposed on chronic kidney disease: (5) UTI due to Klebsiella species: (6) Goals of care, counseling/discussion: Plan # Acute respiratory failure secondary to fluid overload due to acute on chronic diastolic heart failure/acute on chronic kidney disease -She is started on hemodialysis-net -13 L so far -Following commands on minimal sedation -Infiltrates on chest x-ray are improving -Appears clinically dry -Today plan is to do SAT as well as will plan to reduce PEEP settings while on MMV -Patient son and family at bedside-explained about the high risk for reintubation given patient's congestive infiltrates on chest x-ray and having a difficult airway to reintubate-we would want to continue fluid removal as permitted with dialysis and reduction of ventilator settings with less possible PEEP and will plan to extubate next 24 to 48 hours and failing which she will be transferred to LTAC for tracheostomy placement. Family verbalized understanding and agreed with the plan -She will need to be on BiPAP postextubation -Tomorrow will plan for extubation post hemodialysis -Patient is currently on meropenem for Klebsiella pneumonia in urine cultures- Zyvox was added for broader coverage given worsening infiltrates-this could all be secondary to fluid and atelectasis-endotracheal aspirate cultures-negative will discontinue antibiotics tomorrow -Hemodynamically stable with no pressor requirements -Will continue to do SAT and SBT - we will start on trickle feeding # [id number] on dialysis # Sugars [id number] insulin glargine and scale coverage ICU CHECKLIST: Problem list updated Verbal orders reviewed and signed Code Status: Full Disposition: ICU Critically ill: Yes MD discussed with: hospitalist, RN, RT Analgesia: Yes Glycemic Control: Insulin Nutrition: NG feeding Restraint Renewal (within 24 hrs): Yes Ulcer Prophylaxis: PPI Chemical Thromboprophylaxis: Prophylaxis: Heparin Mechanical Thromboprophylaxis: SCDs Need for Central line: No Need for Juárez catheter: Yes Attestations Medical Necessity Statement*: Still intubated and requires mechanical ventilation Time Spent in Patient Care: Greater than 35 minutes (>than 50% of time spent in counselling and/or direct pt care on unit). Critical Care Time: This patient has a high probability of clinically significant, sudden or life threatening deterioration of the patient's (cardiac, pulmonary, renal, neurological) systems required my full, direct attention, the highest level of physician preparedness for urgent intervention and personal management. I managed/supervised life or organ supporting interventions that required frequent physician assessment. I devoted my full attention in the ICU to the direct care of this patient for the period of time indicated above. Time I spent with family or surrogate(s) is included only if the patient was incapable of providing necessary information or participating in decision making. This time includes the following services provided: Telemetry review Mechanical Ventilation Hemodynamic interpretation, assessment and management Review and interpretation of CXR Review and interpretation of lab values Review and interpretation of microbiologic data and culture results Review of medications and administration Review and interpretation of Nutrition requirements and management Discussion of management with other consultants and services Clinical update to family members [x] Data and vital sign review and interpretation [x] Patient assessment, examination and intervention [x] Documentation [x] Medication orders and management Critical Care Time (min): 49 Coding Level of Care Code Acute Code for Chg Fwd Diagnoses Difficult ventilator weaning Z99.11 LIZ (obstructive sleep apnea) G47.33 Acute on chronic diastolic (congestive) heart failure I50.33 Acute kidney injury superimposed on chronic kidney disease N17.9; N18.9 UTI due to Klebsiella species N39.0; B96.89 Goals of care, counseling/discussion Z71.89 Time Spent (min) 49
[2023-12-26 20:11] LABS: Glucose Point of Care 133 mg/dL (70-110)
[2023-12-26] MEDS: meropenem 500 MG in sodium chloride 0.9% (plus) 50 ML 100 MG IV (21:23)
[2023-12-26] MEDS: potassium chloride oral liq 20 mEq/15 mL UDC PO (22:50)
--- NOTE | 2023-12-26 22:55 | PC.NURSE ---
Dr. Dasilva called and ordered to start Jevity TF at 20ml/h and to give 20meq KCL per OG tube x 1 dose.
[2023-12-27] VITALS (34 sets, daily range): BP systolic 154–215; BP diastolic 44–134; PULSE 69–99; RESP 13–32; TEMP 36.4–37; O2SAT 91–100
[2023-12-27 02:48] LABS: Glucose Point of Care 114 mg/dL (70-110)
[2023-12-27] MEDS: propofol 1,000 MG/100 ML INJ 19.8 MG IV ×2 (03:08→08:44)
[2023-12-27] MEDS: fentaNYL 1,000 MCG/100 ML BAG 5 MCG IV (03:11)
[2023-12-27] MEDS: ipratropium-albuterol 3 mL Neb INHALATION ×4 (03:13→20:23)
[2023-12-27] MEDS: linezolid premix 600 MG/300 ML PREMIX 300 MG IV (05:10)
[2023-12-27] MEDS: pantoprazole 40 mg SDV IVP ×2 (05:17→17:41)
[2023-12-27 05:19] LABS: Basophils # 0.1 10^3/uL (0.0-0.1); Basophils % 0.8 %; Eosinophils # 0.6 10^3/uL (0.0-0.8); Eosinophils % 6.6 %; Hematocrit 27.5 % (36-47); Lymphocytes # 0.6 10^3/uL (0.8-4.8); Lymphocytes % 7.4 %; Mean Corpuscular HGB Conc 31.3 g/dL (30-55); Mean Corpuscular Hemoglobin 28.6 pg (27-33); Mean Corpuscular Volume 91.4 fl (85-98); Mean Platelet Volume 9.3 fL (7.4-10.4); Monocytes % 11.8 %; Neutrophils % 69.9 %; Nucleated Red Blood Cells % 0 %; Platelet Count 173 10^3/cmm (157-399); Red Blood Count 3.01 10^6/uL (3.85-5.65); Red Cell Distribution Width 15.9 % (12.1-15.1); White Blood Count 8.46 10^3/uL (3.29-11.43)
[2023-12-27 05:48] LABS: Alanine Aminotransferase 18 U/L (0-33); Albumin Level 3.5 g/dL (3.5-5.2); Alkaline Phosphatase 92 U/L (35-105); Anion Gap 19.8 (5-19); Aspartate Amino Transferase 54 U/L (0-32); Blood Urea Nitrogen 25 mg/dL (8-23); Calcium 9.7 mg/dL (8.5-10.5); Carbon Dioxide 24 mmol/L (22-29); Chloride 97 mmol/L (98-107); Globulin 2.8 g/dL (1.3-4.6); Glomerular Filtration Rate 16.9 mL/min (90-130); Glucose 113 mg/dL (65-115); Osmolality Calculated 289 mOsm/kg (285-295); Potassium 3.8 mmol/L (3.5-5.1); Sodium 137 mmol/L (136-145); Total Bilirubin 0.3 mg/dL (0.15-1.2); Total Protein 6.3 g/dL (6.6-8.7)
[2023-12-27] MEDS: heparin, porcine 1,000 unit/mL INJ 10 mL 1000 UNIT IV ×2 (07:33→07:46)
[2023-12-27 07:42] LABS: Glucose Point of Care 151 mg/dL (70-110)
[2023-12-27] MEDS: budesonide 0.5 mg/2 mL Neb INHALATION ×2 (07:49→20:23)
--- NOTE | 2023-12-27 07:50 | PC.HD ---
Dialysis dressing changed prior to treatment initiation. Catheter insertion site and stitching areas remain reddened with no exudate noted. Unchanged from last assessment on 12/25/2023. Triple antibiotic ointment applied to catheter insertion site and new dressing applied.
[2023-12-27] MEDS: sennosides-docusate Tablet 2 TAB PO ×2 (08:28→17:41)
[2023-12-27] MEDS: ferrous sulfate EC 325 mg Tablet PO (08:28)
[2023-12-27] MEDS: hyDRALAzine 50 mg Tablet 100 MG PO ×3 (08:29→20:24)
[2023-12-27] MEDS: gabapentin 100 mg Capsule PO ×2 (08:29→17:41)
[2023-12-27] MEDS: fluoxetine 20 mg Capsule PO (08:30)
--- NOTE | 2023-12-27 09:02 | PM.PN ---
Subjective Subjective: remians on vent Medications: Reviewed: Yes Vitals/I&O/Wt Last Vital Signs Temp 98.2 F 12/27/23 07:48 Pulse 70 12/27/23 07:50 Resp 16 12/27/23 07:54 BP 163/47 12/27/23 07:48 Pulse Ox 97 12/27/23 07:54 O2 Del Method Mechanical Ventilation 12/27/23 07:50 O2 Flow Rate 2 12/19/23 14:00 FiO2 30 12/27/23 08:00 12/26/23 12/27/23 12/27/23 22:59 06:59 14:59 Intake Total 470.370 / 870.250 643.417 / 1513.667 100 / 100 Output Total 50 / 50 Balance 470.370 / 870.250 593.417 / 1463.667 100 / 100 Weight last 48 hrs Weight 147.418 kg Weight 146.465 kg Weight 150.7 kg Physical Exam Narrative: on vent Urinary Catheter Management: Latex Free: Cath Placed During This Visit: yes Reason for Continuing Indwelling Catheter: Accurate Measurement of Urinary Output in Critically Ill Patients Urinary Catheter Date of Insertion: 12/12/23 Urinary Catheter Time of Insertion: 15:39 Data 12/27/23 04:53 12/27/23 04:53 A&P Assessment and plan (1) Acute kidney injury superimposed on chronic kidney disease: Plan 1. Acute on chronic kidney disease stage III: Patient' baseseline creatinine of 1.5-1.9, has multiple ROSEMARIE's in the past. -was on Lasix drip with IV albumin every 8 hours, + metolazone 2.5 mg bid daily-->switched to bumex , with inadequate diuresis . - S/P tunnelled catheter placement and getting HD , HD today -2 g sodium restriction and 1500 mL fluid restriction 2. Anemia: s/p transfusion ,will add BOUCHRA 3. Diastolic CHF, UF as above, echo 4. Acute on chronic respiratory failure, multifactorial, Intubated , patient has history of COPD, LIZ and CHF 5. History of diabetes Patient evaluated using audiovisual cart. Time spent 20 minutes. Attestations Medical Necessity Statement*: per medicine Coding Level of Care Code Acute Code for [facility] Fwd Diagnoses Acute kidney injury superimposed on chronic kidney disease N17.9; N18.9
--- NOTE | 2023-12-27 09:42 | PC.NURSE ---
Tube feeding stopped at approximately at [address] Dasilva.
[2023-12-27 09:48] LABS: Glucose Point of Care 122 mg/dL (70-110)
[2023-12-27] MEDS: heparin 5,000 unit/mL INJ 1 mL 5000 UNIT SUBCUT ×2 (09:56→20:23)
[2023-12-27] MEDS: meropenem 500 MG in sodium chloride 0.9% (plus) 50 ML 100 MG IV ×2 (11:13→21:26)
--- NOTE | 2023-12-27 11:47 | XRR_ITS ---
PROCEDURE INFORMATION: Exam: XR Chest Exam date and time: 12/27/2023 12:43 PM Age: 68 years old Clinical indication: Device placement; Picc; Prior surgery; Surgery date: Post-operative (0-2 days); Additional info: Picc/mid TECHNIQUE: Imaging protocol: Radiologic exam of the chest. Views: 1 view. COMPARISON: CR XR chest 1V portable [id number] 12/26/2023 1:31 PM FINDINGS: Left-sided PICC tip now terminates around the mid SVC. XR/XR chest 1V portable [id number] IMPRESSION: As above.
--- NOTE | 2023-12-27 12:06 | PC.HD ---
At conclusion of HD treatment, heparin 2400 units and 2500 units were instilled into HD catheter arterial and venous ports, respectively.
--- NOTE | 2023-12-27 12:50 | PC.NURSE ---
Previous bustillo removed, new placed per orders per Dr. Styles.
[2023-12-27 14:24] LABS: Glucose Point of Care 137 mg/dL (70-110)
[2023-12-27 15:17] LABS: Blood Gas Allen Test Pos; Blood Gas Operator Identificat CAK; Blood Gas Sample Site Radial, left; Blood Gas Sample Type Arterial; Oxygen Device VENT; PO2 FiO2 Ratio Arterial Blood 0
[2023-12-27 15:27] LABS: ABG PCO2 39.3 mmHg (35-45); ABG PH Result 7.43 (7.35-7.45); Alveolar-Arterial Oxygen Gradi 3.9 mmHg (5-10); Arterial Blood Gas Hematocrit 26.5 % (37-47); Base Excess ABG 1.8 mmol/L (-2.0-2.0); Carboxyhemoglobin 0.5 %THgb (0.4-20.1); HCO3 ABG 26.2 mmol/L (22-26); HGB O2 Sat > 100.0 % (95-100); Ionized Calcium Level - ABG 1.2 mmol/L (1.1-1.4); Methemoglobin < 0.0 % (0.4-1.5); Oxygen Saturation ABG 99.8; Potassium Level - ABG 5.5 mmol/L (3.5-5.0); Total Hemoglobin 8.7 g/dL (12-16)
--- NOTE | 2023-12-27 16:17 | P.PN_ITS ---
Subjective 2 Subjective: Seen multiple times recently. No acute events overnight. Patient has remained hemodynamically stable though with slightly elevated blood pressures. Undergoing hemodialysis today. Overnight PEEP was reduced to 8 with saturation being maintained over 92%. Has remained afebrile. Patient on sedation with fentanyl and propofol right now. Eventually postdialysis sedation was weaned off and patient was successfully extubated to BiPAP at around 3:30 PM. NG tube has been in place. Vitals/I&O/Wt Last Vital Signs Temp 98.5 F 12/27/23 16:00 Pulse 97 12/27/23 16:00 Resp 13 12/27/23 14:15 BP 180/66 12/27/23 16:00 Pulse Ox 100 12/27/23 16:00 O2 Del Method Mechanical Ventilation 12/27/23 13:08 O2 Flow Rate 2 12/19/23 14:00 FiO2 30 12/27/23 15:52 12/27/23 12/27/23 12/27/23 06:59 14:59 22:59 Intake Total 643.417 / 1513.667 578.897 / 578.897 Output Total 50 / 50 3300 / 3300 Balance 593.417 / 1463.667 -2721.103 / -2721.103 Weight last 48 hrs Weight 145.2 kg Weight 147.418 kg Weight 146.465 kg Weight 150.7 kg Physical Exam 2 Narrative: General patient is drowsy but waking up to verbal stimulus, AO x 3 and following commands on BiPAP HEENT normocephalic atraumatic no lymphadenopathy no thyromegaly neck supple Respiratory breath sounds decreased bilaterally no wheezes rubs or rhonchi, mild fine crackles bilateral lower zone Cardiac regular rhythm regular rate heart sounds distant, 1+ pulses in the left lower extremity, right radial pulse 2+ Abdomen normal bowel sounds, obese, distended, edema noted in the lower abdomen especially on the left, abdominal scars with no adipose tissue from previous surgeries noted below the umbilicus, no tenderness to palpation deferred Extremities 1+ edema bilateral lower extremities, 4/5 strength throughout, no pain, normal sensation Neurologic decreased vision on the right, decreased mobility of right upper extremity Urinary Catheter Management: Latex Free: Cath Placed During This Visit: yes, but has since been removed by the nurse Reason for Continuing Indwelling Catheter: Accurate Measurement of Urinary Output in Critically Ill Patients Urinary Catheter Date of Insertion: 12/12/23 Urinary Catheter Time of Insertion: 15:39 Date Urinary Catheter Removed: 12/27/23 Time Urinary Catheter Discontinued: 12:52 Juárez Latex Free: Cath Placed During This Visit: yes Reason for Continuing Indwelling Catheter: Accurate Measurement of Urinary Output in Critically Ill Patients Urinary Catheter Date of Insertion: 12/27/23 Urinary Catheter Time of Insertion: 12:54 Data 12/27/23 04:53 12/27/23 04:53 A&P Assessment and plan (1) SOB (shortness of breath): In setting of congestive heart failure along with severe obstructive sleep apnea in a patient with end-stage renal disease. Successfully extubated to BiPAP on 12/27. Given severe obstructive sleep apnea with COPD and congestive heart failure in setting of CKD stage V patient is at high risk of failure to extubation. Will need to continue to monitor. Sputum culture intubation negative. Pneumonia less likely. Given broad- spectrum antibiotics with Zyvox and meropenem. For now we will continue and finish a 5-day course. Will discontinue antibiotics 24 hours postextubation. Continue DuoNebs every 6 hour, Pulmicort twice daily. Continue to assess for dialysis daily depending on fluid status. (2) ROSEMARIE (acute kidney injury): On CKD stage V. Nephrology recommendations appreciated. Continue with hemodialysis. Temporary hemodialysis catheter in place. Once patient is more hemodynamically stable and extubated most likely patient will need dialysis as an outpatient as well. Case management alerted for possibility of outpatient dialysis. (3) Acute exacerbation of congestive heart failure: Continue dialysis. Reviewed electrolytes. Echocardiogram showed ejection fraction within normal limits right ventricular dilation bilateral atrial enlarged tricuspid regurgitation no pericardial. Most likely diastolic heart failure. Patient takes Bumex 2 mg twice daily at home. Overall around 1200 cc negative since admission. With very poor response to aggressive diuresis with worsening of renal functions. Continue with fluid restriction up to 1500 cc. Strict input charting, daily weights. Juárez catheterization. Juárez to be changed on 12/27 Qualifiers: Heart failure type: unspecified Qualified Code(s): I50.9 - Heart failure, unspecified (4) LIZ (obstructive sleep apnea): Continue BiPAP ventilation overnight. Will plan for repeat ABG in a.m. and break to BiPAP with possibility of transition to heated high flow as possible. (5) Chronic obstructive pulmonary disease, unspecified: Nebulization treatment as above. Qualifiers: COPD type: unspecified COPD Qualified Code(s): J44.9 - Chronic obstructive pulmonary disease, unspecified (6) Anemia: Hemoglobin so far stable. Last transfusion of 12/15. Anemia likely related to chronic kidney disease, autoimmune disease. Continue with Protonix twice daily. Continue with oral iron supplementation. Qualifiers: Anemia type: iron deficiency Iron deficiency anemia type: inadequate dietary iron intake Qualified Code(s): D50.8 - Other iron deficiency anemias (7) Type 2 diabetes mellitus with diabetic chronic kidney disease: Continue with insulin sliding scale. Holding off on long-acting insulin. Insulin sliding scale and blood sugar checks every 6 hours. Qualifiers: Diabetes mellitus joint terminal attack controller insulin use: with joint terminal attack controller use Chronic kidney disease stage: stage 4 (severe) Qualified Code(s): E11.22 - Type 2 diabetes mellitus with diabetic chronic kidney disease; N18.4 - Chronic kidney disease, stage 4 (severe); Z79.4 - penitentiary (current) use of insulin Plan UTI: Complicated UTI with MDRO Klebsiella resistant to all antibiotics except ceramics and and imipenem. Continue with meropenem renally dosed for now. Will need for as needed meropenem dosed postdialysis. Patient remains afebrile and hemodynamically stable for next 48 hours we will discontinue antibiotics. Hypertension: Goal blood pressure less than 140/90 mmHg. Blood pressure is elevated today post extubation and removal of sedation. Continue with hydralazine 100 mg 3 times daily. Will restart Imdur 60 mg twice daily. Will restart other medications as per goal blood pressures. Analgesia: Dilaudid 0.5 every 6 hours as needed, oxycodone 5 mg every 8 hours as needed Glycemic control: Sliding scale every 6 hours Nutrition: Hold off on tube feeds for today. Will restart tube feeds through NG tube in a.m. tomorrow and have speech therapy evaluation. CODE STATUS: Full code PUD prophylaxis: Protonix DVT prophylaxis: Heparin 5000 every 12 hourly Discharge planning: Plan to discharge to possible LTAC. The patient has unsuccessful extubation most likely will plan for tracheostomy and plan for LTAC placement. Discussed with sons at bedside. They are agreeable. Case management alerted. Continue with care at ICU. Plan of treatment discussed in detail with patient's son at bedside along with DPOA/daughter over the phone. All the questions were answered. This documentation was created by [employer] field sales agent software. Every effort was made to ensure accuracy of field sales agent. Any obvious errors or omissions should be clarified with the author of the document. Attestations 2 Medical Necessity Statement*: Requires further hospitalization for management of hypoxic respiratory failure in setting of congestive heart failure postextubation care in a patient with CKD stage V on hemodialysis while safe discharge planning resort Critical Care Time: The high probability of a clinically significant, sudden or life threatening deterioration of the patient's [respiratory, cardiac, renal] system(s) required my full and direct attention, intervention and personal management. The critical care time is as shown. This time is in addition to time spent performing any reported procedures but includes the following: [x] Data and vital sign review and interpretation [x] Patient assessment, examination and intervention [x] Documentation [x] Medication orders and management Critical Care Time (min): 80 Coding Level of Care Code Critical Care >/= 30 minutes Critical care time (in minutes): 80 The high probability of a clinically significant, sudden or life threatening deterioration, as referenced in this documentation, required my full and direct attention, intervention and personal management. The critical care time shown is in addition to time spent performing any reported separately billable procedures and includes the following: [x] Data and vital sign review and interpretation [x ] Patient assessment, examination and intervention [x] Medication orders and management [x] Patient/Family updates as able [x] Care Coordination and Documentation. Other Coding Information This patient has a high probability of clinically significant, sudden or life threatening deterioration of the patient's (neurological/pulmonary/cardiac/renal/ID/endocrine) systems required my full, direct attention, the highest level of physician preparedness for urgent intervention and personal management. I managed/supervised life or organ supporting interventions that required frequent physician assessment. I devoted my full attention in the ICU to the direct care of this patient for the period of time indicated above. Time I spent with family or surrogate(s) is included only if the patient was incapable of providing necessary information or participating in decision making. This time includes the following services provided: Telemetry review Mechanical Ventilation?extubation to BiPAP Hemodynamic interpretation, assessment and management Review and interpretation of CXR Review and interpretation of lab values Review and interpretation of microbiologic data and culture results Review of medications and administration Review and interpretation of Nutrition requirements and management Discussion of management with other consultants and services Clinical update to family members Diagnoses SOB (shortness of breath) R06.02 ROSEMARIE (acute kidney injury) N17.9 Acute exacerbation of congestive heart failure I50.9 Heart failure type: unspecified LZI (obstructive sleep apnea) G47.33 Chronic obstructive pulmonary disease, unspecified COPD type J44.9 COPD type: unspecified COPD Iron deficiency anemia secondary to inadequate dietary iron intake D50.8 Anemia type: iron deficiency Iron deficiency anemia type: inadequate dietary iron intake Type 2 diabetes mellitus with stage 4 chronic kidney disease, with long-term current use of insulin E11.22; N18.4; Z79.4 Diabetes mellitus joint terminal attack controller insulin use: with joint terminal attack controller use Chronic kidney disease stage: stage 4 (severe)
--- NOTE | 2023-12-27 16:19 | PC.NURSE ---
Addendum entered by Esme Matute RN 12/27/23 16:19: pt extubated at 1600. Original Note: Pt extubated by RT per Dr. Styles's orders. Currently on bipap.
[2023-12-27 17:03] LABS: Glucose Point of Care 132 mg/dL (70-110)
[2023-12-27] MEDS: isosorbide mononitrate ER 60 mg Tablet PO (17:41)
--- NOTE | 2023-12-27 17:48 | PC.NURSE ---
Addendum entered by JOHAN Bradley 12/27/23 18:06: Witnessed waste of fentanyl and propofol with BLAKE Victoria. Original Note: WASTE: Fentanyl waste of 55.583 mLs and propofol waste of 15.52 mLs witnessed by Jaleel LOZANO
--- NOTE | 2023-12-27 20:49 | P.PN_ITS ---
Subjective 2 Subjective: Patient underwent hemodialysis Chest x-ray showed improvement in infiltrates On minimal sedation she was following commands Tolerated breathing trial Successfully extubated to BiPAP Medications: Reviewed: Yes Medication Review Details: Current Medications Albuterol/Ipratropium (Ipratropium-Albuterol 3 Ml Neb) 3 ml INHALATION Q6H.RESP HERMINIO Last Admin: 12/19/23 15:54 Dose: 3 ml Alprazolam (Alprazolam 0.5 Mg Tablet) 0.5 mg PO TID PRN PRN Reason: ANXIETY Last Admin: 12/17/23 16:39 Dose: 0.5 mg Amlodipine Besylate (Amlodipine 10 Mg Tablet) 10 mg PO DAILY [facility] Last Admin: 12/19/23 08:18 Dose: 10 mg Atorvastatin Calcium (Atorvastatin 40 Mg Tablet) 20 mg PO BEDTIME [facility] Last Admin: 12/18/23 20:50 Dose: 20 mg Benzocaine (Cetylpyridinium Lozenge) 1 each MUCOUS MEM Q2H PRN PRN Reason: SORE THROAT Last Admin: 12/17/23 08:38 Dose: 1 each Budesonide (Budesonide 0.5 Mg/2 Ml Neb) 0.5 mg INHALATION BID.RESPIRATORY [facility] Last Admin: 12/19/23 07:38 Dose: 0.5 mg Chlorhexidine Gluconate (Chlorhexidine Gluconate 4% Btl 118 Ml) 1 applic TOPICAL BID [facility] Cyclobenzaprine HCl (Cyclobenzaprine 10 Mg Tablet) 10 mg PO TID PRN PRN Reason: MUSCLE SPASMS Last Admin: 12/17/23 08:38 Dose: 10 mg Dextrose (Dextrose 50% Syringe 50 Ml) 25 ml IVP ONCE PRN; Protocol PRN Reason: hypoglycemia protocol Dextrose (Dextrose 50% Syringe 50 Ml) 50 ml IVP PRN PRN; Protocol PRN Reason: hypoglycemia protocol Ferrous Sulfate (Ferrous Sulfate Ec 325 Mg Tablet) 325 mg PO DAILY [facility] Last Admin: 12/19/23 08:18 Dose: 325 mg Fluoxetine HCl (Fluoxetine 20 Mg Capsule) 20 mg PO DAILY [facility] Last Admin: 12/19/23 08:18 Dose: 20 mg Gabapentin (Gabapentin 100 Mg Capsule) 100 mg PO BID [facility] Last Admin: 12/19/23 08:18 Dose: 100 mg Hydralazine HCl (Hydralazine 50 Mg Tablet) 50 mg PO TID [facility] Last Admin: 12/19/23 14:18 Dose: 50 mg Hydromorphone HCl (Hydromorphone 1 Mg/Ml Inj 1 Ml) 0.5 mg IVP Q6H PRN PRN Reason: PAIN Last Admin: 12/19/23 16:15 Dose: 0.5 mg Dextrose (D5w) 500 mls @ 0 mls/hr IV ONCE PRN; Protocol PRN Reason: Adult Acute Hypoglycemia Prot Albumin Human (Albumin) 25 g in 100 mls @ 60 mls/hr IV Q8H [facility] Last Infusion: 12/19/23 16:14 Dose: Infused Insulin Glargine (Insulin Glargine 100 Units/1 Ml) 20 unit SUBCUT DAILY [facility] Last Admin: 12/19/23 08:18 Dose: 20 unit Insulin Human Lispro (Insulin Lispro 100 Unit/1 Ml) 0 unit SUBCUT WM&BEDTIME [facility]; Protocol Last Admin: 12/19/23 17:03 Dose: Not Given Isosorbide Mononitrate (Isosorbide Mononitrate Er 60 Mg Tablet) 60 mg PO BID [facility] Last Admin: 12/19/23 08:18 Dose: 60 mg Naloxone HCl (Naloxone 0.4 Mg/Ml Sdv) 0.4 mg IVP PRN PRN PRN Reason: RESPIRATORY RATE < 8/MIN Nystatin (Nystatin Powder 30 Gm Btl) 1 applic TOPICAL BID [facility] Last Admin: 12/19/23 09:19 Dose: Not Given Ondansetron HCl (Ondansetron 2 Mg/Ml Sdv 2 Ml) 4 mg IVP Q6H PRN PRN Reason: vomiting, or N/V if npo Oxycodone HCl (Oxycodone 5 Mg Ir Tab/Cap) 10 mg PO Q8H PRN PRN Reason: MODERATE PAIN Last Admin: 12/19/23 11:13 Dose: 10 mg Pantoprazole Sodium (Pantoprazole Dr 40 Mg Tablet) 40 mg PO BID [facility] Last Admin: 12/19/23 08:18 Dose: 40 mg Senna/Docusate Sodium (Sennosides-Docusate Tablet) 2 tab PO BID [facility] Last Admin: 12/19/23 08:18 Dose: 2 tab Trazodone HCl (Trazodone 100 Mg Tablet) 100 mg PO BEDTIME [facility] Last Admin: 12/18/23 20:50 Dose: 100 mg Vitals/I&O/Wt Last Vital Signs Temp 98.6 F 12/27/23 20:00 Pulse 92 12/27/23 20:26 Resp 14 12/27/23 20:26 BP 173/82 12/27/23 20:00 Pulse Ox 91 12/27/23 20:26 O2 Del Method BiPAP 12/27/23 20:26 O2 Flow Rate 2 12/19/23 14:00 FiO2 30 12/27/23 20:26 12/27/23 12/27/23 12/27/23 06:59 14:59 22:59 Intake Total 643.417 / 1513.667 578.897 / 578.897 0 / 578.897 Output Total 50 / 50 3300 / 3300 200 / 3500 Balance 593.417 / 1463.667 -2721.103 / -2721.103 -200 / -2921.103 Weight last 48 hrs Weight 320 lb 1.779 oz Weight 325 lb Weight 322 lb 14.4 oz Physical Exam 2 Narrative: PHYSICAL EXAM: General: lying in bed, sedated and intubated. HEENT:NCAT, PERRLA, EOMI Neck: Supple Lungs: Bilateral diffuse crackles Heart: s1/s2, RRR Abd: soft, NT, ND, BS + Normoactive Extremities: 2+ pitting pedal edema WOOD GOUGER: sedated and limited WOOD GOUGER exam possible. SKIN: no rash LDA: # HD Cath : 12/19/2023 right IJ permacath Urinary Catheter Management: Latex Free: Cath Placed During This Visit: yes, but has since been removed by the nurse Reason for Continuing Indwelling Catheter: Accurate Measurement of Urinary Output in Critically Ill Patients Urinary Catheter Date of Insertion: 12/12/23 Urinary Catheter Time of Insertion: 15:39 Date Urinary Catheter Removed: 12/27/23 Time Urinary Catheter Discontinued: 12:52 Juárez Latex Free: Cath Placed During This Visit: yes Reason for Continuing Indwelling Catheter: Accurate Measurement of Urinary Output in Critically Ill Patients Urinary Catheter Date of Insertion: 12/27/23 Urinary Catheter Time of Insertion: 12:54 Data 12/28/23 04:46 12/28/23 06:25 Other Labs: Radiology Impressions Venous Duplex 12/19/23 15:40 IMPRESSION: No evidence of deep vein thrombosis. Chest X-Ray 12/28/23 06:00 IMPRESSION: No significant change. Laboratory Results WBC 10.84 10^3/uL (3.29-11.43) 12/28/23 04:46 RBC 3.01 10^6/uL (3.85-5.65) L 12/28/23 04:46 Hgb 8.70 g/dL (11.27-16.99) L 12/28/23 04:46 Hct 27.8 % (36-47) L 12/28/23 04:46 MCV 92.4 fl (85-98) 12/28/23 04:46 MCH 28.9 pg (27-33) 12/28/23 04:46 MCHC 31.3 g/dL (30-55) 12/28/23 04:46 RDW 16.0 % (12.1-15.1) H 12/28/23 04:46 Plt Count 169 10^3/cmm (157-399) 12/28/23 04:46 MPV 9.3 fL (7.4-10.4) 12/28/23 04:46 Neut % (Auto) 72.8 % 12/28/23 04:46 Lymph % (Auto) 6.9 % 12/28/23 04:46 Colbert % (Auto) 12.1 % 12/28/23 04:46 Eos % (Auto) 5.3 % 12/28/23 04:46 Baso % (Auto) 1.0 % 12/28/23 04:46 Neut # (Auto) 7.89 10^3/uL (1.8-7.7) H 12/28/23 04:46 Lymph # (Auto) 0.8 10^3/uL (0.8-4.8) 12/28/23 04:46 Colbert # (Auto) 1.3 10^3/uL (0.2-0.9) H 12/28/23 04:46 Eos # (Auto) 0.6 10^3/uL (0.0-0.8) 12/28/23 04:46 Baso # (Auto) 0.1 10^3/uL (0.0-0.1) 12/28/23 04:46 Nucleated RBC % (auto) 0 % 12/28/23 04:46 Nucleated RBCs # 0.0 /100WBC 12/28/23 04:46 PT 15.70 SECONDS (12.1-14.9) H 12/12/23 14:58 INR 1.21 (0.8-1.2) H 12/12/23 14:58 Specimen Type Arterial 12/28/23 06:25 Sample Site Brachial, right 12/28/23 03:35 ABG pH 7.37 (7.35-7.45) 12/28/23 03:35 ABG pCO2 46.1 mmHg (35-45) H 12/28/23 03:35 ABG pO2 46.0 mmHg (80.0-100.0) L 12/28/23 03:35 ABG PO2/FiO2 Ratio 0 12/28/23 03:35 ABG HCO3 26.8 mmol/L (22-26) H 12/28/23 03:35 ABG O2 Saturation 86.4 12/28/23 03:35 ABG Base Excess 1.3 mmol/L (-2.0-2.0) 12/28/23 03:35 Sharad Test Pos 12/28/23 06:25 VBG pH 7.37 (7.32-7.42) 12/28/23 06:25 VBG pCO2 45.2 mmHg (41-51) 12/28/23 06:25 VBG pO2 148.0 mmHg (25-40) H 12/28/23 06:25 VBG HCO3 26.1 mmol/L (24-28) 12/28/23 06:25 VBG Base Excess 0.6 mmol/L (-3.0-3.0) 12/28/23 06:25 VBG Hematocrit 27.5 % (37-47) L 12/28/23 06:25 A-a O2 Gradient 14.6 mmHg (5-10) H 12/28/23 03:35 Hematocrit 27.7 % (37-47) L 12/28/23 03:35 Hgb O2 Saturation 84.3 % (95-100) L 12/28/23 03:35 Carboxyhemoglobin 1.6 %THgb (0.4-20.1) 12/28/23 03:35 Methemoglobin 0.8 % (0.4-1.5) 12/28/23 03:35 Total Hemoglobin 9.0 g/dL (12-16) L 12/28/23 03:35 Sodium 139.0 mmol/L (131-143) 12/28/23 03:35 Potassium 3.6 mmol/L (3.5-5.0) 12/28/23 03:35 Glucose 114.0 mg/dL (70-115) 12/28/23 03:35 Ionized Calcium 1.3 mmol/L (1.1-1.4) 12/28/23 03:35 O2 Delivery Device Bipap 12/28/23 06:25 O2 Liters/Min 2.0 % 12/17/23 11:20 FiO2 40.0 % 12/28/23 06:25 Tidal Volume 0.41 12/24/23 04:25 PEEP 8.0 cmH20 12/27/23 15:06 Security Threat Analyst ID [email or web address] 12/28/23 06:25 Sodium 135 mmol/L (136-145) L 12/28/23 06:25 Potassium 3.8 mmol/L (3.5-5.1) 12/28/23 06:25 Chloride 95 mmol/L (98-107) L 12/28/23 06:25 Carbon Dioxide 24 mmol/L (22-29) 12/28/23 06:25 Anion Gap 19.8 (5-19) H 12/28/23 06:25 BUN 21 mg/dL (8-23) 12/28/23 06:25 Creatinine 2.5 mg/dL (0.5-0.9) H 12/28/23 06:25 GFR Calculation 19.3 mL/min (90-130) L 12/28/23 06:25 Glucose 120 mg/dL (65-115) H 12/28/23 06:25 POC Glucose 132 mg/dL (70-110) H 12/27/23 17:00 Calculated Osmolality 284 mOsm/kg (285-295) L 12/28/23 06:25 Calcium 9.4 mg/dL (8.5-10.5) 12/28/23 06:25 Magnesium 2.8 mg/dL (1.7-2.3) H 12/17/23 03:05 Total Bilirubin 0.3 mg/dL (0.15-1.2) 12/28/23 06:25 AST 75 U/L (0-32) H 12/28/23 06:25 ALT 28 U/L (0-33) 12/28/23 06:25 Alkaline Phosphatase 83 U/L (35-105) 12/28/23 06:25 Creatine Kinase 38 U/L (26-192) 12/19/23 04:09 Troponin T Baseline 73 ng/L (0-10) H 12/12/23 14:58 Troponin T 120 Minute 70.53 ng/L (0-10) H 12/12/23 16:53 Delta Troponin T -2.47 ABS# (0-10) L 12/12/23 16:53 Troponin T Hi Sens 6Hr 70.55 ng/L (0-10) H 12/12/23 20:29 Troponin T Hi Sens 6Hr Delta -2.45 ng/L (0-12) L 12/12/23 20:29 NT-Pro-B Natriuret Pep 9694 pg/mL (0-125) H 12/12/23 14:58 Total Protein 6.8 g/dL (6.6-8.7) 12/28/23 06:25 Albumin 3.6 g/dL (3.5-5.2) 12/28/23 06:25 Globulin 3.2 g/dL (1.3-4.6) 12/28/23 06:25 Urine Color Yellow (Yellow) 12/17/23 12:30 Urine Appearance Clear (CLEAR) 12/17/23 12:30 Urine pH 5 (5-7) 12/17/23 12:30 Ur Specific [place] 1.010 (1.005-1.030) 12/17/23 12:30 Urine Protein Trace (Negative) 12/17/23 12:30 Urine Glucose (UA) Norm (Normal) 12/17/23 12:30 Urine Ketones Negative (Negative) 12/17/23 12:30 Urine Blood 3+ (Negative) H 12/17/23 12:30 Urine Nitrate Negative (Negative) 12/17/23 12:30 Urine Bilirubin Neg (Negative) 12/17/23 12:30 Urine Urobilinogen Norm mg/dL (Negative) 12/17/23 12:30 Ur Leukocyte Esterase Negative (Negative) 12/17/23 12:30 Urine RBC 25-40 /hpf (0-2) H 12/17/23 12:30 Urine WBC 5-10 /hpf (0-5) H 12/17/23 12:30 Ur Squamous Epith Cells 0-4 /hpf (0-5) H 12/17/23 12:30 Amorphous Sediment Not Reportable 12/17/23 12:30 Urine Bacteria 2+ /hpf (NONE) H 12/17/23 12:30 Hyaline Casts 0-4 /lpf H 12/17/23 12:30 Ur Random Sodium 57 mmol/L 12/17/23 12:30 Ur Random Potassium 60 mmol/L 12/17/23 12:30 Ur Random Chloride 96 mmol/L 12/17/23 12:30 Urine Creatinine 47 mg/dL (28-217) 12/17/23 12:30 Hep Bs Antigen Non-reactive (Nonreactive) 12/20/23 06:04 Hep Bs Antibody 5.5 (11.5-1000) L 12/20/23 06:04 Hep B Core Total Ab Non-reactive (Nonreactive) 12/20/23 06:04 MRSA (PCR) Not detected (NOT DETECTED) 12/22/23 21:25 Blood Type B Positive 12/15/23 07:46 Rho(D) Type Rh positive 12/15/23 07:46 Antibody Screen Negative 12/15/23 07:46 Crossmatch See Detail 12/15/23 07:46 A&P Assessment and plan (1) Difficult ventilator weaning: (2) LIZ (obstructive sleep apnea): (3) Acute on chronic diastolic (congestive) heart failure: (4) Acute kidney injury superimposed on chronic kidney disease: (5) UTI due to Klebsiella species: (6) Goals of care, counseling/discussion: Plan # Acute respiratory failure secondary to fluid overload due to acute on chronic diastolic heart failure/acute on chronic kidney disease -She is started on hemodialysis-net -16 L so far -Following commands on minimal sedation -Infiltrates on chest x-ray are improving -On minimal sedation she was following commands -Tolerated breathing trial - Successfully extubated to BiPAP -Patient is currently on meropenem for Klebsiella pneumonia in urine cultures- -Hemodynamically stable with no pressor requirements -Postextubation-continue PT OT/tube feeding until she has swallow evaluation # Sugars [id number] insulin glargine and scale coverage ICU CHECKLIST: Problem list updated Verbal orders reviewed and signed Code Status: Full Disposition: ICU Critically ill: Yes MD discussed with: hospitalist, RN, RT Analgesia: Yes Glycemic Control: Insulin Nutrition: NG feeding, held for possible extubation-restart NG feed postextubation until swallow evaluation Restraint Renewal (within 24 hrs): Yes Ulcer Prophylaxis: PPI Chemical Thromboprophylaxis: Prophylaxis: Heparin Mechanical Thromboprophylaxis: SCDs Need for Central line: No Need for Juárez catheter: Yes Attestations 2 Medical Necessity Statement*: May need 24 to 48 hours monitoring for postextubation and can transfer to stepdown/floor Time Spent in Patient Care: Greater than 35 minutes (>than 50% of time spent in counselling and/or direct pt care on unit) . Critical Care Time: This patient has a high probability of clinically significant, sudden or life threatening deterioration of the patient's (cardiac, pulmonary, renal, neurological) systems required my full, direct attention, the highest level of physician preparedness for urgent intervention and personal management. I managed/supervised life or organ supporting interventions that required frequent physician assessment. I devoted my full attention in the ICU to the direct care of this patient for the period of time indicated above. Time I spent with family or surrogate(s) is included only if the patient was incapable of providing necessary information or participating in decision making. This time includes the following services provided: Telemetry review Mechanical Ventilation Hemodynamic interpretation, assessment and management Review and interpretation of CXR Review and interpretation of lab values Review and interpretation of microbiologic data and culture results Review of medications and administration Review and interpretation of Nutrition requirements and management Discussion of management with other consultants and services Clinical update to family members [x] Data and vital sign review and interpretation [x] Patient assessment, examination and intervention [x] Documentation [x] Medication orders and management Critical Care Time (min): 52 Coding Level of Care Code Acute Code for Chg Fwd Diagnoses Difficult ventilator weaning Z99.11 LIZ (obstructive sleep apnea) G47.33 Acute on chronic diastolic (congestive) heart failure I50.33 Acute kidney injury superimposed on chronic kidney disease N17.9; N18.9 UTI due to Klebsiella species N39.0; B96.89 Goals of care, counseling/discussion Z71.89 Time Spent (min) 52
[2023-12-27] MEDS: ALPRAZolam 0.5 mg Tablet PO (22:11)
--- NOTE | 2023-12-27 22:14 | PC.NURSE ---
Patient very restless and keeps repeating I want to go home . Educated patient on plan of care and attempted to calm patient. Respiratory rate elevated in the 30's, remains on bipap. Xanax 0.5mg given per NG tube.
[2023-12-28] VITALS (32 sets, daily range): BP systolic 130–183; BP diastolic 52–82; PULSE 88–100; RESP 13–30; TEMP 37–38.1; O2SAT 87–100
[2023-12-28] MEDS: ipratropium-albuterol 3 mL Neb INHALATION ×4 (03:02→20:37)
[2023-12-28 03:39] LABS: ABG PCO2 46.1 mmHg (35-45); ABG PH Result 7.37 (7.35-7.45); Alveolar-Arterial Oxygen Gradi 14.6 mmHg (5-10); Arterial Blood Gas Hematocrit 27.7 % (37-47); Base Excess ABG 1.3 mmol/L (-2.0-2.0); Blood Gas Allen Test Pos; Blood Gas Sample Site Brachial, right; Blood Gas Sample Type Arterial; Carboxyhemoglobin 1.6 %THgb (0.4-20.1); HCO3 ABG 26.8 mmol/L (22-26); HGB O2 Sat 84.3 % (95-100); Ionized Calcium Level - ABG 1.3 mmol/L (1.1-1.4); Methemoglobin 0.8 % (0.4-1.5); Oxygen Device BIPAP; Oxygen Saturation ABG 86.4; PO2 FiO2 Ratio Arterial Blood 0; Potassium Level - ABG 3.6 mmol/L (3.5-5.0)
[2023-12-28 05:07] LABS: Basophils # 0.1 10^3/uL (0.0-0.1); Eosinophils # 0.6 10^3/uL (0.0-0.8); Eosinophils % 5.3 %; Hematocrit 27.8 % (36-47); Lymphocytes # 0.8 10^3/uL (0.8-4.8); Lymphocytes % 6.9 %; Mean Corpuscular HGB Conc 31.3 g/dL (30-55); Mean Corpuscular Hemoglobin 28.9 pg (27-33); Mean Corpuscular Volume 92.4 fl (85-98); Mean Platelet Volume 9.3 fL (7.4-10.4); Monocytes # 1.3 10^3/uL (0.2-0.9); Monocytes % 12.1 %; Neutrophils # 7.89 10^3/uL (1.8-7.7); Neutrophils % 72.8 %; Nucleated Red Blood Cells % 0 %; Platelet Count 169 10^3/cmm (157-399); Red Blood Count 3.01 10^6/uL (3.85-5.65); White Blood Count 10.84 10^3/uL (3.29-11.43)
--- NOTE | 2023-12-28 06:00 | XRR_ITS ---
PROCEDURE INFORMATION: Exam: XR Chest Exam date and time: 12/28/2023 6:07 AM Age: 68 years old Clinical indication: Other: Chf TECHNIQUE: Imaging protocol: Radiologic exam of the chest. Views: 1 view. COMPARISON: CR XR chest 1V portable [id number] 12/27/2023 12:43 PM FINDINGS: Tubes, catheters and devices: The endotracheal tube is no longer seen. The multi lumen catheter, PICC line, and gastric tube are unchanged. Lungs: Extensive stable bilateral infiltrates. Pleural spaces: Unremarkable. No pleural effusion. No pneumothorax. Heart/Mediastinum: No change in the heart or mediastinum. Bones/joints: Unremarkable. XR/XR chest 1V portable [id number] IMPRESSION: No significant change.
[2023-12-28] MEDS: pantoprazole 40 mg SDV IVP ×2 (06:08→17:28)
[2023-12-28 06:38] LABS: Base Excess VBG 0.6 mmol/L (-3.0-3.0); Blood Gas Allen Test Pos; Blood Gas Sample Type Arterial; HCO3 VBG 26.1 mmol/L (24-28); Oxygen Device BIPAP; PCO2 VBG 45.2 mmHg (41-51); Venous Blood Gas Hematocrit 27.5 % (37-47); pH VBG 7.37 (7.32-7.42)
--- NOTE | 2023-12-28 06:38 | PC.NURSE ---
Patient noted to be unresponsive. Blood glucose 110. Notified Dr. Ordoñez of change in patients condition, current blood glucose of 110 and C02 on ABG done at 0335 of 46.1. Order given to do VBG now and depending on the results a head CT may have to be done. VBG drawn and given to RT.
--- NOTE | 2023-12-28 06:55 | PC.NURSE ---
Notified Dr. Ordoñez of ABG results and that patient is waking up a little. No further orders given.
[2023-12-28 06:58] LABS: Alanine Aminotransferase 28 U/L (0-33); Albumin Level 3.6 g/dL (3.5-5.2); Alkaline Phosphatase 83 U/L (35-105); Anion Gap 19.8 (5-19); Aspartate Amino Transferase 75 U/L (0-32); Blood Urea Nitrogen 21 mg/dL (8-23); Calcium 9.4 mg/dL (8.5-10.5); Carbon Dioxide 24 mmol/L (22-29); Chloride 95 mmol/L (98-107); Globulin 3.2 g/dL (1.3-4.6); Glomerular Filtration Rate 19.3 mL/min (90-130); Glucose 120 mg/dL (65-115); Osmolality Calculated 284 mOsm/kg (285-295); Potassium 3.8 mmol/L (3.5-5.1); Sodium 135 mmol/L (136-145); Total Bilirubin 0.3 mg/dL (0.15-1.2); Total Protein 6.8 g/dL (6.6-8.7)
[2023-12-28] MEDS: budesonide 0.5 mg/2 mL Neb INHALATION ×2 (07:48→20:37)
--- NOTE | 2023-12-28 08:29 | P.PN_ITS ---
Subjective 2 Subjective: Patient was extubated yesterday and was placed on BiPAP, Medications: Reviewed: Yes Vitals/I&O/Wt Last Vital Signs Temp 99.1 F 12/28/23 07:00 Pulse 90 12/28/23 08:00 Resp 19 H 12/28/23 08:00 BP 131/52 12/28/23 08:00 Pulse Ox 96 12/28/23 07:51 O2 Del Method BiPAP 12/28/23 07:51 O2 Flow Rate 2 12/19/23 14:00 FiO2 30 12/28/23 08:00 12/27/23 12/28/23 12/28/23 22:59 06:59 14:59 Intake Total 100 / 678.897 40 / 718.897 0 / 0 Output Total 200 / 3500 50 / 3550 Balance -100 / -2821.103 -10 / -2831.103 0 / 0 Weight last 48 hrs Weight 146.057 kg Weight 145.2 kg Weight 147.418 kg Physical Exam 2 Narrative: On BiPAP Urinary Catheter Management: Latex Free: Cath Placed During This Visit: yes, but has since been removed by the nurse Reason for Continuing Indwelling Catheter: Accurate Measurement of Urinary Output in Critically Ill Patients Urinary Catheter Date of Insertion: 12/12/23 Urinary Catheter Time of Insertion: 15:39 Date Urinary Catheter Removed: 12/27/23 Time Urinary Catheter Discontinued: 12:52 Juárez Latex Free: Cath Placed During This Visit: yes Reason for Continuing Indwelling Catheter: Accurate Measurement of Urinary Output in Critically Ill Patients Urinary Catheter Date of Insertion: 12/27/23 Urinary Catheter Time of Insertion: 12:54 Data 12/28/23 04:46 12/28/23 06:25 A&P Assessment and plan (1) Acute kidney injury superimposed on chronic kidney disease: Plan 1. Acute on chronic kidney disease stage III: Patient' baseseline creatinine of 1.5-1.9, has multiple ROSEMARIE's in the past. -was on Lasix drip with IV albumin every 8 hours, + metolazone 2.5 mg bid daily-->switched to bumex , with inadequate diuresis . - S/P tunnelled catheter placement and getting HD , HD done as today, assess daily for HD needs - PRN IV Lasix -2 g sodium restriction and 1500 mL fluid restriction 2. Anemia: s/p transfusion ,will add BOUCHRA 3. Diastolic CHF, UF as above, echo 4. Acute on chronic respiratory failure, multifactorial, Intubated , patient has history of COPD, LIZ and CHF--> extubated on 12/27/2023, currently on BiPAP 5. History of diabetes Patient evaluated using audiovisual cart. Time spent 20 minutes. Attestations 2 Medical Necessity Statement*: Per medicine team Coding Level of Care Code Acute Code for Chg Fwd Diagnoses Acute kidney injury superimposed on chronic kidney disease N17.9; N18.9
[2023-12-28] MEDS: hyDRALAzine 50 mg Tablet 100 MG PO ×3 (09:03→20:00)
[2023-12-28] MEDS: sennosides-docusate Tablet 2 TAB PO ×2 (09:04→17:28)
[2023-12-28] MEDS: ferrous sulfate EC 325 mg Tablet PO (09:04)
[2023-12-28] MEDS: gabapentin 100 mg Capsule PO ×2 (09:04→17:28)
[2023-12-28] MEDS: isosorbide mononitrate ER 60 mg Tablet PO ×2 (09:04→17:28)
[2023-12-28] MEDS: fluoxetine 20 mg Capsule PO (09:04)
[2023-12-28] MEDS: heparin 5,000 unit/mL INJ 1 mL 5000 UNIT SUBCUT ×2 (09:04→21:26)
[2023-12-28] MEDS: FUROsemide 10 mg/mL SDV 10mL 60 MG IVP (09:05)
[2023-12-28 10:44] LABS: Glucose Point of Care 126 mg/dL (70-110)
[2023-12-28 12:29] LABS: Glucose Point of Care 110 mg/dL (70-110)
[2023-12-28 12:29] LABS: Glucose Point of Care 109 mg/dL (70-110)
[2023-12-28 12:29] LABS: Glucose Point of Care 130 mg/dL (70-110)
--- NOTE | 2023-12-28 14:40 | P.PN_ITS ---
Subjective 2 Subjective: Patient was successfully extubated to BiPAP yesterday. Overnight as per the nursing staff patient was somnolent. Today morning seen on nasal cannula 2 L saturating 90%. Patient is awake though not alert, following some commands, asking for water. Has remained hemodynamically stable and afebrile. During today patient has been awake on and off. NG tube in place. Vitals/I&O/Wt Last Vital Signs Temp 99.1 F 12/28/23 07:00 Pulse 95 12/28/23 13:18 Resp 16 12/28/23 13:18 BP 137/55 12/28/23 13:00 Pulse Ox 95 12/28/23 13:18 O2 Del Method BiPAP 12/28/23 13:18 O2 Flow Rate 2 12/19/23 14:00 FiO2 30 12/28/23 13:18 12/27/23 12/28/23 12/28/23 22:59 06:59 14:59 Intake Total 100 / 678.897 40 / 718.897 0 / 0 Output Total 200 / 3500 50 / 3550 Balance -100 / -2821.103 -10 / -2831.103 0 / 0 Weight last 48 hrs Weight 146.057 kg Weight 145.2 kg Weight 147.418 kg Physical Exam 2 Narrative: General patient is drowsy but waking up to verbal stimulus, following simple commands on BiPAP and nasal cannula HEENT normocephalic atraumatic no lymphadenopathy no thyromegaly neck supple, dry chapped lips Respiratory breath sounds decreased bilaterally no wheezes rubs or rhonchi, mild fine crackles bilateral lower zone Cardiac regular rhythm regular rate heart sounds distant, 1+ pulses in the left lower extremity, right radial pulse 2+ Abdomen normal bowel sounds, obese, distended, edema noted in the lower abdomen especially on the left, abdominal scars with no adipose tissue from previous surgeries noted below the umbilicus, no tenderness to palpation deferred Extremities 1+ edema bilateral lower extremities, 4/5 strength throughout, no pain, normal sensation Neurologic decreased vision on the right, decreased mobility of right upper extremity Urinary Catheter Management: Latex Free: Cath Placed During This Visit: yes, but has since been removed by the nurse Reason for Continuing Indwelling Catheter: Accurate Measurement of Urinary Output in Critically Ill Patients Urinary Catheter Date of Insertion: 12/12/23 Urinary Catheter Time of Insertion: 15:39 Date Urinary Catheter Removed: 12/27/23 Time Urinary Catheter Discontinued: 12:52 Juárez Latex Free: Cath Placed During This Visit: yes Reason for Continuing Indwelling Catheter: Accurate Measurement of Urinary Output in Critically Ill Patients Urinary Catheter Date of Insertion: 12/27/23 Urinary Catheter Time of Insertion: 12:54 Data 12/28/23 04:46 12/28/23 06:25 A&P Assessment and plan (1) Acute metabolic encephalopathy: Most likely in setting of prolonged intubation requiring fentanyl and propofol. Patient did receive Xanax as well overnight. Hold off on any further Xanax. Will limit the pain medications. Discontinue IV pain medications continue with oral as needed. Continue with Prozac. Hold off on trazodone. Continue with gabapentin at 100 mg twice daily. PT/OT/speech evaluation. (2) SOB (shortness of breath): In setting of congestive heart failure along with severe obstructive sleep apnea in a patient with end-stage renal disease. Successfully extubated to BiPAP on 12/27. Given severe obstructive sleep apnea with COPD and congestive heart failure in setting of CKD stage V patient is at high risk of failure to extubation. Will need to continue to monitor. Sputum culture at the time of intubation negative. Pneumonia less likely. Given broad-spectrum antibiotics with Zyvox and meropenem. Will discontinue antibiotics. Last day of meropenem 0 12/28. Continue DuoNebs every 6 hour, Pulmicort twice daily. Continue to assess for dialysis daily depending on fluid status. (3) ROSEMARIE (acute kidney injury): On CKD stage V. Nephrology recommendations appreciated. Continue with hemodialysis. Temporary hemodialysis catheter in place. Once patient is more hemodynamically stable and extubated most likely patient will need dialysis as an outpatient as well. Case management alerted for possibility of outpatient dialysis. (4) Acute exacerbation of congestive heart failure: Continue dialysis. Reviewed electrolytes. Echocardiogram showed ejection fraction within normal limits right ventricular dilation bilateral atrial enlarged tricuspid regurgitation no pericardial. Most likely diastolic heart failure. Patient takes Bumex 2 mg twice daily at home. Overall around 1200 cc negative since admission. With very poor response to aggressive diuresis with worsening of renal functions. Continue with fluid restriction up to 1500 cc. Strict input charting, daily weights. Juárez catheterization. Juárez to be changed on 12/27 Qualifiers: Heart failure type: unspecified Qualified Code(s): I50.9 - Heart failure, unspecified (5) LIZ (obstructive sleep apnea): Continue BiPAP ventilation overnight. Will plan for repeat ABG in a.m. and break to BiPAP with possibility of transition to heated high flow as possible. (6) Chronic obstructive pulmonary disease, unspecified: Nebulization treatment as above. Qualifiers: COPD type: unspecified COPD Qualified Code(s): J44.9 - Chronic obstructive pulmonary disease, unspecified (7) Anemia: Hemoglobin so far stable. Last transfusion of 12/15. Anemia likely related to chronic kidney disease, autoimmune disease. Continue with Protonix twice daily. Continue with oral iron supplementation. Qualifiers: Anemia type: iron deficiency Iron deficiency anemia type: inadequate dietary iron intake Qualified Code(s): D50.8 - Other iron deficiency anemias (8) Type 2 diabetes mellitus with diabetic chronic kidney disease: Continue with insulin sliding scale. Holding off on long-acting insulin. Insulin sliding scale and blood sugar checks every 6 hours. 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 Continue with meropenem renally dosed for now. Will need for as needed meropenem dosed postdialysis. Antibiotic discontinued on 12/28. Hypertension: Goal blood pressure less than 140/90 mmHg. Blood pressure is elevated today post extubation and removal of sedation. Continue with hydralazine 100 mg 3 times daily, Imdur 60 mg twice daily. Will restart other medications as per goal blood pressures. Analgesia:oxycodone 5 mg every 8 hours as needed, 0.2 IV Dilaudid every 6 as needed Glycemic control: Sliding scale every 6 hours Nutrition: Tube feeds with Nepro at 10 cc/h increase 10 cc every 4 hour with goal of 50 cc/h, free water flushes 100 cc every 8 hours. CODE STATUS: Full code PUD prophylaxis: Protonix DVT prophylaxis: Heparin 5000 every 12 hourly PT/OT/speech evaluation. Discharge planning: Plan to discharge to possible LTAC. The patient has unsuccessful extubation most likely will plan for tracheostomy and plan for LTAC placement. Discussed with sons at bedside. They are agreeable. Case management alerted. Continue with care at ICU. This documentation was created by [facility] pediatric clinical nurse specialist software. Every effort was made to ensure accuracy of pediatric clinical nurse specialist. Any obvious errors or omissions should be clarified with the author of the document. Attestations 2 Medical Necessity Statement*: Requires further hospitalization for management of metabolic encephalopathy in setting of prolonged intubation postextubation with a last 24 hours for respiratory failure in setting of congestive heart failure in a patient with CKD on hemodialysis now, physical deconditioning while safe discharge planning is sought. Diagnoses Acute metabolic encephalopathy G93.41 SOB (shortness of breath) R06.02 ROSEMARIE (acute kidney injury) N17.9 Acute exacerbation of congestive heart failure I50.9 Heart failure type: unspecified LIZ (obstructive sleep apnea) G47.33 Chronic obstructive pulmonary disease, unspecified COPD type J44.9 COPD type: unspecified COPD Iron deficiency anemia secondary to inadequate dietary iron intake D50.8 Anemia type: iron deficiency Iron deficiency anemia type: inadequate dietary iron intake Type 2 diabetes mellitus with stage 4 chronic kidney disease, with long-term current use of insulin E11.22; N18.4; Z79.4 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
--- NOTE | 2023-12-28 15:46 | PC.OT ---
OT EVALUATION ATTEMPTED. PATIENT CURRENTLY ON BIPAP AND UNABLE TO ACTIVELY PARTICIPATE IN EVALUATION. WILL ATTEMPT AGAIN TOMORROW.
[2023-12-28] MEDS: nystatin powder 30 gm Btl 1 APPLIC TOPICAL (17:29)
[2023-12-28 21:32] LABS: Glucose Point of Care 132 mg/dL (70-110)
[2023-12-28 22:31] LABS: Glucose Point of Care 148 mg/dL (70-110)
[2023-12-28] MEDS: insulin lispro 100 unit/1 mL SUBCUT (23:06)
[2023-12-29] VITALS (33 sets, daily range): BP systolic 152–184; BP diastolic 64–94; PULSE 99–108; RESP 13–25; TEMP 37.6–38.4; O2SAT 96–99
[2023-12-29] MEDS: ipratropium-albuterol 3 mL Neb INHALATION ×4 (02:51→19:56)
[2023-12-29] MEDS: insulin lispro 100 unit/1 mL SUBCUT ×4 (04:19→21:46)
[2023-12-29] MEDS: pantoprazole 40 mg SDV IVP ×2 (05:08→19:15)
[2023-12-29 05:24] LABS: Basophils # 0.1 10^3/uL (0.0-0.1); Basophils % 0.6 %; Eosinophils # 0.4 10^3/uL (0.0-0.8); Eosinophils % 3.8 %; Hematocrit 26.9 % (36-47); Lymphocytes # 0.7 10^3/uL (0.8-4.8); Mean Corpuscular HGB Conc 30.5 g/dL (30-55); Mean Corpuscular Hemoglobin 27.9 pg (27-33); Mean Corpuscular Volume 91.5 fl (85-98); Mean Platelet Volume 8.5 fL (7.4-10.4); Monocytes # 0.9 10^3/uL (0.2-0.9); Monocytes % 8.7 %; Neutrophils # 7.57 10^3/uL (1.8-7.7); Neutrophils % 77.8 %; Nucleated Red Blood Cells % 0 %; Platelet Count 143 10^3/cmm (157-399); Red Blood Count 2.94 10^6/uL (3.85-5.65); Red Cell Distribution Width 15.8 % (12.1-15.1); White Blood Count 9.73 10^3/uL (3.29-11.43)
[2023-12-29 05:47] LABS: Alanine Aminotransferase 37 U/L (0-33); Albumin Level 3.8 g/dL (3.5-5.2); Alkaline Phosphatase 111 U/L (35-105); Anion Gap 24.8 (5-19); Aspartate Amino Transferase 79 U/L (0-32); Blood Urea Nitrogen 29 mg/dL (8-23); Calcium 9.7 mg/dL (8.5-10.5); Carbon Dioxide 22 mmol/L (22-29); Chloride 97 mmol/L (98-107); Glomerular Filtration Rate 14.5 mL/min (90-130); Glucose 146 mg/dL (65-115); Osmolality Calculated 298 mOsm/kg (285-295); Potassium 3.8 mmol/L (3.5-5.1); Sodium 140 mmol/L (136-145); Total Bilirubin 0.3 mg/dL (0.15-1.2); Total Protein 6.8 g/dL (6.6-8.7)
[2023-12-29 07:09] LABS: Glucose Point of Care 157 mg/dL (70-110)
[2023-12-29] MEDS: fluoxetine 20 mg Capsule PO (08:10)
[2023-12-29] MEDS: gabapentin 100 mg Capsule PO ×2 (08:10→19:14)
[2023-12-29] MEDS: isosorbide mononitrate ER 60 mg Tablet PO ×2 (08:11→19:16)
[2023-12-29] MEDS: heparin 5,000 unit/mL INJ 1 mL 5000 UNIT SUBCUT ×2 (08:11→21:17)
[2023-12-29] MEDS: ferrous sulfate EC 325 mg Tablet PO (08:11)
[2023-12-29] MEDS: hyDRALAzine 50 mg Tablet 100 MG PO ×3 (08:11→19:14)
[2023-12-29] MEDS: sennosides-docusate Tablet 2 TAB PO ×2 (08:11→19:14)
[2023-12-29] MEDS: nystatin powder 30 gm Btl 1 APPLIC TOPICAL (08:12)
[2023-12-29] MEDS: budesonide 0.5 mg/2 mL Neb INHALATION ×2 (08:22→19:56)
[2023-12-29 10:44] LABS: Add Urine Microscopic? YES; Bilirubin Urine Neg (Negative); Blood Urine 2+ (Negative); Glucose Urine UA Norm (Normal); Ketones Urine 1+ (Negative); Leukocyte Esterase Urine 2+ (Negative); Nitrate Urine Negative (Negative); Protein Urine 3+ (Negative); Urine Appearance Cloudy (CLEAR); Urine Color Brown (Yellow); Urobilinogen Urine Norm (Negative); pH Urine 5 (5-7)
[2023-12-29 10:56] LABS: Ammonia 36 umol/L (11-51)
[2023-12-29 11:05] LABS: Amorphous Sediment Urine 1+ /hpf; Bacteria Urine 1+ /hpf; Hyaline Casts Urine 0-4 /lpf; Mucus Urine 2+ /hpf; RBC Urine 25-40 /hpf (0-2); Squamous Epithelial Cell Urine 0-4 /hpf (0-5); Transitional Epi Cells Urine 0-4 /hpf; WBC Urine 15-25 /hpf (0-5)
[2023-12-29 11:06] LABS: Add Urine Culture? Yes
[2023-12-29 11:19] LABS: Glucose Point of Care 176 mg/dL (70-110)
[2023-12-29 12:22] LABS: Adenovirus Not Detected (NOT DETECT); Chlamydia Pneumoniae Not Detected (NOT DETECT); Coronavirus 229E,HKU1,NL63,OC4 Not Detected (NOT DETECT); Human Metapneumovirus Not Detected (NOT DETECT); Human Rhinovirus/Enterovirus Not Detected (NOT DETECT); Influenza A Not Detected (NOT DETECT); Influenza A H1 Not Detected (NOT DETECT); Influenza A H1-2009 Not Detected (NOT DETECT); Influenza A H3 Not Detected (NOT DETECT); Influenza B Not Detected (NOT DETECT); Mycoplasma Pneumoniae Not Detected (NOT DETECT); Parainfluenza Virus Type 1 Not Detected (NOT DETECT); Parainfluenza Virus Type 2 Not Detected (NOT DETECT); Parainfluenza Virus Type 3 Not Detected (NOT DETECT); Parainfluenza Virus Type 4 Not Detected (NOT DETECT); Respiratory Syncytial Virus A Not Detected (NOT DETECT); Respiratory Syncytial Virus B Not Detected (NOT DETECT); SARS-COV-2 Not Detected (NOT DETECT)
--- NOTE | 2023-12-29 14:54 | P.PN_ITS ---
Subjective 2 Subjective: Patient today morning seen sitting up in chair. Patient was on BiPAP overnight and transition to fourth of oxygen supplementation. Slightly more awake and alert today. Able to have some conversation though fairly weak. Complaining of mild pain. Denies any nausea, vomiting, headache. Tmax overnight 100.8 Fahrenheit. NG tube in place. Getting NG tube feeds. No episodes of agitation. Otherwise has remained hemodynamically stable with slightly elevated blood pressures today morning. Seen multiple times today with sons at bedside and daughter over the phone. Medications: Reviewed: Yes Vitals/I&O/Wt Last Vital Signs Temp 100.8 F H 12/29/23 08:00 Pulse 100 12/29/23 13:19 Resp 18 12/29/23 13:16 BP 178/92 12/29/23 11:00 Pulse Ox 99 12/29/23 13:19 O2 Del Method BiPAP 12/29/23 13:16 O2 Flow Rate 4 12/29/23 00:00 FiO2 30 12/29/23 13:19 12/28/23 12/29/23 12/29/23 22:59 06:59 14:59 Intake Total 261 / 261 925 / 1186 Output Total 50 / 50 120 / 170 Balance 211 / 211 805 / 1016 Weight last 48 hrs Weight 145.966 kg Weight 146.057 kg Physical Exam 2 Narrative: General: No acute distress. Sick appearing, weak, lethargic the more awake than yesterday, on waking up AO x 2-3 sitting up in chair, dried chapped lips HEENT normocephalic atraumatic no lymphadenopathy no thyromegaly neck supple, dry chapped lips Respiratory breath sounds decreased bilaterally no wheezes rubs or rhonchi, mild fine crackles bilateral lower zone Cardiac regular rhythm regular rate heart sounds distant, 1+ pulses in the left lower extremity, right radial pulse 2+ Abdomen normal bowel sounds, obese, distended, edema noted in the lower abdomen especially on the left, abdominal scars with no adipose tissue from previous surgeries noted below the umbilicus, no tenderness to palpation deferred Extremities 1+ edema bilateral lower extremities, 4/5 strength throughout, no pain, normal sensation Neurologic decreased vision on the right, decreased mobility of right upper extremity Const: COMMON NORMALS: alert GENERAL APPEARANCE: cooperative and patient mechanically ventilated ORIENTATION/CONSCIOUSNESS: Yes awake OTHER: Waking up. HENMT: COMMON NORMALS: oropharynx normal Neck/C-Spine: COMMON NORMALS: no JVD Resp: COMMON NORMALS: normal respiratory effort and clear to auscultation bilaterally AUSCULTATION: clear to auscultation bilaterally Cardio: COMMON NORMALS: no JVD, regular rhythm, S1 normal heart sound present, S2 normal heart sound present and No murmurs present (Cardio) RHYTHM: regular rhythm HEART SOUNDS: S1 normal heart sound present and S2 normal heart sound present GI: COMMON NORMALS: Normal to inspection, nondistended, normoactive bowel sounds present, Soft to palpation and non-tender PALPATION: Yes Soft to palpation Extremity: COMMON NORMALS: no joint enlargement OTHER: Anasarca continue to improve. both lower extremities and upper extremities. Hands are warm, perfused. Neuro: COMMON NORMALS: moves all extremities SENSORIUM/ORIENTATION: Yes alert Urinary Catheter Management: Latex Free: Cath Placed During This Visit: yes, but has since been removed by the nurse Reason for Continuing Indwelling Catheter: Accurate Measurement of Urinary Output in Critically Ill Patients Urinary Catheter Date of Insertion: 12/12/23 Urinary Catheter Time of Insertion: 15:39 Date Urinary Catheter Removed: 12/27/23 Time Urinary Catheter Discontinued: 12:52 Juárez Latex Free: Cath Placed During This Visit: yes Reason for Continuing Indwelling Catheter: Acute Urinary Retention or Obstruction Urinary Catheter Date of Insertion: 12/27/23 Urinary Catheter Time of Insertion: 12:54 Data 12/29/23 04:53 12/29/23 04:53 Micro: Microbiology 12/29/23 11:12 Blood Culture - Preliminary Blood SPECIMEN COLLECTED 12/29/23 11:07 Blood Culture - Preliminary Blood SPECIMEN COLLECTED A&P Assessment and plan (1) Acute metabolic encephalopathy: Most likely in setting of prolonged intubation requiring fentanyl and propofol. Improving. Does have severe physical deconditioning. Today patient is AO x 2 3. Hold off on any further Xanax. Limit pain medications. Continue with home dose of pain medications orally every 8 hours as needed. Gabapentin 100 mg twice daily, continue home dose of Prozac. Holding off on trazodone. Out of bed to chair. Check ammonia levels. PT/OT/speech evaluation. Daughter requesting CT head today to rule out stroke. Sons at bedside. Patient declining CT head. We did discuss that if CT head shows stroke she would not be a candidate for tenecteplase but is already on baby aspirin, statin. Though her symptoms of weakness is more so generalized in setting of physical deconditioning from prolonged intubation and dramatic hospitalization. Family for now verbalized understanding and agreeable. (2) Fever: Overnight patient had episode of fever up to 100.8. No leukocytosis. Patient has been on antibiotic coverage since admission for last 15 days with last dose of meropenem on 12/28. Last dose of Zyvox on 12/27 Check respiratory viral panel, sputum culture, urinalysis, urine culture, blood culture. LFTs are slightly deranged today. Will check CT abdomen pelvis to rule out acalculous cholecystitis. Restart antibiotics for now with broad-spectrum with IV vancomycin and meropenem as per renal functions. (3) SOB (shortness of breath): In setting of congestive heart failure along with severe obstructive sleep apnea in a patient with end-stage renal disease. Successfully extubated to BiPAP on 12/27. Given severe obstructive sleep apnea with COPD and congestive heart failure in setting of CKD stage V patient is at high risk of failure to extubation. Will need to continue to monitor. Sputum culture at the time of intubation negative. Pneumonia less likely. Given broad-spectrum antibiotics with Zyvox and meropenem. Will discontinue antibiotics. Last day of meropenem 0 12/28. Continue DuoNebs every 6 hour, Pulmicort twice daily. Continue to assess for dialysis daily depending on fluid status. (4) ROSEMARIE (acute kidney injury): On CKD stage V. Nephrology recommendations appreciated. Continue with hemodialysis. Temporary hemodialysis catheter in place. Once patient is more hemodynamically stable and extubated most likely patient will need dialysis as an outpatient as well. Case management alerted for possibility of outpatient dialysis. (5) Acute exacerbation of congestive heart failure: Continue dialysis. Reviewed electrolytes. Echocardiogram showed ejection fraction within normal limits right ventricular dilation bilateral atrial enlarged tricuspid regurgitation no pericardial. Most likely diastolic heart failure. Patient takes Bumex 2 mg twice daily at home. Overall around 1200 cc negative since admission. With very poor response to aggressive diuresis with worsening of renal functions. Continue with fluid restriction up to 1500 cc. Strict input charting, daily weights. Juárez catheterization. Juárez to be changed on 12/27 Qualifiers: Heart failure type: unspecified Qualified Code(s): I50.9 - Heart failure, unspecified (6) LIZ (obstructive sleep apnea): Continue BiPAP ventilation overnight. Will plan for repeat ABG in a.m. and break to BiPAP with possibility of transition to heated high flow as possible. (7) Chronic obstructive pulmonary disease, unspecified: Nebulization treatment as above. Qualifiers: COPD type: unspecified COPD Qualified Code(s): J44.9 - Chronic obstructive pulmonary disease, unspecified (8) Anemia: Hemoglobin so far stable. Last transfusion of 12/15. Anemia likely related to chronic kidney disease, autoimmune disease. Continue with Protonix twice daily. Continue with oral iron supplementation. Qualifiers: Anemia type: iron deficiency Iron deficiency anemia type: inadequate dietary iron intake Qualified Code(s): D50.8 - Other iron deficiency anemias (9) Type 2 diabetes mellitus with diabetic chronic kidney disease: Continue with insulin sliding scale. Holding off on long-acting insulin. Insulin sliding scale and blood sugar checks every 6 hours. 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 Continue with meropenem renally dosed for now. Will need for as needed meropenem dosed postdialysis. Antibiotic discontinued on 12/28. Hypertension: Goal blood pressure less than 140/90 mmHg. Blood pressure is elevated today post extubation and removal of sedation. Continue with hydralazine 100 mg 3 times daily, Imdur 60 mg twice daily. Will restart other medications as per goal blood pressures after dialysis. Analgesia:oxycodone 5 mg every 8 hours as needed, 0.2 IV Dilaudid every 6 as needed Glycemic control: Sliding scale every 6 hours Nutrition: Tube feeds with Nepro at 10 cc/h increase 10 cc every 4 hour with goal of 50 cc/h, free water flushes 100 cc every 8 hours. CODE STATUS: Full code PUD prophylaxis: Protonix DVT prophylaxis: Heparin 5000 every 12 hourly PT/OT/speech evaluation. Discharge planning: Patient has been accepted at LTAC. Did require P2p at [facility]. Patient has been accepted. Conversation with the physician. Plan to discharge in next 24 hours. Continue with care at ICU. Patient's care discussed in detail with family at bedside with daughter over the phone. We discussed the plan further would be a possible transfer to LTAC within next 24 hours if she remains stable. Discussed that her somnolence is improving and she is severely physically deconditioned for which she requires aggressive therapies along with initiation of oral diet when possible till then we will continue the NG tube feeding. Also discussed that currently CT head cannot be done as patient is denying more over she is already on aspirin and statin and patient is not a candidate for tPA. This documentation was created by [email or web address] relay motorman software. Every effort was made to ensure accuracy of relay motorman. Any obvious errors or omissions should be clarified with the author of the document. Attestations 2 Medical Necessity Statement*: Requires further hospitalization for management of severe physical deconditioning prolonged admission, BiPAP dependent in setting of severe obstructive sleep apnea, postextubation in a patient with CKD stage V on hemodialysis via safe discharge planning is sought. Diagnoses Acute metabolic encephalopathy G93.41 Fever R50.9 SOB (shortness of breath) R06.02 ROSEMARIE (acute kidney injury) N17.9 Acute exacerbation of congestive heart failure I50.9 Heart failure type: unspecified LIZ (obstructive sleep apnea) G47.33 Chronic obstructive pulmonary disease, unspecified COPD type J44.9 COPD type: unspecified COPD Iron deficiency anemia secondary to inadequate dietary iron intake D50.8 Anemia type: iron deficiency Iron deficiency anemia type: inadequate dietary iron intake Type 2 diabetes mellitus with stage 4 chronic kidney disease, with long-term current use of insulin E11.22; N18.4; Z79.4 Chronic kidney disease stage: stage 4 (severe) Diabetes mellitus nursing home insulin use: with nursing home use Goals of care, counseling/discussion Z71.89 CKD (chronic kidney disease) stage 4, GFR 15-29 ml/min N18.4 Physical deconditioning R53.81
--- NOTE | 2023-12-29 14:57 | P.PN_ITS ---
Subjective 2 Subjective: extubated yesterday on BIPAP SOMNOLENT Medications: Reviewed: Yes Vitals/I&O/Wt Last Vital Signs Temp 100.8 F H 12/29/23 08:00 Pulse 100 12/29/23 13:19 Resp 18 12/29/23 13:16 BP 178/92 12/29/23 11:00 Pulse Ox 99 12/29/23 13:19 O2 Del Method BiPAP 12/29/23 13:16 O2 Flow Rate 4 12/29/23 00:00 FiO2 30 12/29/23 13:19 12/28/23 12/29/23 12/29/23 22:59 06:59 14:59 Intake Total 261 / 261 925 / 1186 Output Total 50 / 50 120 / 170 Balance 211 / 211 805 / 1016 Weight last 48 hrs Weight 145.966 kg Weight 146.057 kg Physical Exam 2 Narrative: somnolent , on BIPAP Urinary Catheter Management: Latex Free: Cath Placed During This Visit: yes, but has since been removed by the nurse Reason for Continuing Indwelling Catheter: Accurate Measurement of Urinary Output in Critically Ill Patients Urinary Catheter Date of Insertion: 12/12/23 Urinary Catheter Time of Insertion: 15:39 Date Urinary Catheter Removed: 12/27/23 Time Urinary Catheter Discontinued: 12:52 Juárez Latex Free: Cath Placed During This Visit: yes Reason for Continuing Indwelling Catheter: Acute Urinary Retention or Obstruction Urinary Catheter Date of Insertion: 12/27/23 Urinary Catheter Time of Insertion: 12:54 Data 12/29/23 04:53 12/29/23 04:53 Micro: Microbiology 12/29/23 11:12 Blood Culture - Preliminary Blood SPECIMEN COLLECTED 12/29/23 11:07 Blood Culture - Preliminary Blood SPECIMEN COLLECTED A&P Assessment and plan (1) Acute kidney injury superimposed on chronic kidney disease: Plan 1. Acute on chronic kidney disease stage III: Patient' baseseline creatinine of 1.5-1.9, has multiple ROSEMARIE's in the past. -was on Lasix drip with IV albumin every 8 hours, + metolazone 2.5 mg bid daily-->switched to bumex , with inadequate diuresis . - S/P tunnelled catheter placement and getting HD , HD again today - pt requires longterm HD , no renal recovery yet -2 g sodium restriction and 1500 mL fluid restriction 2. Anemia: s/p transfusion ,will add BOUCHRA 3. Diastolic CHF, UF as above, echo 4. Acute on chronic respiratory failure, multifactorial, Intubated , patient has history of COPD, LIZ and CHF--> extubated on 12/27/2023, currently on BiPAP-- may need trach 5. History of diabetes Patient evaluated using audiovisual cart. Time spent 20 minutes. Attestations 2 Medical Necessity Statement*: [facility] Level of Care Code Acute Code for Chg Fwd Diagnoses Acute kidney injury superimposed on chronic kidney disease N17.9; N18.9
[2023-12-29] MEDS: heparin, porcine 1,000 unit/mL INJ 10 mL 1000 UNIT IV (15:39)
[2023-12-29] MEDS: heparin, porcine 1,000 unit/mL INJ 10 mL 10000 UNIT INTRACATH (15:40)
[2023-12-29 17:19] LABS: Glucose Point of Care 172 mg/dL (70-110)
--- NOTE | 2023-12-29 18:23 | PM.PN ---
Subjective Subjective: Patient seen at bedside on BiPAP Following commands-appears deconditioned Today plan is to keep her out of bed to chair and continue physical therapy Will transition to nasal cannula. She will get hemodialysis today. Continue NG tube feeds. Other labs and imaging revealed Medications: Reviewed: Yes Medication Review Details: Current Medications Albuterol/Ipratropium (Ipratropium-Albuterol 3 Ml Neb) 3 ml INHALATION Q6H.RESP HERMINIO Last Admin: 12/19/23 15:54 Dose: 3 ml Alprazolam (Alprazolam 0.5 Mg Tablet) 0.5 mg PO TID PRN PRN Reason: ANXIETY Last Admin: 12/17/23 16:39 Dose: 0.5 mg Amlodipine Besylate (Amlodipine 10 Mg Tablet) 10 mg PO DAILY [facility] Last Admin: 12/19/23 08:18 Dose: 10 mg Atorvastatin Calcium (Atorvastatin 40 Mg Tablet) 20 mg PO BEDTIME [facility] Last Admin: 12/18/23 20:50 Dose: 20 mg Benzocaine (Cetylpyridinium Lozenge) 1 each MUCOUS MEM Q2H PRN PRN Reason: SORE THROAT Last Admin: 12/17/23 08:38 Dose: 1 each Budesonide (Budesonide 0.5 Mg/2 Ml Neb) 0.5 mg INHALATION BID.RESPIRATORY [facility] Last Admin: 12/19/23 07:38 Dose: 0.5 mg Chlorhexidine Gluconate (Chlorhexidine Gluconate 4% Btl 118 Ml) 1 applic TOPICAL BID [facility] Cyclobenzaprine HCl (Cyclobenzaprine 10 Mg Tablet) 10 mg PO TID PRN PRN Reason: MUSCLE SPASMS Last Admin: 12/17/23 08:38 Dose: 10 mg Dextrose (Dextrose 50% Syringe 50 Ml) 25 ml IVP ONCE PRN; Protocol PRN Reason: hypoglycemia protocol Dextrose (Dextrose 50% Syringe 50 Ml) 50 ml IVP PRN PRN; Protocol PRN Reason: hypoglycemia protocol Ferrous Sulfate (Ferrous Sulfate Ec 325 Mg Tablet) 325 mg PO DAILY [facility] Last Admin: 12/19/23 08:18 Dose: 325 mg Fluoxetine HCl (Fluoxetine 20 Mg Capsule) 20 mg PO DAILY [facility] Last Admin: 12/19/23 08:18 Dose: 20 mg Gabapentin (Gabapentin 100 Mg Capsule) 100 mg PO BID [facility] Last Admin: 12/19/23 08:18 Dose: 100 mg Hydralazine HCl (Hydralazine 50 Mg Tablet) 50 mg PO TID [facility] Last Admin: 12/19/23 14:18 Dose: 50 mg Hydromorphone HCl (Hydromorphone 1 Mg/Ml Inj 1 Ml) 0.5 mg IVP Q6H PRN PRN Reason: PAIN Last Admin: 12/19/23 16:15 Dose: 0.5 mg Dextrose (D5w) 500 mls @ 0 mls/hr IV ONCE PRN; Protocol PRN Reason: Adult Acute Hypoglycemia Prot Albumin Human (Albumin) 25 g in 100 mls @ 60 mls/hr IV Q8H [facility] Last Infusion: 12/19/23 16:14 Dose: Infused Insulin Glargine (Insulin Glargine 100 Units/1 Ml) 20 unit SUBCUT DAILY [facility] Last Admin: 12/19/23 08:18 Dose: 20 unit Insulin Human Lispro (Insulin Lispro 100 Unit/1 Ml) 0 unit SUBCUT WM&BEDTIME [facility]; Protocol Last Admin: 12/19/23 17:03 Dose: Not Given Isosorbide Mononitrate (Isosorbide Mononitrate Er 60 Mg Tablet) 60 mg PO BID [facility] Last Admin: 12/19/23 08:18 Dose: 60 mg Naloxone HCl (Naloxone 0.4 Mg/Ml Sdv) 0.4 mg IVP PRN PRN PRN Reason: RESPIRATORY RATE < 8/MIN Nystatin (Nystatin Powder 30 Gm Btl) 1 applic TOPICAL BID [facility] Last Admin: 12/19/23 09:19 Dose: Not Given Ondansetron HCl (Ondansetron 2 Mg/Ml Sdv 2 Ml) 4 mg IVP Q6H PRN PRN Reason: vomiting, or N/V if npo Oxycodone HCl (Oxycodone 5 Mg Ir Tab/Cap) 10 mg PO Q8H PRN PRN Reason: MODERATE PAIN Last Admin: 12/19/23 11:13 Dose: 10 mg Pantoprazole Sodium (Pantoprazole Dr 40 Mg Tablet) 40 mg PO BID [facility] Last Admin: 12/19/23 08:18 Dose: 40 mg Senna/Docusate Sodium (Sennosides-Docusate Tablet) 2 tab PO BID [facility] Last Admin: 12/19/23 08:18 Dose: 2 tab Trazodone HCl (Trazodone 100 Mg Tablet) 100 mg PO BEDTIME [facility] Last Admin: 12/18/23 20:50 Dose: 100 mg Vitals/I&O/Wt Last Vital Signs Temp 100.2 F H 12/29/23 16:00 Pulse 105 H 12/29/23 16:00 Resp 13 12/29/23 16:00 BP 182/91 12/29/23 16:00 Pulse Ox 98 12/29/23 16:00 O2 Del Method BiPAP 12/29/23 13:16 O2 Flow Rate 4 12/29/23 00:00 FiO2 30 12/29/23 13:19 12/29/23 12/29/23 12/29/23 06:59 14:59 22:59 Intake Total 925 / 1186 Output Total 120 / 170 Balance 805 / 1016 Weight last 48 hrs Weight 321 lb 12.8 oz Weight 322 lb Physical Exam Narrative: General:Still drowsy, lying in bed, not in acute distress HEENT: conj clear, EOMI, PERRL, mmm, Neck: supple, no meningismus Heme: no cervical LAP Respiratory: Inspection: No visible deformity of the chest wall Palpation: Trachea is mildly deviated to the right, bilateral symmetric expansion Percussion: Bilateral tympanic percussion note both anterior and posteriorly Auscultation: Bilateral clear to auscultation both anterior and posteriorly, no crackles wheezing or rhonchi Cardiovascular: rrr, nl s1s2, no mrg Abdomen: soft, nt, nd, no r/g, bs+ Extremities: pulses +, no edema, no c/c : no CVA tenderness Skin: intact, no rash MSK: no back or neck pain Neurologic: grossly intact LDA: # HD Cath : 12/19/2023 right IJ permacath Urinary Catheter Management: Latex Free: Cath Placed During This Visit: yes, but has since been removed by the nurse Reason for Continuing Indwelling Catheter: Accurate Measurement of Urinary Output in Critically Ill Patients Urinary Catheter Date of Insertion: 12/12/23 Urinary Catheter Time of Insertion: 15:39 Date Urinary Catheter Removed: 12/27/23 Time Urinary Catheter Discontinued: 12:52 Juárez Latex Free: Cath Placed During This Visit: yes Reason for Continuing Indwelling Catheter: Acute Urinary Retention or Obstruction Urinary Catheter Date of Insertion: 12/27/23 Urinary Catheter Time of Insertion: 12:54 Data 12/29/23 04:53 12/29/23 04:53 Other Labs: Radiology Impressions Venous Duplex 12/19/23 15:40 IMPRESSION: No evidence of deep vein thrombosis. Chest X-Ray 12/28/23 06:00 IMPRESSION: No significant change. Laboratory Results WBC 9.73 10^3/uL (3.29-11.43) 12/29/23 04:53 RBC 2.94 10^6/uL (3.85-5.65) L 12/29/23 04:53 Hgb 8.20 g/dL (11.27-16.99) L 12/29/23 04:53 Hct 26.9 % (36-47) L 12/29/23 04:53 MCV 91.5 fl (85-98) 12/29/23 04:53 MCH 27.9 pg (27-33) 12/29/23 04:53 MCHC 30.5 g/dL (30-55) 12/29/23 04:53 RDW 15.8 % (12.1-15.1) H 12/29/23 04:53 Plt Count 143 10^3/cmm (157-399) L 12/29/23 04:53 MPV 8.5 fL (7.4-10.4) 12/29/23 04:53 Neut % (Auto) 77.8 % 12/29/23 04:53 Lymph % (Auto) 7.0 % 12/29/23 04:53 [place] % (Auto) 8.7 % 12/29/23 04:53 Eos % (Auto) 3.8 % 12/29/23 04:53 Baso % (Auto) 0.6 % 12/29/23 04:53 Neut # (Auto) 7.57 10^3/uL (1.8-7.7) 12/29/23 04:53 Lymph # (Auto) 0.7 10^3/uL (0.8-4.8) L 12/29/23 04:53 [place] # (Auto) 0.9 10^3/uL (0.2-0.9) 12/29/23 04:53 Eos # (Auto) 0.4 10^3/uL (0.0-0.8) 12/29/23 04:53 Baso # (Auto) 0.1 10^3/uL (0.0-0.1) 12/29/23 04:53 Nucleated RBC % (auto) 0 % 12/29/23 04:53 Nucleated RBCs # 0.0 /100WBC 12/29/23 04:53 PT 15.70 SECONDS (12.1-14.9) H 12/12/23 14:58 INR 1.21 (0.8-1.2) H 12/12/23 14:58 Specimen Type Arterial 12/28/23 06:25 Sample Site Not Reportable 12/28/23 06:25 ABG pH 7.37 (7.35-7.45) 12/28/23 03:35 ABG pCO2 46.1 mmHg (35-45) H 12/28/23 03:35 ABG pO2 46.0 mmHg (80.0-100.0) L 12/28/23 03:35 ABG PO2/FiO2 Ratio 0 12/28/23 03:35 ABG HCO3 26.8 mmol/L (22-26) H 12/28/23 03:35 ABG O2 Saturation 86.4 12/28/23 03:35 ABG Base Excess 1.3 mmol/L (-2.0-2.0) 12/28/23 03:35 Sharad Test Pos 12/28/23 06:25 VBG pH 7.37 (7.32-7.42) 12/28/23 06:25 VBG pCO2 45.2 mmHg (41-51) 12/28/23 06:25 VBG pO2 148.0 mmHg (25-40) H 12/28/23 06:25 VBG HCO3 26.1 mmol/L (24-28) 12/28/23 06:25 VBG Base Excess 0.6 mmol/L (-3.0-3.0) 12/28/23 06:25 VBG Hematocrit 27.5 % (37-47) L 12/28/23 06:25 A-a O2 Gradient 14.6 mmHg (5-10) H 12/28/23 03:35 Hematocrit 27.7 % (37-47) L 12/28/23 03:35 Hgb O2 Saturation 84.3 % (95-100) L 12/28/23 03:35 Carboxyhemoglobin 1.6 %THgb (0.4-20.1) 12/28/23 03:35 Methemoglobin 0.8 % (0.4-1.5) 12/28/23 03:35 Total Hemoglobin 9.0 g/dL (12-16) L 12/28/23 03:35 Sodium 139.0 mmol/L (131-143) 12/28/23 03:35 Potassium 3.6 mmol/L (3.5-5.0) 12/28/23 03:35 Glucose 114.0 mg/dL (70-115) 12/28/23 03:35 Ionized Calcium 1.3 mmol/L (1.1-1.4) 12/28/23 03:35 O2 Delivery Device Bipap 12/28/23 06:25 O2 Liters/Min 2.0 % 12/17/23 11:20 FiO2 40.0 % 12/28/23 06:25 Tidal Volume 0.41 12/24/23 04:25 PEEP 8.0 cmH20 12/27/23 15:06 Property Claims Manager ID [email or web address] 12/28/23 06:25 Sodium 140 mmol/L (136-145) 12/29/23 04:53 Potassium 3.8 mmol/L (3.5-5.1) 12/29/23 04:53 Chloride 97 mmol/L (98-107) L 12/29/23 04:53 Carbon Dioxide 22 mmol/L (22-29) 12/29/23 04:53 Anion Gap 24.8 (5-19) H 12/29/23 04:53 BUN 29 mg/dL (8-23) H 12/29/23 04:53 Creatinine 3.2 mg/dL (0.5-0.9) H 12/29/23 04:53 GFR Calculation 14.5 mL/min (90-130) L 12/29/23 04:53 Glucose 146 mg/dL (65-115) H 12/29/23 04:53 POC Glucose 172 mg/dL (70-110) H 12/29/23 17:16 Calculated Osmolality 298 mOsm/kg (285-295) H 12/29/23 04:53 Calcium 9.7 mg/dL (8.5-10.5) 12/29/23 04:53 Magnesium 2.8 mg/dL (1.7-2.3) H 12/17/23 03:05 Total Bilirubin 0.3 mg/dL (0.15-1.2) 12/29/23 04:53 AST 79 U/L (0-32) H 12/29/23 04:53 ALT 37 U/L (0-33) H 12/29/23 04:53 Alkaline Phosphatase 111 U/L (35-105) H 12/29/23 04:53 Ammonia 36 umol/L (11-51) 12/29/23 10:28 Creatine Kinase 38 U/L (26-192) 12/19/23 04:09 Troponin T Baseline 73 ng/L (0-10) H 12/12/23 14:58 Troponin T 120 Minute 70.53 ng/L (0-10) H 12/12/23 16:53 Delta Troponin T -2.47 ABS# (0-10) L 12/12/23 16:53 Troponin T Hi Sens 6Hr 70.55 ng/L (0-10) H 12/12/23 20:29 Troponin T Hi Sens 6Hr Delta -2.45 ng/L (0-12) L 12/12/23 20:29 NT-Pro-B Natriuret Pep 9694 pg/mL (0-125) H 12/12/23 14:58 Total Protein 6.8 g/dL (6.6-8.7) 12/29/23 04:53 Albumin 3.8 g/dL (3.5-5.2) 12/29/23 04:53 Globulin 3.0 g/dL (1.3-4.6) 12/29/23 04:53 Urine Color Brown (Yellow) A 12/29/23 10:20 Urine Appearance Cloudy (CLEAR) A 12/29/23 10:20 Urine pH 5 (5-7) 12/29/23 10:20 Ur Specific [place] 1.020 (1.005-1.030) 12/29/23 10:20 Urine Protein 3+ (Negative) H 12/29/23 10:20 Urine Glucose (UA) Norm (Normal) 12/29/23 10:20 Urine Ketones 1+ (Negative) H 12/29/23 10:20 Urine Blood 2+ (Negative) H 12/29/23 10:20 Urine Nitrate Negative (Negative) 12/29/23 10:20 Urine Bilirubin Neg (Negative) 12/29/23 10:20 Urine Urobilinogen Norm mg/dL (Negative) 12/29/23 10:20 Ur Leukocyte Esterase 2+ (Negative) H 12/29/23 10:20 Urine RBC 25-40 /hpf (0-2) H 12/29/23 10:20 Urine WBC 15-25 /hpf (0-5) H 12/29/23 10:20 Ur Squamous Epith Cells 0-4 /hpf (0-5) H 12/29/23 10:20 Ur Transition Epith Cell 0-4 /hpf 12/29/23 10:20 Amorphous Sediment 1+ /hpf 12/29/23 10:20 Urine Bacteria 1+ /hpf (NONE) H 12/29/23 10:20 Hyaline Casts 0-4 /lpf H 12/29/23 10:20 Urine Mucus 2+ /hpf 12/29/23 10:20 Urine Yeast 2+ /hpf H 12/29/23 10:20 Ur Random Sodium 57 mmol/L 12/17/23 12:30 Ur Random Potassium 60 mmol/L 12/17/23 12:30 Ur Random Chloride 96 mmol/L 12/17/23 12:30 Urine Creatinine 47 mg/dL (28-217) 12/17/23 12:30 Adenovirus (PCR) Not detected (NOT DETECT) 12/29/23 10:20 C. pneumoniae DNA (PCR) Not detected (NOT DETECT) 12/29/23 10:20 Coronavirus 229E (PCR) Not detected (NOT DETECT) 12/29/23 10:20 Hep Bs Antigen Non-reactive (Nonreactive) 12/20/23 06:04 Hep Bs Antibody 5.5 (11.5-1000) L 12/20/23 06:04 Hep B Core Total Ab Non-reactive (Nonreactive) 12/20/23 06:04 Human Metapneumovir PCR Not detected (NOT DETECT) 12/29/23 10:20 Influenza A (H1) PCR Not detected (NOT DETECT) 12/29/23 10:20 Influ A (H1/09) PCR Not detected (NOT DETECT) 12/29/23 10:20 Influenza A (H3) PCR Not detected (NOT DETECT) 12/29/23 10:20 Influenza Type A (PCR) Not detected (NOT DETECT) 12/29/23 10:20 Influenza Type B (PCR) Not detected (NOT DETECT) 12/29/23 10:20 M. pneumoniae (PCR) Not detected (NOT DETECT) 12/29/23 10:20 Parainfluenza 1 (PCR) Not detected (NOT DETECT) 12/29/23 10:20 Parainfluenza 2 (PCR) Not detected (NOT DETECT) 12/29/23 10:20 Parainfluenza 3 (PCR) Not detected (NOT DETECT) 12/29/23 10:20 Parainfluenza 4 (PCR) Not detected (NOT DETECT) 12/29/23 10:20 RSV Type A (PCR) Not detected (NOT DETECT) 12/29/23 10:20 RSV Type B (PCR) Not detected (NOT DETECT) 12/29/23 10:20 Entero/Rhino (PCR) Not detected (NOT DETECT) 12/29/23 10:20 SARS-CoV-2 (PCR) Not detected (NOT DETECT) 12/29/23 10:20 MRSA (PCR) Not detected (NOT DETECTED) 12/22/23 21:25 Blood Type B Positive 12/15/23 07:46 Rho(D) Type Rh positive 12/15/23 07:46 Antibody Screen Negative 12/15/23 07:46 Crossmatch See Detail 12/15/23 07:46 Micro: Microbiology 12/29/23 11:12 Blood Culture - Preliminary Blood SPECIMEN COLLECTED 12/29/23 11:07 Blood Culture - Preliminary Blood SPECIMEN COLLECTED A&P Assessment and plan (1) Difficult ventilator weaning: (2) LIZ (obstructive sleep apnea): (3) Acute on chronic diastolic (congestive) heart failure: (4) Acute kidney injury superimposed on chronic kidney disease: (5) UTI due to Klebsiella species: (6) Goals of care, counseling/discussion: Plan # Acute respiratory failure secondary to fluid overload due to acute on chronic diastolic heart failure/acute on chronic kidney disease -Patient seen at bedside on BiPAP Following commands-appears deconditioned Today plan is to keep her out of bed to chair and continue physical therapy Will transition to nasal cannula. She will get hemodialysis today. Continue NG tube feeds. -Patient is currently on meropenem for Klebsiella pneumonia in urine cultures- -Hemodynamically stable with no pressor requirements # Sugars [id number] insulin glargine and scale coverage ICU CHECKLIST: Problem list updated Verbal orders reviewed and signed Code Status: Full Disposition: ICU -plan is to discharge patient to LTAC Critically ill: Yes MD discussed with: hospitalist, RN, RT Analgesia: Yes Glycemic Control: Insulin Nutrition: NG feeding, held for possible extubation-restart NG feed postextubation until swallow evaluation Restraint Renewal (within 24 hrs): Yes Ulcer Prophylaxis: PPI Chemical Thromboprophylaxis: Prophylaxis: Heparin Mechanical Thromboprophylaxis: SCDs Need for Central line: No Need for Juárez catheter: Yes Attestations Medical Necessity Statement*: May need 24 to 48 hours monitoring for postextubation and can transfer to stepdown/floor Time Spent in Patient Care: Greater than 35 minutes (>than 50% of time spent in counselling and/or direct pt care on unit). Critical Care Time: This patient has a high probability of clinically significant, sudden or life threatening deterioration of the patient's (cardiac, pulmonary, renal, neurological) systems required my full, direct attention, the highest level of physician preparedness for urgent intervention and personal management. I managed/supervised life or organ supporting interventions that required frequent physician assessment. I devoted my full attention in the ICU to the direct care of this patient for the period of time indicated above. Time I spent with family or surrogate(s) is included only if the patient was incapable of providing necessary information or participating in decision making. This time includes the following services provided: Telemetry review Mechanical Ventilation Hemodynamic interpretation, assessment and management Review and interpretation of CXR Review and interpretation of lab values Review and interpretation of microbiologic data and culture results Review of medications and administration Review and interpretation of Nutrition requirements and management Discussion of management with other consultants and services Clinical update to family members [x] Data and vital sign review and interpretation [x] Patient assessment, examination and intervention [x] Documentation [x] Medication orders and management Critical Care Time (min): 52 Coding Level of Care Code Acute Code for Chg Fwd Diagnoses Difficult ventilator weaning Z99.11 LIZ (obstructive sleep apnea) G47.33 Acute on chronic diastolic (congestive) heart failure I50.33 Acute kidney injury superimposed on chronic kidney disease N17.9; N18.9 UTI due to Klebsiella species N39.0; B96.89 Goals of care, counseling/discussion Z71.89 Time Spent (min) 47
[2023-12-29] MEDS: atorvastatin 40 mg Tablet 20 MG PO (19:15)
[2023-12-29] MEDS: meropenem 500 MG in sodium chloride 0.9% (plus) 50 ML 100 MG IV (19:16)
[2023-12-29] MEDS: vancomycin 1,000 MG in sodium chloride 0.9% 250 ML 250 MG IV (19:17)
[2023-12-29] MEDS: acetaminophen 1,000 MG/100 ML PIGGYBACK 400 MG IV (19:25)
--- NOTE | 2023-12-29 19:27 | NUR.SHIFT ---
status improved up in chair today with continued drift to left side oral care done attempt po eval per speech pt refused even few ice chips talked with daughter per face time and sons in room preparing for altac in am more time off bipap today dialysis done another 3 litters removed low grade temp noted is conversing with family
--- NOTE | 2023-12-29 20:49 | PC.NURSE ---
Patient refusing to go to CT for abdominal CT. When asked why states I don't want it, I don't want all of this . Notified Dr Ordoñez. Patients chart reviewed per Dr. Ordoñez. Order given to not take patient to CT for abdominal CT against her will and document patient refusal.
[2023-12-29 21:46] LABS: Glucose Point of Care 201 mg/dL (70-110)
--- NOTE | 2023-12-29 22:01 | CTR_ITS ---
PROCEDURE INFORMATION: Exam: CT Abdomen And Pelvis Without Contrast Exam date and time: 12/29/2023 10:18 PM Age: 68 years old Clinical indication: Other: Febrile, transaminitis, cholecystitis TECHNIQUE: Imaging protocol: Computed tomography of the abdomen and pelvis without contrast. Radiation optimization: All CT scans at this facility use at least one of these dose optimization techniques: automated exposure control; mA and/or kV adjustment per patient size (includes targeted exams where dose is matched to clinical indication); or iterative reconstruction. COMPARISON: CT abdomen pelvis [facility] [id number] 08/14/2023 1:54 PM RADIATION DOSE METRICS: Total DLP (mGy-cm): 1305.16 FINDINGS: Coronary arteries: Coronary arterial atherosclerotic calcifications are present. Liver: Normal. No mass. Gallbladder and bile ducts: The gallbladder is absent. Pancreas: Normal. No ductal dilation. Spleen: Normal. No splenomegaly. Adrenal glands: Normal. No mass. Kidneys and ureters: Normal. No hydronephrosis. Stomach and bowel: Unremarkable. No obstruction. No mucosal thickening. Appendix: No evidence of appendicitis. Intraperitoneal space: Unremarkable. No free air. No significant fluid collection. Vasculature: Unremarkable. No abdominal aortic aneurysm. Lymph nodes: Unremarkable. No enlarged lymph nodes. Urinary bladder: There is a Juárez catheter in the bladder. Bladder is decompressed. Reproductive: Unremarkable as visualized. Bones/joints: Unremarkable. No acute fracture. Soft tissues: Extensive fat stranding in the subcutaneous fat of the left lateral abdomen and pelvis and to a lesser extent the right lateral pelvis and flank which can be seen the setting of panniculitis. CT/CT abdomen pelvis [facility] [id number] IMPRESSION: 1. The gallbladder is absent. No intrahepatic or extrahepatic biliary ductal dilatation. 2. Extensive fat stranding in the subcutaneous fat of the left lateral abdomen and pelvis and to a lesser extent the right lateral pelvis and flank which can be seen the setting of panniculitis.
--- NOTE | 2023-12-29 22:46 | PC.NURSE ---
Dr. Styles called and stated that he wants the patient to be taken to CT for a catscan of her abdomen. Explained to Dr. Mack that patient is not wanting to have it done. Dr. Styles states she needs the CT and I don't feel she is oriented enough to make her own decisions and the daughter has power of gang tailer and is making the decisions. She has not wanted any of this but the daughter is making the decisions. Asked Dr. Styles I he wants me to take the patient against her will and he states yes .
[2023-12-29] MEDS: ibuprofen 200 mg Tablet 400 MG PO (22:58)
[2023-12-30] VITALS (24 sets, daily range): BP systolic 102–183; BP diastolic 57–110; PULSE 95–114; RESP 13–31; TEMP 37.3–38.3; O2SAT 95–100
[2023-12-30] MEDS: ipratropium-albuterol 3 mL Neb INHALATION ×3 (03:20→13:54)
[2023-12-30] MEDS: insulin lispro 100 unit/1 mL SUBCUT ×2 (04:05→13:33)
[2023-12-30 04:20] LABS: Basophils # 0.1 10^3/uL (0.0-0.1); Basophils % 0.6 %; Eosinophils # 0.4 10^3/uL (0.0-0.8); Eosinophils % 4.4 %; Hematocrit 27.2 % (36-47); Lymphocytes # 0.7 10^3/uL (0.8-4.8); Lymphocytes % 7.4 %; Mean Corpuscular HGB Conc 31.6 g/dL (30-55); Mean Corpuscular Hemoglobin 28.3 pg (27-33); Mean Corpuscular Volume 89.5 fl (85-98); Mean Platelet Volume 8.9 fL (7.4-10.4); Monocytes % 10.1 %; Neutrophils # 7.44 10^3/uL (1.8-7.7); Neutrophils % 75.3 %; Nucleated Red Blood Cells % 0 %; Platelet Count 143 10^3/cmm (157-399); Red Blood Count 3.04 10^6/uL (3.85-5.65); Red Cell Distribution Width 15.8 % (12.1-15.1); White Blood Count 9.88 10^3/uL (3.29-11.43)
[2023-12-30] MEDS: pantoprazole 40 mg SDV IVP (05:07)
[2023-12-30 05:52] LABS: Alanine Aminotransferase 39 U/L (0-33); Albumin Level 3.9 g/dL (3.5-5.2); Alkaline Phosphatase 118 U/L (35-105); Blood Urea Nitrogen 27 mg/dL (8-23); Calcium 9.8 mg/dL (8.5-10.5); Carbon Dioxide 26 mmol/L (22-29); Chloride 97 mmol/L (98-107); Globulin 3.4 g/dL (1.3-4.6); Glomerular Filtration Rate 22.3 mL/min (90-130); Glucose 218 mg/dL (65-115); Osmolality Calculated 296 mOsm/kg (285-295); Sodium 137 mmol/L (136-145); Total Bilirubin 0.4 mg/dL (0.15-1.2); Total Protein 7.3 g/dL (6.6-8.7)
[2023-12-30 05:53] LABS: Anion Gap 17.4 (5-19); Aspartate Amino Transferase 58 U/L (0-32); Potassium 3.4 mmol/L (3.5-5.1)
[2023-12-30 06:47] LABS: Glucose Point of Care 207 mg/dL (70-110)
[2023-12-30] MEDS: heparin, porcine 1,000 unit/mL INJ 10 mL 1000 UNIT IV (07:45)
[2023-12-30] MEDS: budesonide 0.5 mg/2 mL Neb INHALATION (08:10)
[2023-12-30] MEDS: heparin, porcine 1,000 unit/mL INJ 10 mL 10000 UNIT INTRACATH (09:40)
--- NOTE | 2023-12-30 09:55 | PM.HP ---
Providers/Chief Complaint Admitting Physician: Brett Raphael MD Primary Care Provider: PARAG Mensah Chief Complaint: abd pain History of Present Illness Jennifer Novak is a 68 year old female Medications/Allergies Home Medications Medication Instructions Recorded Confirmed Last Taken Type cholecalciferol (vitamin D3) 125 125 mcg PO DAILY 05/14/21 12/12/23 12/12/23 History mcg (5,000 unit) tablet (Vitamin D3) acetaminophen 325 mg tablet 325 - 650 mg PO Q6H PRN Pain 12/13/21 12/12/23 Unknown History cyanocobalamin (vitamin B-12) 50 50 mcg PO DAILY ##0 04/12/22 12/12/23 12/12/23 History mcg tablet (Vitamin B-12) blood-glucose meter (CoferonTouch #1 ea 09/29/22 12/12/23 Unknown Rx Ultra2 Meter kit) diabetic shoes with inserts #1 ea 02/25/23 12/12/23 Unknown Rx isosorbide mononitrate 60 mg 60 mg PO DAILY #90 tabs 04/13/23 12/12/23 12/12/23 Rx tablet,extended release 24 hr hydroxychloroquine 200 mg tablet 200 mg PO BID #180 tabs 05/02/23 12/12/23 12/12/23 Rx triamcinolone acetonide 0.1 % 1 applic topical DAILY PRN itching 05/10/23 12/12/23 12/11/23 Rx topical ointment #30 grams lancets 33 gauge ([employer]such Cumed #100 ea 05/13/23 12/12/23 Unknown Rx Lancets) lancing device with lancets kit #1 ea 05/13/23 12/12/23 Unknown Rx ([employer] Delica Plus Lancing Device kit) fluoxetine 20 mg capsule 20 mg PO DAILY 08/13/23 12/12/23 12/12/23 History fluoxetine 40 mg capsule 40 mg PO BEDTIME 08/13/23 12/12/23 12/11/23 History magnesium oxide 400 mg PO DAILY PRN Muscle Spasm 08/13/23 12/12/23 12/12/23 History oxycodone 5 mg tablet 2.5 - 5 mg PO Q8H PRN Pain 09/08/23 12/12/23 12/12/23 History rosuvastatin 10 mg tablet 10 mg PO QPM 09/08/23 12/12/23 12/11/23 History albuterol sulfate 90 mcg/actuation 2 puff inhalation Q4H PRN 09/15/23 12/12/23 08/13/23 20:00 Rx aerosol inhaler (ProAir HFA) shortness of breath or wheezing #8.5 grams amlodipine 10 mg tablet 10 mg PO DAILY #60 tabs 09/15/23 12/12/23 12/12/23 Rx bumetanide 2 mg tablet 2 mg PO BID #90 tabs 09/15/23 12/12/23 12/12/23 08:00 Rx hydralazine 25 mg tablet 50 mg (2 x 25 mg) PO TID #90 tabs 09/15/23 12/12/23 12/12/23 Rx metoprolol tartrate 25 mg tablet 25 mg PO BID #60 tabs 09/15/23 12/12/23 12/12/23 Rx dicyclomine 20 mg tablet 20 mg PO QID PRN stooling 10/12/23 12/12/23 12/12/23 History insulin degludec 200 unit/mL (3 80 unit (0.4 mL) SUBCUT DAILY #18 10/12/23 12/12/23 12/12/23 Rx mL) subcutaneous pen (Tresiba mL FlexTouch U-200 insulin) pantoprazole 40 mg tablet,delayed 40 mg PO DAILY 10/12/23 12/12/23 12/12/23 History release nystatin 100,000 unit/gram topical 1 applic topical BID #15 grams 10/26/23 12/12/23 12/12/23 Rx powder (Nystop) hydroxyzine pamoate 50 mg capsule 50 mg PO .at bedtime #90 caps 10/28/23 12/12/23 12/11/23 Rx Bariatric emy lift #1 ea 11/04/23 12/12/23 Unknown Rx blood sugar diagnostic (OneTouch #100 ea 11/21/23 12/12/23 Unknown Rx Ultra Test strips) pen needle, diabetic 31 gauge x #200 ea 11/21/23 12/12/23 Unknown Rx 5/16 (TechLITE Pen Needle) potassium chloride 10 mEq 10 meq PO BID #60 tabs 11/21/23 12/12/23 12/12/23 Rx tablet,extended release insulin lispro 100 unit/mL See Rx Instructions SUBCUT 11/25/23 12/12/23 12/12/23 Rx subcutaneous pen (Humalog KwikPen .COMPLEX #15 mL (U-100) Insulin) nitroglycerin 0.4 mg sublingual 0.4 mg sublingual Q5M PRN Chest 11/25/23 12/12/23 Unknown Rx tablet (Nitrostat) Pain #50 tabs ferrous sulfate 325 mg (65 mg 325 mg PO DAILY #30 tabs 11/30/23 12/12/23 12/12/23 08:00 Rx iron) tablet,delayed release Allergies Allergy/AdvReac Type Severity Reaction Status Date / Time acetaminophen [From [place]] Allergy Unknown Verified 12/12/23 14:09 bacitracin Allergy ADR-Nausea Verified 12/12/23 14:09 codeine Allergy ADR-Nausea Verified 12/12/23 14:09 hydrocodone [From [place]] Allergy Unknown Verified 12/12/23 14:09 Latex, Natural Rubber Allergy Unknown Verified 12/12/23 14:09 morphine Allergy ADR-Itching Verified 12/12/23 14:09 neomycin Allergy ALGY-Rash Verified 12/12/23 14:09 [From Neosporin ([id number])] polymyxin B Allergy ALGY-Rash Verified 12/12/23 14:09 [From Neosporin ([id number])] Sulfa (Sulfonamide Allergy ADR-Nausea Verified 12/12/23 14:09 Antibiotics) sulfamethoxazole Allergy Unknown Verified 12/12/23 14:09 [From Bactrim] trimethoprim [From Bactrim] Allergy Unknown Verified 12/12/23 14:09 spironolactone AdvReac Severe temporary Uncoded 12/12/23 14:09 blindness PFSH Acute PFSH: Medical History Type 2 diabetes mellitus with diabetic chronic kidney disease Gastric ulcer H. pylori ruled out at [facility]-acquired pneumonia Acute exacerbation of CHF (congestive heart failure) Acute on chronic renal failure Diabetic gastroparesis Hypoxia Anemia Positive GIFTY (antinuclear antibody) Frequent falls Muscle spasm High risk medication use Seronegative rheumatoid arthritis of both hands Diabetic foot Hip pain, left Benign hypertension Atypical chest pain IgM monoclonal gammopathy of uncertain significance Chronic diastolic heart failure Intermittent atrial fibrillation Chest pain Edema CKD (chronic kidney disease) stage 3, GFR 30-59 ml/min Urinary disorder Anxiety Pneumonitis Left lumbar radiculopathy Back pain Lymph edema Fracture of distal end of fibula Syncope and collapse Essential tremor Mobility impaired IBS (irritable bowel syndrome) Inflammatory arthritis Chronic back pain Chronic major depressive disorder Peripheral neuropathy Polyarthralgia Edema, peripheral Noncompliance with diabetes treatment Not consistent with diet Near syncope Monoclonal gammopathy Major depression Diabetic neuropathy associated with type 2 diabetes mellitus Severe obstructive sleep apnea Mild cognitive impairment with memory loss Dietary noncompliance Atrial flutter Coronary artery fistula Chronic obstructive pulmonary disease, unspecified Obesity CKD (chronic kidney disease) Benign hypertension Fibromyalgia Diverticulosis Environmental and seasonal allergies Situational anxiety Vitamin D deficiency Surgical History History of left heart catheterization (2017) No significant obstructive coronary disease Hx of esophagogastroduodenoscopy Hx of colonoscopy History of tonsillectomy History of section 4 times History of cholecystectomy (1993) History of hysterectomy (1997) with BSO Family History Brother Bleeding disorder CAD (coronary artery disease) Father CAD (coronary artery disease) Chronic kidney disease (CKD) Mother CAD (coronary artery disease) Cancer Diabetes Family/Other Cancer Other CHF (congestive heart failure) Heart disease Hypertension Denies family history of Clotting disorder Dementia Suicide Anesthesia complication Lung disease Stroke Social History Smoking and tobacco/nicotine status: former use of tobacco/nicotine Quit status (tobacco/nicotine): has quit using Year quit tobacco: 1990 Former quit date comment: smoked 20+ years Second hand smoke exposure: No Alcohol intake: never Substance/Drug Use: never Adopted: No Caregiver/support person: Yes Lives independently: No Household members: children and other Details: Son, sometimes grandson Housing: House Marital status: Single service: No Current occupational status: disabled Do you think of yourself as: Straight/Heterosexual Current gender identity: Female Vitals/I&O/Wt Last Vital Signs Temp 100.6 F H 12/30/23 09:24 Pulse 98 12/30/23 09:24 Resp 20 H 12/30/23 09:24 BP 164/105 12/30/23 09:24 Pulse Ox 100 12/30/23 08:12 O2 Del Method BiPAP 12/30/23 08:10 O2 Flow Rate 4 12/30/23 04:00 FiO2 30 12/30/23 08:12 12/29/23 12/30/23 12/30/23 22:59 06:59 14:59 Intake Total 205 / 2051 392 / 2444 Output Total 6811 / 6811 125 / 6936 Balance -4759 / -4759 267 / -4492 Weight last 48 hrs Weight 141.521 kg Weight 143.471 kg Weight 145.966 kg Physical Exam Skin: OTHER: Urinary Catheter Management: Latex Free: Cath Placed During This Visit: yes, but has since been removed by the nurse Reason for Continuing Indwelling Catheter: Accurate Measurement of Urinary Output in Critically Ill Patients Urinary Catheter Date of Insertion: 12/12/23 Urinary Catheter Time of Insertion: 15:39 Date Urinary Catheter Removed: 12/27/23 Time Urinary Catheter Discontinued: 12:52 Juárez Latex Free: Cath Placed During This Visit: yes Reason for Continuing Indwelling Catheter: Accurate Measurement of Urinary Output in Critically Ill Patients Urinary Catheter Date of Insertion: 12/27/23 Urinary Catheter Time of Insertion: 12:54 Data 12/30/23 03:55 12/30/23 05:31 Micro: Microbiology 12/29/23 11:12 Blood Culture - Preliminary Blood SPECIMEN COLLECTED 12/29/23 11:07 Blood Culture - Preliminary Blood SPECIMEN COLLECTED Coding Level of Care Code Acute Code for [facility] Fwcharmaine
--- NOTE | 2023-12-30 09:59 | P.PN_ITS ---
Subjective 2 Subjective: Patient seen at bedside on BiPAP Following commands-appears deconditioned Today plan is to keep her out of bed to chair and continue physical therapy Will transition to nasal cannula. She will get hemodialysis today. Continue NG tube feeds. Other labs and imaging revealed Vitals/I&O/Wt Last Vital Signs Temp 100.6 F H 12/30/23 09:24 Pulse 98 12/30/23 09:24 Resp 20 H 12/30/23 09:24 BP 164/105 12/30/23 09:24 Pulse Ox 100 12/30/23 08:12 O2 Del Method BiPAP 12/30/23 08:10 O2 Flow Rate 4 12/30/23 04:00 FiO2 30 12/30/23 08:12 12/29/23 12/30/23 12/30/23 22:59 06:59 14:59 Intake Total 2051 / 2051 392 / 2444 Output Total 6811 / 6811 125 / 6936 Balance -4759 / -4759 267 / -4492 Weight last 48 hrs Weight 141.521 kg Weight 143.471 kg Weight 145.966 kg Physical Exam 2 Narrative: General: No acute distress. Sick appearing, weak, lethargic the more awake than yesterday, on waking up AO x 2-3 sitting up in chair, dried chapped lips HEENT normocephalic atraumatic no lymphadenopathy no thyromegaly neck supple, dry chapped lips Respiratory breath sounds decreased bilaterally no wheezes rubs or rhonchi, mild fine crackles bilateral lower zone Cardiac regular rhythm regular rate heart sounds distant, 1+ pulses in the left lower extremity, right radial pulse 2+ Abdomen normal bowel sounds, obese, distended, edema noted in the lower abdomen especially on the left, abdominal scars with no adipose tissue from previous surgeries noted below the umbilicus, no tenderness to palpation deferred Extremities 1+ edema bilateral lower extremities, 4/5 strength throughout, no pain, normal sensation Neurologic decreased vision on the right, decreased mobility of right upper extremity Const: COMMON NORMALS: alert GENERAL APPEARANCE: cooperative and patient mechanically ventilated ORIENTATION/CONSCIOUSNESS: Yes awake OTHER: Waking up. HENMT: COMMON NORMALS: oropharynx normal Neck/C-Spine: COMMON NORMALS: no JVD Resp: COMMON NORMALS: normal respiratory effort and clear to auscultation bilaterally AUSCULTATION: clear to auscultation bilaterally Cardio: COMMON NORMALS: no JVD, regular rhythm, S1 normal heart sound present, S2 normal heart sound present and No murmurs present (Cardio) RHYTHM: regular rhythm HEART SOUNDS: S1 normal heart sound present and S2 normal heart sound present GI: COMMON NORMALS: Normal to inspection, nondistended, normoactive bowel sounds present, Soft to palpation and non-tender PALPATION: Yes Soft to palpation Extremity: COMMON NORMALS: no joint enlargement OTHER: Anasarca continue to improve. both lower extremities and upper extremities. Hands are warm, perfused. Neuro: COMMON NORMALS: moves all extremities SENSORIUM/ORIENTATION: Yes alert Skin: OTHER: Urinary Catheter Management: Latex Free: Cath Placed During This Visit: yes, but has since been removed by the nurse Reason for Continuing Indwelling Catheter: Accurate Measurement of Urinary Output in Critically Ill Patients Urinary Catheter Date of Insertion: 12/12/23 Urinary Catheter Time of Insertion: 15:39 Date Urinary Catheter Removed: 12/27/23 Time Urinary Catheter Discontinued: 12:52 Juárez Latex Free: Cath Placed During This Visit: yes Reason for Continuing Indwelling Catheter: Accurate Measurement of Urinary Output in Critically Ill Patients Urinary Catheter Date of Insertion: 12/27/23 Urinary Catheter Time of Insertion: 12:54 Data 12/30/23 03:55 12/30/23 05:31 Micro: Microbiology 12/29/23 11:12 Blood Culture - Preliminary Blood SPECIMEN COLLECTED 12/29/23 11:07 Blood Culture - Preliminary Blood SPECIMEN COLLECTED A&P Assessment and plan (1) Acute metabolic encephalopathy: Most likely in setting of prolonged intubation requiring fentanyl and propofol. Improving. Does have severe physical deconditioning. Today patient is AO x 2 3. Hold off on any further Xanax. Limit pain medications. Continue with home dose of pain medications orally every 8 hours as needed. Gabapentin 100 mg twice daily, continue home dose of Prozac. Holding off on trazodone. Out of bed to chair. Check ammonia levels. PT/OT/speech evaluation. Daughter requesting CT head today to rule out stroke. Sons at bedside. Patient declining CT head. We did discuss that if CT head shows stroke she would not be a candidate for tenecteplase but is already on baby aspirin, statin. Though her symptoms of weakness is more so generalized in setting of physical deconditioning from prolonged intubation and dramatic hospitalization. Family for now verbalized understanding and agreeable. (2) Fever: Overnight patient had episode of fever up to 100.8. No leukocytosis. Patient has been on antibiotic coverage since admission for last 15 days with last dose of meropenem on 12/28. Last dose of Zyvox on 12/27 Check respiratory viral panel, sputum culture, urinalysis, urine culture, blood culture. LFTs are slightly deranged today. Will check CT abdomen pelvis to rule out acalculous cholecystitis. Restart antibiotics for now with broad-spectrum with IV vancomycin and meropenem as per renal functions. (3) SOB (shortness of breath): In setting of congestive heart failure along with severe obstructive sleep apnea in a patient with end-stage renal disease. Successfully extubated to BiPAP on 12/27. Given severe obstructive sleep apnea with COPD and congestive heart failure in setting of CKD stage V patient is at high risk of failure to extubation. Will need to continue to monitor. Sputum culture at the time of intubation negative. Pneumonia less likely. Given broad-spectrum antibiotics with Zyvox and meropenem. Will discontinue antibiotics. Last day of meropenem 0 12/28. Continue DuoNebs every 6 hour, Pulmicort twice daily. Continue to assess for dialysis daily depending on fluid status. (4) ROSEMARIE (acute kidney injury): On CKD stage V. Nephrology recommendations appreciated. Continue with hemodialysis. Temporary hemodialysis catheter in place. Once patient is more hemodynamically stable and extubated most likely patient will need dialysis as an outpatient as well. Case management alerted for possibility of outpatient dialysis. (5) Acute exacerbation of congestive heart failure: Continue dialysis. Reviewed electrolytes. Echocardiogram showed ejection fraction within normal limits right ventricular dilation bilateral atrial enlarged tricuspid regurgitation no pericardial. Most likely diastolic heart failure. Patient takes Bumex 2 mg twice daily at home. Overall around 1200 cc negative since admission. With very poor response to aggressive diuresis with worsening of renal functions. Continue with fluid restriction up to 1500 cc. Strict input charting, daily weights. Juárez catheterization. Juárez to be changed on 12/27 Qualifiers: Heart failure type: unspecified Qualified Code(s): I50.9 - Heart failure, unspecified (6) LIZ (obstructive sleep apnea): Continue BiPAP ventilation overnight. Will plan for repeat ABG in a.m. and break to BiPAP with possibility of transition to heated high flow as possible. (7) Chronic obstructive pulmonary disease, unspecified: Nebulization treatment as above. Qualifiers: COPD type: unspecified COPD Qualified Code(s): J44.9 - Chronic obstructive pulmonary disease, unspecified (8) Anemia: Hemoglobin so far stable. Last transfusion of 12/15. Anemia likely related to chronic kidney disease, autoimmune disease. Continue with Protonix twice daily. Continue with oral iron supplementation. Qualifiers: Anemia type: iron deficiency Iron deficiency anemia type: inadequate dietary iron intake Qualified Code(s): D50.8 - Other iron deficiency anemias (9) Type 2 diabetes mellitus with diabetic chronic kidney disease: Continue with insulin sliding scale. Holding off on long-acting insulin. Insulin sliding scale and blood sugar checks every 6 hours. Qualifiers: Diabetes mellitus terminal superintendent insulin use: with mcfp use Chronic kidney disease stage: stage 4 (severe) Qualified Code(s): E11.22 - Type 2 diabetes mellitus with diabetic chronic kidney disease; N18.4 - Chronic kidney disease, stage 4 (severe); Z79.4 - watermaster (current) use of insulin (10) Goals of care, counseling/discussion: (11) CKD (chronic kidney disease) stage 4, GFR 15-29 ml/min: (12) Physical deconditioning: Plan UTI: Complicated UTI with MDRO Klebsiella resistant to all antibiotics except ceramics and and imipenem. Continue with meropenem renally dosed for now. Will need for as needed meropenem dosed postdialysis. Antibiotic discontinued on 12/28. Hypertension: Goal blood pressure less than 140/90 mmHg. Blood pressure is elevated today post extubation and removal of sedation. Continue with hydralazine 100 mg 3 times daily, Imdur 60 mg twice daily. Will restart other medications as per goal blood pressures after dialysis. Analgesia:oxycodone 5 mg every 8 hours as needed, 0.2 IV Dilaudid every 6 as needed Glycemic control: Sliding scale every 6 hours Nutrition: Tube feeds with Nepro at 10 cc/h increase 10 cc every 4 hour with goal of 50 cc/h, free water flushes 100 cc every 8 hours. CODE STATUS: Full code PUD prophylaxis: Protonix DVT prophylaxis: Heparin 5000 every 12 hourly PT/OT/speech evaluation. Discharge planning: Patient has been accepted at [facility]. Did require P2p at [facility]. Patient has been accepted. Conversation with the physician. Plan to discharge in next 24 hours. Continue with care at ICU. Patient's care discussed in detail with family at bedside with daughter over the phone. We discussed the plan further would be a possible transfer to LTAC within next 24 hours if she remains stable. Discussed that her somnolence is improving and she is severely physically deconditioned for which she requires aggressive therapies along with initiation of oral diet when possible till then we will continue the NG tube feeding. Also discussed that currently CT head cannot be done as patient is denying more over she is already on aspirin and statin and patient is not a candidate for tPA. This documentation was created by [employer] strategic procurement manager software. Every effort was made to ensure accuracy of strategic procurement manager. Any obvious errors or omissions should be clarified with the author of the document. Coding Level of Care Code Acute Code for Chg Fwd Diagnoses Acute metabolic encephalopathy G93.41 Fever R50.9 SOB (shortness of breath) R06.02 ROSEMARIE (acute kidney injury) N17.9 Acute exacerbation of congestive heart failure I50.9 Heart failure type: unspecified LIZ (obstructive sleep apnea) G47.33 Chronic obstructive pulmonary disease, unspecified COPD type J44.9 COPD type: unspecified COPD Iron deficiency anemia secondary to inadequate dietary iron intake D50.8 Anemia type: iron deficiency Iron deficiency anemia type: inadequate dietary iron intake Type 2 diabetes mellitus with stage 4 chronic kidney disease, with long-term current use of insulin E11.22; N18.4; Z79.4 Diabetes mellitus terminal superintendent insulin use: with terminal superintendent use Chronic kidney disease stage: stage 4 (severe) Goals of care, counseling/discussion Z71.89 CKD (chronic kidney disease) stage 4, GFR 15-29 ml/min N18.4 Physical deconditioning R53.81
--- NOTE | 2023-12-30 10:11 | PC.NURSE ---
Hospitalist at bedside Pt was asked regarding her understanding of our continous of care and treatments. She nod her head and Pt stated, as long as i get out of here.
[2023-12-30] MEDS: aspirin 81 mg EC Tablet PO (10:23)
[2023-12-30] MEDS: ferrous sulfate EC 325 mg Tablet PO (10:23)
[2023-12-30] MEDS: gabapentin 100 mg Capsule PO (10:23)
[2023-12-30] MEDS: isosorbide mononitrate ER 60 mg Tablet PO (10:23)
[2023-12-30] MEDS: hyDRALAzine 50 mg Tablet 100 MG PO (10:24)
[2023-12-30] MEDS: sennosides-docusate Tablet 2 TAB PO (10:24)
[2023-12-30] MEDS: fluoxetine 20 mg Capsule PO (10:24)
--- NOTE | 2023-12-30 11:46 | CT_ITS ---
WS: [id number] CT HEAD TECHNIQUE: Noncontrast CT of the head obtained from the skullbase to the vertex. CLINICAL INFORMATION: Weakness COMPARISON: CT 04/14/2022 DLP: 1798.[address] scans at [facility] use at least one of these dose optimization techniques: automated e xposure control; mA and/or kV adjustment per patient size (includes targeted exams where dose is matc hed to clinical indication); or iterative reconstruction. FINDINGS: No evidence of intracranial hemorrhage or mass effect. Ventricular system and basal cisterns are cabello nt. Mild small vessel changes with moderate parenchymal volume loss. No extra-axial fluid collections . No evidence of mass or mass effect. Intracranial vascular calcification. Paranasal sinuses and mastoid air cells are well aerated. .Normal visualized soft tissues. IMPRESSION: 1. No evidence of intracranial hemorrhage or mass effect. 2. No acute intracranial findings.
[2023-12-30] MEDS: vancomycin 1,000 MG in sodium chloride 0.9% 250 ML 250 MG IV (12:07)
[2023-12-30] MEDS: meropenem 500 MG in sodium chloride 0.9% (plus) 50 ML 100 MG IV (12:08)
[2023-12-30] MEDS: ibuprofen 600 mg Tablet PO (12:09)
--- NOTE | 2023-12-30 12:31 | P.PN_ITS ---
Subjective 2 Subjective: s/p HD Medications: Reviewed: Yes Vitals/I&O/Wt Last Vital Signs Temp 100.6 F H 12/30/23 09:24 Pulse 98 12/30/23 09:24 Resp 20 H 12/30/23 09:24 BP 164/105 12/30/23 09:24 Pulse Ox 100 12/30/23 08:12 O2 Del Method BiPAP 12/30/23 08:10 O2 Flow Rate 4 12/30/23 04:00 FiO2 30 12/30/23 08:12 12/29/23 12/30/23 12/30/23 22:59 06:59 14:59 Intake Total 2051 / 2051 392 / 2444 Output Total 6811 / 6811 125 / 6936 Balance -4759 / -4759 267 / -4492 Weight last 48 hrs Weight 141.521 kg Weight 143.471 kg Weight 145.966 kg Physical Exam 2 Narrative: somnolent , Urinary Catheter Management: Latex Free: Cath Placed During This Visit: yes, but has since been removed by the nurse Reason for Continuing Indwelling Catheter: Accurate Measurement of Urinary Output in Critically Ill Patients Urinary Catheter Date of Insertion: 12/12/23 Urinary Catheter Time of Insertion: 15:39 Date Urinary Catheter Removed: 12/27/23 Time Urinary Catheter Discontinued: 12:52 Juárez Latex Free: Cath Placed During This Visit: yes Reason for Continuing Indwelling Catheter: Accurate Measurement of Urinary Output in Critically Ill Patients Urinary Catheter Date of Insertion: 12/27/23 Urinary Catheter Time of Insertion: 12:54 Data 12/30/23 03:55 12/30/23 05:31 Micro: Microbiology 12/29/23 11:12 Blood Culture - Preliminary Blood NEGATIVE TO DATE 12/29/23 11:07 Blood Culture - Preliminary Blood NEGATIVE TO DATE 12/30/23 11:05 Blood Culture - Preliminary Blood SPECIMEN COLLECTED 12/30/23 10:05 Blood Culture - Preliminary Blood SPECIMEN COLLECTED A&P Assessment and plan (1) Acute kidney injury superimposed on chronic kidney disease: Plan 1. Acute on chronic kidney disease stage III: Patient' baseseline creatinine of 1.5-1.9, has multiple ROSEMARIE's in the past. -was on Lasix drip with IV albumin every 8 hours, + metolazone 2.5 mg bid daily-->switched to bumex , with inadequate diuresis . - S/P tunnelled catheter placement and getting HD , HD again today - pt requires [facility] , no renal recovery yet -2 g sodium restriction and 1500 mL fluid restriction 2. Anemia: s/p transfusion ,will add BOUCHRA 3. Diastolic CHF, UF as above, echo 4. Acute on chronic respiratory failure, multifactorial, Intubated , patient has history of COPD, LIZ and CHF--> extubated on 12/27/2023, may need trach 5. History of diabetes Patient evaluated using audiovisual cart. Time spent 20 minutes. Attestations 2 Medical Necessity Statement*: per rolandowy Coding Level of Care Code Acute Code for Chg Fwd Diagnoses Acute kidney injury superimposed on chronic kidney disease N17.9; N18.9
[2023-12-30 12:42] LABS: Glucose Point of Care 198 mg/dL (70-110)
--- NOTE | 2023-12-30 12:44 | PM.TDS ---
Transfer Summary Providers Date of Admission: 12/12/23 17:23 Date of Discharge/Transfer: 12/30/23 Attending Provider at Admission: Brett Raphael MD Attending Provider at Transfer: Tom Styles MD Consults: Pulmonology: Dr. Dasilva Telemetry nephrology Surgery: Dr. Hunt Cardiology: Dr. Aquino Primary Care Provider: PARAG Mensah Transfer Plans: Anticipated date of transfer: 12/30/23. Receiving Facility: Long-term acute facility. Receiving Provider: Dr. Gonzalez/Dr. Lam. Diagnoses at Discharge Discharge Diagnosis (1) Acute kidney injury superimposed on chronic kidney disease: Status: Acute (2) Acute exacerbation of congestive heart failure: Status: Acute Qualifiers: Heart failure type: unspecified Qualified Code(s): I50.9 - Heart failure, unspecified (3) Reduced ejection fraction concurrent with and due to chronic heart failure: Status: Chronic (4) Type 2 diabetes mellitus with diabetic chronic kidney disease: Status: Acute Qualifiers: Chronic kidney disease stage: stage 4 (severe) Diabetes mellitus termite 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 insulin use: with jail use Qualified Code(s): E11.22 - Type 2 diabetes mellitus with diabetic chronic kidney disease; N18.4 - Chronic kidney disease, stage 4 (severe); Z79.4 - termite 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 (current) use of insulin (5) Anemia: Status: Chronic Qualifiers: Anemia type: iron deficiency Iron deficiency anemia type: inadequate dietary iron intake Qualified Code(s): D50.8 - Other iron deficiency anemias (6) LIZ (obstructive sleep apnea): Status: Acute (7) Physical deconditioning: Status: Acute (8) Fever: Status: Acute (9) Generalized edema: Status: Acute (10) Chronic obstructive pulmonary disease, unspecified: Status: Acute Qualifiers: COPD type: unspecified COPD Qualified Code(s): J44.9 - Chronic obstructive pulmonary disease, unspecified (11) Difficult ventilator weaning: Status: Acute (12) Acute metabolic encephalopathy: Status: Acute (13) Goals of care, counseling/discussion: Status: Acute Reason for Visit Reason for Visit abd pain Brief History: History as per HPI: 12/12/2023: Jennifer Novak is a 68 year old female with multiple medical problems, is presenting with progressive shortness of breath and worsening swelling of the extremities sustained to the abdomen. Patient has a history of chronic heart failure with a preserved LV ejection fraction and chronic kidney disease. This patient is known to have chronic diastolic heart failure with intermittent exacerbation. She had multiple hospital admissions and ER visits with a decompensated heart failure. In July of last year, she was admitted to this hospital with features of acute kidney injury, diastolic heart failure and hypoxic respiratory failure. Because of worsening kidney function, nephrology was consulted and a temporary dialysis catheter was placed in the femoral vein. Apparently t the procedure was complicated with massive bleeding requiring blood transfusion. Subsequently she was transferred to the [facility] in [place]. The patient spent almost a month there in the hospital. the details of this hospital admission is not available at this time. She was discharged home on 2 L of oxygen by nasal cannula. She was readmitted to this hospital within few days after the discharge with worsening shortness of breath. She was treated with diuretics and other symptomatic measures and was discharged home. Initially she was treated with a Lasix and then was switched to Bumex. According to the patient, she might have lost around 60 pounds during the hospital admission and that she gradually gained back most of this since the discharge. She was finding it difficult to get up and move around because of the swelling in the legs and the shortness of breath. She also felt swelling of the abdominal wall and heaviness in the abdomen. 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 She currently denies any chest pain. No fever or chills. She may have a dry cough. No palpitation, dizziness or syncopal episode. No abdominal pain or dysuria. On 09/18/18 she underwent coronary angiography secondary to chest pain and abnormal nuclear imaging stress test. She was found to have no significant disease in the left main, LAD, circumflex or RCA. One of the diagonal branches of the LAD was found to have a fistulous communication with the LV. LVEF was 55%, LVEDP was 14 mmHg. Hospital Course Hospital Course Patient was admitted to the hospital further evaluation and management of hypoxia in setting of acute on chronic congestive heart failure along with severe obstructive sleep apnea, COPD in setting of ROSEMARIE on stage V CKD. At first she was started on aggressive IV diuresis. Nephrology was consulted. She was tried on different kind of IV diuresis including Lasix drip and Bumex drip without too much improvement in her symptoms and urine output along with renal functions. On admission there is also concern for UTI for which she was started on broad-spectrum antibiotics. Urine culture came back positive for MDRO Klebsiella. Further treatment plan was discussed in detail with the patient and she was agreeable for dialysis. Surgery was consulted and she underwent tunneled dialysis catheter placement on 12/20/2023. Postprocedure patient was brought in back to the ICU in intubated state. Patient was started on hemodialysis. Her hospitalization was complicated Difficult weaning of mechanical ventilator given baseline diagnosis of anxiety, severe sleep apnea and COPD along with congestive heart failure. Eventually patient was extubated to BiPAP on 12/27. Currently she has been getting hemodialysis with last session of hemodialysis was 12/30. She is getting tube feeds through NG tube at 50 cc/h. Patient has severe physical deconditioning with episodes of anxiety for which her home antianxiety medications have been continued except Xanax to avoid respiratory depression. Patient has been tolerating 2 L of oxygen supplementation at rest and BiPAP while sleeping. From 12/29 patient has been spiking fevers for which she has been continued on IV antibiotics, blood cultures have been sent out. CT abdomen pelvis was done which ruled out acute abnormality, patient has remained on stable oxygen supplementation, respiratory viral panel has been proven negative. Blood cultures so far have remained negative. Because of prolonged hospitalization, prolonged intubation patient has severe physical deconditioning, requires aggressive physical, speech and occupational therapy along with hemodialysis going forward safe discharge planning was discussed in detail and options discussed for possible discharge to SNF versus LTAC with LTAC being a better option given the requirement of the patient. Patient was accepted at LTAC and is being transferred in hemodynamically stable condition. Prior to transfer further goals of care discussions were done in detail with patient's sons at bedside, patient and daughter Ms. Vail who is also the DPOA over the phone. We discussed patient is developing new fevers for last 24 hours which could be in setting of bacteremia versus antibiotic fever versus inflammatory fevers for which further workup has been sent out including blood cultures and it would be okay for patient to stay in the hospital for longer while source of fevers are worked up and antibiotics are continued and viral infections have been ruled out without acute abnormality on CT abdomen/pelvis. Though patient herself has been really insistent on being transferred to LTAC for further management. Family after discussing amongst themselves wanted to transfer to LTAC. Lines in place: Left PICC line in place?12/26. Juárez catheter?replaced on 12/27 Tunneled hemodialysis catheter replaced on 12/20. IV meropenem?12/19- 12/28. Restarted 12/29 IV Zyvox?12/22 - 12/27 IV vancomycin?12/29?currently running Physical Exam Const: COMMON NORMALS: alert GENERAL APPEARANCE: cooperative, anxious, Edematous and other (Chronically sick appearing, tired, dry chapped lips) ORIENTATION/CONSCIOUSNESS: Yes awake, Yes oriented to person, Yes oriented to place and Yes oriented to time HENMT: COMMON NORMALS: normocephalic, atraumatic, external ears normal and oropharynx normal HEAD & SCALP: normocephalic and atraumatic EXTERNAL EAR: Yes external ears normal Neck/C-Spine: COMMON NORMALS: no lymphadenopathy, no JVD and No carotid bruits Chest: COMMONS NORMALS: normal inspection of the chest and normal palpation of entire chest wall Resp: COMMON NORMALS: normal respiratory effort and clear to auscultation bilaterally AUSCULTATION: clear to auscultation bilaterally and rales OTHER: Mild basilar crackles bilaterally. Right hemithorax hemodialysis catheter in place with mild erythema around the catheter site and suture site Cardio: COMMON NORMALS: no JVD, regular rate, regular rhythm, S1 normal heart sound present, S2 normal heart sound present and No murmurs present (Cardio) RATE: regular rate RHYTHM: regular rhythm HEART SOUNDS: S1 normal heart sound present and S2 normal heart sound present GI: COMMON NORMALS: Normal to inspection, nondistended, normoactive bowel sounds present, Soft to palpation and non-tender INSPECTION: Yes central obesity AUSCULTATION: Yes Hypoactive bowel sounds present and No Abdominal bruit PALPATION: Yes Soft to palpation Extremity: COMMON NORMALS: no joint enlargement NARRATIVE EXTREMITY EXAM: 1+ lower extremity edema. LEFT UPPER EXTREMITY: Yes upper arm Left upper arm: Yes inspection and Yes neurovascular exam, Yes elbow joint, Yes lower arm Left lower arm: Yes inspection, Yes wrist and Yes hand & digits RIGHT LOWER EXTREMITY: Yes foot & digits LEFT LOWER EXTREMITY: Yes ankle joint Left ankle: Yes inspection, Yes palpation, Yes neurovascular exam and Yes other and Yes foot & digits Neuro: COMMON NORMALS: moves all extremities SENSORIUM/ORIENTATION: Yes alert, Yes oriented to person, Yes oriented to place, Yes oriented to time and Yes other (Tired, chronically sick appearing) SPEECH: abnormal speech Details: garbled (Occasionally) Urinary Catheter Management: Latex Free: Cath Placed During This Visit: yes, but has since been removed by the nurse Reason for Continuing Indwelling Catheter: Accurate Measurement of Urinary Output in Critically Ill Patients Urinary Catheter Date of Insertion: 12/12/23 Urinary Catheter Time of Insertion: 15:39 Date Urinary Catheter Removed: 12/27/23 Time Urinary Catheter Discontinued: 12:52 Juárez Latex Free: Cath Placed During This Visit: yes Reason for Continuing Indwelling Catheter: Accurate Measurement of Urinary Output in Critically Ill Patients Urinary Catheter Date of Insertion: 12/27/23 Urinary Catheter Time of Insertion: 12:54 TS Data Studies Completed and Pending Pending at discharge Category Date Time Status CT head wo con* [id number] Routine Cat Scan 12/30/23 11:46 Ordered Blood Culture Stat Lab 12/29/23 11:12 Results Blood Culture Stat Lab 12/30/23 11:05 Results Complete Blood Count w/Auto AM LABS Lab 12/31/23 04:00 Ordered Complete Blood Count w/Auto AM LABS Lab 01/01/24 04:00 Ordered Complete Blood Count w/Auto AM LABS Lab 01/02/24 04:00 Ordered Comprehensive Metabolic Panel AM LABS Lab 12/31/23 04:00 Ordered Comprehensive Metabolic Panel AM LABS Lab 01/01/24 04:00 Ordered Comprehensive Metabolic Panel AM LABS Lab 01/02/24 04:00 Ordered Occult Blood Stool [Immunochemical Fecal OCB] Routine Lab 12/21/23 19:48 Uncollected Sputum Culture and Gram Stain Stat Lab 12/29/23 14:55 Uncollected Urine Culture Routine Lab 12/29/23 10:20 Received Completed Studies During Hospitalization Category Date Time Status CT abdomen pelvis wo con [id number] Stat Cat Scan 12/29/23 22:01 Completed CXRP [XR chest 1V portable [id number]] Routine Exams 12/17/23 11:06 Completed CXRP [XR chest 1V portable [id number]] Routine Exams 12/20/23 08:40 Completed CXRP [XR chest 1V portable [id number]] Routine Exams 12/25/23 06:33 Completed CXRP [XR chest 1V portable [id number]] Routine Exams 12/26/23 13:27 Completed XR chest 1V portable [id number] Routine Exams 12/20/23 10:10 Completed XR chest 1V portable [id number] Routine Exams 12/20/23 12:19 Completed XR chest 1V portable [id number] Routine Exams 12/22/23 06:00 Completed XR chest 1V portable [id number] Routine Exams 12/23/23 08:17 Completed XR chest 1V portable [id number] Routine Exams 12/24/23 06:00 Completed XR chest 1V portable [id number] Routine Exams 12/26/23 08:35 Completed XR chest 1V portable [id number] Routine Exams 12/27/23 11:47 Completed XR chest 1V portable [id number] Routine Exams 12/28/23 06:00 Completed XR chest 1V portable [id number] Stat Exams 12/12/23 14:47 [place] [id number] Routine Ultrasound 12/19/23 15:40 Completed CV. echo wo/w contrast [id number] Routine Ultrasound 12/14/23 08:34 Completed US venous duplex lower extremity bilat [CV venous Ultrasound 12/12/23 18:53 [place] [id number]] Routine Laboratory Last Values WBC 9.88 10^3/uL (3.29-11.43) 12/30/23 03:55 RBC 3.04 10^6/uL (3.85-5.65) L 12/30/23 03:55 Hgb 8.60 g/dL (11.27-16.99) L 12/30/23 03:55 Hct 27.2 % (36-47) L 12/30/23 03:55 MCV 89.5 fl (85-98) 12/30/23 03:55 MCH 28.3 pg (27-33) 12/30/23 03:55 MCHC 31.6 g/dL (30-55) 12/30/23 03:55 RDW 15.8 % (12.1-15.1) H 12/30/23 03:55 Plt Count 143 10^3/cmm (157-399) L 12/30/23 03:55 MPV 8.9 fL (7.4-10.4) 12/30/23 03:55 Neut % (Auto) 75.3 % 12/30/23 03:55 Lymph % (Auto) 7.4 % 12/30/23 03:55 [place] % (Auto) 10.1 % 12/30/23 03:55 Eos % (Auto) 4.4 % 12/30/23 03:55 Baso % (Auto) 0.6 % 12/30/23 03:55 Neut # (Auto) 7.44 10^3/uL (1.8-7.7) 12/30/23 03:55 Lymph # (Auto) 0.7 10^3/uL (0.8-4.8) L 12/30/23 03:55 [place] # (Auto) 1.0 10^3/uL (0.2-0.9) H 12/30/23 03:55 Eos # (Auto) 0.4 10^3/uL (0.0-0.8) 12/30/23 03:55 Baso # (Auto) 0.1 10^3/uL (0.0-0.1) 12/30/23 03:55 Nucleated RBC % (auto) 0 % 12/30/23 03:55 Nucleated RBCs # 0.0 /100WBC 12/30/23 03:55 PT 15.70 SECONDS (12.1-14.9) H 12/12/23 14:58 INR 1.21 (0.8-1.2) H 12/12/23 14:58 Specimen Type Arterial 12/28/23 06:25 Sample Site Not Reportable 12/28/23 06:25 ABG pH 7.37 (7.35-7.45) 12/28/23 03:35 ABG pCO2 46.1 mmHg (35-45) H 12/28/23 03:35 ABG pO2 46.0 mmHg (80.0-100.0) L 12/28/23 03:35 ABG PO2/FiO2 Ratio 0 12/28/23 03:35 ABG HCO3 26.8 mmol/L (22-26) H 12/28/23 03:35 ABG O2 Saturation 86.4 12/28/23 03:35 ABG Base Excess 1.3 mmol/L (-2.0-2.0) 12/28/23 03:35 Sharad Test Pos 12/28/23 06:25 VBG pH 7.37 (7.32-7.42) 12/28/23 06:25 VBG pCO2 45.2 mmHg (41-51) 12/28/23 06:25 VBG pO2 148.0 mmHg (25-40) H 12/28/23 06:25 VBG HCO3 26.1 mmol/L (24-28) 12/28/23 06:25 VBG Base Excess 0.6 mmol/L (-3.0-3.0) 12/28/23 06:25 VBG Hematocrit 27.5 % (37-47) L 12/28/23 06:25 A-a O2 Gradient 14.6 mmHg (5-10) H 12/28/23 03:35 Hematocrit 27.7 % (37-47) L 12/28/23 03:35 Hgb O2 Saturation 84.3 % (95-100) L 12/28/23 03:35 Carboxyhemoglobin 1.6 %THgb (0.4-20.1) 12/28/23 03:35 Methemoglobin 0.8 % (0.4-1.5) 12/28/23 03:35 Total Hemoglobin 9.0 g/dL (12-16) L 12/28/23 03:35 Sodium 139.0 mmol/L (131-143) 12/28/23 03:35 Potassium 3.6 mmol/L (3.5-5.0) 12/28/23 03:35 Glucose 114.0 mg/dL (70-115) 12/28/23 03:35 Ionized Calcium 1.3 mmol/L (1.1-1.4) 12/28/23 03:35 O2 Delivery Device Bipap 12/28/23 06:25 O2 Liters/Min 2.0 % 12/17/23 11:20 FiO2 40.0 % 12/28/23 06:25 Tidal Volume 0.41 12/24/23 04:25 PEEP 8.0 cmH20 12/27/23 15:06 Chefs ID [email or web address] 12/28/23 06:25 Sodium 137 mmol/L (136-145) 12/30/23 05:31 Potassium 3.4 mmol/L (3.5-5.1) L 12/30/23 05:31 Chloride 97 mmol/L (98-107) L 12/30/23 05:31 Carbon Dioxide 26 mmol/L (22-29) 12/30/23 05:31 Anion Gap 17.4 (5-19) 12/30/23 05:31 BUN 27 mg/dL (8-23) H 12/30/23 05:31 Creatinine 2.2 mg/dL (0.5-0.9) H 12/30/23 05:31 GFR Calculation 22.3 mL/min (90-130) L 12/30/23 05:31 Glucose 218 mg/dL (65-115) H 12/30/23 05:31 POC Glucose 198 mg/dL (70-110) H 12/30/23 12:31 Calculated Osmolality 296 mOsm/kg (285-295) H 12/30/23 05:31 Calcium 9.8 mg/dL (8.5-10.5) 12/30/23 05:31 Magnesium 2.8 mg/dL (1.7-2.3) H 12/17/23 03:05 Total Bilirubin 0.4 mg/dL (0.15-1.2) 12/30/23 05:31 AST 58 U/L (0-32) H 12/30/23 05:31 ALT 39 U/L (0-33) H 12/30/23 05:31 Alkaline Phosphatase 118 U/L (35-105) H 12/30/23 05:31 Ammonia 36 umol/L (11-51) 12/29/23 10:28 Creatine Kinase 38 U/L (26-192) 12/19/23 04:09 Troponin T Baseline 73 ng/L (0-10) H 12/12/23 14:58 Troponin T 120 Minute 70.53 ng/L (0-10) H 12/12/23 16:53 Delta Troponin T -2.47 ABS# (0-10) L 12/12/23 16:53 Troponin T Hi Sens 6Hr 70.55 ng/L (0-10) H 12/12/23 20:29 Troponin T Hi Sens 6Hr Delta -2.45 ng/L (0-12) L 12/12/23 20:29 NT-Pro-B Natriuret Pep 9694 pg/mL (0-125) H 12/12/23 14:58 Total Protein 7.3 g/dL (6.6-8.7) 12/30/23 05:31 Albumin 3.9 g/dL (3.5-5.2) 12/30/23 05:31 Globulin 3.4 g/dL (1.3-4.6) 12/30/23 05:31 Urine Color Brown (Yellow) A 12/29/23 10:20 Urine Appearance Cloudy (CLEAR) A 12/29/23 10:20 Urine pH 5 (5-7) 12/29/23 10:20 Ur Specific [place] 1.020 (1.005-1.030) 12/29/23 10:20 Urine Protein 3+ (Negative) H 12/29/23 10:20 Urine Glucose (UA) Norm (Normal) 12/29/23 10:20 Urine Ketones 1+ (Negative) H 12/29/23 10:20 Urine Blood 2+ (Negative) H 12/29/23 10:20 Urine Nitrate Negative (Negative) 12/29/23 10:20 Urine Bilirubin Neg (Negative) 12/29/23 10:20 Urine Urobilinogen Norm mg/dL (Negative) 12/29/23 10:20 Ur Leukocyte Esterase 2+ (Negative) H 12/29/23 10:20 Urine RBC 25-40 /hpf (0-2) H 12/29/23 10:20 Urine WBC 15-25 /hpf (0-5) H 12/29/23 10:20 Ur Squamous Epith Cells 0-4 /hpf (0-5) H 12/29/23 10:20 Ur Transition Epith Cell 0-4 /hpf 12/29/23 10:20 Amorphous Sediment 1+ /hpf 12/29/23 10:20 Urine Bacteria 1+ /hpf (NONE) H 12/29/23 10:20 Hyaline Casts 0-4 /lpf H 12/29/23 10:20 Urine Mucus 2+ /hpf 12/29/23 10:20 Urine Yeast 2+ /hpf H 12/29/23 10:20 Ur Random Sodium 57 mmol/L 12/17/23 12:30 Ur Random Potassium 60 mmol/L 12/17/23 12:30 Ur Random Chloride 96 mmol/L 12/17/23 12:30 Urine Creatinine 47 mg/dL (28-217) 12/17/23 12:30 Adenovirus (PCR) Not detected (NOT DETECT) 12/29/23 10:20 C. pneumoniae DNA (PCR) Not detected (NOT DETECT) 12/29/23 10:20 Coronavirus 229E (PCR) Not detected (NOT DETECT) 12/29/23 10:20 Hep Bs Antigen Non-reactive (Nonreactive) 12/20/23 06:04 Hep Bs Antibody 5.5 (11.5-1000) L 12/20/23 06:04 Hep B Core Total Ab Non-reactive (Nonreactive) 12/20/23 06:04 Human Metapneumovir PCR Not detected (NOT DETECT) 12/29/23 10:20 Influenza A (H1) PCR Not detected (NOT DETECT) 12/29/23 10:20 Influ A (H1/09) PCR Not detected (NOT DETECT) 12/29/23 10:20 Influenza A (H3) PCR Not detected (NOT DETECT) 12/29/23 10:20 Influenza Type A (PCR) Not detected (NOT DETECT) 12/29/23 10:20 Influenza Type B (PCR) Not detected (NOT DETECT) 12/29/23 10:20 M. pneumoniae (PCR) Not detected (NOT DETECT) 12/29/23 10:20 Parainfluenza 1 (PCR) Not detected (NOT DETECT) 12/29/23 10:20 Parainfluenza 2 (PCR) Not detected (NOT DETECT) 12/29/23 10:20 Parainfluenza 3 (PCR) Not detected (NOT DETECT) 12/29/23 10:20 Parainfluenza 4 (PCR) Not detected (NOT DETECT) 12/29/23 10:20 RSV Type A (PCR) Not detected (NOT DETECT) 12/29/23 10:20 RSV Type B (PCR) Not detected (NOT DETECT) 12/29/23 10:20 Entero/Rhino (PCR) Not detected (NOT DETECT) 12/29/23 10:20 SARS-CoV-2 (PCR) Not detected (NOT DETECT) 12/29/23 10:20 MRSA (PCR) Not detected (NOT DETECTED) 12/22/23 21:25 Blood Type B Positive 12/15/23 07:46 Rho(D) Type Rh positive 12/15/23 07:46 Antibody Screen Negative 12/15/23 07:46 Crossmatch See Detail 12/15/23 07:46 Radiology Impressions Venous Duplex 12/19/23 15:40 IMPRESSION: No evidence of deep vein thrombosis. Chest X-Ray 12/28/23 06:00 IMPRESSION: No significant change. Abdomen/Pelvis CT 12/29/23 22:01 IMPRESSION: 1. The gallbladder is absent. No intrahepatic or extrahepatic biliary ductal dilatation. 2. Extensive fat stranding in the subcutaneous fat of the left lateral abdomen and pelvis and to a lesser extent the right lateral pelvis and flank which can be seen the setting of panniculitis. Microbiology 12/29/23 11:12 Blood Blood Culture - Preliminary NEGATIVE TO DATE 12/29/23 11:07 Blood Blood Culture - Preliminary NEGATIVE TO DATE 12/30/23 11:05 Blood Blood Culture - Preliminary SPECIMEN COLLECTED 12/30/23 10:05 Blood Blood Culture - Preliminary SPECIMEN COLLECTED 12/20/23 11:00 Sputum - Endotracheal Tube Aspirate Gram Stain - Final 12/20/23 11:00 Sputum - Endotracheal Tube Aspirate Sputum Culture - Final 12/17/23 12:30 Urine,Clean Catch Urine Culture - Final Klebsiella pneumonia esbl Imaging Echo: Radiologist's impression: CONCLUSIONS Study is a suboptimal quality because of the poor apical been technical difficulties. (Echo contrast - Optison was used to delineate the endocardium and to estimate the LV ejection fraction) The echo contrast also was a suboptimal quality. The LV ejection fraction appears to be within normal limits. Right ventricular appears to be mildly dilated with a diminished slightly diminished ejection fraction. Mild biatrial enlargement. Moderate tricuspid valve regurgitation. Thickened mitral valve No pericardial effusion Technically difficult study. Comparison with the previous study is difficult, for this reason. Dr Sammy Aquino MD [facility] (Electronically Signed) Final Date: 14 December 2023 Recent Clincial Data Last Vital Signs Temp 100.6 F H 12/30/23 09:24 Pulse 98 12/30/23 09:24 Resp 20 H 12/30/23 09:24 BP 164/105 12/30/23 09:24 Pulse Ox 100 12/30/23 08:12 O2 Del Method BiPAP 12/30/23 08:10 O2 Flow Rate 4 12/30/23 04:00 FiO2 30 12/30/23 08:12 Vital Signs Temp Pulse Resp BP Pulse Ox O2 Del Method O2 Flow Rate 12/30/23 09:24 100.6 F H 98 20 H 164/105 12/30/23 08:12 95 100 12/30/23 08:10 95 17 100 BiPAP 12/30/23 08:00 96 17 164/105 100 12/30/23 07:00 107 H 18 170/78 12/30/23 06:00 99.7 F H 102 H 17 139/75 97 BiPAP 12/30/23 05:39 114 H 12/30/23 05:00 106 H 24 H 174/80 99 12/30/23 04:00 99.2 F 103 H 24 H 182/67 97 Nasal Cannula 4 12/30/23 03:24 103 H 100 12/30/23 03:23 104 H 23 H 99 BiPAP 12/30/23 03:00 102 H 177/77 99 12/30/23 02:00 100.5 F H 108 H 21 H 178/81 95 Nasal Cannula 4 12/30/23 01:00 105 H 25 H 172/74 FiO2 12/30/23 09:24 12/30/23 08:12 30 12/30/23 08:10 30 12/30/23 08:00 12/30/23 07:00 12/30/23 06:00 30 12/30/23 05:39 12/30/23 05:00 12/30/23 04:00 12/30/23 03:24 30 12/30/23 03:23 30 12/30/23 03:00 12/30/23 02:00 12/30/23 01:00 Intake & Output/Weight 12/28/23 12/29/23 12/30/23 12/31/23 06:59 06:59 06:59 06:59 Intake Total 718.897 / 349.225 2872 / 1186 2444 / 2444 Output Total 3550 / 3550 170 / 170 6936 / 6936 Balance -2831.103 / -2831.103 1016 / 1016 -4492 / -4492 Weight 146.057 kg 145.966 kg 141.521 kg Vitals Last Vital Signs Temp 100.6 F H 12/30/23 09:24 Pulse 98 12/30/23 09:24 Resp 20 H 12/30/23 09:24 BP 164/105 12/30/23 09:24 Pulse Ox 100 12/30/23 08:12 O2 Del Method BiPAP 12/30/23 08:10 O2 Flow Rate 4 12/30/23 04:00 FiO2 30 12/30/23 08:12 TS Medications Medications Acetaminophen (Acetaminophen 325 Mg Tablet) 325 mg PO Q6H PRN PRN Reason: MILD PAIN Albuterol/Ipratropium (Ipratropium-Albuterol 3 Ml Neb) 3 ml INHALATION Q6H.RESP [facility] Last Admin: 12/30/23 08:10 Dose: 3 ml Amlodipine Besylate (Amlodipine 10 Mg Tablet) 10 mg PO DAILY [facility] Last Admin: 12/19/23 08:18 Dose: 10 mg Aspirin (Aspirin 81 Mg Ec Tablet) 81 mg PO DAILY [facility] Last Admin: 12/30/23 10:23 Dose: 81 mg Atorvastatin Calcium (Atorvastatin 40 Mg Tablet) 20 mg PO BEDTIME [facility] Last Admin: 12/29/23 19:15 Dose: 20 mg Budesonide (Budesonide 0.5 Mg/2 Ml Neb) 0.5 mg INHALATION BID.RESPIRATORY [facility] Last Admin: 12/30/23 08:10 Dose: 0.5 mg Dextrose (Dextrose 50% Syringe 50 Ml) 25 ml IVP ONCE PRN; Protocol PRN Reason: hypoglycemia protocol Dextrose (Dextrose 50% Syringe 50 Ml) 50 ml IVP PRN PRN; Protocol PRN Reason: hypoglycemia protocol Ferrous Sulfate (Ferrous Sulfate Ec 325 Mg Tablet) 325 mg PO DAILY [facility] Last Admin: 12/30/23 10:23 Dose: 325 mg Fluoxetine HCl (Fluoxetine 20 Mg Capsule) 20 mg PO DAILY [facility] Last Admin: 12/30/23 10:24 Dose: 20 mg Gabapentin (Gabapentin 100 Mg Capsule) 100 mg PO BID [facility] Last Admin: 12/30/23 10:23 Dose: 100 mg Heparin Sodium (Porcine) (Heparin 5,000 Unit/Ml Inj 1 Ml) 5,000 unit SUBCUT Q12H [facility] Last Admin: 12/30/23 10:25 Dose: Not Given Hydralazine HCl (Hydralazine 50 Mg Tablet) 100 mg PO TID [facility] Last Admin: 12/30/23 10:24 Dose: 100 mg Hydromorphone HCl (Hydromorphone 1 Mg/Ml Inj 1 Ml) 0.2 mg IVP Q6H PRN PRN Reason: PAIN Dextrose (D5w) 500 mls @ 0 mls/hr IV ONCE PRN; Protocol PRN Reason: Adult Acute Hypoglycemia Prot Albumin Human (Albumin) 25 g in 100 mls @ 60 mls/hr IV Q8H [facility] Last Infusion: 12/19/23 16:14 Dose: Infused Vancomycin HCl 1,000 mg/ (Sodium Chloride) 250 mls @ 250 mls/hr IV Q48H [facility]; Protocol Last Admin: 12/30/23 12:07 Dose: 250 mls/hr Meropenem 500 mg/ Sodium (Chloride) 50 mls @ 100 mls/hr IV Q24H [facility]; Protocol Last Admin: 12/30/23 12:08 Dose: 100 mls/hr Sodium Chloride (Sodium Chloride 0.9%) 1,000 mls @ 0 mls/hr IV .Q0M PRN PRN Reason: hypotension or symptomatic Albumin Human (Albumin) 12.5 gm in 50 mls @ 60 mls/hr IV PRN PRN PRN Reason: Hypotension and/or symptomatic Ibuprofen (Ibuprofen 600 Mg Tablet) 600 mg PO TID [facility] Last Admin: 12/30/23 12:09 Dose: 600 mg Insulin Glargine (Insulin Glargine 100 Units/1 Ml) 20 unit SUBCUT DAILY [facility] Last Admin: 12/19/23 08:18 Dose: 20 unit Insulin Human Lispro (Insulin Lispro 100 Unit/1 Ml) 0 unit SUBCUT Q6H [facility]; Protocol Last Admin: 12/30/23 04:05 Dose: 4 unit Isosorbide Mononitrate (Isosorbide Mononitrate Er 60 Mg Tablet) 60 mg PO BID [facility] Last Admin: 12/30/23 10:23 Dose: 60 mg Lanolin (Lanolin Oint 7 Gm) 1 applic TOPICAL PRN PRN PRN Reason: DRYNESS Last Admin: 12/23/23 14:24 Dose: 1 applic Multi-Ingredient Ointment (Eucerin Cream 113 Gm Jar) 1 applic TOPICAL PRN PRN PRN Reason: DRYNESS Naloxone HCl (Naloxone 0.4 Mg/Ml Sdv) 0.4 mg IVP PRN PRN PRN Reason: RESPIRATORY RATE < 8/MIN Nystatin (Nystatin Powder 30 Gm Btl) 1 applic TOPICAL BID [facility] Last Admin: 12/30/23 11:51 Dose: Not Given Ondansetron HCl (Ondansetron 2 Mg/Ml Sdv 2 Ml) 4 mg IVP Q6H PRN PRN Reason: vomiting, or N/V if npo Oxycodone HCl (Oxycodone 5 Mg Ir Tab/Cap) 5 mg PO Q8H PRN PRN Reason: MODERATE PAIN Pantoprazole Sodium (Pantoprazole 40 Mg Sdv) 40 mg IVP Q12H [facility] Last Admin: 12/30/23 05:07 Dose: 40 mg Senna/Docusate Sodium (Sennosides-Docusate Tablet) 2 tab PO BID [facility] Last Admin: 12/30/23 10:24 Dose: 2 tab Trazodone HCl (Trazodone 100 Mg Tablet) 100 mg PO BEDTIME [facility] Last Admin: 12/19/23 22:00 Dose: 100 mg Discontinued Medications Albuterol/Ipratropium (Ipratropium-Albuterol 3 Ml Neb) 3 ml INHALATION Q6H PRN PRN Reason: SHORTNESS OF BREATH Last Admin: 12/18/23 08:54 Dose: 3 ml Alprazolam (Alprazolam 0.5 Mg Tablet) 0.5 mg PO TID PRN PRN Reason: ANXIETY Last Admin: 12/27/23 22:11 Dose: 0.5 mg Benzocaine (Cetylpyridinium Lozenge) 1 each MUCOUS MEM Q2H PRN PRN Reason: SORE THROAT Last Admin: 12/17/23 08:38 Dose: 1 each Bumetanide (Bumetanide 0.25 Mg/Ml Sdv 10 Ml) 2 mg IVP ONCE ONE Stop: 12/17/23 11:18 Last Admin: 12/17/23 11:45 Dose: 2 mg Bumetanide (Bumetanide 0.25 Mg/Ml Sdv 10 Ml) 2 mg IVP ONCE ONE Stop: 12/17/23 12:52 Last Admin: 12/17/23 13:40 Dose: 2 mg Bumetanide (Bumetanide 0.25 Mg/Ml Sdv 10 Ml) 2 mg IVP Q12H [facility] Bumetanide (Bumetanide 0.25 Mg/Ml Sdv 10 Ml) 2 mg IVP Q8H [facility] Last Admin: 12/18/23 07:44 Dose: 2 mg Cefazolin Sodium (Cefazolin 1,000 Mg Sdv) Confirm Administered Dose 1,000 mg .ROUTE .STK-MED ONE Stop: 12/20/23 06:51 Cefazolin Sodium (Cefazolin 1,000 Mg Sdv) 1,000 mg IRRIGATION ONCE ONE; Protocol Stop: 12/20/23 08:04 Last Admin: 12/20/23 08:04 Dose: 1,000 mg Chlorhexidine Gluconate (Chlorhexidine Gluconate 4% Btl 118 Ml) 1 applic TOPICAL BID [facility] Last Admin: 12/19/23 22:45 Dose: Not Given Cyclobenzaprine HCl (Cyclobenzaprine 10 Mg Tablet) 5 mg PO TID PRN PRN Reason: MUSCLE SPASMS Last Admin: 12/15/23 06:22 Dose: 5 mg Cyclobenzaprine HCl (Cyclobenzaprine 10 Mg Tablet) 10 mg PO TID PRN PRN Reason: MUSCLE SPASMS Last Admin: 12/17/23 08:38 Dose: 10 mg Epoetin [place] (Epoetin [place] 1000 Unit/0.05 Ml (Esrd)) 20,000 unit IVP NOW ONE Stop: 12/21/23 10:28 Last Admin: 12/21/23 12:32 Dose: 20,000 unit Epoetin [place] (Epoetin [place] 1000 Unit/0.05 Ml (Esrd)) 20,000 unit IVP NOW ONE Stop: 12/24/23 07:31 Last Admin: 12/24/23 12:06 Dose: 20,000 unit Fentanyl (Fentanyl 50 Mcg/Ml Inj 2ml) 50 mcg IVP ONCE ONE Stop: 12/12/23 16:41 Last Admin: 12/12/23 16:45 Dose: 50 mcg Fentanyl (Fentanyl 50 Mcg/Ml Inj 2ml) Confirm Administered Dose 100 mcg .ROUTE .STK-MED ONE Stop: 12/20/23 06:53 Fluoxetine HCl (Fluoxetine 20 Mg Capsule) 40 mg PO BEDTIME [facility] Furosemide (Furosemide 10 Mg/Ml Sdv 10ml) 80 mg IVP ONCE ONE Stop: 12/12/23 17:21 Last Admin: 12/12/23 17:48 Dose: 80 mg Furosemide (Furosemide 10 Mg/Ml Sdv 10ml) 80 mg IVP Q8H [facility] Last Admin: 12/14/23 10:44 Dose: 80 mg Furosemide (Furosemide 10 Mg/Ml Sdv 10ml) Confirm Administered Dose 100 mg .ROUTE .STK-MED ONE Stop: 12/16/23 05:08 Last Admin: 12/16/23 05:29 Dose: Not Given Furosemide (Furosemide 10 Mg/Ml Sdv 10ml) 60 mg IVP ONCE ONE Stop: 12/28/23 08:39 Last Admin: 12/28/23 09:05 Dose: 60 mg Heparin Sodium (Porcine) (Heparin 5,000 Unit/Ml Inj 1 Ml) 5,000 unit SUBCUT Q12H [facility] Last Admin: 12/19/23 06:43 Dose: 5,000 unit Heparin Sodium (Porcine) (Heparin, Porcine 1,000 Unit/Ml Inj 10 Ml) 10,000 unit INTRACATH ONCE ONE Stop: 12/20/23 07:01 Last Admin: 12/20/23 13:44 Dose: Not Given Heparin Sodium (Porcine) (Heparin, Porcine 1,000 Unit/Ml Inj 10 Ml) 1,000 unit IV ONCE ONE Stop: 12/20/23 07:01 Last Admin: 12/20/23 13:25 Dose: 1,000 unit Heparin Sodium (Porcine) (Heparin, Porcine 1,000 Unit/Ml Inj 10 Ml) 10,000 unit INTRACATH ONCE ONE Stop: 12/20/23 08:08 Last Admin: 12/20/23 08:10 Dose: 6,000 unit Heparin Sodium (Porcine) (Heparin, Porcine 1,000 Unit/Ml Inj 10 Ml) 10,000 unit INTRACATH ONCE ONE Stop: 12/20/23 13:44 Last Admin: 12/20/23 15:17 Dose: 10,000 unit Heparin Sodium (Porcine) (Heparin, Porcine 1,000 Unit/Ml Inj 10 Ml) 10,000 unit INTRACATH ONCE ONE Stop: 12/21/23 08:14 Last Admin: 12/21/23 12:36 Dose: 10,000 unit Heparin Sodium (Porcine) (Heparin, Porcine 1,000 Unit/Ml Inj 10 Ml) 1,000 unit IV ONCE ONE Stop: 12/21/23 08:14 Last Admin: 12/21/23 11:00 Dose: 1,000 unit Heparin Sodium (Porcine) (Heparin, Porcine 1,000 Unit/Ml Inj 10 Ml) 1,000 unit IV ONCE ONE Stop: 12/22/23 07:08 Last Admin: 12/22/23 08:41 Dose: 1,000 unit Heparin Sodium (Porcine) (Heparin, Porcine 1,000 Unit/Ml Inj 10 Ml) 10,000 unit INTRACATH ONCE ONE Stop: 12/23/23 09:07 Last Admin: 12/23/23 13:38 Dose: 10,000 unit Heparin Sodium (Porcine) (Heparin, Porcine 1,000 Unit/Ml Inj 10 Ml) 10,000 unit INTRACATH ONCE ONE Stop: 12/24/23 07:15 Last Admin: 12/24/23 12:33 Dose: Not Given Heparin Sodium (Porcine) (Heparin, Porcine 1,000 Unit/Ml Inj 10 Ml) 1,000 unit IV ONCE ONE Stop: 12/24/23 07:15 Last Admin: 12/24/23 09:21 Dose: 1,000 unit Heparin Sodium (Porcine) (Heparin, Porcine 1,000 Unit/Ml Inj 10 Ml) 10,000 unit INTRACATH ONCE ONE Stop: 12/24/23 09:31 Last Admin: 12/24/23 12:07 Dose: 10,000 unit Heparin Sodium (Porcine) (Heparin, Porcine 1,000 Unit/Ml Inj 10 Ml) 1,000 unit IV ONCE ONE Stop: 12/24/23 09:31 Last Admin: 12/24/23 12:33 Dose: Not Given Heparin Sodium (Porcine) (Heparin, Porcine 1,000 Unit/Ml Inj 10 Ml) 10,000 unit INTRACATH ONCE ONE Stop: 12/25/23 13:06 Last Admin: 12/25/23 17:54 Dose: 10,000 unit Heparin Sodium (Porcine) (Heparin, Porcine 1,000 Unit/Ml Inj 10 Ml) 1,000 unit IV ONCE ONE Stop: 12/25/23 13:06 Last Admin: 12/25/23 14:01 Dose: 1,000 unit Heparin Sodium (Porcine) (Heparin, Porcine 1,000 Unit/Ml Inj 10 Ml) 10,000 unit INTRACATH ONCE ONE Stop: 12/25/23 17:01 Last Admin: 12/25/23 19:30 Dose: Not Given Heparin Sodium (Porcine) (Heparin, Porcine 1,000 Unit/Ml Inj 10 Ml) 1,000 unit IV ONCE ONE Stop: 12/25/23 17:01 Last Admin: 12/25/23 19:31 Dose: Not Given Heparin Sodium (Porcine) (Heparin, Porcine 1,000 Unit/Ml Inj 10 Ml) 1,000 unit IV ONCE ONE Stop: 12/26/23 21:46 Last Admin: 12/27/23 07:33 Dose: 1,000 unit Heparin Sodium (Porcine) (Heparin, Porcine 1,000 Unit/Ml Inj 10 Ml) 1,000 unit IV ONCE ONE Stop: 12/27/23 07:01 Last Admin: 12/27/23 07:46 Dose: 1,000 unit Heparin Sodium (Porcine) (Heparin, Porcine 1,000 Unit/Ml Inj 10 Ml) 10,000 unit INTRACATH ONCE ONE Stop: 12/29/23 05:42 Last Admin: 12/29/23 15:40 Dose: 10,000 unit Heparin Sodium (Porcine) (Heparin, Porcine 1,000 Unit/Ml Inj 10 Ml) 1,000 unit IV PRN ONE Stop: 12/29/23 05:42 Last Admin: 12/29/23 15:39 Dose: 1,000 unit Heparin Sodium (Porcine) (Heparin, Porcine 1,000 Unit/Ml Inj 10 Ml) 10,000 unit INTRACATH ONCE ONE Stop: 12/29/23 15:16 Last Admin: 12/29/23 17:04 Dose: Not Given Heparin Sodium (Porcine) (Heparin, Porcine 1,000 Unit/Ml Inj 10 Ml) 1,000 unit IV PRN ONE Stop: 12/29/23 15:16 Last Admin: 12/29/23 17:04 Dose: Not Given Heparin Sodium (Porcine) (Heparin, Porcine 1,000 Unit/Ml Inj 10 Ml) 10,000 unit INTRACATH PRN ONE Stop: 12/30/23 07:06 Last Admin: 12/30/23 09:40 Dose: 10,000 unit Heparin Sodium (Porcine) (Heparin, Porcine 1,000 Unit/Ml Inj 10 Ml) 1,000 unit IV PRN ONE Stop: 12/30/23 07:06 Last Admin: 12/30/23 07:45 Dose: 1,000 unit Heparin Sodium (Porcine) (Heparin, Porcine 1,000 Unit/Ml Inj 10 Ml) 10,000 unit INTRACATH PRN ONE Stop: 12/30/23 09:46 Last Admin: 12/30/23 11:57 Dose: Not Given Heparin Sodium (Porcine) (Heparin, Porcine 1,000 Unit/Ml Inj 10 Ml) 1,000 unit IV PRN ONE Stop: 12/30/23 09:46 Last Admin: 12/30/23 11:58 Dose: Not Given Hydralazine HCl (Hydralazine 50 Mg Tablet) 50 mg PO TID [facility] Last Admin: 12/19/23 14:18 Dose: 50 mg Hydromorphone HCl (Hydromorphone 1 Mg/Ml Inj 1 Ml) 0.5 mg IVP ONCE ONE Stop: 12/13/23 00:02 Last Admin: 12/13/23 00:12 Dose: 0.5 mg Hydromorphone HCl (Hydromorphone 1 Mg/Ml Inj 1 Ml) 0.5 mg IVP Q6H PRN PRN Reason: PAIN Last Admin: 12/20/23 04:20 Dose: 0.5 mg Hydroxychloroquine Sulfate (Hydroxychloroquine 200 Mg Tablet) 200 mg PO Q12H [facility] Stop: 12/16/23 08:01 Last Admin: 12/14/23 08:21 Dose: 200 mg Hydroxychloroquine Sulfate (Hydroxychloroquine 200 Mg Tablet) 200 mg PO DAILY [facility] Stop: 12/17/23 09:01 Last Admin: 12/17/23 08:38 Dose: 200 mg Hydroxyzine Pamoate (Hydroxyzine 25 Mg Capsule) 25 mg PO ONCE ONE Stop: 12/12/23 21:16 Last Admin: 12/12/23 21:21 Dose: 25 mg Hydroxyzine Pamoate (Hydroxyzine 25 Mg Capsule) 25 mg PO ONCE ONE Stop: 12/13/23 18:27 Last Admin: 12/13/23 18:38 Dose: 25 mg Furosemide 100 mg/ Sodium (Chloride) 50 mls @ 0 mls/hr IV .Q0M [facility]; Protocol Last Titration: 12/12/23 19:08 Dose: Infused Furosemide 100 mg/ Sodium (Chloride) 50 mls @ 0 mls/hr IV .Q0M [facility]; Protocol Last Admin: 12/17/23 05:34 Dose: 40 mg/hr, 20 mls/hr Sodium Chloride (Sodium Chloride 0.9% (Plus)) Confirm Administered Dose 50 mls @ as directed .ROUTE .STK-MED ONE Stop: 12/16/23 05:10 Last Admin: 12/16/23 05:29 Dose: Not Given Sodium Chloride (Sodium Chloride 0.9%) Confirm Administered Dose 50 mls @ as directed .ROUTE .STK-MED ONE Stop: 12/16/23 05:17 Last Admin: 12/16/23 05:30 Dose: Not Given Meropenem 500 mg/ Sodium (Chloride) 50 mls @ 100 mls/hr IV Q24H [facility]; Protocol Meropenem 500 mg/ Sodium (Chloride) 50 mls @ 100 mls/hr IV Q24H [facility]; Protocol Last Infusion: 12/27/23 22:15 Dose: Infused Lidocaine HCl (Xylocaine) Confirm Administered Dose 5 mls @ as directed .ROUTE .STK-MED ONE Stop: 12/20/23 06:44 Heparin Sodium (Porcine) (Heparin, Porcine) Confirm Administered Dose 10 mls @ as directed .ROUTE .STK-MED ONE Stop: 12/20/23 06:50 Propofol (Diprivan) 1,000 mg in 100 mls @ 0 mls/hr IV .Q0M [facility]; Protocol Last Titration: 12/27/23 17:47 Dose: Infused Fentanyl (Sublimaze) 1,000 mcg in 100 mls @ 0 mls/hr IV .Q0M [facility]; Protocol Last Titration: 12/27/23 17:46 Dose: Infused Linezolid (Zyvox Premix) 600 mg in 300 mls @ 300 mls/hr IV Q12H [facility]; Protocol Stop: 12/27/23 17:29 Last Infusion: 12/27/23 06:14 Dose: Infused Sodium Chloride (Sodium Chloride 0.9%) 1,000 mls @ 0 mls/hr IV .Q0M PRN PRN Reason: hypotension or symptomatic Albumin Human (Albumin) 12.5 gm in 50 mls @ 60 mls/hr IV PRN PRN PRN Reason: Hypotension and/or symptomatic Meropenem 500 mg/ Sodium (Chloride) 50 mls @ 100 mls/hr IV PRN PRN PRN Reason: AFTER DIALYSIS Last Infusion: 12/27/23 11:45 Dose: Infused Sodium Chloride (Sodium Chloride 0.9%) 1,000 mls @ 0 mls/hr IV .Q0M PRN PRN Reason: hypotension or symptomatic Albumin Human (Albumin) 12.5 gm in 50 mls @ 60 mls/hr IV PRN PRN PRN Reason: Hypotension and/or symptomatic Sodium Chloride (Sodium Chloride 0.9%) 1,000 mls @ 0 mls/hr IV .Q0M PRN PRN Reason: hypotension or symptomatic Albumin Human (Albumin) 12.5 gm in 50 mls @ 60 mls/hr IV PRN PRN PRN Reason: Hypotension and/or symptomatic Acetaminophen (Acetaminophen) 1,000 mg in 100 mls @ 400 mls/hr IV ONCE ONE Stop: 12/29/23 17:09 Last Admin: 12/29/23 19:21 Dose: Not Given Vancomycin HCl 1,000 mg/ (Sodium Chloride) 250 mls @ 250 mls/hr IV Q48H [facility]; Protocol Meropenem 500 mg/ Sodium (Chloride) 50 mls @ 100 mls/hr IV DAILY [facility]; Protocol Vancomycin HCl 1,000 mg/ (Sodium Chloride) 250 mls @ 250 mls/hr IV Q48H [facility]; Protocol Last Admin: 12/29/23 20:06 Dose: Not Given Acetaminophen (Acetaminophen) 1,000 mg in 100 mls @ 400 mls/hr IV ONCE ONE Stop: 12/29/23 19:44 Last Admin: 12/29/23 19:25 Dose: 400 mls/hr Ibuprofen (Ibuprofen 200 Mg Tablet) 400 mg PO ONCE ONE Stop: 12/29/23 22:16 Last Admin: 12/29/23 22:58 Dose: 400 mg Insulin Glargine (Insulin Glargine 100 Units/1 Ml) 40 unit SUBCUT DAILY [facility] Last Admin: 12/13/23 08:35 Dose: 40 unit Insulin Glargine (Insulin Glargine 100 Units/1 Ml) 30 unit SUBCUT DAILY [facility] Last Admin: 12/14/23 08:21 Dose: 30 unit Insulin Human Lispro (Insulin Lispro 100 Unit/1 Ml) 0 unit SUBCUT WM&BEDTIME [facility]; Protocol Last Admin: 12/26/23 08:59 Dose: Not Given Isosorbide Mononitrate (Isosorbide Mononitrate Er 60 Mg Tablet) 60 mg PO DAILY [facility] Last Admin: 12/18/23 08:43 Dose: 60 mg Isosorbide Mononitrate (Isosorbide Mononitrate Er 30 Mg Tablet) 30 mg PO QPM [facility] Last Admin: 12/17/23 17:41 Dose: 30 mg Lidocaine HCl (Lidocaine 2% Inj 20 Ml) Confirm Administered Dose 20 ml .ROUTE .STK-MED ONE Stop: 12/20/23 06:51 Lidocaine HCl (Lidocaine 2% Inj 20 Ml) 20 ml INJECTION ONCE ONE Stop: 12/20/23 08:20 Last Admin: 12/20/23 08:20 Dose: 10 ml Metolazone (Metolazone 5 Mg Tablet) 5 mg PO ONCE ONE Stop: 12/14/23 07:40 Last Admin: 12/14/23 08:22 Dose: 5 mg Metolazone (Metolazone 5 Mg Tablet) 2.5 mg PO DAILY [facility] Last Admin: 12/16/23 08:53 Dose: 2.5 mg Metolazone (Metolazone 5 Mg Tablet) 2.5 mg PO BID [facility] Last Admin: 12/17/23 08:43 Dose: 2.5 mg Metoprolol Tartrate (Metoprolol Tartrate 25 Mg Tablet) 25 mg PO BID@0900,2100 [facility] Last Admin: 12/17/23 08:43 Dose: 25 mg Midazolam HCl (Midazolam 1 Mg/Ml Inj 5 Ml) Confirm Administered Dose 5 mg .ROUTE .STK-MED ONE Stop: 12/20/23 08:41 Norepinephrine Bitartrate (Norepinephrine 1 Mg/Ml Sdv 4 Ml) Confirm Administered Dose 4 mg .ROUTE .STK-MED ONE Stop: 12/20/23 06:52 Ondansetron HCl (Ondansetron 2 Mg/Ml Sdv 2 Ml) Confirm Administered Dose 4 mg .ROUTE .STK-MED ONE Stop: 12/20/23 06:44 Oxycodone HCl (Oxycodone 5 Mg Ir Tab/Cap) 5 mg PO Q8H PRN PRN Reason: MODERATE PAIN Last Admin: 12/13/23 18:39 Dose: 5 mg Oxycodone HCl (Oxycodone 5 Mg Ir Tab/Cap) 5 mg PO ONCE ONE Stop: 12/12/23 22:14 Last Admin: 12/12/23 22:24 Dose: 5 mg Oxycodone HCl (Oxycodone 5 Mg Ir Tab/Cap) 10 mg PO Q8H PRN PRN Reason: MODERATE PAIN Last Admin: 12/19/23 11:13 Dose: 10 mg Pantoprazole Sodium (Pantoprazole Dr 40 Mg Tablet) 40 mg PO BID [facility] Last Admin: 12/22/23 17:52 Dose: 40 mg Perflutren Protein Type A Microsphe (Perflutren Protein-A Microsphr 0.22 Mg/Ml Sdv 3 Ml) 0 ml IV ONCE ONE Stop: 12/14/23 10:48 Last Admin: 12/14/23 10:54 Dose: 3 ml Phenylephrine HCl (Phenylephrine 10 Mg/Ml Sdv 1 Ml) Confirm Administered Dose 10 mg .ROUTE .STK-MED ONE Stop: 12/20/23 06:45 Potassium Chloride (Potassium Chloride Oral Liq 20 Meq/15 Ml Udc) 20 meq PO ONCE ONE Stop: 12/26/23 22:34 Last Admin: 12/26/23 22:50 Dose: 20 meq Propofol (Propofol 10 Mg/Ml Sdv 20 Ml) Confirm Administered Dose 200 mg .ROUTE .STK-MED ONE Stop: 12/20/23 06:45 Rocuronium Central (Rocuronium 10 Mg/Ml Inj 5ml) Confirm Administered Dose 50 mg .ROUTE .STK-MED ONE Stop: 12/20/23 06:44 Sodium Chloride (Sodium Chloride 0.9% 100 Ml Bag) 50 ml IV PRN PRN PRN Reason: Blood transfusion prime and flush Stop: 12/16/23 07:17 Last Admin: 12/16/23 10:25 Dose: 50 ml Succinylcholine Chloride (Succinylcholine 20 Mg/Ml Sdv 10ml) Confirm Administered Dose 200 mg .ROUTE .STK-MED ONE Stop: 12/20/23 07:16 Allergies acetaminophen [From [place]] Allergy (Verified 12/12/23 14:09) Unknown bacitracin Allergy (Verified 12/12/23 14:09) ADR-Nausea codeine Allergy (Verified 12/12/23 14:09) ADR-Nausea hydrocodone [From [place]] Allergy (Verified 12/12/23 14:09) Unknown Latex, Natural Rubber Allergy (Verified 12/12/23 14:09) Unknown morphine Allergy (Verified 12/12/23 14:09) ADR-Itching neomycin [From Neosporin ([id number])] Allergy (Verified 12/12/23 14:09) ALGY-Rash polymyxin B [From Neosporin ([id number])] Allergy (Verified 12/12/23 14:09) ALGY-Rash Sulfa (Sulfonamide Antibiotics) Allergy (Verified 12/12/23 14:09) ADR-Nausea sulfamethoxazole [From Bactrim] Allergy (Verified 12/12/23 14:09) Unknown trimethoprim [From Bactrim] Allergy (Verified 12/12/23 14:09) Unknown spironolactone Adverse Reaction (Severe, 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 Home Medications cholecalciferol (vitamin D3) 125 mcg (5,000 unit) tablet (Vitamin D3) 125 mcg PO DAILY 05/14/21 [History Confirmed 12/12/23] acetaminophen 325 mg tablet 325 - 650 mg PO Q6H PRN Pain 12/13/21 [History Confirmed 12/12/23] cyanocobalamin (vitamin B-12) 50 mcg tablet (Vitamin B-12) 50 mcg PO DAILY ##0 04/12/22 [History Confirmed 12/12/23] blood-glucose meter ([employer] Ultra2 Meter kit) #1 ea 09/29/22 [Rx Confirmed 12/12/23] diabetic shoes with inserts #1 ea 02/25/23 [Rx Confirmed 12/12/23] isosorbide mononitrate 60 mg tablet,extended release 24 hr 60 mg PO DAILY #90 tabs 04/13/23 [Rx Confirmed 12/12/23] hydroxychloroquine 200 mg tablet 200 mg PO BID #180 tabs 05/02/23 [Rx Confirmed 12/12/23] triamcinolone acetonide 0.1 % topical ointment 1 applic topical DAILY PRN itching #30 grams 05/10/23 [Rx Confirmed 12/12/23] lancets 33 gauge ([employer] Lancets) #100 ea 05/13/23 [Rx Confirmed 12/12/23] lancing device with lancets kit ([employer] Plus Lancing Device kit) #1 ea 05/13/23 [Rx Confirmed 12/12/23] fluoxetine 20 mg capsule 20 mg PO DAILY 08/13/23 [History Confirmed 12/12/23] fluoxetine 40 mg capsule 40 mg PO BEDTIME 08/13/23 [History Confirmed 12/12/23] magnesium oxide 400 mg PO DAILY PRN Muscle Spasm 08/13/23 [History Confirmed 12/12/23] oxycodone 5 mg tablet 2.5 - 5 mg PO Q8H PRN Pain 09/08/23 [History Confirmed 12/12/23] rosuvastatin 10 mg tablet 10 mg PO QPM 09/08/23 [History Confirmed 12/12/23] albuterol sulfate 90 mcg/actuation aerosol inhaler (ProAir HFA) 2 puff inhalation Q4H PRN shortness of breath or wheezing #8.5 grams 10/26/23 [Rx Confirmed 12/12/23] amlodipine 10 mg tablet 10 mg PO DAILY #60 tabs 09/15/23 [Rx Confirmed 12/12/23] bumetanide 2 mg tablet 2 mg PO BID #90 tabs 09/15/23 [Rx Confirmed 12/12/23] hydralazine 25 mg tablet 50 mg (2 x 25 mg) PO TID #90 tabs 09/15/23 [Rx Confirmed 12/12/23] metoprolol tartrate 25 mg tablet 25 mg PO BID #60 tabs 09/15/23 [Rx Confirmed 12/12/23] dicyclomine 20 mg tablet 20 mg PO QID PRN stooling 10/12/23 [History Confirmed 12/12/23] insulin degludec 200 unit/mL (3 mL) subcutaneous pen ([employer] FlexTouch U-200 insulin) 80 unit (0.4 mL) SUBCUT DAILY #18 mL 10/12/23 [Rx Confirmed 12/12/23] pantoprazole 40 mg tablet,delayed release 40 mg PO DAILY 10/12/23 [History Confirmed 12/12/23] nystatin 100,000 unit/gram topical powder (Nystop) 1 applic topical BID #15 grams 10/26/23 [Rx Confirmed 12/12/23] hydroxyzine pamoate 50 mg capsule 50 mg PO .at bedtime #90 caps 10/28/23 [Rx Confirmed 12/12/23] Bariatric emy lift #1 ea 11/04/23 [Rx Confirmed 12/12/23] blood sugar diagnostic (OneTouch Ultra Test strips) #100 ea 11/21/23 [Rx Confirmed 12/12/23] pen needle, diabetic 31 gauge x 5/16 (Tech[employer] Pen Needle) #200 ea 11/21/23 [Rx Confirmed 12/12/23] potassium chloride 10 mEq tablet,extended release 10 meq PO BID #60 tabs 11/21/23 [Rx Confirmed 12/12/23] insulin lispro 100 unit/mL subcutaneous pen (Humalog KwikPen (U-100) Insulin) See Rx Instructions SUBCUT .COMPLEX #15 mL 11/25/23 [Rx Confirmed 12/12/23] nitroglycerin 0.4 mg sublingual tablet (Nitrostat) 0.4 mg sublingual Q5M PRN Chest Pain #50 tabs 11/25/23 [Rx Confirmed 12/12/23] ferrous sulfate 325 mg (65 mg iron) tablet,delayed release 325 mg PO DAILY #30 tabs 11/30/23 [Rx Confirmed 12/12/23] Discharge Plan Discharge Patient Disposition: Xfer [facility] Condition: Stable Prescriptions: No Action hydroxychloroquine 200 mg tablet 200 mg PO BID Qty: 180 1RF triamcinolone acetonide 0.1 % ointment 1 applic TOPICAL DAILY PRN (Reason: itching) Qty: 30 0RF Rx Instructions: skin arms, legs torso (DME) lancing device with lancets [[employer] Delica Plus Lanc Dev] Kit See Rx Instructions .Route Qty: 1 0RF Rx Instructions: As directed (DME) lancets [[employer] Delica Lancets] 33 gauge misc See Rx Instructions .Route Qty: 100 5RF Rx Instructions: three times day (DME) diabetic shoes with inserts See Rx Instructions .Route .MEDSUPPLY Qty: 1 0RF Rx Instructions: As directed dicyclomine 20 mg tablet 20 mg PO QID PRN (Reason: stooling) insulin degludec [Tresiba FlexTouch U-200] 200 unit/mL (3 mL) insulin pen 80 unit SUBCUT DAILY Qty: 18 2RF (DME) blood-glucose meter [Sqorduch Ultra2 Meter] Kit See Rx Instructions .Route Qty: 1 0RF Rx Instructions: As directed isosorbide mononitrate 60 mg tablet extended release 24 hr 60 mg PO DAILY Qty: 90 0RF Rx Instructions: 04/13/23 YOU NEED TO MAKE AN APPOINTMENT TO BE SEEN PRIOR TO ANY MORE REFILLS Nystop 100,000 unit/gram powder 1 applic topical BID Qty: 15 2RF hydroxyzine pamoate 50 mg capsule 50 mg PO .at bedtime Qty: 90 2RF (DME) Bariatric emy lift See Rx Instructions .Route .MEDSUPPLY Qty: 1 0RF Rx Instructions: BMI 57.5% weight 325# potassium chloride 10 mEq tablet extended release 10 meq PO BID Qty: 60 0RF Rx Instructions: only with bumex (DME) OneTouch Ultra Test Strip See Rx Instructions .Route Qty: 100 5RF Rx Instructions: 1 strip three time day (DME) pen needle, diabetic [TechLITE Pen Needle] 31 gauge x 5/16 needle See Rx Instructions .ROUTE .MEDSUPPLY Qty: 200 5RF Rx Instructions: use 4 times day insulin lispro [Humalog KwikPen Insulin] 100 unit/mL insulin pen See Rx Instructions SUBCUT .COMPLEX Qty: 15 0RF Rx Instructions: 6-27U SUBCUT three times daily subcutaneously; per sliding scale nitroglycerin [Nitrostat] 0.4 mg tablet, sublingual 0.4 mg SUBLINGUAL Q5M PRN (Reason: Chest Pain) Qty: 50 3RF Rx Instructions: do not exceed 3 doses per episode ferrous sulfate 325 mg (65 mg iron) tablet,delayed release (DR/EC) 325 mg PO DAILY Qty: 30 2RF cholecalciferol (vitamin D3) [Vitamin D3] 125 mcg (5,000 unit) Tablet 125 mcg PO DAILY acetaminophen 325 mg tablet 325 - 650 mg PO Q6H PRN (Reason: Pain) Vitamin B-12 50 mcg Tablet 50 mcg PO DAILY Qty: 0 fluoxetine 40 mg capsule 40 mg PO BEDTIME fluoxetine 20 mg capsule 20 mg PO DAILY magnesium oxide 400 mg magnesium tablet 400 mg PO DAILY PRN (Reason: Muscle Spasm) oxycodone 5 mg tablet 2.5 - 5 mg PO Q8H PRN (Reason: Pain) rosuvastatin 10 mg tablet 10 mg PO QPM metoprolol tartrate 25 mg tablet 25 mg PO BID Qty: 60 0RF amlodipine 10 mg tablet 10 mg PO DAILY Qty: 60 3RF hydralazine 25 mg Tablet 50 mg PO TID Qty: 90 2RF bumetanide 2 mg tablet 2 mg PO BID Qty: 90 0RF albuterol sulfate [ProAir HFA] 90 mcg/actuation HFA aerosol inhaler 2 puff INHALATION Q4H PRN (Reason: shortness of breath or wheezing) Qty: 8.5 3RF pantoprazole 40 mg tablet,delayed release (DR/EC) 40 mg PO DAILY Discharge Orders: Transfer Out of Facility (Order); Ordered 12/30/23 Ordered By: Tom Styles Referrals: Lorenzo Muller, SHOVEL LOG LOADER OPERATOR-C [Primary Care Provider] - Discharge Diet: Advance as tolerated Discharge Activity: Increase activity as tolerated Patient Instructions: Dialysis Diet (DC), Hemodialysis (DC), Opioid Safety Transfer Attestations Time Spent in Transfer Care: greater than 30 min (More than 70 minutes spent talking to family, additional 50 minutes assessing the patient multiple times during the day) Specific Discharge Activities: educating patient, educating and/or supporting family/caregiver, discussing with pcp/other providers, discussing with adult protective caseworker/social workers/dc planners, documenting/other paperwork and evaluating patient/reviewing data Status at Transfer: Cognitive status at transfer: mildly impaired cognition; Behavioral status at transfer: cooperative; Functional status at transfer: bed bound; Overall status at transfer: patient is progressing back to baseline Quality Metrics Clinical Quality Measures [ No reported AMI, CVA or VTE this stay] Coding Level of Care Code 16293 Total time (in minutes) for Discharge: 100 Diagnoses Acute kidney injury superimposed on chronic kidney disease N17.9; N18.9 Acute exacerbation of congestive heart failure I50.9 Heart failure type: unspecified Reduced ejection fraction concurrent with and due to chronic heart failure I50.22 Type 2 diabetes mellitus with stage 4 chronic kidney disease, with long-term current use of insulin E11.22; N18.4; Z79.4 Chronic kidney disease stage: stage 4 (severe) 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
--- NOTE | 2023-12-30 12:49 | PC.NURSE ---
Patient keeps telling her 2 sons at bedside that she wants to go to out of here. I asked the pt that she is going to select a terminal system operator care facility for acute care in [place] for continous of treatments. Pt said yes. Son Freddy is talking to Yajaira mead via phone about plan of continous care.
--- NOTE | 2023-12-30 13:59 | PC.NURSE ---
came back from ct head sons at bedside
--- NOTE | 2023-12-30 14:30 | PC.NURSE ---
Family asked about the result of her head ct informed son Luiz that her head ct result came back normal. reassurance provided. son appreciative.
--- NOTE | 2023-12-30 15:00 | PC.NURSE ---
report called to [facility] off report given to BLAKE engel. Informed 2 sons at bedside about ambulance will be here in 30 mins.
--- NOTE | 2023-12-30 16:57 | PC.HD ---
When changing dressing, cath site noted to be reddened. Dr Stephani phipps and in to see it, blood for culture collected per request, and Dr Olive phipps.
== END 2023-12-30 15:49 | disposition skilled nursing facility (03) | DRG 291 ==
LOC: ER 17:33 → CSU 18:02 → ICU 12-20 07:41
PROVIDERS: Hospitalist; Internal Medicine; Thoracic Surgery (Cardiothoracic Vascular Surgery); Admitting Provider Internal Medicine; Emergency Provider Internal Medicine; PCP Nurse Practitioner; Visit Provider Student in an Organized Health Care Education/Training Program
PROC: 0JH63XZ Insertion of Tunneled Vascular Access Device into Chest Subcutaneous Tissue and Fascia, Percutaneous Approach (ICD-10-PCS; principal; 2023-12-20 07:00)
DX: I13.2 Hypertensive heart and chronic kidney disease with heart failure and with stage 5 chronic kidney disease, or end stage renal disease (principal); G93.41 Metabolic encephalopathy; J96.22 Acute and chronic respiratory failure with hypercapnia; J96.21 Acute and chronic respiratory failure with hypoxia; I50.33 Acute on chronic diastolic (congestive) heart failure; Z68.43 Body mass index [BMI] 50.0-59.9, adult; N39.0 Urinary tract infection, site not specified; Z16.24 Resistance to multiple antibiotics; N17.9 Acute kidney failure, unspecified; D68.2 Hereditary deficiency of other clotting factors; N18.5 Chronic kidney disease, stage 5; D50.8 Other iron deficiency anemias; E66.01 Morbid (severe) obesity due to excess calories; D63.1 Anemia in chronic kidney disease; E11.22 Type 2 diabetes mellitus with diabetic chronic kidney disease; R50.9 Fever, unspecified; B96.1 Klebsiella pneumoniae [K. pneumoniae] as the cause of diseases classified elsewhere; Z87.891 Personal history of nicotine dependence; E87.6 Hypokalemia; M50.30 Other cervical disc degeneration, unspecified cervical region; K21.9 Gastro-esophageal reflux disease without esophagitis; M79.7 Fibromyalgia; J44.9 Chronic obstructive pulmonary disease, unspecified; G31.84 Mild cognitive impairment of uncertain or unknown etiology; G47.33 Obstructive sleep apnea (adult) (pediatric); F32.9 Major depressive disorder, single episode, unspecified; K58.1 Irritable bowel syndrome with constipation; M06.4 Inflammatory polyarthropathy; E11.42 Type 2 diabetes mellitus with diabetic polyneuropathy; G25.0 Essential tremor; F41.8 Other specified anxiety disorders; M06.042 Rheumatoid arthritis without rheumatoid factor, left hand; M06.041 Rheumatoid arthritis without rheumatoid factor, right hand; E11.43 Type 2 diabetes mellitus with diabetic autonomic (poly)neuropathy; K31.84 Gastroparesis; Z79.4 Long term (current) use of insulin
CPT/HCPCS: 36415; 36416; 36430; 36569; 36573; 36592; 36600; 51702; 51798; 70450; 71045; 74176; 77001; 80048; 80051; 80053; 81001; 82140; 82330; 82436; 82550; 82570; 82803; 82805; 82962; 83735; 83880; 84133; 84300; 84484; 85025; 85610; 86705; 86706; 86850; 86900; 86920; 87040; 87070; 87077; 87086; 87106; 87186; 87205; 87340; 87486; 87581; 87633; 87641; 90935; 92507; 92523; 92610; 93005; 93306; 93970; 93971; 94002; 94003; 94640; 94660; 94799; 96365; 96372; 96375; 96376; 97110; 97161; 97167; 97530; 99285; A9270; C1750; C1751; C8929; C9113; J0131; J0330; J0690; J1170; J1644; J1815; J1940; J2020; J2185; J2250; J2371; J2405; J2704; J3010; J3370; J3490; J7050; J7626; P9046; P9051; Q3014; Q4081; Q9956

== ENCOUNTER → 2024-02-06 14:20 | Outpatient (BNVA) | payer MEDICARE, MEDICAID, SELFPAY | PROVIDERS: PCP Nurse Practitioner; Visit Provider Nurse Practitioner | DX: E61.1 Iron deficiency (principal); I10 Essential (primary) hypertension; N18.4 Chronic kidney disease, stage 4 (severe); Z79.4 Long term (current) use of insulin; E11.22 Type 2 diabetes mellitus with diabetic chronic kidney disease; F41.8 Other specified anxiety disorders | CPT/HCPCS: 80053; 83036; 83540; 84443; 85025 ==

== ENCOUNTER → 2024-03-05 09:06 | Outpatient (BNVA) | payer MEDICARE, MEDICAID, SELFPAY | PROVIDERS: PCP Nurse Practitioner; Visit Provider Internal Medicine Nephrology | DX: N17.9 Acute kidney failure, unspecified (principal); N18.9 Chronic kidney disease, unspecified | CPT/HCPCS: 80069 ==

== ENCOUNTER 2024-03-14 20:45 | Emergency (ER) | payer MEDICARE, MEDICAID, SELFPAY ==
[2024-03-14 20:46] VITALS: BP 120/83; PULSE 84; RESP 18; TEMP 36.9; O2SAT 100; BMI 46.9
--- NOTE | 2024-03-14 21:06 | CTR_ITS ---
PROCEDURE INFORMATION: Exam: CT Abdomen And Pelvis Without Contrast Exam date and time: 03/14/2024 9:41 PM Age: 68 years old Clinical indication: Constipation; Prior surgery; Surgery date: 6+ months; Surgery type: Gb, hyst; Additional info: Constipation, abd pain TECHNIQUE: Imaging protocol: Computed tomography of the abdomen and pelvis without contrast. Radiation optimization: All CT scans at this facility use at least one of these dose optimization techniques: automated exposure control; mA and/or kV adjustment per patient size (includes targeted exams where dose is matched to clinical indication); or iterative reconstruction. COMPARISON: CT abdomen pelvis wo con [id number] 12/29/2023 10:18 PM RADIATION DOSE METRICS: Total DLP (mGy-cm): 1163.9 FINDINGS: Lungs: The visualized lung bases show no consolidation. Liver: Normal size and homogeneous density. No liver mass is seen. Gallbladder and bile ducts: There has been a cholecystectomy. There is no evidence of biliary ductal dilation. Pancreas: Normal size and homogeneous density. No ductal dilation. Spleen: Normal. No splenomegaly. Adrenal glands: Normal. No mass. Kidneys and ureters: No evidence of hydronephrosis. No renal or ureteral calculi. Stomach and bowel: There is no evidence of small bowel obstruction. Moderate fecal burden throughout the colon and probable fecal impaction in the rectosigmoid. Mild thickening of the rectosigmoid wall with haziness in the adjacent adipose tissues suggest stercoral proctocolitis. There is mild diverticulosis of the distal colon without acute diverticulitis. Appendix: No evidence of appendicitis. Intraperitoneal space: No free air. No significant fluid collection. Vasculature: There is moderate atherosclerotic calcification of the abdominal aorta and its branches without aneurysm. Lymph nodes: No enlarged retroperitoneal or mesenteric lymph nodes. Urinary bladder: The bladder shows a normal contour and is free of calcific opacities. Reproductive: Prior hysterectomy. Bones/joints: No acute fracture. No evidence of bone destruction. Soft tissues: Unremarkable. CT/CT abdomen pelvis wo con [id number] IMPRESSION: 1. Moderate fecal burden throughout the colon and probable fecal impaction in the rectosigmoid. 2. Findings suggestive of stercoral proctocolitis. 3. Mild diverticulosis of the distal colon without acute diverticulitis.
--- NOTE | 2024-03-14 21:06 | W.ED.ABDPA2 ---
HPI - Abdominal Pain General: Chief Complaint: Abdominal Pain Stated Complaint: constipation Time Seen by Provider: 03/14/24 20:57 History of Present Illness: 68-year-old female comes in today for complaints of abdominal pain and constipation. Patient's main concern is that she has not had a bowel movement in 3 to 4 days. Patient reports poor oral intake due to gastroparesis. Patient reports that she feels like she is impacted. Patient believes she needs an enema. Patient has chronic kidney disease, CHF, diabetes, and is on chronic dialysis. Associated Symptoms: Reports constipation and nausea Review of Systems General: Reports: 10 or more systems reviewed and unremarkable except in HPI and below GI: Reports: abdominal pain, nausea and constipation [facility] PFSH: Medical History (Updated 03/14/24 @ 23:42 by BRIAN Caceres) Chronic diastolic heart failure Gastric ulcer H. pylori ruled out at [facility] Situational anxiety Benign hypertension Type 2 diabetes mellitus with diabetic chronic kidney disease Hospital-acquired pneumonia Acute exacerbation of CHF (congestive heart failure) Acute on chronic renal failure Diabetic gastroparesis Hypoxia Anemia Positive GIFTY (antinuclear antibody) Frequent falls Muscle spasm High risk medication use Seronegative rheumatoid arthritis of both hands Diabetic foot Hip pain, left Atypical chest pain IgM monoclonal gammopathy of uncertain significance Intermittent atrial fibrillation Chest pain Edema CKD (chronic kidney disease) stage 3, GFR 30-59 ml/min Urinary disorder Anxiety Pneumonitis Left lumbar radiculopathy Back pain Lymph edema Fracture of distal end of fibula Syncope and collapse Essential tremor Mobility impaired IBS (irritable bowel syndrome) Inflammatory arthritis Chronic back pain Chronic major depressive disorder Peripheral neuropathy Polyarthralgia Edema, peripheral Noncompliance with diabetes treatment Not consistent with diet Near syncope Monoclonal gammopathy Major depression Diabetic neuropathy associated with type 2 diabetes mellitus Severe obstructive sleep apnea Mild cognitive impairment with memory loss Dietary noncompliance Atrial flutter Coronary artery fistula Chronic obstructive pulmonary disease, unspecified Obesity CKD (chronic kidney disease) Fibromyalgia Diverticulosis Environmental and seasonal allergies Vitamin D deficiency Surgical History History of left heart catheterization (2017) No significant obstructive coronary disease Hx of esophagogastroduodenoscopy Hx of colonoscopy History of tonsillectomy History of section 4 times History of cholecystectomy (1993) History of hysterectomy (1997) with BSO Family History Brother Bleeding disorder CAD (coronary artery disease) Father CAD (coronary artery disease) Chronic kidney disease (CKD) Mother CAD (coronary artery disease) Cancer Diabetes Family/Other Cancer Other Congestive heart failure (CHF) Heart disease Hypertension Denies family history of Clotting disorder Dementia Suicide Anesthesia complication Lung disease Stroke Social History Smoking and tobacco/nicotine status: former use of tobacco/nicotine Quit status (tobacco/nicotine): has quit using Year quit tobacco: 1990 Former quit date comment: smoked 20+ years Second hand smoke exposure: No Alcohol intake: never Substance/Drug Use: never Adopted: No Caregiver/support person: Yes Lives independently: No Household members: children and other Details: Son, sometimes grandson Housing: House Marital status: Single service: No Current occupational status: disabled Do you think of yourself as: Straight/Heterosexual Current gender identity: Female Physical Exam Const: COMMON NORMALS: alert HENMT: COMMON NORMALS: normocephalic HEAD & SCALP: normocephalic Neck/C-Spine: COMMON NORMALS: full ROM Resp: COMMON NORMALS: normal respiratory effort and clear to auscultation bilaterally AUSCULTATION: clear to auscultation bilaterally Cardio: COMMON NORMALS: regular rate and regular rhythm RATE: regular rate RHYTHM: regular rhythm GI: COMMON NORMALS: Soft to palpation and non-tender AUSCULTATION: Yes Hyperactive bowel sounds present PALPATION: Yes Soft to palpation : COMMON NORMALS: Yes no CVA tenderness BLADDER/KIDNEY EXAM: Yes no CVA tenderness Back/Pelvis: COMMON NORMALS: no CVA tenderness Extremity: COMMON NORMALS: normal to inspection Neuro: SENSORIUM/ORIENTATION: Yes alert Skin: COMMON NORMALS: turgor normal GENERAL SKIN EXAM: turgor normal Course Vital Signs: Vital signs: Vital Signs Temperature 98.5 F 03/14/24 20:46 Pulse Rate 84 03/14/24 20:46 Respiratory Rate 18 03/14/24 21:54 Blood Pressure 133/76 03/14/24 21:54 Pulse Oximetry 95 03/14/24 21:54 Oxygen Delivery Me thod Room Air 03/14/24 21:54 MDM - Abdominal Pain Medical Decision Making Patient comes in today for complaints of abdominal discomfort and constipation. Patient appears nontoxic. Patient is able to speak in full sentences. Skin is warm and dry minimal edema is noted in lower extremities. Bowel sounds are hyperactive. Differential diagnosis includes but not limited to colitis, constipation, bowel obstruction. CBC was unremarkable. CMP noted a BUN of 90 and a creatinine of 2.8. Patient also had a sodium of 135 and potassium 4.9. Blood glucose was 147. CT of the abdomen pelvis noted moderate fecal burden without signs of obstruction and a probable fecal impaction. Patient was given 2 soapsuds enemas and nursing had assisted with some disimpaction and patient had good bowel results. Recommended patient follow-up with primary care to discuss medication options to assist with constipation. Patient reports understanding and agreed to plan. Lab Data 03/14/24 21:03/14/24 21: Labs/Radiology: Radiology Impressions Abdomen/Pelvis CT 03/14/24 21:06 IMPRESSION: 1. Moderate fecal burden throughout the colon and probable fecal impaction in the rectosigmoid. 2. Findings suggestive of stercoral proctocolitis. 3. Mild diverticulosis of the distal colon without acute diverticulitis. Laboratory Results WBC 9.01 10^3/uL (3.29-11.43) 03/14/24: RBC 3.47 10^6/uL (3.85-5.65) L 03/14/24: Hgb 10.20 g/dL (11.27-16.99) L 03/14/24: Hct 29.4 % (36-47) L 03/14/24: MCV 84.7 fl (85-98) L 03/14/24 21: MCH 29.4 pg (27-33) 03/14/24: MCHC 34.7 g/dL (30-55) 03/14/24: RDW 13.5 % (12.1-15.1) 03/14/24: Plt Count 260 10^3/cmm (157-399) 03/14/24: MPV 10.0 fL (7.4-10.4) 03/14/24: Neut % (Auto) 76.3 % 03/14/24: Lymph % (Auto) 15.0 % 03/14/24 21: [place] % (Auto) 6.4 % 03/14/24 21: Eos % (Auto) 1.4 % 03/14/24: Baso % (Auto) 0.6 % 03/14/24 21: Neut # (Auto) 6.87 10^3/uL (1.8-7.7) 03/14/24: Lymph # (Auto) 1.4 10^3/uL (0.8-4.8) 03/14/24: [place] # (Auto) 0.6 10^3/uL (0.2-0.9) 03/14/24: Eos # (Auto) 0.1 10^3/uL (0.0-0.8) 03/14/24: Baso # (Auto) 0.1 10^3/uL (0.0-0.1) 03/14/24: Nucleated RBC % (auto) 0 % 03/14/24: Nucleated RBCs # 0.0 /100WBC 03/14/24 21: Sodium 135 mmol/L (136-145) L 03/14/24 21: Potassium 4.9 mmol/L (3.5-5.1) 03/14/24: Chloride 92 mmol/L (98-107) L 03/14/24 21: Carbon Dioxide 28 mmol/L (22-29) 03/14/24 21: Anion Gap 19.9 (5-19) H 03/14/24 21: BUN 90 mg/dL (8-23) H* 03/14/24 21: Creatinine 2.8 mg/dL (0.5-0.9) H 03/14/24 21: GFR Calculation 16.9 mL/min (90-130) L 03/14/24: Glucose 147 mg/dL (65-115) H 03/14/24: Calculated Osmolality 310 mOsm/kg (285-295) H 03/14/24 21: Calcium 10.8 mg/dL (8.5-10.5) H 03/14/24: Total Bilirubin 0.4 mg/dL (0.15-1.2) 03/14/24 21:27 AST 26 U/L (0-32) 03/14/24 21: ALT 21 U/L (0-33) 03/14/24 21: Alkaline Phosphatase 92 U/L (35-105) 03/14/24 21: Total Protein 7.7 g/dL (6.6-8.7) 03/14/24 21: Albumin 3.9 g/dL (3.5-5.2) 03/14/24 21: Globulin 3.8 g/dL (1.3-4.6) 03/14/24 21: Urine Color Yellow (Yellow) 03/14/24 21:35 Urine Appearance Clear (CLEAR) 03/14/24 21:35 Urine pH 7 (5-7) 03/14/24 21:35 Ur Specific Holly 1.010 (1.005-1.030) 03/14/24 21:35 Urine Protein 1+ (Negative) H 03/14/24 21:35 Urine Glucose (UA) Norm (Normal) 03/14/24 21:35 Urine Ketones Negative (Negative) 03/14/24 21:35 Urine Blood Neg (Negative) 03/14/24 21:35 Urine Nitrate Negative (Negative) 03/14/24 21:35 Urine Bilirubin Neg (Negative) 03/14/24 21:35 Urine Urobilinogen Neg mg/dL (Negative) 03/14/24 21:35 Ur Leukocyte Esterase Negative (Negative) 03/14/24 21:35 Urine RBC 0-4 /hpf (0-2) H 03/14/24 21:35 Urine WBC None /hpf (0-5) 03/14/24 21:35 Ur Squamous Epith Cells 0-4 /hpf (0-5) H 03/14/24 21:35 Amorphous Sediment Not Reportable 03/14/24 21:35 Urine Bacteria None /hpf (NONE) 03/14/24 21:35 Urine Mucus 2+ /hpf 03/14/24 21:35 All radiology interpretation(s) finalized by discharge Discharge Plan Discharge Patient Disposition: Home Clinical Impression: Constipation, chronic Condition: Stable Prescriptions: No Action (DME) lancing device with lancets [OneTouch Delica Plus Lanc Dev] Kit See Rx Instructions .Route Qty: 1 0RF Rx Instructions: As directed (DME) lancets [OneTouch Delica Lancets] 33 gauge misc See Rx Instructions .Route Qty: 100 5RF Rx Instructions: three times day fluoxetine 20 mg capsule 20 mg PO BID Qty: 60 2RF Rx Instructions: dose increase (DME) FreeStyle Ayesha 2 Sensor Kit See Rx Instructions .ROUTE .MEDSUPPLY Qty: 2 11RF Rx Instructions: change every 14 days (DME) FreeStyle Ayesha 2 [place] Misc See Rx Instructions .ROUTE .MEDSUPPLY Qty: 1 0RF Rx Instructions: As directed (DME) Alternating pressure mattress and pressure pump See Rx Instructions .Route .MEDSUPPLY Qty: 1 0RF Rx Instructions: As directed aspirin 81 mg tablet,delayed release (DR/EC) 81 mg PO DAILY amlodipine 10 mg tablet 10 mg PO DAILY Qty: 60 2RF fluticasone propion-salmeterol [AirDuo RespiClick] 232-14 mcg/actuation aerosol powdr breath activated 1 inh inhalation Q12H Qty: 1 2RF insulin degludec [Tresiba FlexTouch U-200] 200 unit/mL (3 mL) insulin pen 80 unit SUBCUT DAILY Qty: 18 2RF Culturelle 10 billion cell capsule 1 cap PO .three times day Qty: 90 2RF losartan [Cozaar] 100 mg tablet 100 mg PO DAILY Qty: 30 2RF magnesium oxide 400 mg magnesium tablet 400 mg PO DAILY Qty: 30 2RF pantoprazole 40 mg tablet,delayed release (DR/EC) 40 mg PO DAILY Qty: 30 2RF sennosides-docusate sodium [Senokot-S] 8.6-50 mg tablet 1 tab-cap PO BID Qty: 60 2RF torsemide 20 mg tablet 20 mg PO QAM Qty: 30 2RF (DME) diabetic shoes with inserts See Rx Instructions .Route .MEDSUPPLY Qty: 1 0RF Rx Instructions: As directed (DME) blood-glucose meter [OneTouch Ultra2 Meter] Kit See Rx Instructions .Route Qty: 1 0RF Rx Instructions: As directed Nystop 100,000 unit/gram powder 1 applic topical BID Qty: 15 2RF (DME) Bariatric emy lift See Rx Instructions .Route .MEDSUPPLY Qty: 1 0RF Rx Instructions: BMI 57.5% weight 325# (DME) OneTouch Ultra Test Strip See Rx Instructions .Route Qty: 100 5RF Rx Instructions: 1 strip three time day (DME) pen needle, diabetic [TechLITE Pen Needle] 31 gauge x 5/16 needle See Rx Instructions .ROUTE .MEDSUPPLY Qty: 200 5RF Rx Instructions: use 4 times day nitroglycerin [Nitrostat] 0.4 mg tablet, sublingual 0.4 mg SUBLINGUAL Q5M PRN (Reason: Chest Pain) Qty: 50 3RF Rx Instructions: do not exceed 3 doses per episode isosorbide mononitrate 120 mg tablet extended release 24 hr 120 mg PO QDAY Qty: 30 2RF Rx Instructions: to replace 40mg TID tizanidine 4 mg tablet 4 mg PO BID PRN (Reason: muscle spasticity) Qty: 14 0RF insulin lispro [Humalog KwikPen Insulin] 100 unit/mL insulin pen See Rx Instructions SUBCUT .COMPLEX Qty: 15 2RF Rx Instructions: 6-27U SUBCUT three times daily subcutaneously; per sliding scale zonisamide [Zonegran] 25 mg capsule 25 mg PO Q12H Qty: 60 2RF cholecalciferol (vitamin D3) [Vitamin D3] 125 mcg (5,000 unit) Tablet 125 mcg PO DAILY acetaminophen 325 mg tablet 325 - 650 mg PO Q6H PRN (Reason: Pain) Vitamin B-12 50 mcg Tablet 50 mcg PO DAILY Qty: 0 oxycodone 5 mg tablet 2.5 - 5 mg PO Q8H PRN (Reason: Pain) albuterol sulfate [ProAir HFA] 90 mcg/actuation HFA aerosol inhaler 2 puff INHALATION Q4H PRN (Reason: shortness of breath or wheezing) Qty: 8.5 3RF Discharge Orders: Discharge ED (Routine); Ordered 03/15/24 Ordered By: Michael Edwards Referrals: Lorenzo Muller, CAMPAIGN FUNDRAISER-C [Primary Care Provider] - Discharge Diet: Advance as tolerated Discharge Activity: Increase activity as tolerated Patient Instructions: Constipation (ED) Activity Restrictions/Additional Instructions: Talk with your primary care about options to help with constipation. Make sure you are drinking plenty of water. You may need to discuss medications that will help with constipation related to chronic opioid use. Follow-up as needed. Return to ED for new concerns. Coding Level of Care Code ED Flame Channeler for Anel Mcknight
[2024-03-14 21:38] LABS: Basophils # 0.1 10^3/uL (0.0-0.1); Basophils % 0.6 %; Eosinophils # 0.1 10^3/uL (0.0-0.8); Eosinophils % 1.4 %; Hematocrit 29.4 % (36-47); Lymphocytes # 1.4 10^3/uL (0.8-4.8); Mean Corpuscular HGB Conc 34.7 g/dL (30-55); Mean Corpuscular Hemoglobin 29.4 pg (27-33); Mean Corpuscular Volume 84.7 fl (85-98); Monocytes # 0.6 10^3/uL (0.2-0.9); Monocytes % 6.4 %; Neutrophils # 6.87 10^3/uL (1.8-7.7); Neutrophils % 76.3 %; Nucleated Red Blood Cells % 0 %; Platelet Count 260 10^3/cmm (157-399); Red Blood Count 3.47 10^6/uL (3.85-5.65); Red Cell Distribution Width 13.5 % (12.1-15.1); White Blood Count 9.01 10^3/uL (3.29-11.43)
[2024-03-14 21:46] LABS: Add Urine Culture? No; Add Urine Microscopic? YES; Bilirubin Urine Neg (Negative); Blood Urine Neg (Negative); Glucose Urine UA Norm (Normal); Ketones Urine Negative (Negative); Leukocyte Esterase Urine Negative (Negative); Mucus Urine 2+ /hpf; Nitrate Urine Negative (Negative); Protein Urine 1+ (Negative); RBC Urine 0-4 /hpf (0-2); Squamous Epithelial Cell Urine 0-4 /hpf (0-5); Urine Appearance Clear (CLEAR); Urine Color Yellow (Yellow); Urobilinogen Urine Neg (Negative); pH Urine 7 (5-7)
[2024-03-14 21:53] LABS: Alanine Aminotransferase 21 U/L (0-33); Albumin Level 3.9 g/dL (3.5-5.2); Alkaline Phosphatase 92 U/L (35-105); Anion Gap 19.9 (5-19); Aspartate Amino Transferase 26 U/L (0-32); Calcium 10.8 mg/dL (8.5-10.5); Carbon Dioxide 28 mmol/L (22-29); Chloride 92 mmol/L (98-107); Creatinine Clr Calc Pharmacy 24.8108; Globulin 3.8 g/dL (1.3-4.6); Glomerular Filtration Rate 16.9 mL/min (90-130); Glucose 147 mg/dL (65-115); Osmolality Calculated 310 mOsm/kg (285-295); Potassium 4.9 mmol/L (3.5-5.1); Sodium 135 mmol/L (136-145); Total Bilirubin 0.4 mg/dL (0.15-1.2); Total Protein 7.7 g/dL (6.6-8.7)
[2024-03-14 21:54] VITALS: BP 133/76; RESP 18; O2SAT 95
[2024-03-14 22:02] LABS: Blood Urea Nitrogen 90 mg/dL (8-23)
[2024-03-15 00:48] VITALS: BP 137/73; PULSE 73; O2SAT 92
[2024-03-15 01:11] VITALS: BP 134/62; PULSE 82; O2SAT 95
[2024-03-15 01:34] VITALS: BP 148/72; PULSE 84; O2SAT 98
== END 2024-03-15 01:37 | disposition home or self-care (01) ==
PROVIDERS: Emergency Provider Nurse Practitioner Family; PCP Nurse Practitioner
DX: K59.09 Other constipation (principal); Z79.82 Long term (current) use of aspirin; Z79.4 Long term (current) use of insulin; Z87.891 Personal history of nicotine dependence; I13.0 Hypertensive heart and chronic kidney disease with heart failure and stage 1 through stage 4 chronic kidney disease, or unspecified chronic kidney disease; E11.22 Type 2 diabetes mellitus with diabetic chronic kidney disease; N18.30 Chronic kidney disease, stage 3 unspecified; I50.9 Heart failure, unspecified; J44.9 Chronic obstructive pulmonary disease, unspecified
CPT/HCPCS: 51701; 74176; 80053; 81001; 85025; 99284

== ENCOUNTER 2024-03-18 13:53 | Emergency (ER) | payer MEDICARE, MEDICAID, SELFPAY ==
[2024-03-18 13:57] VITALS: BP 178/87; PULSE 83; RESP 18; TEMP 36.8; O2SAT 98; BMI 36.6
[2024-03-18 14:05] VITALS: BP 178/87; PULSE 84; RESP 18; O2SAT 95
[2024-03-18] MEDS: ondansetron 2 mg/ML SDV 2 mL 4 MG IVP (14:16)
--- NOTE | 2024-03-18 14:26 | ED_ITS ---
HPI - Abdominal Pain 2 General: Chief Complaint: Abdominal Pain Stated Complaint: abd pain Time Seen by Provider: 03/18/24 13:57 Source: patient Mode of arrival: ambulatory Limitations: no limitations History of Present Illness: 68-year-old female states she was seen h [facility] on the for constipation states she been having bowel movements but states that last 2 days she has been having extreme nausea with multiple episodes of vomiting. She had some abdominal cramping denies any severe abdominal pain. She denies any fevers patient did receive Phenergan and route she states she had some improvement with that. Associated Symptoms: Reports nausea and vomiting; Denies chills, diarrhea and fever(s) Review of Systems 2 Const: Denies: fever(s), chills, body aches or change in appetite ENMT: Denies: throat pain or dental pain Card: Denies: chest pain Resp: Denies: dyspnea GI: Reports: abdominal pain, nausea and vomiting; Denies: diarrhea Musc: Denies: neck pain or back pain Skin/Breast: Denies: rash Neuro: Denies: headache(s) PFS ED 2 PFSH: Medical History Chronic diastolic heart failure Gastric ulcer H. pylori ruled out at [facility] Situational anxiety Benign hypertension Type 2 diabetes mellitus with diabetic chronic kidney disease Hospital-acquired pneumonia Acute exacerbation of CHF (congestive heart failure) Acute on chronic renal failure Diabetic gastroparesis Hypoxia Anemia Positive GIFTY (antinuclear antibody) Frequent falls Muscle spasm High risk medication use Seronegative rheumatoid arthritis of both hands Diabetic foot Hip pain, left Atypical chest pain IgM monoclonal gammopathy of uncertain significance Intermittent atrial fibrillation Chest pain Edema CKD (chronic kidney disease) stage 3, GFR 30-59 ml/min Urinary disorder Anxiety Pneumonitis Left lumbar radiculopathy Back pain Lymph edema Fracture of distal end of fibula Syncope and collapse Essential tremor Mobility impaired IBS (irritable bowel syndrome) Inflammatory arthritis Chronic back pain Chronic major depressive disorder Peripheral neuropathy Polyarthralgia Edema, peripheral Noncompliance with diabetes treatment Not consistent with diet Near syncope Monoclonal gammopathy Major depression Diabetic neuropathy associated with type 2 diabetes mellitus Severe obstructive sleep apnea Mild cognitive impairment with memory loss Dietary noncompliance Atrial flutter Coronary artery fistula Chronic obstructive pulmonary disease, unspecified Obesity CKD (chronic kidney disease) Fibromyalgia Diverticulosis Environmental and seasonal allergies Vitamin D deficiency Surgical History History of left heart catheterization (2017) No significant obstructive coronary disease Hx of esophagogastroduodenoscopy Hx of colonoscopy History of tonsillectomy History of section 4 times History of cholecystectomy (1993) History of hysterectomy (1997) with BSO Family History Brother Bleeding disorder CAD (coronary artery disease) Father CAD (coronary artery disease) Chronic kidney disease (CKD) Mother CAD (coronary artery disease) Cancer Diabetes Family/Other Cancer Other Congestive heart failure (CHF) Heart disease Hypertension Denies family history of Clotting disorder Dementia Suicide Anesthesia complication Lung disease Stroke Social History Smoking and tobacco/nicotine status: former use of tobacco/nicotine Quit status (tobacco/nicotine): has quit using Year quit tobacco: 1990 Former quit date comment: smoked 20+ years Second hand smoke exposure: No Alcohol intake: never Substance/Drug Use: never Adopted: No Caregiver/support person: Yes Lives independently: No Household members: children and other Details: Son, sometimes grandson Housing: House Marital status: Single service: No Current occupational status: disabled Do you think of yourself as: Straight/Heterosexual Current gender identity: Female Physical Exam 2 Const: COMMON NORMALS: no acute distress, patient oriented x3 and healthy appearing HENMT: COMMON NORMALS: normocephalic and atraumatic HEAD & SCALP: n ormocephalic and atraumatic Eye: COMMON NORMALS: Equal, round and reactive pupils present and EOMs intact bilaterally PUPIL: Yes Equal, round and reactive pupils present Neck/C-Spine: COMMON NORMALS: full ROM and supple Chest: COMMONS NORMALS: normal inspection of the chest and normal palpation of entire chest wall Resp: COMMON NORMALS: normal respiratory effort, No retractions, No use of accessory muscles and clear to auscultation bilaterally AUSCULTATION: clear to auscultation bilaterally Cardio: COMMON NORMALS: regular rate, regular rhythm and No murmurs present (Cardio) RATE: regular rate RHYTHM: regular rhythm GI: COMMON NORMALS: Normal to inspection, nondistended, normoactive bowel sounds present, Soft to palpation, non-tender and no masses PALPATION: Yes Soft to palpation Extremity: COMMON NORMALS: normal to inspection and full ROM Neuro: COMMON NORMALS: patient oriented x3, moves all extremities and no focal motor deficits Psych: COMMON NORMALS: mental status grossly normal, Normal thought process present and cooperative THOUGHT PROCESS: Normal thought process present Skin: COMMON NORMALS: no rashes or lesions noted and no wounds GENERAL SKIN EXAM: no rashes or lesions noted Course 2 Vital Signs: Vital signs: Vital Signs Temperature 98.2 F 03/18/24 13:57 Pulse Rate 80 03/18/24 16:04 Respiratory Rate 18 03/18/24 16:04 Blood Pressure 178/87 03/18/24 16:04 Pulse Oximetry 100 03/18/24 16:04 Oxygen Delivery Me thod Room Air 03/18/24 16:04 Oxygen Flow Rate 2 03/18/24 14:05 MDM - Abdominal Pain Medical Decision Making Patient presented with vomiting is likely viral in origin she feels much improved here after Zofran she is able to tolerate p.o. blood work here is normal abdominal exam is benign she stable for discharge follow-up PCP return if worsening Medical Records I reviewed the patient's medical records. Lab Data I reviewed the patient's lab results. 03/18/24 14:51 03/18/24 14:51 Labs/Radiology: Laboratory Results WBC 8.81 10^3/uL (3.29-11.43) 03/18/24 14:51 RBC 3.56 10^6/uL (3.85-5.65) L 03/18/24 14:51 Hgb 10.50 g/dL (11.27-16.99) L 03/18/24 14:51 Hct 30.6 % (36-47) L 03/18/24 14:51 MCV 86.0 fl (85-98) 03/18/24 14:51 MCH 29.5 pg (27-33) 03/18/24 14:51 MCHC 34.3 g/dL (30-55) 03/18/24 14:51 RDW 13.0 % (12.1-15.1) 03/18/24 14:51 Plt Count 224 10^3/cmm (157-399) 03/18/24 14:51 MPV 10.4 fL (7.4-10.4) 03/18/24 14:51 Neut % (Auto) 75.0 % 03/18/24 14:51 Lymph % (Auto) 13.7 % 03/18/24 14:51 [place] % (Auto) 7.8 % 03/18/24 14:51 Eos % (Auto) 2.2 % 03/18/24 14:51 Baso % (Auto) 0.8 % 03/18/24 14:51 Neut # (Auto) 6.61 10^3/uL (1.8-7.7) 03/18/24 14:51 Lymph # (Auto) 1.2 10^3/uL (0.8-4.8) 03/18/24 14:51 [place] # (Auto) 0.7 10^3/uL (0.2-0.9) 03/18/24 14:51 Eos # (Auto) 0.2 10^3/uL (0.0-0.8) 03/18/24 14:51 Baso # (Auto) 0.1 10^3/uL (0.0-0.1) 03/18/24 14:51 Nucleated RBC % (auto) 0 % 03/18/24 14:51 Nucleated RBCs # 0.0 /100WBC 03/18/24 14:51 Sodium 135 mmol/L (136-145) L 03/18/24 14:51 Potassium 3.3 mmol/L (3.5-5.1) L 03/18/24 14:51 Chloride 89 mmol/L (98-107) L 03/18/24 14:51 Carbon Dioxide 30 mmol/L (22-29) H 03/18/24 14:51 Anion Gap 19.3 (5-19) H 03/18/24 14:51 BUN 96 mg/dL (8-23) H* 03/18/24 14:51 Creatinine 2.8 mg/dL (0.5-0.9) H 03/18/24 14:51 GFR Calculation 16.9 mL/min (90-130) L 03/18/24 14:51 Glucose 57 mg/dL (65-115) L 03/18/24 14:51 Calculated Osmolality 307 mOsm/kg (285-295) H 03/18/24 14:51 Calcium 10.0 mg/dL (8.5-10.5) 03/18/24 14:51 Total Bilirubin 0.4 mg/dL (0.15-1.2) 03/18/24 14:51 AST 20 U/L (0-32) 03/18/24 14:51 ALT 15 U/L (0-33) 03/18/24 14:51 Alkaline Phosphatase 87 U/L (35-105) 03/18/24 14:51 Total Protein 7.6 g/dL (6.6-8.7) 03/18/24 14:51 Albumin 4.1 g/dL (3.5-5.2) 03/18/24 14:51 Globulin 3.5 g/dL (1.3-4.6) 03/18/24 14:51 Lipase 79 U/L (13-60) H 03/18/24 14:51 Urine Color Straw (Yellow) 03/18/24 15:08 Urine Appearance Clear (CLEAR) 03/18/24 15:08 Urine pH 7 (5-7) 03/18/24 15:08 Ur Specific [place] 1.010 (1.005-1.030) 03/18/24 15:08 Urine Protein Neg (Negative) 03/18/24 15:08 Urine Glucose (UA) Norm (Normal) 03/18/24 15:08 Urine Ketones Negative (Negative) 03/18/24 15:08 Urine Blood Neg (Negative) 03/18/24 15:08 Urine Nitrate Negative (Negative) 03/18/24 15:08 Urine Bilirubin Neg (Negative) 03/18/24 15:08 Urine Urobilinogen Norm mg/dL (Negative) 03/18/24 15:08 Ur Leukocyte Esterase Negative (Negative) 03/18/24 15:08 No radiology studies performed this visit Discharge Plan Discharge Patient Disposition: Home Clinical Impression: Vomiting Condition: Stable Prescriptions: New ondansetron 4 mg tablet,disintegrating 4 mg PO Q6H PRN (Reason: nausea and vomiting) Qty: 14 0RF No Action (DME) lancing device with lancets [OneTouch Delica Plus Lanc Dev] Kit See Rx Instructions .Route Qty: 1 0RF Rx Instructions: As directed (DME) lancets [OneTouch Delica Lancets] 33 gauge misc See Rx Instructions .Route Qty: 100 5RF Rx Instructions: three times day fluoxetine 20 mg capsule 20 mg PO BID Qty: 60 2RF Rx Instructions: dose increase (DME) FreeStyle Ayesha 2 Sensor Kit See Rx Instructions .ROUTE .MEDSUPPLY Qty: 2 11RF Rx Instructions: change every 14 days (DME) FreeStyle Ayesha 2 [place] Misc See Rx Instructions .ROUTE .MEDSUPPLY Qty: 1 0RF Rx Instructions: As directed (DME) Alternating pressure mattress and pressure pump See Rx Instructions .Route .MEDSUPPLY Qty: 1 0RF Rx Instructions: As directed aspirin 81 mg tablet,delayed release (DR/EC) 81 mg PO DAILY amlodipine 10 mg tablet 10 mg PO DAILY Qty: 60 2RF fluticasone propion-salmeterol [AirDuo RespiClick] 232-14 mcg/actuation aerosol powdr breath activated 1 inh inhalation Q12H Qty: 1 2RF insulin degludec [Tresiba FlexTouch U-200] 200 unit/mL (3 mL) insulin pen 80 unit SUBCUT DAILY Qty: 18 2RF Culturelle 10 billion cell capsule 1 cap PO .three times day Qty: 90 2RF losartan [Cozaar] 100 mg tablet 100 mg PO DAILY Qty: 30 2RF magnesium oxide 400 mg magnesium tablet 400 mg PO DAILY Qty: 30 2RF pantoprazole 40 mg tablet,delayed release (DR/EC) 40 mg PO DAILY Qty: 30 2RF sennosides-docusate sodium [Senokot-S] 8.6-50 mg tablet 1 tab-cap PO BID Qty: 60 2RF torsemide 20 mg tablet 20 mg PO QAM Qty: 30 2RF (DME) diabetic shoes with inserts See Rx Instructions .Route .MEDSUPPLY Qty: 1 0RF Rx Instructions: As directed (DME) blood-glucose meter [OneTouch Ultra2 Meter] Kit See Rx Instructions .Route Qty: 1 0RF Rx Instructions: As directed Nystop 100,000 unit/gram powder 1 applic topical BID Qty: 15 2RF (DME) Bariatric emy lift See Rx Instructions .Route .MEDSUPPLY Qty: 1 0RF Rx Instructions: BMI 57.5% weight 325# (DME) OneTouch Ultra Test Strip See Rx Instructions .Route Qty: 100 5RF Rx Instructions: 1 strip three time day (DME) pen needle, diabetic [TechLITE Pen Needle] 31 gauge x 5/16 needle See Rx Instructions .ROUTE .MEDSUPPLY Qty: 200 5RF Rx Instructions: use 4 times day nitroglycerin [Nitrostat] 0.4 mg tablet, sublingual 0.4 mg SUBLINGUAL Q5M PRN (Reason: Chest Pain) Qty: 50 3RF Rx Instructions: do not exceed 3 doses per episode isosorbide mononitrate 120 mg tablet extended release 24 hr 120 mg PO QDAY Qty: 30 2RF Rx Instructions: to replace 40mg TID tizanidine 4 mg tablet 4 mg PO BID PRN (Reason: muscle spasticity) Qty: 14 0RF insulin lispro [Humalog KwikPen Insulin] 100 unit/mL insulin pen See Rx Instructions SUBCUT .COMPLEX Qty: 15 2RF Rx Instructions: 6-27U SUBCUT three times daily subcutaneously; per sliding scale zonisamide [Zonegran] 25 mg capsule 25 mg PO Q12H Qty: 60 2RF cholecalciferol (vitamin D3) [Vitamin D3] 125 mcg (5,000 unit) Tablet 125 mcg PO DAILY acetaminophen 325 mg tablet 325 - 650 mg PO Q6H PRN (Reason: Pain) Vitamin B-12 50 mcg Tablet 50 mcg PO DAILY Qty: 0 oxycodone 5 mg tablet 2.5 - 5 mg PO Q8H PRN (Reason: Pain) albuterol sulfate [ProAir HFA] 90 mcg/actuation HFA aerosol inhaler 2 puff INHALATION Q4H PRN (Reason: shortness of breath or wheezing) Qty: 8.5 3RF Discharge Orders: Discharge ED (Routine); Ordered 03/18/24 Ordered By: Loly Dasilva Referrals: Lorenzo Muller, [facility] [Primary Care Provider] - 4-7 days Discharge Diet: Advance as tolerated Discharge Activity: Resume usual activity Patient Instructions: Acute Nausea and Vomiting (ED) Coding Level of Care Code ED 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
[2024-03-18 15:08] LABS: Basophils # 0.1 10^3/uL (0.0-0.1); Basophils % 0.8 %; Eosinophils # 0.2 10^3/uL (0.0-0.8); Eosinophils % 2.2 %; Hematocrit 30.6 % (36-47); Lymphocytes # 1.2 10^3/uL (0.8-4.8); Lymphocytes % 13.7 %; Mean Corpuscular HGB Conc 34.3 g/dL (30-55); Mean Corpuscular Hemoglobin 29.5 pg (27-33); Mean Platelet Volume 10.4 fL (7.4-10.4); Monocytes # 0.7 10^3/uL (0.2-0.9); Monocytes % 7.8 %; Neutrophils # 6.61 10^3/uL (1.8-7.7); Nucleated Red Blood Cells % 0 %; Platelet Count 224 10^3/cmm (157-399); Red Blood Count 3.56 10^6/uL (3.85-5.65); White Blood Count 8.81 10^3/uL (3.29-11.43)
[2024-03-18 15:18] LABS: Add Urine Microscopic? NO; Bilirubin Urine Neg (Negative); Blood Urine Neg (Negative); Charge for UA Resulting for Rev; Glucose Urine UA Norm (Normal); Ketones Urine Negative (Negative); Leukocyte Esterase Urine Negative (Negative); Nitrate Urine Negative (Negative); Protein Urine Neg (Negative); Urine Appearance Clear (CLEAR); Urine Color Straw (Yellow); Urobilinogen Urine Norm (Negative); pH Urine 7 (5-7)
[2024-03-18 15:25] LABS: Alanine Aminotransferase 15 U/L (0-33); Albumin Level 4.1 g/dL (3.5-5.2); Alkaline Phosphatase 87 U/L (35-105); Anion Gap 19.3 (5-19); Aspartate Amino Transferase 20 U/L (0-32); Carbon Dioxide 30 mmol/L (22-29); Chloride 89 mmol/L (98-107); Globulin 3.5 g/dL (1.3-4.6); Glomerular Filtration Rate 16.9 mL/min (90-130); Glucose 57 mg/dL (65-115); Lipase 79 U/L (13-60); Osmolality Calculated 307 mOsm/kg (285-295); Potassium 3.3 mmol/L (3.5-5.1); Sodium 135 mmol/L (136-145); Total Bilirubin 0.4 mg/dL (0.15-1.2); Total Protein 7.6 g/dL (6.6-8.7)
[2024-03-18 15:38] LABS: Creatinine Clr Calc Pharmacy 23.1245
[2024-03-18 15:39] LABS: Blood Urea Nitrogen 96 mg/dL (8-23)
[2024-03-18] MEDS: sodium chloride 0.9% 1,000 ML 999 ML IV (16:01)
[2024-03-18 16:04] VITALS: BP 178/87; PULSE 80; RESP 18; O2SAT 100
[2024-03-18 16:35] VITALS: BP 167/81; PULSE 84; RESP 18; O2SAT 100
== END 2024-03-18 16:36 | disposition home or self-care (01) ==
PROVIDERS: Emergency Provider Emergency Medicine; PCP Nurse Practitioner
DX: R11.11 Vomiting without nausea (principal); Z79.82 Long term (current) use of aspirin; Z79.4 Long term (current) use of insulin; Z87.891 Personal history of nicotine dependence; E11.22 Type 2 diabetes mellitus with diabetic chronic kidney disease; I13.0 Hypertensive heart and chronic kidney disease with heart failure and stage 1 through stage 4 chronic kidney disease, or unspecified chronic kidney disease; N18.9 Chronic kidney disease, unspecified; I50.9 Heart failure, unspecified; J44.9 Chronic obstructive pulmonary disease, unspecified; N18.30 Chronic kidney disease, stage 3 unspecified
CPT/HCPCS: 36415; 80053; 81003; 83690; 85025; 96361; 96374; 99284; J2405; J7030

== ENCOUNTER 2024-03-22 21:17 | Emergency (ER) | payer MEDICARE, MEDICAID, SELFPAY ==
[2024-03-22 21:18] VITALS: BP 164/71; PULSE 93; RESP 18; TEMP 36.7; O2SAT 96; BMI 44.2
--- NOTE | 2024-03-22 21:25 | XRR_ITS ---
PROCEDURE INFORMATION: Exam: XR Abdomen Exam date and time: 03/22/2024 10:29 PM Age: 68 years old Clinical indication: Constipation; Prior surgery; Surgery date: 6+ months; Surgery type: Gb, hyst; Additional info: Constipation abd pain TECHNIQUE: Imaging protocol: Radiologic exam of the abdomen. Views: Frontal supine view of the abdomen. 1 View. COMPARISON: CT abdomen pelvis con [id number] 03/14/2024 9:41 PM FINDINGS: Gastrointestinal tract: Moderate to severe constipation without bowel dilation to indicate obstruction. Bones/joints: Degenerative disc space disease and mild levoscoliosis throughout the lumbar spine. XR/XR abdomen 1V* [id number] IMPRESSION: 1. Moderate to severe constipation without bowel dilation to indicate obstruction. 2. Degenerative disc space disease and mild levoscoliosis throughout the lumbar spine.
--- NOTE | 2024-03-22 21:47 | ED_ITS ---
HPI - Abdominal Pain 2 General: Chief Complaint: Abdominal Pain Stated Complaint: abd pain Time Seen by Provider: 03/22/24 21:25 History of Present Illness: Patient presents to the ER with complaints of abdominal pain and constipation. Patient says she has been here multiple times for this with multiple levels of relief. Patient was tried MiraLAX, glycerin suppositories, Duca locks all [id number] with minimal effort. She has a friend who did a digital rectal exam in effort to try to disimpact her but she did not feel the stool as she said it was up to high. Review of Systems 2 General: Reports: 10 or more systems reviewed and unremarkable except in HPI and below PFSH ED 2 PFSH: Medical History Chronic diastolic heart failure Gastric ulcer H. pylori ruled out at [facility] Situational anxiety Benign hypertension Type 2 diabetes mellitus with diabetic chronic kidney disease Hospital-acquired pneumonia Acute exacerbation of CHF (congestive heart failure) Acute on chronic renal failure Diabetic gastroparesis Hypoxia Anemia Positive GIFTY (antinuclear antibody) Frequent falls Muscle spasm High risk medication use Seronegative rheumatoid arthritis of both hands Diabetic foot Hip pain, left Atypical chest pain IgM monoclonal gammopathy of uncertain significance Intermittent atrial fibrillation Chest pain Edema CKD (chronic kidney disease) stage 3, GFR 30-59 ml/min Urinary disorder Anxiety Pneumonitis Left lumbar radiculopathy Back pain Lymph edema Fracture of distal end of fibula Syncope and collapse Essential tremor Mobility impaired IBS (irritable bowel syndrome) Inflammatory arthritis Chronic back pain Chronic major depressive disorder Peripheral neuropathy Polyarthralgia Edema, peripheral Noncompliance with diabetes treatment Not consistent with diet Near syncope Monoclonal gammopathy Major depression Diabetic neuropathy associated with type 2 diabetes mellitus Severe obstructive sleep apnea Mild cognitive impairment with memory loss Dietary noncompliance Atrial flutter Coronary artery fistula Chronic obstructive pulmonary disease, unspecified Obesity CKD (chronic kidney disease) Fibromyalgia Diverticulosis Environmental and seasonal allergies Vitamin D deficiency Surgical History History of left heart catheterization (2017) No significant obstructive coronary disease Hx of esophagogastroduodenoscopy Hx of colonoscopy History of tonsillectomy History of section 4 times History of cholecystectomy (1993) History of hysterectomy (1997) with BSO Family History Brother Bleeding disorder CAD (coronary artery disease) Father CAD (coronary artery disease) Chronic kidney disease (CKD) Mother CAD (coronary artery disease) Cancer Diabetes Family/Other Cancer Other Congestive heart failure (CHF) Heart disease Hypertension Denies family history of Clotting disorder Dementia Suicide Anesthesia complication Lung disease Stroke Social History Smoking and tobacco/nicotine status: former use of tobacco/nicotine Quit status (tobacco/nicotine): has quit using Year quit tobacco: 1990 Former quit date comment: smoked 20+ years Second hand smoke exposure: No Alcohol intake: never Substance/Drug Use: never Adopted: No Caregiver/support person: Yes Lives independently: No Household members: children and other Details: Son, sometimes grandson Housing: House Marital status: Single service: No Current occupational status: disabled Do you think of yourself as: Straight/Heterosexual Current gender identity: Female Physical Exam 2 Const: COMMON NORMALS: no acute distress, average body habitus, patient oriented x3, no limitations, healthy appearing, alert and well nourished HENMT: COMMON NORMALS: normocephalic, atraumatic, hearing grossly normal bilaterally, external ears normal, Normal external nose present, moist oral mucous membranes and oropharynx normal HEAD & SCALP: normocephalic and atraumatic NOSE: Normal external nose present EXTERNAL EAR: Yes external ears normal Neck/C-Spine: COMMON NORMALS: no JVD Chest: COMMONS NORMALS: normal inspection of the chest and normal palpation of entire chest wall Resp: COMMON NORMALS: normal respiratory effort, No retractions, No use of accessory muscles and clear to auscultation bilaterally AUSCULTATION: clear to auscultation bilaterally Cardio: COMMON NORMALS: no JVD, regular rate, regular rhythm, S1 normal heart sound present, S2 normal heart sound present, No gallops present (Cardio), No clicks present (Cardio), No murmurs present (Cardio) and No rub (Cardio) R ATE: regular rate RHYTHM: regular rhythm HEART SOUNDS: S1 normal heart sound present and S2 normal heart sound present GI: COMMON NORMALS: Normal to inspection, nondistended, normoactive bowel sounds present, Soft to palpation, No hepatosplenomegaly present and no masses; negative for non-tender (Mildly diffusely tender) PALPATION: Yes Soft to palpation and Yes No hepatosplenomegaly present Neuro: COMMON NORMALS: patient oriented x3 SENSORIUM/ORIENTATION: Yes alert Course 2 Vital Signs: Vital signs: Vital Signs Temperature 98.0 F 03/22/24 21:18 Pulse Rate 93 03/22/24 21:18 Respiratory Rate 18 03/22/24 21:18 Blood Pressure 164/71 03/22/24 21:18 Pulse Oximetry 96 03/22/24 21:18 Oxygen Delivery Me thod Room Air 03/22/24 21:18 MDM - Abdominal Pain Medical Decision Making KUB was obtained which showed moderate to severe constipation, lab work was obtained which was essentially benign for the patient hemoglobin was 10.7, BUN/creatinine 97 and 2.5, magnesium 3.1, patient was given 1 L normal saline IV bolus and a soapsuds enema until results. Differential Diagnosis Likely abdominal pain and constipation; Unlikely acute appendicitis, calculus of kidney, diverticulitis, endometriosis, gastroenteritis, pancreatitis or small bowel obstruction Medical Records I reviewed the patient's medical records. Lab Data I reviewed the patient's lab results. 03/22/24 22:20 03/22/24 22:20 Labs/Radiology: Radiology Impressions Abdomen X-Ray 03/22/24 21:25 IMPRESSION: 1. Moderate to severe constipation without bowel dilation to indicate obstruction. 2. Degenerative disc space disease and mild levoscoliosis throughout the lumbar spine. Laboratory Results WBC 11.00 10^3/uL (3.29-11.43) 03/22/24 22:20 RBC 3.63 10^6/uL (3.85-5.65) L 03/22/24 22:20 Hgb 10.70 g/dL (11.27-16.99) L 03/22/24 22:20 Hct 31.4 % (36-47) L 03/22/24 22:20 MCV 86.5 fl (85-98) 03/22/24 22:20 MCH 29.5 pg (27-33) 03/22/24 22:20 MCHC 34.1 g/dL (30-55) 03/22/24 22:20 RDW 13.1 % (12.1-15.1) 03/22/24 22:20 Plt Count 234 10^3/cmm (157-399) 03/22/24 22:20 MPV 10.6 fL (7.4-10.4) H 03/22/24 22:20 Neut % (Auto) 76.9 % 03/22/24 22:20 Lymph % (Auto) 14.0 % 03/22/24 22:20 Cotton % (Auto) 6.5 % 03/22/24 22:20 Eos % (Auto) 1.7 % 03/22/24 22:20 Baso % (Auto) 0.5 % 03/22/24 22:20 Neut # (Auto) 8.46 10^3/uL (1.8-7.7) H 03/22/24 22:20 Lymph # (Auto) 1.5 10^3/uL (0.8-4.8) 03/22/24 22:20 Cotton # (Auto) 0.7 10^3/uL (0.2-0.9) 03/22/24 22:20 Eos # (Auto) 0.2 10^3/uL (0.0-0.8) 03/22/24 22:20 Baso # (Auto) 0.1 10^3/uL (0.0-0.1) 03/22/24 22:20 Nucleated RBC % (auto) 0 % 03/22/24 22:20 Nucleated RBCs # 0.0 /100WBC 03/22/24 22:20 Sodium 132 mmol/L (136-145) L 03/22/24 22:20 Potassium 3.6 mmol/L (3.5-5.1) 03/22/24 22:20 Chloride 85 mmol/L (98-107) L 03/22/24 22:20 Carbon Dioxide 31 mmol/L (22-29) H 03/22/24 22:20 Anion Gap 19.6 (5-19) H 03/22/24 22:20 BUN 97 mg/dL (8-23) H* 03/22/24 22:20 Creatinine 2.5 mg/dL (0.5-0.9) H 03/22/24 22:20 GFR Calculation 19.3 mL/min (90-130) L 03/22/24 22:20 Glucose 88 mg/dL (65-115) 03/22/24 22:20 Calculated Osmolality 304 mOsm/kg (285-295) H 03/22/24 22:20 Calcium 10.8 mg/dL (8.5-10.5) H 03/22/24 22:20 Magnesium 3.1 mg/dL (1.7-2.3) H 03/22/24 22:20 Total Bilirubin 0.4 mg/dL (0.15-1.2) 03/22/24 22:20 AST 20 U/L (0-32) 03/22/24 22:20 ALT 14 U/L (0-33) 03/22/24 22:20 Alkaline Phosphatase 89 U/L (35-105) 03/22/24 22:20 Total Protein 8.2 g/dL (6.6-8.7) 03/22/24 22:20 Albumin 4.4 g/dL (3.5-5.2) 03/22/24 22:20 Globulin 3.8 g/dL (1.3-4.6) 03/22/24 22:20 All radiology interpretation(s) finalized by discharge Discharge Plan Discharge Patient Disposition: Home Clinical Impression: Constipation Qualifiers: Constipation type: unspecified constipation type Qualified Code(s): K59.00 - Constipation, unspecified Chronic kidney disease Qualifiers: Chronic kidney disease stage: unspecified stage Qualified Code(s): N18.9 - Chronic kidney disease, unspecified Condition: Stable Prescriptions: No Action (DME) lancing device with lancets [OneTouch Delica Plus Lanc Dev] Kit See Rx Instructions .Route Qty: 1 0RF Rx Instructions: As directed (DME) lancets [OneTouch Delica Lancets] 33 gauge misc See Rx Instructions .Route Qty: 100 5RF Rx Instructions: three times day fluoxetine 20 mg capsule 20 mg PO BID Qty: 60 2RF Rx Instructions: dose increase (DME) FreeStyle Ayesha 2 Sensor Kit See Rx Instructions .ROUTE .MEDSUPPLY Qty: 2 11RF Rx Instructions: change every 14 days (DME) FreeStyle Ayesha 2 [place] Misc See Rx Instructions .ROUTE .MEDSUPPLY Qty: 1 0RF Rx Instructions: As directed (DME) Alternating pressure mattress and pressure pump See Rx Instructions .Route .MEDSUPPLY Qty: 1 0RF Rx Instructions: As directed aspirin 81 mg tablet,delayed release (DR/EC) 81 mg PO DAILY amlodipine 10 mg tablet 10 mg PO DAILY Qty: 60 2RF fluticasone propion-salmeterol [AirDuo RespiClick] 232-14 mcg/actuation aerosol powdr breath activated 1 inh inhalation Q12H Qty: 1 2RF insulin degludec [Tresiba FlexTouch U-200] 200 unit/mL (3 mL) insulin pen 80 unit SUBCUT DAILY Qty: 18 2RF Culturelle 10 billion cell capsule 1 cap PO .three times day Qty: 90 2RF losartan [Cozaar] 100 mg tablet 100 mg PO DAILY Qty: 30 2RF magnesium oxide 400 mg magnesium tablet 400 mg PO DAILY Qty: 30 2RF pantoprazole 40 mg tablet,delayed release (DR/EC) 40 mg PO DAILY Qty: 30 2RF sennosides-docusate sodium [Senokot-S] 8.6-50 mg tablet 1 tab-cap PO BID Qty: 60 2RF torsemide 20 mg tablet 20 mg PO QAM Qty: 30 2RF (DME) diabetic shoes with inserts See Rx Instructions .Route .MEDSUPPLY Qty: 1 0RF Rx Instructions: [place] [place] blood-glucose meter [OneTouch Ultra2 Meter] Kit See Rx Instructions .Route Qty: 1 0RF Rx Instructions: As directed Nystop 100,000 unit/gram powder 1 applic topical BID Qty: 15 2RF (DME) Bariatric emy lift See Rx Instructions .Route .MEDSUPPLY Qty: 1 0RF Rx Instructions: BMI 57.5% weight 325# [place] [place] OneTouch Ultra Test Strip See Rx Instructions .Route Qty: 100 5RF Rx Instructions: 1 strip three time day [place] [place] pen needle, diabetic [TechLITE Pen Needle] 31 gauge x 5/16 needle See Rx Instructions .ROUTE .MEDSUPPLY Qty: 200 5RF Rx Instructions: use 4 times day nitroglycerin [Nitrostat] 0.4 mg tablet, sublingual 0.4 mg SUBLINGUAL Q5M PRN (Reason: Chest Pain) Qty: 50 3RF Rx Instructions: do not exceed 3 doses per episode isosorbide mononitrate 120 mg tablet extended release 24 hr 120 mg PO QDAY Qty: 30 2RF Rx Instructions: to replace 40mg TID tizanidine 4 mg tablet 4 mg PO BID PRN (Reason: muscle spasticity) Qty: 14 0RF insulin lispro [Humalog KwikPen Insulin] 100 unit/mL insulin pen See Rx Instructions SUBCUT .COMPLEX Qty: 15 2RF Rx Instructions: 6-27U SUBCUT three times daily subcutaneously; per sliding scale zonisamide [Zonegran] 25 mg capsule 25 mg PO Q12H Qty: 60 2RF cholecalciferol (vitamin D3) [Vitamin D3] 125 mcg (5,000 unit) Tablet 125 mcg PO DAILY acetaminophen 325 mg tablet 325 - 650 mg PO Q6H PRN (Reason: Pain) Vitamin B-12 50 mcg Tablet 50 mcg PO DAILY Qty: 0 oxycodone 5 mg tablet 2.5 - 5 mg PO Q8H PRN (Reason: Pain) albuterol sulfate [ProAir HFA] 90 mcg/actuation HFA aerosol inhaler 2 puff INHALATION Q4H PRN (Reason: shortness of breath or wheezing) Qty: 8.5 3RF ondansetron 4 mg tablet,disintegrating 4 mg PO Q6H PRN (Reason: nausea and vomiting) Qty: 14 0RF Discharge Orders: Discharge ED (Routine); Ordered 03/22/24 Ordered By: Mango Liu Referrals: Lorenzo Muller, [facility] [Primary Care Provider] - 1 week Patient Instructions: Constipation - Adult, Chronic Kidney Disease Diet (DC) Activity Restrictions/Additional Instructions: Please increase your MiraLAX dose to 2 capfuls 3 times a day until having several soft stools edilia and then decrease it to 2 capfuls twice a day for a couple day and then decrease it to 2 capsules daily. You may need to be on a daily bowel regimen to keep your constipation manageable. Also make for sure you are staying well-hydrated and drink plenty water this as this will help with your constipation. Coding Level of Care Code ED [facility] [facility] for Anel Mcknight
[2024-03-22] MEDS: HYDROmorphone 1 mg/mL INJ 1 mL 0.400000000000000022 MG IVP (22:11)
[2024-03-22 22:26] LABS: Basophils # 0.1 10^3/uL (0.0-0.1); Basophils % 0.5 %; Eosinophils # 0.2 10^3/uL (0.0-0.8); Eosinophils % 1.7 %; Hematocrit 31.4 % (36-47); Lymphocytes # 1.5 10^3/uL (0.8-4.8); Mean Corpuscular HGB Conc 34.1 g/dL (30-55); Mean Corpuscular Hemoglobin 29.5 pg (27-33); Mean Corpuscular Volume 86.5 fl (85-98); Mean Platelet Volume 10.6 fL (7.4-10.4); Monocytes # 0.7 10^3/uL (0.2-0.9); Monocytes % 6.5 %; Neutrophils # 8.46 10^3/uL (1.8-7.7); Neutrophils % 76.9 %; Nucleated Red Blood Cells % 0 %; Platelet Count 234 10^3/cmm (157-399); Red Blood Count 3.63 10^6/uL (3.85-5.65); Red Cell Distribution Width 13.1 % (12.1-15.1)
[2024-03-22 22:43] LABS: Alanine Aminotransferase 14 U/L (0-33); Albumin Level 4.4 g/dL (3.5-5.2); Alkaline Phosphatase 89 U/L (35-105); Anion Gap 19.6 (5-19); Aspartate Amino Transferase 20 U/L (0-32); Calcium 10.8 mg/dL (8.5-10.5); Carbon Dioxide 31 mmol/L (22-29); Chloride 85 mmol/L (98-107); Creatinine Clr Calc Pharmacy 26.8371; Globulin 3.8 g/dL (1.3-4.6); Glomerular Filtration Rate 19.3 mL/min (90-130); Glucose 88 mg/dL (65-115); Magnesium 3.1 mg/dL (1.7-2.3); Osmolality Calculated 304 mOsm/kg (285-295); Potassium 3.6 mmol/L (3.5-5.1); Sodium 132 mmol/L (136-145); Total Bilirubin 0.4 mg/dL (0.15-1.2); Total Protein 8.2 g/dL (6.6-8.7)
[2024-03-22 22:49] LABS: Blood Urea Nitrogen 97 mg/dL (8-23)
[2024-03-23] MEDS: sodium chloride 0.9% 1,000 ML 999 ML IV
[2024-03-23 00:50] VITALS: BP 164/71; PULSE 93; RESP 18; TEMP 36.7; O2SAT 96
== END 2024-03-23 02:22 | disposition home or self-care (01) ==
PROVIDERS: Emergency Provider Emergency Medicine; PCP Nurse Practitioner
DX: K59.00 Constipation, unspecified (principal); E11.22 Type 2 diabetes mellitus with diabetic chronic kidney disease; I13.0 Hypertensive heart and chronic kidney disease with heart failure and stage 1 through stage 4 chronic kidney disease, or unspecified chronic kidney disease; N18.30 Chronic kidney disease, stage 3 unspecified; I50.9 Heart failure, unspecified; J44.9 Chronic obstructive pulmonary disease, unspecified; Z87.891 Personal history of nicotine dependence; Z79.82 Long term (current) use of aspirin; Z79.4 Long term (current) use of insulin
CPT/HCPCS: 74018; 80053; 83735; 85025; 96374; 99284; J1170; J7030

== ENCOUNTER → 2024-03-30 10:27 | Outpatient (BNVA) | payer MEDICARE, MEDICAID, SELFPAY | PROVIDERS: PCP Nurse Practitioner; Visit Provider Nurse Practitioner Family | DX: R07.9 Chest pain, unspecified (principal); R60.0 Localized edema; M79.605 Pain in left leg; I45.10 Unspecified right bundle-branch block | CPT/HCPCS: 93005 ==

== ENCOUNTER 2024-03-30 12:00 | Outpatient (CLI) | payer MEDICARE, MEDICAID, SELFPAY | END 2024-03-30 12:01 | LOC: RAD 05-21 11:38 | PROVIDERS: PCP Internal Medicine; Visit Provider Nurse Practitioner Family | DX: I13.0 Hypertensive heart and chronic kidney disease with heart failure and stage 1 through stage 4 chronic kidney disease, or unspecified chronic kidney disease (principal); E11.22 Type 2 diabetes mellitus with diabetic chronic kidney disease; N18.30 Chronic kidney disease, stage 3 unspecified; I50.32 Chronic diastolic (congestive) heart failure; Z87.891 Personal history of nicotine dependence; Z79.4 Long term (current) use of insulin; R60.0 Localized edema; M79.605 Pain in left leg | CPT/HCPCS: 36415; 80048; 80069; 83880; 93971; 99214 ==

== ENCOUNTER 2024-04-04 18:43 | Emergency (ER) | payer MEDICARE, MEDICAID, SELFPAY ==
[2024-04-04 18:44] VITALS: BP 178/92; PULSE 84; RESP 16; TEMP 37.4; O2SAT 100; BMI 46.9
--- NOTE | 2024-04-04 18:46 | XRR_ITS ---
PROCEDURE INFORMATION: Exam: XR Chest Exam date and time: 04/04/2024 7:25 PM Age: 68 years old Clinical indication: Pain; Angina pectoris; Additional info: Cp TECHNIQUE: Imaging protocol: Radiologic exam of the chest. Views: 1 view. COMPARISON: CR XR chest 1V portable [id number] 12/28/2023 6:07 AM FINDINGS: Lungs: Mild interstitial prominence, likely chronic. Pleural spaces: No pleural effusion or pneumothorax. Heart/Mediastinum: Mild patient rotation limits evaluation of the cardiomediastinal silhouette. Probable mild cardiomegaly. Vasculature: Atherosclerotic calcifications of the aorta are noted. Bones/joints: No acute osseous abnormalities are seen. XR/XR chest 1V portable [id number] IMPRESSION: Mild interstitial prominence, likely chronic. Pulmonary edema or atypical infection could also cause this appearance.
--- NOTE | 2024-04-04 18:51 | ECG_ITS ---
[facility] Test Date: 2024-04-04 Pat Name: Jennifer Novak Department: Room: Gender: Female Concession Manager: : 1955 Requested By: Loly Dasilva Order Number: [id number] Cierra MD: Addison Morales M.D. Measurements Intervals [place] Rate: 91 P: 78 NM: 215 QRS: -69 QRSD: 157 T: 25 QT: 487 QTc: 601 Interpretive Statements SINUS RHYTHM WITH FIRST DEGREE AV BLOCK LEFT AXIS DEVIATION [QRS AXIS < -30] RIGHT BUNDLE BRANCH BLOCK [120+ ms QRS DURATION, UPRIGHT V1, 40+ ms S IN I/aVL/V4/V5/V6] SEPTAL MYOCARDIAL INFARCTION , OF INDETERMINATE AGE [40+ ms Q WAVE IN V1/V2] Compared to ECG 03/30/2024 10:34:57 Left-axis deviation now present Right-axis deviation no longer present Myocardial infarct finding still present Electronically Signed On 04-04-2024 22:47:31 CDT by Addison Morales M.D. [email or web address]
--- NOTE | 2024-04-04 18:52 | ED_ITS ---
HPI - Chest Pain 2 General: Chief Complaint: Chest Pain Stated Complaint: Chest pain Time Seen by Provider: 04/04/24 18:45 Source: patient Mode of arrival: ambulatory Limitations: no limitations History of Present Illness: 68-year-old female well-known to the ER states she been having chest pain off and on for the last 3 days she states been a sharp pain she had some radiation to her neck she appears quite anxious here currently. She has had abdominal pains been going on for weeks as well denies any nausea vomiting or diaphoresis. Patient given aspirin in route. Associated symptoms: Reports abdominal pain; Deny dyspnea, fever(s), nausea or vomiting Review of Systems 2 Const: Denies: fever(s), chills, body aches or change in appetite ENMT: Denies: throat pain or dental pain Card: Reports: chest pain Resp: Denies: dyspnea GI: Reports: abdominal pain; Denies: nausea, vomiting or diarrhea Musc: Denies: neck pain or back pain Skin/Breast: Denies: rash Neuro: Denies: headache(s) PFSH ED 2 PFSH: Medical History Chronic diastolic heart failure Gastric ulcer H. pylori ruled out at [facility] Situational anxiety Benign hypertension Type 2 diabetes mellitus with diabetic chronic kidney disease Hospital-acquired pneumonia Acute exacerbation of CHF (congestive heart failure) Acute on chronic renal failure Diabetic gastroparesis Hypoxia Anemia Positive GIFTY (antinuclear antibody) Frequent falls Muscle spasm High risk medication use Seronegative rheumatoid arthritis of both hands Diabetic foot Hip pain, left Atypical chest pain IgM monoclonal gammopathy of uncertain significance Intermittent atrial fibrillation Chest pain Edema CKD (chronic kidney disease) stage 3, GFR 30-59 ml/min Urinary disorder Anxiety Pneumonitis Left lumbar radiculopathy Back pain Lymph edema Fracture of distal end of fibula Syncope and collapse Essential tremor Mobility impaired IBS (irritable bowel syndrome) Inflammatory arthritis Chronic back pain Chronic major depressive disorder Peripheral neuropathy Polyarthralgia Edema, peripheral Noncompliance with diabetes treatment Not consistent with diet Near syncope Monoclonal gammopathy Major depression Diabetic neuropathy associated with type 2 diabetes mellitus Severe obstructive sleep apnea Mild cognitive impairment with memory loss Dietary noncompliance Atrial flutter Coronary artery fistula Chronic obstructive pulmonary disease, unspecified Obesity CKD (chronic kidney disease) Fibromyalgia Diverticulosis Environmental and seasonal allergies Vitamin D deficiency Surgical History History of left heart catheterization (2018) No significant obstructive coronary disease Hx of esophagogastroduodenoscopy Hx of colonoscopy History of tonsillectomy History of section 4 times History of cholecystectomy (1993) History of hysterectomy (1997) with BSO Family History Brother Bleeding disorder CAD (coronary artery disease) Father CAD (coronary artery disease) Chronic kidney disease (CKD) Mother CAD (coronary artery disease) Cancer Diabetes Family/Other Cancer Other Congestive heart failure (CHF) Heart disease Hypertension Denies family history of Clotting disorder Dementia Suicide Anesthesia complication Lung disease Stroke Social History Smoking and tobacco/nicotine status: former use of tobacco/nicotine Quit status (tobacco/nicotine): has quit using Year quit tobacco: 1990 Former quit date comment: smoked 20+ years Second hand smoke exposure: No Alcohol intake: never Substance/Drug Use: never Adopted: No Caregiver/support person: Yes Lives independently: No Household members: children and other Details: Son, sometimes grandson Housing: House Marital status: Single service: No Current occupational status: disabled Do you think of yourself as: Straight/Heterosexual Current gender identity: Female Physical Exam 2 Const: COMMON NORMALS: patient oriented x3 GENERAL APPEARANCE: anxious HENMT: COMMON NORMALS: normocephalic and atraumatic HEAD & SCALP: n ormocephalic and atraumatic Neck/C-Spine: COMMON NORMALS: full ROM and supple Chest: COMMONS NORMALS: normal inspection of the chest and normal palpation of entire chest wall Resp: COMMON NORMALS: normal respiratory effort, No retractions, No use of accessory muscles and clear to auscultation bilaterally AUSCULTATION: clear to auscultation bilaterally Cardio: COMMON NORMALS: regular rate, regular rhythm and No murmurs present (Cardio) RATE: regular rate RHYTHM: regular rhythm GI: COMMON NORMALS: Normal to inspection, nondistended, normoactive bowel sounds present, Soft to palpation and no masses PALPATION: Yes Soft to palpation Extremity: COMMON NORMALS: normal to inspection and full ROM Neuro: COMMON NORMALS: patient oriented x3, moves all extremities and no focal motor deficits Psych: COMMON NORMALS: mental status grossly normal, Normal thought process present and cooperative THOUGHT PROCESS: Normal thought process present Skin: COMMON NORMALS: no rashes or lesions noted and no wounds GENERAL SKIN EXAM: no rashes or lesions noted Course 2 Vital Signs: Vital signs: Vital Signs Temperature 98.6 F 04/04/24 21:58 Pulse Rate 75 04/04/24 21:41 Respiratory Rate 19 H 04/04/24 21:41 Blood Pressure 153/68 04/04/24 21:41 Pulse Oximetry 97 04/04/24 21:41 Oxygen Delivery Me thod Nasal Cannula 04/04/24 21:41 Oxygen Flow Rate 2 04/04/24 21:41 MDM - Chest Pain Medical Decision Making Patient presents for chest pain since resolved CT scan here is normal troponins are negative she has no signs of dissection or pulmonary embolism she is stable for discharge she is followed her PCP she is return if worsening she understands agrees to plan Medical Records I reviewed the patient's medical records. Lab Data I reviewed the patient's lab results. 04/04/24 19:00 04/04/24 19:00 Radiology Impressions Chest X-Ray 04/04/24 18:46 IMPRESSION: Mild interstitial prominence, likely chronic. Pulmonary edema or atypical infection could also cause this appearance. Chest/Abdomen/Pelvis CT 04/04/24 20:03 IMPRESSION: No acute cardiopulmonary disease. IMPRESSION: No acute intra-abdominal or pelvic process. Laboratory Results WBC 6.88 10^3/uL (3.29-11.43) 04/04/24 19:00 RBC 3.35 10^6/uL (3.85-5.65) L 04/04/24 19:00 Hgb 10.10 g/dL (11.27-16.99) L 04/04/24 19:00 Hct 29.6 % (36-47) L 04/04/24 19:00 MCV 88.4 fl (85-98) 04/04/24 19:00 MCH 30.1 pg (27-33) 04/04/24 19:00 MCHC 34.1 g/dL (30-55) 04/04/24 19:00 RDW 13.2 % (12.1-15.1) 04/04/24 19:00 Plt Count 189 10^3/cmm (157-399) 04/04/24 19:00 MPV 9.5 fL (7.4-10.4) 04/04/24 19:00 Neut % (Auto) 68.6 % 04/04/24 19:00 Lymph % (Auto) 18.9 % 04/04/24 19:00 [place] % (Auto) 7.3 % 04/04/24 19:00 Eos % (Auto) 4.2 % 04/04/24 19:00 Baso % (Auto) 0.9 % 04/04/24 19:00 Neut # (Auto) 4.72 10^3/uL (1.8-7.7) 04/04/24 19:00 Lymph # (Auto) 1.3 10^3/uL (0.8-4.8) 04/04/24 19:00 [place] # (Auto) 0.5 10^3/uL (0.2-0.9) 04/04/24 19:00 Eos # (Auto) 0.3 10^3/uL (0.0-0.8) 04/04/24 19:00 Baso # (Auto) 0.1 10^3/uL (0.0-0.1) 04/04/24 19:00 Nucleated RBC % (auto) 0 % 04/04/24 19:00 Nucleated RBCs # 0.0 /100WBC 04/04/24 19:00 Sodium 141 mmol/L (136-145) 04/04/24 19:00 Potassium 4.3 mmol/L (3.5-5.1) 04/04/24 19:00 Chloride 102 mmol/L (98-107) 04/04/24 19:00 Carbon Dioxide 26 mmol/L (22-29) 04/04/24 19:00 Anion Gap 17.3 (5-19) 04/04/24 19:00 BUN 41 mg/dL (8-23) H 04/04/24 19:00 Creatinine 2.0 mg/dL (0.5-0.9) H 04/04/24 19:00 GFR Calculation 24.9 mL/min (90-130) L 04/04/24 19:00 Glucose 148 mg/dL (65-115) H 04/04/24 19:00 Calculated Osmolality 305 mOsm/kg (285-295) H 04/04/24 19:00 Calcium 9.2 mg/dL (8.5-10.5) 04/04/24 19:00 Total Bilirubin 0.3 mg/dL (0.15-1.2) 04/04/24 19:00 AST 21 U/L (0-32) 04/04/24 19:00 ALT 12 U/L (0-33) 04/04/24 19:00 Alkaline Phosphatase 92 U/L (35-105) 04/04/24 19:00 Troponin T Baseline 77 ng/L (0-10) H 04/04/24 19:00 Troponin T 120 Minute 72.21 ng/L (0-10) H 04/04/24 21:00 Delta Troponin T -4.79 ABS# (0-10) L 04/04/24 21:00 Total Protein 6.6 g/dL (6.6-8.7) 04/04/24 19:00 Albumin 3.8 g/dL (3.5-5.2) 04/04/24 19:00 Globulin 2.8 g/dL (1.3-4.6) 04/04/24 19:00 Lipase 67 U/L (13-60) H 04/04/24 19:00 All radiology interpretation(s) finalized by discharge EKG Data EKG 1: I personally reviewed and interpreted this EKG as follows: EKG interpretation date: 04/04/24 EKG interpretation time: 18:51 Interpretation: nsr hr [address] elevation qrs 157 qtc 536 Discharge Plan Discharge Patient Disposition: Home Clinical Impression: Chest pain Condition: Stable Prescriptions: No Action (DME) lancing device with lancets [OneTouch Delica Plus Lanc Dev] Kit See Rx Instructions .Route Qty: 1 0RF Rx Instructions: As directed (DME) lancets [OneTouch Delica Lancets] 33 gauge misc See Rx Instructions .Route Qty: 100 5RF Rx Instructions: three times day fluoxetine 20 mg capsule 20 mg PO BID Qty: 60 2RF Rx Instructions: dose increase (DME) FreeStyle Ayesha 2 Sensor Kit See Rx Instructions .ROUTE .MEDSUPPLY Qty: 2 11RF Rx Instructions: change every 14 days (DME) FreeStyle Ayesha 2 [place] Misc See Rx Instructions .ROUTE .MEDSUPPLY Qty: 1 0RF Rx Instructions: As directed (DME) Alternating pressure mattress and pressure pump See Rx Instructions .Route .MEDSUPPLY Qty: 1 0RF Rx Instructions: As directed aspirin 81 mg tablet,delayed release (DR/EC) 81 mg PO DAILY amlodipine 10 mg tablet 10 mg PO DAILY Qty: 60 2RF fluticasone propion-salmeterol [AirDuo RespiClick] 232-14 mcg/actuation aerosol powdr breath activated 1 inh inhalation Q12H Qty: 1 2RF insulin degludec [Tresiba FlexTouch U-200] 200 unit/mL (3 mL) insulin pen 80 unit SUBCUT DAILY Qty: 18 2RF Culturelle 10 billion cell capsule 1 cap PO .three times day Qty: 90 2RF losartan [Cozaar] 100 mg tablet 100 mg PO DAILY Qty: 30 2RF magnesium oxide 400 mg magnesium tablet 400 mg PO DAILY Qty: 30 2RF pantoprazole 40 mg tablet,delayed release (DR/EC) 40 mg PO DAILY Qty: 30 2RF sennosides-docusate sodium [Senokot-S] 8.6-50 mg tablet 1 tab-cap PO BID Qty: 60 2RF torsemide 20 mg tablet 20 mg PO QAM Qty: 30 2RF (DME) diabetic shoes with inserts See Rx Instructions .Route .MEDSUPPLY Qty: 1 0RF Rx Instructions: As directed metolazone 2.5 mg tablet 2.5 mg PO DAILY potassium chloride 20 mEq packet 20 meq PO DAILY (DME) blood-glucose meter [OneTouch Ultra2 Meter] Kit See Rx Instructions .Route Qty: 1 0RF Rx Instructions: As directed Nystop 100,000 unit/gram powder 1 applic topical BID Qty: 15 2RF (DME) Bariatric emy lift See Rx Instructions .Route .MEDSUPPLY Qty: 1 0RF Rx Instructions: BMI 57.5% weight 325# (DME) OneTouch Ultra Test Strip See Rx Instructions .Route Qty: 100 5RF Rx Instructions: 1 strip three time day (DME) pen needle, diabetic [TechLITE Pen Needle] 31 gauge x 5/16 needle See Rx Instructions .ROUTE .MEDSUPPLY Qty: 200 5RF Rx Instructions: use 4 times day nitroglycerin [Nitrostat] 0.4 mg tablet, sublingual 0.4 mg SUBLINGUAL Q5M PRN (Reason: Chest Pain) Qty: 50 3RF Rx Instructions: do not exceed 3 doses per episode isosorbide mononitrate 120 mg tablet extended release 24 hr 120 mg PO QDAY Qty: 30 2RF Rx Instructions: to replace 40mg TID tizanidine 4 mg tablet 4 mg PO BID PRN (Reason: muscle spasticity) Qty: 14 0RF insulin lispro [Humalog KwikPen Insulin] 100 unit/mL insulin pen See Rx Instructions SUBCUT .COMPLEX Qty: 15 2RF Rx Instructions: 6-27U SUBCUT three times daily subcutaneously; per sliding scale zonisamide [Zonegran] 25 mg capsule 25 mg PO Q12H Qty: 60 2RF polyethylene glycol 3350 [Miralax] 17 gram/dose powder 17 g PO DAILY Qty: 510 2RF cholecalciferol (vitamin D3) [Vitamin D3] 125 mcg (5,000 unit) Tablet 125 mcg PO DAILY acetaminophen 325 mg tablet 325 - 650 mg PO Q6H PRN (Reason: Pain) Vitamin B-12 50 mcg Tablet 50 mcg PO DAILY Qty: 0 oxycodone 5 mg tablet 2.5 - 5 mg PO Q8H PRN (Reason: Pain) albuterol sulfate [ProAir HFA] 90 mcg/actuation HFA aerosol inhaler 2 puff INHALATION Q4H PRN (Reason: shortness of breath or wheezing) Qty: 8.5 3RF ondansetron 4 mg tablet,disintegrating 4 mg PO Q6H PRN (Reason: nausea and vomiting) Qty: 14 0RF Discharge Orders: Discharge ED (Routine); Ordered 04/04/24 Ordered By: Loly Dasilva Referrals: Lorenzo Muller, [employer] MACHINE TENDER-C [Primary Care Provider] - 1-3 days Discharge Diet: Advance as tolerated Discharge Activity: Resume usual activity Patient Instructions: Chest Pain (ED) Coding Level of Care Code ED Field Placement Director for Anel Mcknight
[2024-04-04] MEDS: LORazepam 2 mg/mL INJ 10 mL MDV 1 MG IVP (19:09)
[2024-04-04 19:12] LABS: Basophils # 0.1 10^3/uL (0.0-0.1); Basophils % 0.9 %; Eosinophils # 0.3 10^3/uL (0.0-0.8); Eosinophils % 4.2 %; Hematocrit 29.6 % (36-47); Lymphocytes # 1.3 10^3/uL (0.8-4.8); Lymphocytes % 18.9 %; Mean Corpuscular HGB Conc 34.1 g/dL (30-55); Mean Corpuscular Hemoglobin 30.1 pg (27-33); Mean Corpuscular Volume 88.4 fl (85-98); Mean Platelet Volume 9.5 fL (7.4-10.4); Monocytes # 0.5 10^3/uL (0.2-0.9); Monocytes % 7.3 %; Neutrophils # 4.72 10^3/uL (1.8-7.7); Neutrophils % 68.6 %; Nucleated Red Blood Cells % 0 %; Platelet Count 189 10^3/cmm (157-399); Red Blood Count 3.35 10^6/uL (3.85-5.65); Red Cell Distribution Width 13.2 % (12.1-15.1); White Blood Count 6.88 10^3/uL (3.29-11.43)
[2024-04-04 19:30] LABS: Troponin(5th) Baseline 77 ng/L (0-10)
[2024-04-04 19:34] LABS: Alanine Aminotransferase 12 U/L (0-33); Albumin Level 3.8 g/dL (3.5-5.2); Alkaline Phosphatase 92 U/L (35-105); Blood Urea Nitrogen 41 mg/dL (8-23); Calcium 9.2 mg/dL (8.5-10.5); Carbon Dioxide 26 mmol/L (22-29); Chloride 102 mmol/L (98-107); Creatinine Clr Calc Pharmacy 34.7351; Globulin 2.8 g/dL (1.3-4.6); Glomerular Filtration Rate 24.9 mL/min (90-130); Glucose 148 mg/dL (65-115); Lipase 67 U/L (13-60); Osmolality Calculated 305 mOsm/kg (285-295); Sodium 141 mmol/L (136-145); Total Bilirubin 0.3 mg/dL (0.15-1.2); Total Protein 6.6 g/dL (6.6-8.7)
[2024-04-04 19:36] LABS: Anion Gap 17.3 (5-19); Aspartate Amino Transferase 21 U/L (0-32); Potassium 4.3 mmol/L (3.5-5.1)
--- NOTE | 2024-04-04 20:03 | CTR_ITS ---
PROCEDURE INFORMATION: Exam: CT Chest Without Contrast; Diagnostic Exam date and time: 04/04/2024 8:24 PM Age: 68 years old Clinical indication: Bloating; Angina and shortness of breath; Prior surgery; Surgery date: 6+ months; Surgery type: , gb, hyst; Additional info: Cp TECHNIQUE: Imaging protocol: Diagnostic computed tomography of the chest without contrast. Radiation optimization: All CT scans at this facility use at least one of these dose optimization techniques: automated exposure control; mA and/or kV adjustment per patient size (includes targeted exams where dose is matched to clinical indication); or iterative reconstruction. COMPARISON: CT angio chest PE protcl [id number] 08/13/2023 5:41 PM RADIATION DOSE METRICS: Total DLP (mGy-cm): 1322 FINDINGS: Lungs: Mild lingular atelectasis and/or scarring. No pulmonary consolidation or pulmonary contusion no pulmonary mass or suspicious pulmonary nodule. Punctate left lower lobe calcified granuloma. Pleural spaces: Unremarkable. No pneumothorax. No pleural effusion. Heart: Heart size is within normal limits. There is no pericardial effusion or pericardial thickening. Coronary arteries: Mild coronary artery calcification. Mediastinal space: No mediastinal hematoma. Lymph nodes: There are no enlarged mediastinal or axillary lymph nodes. The katie are not well evaluated due to lack of intravenous contrast. Vasculature: Atherosclerotic calcifications of the aorta are present. No aneurysm is identified. Bones/joints: No acute osseous abnormalities are seen. Moderate multilevel degenerative changes of the thoracic spine. Soft tissues: The soft tissues are within normal limits. PROCEDURE INFORMATION: Exam: CT Abdomen And Pelvis Without Contrast Exam date and time: 04/04/2024 8:24 PM Age: 68 years old Clinical indication: Bloating; Angina and shortness of breath; Prior surgery; Surgery date: 6+ months; Surgery type: , gb, hyst; Additional info: Cp TECHNIQUE: Imaging protocol: Computed tomography of the abdomen and pelvis without contrast. Radiation optimization: All CT scans at this facility use at least one of these dose optimization techniques: automated exposure control; mA and/or kV adjustment per patient size (includes targeted exams where dose is matched to clinical indication); or iterative reconstruction. COMPARISON: CT abdomen pelvis wo con [id number] 03/14/2024 9:41 PM RADIATION DOSE METRICS: Total DLP (mGy-cm): 1322 FINDINGS: Liver: The liver is normal. No hepatic masses are identified. Gallbladder and bile ducts: The gallbladder is surgically absent. There is no ductal dilatation. Pancreas: The pancreas is normal. Spleen: The spleen is normal. Adrenal glands: The adrenal glands are normal. Kidneys and ureters: No renal calcifications are identified. There is no hydronephrosis. Stomach and bowel: Mild colonic diverticulosis without diverticulitis. There is no large or small bowel obstruction. There is no evidence of bowel wall thickening. Appendix: A normal appendix is not identified. There is no secondary evidence of acute appendicitis. Intraperitoneal space: No inflammatory changes are identified. There is no free fluid or fluid collection seen. There is no pneumoperitoneum. Vasculature: Atherosclerotic calcifications of the aorta are present. No aneurysm is identified. Lymph nodes: Unremarkable. No enlarged lymph nodes. Urinary bladder: The bladder is unremarkable. Reproductive: The uterus is absent. Bones/joints: No acute osseous abnormalities are seen. Azuynzis-aj-ubyvps multilevel degenerative changes of the lumbar spine. Soft tissues: Questionable subcutaneous edema or bruising over the hips, not well assessed due to limited field of view secondary to patient's body habitus. CT/[place] [id number] IMPRESSION: No acute cardiopulmonary disease. IMPRESSION: No acute intra-abdominal or pelvic process.
--- NOTE | 2024-04-04 20:45 | PC.NURSE ---
Pt c/o visual changes. States that she is seeing frog eggs in her right eye and blood in the left. Pt has clear eyes, PERRLA. Dr ward notified.
[2024-04-04 20:54] VITALS: BP 146/85; PULSE 76; RESP 19; O2SAT 100
--- NOTE | 2024-04-04 21:17 | ECG_ITS ---
[facility] Test Date: 2024-04-04 Pat Name: Jennifer Novak Department: Room: Gender: Female Programs Director: : 1955 Requested By: Loly Dasilva Order Number: [id number] Reading MD: Addison Morales M.D. Measurements Intervals [place] Rate: 74 P: 80 WI: 208 QRS: -70 QRSD: 157 T: 30 QT: 467 QTc: 520 Interpretive Statements SINUS RHYTHM LEFT AXIS DEVIATION [QRS AXIS < -30] RIGHT BUNDLE BRANCH BLOCK [120+ ms QRS DURATION, UPRIGHT V1, 40+ ms S IN I/aVL/V4/V5/V6] SEPTAL MYOCARDIAL INFARCTION , OF INDETERMINATE AGE [40+ ms Q WAVE IN V1/V2] Compared to ECG 04/04/2024 18:51:16 First degree AV block no longer present Myocardial infarct finding still present Electronically Signed On 04-04-2024 22:48:46 CDT by Addison Morales M.D. [id number]
[2024-04-04 21:36] LABS: Troponin 5 2HR 72.21 ng/L (0-10)
[2024-04-04 21:38] LABS: Troponin 5 2HR Delta -4.79 ABS# (0-10)
[2024-04-04 21:41] VITALS: BP 153/68; PULSE 75; RESP 19; O2SAT 97
[2024-04-04 21:58] VITALS: TEMP 37
[2024-04-04 22:35] VITALS: BP 139/67; PULSE 78; RESP 18; O2SAT 100
== END 2024-04-04 22:37 | disposition home or self-care (01) ==
PROVIDERS: Emergency Provider Emergency Medicine; PCP Nurse Practitioner
DX: R07.9 Chest pain, unspecified (principal); Z79.82 Long term (current) use of aspirin; Z79.4 Long term (current) use of insulin; Z87.891 Personal history of nicotine dependence; E11.22 Type 2 diabetes mellitus with diabetic chronic kidney disease; I13.0 Hypertensive heart and chronic kidney disease with heart failure and stage 1 through stage 4 chronic kidney disease, or unspecified chronic kidney disease; N18.30 Chronic kidney disease, stage 3 unspecified; I50.30 Unspecified diastolic (congestive) heart failure; J44.9 Chronic obstructive pulmonary disease, unspecified
CPT/HCPCS: 71045; 71250; 74176; 80053; 83690; 84484; 85025; 93005; 96374; 99285; J2060

== ENCOUNTER 2024-04-24 08:50 | Outpatient (CLI) | payer MEDICARE, MEDICAID, SELFPAY ==
--- NOTE | 2024-04-24 08:55 | XRR_ITS ---
PROCEDURE INFORMATION: Exam: XR Right Shoulder Exam date and time: 04/24/2024 8:59 AM Age: 69 years old Clinical indication: Pain; Shoulder; Right; Additional info: M25.50 - pain in unspecified joint TECHNIQUE: Imaging protocol: Radiologic exam of the right shoulder. Views: 2 or more views. COMPARISON: CR XR shoulder RT min 2V* [id number] 12/13/2021 2:54 PM FINDINGS: Bones/joints: No acute fracture or dislocation. Soft tissues: Soft tissues are within normal limits. XR/XR shoulder RT min 2V* [id number] IMPRESSION: No acute fracture or dislocation.
--- NOTE | 2024-04-24 08:55 | XRR_ITS ---
PROCEDURE INFORMATION: Exam: XR Right Elbow Exam date and time: 04/24/2024 8:59 AM Age: 69 years old Clinical indication: Pain; Elbow; Right; Additional info: M25.50 - pain in unspecified joint TECHNIQUE: Imaging protocol: Radiologic exam of the right elbow. Views: 3 or more views. COMPARISON: CR XR shoulder RT min 2V* [id number] 04/24/2024 8:59 AM FINDINGS: Bones/joints: Normal. Soft tissues: Normal. XR/XR elbow RT min 3V* [id number] IMPRESSION: No acute findings.
--- NOTE | 2024-04-24 08:58 | CT_ITS ---
WS: [id number] CT ABDOMEN AND PELVIS NONCONTRAST HISTORY: NAUSEA VOMITING TECHNIQUE: Imaging performed through the abdomen and pelvis. Coronal and sagittal reformats are submi tted. All CT scans at [facility] use at least one of these dose optimization techniques: auto mated exposure control; mA and/or kV adjustment per patient size (includes targeted exams where dose is matched to clinical indication); or iterative reconstruction. DLP: 1000.61 mGy.cm COMPARISON: 04/04/2024, 03/14/2024 Lower thorax: Lung bases are clear. Visualized heart is normal. No hiatal hernia. Liver: Normal size liver. No mass or bile duct dilatation. Gallbladder: Prior cholecystectomy. Pancreas: Mild pancreatic atrophy. No evidence for acute pancreatitis. Spleen: Normal. Adrenal glands: Normal. No mass. Right kidney: Normal size kidney with no mass or hydronephrosis. Left kidney: Normal size kidney with no mass or hydronephrosis. Aorta: Mild atherosclerosis abdominal aorta with no aneurysm. Mesenteric artery calcifications. No free fluid, intraperitoneal air or significant lymphadenopathy. GI tract: Stomach is not distended. No small bowel obstruction. Mild diffuse constipation. Normal kim endix. Mild diverticulosis without acute diverticulitis. Abdominal wall: Negative. No hernia. Pelvis: Prior hysterectomy. No free fluid or adenopathy. Osseous structures: Thoracolumbar scoliosis. CT/CT abdomen pelvis con [id number] IMPRESSION: 1. No acute abdominal or pelvic abnormalities on this unenhanced exam. 2. No renal obstruction or perinephric stranding. 3. No colon obstruction. 4. Normal appendix. 5. Prior cholecystectomy.
--- NOTE | 2024-04-24 08:58 | NM_ITS ---
WS: [id number] NUCLEAR MEDICINE GASTRIC STUDY CLINICAL INFORMATION: NAUSEA VOMITING TECHNIQUE: Following oral ingestion of cooked egg mixed with 1.02 mCi technetium 99m sulfur colloid, anterior images of the stomach were obtained over the course of 90 minutes. Activity curve was perfor med over the course of 90 minutes with linear regression analysis. COMPARISON: None. FINDINGS: Oral ingestion of cooked egg labeled Tc 99m sulfur colloid mixture T1 half emptying 222 minutes compatible with delayed gastric emptying. Only 6% emptying at 46 minutes On the 27% emptying at 121 minutes [place] [id number] IMPRESSION: Findings compatible with delayed gastric emptying. *Normal median T1 half 90 minutes for solid egg meal (45-110 minutes). Delayed gastric retention is defined as 90% retained at 1 hour, 60% at 2 hour s, 30% at 3 hours, and 10% at 4 hours (normal percent gastric retention is 37-9 0% at 1 hour, 30-60% at 2 hours, and 0-10% at 4 hours).
== END 2024-04-24 08:51 | disposition home or self-care (01) ==
LOC: RAD 08:50
PROVIDERS: PCP Nurse Practitioner; Visit Provider Internal Medicine
DX: M25.50 Pain in unspecified joint (principal); E11.22 Type 2 diabetes mellitus with diabetic chronic kidney disease; N18.4 Chronic kidney disease, stage 4 (severe); Z79.4 Long term (current) use of insulin; K31.84 Gastroparesis; Z90.49 Acquired absence of other specified parts of digestive tract
CPT/HCPCS: 73030; 73080; 74176; 78264; A9541

== ENCOUNTER 2024-05-10 13:15 | Oncology outpatient (recurring) (ONCR) | payer MEDICARE, MEDICAID, SELFPAY ==
[2024-04-26 14:37] LABS: Basophils # 0.1 10^3/uL (0.0-0.1); Basophils % 0.9 %; Eosinophils # 0.3 10^3/uL (0.0-0.8); Eosinophils % 3.3 %; Hematocrit 31.3 % (36-47); Lymphocytes # 1.7 10^3/uL (0.8-4.8); Lymphocytes % 20.4 %; Mean Corpuscular HGB Conc 33.5 g/dL (30-55); Mean Corpuscular Hemoglobin 29.7 pg (27-33); Mean Corpuscular Volume 88.7 fl (85-98); Mean Platelet Volume 10.1 fL (7.4-10.4); Monocytes # 0.6 10^3/uL (0.2-0.9); Neutrophils # 5.74 10^3/uL (1.8-7.7); Nucleated Red Blood Cells % 0 %; Platelet Count 221 10^3/cmm (157-399); Red Blood Count 3.53 10^6/uL (3.85-5.65); Red Cell Distribution Width 13.1 % (12.1-15.1); White Blood Count 8.44 10^3/uL (3.29-11.43)
[2024-04-26 15:04] LABS: Estmated Average Glucose 100; Hemoglobin A1C 5.1 % (4.0-6.0)
[2024-04-26 15:09] LABS: Alanine Aminotransferase 16 U/L (0-33); Albumin Level 3.7 g/dL (3.5-5.2); Alkaline Phosphatase 86 U/L (35-105); Anion Gap 15.7 (5-19); Aspartate Amino Transferase 18 U/L (0-32); Blood Urea Nitrogen 57 mg/dL (8-23); Calcium 9.8 mg/dL (8.5-10.5); Carbon Dioxide 29 mmol/L (22-29); Chloride 101 mmol/L (98-107); Globulin 3.2 g/dL (1.3-4.6); Glomerular Filtration Rate 26.4 mL/min (90-130); Glucose 78 mg/dL (65-115); Osmolality Calculated 309 mOsm/kg (285-295); Potassium 3.7 mmol/L (3.5-5.1); Sodium 142 mmol/L (136-145); Total Bilirubin 0.2 mg/dL (0.15-1.2); Total Protein 6.9 g/dL (6.6-8.7)
[2024-04-27 09:15] LABS: Erythrocyte Sedimentation Rate 41 mm/hr (0-15)
[2024-04-27 16:10] LABS: Iron 61 ug/dL (37-145); Percent Saturation 33.8 % (20-50); Total Iron Binding Capacity 180 mcg/dl; Unsaturated Iron Binding 119 ug/dL (112-347)
[2024-04-27 16:18] LABS: Vitamin B12 1392 pg/mL (232-1245)
[2024-05-10 13:53] LABS: Basophils # 0.1 10^3/uL (0.0-0.1); Basophils % 1.3 %; Eosinophils # 0.3 10^3/uL (0.0-0.8); Eosinophils % 4.2 %; Hematocrit 31.2 % (36-47); Lymphocytes # 1.4 10^3/uL (0.8-4.8); Mean Corpuscular HGB Conc 33.7 g/dL (30-55); Mean Corpuscular Hemoglobin 30.3 pg (27-33); Mean Corpuscular Volume 89.9 fl (85-98); Mean Platelet Volume 10.5 fL (7.4-10.4); Monocytes # 0.5 10^3/uL (0.2-0.9); Monocytes % 8.5 %; Neutrophils % 61.7 %; Nucleated Red Blood Cells % 0 %; Platelet Count 184 10^3/cmm (157-399); Red Blood Count 3.47 10^6/uL (3.85-5.65)
[2024-05-10 14:15] LABS: Alanine Aminotransferase 14 U/L (0-33); Albumin Level 3.9 g/dL (3.5-5.2); Alkaline Phosphatase 99 U/L (35-105); Anion Gap 16.3 (5-19); Aspartate Amino Transferase 20 U/L (0-32); Blood Urea Nitrogen 49 mg/dL (8-23); Calcium 9.8 mg/dL (8.5-10.5); Carbon Dioxide 31 mmol/L (22-29); Chloride 99 mmol/L (98-107); Globulin 3.1 g/dL (1.3-4.6); Glomerular Filtration Rate 20.1 mL/min (90-130); Glucose 104 mg/dL (65-115); Immunoglobulin IGA 304 mg/dL (70-400); Immunoglobulin IGG 1023 mg/dL (700-1600); Immunoglobulin IGM 129 mg/dL (40-230); Osmolality Calculated 307 mOsm/kg (285-295); Potassium 4.3 mmol/L (3.5-5.1); Sodium 142 mmol/L (136-145); Total Bilirubin 0.2 mg/dL (0.15-1.2)
[2024-05-11 12:39] LABS: PROTEIN, TOTAL 6.7 g/dL (6.1-8.1)
[2024-05-11 16:44] LABS: ALBUMIN 3.8 g/dL (3.8-4.8); ALPHA 1 GLOBULIN 0.3 g/dL (0.2-0.3); ALPHA 2 GLOBULIN 0.9 g/dL (0.5-0.9); BETA 1 GLOBULIN 0.4 g/dL (0.4-0.6); BETA 2 GLOBULIN 0.4 g/dL (0.2-0.5)
== END 2024-05-20 23:59 | disposition home or self-care (01) ==
PROVIDERS: PCP Nurse Practitioner; Visit Provider Internal Medicine Medical Oncology
DX: Z53.9 Procedure and treatment not carried out, unspecified reason (principal); D50.9 Iron deficiency anemia, unspecified
CPT/HCPCS: 36415; 80053; 82607; 82784; 83036; 83540; 83550; 84155; 84165; 85025; 85651; 99214

== ENCOUNTER 2024-05-21 08:24 | Outpatient (CLI) | payer MEDICARE, MEDICAID, SELFPAY ==
[2024-05-21 08:31] VITALS: BMI 45.3
--- NOTE | 2024-05-21 08:34 | ECG_ITS ---
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 Interpretive Statements NAME OF STUDY: LEXISCAN SESTAMIBI STRESS TEST INDICATION: Chest Pain PROCEDURE: At the baseline, the EKG revealed normal sinus rhythm with right bundle branch block pattern. First-degree AV block. Left axis deviation.. The baseline heart was 83 bpm with a blood pressue of 126/59 mm of Hg Lexiscan was infused over a period of 20 seconds. A total of 0.4 milligrams of Lexiscan was infused. The stress phase was continued for a total of 5 minutes. Heart rate at the end of the stress phase was 93 bpm with a blood pressure 136/65 mm of Hg. The EKG at the peak infusion revealed no significant changes. Sestamibi was injected 20 seconds after the Lexiscan infusion. Heart rate at the end of the recovery phase was 90 bpm with a blood pressure of 162/73 mm of Hg. CONCLUSION: 1. No significant EKG changes with the LexiScan infusion 2. No LexiScan induced chest pain or cardiac arrhythmia 3. Normal blood pressure and heart rate response 4. Sestamibi/sestamibi perfusion scan pending; see separate report. Electronically Signed On 05-24-2024 3:37:00 CDT by Sammy Aquino M.D. [id number]
--- NOTE | 2024-05-21 08:34 | NMCV_ITS ---
NM ariadna perf SPECT r/s* [id number] Jennifer Novak Age: 69 Gender: F : 1955 Exam Date: 05/21/2024 08:34 Ordering Phys: Senait Smith Technologist: PAULETTE Matson Exam Location: [facility] Indications: CP STRESS TEST Please see separate stress test report in [facility] for full findings IMAGE PROTOCOL Rest/Stress 1 Lexiscan Day Radiopharmaceutical Dose (mCi) Administration Site Administered by Rest: Tc-99m 11.0 IV PAULETTE Matson Sestamibi Stress:Tc-99m 33.0 IV PAULETTE Matson Sestamibi Rest: 21-May-2024 60 Discovery 630 Stress: 21-May-2024 30 Discovery 630 0.4mg Lexiscan. Supine position only as patient was unable to lay prone. SPECT RESULTS Technical Quality: Good Raw Data Analysis: Breast attenuation, Soft tissue attenuation Image Corrections: No attenuation or motion correction applied Summed Stress Score: 6 Summed Rest Score: 6 Summed Difference Score: 0 PERFUSION FINDINGS Moderate area of minimal to moderately decreased tracer uptake involving the basal and mid inferolateral, mid anterolateral and apical lateral regions. No significant reversibility was noted in these regions. FUNCTIONAL RESULTS (calculated via Gated SPECT) Stress Image LV EF (%): 61 Stress EDV (mL):89 TID: 0.82 Stress ESV (mL):35 FUNCTIONAL FINDINGS: Segmental wall motion analysis revealing no gross wall motion abnormalities IMPRESSIONS 1. Myocardial perfusion imaging revealing moderate area of persistent decreased tracer uptake involving the inferolateral, anterolateral and apical lateral segments suggesting myocardial scarring versus attenuation artifact. 2. Normal LV ejection fraction of 61%. 3. LV wall motion analysis revealing no gross wall motion abnormalities. 4. Normal LV volume. No similar previous studies are available for comparison Dr Sammy Aquino MD [facility] (Electronically Signed) Final Date: 22 May 2024 00:35 S
[2024-05-21] MEDS: regadenoson 0.4 Mg/5 ml Syringe 0.400000000000000022 MG IVP (11:02)
[2024-05-21 11:31] VITALS: BP 166/84; PULSE 72
== END 2024-05-21 08:25 | disposition home or self-care (01) ==
PROVIDERS: PCP Internal Medicine; Visit Provider Nurse Practitioner Family
DX: I10 Essential (primary) hypertension (principal); R07.9 Chest pain, unspecified; I50.22 Chronic systolic (congestive) heart failure; R94.39 Abnormal result of other cardiovascular function study
CPT/HCPCS: 36415; 78452; 93017; 96374; A9500; J2785

== ENCOUNTER 2024-07-07 18:47 | Emergency (ER) | payer MEDICARE, MEDICAID, SELFPAY ==
[2024-07-07 19:14] VITALS: BP 181/102; PULSE 92; RESP 17; TEMP 37.2; O2SAT 99; BMI 43.7
--- NOTE | 2024-07-07 21:07 | CTR_ITS ---
PROCEDURE INFORMATION: Exam: CT Maxillofacial Without Contrast Exam date and time: 07/07/2024 9:32 PM Age: 69 years old Clinical indication: Other: Erythema; Eye pain; Prior surgery; Surgery date: <1 month; Patient HX: Patient C/O left ocular pain with blurred vision and erythem to left orbit and maxilla. Cataract surgery two weeks ago with revision one week ago. ; Additional info: Left eye pain with eom, blurred vision, periorbital erythema TECHNIQUE: Imaging protocol: Computed tomography of the face without contrast. Radiation optimization: All CT scans at this facility use at least one of these dose optimization techniques: automated exposure control; mA and/or kV adjustment per patient size (includes targeted exams where dose is matched to clinical indication); or iterative reconstruction. COMPARISON: CT facial bones wo con* [id number] 12/13/2021 2:51 PM RADIATION DOSE METRICS: Total DLP (mGy-cm): 638.74 FINDINGS: Orbital cavities: Orbits and globes are unremarkable. Paranasal sinuses: A few areas of mild sinus mucosal thickening. Vasculature: Advanced diffuse vascular calcification noted. Bones: No acute fracture. Soft tissues: There is left preseptal periorbital edema and swelling. No abscess is noted. CT/CT facial bones wo con* [id number] IMPRESSION: Mild left periorbital cellulitis or swelling with no abscess or postseptal involvement identified.
--- NOTE | 2024-07-07 21:28 | W.ED.EYEPROB ---
Documented by User: CHARI Noguera 07/08/24 00:23 HPI - Eye Problem General: Chief complaint: Eye Problems Stated complaint: left eye surgury, now eye infection looking Time Seen by Provider: 07/07/24 20:14 Source: patient Mode of arrival: ambulatory Limitations: no limitations History of Present Illness: Patient is a 69-year-old female presenting to the emergency department complaining of left eye pain and redness for the past 2 weeks. The symptoms have been evolving since the cataract surgery, stating she only had 1 day of being asymptomatic when she subsequently developed the pain and redness. In addition she has had continual blurred vision, and comments that she has had multiple corneal abrasions, though no trauma. She reports that she subsequently had a hyphema operated on as well, and has had to have her right eye operated on. Patient believes that she may have had an allergic reaction to tape from a patch but over her eye, as she is severely allergic to latex. Overall, she states that the redness to the eye has migrated from her cheek up towards her periorbital region, and she is now reporting pain with extraocular movements, specifically with lateral gazing. She denies any fever, headache, or other symptoms at this time. Patient had procedure done with Dr. Mayorga, ticketing clerk, and patient reports that she sent a picture to the office prior to coming to the ED. She is currently on Doxy and ciprofloxacin eyedrops, but states she has not been taking these. MD chief complaint: eye pain and eye redness Onset (ago): week(s) (2) Onset description: gradual Duration: constant and progressively worsening Location: left eye Severity: severe Context: recent eye procedure Associated symptoms: Denies fever(s), headache(s), nausea, neck pain or vomiting Related Data Home Medications Medication Instructions Recorded Confirmed cholecalciferol (vitamin D3) 125 125 mcg PO DAILY 05/14/21 04/26/24 mcg (5,000 unit) tablet (Vitamin D3) acetaminophen 325 mg tablet 325 - 650 mg PO Q6H PRN Pain 12/13/21 04/26/24 cyanocobalamin (vitamin B-12) 50 50 mcg PO DAILY ##0 04/12/22 04/26/24 mcg tablet (Vitamin B-12) oxycodone 5 mg tablet 2.5 - 5 mg PO Q8H PRN Pain 09/08/23 04/26/24 metolazone 2.5 mg tablet 2.5 mg PO DAILY 03/30/24 04/26/24 potassium chloride 20 mEq oral 20 meq PO DAILY 03/30/24 04/26/24 packet insulin degludec 200 unit/mL (3 60 unit SUBCUT DAILY 04/26/24 mL) subcutaneous pen (Tresiba FlexTouch U-200 insulin) slippery elm bark 400 mg capsule 1,200 mg PO 04/26/24 04/26/24 Previous Rx's Medication Instructions Recorded blood-glucose meter (Varonis Systemsuch #1 ea 09/29/22 Ultra2 Meter kit) diabetic shoes with inserts #1 ea 02/25/23 lancets 33 gauge (Bernal FilmsTouch Delica #100 ea 05/13/23 Lancets) lancing device with lancets kit #1 ea 05/13/23 ([employer] Plus Lancing Device kit) albuterol sulfate 90 mcg/actuation 2 puff inhalation Q4H PRN 09/15/23 aerosol inhaler (ProAir HFA) shortness of breath or wheezing #8.5 grams Bariatric emy lift #1 ea 11/04/23 blood sugar diagnostic (OneTouch #100 ea 11/21/23 Ultra Test strips) pen needle, diabetic 31 gauge x #200 ea 11/21/2304/05 (TechLITE Pen Needle) nitroglycerin 0.4 mg sublingual 0.4 mg sublingual Q5M PRN Chest 11/25/23 tablet (Nitrostat) Pain #50 tabs Alternating pressure mattress and #1 ea 02/08/24 pressure pump flash glucose scanning reader #1 ea 02/08/24 (FreeStyle Ayesha 2 [place]) flash glucose sensor (FreeStyle #2 ea 02/08/24 Ayesha 2 Sensor kit) insulin lispro 100 unit/mL See Rx Instructions SUBCUT 02/28/24 subcutaneous pen (Humalog KwikPen .COMPLEX #15 mL (U-100) Insulin) ondansetron 4 mg disintegrating 4 mg PO Q6H PRN nausea and 03/18/24 tablet vomiting #14 tabs leflunomide 10 mg tablet 10 mg PO DAILY #30 tabs 04/18/24 amlodipine 10 mg tablet 10 mg PO DAILY #60 tabs 04/25/24 fluoxetine 20 mg capsule 20 mg PO BID #60 caps 04/25/24 isosorbide mononitrate 120 mg 120 mg PO QDAY #30 tabs 04/25/24 tablet,extended release 24 hr losartan 100 mg tablet (Cozaar) 100 mg PO DAILY #30 tabs 04/25/24 magnesium oxide 400 mg PO DAILY #30 tabs 04/25/24 pantoprazole 40 mg tablet,delayed 40 mg PO DAILY #30 tabs 04/25/24 release polyethylene glycol 3350 17 17 g PO DAILY #510 grams 04/25/24 gram/dose oral powder (Miralax) sennosides 8.6 mg-docusate sodium 1 tab-cap PO BID #60 tabs 04/25/24 50 mg tablet (Senokot-S) torsemide 20 mg tablet 20 mg PO QAM #30 tabs 04/25/24 zonisamide 25 mg capsule (Zonegran) 25 mg PO Q12H #60 caps 04/25/24 amoxicillin 875 mg-potassium 1 tab PO BID 10 days #20 tabs 07/07/24 clavulanate 125 mg tablet Allergies Allergy/AdvReac Type Severity Reaction Status Date / Time acetaminophen [From Gilchrist] Allergy Unknown Verified 07/07/24 19:18 bacitracin Allergy ADR-Nausea Verified 07/07/24 19:18 codeine Allergy ADR-Nausea Verified 07/07/24 19:18 hydrocodone [From Gilchrist] Allergy Unknown Verified 07/07/24 19:18 Latex, Natural Rubber Allergy Unknown Verified 07/07/24 19:18 morphine Allergy ADR-Itching Verified 07/07/24 19:18 neomycin Allergy ALGY-Rash Verified 07/07/24 19:18 [From Neosporin ([id number])] polymyxin B Allergy ALGY-Rash Verified 07/07/24 19:18 [From Neosporin ([id number])] Sulfa (Sulfonamide Allergy ADR-Nausea Verified 07/07/24 19:18 Antibiotics) sulfamethoxazole Allergy Unknown Verified 07/07/24 19:18 [From Bactrim] trimethoprim [From Bactrim] Allergy Unknown Verified 07/07/24 19:18 spironolactone AdvReac Severe temporary Uncoded 04/26/24 14:44 blindness Review of Systems General: Reports: 10 or more systems reviewed and unremarkable except in HPI and below Const: Denies: fever(s), chills or fatigue Eyes: Reports: change in vision, blurry vision, eye discomfort and eye redness ENMT: Denies: throat pain, ear or mastoid pain or nasal discharge Card: Denies: chest pain, palpitations, swelling of feet/ankles or lightheadedness Resp: Denies: dyspnea, productive cough or wheezing GI: Denies: abdominal pain, nausea, vomiting, diarrhea or constipation : Denies: flank pain, difficulty voiding, dysuria or urinary frequency Musc: Denies: neck pain, back pain or joint pain Skin/Breast: Denies: rash Neuro: Denies: headache(s), numbness in extremities or weakness in extremities PFSH ED PFSH: Medical History Chronic diastolic heart failure Gastric ulcer H. pylori ruled out at [facility] Situational anxiety Benign hypertension Type 2 diabetes mellitus with diabetic chronic kidney disease Hospital-acquired pneumonia Acute exacerbation of CHF (congestive heart failure) Acute on chronic renal failure Diabetic gastroparesis Hypoxia Anemia Positive GIFTY (antinuclear antibody) Frequent falls Muscle spasm High risk medication use Seronegative rheumatoid arthritis of both hands Diabetic foot Hip pain, left Atypical chest pain IgM monoclonal gammopathy of uncertain significance Intermittent atrial fibrillation Chest pain Edema CKD (chronic kidney disease) stage 3, GFR 30-59 ml/min Urinary disorder Anxiety Pneumonitis Left lumbar radiculopathy Back pain Lymph edema Fracture of distal end of fibula Syncope and collapse Essential tremor Mobility impaired IBS (irritable bowel syndrome) Inflammatory arthritis Chronic back pain Chronic major depressive disorder Peripheral neuropathy Polyarthralgia Edema, peripheral Noncompliance with diabetes treatment Not consistent with diet Near syncope Monoclonal gammopathy Major depression Diabetic neuropathy associated with type 2 diabetes mellitus Severe obstructive sleep apnea Mild cognitive impairment with memory loss Dietary noncompliance Atrial flutter Coronary artery fistula Chronic obstructive pulmonary disease, unspecified Obesity CKD (chronic kidney disease) Fibromyalgia Diverticulosis Environmental and seasonal allergies Vitamin D deficiency Surgical History History of left heart catheterization (2017) No significant obstructive coronary disease Hx of esophagogastroduodenoscopy Hx of colonoscopy History of tonsillectomy History of section 4 times History of cholecystectomy (1993) History of hysterectomy (1997) with BSO Family History Brother Bleeding disorder CAD (coronary artery disease) Father CAD (coronary artery disease) Chronic kidney disease (CKD) Mother CAD (coronary artery disease) Cancer Diabetes Family/Other Cancer Other Congestive heart failure (CHF) Heart disease Hypertension Denies family history of Clotting disorder Dementia Suicide Anesthesia complication Lung disease Stroke Social History Smoking and tobacco/nicotine status: former use of tobacco/nicotine Quit status (tobacco/nicotine): has quit using Year quit tobacco: 1990 Former quit date comment: smoked 20+ years Second hand smoke exposure: No Alcohol intake: never Substance/Drug Use: never Adopted: No Caregiver/support person: Yes Lives independently: No Household members: children and other Details: Son, sometimes grandson Housing: House Marital status: Single service: No Current occupational status: disabled Do you think of yourself as: Straight/Heterosexual Current gender identity: Female Physical Exam Const: COMMON NORMALS: no acute distress and no limitations GENERAL APPEARANCE: cooperative, comfortable and well developed ORIENTATION/CONSCIOUSNESS: Yes awake HENMT: COMMON NORMALS: normocephalic, atraumatic and hearing grossly normal bilaterally HEAD & SCALP: normocephalic and atraumatic Eye: COMMON NORMALS: Equal, round and reactive pupils present VISUAL ACUITY: Yes other (Endorsing blurred vision in the left eye) ALIGNMENT: Yes alignment normal PERIORBITAL: periorbital findings abnormal positive left periorbital swelling and periorbital erythema CONJUNCTIVA: Yes conjunctival abnormal positive left conjunctival injection diffuse PUPIL: Yes Equal, round and reactive pupils present OTHER: She endorses pain with extraocular movements, specifically on left lateral gaze. Cornea does appear hazy Neck/C-Spine: COMMON NORMALS: full ROM, supple and no JVD Resp: COMMON NORMALS: normal respiratory effort, No retractions, No use of accessory muscles and clear to auscultation bilaterally AUSCULTATION: clear to auscultation bilaterally Cardio: COMMON NORMALS: no JVD, regular rate, regular rhythm, No clicks present (Cardio), No murmurs present (Cardio) and No rub (Cardio) RATE: regular rate RHYTHM: regular rhythm Extremity: COMMON NORMALS: normal to inspection, full ROM and capillary refill normal Skin: COMMON NORMALS: no rashes or lesions noted GENERAL SKIN EXAM: no rashes or lesions noted Course Vital Signs: Vital signs: Vital Signs Temperature 98.9 F 07/07/24 19:14 Pulse Rate 77 07/07/24 23:43 Respiratory Rate 17 07/07/24 19:14 Blood Pressure 170/74 07/07/24 23:43 Pulse Oximetry 99 07/07/24 23:43 Oxygen Delivery Me thod Room Air 07/07/24 19:14 MDM - Eye Problem Medical Decision Making Patient presented for evaluation of left eye redness and swelling that has been evolving over the past 2 weeks. She had a cataract surgery and subsequent hyphema drainage, however states that she has had recurrent corneal abrasions despite there being no trauma. She has been seen multiple times in the office with ophthalmology due to these reports, was started on doxycycline as well as ciprofloxacin eyedrops. She is set to have surgery on her right eye next Tuesday, and is worried that her left eye is not improving. On exam she did endorse some extraocular movement pain, as well as blurred vision that though chronic, seems to be worsening. She did have some periorbital findings of redness and swelling, and I did order a CT to rule out any orbital cellulitis/abscess. Her glucose was checked prior to receiving Decadron, which was 126. She did receive Decadron through IV, and upon further investigation found her kidney function not to be supportive of contrast, so the CT was done without contrast and showed the periorbital findings, however no abscess or postseptal involvement. With this ruled out, I did speak with Dr. Mayorga, ticketing clerk, who agrees that we can switch the patient to a different antibiotic and she can continue to follow-up with them as planned. Upon recheck of patient, she states that she does feel better after receiving the steroid, and is ready to go home at this time. Return precautions are given. Lab Data Radiology Impressions Face CT 07/07/24 21:07 IMPRESSION: Mild left periorbital cellulitis or swelling with no abscess or postseptal involvement identified. Laboratory Results POC Glucose 126 mg/dL (70-110) H 07/07/24 21:28 All radiology interpretation(s) finalized by discharge Discharge Plan Discharge Patient Disposition: Home Clinical Impression: Cellulitis, periorbital Qualifiers: Laterality: left Qualified Code(s): L03.213 - Periorbital cellulitis History of cataract surgery Qualifiers: Laterality: left Qualified Code(s): Z98.42 - Cataract extraction status, left eye Condition: Stable Prescriptions: New amoxicillin-pot clavulanate 875-125 mg tablet 1 tab PO BID 10 Days Qty: 20 0RF No Action (DME) lancing device with lancets [OneTouch Delica Plus Lanc Dev] Kit See Rx Instructions .Route Qty: 1 0RF Rx Instructions: As directed (DME) lancets [OneTouch Delica Lancets] 33 gauge misc See Rx Instructions .Route Qty: 100 5RF Rx Instructions: three times day (DME) FreeStyle Ayesha 2 Sensor Kit See Rx Instructions .ROUTE .MEDSUPPLY Qty: 2 11RF Rx Instructions: change every 14 days (DME) FreeStyle Ayesha 2 [place] Misc See Rx Instructions .ROUTE .MEDSUPPLY Qty: 1 0RF Rx Instructions: As directed (DME) Alternating pressure mattress and pressure pump See Rx Instructions .Route .MEDSUPPLY Qty: 1 0RF Rx Instructions: As directed amlodipine 10 mg tablet 10 mg PO DAILY Qty: 60 2RF fluoxetine 20 mg capsule 20 mg PO BID Qty: 60 2RF isosorbide mononitrate 120 mg tablet extended release 24 hr 120 mg PO QDAY Qty: 30 2RF losartan [Cozaar] 100 mg tablet 100 mg PO DAILY Qty: 30 2RF magnesium oxide 400 mg magnesium tablet 400 mg PO DAILY Qty: 30 2RF pantoprazole 40 mg tablet,delayed release (DR/EC) 40 mg PO DAILY Qty: 30 2RF polyethylene glycol 3350 [Miralax] 17 gram/dose powder 17 g PO DAILY Qty: 510 2RF sennosides-docusate sodium [Senokot-S] 8.6-50 mg tablet 1 tab-cap PO BID Qty: 60 2RF torsemide 20 mg tablet 20 mg PO QAM Qty: 30 2RF zonisamide [Zonegran] 25 mg capsule 25 mg PO Q12H Qty: 60 2RF slippery elm bark 400 mg capsule 1,200 mg PO insulin degludec [Tresiba FlexTouch U-200] 200 unit/mL (3 mL) insulin pen 60 unit SUBCUT DAILY (DME) diabetic shoes with inserts See Rx Instructions .Route .MEDSUPPLY Qty: 1 0RF Rx Instructions: As directed metolazone 2.5 mg tablet 2.5 mg PO DAILY potassium chloride 20 mEq packet 20 meq PO DAILY (DME) blood-glucose meter [OneTouch Ultra2 Meter] Kit See Rx Instructions .Route Qty: 1 0RF Rx Instructions: As directed (DME) Bariatric emy lift See Rx Instructions .Route .MEDSUPPLY Qty: 1 0RF Rx Instructions: BMI 57.5% weight 325# (DME) OneTouch Ultra Test Strip See Rx Instructions .Route Qty: 100 5RF Rx Instructions: 1 strip three time day (DME) pen needle, diabetic [TechLITE Pen Needle] 31 gauge x 5/16 needle See Rx Instructions .ROUTE .MEDSUPPLY Qty: 200 5RF Rx Instructions: use 4 times day nitroglycerin [Nitrostat] 0.4 mg tablet, sublingual 0.4 mg SUBLINGUAL Q5M PRN (Reason: Chest Pain) Qty: 50 3RF Rx Instructions: do not exceed 3 doses per episode insulin lispro [Humalog KwikPen Insulin] 100 unit/mL insulin pen See Rx Instructions SUBCUT .COMPLEX Qty: 15 2RF Rx Instructions: 6-27U SUBCUT three times daily subcutaneously; per sliding scale leflunomide 10 mg tablet 10 mg PO DAILY Qty: 30 5RF cholecalciferol (vitamin D3) [Vitamin D3] 125 mcg (5,000 unit) Tablet 125 mcg PO DAILY acetaminophen 325 mg tablet 325 - 650 mg PO Q6H PRN (Reason: Pain) Vitamin B-12 50 mcg Tablet 50 mcg PO DAILY Qty: 0 oxycodone 5 mg tablet 2.5 - 5 mg PO Q8H PRN (Reason: Pain) albuterol sulfate [ProAir HFA] 90 mcg/actuation HFA aerosol inhaler 2 puff INHALATION Q4H PRN (Reason: shortness of breath or wheezing) Qty: 8.5 3RF ondansetron 4 mg tablet,disintegrating 4 mg PO Q6H PRN (Reason: nausea and vomiting) Qty: 14 0RF Discharge Orders: Discharge ED (Routine); Ordered 07/07/24 Ordered By: Ashok Cook Referrals: Denny Padgett MD [Primary Care Provider] - Discharge Diet: Usual diet Discharge Activity: Increase activity as tolerated Patient Instructions: Periorbital Cellulitis (ED) Activity Restrictions/Additional Instructions: Take Augmentin as prescribed. Please stop doxycycline. Follow-up with ticketing clerk as already planned. Return with any new or worsening symptoms. Coding Level of Care Code ED Cardiac Sonographer for Chg Fwd Documented by User: Carlo Gilbert DO 07/08/24 02:00 HPI - Eye Problem General: Chief complaint: Eye Problems Stated complaint: left eye surgury, now eye infection looking Time Seen by Provider: 07/07/24 20:14 Related Data Home Medications Medication Instructions Recorded Confirmed cholecalciferol (vitamin D3) 125 125 mcg PO DAILY 05/14/21 04/26/24 mcg (5,000 unit) tablet (Vitamin D3) acetaminophen 325 mg tablet 325 - 650 mg PO Q6H PRN Pain 12/13/21 04/26/24 cyanocobalamin (vitamin B-12) 50 50 mcg PO DAILY ##0 04/12/22 04/26/24 mcg tablet (Vitamin B-12) oxycodone 5 mg tablet 2.5 - 5 mg PO Q8H PRN Pain 09/08/23 04/26/24 metolazone 2.5 mg tablet 2.5 mg PO DAILY 03/30/24 04/26/24 potassium chloride 20 mEq oral 20 meq PO DAILY 03/30/24 04/26/24 packet insulin degludec 200 unit/mL (3 60 unit SUBCUT DAILY 04/26/24 mL) subcutaneous pen (Tresiba FlexTouch U-200 insulin) slippery elm bark 400 mg capsule 1,200 mg PO 04/26/24 04/26/24 Previous Rx's Medication Instructions Recorded blood-glucose meter (Bernal FilmsTouch #1 ea 09/29/22 Ultra2 Meter kit) diabetic shoes with inserts #1 ea 02/25/23 lancets 33 gauge (OneTouch Delica #100 ea 05/13/23 Lancets) lancing device with lancets kit #1 ea 05/13/23 (OneTouch Delica Plus Lancing Device kit) albuterol sulfate 90 mcg/actuation 2 puff inhalation Q4H PRN 09/15/23 aerosol inhaler (ProAir HFA) shortness of breath or wheezing #8.5 grams Bariatric emy lift #1 ea 11/04/23 blood sugar diagnostic (OneTouch #100 ea 11/21/23 Ultra Test strips) pen needle, diabetic 31 gauge x #200 ea 11/21/23 5/16 (TechLITE Pen Needle) nitroglycerin 0.4 mg sublingual 0.4 mg sublingual Q5M PRN Chest 11/25/23 tablet (Nitrostat) Pain #50 tabs Alternating pressure mattress and #1 ea 02/08/24 pressure pump flash glucose scanning reader #1 ea 02/08/24 (FreeStyle Ayesha 2 [place]) flash glucose sensor (FreeStyle #2 ea 02/08/24 Ayesha 2 Sensor kit) insulin lispro 100 unit/mL See Rx Instructions SUBCUT 02/28/24 subcutaneous pen (Humalog KwikPen .COMPLEX #15 mL (U-100) Insulin) ondansetron 4 mg disintegrating 4 mg PO Q6H PRN nausea and 03/18/24 tablet vomiting #14 tabs leflunomide 10 mg tablet 10 mg PO DAILY #30 tabs 04/18/24 amlodipine 10 mg tablet 10 mg PO DAILY #60 tabs 04/25/24 fluoxetine 20 mg capsule 20 mg PO BID #60 caps 04/25/24 isosorbide mononitrate 120 mg 120 mg PO QDAY #30 tabs 04/25/24 tablet,extended release 24 hr losartan 100 mg tablet (Cozaar) 100 mg PO DAILY #30 tabs 04/25/24 magnesium oxide 400 mg PO DAILY #30 tabs 04/25/24 pantoprazole 40 mg tablet,delayed 40 mg PO DAILY #30 tabs 04/25/24 release polyethylene glycol 3350 17 17 g PO DAILY #510 grams 04/25/24 gram/dose oral powder (Miralax) sennosides 8.6 mg-docusate sodium 1 tab-cap PO BID #60 tabs 04/25/24 50 mg tablet (Senokot-S) torsemide 20 mg tablet 20 mg PO QAM #30 tabs 04/25/24 zonisamide 25 mg capsule (Zonegran) 25 mg PO Q12H #60 caps 04/25/24 amoxicillin 875 mg-potassium 1 tab PO BID 10 days #20 tabs 07/07/24 clavulanate 125 mg tablet Allergies Allergy/AdvReac Type Severity Reaction Status Date / Time acetaminophen [From Gilchrist] Allergy Unknown Verified 07/07/24 19:18 bacitracin Allergy ADR-Nausea Verified 07/07/24 19:18 codeine Allergy ADR-Nausea Verified 07/07/24 19:18 hydrocodone [From Gilchrist] Allergy Unknown Verified 07/07/24 19:18 Latex, Natural Rubber Allergy Unknown Verified 07/07/24 19:18 morphine Allergy ADR-Itching Verified 07/07/24 19:18 neomycin Allergy ALGY-Rash Verified 07/07/24 19:18 [From Neosporin ([id number])] polymyxin B Allergy ALGY-Rash Verified 07/07/24 19:18 [From Neosporin ([id number])] Sulfa (Sulfonamide Allergy ADR-Nausea Verified 07/07/24 19:18 Antibiotics) sulfamethoxazole Allergy Unknown Verified 07/07/24 19:18 [From Bactrim] trimethoprim [From Bactrim] Allergy Unknown Verified 07/07/24 19:18 spironolactone AdvReac Severe temporary Uncoded 04/26/24 14:44 blindness PFSH ED PFSH: Medical History Chronic diastolic heart failure Gastric ulcer H. pylori ruled out at [facility] Situational anxiety Benign hypertension Type 2 diabetes mellitus with diabetic chronic kidney disease Hospital-acquired pneumonia Acute exacerbation of CHF (congestive heart failure) Acute on chronic renal failure Diabetic gastroparesis Hypoxia Anemia Positive GIFTY (antinuclear antibody) Frequent falls Muscle spasm High risk medication use Seronegative rheumatoid arthritis of both hands Diabetic foot Hip pain, left Atypical chest pain IgM monoclonal gammopathy of uncertain significance Intermittent atrial fibrillation Chest pain Edema CKD (chronic kidney disease) stage 3, GFR 30-59 ml/min Urinary disorder Anxiety Pneumonitis Left lumbar radiculopathy Back pain Lymph edema Fracture of distal end of fibula Syncope and collapse Essential tremor Mobility impaired IBS (irritable bowel syndrome) Inflammatory arthritis Chronic back pain Chronic major depressive disorder Peripheral neuropathy Polyarthralgia Edema, peripheral Noncompliance with diabetes treatment Not consistent with diet Near syncope Monoclonal gammopathy Major depression Diabetic neuropathy associated with type 2 diabetes mellitus Severe obstructive sleep apnea Mild cognitive impairment with memory loss Dietary noncompliance Atrial flutter Coronary artery fistula Chronic obstructive pulmonary disease, unspecified Obesity CKD (chronic kidney disease) Fibromyalgia Diverticulosis Environmental and seasonal allergies Vitamin D deficiency Surgical History History of left heart catheterization (2017) No significant obstructive coronary disease Hx of esophagogastroduodenoscopy Hx of colonoscopy History of tonsillectomy History of section 4 times History of cholecystectomy (1993) History of hysterectomy (1997) with BSO Family History Brother Bleeding disorder CAD (coronary artery disease) Father CAD (coronary artery disease) Chronic kidney disease (CKD) Mother CAD (coronary artery disease) Cancer Diabetes Family/Other Cancer Other Congestive heart failure (CHF) Heart disease Hypertension Denies family history of Clotting disorder Dementia Suicide Anesthesia complication Lung disease Stroke Social History Smoking and tobacco/nicotine status: former use of tobacco/nicotine Quit status (tobacco/nicotine): has quit using Year quit tobacco: 1990 Former quit date comment: smoked 20+ years Second hand smoke exposure: No Alcohol intake: never Substance/Drug Use: never Adopted: No Caregiver/support person: Yes Lives independently: No Household members: children and other Details: Son, sometimes grandson Housing: House Marital status: Single service: No Current occupational status: disabled Do you think of yourself as: Straight/Heterosexual Current gender identity: Female Course Vital Signs: Vital signs: Vital Signs Temperature 98.9 F 07/07/24 19:14 Pulse Rate 77 07/07/24 23:43 Respiratory Rate 17 07/07/24 19:14 Blood Pressure 170/74 07/07/24 23:43 Pulse Oximetry 99 07/07/24 23:43 Oxygen Delivery Me thod Room Air 07/07/24 19:14 MDM - Eye Problem Medical Decision Making Patient presented for evaluation of left eye redness and swelling that has been evolving over the past 2 weeks. She had a cataract surgery and subsequent hyphema drainage, however states that she has had recurrent corneal abrasions despite there being no trauma. She has been seen multiple times in the office with ophthalmology due to these reports, was started on doxycycline as well as ciprofloxacin eyedrops. She is set to have surgery on her right eye next Tuesday, and is worried that her left eye is not improving. On exam she did endorse some extraocular movement pain, as well as blurred vision that though chronic, seems to be worsening. She did have some periorbital findings of redness and swelling, and I did order a CT to rule out any orbital cellulitis/abscess. Her glucose was checked prior to receiving Decadron, which was 126. She did receive Decadron through IV, and upon further investigation found her kidney function not to be supportive of contrast, so the CT was done without contrast and showed the periorbital findings, however no abscess or postseptal involvement. With this ruled out, I did speak with Dr. Mayorga, ticketing clerk, who agrees that we can switch the patient to a different antibiotic and she can continue to follow-up with them as planned. Upon recheck of patient, she states that she does feel better after receiving the steroid, and is ready to go home at this time. Return precautions are given. This patient was originally seen by Mr. Joyce PA-C.? I agree with his history, evaluation, and treatment. Lab Data Radiology Impressions Face CT 07/07/24 21:07 IMPRESSION: Mild left periorbital cellulitis or swelling with no abscess or postseptal involvement identified. Laboratory Results POC Glucose 126 mg/dL (70-110) H 07/07/24 21:28 Discharge Plan Discharge Patient Disposition: Home Clinical Impression: Cellulitis, periorbital Qualifiers: Laterality: left Qualified Code(s): L03.213 - Periorbital cellulitis History of cataract surgery Qualifiers: Laterality: left Qualified Code(s): Z98.42 - Cataract extraction status, left eye Condition: Stable Prescriptions: New amoxicillin-pot clavulanate 875-125 mg tablet 1 tab PO BID 10 Days Qty: 20 0RF No Action (DME) lancing device with lancets [OneTouch Delica Plus Lanc Dev] Kit See Rx Instructions .Route Qty: 1 0RF Rx Instructions: As directed (DME) lancets [OneTouch Delica Lancets] 33 gauge misc See Rx Instructions .Route Qty: 100 5RF Rx Instructions: three times day (DME) FreeStyle Ayesha 2 Sensor Kit See Rx Instructions .ROUTE .MEDSUPPLY Qty: 2 11RF Rx Instructions: change every 14 days (DME) FreeStyle Ayesha 2 [place] Misc See Rx Instructions .ROUTE .MEDSUPPLY Qty: 1 0RF Rx Instructions: As directed (DME) Alternating pressure mattress and pressure pump See Rx Instructions .Route .MEDSUPPLY Qty: 1 0RF Rx Instructions: As directed amlodipine 10 mg tablet 10 mg PO DAILY Qty: 60 2RF fluoxetine 20 mg capsule 20 mg PO BID Qty: 60 2RF isosorbide mononitrate 120 mg tablet extended release 24 hr 120 mg PO QDAY Qty: 30 2RF losartan [Cozaar] 100 mg tablet 100 mg PO DAILY Qty: 30 2RF magnesium oxide 400 mg magnesium tablet 400 mg PO DAILY Qty: 30 2RF pantoprazole 40 mg tablet,delayed release (DR/EC) 40 mg PO DAILY Qty: 30 2RF polyethylene glycol 3350 [Miralax] 17 gram/dose powder 17 g PO DAILY Qty: 510 2RF sennosides-docusate sodium [Senokot-S] 8.6-50 mg tablet 1 tab-cap PO BID Qty: 60 2RF torsemide 20 mg tablet 20 mg PO QAM Qty: 30 2RF zonisamide [Zonegran] 25 mg capsule 25 mg PO Q12H Qty: 60 2RF slippery elm bark 400 mg capsule 1,200 mg PO insulin degludec [Tresiba FlexTouch U-200] 200 unit/mL (3 mL) insulin pen 60 unit SUBCUT DAILY (DME) diabetic shoes with inserts See Rx Instructions .Route .MEDSUPPLY Qty: 1 0RF Rx Instructions: As directed metolazone 2.5 mg tablet 2.5 mg PO DAILY potassium chloride 20 mEq packet 20 meq PO DAILY (DME) blood-glucose meter [OneTouch Ultra2 Meter] Kit See Rx Instructions .Route Qty: 1 0RF Rx Instructions: As directed (DME) Bariatric emy lift See Rx Instructions .Route .MEDSUPPLY Qty: 1 0RF Rx Instructions: BMI 57.5% weight 325# (DME) OneTouch Ultra Test Strip See Rx Instructions .Route Qty: 100 5RF Rx Instructions: 1 strip three time day (DME) pen needle, diabetic [TechLITE Pen Needle] 31 gauge x 5/16 needle See Rx Instructions .ROUTE .MEDSUPPLY Qty: 200 5RF Rx Instructions: use 4 times day nitroglycerin [Nitrostat] 0.4 mg tablet, sublingual 0.4 mg SUBLINGUAL Q5M PRN (Reason: Chest Pain) Qty: 50 3RF Rx Instructions: do not exceed 3 doses per episode insulin lispro [Humalog KwikPen Insulin] 100 unit/mL insulin pen See Rx Instructions SUBCUT .COMPLEX Qty: 15 2RF Rx Instructions: 6-27U SUBCUT three times daily subcutaneously; per sliding scale leflunomide 10 mg tablet 10 mg PO DAILY Qty: 30 5RF cholecalciferol (vitamin D3) [Vitamin D3] 125 mcg (5,000 unit) Tablet 125 mcg PO DAILY acetaminophen 325 mg tablet 325 - 650 mg PO Q6H PRN (Reason: Pain) Vitamin B-12 50 mcg Tablet 50 mcg PO DAILY Qty: 0 oxycodone 5 mg tablet 2.5 - 5 mg PO Q8H PRN (Reason: Pain) albuterol sulfate [ProAir HFA] 90 mcg/actuation HFA aerosol inhaler 2 puff INHALATION Q4H PRN (Reason: shortness of breath or wheezing) Qty: 8.5 3RF ondansetron 4 mg tablet,disintegrating 4 mg PO Q6H PRN (Reason: nausea and vomiting) Qty: 14 0RF Discharge Orders: Discharge ED (Routine); Ordered 07/07/24 Ordered By: Ashok Cook Referrals: Denny Padgett MD [Primary Care Provider] - Discharge Diet: Usual diet Discharge Activity: Increase activity as tolerated Patient Instructions: Periorbital Cellulitis (ED) Activity Restrictions/Additional Instructions: Take Augmentin as prescribed. Please stop doxycycline. Follow-up with ticketing clerk as already planned. Return with any new or worsening symptoms. Coding Level of Care Code ED Cardiac Sonographer for Anel Mcknight
[2024-07-07 21:31] LABS: Glucose Point of Care 126 mg/dL (70-110)
--- NOTE | 2024-07-07 21:50 | PC.NURSE ---
Medication administration delayed due to waiting for blood sugar and patient having to go to tests.
[2024-07-07] MEDS: dexamethasone 10 mg/mL INJ IM (21:52)
[2024-07-07 22:17] VITALS: BP 154/69; PULSE 80; O2SAT 100
[2024-07-07 23:43] VITALS: BP 170/74; PULSE 77; O2SAT 99
== END 2024-07-07 23:42 | disposition home or self-care (01) ==
PROVIDERS: Emergency Provider Physician Assistant; PCP Internal Medicine
DX: L03.213 Periorbital cellulitis (principal); Z98.42 Cataract extraction status, left eye; Z79.4 Long term (current) use of insulin; Z87.891 Personal history of nicotine dependence; E11.22 Type 2 diabetes mellitus with diabetic chronic kidney disease; I13.0 Hypertensive heart and chronic kidney disease with heart failure and stage 1 through stage 4 chronic kidney disease, or unspecified chronic kidney disease; N18.30 Chronic kidney disease, stage 3 unspecified; I50.9 Heart failure, unspecified; J44.9 Chronic obstructive pulmonary disease, unspecified
CPT/HCPCS: 36416; 70486; 82962; 96372; 99284; J1100

== ENCOUNTER → 2024-07-09 10:02 | Outpatient (BNVA) | payer MEDICARE, MEDICAID, SELFPAY | PROVIDERS: PCP Internal Medicine; Visit Provider Internal Medicine Cardiovascular Disease | DX: I13.0 Hypertensive heart and chronic kidney disease with heart failure and stage 1 through stage 4 chronic kidney disease, or unspecified chronic kidney disease (principal); I50.32 Chronic diastolic (congestive) heart failure; I25.3 Aneurysm of heart; E11.22 Type 2 diabetes mellitus with diabetic chronic kidney disease; N18.4 Chronic kidney disease, stage 4 (severe); Z79.4 Long term (current) use of insulin; Z87.891 Personal history of nicotine dependence | CPT/HCPCS: 99214 ==

== ENCOUNTER → 2024-07-16 08:50 | Outpatient (BNVA) | payer MEDICARE, MEDICAID, SELFPAY | PROVIDERS: PCP Internal Medicine; Visit Provider Internal Medicine Rheumatology | DX: M79.7 Fibromyalgia (principal); K58.9 Irritable bowel syndrome, unspecified; Z79.899 Other long term (current) drug therapy; M06.041 Rheumatoid arthritis without rheumatoid factor, right hand; M06.042 Rheumatoid arthritis without rheumatoid factor, left hand; R76.8 Other specified abnormal immunological findings in serum | CPT/HCPCS: 99214 ==

== ENCOUNTER → 2024-08-02 12:33 | Outpatient (BNVA) | payer MEDICARE, MEDICAID, SELFPAY | PROVIDERS: PCP Nurse Practitioner; Visit Provider Podiatrist Foot & Ankle Surgery | DX: L60.3 Nail dystrophy (principal); E11.21 Type 2 diabetes mellitus with diabetic nephropathy; I73.9 Peripheral vascular disease, unspecified; E11.22 Type 2 diabetes mellitus with diabetic chronic kidney disease; N18.4 Chronic kidney disease, stage 4 (severe); Z79.4 Long term (current) use of insulin | CPT/HCPCS: 11721; 99203 ==

== ENCOUNTER 2024-08-18 11:09 | Outpatient (CLI) | payer MEDICARE, MEDICAID, SELFPAY ==
[2024-08-18 11:38] LABS: Basophils # 0.1 10^3/uL (0.0-0.1); Basophils % 1.5 %; Eosinophils # 0.4 10^3/uL (0.0-0.8); Hematocrit 34.1 % (36-47); Lymphocytes # 1.3 10^3/uL (0.8-4.8); Lymphocytes % 21.3 %; Mean Corpuscular HGB Conc 31.7 g/dL (30-55); Mean Corpuscular Hemoglobin 29.9 pg (27-33); Mean Corpuscular Volume 94.5 fl (85-98); Mean Platelet Volume 10.5 fL (7.4-10.4); Monocytes # 0.5 10^3/uL (0.2-0.9); Monocytes % 8.6 %; Neutrophils # 3.77 10^3/uL (1.8-7.7); Neutrophils % 62.3 %; Nucleated Red Blood Cells % 0 %; Platelet Count 182 10^3/cmm (157-399); Red Blood Count 3.61 10^6/uL (3.85-5.65); Red Cell Distribution Width 12.2 % (12.1-15.1); White Blood Count 6.05 10^3/uL (3.29-11.43)
[2024-08-18 11:58] LABS: Albumin Level 3.5 g/dL (3.5-5.2); Blood Urea Nitrogen 41 mg/dL (8-23); Calcium 9.2 mg/dL (8.5-10.5); Carbon Dioxide 28 mmol/L (22-29); Chloride 98 mmol/L (98-107); Glomerular Filtration Rate 26.4 mL/min (90-130); Glucose 72 mg/dL (65-115); Phosphorus 4.2 mg/dL (2.5-4.5); Sodium 137 mmol/L (136-145)
[2024-08-18 12:02] LABS: Creatinine Urine, Random 50 mg/dL (28-217)
[2024-08-18 12:18] LABS: Calcium 9.3 mg/dL (8.5-10.5)
[2024-08-18 12:25] LABS: Parathyroid Hormone 87.5 pg/mL (15-65)
== END 2024-08-18 11:10 | disposition home or self-care (01) ==
PROVIDERS: PCP Nurse Practitioner; Visit Provider Internal Medicine Nephrology
DX: N18.4 Chronic kidney disease, stage 4 (severe) (principal); N25.81 Secondary hyperparathyroidism of renal origin; R80.9 Proteinuria, unspecified
CPT/HCPCS: 36415; 80069; 82310; 82575; 83970; 85025

== ENCOUNTER → 2024-10-04 12:57 | Outpatient (BNVA) | payer MEDICARE, MEDICAID, SELFPAY | PROVIDERS: PCP Nurse Practitioner; Visit Provider Podiatrist Foot & Ankle Surgery | DX: L60.3 Nail dystrophy (principal); E11.21 Type 2 diabetes mellitus with diabetic nephropathy; I73.9 Peripheral vascular disease, unspecified; E11.22 Type 2 diabetes mellitus with diabetic chronic kidney disease; N18.4 Chronic kidney disease, stage 4 (severe); Z79.4 Long term (current) use of insulin; G62.9 Polyneuropathy, unspecified | CPT/HCPCS: 11721 ==

== ENCOUNTER → 2024-11-01 09:45 | Outpatient (BNVA) | payer MEDICARE, MEDICAID, SELFPAY | PROVIDERS: PCP Nurse Practitioner; Visit Provider Nurse Practitioner Family | DX: L82.1 Other seborrheic keratosis (principal); L72.11 Pilar cyst; D22.5 Melanocytic nevi of trunk; L57.8 Other skin changes due to chronic exposure to nonionizing radiation; L82.0 Inflamed seborrheic keratosis; L57.0 Actinic keratosis | CPT/HCPCS: 17000; 17110; 99203 ==

== ENCOUNTER 2024-12-18 10:23 | Outpatient (CLI) | payer MEDICAID, MEDICARE, SELFPAY ==
[2024-12-18 11:24] LABS: Basophils # 0.1 10^3/uL (0.0-0.1); Eosinophils # 0.2 10^3/uL (0.0-0.8); Eosinophils % 2.9 %; Hematocrit 31.5 % (36-47); Lymphocytes # 1.1 10^3/uL (0.8-4.8); Lymphocytes % 12.9 %; Mean Corpuscular HGB Conc 32.1 g/dL (30-55); Mean Corpuscular Hemoglobin 28.6 pg (27-33); Mean Corpuscular Volume 89.2 fl (85-98); Mean Platelet Volume 11.4 fL (7.4-10.4); Monocytes # 0.6 10^3/uL (0.2-0.9); Monocytes % 6.9 %; Neutrophils # 6.25 10^3/uL (1.8-7.7); Neutrophils % 76.1 %; Nucleated Red Blood Cells % 0 %; Platelet Count 168 10^3/cmm (157-399); Red Blood Count 3.53 10^6/uL (3.85-5.65); Red Cell Distribution Width 12.9 % (12.1-15.1); White Blood Count 8.22 10^3/uL (3.29-11.43)
[2024-12-18 11:42] LABS: Creatinine Urine, Random 59 mg/dL (28-217)
[2024-12-18 11:49] LABS: Albumin Level 3.8 g/dL (3.5-5.2); Blood Urea Nitrogen 47 mg/dL (8-23); Calcium 9.7 mg/dL (8.5-10.5); Carbon Dioxide 29 mmol/L (22-29); Chloride 101 mmol/L (98-107); Glomerular Filtration Rate 23.5 mL/min (90-130); Glucose 104 mg/dL (65-115); Phosphorus 3.8 mg/dL (2.5-4.5); Sodium 141 mmol/L (136-145)
[2024-12-18 11:54] LABS: Microalbum Creatinine Ratio Ur 1644 mg/dL (0-20); Microalbumin Random Urine 97 ug/dL (0-20)
[2024-12-18 12:03] LABS: 25 Hydroxy Vitamin D 39 ng/mL (30-100)
[2024-12-18 12:08] LABS: Calcium 9.3 mg/dL (8.5-10.5)
[2024-12-18 12:14] LABS: Parathyroid Hormone 125.3 pg/mL (15-65)
== END 2024-12-18 10:24 | disposition home or self-care (01) ==
LOC: LAB 10:34
PROVIDERS: PCP Nurse Practitioner; Visit Provider Registered Nurse
DX: N18.32 Chronic kidney disease, stage 3b (principal)
CPT/HCPCS: 36415; 80069; 82044; 82306; 82310; 83970; 85025

== ENCOUNTER → 2025-01-16 13:13 | Outpatient (BNVA) | payer MEDICARE, MEDICAID, SELFPAY | PROVIDERS: PCP Internal Medicine; Visit Provider Podiatrist Foot & Ankle Surgery | DX: E11.21 Type 2 diabetes mellitus with diabetic nephropathy (principal); L60.3 Nail dystrophy; I73.9 Peripheral vascular disease, unspecified; E11.22 Type 2 diabetes mellitus with diabetic chronic kidney disease; N18.4 Chronic kidney disease, stage 4 (severe); Z79.4 Long term (current) use of insulin; G62.9 Polyneuropathy, unspecified | CPT/HCPCS: 11721 ==

== ENCOUNTER 2025-01-16 13:47 | Inpatient (IN) | payer MEDICARE, MEDICAID, SELFPAY ==
[2025-01-16] VITALS (31 sets, daily range): BP systolic 127–228; BP diastolic 50–116; PULSE 73–93; RESP 10–28; TEMP 36.9–37.4; O2SAT 85–99; BMI 48.3
--- NOTE | 2025-01-16 13:53 | ECG_ITS ---
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 Measurements Intervals [place] Rate: 85 P: 92 [place]: 220 QRS: -84 QRSD: 158 T: 75 QT: 424 QTc: 506 Interpretive Statements SINUS RHYTHM WITH FIRST DEGREE AV BLOCK LEFT AXIS DEVIATION [QRS AXIS < -30] RIGHT BUNDLE BRANCH BLOCK [120+ ms QRS DURATION, UPRIGHT V1, 40+ ms S IN I/aVL/V4/V5/V6] Compared to ECG 04/04/2024 21:17:42 First degree AV block now present Myocardial infarct finding no longer present Electronically Signed On 01-19-2025 08:03:24 TELEVISION AGENT by Addison Morales M.D. [id number]
--- NOTE | 2025-01-16 14:09 | XR_ITS ---
WS: [id number] Portable AP upright chest, 01/16/2025 Clinical Data: cp Comparison: Portable chest, 04/04/2024 Findings: There is minimal patchy opacity at the right cardiophrenic angle. No nodules, masses or effusions are seen. The heart is slightly enlarged. The pulmonary vascularity is not increased. No pneumothorax is seen. The aortic arch shows calcification and tortuosity. Monitor leads are on the chest wall. There is faint calcification over the greater tuberosity of the left shoulder which could represent calcific bursitis and/or tendinitis. XR/XR chest 1V portable [id number] Impression: 1. Minimal right cardiophrenic pulmonary opacity which could represent atelecta sis and/or minimal pneumonia. 2. Cardiomegaly and atherosclerosis.
--- NOTE | 2025-01-16 14:09 | CTR_ITS ---
PROCEDURE INFORMATION: Exam: CT Head Without Contrast Exam date and time: 01/16/2025 2:45 PM Age: 69 years old Clinical indication: Pain; Headache; Additional info: ORTIZ TECHNIQUE: Imaging protocol: Computed tomography of the head without contrast. Radiation optimization: All CT scans at this facility use at least one of these dose optimization techniques: automated exposure control; mA and/or kV adjustment per patient size (includes targeted exams where dose is matched to clinical indication); or iterative reconstruction. COMPARISON: CT head wo con* [id number] 12/30/2023 1:42 PM RADIATION DOSE METRICS: Total DLP (mGy-cm): 1118.08 FINDINGS: Brain: No acute intracranial hemorrhage. No evidence of acute large vessel infarct. No mass effect or midline shift. Mild parenchymal atrophy similar to prior. Mild foci of low attenuation in the periventricular white matter are nonspecific but most likely due to chronic microvascular ischemic changes. Cerebral ventricles: No vertriculomegaly. Paranasal sinuses: Included paranasal sinuses are well-aerated. No fluid levels. Mastoid air cells: Mastoid air cells are clear. Orbital cavities: Visualized orbits are unremarkable. Bones: Unremarkable. No acute fracture. Soft tissues: Unremarkable. Vasculature: Intracranial atherosclerotic calcifications. CT/CT head wo con* [id number] IMPRESSION: No CT evidence of acute intracranial abnormality.
--- NOTE | 2025-01-16 14:14 | W.ED.HA ---
HPI - Headache General: Chief Complaint: Headache Stated Complaint: stroke like symptoms Time Seen by Provider: 01/16/25 14:03 Source: patient Mode of arrival: ambulatory Limitations: no limitations History of Present Illness: 69-year-old female who is here with multiple complaints she states she has been having headaches for 2 weeks. States she had a period a week ago where she could not talk states she has had weakness in all extremities over the last 2 weeks states she is also been shaking she is also been having jaw and chest pain. She has been hypertensive as well she is hypertensive here. She has no focal deficits currently states she feels like she is stuttering. Associated symptoms: Reports chest pain; Deny fever(s), nausea, rash or vomiting Related Data Home Medications ?Medication ?Instructions ?Recorded ?Confirmed acetaminophen 325 mg tablet 325 - 650 mg PO Q6H PRN Pain 12/13/21 01/16/25 insulin degludec 200 unit/mL (3 70 unit SUBCUT DAILY 07/09/24 01/16/25 mL) subcutaneous pen (Tresiba FlexTouch U-200 insulin) potassium chloride 10 mEq 10 meq PO DAILY 07/09/24 01/16/25 capsule,extended release albuterol sulfate 90 mcg/actuation 2 puff inhalation Q4H 01/16/25 01/16/25 aerosol inhaler desloratadine 5 mg tablet 5 mg PO DAILY 01/16/25 01/16/25 hydroxyzine pamoate 50 mg capsule 50 mg PO QPM 01/16/25 01/16/25 montelukast 10 mg tablet 10 mg PO DAILY 01/16/25 01/16/25 torsemide 100 mg tablet 100 mg PO DAILY 01/16/25 01/16/25 zonisamide 25 mg capsule 25 mg PO Q12H 01/16/25 01/16/25 Previous Rx's ?Medication ?Instructions ?Recorded nitroglycerin 0.4 mg sublingual 0.4 mg sublingual Q5M PRN Chest 11/25/23 tablet (Nitrostat) Pain #50 tabs insulin lispro 100 unit/mL See Rx Instructions SUBCUT 02/28/24 subcutaneous pen (Humalog KwikPen .COMPLEX #15 mL (U-100) Insulin) fluoxetine 20 mg capsule 20 mg PO BID #60 caps 04/25/24 isosorbide mononitrate 120 mg 120 mg PO QDAY #30 tabs 04/25/24 tablet,extended release 24 hr losartan 100 mg tablet (Cozaar) 100 mg PO DAILY #30 tabs 04/25/24 pantoprazole 40 mg tablet,delayed 40 mg PO DAILY #30 tabs 04/25/24 release sennosides 8.6 mg-docusate sodium 1 tab-cap PO BID #60 tabs 04/25/24 50 mg tablet (Senokot-S) hydralazine 25 mg tablet 25 mg PO BID #60 tabs 07/09/24 leflunomide 10 mg tablet 10 mg PO DAILY #90 tabs 07/16/24 Allergies Allergy/AdvReac Type Severity Reaction Status Date / Time acetaminophen (From [place]) Allergy Unknown Verified 01/16/25 14:01 bacitracin Allergy ADR-Nausea Verified 01/16/25 14:01 codeine Allergy ADR-Nausea Verified 01/16/25 14:01 hydrocodone (From [place]) Allergy Unknown Verified 01/16/25 14:01 Latex, Natural Rubber Allergy Unknown Verified 01/16/25 14:01 morphine Allergy ADR-Itching Verified 01/16/25 14:01 neomycin (From Neosporin Allergy ALGY-Rash Verified 01/16/25 14:01 ([id number])) polymyxin B (From Neosporin Allergy ALGY-Rash Verified 01/16/25 14:01 ([id number])) Sulfa (Sulfonamide Allergy ADR-Nausea Verified 01/16/25 14:01 Antibiotics) sulfamethoxazole (From Allergy Unknown Verified 01/16/25 14:01 Bactrim) trimethoprim (From Bactrim) Allergy Unknown Verified 01/16/25 14:01 spironolactone AdvReac Severe Temporary Verified 01/16/25 14:01 blindness Review of Systems Const: Denies: fever(s), chills, body aches or change in appetite Eyes: Denies: blurry vision or eye discomfort ENMT: Denies: throat pain or dental pain Card: Reports: chest pain Resp: Denies: dyspnea GI: Denies: abdominal pain, nausea, vomiting or diarrhea Musc: Reports: neck pain; Denies: back pain Skin/Breast: Denies: rash Neuro: Reports: headache(s), numbness in extremities, weakness in extremities and Slurred speech present PFSH ED PFSH: Medical History Chronic diastolic heart failure Gastric ulcer H. pylori ruled out at [facility] Situational anxiety Benign hypertension Type 2 diabetes mellitus with diabetic chronic kidney disease Hospital-acquired pneumonia Acute exacerbation of CHF (congestive heart failure) Acute on chronic renal failure Diabetic gastroparesis Hypoxia Anemia Positive GIFTY (antinuclear antibody) Frequent falls Muscle spasm High risk medication use Seronegative rheumatoid arthritis of both hands Diabetic foot Hip pain, left Atypical chest pain IgM monoclonal gammopathy of uncertain significance Intermittent atrial fibrillation Chest pain Edema CKD (chronic kidney disease) stage 3, GFR 30-59 ml/min Urinary disorder Anxiety Pneumonitis Left lumbar radiculopathy Back pain Lymph edema Fracture of distal end of fibula Syncope and collapse Essential tremor Mobility impaired IBS (irritable bowel syndrome) Inflammatory arthritis Chronic back pain Chronic major depressive disorder Peripheral neuropathy Polyarthralgia Edema, peripheral Noncompliance with diabetes treatment Not consistent with diet Near syncope Monoclonal gammopathy Major depression Diabetic neuropathy associated with type 2 diabetes mellitus Severe obstructive sleep apnea Mild cognitive impairment with memory loss Dietary noncompliance Atrial flutter Coronary artery fistula Chronic obstructive pulmonary disease, unspecified Obesity CKD (chronic kidney disease) Fibromyalgia Diverticulosis Environmental and seasonal allergies Vitamin D deficiency Surgical History History of left heart catheterization (2017) No significant obstructive coronary disease Hx of esophagogastroduodenoscopy Hx of colonoscopy History of tonsillectomy History of section 4 times History of cholecystectomy (1993) History of hysterectomy (1997) with BSO Family History Brother Bleeding disorder CAD (coronary artery disease) Father CAD (coronary artery disease) Chronic kidney disease (CKD) Mother CAD (coronary artery disease) Cancer Diabetes Family/Other Cancer Other Congestive heart failure (CHF) Heart disease Hypertension Denies family history of Clotting disorder Dementia Suicide Anesthesia complication Lung disease Stroke Social History Smoking and tobacco/nicotine status: unknown if used tobacco/nicotine Quit status (tobacco/nicotine): has quit using Year quit tobacco: 1990 Former quit date comment: smoked 20+ years Second hand smoke exposure: No Alcohol intake: never Substance/Drug Use: never Adopted: No Caregiver/support person: Yes Lives independently: No Household members: children and other Details: Son, sometimes grandson Housing: House Marital status: Single service: No Current occupational status: disabled Do you think of yourself as: Straight/Heterosexual Current gender identity: Female Physical Exam Const: COMMON NORMALS: patient oriented x3 HENMT: COMMON NORMALS: normocephalic and atraumatic HEAD & SCALP: normocephalic and atraumatic Eye: COMMON NORMALS: Equal, round and reactive pupils present and EOMs intact bilaterally PUPIL: Yes Equal, round and reactive pupils present Neck/C-Spine: COMMON NORMALS: full ROM and supple Chest: COMMONS NORMALS: normal inspection of the chest Resp: COMMON NORMALS: normal respiratory effort, No retractions, No use of accessory muscles and clear to auscultation bilaterally AUSCULTATION: clear to auscultation bilaterally Cardio: COMMON NORMALS: regular rate, regular rhythm and No murmurs present (Cardio) RATE: regular rate RHYTHM: regular rhythm GI: COMMON NORMALS: Normal to inspection, nondistended, normoactive bowel sounds present, Soft to palpation, non-tender and no masses PALPATION: Yes Soft to palpation Extremity: COMMON NORMALS: normal to inspection and full ROM Neuro: COMMON NORMALS: patient oriented x3, moves all extremities and no focal motor deficits Psych: COMMON NORMALS: mental status grossly normal, Normal thought process present and cooperative THOUGHT PROCESS: Normal thought process present Skin: COMMON NORMALS: no rashes or lesions noted and no wounds GENERAL SKIN EXAM: no rashes or lesions noted Course Vital Signs: Vital signs: Vital Signs Temperature 98.5 F 01/16/25 13:49 Pulse Rate 77 01/16/25 17:30 Respiratory Rate 12 01/16/25 15:50 Blood Pressure 219/105 01/16/25 17:30 Pulse Oximetry 98 01/16/25 17:00 Oxygen Delivery Me thod Room Air 01/16/25 13:49 MDM - Headache Medical Decision Making Patient presents with headache, chest pains been going on for weeks she has no signs of acute stroke here she is hypertensive given her multiple meds she is continue to have high blood pressures as her chest pain has resolved but still is having some generalized weakness I spoke to hospitalist will admit her at this time as she has had uncontrollable hypertension. Medical Records I reviewed the patient's medical records. Lab Data I reviewed the patient's lab results. 01/16/25 14:10 01/16/25 14:10 Radiology Impressions Chest X-Ray 01/16/25 14:09 Impression: 1. Minimal right cardiophrenic pulmonary opacity which could represent atelectasis and/or minimal pneumonia. 2. Cardiomegaly and atherosclerosis. Head CT 01/16/25 14:09 IMPRESSION: No CT evidence of acute intracranial abnormality. Laboratory Results WBC 9.01 10^3/uL (3.29-11.43) 01/16/25 14:10 RBC 4.05 10^6/uL (3.85-5.65) 01/16/25 14:10 Hgb 11.60 g/dL (11.27-16.99) 01/16/25 14:10 Hct 36.2 % (36-47) 01/16/25 14:10 MCV 89.4 fl (85-98) 01/16/25 14:10 MCH 28.6 pg (27-33) 01/16/25 14:10 MCHC 32.0 g/dL (30-55) 01/16/25 14:10 RDW 13.2 % (12.1-15.1) 01/16/25 14:10 Plt Count 214 10^3/cmm (157-399) 01/16/25 14:10 MPV 11.2 fL (7.4-10.4) H 01/16/25 14:10 Neut % (Auto) 75.9 % 01/16/25 14:10 Lymph % (Auto) 15.3 % 01/16/25 14:10 Logan % (Auto) 5.3 % 01/16/25 14:10 Eos % (Auto) 2.3 % 01/16/25 14:10 Baso % (Auto) 1.0 % 01/16/25 14:10 Neut # (Auto) 6.83 10^3/uL (1.8-7.7) 01/16/25 14:10 Lymph # (Auto) 1.4 10^3/uL (0.8-4.8) 01/16/25 14:10 Logan # (Auto) 0.5 10^3/uL (0.2-0.9) 01/16/25 14:10 Eos # (Auto) 0.2 10^3/uL (0.0-0.8) 01/16/25 14:10 Baso # (Auto) 0.1 10^3/uL (0.0-0.1) 01/16/25 14:10 Nucleated RBC % (auto) 0 % 01/16/25 14:10 Nucleated RBCs # 0.0 /100WBC 01/16/25 14:10 PT 13.10 SECONDS (12.1-14.9) 01/16/25 14:10 INR 0.92 (0.8-1.2) 01/16/25 14:10 Sodium 144 mmol/L (136-145) 01/16/25 14:10 Potassium 3.9 mmol/L (3.5-5.1) 01/16/25 14:10 Chloride 102 mmol/L (98-107) 01/16/25 14:10 Carbon Dioxide 27 mmol/L (22-29) 01/16/25 14:10 Anion Gap 18.9 (5-19) 01/16/25 14:10 BUN 36 mg/dL (8-23) H 01/16/25 14:10 Creatinine 2.2 mg/dL (0.5-0.9) H 01/16/25 14:10 GFR Calculation 22.3 mL/min (90-130) L 01/16/25 14:10 Glucose 201 mg/dL (65-115) H 01/16/25 14:10 Calculated Osmolality 312 mOsm/kg (285-295) H 01/16/25 14:10 Calcium 9.6 mg/dL (8.5-10.5) 01/16/25 14:10 Total Bilirubin 0.2 mg/dL (0.15-1.2) 01/16/25 14:10 AST 20 U/L (0-32) 01/16/25 14:10 ALT 14 U/L (0-33) 01/16/25 14:10 Alkaline Phosphatase 173 U/L (35-105) H 01/16/25 14:10 Troponin T Baseline 42 ng/L (0-10) H 01/16/25 14:10 Troponin T 120 Minute 37.99 ng/L (0-10) H 01/16/25 16:19 Delta Troponin T -4.01 ABS# (0-10) L 01/16/25 16:19 Total Protein 7.3 g/dL (6.6-8.7) 01/16/25 14:10 Albumin 4.2 g/dL (3.5-5.2) 01/16/25 14:10 Globulin 3.1 g/dL (1.3-4.6) 01/16/25 14:10 Urine Color Yellow (Yellow) 01/16/25 14:33 Urine Appearance Clear (CLEAR) 01/16/25 14:33 Urine pH 6.5 (5-7) 01/16/25 14:33 Ur Specific [place] 1.008 (1.005-1.030) 01/16/25 14:33 Urine Protein 2+ (Negative) A 01/16/25 14:33 Urine Glucose (UA) Negative (Normal) 01/16/25 14:33 Urine Ketones Negative (Negative) 01/16/25 14:33 Urine Blood Negative (Negative) 01/16/25 14:33 Urine Nitrate Negative (Negative) 01/16/25 14:33 Urine Bilirubin Negative (Negative) 01/16/25 14:33 Urine Urobilinogen 0.2 mg/dL (Negative) 01/16/25 14:33 Ur Leukocyte Esterase Negative (Negative) 01/16/25 14:33 Urine RBC None /hpf (0-2) 01/16/25 14:33 Urine WBC 0-4 /hpf (0-5) H 01/16/25 14:33 Ur Squamous Epith Cells 0-4 /hpf (0-5) H 01/16/25 14:33 Amorphous Sediment Not Reportable 01/16/25 14:33 Urine Bacteria Trace /hpf (NONE) 01/16/25 14:33 Urine Mucus None /hpf 01/16/25 14:33 Urine Yeast Trace /hpf 01/16/25 14:33 All radiology interpretation(s) finalized by discharge Discharge Plan Discharge Patient Disposition: Admitted As Inpatient Admit Provider: Davida Fischer Clinical Impression: Hypertensive urgency, Chest pain Condition: Stable Coding Level of Care Code ED Scrap Hooker for Anel Mcknight
[2025-01-16 14:20] LABS: Basophils # 0.1 10^3/uL (0.0-0.1); Eosinophils # 0.2 10^3/uL (0.0-0.8); Eosinophils % 2.3 %; Hematocrit 36.2 % (36-47); Lymphocytes # 1.4 10^3/uL (0.8-4.8); Lymphocytes % 15.3 %; Mean Corpuscular Hemoglobin 28.6 pg (27-33); Mean Corpuscular Volume 89.4 fl (85-98); Mean Platelet Volume 11.2 fL (7.4-10.4); Monocytes # 0.5 10^3/uL (0.2-0.9); Monocytes % 5.3 %; Neutrophils # 6.83 10^3/uL (1.8-7.7); Neutrophils % 75.9 %; Nucleated Red Blood Cells % 0 %; Platelet Count 214 10^3/cmm (157-399); Red Blood Count 4.05 10^6/uL (3.85-5.65); Red Cell Distribution Width 13.2 % (12.1-15.1); White Blood Count 9.01 10^3/uL (3.29-11.43)
[2025-01-16] MEDS: hyDRALAzine 20 mg/mL INJ 1 mL 10 MG IVP ×2 (14:29→17:22)
[2025-01-16 14:33] LABS: Troponin(5th) Baseline 42 ng/L (0-10)
[2025-01-16 14:42] LABS: Alanine Aminotransferase 14 U/L (0-33); Albumin Level 4.2 g/dL (3.5-5.2); Alkaline Phosphatase 173 U/L (35-105); Anion Gap 18.9 (5-19); Aspartate Amino Transferase 20 U/L (0-32); Blood Urea Nitrogen 36 mg/dL (8-23); Calcium 9.6 mg/dL (8.5-10.5); Carbon Dioxide 27 mmol/L (22-29); Chloride 102 mmol/L (98-107); Creatinine Clr Calc Pharmacy 31.7193; Globulin 3.1 g/dL (1.3-4.6); Glomerular Filtration Rate 22.3 mL/min (90-130); Glucose 201 mg/dL (65-115); Osmolality Calculated 312 mOsm/kg (285-295); Potassium 3.9 mmol/L (3.5-5.1); Sodium 144 mmol/L (136-145); Total Bilirubin 0.2 mg/dL (0.15-1.2); Total Protein 7.3 g/dL (6.6-8.7)
[2025-01-16 14:52] LABS: INR 0.92 (0.8-1.2)
[2025-01-16 14:58] LABS: Bilirubin Urine Negative (Negative); Blood Urine Negative (Negative); Glucose Urine UA Negative (Normal); Ketones Urine Negative (Negative); Leukocyte Esterase Urine Negative (Negative); Nitrate Urine Negative (Negative); Protein Urine 2+ (Negative); Specific Gravity, Urine 1.008 (1.005-1.030); Urine Appearance Clear (CLEAR); Urine Color Yellow (Yellow); Urobilinogen Urine 0.2 mg/dL (Negative); pH Urine 6.5 (5-7)
[2025-01-16 15:24] LABS: Add Urine Microscopic? YES
[2025-01-16 15:26] LABS: Add Urine Culture? No; Bacteria Urine TRACE /hpf; Squamous Epithelial Cell Urine 0-4 /hpf (0-5); WBC Urine 0-4 /hpf (0-5)
--- NOTE | 2025-01-16 15:56 | ECG_ITS ---
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 Measurements Intervals [place] Rate: 86 P: 78 MD: 227 QRS: -86 QRSD: 164 T: 66 QT: 438 QTc: 525 Interpretive Statements SINUS RHYTHM WITH FIRST DEGREE AV BLOCK LEFT AXIS DEVIATION [QRS AXIS < -30] RIGHT BUNDLE BRANCH BLOCK [120+ ms QRS DURATION, UPRIGHT V1, 40+ ms S IN I/aVL/V4/V5/V6] Compared to ECG 01/16/2025 13:53:45 No significant changes Electronically Signed On 01-19-2025 08:26:12 STRANDING MACHINE OPERATOR by Addison Morales M.D. [email or web address] [id number]
[2025-01-16] MEDS: labetalol 5 mg/mL SDV 20mL 10 MG IVP (16:14)
[2025-01-16 16:48] LABS: Troponin 5 2HR 37.99 ng/L (0-10)
[2025-01-16 16:52] LABS: Troponin 5 2HR Delta -4.01 ABS# (0-10)
--- NOTE | 2025-01-16 17:33 | P.HP_ITS ---
Providers/Chief Complaint 2 Admitting Physician: Davida Fischer MD Primary Care Provider: Denny Padgett MD Chief Complaint: stroke like symptoms History of Present Illness Jennifer Novak is a 69 year old female rheumatoid arthritis, takes leflunomide, diastolic CHF, CKD, chronic hypoxia uses 2 L during the day and BiPAP at night, anxiety, in the past required temporary dialysis, was transferred to [facility] after she developed significant hematoma with temporal dialysis catheter placement, presenting with chief complaint of high blood pressure and chest pain from cardiology clinic. Patient also follows up with nephrology for chronic kidney disease, in the past she has required dialysis temporarily, currently on torsemide 100 mg, I reviewed her home medications from her bag she is only taking losartan along torsemide for blood pressure which seems to be inadequate for blood pressure control, as per the son her blood pressure machine broke few months ago she does not check her blood pressure on a daily basis, she does not know her regular blood pressure numbers. Patient is stating that she is hurting all over her body complaining of muscle cramps in her legs, headache, she does have multiple allergies does not want to take any opioids, we gave her Tylenol for headache. Troponin trending down, no active chest pain, during my evaluation she is complaining of headache, EKG not showing any infarctive or ischemic changes, Blood pressure improved 165/75 mmHg, she received hydralazine and labetalol in the ER which improved her blood pressure Patient does not have any stroke related features Creatinine around 2.2 baseline Patient does not have good insight to her home medications, son was also confused between hydroxyzine and hydralazine Review of Systems 2 Const: Denies: fever(s) Eyes: Denies: change in vision ENMT: Denies: throat pain Card: Reports: chest pain Resp: Reports: dyspnea GI: Reports: nausea Neuro: Reports: headache(s) Medications/Allergies Home Medications ?Medication ?Instructions ?Recorded ?Confirmed ?Last Taken ?Type acetaminophen 325 mg tablet 325 - 650 mg PO Q6H PRN Pa in 12/13/21 01/16/25 Unknown History nitroglycerin 0.4 mg sublingual 0.4 mg sublingual Q5M PRN Chest 11/25/23 01/16/25 Unknown Rx tablet (Nitrostat) Pain #50 tabs insulin lispro 100 unit/mL See Rx Instructions SUBCUT 02/28/24 01/16/25 Unknown Rx subcutaneous pen (Humalog KwikPen .COMPLEX #15 mL (U-100) Insulin) fluoxetine 20 mg capsule 20 mg PO BID #60 caps 01/16/25 Unknown Rx isosorbide mononitrate 120 mg 120 mg PO QDAY #30 tabs 04/25/24 01/16/25 Unknown Rx tablet,extended release 24 hr losartan 100 mg tablet (Cozaar) 100 mg PO DAILY #30 ta bs 04/25/24 01/16/25 Unknown Rx pantoprazole 40 mg tablet,delayed 40 mg PO DAILY #30 t abs 04/25/24 01/16/25 Unknown Rx release sennosides 8.6 mg-docusate sodium 1 tab-cap PO BID #60 tabs 04/25/24 01/16/25 Unknown Rx 50 mg tablet (Senokot-S) hydralazine 25 mg tablet 25 mg PO BID #60 tabs 01/16/25 Unknown Rx insulin degludec 200 unit/mL (3 70 unit SUBCUT DAILY 0 07/09/24 01/16/25 Unknown History mL) subcutaneous pen (Tresiba FlexTouch U-200 insulin) potassium chloride 10 mEq 10 meq PO DAILY 07/09/24 Unknown History capsule,extended release leflunomide 10 mg tablet 10 mg PO DAILY #90 tabs 06/2201/16/25 Unknown Rx albuterol sulfate 90 mcg/actuation 2 puff inhalation Q 4H 01/16/25 01/16/25 Unknown History aerosol inhaler desloratadine 5 mg tablet 5 mg PO DAILY 01/16/2501/16 Unknown History hydroxyzine pamoate 50 mg capsule 50 mg PO QPM 5 01/16/25 Unknown History montelukast 10 mg tablet 10 mg PO DAILY 01/16/2512/23 Unknown History torsemide 100 mg tablet 100 mg PO DAILY 01/16/25 Unknown History zonisamide 25 mg capsule 25 mg PO Q12H 01/16/2501/16 Unknown History Allergies Allergy/AdvReac Type Severity Reaction Status Date / Time acetaminophen (From 3 day Blinds) Allergy Unknown Verified 01/16/25 14:01 bacitracin Allergy ADR-Nausea Verified 01/16/25 14:01 codeine Allergy ADR-Nausea Verified 01/16/25 14:01 hydrocodone (From [place]) Allergy Unknown Verified 01/16/25 14:01 Latex, Natural Rubber Allergy Unknown Verified 01/16/25 14:01 morphine Allergy ADR-Itching Verified 01/16/25 14:01 neomycin (From Neosporin Allergy ALGY-Rash Verified 01/16/25 14:01 ([id number])) polymyxin B (From Neosporin Allergy ALGY-Rash Verified 01/16/25 14:01 ([id number])) Sulfa (Sulfonamide Allergy ADR-Nausea Verified 01/16/25 14:01 Antibiotics) sulfamethoxazole (From Allergy Unknown Verified 01/16/25 14:01 Bactrim) trimethoprim (From Bactrim) Allergy Unknown Verified 01/16/25 14:01 spironolactone AdvReac Severe Temporary Verified 01/16/25 14:01 blindness PFSH Acute 2 PFSH: Medical History Chronic diastolic heart failure Gastric ulcer H. pylori ruled out at [facility] Situational anxiety Benign hypertension Type 2 diabetes mellitus with diabetic chronic kidney disease Hospital-acquired pneumonia Acute exacerbation of CHF (congestive heart failure) Acute on chronic renal failure Diabetic gastroparesis Hypoxia Anemia Positive GIFTY (antinuclear antibody) Frequent falls Muscle spasm High risk medication use Seronegative rheumatoid arthritis of both hands Diabetic foot Hip pain, left Atypical chest pain IgM monoclonal gammopathy of uncertain significance Intermittent atrial fibrillation Chest pain Edema CKD (chronic kidney disease) stage 3, GFR 30-59 ml/min Urinary disorder Anxiety Pneumonitis Left lumbar radiculopathy Back pain Lymph edema Fracture of distal end of fibula Syncope and collapse Essential tremor Mobility impaired IBS (irritable bowel syndrome) Inflammatory arthritis Chronic back pain Chronic major depressive disorder Peripheral neuropathy Polyarthralgia Edema, peripheral Noncompliance with diabetes treatment Not consistent with diet Near syncope Monoclonal gammopathy Major depression Diabetic neuropathy associated with type 2 diabetes mellitus Severe obstructive sleep apnea Mild cognitive impairment with memory loss Dietary noncompliance Atrial flutter Coronary artery fistula Chronic obstructive pulmonary disease, unspecified Obesity CKD (chronic kidney disease) Fibromyalgia Diverticulosis Environmental and seasonal allergies Vitamin D deficiency Surgical History History of left heart catheterization (2017) No significant obstructive coronary disease Hx of esophagogastroduodenoscopy Hx of colonoscopy History of tonsillectomy History of section 4 times History of cholecystectomy (1993) History of hysterectomy (1997) with BSO Family History Brother Bleeding disorder CAD (coronary artery disease) Father CAD (coronary artery disease) Chronic kidney disease (CKD) Mother CAD (coronary artery disease) Cancer Diabetes Family/Other Cancer Other Congestive heart failure (CHF) Heart disease Hypertension Denies family history of Clotting disorder Dementia Suicide Anesthesia complication Lung disease Stroke Social History Smoking and tobacco/nicotine status: unknown if used tobacco/nicotine Quit status (tobacco/nicotine): has quit using Year quit tobacco: 1990 Former quit date comment: smoked 20+ years Second hand smoke exposure: No Alcohol intake: never Substance/Drug Use: never Adopted: No Caregiver/support person: Yes Lives independently: No Household members: children and other Details: Son, sometimes grandson Housing: House Marital status: Single service: No Current occupational status: disabled Do you think of yourself as: Straight/Heterosexual Current gender identity: Female Vitals/I&O/Wt Last Vital Signs Temp 98.5 F 01/16/25 13:49 Pulse 84 01/16/25 16:10 Resp 12 01/16/25 15:50 BP 196/101 01/16/25 16:10 Pulse Ox 94 01/16/25 16:10 O2 Del Method Room Air 01/16/25 13:49 Weight last 48 hrs Weight 123.831 kg Physical Exam 2 Narrative: Morbidly obese female Anticipating Complaining of hurting all over Complaining of headache No sign of meningitis or CVA Blood pressure improved 165/75-minute mercury Currently on room air in the ER Saturating 94% Distended abdomen nontender Lower extremity nonpitting edema S1, S2 sinus rhythm GCS 15 NIH 0 Data 01/16/25 14:10 01/16/25 14:10 A&P Assessment and plan (1) High risk medication use: (2) Situational anxiety: (3) Hypertensive urgency: (4) Chronic diastolic heart failure: (5) Chest pain: (6) Type 2 diabetes mellitus with diabetic chronic kidney disease: Qualifiers: Diabetes mellitus director long term care insulin use: with director long term care use Chronic kidney disease stage: stage 4 (severe) Qualified Code(s): E11.22 - Type 2 diabetes mellitus with diabetic chronic kidney disease; N18.4 - Chronic kidney disease, stage 4 (severe); Z79.4 - correction (current) use of insulin (7) Gastric ulcer: (8) IBS (irritable bowel syndrome): (9) CKD (chronic kidney disease) stage 4, GFR 15-29 ml/min: (10) IgM monoclonal gammopathy of uncertain significance: (11) Anemia: Qualifiers: Anemia type: iron deficiency Iron deficiency anemia type: inadequate dietary iron intake Qualified Code(s): D50.8 - Other iron deficiency anemias (12) Inflammatory arthritis: (13) Physical deconditioning: Plan hypertensive urgency MAP reduction 25% in next 6 to 8 hours Improved blood pressure with use of hydralazine and labetalol Patient complaining of headache, requested CT head with did not show any infarctive or hemorrhagic changes Patient not on optimal antihypertensive regimen, considering chronic kidney disease and diabetes, patient is only taking losartan and torsemide At this point I will add hydralazine, isosorbide and discontinue losartan, continue torsemide Patient follows up, nephrology as outpatient as well Headache: No sign of meningitis or stroke, CT head unremarkable Chest pain: Atypical if troponin trending down EKG no active infective or ischemic changes No active chest pain at the time of evaluation Chronic hypoxia uses 2 to 3 L of oxygen during the day and BiPAP at night Diastolic CHF: No acute decompensation Anxiety: Can use Xanax on as-needed basis Full code Cardiac diet/consistent carb with sliding scale of insulin DVT prophylaxis: Heparin PDMP PDMP Reviewed: Not Reviewed Attestations 2 Medical Necessity Statement*: Anticipating discharge within 48 hours Diagnoses High risk medication use Z79.899 Situational anxiety F41.8 Hypertensive urgency I16.0 Chronic diastolic heart failure I50.32 Chest pain R07.9 Type 2 diabetes mellitus with stage 4 chronic kidney disease, with long-term current use of insulin E11.22; N18.4; Z79.4 Diabetes mellitus director long term care insulin use: with intermediate use Chronic kidney disease stage: stage 4 (severe) Gastric ulcer K25.9 IBS (irritable bowel syndrome) K58.9 CKD (chronic kidney disease) stage 4, GFR 15-29 ml/min N18.4 IgM monoclonal gammopathy of uncertain significance D47.2 Iron deficiency anemia secondary to inadequate dietary iron intake D50.8 Anemia type: iron deficiency Iron deficiency anemia type: inadequate dietary iron intake Inflammatory arthritis M19.90 Physical deconditioning R53.81
[2025-01-16] MEDS: acetaminophen 500 mg Tablet PO ×2 (18:05→22:23)
[2025-01-16 18:24] LABS: Procalcitonin 0.12 ng/mL (0-0.5); Thyroid Stimulating Hormone 1.89 uIU/mL (0.27-4.20)
[2025-01-16 18:26] LABS: Amphetamines Screen Urine Negative (Negative); Barbiturates Screen Urine Negative (Negative); Benzodiazepines Screen Urine Negative (Negative); Cocaine Screen Urine Negative (Negative); Opiate Screen Urine Negative (Negative); PCP Screen Urine Negative (Negative); THC Screen Urine Negative (Negative)
[2025-01-16 18:31] LABS: Glucose Point of Care 155 mg/dL (70-110)
--- NOTE | 2025-01-16 18:38 | PC.NURSE ---
VERBAL ORDERS FROM DR. MUHAMMAD TO HOLD NICARDIPINE DUE TO PT BLOOD PRESSURE COMING DOWN. VERBAL ORDERS TO START MEDICATION IF DIASTOLIC BLOOD PRESSURE IS ABOVE 110.
[2025-01-16] MEDS: heparin 5,000 unit/mL INJ 1 mL 5000 UNIT SUBCUT (18:42)
--- NOTE | 2025-01-16 20:09 | ECG_ITS ---
[facility]17 Pat Name: Jennifer Novak Department: Room: 107 Gender: Female Phlebotomy Program Coordinator: : 1955 Requested By: Loly Dasilva Order Number: [id number] Cierra MD: Addison Morales M.D. Measurements Intervals [place] Rate: 81 P: 83 MT: 252 QRS: -74 QRSD: 160 T: 75 QT: 461 QTc: 537 Interpretive Statements SINUS RHYTHM WITH FIRST DEGREE AV BLOCK RIGHT BUNDLE BRANCH BLOCK [120+ ms QRS DURATION, UPRIGHT V1, 40+ ms S IN I/aVL/V4/V5/V6] LEFT ANTERIOR FASCICULAR BLOCK [QRS AXIS <= -45, QR IN I, RS IN II] Compared to ECG 01/16/2025 15:56:38 Left anterior fascicular block now present Left-axis deviation no longer present Electronically Signed On 01-19-2025 08:24:09 COOK SHORT ORDER by Addison Morales M.D. [email or web address]
[2025-01-16] MEDS: hyDRALAzine 25 mg Tablet PO (20:21)
[2025-01-17] VITALS (24 sets, daily range): BP systolic 112–210; BP diastolic 57–87; PULSE 70–99; RESP 11–24; TEMP 36.4–37; O2SAT 88–97
[2025-01-17] MEDS: hyDRALAzine 20 mg/mL INJ 1 mL 10 MG IVP (00:52)
[2025-01-17] MEDS: acetaminophen 500 mg Tablet PO (02:38)
[2025-01-17 04:23] LABS: Blood Urea Nitrogen 38 mg/dL (8-23); C Reactive Protein 4.2 mg/L (0.0-4.9); Calcium 8.9 mg/dL (8.5-10.5); Carbon Dioxide 27 mmol/L (22-29); Chloride 102 mmol/L (98-107); Creatinine Clr Calc Pharmacy 31.2757; Glomerular Filtration Rate 22.3 mL/min (90-130); Glucose 141 mg/dL (65-115); Osmolality Calculated 303 mOsm/kg (285-295); Sodium 141 mmol/L (136-145)
[2025-01-17 04:24] LABS: Anion Gap 15.6 (5-19); Potassium 3.6 mmol/L (3.5-5.1)
[2025-01-17] MEDS: heparin 5,000 unit/mL INJ 1 mL 5000 UNIT SUBCUT ×2 (04:56→18:43)
--- NOTE | 2025-01-17 07:53 | PC.NURSE ---
0034- Notified MD that patient has BP of 194/76 no prn avaliable and gtt was dc'd. Orders recieved for hydralazine 10 mg IVP once. 0105- Notified MD that hydralazine worked and requesting prn doses as BP fluctuates. 0348- Notifed MD thaty patient is having severe leg pain with burning. Patient refusing morphine and tylenol is not relieving symptoms. MD aware, no orders recieved.
[2025-01-17] MEDS: montelukast sodium 10 mg Tablet PO (08:48)
[2025-01-17] MEDS: TORSEmide 20 mg Tablet 100 MG PO (08:48)
[2025-01-17] MEDS: insulin glargine 100 units/1 mL 50 UNIT SUBCUT (08:48)
[2025-01-17] MEDS: sennosides-docusate Tablet 1 TAB PO (08:49)
[2025-01-17] MEDS: isosorbide mononitrate ER 60 mg Tablet 120 MG PO (08:49)
[2025-01-17] MEDS: potassium chloride ER 10 mEq Tablet PO (08:49)
[2025-01-17] MEDS: hyDRALAzine 25 mg Tablet PO ×3 (08:49→20:35)
[2025-01-17] MEDS: pantoprazole DR 40 mg Tablet PO (08:49)
--- NOTE | 2025-01-17 12:50 | P.PN_ITS ---
Subjective 2 Subjective: seen this am BP still high this AM patient does complain of intermittent chest pain and would like to see cardiology. Vitals/I&O/Wt Last Vital Signs Temp 98.0 F 01/17/25 11:19 Pulse 76 01/17/25 11:19 Resp 15 01/17/25 11:19 BP 125/65 01/17/25 11:19 Pulse Ox 92 01/17/25 11:19 O2 Del Method Room Air 01/17/25 11:19 FiO2 21 01/17/25 01:43 01/16/25 01/17/25 01/17/25 22:59 06:59 14:59 Intake Total 200 / 200 200 / 400 480 / 480 Output Total 0 / 0 Balance 200 / 200 200 / 400 480 / 480 Weight last 48 hrs Weight 55.338 kg Weight 121 kg Weight 123.831 kg Physical Exam 2 Narrative: General: Alert oriented x3, patient seen sitting in up in bed HEENT: Normocephalic, atraumatic, EOMI, Cardio: Regular rate rhythm, normal S1-S2, Respiratory: Good bilateral air entry, no wheezes no rhonchi appreciated GI: Abdomen soft, nontender, nondistended, bowel sounds + Behavior: Appropriate and cooperative Extremities: non pitting edema Data 01/16/25 14:10 01/17/25 03:46 A&P Assessment and plan (1) High risk medication use: (2) Situational anxiety: (3) Hypertensive urgency: (4) Chronic diastolic heart failure: (5) Chest pain: (6) Type 2 diabetes mellitus with diabetic chronic kidney disease: Qualifiers: Diabetes mellitus technician terminal and repeater insulin use: with senior living use Chronic kidney disease stage: stage 4 (severe) Qualified Code(s): E11.22 - Type 2 diabetes mellitus with diabetic chronic kidney disease; N18.4 - Chronic kidney disease, stage 4 (severe); Z79.4 - technician terminal and repeater (current) use of insulin (7) Gastric ulcer: (8) IBS (irritable bowel syndrome): (9) CKD (chronic kidney disease) stage 4, GFR 15-29 ml/min: (10) IgM monoclonal gammopathy of uncertain significance: (11) Anemia: Qualifiers: Anemia type: iron deficiency Iron deficiency anemia type: inadequate dietary iron intake Qualified Code(s): D50.8 - Other iron deficiency anemias (12) Inflammatory arthritis: (13) Physical deconditioning: Plan hypertensive urgency MAP reduction 25% in next 6 to 8 hours Improved blood pressure with use of hydralazine and labetalol Patient complaining of headache, requested CT head with did not show any infarctive or hemorrhagic changes Patient not on optimal antihypertensive regimen, considering chronic kidney disease and diabetes, patient is only taking losartan and torsemide At this point I will add hydralazine, isosorbide and discontinue losartan, continue torsemide Patient follows up, nephrology as outpatient as well Headache: No sign of meningitis or stroke, CT head unremarkable Chest pain: Atypical if troponin trending down EKG no active infective or ischemic changes No active chest pain at the time of evaluation Chronic hypoxia uses 2 to 3 L of oxygen during the day and BiPAP at night Diastolic CHF: No acute decompensation Anxiety: Can use Xanax on as-needed basis Full code Cardiac diet/consistent carb with sliding scale of insulin DVT prophylaxis: Heparin 01/17/2025 BP still high, continue on new med regimen and monitor will discuss with cardiology complains of intermittent chest pain, delta trop negative at 6 hours EKG without acute ischemic changes PDMP PDMP Reviewed: Not Reviewed Attestations 2 Medical Necessity Statement*: continue to hospitalize to optimize BP Diagnoses High risk medication use Z79.899 Situational anxiety F41.8 Hypertensive urgency I16.0 Chronic diastolic heart failure I50.32 Chest pain R07.9 Type 2 diabetes mellitus with stage 4 chronic kidney disease, with long-term current use of insulin E11.22; N18.4; Z79.4 Diabetes mellitus senior living insulin use: with senior living use Chronic kidney disease stage: stage 4 (severe) Gastric ulcer K25.9 IBS (irritable bowel syndrome) K58.9 CKD (chronic kidney disease) stage 4, GFR 15-29 ml/min N18.4 IgM monoclonal gammopathy of uncertain significance D47.2 Iron deficiency anemia secondary to inadequate dietary iron intake D50.8 Anemia type: iron deficiency Iron deficiency anemia type: inadequate dietary iron intake Inflammatory arthritis M19.90 Physical deconditioning R53.81
[2025-01-17] MEDS: acetaminophen 325 mg Tablet 650 MG PO (20:36)
[2025-01-18] VITALS (36 sets, daily range): BP systolic 95–182; BP diastolic 42–90; PULSE 67–97; RESP 12–26; TEMP 36.5–36.8; O2SAT 90–99
[2025-01-18 05:24] LABS: Basophils # 0.1 10^3/uL (0.0-0.1); Basophils % 0.8 %; Eosinophils # 0.2 10^3/uL (0.0-0.8); Eosinophils % 2.8 %; Hematocrit 26.7 % (36-47); Lymphocytes # 1.4 10^3/uL (0.8-4.8); Lymphocytes % 17.5 %; Mean Corpuscular HGB Conc 32.6 g/dL (30-55); Mean Corpuscular Hemoglobin 29.3 pg (27-33); Mean Corpuscular Volume 89.9 fl (85-98); Mean Platelet Volume 11.4 fL (7.4-10.4); Monocytes # 0.7 10^3/uL (0.2-0.9); Monocytes % 8.3 %; Neutrophils # 5.49 10^3/uL (1.8-7.7); Neutrophils % 70.1 %; Nucleated Red Blood Cells % 0 %; Platelet Count 143 10^3/cmm (157-399); Red Blood Count 2.97 10^6/uL (3.85-5.65); Red Cell Distribution Width 13.4 % (12.1-15.1); White Blood Count 7.83 10^3/uL (3.29-11.43)
[2025-01-18] MEDS: heparin 5,000 unit/mL INJ 1 mL 5000 UNIT SUBCUT ×2 (05:40→17:38)
[2025-01-18 05:56] LABS: Anion Gap 14.9 (5-19); Blood Urea Nitrogen 48 mg/dL (8-23); Carbon Dioxide 26 mmol/L (22-29); Chloride 103 mmol/L (98-107); Creatinine Clr Calc Pharmacy 23.3377; Glomerular Filtration Rate 15.6 mL/min (90-130); Glucose 118 mg/dL (65-115); Osmolality Calculated 304 mOsm/kg (285-295); Potassium 3.9 mmol/L (3.5-5.1); Sodium 140 mmol/L (136-145)
[2025-01-18 09:07] LABS: Glucose Point of Care 161 mg/dL (70-110)
[2025-01-18] MEDS: TORSEmide 20 mg Tablet 100 MG PO (09:23)
[2025-01-18] MEDS: potassium chloride ER 10 mEq Tablet PO (09:24)
[2025-01-18] MEDS: montelukast sodium 10 mg Tablet PO (09:24)
[2025-01-18] MEDS: hyDRALAzine 25 mg Tablet PO ×2 (09:24→15:56)
[2025-01-18] MEDS: pantoprazole DR 40 mg Tablet PO (09:24)
[2025-01-18] MEDS: sennosides-docusate Tablet 1 TAB PO (09:25)
[2025-01-18] MEDS: isosorbide mononitrate ER 60 mg Tablet 120 MG PO (09:25)
[2025-01-18] MEDS: insulin glargine 100 units/1 mL 50 UNIT SUBCUT (09:30)
--- NOTE | 2025-01-18 10:20 | PM.CONSULT ---
Providers/Reason For Consult Consulting Physician/Specialty*: [facility]/Nephrology Reason for Consult*: [facility]Nephrology Requesting Physician: Acute on CKD Attending Physician: Davida Fischer MD Primary Care Provider: Denny Padgett MD History of Present Illness History of Present Illness Jennifer Novak is a 69 year old female patient is a 69-year-old female with multiple medical problems including diastolic CHF, chronic kidney disease with a baseline creatinine around 2, chronic respiratory failure O2 dependent on BiPAP at night, she had required temporary dialysis about a year ago. She was sent to the ER from the cardiology clinic due to high blood pressure and also complained of chest pain. Patient takes torsemide and losartan at home. Also has elevated troponins. Patient presents with stable 75 but has fluctuated from 1 40-220 systolic since the hospital stay. Creatinine on presentation was 2.2 worsened to 3.0 today. Pt followed by [facility] . Review of Systems Narrative: Negative Medications/Allergies Home Medications ?Medication ?Instructions ?Recorded ?Confirmed ?Last Taken ?Type acetaminophen 325 mg tablet 325 - 650 mg PO Q6H PRN Pain 12/13/21 01/16/25 Unknown History nitroglycerin 0.4 mg sublingual 0.4 mg sublingual Q5M PRN Chest 11/25/23 01/16/25 Unknown Rx tablet (Nitrostat) Pain #50 tabs insulin lispro 100 unit/mL See Rx Instructions SUBCUT 02/28/24 01/16/25 Unknown Rx subcutaneous pen (Humalog KwikPen .COMPLEX #15 mL (U-100) Insulin) fluoxetine 20 mg capsule 20 mg PO BID #60 caps 04/25/24 01/16/25 Unknown Rx isosorbide mononitrate 120 mg 120 mg PO QDAY #30 tabs 04/25/24 01/16/25 Unknown Rx tablet,extended release 24 hr losartan 100 mg tablet (Cozaar) 100 mg PO DAILY #30 tabs 04/25/24 01/16/25 Unknown Rx pantoprazole 40 mg tablet,delayed 40 mg PO DAILY #30 tabs 04/25/24 01/16/25 Unknown Rx release sennosides 8.6 mg-docusate sodium 1 tab-cap PO BID #60 tabs 04/25/24 01/16/25 Unknown Rx 50 mg tablet (Senokot-S) hydralazine 25 mg tablet 25 mg PO BID #60 tabs 07/09/24 01/16/25 Unknown Rx insulin degludec 200 unit/mL (3 70 unit SUBCUT DAILY 07/09/24 01/16/25 Unknown History mL) subcutaneous pen (Tresiba FlexTouch U-200 insulin) potassium chloride 10 mEq 10 meq PO DAILY 07/09/24 01/16/25 Unknown History capsule,extended release leflunomide 10 mg tablet 10 mg PO DAILY #90 tabs 07/16/24 01/16/25 Unknown Rx albuterol sulfate 90 mcg/actuation 2 puff inhalation Q4H 01/16/25 01/16/25 Unknown History aerosol inhaler desloratadine 5 mg tablet 5 mg PO DAILY 01/16/25 01/16/25 Unknown History hydroxyzine pamoate 50 mg capsule 50 mg PO QPM 01/16/25 01/16/25 Unknown History montelukast 10 mg tablet 10 mg PO DAILY 01/16/25 01/16/25 Unknown History torsemide 100 mg tablet 100 mg PO DAILY 01/16/25 01/16/25 Unknown History zonisamide 25 mg capsule 25 mg PO Q12H 01/16/25 01/16/25 Unknown History Allergies Allergy/AdvReac Type Severity Reaction Status Date / Time acetaminophen (From [facility]) Allergy Unknown Verified 01/16/25 14:01 bacitracin Allergy ADR-Nausea Verified 01/16/25 14:01 codeine Allergy ADR-Nausea Verified 01/16/25 14:01 hydrocodone (From [facility]) Allergy Unknown Verified 01/16/25 14:01 Latex, Natural Rubber Allergy Unknown Verified 01/16/25 14:01 morphine Allergy ADR-Itching Verified 01/16/25 14:01 neomycin (From Neosporin Allergy ALGY-Rash Verified 01/16/25 14:01 ([id number])) polymyxin B (From Neosporin Allergy ALGY-Rash Verified 01/16/25 14:01 ([id number])) Sulfa (Sulfonamide Allergy ADR-Nausea Verified 01/16/25 14:01 Antibiotics) sulfamethoxazole (From Allergy Unknown Verified 01/16/25 14:01 Bactrim) trimethoprim (From Bactrim) Allergy Unknown Verified 01/16/25 14:01 spironolactone AdvReac Severe Temporary Verified 01/16/25 14:01 blindness Current Medications Generic Name Dose Route Start Last Admin Trade Name Santana PRN Reason Stop Dose Admin Acetaminophen 500 mg 01/16/25 17:38 01/17/25 02:38 Acetaminophen 500 Mg Tablet PO 500 mg Q4H PRN Administration fever Acetaminophen 650 mg 01/17/25 12:52 01/17/25 20:36 Acetaminophen 325 Mg Tablet PO 650 mg Q6H PRN Administration Mild/Mod Pain Or Temp >/= 101 Heparin Sodium (Porcine) 5,000 unit 01/16/25 17:45 01/18/25 05:40 Heparin 5,000 Unit/Ml Inj 1 Ml SUBCUT 5,000 unit Q12H HERMINIO Administration Hydralazine HCl 25 mg 01/16/25 21:00 01/18/25 09:24 Hydralazine 25 Mg Tablet PO 25 mg TID HERMINIO Administration Insulin Glargine 50 unit 01/17/25 09:00 01/18/25 09:30 Insulin Glargine 100 Units/1 Ml SUBCUT 50 unit DAILY HERMINIO Administration Isosorbide Mononitrate 120 mg 01/17/25 09:00 01/18/25 09:25 Isosorbide Mononitrate Er 60 Mg Tablet PO 120 mg DAILY HERMINIO Administration Montelukast Sodium 10 mg 01/17/25 09:00 01/18/25 09:24 Montelukast Sodium 10 Mg Tablet PO 10 mg DAILY HERMINIO Administration Pantoprazole Sodium 40 mg 01/17/25 09:00 01/18/25 09:[address] 40 Mg Tablet PO 40 mg DAILY HERMINIO Administration Potassium Chloride 10 meq 01/17/25 09:00 01/18/25 09:24 Potassium Chloride Er 10 Meq Tablet PO 10 meq DAILY HERMINIO Administration Senna/Docusate Sodium 1 tab 01/17/25 09:00 01/18/25 09:25 Sennosides-Docusate Tablet PO 1 tab DAILY HERMINIO Administration Torsemide 100 mg 01/17/25 09:00 01/18/25 09:23 Torsemide 20 Mg Tablet PO 100 mg DAILY HERMINIO Administration PFSH Acute PFSH: Medical History Chronic diastolic heart failure Gastric ulcer H. pylori ruled out at [facility] Situational anxiety Benign hypertension Type 2 diabetes mellitus with diabetic chronic kidney disease Hospital-acquired pneumonia Acute exacerbation of CHF (congestive heart failure) Acute on chronic renal failure Diabetic gastroparesis Hypoxia Anemia Positive GIFTY (antinuclear antibody) Frequent falls Muscle spasm High risk medication use Seronegative rheumatoid arthritis of both hands Diabetic foot Hip pain, left Atypical chest pain IgM monoclonal gammopathy of uncertain significance Intermittent atrial fibrillation Chest pain Edema CKD (chronic kidney disease) stage 3, GFR 30-59 ml/min Urinary disorder Anxiety Pneumonitis Left lumbar radiculopathy Back pain Lymph edema Fracture of distal end of fibula Syncope and collapse Essential tremor Mobility impaired IBS (irritable bowel syndrome) Inflammatory arthritis Chronic back pain Chronic major depressive disorder Peripheral neuropathy Polyarthralgia Edema, peripheral Noncompliance with diabetes treatment Not consistent with diet Near syncope Monoclonal gammopathy Major depression Diabetic neuropathy associated with type 2 diabetes mellitus Severe obstructive sleep apnea Mild cognitive impairment with memory loss Dietary noncompliance Atrial flutter Coronary artery fistula Chronic obstructive pulmonary disease, unspecified Obesity CKD (chronic kidney disease) Fibromyalgia Diverticulosis Environmental and seasonal allergies Vitamin D deficiency Surgical History History of left heart catheterization (2017) No significant obstructive coronary disease Hx of esophagogastroduodenoscopy Hx of colonoscopy History of tonsillectomy History of section 4 times History of cholecystectomy (1993) History of hysterectomy (1997) with BSO Family History Brother Bleeding disorder CAD (coronary artery disease) Father CAD (coronary artery disease) Chronic kidney disease (CKD) Mother CAD (coronary artery disease) Cancer Diabetes Family/Other Cancer Other Congestive heart failure (CHF) Heart disease Hypertension Denies family history of Clotting disorder Dementia Suicide Anesthesia complication Lung disease Stroke Social History Smoking and tobacco/nicotine status: unknown if used tobacco/nicotine Quit status (tobacco/nicotine): has quit using Year quit tobacco: 1990 Former quit date comment: smoked 20+ years Second hand smoke exposure: No Alcohol intake: never Substance/Drug Use: never Adopted: No Caregiver/support person: Yes Lives independently: No Household members: children and other Details: Son, sometimes grandson Housing: House Marital status: Single service: No Current occupational status: disabled Do you think of yourself as: Straight/Heterosexual Current gender identity: Female Vitals/I&O/Wt Last Vital Signs Temp 97.7 F 01/18/25 07:54 Pulse 85 01/18/25 09:07 Resp 16 01/18/25 09:07 BP 167/62 01/18/25 07:54 Pulse Ox 92 01/18/25 09:07 O2 Del Method Room Air 01/18/25 09:07 FiO2 21 01/17/25 01:43 01/17/25 01/18/25 01/18/25 22:59 06:59 14:59 Intake Total 360 / 1200 100 / 1300 120 / 120 Output Total 0 / 0 Balance 360 / 1200 100 / 1300 120 / 120 Weight last 48 hrs Weight 124.5 kg Weight 55.338 kg Weight 121 kg Weight 123.831 kg Physical Exam Narrative: awake , alert PEERLA s1s2 RRR per report Lungs clear per report No edema Data 01/18/25 05:02 01/18/25 05:02 A&P Assessment and plan (1) Acute kidney injury superimposed on chronic kidney disease: 1. Acute on chronic kidney disease stage IV: Baseline creatinine in the 2 range. Patient followed by [facility] and last seen them 2 weeks ago. Patient has a creatinine of 2.2 on presentation that has gotten worse up to 3.0 today I suspect that this is likely hemodynamic mediated due to rapidly fluctuating blood pressures anywhere from 110,s to 220s since presentation. No contrast exposure Also patient reports poor p.o. intake for the last couple of days, will give gentle fluids today and monitor renal function if creatinine is stable tomorrow can DC with nephrology follow-up 2. chronic respite failure, volume status stable, gentle fluids as above, patient on BiPAP at night 3. Anemia: Secondary to CKD likely, BOUCHRA as outpatient 4. Hypertension: Poorly controlled and fluctuating rapidly, adjusting BP meds, added nifedipine and increased hydralazine dose. Patient evaluated using audiovisual cart. Time spent 40 minutes. PDMP PDMP Reviewed: Not Reviewed Consult Attestations Medical Necessity Statement: Per medicine team Coding Level of Care Code Acute Code for Chg Fwd Diagnoses Acute kidney injury superimposed on chronic kidney disease N17.9; N18.9
[2025-01-18] MEDS: sodium chloride 0.9% 1,000 ML 100 ML IV (10:46)
[2025-01-18] MEDS: NIFEdipine ER (24 hr) 30 mg Tablet 60 MG PO (10:46)
[2025-01-18 11:22] LABS: Glucose Point of Care 187 mg/dL (70-110)
[2025-01-18] MEDS: insulin lispro 100 unit/1 mL SUBCUT (11:30)
--- NOTE | 2025-01-18 12:39 | ECG_ITS ---
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 [id number] [id number]
[2025-01-18] MEDS: hyDRALAzine 20 mg/mL INJ 1 mL 10 MG IVP (12:46)
[2025-01-18] MEDS: carvedilol 6.25 mg Tablet PO ×2 (13:09→17:38)
[2025-01-18] MEDS: nitroglycerin 0.4 mg sublingual Tablet SUBLINGUAL (13:29)
--- NOTE | 2025-01-18 13:33 | XR_ITS ---
WS: [id number] Portable AP upright chest, 01/18/2025 Clinical Data: sob Comparison: Portable chest, 01/16/2025 Findings: No nodules, masses or effusions are seen. The heart is slightly enlarged. The right cardiophrenic opacity has cleared. The pulmonary vascularity is not increased. No pneumonia or pneumothorax is seen. The aortic arch and descending thoracic aorta show calcification and mild tortuosity. There are monitor leads on the chest wall. XR/XR chest 1V portable [id number] Impression: Atherosclerosis and cardiomegaly.
[2025-01-18 13:40] LABS: ABG PCO2 31.4 mmHg (35-45); Alveolar-Arterial Oxygen Gradi 6.1 mmHg (5-10); Base Excess ABG 5.2 mmol/L (-2.0-2.0); Blood Gas Allen Test Pos; Blood Gas Operator Identificat WALCI; Blood Gas Sample Site Radial, left; Blood Gas Sample Type Arterial; Carboxyhemoglobin 0.3 %THgb (0.4-20.1); HCO3 ABG 27.6 mmol/L (22-26); HGB O2 Sat 92.4 % (95-100); Ionized Calcium Level - ABG 1.2 mmol/L (1.1-1.4); Methemoglobin 1.2 % (0.4-1.5); Oxygen Device ROOM AIR; Oxygen Saturation ABG 93.8; PO2 ABG 61.9 mmHg (80.0-100.0); PO2 FiO2 Ratio Arterial Blood 294; Potassium Level - ABG 3.8 mmol/L (3.5-5.0); Total Hemoglobin 9.8 g/dL (12-16)
[2025-01-18 13:41] LABS: ABG PH Result 7.55 (7.35-7.45)
[2025-01-18] MEDS: nitroglycerin drip 50 MG/250 ML PREMIX IV (13:43)
--- NOTE | 2025-01-18 14:06 | XR_ITS ---
WS: [id number] Portable AP upright chest, 01/18/2025, 1429 hours Clinical Data: Respiratory Distress/ Rapid Response Comparison: Portable chest, 01/18/2025, 1340 hours Findings: No nodules, masses or effusions are seen. The heart is normal. The pulmonary vascularity is not increased. No pneumonia or pneumothorax is seen. The aortic arch and descending thoracic aorta show mild tortuosity. There are monitor leads on the chest wall. XR/XR chest 1V portable [id number] Impression: No change from previous chest x-ray.
--- NOTE | 2025-01-18 14:06 | PC.NURSE ---
pt c/o chest discomfort rating pain 5/10... and pt's bp elevated to 202/100...ekg obtained and hydralazine 10 mg given iv push at [address] caballero notified of status.dr caballero ordered coreg 6.125 mg and this was given as ordered.pt then began c/o substernal chest pain radiating through to back and into left arm.pt becoming very anxious.dr caballero called..recieved order to give sl ntg and mso4 ivp...and dr said she was on her way.pt given ntg sl but refused mso4 iv.pt quickly became very sob...though o2 sats remained 96-97%.dr caballero arrived and decision to call rapid response made..called at 1335.lab work,pcxr obtained.ntg drip started and bustillo catheter placed.report phoned to destiny yusuf in icu.transferred to icu 2 at 1400.
--- NOTE | 2025-01-18 14:09 | PM.PN ---
Subjective Subjective: Morning rounds Earlier this morning patient seen she complained of pain in her left shoulder. She states she always sleeps on her left side. She says every time she moves her shoulder it hurts more and the pain goes down her elbow. However staying put in 1 place the pain is not there. However sometimes pain is present even without movement and she is unsure. The pain is not associated with shortness of breath nausea or diaphoresis. Patient requesting to go home today as she says she feels really good and feels better. However I discussed with her that I will talk to the specialist and will get back to her. Blood pressure this morning 160s over 67. Creatinine 3.0 today. It was 2.2 yesterday. She was seen by nephrology this morning IV fluids ordered. Concern for ROSEMARIE secondary to hypertensive urgency. Blood pressure has been fluctuating. Rapid Response Around 130 patient developed chest pain acutely and stated that she could not breathe. I went bedside to evaluate her and we called a rapid response. Stat ABG obtained 7.55/31.4/61.9. Checks x-ray ordered. Lasix 40 IV x 1 given. Suspicion of flash pulmonary edema. Lungs are mainly clear to auscultation at the bases however central congestion cannot be ruled out. BiPAP was put on immediately and patient stated that she could breathe better with it. Patient also complained of severe chest pain on the left side of her chest radiating down her left arm and radiating up the jaw. Patient's family present on the phone. They are requesting transfer to [place]. However I discussed with them that patient is unstable right now with her blood pressure being 200 systolic and she must be stabilized prior to initiating any kind of transfer. We will be starting a nitroglycerin drip and transferring patient to the ICU for closer monitoring. IV fluids have been stopped. Confirmed with nursing staff patient only got 200 cc total which were initially being given for her ROSEMARIE. EKG reviewed. Possible T wave inversions in V1. Cardiology was consulted. Dr. Art will see her in consultation. Troponins have been ordered. Serial EKGs have been ordered. Family is requesting transfer to [place] today. Chart review: Patient does have a history of chronic heart failure with preserved ejection fraction. Patient has had multiple admissions with decompensated heart failure. Patient has had a stress test in 2023 with the following results: 1. Myocardial perfusion imaging revealing moderate area of persistent decreased tracer uptake involving the inferolateral, anterolateral and apical lateral segments suggesting myocardial scarring versus attenuation artifact. 2. Normal LV ejection fraction of 61%. 3. LV wall motion analysis revealing no gross wall motion abnormalities. 4. Normal LV volume. No similar previous studies are available for comparison On 09/18/18 she underwent coronary angiography secondary to chest pain and abnormal nuclear imaging stress test. She was found to have no significant disease in the left main, LAD, circumflex or RCA. One of the diagonal branches of the LAD was found to have a fistulous communication with the LV. LVEF was 55%, LVEDP was 14 mmHg. In December 2023 patient was intubated secondary to respiratory failure secondary to fluid overload due to acute on chronic diastolic heart failure and acute on chronic kidney disease. Patient was a difficult wean from the ventilator. She does have a history obstructive sleep apnea as well. She did receive dialysis during that hospital stay. Patient was eventually transferred to LTAC. Vitals/I&O/Wt Last Vital Signs Temp 97.8 F 01/18/25 12:00 Pulse 93 01/18/25 13:45 Resp 17 01/18/25 12:00 BP 180/80 01/18/25 12:00 Pulse Ox 97 01/18/25 13:45 O2 Del Method Room Air 01/18/25 12:00 FiO2 21 01/18/25 13:45 01/17/25 01/18/25 01/18/25 22:59 06:59 14:59 Intake Total 360 / 1200 100 / 1300 120 / 120 Output Total 0 / 0 Balance 360 / 1200 100 / 1300 120 / 120 Weight last 48 hrs Weight 124.5 kg Weight 55.338 kg Weight 121 kg Physical Exam Narrative: Morning rounds General: Alert oriented x3, patient seen sitting in up in bed HEENT: Normocephalic, atraumatic, EOMI, Cardio: Regular rate rhythm, normal S1-S2, Respiratory: Good bilateral air entry, no wheezes no rhonchi appreciated GI: Abdomen soft, nontender, nondistended, bowel sounds + Behavior: Appropriate and cooperative Extremities: non pitting edema Rapid response Appears to be in acute distress. Holding left side of her shoulder stating she is in chest pain. States I just cannot breathe. Appears to be tearful and anxious and states I cannot breathe. Immediately BiPAP put back on. Lungs generally clear to auscultation at bases however central congestion cannot be ruled out at this time. Family present on the phone. Blood pressure 208/110. Nitroglycerin drip being started. 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: with group home use Chronic kidney disease stage: stage 4 (severe) Qualified Code(s): E11.22 - Type 2 diabetes mellitus with diabetic chronic kidney disease; N18.4 - Chronic kidney disease, stage 4 (severe); 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.4 - 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 (current) use of insulin (10) Gastric ulcer: (11) IBS (irritable bowel syndrome): (12) IgM monoclonal gammopathy of uncertain significance: (13) Anemia: Qualifiers: Anemia type: iron deficiency Iron deficiency anemia type: inadequate dietary iron intake Qualified Code(s): D50.8 - Other iron deficiency anemias (14) Inflammatory arthritis: (15) Physical deconditioning: (16) History of obstructive sleep apnea: (17) Chronic obstructive pulmonary disease, unspecified: Qualifiers: COPD type: unspecified COPD Qualified Code(s): J44.9 - Chronic obstructive pulmonary disease, unspecified Plan hypertensive urgency MAP reduction 25% in next 6 to 8 hours Improved blood pressure with use of hydralazine and labetalol Patient complaining of headache, requested CT head with did not show any infarctive or hemorrhagic changes Patient not on optimal antihypertensive regimen, considering chronic kidney disease and diabetes, patient is only taking losartan and torsemide At this point I will add hydralazine, isosorbide and discontinue losartan, continue torsemide Patient follows up, nephrology as outpatient as well Headache: No sign of meningitis or stroke, CT head unremarkable Chest pain: Atypical if troponin trending down EKG no active infective or ischemic changes No active chest pain at the time of evaluation Chronic hypoxia uses 2 to 3 L of oxygen during the day and BiPAP at night Diastolic CHF: No acute decompensation Anxiety: Can use Xanax on as-needed basis Full code Cardiac diet/consistent carb with sliding scale of insulin DVT prophylaxis: Heparin 01/17/2025 BP still high, continue on new med regimen and monitor will discuss with cardiology complains of intermittent chest pain, delta trop negative at 6 hours EKG without acute ischemic changes 01/18/2025 #Hypertensive emergency with evidence of endorgan damage #ROSEMARIE on CKD most likely secondary to above #Chest pain secondary to hypertensive emergency #Possible flash pulmonary edema secondary to hypertensive emergency #Acute on chronic diastolic heart failure exacerbation #History of anxiety #Abnormal stress test #History of decompensated heart failure #History of being on dialysis transiently #Diabetes mellitus insulin-dependent ? Blood pressure has been fluctuating. He was starting to improve this morning however patient has evidence of hypertensive emergency with chest pain, ROSEMARIE on CKD and possible flash pulmonary edema ? Lasix 40 IV x 1 was given ? Placed on nitroglycerin drip ? Cardiology consulted. We will await recommendations ? Check echocardiogram ? Nephrology consulted. IV fluids were added this morning by nephrology for ROSEMARIE however we have discontinued that at this time. In the past patient has required dialysis in December 2023 and at that time was admitted with acute respiratory failure secondary to fluid overload and acute kidney injury. Patient was eventually transferred to LTAC ? Serial EKGs ordered, troponin series ordered ? Will order Ativan 0.5 IV x 1. ? Continue BiPAP at this time ? Patient on hydralazine 25 3 times daily, Imdur 120, add Coreg 6.25 twice daily ? Patient on torsemide 100 daily at home. ? Will discuss with cardiology and nephrology regarding further recommendations. ? This morning when seen in morning rounds chest pain appeared to be more of musculoskeletal in nature however acute chest pain during rapid response most likely cardiac in origin secondary to high blood pressure. She has had an abnormal stress test last year. -Will transfer to ICU at this time and continue to monitor blood pressure. Not to lower more than 170 systolic at this time. Patient was offered morphine 2 mg IV x 1 as well however she refused to take that at this time. -Family is requesting transfer to [place] however patient is not stable for transfer at this time. I discussed with family that she needs to be stabilized first and then we can discuss the transfer. They understand and agree with the plan. Full code DVT prophylaxis: Heparin SQ twice daily Patient was seen twice today in person including during the rapid response. Time spent documenting, reviewing previous chart, talking to cardiology, coordinating with nursing staff and speaking to family on the phone. PDMP PDMP Reviewed: Not Reviewed Attestations Medical Necessity Statement*: Will need ICU stay nitroglycerin drip for hypertensive emergency. Critical Care Time: The high probability of a clinically significant, sudden or life threatening deterioration of the patient's [respiratory, cardiovascular, renal, neurological] system(s) required my full and direct attention, intervention and personal management. The critical care time is as shown. This time is in addition to time spent performing any reported procedures but includes the following: [x] Data and vital sign review and interpretation [x] Patient assessment, examination and intervention [x] Documentation [x] Medication orders and management Critical Care Time (min): 65 Coding Level of Care Code Acute Code for Chg Fwd Diagnoses Hypertensive emergency I16.1 ROSEMARIE (acute kidney injury) N17.9 Acute on chronic diastolic heart failure I50.33 Flash pulmonary edema J81.0 CKD (chronic kidney disease) stage 4, GFR 15-29 ml/min N18.4 Chest pain R07.9 High risk medication use Z79.899 Situational anxiety F41.8 Type 2 diabetes mellitus with stage 4 chronic kidney disease, with long-term current use of insulin E11.22; N18.4; Z79.4 Diabetes mellitus group home insulin use: with ferry terminal supervisor use Chronic kidney disease stage: stage 4 (severe) Gastric ulcer K25.9 IBS (irritable bowel syndrome) K58.9 IgM monoclonal gammopathy of uncertain significance D47.2 Iron deficiency anemia secondary to inadequate dietary iron intake D50.8 Anemia type: iron deficiency Iron deficiency anemia type: inadequate dietary iron intake Inflammatory arthritis M19.90 Physical deconditioning R53.81 History of obstructive sleep apnea Z86.69 Chronic obstructive pulmonary disease, unspecified COPD type J44.9 COPD type: unspecified COPD
[2025-01-18 14:25] LABS: Basophils # 0.1 10^3/uL (0.0-0.1); Basophils % 0.7 %; Eosinophils # 0.2 10^3/uL (0.0-0.8); Eosinophils % 2.3 %; Hematocrit 28.8 % (36-47); Lymphocytes # 1.6 10^3/uL (0.8-4.8); Lymphocytes % 19.3 %; Mean Corpuscular HGB Conc 32.6 g/dL (30-55); Mean Corpuscular Hemoglobin 28.9 pg (27-33); Mean Corpuscular Volume 88.6 fl (85-98); Mean Platelet Volume 11.6 fL (7.4-10.4); Monocytes # 0.6 10^3/uL (0.2-0.9); Monocytes % 7.3 %; Neutrophils # 5.75 10^3/uL (1.8-7.7); Neutrophils % 70.2 %; Nucleated Red Blood Cells % 0 %; Platelet Count 168 10^3/cmm (157-399); Red Blood Count 3.25 10^6/uL (3.85-5.65); Red Cell Distribution Width 13.4 % (12.1-15.1)
[2025-01-18] MEDS: FUROsemide 10 mg/mL SDV 4mL 40 MG IVP (14:26)
--- NOTE | 2025-01-18 14:29 | USCV_ITS ---
Jennifer Novak Age: 69 Gender: F : 1955 Exam Date: 01/18/2025 16:04 Ordering Phys: Davida Fischer MD Technologist: Gerald Ladd Exam Location: [facility] [place] Indication: chest pain BP: 180 / 80 HR: 93 Rhythm: Sinus Technical Quality: Adequate MEASUREMENTS (Male / Female) Normal Values 2D ECHO LV Diastolic Diameter PLAX 4.6 cm 4.2 - 5.9 / 3.9 - 5.3 cm IVS Diastolic Thickness 1.4 cm 0.6 - 1.0 / 0.6 - 0.9 cm IVS Systolic Thickness 2.5 cm LVPW Diastolic Thickness 2.2 cm 0.6 - 1.0 / 0.6 - 0.9 cm LVPW Systolic Thickness 2.4 cm LVOT Diameter 2.0 cm LV Ejection Fraction 2D Teich 56.1 % LV Ejection Fraction MOD 4C 68.1 % LV Ejection Fraction MOD 2C 49.3 % LV Ejection Fraction 2C AL 50.8 % LA Diameter 3.8 cm RA Systolic Volume 4C AL 29.0 ml RA Systolic Volume 4C MOD 27.6 ml LA Sys Volume AL 40.3 cm cubed LA Sys Volume Index AL 16.6 cm cubed/m squared Aorta at Sinotubular Diameter 2.6 cm IVC Diameter 1.8 cm M-MODE LA Ao Ratio MM 1.8 AV Cusp Separation MM 1.2 cm DOPPLER AV Peak Velocity 213.0 cm/s MV Peak Velocity 138.0 cm/s MV Area PHT 9.1 cm squared Mitral E to A Ratio 0.6 TV Peak Velocity 205.5 cm/s TR Peak Velocity 209.0 cm/s TR Peak Gradient 17.5 mmHg TR Mean Velocity 157.0 cm/s TR Mean Gradient 11.3 mmHg TR Velocity Time Integral 49.5 cm PV Peak Velocity 115.0 cm/s RV Ejection Time 0.3 s FINDINGS Left Ventricle Mild concentric left ventricular hypertrophy. Normal left ventricular size, systolic function and wall thickness, with no regional wall motion abnormalities. Estimated LVEF is normal 60%. Right Ventricle Normal right ventricular size and systolic function. Right Atrium Normal right atrial size. Left Atrium Normal left atrial size. Mitral Valve Structurally normal mitral valve. Mild mitral valve regurgitation. Aortic Valve Thickened aortic valve. No significant aortic stenosis. Tricuspid Valve Structurally normal tricuspid valve. Pulmonic Valve Structurally normal pulmonic valve. Trace pulmonary valve regurgitation. Pericardium No pericardial effusion. Aorta Normal size aortic root and proximal ascending aorta. IVC Normal IVC dimension with <50% respiratory change of the inferior vena cava. CONCLUSIONS Mild concentric LVH. Normal LV systolic function. Estimated LVEF 60%. Normal RV size and normal RV systolic function. No significant valvular abnormality noted. Normal right heart and pulmonary pressures. Ramirez Art MD (Electronically Signed) Final Date: 18 January 2025 17:41 S
--- NOTE | 2025-01-18 14:32 | PC.NURSE ---
This nurse responded to rapid response, Dr. Fischer at bedside, patient c/o of SOB place on bipap per RT, recieved v.o. for lasix 40 mg and nitro drip, Foly placed and transported to ICU
[2025-01-18 14:35] LABS: Lactic Sepsis W/Reflex 1.3 mmol/L (0.5-2.2)
[2025-01-18 14:44] LABS: Alanine Aminotransferase 11 U/L (0-33); Albumin Level 3.5 g/dL (3.5-5.2); Alkaline Phosphatase 128 U/L (35-105); Anion Gap 16.1 (5-19); Aspartate Amino Transferase 16 U/L (0-32); Blood Urea Nitrogen 47 mg/dL (8-23); Calcium 9.4 mg/dL (8.5-10.5); Carbon Dioxide 24 mmol/L (22-29); Chloride 104 mmol/L (98-107); Creatinine Clr Calc Pharmacy 25.9308; Globulin 2.5 g/dL (1.3-4.6); Glomerular Filtration Rate 17.6 mL/min (90-130); Glucose 94 mg/dL (65-115); Magnesium 2.1 mg/dL (1.7-2.3); Osmolality Calculated 302 mOsm/kg (285-295); Phosphorus 3.4 mg/dL (2.5-4.5); Potassium 4.1 mmol/L (3.5-5.1); Sodium 140 mmol/L (136-145); Total Bilirubin 0.2 mg/dL (0.15-1.2)
[2025-01-18] MEDS: LORazepam 2 mg/mL INJ 1 mL 0.5 MG IVP (14:45)
[2025-01-18 14:51] LABS: Procalcitonin 0.15 ng/mL (0-0.5)
[2025-01-18 14:58] LABS: Troponin(5th) Baseline 45 ng/L (0-10)
--- NOTE | 2025-01-18 15:03 | ECG_ITS ---
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 [email or web address]
--- NOTE | 2025-01-18 15:26 | PM.CONSULT ---
Providers/Reason For Consult Consulting Physician/Specialty*: Hospitalist Reason for Consult*: Elevated blood pressures and acute pulmonary edema Requesting Physician: Dr. Fischer Attending Physician: Davida Fischer MD Primary Care Provider: Denny Padgett MD History of Present Illness History of Present Illness Jennifer Novak is a 69 year old female with a known history of chronic hypertension, which has been poorly controlled, kidney disease required hemodialysis in the past was in the hospital with acute on chronic renal failure and uncontrolled hypertension. This morning while on the floor she developed relatively sudden shortness of failure, tachypnea in the setting of significant significantly elevated blood pressure. She also complained of some chest pain during this episode. Currently patient is in ICU being treated with BiPAP, IV diuretics and intravenous nitro with very good response so far. EKG during this episode showed sinus tachycardia with no acute ischemic changes compared to the old EKGs. At present patient is much more comfortable his blood pressure now 171/102, pulse 86/min regular, O2 saturation 96% on BiPAP. Patient has already put on about 1 L of urine since she received him 40 mg intravenous Lasix. No chest pain at present. Review of Systems Narrative: Detailed systemic review remarkable for worsening shortness of air and poorly controlled blood pressure. The chest pain has been intermittent and very atypical. Overall patient's mobility is very limited. Medications/Allergies Home Medications ?Medication ?Instructions ?Recorded ?Confirmed ?Last Taken ?Type acetaminophen 325 mg tablet 325 - 650 mg PO Q6H PRN Pain 12/13/21 01/16/25 Unknown History nitroglycerin 0.4 mg sublingual 0.4 mg sublingual Q5M PRN Chest 11/25/23 01/16/25 Unknown Rx tablet (Nitrostat) Pain #50 tabs insulin lispro 100 unit/mL See Rx Instructions SUBCUT 02/28/24 01/16/25 Unknown Rx subcutaneous pen (Humalog KwikPen .COMPLEX #15 mL (U-100) Insulin) fluoxetine 20 mg capsule 20 mg PO BID #60 caps 04/25/24 01/16/25 Unknown Rx isosorbide mononitrate 120 mg 120 mg PO QDAY #30 tabs 04/25/24 01/16/25 Unknown Rx tablet,extended release 24 hr losartan 100 mg tablet (Cozaar) 100 mg PO DAILY #30 tabs 04/25/24 01/16/25 Unknown Rx pantoprazole 40 mg tablet,delayed 40 mg PO DAILY #30 tabs 04/25/24 01/16/25 Unknown Rx release sennosides 8.6 mg-docusate sodium 1 tab-cap PO BID #60 tabs 04/25/24 01/16/25 Unknown Rx 50 mg tablet (Senokot-S) hydralazine 25 mg tablet 25 mg PO BID #60 tabs 07/09/24 01/16/25 Unknown Rx insulin degludec 200 unit/mL (3 70 unit SUBCUT DAILY 07/09/24 01/16/25 Unknown History mL) subcutaneous pen (Tresiba FlexTouch U-200 insulin) potassium chloride 10 mEq 10 meq PO DAILY 07/09/24 01/16/25 Unknown History capsule,extended release leflunomide 10 mg tablet 10 mg PO DAILY #90 tabs 07/16/24 01/16/25 Unknown Rx albuterol sulfate 90 mcg/actuation 2 puff inhalation Q4H 01/16/25 01/16/25 Unknown History aerosol inhaler desloratadine 5 mg tablet 5 mg PO DAILY 01/16/25 01/16/25 Unknown History hydroxyzine pamoate 50 mg capsule 50 mg PO QPM 01/16/25 01/16/25 Unknown History montelukast 10 mg tablet 10 mg PO DAILY 01/16/25 01/16/25 Unknown History torsemide 100 mg tablet 100 mg PO DAILY 01/16/25 01/16/25 Unknown History zonisamide 25 mg capsule 25 mg PO Q12H 01/16/25 01/16/25 Unknown History Allergies Allergy/AdvReac Type Severity Reaction Status Date / Time acetaminophen (From [place]) Allergy Unknown Verified 01/16/25 14:01 bacitracin Allergy ADR-Nausea Verified 01/16/25 14:01 codeine Allergy ADR-Nausea Verified 01/16/25 14:01 hydrocodone (From [place]) Allergy Unknown Verified 01/16/25 14:01 Latex, Natural Rubber Allergy Unknown Verified 01/16/25 14:01 morphine Allergy ADR-Itching Verified 01/16/25 14:01 neomycin (From Neosporin Allergy ALGY-Rash Verified 01/16/25 14:01 ([id number])) polymyxin B (From Neosporin Allergy ALGY-Rash Verified 01/16/25 14:01 ([id number])) Sulfa (Sulfonamide Allergy ADR-Nausea Verified 01/16/25 14:01 Antibiotics) sulfamethoxazole (From Allergy Unknown Verified 01/16/25 14:01 Bactrim) trimethoprim (From Bactrim) Allergy Unknown Verified 01/16/25 14:01 spironolactone AdvReac Severe Temporary Verified 01/16/25 14:01 blindness Current Medications Generic Name Dose Route Start Last Admin Trade Name Freq PRN Reason Stop Dose Admin Acetaminophen 500 mg 01/16/25 17:38 01/17/25 02:38 Acetaminophen 500 Mg Tablet PO 500 mg Q4H PRN Administration fever Acetaminophen 650 mg 01/17/25 12:52 01/17/25 20:36 Acetaminophen 325 Mg Tablet PO 650 mg Q6H PRN Administration Mild/Mod Pain Or Temp >/= 101 Carvedilol 6.25 mg 01/18/25 13:05 01/18/25 13:09 Carvedilol 6.25 Mg Tablet PO 6.25 mg BID HERMINIO Administration Heparin Sodium (Porcine) 5,000 unit 01/16/25 17:45 01/18/25 05:40 Heparin 5,000 Unit/Ml Inj 1 Ml SUBCUT 5,000 unit Q12H HERMINIO Administration Hydralazine HCl 25 mg 01/16/25 21:00 01/18/25 09:24 Hydralazine 25 Mg Tablet PO 25 mg TID HERMINIO Administration Hydralazine HCl 10 mg 01/17/25 01:20 01/18/25 12:46 Hydralazine 20 Mg/Ml Inj 1 Ml IVP 10 mg Q4H PRN Administration HYPERTENSION Sodium Chloride 1,000 mls @ 100 mls/hr 01/18/25 10:30 01/18/25 10:46 Sodium Chloride 0.9% IV 01/18/25 23:59 100 mls/hr .Q10H HERMINIO Administration Nitroglycerin/Dextrose 50 mg in 250 mls @ 0 mls/hr 01/18/25 13:45 01/18/25 15:11 Nitroglycerin Drip IV 30 mcg/min .Q0M HERMINIO 9 mls/hr Titration Protocol Per Protocol Insulin Human Lispro 0 unit 01/18/25 12:00 01/18/25 11:30 Insulin Lispro 100 Unit/1 Ml SUBCUT 4 unit WM&BEDTIME HERMINIO Administration Protocol Isosorbide Mononitrate 120 mg 01/17/25 09:00 01/18/25 09:25 Isosorbide Mononitrate Er 60 Mg Tablet PO 120 mg DAILY HERMINIO Administration Montelukast Sodium 10 mg 01/17/25 09:00 01/18/25 09:24 Montelukast Sodium 10 Mg Tablet PO 10 mg DAILY HERMINIO Administration Nifedipine 60 mg 01/18/25 10:30 01/18/25 10:46 Nifedipine Er (24 Hr) 30 Mg Tablet PO 60 mg DAILY HERMINIO Administration Nitroglycerin 0.4 mg 01/16/25 17:38 01/18/25 13:29 Nitroglycerin 0.4 Mg Sublingual Tablet SUBLINGUAL 0.4 mg Q5M PRN Administration Chest Pain Pantoprazole Sodium 40 mg 01/17/25 09:00 01/18/25 09:[address] 40 Mg Tablet PO 40 mg DAILY HERMINIO Administration Potassium Chloride 10 meq 01/17/25 09:00 01/18/25 09:24 Potassium Chloride Er 10 Meq Tablet PO 10 meq DAILY HERMINIO Administration Senna/Docusate Sodium 1 tab 01/17/25 09:00 01/18/25 09:25 Sennosides-Docusate Tablet PO 1 tab DAILY HERMINIO Administration Torsemide 100 mg 01/17/25 09:00 01/18/25 09:23 Torsemide 20 Mg Tablet PO 100 mg DAILY HERMINIO Administration PFSH Acute PFSH: Medical History Chronic diastolic heart failure Gastric ulcer H. pylori ruled out at [facility] Situational anxiety Benign hypertension Type 2 diabetes mellitus with diabetic chronic kidney disease Hospital-acquired pneumonia Acute exacerbation of CHF (congestive heart failure) Acute on chronic renal failure Diabetic gastroparesis Hypoxia Anemia Positive GIFTY (antinuclear antibody) Frequent falls Muscle spasm High risk medication use Seronegative rheumatoid arthritis of both hands Diabetic foot Hip pain, left Atypical chest pain IgM monoclonal gammopathy of uncertain significance Intermittent atrial fibrillation Chest pain Edema CKD (chronic kidney disease) stage 3, GFR 30-59 ml/min Urinary disorder Anxiety Pneumonitis Left lumbar radiculopathy Back pain Lymph edema Fracture of distal end of fibula Syncope and collapse Essential tremor Mobility impaired IBS (irritable bowel syndrome) Inflammatory arthritis Chronic back pain Chronic major depressive disorder Peripheral neuropathy Polyarthralgia Edema, peripheral Noncompliance with diabetes treatment Not consistent with diet Near syncope Monoclonal gammopathy Major depression Diabetic neuropathy associated with type 2 diabetes mellitus Severe obstructive sleep apnea Mild cognitive impairment with memory loss Dietary noncompliance Atrial flutter Coronary artery fistula Chronic obstructive pulmonary disease, unspecified Obesity CKD (chronic kidney disease) Fibromyalgia Diverticulosis Environmental and seasonal allergies Vitamin D deficiency Surgical History History of left heart catheterization (2017) No significant obstructive coronary disease Hx of esophagogastroduodenoscopy Hx of colonoscopy History of tonsillectomy History of section 4 times History of cholecystectomy (1993) History of hysterectomy (1997) with BSO Family History Brother Bleeding disorder CAD (coronary artery disease) Father CAD (coronary artery disease) Chronic kidney disease (CKD) Mother CAD (coronary artery disease) Cancer Diabetes Family/Other Cancer Other Congestive heart failure (CHF) Heart disease Hypertension Denies family history of Clotting disorder Dementia Suicide Anesthesia complication Lung disease Stroke Social History Smoking and tobacco/nicotine status: unknown if used tobacco/nicotine Quit status (tobacco/nicotine): has quit using Year quit tobacco: 1990 Former quit date comment: smoked 20+ years Second hand smoke exposure: No Alcohol intake: never Substance/Drug Use: never Adopted: No Caregiver/support person: Yes Lives independently: No Household members: children and other Details: Son, sometimes grandson Housing: House Marital status: Single service: No Current occupational status: disabled Do you think of yourself as: Straight/Heterosexual Current gender identity: Female Vitals/I&O/Wt Last Vital Signs Temp 97.8 F 01/18/25 12:00 Pulse 94 01/18/25 14:34 Resp 17 01/18/25 12:00 BP 180/80 01/18/25 12:00 Pulse Ox 98 01/18/25 14:34 O2 Del Method Room Air 01/18/25 12:00 FiO2 21 01/18/25 14:34 01/18/25 01/18/25 01/18/25 06:59 14:59 22:59 Intake Total 100 / 1300 126.60 / 126.60 5.2 / 131.80 Balance 100 / 1300 126.60 / 126.60 5.2 / 131.80 Weight last 48 hrs Weight 274 lb 7.608 oz Weight 122 lb Weight 266 lb 12.149 oz Physical Exam Narrative: Patient is sitting on the bed, wearing BiPAP. She is in mild distress and appears to be anxious. HENMT: OTHER: Normal Chest: OTHER: Respiratory efforts are now normal. Resp: OTHER: Decreased air entry at the bases, mild rales at the bases bilaterally. Cardio: OTHER: Normal first and second heart sounds. No added sounds. GI: OTHER: Obese abdomen however soft and nontender. Bowel sounds audible. Extremity: NARRATIVE EXTREMITY EXAM: Trace extremity edema. Skin over extremities is warm and dry. Neuro: OTHER: Grossly intact. Data 01/18/25 13:45 01/18/25 13:45 A&P Assessment and plan (1) Acute on chronic diastolic heart failure: (2) Hypertensive emergency: Plan 69-year-old female patient with a known chronic hypertension, uncontrolled, diastolic heart failure, chronic kidney disease, not developed pulmonary edema in the setting of uncontrolled hypertension. Overall patient is stable since after treatment with BiPAP, IV diuretics and IV infusion of nitroglycerin. Overall no apparent acute PA. Plan: Agree with the current management including BiPAP, intravenous nitro infusion and IV diuretics. Optimize hypertensive medication to aggressively control blood pressure. To rule out acute coronary syndrome. PDMP PDMP Reviewed: Not Reviewed Coding Level of Care Code 30173 Diagnoses Acute on chronic diastolic heart failure I50.33 Hypertensive emergency I16.1 Time Spent (min) 25
[2025-01-18] MEDS: fentaNYL 50 mcg/mL INJ 2mL 12.5 MCG IVP (15:55)
[2025-01-18] MEDS: ALPRAZolam 0.5 mg Tablet PO (15:56)
--- NOTE | 2025-01-18 16:22 | PC.NURSE ---
1436 -- Recieved patient from [facility] 2 via bed. On Bipap at 21%. Nitro drip infusing at 10mcg/min. Reports mid sternal chest pain will titrate nitro as needed. Patient very anxious with severe shortness of breath. Juárez patent with large amount of clear yellow urine noted. 1445 -- Dr. Mancera to bedside, spoke with patient and patients son. 1451 -- Patients son and daughter at bedside requesting that the patient be shipped to [facility] and wanting to speak with the doctor. Notified Dr. Fischer. 1545 -- Dr. Fischer to bedside speaking with family. Patient respirations unlabored and no reports of chest pain at present time. Patient states that she is feeling so much better. Family reports that they are ok with the patient staying here currently but if there needs to be any escalation of care they want to be shipped. 1555 -- 12.5mg of fentanyl given IVP for leg pain, Nitro titrated off, xanax given PO as ordered. 1600 -- Bipap off, placed on O2 at 2L NC. Echocardiagram in progress.
[2025-01-18 17:15] LABS: Glucose Point of Care 92 mg/dL (70-110)
[2025-01-18] MEDS: acetaminophen 325 mg Tablet 650 MG PO (17:38)
--- NOTE | 2025-01-18 17:42 | ECG_ITS ---
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 Measurements Intervals [place] Rate: 81 P: 81 GA: 228 QRS: -69 QRSD: 158 T: 58 QT: 451 QTc: 526 Interpretive Statements SINUS RHYTHM WITH FIRST DEGREE AV BLOCK LEFT AXIS DEVIATION [QRS AXIS < -30] RIGHT BUNDLE BRANCH BLOCK [120+ ms QRS DURATION, UPRIGHT V1, 40+ ms S IN I/aVL/V4/V5/V6] Compared to ECG 01/18/2025 13:35:23 Left-axis deviation now present Sinus tachycardia no longer present Left anterior fascicular block no longer present Electronically Signed On 01-19-2025 08:14:17 LIBRARY MEDIA ASSISTANT by Addison Morales M.D. [email or web address] [id number]
[2025-01-18 18:13] LABS: Troponin 5 2HR 48.73 ng/L (0-10); Troponin 5 2HR Delta 3.73 ABS# (0-10)
[2025-01-18 20:37] LABS: Troponin 5 6HR 46.54 ng/L (0-10); Troponin 5 6HR Delta 1.54 ng/L (0-12)
[2025-01-18 20:39] LABS: Glucose Point of Care 124 mg/dL (70-110)
--- NOTE | 2025-01-18 20:40 | PC.NURSE ---
Hydralazine 25mg: Notified Dr. Arthur of low BP's and current BP of 106/45, MAP 65 and order for PO Hydralazine tonight. New order to not admin this dose.
[2025-01-19] VITALS (29 sets, daily range): BP systolic 120–177; BP diastolic 53–76; PULSE 66–78; RESP 12–25; TEMP 36.4–36.8; O2SAT 90–100
[2025-01-19] MEDS: acetaminophen 325 mg Tablet 650 MG PO ×2 (01:44→11:59)
[2025-01-19] MEDS: ALPRAZolam 0.5 mg Tablet PO ×2 (01:44→11:55)
[2025-01-19] MEDS: heparin 5,000 unit/mL INJ 1 mL 5000 UNIT SUBCUT ×2 (05:06→18:01)
[2025-01-19 05:46] LABS: Basophils # 0.1 10^3/uL (0.0-0.1); Basophils % 1.1 %; Eosinophils # 0.3 10^3/uL (0.0-0.8); Eosinophils % 3.4 %; Hematocrit 26.8 % (36-47); Lymphocytes # 1.3 10^3/uL (0.8-4.8); Lymphocytes % 18.1 %; Mean Corpuscular HGB Conc 31.7 g/dL (30-55); Mean Corpuscular Hemoglobin 29.1 pg (27-33); Mean Corpuscular Volume 91.8 fl (85-98); Mean Platelet Volume 11.9 fL (7.4-10.4); Monocytes # 0.6 10^3/uL (0.2-0.9); Monocytes % 8.7 %; Neutrophils % 68.3 %; Nucleated Red Blood Cells % 0 %; Platelet Count 141 10^3/cmm (157-399); Red Blood Count 2.92 10^6/uL (3.85-5.65); Red Cell Distribution Width 13.6 % (12.1-15.1); White Blood Count 7.33 10^3/uL (3.29-11.43)
[2025-01-19 06:11] LABS: Blood Urea Nitrogen 53 mg/dL (8-23); Calcium 9.1 mg/dL (8.5-10.5); Carbon Dioxide 25 mmol/L (22-29); Chloride 102 mmol/L (98-107); Creatinine Clr Calc Pharmacy 24.6654; Glomerular Filtration Rate 16.9 mL/min (90-130); Glucose 95 mg/dL (65-115); Magnesium 2.2 mg/dL (1.7-2.3); Osmolality Calculated 300 mOsm/kg (285-295); Sodium 138 mmol/L (136-145)
[2025-01-19 06:14] LABS: Anion Gap 15.2 (5-19); Potassium 4.2 mmol/L (3.5-5.1)
[2025-01-19 08:23] LABS: Glucose Point of Care 87 mg/dL (70-110)
[2025-01-19] MEDS: TORSEmide 20 mg Tablet 100 MG PO (08:29)
[2025-01-19] MEDS: pantoprazole DR 40 mg Tablet PO (08:30)
[2025-01-19] MEDS: sennosides-docusate Tablet 1 TAB PO (08:30)
[2025-01-19] MEDS: isosorbide mononitrate ER 60 mg Tablet 120 MG PO (08:30)
[2025-01-19] MEDS: potassium chloride ER 10 mEq Tablet PO (08:30)
[2025-01-19] MEDS: carvedilol 6.25 mg Tablet PO ×2 (08:30→18:01)
[2025-01-19] MEDS: hyDRALAzine 25 mg Tablet PO ×3 (08:42→20:20)
[2025-01-19] MEDS: NIFEdipine ER (24 hr) 30 mg Tablet 60 MG PO (08:42)
[2025-01-19 11:53] LABS: Glucose Point of Care 130 mg/dL (70-110)
[2025-01-19] MEDS: FUROsemide 10 mg/mL SDV 4mL 40 MG IVP (11:55)
--- NOTE | 2025-01-19 12:46 | PM.PN ---
Subjective Subjective: seen today patient saying thank you for taking care of me, i feel so much better . However pt reports feeling puffy since last few weeks BP improved UO 1850 in last 24 hours Vitals/I&O/Wt Last Vital Signs Temp 98.2 F 01/19/25 12:00 Pulse 72 01/19/25 12:00 Resp 14 01/19/25 12:00 BP 177/71 01/19/25 12:00 Pulse Ox 99 01/19/25 12:00 O2 Del Method Nasal Cannula 01/19/25 12:00 O2 Flow Rate 2 01/19/25 12:00 FiO2 21 01/19/25 04:55 01/18/25 01/19/25 01/19/25 22:59 06:59 14:59 Intake Total 810.30 / 936.90 480 / 1416.90 400 / 400 Output Total 1150 / 1150 700 / 1850 Balance -339.70 / -213.10 -220 / -433.10 400 / 400 Weight last 48 hrs Weight 121.744 kg Weight 124.5 kg Physical Exam Narrative: General: Alert oriented x3, patient seen sitting in up in bed HEENT: Normocephalic, atraumatic, EOMI, Cardio: Regular rate rhythm, normal S1-S2, Respiratory: Good bilateral air entry, no wheezes no rhonchi appreciated GI: Abdomen soft, nontender, nondistended, bowel sounds + Behavior: Appropriate and cooperative Extremities: non pitting edema b/l LE Urinary Catheter Management: Juárez: Cath Placed During This Visit: yes Urinary Catheter Date of Insertion: 01/19/25 Urinary Catheter Time of Insertion: 15:00 Data 01/19/25 04:20 01/19/25 04:20 A&P Assessment and plan (1) Hypertensive emergency: (2) ROSEMARIE (acute kidney injury): (3) Acute on chronic diastolic heart failure: (4) Flash pulmonary edema: (5) CKD (chronic kidney disease) stage 4, GFR 15-29 ml/min: (6) Chest pain: (7) High risk medication use: (8) Situational anxiety: (9) Type 2 diabetes mellitus with diabetic chronic kidney disease: Qualifiers: 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: with computer terminal operator use Chronic kidney disease stage: stage 4 (severe) Qualified Code(s): E11.22 - Type 2 diabetes mellitus with diabetic chronic kidney disease; N18.4 - Chronic kidney disease, stage 4 (severe); Z79.4 - assisted (current) use of insulin (10) Gastric ulcer: (11) IBS (irritable bowel syndrome): (12) IgM monoclonal gammopathy of uncertain significance: (13) Anemia: Qualifiers: Anemia type: iron deficiency Iron deficiency anemia type: inadequate dietary iron intake Qualified Code(s): D50.8 - Other iron deficiency anemias (14) Inflammatory arthritis: (15) Physical deconditioning: (16) History of obstructive sleep apnea: (17) Chronic obstructive pulmonary disease, unspecified: Qualifiers: COPD type: unspecified COPD Qualified Code(s): J44.9 - Chronic obstructive pulmonary disease, unspecified Plan hypertensive urgency MAP reduction 25% in next 6 to 8 hours Improved blood pressure with use of hydralazine and labetalol Patient complaining of headache, requested CT head with did not show any infarctive or hemorrhagic changes Patient not on optimal antihypertensive regimen, considering chronic kidney disease and diabetes, patient is only taking losartan and torsemide At this point I will add hydralazine, isosorbide and discontinue losartan, continue torsemide Patient follows up, nephrology as outpatient as well Headache: No sign of meningitis or stroke, CT head unremarkable Chest pain: Atypical if troponin trending down EKG no active infective or ischemic changes No active chest pain at the time of evaluation Chronic hypoxia uses 2 to 3 L of oxygen during the day and BiPAP at night Diastolic CHF: No acute decompensation Anxiety: Can use Xanax on as-needed basis Full code Cardiac diet/consistent carb with sliding scale of insulin DVT prophylaxis: Heparin 01/17/2025 BP still high, continue on new med regimen and monitor will discuss with cardiology complains of intermittent chest pain, delta trop negative at 6 hours EKG without acute ischemic changes 01/18/2025 #Hypertensive emergency with evidence of endorgan damage #ROSEMARIE on CKD most likely secondary to above #Chest pain secondary to hypertensive emergency #Possible flash pulmonary edema secondary to hypertensive emergency #Acute on chronic diastolic heart failure exacerbation #History of anxiety #Abnormal stress test #History of decompensated heart failure #History of being on dialysis transiently #Diabetes mellitus insulin-dependent ? Blood pressure has been fluctuating. He was starting to improve this morning however patient has evidence of hypertensive emergency with chest pain, ROSEMARIE on CKD and possible flash pulmonary edema ? Lasix 40 IV x 1 was given ? Placed on nitroglycerin drip ? Cardiology consulted. We will await recommendations ? Check echocardiogram ? Nephrology consulted. IV fluids were added this morning by nephrology for ROSEMARIE however we have discontinued that at this time. In the past patient has required dialysis in December 2023 and at that time was admitted with acute respiratory failure secondary to fluid overload and acute kidney injury. Patient was eventually transferred to LTAC ? Serial EKGs ordered, troponin series ordered ? Will order Ativan 0.5 IV x 1. ? Continue BiPAP at this time ? Patient on hydralazine 25 3 times daily, Imdur 120, add Coreg 6.25 twice daily ? Patient on torsemide 100 daily at home. ? Will discuss with cardiology and nephrology regarding further recommendations. ? This morning when seen in morning rounds chest pain appeared to be more of musculoskeletal in nature however acute chest pain during rapid response most likely cardiac in origin secondary to high blood pressure. She has had an abnormal stress test last year. -Will transfer to ICU at this time and continue to monitor blood pressure. Not to lower more than 170 systolic at this time. Patient was offered morphine 2 mg IV x 1 as well however she refused to take that at this time. -Family is requesting transfer to [facility] however patient is not stable for transfer at this time. I discussed with family that she needs to be stabilized first and then we can discuss the transfer. They understand and agree with the plan. Full code DVT prophylaxis: Heparin SQ twice daily Patient was seen twice today in person including during the rapid response. Time spent documenting, reviewing previous chart, talking to cardiology, coordinating with nursing staff and speaking to family on the phone. 01/19/2025 patient and family do not want to get transferred anymore BP improved, continue current regimen hold torsemide, start on lasix 40 iv daily, discussed with cardiology cr 2.8 today. slight improvement ROSEMARIE most likely 2/2 to cardiorenal syndrome continue to diurese at this time. echo reviewed:Mild concentric LVH. Normal LV systolic function. Estimated LVEF 60%. Normal RV size and normal RV systolic function. No significant valvular abnormality noted. Normal right heart and pulmonary pressures. Nephrology on board. PDMP PDMP Reviewed: Not Reviewed Attestations Medical Necessity Statement*: requires continued IV diuresis Diagnoses Hypertensive emergency I16.1 ROSEMARIE (acute kidney injury) N17.9 Acute on chronic diastolic heart failure I50.33 Flash pulmonary edema J81.0 CKD (chronic kidney disease) stage 4, GFR 15-29 ml/min N18.4 Chest pain R07.9 High risk medication use Z79.899 Situational anxiety F41.8 Type 2 diabetes mellitus with stage 4 chronic kidney disease, with long-term current use of insulin E11.22; N18.4; Z79.4 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: with computer terminal operator use Chronic kidney disease stage: stage 4 (severe) Gastric ulcer K25.9 IBS (irritable bowel syndrome) K58.9 IgM monoclonal gammopathy of uncertain significance D47.2 Iron deficiency anemia secondary to inadequate dietary iron intake D50.8 Anemia type: iron deficiency Iron deficiency anemia type: inadequate dietary iron intake Inflammatory arthritis M19.90 Physical deconditioning R53.81 History of obstructive sleep apnea Z86.69 Chronic obstructive pulmonary disease, unspecified COPD type J44.9 COPD type: unspecified COPD
--- NOTE | 2025-01-19 13:08 | PC.NURSE ---
Timing Machine Operator to see patient at bedside via telenephrology.
--- NOTE | 2025-01-19 13:56 | P.PN_ITS ---
Subjective 2 Subjective: Patient has no new complaints on 2L Medications: Reviewed: Yes Vitals/I&O/Wt Last Vital Signs Temp 98.2 F 01/19/25 12:00 Pulse 72 01/19/25 12:00 Resp 14 01/19/25 12:00 BP 177/71 01/19/25 12:00 Pulse Ox 99 01/19/25 12:00 O2 Del Method Nasal Cannula 01/19/25 12:00 O2 Flow Rate 2 01/19/25 12:00 FiO2 21 01/19/25 04:55 01/18/25 01/19/25 01/19/25 22:59 06:59 14:59 Intake Total 810.30 / 936.90 480 / 1416.90 400 / 400 Output Total 1150 / 1150 700 / 1850 Balance -339.70 / -213.10 -220 / -433.10 400 / 400 Weight last 48 hrs Weight 121.744 kg Weight 124.5 kg Physical Exam 2 Const: COMMON NORMALS: no acute distress, patient oriented x3, no limitations and alert GENERAL APPEARANCE: comfortable ORIENTATION/CONSCIOUSNESS: Yes awake, Yes oriented to person and Yes oriented to time HENMT: COMMON NORMALS: normocephalic HEAD & SCALP: normocephalic Eye: COMMON NORMALS: EOMs intact bilaterally and no scleral icterus Neck/C-Spine: COMMON NORMALS: no JVD Resp: COMMON NORMALS: normal respiratory effort and No use of accessory muscles AUSCULTATION: diminished lung sounds Cardio: COMMON NORMALS: no JVD, regular rate, regular rhythm, S1 normal heart sound present and S2 normal heart sound present JUGULAR VENOUS DISTENTION: no JVD RATE: regular rate RHYTHM: regular rhythm HEART SOUNDS: S1 normal heart sound present and S2 normal heart sound present GI: COMMON NORMALS: Normal to inspection, nondistended, normoactive bowel sounds present, Soft to palpation and non-tender PALPATION: Yes Soft to palpation Extremity: NARRATIVE EXTREMITY EXAM: trace LE edema Neuro: COMMON NORMALS: patient oriented x3 SENSORIUM/ORIENTATION: Yes alert, Yes oriented to person and Yes oriented to time Psych: COMMON NORMALS: mental status grossly normal and cooperative Urinary Catheter Management: Juárez: Cath Placed During This Visit: yes Urinary Catheter Date of Insertion: 01/19/25 Urinary Catheter Time of Insertion: 15:00 Data 01/19/25 04:20 01/19/25 04:20 A&P Assessment and plan (1) Acute kidney injury superimposed on chronic kidney disease: 1. Acute on chronic kidney disease stage IV- Her baseline creatinine ~ 2 range. Patient followed by [facility] and last seen them 2 weeks ago. Patient has a creatinine of 2.2 on presentation that has gotten worse up to 3.0 today I suspect that this is likely hemodynamic mediated due to rapidly fluctuating blood pressures anywhere from 110,s to 220s since presentation. - her creatinine is stable 2. chronic respite failure- her volume status is stable, 3. Anemia in ckd- BOUCHRA as outpatient 4. Essential Hypertension- her bp was poorly controlled and fluctuating rapidly. Her bp control has improved. I will cont to titrate her medications as needed PDMP PDMP Reviewed: Not Reviewed Attestations 2 Medical Necessity Statement*: mal Time Spent in Patient Care: 25 minutes Coding Level of Care Code Acute Code for g Fwd Diagnoses Acute kidney injury superimposed on chronic kidney disease N17.9; N18.9
[2025-01-19 18:13] LABS: Glucose Point of Care 124 mg/dL (70-110)
[2025-01-19] MEDS: insulin lispro 100 unit/1 mL SUBCUT (20:20)
[2025-01-19 20:28] LABS: Glucose Point of Care 158 mg/dL (70-110)
[2025-01-20] VITALS (29 sets, daily range): BP systolic 126–165; BP diastolic 53–75; PULSE 69–89; RESP 13–24; TEMP 36.6–36.9; O2SAT 90–99
[2025-01-20] MEDS: acetaminophen 325 mg Tablet 650 MG PO ×2 (04:12→17:33)
[2025-01-20] MEDS: ALPRAZolam 0.5 mg Tablet PO ×3 (04:43→20:19)
[2025-01-20 04:44] LABS: Basophils # 0.1 10^3/uL (0.0-0.1); Basophils % 0.8 %; Eosinophils # 0.3 10^3/uL (0.0-0.8); Eosinophils % 3.8 %; Hematocrit 27.4 % (36-47); Lymphocytes # 1.2 10^3/uL (0.8-4.8); Mean Corpuscular HGB Conc 32.5 g/dL (30-55); Mean Corpuscular Hemoglobin 29.4 pg (27-33); Mean Corpuscular Volume 90.4 fl (85-98); Mean Platelet Volume 11.5 fL (7.4-10.4); Monocytes # 0.5 10^3/uL (0.2-0.9); Monocytes % 7.4 %; Neutrophils # 5.22 10^3/uL (1.8-7.7); Neutrophils % 71.7 %; Nucleated Red Blood Cells % 0 %; Platelet Count 148 10^3/cmm (157-399); Red Blood Count 3.03 10^6/uL (3.85-5.65); Red Cell Distribution Width 13.4 % (12.1-15.1); White Blood Count 7.29 10^3/uL (3.29-11.43)
[2025-01-20] MEDS: heparin 5,000 unit/mL INJ 1 mL 5000 UNIT SUBCUT ×2 (04:44→17:34)
[2025-01-20 04:54] LABS: Anion Gap 14.1 (5-19); Blood Urea Nitrogen 51 mg/dL (8-23); Calcium 9.1 mg/dL (8.5-10.5); Carbon Dioxide 28 mmol/L (22-29); Chloride 104 mmol/L (98-107); Creatinine Clr Calc Pharmacy 24.6654; Glomerular Filtration Rate 16.9 mL/min (90-130); Glucose 112 mg/dL (65-115); Magnesium 2.2 mg/dL (1.7-2.3); Osmolality Calculated 308 mOsm/kg (285-295); Potassium 4.1 mmol/L (3.5-5.1); Sodium 142 mmol/L (136-145)
[2025-01-20 07:38] LABS: Glucose Point of Care 124 mg/dL (70-110)
[2025-01-20] MEDS: NIFEdipine ER (24 hr) 30 mg Tablet 60 MG PO (08:19)
[2025-01-20] MEDS: isosorbide mononitrate ER 60 mg Tablet 120 MG PO (08:19)
[2025-01-20] MEDS: sennosides-docusate Tablet 1 TAB PO (08:19)
[2025-01-20] MEDS: potassium chloride ER 10 mEq Tablet PO (08:19)
[2025-01-20] MEDS: hyDRALAzine 25 mg Tablet PO (08:19)
[2025-01-20] MEDS: pantoprazole DR 40 mg Tablet PO (08:20)
[2025-01-20] MEDS: carvedilol 6.25 mg Tablet PO ×2 (08:20→17:36)
--- NOTE | 2025-01-20 10:50 | PC.NURSE ---
Dr. Fischer to bedside, educated patient and son rustam about importance of weighing everyday and if she has a 3-5 pound weight gain over a 2-3 days she should be calling her doctor for further instructions on how to manage or to come to ER. Patient and son state they understand these instructions. Questions answered and plans to transfer to [facility] today.
[2025-01-20 11:36] LABS: Glucose Point of Care 208 mg/dL (70-110)
[2025-01-20] MEDS: insulin lispro 100 unit/1 mL SUBCUT ×3 (12:08→20:19)
[2025-01-20] MEDS: FUROsemide 10 mg/mL SDV 4mL 40 MG IVP (12:08)
--- NOTE | 2025-01-20 12:10 | P.PN_ITS ---
Subjective 2 Subjective: Seen this morning. Patient feeling better. Today she reports that she had gained 24 pounds in the last 2 weeks and family insisted upon going to the hospital however she kept refusing. She states she should have come sooner to the hospital. 2700 urine output in last 24 hours. Updated son over the phone. Vitals/I&O/Wt Last Vital Signs Temp 97.9 F 01/20/25 08:00 Pulse 76 01/20/25 10:00 Resp 19 H 01/20/25 10:00 BP 147/72 01/20/25 10:00 Pulse Ox 97 01/20/25 10:00 O2 Del Method Room Air 01/20/25 10:00 O2 Flow Rate 2 01/20/25 08:08 FiO2 21 01/19/25 22:00 01/19/25 01/20/25 01/20/25 22:59 06:59 14:59 Intake Total 250 / 650 300 / 300 Output Total 1700 / 1700 1000 / 2700 Balance -1450 / -1050 -1000 / -2050 300 / 300 Weight last 48 hrs Weight 121.245 kg Weight 121.744 kg Physical Exam 2 Narrative: General: Alert oriented x3, patient seen sitting in up in bed HEENT: Normocephalic, atraumatic, EOMI, Cardio: Regular rate rhythm, normal S1-S2, Respiratory: Good bilateral air entry, no wheezes no rhonchi appreciated GI: Abdomen soft, nontender, nondistended, bowel sounds + Behavior: Appropriate and cooperative Extremities: non pitting edema b/l LE, improved Urinary Catheter Management: Juárez: Cath Placed During This Visit: yes Reason for Continuing Indwelling Catheter: Accurate Measurement of Urinary Output in Critically Ill Patients Urinary Catheter Date of Insertion: 01/19/25 Urinary Catheter Time of Insertion: 15:00 Data 01/20/25 04:11 01/20/25 04:11 A&P Assessment and plan (1) Hypertensive emergency: (2) ROSEMARIE (acute kidney injury): (3) Acute on chronic diastolic heart failure: (4) Flash pulmonary edema: (5) CKD (chronic kidney disease) stage 4, GFR 15-29 ml/min: (6) Chest pain: (7) High risk medication use: (8) Situational anxiety: (9) Type 2 diabetes mellitus with diabetic chronic kidney disease: Qualifiers: Diabetes mellitus usp insulin use: 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 Chronic kidney disease stage: stage 4 (severe) Qualified Code(s): E11.22 - Type 2 diabetes mellitus with diabetic chronic kidney disease; N18.4 - Chronic kidney disease, stage 4 (severe); Z79.4 - intermediate (current) use of insulin (10) Gastric ulcer: (11) IBS (irritable bowel syndrome): (12) IgM monoclonal gammopathy of uncertain significance: (13) Anemia: Qualifiers: Anemia type: iron deficiency Iron deficiency anemia type: inadequate dietary iron intake Qualified Code(s): D50.8 - Other iron deficiency anemias (14) Inflammatory arthritis: (15) Physical deconditioning: (16) History of obstructive sleep apnea: (17) Chronic obstructive pulmonary disease, unspecified: Qualifiers: COPD type: unspecified COPD Qualified Code(s): J44.9 - Chronic obstructive pulmonary disease, unspecified Plan hypertensive urgency MAP reduction 25% in next 6 to 8 hours Improved blood pressure with use of hydralazine and labetalol Patient complaining of headache, requested CT head with did not show any infarctive or hemorrhagic changes Patient not on optimal antihypertensive regimen, considering chronic kidney disease and diabetes, patient is only taking losartan and torsemide At this point I will add hydralazine, isosorbide and discontinue losartan, continue torsemide Patient follows up, nephrology as outpatient as well Headache: No sign of meningitis or stroke, CT head unremarkable Chest pain: Atypical if troponin trending down EKG no active infective or ischemic changes No active chest pain at the time of evaluation Chronic hypoxia uses 2 to 3 L of oxygen during the day and BiPAP at night Diastolic CHF: No acute decompensation Anxiety: Can use Xanax on as-needed basis Full code Cardiac diet/consistent carb with sliding scale of insulin DVT prophylaxis: Heparin 01/17/2025 BP still high, continue on new med regimen and monitor will discuss with cardiology complains of intermittent chest pain, delta trop negative at 6 hours EKG without acute ischemic changes 01/18/2025 #Hypertensive emergency with evidence of endorgan damage #ROSEMARIE on CKD most likely secondary to above #Chest pain secondary to hypertensive emergency #Possible flash pulmonary edema secondary to hypertensive emergency #Acute on chronic diastolic heart failure exacerbation #History of anxiety #Abnormal stress test #History of decompensated heart failure #History of being on dialysis transiently #Diabetes mellitus insulin-dependent ? Blood pressure has been fluctuating. He was starting to improve this morning however patient has evidence of hypertensive emergency with chest pain, ROSEMARIE on CKD and possible flash pulmonary edema ? Lasix 40 IV x 1 was given ? Placed on nitroglycerin drip ? Cardiology consulted. We will await recommendations ? Check echocardiogram ? Nephrology consulted. IV fluids were added this morning by nephrology for ROSEMARIE however we have discontinued that at this time. In the past patient has required dialysis in December 2023 and at that time was admitted with acute respiratory failure secondary to fluid overload and acute kidney injury. Patient was eventually transferred to LTAC ? Serial EKGs ordered, troponin series ordered ? Will order Ativan 0.5 IV x 1. ? Continue BiPAP at this time ? Patient on hydralazine 25 3 times daily, Imdur 120, add Coreg 6.25 twice daily ? Patient on torsemide 100 daily at home. ? Will discuss with cardiology and nephrology regarding further recommendations. ? This morning when seen in morning rounds chest pain appeared to be more of musculoskeletal in nature however acute chest pain during rapid response most likely cardiac in origin secondary to high blood pressure. She has had an abnormal stress test last year. -Will transfer to ICU at this time and continue to monitor blood pressure. Not to lower more than 170 systolic at this time. Patient was offered morphine 2 mg IV x 1 as well however she refused to take that at this time. -Family is requesting transfer to [place] however patient is not stable for transfer at this time. I discussed with family that she needs to be stabilized first and then we can discuss the transfer. They understand and agree with the plan. Full code DVT prophylaxis: Heparin SQ twice daily Patient was seen twice today in person including during the rapid response. Time spent documenting, reviewing previous chart, talking to cardiology, coordinating with nursing staff and speaking to family on the phone. 01/19/2025 patient and family do not want to get transferred anymore BP improved, continue current regimen hold torsemide, start on lasix 40 iv daily, discussed with cardiology cr 2.8 today. slight improvement ROSEMARIE most likely 2/2 to cardiorenal syndrome continue to diurese at this time. echo reviewed:Mild concentric LVH. Normal LV systolic function. Estimated LVEF 60%. Normal RV size and normal RV systolic function. No significant valvular abnormality noted. Normal right heart and pulmonary pressures. Nephrology on board. 01/20/2025 Discussed with cardiology in detail. Patient has gained 24 pounds in the last 2 weeks. Plan to aggressively diurese at this time. Continue on Lasix 40 IV daily. Discussed with patient to watch for weight gain at home and do daily weights. Explained to patient's son as well over the phone. They will continue to diurese patient. Patient does complain of atypical intermittent chest pain which I believe is most likely secondary to musculoskeletal in origin however we will plan for a stress test prior to discharge. I would over stress test for tomorrow morning. Continue Lasix 40 IV daily in the meantime. ROSEMARIE is most likely secondary to cardiorenal syndrome. Creatinine is improved to 2.8. Continue to diurese at this time. Patient will likely require continued diuresis and 48 to 72 hours stay in the hospital prior to discharge. She is not in a net negative balance yet. Check labs daily. Replete potassium as needed. May transfer to cardiac stepdown unit today. PDMP PDMP Reviewed: Not Reviewed Attestations 2 Medical Necessity Statement*: Requires continued IV diuresis in the hospital. Patient is not on an at negative balance yet. She will go for cardiac stress test in AM. Patient has gained 24 pounds in last 2 weeks. Diagnoses Hypertensive emergency I16.1 ROSEMARIE (acute kidney injury) N17.9 Acute on chronic diastolic heart failure I50.33 Flash pulmonary edema J81.0 CKD (chronic kidney disease) stage 4, GFR 15-29 ml/min N18.4 Chest pain R07.9 High risk medication use Z79.899 Situational anxiety F41.8 Type 2 diabetes mellitus with stage 4 chronic kidney disease, with long-term current use of insulin E11.22; N18.4; Z79.4 Diabetes mellitus usp insulin use: with usp use Chronic kidney disease stage: stage 4 (severe) Gastric ulcer K25.9 IBS (irritable bowel syndrome) K58.9 IgM monoclonal gammopathy of uncertain significance D47.2 Iron deficiency anemia secondary to inadequate dietary iron intake D50.8 Anemia type: iron deficiency Iron deficiency anemia type: inadequate dietary iron intake Inflammatory arthritis M19.90 Physical deconditioning R53.81 History of obstructive sleep apnea Z86.69 Chronic obstructive pulmonary disease, unspecified COPD type J44.9 COPD type: unspecified COPD
--- NOTE | 2025-01-20 13:25 | PM.PN ---
Subjective Subjective: Patient has no new complaints on room air. Medications: Reviewed: Yes Vitals/I&O/Wt Last Vital Signs Temp 98.4 F 01/20/25 12:00 Pulse 76 01/20/25 12:00 Resp 20 H 01/20/25 12:00 BP 133/56 01/20/25 12:00 Pulse Ox 92 01/20/25 12:00 O2 Del Method Room Air 01/20/25 12:00 O2 Flow Rate 2 01/20/25 08:08 FiO2 21 01/19/25 22:00 01/19/25 01/20/25 01/20/25 22:59 06:59 14:59 Intake Total 250 / 650 480 / 480 Output Total 1700 / 1700 1000 / 2700 Balance -1450 / -1050 -1000 / -2050 480 / 480 Weight last 48 hrs Weight 121.245 kg Weight 121.744 kg Physical Exam Const: COMMON NORMALS: no acute distress, average body habitus, patient oriented x3 and no limitations HENMT: COMMON NORMALS: normocephalic HEAD & SCALP: normocephalic Eye: COMMON NORMALS: EOMs intact bilaterally and no scleral icterus Neck/C-Spine: COMMON NORMALS: full ROM and no JVD Resp: COMMON NORMALS: normal respiratory effort and clear to auscultation bilaterally AUSCULTATION: clear to auscultation bilaterally Cardio: COMMON NORMALS: no JVD, regular rate, regular rhythm, S1 normal heart sound present and S2 normal heart sound present RATE: regular rate RHYTHM: regular rhythm HEART SOUNDS: S1 normal heart sound present and S2 normal heart sound present GI: COMMON NORMALS: Soft to palpation and non-tender INSPECTION: Yes normal to inspection PALPATION: Yes Soft to palpation Extremity: COMMON NORMALS: normal to inspection and no pedal edema Neuro: COMMON NORMALS: patient oriented x3 Psych: COMMON NORMALS: speech normal SPEECH: Yes normal speech Skin: COMMON NORMALS: no rashes or lesions noted GENERAL SKIN EXAM: no rashes or lesions noted Urinary Catheter Management: Juárez: Cath Placed During This Visit: yes Reason for Continuing Indwelling Catheter: Accurate Measurement of Urinary Output in Critically Ill Patients Urinary Catheter Date of Insertion: 01/19/25 Urinary Catheter Time of Insertion: 15:00 Data 01/20/25 04:11 01/20/25 04:11 A&P Assessment and plan (1) Acute kidney injury superimposed on chronic kidney disease: 1. Acute on chronic kidney disease stage IV- Her baseline creatinine ~ 2 range. Patient followed by [facility] and last seen them 2 weeks ago. Patient has a creatinine of 2.2 on presentation that has gotten worse up to 3.0 today I suspect that this is likely hemodynamic mediated due to rapidly fluctuating blood pressures anywhere from 110,s to 220s since presentation. - her creatinine remains stable 2. chronic respite failure- her volume status is stable, 3. Anemia in ckd- BOUCHRA as outpatient 4. Essential Hypertension- her bp was poorly controlled and fluctuating rapidly. Her bp control has improved. I will cont to titrate her medications as needed PDMP PDMP Reviewed: Not Reviewed Attestations Medical Necessity Statement*: mal Time Spent in Patient Care: 25 minutes Coding Level of Care Code Acute Code for g Fwd Diagnoses Acute kidney injury superimposed on chronic kidney disease N17.9; N18.9
--- NOTE | 2025-01-20 14:01 | PC.NURSE ---
Assisted to bathroom where patient had a bowel movement. Patient called with call light and upon entering the room states I feel like I am going to pass out. HR noted to be in the 40's and blood pressure 94/55. This nurse with 2 other nurses assisted patient to recliner at bedside and rolled back into patient room. Patient states I am starting to feel better . Heart rate in the 70s and blood pressure 126/60. Notified Dr. Fischer of event, order given to cancel transfer to [facility] and hold hydralazine today. Son at bedside, updated on current plan of care.
[2025-01-20 17:05] LABS: Glucose Point of Care 214 mg/dL (70-110)
[2025-01-20 20:08] LABS: Glucose Point of Care 200 mg/dL (70-110)
[2025-01-21] VITALS (34 sets, daily range): BP systolic 128–187; BP diastolic 54–88; PULSE 73–96; RESP 1–34; TEMP 36.9–37.4; O2SAT 88–97
[2025-01-21] MEDS: heparin 5,000 unit/mL INJ 1 mL 5000 UNIT SUBCUT ×2 (05:04→18:09)
[2025-01-21 05:33] LABS: Basophils # 0.1 10^3/uL (0.0-0.1); Basophils % 1.1 %; Eosinophils # 0.2 10^3/uL (0.0-0.8); Hematocrit 27.2 % (36-47); Lymphocytes # 0.6 10^3/uL (0.8-4.8); Lymphocytes % 9.5 %; Mean Corpuscular Hemoglobin 30.1 pg (27-33); Mean Corpuscular Volume 94.1 fl (85-98); Mean Platelet Volume 11.3 fL (7.4-10.4); Monocytes # 0.7 10^3/uL (0.2-0.9); Monocytes % 10.7 %; Neutrophils # 4.75 10^3/uL (1.8-7.7); Neutrophils % 75.1 %; Nucleated Red Blood Cells % 0 %; Platelet Count 130 10^3/cmm (157-399); Red Blood Count 2.89 10^6/uL (3.85-5.65); Red Cell Distribution Width 13.5 % (12.1-15.1); White Blood Count 6.33 10^3/uL (3.29-11.43)
[2025-01-21 06:00] LABS: Alanine Aminotransferase 17 U/L (0-33); Alkaline Phosphatase 139 U/L (35-105); Aspartate Amino Transferase 26 U/L (0-32); Blood Urea Nitrogen 56 mg/dL (8-23); Calcium 8.9 mg/dL (8.5-10.5); Carbon Dioxide 23 mmol/L (22-29); Chloride 103 mmol/L (98-107); Creatinine Clr Calc Pharmacy 28.1069; Globulin 3.1 g/dL (1.3-4.6); Glomerular Filtration Rate 19.2 mL/min (90-130); Glucose 136 mg/dL (65-115); Magnesium 2.2 mg/dL (1.7-2.3); Osmolality Calculated 304 mOsm/kg (285-295); Phosphorus 3.7 mg/dL (2.5-4.5); Sodium 138 mmol/L (136-145); Total Bilirubin 0.2 mg/dL (0.15-1.2); Total Protein 6.1 g/dL (6.6-8.7)
[2025-01-21 06:13] LABS: Anion Gap 16.4 (5-19); Potassium 4.4 mmol/L (3.5-5.1)
[2025-01-21 06:29] LABS: Glucose Point of Care 138 mg/dL (70-110)
[2025-01-21] MEDS: acetaminophen 325 mg Tablet 650 MG PO (09:05)
--- NOTE | 2025-01-21 09:26 | USCV_ITS ---
Jennifer Novak Age: 69 Gender: F : 1955 Exam Date: 01/21/2025 13:44 Ordering Phys: Tamiko Hatfield MD Technologist: Exam Location: [facility] – [place] Indication: swelling PROCEDURES: The venous duplex Doppler examination of both lower extremities was performed in the standard fashion. The following venous structures were evaluated: common femoral vein, profunda vein, proximal portion of the greater saphenous vein, superficial femoral vein, and the popliteal vein. FINDINGS: Normal 2-D Doppler and augmentation and compressibility throughout the lower extremity venous structures. Additional imaging through the proximal calf veins also reveals no thrombus. Limited evaluation of the greater saphenous vein is patent with no thrombus. CONCLUSIONS No evidence of bilateral lower extremity DVT. Dr. Tram Nino DO (Electronically Signed) Final Date: 23 January 2025 13:03 S
[2025-01-21] MEDS: sennosides-docusate Tablet 1 TAB PO (10:05)
[2025-01-21] MEDS: montelukast sodium 10 mg Tablet PO (10:05)
[2025-01-21] MEDS: pantoprazole DR 40 mg Tablet PO (10:05)
[2025-01-21] MEDS: NIFEdipine ER (24 hr) 30 mg Tablet 60 MG PO (10:06)
[2025-01-21] MEDS: carvedilol 6.25 mg Tablet PO ×2 (10:06→18:11)
[2025-01-21] MEDS: potassium chloride ER 10 mEq Tablet PO (10:06)
[2025-01-21] MEDS: diclofenac 1% Topical Gel 100 gm 1 APPLIC TOPICAL ×2 (10:07→18:12)
[2025-01-21 10:46] LABS: D Dimer 0.95 ug/mLFEU (0-0.59)
[2025-01-21] MEDS: FUROsemide 10 mg/mL SDV 4mL 40 MG IVP (11:48)
[2025-01-21] MEDS: insulin lispro 100 unit/1 mL SUBCUT ×3 (11:53→21:04)
[2025-01-21 11:54] LABS: Glucose Point of Care 174 mg/dL (70-110)
--- NOTE | 2025-01-21 11:59 | PM.PN ---
Subjective Subjective: Patient states her breathing is better today. Saturating 94% on room air. Hemoglobin noted to be at 8.7. Reports a past medical history of factor V Leiden mutation. She used to be on Eliquis chronically for several years but was discontinued about a year ago. Review of chart shows the Eliquis to be discontinued sometime in August 2023 due to noted anemia and suspected GI blood loss. It appears she had an EGD and colonoscopy at [facility] in [place] their colonoscopy was unable to be completed due to inadequate prep, EGD showed stigmata of resolved bleeding. She followed up with heme-onc in April 2024. 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 She has a history of needing temporary hemodialysis in 2023 lasted for 5 or 6 months. Eliquis has remained discontinued since 2022. Today she is complaining of left neck pain and left shoulder pain. Patient has a history of inflammatory arthritis for which she follows with rheumatology and is currently on leflunomide. Pain is worse today with attempting to turn the head to the left side. Reproducible tenderness is present over the left shoulder sternocleidomastoid. No palpable lymph nodes are noted. Medications: Reviewed: Yes Vitals/I&O/Wt Last Vital Signs Temp 98.5 F 01/21/25 06:00 Pulse 86 01/21/25 08:35 Resp 18 01/21/25 08:35 BP 175/73 01/21/25 06:00 Pulse Ox 94 01/21/25 08:35 O2 Del Method Room Air 01/21/25 08:35 O2 Flow Rate 2 01/20/25 16:00 FiO2 21 01/20/25 23:11 01/20/25 01/21/25 01/21/25 22:59 06:59 14:59 Intake Total 250 / 730 360 / 1090 Output Total 1150 / 1150 650 / 1800 Balance -900 / -420 -290 / -710 Weight last 48 hrs Weight 125.237 kg Weight 121.245 kg Physical Exam Narrative: General: No acute distress, AO x3 HEENT: PERRLA, pupils bilaterally equal and reactive, pallors not present Chest: Normal vesicular breath sounds, no added sounds, equal good air entry bilaterally CVS: S1-S2 regular, no murmurs, no tachycardia, no gallops, no rubs Abdomen: Soft, nontender, no organomegaly, bowel sounds present Neuro: No focal deficits, no facial deformity, AO x3, power 5/5 in all limbs Extremities: Positive pain over bilateral lower extremities. Urinary Catheter Management: Juárez: Cath Placed During This Visit: yes Reason for Continuing Indwelling Catheter: Accurate Measurement of Urinary Output in Critically Ill Patients Urinary Catheter Date of Insertion: 01/19/25 Urinary Catheter Time of Insertion: 15:00 Data 01/21/25 04:40 01/21/25 04:40 A&P Assessment and plan (1) Hypertensive emergency: (2) ROSEMARIE (acute kidney injury): (3) Acute on chronic diastolic heart failure: (4) Flash pulmonary edema: (5) CKD (chronic kidney disease) stage 4, GFR 15-29 ml/min: (6) Chest pain: (7) High risk medication use: (8) Situational anxiety: (9) Type 2 diabetes mellitus with diabetic chronic kidney disease: 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 Chronic kidney disease stage: stage 4 (severe) Qualified Code(s): E11.22 - Type 2 diabetes mellitus with diabetic chronic kidney disease; N18.4 - Chronic kidney disease, stage 4 (severe); 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 (10) Gastric ulcer: (11) IBS (irritable bowel syndrome): (12) IgM monoclonal gammopathy of uncertain significance: (13) Anemia: Qualifiers: Anemia type: iron deficiency Iron deficiency anemia type: inadequate dietary iron intake Qualified Code(s): D50.8 - Other iron deficiency anemias (14) Inflammatory arthritis: (15) Physical deconditioning: (16) History of obstructive sleep apnea: (17) Chronic obstructive pulmonary disease, unspecified: Qualifiers: COPD type: unspecified COPD Qualified Code(s): J44.9 - Chronic obstructive pulmonary disease, unspecified Plan hypertensive urgency MAP reduction 25% in next 6 to 8 hours Improved blood pressure with use of hydralazine and labetalol Patient complaining of headache, requested CT head with did not show any infarctive or hemorrhagic changes Patient not on optimal antihypertensive regimen, considering chronic kidney disease and diabetes, patient is only taking losartan and torsemide At this point I will add hydralazine, isosorbide and discontinue losartan, continue torsemide Patient follows up, nephrology as outpatient as well Headache: No sign of meningitis or stroke, CT head unremarkable Chest pain: Atypical if troponin trending down EKG no active infective or ischemic changes No active chest pain at the time of evaluation Chronic hypoxia uses 2 to 3 L of oxygen during the day and BiPAP at night Diastolic CHF: No acute decompensation Anxiety: Can use Xanax on as-needed basis Full code Cardiac diet/consistent carb with sliding scale of insulin DVT prophylaxis: Heparin 01/17/2025 BP still high, continue on new med regimen and monitor will discuss with cardiology complains of intermittent chest pain, delta trop negative at 6 hours EKG without acute ischemic changes 01/18/2025 #Hypertensive emergency with evidence of endorgan damage #ROSEMARIE on CKD most likely secondary to above #Chest pain secondary to hypertensive emergency #Possible flash pulmonary edema secondary to hypertensive emergency #Acute on chronic diastolic heart failure exacerbation #History of anxiety #Abnormal stress test #History of decompensated heart failure #History of being on dialysis transiently #Diabetes mellitus insulin-dependent ? Blood pressure has been fluctuating. He was starting to improve this morning however patient has evidence of hypertensive emergency with chest pain, ROSEMARIE on CKD and possible flash pulmonary edema ? Lasix 40 IV x 1 was given ? Placed on nitroglycerin drip ? Cardiology consulted. We will await recommendations ? Check echocardiogram ? Nephrology consulted. IV fluids were added this morning by nephrology for ROSEMARIE however we have discontinued that at this time. In the past patient has required dialysis in December 2023 and at that time was admitted with acute respiratory failure secondary to fluid overload and acute kidney injury. Patient was eventually transferred to LTAC ? Serial EKGs ordered, troponin series ordered ? Will order Ativan 0.5 IV x 1. ? Continue BiPAP at this time ? Patient on hydralazine 25 3 times daily, Imdur 120, add Coreg 6.25 twice daily ? Patient on torsemide 100 daily at home. ? Will discuss with cardiology and nephrology regarding further recommendations. ? This morning when seen in morning rounds chest pain appeared to be more of musculoskeletal in nature however acute chest pain during rapid response most likely cardiac in origin secondary to high blood pressure. She has had an abnormal stress test last year. -Will transfer to ICU at this time and continue to monitor blood pressure. Not to lower more than 170 systolic at this time. Patient was offered morphine 2 mg IV x 1 as well however she refused to take that at this time. -Family is requesting transfer to [place] however patient is not stable for transfer at this time. I discussed with family that she needs to be stabilized first and then we can discuss the transfer. They understand and agree with the plan. Full code DVT prophylaxis: Heparin SQ twice daily Patient was seen twice today in person including during the rapid response. Time spent documenting, reviewing previous chart, talking to cardiology, coordinating with nursing staff and speaking to family on the phone. 01/19/2025 patient and family do not want to get transferred anymore BP improved, continue current regimen hold torsemide, start on lasix 40 iv daily, discussed with cardiology cr 2.8 today. slight improvement ROSEMARIE most likely 2/2 to cardiorenal syndrome continue to diurese at this time. echo reviewed:Mild concentric LVH. Normal LV systolic function. Estimated LVEF 60%. Normal RV size and normal RV systolic function. No significant valvular abnormality noted. Normal right heart and pulmonary pressures. Nephrology on board. 01/20/2025 Discussed with cardiology in detail. Patient has gained 24 pounds in the last 2 weeks. Plan to aggressively diurese at this time. Continue on Lasix 40 IV daily. Discussed with patient to watch for weight gain at home and do daily weights. Explained to patient's son as well over the phone. They will continue to diurese patient. Patient does complain of atypical intermittent chest pain which I believe is most likely secondary to musculoskeletal in origin however we will plan for a stress test prior to discharge. I would over stress test for tomorrow morning. Continue Lasix 40 IV daily in the meantime. ROSEMARIE is most likely secondary to cardiorenal syndrome. Creatinine is improved to 2.8. Continue to diurese at this time. Patient will likely require continued diuresis and 48 to 72 hours stay in the hospital prior to discharge. She is not in a net negative balance yet. Check labs daily. Replete potassium as needed. May transfer to cardiac stepdown unit today. January 21, 2025 69-year-old lady with a past medical history of MGUS dating back several years, chronic anemia, history of GI bleed of Eliquis, factor V mutation, other medical comorbidities including hypertension hyperlipidemia, GIFTY positive inflammatory arthritis, a flutter, diastolic CHF currently admitted to the hospital since January 16, 2025 after presenting with hypertensive urgency. Patient has a history of chronic hypoxia for which she is on 2 to 3 L supplemental O2, however states she has not needed to use her supplemental O2 over the past year except recently. Current active issues this admission include ROSEMARIE on CKD, thought to be related to rapidly fluctuating blood pressures during hospital stay, poor p.o. intake. Acute on chronic diastolic CHF WHICH PATIENT HAS BEEN TREATED WITH IV diuretics. She was initially on IV nitroglycerin which has now been tapered off. EKG and troponin series is concerning for ACS. Troponin 40s range, lower when compared to prior admissions from 2022. No significant delta. She was evaluated by cardiology and elevated troponins were thought to be related to acute on chronic diastolic CHF exacerbation. She denies any active chest pain today. Cardiac stress test from May 2024 had shown moderate areas of decreased tracer uptake along the inferolateral anterolateral and apical segments suggesting possibly old myocardial scarring. Echocardiogram from January 18, 2025 showed concentric LVH, estimated LVEF of 60%, normal RV size and normal RV systolic function. Systolic blood pressure between 1 40-1 70 systolic today. She is complaining of neck pain today over the left side of neck and shoulder. There is reproducible tenderness over the sternocleidomastoid and of the left shoulder. Lymphadenopathy is encountered. No dysphagia. No swallowing trouble. Will add topical diclofenac and assess for improvement. Avoid oral NSAIDs. Plan for today will be to check a D-dimer. Patient had some chest discomfort initially upon arrival. Reports a history of factor V Leiden mutation and being chronically off Eliquis since at least 2022. Would keep PE on the differential diagnosis. It appears patient had a syncopal episode yesterday. Will additionally check lower extremity duplex considering she is complaining of lower extremity pain which is different from her regular neuropathy pain. Holding off on CTA of the chest to minimize risk of worsening renal function with contrast administration. May need to proceed with VQ scan if D-dimer is grossly elevated. Transition IV to oral diuresis today. PT OT assessment. Encourage out of bed to ambulation. Add topical NSAIDs. Optimize blood pressure management. PDMP PDMP Reviewed: Not Reviewed Attestations Medical Necessity Statement*: transition iv to po diuresis, optimize Bp control, LE duplex and D dimer today Coding Level of Care Code Acute Code for Chg Fwd High MDM includes number and complexity of problems actively addressed during encounter, amount and/or complexity of data reviewed/ordered and described risk of complication, morbidity or mortality of management as documented Diagnoses Hypertensive emergency I16.1 ROSEMARIE (acute kidney injury) N17.9 Acute on chronic diastolic heart failure I50.33 Flash pulmonary edema J81.0 CKD (chronic kidney disease) stage 4, GFR 15-29 ml/min N18.4 Chest pain R07.9 High risk medication use Z79.899 Situational anxiety F41.8 Type 2 diabetes mellitus with stage 4 chronic kidney disease, with long-term current use of insulin E11.22; N18.4; Z79.4 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
--- NOTE | 2025-01-21 12:36 | PC.NURSE ---
Pt requested the Isosorbide Mononitrate be held this AM. She thought Dr Fischer told her yesterday she was D/C-ing the med. Dr Hatfield notified for clarification.
--- NOTE | 2025-01-21 13:03 | PC.SOCIAL ---
IMM Update pg 2 of IMM updated and reviewed w/ patient. Copy provided and copy dated, initialed and placed in chart.
--- NOTE | 2025-01-21 13:11 | P.PN_ITS ---
Subjective 2 Subjective: Patient has no new complaints Medications: Reviewed: Yes Vitals/I&O/Wt Last Vital Signs Temp 98.5 F 01/21/25 06:00 Pulse 81 01/21/25 12:30 Resp 22 H 01/21/25 12:30 BP 163/74 01/21/25 12:30 Pulse Ox 93 01/21/25 12:30 O2 Del Method Room Air 01/21/25 08:35 O2 Flow Rate 2 01/20/25 16:00 FiO2 21 01/20/25 23:11 01/20/25 01/21/25 01/21/25 22:59 06:59 14:59 Intake Total 250 / 730 360 / 1090 60 / 60 Output Total 1150 / 1150 650 / 1800 Balance -900 / -420 -290 / -710 60 / 60 Weight last 48 hrs Weight 125.237 kg Weight 121.245 kg Physical Exam 2 Const: COMMON NORMALS: no acute distress, average body habitus, patient oriented x3 and no limitations ORIENTATION/CONSCIOUSNESS: Yes awake, Yes oriented to person, Yes oriented to place and Yes oriented to time HENMT: COMMON NORMALS: normocephalic and atraumatic HEAD & SCALP: n ormocephalic and atraumatic Eye: COMMON NORMALS: EOMs intact bilaterally and no scleral icterus Neck/C-Spine: COMMON NORMALS: full ROM and no JVD Resp: COMMON NORMALS: normal respiratory effort and clear to auscultation bilaterally AUSCULTATION: clear to auscultation bilaterally Cardio: COMMON NORMALS: no JVD, regular rate, regular rhythm, S1 normal heart sound present and S2 normal heart sound present RATE: regular rate RHYTHM: regular rhythm HEART SOUNDS: S1 normal heart sound present and S2 normal heart sound present GI: COMMON NORMALS: Soft to palpation and non-tender PALPATION: Yes Soft to palpation Extremity: COMMON NORMALS: normal to inspection and no pedal edema Neuro: COMMON NORMALS: patient oriented x3 SENSORIUM/ORIENTATION: Yes oriented to person, Yes oriented to place and Yes oriented to time Psych: COMMON NORMALS: mental status grossly normal, cooperative and normal affect Skin: COMMON NORMALS: no rashes or lesions noted GENERAL SKIN EXAM: no rashes or lesions noted Urinary Catheter Management: Juárez: Cath Placed During This Visit: yes Reason for Continuing Indwelling Catheter: Accurate Measurement of Urinary Output in Critically Ill Patients Urinary Catheter Date of Insertion: 01/19/25 Urinary Catheter Time of Insertion: 15:00 Data 01/21/25 04:40 01/21/25 04:40 A&P Assessment and plan (1) Acute kidney injury superimposed on chronic kidney disease: 1. Acute on chronic kidney disease stage IV- Her baseline creatinine ~ 2 range. Patient followed by [facility] [facility] and last seen them 2 weeks ago. Patient had a creatinine of 2.2 on presentation. her creatinine is improved and she is non-oliguric with stable lytes. I suspect that this her mal is likely hemodynamic mediated due to rapidly fluctuating blood pressures anywhere from 110,s to 220s since presentation. 2. chronic respite failure- her volume status is stable, 3. Anemia in ckd- BOUCHRA as outpatient 4. Essential Hypertension- her bp was poorly controlled and fluctuating rapidly. Her bp control has improved. I will cont to titrate her medications as needed PDMP PDMP Reviewed: Not Reviewed Attestations 2 Medical Necessity Statement*: mal Time Spent in Patient Care: 25 minutes Coding Level of Care Code Acute Code for [facility] Fwd Diagnoses Acute kidney injury superimposed on chronic kidney disease N17.9; N18.9
[2025-01-21 17:55] LABS: Glucose Point of Care 181 mg/dL (70-110)
[2025-01-21] MEDS: isosorbide mononitrate ER 60 mg Tablet PO (18:13)
[2025-01-21 20:19] LABS: Glucose Point of Care 169 mg/dL (70-110)
[2025-01-22] MEDS: ALPRAZolam 0.5 mg Tablet PO (01:13)
[2025-01-22 01:55] VITALS: PULSE 78; RESP 14; O2SAT 93
[2025-01-22 03:33] LABS: Basophils % 0.7 %; Eosinophils # 0.1 10^3/uL (0.0-0.8); Eosinophils % 1.9 %; Hematocrit 27.1 % (36-47); Lymphocytes # 0.9 10^3/uL (0.8-4.8); Lymphocytes % 16.6 %; Mean Corpuscular HGB Conc 31.4 g/dL (30-55); Mean Corpuscular Hemoglobin 28.8 pg (27-33); Mean Corpuscular Volume 91.9 fl (85-98); Mean Platelet Volume 11.5 fL (7.4-10.4); Monocytes # 0.7 10^3/uL (0.2-0.9); Monocytes % 13.2 %; Neutrophils # 3.56 10^3/uL (1.8-7.7); Neutrophils % 66.5 %; Nucleated Red Blood Cells % 0 %; Platelet Count 139 10^3/cmm (157-399); Red Blood Count 2.95 10^6/uL (3.85-5.65); Red Cell Distribution Width 13.3 % (12.1-15.1); White Blood Count 5.36 10^3/uL (3.29-11.43)
[2025-01-22 03:48] LABS: Alanine Aminotransferase 23 U/L (0-33); Albumin Level 3.3 g/dL (3.5-5.2); Alkaline Phosphatase 147 U/L (35-105); Aspartate Amino Transferase 29 U/L (0-32); Blood Urea Nitrogen 57 mg/dL (8-23); Carbon Dioxide 24 mmol/L (22-29); Chloride 103 mmol/L (98-107); Creatinine Clr Calc Pharmacy 27.0258; Globulin 2.9 g/dL (1.3-4.6); Glomerular Filtration Rate 18.4 mL/min (90-130); Glucose 160 mg/dL (65-115); Osmolality Calculated 307 mOsm/kg (285-295); Sodium 139 mmol/L (136-145); Total Bilirubin 0.2 mg/dL (0.15-1.2); Total Protein 6.2 g/dL (6.6-8.7)
[2025-01-22] MEDS: heparin 5,000 unit/mL INJ 1 mL 5000 UNIT SUBCUT (06:15)
--- NOTE | 2025-01-22 06:21 | PC.NURSE ---
Patient took off her telemetry this morning because the stickers make her itch.
[2025-01-22 06:22] LABS: Glucose Point of Care 174 mg/dL (70-110)
[2025-01-22 07:23] VITALS: BP 184/77; PULSE 72; RESP 18; TEMP 37.2; O2SAT 95
[2025-01-22 08:32] VITALS: PULSE 75; RESP 18; O2SAT 95
--- NOTE | 2025-01-22 08:56 | P.PN_ITS ---
<Statement entered by Addison Morales M.D - 01/24/25 08:26> Patient was cared for in conjunction with an advanced practice practitioner.? I personally reviewed the chart and all pertinent data including imaging, telemetry, and laboratory results.? I discussed the patient in detail with the advanced practice practitioner.? Please see? their note for complete progress note, testing results and agreed upon plan of care for the patient. Subjective 2 Subjective: She is feeling well this morning, breathing seems to be improved. Fluid balance is negative almost 4 L for this admission. Vitals/I&O/Wt Last Vital Signs Temp 98.9 F 01/22/25 07:23 Pulse 75 01/22/25 08:32 Resp 18 01/22/25 08:32 BP 184/77 01/22/25 07:23 Pulse Ox 95 01/22/25 08:32 O2 Del Method Room Air 01/22/25 08:32 O2 Flow Rate 2 01/20/25 16:00 FiO2 21 01/20/25 23:11 01/21/25 01/22/25 01/22/25 22:59 06:59 14:59 Intake Total 60 / 180 Output Total 1750 / 2625 875 / 2625 Balance -1690 / -2445 -875 / -2445 Weight last 48 hrs Weight 276 lb 1.6 oz Physical Exam 2 Urinary Catheter Management: Juárez: Cath Placed During This Visit: yes Reason for Continuing Indwelling Catheter: Accurate Measurement of Urinary Output in Critically Ill Patients Urinary Catheter Date of Insertion: 01/19/25 Urinary Catheter Time of Insertion: 15:00 Data 01/22/25 03:02 01/22/25 03:02 A&P Assessment and plan (1) Chronic diastolic heart failure: She has been on torsemide, which had been started when she was transferred to [place], she feels it has been fairly ineffective for her. She was previously treated with Bumex and metolazone. She has had good diuresis with IV Lasix, would recommend continue with oral Lasix 40 mg daily with the option to uptitrate to 40 mg twice a day if she gains more than 3 pounds in 24 hours or 5 pounds in a week. (2) Hypertensive urgency: PDMP PDMP Reviewed: Not Reviewed Attestations 2 Medical Necessity Statement*: per hospitalist Coding Level of Care Code Acute Code for Chg Fwd Diagnoses Chronic diastolic heart failure I50.32 Hypertensive urgency I16.0
[2025-01-22] MEDS: diclofenac 1% Topical Gel 100 gm 1 APPLIC TOPICAL (09:33)
[2025-01-22] MEDS: montelukast sodium 10 mg Tablet PO (09:34)
[2025-01-22] MEDS: NIFEdipine ER (24 hr) 30 mg Tablet 60 MG PO (09:34)
[2025-01-22] MEDS: potassium chloride ER 10 mEq Tablet PO (09:34)
[2025-01-22] MEDS: sennosides-docusate Tablet 1 TAB PO (09:34)
[2025-01-22] MEDS: isosorbide mononitrate ER 60 mg Tablet PO (09:35)
[2025-01-22] MEDS: pantoprazole DR 40 mg Tablet PO (09:35)
[2025-01-22] MEDS: FUROsemide 40 mg Tablet PO (09:35)
[2025-01-22] MEDS: insulin lispro 100 unit/1 mL SUBCUT ×2 (09:35→12:51)
[2025-01-22] MEDS: carvedilol 6.25 mg Tablet PO (09:35)
[2025-01-22 11:00] VITALS: BP 190/77; PULSE 75; RESP 20; TEMP 36.7; O2SAT 95
[2025-01-22 12:21] LABS: Glucose Point of Care 201 mg/dL (70-110)
--- NOTE | 2025-01-22 13:36 | P.PN_ITS ---
Subjective 2 Subjective: Patient has no new complaints. Medications: Reviewed: Yes Vitals/I&O/Wt Last Vital Signs Temp 98.0 F 01/22/25 11:00 Pulse 75 01/22/25 11:00 Resp 20 H 01/22/25 11:00 BP 190/77 01/22/25 11:00 Pulse Ox 95 01/22/25 11:00 O2 Del Method Room Air 01/22/25 11:00 O2 Flow Rate 2 01/20/25 16:00 FiO2 21 01/20/25 23:11 01/21/25 01/22/25 01/22/25 22:59 06:59 14:59 Intake Total 60 / 180 240 / 240 Output Total 1750 / 1750 875 / 2625 Balance -1690 / -1570 -875 / -2445 240 / 240 Weight last 48 hrs Weight 125.237 kg Physical Exam 2 Const: COMMON NORMALS: no acute distress, average body habitus, patient oriented x3, no limitations, healthy appearing, alert and well nourished HENMT: COMMON NORMALS: normocephalic and atraumatic HEAD & SCALP: n ormocephalic and atraumatic Eye: COMMON NORMALS: EOMs intact bilaterally and no scleral icterus Neck/C-Spine: COMMON NORMALS: full ROM and no JVD Resp: COMMON NORMALS: normal respiratory effort and clear to auscultation bilaterally AUSCULTATION: clear to auscultation bilaterally Cardio: COMMON NORMALS: no JVD, regular rate, regular rhythm, S1 normal heart sound present and S2 normal heart sound present RATE: regular rate RHYTHM: regular rhythm HEART SOUNDS: S1 normal heart sound present and S2 normal heart sound present GI: COMMON NORMALS: Soft to palpation and non-tender PALPATION: Yes Soft to palpation Extremity: COMMON NORMALS: no pedal edema Neuro: COMMON NORMALS: patient oriented x3 and no focal motor deficits S ENSORIUM/ORIENTATION: Yes alert Psych: COMMON NORMALS: mental status grossly normal, Normal thought process present, cooperative, normal affect and speech normal SPEECH: Yes normal speech THOUGHT PROCESS: Normal thought process present Skin: COMMON NORMALS: no rashes or lesions noted GENERAL SKIN EXAM: no rashes or lesions noted Urinary Catheter Management: Juárez: Cath Placed During This Visit: yes, but has since been removed by the nurse Reason for Continuing Indwelling Catheter: Accurate Measurement of Urinary Output in Critically Ill Patients Urinary Catheter Date of Insertion: 01/19/25 Urinary Catheter Time of Insertion: 15:00 Date Urinary Catheter Removed: 01/22/25 Time Urinary Catheter Discontinued: 13:15 Data 01/22/25 03:02 01/22/25 03:02 A&P Assessment and plan (1) Acute kidney injury superimposed on chronic kidney disease: 1. Acute on chronic kidney disease stage IV- Her baseline creatinine ~ 2 range. Patient followed by [place] [facility] and last saw them 2 weeks ago. Patient had a creatinine of 2.2 on presentation. her creatinine is stable and she remains non-oliguric with stable lytes. I suspect that this her mal is likely hemodynamic mediated due to rapidly fluctuating blood pressures anywhere from 110,s to 220s since presentation. 2. chronic respite failure- her volume status is stable, 3. Anemia in ckd- BOUCHRA as outpatient 4. Essential Hypertension- her bp was poorly controlled and fluctuating rapidly. Her bp control is stable. I will cont to titrate her medications as needed PDMP PDMP Reviewed: Not Reviewed Attestations 2 Medical Necessity Statement*: mal Time Spent in Patient Care: 25 minutes Coding Level of Care Code Acute Code for Chg Fwd Diagnoses Acute kidney injury superimposed on chronic kidney disease N17.9; N18.9
--- NOTE | 2025-01-22 13:54 | PM.DCS ---
Discharge Providers Date of Admission: 01/18/25 14:05 Date of Discharge: January 22, 2025 Attending Provider at Admission: Davida Fischer MD Attending Provider at Discharge: Tamiko Hatfield MD Primary Care Provider: Denny Padgett MD Diagnoses at Discharge Discharge Diagnosis (1) Acute kidney injury superimposed on chronic kidney disease: Status: Acute Reason for Visit Reason for Visit: stroke like symptoms Hospital Course Hospital Course 69-year-old lady with a past medical history of MGUS dating back several years, chronic anemia, history of GI bleed off Eliquis, factor V mutation, other medical comorbidities including hypertension hyperlipidemia, GITFY positive inflammatory arthritis, a flutter, diastolic CHF admitted to the hospital onFebruary 2024 after presenting with hypertensive urgency. Patient had hypoxia on arrival with dyspnea. Active issues this admission included ROSEMARIE on CKD, Acute on chronic diastolic CHF. She was treated with IV diuretics transitioned to oral ;asix at discharge. Home dose of torsemide was discontinued as it has been replaced by lasix. She is recommended to take 40mg po qAM and then additional 40mg in the evening prn for weigth gain > 5 pounds in 3 days. For hypertensive urgency, She was initially on IV nitroglycerin which was tapered off and transitioned to oral antihypertensives. EKG and troponin series was initially concerning for ACS. Troponin 40s range, lower when compared to prior admissions from 2022. No significant delta. She was evaluated by cardiology and elevated troponins were thought to be related to acute on chronic diastolic CHF exacerbation. She denied any active chest pain. Cardiac stress test from May 2024 had shown moderate areas of decreased tracer uptake along the inferolateral anterolateral and apical segments suggesting possibly old myocardial scarring. Echocardiogram from January 18, 2025 showed concentric LVH, estimated LVEF of 60%, normal RV size and normal RV systolic function. She had pain over the left side of neck and shoulder. There was reproducible tenderness over the sternocleidomastoid and of the left shoulder. No Lymphadenopathy was encountered. No dysphagia. No swallowing trouble. She had relief with topical diclofenac application. D dimer was obtained to screen for PE as a differential given H/o factor V mutation - it was at 0.93, overall age appropriate and lower than previous values from last year. LE duplex was negative for DVT. Held off on CTA due to ROSEMARIE on CKD, minimize risk of IRISH. Low probability overall. recommend f/up with hematology to assess if she needs halfway a/c for reporte dfactor V leiden mutation. She is established with the office for MGUS monitoring. Se has been able to be weaned down to room air now. Respirarory status is much improved at discharge. She is being discharged in improved condition. Physical Exam Narrative: General: No acute distress, AO x3 HEENT: PERRLA, pupils bilaterally equal and reactive, pallors not present Chest: Normal vesicular breath sounds, no added sounds, equal good air entry bilaterally CVS: S1-S2 regular, no murmurs, no tachycardia, no gallops, no rubs Abdomen: Soft, nontender, no organomegaly, bowel sounds present Neuro: No focal deficits, no facial deformity, AO x3, power 5/5 in all limbs Urinary Catheter Management: Juárez: Cath Placed During This Visit: yes, but has since been removed by the nurse Reason for Continuing Indwelling Catheter: Accurate Measurement of Urinary Output in Critically Ill Patients Urinary Catheter Date of Insertion: 01/19/25 Urinary Catheter Time of Insertion: 15:00 Date Urinary Catheter Removed: 01/22/25 Time Urinary Catheter Discontinued: 13:15 Discharge Data Studies Completed and Pending Completed Studies During Hospitalization Category Date Time Status CT head wo con* [id number] Stat Cat Scan 01/16/25 14:09 Completed CXRP [XR chest 1V portable [id number]] Stat Exams 01/18/25 13:33 Completed XR chest 1V portable [id number] Stat Exams 01/16/25 14:09 Completed XR chest 1V portable [id number] Stat Exams 01/18/25 14:06 Completed CV. echo complete* [id number] Stat Ultrasound 01/18/25 14:29 Completed Pending at discharge Category Date [place] [id number] Routine Ultrasound 01/21/25 09:26 Taken Radiology Impressions Head CT 01/16/25 14:09 IMPRESSION: No CT evidence of acute intracranial abnormality. Chest X-Ray 01/18/25 14:06 Impression: No change from previous chest x-ray. Laboratory Results WBC 5.36 10^3/uL (3.29-11.43) 01/22/25 03:02 RBC 2.95 10^6/uL (3.85-5.65) L 01/22/25 03:02 Hgb 8.50 g/dL (11.27-16.99) L 01/22/25 03:02 Hct 27.1 % (36-47) L 01/22/25 03:02 MCV 91.9 fl (85-98) 01/22/25 03:02 MCH 28.8 pg (27-33) 01/22/25 03:02 MCHC 31.4 g/dL (30-55) 01/22/25 03:02 RDW 13.3 % (12.1-15.1) 01/22/25 03:02 Plt Count 139 10^3/cmm (157-399) L 01/22/25 03:02 MPV 11.5 fL (7.4-10.4) H 01/22/25 03:02 Neut % (Auto) 66.5 % 01/22/25 03:02 Lymph % (Auto) 16.6 % 01/22/25 03:02 [place] % (Auto) 13.2 % 01/22/25 03:02 Eos % (Auto) 1.9 % 01/22/25 03:02 Baso % (Auto) 0.7 % 01/22/25 03:02 Neut # (Auto) 3.56 10^3/uL (1.8-7.7) 01/22/25 03:02 Lymph # (Auto) 0.9 10^3/uL (0.8-4.8) 01/22/25 03:02 [place] # (Auto) 0.7 10^3/uL (0.2-0.9) 01/22/25 03:02 Eos # (Auto) 0.1 10^3/uL (0.0-0.8) 01/22/25 03:02 Baso # (Auto) 0.0 10^3/uL (0.0-0.1) 01/22/25 03:02 Nucleated RBC % (auto) 0 % 01/22/25 03:02 Nucleated RBCs # 0.0 /100WBC 01/22/25 03:02 PT 13.10 SECONDS (12.1-14.9) 01/16/25 14:10 INR 0.92 (0.8-1.2) 01/16/25 14:10 D-Dimer 0.95 ug/mLFEU (0-0.59) H 01/21/25 10:00 Specimen Type Arterial 01/18/25 13:39 Sample Site Radial, left 01/18/25 13:39 ABG pH 7.55 (7.35-7.45) H 01/18/25 13:39 ABG pCO2 31.4 mmHg (35-45) L 01/18/25 13:39 ABG pO2 61.9 mmHg (80.0-100.0) L 01/18/25 13:39 ABG PO2/FiO2 Ratio 294 01/18/25 13:39 ABG HCO3 27.6 mmol/L (22-26) H 01/18/25 13:39 ABG O2 Saturation 93.8 01/18/25 13:39 ABG Base Excess 5.2 mmol/L (-2.0-2.0) H 01/18/25 13:39 Sharad Test Pos 01/18/25 13:39 A-a O2 Gradient 6.1 mmHg (5-10) 01/18/25 13:39 Hematocrit 30.0 % (37-47) L 01/18/25 13:39 Hgb O2 Saturation 92.4 % (95-100) L 01/18/25 13:39 Carboxyhemoglobin 0.3 %THgb (0.4-20.1) L 01/18/25 13:39 Methemoglobin 1.2 % (0.4-1.5) 01/18/25 13:39 Total Hemoglobin 9.8 g/dL (12-16) L 01/18/25 13:39 Sodium 143.0 mmol/L (131-143) 01/18/25 13:39 Potassium 3.8 mmol/L (3.5-5.0) 01/18/25 13:39 Glucose 93.0 mg/dL (70-115) 01/18/25 13:39 Ionized Calcium 1.2 mmol/L (1.1-1.4) 01/18/25 13:39 O2 Delivery Device Room air 01/18/25 13:39 FiO2 21.0 % 01/18/25 13:39 Senior [employer]ent Ac[employer] Specialist ID [place] 01/18/25 13:39 Sodium 139 mmol/L (136-145) 01/22/25 03:02 Potassium 4.0 mmol/L (3.5-5.1) 01/22/25 03:02 Chloride 103 mmol/L (98-107) 01/22/25 03:02 Carbon Dioxide 24 mmol/L (22-29) 01/22/25 03:02 Anion Gap 16.0 (5-19) 01/22/25 03:02 BUN 57 mg/dL (8-23) H 01/22/25 03:02 Creatinine 2.6 mg/dL (0.5-0.9) H 01/22/25 03:02 GFR Calculation 18.4 mL/min (90-130) L 01/22/25 03:02 Glucose 160 mg/dL (65-115) H 01/22/25 03:02 POC Glucose 201 mg/dL (70-110) H 01/22/25 12:07 Calculated Osmolality 307 mOsm/kg (285-295) H 01/22/25 03:02 Lactic Acid 1.3 mmol/L (0.5-2.2) 01/18/25 13:45 Calcium 9.0 mg/dL (8.5-10.5) 01/22/25 03:02 Phosphorus 3.7 mg/dL (2.5-4.5) 01/21/25 04:40 Magnesium 2.2 mg/dL (1.7-2.3) 01/21/25 04:40 Total Bilirubin 0.2 mg/dL (0.15-1.2) 01/22/25 03:02 AST 29 U/L (0-32) 01/22/25 03:02 ALT 23 U/L (0-33) 01/22/25 03:02 Alkaline Phosphatase 147 U/L (35-105) H 01/22/25 03:02 Troponin T Baseline 45 ng/L (0-10) H 01/18/25 13:45 Troponin T 120 Minute 48.73 ng/L (0-10) H 01/18/25 17:02 Delta Troponin T 3.73 ABS# (0-10) 01/18/25 17:02 Troponin T Hi Sens 6Hr 46.54 ng/L (0-10) H 01/18/25 19:58 Troponin T Hi Sens 6Hr Delta 1.54 ng/L (0-12) 01/18/25 19:58 C-Reactive Protein 4.2 mg/L (0.0-4.9) 01/17/25 03:46 Total Protein 6.2 g/dL (6.6-8.7) L 01/22/25 03:02 Albumin 3.3 g/dL (3.5-5.2) L 01/22/25 03:02 Globulin 2.9 g/dL (1.3-4.6) 01/22/25 03:02 Procalcitonin 0.15 ng/mL (0-0.5) 01/18/25 13:45 TSH 1.89 uIU/mL (0.27-4.20) 01/16/25 14:10 Urine Color Yellow (Yellow) 01/16/25 14:33 Urine Appearance Clear (CLEAR) 01/16/25 14:33 Urine pH 6.5 (5-7) 01/16/25 14:33 Ur Specific [place] 1.008 (1.005-1.030) 01/16/25 14:33 Urine Protein 2+ (Negative) A 01/16/25 14:33 Urine Glucose (UA) Negative (Normal) 01/16/25 14:33 Urine Ketones Negative (Negative) 01/16/25 14:33 Urine Blood Negative (Negative) 01/16/25 14:33 Urine Nitrate Negative (Negative) 01/16/25 14:33 Urine Bilirubin Negative (Negative) 01/16/25 14:33 Urine Urobilinogen 0.2 mg/dL (Negative) 01/16/25 14:33 Ur Leukocyte Esterase Negative (Negative) 01/16/25 14:33 Urine RBC None /hpf (0-2) 01/16/25 14:33 Urine WBC 0-4 /hpf (0-5) H 01/16/25 14:33 Ur Squamous Epith Cells 0-4 /hpf (0-5) H 01/16/25 14:33 Amorphous Sediment Not Reportable 01/16/25 14:33 Urine Bacteria Trace /hpf (NONE) 01/16/25 14:33 Urine Mucus None /hpf 01/16/25 14:33 Urine Yeast Trace /hpf 01/16/25 14:33 Urine Opiates Screen Negative ng/mL (Negative) 01/16/25 14:33 Ur Barbiturates Screen Negative ng/mL (Negative) 01/16/25 14:33 Ur Phencyclidine Scrn Negative ng/mL (Negative) 01/16/25 14:33 Ur Amphetamines Screen Negative ng/mL (Negative) 01/16/25 14:33 U Benzodiazepines Scrn Negative ng/mL (Negative) 01/16/25 14:33 Urine Cocaine Screen Negative ng/mL (Negative) 01/16/25 14:33 U Marijuana (THC) Screen Negative ng/mL (Negative) 01/16/25 14:33 Vitals Last Vital Signs Temp 98.0 F 01/22/25 11:00 Pulse 75 01/22/25 11:00 Resp 20 H 01/22/25 11:00 BP 190/77 01/22/25 11:00 Pulse Ox 95 01/22/25 11:00 O2 Del Method Room Air 01/22/25 11:00 O2 Flow Rate 2 01/20/25 16:00 FiO2 21 01/20/25 23:11 Discharge Plan Discharge Patient Disposition: Home Condition: Stable Prescriptions: New furosemide [Lasix] 40 mg tablet 40 mg PO DAILY 30 Days Qty: 30 0RF furosemide [Lasix] 40 mg tablet 40 mg PO QPM PRN (Reason: weight gain) Qty: 30 0RF Rx Instructions: additional dose in the evening in case of excessive weight gain Continued fluoxetine 20 mg capsule 20 mg PO BID Qty: 60 2RF isosorbide mononitrate 120 mg tablet extended release 24 hr 120 mg PO QDAY Qty: 30 2RF pantoprazole 40 mg tablet,delayed release (DR/EC) 40 mg PO DAILY Qty: 30 2RF sennosides-docusate sodium [Senokot-S] 8.6-50 mg tablet 1 tab-cap PO BID Qty: 60 2RF potassium chloride 10 mEq capsule, extended release 10 meq PO DAILY hydralazine 25 mg tablet 25 mg PO BID Qty: 60 5RF leflunomide 10 mg tablet 10 mg PO DAILY Qty: 90 1RF insulin degludec [Tresiba FlexTouch U-200] 200 unit/mL (3 mL) insulin pen 70 unit SUBCUT DAILY nitroglycerin [Nitrostat] 0.4 mg tablet, sublingual 0.4 mg SUBLINGUAL Q5M PRN (Reason: Chest Pain) Qty: 50 3RF Rx Instructions: do not exceed 3 doses per episode insulin lispro [Humalog KwikPen Insulin] 100 unit/mL insulin pen See Rx Instructions SUBCUT .COMPLEX Qty: 15 2RF Rx Instructions: 6-27U SUBCUT three times daily subcutaneously; per sliding scale acetaminophen 325 mg tablet 325 - 650 mg PO Q6H PRN (Reason: Pain) hydroxyzine pamoate 50 mg capsule 50 mg PO QPM desloratadine 5 mg tablet 5 mg PO DAILY montelukast 10 mg tablet 10 mg PO DAILY albuterol sulfate 90 mcg/actuation HFA aerosol inhaler 2 puff INHALATION Q4H zonisamide 25 mg capsule 25 mg PO Q12H Held losartan [Cozaar] 100 mg tablet 100 mg PO DAILY Qty: 30 2RF Hold Instructions: Resume on 02/19/25. hold until follow up with nephrology Discontinued torsemide 100 mg tablet 100 mg PO DAILY Discharge Orders: Discharge Order (Routine); Ordered 01/22/25 Ordered By: Tamiko Hatfield Referrals: Denny Padgett MD [Primary Care Provider] - 01/28/25 1:40 pm (hopsital discharge follow up ) Senait Smith FNP [Nurse Practitioner] - 02/04/25 3:30 pm (This appointment is scheduled with Lavinia Causey. ) Emily Mayorga MD [Referring] - 2 weeks (We have contacted [facility]. Clinic suport will contact to you to schedule for next available appointment at [facility]. ) Alden Vaughan MD [Hospitalist] - 1 month (follow up for MGUS; halfway anticoagulation We have notified your physician's clinic of the need for a follow-up appointment to be scheduled. If you have not heard from them within the next 2 business days, please call them directly. ) Patient Instructions: Furosemide (By mouth) (Lasix), Pulmonary Edema (DC), Sleep Apnea (GEN), Hypertensive Crisis (DC), CHF Stoplight, Opioid Safety Discharge Attestations Time Spent in Discharge Care*: greater than 30 min Status at Discharge: Cognitive status at discharge: mildly impaired cognition, Behavioral status at discharge: cooperative, Quality Metrics Clinical Quality Measures [ No reported AMI, CVA or VTE this stay] Coding Level of Care Code Acute Code for Chg Fwd Diagnoses Acute kidney injury superimposed on chronic kidney disease N17.9; N18.9
[2025-01-22 14:11] VITALS: BP 176/83
[2025-01-22] MEDS: hyDRALAzine 20 mg/mL INJ 1 mL 10 MG IVP (14:19)
--- NOTE | 2025-01-22 14:45 | PC.OT ---
OT EVALUATION ORDERS RECEIVED. PATIENT IN PROCESS OF D/C. PER NURSING; NO EVAL AT THIS TIME.
[2025-01-22 14:56] VITALS: BP 137/66; PULSE 72; RESP 22; O2SAT 94
== END 2025-01-22 15:18 | disposition home health service (06) | DRG 291 ==
LOC: ER 14:16 → CSU 17:56 → ICU 01-18 14:05 → CSU 01-21 18:25
PROVIDERS: Internal Medicine; Admitting Provider Internal Medicine; Emergency Provider Emergency Medicine; PCP Internal Medicine; Visit Provider Student in an Organized Health Care Education/Training Program
DX: I13.0 Hypertensive heart and chronic kidney disease with heart failure and stage 1 through stage 4 chronic kidney disease, or unspecified chronic kidney disease (principal); I50.33 Acute on chronic diastolic (congestive) heart failure; N18.4 Chronic kidney disease, stage 4 (severe); I16.1 Hypertensive emergency; N17.9 Acute kidney failure, unspecified; D68.51 Activated protein C resistance; J96.11 Chronic respiratory failure with hypoxia; Z68.42 Body mass index [BMI] 45.0-49.9, adult; E11.22 Type 2 diabetes mellitus with diabetic chronic kidney disease; E11.43 Type 2 diabetes mellitus with diabetic autonomic (poly)neuropathy; K31.84 Gastroparesis; E11.42 Type 2 diabetes mellitus with diabetic polyneuropathy; D47.2 Monoclonal gammopathy; D63.1 Anemia in chronic kidney disease; E78.5 Hyperlipidemia, unspecified; M06.00 Rheumatoid arthritis without rheumatoid factor, unspecified site; Z79.4 Long term (current) use of insulin; Z87.11 Personal history of peptic ulcer disease; Z87.01 Personal history of pneumonia (recurrent); I48.0 Paroxysmal atrial fibrillation; F32.9 Major depressive disorder, single episode, unspecified; G47.33 Obstructive sleep apnea (adult) (pediatric); G31.84 Mild cognitive impairment of uncertain or unknown etiology; M25.512 Pain in left shoulder; M54.2 Cervicalgia; F41.8 Other specified anxiety disorders; Z99.81 Dependence on supplemental oxygen; D50.8 Other iron deficiency anemias; K58.9 Irritable bowel syndrome, unspecified; Z99.89 Dependence on other enabling machines and devices; E55.9 Vitamin D deficiency, unspecified; K57.90 Diverticulosis of intestine, part unspecified, without perforation or abscess without bleeding; M79.7 Fibromyalgia; E66.01 Morbid (severe) obesity due to excess calories; J44.9 Chronic obstructive pulmonary disease, unspecified
CPT/HCPCS: 11721; 36415; 36416; 51702; 70450; 71045; 80048; 80051; 80053; 80306; 81001; 82330; 82805; 82962; 83605; 83735; 84100; 84145; 84443; 84484; 85025; 85378; 85610; 86140; 93005; 93306; 93970; 94660; 96365; 96366; 96372; 96374; 96375; 96376; 97161; 99285; A9270; G0378; J0360; J1644; J1815; J1940; J2060; J3010; J3490; J7030; Q3014

== ENCOUNTER 2025-01-30 14:09 | Emergency (ER) | payer MEDICARE, MEDICAID, SELFPAY ==
[2025-01-30 14:19] VITALS: BP 176/86; PULSE 83; RESP 18; TEMP 36.9; O2SAT 99
--- NOTE | 2025-01-30 14:22 | ECG_ITS ---
[employer] Test Date: 2025-01-30 Pat Name: Jennifer Novak Department: Room: Gender: Female Staff Appraiser: : [id number] Requested By: Loly Dasilva Order Number: [id number] Cierra MD: Addison Morales M.D. Measurements Intervals [place] Rate: 78 P: 79 IN: 235 QRS: -65 QRSD: 144 T: 53 QT: 437 QTc: 499 Interpretive Statements SINUS RHYTHM WITH FIRST DEGREE AV BLOCK RIGHT BUNDLE BRANCH BLOCK [120+ ms QRS DURATION, UPRIGHT V1, 40+ ms S IN I/aVL/V4/V5/V6] LEFT ANTERIOR FASCICULAR BLOCK [QRS AXIS <= -45, QR IN I, RS IN II] Compared to ECG 01/18/2025 17:42:44 Left anterior fascicular block now present Left-axis deviation no longer present Electronically Signed On 02-01-2025 19:11:14 CDT by Addison Morales M.D. [email or web address]
[2025-01-30 14:47] VITALS: BP 161/74; RESP 24; O2SAT 87
--- NOTE | 2025-01-30 14:48 | PC.NURSE ---
PATIENT PLACED ON 2 L NC TO MAINTAIN O2 SAT. PATIENT NOW 100% ON 2 L NC.
--- NOTE | 2025-01-30 15:01 | XR_ITS ---
WS: [id number] Portable AP upright chest, 01/30/2025 Clinical Data: sob Comparison: Portable chest, 01/18/2025 Findings: No nodules, masses or effusions are seen. The heart is slightly enlarged. The pulmonary vascularity is not increased. No pneumonia or pneumothorax is seen. The aortic arch and descending thoracic aorta show mild tortuosity and calcification. XR/XR chest 1V portable [id number] Impression: Cardiomegaly and atherosclerosis.
--- NOTE | 2025-01-30 15:30 | W.ED.NAVMDI ---
HPI - Nausea/Vomiting/Diarrhea General: Chief complaint: Nausea/Vomiting/Diarrhea Stated complaint: dr chapin, n/v, trouble urinating Time Seen by Provider: 01/30/25 14:46 Source: patient Mode of arrival: ambulatory Limitations: no limitations History of Present Illness: Patient is a 69-year-old female with extensive past medical history reporting to the emergency department for nausea and vomiting for the past week, since discharge from hospital. States that she was sent by her primary care. She was admitted to the hospital on 01/16 for uncontrolled hypertension and signs of an acute kidney injury. She stayed here a week ultimately was discharged on oral Lasix, with her torsemide discontinued. Also at that time had been weaned down to room air, not requiring oxygen for home. Patient presents stating she has required 2 L of oxygen over the past week, essentially since discharge, to maintain above 90%. Has been persistently vomiting and nauseous, and feels that she is retaining fluid to her abdomen. Notes that she cannot lie flat secondary to feeling short of breath. States that her primary care was worried about a CHF exacerbation and kidney functioning due to her also reported lack of urination. Not reporting any chest pain, is noting she is feeling short of breath. At time of examination her vitals are within normal limits, 99 to 100% on 2 L of oxygen at this time. She states that she has been running intermittent fevers, no chest pain at this time, no abdominal pain despite the bloating, no worsening peripheral edema. She does state that she think she has a UTI. MD elicited complaint: nausea and vomiting Onset (ago): week(s) Associated nausea: Yes Pain consistency: constant Context: new medication and other (Recent hospitalization for CHF exacerbation/hypertensive urgency/ROSEMARIE) Associated symtoms: Reports bloating and nausea; Denies chest pain, diaphoresis, dizziness, dysuria, headache(s) or palpitations Related Data Home Medications ?Medication ?Instructions ?Recorded ?Confirmed acetaminophen 325 mg tablet 325 - 650 mg PO Q6H PRN Pain 12/13/21 01/30/25 insulin degludec 200 unit/mL (3 48 unit SUBCUT DAILY 07/09/24 01/30/25 mL) subcutaneous pen (Tresiba FlexTouch U-200 insulin) potassium chloride 10 mEq 10 meq PO DAILY 07/09/24 01/30/25 capsule,extended release albuterol sulfate 90 mcg/actuation 2 puff inhalation Q4H PRN 01/16/25 01/30/25 aerosol inhaler Shortness Of Breath metolazone 5 mg tablet 5 mg PO .DAILY X7D 01/30/25 01/30/25 torsemide 100 mg tablet 100 mg PO DAILY 01/30/25 01/30/25 triamcinolone acetonide 0.025 % 1 applic topical DAILY PRN Skin 01/30/25 01/30/25 topical cream Irritation Previous Rx's ?Medication ?Instructions ?Recorded nitroglycerin 0.4 mg sublingual 0.4 mg sublingual Q5M PRN Chest 11/25/23 tablet (Nitrostat) Pain #50 tabs fluoxetine 20 mg capsule 20 mg PO BID #60 caps 04/25/24 losartan 100 mg tablet (Cozaar) 100 mg PO DAILY #30 tabs 04/25/24 Held on 01/22/25. Instructions: Resume on 02/19/25. hold until follow up with nephrology pantoprazole 40 mg tablet,delayed 40 mg PO DAILY #30 tabs 04/25/24 release sennosides 8.6 mg-docusate sodium 1 tab-cap PO BID #60 tabs 04/25/24 50 mg tablet (Senokot-S) hydralazine 25 mg tablet 25 mg PO BID #60 tabs 07/09/24 leflunomide 10 mg tablet 10 mg PO DAILY #90 tabs 07/16/24 furosemide 40 mg tablet (Lasix) 40 mg PO DAILY 30 days #30 tabs 01/22/25 metoclopramide HCl 10 mg tablet 10 mg PO Q6H PRN nausea and 01/30/25 vomiting #20 tabs Allergies Allergy/AdvReac Type Severity Reaction Status Date / Time oxycodone Allergy Unknown Unknown Verified 01/30/25 14:23 spironolactone Allergy Unknown Temporary Verified 01/30/25 14:23 blindness,temporary blindness acetaminophen (From [place]) Allergy Unknown Verified 01/30/25 14:23 bacitracin Allergy ADR-Nausea Verified 01/30/25 14:23 codeine Allergy ADR-Nausea Verified 01/30/25 14:23 hydrocodone (From [place]) Allergy Unknown Verified 01/30/25 14:23 Latex, Natural Rubber Allergy Unknown Verified 01/30/25 14:23 morphine Allergy ADR-Itching Verified 01/30/25 14:23 neomycin (From Neosporin Allergy ALGY-Rash Verified 01/30/25 14:23 ([id number])) polymyxin B (From Neosporin Allergy ALGY-Rash Verified 01/30/25 14:23 ([id number])) Sulfa (Sulfonamide Allergy ADR-Nausea Verified 01/30/25 14:23 Antibiotics) sulfamethoxazole (From Allergy Unknown Verified 01/30/25 14:23 Bactrim) trimethoprim (From Bactrim) Allergy Unknown Verified 01/30/25 14:23 Review of Systems General: Reports: 10 or more systems reviewed and unremarkable except in HPI and below Const: Reports: fever(s) and change in appetite; Denies: chills, change in weight or diaphoresis ENMT: Denies: throat pain or hoarseness Card: Reports: orthopnea; Denies: chest pain, palpitations or lightheadedness Resp: Reports: dyspnea; Denies: productive cough or wheezing GI: Reports: nausea, vomiting and bloating; Denies: abdominal pain or diarrhea : Reports: oliguria; Denies: flank pain, difficulty voiding, dysuria, urinary frequency, urinary urgency or hematuria Musc: Denies: neck pain or back pain Skin/Breast: Denies: rash or new lesions Neuro: Denies: headache(s), numbness in extremities, weakness in extremities or dizziness PFS ED PFSH: Medical History Chronic diastolic heart failure Gastric ulcer H. pylori ruled out at [facility] Situational anxiety Benign hypertension Type 2 diabetes mellitus with diabetic chronic kidney disease Hospital-acquired pneumonia Acute exacerbation of CHF (congestive heart failure) Acute on chronic renal failure Diabetic gastroparesis Hypoxia Anemia Positive GIFTY (antinuclear antibody) Frequent falls Muscle spasm High risk medication use Seronegative rheumatoid arthritis of both hands Diabetic foot Hip pain, left Atypical chest pain IgM monoclonal gammopathy of uncertain significance Intermittent atrial fibrillation Chest pain Edema CKD (chronic kidney disease) stage 3, GFR 30-59 ml/min Urinary disorder Anxiety Pneumonitis Left lumbar radiculopathy Back pain Lymph edema Fracture of distal end of fibula Syncope and collapse Essential tremor Mobility impaired IBS (irritable bowel syndrome) Inflammatory arthritis Chronic back pain Chronic major depressive disorder Peripheral neuropathy Polyarthralgia Edema, peripheral Noncompliance with diabetes treatment Not consistent with diet Near syncope Monoclonal gammopathy Major depression Diabetic neuropathy associated with type 2 diabetes mellitus Severe obstructive sleep apnea Mild cognitive impairment with memory loss Dietary noncompliance Atrial flutter Coronary artery fistula Chronic obstructive pulmonary disease, unspecified Obesity CKD (chronic kidney disease) Fibromyalgia Diverticulosis Environmental and seasonal allergies Vitamin D deficiency Surgical History History of left heart catheterization (2017) No significant obstructive coronary disease Hx of esophagogastroduodenoscopy Hx of colonoscopy History of tonsillectomy History of section 4 times History of cholecystectomy (1993) History of hysterectomy (1997) with BSO Family History Brother Bleeding disorder CAD (coronary artery disease) Father CAD (coronary artery disease) Chronic kidney disease (CKD) Mother CAD (coronary artery disease) Cancer Diabetes Family/Other Cancer Other Congestive heart failure (CHF) Heart disease Hypertension Denies family history of Clotting disorder Dementia Suicide Anesthesia complication Lung disease Stroke Social History Smoking and tobacco/nicotine status: unknown if used tobacco/nicotine Quit status (tobacco/nicotine): has quit using Year quit tobacco: 1990 Former quit date comment: smoked 20+ years Second hand smoke exposure: No Alcohol intake: never Substance/Drug Use: never Adopted: No Caregiver/support person: Yes Lives independently: No Household members: children and other Details: Son, sometimes grandson Housing: House Marital status: Single service: No Current occupational status: disabled Do you think of yourself as: Straight/Heterosexual Current gender identity: Female Physical Exam Const: COMMON NORMALS: patient oriented x3, no limitations, alert and well nourished GENERAL APPEARANCE: cooperative NUTRITIONAL APPEARANCE: obese morbidly obese ORIENTATION/CONSCIOUSNESS: Yes awake HENMT: COMMON NORMALS: normocephalic, atraumatic, hearing grossly normal bilaterally, external ears normal, Normal external nose present, Normal nasal mucous membranes and turbinates present and moist oral mucous membranes HEAD & SCALP: normocephalic and atraumatic NOSE: Normal external nose present and Normal nasal mucous membranes and turbinates present EXTERNAL EAR: Yes external ears normal Eye: COMMON NORMALS: Equal, round and reactive pupils present, EOMs intact bilaterally, conjunctivae normal and normal visual shaikh by confrontation CONJUNCTIVA: Yes conjunctivae normal PUPIL: Yes Equal, round and reactive pupils present Neck/C-Spine: COMMON NORMALS: full ROM, supple, no meningeal signs and no JVD Resp: COMMON NORMALS: normal respiratory effort, No retractions, No use of accessory muscles and clear to auscultation bilaterally AUSCULTATION: clear to auscultation bilaterally, no crackles, no rales, no rhonchi and no wheezes OTHER: No tachypnea, no signs of respiratory distress Cardio: COMMON NORMALS: no JVD, regular rate, regular rhythm, S1 normal heart sound present, S2 normal heart sound present, No gallops present (Cardio), No clicks present (Cardio), No murmurs present (Cardio), No rub (Cardio) and Peripheral pulses 2+ throughout RATE: regular rate RHYTHM: regular rhythm HEART SOUNDS: S1 normal heart sound present and S2 normal heart sound present PERIPHERAL PULSES: Peripheral pulses 2+ throughout GI: COMMON NORMALS: Normal to inspection, nondistended, normoactive bowel sounds present, Soft to palpation, non-tender, No hepatosplenomegaly present and no masses AUSCULTATION: Yes normoactive bowel sounds PALPATION: Yes Soft to palpation, No Guarding due to palpation present (GI), No Rigid due to palpation and Yes No hepatosplenomegaly present RECTAL EXAM: deferred Extremity: COMMON NORMALS: normal to inspection, full ROM and no pedal edema Neuro: COMMON NORMALS: patient oriented x3, moves all extremities, no focal motor deficits and no sensory deficits noted SENSORIUM/ORIENTATION: Yes alert MENINGEAL SIGNS: Yes no meningeal signs Psych: COMMON NORMALS: mental status grossly normal, cooperative and speech normal SPEECH: Yes normal speech Skin: COMMON NORMALS: no rashes or lesions noted GENERAL SKIN EXAM: no rashes or lesions noted Course Vital Signs: Vital signs: Vital Signs Temperature 98.4 F 01/30/25 14:19 Pulse Rate 78 01/30/25 17:47 Respiratory Rate 16 01/30/25 17:47 Blood Pressure 161/74 01/30/25 14:47 Pulse Oximetry 94 01/30/25 17:47 Oxygen Delivery Me thod Room Air 01/30/25 17:47 Oxygen Flow Rate 2 01/30/25 14:19 MDM - Nausea/Vomiting/Diarrhea Medical Decision Making Patient recently hospitalized for hypertensive urgency and ROSEMARIE, discharged on the fourth. States that since then she has felt sick, with nausea and vomiting and has been requiring oxygen. At time of examination she was on 2 L but 100%, this has since been weaned off and on recheck she was greater than 95% on room air. Did not seem to be too fluid overloaded on exam, she recently was started on Lasix after hospital discharge. She has congestive heart failure as well as chronic kidney disease. She was given Reglan, and also upon recheck noted to be much more comfortable and was stating that she was actually hungry and wanted to go home. She is COVID-positive. All of her labs were stable with prior, specifically her BNP and her kidney function. Still offered her admission for observation but states that she wants to go home and eat. Encouraged her to follow-up closely with her primary care provider and then to return if she has any worsening of her breathing or other concerns, to which she verbalized understanding. Lab Data 01/30/25 16:46 01/30/25 16:46 Radiology Impressions Chest X-Ray 01/30/25 15:01 Impression: Cardiomegaly and atherosclerosis. Laboratory Results WBC 8.21 10^3/uL (3.29-11.43) 01/30/25 16:46 Corrected WBC Cancelled 01/30/25 15:10 RBC 3.07 10^6/uL (3.85-5.65) L 01/30/25 16:46 Hgb 8.90 g/dL (11.27-16.99) L 01/30/25 16:46 Hct 28.3 % (36-47) L 01/30/25 16:46 MCV 92.2 fl (85-98) 01/30/25 16:46 MCH 29.0 pg (27-33) 01/30/25 16:46 MCHC 31.4 g/dL (30-55) 01/30/25 16:46 RDW 13.1 % (12.1-15.1) 01/30/25 16:46 Plt Count 266 10^3/cmm (157-399) 01/30/25 16:46 MPV 11.1 fL (7.4-10.4) H 01/30/25 16:46 Gran % Cancelled 01/30/25 15:10 Neut % (Auto) 75.1 % 01/30/25 16:46 Lymph % (Auto) 13.5 % 01/30/25 16:46 [place] % (Auto) 8.0 % 01/30/25 16:46 Eos % (Auto) 2.2 % 01/30/25 16:46 Baso % (Auto) 0.7 % 01/30/25 16:46 Neut # (Auto) 6.16 10^3/uL (1.8-7.7) 01/30/25 16:46 Lymph # (Auto) 1.1 10^3/uL (0.8-4.8) 01/30/25 16:46 [place] # (Auto) 0.7 10^3/uL (0.2-0.9) 01/30/25 16:46 Eos # (Auto) 0.2 10^3/uL (0.0-0.8) 01/30/25 16:46 Baso # (Auto) 0.1 10^3/uL (0.0-0.1) 01/30/25 16:46 Absolute Gran (auto) Cancelled 01/30/25 15:10 Nucleated RBC % (auto) 0 % 01/30/25 16:46 Nucleated RBCs # 0.0 /100WBC 01/30/25 16:46 Sodium 139 mmol/L (136-145) 01/30/25 16:46 Potassium 4.2 mmol/L (3.5-5.1) 01/30/25 16:46 Chloride 106 mmol/L (98-107) 01/30/25 16:46 Carbon Dioxide 22 mmol/L (22-29) 01/30/25 16:46 Anion Gap 15.2 (5-19) 01/30/25 16:46 BUN 40 mg/dL (8-23) H 01/30/25 16:46 Creatinine 2.0 mg/dL (0.5-0.9) H 01/30/25 16:46 GFR Calculation 24.9 mL/min (90-130) L 01/30/25 16:46 Glucose 113 mg/dL (65-115) 01/30/25 16:46 Calculated Osmolality 299 mOsm/kg (285-295) H 01/30/25 16:46 Lactic Acid 1.2 mmol/L (0.5-2.2) 01/30/25 15:52 Calcium 9.2 mg/dL (8.5-10.5) 01/30/25 16:46 Total Bilirubin 0.2 mg/dL (0.15-1.2) 01/30/25 16:46 AST 17 U/L (0-32) 01/30/25 16:46 ALT 14 U/L (0-33) 01/30/25 16:46 Alkaline Phosphatase 138 U/L (35-105) H 01/30/25 16:46 NT-Pro-B Natriuret Pep 6888 pg/mL (0-125) H 01/30/25 16:46 Total Protein 6.9 g/dL (6.6-8.7) 01/30/25 16:46 Albumin 3.4 g/dL (3.5-5.2) L 01/30/25 16:46 Globulin 3.5 g/dL (1.3-4.6) 01/30/25 16:46 Lipase 57 U/L (13-60) 01/30/25 16:46 Urine Color Yellow (Yellow) 01/30/25 15:31 Urine Appearance Clear (CLEAR) 01/30/25 15: Urine pH 5.5 (5-7) 01/30/25 15: Ur Specific [place] 1.012 (1.005-1.030) 01/30/25 15:31 Urine Protein 3+ (Negative) A 01/30/25 15: Urine Glucose (UA) Negative (Normal) 01/30/25 15: Urine Ketones Negative (Negative) 01/30/25 15: Urine Blood Negative (Negative) 01/30/25 15: Urine Nitrate Negative (Negative) 01/30/25 15: Urine Bilirubin Negative (Negative) 01/30/25 15: Urine Urobilinogen 0.2 mg/dL (Negative) 01/30/25 15: Ur Leukocyte Esterase Negative (Negative) 01/30/25 15:31 Urine RBC 0-2 /hpf (0-2) 01/30/25 15:31 Urine WBC 0-5 /hpf (0-5) 01/30/25 15:31 Ur Squamous Epith Cells 0-5 /hpf (0-5) 01/30/25 15:31 Amorphous Sediment Not Reportable 01/30/25 15:31 Urine Bacteria None seen /hpf (NONE) 01/30/25 15:31 Hyaline Casts 7.01 /lpf 01/30/25 15:31 Influenza A (PCR) Negative (Negative) 01/30/25 15:44 Influenza Type B (PCR) Negative (Negative) 01/30/25 15:44 RSV (PCR) Negative (Negative) 01/30/25 15:44 SARS-CoV-2 (PCR) Positive (Negative) A 01/30/25 15:44 All radiology interpretation(s) finalized by discharge Discharge Plan Discharge Patient Disposition: Home Clinical Impression: COVID-19, CKD (chronic kidney disease) stage 4, GFR 15-29 ml/min Nausea & vomiting Qualifiers: Vomiting type: unspecified Qualified Code(s): R11.2 - Nausea with vomiting, unspecified Condition: Stable Prescriptions: New metoclopramide HCl 10 mg tablet 10 mg PO Q6H PRN (Reason: nausea and vomiting) Qty: 20 0RF No Action fluoxetine 20 mg capsule 20 mg PO BID Qty: 60 2RF losartan [Cozaar] 100 mg tablet 100 mg PO DAILY Qty: 30 2RF pantoprazole 40 mg tablet,delayed release (DR/EC) 40 mg PO DAILY Qty: 30 2RF sennosides-docusate sodium [Senokot-S] 8.6-50 mg tablet 1 tab-cap PO BID Qty: 60 2RF potassium chloride 10 mEq capsule, extended release 10 meq PO DAILY hydralazine 25 mg tablet 25 mg PO BID Qty: 60 5RF leflunomide 10 mg tablet 10 mg PO DAILY Qty: 90 1RF insulin degludec [Tresiba FlexTouch U-200] 200 unit/mL (3 mL) insulin pen 48 unit SUBCUT DAILY nitroglycerin [Nitrostat] 0.4 mg tablet, sublingual 0.4 mg SUBLINGUAL Q5M PRN (Reason: Chest Pain) Qty: 50 3RF Rx Instructions: do not exceed 3 doses per episode acetaminophen 325 mg tablet 325 - 650 mg PO Q6H PRN (Reason: Pain) albuterol sulfate 90 mcg/actuation HFA aerosol inhaler 2 puff INHALATION Q4H PRN (Reason: Shortness Of Breath) furosemide [Lasix] 40 mg tablet 40 mg PO DAILY 30 Days Qty: 30 0RF metolazone 5 mg tablet 5 mg PO .DAILY X7D torsemide 100 mg tablet 100 mg PO DAILY triamcinolone acetonide 0.025 % cream 1 applic TOPICAL DAILY PRN (Reason: Skin Irritation) Discharge Orders: Discharge ED (Routine); Ordered 01/30/25 Ordered By: Ashok Cook Referrals: Denny Padgett MD [Primary Care Provider] - Patient Instructions: COVID-19 (Coronavirus Disease 2019) (ED) Activity Restrictions/Additional Instructions: You have been diagnosed with COVID-19, contact precaution. Continue taking your home medications, including the prescribed Reglan for nausea. Please follow-up closely with your primary care provider for reevaluation. Return with any worsening shortness of breath, any chest pain, or any other concerns that you have. Print Language: [place] Coding Level of Care Code ED Laboratory Machinist for nAel Mcknight
[2025-01-30] MEDS: metoclopramide 5 mg/mL SDV 2 mL 10 MG IM (15:43)
[2025-01-30 15:45] VITALS: O2SAT 94
--- NOTE | 2025-01-30 15:56 | PC.PHAR ---
Pts' son took over the conversation about medications and pts' current list is updated according to what he says she is taking.
[2025-01-30 15:57] LABS: Bilirubin Urine Negative (Negative); Blood Urine Negative (Negative); Glucose Urine UA Negative (Normal); Ketones Urine Negative (Negative); Leukocyte Esterase Urine Negative (Negative); Nitrate Urine Negative (Negative); Protein Urine 3+ (Negative); Specific Gravity, Urine 1.012 (1.005-1.030); Urine Appearance Clear (CLEAR); Urine Color Yellow (Yellow); Urobilinogen Urine 0.2 mg/dL (Negative); pH Urine 5.5 (5-7)
[2025-01-30 16:02] LABS: Add Urine Microscopic? YES; Bacteria Urine None Seen /hpf; Hyaline Casts Urine 7.01 /lpf; RBC Urine 0-2 /hpf (0-2); Squamous Epithelial Cell Urine 0-5 /hpf (0-5); WBC Urine 0-5 /hpf (0-5)
[2025-01-30 16:36] LABS: Lactic Sepsis W/Reflex 1.2 mmol/L (0.5-2.2)
[2025-01-30 17:06] LABS: Basophils # 0.1 10^3/uL (0.0-0.1); Basophils % 0.7 %; Eosinophils # 0.2 10^3/uL (0.0-0.8); Eosinophils % 2.2 %; Hematocrit 28.3 % (36-47); Lymphocytes # 1.1 10^3/uL (0.8-4.8); Lymphocytes % 13.5 %; Mean Corpuscular HGB Conc 31.4 g/dL (30-55); Mean Corpuscular Volume 92.2 fl (85-98); Mean Platelet Volume 11.1 fL (7.4-10.4); Monocytes # 0.7 10^3/uL (0.2-0.9); Neutrophils # 6.16 10^3/uL (1.8-7.7); Neutrophils % 75.1 %; Nucleated Red Blood Cells % 0 %; Platelet Count 266 10^3/cmm (157-399); Red Blood Count 3.07 10^6/uL (3.85-5.65); Red Cell Distribution Width 13.1 % (12.1-15.1); White Blood Count 8.21 10^3/uL (3.29-11.43)
[2025-01-30 17:08] LABS: Influenza A NEGATIVE (Negative); Influenza B NEGATIVE (Negative); Respiratory Syncytial Virus Ce NEGATIVE (Negative)
[2025-01-30 17:47] VITALS: PULSE 78; RESP 16; O2SAT 94
[2025-01-30 17:50] LABS: Alanine Aminotransferase 14 U/L (0-33); Albumin Level 3.4 g/dL (3.5-5.2); Alkaline Phosphatase 138 U/L (35-105); Anion Gap 15.2 (5-19); Aspartate Amino Transferase 17 U/L (0-32); Blood Urea Nitrogen 40 mg/dL (8-23); Calcium 9.2 mg/dL (8.5-10.5); Carbon Dioxide 22 mmol/L (22-29); Chloride 106 mmol/L (98-107); Globulin 3.5 g/dL (1.3-4.6); Glomerular Filtration Rate 24.9 mL/min (90-130); Glucose 113 mg/dL (65-115); Lipase 57 U/L (13-60); NT Pro B Type Natriuretic Pept 6888 pg/mL (0-125); Osmolality Calculated 299 mOsm/kg (285-295); Potassium 4.2 mmol/L (3.5-5.1); Sodium 139 mmol/L (136-145); Total Bilirubin 0.2 mg/dL (0.15-1.2); Total Protein 6.9 g/dL (6.6-8.7)
[2025-01-30 17:53] LABS: SARS-CoV-2 PCR Positive (Negative)
[2025-01-30 18:11] VITALS: BP 162/71; PULSE 78; O2SAT 95
== END 2025-01-30 18:12 | disposition home or self-care (01) ==
PROVIDERS: Emergency Medicine; Emergency Provider Physician Assistant; PCP Internal Medicine
DX: R11.2 Nausea with vomiting, unspecified (principal); U07.1 COVID-19; E11.22 Type 2 diabetes mellitus with diabetic chronic kidney disease; I12.9 Hypertensive chronic kidney disease with stage 1 through stage 4 chronic kidney disease, or unspecified chronic kidney disease; N18.4 Chronic kidney disease, stage 4 (severe); J44.9 Chronic obstructive pulmonary disease, unspecified
CPT/HCPCS: 36415; 71045; 80053; 81001; 83605; 83690; 83880; 85025; 87637; 93005; 96372; 99285; J2765

== ENCOUNTER → 2025-02-04 15:20 | Outpatient (BNVA) | payer MEDICARE, MEDICAID, SELFPAY | PROVIDERS: PCP Internal Medicine; Visit Provider Nurse Practitioner Family | DX: I48.3 Typical atrial flutter (principal); R00.2 Palpitations; I73.9 Peripheral vascular disease, unspecified; Z87.891 Personal history of nicotine dependence; I13.0 Hypertensive heart and chronic kidney disease with heart failure and stage 1 through stage 4 chronic kidney disease, or unspecified chronic kidney disease; E11.22 Type 2 diabetes mellitus with diabetic chronic kidney disease; I50.32 Chronic diastolic (congestive) heart failure; N18.30 Chronic kidney disease, stage 3 unspecified; Z79.4 Long term (current) use of insulin | CPT/HCPCS: 99214 ==

== ENCOUNTER 2025-02-28 09:50 | Outpatient (CLI) | payer MEDICARE, MEDICAID, SELFPAY ==
[2025-02-28 10:33] LABS: Basophils # 0.1 10^3/uL (0.0-0.1); Basophils % 0.8 %; Eosinophils # 0.3 10^3/uL (0.0-0.8); Eosinophils % 2.5 %; Hematocrit 31.2 % (36-47); Lymphocytes # 1.3 10^3/uL (0.8-4.8); Lymphocytes % 12.6 %; Mean Corpuscular HGB Conc 32.1 g/dL (30-55); Mean Corpuscular Hemoglobin 29.4 pg (27-33); Mean Corpuscular Volume 91.8 fl (85-98); Mean Platelet Volume 11.1 fL (7.4-10.4); Monocytes # 0.7 10^3/uL (0.2-0.9); Monocytes % 7.1 %; Neutrophils # 7.83 10^3/uL (1.8-7.7); Neutrophils % 75.6 %; Nucleated Red Blood Cells % 0 %; Platelet Count 201 10^3/cmm (157-399); Red Cell Distribution Width 13.4 % (12.1-15.1); White Blood Count 10.36 10^3/uL (3.29-11.43)
[2025-02-28 10:49] LABS: Alanine Aminotransferase 10 U/L (0-33); Albumin Level 3.6 g/dL (3.5-5.2); Alkaline Phosphatase 125 U/L (35-105); Anion Gap 16.5 (5-19); Aspartate Amino Transferase 17 U/L (0-32); Blood Urea Nitrogen 33 mg/dL (8-23); Calcium 9.2 mg/dL (8.5-10.5); Carbon Dioxide 21 mmol/L (22-29); Chloride 107 mmol/L (98-107); Globulin 3.6 g/dL (1.3-4.6); Glomerular Filtration Rate 28.1 mL/min (90-130); Glucose 136 mg/dL (65-115); Osmolality Calculated 299 mOsm/kg (285-295); Potassium 4.5 mmol/L (3.5-5.1); Sodium 140 mmol/L (136-145); Total Bilirubin 0.2 mg/dL (0.15-1.2); Total Protein 7.2 g/dL (6.6-8.7)
[2025-02-28 10:51] LABS: Creatinine Urine, Random 83 mg/dL (28-217)
[2025-02-28 10:51] LABS: Estmated Average Glucose 123; Hemoglobin A1C 5.9 % (4.0-6.0)
--- NOTE | 2025-02-28 10:58 | XR_ITS ---
WS: [id number] Exam: XR acute abdomen series [id number] Date/Time of Exam: 02/28/2025 11:07 AM Reason For Exam: NAUSEA VOMITTING Chest x-ray compared to the prior study 01/30/2025. Lungs are fully expanded and clear. Normal cardiomediastinal silhouette for technique. No pleural effusions. Bony structures are intact. XR/XR acute abdomen series [id number] IMPRESSION: 1. Negative chest. Flat and erect abdomen. No sign of acute bowel obstruction or pneumoperitoneum. Small amounts of scattered large and small bowel gas suggesting mild adynamic ileus. Signs of prior cholecystectomy. Opaque density in the LEFT abdomen proba frank representing medication in the GI tract. Moderate degenerative change and l evoscoliosis of the L-spine. IMPRESSION: 1. Findings suggest mild ileus. No acute process noted at this time.
[2025-02-28 11:04] LABS: Microalbum Creatinine Ratio Ur 2229 mg/dL (0-20); Microalbumin Random Urine 185 ug/dL (0-20)
== END 2025-02-28 09:51 | disposition home or self-care (01) ==
LOC: LAB 09:55
PROVIDERS: PCP Internal Medicine; Visit Provider Internal Medicine
DX: R11.2 Nausea with vomiting, unspecified (principal); E11.65 Type 2 diabetes mellitus with hyperglycemia; R80.9 Proteinuria, unspecified; R93.5 Abnormal findings on diagnostic imaging of other abdominal regions, including retroperitoneum; M47.896 Other spondylosis, lumbar region; M41.86 Other forms of scoliosis, lumbar region
CPT/HCPCS: 36415; 74022; 80053; 82044; 83036; 85025

== ENCOUNTER 2025-04-18 11:31 | Outpatient (CLI) | payer MEDICARE, MEDICAID, SELFPAY ==
[2025-04-18 12:52] LABS: Basophils # 0.1 10^3/uL (0.0-0.1); Basophils % 1.1 %; Eosinophils # 0.2 10^3/uL (0.0-0.8); Eosinophils % 3.2 %; Hematocrit 29.7 % (36-47); Lymphocytes # 1.2 10^3/uL (0.8-4.8); Lymphocytes % 18.7 %; Mean Corpuscular HGB Conc 31.3 g/dL (30-55); Mean Corpuscular Volume 92.5 fl (85-98); Mean Platelet Volume 10.9 fL (7.4-10.4); Monocytes # 0.6 10^3/uL (0.2-0.9); Monocytes % 9.2 %; Neutrophils # 4.18 10^3/uL (1.8-7.7); Neutrophils % 67.3 %; Nucleated Red Blood Cells % 0 %; Platelet Count 203 10^3/cmm (157-399); Red Blood Count 3.21 10^6/uL (3.85-5.65); Red Cell Distribution Width 12.8 % (12.1-15.1); White Blood Count 6.21 10^3/uL (3.29-11.43)
[2025-04-18 13:13] LABS: Albumin Level 3.3 g/dL (3.5-5.2); Blood Urea Nitrogen 36 mg/dL (8-23); Calcium 8.8 mg/dL (8.5-10.5); Carbon Dioxide 26 mmol/L (22-29); Chloride 101 mmol/L (98-107); Glomerular Filtration Rate 24.9 mL/min (90-130); Glucose 140 mg/dL (65-115); Phosphorus 3.4 mg/dL (2.5-4.5); Sodium 140 mmol/L (136-145)
[2025-04-18 13:20] LABS: Parathyroid Hormone 184.4 pg/mL (15-65)
[2025-04-18 13:28] LABS: 25 Hydroxy Vitamin D 39 ng/mL (30-100)
== END 2025-04-18 11:32 | disposition home or self-care (01) ==
PROVIDERS: PCP Internal Medicine; Visit Provider Registered Nurse
DX: N18.4 Chronic kidney disease, stage 4 (severe) (principal)
CPT/HCPCS: 36415; 80069; 82306; 82310; 83970; 85025

== ENCOUNTER 2025-07-24 07:16 | Observation (INO) | payer OTHER, MEDICAID, SELFPAY ==
--- OUTSIDE RECORDS SUMMARY | 2025-07-02 09:20 | XMS_ITS ---
Author Organization [facility] Address [address] [place] [address] Care Team Providers Care Lamp [employer] [address] [employer] Name Role Phone Coleman Padgett Primary Care Provider [phone] REASON FOR VISIT CHECK UP Encounters Encounter Location Date Provider Diagnosis [facility] [address] [address] 07/02/2025 Coleman Padgett Plan Of Treatment Next Appt Details Provider Name:Coleman Padgett, 11/06/2025 01:20:00 PM, [address] [facility], [place], [address], Progress Notes * SCARLET Jennifer IsraelOB: (70 yo F)Acc No.[id number]:07/02/2025 Progress Notes Patient: Eleazar couch Jennifer Susie Provider: Fátima Padgett MD :[id number] A ge:70 Y S ex:Female Date:07/02/2025 Address:[address] [place] [address] , [place]I [place], [id number] Subjective: * Chief Complaints: * C HECK UP Billing Information: * Procedure Codes: Care Plan Details* * Electronic signature of Jose Padgett MD on 07/24/2025 at 07:21 AM CDT Sign off status: Pending * Provider: Fátima Padgett MD Date: 0 07/02/2025 Generated for Erasto deal/Bacilio/Denise on: 0 07/24/2025 07:21 AM CDT
--- OUTSIDE RECORDS SUMMARY | 2025-07-23 08:20 | XMS_ITS ---
Author Organization [facility] Address [address] [place] [address] Care Team Providers Care Jewel Bearing Turner Name Role Phone Coleman Padgett Primary Care Provider Allergies Allergen (clinical drug ingredient) Drug/Non Drug Allergy documented on EMR Reaction Allergy Type Onset Date Status sulfamethoxazole / trimethoprim Bactrim nausea vomitting Drug Allergy Active gabapentin Gabapentin Unknown Drug Allergy Activ e lisinopril Lisinopril cough Drug Allergy 05/08/2009 Inac tive Neosporin Unknown Drug Allergy 06/10/2006 Active Neosporin AF skin reaction Drug Allergy Active milnacipran Savella Unknown Drug Allergy Activ e codeine Codeine Unknown Drug Allergy 06/10/2006 Active Latex Latex gifford skin Allergy Active REASON FOR VISIT 3 WEEK F/U, Diabetic Eye and Foot Exam is needed Medications Medication SIG (Take, Route, Frequency, Duration) Notes Start Date End Date Status Pantoprazole Sodium 40 MG Tablet Delayed Release 1 tablet Orally Once a day; Duration: 30 days Active FLUoxetine HCl 20 MG Capsule 2 AM, 1PM Oral Ut dictum; Duration: 60 days Fluoxetine 20mg Capsules One cap po TID #90 (Ninety) capsule(s) 1 Active Magnesium Oxide 400 MG Tablet 1 tablet as needed Orally Once a day; Duration: 30 days Active Vitamin D3 50 MCG (1999) Capsule 1 capsule Orally Once a day; Duration: 30 days Active Vitamin B12 500 MCG Tablet 1 tablet Orally Once a day; Duration: 30 days Active acesulfame potassium (bulk) *Reorder from [facility] for eRx and Interaction Alerts* Not-Taking Calcium Carbonate-Vitamin D3 *Reorder from [facility] for eRx and Interaction Alerts* Not-Taking hydrALAZINE HCl 25 MG Tablet 1 tablet with food Orally Three times a day; Duration: 30 days Active Hydroxychloroquine *Reorder from [facility] for eRx and Interaction Alerts* Not-Taking Procardia XL 60 MG Tablet Extended Release 24 Hour Take 1 tablet(s) by mouth daily Oral; Duration: 30 Procardia XL (Nifedipine) 60mg Tablets, Extended Release Take 1 tablet(s) by mouth daily #30 (Thirty) tablet(s) 1 Not-Taking Simvastatin 40 MG Tablet Take 1 tablet(s) by mouth at bedtime Oral; Duration: 30 Simvastatin 40mg Tablet Take 1 tablet(s) by mouth at bedtime #30 (Thirty) tablet(s) 0 Not-Taking Eliquis *Pick strength-form from [facility] for eRX* Not-Taking Metoprolol Succinate *Pick strength-form from [facility] for eRX* Not-Taking PROzac *Pick strength-form from [facility] for eRX* Not-Taking isosorbide (bulk) *Reorder from [facility] for eRx and Interaction Alerts* Not-Taking Carvedilol *Pick strength-form from [facility] for eRX* Not-Taking Pregabalin 100 MG Capsule 1 capsule Orally BID; Duration: 30 days 5 01/20/20 26 Active Aspirin 81 MG Tablet Chewable 1 tab(s) po qd Oral; Duration: 30 Aspirin (ASA) 81mg Chewable Tablet 1 tab(s) po qd #30 (Thirty) tablet(s) 1 Not-Taking Lasix *Pick strength-form from [facility] for eRX* Not-Taking dyclonine HCl (bulk) *Reorder fr [facility] for eRx and Interaction Alerts* Not-Taking amLODIPine Besylate 10 MG Tablet 1 tablet Orally Once a day Not-Taking Potassium Chloride ER 20 MEQ Tablet Extended Release 1 tablet Orally Once a week Not-Taking Vitamin C 250 MG Tablet Chewable 1 tablet Orally Once a day Not-Taking Hydroxychloroquine Sulfate 200 MG Tablet 2 tablets Orally daily Not-Taking Metoprolol Succinate ER 100 MG Tablet Extended Release 24 Hour Take 1 tablet(s) by mouth daily Oral; Duration: 30 Metoprolol 100mg Tablets, Extended Release Take 1 tablet(s) by mouth daily #30 (Thirty) tablet(s) 1 Not-Taking Ondansetron 4 MG Tablet Disintegrating 1 tablet on the tongue and allow to dissolve Orally as needed; Duration: 30 days Not-Taking Isosorbide Mononitrate ER 120 MG Tablet Extended Release 24 Hour 1 tablet in the morning Orally Once a day; Duration: 30 days Not-Taking Polyethylene Glycol 3350 17 GM/SCOOP Powder 1 scoop mixed with 8 ounces of fluid Orally Once a day Not-Taking diazePAM 10 MG Tablet 1 or 2 Orally Ut dictum; Duration: 1 days 4 Not-Taking Stimulant Laxative 8.6-50 MG Tablet 1 tablet as needed Orally Twice a day; Duration: 30 days Not-Taking Metoclopramide HCl 5 MG Tablet 1 tablet before meals Orally Twice a day; Duration: 30 days 5 Not-Taking Sennosides-Docusate Sodium 8.6-50 MG Tablet 1 tablet as needed Orally Twice a day Not-Taking Furosemide 40 MG Tablet 1 tablet Orally Once a day Not-Taking Albuterol Sulfate HFA 108 (90 Base) MCG/ACT Aerosol Solution INHALE 2 PUFFS INTO LUNGS EVERY 4 HOURS NEEDED FOR SHORTNESS OF BREATH OR WHEEZING; Duration: 16 Not-Taking hydrOXYzine Pamoate 50 mg Capsule take 1 capsule BY MOUTH AT BEDTIME; Duration: 30 Not-Taking Desloratadine 5 mg Tablet TAKE 1 TABLET BY MOUTH EVERY DAY; Duration: 30 Not-Taking Zonisamide 25 mg Capsule take 1 capsule BY MOUTH EVERY TWELVE HOURS; Duration: 30 Not-Taking Montelukast Sodium 10 mg Tablet TAKE 1 TABLET BY MOUTH EVERY DAY; Duration: 30 Not-Taking Losartan Potassium 100 mg Tablet TAKE 1 TABLET BY MOUTH EVERY DAY; Duration: 30 Not-Taking OneTouch Ultra - Strip TEST THREE TIMES DAILY DIRECTED; Duration: 30 Active Potassium Chloride ER 10 mEq Tablet Extended Release TAKE 1 TABLET BY MOUTH TWICE DAILY with food; Duration: 30 Active Easy Touch Pen Lancaster 29G X 12MM Miscellaneous as directed; Duration: 30 days 4 Active Needle (Disp) 29G X 1/2 Miscellaneous as directed; Duration: 30 days 4 Active Tresiba FlexTouch 100 UNIT/ML Solution Pen-injector INJECT 70 UNITS SUBCUTANEOUSLY DAILY DIRECTED FOR 30 DAYS; Duration: 30 Active OneTouch Delica Plus [id number] - Miscellaneous USE THREE TIMES DAILY DIRECTED; Duration: 30 Active Stool Softener & Laxative 8.6-50 MG Tablet 1 tablet as needed Orally Twice a day; Duration: 30 days Active Tresiba FlexTouch 200 UNIT/ML Solution Pen-injector INJECT 48 UNITS SUBCUTANEOUSLY DAILY DIRECTED FOR 30 DAYS Subcutaneous Daily; Duration: 30 days Active Triamcinolone Acetonide 0.025 % Cream APPLY ONCE A DAY; Duration: 30 Active Nitroglycerin 0.4 mg Tablet Sublingual DISSOLVE 1 TABLET UNDER THE TONGUE EVERY 5 MINUTES NEEDED FOR CHEST PAIN. DO NOT EXCEED A TOTAL OF 3 DOSES IN 15 MINUTES. DIRECTED; Duration: 30 Active Leflunomide 10 MG Tablet 1 tablet Orally Once a day; Duration: 30 days 08/03/20 25 Active Torsemide 100 MG Tablet TAKE 1 TABLET BY MOUTH EVERY DAY; Duration: 30 Active metOLazone 2.5 MG Tablet 1 tablet Orally Once a week; Duration: 90 days 07/11/20 26 Active HumaLOG KwikPen 100 UNIT/ML Solution Pen-injector as directed Subcutaneous daily; Duration: 30 days Active Social History Tobacco Use: Social History Observation Description Date Details (start date - stop date) Former Smoker NA - NA Social History Tobacco Use: Social Info Question Answer Notes Tobacco Control (Standard) Tobacco use: Former smoker How long has it been since you last smoked? Greater than 10 years Section Notes: Depression - 11/01/24 Tobacco - 11/01/24 CIME Dep/tob - 02/19/25 Vital Signs Temperature 98.8 degrees Fahrenheit 07/23/20 25 Blood pressure systolic 172 mm Hg 07/23/20 25 Blood pressure diastolic 81 mm Hg 025 Heart Rate 81 /min 07/23/2025 Height 64 in 07/23/2025 Weight 270 lbs 07/23/2025 BMI 46.34 kg/m2 07/23/2025 Oximetry 93 % 07/23/2025 Height-cm 162.56 cm 07/23/2025 Weight-kg 122.47 kg 07/23/2025 Encounters Encounter Location Date Provider Diagnosis [facility] [address] [place] [id number] 07/23/2025 Coleman Padgett Fluid retention R60. 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 and Peripheral polyneuropathy G62.9 Assessments Encounter Date Diagnosis (ICD Code) Assessment Notes Treatment Notes Treatment Clinical Notes Section Notes 07/23/2025 Fluid retention (ICD-10 - R60.9) 07/23/2025 Essential hypertension (ICD-10 - I10) 07/23/2025 Type 2 diabetes mellitus with hyperglycemia (ICD-10 - E11.65) 07/23/2025 Periorbital dermatitis (ICD-10 - L30.9) 07/23/2025 Peripheral polyneuropathy (ICD-10 - G62.9) Plan Of Treatment Medication Medication Name Sig Start Date Stop Date Notes Pregabalin 100 MG Capsule 1 capsule Oral ly BID; Duration: 30 days 07/23/2025 01/19/2026 Next Appt Details Follow Up: 3 Months, Reason: Provider Name:Coleman Padgett, 11/06/2025 01:20:00 PM, [address] [place] [address], [phone], History and Physical Notes * HPI (History of Present Illness) Category Sub-Category Detail Notes Category Not es Patient Complaints Patient h ere for follow up- the lyisaiaha is helping a lot- pt states her kidney doctor (Dr. Mayorga) would like for her to take 75mg BID instead of 100mg BID- pt states she only takes 1- 100mg tablet daily and it is helping- pt states she is doing good- pt states the insurance is sending a nurse to her house to do AWV on 08/05/25 Examination Category Sub-Category Detail Notes Category Not es Examination GENERAL APPEARANCE: Awake/alert. No appar ent distress HEART: Regular rate and rhy thm without rubs, murmurs, or gallops. PMI nondisplaced ABDOMEN: Soft, nontender, non distended with active bowel sounds X4. No HSM or masses LUNGS: Clear to auscultatio n without rales, rhonchi, wheezing, tachypnea or air hunger Progress Notes * Jnenifer NOVAKOB: (70 yo F)Acc No.[id number]:07/23/2025 Progress Notes Patient: S Jennifer couch Provider: Fátima Padgett MD :[id number] A ge:70 Y S ex:Female Date:07/23/2025 Address:[address] [place] [address] EMANI [phone] Check Out:01:51 PM BOX PERSON Subjective: * Chief Complaints: * 3 WEEK F/UDiabetic Eye and Foot Exam is needed * HPI: P atient Complaints: Patient here for follow up- the aldo is helping a lot- pt states her kidney doctor (Dr. Mayorga) would like for her to take 75mg BID instead of 100mg BID- pt states she only takes 1- 100mg tablet daily and it is helping- pt states she is doing good- pt states the insurance is sending a nurse to her house to do AWV on 08/05/25. * ROS: G eneral/Constitutional: Patient denies f atigue , fever , night sweats. ? H ematology: Patient denies e asy bruising , bleeding problems , recent transfusion. R espiratory: Patient denies c ough , shortness of breath , wheezing.? C ardiovascular: Patient denies c hest pain , irregular heartbeat , swelling in hands/feet. G astrointestinal: Patient denies a bdominal pain, bloating , constipation , diarrhea , heartburn , blood in stool , nausea , vomiting. G enitourinary: Patient denies p ainful urination , blood in the urine , difficulty urinating. E NT: Patient denies e ar pain , nosebleed, runny nose, s ore throat. M usculoskeletal: Patient denies a rthritis\arthralgia , back pain , joint stiffness , muscle aches. S kin: Patient denies s kin lesion(s) , rash , acne. ? N eurologic: Patient denies d izziness , fainting , headache , memory loss , seizures. P sychiatric: Patient denies a nxiety , depressed mood , difficulty sleeping , suicidal thoughts. f ollow up- doing good. * Medical History: Irritable Bowel Syndrome Type 2 Diabetes: controlled; stroke 2005 PREVENTIVE HEALTH MAINTENANCE INFLUENZA VACCINE: was last done 09/13/2011 PNEUMOCOCCAL VACCINE: was last done 2001 TETANUS VACCINE: was last done 05/21/2007 Gastroparesis Kidney disease stage 4 Congestive heart failure Dementia Blind R eye Heart attack Medical History Verified * Surgical History: CholecystectomyHysterectomy: Cervical Ca; section: X 4; oophorectomy gall bladder removal section Cholecystectomy Tonsillectomy cataract-lens implants Surgical History verified. * Hospitalization/Major Diagno stic Procedure: C section x 4 Hospitalization Verified. * Family History: F ather: , heart, kidney disease. M other: , type II diabetes. M igrated Family History: Positive for Factor V Leiden. F amily History Verified.. * Social History: T obacco Use: T obacco Control (Standard) T obacco use: F ormer smoker H ow long has it been since you last smoked??Greater than 10 years S ocial History Verified. D epression - 11/01/24 Tobacco - 11/01/24 CIME Dep/tob - 02/19/25. * Medications: T akinghydrALAZINE HCl 25 MG Tablet 1 tablet with food Orally Three times a day Pantoprazole Sodium 40 MG Tablet Delayed Release 1 tablet Orally Once a day FLUoxetine HCl 20 MG Capsule 2 AM, 1PM Oral Ut dictum , Notes to Pharmacist: Fluoxetine 20mg Capsules One cap po TID #90 (Ninety) capsule(s)Magnesium Oxide 400 MG Tablet 1 tablet as needed Orally Once a day Vitamin D3 50 MCG (2000 UT) Capsule 1 capsule Orally Once a day Vitamin B12 500 MCG Tablet 1 tablet Orally Once a day Torsemide 100 MG Tablet TAKE 1 TABLET BY MOUTH EVERY DAY metOLazone 2.5 MG Tablet 1 tablet Orally Once a week , stop date 07/11/2026Pregabalin 100 MG Capsule 1 capsule Orally BID , stop date 10/31/2025HumaLOG KwikPen 100 UNIT/ML Solution Pen- injector as directed Subcutaneous daily Leflunomide 10 MG Tablet 1 tablet Orally Once a day , stop date 08/03/2025Stool Softener & Laxative 8.6-50 MG Tablet 1 tablet as needed Orally Twice a day Tresiba FlexTouch 200 UNIT/ML Solution Pen-injector INJECT 48 UNITS SUBCUTANEOUSLY DAILY DIRECTED FOR 30 DAYS Subcutaneous Daily Triamcinolone Acetonide 0.025 % Cream APPLY ONCE A DAY Nitroglycerin 0.4 mg Tablet Sublingual DISSOLVE 1 TABLET UNDER THE TONGUE EVERY 5 MINUTES NEEDED FOR CHEST PAIN. DO NOT EXCEED A TOTAL OF 3 DOSES IN 15 MINUTES. DIRECTED Potassium Chloride ER 10 mEq Tablet Extended Release TAKE 1 TABLET BY MOUTH TWICE DAILY with food Easy Touch Pen Lancaster 29G X 12MM Miscellaneous as directed Needle (Disp) 29G X 1/2 Miscellaneous as directed Tresiba FlexTouch 100 UNIT/ML Solution Pen-injector INJECT 70 UNITS SUBCUTANEOUSLY DAILY DIRECTED FOR 30 DAYS OneTouch Delica Plus [id number] - Miscellaneous USE THREE TIMES DAILY DIRECTED OneTouch Ultra - Strip TEST THREE TIMES DAILY DIRECTED Taking hydrALAZINE HCl 25 MG Tablet 1 tablet with food Orally Three times a day Taking Pantoprazole Sodium 40 MG Tablet Delayed Release 1 tablet Orally Once a day Taking FLUoxetine HCl 20 MG Capsule 2 AM, 1PM Oral Ut dictum , Notes to Pharmacist: Fluoxetine 20mg Capsules One cap po TID #90 (Ninety) capsule(s)Taking Magnesium Oxide 400 MG Tablet 1 tablet as needed Orally Once a day Taking Vitamin D3 50 MCG (2000 UT) Capsule 1 capsule Orally Once a day Taking Vitamin B12 500 MCG Tablet 1 tablet Orally Once a day Taking Torsemide 100 MG Tablet TAKE 1 TABLET BY MOUTH EVERY DAY Taking metOLazone 2.5 MG Tablet 1 tablet Orally Once a week , stop date 07/11/2026Taking Pregabalin 100 MG Capsule 1 capsule Orally BID , stop date 10/31/2025Taking HumaLOG KwikPen 100 UNIT/ML Solution Pen-injector as directed Subcutaneous daily Taking Leflunomide 10 MG Tablet 1 tablet Orally Once a day , stop date 08/03/2025Taking Stool Softener & Laxative 8.6-50 MG Tablet 1 tablet as needed Orally Twice a day Taking Tresiba FlexTouch 200 UNIT/ML Solution Pen-injector INJECT 48 UNITS SUBCUTANEOUSLY DAILY DIRECTED FOR 30 DAYS Subcutaneous Daily Taking Triamcinolone Acetonide 0.025 % Cream APPLY ONCE A DAY Taking Nitroglycerin 0.4 mg Tablet Sublingual DISSOLVE 1 TABLET UNDER THE TONGUE EVERY 5 MINUTES NEEDED FOR CHEST PAIN. DO NOT EXCEED A TOTAL OF 3 DOSES IN 15 MINUTES. DIRECTED Taking Potassium Chloride ER 10 mEq Tablet Extended Release TAKE 1 TABLET BY MOUTH TWICE DAILY with food Taking Easy Touch Pen Lancaster 29G X 12MM Miscellaneous as directed Taking Needle (Disp) 29G X 1/2 Miscellaneous as directed Taking Tresiba FlexTouch 100 UNIT/ML Solution Pen-injector INJECT 70 UNITS SUBCUTANEOUSLY DAILY DIRECTED FOR 30 DAYS Taking OneTouch Delica Plus [id number] - Miscellaneous USE THREE TIMES DAILY DIRECTED Taking OneTouch Ultra - Strip TEST THREE TIMES DAILY DIRECTED Not-TakingDesloratadine 5 mg Tablet TAKE 1 TABLET BY MOUTH EVERY DAY Zonisamide 25 mg Capsule take 1 capsule BY MOUTH EVERY TWELVE HOURS Montelukast Sodium 10 mg Tablet TAKE 1 TABLET BY MOUTH EVERY DAY Losartan Potassium 100 mg Tablet TAKE 1 TABLET BY MOUTH EVERY DAY Metoclopramide HCl 5 MG Tablet 1 tablet before meals Orally Twice a day Sennosides-Docusate Sodium 8.6-50 MG Tablet 1 tablet as needed Orally Twice a day Furosemide 40 MG Tablet 1 tablet Orally Once a day Albuterol Sulfate HFA 108 (90 Base) MCG/ACT Aerosol Solution INHALE 2 PUFFS INTO LUNGS EVERY 4 HOURS NEEDED FOR SHORTNESS OF BREATH OR WHEEZING hydrOXYzine Pamoate 50 mg Capsule take 1 capsule BY MOUTH AT BEDTIME diazePAM 10 MG Tablet 1 or 2 Orally Tx dictum Stimulant Laxative 8.6-50 MG Tablet 1 tablet as needed Orally Twice a day Ondansetron 4 MG Tablet Disintegrating 1 tablet on the tongue and allow to dissolve Orally as needed Isosorbide Mononitrate ER 120 MG Tablet Extended Release 24 Hour 1 tablet in the morning Orally Once a day Polyethylene Glycol 3350 17 GM/SCOOP Powder 1 scoop mixed with 8 ounces of fluid Orally Once a day amLODIPine Besylate 10 MG Tablet 1 tablet Orally Once a day Potassium Chloride ER 20 MEQ Tablet Extended Release 1 tablet Orally Once a week Vitamin C 250 MG Tablet Chewable 1 tablet Orally Once a day Hydroxychloroquine Sulfate 200 MG Tablet 2 tablets Orally daily Metoprolol Succinate ER 100 MG Tablet Extended Release 24 Hour Take 1 tablet(s) by mouth daily Oral , Notes to Pharmacist: Metoprolol 100mg Tablets, Extended Release T benjamin 1 tablet(s) by mouth daily # 30 (Thirty) tablet(s)Aspirin 81 MG Tablet Chewable 1 tab(s) po qd Oral , Notes to Pharmacist: Aspirin (ASA) 81mg Chewable Tablet 1 tab(s) po qd # 30 (Thirty) tablet(s)Lasix , Notes to Pharmacist: *Pick strength-form from [facility] for eRX*dyclonine HCl (bulk) , Notes to Pharmacist: *Reorder from [facility] for eRx and Interaction Alerts*Carvedilol , Notes to Pharmacist: *Pick strength-form from [facility] for eRX*Simvastatin 40 MG Tablet Take 1 tablet(s) by mouth at bedtime Oral , Notes to Pharmacist: Simvastatin 40mg Tablet T benjamin 1 tablet(s) by mouth at bedtime #30 (Thirty) tablet(s)Eliquis , Notes to Pharmacist: *[facility]*Metoprolol Succinate , Notes to Pharmacist: *[facility] for [facility]*PROzac , Notes to Pharmacist: *Pick strength-form from [facility] for eRX*isosorbide (bulk) , Notes to Pharmacist: *Reorder from [facility] for eRx and Interaction Alerts*acesulfame potassium (bulk) , Notes to Pharmacist: *Reorder from [facility] for eRx and Interaction Alerts*Calcium Carbonate-Vitamin D3 , Notes to Pharmacist: *Reorder from [facility] for eRx and Interaction Alerts*Hydroxychloroquine , Notes to Pharmacist: *Reorder from [facility] for eRx and Interaction Alerts*Procardia XL 60 MG Tablet Extended Release 24 Hour Take 1 tablet(s) by mouth daily Oral , Notes to Pharmacist: Procardia XL (Nifedipine) 60mg Tablets, Extended Release T benjamin 1 tablet(s) by mouth daily # 30 (Thirty) tablet(s)Medication List reviewed and reconciled with the patientNot-Taking Desloratadine 5 mg Tablet TAKE 1 TABLET BY MOUTH EVERY DAY Not-Taking Zonisamide 25 mg Capsule take 1 capsule BY MOUTH EVERY TWELVE HOURS Not-Taking Montelukast Sodium 10 mg Tablet TAKE 1 TABLET BY MOUTH EVERY DAY Not-Taking Losartan Potassium 100 mg Tablet TAKE 1 TABLET BY MOUTH EVERY DAY Not-Taking Metoclopramide HCl 5 MG Tablet 1 tablet before meals Orally Twice a day Not-Taking Sennosides-Docusate Sodium 8.6-50 MG Tablet 1 tablet as needed Orally Twice a day Not-Taking Furosemide 40 MG Tablet 1 tablet Orally Once a day Not- Taking Albuterol Sulfate HFA 108 (90 Base) MCG/ACT Aerosol Solution INHALE 2 PUFFS INTO LUNGS EVERY 4 HOURS NEEDED FOR SHORTNESS OF BREATH OR WHEEZING Not-Taking hydrOXYzine Pamoate 50 mg Capsule take 1 capsule BY MOUTH AT BEDTIME Not-Taking diazePAM 10 MG Tablet 1 or 2 Orally Ut dictum Not-Taking Stimulant Laxative 8.6- 50 MG Tablet 1 tablet as needed Orally Twice a day Not-Taking Ondansetron 4 MG Tablet Disintegrating 1 tablet on the tongue and allow to dissolve Orally as needed Not-Taking Isosorbide Mononitrate ER 120 MG Tablet Extended Release 24 Hour 1 tablet in the morning Orally Once a day Not-Taking Polyethylene Glycol 3350 17 GM/SCOOP Powder 1 scoop mixed with 8 ounces of fluid Orally Once a day Not-Taking amLODIPine Besylate 10 MG Tablet 1 tablet Orally Once a day Not-Taking Potassium Chloride ER 20 MEQ Tablet Extended Release 1 tablet Orally Once a week Not-Taking Vitamin C 250 MG Tablet Chewable 1 tablet Orally Once a day Not-Taking Hydroxychloroquine Sulfate 200 MG Tablet 2 tablets Orally daily Not-Taking Metoprolol Succinate ER 100 MG Tablet Extended Release 24 Hour Take 1 tablet(s) by mouth daily Oral , Notes to Pharmacist: Metoprolol 100mg Tablets, Extended Release T benjamin 1 tablet(s) by mouth daily # 30 (Thirty) tablet(s)Not-Taking Aspirin 81 MG Tablet Chewable 1 tab(s) po qd Oral , Notes to Pharmacist: Aspirin (ASA) 81mg Chewable Tablet 1 tab(s) po qd # 30 (Thirty) tablet(s)Not-Taking Lasix , Notes to Pharmacist: *[facility] for [facility]*Not-Taking dyclonine HCl (bulk) , Notes to Pharmacist: *Reorder from [facility] for eRx and Interaction Alerts*Not-Taking Carvedilol , Notes to Pharmacist: *Pick strength[facility] from [facility] for eRX*Not-Taking Simvastatin 40 MG Tablet Take 1 tablet(s) by mouth at bedtime Oral , Notes to Pharmacist: Simvastatin 40mg Tablet T benjamin 1 tablet(s) by mouth at bedtime # 30 (Thirty) tablet(s)Not-Taking Eliquis , Notes to Pharmacist: *Pick strength- form from [facility] for eRX*Not-Taking Metoprolol Succinate , Notes to Pharmacist: *Pick strength[facility]form from [facility] for eRX*Not-Taking PROzac , Notes to Pharmacist: *[facility] from [facility] for [facility]*Not-Taking isosorbide (bulk) , Notes to Pharmacist: *Reorder from [facility] for eRx and Interaction Alerts*Not-Taking acesulfame potassium (bulk) , Notes to Pharmacist: *Reorder from [facility] for eRx and Interaction Alerts*Not-Taking Calcium Carbonate-Vitamin D3 , Notes to Pharmacist: *Reorder from [facility] for eRx and Interaction Alerts*Not-Taking Hydroxychloroquine , Notes to Pharmacist: *Reorder from [facility] for eRx and Interaction Alerts*Not- Taking Procardia XL 60 MG Tablet Extended Release 24 Hour Take 1 tablet(s) by mouth daily Oral , Notes to Pharmacist: Procardia XL (Nifedipine) 60mg Tablets, Extended Release T benjamin 1 tablet(s) by mouth daily # 30 (Thirty) tablet(s)Medication List reviewed and reconciled with the patient * Allergies: N eosporin AF: skin reaction - AllergyBactrim: nausea vomitting - AllergyLatex: gifford skin - AllergyNeosporin: Allergy - Onset Date [id number]: Allergy - Onset Date [id number]: AllergySavella: AllergyyesAllergies Verified. Objective: * Vitals: H t: 64 in, Wt:270lbs, Wt-k.47 kg, BMI:46.34Index, Temp:98.8F, BP:172/81mm Hg, HR:81/min, Oxygen sat %:93%, O2 Source: RA, Pain scale: 0 1-10, Ht-cm: 162.56 cm. * Examination: E xamination: GENERAL APPEARANCE: A wake/alert. No apparent distress.? HEART: R egular rate and rhythm without rubs, murmurs, or gallops. PMI nondisplaced. LUNGS: C lear to auscultation without rales, rhonchi, wheezing, tachypnea or air hunger. ABDOMEN: S oft, nontender, nondistended with active bowel sounds X4. No HSM or masses. Assessment: * Assessment: 1. F luid retention - R60.9 (Primary) 2 . E ssential hypertension - I10? 3. T ype 2 diabetes mellitus with hyperglycemia - E11.65 4 . P eriorbital dermatitis - L30.9 5 . P eripheral polyneuropathy - G62.9 Plan: * Treatment: * Procedure Codes: 3 079F DIAST BP 80-89 MM [id number] AMNT PAIN NOTED NONE PRSNT * Preventive Medicine: Fall Risk Assessment: F all Risk Assessment Fall Risk Assessment N o falls in the past year None Screenings: L AST WELLNESS VISIT (if today's visit is wellness, use today's date): Date: 0 07/23/2025 Nurse going to patients home to perform AWV B [facility]ER SCREENING: Date of most recent screenin 01/03/2024 C ARE FOR OLDER ADULTS Functional Status R equires wheelchair Function Status Assessment date 0 07/23/2025 Medication review date 0 07/23/2025 Pain Assessment date 0 07/23/2025 C ERVICAL CANCER SCREENING: Date of the last PAP Smear : U nsure of date of last pap C OLORECTAL CANCER SCREENING: Date of last colonoscopy 0 12/30/2023 D EPRESSION SCREENING: Date of most recent screenin 01/28/2025 D IABETIC EYE EXAM Date of last dilated eye exam * V ACCINATIONS: Influenza vaccinations: o curs sporadically * Follow Up: 3 Months Billing Information: * Visit Code: 97059 Office Visit, Est Pt., Level 4. * Procedure Codes: 3079F DIAST BP 80-89 MM HG. 1126F AMNT PAIN NOTED NONE PRSNT. Care Plan Details* * Electronic signature of Jose Padgett MD on 07/24/2025 at 07:21 AM CDT Sign off status: Pending * Provider: Fátima Padgett MD Date: 0 07/23/2025 Generated for Erasto deal/Bacilio/Denise on: 0 07/24/2025 07:21 AM CDT
[2025-07-24] VITALS (8 sets, daily range): BP systolic 129–229; BP diastolic 54–95; PULSE 68–84; RESP 17; TEMP 37; O2SAT 94–99; BMI 48.6; BMI 47.8
--- OUTSIDE RECORDS SUMMARY | 2025-07-24 07:22 | XMS_ITS | Encounter Summary ---
Author Organization [place] [facility] [employer] Address [address] [facility] [address] [place] [address] Phone Care Team Providers Care Nurse Liaison Name Role Phone Coleman Padgett MD Primary Care Provider [phone] Reason for Visit * Reason Comments Med Refill Encounter Details Date Type Department Care Team (Late Contact Info) Description 08/17/2021 Refill [facility] [address] [place] [address] Heriberto Calderon MD [address] [place] [address] Social History Tobacco Use Types Packs/Day Years Used Date Smoking Tobacco: Former Cigarettes Q uit: 1991 Smokeless Tobacco: Never Alcohol Use Standard Drinks/Week Comments Not Currently 0 (1 standard drink = 0.6 oz pur e alcohol) Comments Unknown Sex and Gender Information Value Date Recorded Sex Assigned at Not on file Legal Sex Female 1:19 PM EDT Gender Identity Not on file Sexual Orientation Not on file documented as of this encounter Plan of Treatment Upcoming Encounters Date Type Department Care Team (Late st Contact Info) Description 08/27/2025 11:00 AM CDT Office Visit [facility] [address] [place] [address] Leticia yAala NP [address] [place] [address] documented as of this encounter Visit Diagnoses Not on filedocumented in this encounter Care Teams Nurse Liaison Relationship Specialty Start Date End Date Coleman Padgett MD [address] [place] [phone] PCP - General Internal Medicine 12/24/24 documented as of this encounter
--- OUTSIDE RECORDS SUMMARY | 2025-07-24 07:22 | XMS_ITS | Encounter Summary ---
Author Organization [place] [facility] [place] Address [address] [facility] [address] [place] [address] Phone Care Team Providers Care Computerized Mill Mill Recorder Name Role Phone Coleman Padgett MD Primary Care Provider [phone] Encounter Details Date Type Department Care Team (Late Contact Info) Description 04/30/2022 Orders Only [facility] [address] [facility] [address] [place] [address] Acute kidney failure, not otherwise specified (HCC) Social History Tobacco Use Types Packs/Day Years [...] Encounters Date Type Department Care Team (Late Contact Info) Description 08/27/2025 11:00 AM CDT Office Visit [facility] [address] [place] [address] Leticia Ayala [facility] DIRECT[facility] [address] [facility] [address] [place] [address] documented as of this encounter Visit Diagnoses Diagnosis Acute kidney failure, not otherwise specified (HCC) documented in this encounter Care Teams Computerized Mill Mill Recorder Relationship Specialty Start Date End Date Coleman Padgett MD [address] [place] [phone] PCP - General Internal Medicine 12/24/24 documented as of this encounter
--- OUTSIDE RECORDS SUMMARY | 2025-07-24 07:22 | XMS_ITS | Encounter Summary ---
Author Organization [facility] Address [address] [place] [address] Care Team Providers Care Setter Automatic Spinning Lathe Name Role Phone Savannah Martinez MD Primary Care Provider [phone] Encounter Details Date Type Department Care Team (Late st Contact Info) Description 01/01/2024 Lab Requisition [facility] Laboratory Services [address] [place] [address] [place] [address] Christi Gonzalez MD [address] [place] [address] Social History Tobacco Use Types Packs/Day Years Used Date Smoking Tobacco: Former Cigarettes Q uit: 11/21/1990 Smokeless Tobacco: Never Alcohol Use Standard Drinks/Week Comments No 0 (1 standard drink = 0.6 oz pur e alcohol) Feeling Safe Answer Date Recorded Are you in a relationship wi th someone who hurts you emotionally and/or physically? No 09/05/2023 Food Insecurity Answer Date Recorded Social/Environmental Concerns No concerns Transportation Needs Answer Date Record ed Social/Environmental Concerns No concerns Housing Stability Answer Date Recorded Social/Environmental Concerns No concerns Utility Needs Answer Date Recorded Social/Environmental Concerns No concerns Comments Unknown Sex and Gender Information Value Date Recorded Sex Assigned at Not on file Legal Sex Female 2:41 PM ROD MILL OPERATOR Gender Identity Not on file Sexual Orientation Not on file documented as of this encounter Plan of Treatment Not on file documented as of this encounter Procedures Procedure Name Priority Date/Time Associated Diagnosis Comments IRON, TIBC, AND PERCENT SATURATION Routine 01/01/2024 4:15 AM ROD MILL OPERATOR FERRITIN Routine 01/01/2024 4:15 AM ROD MILL OPERATOR documented in this encounter Results * (ABNORMAL) IRON, TIBC, AND PERCENT SATURATION (01/01/2024 4:15 AM ROD MILL OPERATOR) IRON 32(L) 37 - 145 ug/dL 01/01/2024 6:27 AM ROD MILL OPERATOR [facility] TIBC 128(L) 250 - 450 ug/dL 01/01/2024 6:27 AM ROD MILL OPERATOR [facility] IRON % SATURATION 25 15 - 60 % 01/01/2024 6:27 AM ROD MILL OPERATOR [facility] Blood Collection / Unknown 01/01/2024 4:15 AM ROD MILL OPERATOR 01/01/2024 5:47 AM ROD MILL OPERATOR Christi Gonzalez MD CHEMISTRY ORDERABLES Final Resu lt Performing Organization Address City/[facility]/ZIP Co de Phone Number [facility] CLIA # [id number] [address] [place] [address] * (ABNORMAL) FERRITIN (01/01/2024 4:15 AM ROD MILL OPERATOR) FERRITIN 427.6(H) 13.0 - 150.0 ng/mL 01/01/2024 6:27 AM ROD MILL OPERATOR [facility] Blood Collection / Unknown 01/01/2024 4:15 AM ROD MILL OPERATOR 01/01/2024 5:47 AM ROD MILL OPERATOR Narrative [facility] - 01/01/2024 6:27 AM ROD MILL OPERATOR Premenopausal Range 10-150 ng/mL Postmenopausal Range 10-291 ng/mL Christi Gonzalez MD CHEMISTRY ORDERABLES Final Resu lt [facility] # [id number] [address] [facility] [place] [address] documented in this encounter Visit Diagnoses Not on filedocumented in this encounter Care Teams Setter Automatic Spinning Lathe Relationship Specialty Start Date End Date Savannah [place] MD [address] [place], [place] [phone] PCP - General Family Practice 08/21/23 documented as of this encounter
--- OUTSIDE RECORDS SUMMARY | 2025-07-24 07:22 | XMS_ITS | Encounter Summary ---
Author Organization [facility] Address [address] [place] [address] Care Team Providers Care Event Operations Manager Name Role Phone Savannah [place] MD Primary Care Provider [phone] Encounter Details Date Type Department Care Team (Late st Contact Info) Description 12/31/2023 Lab Requisition [facility] Laboratory Services [address] [place] [address] [place] [address] Christi Gonzalez MD [address] [place] [address] Social History Tobacco Use Types [...] on file Legal Sex Female 2:41 PM PAINT STOCK CLERK Gender Identity Not on file Sexual Orientation Not on file documented as of this encounter Plan of Treatment Not on file documented as of this encounter Procedures Procedure Name Priority Date/Time Associated Diagnosis Comments CBC WITH DIFFERENTIAL Routine 12/31/2023 3:00 AM PAINT STOCK CLERK VANCOMYCIN LEVEL RANDOM Routine 12/31/2023 3:00 AM PAINT STOCK CLERK COMPREHENSIVE METABOLIC PANEL Routine 12/31/2023 3:00 AM PAINT STOCK CLERK documented in this encounter Results * (ABNORMAL) CBC WITH DIFFERENTIAL (12/31/2023 3:00 AM PAINT STOCK CLERK) [facility] WBC 8.4 4.8 - 10.8 K/uL 12/31/2023 5:39 AM [facility] RBC 2.85(L) 4.20 - 5.40 M/uL 12/31/2023 5:39 AM [facility] HEMOGLOBIN 8.1(L) 12.0 - 16.0 g/dL 12/31/2023 5:39 AM [facility] HEMATOCRIT 26.0(L) 36.0 - 46.0 % 12/31/2023 5:39 AM [facility] MCV 91.2 84.0 - 103.0 fL 12/31/2023 5:39 AM [facility] MCH 28.4 27.0 - 34.0 pg 12/31/2023 5:39 AM [facility] MCHC 31.2 30.0 - 35.0 g/dL 12/31/2023 5:39 AM [facility] RDW 15.7(H) 11.0 - 14.5 % 12/31/2023 5:39 AM [facility] RDW-STDEV 51.8 37.0 - 54.0 fL 12/31/2023 5:39 AM [facility] PLATELETS 136(L) 140 - 440 K/uL 12/31/2023 5:39 AM [facility] MPV 8.8(L) 8.9 - 12.8 fL 12/31/2023 5:39 AM [facility] NEUTROPHILS 70 42 - 75 % 12/31/2023 5:39 AM [facility] LYMPHOCYTES 8(L) 24 - 44 % 12/31/2023 5:39 AM [facility] MONOCYTES 11(H) 2 - 10 % 12/31/2023 5:39 AM [facility] EOSINOPHILS 8(H) 0 - 7 % 12/31/2023 5:39 AM [facility] BASOPHILS 1 0 - 1 % 12/31/2023 5:39 AM [facility] IMMATURE GRANULOCYTES 2 0 - 2 % 12/31/2023 5:39 AM [facility] NEUTROPHIL ABSOLUTE 5.90 2.00 - 8.00 K/uL 12/31/2023 5:39 AM [facility] LYMPHOCYTE ABSOLUTE 0.71(L) 1.20 - 4.00 K/uL 12/31/2023 5:39 AM [facility] MONOCYTE ABSOLUTE 0.92(H) 0.10 - 0.60 K/uL 12/31/2023 5:39 AM [facility] EOSINOPHIL ABSOLUTE 0.68 0.00 - 0.70 K/uL 12/31/2023 5:39 AM [facility] BASOPHILS ABSOLUTE 0.08 0.00 - 0.20 K/uL 12/31/2023 5:39 AM [facility] IMMATURE GRANULOCYTES ABSOLUTE 0.15(H) 0.00 - 0.10 K/uL 12/31/2023 5:39 AM [facility] Blood Collection / Unknown 12/31/2023 3:00 AM PAINT STOCK CLERK 12/31/2023 5:35 AM [facility] us Christi Gonzalez MD HEMATOLOGY ORDERABLES Final Res ult [facility] CLIA # [id number] [address] [address] [place] [address] * VANCOMYCIN LEVEL RANDOM (12/31/2023 3:00 AM PAINT STOCK CLERK) Pathologist [facility] VANCOMYCIN, RANDOM 10.3 5.0 - 50.0 ug/mL 12/31/2023 6:12 AM [facility] Blood Collection / Unknown 12/31/2023 3:00 AM PAINT STOCK CLERK 12/31/2023 5:35 AM [facility] Narrative [facility] - 12/31/2023 6:12 AM [facility] Vancomycin Therapeutic Ranges: Vancomycin Trough: 10 - 20 mcg/mL Vancomycin Peak: 25 - 50 mcg/mL us Christi Gonzalez MD CHEMISTRY ORDERABLES Final Resu lt [facility] CLIA # [id number] [facility] [address] * (ABNORMAL) COMPREHENSIVE METABOLIC PANEL (12/31/2023 3:00 AM [facility]) [facility] SODIUM 139 136 - 145 mmol/L 12/31/2023 6:29 AM [facility] POTASSIUM 2.9(L) 3.5 - 5.1 mmol/L 12/31/2023 6:29 AM [facility] CHLORIDE 102 98 - 107 mmol/L 12/31/2023 6:29 AM [facility] CO2 27 22 - 29 mmol/L 12/31/2023 6:29 AM [facility] CALCIUM 9.0 8.8 - 10.2 mg/dL 12/31/2023 6:29 AM [facility] BUN 27(H) 8 - 23 mg/dL 12/31/2023 6:29 AM [facility] CREATININE 1.84(H) 0.51 - 0.95 mg/dL 12/31/2023 6:29 AM [facility] GLUCOSE 185(H) 74 - 99 mg/dL 12/31/2023 6:29 AM [facility] TOTAL PROTEIN 6.1(L) 6.4 - 8.3 g/dL 12/31/2023 6:29 AM [facility] ALBUMIN 3.3(L) 3.5 - 5.2 g/dL 12/31/2023 6:29 AM [facility] BILIRUBIN TOTAL 0.4 0.2 - 1.0 mg/dL 12/31/2023 6:29 AM [facility] ALKALINE PHOSPHATASE 86 35 - 104 U/L 12/31/2023 6:29 AM [facility] AST 32 10 - 35 U/L 12/31/2023 6:29 AM [facility] ALT 29 <=35 U/L 12/31/2023 6:29 AM [facility] GFR 30(L) >=60 mL/min/1. 73 sq meter 12/31/2023 6:29 AM [facility] Comment:eGFR calculated with 2020 CKD-EPI equation. Vegetarian diet, extremely high or low muscle mass, and may affect results. Cystatin C with Glomerular Filtration Rate is a suitable alternative for these patients. ANION GAP 10 9 - 20 mmol/L 12/31/2023 6:29 AM [facility] Blood Collection / Unknown 12/31/2023 3:00 AM PAINT STOCK CLERK 12/31/2023 5:35 AM PAINT STOCK CLERK us Christi Gonzalez MD CHEMISTRY ORDERABLES Final Resu lt [facility] CLIA # [id number] [address] [place] [address] [place] [address] documented in this encounter Visit Diagnoses Not on filedocumented in this encounter Care Teams Event Operations Manager Relationship Specialty Start Date End Date Savannah Martinez MD [address] [place], [place] [phone] PCP - General Family Practice 08/21/23 documented as of this encounter
--- OUTSIDE RECORDS SUMMARY | 2025-07-24 07:22 | XMS_ITS | Encounter Summary ---
Author Organization [facility] Address [address] [place] [address] Care Team Providers Care Wagon Driller Name Role Phone Savannah Martinez MD Primary Care Provider [phone] Encounter Details Date Type Department Care Team (Late st Contact Info) Description 01/02/2024 Lab Requisition [facility] Laboratory Services [address] [place] [address] [place] [address] Christi Gonzalez MD [address] [place] [address] Social History Tobacco Use Types [...] on file Legal Sex Female 2:41 PM HARNESS REPAIRER Gender Identity Not on file Sexual Orientation Not on file documented as of this encounter Plan of Treatment Not on file documented as of this encounter Procedures Procedure Name Priority Date/Time Associated Diagnosis Comments HEPATITIS B SURFACE AB, QUANT Routine 01/02/2024 3:15 AM HARNESS REPAIRER HEPATITIS B SURFACE ANTIGEN Routine 01/02/2024 3:15 AM HARNESS REPAIRER CBC WITH DIFFERENTIAL Routine 01/02/2024 3:15 AM HARNESS REPAIRER VANCOMYCIN LEVEL RANDOM Routine 01/02/2024 3:15 AM HARNESS REPAIRER COMPREHENSIVE METABOLIC PANEL Routine 01/02/2024 3:15 AM HARNESS REPAIRER documented in this encounter Results * VANCOMYCIN LEVEL RANDOM (01/02/2024 3:15 AM HARNESS REPAIRER) Pathologist [facility] VANCOMYCIN, RANDOM 20.6 5.0 - 50.0 ug/mL 01/02/2024 9:45 AM HARNESS REPAIRER [facility] Blood Collection / Unknown 01/02/2024 3:15 AM HARNESS REPAIRER 01/02/2024 8:27 AM HARNESS REPAIRER Narrative [facility] - 01/02/2024 9:45 AM HARNESS REPAIRER Vancomycin Therapeutic Ranges: Vancomycin Trough: 10 - 20 mcg/mL Vancomycin Peak: 25 - 50 mcg/mL us Christi Gonzalez MD CHEMISTRY ORDERABLES Final Resu lt [facility] CLIA # [id number] [facility] [address] [place] [address] * HEPATITIS B SURFACE ANTIGEN (01/02/2024 3:15 AM HARNESS REPAIRER) Pathologist [facility] HEPATITIS B SURFACE AG NON-REACT JUANI Non-react juani 01/02/2024 10:41 AM HARNESS REPAIRER [facility] Comment:A non-reactive test result does not exclude the possibility of exposure to or infection with hepatitis B. Blood Collection / Unknown 01/02/2024 3:15 AM HARNESS REPAIRER 01/02/2024 8:27 AM HARNESS REPAIRER Christi Gonzalez MD CHEMISTRY ORDERABLES Final Resu lt Performing Organization Address [facility]/ZIP Co de Phone Number [facility] CLIA # [id number] [address] [facility] [place] [address] * (ABNORMAL) HEPATITIS B SURFACE AB, QUANT (01/02/2024 3:15 AM HARNESS REPAIRER) Pathologist [facility] HEPATITIS B SURFACE AB <5(L) > OR = 10 mIU/mL 01/03/2024 11:57 AM HARNESS REPAIRER [facility] Comment: Patient does not have immunity to hepatitis B virus. For additional information, please refer to http://education.Cookstr/faq/ECZ968 (This link is being provided for informational/ educational purposes only). FASTING:UNKNOWN FASTING: UNKNOWN Blood Collection / Unknown 01/02/2024 3:15 AM HARNESS REPAIRER 01/02/2024 8:27 AM HARNESS REPAIRER Narrative [facility] - 01/03/2024 11:57 AM HARNESS REPAIRER Performing Organization Information: Site ID: [place] Name: [facility] Address: [id number] [place] [address] [place] [address] Director: Shanon Cuba MD us Christi Gonzalez MD CHEMISTRY ORDERABLES Final Resu lt Performing Organization Address City/[facility]/ZIP Co de Phone Number [facility] * (ABNORMAL) CBC WITH DIFFERENTIAL (01/02/2024 3:15 AM HARNESS REPAIRER) WBC 7.9 4.8 - 10.8 K/uL 01/02/2024 8:33 AM HARNESS REPAIRER [facility] RBC 2.84(L) 4.20 - 5.40 M/uL 01/02/2024 8:33 AM HARNESS REPAIRER [facility] HEMOGLOBIN 8.0(L) 12.0 - 16.0 g/dL 01/02/2024 8:33 AM [facility] HEMATOCRIT 25.9(L) 36.0 - 46.0 % 01/02/2024 8:33 AM [facility] MCV 91.2 84.0 - 103.0 fL 01/02/2024 8:33 AM [facility] MCH 28.2 27.0 - 34.0 pg 01/02/2024 8:33 AM [facility] MCHC 30.9 30.0 - 35.0 g/dL 01/02/2024 8:33 AM [facility] RDW 16.6(H) 11.0 - 14.5 % 01/02/2024 8:33 AM [facility] RDW-STDEV 55.4(H) 37.0 - 54.0 fL 01/02/2024 8:33 AM [facility] [email or web address] [facility] PLATELETS 165 140 - 440 K/uL 01/02/2024 8:33 AM [facility] MPV 9.8 8.9 - 12.8 fL 01/02/2024 8:33 AM [facility] NEUTROPHILS 69 42 - 75 % 01/02/2024 8:33 AM [facility] LYMPHOCYTES 12(L) 24 - 44 % 01/02/2024 8:33 AM [facility] MONOCYTES 10 2 - 10 % 01/02/2024 8:33 AM [facility] EOSINOPHILS 7 0 - 7 % 01/02/2024 8:33 AM [facility] [email or web address] [facility] BASOPHILS 1 0 - 1 % 01/02/2024 8:33 AM [facility] IMMATURE GRANULOCYTES 1 0 - 2 % 01/02/2024 8:33 AM [facility] NEUTROPHIL ABSOLUTE 5.48 2.00 - 8.00 K/uL 01/02/2024 8:33 AM [facility] LYMPHOCYTE ABSOLUTE 0.94(L) 1.20 - 4.00 K/uL 01/02/2024 8:33 AM [facility] MONOCYTE ABSOLUTE 0.80(H) 0.10 - 0.60 K/uL 01/02/2024 8:33 AM [facility] EOSINOPHIL ABSOLUTE 0.52 0.00 - 0.70 K/uL 01/02/2024 8:33 AM [facility] BASOPHILS ABSOLUTE 0.09 0.00 - 0.20 K/uL 01/02/2024 8:33 AM [facility] IMMATURE GRANULOCYTES ABSOLUTE 0.11(H) 0.00 - 0.10 K/uL 01/02/2024 8:33 AM [facility] Blood Collection / Unknown 01/02/2024 3:15 AM HARNESS REPAIRER 01/02/2024 8:27 AM HARNESS REPAIRER us Christi Gonzalez MD HEMATOLOGY ORDERABLES Final Res ult [facility] CLIA # [id number] [address] [place] [address] * (ABNORMAL) COMPREHENSIVE METABOLIC PANEL (01/02/2024 3:15 AM HARNESS REPAIRER) SODIUM 137 136 - 145 mmol/L 01/02/2024 9:51 AM [facility] POTASSIUM 3.2(L) 3.5 - 5.1 mmol/L 01/02/2024 9:51 AM [facility] CHLORIDE 97(L) 98 - 107 mmol/L 01/02/2024 9:51 AM [facility] CO2 25 22 - 29 mmol/L 01/02/2024 9:51 AM [facility] CALCIUM 10.8(H) 8.8 - 10.2 mg/dL 01/02/2024 9:51 AM [facility] BUN 52(H) 8 - 23 mg/dL 01/02/2024 9:51 AM [facility] CREATININE 3.33(H) 0.51 - 0.95 mg/dL 01/02/2024 9:51 AM [facility] GLUCOSE 193(H) 74 - 99 mg/dL 01/02/2024 9:51 AM [facility] TOTAL PROTEIN 6.6 6.4 - 8.3 g/dL 01/02/2024 9:51 AM [facility] ALBUMIN 3.8 3.5 - 5.2 g/dL 01/02/2024 9:51 AM [facility] BILIRUBIN TOTAL 0.2 0.2 - 1.0 mg/dL 01/02/2024 9:51 AM [facility] ALKALINE PHOSPHATASE 91 35 - 104 U/L 01/02/2024 9:51 AM [facility] AST 23 10 - 35 U/L 01/02/2024 9:51 AM [facility] ALT 22 <=35 U/L 01/02/2024 9:51 AM [facility] GFR 15(L) >=60 mL/min/1. 73 sq meter 01/02/2024 9:51 AM [facility] Comment:eGFR calculated with 2020 CKD-EPI equation. Vegetarian diet, extremely high or low muscle mass, and may affect results. Cystatin C with Glomerular Filtration Rate is a suitable alternative for these patients. ANION GAP 15 9 - 20 mmol/L 01/02/2024 9:51 AM [facility] Blood Collection / Unknown 01/02/2024 3:15 AM HARNESS REPAIRER 01/02/2024 8:27 AM HARNESS REPAIRER us Christi Gonzalez MD CHEMISTRY ORDERABLES Final Resu lt [facility] CLIA # [id number] [address] [address] [place] [address] documented in this encounter Visit Diagnoses Not on filedocumented in this encounter Care Teams Wagon Driller Relationship Specialty Start Date End Date Savannah Martinez MD [address] [place] [address] PCP - General Family Practice 08/21/23 documented as of this encounter
--- OUTSIDE RECORDS SUMMARY | 2025-07-24 07:23 | XMS_ITS | Encounter Summary ---
Author Organization [facility] Address [address] [place] [address] Care Team Providers Care Document Advisor Name Role Phone Savannah Martinez MD Primary Care Provider [phone] Encounter Details Date Type Department Care Team (Late st Contact Info) Description 01/06/2024 Lab Requisition [facility] Laboratory Services [address] [place] [id number] [facility], External Provider [address] [place] [address] Social History Tobacco Use Types Packs/Day Years [...] on file Legal Sex Female 2:41 PM CEPHALOMETRIC TECHNICIAN Gender Identity Not on file Sexual Orientation Not on file documented as of this encounter Plan of Treatment Not on file documented as of this encounter Procedures Procedure Name Priority Date/Time Associated Diagnosis Comments CBC WITH DIFFERENTIAL Routine 01/06/2024 3:00 AM CEPHALOMETRIC TECHNICIAN COMPREHENSIVE METABOLIC PANEL Routine 01/06/2024 3:00 AM CEPHALOMETRIC TECHNICIAN documented in this encounter Results * (ABNORMAL) CBC WITH DIFFERENTIAL (01/06/2024 3:00 AM CEPHALOMETRIC TECHNICIAN) [facility] WBC 6.3 4.8 - 10.8 K/uL 01/06/2024 6:41 AM [facility] RBC 2.92(L) 4.20 - 5.40 M/uL 01/06/2024 6:41 AM [facility] HEMOGLOBIN 8.4(L) 12.0 - 16.0 g/dL 01/06/2024 6:41 AM [facility] HEMATOCRIT 26.9(L) 36.0 - 46.0 % 01/06/2024 6:41 AM [facility] MCV 92.1 84.0 - 103.0 fL 01/06/2024 6:41 AM [facility] MCH 28.8 27.0 - 34.0 pg 01/06/2024 6:41 AM [facility] MCHC 31.2 30.0 - 35.0 g/dL 01/06/2024 6:41 AM [facility] RDW 16.3(H) 11.0 - 14.5 % 01/06/2024 6:41 AM [facility] RDW-STDEV 55.1(H) 37.0 - 54.0 fL 01/06/2024 6:41 AM [facility] PLATELETS 218 140 - 440 K/uL 01/06/2024 6:41 AM [facility] MPV 10.4 8.9 - 12.8 fL 01/06/2024 6:41 AM [facility] NEUTROPHILS 65 42 - 75 % 01/06/2024 6:41 AM [facility] LYMPHOCYTES 14(L) 24 - 44 % 01/06/2024 6:41 AM [facility] MONOCYTES 12(H) 2 - 10 % 01/06/2024 6:41 AM [facility] EOSINOPHILS 7 0 - 7 % 01/06/2024 6:41 AM [facility] BASOPHILS 2(H) 0 - 1 % 01/06/2024 6:41 AM [facility] IMMATURE GRANULOCYTES 1 0 - 2 % 01/06/2024 6:41 AM [facility] NEUTROPHIL ABSOLUTE 4.08 2.00 - 8.00 K/uL 01/06/2024 6:41 AM [facility] LYMPHOCYTE ABSOLUTE 0.91(L) 1.20 - 4.00 K/uL 01/06/2024 6:41 AM [facility] MONOCYTE ABSOLUTE 0.75(H) 0.10 - 0.60 K/uL 01/06/2024 6:41 AM [facility] EOSINOPHIL ABSOLUTE 0.42 0.00 - 0.70 K/uL 01/06/2024 6:41 AM [facility] BASOPHILS ABSOLUTE 0.10 0.00 - 0.20 K/uL 01/06/2024 6:41 AM [facility] IMMATURE GRANULOCYTES ABSOLUTE 0.06 0.00 - 0.10 K/uL 01/06/2024 6:41 AM [facility] Blood Collection / Unknown 01/06/2024 3:00 AM CEPHALOMETRIC TECHNICIAN 01/06/2024 6:23 AM [facility] us External Provider [facility] HEMATOLOGY ORDERABLES Aida l Result [facility] CLIA # [id number] [address] [address] [place] [address] * (ABNORMAL) COMPREHENSIVE METABOLIC PANEL (01/06/2024 3:00 AM CEPHALOMETRIC TECHNICIAN) [facility] SODIUM 136 136 - 145 mmol/L 01/06/2024 7:27 AM [facility] POTASSIUM 3.9 3.5 - 5.1 mmol/L 01/06/2024 7:27 AM [facility] CHLORIDE 96(L) 98 - 107 mmol/L 01/06/2024 7:27 AM [facility] CO2 29 22 - 29 mmol/L 01/06/2024 7:27 AM [facility] CALCIUM 10.1 8.8 - 10.2 mg/dL 01/06/2024 7:27 AM [facility] BUN 45(H) 8 - 23 mg/dL 01/06/2024 7:27 AM [facility] CREATININE 2.65(H) 0.51 - 0.95 mg/dL 01/06/2024 7:27 AM [facility] GLUCOSE 153(H) 74 - 99 mg/dL 01/06/2024 7:27 AM [facility] TOTAL PROTEIN 6.7 6.4 - 8.3 g/dL 01/06/2024 7:27 AM [facility] ALBUMIN 3.7 3.5 - 5.2 g/dL 01/06/2024 7:27 AM [facility] BILIRUBIN TOTAL 0.2 0.2 - 1.0 mg/dL 01/06/2024 7:27 AM [facility] ALKALINE PHOSPHATASE 93 35 - 104 U/L 01/06/2024 7:27 AM [facility] AST 27 10 - 35 U/L 01/06/2024 7:27 AM [facility] ALT 17 <=35 U/L 01/06/2024 7:27 AM [facility] GFR 19(L) >=60 mL/min/1. 73 sq meter 01/06/2024 7:27 AM [facility] Comment:eGFR calculated with 2020 CKD-EPI equation. Vegetarian diet, extremely high or low muscle mass, and may affect results. Cystatin C with Glomerular Filtration Rate is a suitable alternative for these patients. ANION GAP 11 9 - 20 mmol/L 01/06/2024 7:27 AM [facility] Blood Collection / Unknown 01/06/2024 3:00 AM CEPHALOMETRIC TECHNICIAN 01/06/2024 6:23 AM CEPHALOMETRIC TECHNICIAN us External Provider [facility] CHEMISTRY ORDERABLES Final Result [facility] CLIA # [id number] [facility] [address] [place], [place] [address] documented in this encounter Visit Diagnoses Not on filedocumented in this encounter Care Teams Document Advisor Relationship Specialty Start Date End Date Savannah Martinez MD [address] [place] [address] PCP - General Family Practice 08/21/23 documented as of this encounter
--- OUTSIDE RECORDS SUMMARY | 2025-07-24 07:23 | XMS_ITS | Encounter Summary ---
Author Organization [facility] Address [address] [place] [address] Care Team Providers Care Machine Try Out Setter Name Role Phone Savannah Martinez MD Primary Care Provider [phone] Encounter Details Date Type Department Care Team (Late st Contact Info) Description 01/04/2024 Lab Requisition [facility] Services [address] [place] [address] Christi Gonzalez MD [address] [place] [address] Social History Tobacco Use Types [...] on file Legal Sex Female 2:41 PM BURLAP ROLL COVERER Gender Identity Not on file Sexual Orientation Not on file documented as of this encounter Plan of Treatment Not on file documented as of this encounter Procedures Procedure Name Priority Date/Time Associated Diagnosis Comments CBC WITH DIFFERENTIAL Routine 01/04/2024 4:00 AM BURLAP ROLL COVERER VANCOMYCIN LEVEL RANDOM Routine 01/04/2024 4:00 AM BURLAP ROLL COVERER COMPREHENSIVE METABOLIC PANEL Routine 01/04/2024 4:00 AM BURLAP ROLL COVERER documented in this encounter Results * VANCOMYCIN LEVEL RANDOM (01/04/2024 4:00 AM BURLAP ROLL COVERER) [facility] VANCOMYCIN, RANDOM 13.3 5.0 - 50.0 ug/mL 01/04/2024 9:44 AM [facility] Blood Collection / Unknown 01/04/2024 4:00 AM BURLAP ROLL COVERER 01/04/2024 6:39 AM BURLAP ROLL COVERER Narrative [facility] - 01/04/2024 9:44 AM BURLAP ROLL COVERER Vancomycin Therapeutic Ranges: Vancomycin Trough: 10 - 20 mcg/mL Vancomycin Peak: 25 - 50 mcg/mL us Christi Gonzalez MD CHEMISTRY ORDERABLES Final Resu lt [facility] CLIA # [id number] [address] [place] [id number] * (ABNORMAL) CBC WITH DIFFERENTIAL (01/04/2024 4:00 AM BURLAP ROLL COVERER) [facility] WBC 8.1 4.8 - 10.8 K/uL 01/04/2024 6:46 AM [facility] RBC 2.77(L) 4.20 - 5.40 M/uL 01/04/2024 6:46 AM [facility] HEMOGLOBIN 7.9(L) 12.0 - 16.0 g/dL 01/04/2024 6:46 AM [facility] HEMATOCRIT 25.6(L) 36.0 - 46.0 % 01/04/2024 6:46 AM [facility] MCV 92.4 84.0 - 103.0 fL 01/04/2024 6:46 AM [facility] [employer] [facility] MCH 28.5 27.0 - 34.0 pg 01/04/2024 6:46 AM [facility] MCHC 30.9 30.0 - 35.0 g/dL 01/04/2024 6:46 AM [facility] RDW 16.2(H) 11.0 - 14.5 % 01/04/2024 6:46 AM [facility] RDW-STDEV 54.3(H) 37.0 - 54.0 fL 01/04/2024 6:46 AM [facility] PLATELETS 173 140 - 440 K/uL 01/04/2024 6:46 AM [facility] MPV 10.3 8.9 - 12.8 fL 01/04/2024 6:46 AM [facility] NEUTROPHILS 77(H) 42 - 75 % 01/04/2024 6:46 AM [facility] LYMPHOCYTES 9(L) 24 - 44 % 01/04/2024 6:46 AM [facility] MONOCYTES 8 2 - 10 % 01/04/2024 6:46 AM [facility] [employer] [facility] EOSINOPHILS 4 0 - 7 % 01/04/2024 6:46 AM [facility] BASOPHILS 1 0 - 1 % 01/04/2024 6:46 AM [facility] IMMATURE GRANULOCYTES 1 0 - 2 % 01/04/2024 6:46 AM [facility] NEUTROPHIL ABSOLUTE 6.22 2.00 - 8.00 K/uL 01/04/2024 6:46 AM [facility] LYMPHOCYTE ABSOLUTE 0.72(L) 1.20 - 4.00 K/uL 01/04/2024 6:46 AM [facility] MONOCYTE ABSOLUTE 0.68(H) 0.10 - 0.60 K/uL 01/04/2024 6:46 AM [facility] EOSINOPHIL ABSOLUTE 0.34 0.00 - 0.70 K/uL 01/04/2024 6:46 AM [facility] BASOPHILS ABSOLUTE 0.06 0.00 - 0.20 K/uL 01/04/2024 6:46 AM [facility] IMMATURE GRANULOCYTES ABSOLUTE 0.09 0.00 - 0.10 K/uL 01/04/2024 6:46 AM [facility] Blood Collection / Unknown 01/04/2024 4:00 AM BURLAP ROLL COVERER 01/04/2024 6:39 AM BURLAP ROLL COVERER us Christi Gonzalez MD HEMATOLOGY ORDERABLES Final Res ult [facility] CLIA # [id number] [address] [place] [id number] * (ABNORMAL) COMPREHENSIVE METABOLIC PANEL (01/04/2024 4:00 AM BURLAP ROLL COVERER) SODIUM 135(L) 136 - 145 mmol/L 01/04/2024 9:44 AM [facility] POTASSIUM 3.8 3.5 - 5.1 mmol/L 01/04/2024 9:44 AM [facility] CHLORIDE 96(L) 98 - 107 mmol/L 01/04/2024 9:44 AM [facility] CO2 28 22 - 29 mmol/L 01/04/2024 9:44 AM [facility] CALCIUM 9.9 8.8 - 10.2 mg/dL 01/04/2024 9:44 AM [facility] BUN 49(H) 8 - 23 mg/dL 01/04/2024 9:44 AM [facility] CREATININE 2.82(H) 0.51 - 0.95 mg/dL 01/04/2024 9:44 AM [facility] GLUCOSE 190(H) 74 - 99 mg/dL 01/04/2024 9:44 AM [facility] TOTAL PROTEIN 6.5 6.4 - 8.3 g/dL 01/04/2024 9:44 AM [facility] ALBUMIN 3.7 3.5 - 5.2 g/dL 01/04/2024 9:44 AM [facility] BILIRUBIN TOTAL 0.3 0.2 - 1.0 mg/dL 01/04/2024 9:44 AM [facility] ALKALINE PHOSPHATASE 83 35 - 104 U/L 01/04/2024 9:44 AM [facility] AST 24 10 - 35 U/L 01/04/2024 9:44 AM [facility] ALT 17 <=35 U/L 01/04/2024 9:44 AM [facility] GFR 18(L) >=60 mL/min/1. 73 sq meter 01/04/2024 9:44 AM [facility] Comment:eGFR calculated with 2020 CKD-EPI equation. Vegetarian diet, extremely high or low muscle mass, and may affect results. Cystatin C with Glomerular Filtration Rate is a suitable alternative for these patients. ANION GAP 11 9 - 20 mmol/L 01/04/2024 9:44 AM [facility] Blood Collection / Unknown 01/04/2024 4:00 AM BURLAP ROLL COVERER 01/04/2024 6:39 AM BURLAP ROLL COVERER us Christi Gonzalez MD CHEMISTRY ORDERABLES Final Resu lt [facility] CLIA # [id number] [facility] [id number] documented in this encounter Visit Diagnoses Not on filedocumented in this encounter Care Teams Machine Try Out Setter Relationship Specialty Start Date End Date Savannah Martinez MD [address] [place], [place] [address] PCP - General Family Practice 08/21/23 documented as of this encounter
--- OUTSIDE RECORDS SUMMARY | 2025-07-24 07:23 | XMS_ITS | Patient Health Record ---
Author Organization [facility] Address [address] [place] [address] Care Team Providers Care Rehabilitation Services Coordinator Name Role Phone Coleman Padgett Primary Care Provider [phone] Migration, Provider Unavailable Unavailable Allergies Allergen (clinical drug ingredient) Drug/Non Drug [...] Active Latex Latex gifford skin Allergy Active Results Component Value Reference Range Flag Notes UA Dip / Urinalysis, Routine , Manual - [id number] Reviewed date:03/27/2025 03:38:56 PM Interpretation: Performing Lab: Notes/Report: Color yellow Clarity clear Glucose - Bilirubin + small Ketones - Specific Jenison 1.020 Blood Hemolyzed trace pH 5.0 Protein ++++ 2000 Urobilinogen,Semi-Qn 0.2 Nitrite, Urine - Leukocytes Trace Hemoglobin A1c -- [id number] Reviewed date:06/21/2025 11:27:31 AM Interpretation:5.9 Performing Lab: Notes/Report: 5.9 HGBA1C 5.9 Comprehensive Metabolic Pane l (CMP) [id number] Reviewed date:07/03/2025 10:48:39 AM Interpretation: Performing Lab: Notes/Report: Sodium 140 Potassium 4.5 Chloride 107 CO2 21 Glucose Serum 136 BUN 33 Creat 1.8 Anion Gap 16.5 Total Protein 7.2 Albumin 3.6 Calcium 9.2 Alk Phos 125 Globulin 3.6 AST/SGOT 17 Bili Total 0.2 ALT/SGPT 10 GFR 28.1 Microalbumin (U) Random 8204 3 Reviewed date:03/21/2025 10:24:59 AM Interpretation: Performing Lab: Notes/Report: Diagnosis Description: Proteinuria, unspecified Ur Microalbumin >380.0 .0-30.0 MG/L HI Ur Creat 95.8 29.0-226.0 Mal/Crea/Ratio >396.7 .0-30.0 mg Alb/g Cr HI Mammogram Screen Brice Alden w/ [id number] Reviewed date:11/02/2024 09:35:37 AM Interpretation: Performing Lab: Notes/Report: Reason For Referral Reason diabetic feet Diagnosis 1 Diabetic feet (E11.8 ) Referral Organization [facility] Referring Provider First Name Caden cortes Referring Provider Last Name Dayron Referring Provider Speciality Internal edicine Referred Provider KAMLESH BRADFORD Referred Provider Specialty Podiatry - S urgical Chiropody General Notes Nubia Bustamante 04:10:57 PM >faxed Clif Brooks Heidi 08/14/2024 10:44:48 AM >PER WILLOW PT WAS SEEN IN 08/[address] BRADFORD. SHE IS SENDING THE NOTESNapoleon Arieona 08/15/2024 12:53:45 PM >PROGRESS NOTES IN REFERRAL FILE Referral Priority Routine Referral Appointment Date 08/02/2024 Reason Mole on back, Itchin g Pt is requesting [facility] Dermatology to have mole checked out Diagnosis 1 Pruritus, unspecifie d (L29.9) Referral Organization [facility] Referring Provider First Name Caden cortes Referring Provider Last Name Dayron Referring Provider Speciality Internal edicine Referred Provider [facility] Referred Provider Specialty Dermatology General Notes Nubia Bustamante 08:18:10 AM >faxed [facility] Clif Gibbons Heidi 09/25/2024 10:48:30 AM >PER JASON MORENOVD NOT SCHEDULED, Awilda Menezes 10/10/2024 10:08:07 AM >PT IS SCHEDULED 11/01 @ 10Clif Heidi 11/02/2024 11:32:30 AM >PROGRESS NOTES IN REFERRAL FILE Referral Priority Routine Referral Appointment Date 11/01/2024 Medications Medication SIG (Take, Route, Frequency, Duration) Notes Start Date End Date Status Stimulant Laxative 8.6-50 MG Tablet 1 tablet as needed Orally Twice a day; Duration: 30 days Not-Taking Desloratadine 5 mg Tablet TAKE 1 TABLET BY MOUTH EVERY DAY; Duration: 30 Not-Taking Pregabalin 100 MG Capsule 1 capsule Orally BID; Duration: 30 days 5 01/20/20 26 Active Zonisamide 25 mg Capsule take 1 capsule BY MOUTH EVERY TWELVE HOURS; Duration: 30 Not-Taking Montelukast Sodium 10 mg Tablet TAKE 1 TABLET BY MOUTH EVERY DAY; Duration: 30 Not-Taking Losartan Potassium 100 mg Tablet TAKE 1 TABLET BY MOUTH EVERY DAY; Duration: 30 Not-Taking Metoclopramide HCl 5 MG Tablet 1 [...] BY MOUTH AT BEDTIME; Duration: 30 Not-Taking diazePAM 10 MG Tablet 1 or 2 Orally Ut dictum; Duration: 1 days 4 Not-Taking Lasix *[facility] for eRX* Not-Taking dyclonine HCl (bulk) *Reorder fr [facility] for eRx and Interaction Alerts* Not-Taking Ondansetron 4 MG Tablet Disintegrating 1 [...] mouth daily #30 (Thirty) tablet(s) 1 Not-Taking Aspirin 81 MG Tablet Chewable 1 tab(s) po qd Oral; Duration: 30 Aspirin (ASA) 81mg Chewable Tablet 1 tab(s) po qd #30 (Thirty) tablet(s) 1 Not-Taking hydrALAZINE HCl 25 MG Tablet 1 tablet with food Orally Three times a day; Duration: 30 days Active Hydroxychloroquine *Reorder from [employer] for eRx and Interaction Alerts* Not-Taking Procardia XL 60 MG Tablet Extended Release 24 Hour Take 1 tablet(s) by mouth daily Oral; Duration: 30 Procardia XL (Nifedipine) 60mg Tablets, Extended Release Take 1 tablet(s) by mouth daily #30 (Thirty) tablet(s) 1 Not-Taking Carvedilol *Pick strength-form from [employer] for eRX* Not-Taking Simvastatin 40 MG Tablet Take 1 tablet(s) by mouth at bedtime Oral; Duration: 30 Simvastatin 40mg Tablet Take 1 tablet(s) by mouth at bedtime #30 (Thirty) tablet(s) 0 Not-Taking Pantoprazole Sodium 40 MG Tablet Delayed Release 1 tablet Orally Once a day; Duration: 30 days Active Eliquis *Pick strength-form from [employer] for eRX* Not-Taking FLUoxetine HCl 20 MG Capsule 2 AM, 1PM Oral Ut dictum; Duration: 60 days Fluoxetine 20mg Capsules One cap po TID #90 (Ninety) capsule(s) 1 Active Metoprolol Succinate *Pick strength-form from [facility] for eRX* Not-Taking Magnesium Oxide 400 MG Tablet 1 tablet as needed Orally Once a day; Duration: 30 days Active PROzac *Pick strength-form from [employer] for eRX* Not-Taking Vitamin D3 50 MCG (1999 UT) Capsule 1 capsule Orally Once a day; Duration: 30 days Active isosorbide (bulk) *Reorder from [facility] for eRx and Interaction Alerts* Not-Taking Vitamin B12 500 MCG Tablet 1 tablet Orally Once a day; Duration: 30 days Active acesulfame potassium (bulk) *Reorder from [facility] for eRx and Interaction Alerts* Not-Taking Torsemide 100 MG Tablet TAKE 1 TABLET BY MOUTH EVERY DAY; Duration: 30 Active Calcium Carbonate-Vitamin D3 *Reorder from [facility] for eRx and Interaction Alerts* Not-Taking metOLazone 2.5 MG Tablet 1 tablet Orally Once a week; Duration: 90 days 07/11/20 26 Active HumaLOG KwikPen 100 UNIT/ML Solution Pen-injector as directed Subcutaneous daily; Duration: 30 days Active Leflunomide 10 MG Tablet 1 tablet Orally Once a day; Duration: 30 days 08/03/20 25 Active Stool Softener & Laxative 8.6-50 MG [...] IN 15 MINUTES. DIRECTED; Duration: 30 Active Potassium Chloride ER 10 mEq Tablet Extended Release TAKE 1 TABLET BY MOUTH TWICE DAILY with food; Duration: 30 Active Easy Touch Pen [place] 29G X 12MM Miscellaneous as directed; Duration: 30 days 4 Active Needle (Disp) 29G X 1/2 Miscellaneous as directed; Duration: 30 days 4 Active Tresiba FlexTouch 100 UNIT/ML Solution Pen-injector INJECT 70 UNITS SUBCUTANEOUSLY DAILY DIRECTED FOR 30 DAYS; Duration: 30 Active OneTouch Delica Plus [id number] - Miscellaneous USE THREE TIMES DAILY DIRECTED; Duration: 30 Active OneTouch Ultra - Strip TEST THREE TIMES DAILY DIRECTED; Duration: 30 Active Immunizations Vaccine Route Administration Date Status Comme nts Flu vaccine no Preserv 3 and > IM Intramuscular 09/10/2010 Administered Fluzone, Trivalent, Syringe, 0.5mL PF Unknown 11/01/2024 Refused Social History Tobacco Use: Social History Observation Description Date Details (start date - stop date) Former Smoker NA - NA Social History Depression Screening Social Info Question Answer Notes depression screening findings Findings Negative (0 -4) 02/19/25 PHQ-9 Little interest or p jennifer in doing things Not at all Feeling down, depressed, or hopeless Not at all Trouble falling or staying asleep, or sleeping t oo much Not at all Feeling tired or having little energy Not at all Poor appetite or overeating Not at all Feeling bad about yourself, or that you are a failure, or have let yourself or your family down Not at all Trouble concentrating on thi ngs, such as reading the newspaper or watching television Not at all Moving or speaking so slowly that other people could have noticed. Or the opposite ? being so fidgety or restless that you have been moving around a lot more than usual Not at all Thoughts that you would be b esperanza off , or of hurting yourself in some way Not at all Total Score 0 Drugs/Alcohol: Social Info Question Answer Notes Drugs Have you used drugs other than those for medical reasons in the past 12 months? 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 No *Social Determinants of Health Has lack of transportation kept you from medical appointments, meetings, work or from getting things needed for daily living? Yes it has kept me from medical appointments or from getting my medications medicaid transportation has failed to transport no show no call Recently, have you worried t hat your food would run out before you got money to buy more? No Do you feel physically and e motionally safe where you currently live? Yes Are you worried about losing your housing? No Availability of resources to meet daily needs? Y es What is your current housing situation? I have h kristin How many members of your albania barrientos family live with you? (Including yourself) 2 What is the highest level of school that you have completed? More than high school How many jobs do you work? 0 How often do you see or talk to people that you care about and feel close to? More than 5 times How stressed are you? Low Do you have medical insurance through your emplo carlos alberto? No Have you served in the [employer] & other things you bake? (Selina bryan) No Family/ social/ cultural characteristics Are you curre ntly employed? No Social Support System Living with children What is your education level? College Drug/Alcohol: Social Info Question Answer Notes AUDIT-C (Standard) Did you have a drink containing alcohol in the past year? No Points 0 Interpretation Negative Tobacco Use: Social Info Question Answer Notes Tobacco Control (Standard) Tobacco use: Former smoker How long has it been since you last smoked? Greater than 10 years Additional Details Category Social Info Options Details Migrated Social History Migrated Social History Alcoholic beverages? - No, Applying for disability? - No, Are you or is there a chance you could be - No, Currently on disability? - Yes, Drug or substance abuse? - No, Education - Grade School, exposure to toxins/poisonous substances at work - No, I am interested in quitting. - No, If yes, frequency of alcoholic beverages - 1 drink per day, Involved in any legal proceedings or lawsuits? - No, Marital Status - , Nonprescription drug use? - No, Participation in detoxification or rehabilitation - No, Smoked in the past? - No, Smoking - No, Smoking status (MU) - <BLANK>, Working currently? - No Section Notes: Depression - 11/01/24 Tobacco - 11/01/24 CIME Dep/tob - 02/19/25 Depression - 11/01/24 Tobacco - 11/01/24 CIME Dep/tob - 02/19/25 Depression - 11/01/24 Tobacco - 11/01/24 CIME Dep/tob - 02/19/25 Depression - 11/01/24 Tobacco - 11/01/24 Depression - 11/01/24 Tobacco - 11/01/24 Depression - 11/01/24 Tobacco - 11/01/24 CIME Dep/tob - 02/19/25 Depression - 11/01/24 Tobacco - 11/01/24 Depression - 11/01/24 Tobacco - 11/01/24 Depression - 11/01/24 Tobacco - 11/01/24 CIME Dep/tob - 02/19/25 Depression - 11/01/24 Tobacco - 11/01/24 CIME Dep/tob - 02/19/25 Depression - 11/01/24 Tobacco - 11/01/24 CIME Dep/tob - 02/19/25 Depression - 11/01/24 Tobacco - 11/01/24 Depression - 11/01/24 Tobacco - 11/01/24 Depression - 11/01/24 Tobacco - 11/01/24 CIME Dep/tob - 02/19/25 Depression - 11/01/24 Tobacco - 11/01/24 CIME Dep/tob - 02/19/25 Depression - 11/01/24 Tobacco - 11/01/24 CIME Dep/tob - 02/19/25 Depression - 11/01/24 Tobacco - 11/01/24 CIME Dep/tob - 02/19/25 Problems Problem Type SNOMED Code ICD Code Onset Dates Problem Status W/U Status Risk Notes Problem Hyperglycemia due to type 2 diabetes mellitus (770399720394633) Type 2 diabetes mellitus with hyperglycemia (E11.65) Active confirmed Problem Gastroparesis (002601331) Gastroparesis (K31.84) Active confirmed Problem Essential hypertension (32138308) Essential hypertension (I10) Active confirmed Problem Edema (063155868) Fluid retentio n (R60.9) Active confirmed Problem Abdominal bloating (886043310) Abdominal bloating (R14.0) Active confirmed Problem Overflow diarrhea (21836440) Overflow diarrhea (R19.7) Active confirmed Problem Delayed gastric emptying (253813135) Delayed gastric emptying (K30) Active confirmed Problem Chronic renal failure syndrome (02223432) Chronic kidney disease, unspecified CKD stage (N18.9) Active confirmed Problem Dermatitis (689268900) Periorbital dermatitis (L30.9) Active confirmed Problem Inflammatory and toxic neuropathy (545252005) Peripheral polyneuropathy (G62.9) Active confirmed Problem Morbid obesity (257556119) Morbid obesity (E66.01) Active confirmed Problem Slow transit constipation (17812433) Constipation, slow transit (K59.01) Active confirmed Problem Disorder due to type 2 diabetes mellitus (343790527) Diabetic feet (E11.8) Active confirmed Problem Nausea and vomiting (51199595) Nausea and vomiting, unspecified vomiting type (R11.2) Active confirmed Problem Type I diabetes mellitus uncontrolled (913811231) Type 2 diabetes requiring insulin (250.03) 011 Active confirmed [facility] 911- Problem Hip pain (62406844) Hip pain (719.45) 011 Active confirmed [facility]85 911- Problem Gastroesophageal reflux disease (265733723) GERD (530.81) 007 Active confirmed [facility]985 911- Problem Gastroparesis (282585550) Gastroparesis (536.3) 011 Problem resolved confirmed [facility]-985 911- Problem Memory loss (66570086) Memory loss (780.93) 008 Problem resolved confirmed [facility]-985 911- Problem Wheezing (28160435) Wheezing (786.07) 007 Problem resolved confirmed [facility]-985 911- Problem Cough (42621771) Cough (786.2) 009 Problem resolved confirmed [facility]-985 911- Problem Hypoxemia (183803264) Hypoxemia (799.02) 011 Problem resolved confirmed [facility]-985 911- Problem Generalized anxiety disorder (52455840) Anxiety, generalized (300.02) 007 Problem resolved confirmed [facility]-985 911- Problem Fibromyalgia (026071391) Fibromyalgia (729.1) 010 Problem resolved confirmed [facility]-985 911- Problem Rash (943577515) Rash (782.1) 007 Problem resolved confirmed [facility]-985 911- Problem Low back pain (255469471) Low back pain (724.2) 009 Problem resolved confirmed [facility]-985 911- Problem Neck pain (32647129) Neck pain (723.1) 011 Problem resolved confirmed [facility]-985 911- Problem Fatigue (28055124) Fatigue (780.79) 01/29 011 Problem resolved confirmed [facility]-985 911- Problem Vitamin D deficiency (29807692) Vitamin D deficiency (268.9) 010 Problem resolved confirmed [facility]-985 911- Problem Type II diabetes mellitus uncontrolled (852304524) Diabetes mellitus without mention of complications, type II or unspecified type, uncontrolled (250.02) 007 Problem resolved confirmed [facility]-985 911- Problem Moderate recurrent major depression (68053166) Major depression, recurrent episode, moderate (296.32) Problem resolved confirmed [facility]-985 911- Problem Type II diabetes mellitus uncontrolled (845328212) NIDDM, uncontrolled (250.02) 010 Problem resolved confirmed [facility]-985 911- Problem Breast mass (18273539) Breast mass (611.72) Problem resolved confirmed [facility]-985 911- Problem Pain in limb (86630808) Arm Pain (729.5) 008 Problem resolved confirmed [facility]-985 911- Problem Cramp in limb (262230378) Cramps in limbs (729.82) 010 Problem resolved confirmed [facility]-985 911- Problem Coagulation disorder (58049289) Factor 5 Leiden deficiency (286.9) 010 Problem resolved confirmed [facility]-985 911- Problem Generalized abdominal pain (222016024) Generalized abdominal pain (789.07) Problem resolved confirmed [facility]-985 911- Problem Generalized osteoarthritis (268505374) Generalized osteoarthritis, multiple sites (715.09) 011 Problem resolved confirmed [facility]-985 911- Problem Lumbosacral spondylosis without myelopathy (57636848) Lumbar osteoarthritis (721.3) 011 Problem resolved confirmed [facility]-985 911- Problem Hypersomnia with sleep apnea (81054968) Excessive tiredness due to sleep apnea (780.53) 010 Problem resolved confirmed [facility]-985 911- Problem Hand pain (81155145) Hand pain (729.5) 007 Problem resolved confirmed [facility]-985 911- Problem Insomnia (889533041) Insomnia (307.41) 008 Problem resolved confirmed [facility]-985 911- Problem Rib pain (792110232) Rib pain (786.50) 010 Problem resolved confirmed [facility]-985 911- Problem Needs influenza immunization (087285358) Vaccination against other viral diseases, Influenza (V04.81) 010 Problem resolved confirmed [facility]-985 911- Problem Itching (241190043) Itching (698.9) 02/02 010 Problem resolved confirmed [facility]-985 911- Problem Burning feet syndrome (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) 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.2) 007 Problem resolved confirmed [facility]-985 911- Problem Type II diabetes mellitus without complication (545164261) Type II diabetes requiring insulin (250.00) 009 Problem resolved confirmed [facility]-985 911- Problem Type I diabetes mellitus without complication (953575905) Uncontrolled type II diabetes requiring insulin (250.01) 010 Problem resolved confirmed [facility]-985 911- Problem Mixed anxiety and depressive disorder (097173979) Depression with anxiety (300.4) 010 Problem resolved confirmed [facility]-985 911- Problem Hypopharynx infection (478.29) 010 Problem resolved confirmed [facility]-985 911- Problem Muscle pain (67246069) Muscle aches (729.1) 007 Problem resolved confirmed [facility]-985 911- Problem Nausea and vomiting (92633329) Nausea and vomiting (787.01) 010 Problem resolved confirmed [facility]-985 911- Problem Coronary arteriosclerosis (disorder) (81844669) Coronary artery disease, of [place] coronary artery (414.01) 010 Problem resolved confirmed [facility]-985 911- Problem Essential hypertension (53684663) Essential hypertension (401.1) 011 Problem resolved confirmed [facility]-985 911- Problem Type II diabetes mellitus without complication (353669968) NIDDM (250.00) 008 Problem resolved confirmed [facility]-985 911- Problem Toothache (finding) (86835850) Tooth pain (525.9) 008 Problem resolved confirmed [facility]-985 911- Problem Diabetes mellitus type 2 (disorder) (48632624) Type 2 diabetes (250.00) 007 Problem resolved confirmed [facility]-985 911- Vital Signs Heart Rate 81 /min 07/23/2025 Temperature 98.8 degrees Fahrenheit 07/23/2025 Height-cm 162.56 cm 07/23/2025 Oximetry 93 % 07/23/2025 Blood pressure diastolic 81 mm Hg 07/23/2025 Weight-kg 122.47 kg 07/23/2025 Height 64 in 07/23/2025 Blood pressure systolic 172 mm Hg 07/23/2025 Weight 270 lbs 07/23/2025 BMI 46.34 kg/m2 07/23/2025 Encounters Encounter Location Date Provider Diagnosis [facility] [address] [address] 07/23/2025 Coleman Padgett Fluid retention R60.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 and Peripheral polyneuropathy G62.9 [facility] [address] [address] 07/26/2024 Coleman Padgett Periorbital dermatitis L30.9 ; Diabetic feet E11.8 and Chronic kidney disease, unspecified CKD stage N18.9 [facility] [address] [address] 11/01/2024 Coleman Padgett Type 2 diabetes mellitus with hyperglycemia E11.65 ; Essential hypertension I10 ; Immunization not carried out because of patient refusal Z28.21 ; Morbid obesity E66.01 ; BMI 40.0-44.9, adult Z68.41 ; Exercise counseling Z71.82 ; Positive depression screening Z13.31 ; Depression screen Z13.31 ; Breast cancer screening by mammogram Z12.31 ; Encounter for immunization Z23 and Diabetic feet E11.8 [facility] [address] [address] 01/28/2025 Coleman Padgett Depression screen Z13.31 ; Fluid retention R60.9 ; Chronic kidney disease, unspecified CKD stage N18.9 ; Essential hypertension I10 and Aggressive ex-smoker Z87.891 [facility] [address] [address] 02/19/2025 Coleman Padgett Overflow diarrhea R19.7 ; Microalbuminuria R80.9 ; Dizziness R42 ; Nausea and vomiting, unspecified vomiting type R11.2 ; Type 2 diabetes mellitus with hyperglycemia E11.65 and Depression screen Z13.31 [facility] [address] [address] 03/11/2025 Coleman Padgett Type 2 diabetes mellitus with hyperglycemia E11.65 ; Essential hypertension I10 ; Abdominal bloating R14.0 ; Constipation, slow transit K59.01 ; Depression screen Z13.31 and Microalbuminuria R80.9 [facility] [address] [address] 03/27/2025 Coleman Padgett UTI symptoms R39.9 ; Gastroparesis K31.84 and Depression screen Z13.31 [facility] [place] 06/15/2025 Coleman Padgett Essential hypertension I10 and Morbid obesity E66.01 [facility] [address] [address] 07/03/2025 Coleman Padgett Fluid retention R60.9 ; Peripheral polyneuropathy G62.9 ; Nausea & vomiting R11.2 ; Chest pain R07.9 and Essential hypertension I10 [facility] 0 0 09/15/2024 Provider Migration [facility]Fac[facility] 0 0 09/16/2024 Provider Migration [facility] [address] [place] [address] 08/07/2024 Coleman Padgett [facility] [place] 08/08/2024 Coleman Padgett Type 2 diabetes mellitus with hyperglycemia E11.65 and Essential hypertension I10 [facility] [place] 09/06/2024 Coleman Padgett Type 2 diabetes mellitus with hyperglycemia E11.65 and Essential hypertension I10 [facility] [address] [address] 09/11/2024 Coleman Padgett Pruritus, unspecified L29.9 [facility] [place] 10/10/2024 Coleman Padgett Type 2 diabetes mellitus with hyperglycemia E11.65 and Essential hypertension I10 [facility] [place] 11/15/2024 Coleman Padgett Essential hypertension I10 and Type 2 diabetes mellitus with hyperglycemia E11.65 [facility] [place] 12/17/2024 Coleman Padgett Type 2 diabetes mellitus with hyperglycemia E11.65 and Essential hypertension I10 [facility] [place] 01/15/2025 Coleman Padgett Type 2 diabetes mellitus with hyperglycemia E11.65 and Essential hypertension I10 [facility] [place] 02/11/2025 Coleman Padgett Type 2 diabetes mellitus with hyperglycemia E11.65 and Essential hypertension I10 [facility] [address] [facility] [place] [address] 02/19/2025 Coleman Padgett [facility] [place] 02/28/2025 Coleman Padgett Type 2 diabetes mellitus with hyperglycemia E11.65 [facility] [address] [place] [address] 02/28/2025 Coleman Padgett Type 2 diabetes mellitus with hyperglycemia E11.65 [facility] [address] [place] [address] 03/04/2025 Coleman Padgett [facility] [address] [place] [address] 03/04/2025 Coleman Padgett [facility] [place] 03/08/2025 Coleman Padgett Type 2 diabetes mellitus with hyperglycemia E11.65 and Essential hypertension I10 [facility] [address] [place] [address] 03/28/2025 Coleman Padgett Gastroparesis K31.84 [facility] [place] 04/03/2025 Coleman Padgett Type 2 diabetes mellitus with hyperglycemia E11.65 and Essential hypertension I10 [facility] [place] 05/09/2025 Coleman Padgett Type 2 diabetes mellitus with hyperglycemia E11.65 and Essential hypertension I10 [facility] [place] 06/15/2025 Coleman Padgett Essential hypertension I10 and Morbid obesity E66.01 [facility] [facility] [address] [place] [address] 06/17/2025 Coleman Padgett [facility] [address] [place] [address] 07/04/2025 Coleman Padgett [facility] [place] 07/12/2025 Coleman Padgett Type 2 diabetes mellitus with hyperglycemia E11.65 and Essential hypertension I10 [facility] [address] [place] [address] 07/16/2025 Coleman Padgett Assessments Encounter Date Diagnosis (ICD Code) Assessment Notes Treatment Notes Treatment Clinical Notes Section Notes 07/26/2024 Periorbital dermatitis (ICD-10 - L30.9) 07/26/2024 Diabetic feet (ICD-10 - E11.8) 08/08/2024 Type 2 diabetes mellitus with hyperglycemia (ICD-10 - E11.65) 09/06/2024 Type 2 diabetes mellitus with hyperglycemia (ICD-10 - E11.65) 11/01/2024 Type 2 diabetes mellitus with hyperglycemia (ICD-10 - E11.65) Depression screening performed using PHQ-9 depression scale. Score greater than 5 indicating possible moderate depression. Plan of care discussed with patient and implemented accordingly, including any medications, referrals, education tools, and follow-up evaluations as deemed appropriate. 11/01/2024 Essential hypertension (ICD-10 - I10) Depression screening performed using PHQ-9 depression scale. Score greater than 5 indicating possible moderate depression. Plan of care discussed with patient and implemented accordingly, including any medications, referrals, education tools, and follow-up evaluations as deemed appropriate. 09/11/2024 Pruritus, unspecified (ICD-10 - L29.9) 10/10/2024 Type 2 diabetes mellitus with hyperglycemia (ICD-10 - E11.65) 11/15/2024 Essential hypertension (ICD-10 - I10) 12/17/2024 Type 2 diabetes mellitus with hyperglycemia (ICD-10 - E11.65) 01/15/2025 Type 2 diabetes mellitus with hyperglycemia (ICD-10 - E11.65) 01/28/2025 Depression screen (ICD-10 - Z13.31) 01/28/2025 Fluid retention (ICD-10 - R60.9) 02/19/2025 Overflow diarrhea (ICD-10 - R19.7) 02/19/2025 Microalbuminuria (ICD-10 - R80.9) 02/28/2025 Type 2 diabetes mellitus with hyperglycemia (ICD-10 - E11.65) 02/28/2025 Type 2 diabetes mellitus with hyperglycemia (ICD-10 - E11.65) 03/08/2025 Type 2 diabetes mellitus with hyperglycemia (ICD-10 - E11.65) 03/11/2025 Type 2 diabetes mellitus with hyperglycemia (ICD-10 - E11.65) o 03/11/2025 Essential hypertension (ICD-10 - I10) o 02/11/2025 Type 2 diabetes mellitus with hyperglycemia (ICD-10 - E11.65) 03/27/2025 UTI symptoms (ICD-10 - R39.9) 03/27/2025 Gastroparesis (ICD-10 - K31.84) 03/28/2025 Gastroparesis (ICD-10 - K31.84) 04/03/2025 Type 2 diabetes mellitus with hyperglycemia (ICD-10 - E11.65) 05/09/2025 Type 2 diabetes mellitus with hyperglycemia (ICD-10 - E11.65) 06/15/2025 Essential hypertension (ICD-10 - I10) 06/15/2025 Essential hypertension (ICD-10 - I10) 07/03/2025 Fluid retention (ICD-10 - R60.9) 07/03/2025 Peripheral polyneuropathy (ICD-10 - G62.9) 07/23/2025 Fluid retention (ICD-10 - R60.9) 07/12/2025 Type 2 diabetes mellitus with hyperglycemia (ICD-10 - E11.65) 07/12/2025 Essential hypertension (ICD-10 - I10) 07/23/2025 Essential hypertension (ICD-10 - I10) 07/03/2025 Nausea & vomiting (ICD-10 - R11.2) 06/15/2025 Morbid obesity (ICD-10 - E66.01) 06/15/2025 Morbid obesity (ICD-10 - E66.01) 05/09/2025 Essential hypertension (ICD-10 - I10) 04/03/2025 Essential hypertension (ICD-10 - I10) 03/27/2025 Depression screen (ICD-10 - Z13.31) 02/11/2025 Essential hypertension (ICD-10 - I10) 03/11/2025 Abdominal bloating (ICD-10 - R14.0) o 03/08/2025 Essential hypertension (ICD-10 - I10) 02/19/2025 Dizziness (ICD-10 - R42) 01/28/2025 Chronic kidney disease, unspecified CKD stage (ICD-10 - N18.9) 01/15/2025 Essential hypertension (ICD-10 - I10) 12/17/2024 Essential hypertension (ICD-10 - I10) 11/15/2024 Type 2 diabetes mellitus with hyperglycemia (ICD-10 - E11.65) 10/10/2024 Essential hypertension (ICD-10 - I10) 11/01/2024 Immunization not carried out because of patient refusal (ICD-10 - Z28.21) Depression screening performed using PHQ-9 depression scale. Score greater than 5 indicating possible moderate depression. Plan of care discussed with patient and implemented accordingly, including any medications, referrals, education tools, and follow-up evaluations as deemed appropriate. 09/06/2024 Essential hypertension (ICD-10 - I10) 08/08/2024 Essential hypertension (ICD-10 - I10) 07/26/2024 Chronic kidney disease, unspecified CKD stage (ICD-10 - N18.9) 11/01/2024 Morbid obesity (ICD-10 - E66.01) Depression screening performed using PHQ-9 depression scale. Score greater than 5 indicating possible moderate depression. Plan of care discussed with patient and implemented accordingly, including any medications, referrals, education tools, and follow-up evaluations as deemed appropriate. 01/28/2025 Essential hypertension (ICD-10 - I10) 02/19/2025 Nausea and vomiting, unspecified vomiting type (ICD-10 - R11.2) 03/11/2025 Constipation, slow transit (ICD-10 - K59.01) I will try some motegrity samples. o 07/03/2025 Chest pain (ICD-10 - R07.9) 07/23/2025 Type 2 diabetes mellitus with hyperglycemia (ICD-10 - E11.65) 07/23/2025 Periorbital dermatitis (ICD-10 - L30.9) 07/03/2025 Essential hypertension (ICD-10 - I10) 03/11/2025 Depression screen (ICD-10 - Z13.31) o 02/19/2025 Type 2 diabetes mellitus with hyperglycemia (ICD-10 - E11.65) Pt will take order for labs to a facility to have drawn and resulted to us. 01/28/2025 Aggressive ex-smoker (ICD-10 - Z87.891) 11/01/2024 BMI 40.0-44.9, adult (ICD-10 - Z68.41) Depression screening performed using PHQ-9 depression scale. Score greater than 5 indicating possible moderate depression. Plan of care discussed with patient and implemented accordingly, including any medications, referrals, education tools, and follow-up evaluations as deemed appropriate. 11/01/2024 Exercise counseling (ICD-10 - Z71.82) Depression screening performed using PHQ-9 depression scale. Score greater than 5 indicating possible moderate depression. Plan of care discussed with patient and implemented accordingly, including any medications, referrals, education tools, and follow-up evaluations as deemed appropriate. 02/19/2025 Depression screen (ICD-10 - Z13.31) 03/11/2025 Microalbuminuria (ICD-10 - R80.9) o 07/23/2025 Peripheral polyneuropathy (ICD-10 - G62.9) 11/01/2024 Positive depression screening (ICD-10 - Z13.31) Depression screening performed using PHQ-9 depression scale. Score greater than 5 indicating possible moderate depression. Plan of care discussed with patient and implemented accordingly, including any medications, referrals, education tools, and follow-up evaluations as deemed appropriate. 11/01/2024 Depression screen (ICD-10 - Z13.31) Depression screening performed using PHQ-9 depression scale. Score greater than 5 indicating possible moderate depression. Plan of care discussed with patient and implemented accordingly, including any medications, referrals, education tools, and follow-up evaluations as deemed appropriate. 11/01/2024 Breast cancer screening by mammogram (ICD-10 - Z12.31) Depression screening performed using PHQ-9 depression scale. Score greater than 5 indicating possible moderate depression. Plan of care discussed with patient and implemented accordingly, including any medications, referrals, education tools, and follow-up evaluations as deemed appropriate. 11/01/2024 Encounter for immunization (ICD-10 - Z23) Depression screening performed using PHQ-9 depression scale. Score greater than 5 indicating possible moderate depression. Plan of care discussed with patient and implemented accordingly, including any medications, referrals, education tools, and follow-up evaluations as deemed appropriate. 11/01/2024 Diabetic feet (ICD-10 - E11.8) Depression screening performed using PHQ-9 depression scale. Score greater than 5 indicating possible moderate depression. Plan of care discussed with patient and implemented accordingly, including any medications, referrals, education tools, and follow-up evaluations as deemed appropriate. Plan Of Treatment Next Appt Details Provider Name:Coleman Padgett, 11/06/2025 01:20:00 PM, [address] [facility] [address], [place], [address], Insurance Providers Payer Name Payer Address Payer Phone Subscriber Number Group Number Insured Name Patient Relationship to Insured Coverage Start Date Coverage End Date [facility] Dual Complete [address] [place] [address] [id number] Jennifer Novak Self - patient is the insured [place] Medicaid [address] [place] [address] [id number] Jennifer Novak Self - patient is the insured Medications Administered Medication Instructions Date of Administration Dosage Notes Furosemide 40mg 01/28/2025 Medical (General) History Medical History History ICD Code Irritable Bowel Syndrome Typ e 2 Diabetes: controlled; stroke 2004 PREVENTIVE HEALTH MAINTENANCE INFLUENZA VACCINE: was last done 09/13/2011 PNEUMOCOCCAL VACCINE: was last done 2001 TETANUS VACCINE: was last done 05/21/2007 gastroparesis Kidney disease stage 4 congestive heart failure dementia Blind R eye heart attack Surgical History Surgery Date(Month/Year) CholecystectomyHysterectomy: Cervical Ca ; section: X 4; oophorectomy gall bladder removal section Cholecystectomy Tonsillectomy cataract-lens implants Hospitalization History Reason Date(Month/Year) C section x 4
--- OUTSIDE RECORDS SUMMARY | 2025-07-24 07:23 | XMS_ITS | Encounter Summary ---
Author Organization [facility] Address [address] [place] [address] Care Team Providers Care Security Operations Center Analyst Name Role Phone Savannah Martinez MD Primary Care Provider [phone] Encounter Details Date Type Department Care Team (Late st Contact Info) Description 01/09/2024 Lab Requisition [facility] [address] [place] [address] [place] [address] Christi Gonzalez MD [address] [place] [address] Social History Tobacco Use Types [...] on file Legal Sex Female 2:41 PM MUSIC PUBLISHER Gender Identity Not on file Sexual Orientation Not on file documented as of this encounter Plan of Treatment Not on file documented as of this encounter Procedures Procedure Name Priority Date/Time Associated Diagnosis Comments CBC WITH DIFFERENTIAL Routine 01/09/2024 3:05 AM MUSIC PUBLISHER PHOSPHORUS Routine 01/09/2024 3:05 AM MUSIC PUBLISHER COMPREHENSIVE METABOLIC PANEL Routine 01/09/2024 3:05 AM MUSIC PUBLISHER documented in this encounter Results * (ABNORMAL) CBC WITH DIFFERENTIAL (01/09/2024 3:05 AM MUSIC PUBLISHER) [facility] WBC 6.7 4.8 - 10.8 K/uL 01/09/2024 6:29 AM [facility] RBC 2.82(L) 4.20 - 5.40 M/uL 01/09/2024 6:29 AM [facility] HEMOGLOBIN 8.0(L) 12.0 - 16.0 g/dL 01/09/2024 6:29 AM [facility] HEMATOCRIT 26.4(L) 36.0 - 46.0 % 01/09/2024 6:29 AM [facility] MCV 93.6 84.0 - 103.0 fL 01/09/2024 6:29 AM [facility] MCH 28.4 27.0 - 34.0 pg 01/09/2024 6:29 AM [facility] MCHC 30.3 30.0 - 35.0 g/dL 01/09/2024 6:29 AM [facility] RDW 15.7(H) 11.0 - 14.5 % 01/09/2024 6:29 AM [facility] RDW-STDEV 53.5 37.0 - 54.0 fL 01/09/2024 6:29 AM [facility] PLATELETS 257 140 - 440 K/uL 01/09/2024 6:29 AM [facility] MPV 10.4 8.9 - 12.8 fL 01/09/2024 6:29 AM [facility] [employer] [facility] NEUTROPHILS 67 42 - 75 % 01/09/2024 6:29 AM [facility] LYMPHOCYTES 13(L) 24 - 44 % 01/09/2024 6:29 AM [facility] MONOCYTES 12(H) 2 - 10 % 01/09/2024 6:29 AM [facility] EOSINOPHILS 5 0 - 7 % 01/09/2024 6:29 AM [facility] BASOPHILS 1 0 - 1 % 01/09/2024 6:29 AM [facility] IMMATURE GRANULOCYTES 1 0 - 2 % 01/09/2024 6:29 AM [facility] NEUTROPHIL ABSOLUTE 4.52 2.00 - 8.00 K/uL 01/09/2024 6:29 AM [facility] LYMPHOCYTE ABSOLUTE 0.90(L) 1.20 - 4.00 K/uL 01/09/2024 6:29 AM [facility] MONOCYTE ABSOLUTE 0.81(H) 0.10 - 0.60 K/uL 01/09/2024 6:29 AM [facility] EOSINOPHIL ABSOLUTE 0.36 0.00 - 0.70 K/uL 01/09/2024 6:29 AM [facility] BASOPHILS ABSOLUTE 0.09 0.00 - 0.20 K/uL 01/09/2024 6:29 AM [facility] IMMATURE GRANULOCYTES ABSOLUTE 0.06 0.00 - 0.10 K/uL 01/09/2024 6:29 AM [facility] Blood Collection / Unknown 01/09/2024 3:05 AM MUSIC PUBLISHER 01/09/2024 6:21 AM [facility] us Christi Gonzalez MD HEMATOLOGY ORDERABLES Final Res ult [facility] CLIA # [id number] [address] [address] [place] [address] * PHOSPHORUS (01/09/2024 3:05 AM [facility]) PHOSPHORUS 3.9 2.5 - 4.5 mg/dL 01/09/2024 6:57 AM [facility] Blood Collection / Unknown 01/09/2024 3:05 AM MUSIC PUBLISHER 01/09/2024 6:21 AM MUSIC PUBLISHER us Christi Gonzalez MD CHEMISTRY ORDERABLES Final Resu lt [facility] CLIA # [id number] [address] [address] [place] [address] * (ABNORMAL) COMPREHENSIVE METABOLIC PANEL (01/09/2024 3:05 AM MUSIC PUBLISHER) SODIUM 136 136 - 145 mmol/L 01/09/2024 6:57 AM [facility] POTASSIUM 4.0 3.5 - 5.1 mmol/L 01/09/2024 6:57 AM [facility] CHLORIDE 95(L) 98 - 107 mmol/L 01/09/2024 6:57 AM [facility] CO2 29 22 - 29 mmol/L 01/09/2024 6:57 AM [facility] CALCIUM 10.8(H) 8.8 - 10.2 mg/dL 01/09/2024 6:57 AM [facility] BUN 54(H) 8 - 23 mg/dL 01/09/2024 6:57 AM [facility] CREATININE 2.44(H) 0.51 - 0.95 mg/dL 01/09/2024 6:57 AM [facility] GLUCOSE 191(H) 74 - 99 mg/dL 01/09/2024 6:57 AM [facility] TOTAL PROTEIN 6.5 6.4 - 8.3 g/dL 01/09/2024 6:57 AM [facility] ALBUMIN 3.7 3.5 - 5.2 g/dL 01/09/2024 6:57 AM [facility] BILIRUBIN TOTAL 0.3 0.2 - 1.0 mg/dL 01/09/2024 6:57 AM [facility] ALKALINE PHOSPHATASE 102 35 - 104 U/L 01/09/2024 6:57 AM [facility] AST 19 10 - 35 U/L 01/09/2024 6:57 AM [facility] ALT 14 <=35 U/L 01/09/2024 6:57 AM [facility] GFR 21(L) >=60 mL/min/1. 73 sq meter 01/09/2024 6:57 AM [facility] Comment:eGFR calculated with 2020 CKD-EPI equation. Vegetarian diet, extremely high or low muscle mass, and may affect results. Cystatin C with Glomerular Filtration Rate is a suitable alternative for these patients. ANION GAP 12 9 - 20 mmol/L 01/09/2024 6:57 AM [facility] Blood Collection / Unknown 01/09/2024 3:05 AM MUSIC PUBLISHER 01/09/2024 6:21 AM MUSIC PUBLISHER us Christi Gonazlez MD CHEMISTRY ORDERABLES Final Resu lt [facility] CLIA # [id number] [facility] [id number] documented in this encounter Visit Diagnoses Not on filedocumented in this encounter Care Teams Security Operations Center Analyst Relationship Specialty Start Date End Date Savannah Martinez MD [address] [place], [place] [id number] PCP - General Family Practice 08/21/23 documented as of this encounter
--- OUTSIDE RECORDS SUMMARY | 2025-07-24 07:23 | XMS_ITS | Encounter Summary ---
Author Organization [facility] Address [address] [place] [address] Care Team Providers Care Possum Trapper Name Role Phone Savannah Martinez MD Primary Care Provider [phone] Encounter Details Date Type Department Care Team (Late st Contact Info) Description 01/10/2024 Lab Requisition [facility] Services [address] [address] [place] [address] Joselito Gomes, DO [address] [place] [address] Social History Tobacco Use Types Packs/Day Years [...] on file Legal Sex Female 2:41 PM LOG YARD DERRICK OPERATOR Gender Identity Not on file Sexual Orientation Not on file documented as of this encounter Plan of Treatment Not on file documented as of this encounter Procedures Procedure Name Priority Date/Time Associated Diagnosis Comments PTT Stat 01/10/2024 5:27 PM LOG YARD DERRICK OPERATOR documented in this encounter Results * PTT (01/10/2024 5:27 PM LOG YARD DERRICK OPERATOR) PTT 32.4 25.0 - 39.0 seconds 01/10/2024 6:38 PM LOG YARD DERRICK OPERATOR [facility] Blood Collection / Unknown 01/10/2024 5:27 PM LOG YARD DERRICK OPERATOR 01/10/2024 6:21 PM LOG YARD DERRICK OPERATOR Narrative [facility] - 01/10/2024 6:38 PM LOG YARD DERRICK OPERATOR Therapeutic Range: Hi-level PE/DVT heparin protocol 80.1 - 95.0 sec Lo-level PE/DVT heparin protocol 70.1 - 85.0 sec Cardiac Heparin Protocol 70.1 - 100.0 sec Joselito Gomes DO HEMATOLOGY ORDERABLES Final Result [facility] CLIA # [id number] [facility] [id number] documented in this encounter Visit Diagnoses Not on filedocumented in this encounter Care Teams Possum Trapper Relationship Specialty Start Date End Date Savannah Martinez MD [address] [place], [place] [id number] PCP - General Family Practice 08/21/23 documented as of this encounter
--- OUTSIDE RECORDS SUMMARY | 2025-07-24 07:23 | XMS_ITS | Encounter Summary ---
Author Organization [facility] Address [address] [place] [address] Care Team Providers Care Senior Qc Technician Name Role Phone Savannah Martinez MD Primary Care Provider [phone] Encounter Details Date Type Department Care Team (Late st Contact Info) Description 01/10/2024 Lab Requisition [facility] Laboratory Services [address] [place] [address] [place] [phone] Shanell Gabriel MD [address] [facility] [address] [place] [address] Social History Tobacco Use Types Packs/Day Years [...] on file Legal Sex Female 2:41 PM EQUINE BREEDER Gender Identity Not on file Sexual Orientation Not on file documented as of this encounter Plan of Treatment Not on file documented as of this encounter Visit Diagnoses Not on filedocumented in this encounter Care Teams Senior Qc Technician Relationship Specialty Start Date End Date Savannah Martinez MD [address] [place] [address] PCP - General Family Practice 08/21/23 documented as of this encounter
--- OUTSIDE RECORDS SUMMARY | 2025-07-24 07:24 | XMS_ITS | Encounter Summary ---
Author Organization [facility] Address [address] [place] [address] Care Team Providers Care Outbound Call Center Representative Name Role Phone Savannah Martinez MD Primary Care Provider [phone] Encounter Details Date Type Department Care Team (Late st Contact Info) Description 01/16/2024 Lab Requisition [facility] Services [address] [place] [phone] [facility], External Provider [address] [place] [address] Social History Tobacco Use Types Packs/Day Years [...] on file Legal Sex Female 2:41 PM IMPOSER Gender Identity Not on file Sexual Orientation Not on file documented as of this encounter Plan of Treatment Not on file documented as of this encounter Visit Diagnoses Not on filedocumented in this encounter Care Teams Outbound Call Center Representative Relationship Specialty Start Date End Date Savannah Martinez MD [address] [place] [address] PCP - General Family Practice 08/21/23 documented as of this encounter
--- OUTSIDE RECORDS SUMMARY | 2025-07-24 07:24 | XMS_ITS | Encounter Summary ---
Author Organization [facility] Address [address] [place] [address] Care Team Providers Care Pals Specialist Name Role Phone Savannah Martinez MD Primary Care Provider [phone] Encounter Details Date Type Department Care Team (Late st Contact Info) Description 01/13/2024 Lab Requisition [facility] Laboratory Services [address] [place] [phone] [facility], External Provider [address] [place] [address] Social History Tobacco Use Types Packs/Day Years [...] on file Legal Sex Female 2:41 PM HVAC SALES ENGINEER Gender Identity Not on file Sexual Orientation Not on file documented as of this encounter Plan of Treatment Not on file documented as of this encounter Procedures Procedure Name Priority Date/Time Associated Diagnosis Comments CBC WITH DIFFERENTIAL Routine 01/13/2024 3:35 AM HVAC SALES ENGINEER COMPREHENSIVE METABOLIC PANEL Routine 01/13/2024 3:35 AM HVAC SALES ENGINEER documented in this encounter Results * (ABNORMAL) CBC WITH DIFFERENTIAL (01/13/2024 3:35 AM HVAC SALES ENGINEER) [facility] WBC 7.2 4.8 - 10.8 K/uL 01/13/2024 6:50 AM [facility] RBC 3.06(L) 4.20 - 5.40 M/uL 01/13/2024 6:50 AM [facility] HEMOGLOBIN 8.8(L) 12.0 - 16.0 g/dL 01/13/2024 6:50 AM [facility] HEMATOCRIT 27.7(L) 36.0 - 46.0 % 01/13/2024 6:50 AM [facility] MCV 90.5 84.0 - 103.0 fL 01/13/2024 6:50 AM [facility] MCH 28.8 27.0 - 34.0 pg 01/13/2024 6:50 AM [facility] MCHC 31.8 30.0 - 35.0 g/dL 01/13/2024 6:50 AM [facility] RDW 16.2(H) 11.0 - 14.5 % 01/13/2024 6:50 AM [facility] RDW-STDEV 51.7 37.0 - 54.0 fL 01/13/2024 6:50 AM [facility] PLATELETS 295 140 - 440 K/uL 01/13/2024 6:50 AM [facility] MPV 10.1 8.9 - 12.8 fL 01/13/2024 6:50 AM [facility] NEUTROPHILS 68 42 - 75 % 01/13/2024 6:50 AM [facility] LYMPHOCYTES 16(L) 24 - 44 % 01/13/2024 6:50 AM [facility] MONOCYTES 10 2 - 10 % 01/13/2024 6:50 AM [facility] EOSINOPHILS 4 0 - 7 % 01/13/2024 6:50 AM [facility] BASOPHILS 1 0 - 1 % 01/13/2024 6:50 AM [facility] IMMATURE GRANULOCYTES 1 0 - 2 % 01/13/2024 6:50 AM [facility] NEUTROPHIL ABSOLUTE 4.88 2.00 - 8.00 K/uL 01/13/2024 6:50 AM [facility] LYMPHOCYTE ABSOLUTE 1.16(L) 1.20 - 4.00 K/uL 01/13/2024 6:50 AM [facility] MONOCYTE ABSOLUTE 0.69(H) 0.10 - 0.60 K/uL 01/13/2024 6:50 AM [facility] EOSINOPHIL ABSOLUTE 0.27 0.00 - 0.70 K/uL 01/13/2024 6:50 AM [facility] BASOPHILS ABSOLUTE 0.08 0.00 - 0.20 K/uL 01/13/2024 6:50 AM [facility] IMMATURE GRANULOCYTES ABSOLUTE 0.07 0.00 - 0.10 K/uL 01/13/2024 6:50 AM [facility] Blood Collection / Unknown 01/13/2024 3:35 AM HVAC SALES ENGINEER 01/13/2024 6:43 AM [facility] us External Provider [facility] HEMATOLOGY ORDERABLES Aida l Result [facility] CLIA # [id number] [address] [address] [place] [address] * (ABNORMAL) COMPREHENSIVE METABOLIC PANEL (01/13/2024 3:35 AM [facility]) [facility] SODIUM 136 136 - 145 mmol/L 01/13/2024 7:48 AM [facility] POTASSIUM 4.2 3.5 - 5.1 mmol/L 01/13/2024 7:48 AM [facility] CHLORIDE 98 98 - 107 mmol/L 01/13/2024 7:48 AM [facility] CO2 27 22 - 29 mmol/L 01/13/2024 7:48 AM [facility] CALCIUM 10.3(H) 8.8 - 10.2 mg/dL 01/13/2024 7:48 AM [facility] BUN 36(H) 8 - 23 mg/dL 01/13/2024 7:48 AM [facility] CREATININE 1.63(H) 0.51 - 0.95 mg/dL 01/13/2024 7:48 AM [facility] GLUCOSE 147(H) 74 - 99 mg/dL 01/13/2024 7:48 AM [facility] TOTAL PROTEIN 6.9 6.4 - 8.3 g/dL 01/13/2024 7:48 AM [facility] ALBUMIN 3.7 3.5 - 5.2 g/dL 01/13/2024 7:48 AM [facility] BILIRUBIN TOTAL 0.3 0.2 - 1.0 mg/dL 01/13/2024 7:48 AM [facility] ALKALINE PHOSPHATASE 88 35 - 104 U/L 01/13/2024 7:48 AM [facility] AST 22 10 - 35 U/L 01/13/2024 7:48 AM [facility] ALT 13 <=35 U/L 01/13/2024 7:48 AM [facility] GFR 35(L) >=60 mL/min/1. 73 sq meter 01/13/2024 7:48 AM [facility] Comment:eGFR calculated with 2020 CKD-EPI equation. Vegetarian diet, extremely high or low muscle mass, and may affect results. Cystatin C with Glomerular Filtration Rate is a suitable alternative for these patients. ANION GAP 11 9 - 20 mmol/L 01/13/2024 7:48 AM [facility] Blood Collection / Unknown 01/13/2024 3:35 AM HVAC SALES ENGINEER 01/13/2024 6:43 AM HVAC SALES ENGINEER External Provider [facility] CHEMISTRY ORDERABLES Final Result Performing Organization Address City/State/[facility] Co de Phone Number [facility] # [id number] [address] [address] documented in this encounter Visit Diagnoses Not on filedocumented in this encounter Care Teams Pals Specialist Relationship Specialty Start Date End Date Savannah Martinez MD [address] [place], [place] [address] PCP - General Family Practice 08/21/23 documented as of this encounter
--- OUTSIDE RECORDS SUMMARY | 2025-07-24 07:24 | XMS_ITS | Encounter Summary ---
Author Organization [facility] Address [address] [place] [address] Care Team Providers Care Mechanical Insulator Name Role Phone Savannah Martinez MD Primary Care Provider [phone] Encounter Details Date Type Department Care Team (Late st Contact Info) Description 01/16/2024 Lab Requisition [facility] Laboratory Services [address] [place] [phone] [facility], External Provider [address] [place] [address] Social History Tobacco Use Types Packs/Day Years [...] on file Legal Sex Female 2:41 PM DIMENSION MILL WORKER Gender Identity Not on file Sexual Orientation Not on file documented as of this encounter Plan of Treatment Not on file documented as of this encounter Procedures Procedure Name Priority Date/Time Associated Diagnosis Comments 2019 NOVEL CORONAVIRUS (COVID-19) PCR DETECTION Routine 01/16/2024 6:50 PM DIMENSION MILL WORKER documented in this encounter Results * 2019 NOVEL CORONAVIRUS (COVID-19) PCR DETECTION (01/16/2024 6:50 PM DIMENSION MILL WORKER) COVID-19 PCR NOT DETECTED Not Detected 01/16/2024 8:21 PM DIMENSION MILL WORKER [facility] LABORATORY [facility] PERFORMING LAB [facility] 01/16/2024 8:21 PM DIMENSION MILL WORKER [facility] Upper Respiratory Collection / Unknown 01/16/2024 6:50 PM DIMENSION MILL WORKER 01/16/2024 7:41 PM DIMENSION MILL WORKER Narrative [facility] - 01/16/2024 8:21 PM DIMENSION MILL WORKER This test has been authorized by the FDA under an Emergency Use Authorization for use by authorized laboratories. This test has been validated in accordance with the FDA's guidance regarding Coronavirus Disease-2019 testing. Optimum specimen types and timing for peak viral levels during infection have not been determined. A negative RT-PCR result does not rule out infection with the 2019-Novel Coronavirus. External Provider [facility] MICROBIOLOGY - GENERAL ORD ERABLES Final Result [facility] CLIA # [id number] [facility] [address] documented in this encounter Visit Diagnoses Not on filedocumented in this encounter Care Teams Mechanical Insulator Relationship Specialty Start Date End Date Savannah Martinez MD [address] [place], [place] [address] PCP - General Family Practice 08/21/23 documented as of this encounter
--- OUTSIDE RECORDS SUMMARY | 2025-07-24 07:24 | XMS_ITS | Encounter Summary ---
Author Organization [facility] Address [address] [place] [address] Care Team Providers Care Learning And Development Director Name Role Phone Savannah Martinez MD Primary Care Provider [phone] Encounter Details Date Type Department Care Team (Late st Contact Info) Description 01/11/2024 Lab Requisition [facility] Laboratory Services [address] [place] [phone] Manuel Lang MD [address] [place] [address] [address] [place] [address] Social History Tobacco Use Types Packs/Day Years [...] on file Legal Sex Female 2:41 PM WEIGHER AND CRUSHER Gender Identity Not on file Sexual Orientation Not on file documented as of this encounter Plan of Treatment Not on file documented as of this encounter Procedures Procedure Name Priority Date/Time Associated Diagnosis Comments CBC WITH DIFFERENTIAL Routine 01/11/2024 4:15 AM WEIGHER AND CRUSHER COMPREHENSIVE METABOLIC PANEL Routine 01/11/2024 4:15 AM WEIGHER AND CRUSHER documented in this encounter Results * (ABNORMAL) CBC WITH DIFFERENTIAL (01/11/2024 4:15 AM WEIGHER AND CRUSHER) [facility] WBC 7.9 4.8 - 10.8 K/uL 01/11/2024 7:30 AM [facility] RBC 2.85(L) 4.20 - 5.40 M/uL 01/11/2024 7:30 AM [facility] HEMOGLOBIN 8.1(L) 12.0 - 16.0 g/dL 01/11/2024 7:30 AM [facility] HEMATOCRIT 25.8(L) 36.0 - 46.0 % 01/11/2024 7:30 AM [facility] MCV 90.5 84.0 - 103.0 fL 01/11/2024 7:30 AM [facility] MCH 28.4 27.0 - 34.0 pg 01/11/2024 7:30 AM [facility] MCHC 31.4 30.0 - 35.0 g/dL 01/11/2024 7:30 AM [facility] RDW 15.8(H) 11.0 - 14.5 % 01/11/2024 7:30 AM [facility] RDW-STDEV 51.7 37.0 - 54.0 fL 01/11/2024 7:30 AM [facility] PLATELETS 289 140 - 440 K/uL 01/11/2024 7:30 AM [facility] MPV 10.4 8.9 - 12.8 fL 01/11/2024 7:30 AM [facility] NEUTROPHILS 71 42 - 75 % 01/11/2024 7:30 AM [facility] LYMPHOCYTES 12(L) 24 - 44 % 01/11/2024 7:30 AM [facility] MONOCYTES 11(H) 2 - 10 % 01/11/2024 7:30 AM [facility] EOSINOPHILS 4 0 - 7 % 01/11/2024 7:30 AM [facility] BASOPHILS 1 0 - 1 % 01/11/2024 7:30 AM [facility] IMMATURE GRANULOCYTES 1 0 - 2 % 01/11/2024 7:30 AM [facility] NEUTROPHIL ABSOLUTE 5.59 2.00 - 8.00 K/uL 01/11/2024 7:30 AM [facility] LYMPHOCYTE ABSOLUTE 0.94(L) 1.20 - 4.00 K/uL 01/11/2024 7:30 AM [facility] MONOCYTE ABSOLUTE 0.85(H) 0.10 - 0.60 K/uL 01/11/2024 7:30 AM [facility] EOSINOPHIL ABSOLUTE 0.35 0.00 - 0.70 K/uL 01/11/2024 7:30 AM [facility] BASOPHILS ABSOLUTE 0.10 0.00 - 0.20 K/uL 01/11/2024 7:30 AM [facility] IMMATURE GRANULOCYTES ABSOLUTE 0.08 0.00 - 0.10 K/uL 01/11/2024 7:30 AM [facility] Blood Collection / Unknown 01/11/2024 4:15 AM WEIGHER AND CRUSHER 01/11/2024 7:26 AM [facility] us Manuel Lang MD HEMATOLOGY ORDERABLES Final Result [facility] CLIA # [id number] [facility] [address] [place] [address] * (ABNORMAL) COMPREHENSIVE METABOLIC PANEL (01/11/2024 4:15 AM WEIGHER AND CRUSHER) [facility] SODIUM 137 136 - 145 mmol/L 01/11/2024 8:39 AM [facility] POTASSIUM 4.1 3.5 - 5.1 mmol/L 01/11/2024 8:39 AM [facility] CHLORIDE 98 98 - 107 mmol/L 01/11/2024 8:39 AM [facility] CO2 27 22 - 29 mmol/L 01/11/2024 8:39 AM [facility] CALCIUM 10.5(H) 8.8 - 10.2 mg/dL 01/11/2024 8:39 AM [facility] BUN 43(H) 8 - 23 mg/dL 01/11/2024 8:39 AM [facility] CREATININE 1.90(H) 0.51 - 0.95 mg/dL 01/11/2024 8:39 AM [facility] GLUCOSE 145(H) 74 - 99 mg/dL 01/11/2024 8:39 AM [facility] TOTAL PROTEIN 6.7 6.4 - 8.3 g/dL 01/11/2024 8:39 AM [facility] ALBUMIN 3.7 3.5 - 5.2 g/dL 01/11/2024 8:39 AM [facility] BILIRUBIN TOTAL 0.3 0.2 - 1.0 mg/dL 01/11/2024 8:39 AM [facility] ALKALINE PHOSPHATASE 83 35 - 104 U/L 01/11/2024 8:39 AM [facility] AST 20 10 - 35 U/L 01/11/2024 8:39 AM [facility] ALT 13 <=35 U/L 01/11/2024 8:39 AM [facility] GFR 29(L) >=60 mL/min/1. 73 sq meter 01/11/2024 8:39 AM [facility] Comment:eGFR calculated with 2020 CKD-EPI equation. Vegetarian diet, extremely high or low muscle mass, and may affect results. Cystatin C with Glomerular Filtration Rate is a suitable alternative for these patients. ANION GAP 12 9 - 20 mmol/L 01/11/2024 8:39 AM [facility] Blood Collection / Unknown 01/11/2024 4:15 AM WEIGHER AND CRUSHER 01/11/2024 7:26 AM [employer] [employer] us Manuel Lang MD CHEMISTRY ORDERABLES Final R esult [facility] LABORATORY SERVICES [facility] CLIA # [id number] [address] [place] [address] documented in this encounter Visit Diagnoses Not on filedocumented in this encounter Care Teams Learning And Development Director Relationship Specialty Start Date End Date Savannah Martinez MD [address] [place], [place] [address] PCP - General Family Practice 08/21/23 documented as of this encounter
--- OUTSIDE RECORDS SUMMARY | 2025-07-24 07:24 | XMS_ITS | Encounter Summary ---
Author Organization [facility] Address [address] [place] [address] Care Team Providers Care Cs Associate Name Role Phone Savannah Martinez MD Primary Care Provider [phone] Encounter Details Date Type Department Care Team (Late st Contact Info) Description 01/16/2024 Lab Requisition [facility] Laboratory Services [address] [place] [phone] [facility], External Provider [address] [place] [address] Social History Tobacco Use Types Packs/Day Years [...] on file Legal Sex Female 2:41 PM MANAGER OF ALLIED HEALTH SERVICES Gender Identity Not on file Sexual Orientation Not on file documented as of this encounter Plan of Treatment Not on file documented as of this encounter Procedures Procedure Name Priority Date/Time Associated Diagnosis Comments CBC WITH DIFFERENTIAL Routine 01/16/2024 2:33 AM MANAGER OF ALLIED HEALTH SERVICES PHOSPHORUS Routine 01/16/2024 2:33 AM MANAGER OF ALLIED HEALTH SERVICES COMPREHENSIVE METABOLIC PANEL Routine 01/16/2024 2:33 AM MANAGER OF ALLIED HEALTH SERVICES documented in this encounter Results * PHOSPHORUS (01/16/2024 2:33 AM MANAGER OF ALLIED HEALTH SERVICES) Pathologist [facility] PHOSPHORUS 3.8 2.5 - 4.5 mg/dL 01/16/2024 9:40 AM [facility] Blood Collection / Unknown 01/16/2024 2:33 AM MANAGER OF ALLIED HEALTH SERVICES 01/16/2024 9:08 AM MANAGER OF [employer]IED [employer] SERVICES us External Provider [facility] CHEMISTRY ORDERABLES Final Result Performing Organization Address City/State/[facility] Co de Phone Number [facility] CLIA # [id number] [facility] [address] * (ABNORMAL) CBC WITH DIFFERENTIAL (01/16/2024 2:33 AM MANAGER OF ALLIED HEALTH SERVICES) [facility] WBC 7.0 4.8 - 10.8 K/uL 01/16/2024 9:18 AM [facility] RBC 3.19(L) 4.20 - 5.40 M/uL 01/16/2024 9:18 AM [facility] HEMOGLOBIN 9.0(L) 12.0 - 16.0 g/dL 01/16/2024 9:18 AM [facility] HEMATOCRIT 29.4(L) 36.0 - 46.0 % 01/16/2024 9:18 AM [facility] MCV 92.2 84.0 - 103.0 fL 01/16/2024 9:18 AM [facility] MCH 28.2 27.0 - 34.0 pg 01/16/2024 9:18 AM [facility] MCHC 30.6 30.0 - 35.0 g/dL 01/16/2024 9:18 AM [facility] RDW 16.9(H) 11.0 - 14.5 % 01/16/2024 9:18 AM [facility] RDW-STDEV 56.1(H) 37.0 - 54.0 fL 01/16/2024 9:18 AM [facility] PLATELETS 279 140 - 440 K/uL 01/16/2024 9:18 AM [facility] MPV 10.3 8.9 - 12.8 fL 01/16/2024 9:18 AM [facility] NEUTROPHILS 62 42 - 75 % 01/16/2024 9:18 AM [facility] LYMPHOCYTES 20(L) 24 - 44 % 01/16/2024 9:18 AM [facility] MONOCYTES 10 2 - 10 % 01/16/2024 9:18 AM [facility] EOSINOPHILS 6 0 - 7 % 01/16/2024 9:18 AM [facility] BASOPHILS 1 0 - 1 % 01/16/2024 9:18 AM [facility] IMMATURE GRANULOCYTES 1 0 - 2 % 01/16/2024 9:18 AM [facility] NEUTROPHIL ABSOLUTE 4.34 2.00 - 8.00 K/uL 01/16/2024 9:18 AM [facility] LYMPHOCYTE ABSOLUTE 1.39 1.20 - 4.00 K/uL 01/16/2024 9:18 AM [facility] MONOCYTE ABSOLUTE 0.73(H) 0.10 - 0.60 K/uL 01/16/2024 9:18 AM [facility] EOSINOPHIL ABSOLUTE 0.41 0.00 - 0.70 K/uL 01/16/2024 9:18 AM [facility] BASOPHILS ABSOLUTE 0.09 0.00 - 0.20 K/uL 01/16/2024 9:18 AM [facility] IMMATURE GRANULOCYTES ABSOLUTE 0.04 0.00 - 0.10 K/uL 01/16/2024 9:18 AM [facility] Blood Collection / Unknown 01/16/2024 2:33 AM MANAGER OF ALLIED HEALTH SERVICES 01/16/2024 9:08 AM MANAGER OF ALLIED HEALTH SERVICES us External Provider [facility] HEMATOLOGY ORDERABLES Aida l Result [facility] CLIA # [id number] [facility] [address] [place] [address] * (ABNORMAL) COMPREHENSIVE METABOLIC PANEL (01/16/2024 2:33 AM MANAGER OF ALLIED HEALTH SERVICES) SODIUM 137 136 - 145 mmol/L 01/16/2024 9:40 AM [facility] POTASSIUM 4.5 3.5 - 5.1 mmol/L 01/16/2024 9:40 AM [facility] CHLORIDE 99 98 - 107 mmol/L 01/16/2024 9:40 AM [facility] CO2 28 22 - 29 mmol/L 01/16/2024 9:40 AM [facility] CALCIUM 10.3(H) 8.8 - 10.2 mg/dL 01/16/2024 9:40 AM [facility] BUN 32(H) 8 - 23 mg/dL 01/16/2024 9:40 AM [facility] CREATININE 1.61(H) 0.51 - 0.95 mg/dL 01/16/2024 9:40 AM [facility] GLUCOSE 158(H) 74 - 99 mg/dL 01/16/2024 9:40 AM [facility] TOTAL PROTEIN 6.5 6.4 - 8.3 g/dL 01/16/2024 9:40 AM [facility] ALBUMIN 3.7 3.5 - 5.2 g/dL 01/16/2024 9:40 AM [facility] BILIRUBIN TOTAL 0.3 0.2 - 1.0 mg/dL 01/16/2024 9:40 AM [facility] ALKALINE PHOSPHATASE 86 35 - 104 U/L 01/16/2024 9:40 AM [facility] AST 21 10 - 35 U/L 01/16/2024 9:40 AM [facility] ALT 14 <=35 U/L 01/16/2024 9:40 AM [facility] GFR 35(L) >=60 mL/min/1. 73 sq meter 01/16/2024 9:40 AM [facility] Comment:eGFR calculated with 2020 CKD-EPI equation. Vegetarian diet, extremely high or low muscle mass, and may affect results. Cystatin C with Glomerular Filtration Rate is a suitable alternative for these patients. ANION GAP 10 9 - 20 mmol/L 01/16/2024 9:40 AM [facility] Blood Collection / Unknown 01/16/2024 2:33 AM MANAGER OF ALLIED HEALTH SERVICES 01/16/2024 9:08 AM MANAGER OF ALLIED HEALTH SERVICES External Provider [facility] CHEMISTRY ORDERABLES Final Result Performing Organization Address City/State/[facility] Co de Phone Number [facility] CLIA # [id number] [address] [place] [id number] documented in this encounter Visit Diagnoses Not on filedocumented in this encounter Care Teams Cs Associate Relationship Specialty Start Date End Date Savannah Martinez MD [address] [place] [address] PCP - General Family Practice 08/21/23 documented as of this encounter
--- NOTE | 2025-07-24 07:25 | CTR_ITS ---
PROCEDURE INFORMATION: Exam: CT Head Without Contrast Exam date and time: 07/24/2025 7:30 AM Age: 70 years old Clinical indication: Stroke-like symptoms; Dizziness/giddiness and visual disturbance; [place] lower extremity weakness; Additional info: Symptoms of acute stroke TECHNIQUE: Imaging protocol: Computed tomography of the head without contrast. Radiation optimization: All CT scans at this facility use at least one of these dose optimization techniques: automated exposure control; mA and/or kV adjustment per patient size (includes targeted exams where dose is matched to clinical indication); or iterative reconstruction. Other technique: STROKE PROTOCOL was implemented. COMPARISON: CT head wo con* [id number] 01/16/2025 2:45 PM RADIATION DOSE METRICS: Total DLP (mGy-cm): 1093.09 FINDINGS: Brain: Mild hypoattenuating foci are noted in the anterior lateral ventricular periventricular white matter bilaterally. No intracranial hemorrhage. No mass or acute cortical infarction identified. Ventricles: Mild prominence of the ventricular system and subarachnoid spaces is consistent with the patient's age of 70 years. Paranasal sinuses: A cyst/polyp is present in the medial inferior right maxillary sinus. Mastoid air cells: Visualized mastoid air cells are well aerated. Orbital cavities: Left prior cataract surgery. PROCEDURE INFORMATION: Bones: No acute abnormality identified. No acute fracture. Soft tissues: Unremarkable. Vasculature: Atherosclerotic calcifications are present involving the carotid artery siphons bilaterally and the left vertebral artery. CT/CT head thrombolytic [id number] IMPRESSION: 1. Age appropriate mild supratentorial and infratentorial atrophy. 2. Mild chronic white matter microvascular ischemic disease. 3. No acute intracranial abnormality identified. ASSESSMENT: ASPECTS ([place] Stroke Program Early CT Score) is 10.
--- OUTSIDE RECORDS SUMMARY | 2025-07-24 07:25 | XMS_ITS | Encounter Summary ---
Author Organization [facility] Address [address] [place] [address] Care Team Providers Care Valve Grinder Name Role Phone Savannah Martinez MD Primary Care Provider [phone] Encounter Details Date Type Department Care Team (Late st Contact Info) Description 01/25/2024 Lab Requisition [facility] Laboratory Services [address] [place] [phone] [facility], External Provider [address] [place] [address] Social History Tobacco Use Types Packs/Day Years [...] on file Legal Sex Female 2:41 PM CONSUMER BANKER Gender Identity Not on file Sexual Orientation Not on file documented as of this encounter Plan of Treatment Not on file documented as of this encounter Procedures Procedure Name Priority Date/Time Associated Diagnosis Comments BASIC METABOLIC PANEL Routine 01/25/2024 2:15 AM CONSUMER BANKER documented in this encounter Results * (ABNORMAL) BASIC METABOLIC PANEL (01/25/2024 2:15 AM CONSUMER BANKER) SODIUM 139 136 - 145 mmol/L 01/25/2024 7:12 AM [facility] POTASSIUM 5.1 3.5 - 5.1 mmol/L 01/25/2024 7:12 AM [facility] CHLORIDE 102 98 - 107 mmol/L 01/25/2024 7:12 AM [facility] CO2 24 22 - 29 mmol/L 01/25/2024 7:12 AM [facility] CALCIUM 10.2 8.8 - 10.2 mg/dL 01/25/2024 7:12 AM [facility] BUN 43(H) 8 - 23 mg/dL 01/25/2024 7:12 AM [facility] CREATININE 2.34(H) 0.51 - 0.95 mg/dL 01/25/2024 7:12 AM [facility] GLUCOSE 219(H) 74 - 99 mg/dL 01/25/2024 7:12 AM [facility] GFR 22(L) >=60 mL/min/1. 73 sq meter 01/25/2024 7:12 AM [facility] Comment:eGFR calculated with 2020 CKD-EPI equation. Vegetarian diet, extremely high or low muscle mass, and may affect results. Cystatin C with Glomerular Filtration Rate is a suitable alternative for these patients. ANION GAP 13 9 - 20 mmol/L 01/25/2024 7:12 AM [facility] Blood Collection / Unknown 01/25/2024 2:15 AM CONSUMER BANKER 01/25/2024 6:31 AM CONSUMER BANKER us External Provider [facility] CHEMISTRY ORDERABLES Final Result [facility] CLIA # [id number] [address] [facility] [place] [address] documented in this encounter Visit Diagnoses Not on filedocumented in this encounter Care Teams Valve Grinder Relationship Specialty Start Date End Date Savannah Martinez MD [address] [place], [place] [address] PCP - General Family Practice 08/21/23 documented as of this encounter
--- OUTSIDE RECORDS SUMMARY | 2025-07-24 07:25 | XMS_ITS | Encounter Summary ---
Author Organization [facility] Address [address] [place] [address] Care Team Providers Care Sagger Preparer Name Role Phone Savannah Martinez MD Primary Care Provider [phone] Encounter Details Date Type Department Care Team (Late st Contact Info) Description 01/19/2024 Lab Requisition [facility] Laboratory Services [address] [place] [address] Jairo Beckwith MD [address] [place] [address] Social History Tobacco Use Types [...] on file Legal Sex Female 2:41 PM MAKING MACHINE OPERATOR Gender Identity Not on file Sexual Orientation Not on file documented as of this encounter Plan of Treatment Not on file documented as of this encounter Procedures Procedure Name Priority Date/Time Associated Diagnosis Comments RENAL FUNCTION PANEL Routine 01/19/2024 3:20 AM MAKING MACHINE OPERATOR documented in this encounter Results * (ABNORMAL) RENAL FUNCTION PANEL (01/19/2024 3:20 AM MAKING MACHINE OPERATOR) SODIUM 139 136 - 145 mmol/L 01/19/2024 9:29 AM [facility] POTASSIUM 4.6 3.5 - 5.1 mmol/L 01/19/2024 9:29 AM [facility] CHLORIDE 101 98 - 107 mmol/L 01/19/2024 9:29 AM [facility] CO2 27 22 - 29 mmol/L 01/19/2024 9:29 AM [facility] CALCIUM 10.0 8.8 - 10.2 mg/dL 01/19/2024 9:29 AM [facility] BUN 29(H) 8 - 23 mg/dL 01/19/2024 9:29 AM [facility] CREATININE 1.91(H) 0.51 - 0.95 mg/dL 01/19/2024 9:29 AM [facility] GLUCOSE 189(H) 74 - 99 mg/dL 01/19/2024 9:29 AM [facility] ALBUMIN 3.8 3.5 - 5.2 g/dL 01/19/2024 9:29 AM [facility] PHOSPHORUS 4.5 2.5 - 4.5 mg/dL 01/19/2024 9:29 AM [facility] GFR 29(L) >=60 mL/min/1. 73 sq meter 01/19/2024 9:29 AM [facility] Comment:eGFR calculated with 2020 CKD-EPI equation. Vegetarian diet, extremely high or low muscle mass, and may affect results. Cystatin C with Glomerular Filtration Rate is a suitable alternative for these patients. ANION GAP 11 9 - 20 mmol/L 01/19/2024 9:29 AM [facility] Blood Collection / Unknown 01/19/2024 3:20 AM MAKING MACHINE OPERATOR 01/19/2024 8:00 AM MAKING MACHINE OPERATOR us Jairo Beckwith MD CHEMISTRY ORDERABLES Final Resul t Performing Organization Address City/State/[facility] Co de Phone Number [facility] # [id number] [facility] [address] documented in this encounter Visit Diagnoses Not on filedocumented in this encounter Care Teams Sagger Preparer Relationship Specialty Start Date End Date Savannah Martinez MD [address], [place] [address] PCP - General Family Practice 08/21/23 documented as of this encounter
--- OUTSIDE RECORDS SUMMARY | 2025-07-24 07:25 | XMS_ITS | Encounter Summary ---
Author Organization [facility] Address [address] [place] [address] Care Team Providers Care Restaurant Service Manager Name Role Phone Savannah Martinez MD Primary Care Provider [phone] Encounter Details Date Type Department Care Team (Late st Contact Info) Description 01/26/2024 Lab Requisition [facility] Laboratory Services [address] [place] [phone] [facility], External Provider [address] [place] [address] Social History Tobacco Use Types Packs/Day Years [...] on file Legal Sex Female 2:41 PM GROMMET WORKER Gender Identity Not on file Sexual Orientation Not on file documented as of this encounter Plan of Treatment Not on file documented as of this encounter Procedures Procedure Name Priority Date/Time Associated Diagnosis Comments CBC WITH DIFFERENTIAL Routine 01/26/2024 4:20 AM GROMMET WORKER BASIC METABOLIC PANEL Routine 01/26/2024 4:20 AM GROMMET WORKER documented in this encounter Results * (ABNORMAL) CBC WITH DIFFERENTIAL (01/26/2024 4:20 AM GROMMET WORKER) Pathologist [facility] WBC 5.5 4.8 - 10.8 K/uL 01/26/2024 9:27 AM [facility] RBC 3.29(L) 4.20 - 5.40 M/uL 01/26/2024 9:27 AM [facility] HEMOGLOBIN 9.7(L) 12.0 - 16.0 g/dL 01/26/2024 9:27 AM [facility] HEMATOCRIT 31.0(L) 36.0 - 46.0 % 01/26/2024 9:27 AM [facility] MCV 94.2 84.0 - 103.0 fL 01/26/2024 9:27 AM [facility] MCH 29.5 27.0 - 34.0 pg 01/26/2024 9:27 AM [facility] MCHC 31.3 30.0 - 35.0 g/dL 01/26/2024 9:27 AM [facility] RDW 16.2(H) 11.0 - 14.5 % 01/26/2024 9:27 AM [facility] RDW-STDEV 55.6(H) 37.0 - 54.0 fL 01/26/2024 9:27 AM [facility] PLATELETS 214 140 - 440 K/uL 01/26/2024 9:27 AM [facility] MPV 10.3 8.9 - 12.8 fL 01/26/2024 9:27 AM [facility] NEUTROPHILS 58 42 - 75 % 01/26/2024 9:27 AM [facility] LYMPHOCYTES 23(L) 24 - 44 % 01/26/2024 9:27 AM [facility] MONOCYTES 9 2 - 10 % 01/26/2024 9:27 AM [facility] EOSINOPHILS 7 0 - 7 % 01/26/2024 9:27 AM [facility] BASOPHILS 1 0 - 1 % 01/26/2024 9:27 AM [facility] IMMATURE GRANULOCYTES 1 0 - 2 % 01/26/2024 9:27 AM [facility] NEUTROPHIL ABSOLUTE 3.23 2.00 - 8.00 K/uL 01/26/2024 9:27 AM [facility] LYMPHOCYTE ABSOLUTE 1.29 1.20 - 4.00 K/uL 01/26/2024 9:27 AM [facility] MONOCYTE ABSOLUTE 0.50 0.10 - 0.60 K/uL 01/26/2024 9:27 AM [facility] EOSINOPHIL ABSOLUTE 0.41 0.00 - 0.70 K/uL 01/26/2024 9:27 AM [facility] BASOPHILS ABSOLUTE 0.08 0.00 - 0.20 K/uL 01/26/2024 9:27 AM [facility] IMMATURE GRANULOCYTES ABSOLUTE 0.03 0.00 - 0.10 K/uL 01/26/2024 9:27 AM [facility] Blood Collection / Unknown 01/26/2024 4:20 AM GROMMET WORKER 01/26/2024 9:12 AM [facility] us External Provider [facility] HEMATOLOGY ORDERABLES Aida l Result [facility] CLIA # [id number] [address] [place] [address] [place], [place] [id number] * (ABNORMAL) BASIC METABOLIC PANEL (01/26/2024 4:20 AM [facility]) SODIUM 140 136 - 145 mmol/L 01/26/2024 9:47 AM [facility] POTASSIUM 4.8 3.5 - 5.1 mmol/L 01/26/2024 9:47 AM [facility] CHLORIDE 103 98 - 107 mmol/L 01/26/2024 9:47 AM [facility] CO2 24 22 - 29 mmol/L 01/26/2024 9:47 AM [facility] CALCIUM 10.0 8.8 - 10.2 mg/dL 01/26/2024 9:47 AM [facility] BUN 42(H) 8 - 23 mg/dL 01/26/2024 9:47 AM [facility] CREATININE 2.25(H) 0.51 - 0.95 mg/dL 01/26/2024 9:47 AM [facility] GLUCOSE 135(H) 74 - 99 mg/dL 01/26/2024 9:47 AM [facility] GFR 23(L) >=60 mL/min/1. 73 sq meter 01/26/2024 9:47 AM [facility] Comment:eGFR calculated with 2020 CKD-EPI equation. Vegetarian diet, extremely high or low muscle mass, and may affect results. Cystatin C with Glomerular Filtration Rate is a suitable alternative for these patients. ANION GAP 13 9 - 20 mmol/L 01/26/2024 9:47 AM [facility] Blood Collection / Unknown 01/26/2024 4:20 AM GROMMET WORKER 01/26/2024 9:13 AM GROMMET WORKER External Provider [facility] CHEMISTRY ORDERABLES Final Result [facility] CLIA # [id number] Replaced by [facility] [address] [place], [place] [id number] documented in this encounter Visit Diagnoses Not on filedocumented in this encounter Care Teams Restaurant Service Manager Relationship Specialty Start Date End Date Savannah Martinez MD [address] [place], [place] [address] PCP - General Family Practice 08/21/23 documented as of this encounter
--- OUTSIDE RECORDS SUMMARY | 2025-07-24 07:25 | XMS_ITS | Encounter Summary ---
Author Organization [facility] Address [address] [place] [address] Care Team Providers Care Bed Machine Operator Name Role Phone Savannah Martinez MD Primary Care Provider [phone] Encounter Details Date Type Department Care Team (Late st Contact Info) Description 01/24/2024 Lab Requisition [facility] Laboratory Services [address] [place] [phone] [facility], External Provider [address] [place] [address] Social History Tobacco Use Types Packs/Day Years [...] on file Legal Sex Female 2:41 PM CIRCUIT BREAKER ASSEMBLER Gender Identity Not on file Sexual Orientation Not on file documented as of this encounter Plan of Treatment Not on file documented as of this encounter Procedures Procedure Name Priority Date/Time Associated Diagnosis Comments BASIC METABOLIC PANEL Routine 01/24/2024 4:20 AM CIRCUIT BREAKER ASSEMBLER documented in this encounter Results * (ABNORMAL) BASIC METABOLIC PANEL (01/24/2024 4:20 AM CIRCUIT BREAKER ASSEMBLER) SODIUM 139 136 - 145 mmol/L 01/24/2024 7:06 AM [facility] POTASSIUM 4.9 3.5 - 5.1 mmol/L 01/24/2024 7:06 AM [facility] CHLORIDE 104 98 - 107 mmol/L 01/24/2024 7:06 AM [facility] CO2 25 22 - 29 mmol/L 01/24/2024 7:06 AM [facility] CALCIUM 9.8 8.8 - 10.2 mg/dL 01/24/2024 7:06 AM [facility] BUN 42(H) 8 - 23 mg/dL 01/24/2024 7:06 AM [facility] CREATININE 2.31(H) 0.51 - 0.95 mg/dL 01/24/2024 7:06 AM [facility] GLUCOSE 153(H) 74 - 99 mg/dL 01/24/2024 7:06 AM [facility] GFR 23(L) >=60 mL/min/1. 73 sq meter 01/24/2024 7:06 AM [facility] Comment:eGFR calculated with 2020 CKD-EPI equation. Vegetarian diet, extremely high or low muscle mass, and may affect results. Cystatin C with Glomerular Filtration Rate is a suitable alternative for these patients. ANION GAP 10 9 - 20 mmol/L 01/24/2024 7:06 AM [facility] Blood Collection / Unknown 01/24/2024 4:20 AM CIRCUIT BREAKER ASSEMBLER 01/24/2024 6:30 AM CIRCUIT BREAKER ASSEMBLER us External Provider [facility] CHEMISTRY ORDERABLES Final Result [facility] CLIA # [id number] [address] [facility] [place] [address] documented in this encounter Visit Diagnoses Not on filedocumented in this encounter Care Teams Bed Machine Operator Relationship Specialty Start Date End Date Savannah Martinez MD [address] [place], [place] [id number] PCP - General Family Practice 08/21/23 documented as of this encounter
--- OUTSIDE RECORDS SUMMARY | 2025-07-24 07:25 | XMS_ITS | Encounter Summary ---
Author Organization [facility] Address [address] [place] [address] Care Team Providers Care Pourer Metal Name Role Phone Savannah Martinez MD Primary Care Provider Encounter Details Date Type Department Care Team (Late st Contact Info) Description 01/18/2024 Lab Requisition [facility] Laboratory Services [address] [place] [phone] [facility], External Provider [address] [place] [address] Social History Tobacco Use Types Packs/Day Years [...] on file Legal Sex Female 2:41 PM FOOD EXPEDITOR Gender Identity Not on file Sexual Orientation Not on file documented as of this encounter Plan of Treatment Not on file documented as of this encounter Procedures Procedure Name Priority Date/Time Associated Diagnosis Comments CBC WITH DIFFERENTIAL Routine 01/18/2024 3:40 AM FOOD EXPEDITOR COMPREHENSIVE METABOLIC PANEL Routine 01/18/2024 3:40 AM FOOD EXPEDITOR documented in this encounter Results * (ABNORMAL) CBC WITH DIFFERENTIAL (01/18/2024 3:40 AM FOOD EXPEDITOR) Pathologist [facility] WBC 5.9 4.8 - 10.8 K/uL 01/18/2024 7:19 AM [facility] RBC 3.22(L) 4.20 - 5.40 M/uL 01/18/2024 7:19 AM [facility] HEMOGLOBIN 9.3(L) 12.0 - 16.0 g/dL 01/18/2024 7:19 AM [facility] HEMATOCRIT 29.9(L) 36.0 - 46.0 % 01/18/2024 7:19 AM [facility] MCV 92.9 84.0 - 103.0 fL 01/18/2024 7:19 AM [facility] MCH 28.9 27.0 - 34.0 pg 01/18/2024 7:19 AM [facility] MCHC 31.1 30.0 - 35.0 g/dL 01/18/2024 7:19 AM [facility] RDW 16.9(H) 11.0 - 14.5 % 01/18/2024 7:19 AM [facility] RDW-STDEV 57.6(H) 37.0 - 54.0 fL 01/18/2024 7:19 AM [facility] PLATELETS 256 140 - 440 K/uL 01/18/2024 7:19 AM [facility] MPV 10.3 8.9 - 12.8 fL 01/18/2024 7:19 AM [facility] NEUTROPHILS 57 42 - 75 % 01/18/2024 7:19 AM [facility] LYMPHOCYTES 22(L) 24 - 44 % 01/18/2024 7:19 AM [facility] MONOCYTES 12(H) 2 - 10 % 01/18/2024 7:19 AM [facility] EOSINOPHILS 7 0 - 7 % 01/18/2024 7:19 AM [facility] BASOPHILS 2(H) 0 - 1 % 01/18/2024 7:19 AM [facility] IMMATURE GRANULOCYTES 0 0 - 2 % 01/18/2024 7:19 AM [facility] NEUTROPHIL ABSOLUTE 3.36 2.00 - 8.00 K/uL 01/18/2024 7:19 AM [facility] LYMPHOCYTE ABSOLUTE 1.28 1.20 - 4.00 K/uL 01/18/2024 7:19 AM [facility] MONOCYTE ABSOLUTE 0.73(H) 0.10 - 0.60 K/uL 01/18/2024 7:19 AM [facility] EOSINOPHIL ABSOLUTE 0.39 0.00 - 0.70 K/uL 01/18/2024 7:19 AM [facility] BASOPHILS ABSOLUTE 0.10 0.00 - 0.20 K/uL 01/18/2024 7:19 AM [facility] IMMATURE GRANULOCYTES ABSOLUTE 0.02 0.00 - 0.10 K/uL 01/18/2024 7:19 AM [facility] Blood Collection / Unknown 01/18/2024 3:40 AM FOOD EXPEDITOR 01/18/2024 7:09 AM [facility] us External Provider [facility] HEMATOLOGY ORDERABLES Aida l Result [facility] CLIA # [id number] [address] [address] [place], [place] [address] * (ABNORMAL) COMPREHENSIVE METABOLIC PANEL (01/18/2024 3:40 AM [facility]) SODIUM 139 136 - 145 mmol/L 01/18/2024 7:54 AM [facility] POTASSIUM 4.6 3.5 - 5.1 mmol/L 01/18/2024 7:54 AM [facility] CHLORIDE 101 98 - 107 mmol/L 01/18/2024 7:54 AM [facility] CO2 28 22 - 29 mmol/L 01/18/2024 7:54 AM [facility] CALCIUM 10.0 8.8 - 10.2 mg/dL 01/18/2024 7:54 AM [facility] BUN 24(H) 8 - 23 mg/dL 01/18/2024 7:54 AM [facility] CREATININE 1.71(H) 0.51 - 0.95 mg/dL 01/18/2024 7:54 AM [facility] GLUCOSE 171(H) 74 - 99 mg/dL 01/18/2024 7:54 AM [facility] TOTAL PROTEIN 6.6 6.4 - 8.3 g/dL 01/18/2024 7:54 AM [facility] ALBUMIN 3.5 3.5 - 5.2 g/dL 01/18/2024 7:54 AM [facility] BILIRUBIN TOTAL 0.3 0.2 - 1.0 mg/dL 01/18/2024 7:54 AM [facility] ALKALINE PHOSPHATASE 84 35 - 104 U/L 01/18/2024 7:54 AM [facility] AST 19 10 - 35 U/L 01/18/2024 7:54 AM [facility] ALT 13 <=35 U/L 01/18/2024 7:54 AM [facility] GFR 33(L) >=60 mL/min/1. 73 sq meter 01/18/2024 7:54 AM [facility] Comment:eGFR calculated with 2020 CKD-EPI equation. Vegetarian diet, extremely high or low muscle mass, and may affect results. Cystatin C with Glomerular Filtration Rate is a suitable alternative for these patients. ANION GAP 10 9 - 20 mmol/L 01/18/2024 7:54 AM [facility] Blood Collection / Unknown 01/18/2024 3:40 AM FOOD EXPEDITOR 01/18/2024 7:09 AM FOOD EXPEDITOR us External Provider [facility] CHEMISTRY ORDERABLES Final Result Performing Organization Address City/State/[facility] Co de Phone Number [facility] CLIA # [id number] [facility] [address] documented in this encounter Visit Diagnoses Not on filedocumented in this encounter Care Teams Pourer Metal Relationship Specialty Start Date End Date Savannah Martinez MD [address], [place] [address] PCP - General Family Practice 08/21/23 documented as of this encounter
--- OUTSIDE RECORDS SUMMARY | 2025-07-24 07:25 | XMS_ITS | Clinical Summary ---
Author Organization [facility] Address [address] [place] [address] Phone Care Team Providers Care Mud Analysis Supervisor Name Role Phone Unavailable Primary Care Provider Unavailabl e Allergies Active Allergy Reactions Criticality Noted Date Comments Codeine Nausea and Vomiting Low 12/07/2018 Medications OTHER Take 5 mg by mouth 2 times daily Provider please include Medication name, dose, route and frequency . Active lisinopril (PRINIVIL) 40 mg tablet Take 40 mg by mouth daily. Active spironolactone (ALDACTONE) 25 mg tablet Take 25 mg by mouth daily. Active amLODIPine-oly zepril (LOTREL) 10-20 mg capsule Take 1 Capsule by mouth daily. Active cholecalciferol (DELTA-D, VITAMIN D3) 400 unit Tablet Take by mouth daily. Active isosorbide mononitrate (IMDUR) 30 mg Extended Release 24 hour tablet Take 30 mg by mouth daily paralegal instructor. Active rosuvastatin (CRESTOR) 5 mg tablet Take 5 mg by mouth daily at bedtime. Active triamterene-hyd roCHLOROthiazid e (MAXZIDE 25) 37.5-25 mg tablet Take 1 Tablet by mouth daily. Active metoprolol tartrate (LOPRESSOR) 100 mg tablet Take 100 mg by mouth 2 times daily. Active insulin glargine (LANTUS) 100 unit/mL injection Inject by subcutaneous injection daily with breakfast. Active PROAIR HFA 90 mcg/actuation inhaler INHALE 2 PUFFS PO Q 4 H PRN FOR BREATHING. 5 8 Active amLODIPine (NORVASC) 5 mg tablet TK 1 T PO BID 2 8 Active ELIQUIS 5 mg tablet TK 1 T PO BID 3 8 Active FLUoxetine (PROzac) 20 mg capsule TK 1 C PO D 0 8 Active nitroglycerin (NITROSTAT) 0.4 mg Tablet, Sublingual TRA 6 8 Active insulin detemir U-100 (LEVEMIR) 100 unit/mL pen syringe Inject 125 Units by subcutaneous injection one time only. Active furosemide (LASIX) 20 mg tablet Take 20 mg by mouth 2 times daily. Active OTHER Provider please include Medication name, dose, route and frequency . Active insulin aspart (NovoLOG) 100 unit/mL injection Inject by subcutaneous injection. 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 Factor V Leiden 01/25/2019 Chronic anticoagulation 01/25/2019 Immunizations Immunization Administration Dates Next Due (PNEUMOVAX 23)(50 YRS UP) PN EUMOCOCCAL POLYSACCHARIDE (PPV23) 0.5 ML, IM 04/24/2003 (TDVAX)(7 YRS UP) TETANUS AN D DIPHTHERIA TOXOIDS, ADSORBED (2 LF OF TETANUS TOXOID AND 2 LF OF DIPHTHERIA TOXOID), 0.5ML (PF), IM 06/06/2003 Influenza Seasonal Unspecified Formulation IM Social History Tobacco Use Types Packs/Day Years Used Date Smoking Tobacco: Former Cigarettes Q uit: 1990 Smokeless Tobacco: Never Tobacco Cessation:Counseling Given: No Alcohol Use Standard Drinks/Week Comments No 0 (1 standard drink = 0.6 oz pur e alcohol) Comments Unknown Sex and Gender Information Value Date Recorded Sex Assigned at Not on file Legal Sex Female 4:30 AM SAFETY INSPECTOR Gender Identity Not on file Sexual Orientation Not on file Last Filed Vital Signs Vital Sign Reading Time Taken Comments Blood Pressure 122/64 02/01/2019 11:15 AM CDT Pulse 64 02/01/2019 11:15 AM CDT Temperature 36.8 C (98.3 F) 12/14/2018 5:00 AM SAFETY INSPECTOR Respiratory Rate 17 12/14/2018 11:00 AM SAFETY INSPECTOR Oxygen Saturation 95% 12/14/2018 5:00 AM SAFETY INSPECTOR Inhaled Oxygen Concentration - - Weight 130.2 kg (287 lb) 02/01/2019 11:15 AM CDT Height 160 cm (5' 3 ) 02/01/2019 11:15 AM CDT Body Mass Index 50.84 02/01/2019 11:15 AM CDT Plan of Treatment Health Maintenance Due Date Last Done Comments BREAST CANCER SCREENING 1997 COLORECTAL SCREENING 2002 Colorectal Cancer Screening 2002 FIT-DNA Q 3 years 2002 FIT/FOBT Q 1 year 2002 Flex Sig/CT Colonography Q 5 years 2002 DTAP/TDAP/TD VACCINES (1 - Tdap) 06/07/2003 06/06/20 03 PNEUMOCOCCAL VACCINE 50+ YEARS (2 of 2 - PCV) 04/20/20 07 04/24/2003 ZOSTER VACCINE (1 of 2) 2007 OSTEOPOROSIS SCREENING 2022 INFLUENZA VACCINE (#1) 2025 11/29/2003 RSV VACCINE (60+ or ) (1 - 1-dose 75+ series) 2032 Insurance MEDICAID [place] Advance Directives For more information, please contact: [phone] Documents on File Type Date Recorded Patient Gift Officer Expl anation Advance Directive Living Will 12/14/2018 5:03 AM Advance Directive Living Will Advance Directive POA 12/14/2018 5:01 AM A dvance Directive POA * Full Code (Latest Code Status on File) Date Activated Date Inactivated Comments 12/13/2018 3:42 PM 12/14/2018 5:13 PM * Full Code Date Activated Date Inactivated Comments 12/13/2018 11:53 AM 12/13/2018 3:42 PM
--- OUTSIDE RECORDS SUMMARY | 2025-07-24 07:25 | XMS_ITS | Encounter Summary ---
Author Organization [facility] Address [address] [place] [address] Care Team Providers Care Tripe Cooker Name Role Phone Savannah Martinez MD Primary Care Provider [phone] Encounter Details Date Type Department Care Team (Late st Contact Info) Description 01/20/2024 Lab Requisition [facility] Laboratory Services [address] [place] [address] [place] [phone] [facility], External Provider [address] [place] [address] Social History Tobacco Use Types Packs/Day Years [...] on file Legal Sex Female 2:41 PM COMPONENT ENGINEER Gender Identity Not on file Sexual Orientation Not on file documented as of this encounter Plan of Treatment Not on file documented as of this encounter Procedures Procedure Name Priority Date/Time Associated Diagnosis Comments CBC WITH DIFFERENTIAL Routine 01/20/2024 3:20 AM COMPONENT ENGINEER COMPREHENSIVE METABOLIC PANEL Routine 01/20/2024 3:20 AM COMPONENT ENGINEER documented in this encounter Results * (ABNORMAL) CBC WITH DIFFERENTIAL (01/20/2024 3:20 AM COMPONENT ENGINEER) Pathologist [facility] WBC 6.5 4.8 - 10.8 K/uL 01/20/2024 7:35 AM [facility] RBC 3.15(L) 4.20 - 5.40 M/uL 01/20/2024 7:35 AM [facility] HEMOGLOBIN 9.1(L) 12.0 - 16.0 g/dL 01/20/2024 7:35 AM [facility] HEMATOCRIT 29.0(L) 36.0 - 46.0 % 01/20/2024 7:35 AM [facility] MCV 92.1 84.0 - 103.0 fL 01/20/2024 7:35 AM [facility] MCH 28.9 27.0 - 34.0 pg 01/20/2024 7:35 AM [facility] MCHC 31.4 30.0 - 35.0 g/dL 01/20/2024 7:35 AM [facility] RDW 17.2(H) 11.0 - 14.5 % 01/20/2024 7:35 AM [facility] RDW-STDEV 57.4(H) 37.0 - 54.0 fL 01/20/2024 7:35 AM [facility] PLATELETS 254 140 - 440 K/uL 01/20/2024 7:35 AM [facility] MPV 10.3 8.9 - 12.8 fL 01/20/2024 7:35 AM [facility] NEUTROPHILS 64 42 - 75 % 01/20/2024 7:35 AM [facility] LYMPHOCYTES 18(L) 24 - 44 % 01/20/2024 7:35 AM [facility] MONOCYTES 11(H) 2 - 10 % 01/20/2024 7:35 AM [facility] EOSINOPHILS 6 0 - 7 % 01/20/2024 7:35 AM [facility] BASOPHILS 1 0 - 1 % 01/20/2024 7:35 AM [facility] IMMATURE GRANULOCYTES 1 0 - 2 % 01/20/2024 7:35 AM [facility] NEUTROPHIL ABSOLUTE 4.14 2.00 - 8.00 K/uL 01/20/2024 7:35 AM [facility] LYMPHOCYTE ABSOLUTE 1.15(L) 1.20 - 4.00 K/uL 01/20/2024 7:35 AM [facility] MONOCYTE ABSOLUTE 0.72(H) 0.10 - 0.60 K/uL 01/20/2024 7:35 AM [facility] EOSINOPHIL ABSOLUTE 0.39 0.00 - 0.70 K/uL 01/20/2024 7:35 AM [facility] BASOPHILS ABSOLUTE 0.08 0.00 - 0.20 K/uL 01/20/2024 7:35 AM [facility] IMMATURE GRANULOCYTES ABSOLUTE 0.04 0.00 - 0.10 K/uL 01/20/2024 7:35 AM [facility] Blood Collection / Unknown 01/20/2024 3:20 AM COMPONENT ENGINEER 01/20/2024 7:18 AM [facility] us External Provider [facility] HEMATOLOGY ORDERABLES Aida l Result [facility] CLIA # [id number] [address] [place] [address] [place], [place] [address] * (ABNORMAL) COMPREHENSIVE METABOLIC PANEL (01/20/2024 3:20 AM [facility]) [facility] Signature SODIUM 139 136 - 145 mmol/L 01/20/2024 8:10 AM [facility] POTASSIUM 5.2(H) 3.5 - 5.1 mmol/L 01/20/2024 8:10 AM [facility] CHLORIDE 102 98 - 107 mmol/L 01/20/2024 8:10 AM [facility] CO2 27 22 - 29 mmol/L 01/20/2024 8:10 AM [facility] CALCIUM 9.9 8.8 - 10.2 mg/dL 01/20/2024 8:10 AM [facility] BUN 30(H) 8 - 23 mg/dL 01/20/2024 8:10 AM [facility] CREATININE 1.89(H) 0.51 - 0.95 mg/dL 01/20/2024 8:10 AM [facility] GLUCOSE 189(H) 74 - 99 mg/dL 01/20/2024 8:10 AM [facility] TOTAL PROTEIN 6.4 6.4 - 8.3 g/dL 01/20/2024 8:10 AM [facility] ALBUMIN 3.5 3.5 - 5.2 g/dL 01/20/2024 8:10 AM [facility] BILIRUBIN TOTAL 0.3 0.2 - 1.0 mg/dL 01/20/2024 8:10 AM [facility] ALKALINE PHOSPHATASE 78 35 - 104 U/L 01/20/2024 8:10 AM [facility] AST 18 10 - 35 U/L 01/20/2024 8:10 AM [facility] ALT 13 <=35 U/L 01/20/2024 8:10 AM [facility] GFR 29(L) >=60 mL/min/1. 73 sq meter 01/20/2024 8:10 AM [facility] Comment:eGFR calculated with 2020 CKD-EPI equation. Vegetarian diet, extremely high or low muscle mass, and may affect results. Cystatin C with Glomerular Filtration Rate is a suitable alternative for these patients. ANION GAP 10 9 - 20 mmol/L 01/20/2024 8:10 AM [facility] Blood Collection / Unknown 01/20/2024 3:20 AM COMPONENT ENGINEER 01/20/2024 7:18 AM COMPONENT ENGINEER External Provider [facility] CHEMISTRY ORDERABLES Final Result Performing Organization Address City/State/[facility] Co de Phone Number [facility] # [id number] [address] [place] [id number] documented in this encounter Visit Diagnoses Not on filedocumented in this encounter Care Teams Tripe Cooker Relationship Specialty Start Date End Date Savannah Martinez MD [address] [place] [address] PCP - General Family Practice 08/21/23 documented as of this encounter
--- OUTSIDE RECORDS SUMMARY | 2025-07-24 07:25 | XMS_ITS | Encounter Summary ---
Author Organization [facility] Address [address] [place] [address] Care Team Providers Care Tack Cleaner Name Role Phone Savannah Martinez MD Primary Care Provider [phone] Encounter Details Date Type Department Care Team (Late st Contact Info) Description 01/23/2024 Lab Requisition [facility] Laboratory Services [address] [place] [address] [place] [address] Joselito Gomes, DO [address] [place] [address] Social History Tobacco Use Types [...] on file Legal Sex Female 2:41 PM STUDENT SUCCESS ADVISOR Gender Identity Not on file Sexual Orientation Not on file documented as of this encounter Plan of Treatment Not on file documented as of this encounter Procedures Procedure Name Priority Date/Time Associated Diagnosis Comments CBC WITH DIFFERENTIAL Routine 01/23/2024 3:50 AM STUDENT SUCCESS ADVISOR BASIC METABOLIC PANEL Routine 01/23/2024 3:50 AM STUDENT SUCCESS ADVISOR documented in this encounter Results * (ABNORMAL) CBC WITH DIFFERENTIAL (01/23/2024 3:50 AM STUDENT SUCCESS ADVISOR) Pathologist [facility] WBC 6.3 4.8 - 10.8 K/uL 01/23/2024 7:37 AM [facility] RBC 3.45(L) 4.20 - 5.40 M/uL 01/23/2024 7:37 AM [facility] HEMOGLOBIN 9.8(L) 12.0 - 16.0 g/dL 01/23/2024 7:37 AM [facility] HEMATOCRIT 31.8(L) 36.0 - 46.0 % 01/23/2024 7:37 AM [facility] MCV 92.2 84.0 - 103.0 fL 01/23/2024 7:37 AM [facility] MCH 28.4 27.0 - 34.0 pg 01/23/2024 7:37 AM [facility] MCHC 30.8 30.0 - 35.0 g/dL 01/23/2024 7:37 AM [facility] RDW 16.3(H) 11.0 - 14.5 % 01/23/2024 7:37 AM [facility] RDW-STDEV 54.9(H) 37.0 - 54.0 fL 01/23/2024 7:37 AM [facility] PLATELETS 245 140 - 440 K/uL 01/23/2024 7:37 AM [facility] MPV 10.7 8.9 - 12.8 fL 01/23/2024 7:37 AM [facility] NEUTROPHILS 62 42 - 75 % 01/23/2024 7:37 AM [facility] LYMPHOCYTES 18(L) 24 - 44 % 01/23/2024 7:37 AM [facility] MONOCYTES 10 2 - 10 % 01/23/2024 7:37 AM [facility] EOSINOPHILS 8(H) 0 - 7 % 01/23/2024 7:37 AM [facility] BASOPHILS 1 0 - 1 % 01/23/2024 7:37 AM [facility] IMMATURE GRANULOCYTES 1 0 - 2 % 01/23/2024 7:37 AM [facility] NEUTROPHIL ABSOLUTE 3.90 2.00 - 8.00 K/uL 01/23/2024 7:37 AM [facility] LYMPHOCYTE ABSOLUTE 1.14(L) 1.20 - 4.00 K/uL 01/23/2024 7:37 AM [facility] MONOCYTE ABSOLUTE 0.62(H) 0.10 - 0.60 K/uL 01/23/2024 7:37 AM [facility] EOSINOPHIL ABSOLUTE 0.48 0.00 - 0.70 K/uL 01/23/2024 7:37 AM [facility] BASOPHILS ABSOLUTE 0.09 0.00 - 0.20 K/uL 01/23/2024 7:37 AM [facility] IMMATURE GRANULOCYTES ABSOLUTE 0.03 0.00 - 0.10 K/uL 01/23/2024 7:37 AM [facility] Blood Collection / Unknown 01/23/2024 3:50 AM STUDENT SUCCESS ADVISOR 01/23/2024 7:28 AM [facility] us Joselito Gomes DO HEMATOLOGY ORDERABLES Final Result [facility] CLIA # [id number] [address] [place] [address] [place] [address] * (ABNORMAL) BASIC METABOLIC PANEL (01/23/2024 3:50 AM STUDENT SUCCESS ADVISOR) [facility] SODIUM 140 136 - 145 mmol/L 01/23/2024 8:12 AM [facility] POTASSIUM 5.1 3.5 - 5.1 mmol/L 01/23/2024 8:12 AM [facility] CHLORIDE 102 98 - 107 mmol/L 01/23/2024 8:12 AM [facility] CO2 25 22 - 29 mmol/L 01/23/2024 8:12 AM [facility] CALCIUM 10.0 8.8 - 10.2 mg/dL 01/23/2024 8:12 AM [facility] BUN 42(H) 8 - 23 mg/dL 01/23/2024 8:12 AM [facility] CREATININE 2.24(H) 0.51 - 0.95 mg/dL 01/23/2024 8:12 AM [facility] GLUCOSE 166(H) 74 - 99 mg/dL 01/23/2024 8:12 AM [facility] GFR 24(L) >=60 mL/min/1. 73 sq meter 01/23/2024 8:12 AM [facility] Comment:eGFR calculated with 2020 CKD-EPI equation. Vegetarian diet, extremely high or low muscle mass, and may affect results. Cystatin C with Glomerular Filtration Rate is a suitable alternative for these patients. ANION GAP 13 9 - 20 mmol/L 01/23/2024 8:12 AM [facility] Blood Collection / Unknown 01/23/2024 3:50 AM STUDENT SUCCESS ADVISOR 01/23/2024 7:28 AM STUDENT SUCCESS ADVISOR Joselito Gomes DO CHEMISTRY ORDERABLES Final R esult [facility] CLIA # [id number] [facility] [id number] documented in this encounter Visit Diagnoses Not on filedocumented in this encounter Care Teams Tack Cleaner Relationship Specialty Start Date End Date Savannah Martinez MD [address] [place] [address] PCP - General Family Practice 08/21/23 documented as of this encounter
--- OUTSIDE RECORDS SUMMARY | 2025-07-24 07:26 | XMS_ITS | Encounter Summary ---
Author Organization [email or web address] [facility] Address [address] [place] [address] Care Team Providers Care Satellite Communications Operator Name Role Phone Unavailable Primary Care Provider Unavailabl e Encounter Details Date Type Department Care Team (Latest Contact Info) Description 04/24/2003 Outpatient Historical [facility] Fidel Guardado Jr., MD [address] [place] [phone] DIABETES UNCOMPL ADULT-TYPE II (CMS/HCC) (Primary Dx); HYPERTENSION NOS; Pure hypercholesterolem; VACCINE FOR STREP PNEUMONIAE Social History Tobacco Use Types Packs/Day Years Used Date Smoking Tobacco: Never Assessed Comments Unknown Sex and Gender Information Value Date Recorded Sex Assigned at Not on file Legal Sex Female 4:30 AM BOOM MASTER Gender Identity Not on file Sexual Orientation Not on file documented as of this encounter Plan of Treatment Not on file documented as of this encounter Visit Diagnoses Diagnosis Type II or unspecified type diabetes mellitus without mention of complication, not stated as uncontrolled- Primary Unspecified essential hypertension Pure hypercholesterolem Pure hypercholesterolemia Need for prophylactic vaccination against Streptococcus pneumoniae (pneumococcus) Need for prophylactic vaccination against streptococcus pneumoniae (pneumococcus) documented in this encounter
--- OUTSIDE RECORDS SUMMARY | 2025-07-24 07:26 | XMS_ITS | Encounter Summary ---
Author Organization [facility] Address [address] [place] [address] Care Team Providers Care Adjunct Writing Instructor Name Role Phone Savannah Martinez MD Primary Care Provider [phone] Encounter Details Date Type Department Care Team (Late st Contact Info) Description 01/27/2024 Lab Requisition [facility] Laboratory Services [address] [place] [address] [place] [phone] [facility], External Provider [address] [place] [address] Social History Tobacco Use Types Packs/Day Years [...] on file Legal Sex Female 2:41 PM SUPERINTENDENT DISTRIBUTION Gender Identity Not on file Sexual Orientation Not on file documented as of this encounter Plan of Treatment Not on file documented as of this encounter Procedures Procedure Name Priority Date/Time Associated Diagnosis Comments BASIC METABOLIC PANEL Routine 01/27/2024 4:25 AM SUPERINTENDENT DISTRIBUTION documented in this encounter Results * (ABNORMAL) BASIC METABOLIC PANEL (01/27/2024 4:25 AM SUPERINTENDENT DISTRIBUTION) SODIUM 140 136 - 145 mmol/L 01/27/2024 6:49 AM [facility] POTASSIUM 4.7 3.5 - 5.1 mmol/L 01/27/2024 6:49 AM [facility] CHLORIDE 104 98 - 107 mmol/L 01/27/2024 6:49 AM [facility] CO2 22 22 - 29 mmol/L 01/27/2024 6:49 AM [facility] CALCIUM 10.0 8.8 - 10.2 mg/dL 01/27/2024 6:49 AM [facility] BUN 40(H) 8 - 23 mg/dL 01/27/2024 6:49 AM [facility] CREATININE 2.09(H) 0.51 - 0.95 mg/dL 01/27/2024 6:49 AM [facility] GLUCOSE 151(H) 74 - 99 mg/dL 01/27/2024 6:49 AM [facility] GFR 26(L) >=60 mL/min/1. 73 sq meter 01/27/2024 6:49 AM [facility] Comment:eGFR calculated with 2020 CKD-EPI equation. Vegetarian diet, extremely high or low muscle mass, and may affect results. Cystatin C with Glomerular Filtration Rate is a suitable alternative for these patients. ANION GAP 14 9 - 20 mmol/L 01/27/2024 6:49 AM [facility] Blood Collection / Unknown 01/27/2024 4:25 AM SUPERINTENDENT DISTRIBUTION 01/27/2024 6:31 AM SUPERINTENDENT DISTRIBUTION us External Provider [facility] CHEMISTRY ORDERABLES Final Result [facility] CLIA # [id number] [address] [facility] [place] [address] documented in this encounter Visit Diagnoses Not on filedocumented in this encounter Care Teams Adjunct Writing Instructor Relationship Specialty Start Date End Date Savannah Martinez MD [address], [place] [address] PCP - General Family Practice 08/21/23 documented as of this encounter
--- OUTSIDE RECORDS SUMMARY | 2025-07-24 07:26 | XMS_ITS | Clinical Summary ---
Author Organization [facility] Address [address] [place] [address] Attn: Epic Prelude ADT [place] [id number] Care Team Providers Care Field Administrator Name Role Phone Savannah Martinez MD Primary Care Provider [phone] Allergies Active Allergy Reactions Criticality Noted Date Comments Amlodipine Unknown 07/21/2022 I lost my eyesight for 2 days Bacitracin Nausea and Vomiting Low 06/10/2020 Codeine Nausea and Vomiting Low 12/07/2018 Hydrocodone Unknown 06/30/2022 Latex, Natural Rubber Unknown 06/10/2020 Morphine Itching Low 07/22/2022 Neomycin Rash Low 06/10/2020 Oxycodone Unknown 07/22/2022 Polymyxin B Rash Low 06/10/2020 Spironolactone Other (See Comments) High 07/22/2022 Sulfa (Sulfonamide Antibiotics) Nausea and Vomiting Low 06/10/2020 Trimethoprim Unknown 07/22/2022 Medications rosuvastatin (CRESTOR) 5 mg tablet Take 5 mg by mouth daily at bedtime. 9 Active OTHER Take 5 mg by mouth 2 times daily Provider please include Medication name, dose, route and frequency . 9 Active cholecalciferol (VITAMIN D3) 400 unit Tablet Take by mouth daily. 9 Active metoprolol tartrate (LOPRESSOR) 100 mg tablet Take 25 mg by mouth 2 times daily. 9 Active albuterol sulfate (ProAir HFA) 90 mcg/Actuation inhaler INHALE 2 PUFFS PO Q 4 H PRN FOR BREATHING. 5 8 Active amLODIPine (NORVASC) 5 mg tablet TK 1 T PO BID 2 8 Active FLUoxetine (PROzac) 20 mg capsule TK 1 C PO D 0 8 Active nitroglycerin (NITROSTAT) 0.4 mg Tablet, Sublingual TRA 6 8 Active insulin aspart (NovoLOG) 100 unit/mL injection Inject by subcutaneous injection. 9 Active OTHER Provider please include Medication name, dose, route and frequency . 9 Active benzonatate (TESSALON) 100 mg capsule Take 100 mg by mouth 3 times daily as needed for Cough. Active budesonide (PULMICORT RESPULE) 0.5 mg/2 mL Suspension for Nebulization Take 2 mL by inhalation 2 times daily. Active dicyclomine (BENTYL) 20 mg tablet Take 20 mg by mouth 4 times daily before meals and at bedtime. Active hydrALAZINE (APRESOLINE) 50 mg tablet Take 50 mg by mouth 3 times daily. Active hydroxychloroqui ne (PLAQUENIL) 200 mg tablet Take 200 mg by mouth 2 times daily. Active isosorbide mononitrate (IMDUR) 60 mg Extended Release 24 hour tablet Take 60 mg by mouth daily. 3 Active Magnesium Oxide 420 mg Tablet Take 400 mg by mouth daily. Active metoclopramide HCl (REGLAN) 5 mg/5 mL solution Take 5 mg by mouth 4 times daily. Active oxyCODONE (ROXICODONE) 5 mg tablet Take 5 mg by mouth every 6 hours as needed for Pain. Active ondansetron (ZOFRAN) 4 mg/5 mL Solution Take by mouth every 8 hours as needed. Active insulin degludec (Tresiba FlexTouch U-100) 100 unit/mL pen syringe Inject 80 Units by subcutaneous injection daily with breakfast. Active potassium chloride (KLOR-CON) 10 mEq Extended Release tablet Take 30 mEq by mouth daily with breakfast. Active sacubitriL-valsa rtan (Entresto) 24-26 mg Tablet Take 1 Tablet by mouth daily. Active pantoprazole (Protonix) 40 mg Tablet, Delayed Release (E.C.) Take 1 Tablet (40 mg) by mouth 2 times daily. 120 Tablet 1 3 Active bumetanide (BUMEX) 2 mg tablet Take 1 Tablet (2 mg) by mouth 2 times daily. 60 Tablet 3 Active ferrous sulfate 325 mg (65 mg iron) tablet Take 1 Tablet (325 mg) by mouth daily. 30 Tablet 3 Active Active Problems Problem Noted Date Diagnosed Date Congestive heart failure 09/07/2023 Erosive gastropathy 09/06/2023 Erythema of gastric antrum 09/06/2023 Internal hemorrhoids 09/06/2023 Diverticulosis 09/06/2023 Acute blood loss anemia 09/02/2023 Iron deficiency anemia 09/02/2023 Gastroparesis 09/02/2023 High risk medication use 09/01/2023 Pneumonia of both lower lobes due to infectious organism 08/31/2023 Acute panniculitis 08/31/2023 Seizure 08/28/2023 Moderate protein malnutrition 08/24/2023 Chronic pain syndrome 08/21/2023 Insulin dependent type 2 diabetes mellitus 08/21 LIZ (obstructive sleep apnea) 08/21/2023 Centrilobular emphysema 08/21/2023 Normocytic anemia 08/21/2023 Prolonged Q-T interval on ECG 08/21/2023 History of atrial flutter 08/21/2023 Dyspnea 08/20/2023 Acute renal failure superimp osed on stage 4 chronic kidney disease 08/20/2023 Hyperkalemia 08/20/2023 Factor V Leiden 01/25/2019 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 Chronic anticoagulation 01/25/2019 Immunizations Immunization Administration [...] on file 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 Gender Identity Not on file Sexual Orientation Not on file Last Filed Vital Signs Vital Sign Reading Time Taken Comments Blood Pressure 161/65 09/07/2023 3:47 PM CDT Pulse 79 09/07/2023 3:47 PM CDT Temperature 37 C (98.6 F) 09/07/2023 12:26 PM CDT Respiratory Rate 22 09/07/2023 3:47 PM CDT Oxygen Saturation 95% 09/07/2023 3:47 PM CDT Inhaled Oxygen Concentration - - Weight 157.3 kg (346 lb 12.5 oz) 09/01/2023 5:23 AM CDT Height 160 cm (5' 3 ) 08/20/2023 8:10 PM CDT Body Mass Index 61.43 08/20/2023 8:10 PM CDT Plan of Treatment Health Maintenance Due Date Last Done Comments DIABETES ANNUAL FOOT EXAM 1975 DIABETES ANNUAL RETINAL EXAM 1975 DIABETES MICROALBUMIN ANNUAL SCREEN 1975 ZOSTER VACCINE (1 of 2) 1976 BREAST CANCER SCREENING 1997 FIT-DNA Q 3 years 2002 FIT/FOBT Q 1 year 2002 Flex Sig/CT Colonography Q 5 years 2002 DTAP/TDAP/TD VACCINES (1 - Tdap) 06/07/2003 06/06/20 03 PNEUMOCOCCAL VACCINE 50+ YEA RS (2 of 2 - PCV) 04/24/2004 04/24/2003 RSV VACCINE (60+ or ) (1 - Risk 60-74 years 1-dose series) 2017 LDL CHOLESTEROL ANNUAL 12/05/2019 12/05/2018 OSTEOPOROSIS SCREENING 2022 DIABETES HBA1C Q 6 MONTHS 09/01/2023 03/02/2023, COLORECTAL SCREENING 09/05/2024 09/05/2023, 09/05/20 23 Colorectal Cancer Screening 09/05/2024 INFLUENZA VACCINE (#1) 2025 , 01/28/2020, 11/29/2003 Procedures Procedure Name Priority Date/Time Associated Diagnosis Comments COLONOSCOPY REPORT 09/05/2023 9: 33 AM CDT LIPID PANEL Routine 12/05/2018 HEMOGLOBIN A1C Routine 12/05/2018 from Last 3 Months or Most Recently Relevant to Health Maintenance Results * COLONOSCOPY REPORT (09/05/2023 9:33 AM CDT) Narrative Procedure Note Jerome Dawkins MD - 09/05/2023 9:33 AM CDT [facility] GI Patient Name: Jennifer Novak Procedure Date: 09/05/2023 Date of : 1955 Admit Type: Inpatient Age: 68 Attending MD: Jerome Dawkins MD, Procedure: Colonoscopy Indications: Iron deficiency anemia Providers: Jerome Dawkins MD Referring MD: Medicines: Monitored Anesthesia Care Complications: No immediate complications. Procedure: Pre-Anesthesia Assessment: - [place] Protocol: - Pre-procedure Verification: Prior to the procedure, the patient's identity was verified by full name and date of . The patient's identity was verified on all pertinent medical records, including History and Physical. Also prior to the procedure, a History and Physical was performed, and patient medications, allergies and sensitivities were reviewed. The patient's tolerance of previous anesthesia was reviewed. The patient is competent. The risks and benefits of the procedure and the sedation options and risks were discussed with the patient. All questions were answered and informed consent was obtained. - Marking: The endoscopic procedure was visually marked on a patient wrist band delineating the patient name, proposed procedure and endoscopist's initials. - Time-Out: Prior to the start of the procedure, the patient's identification, proposed procedure, accurate signed consent, correctly labeled images and records, and need for prophylactic antibiotics were verified by the physician, the nurse, the cutlery grinder and the prepress technician in the endoscopy suite. - Prior to the procedure, a History and Physical was performed, and patient medications, allergies and sensitivities were reviewed. The patient's tolerance of previous anesthesia was reviewed. - The risks and benefits of the procedure and the sedation options and risks were discussed with the patient. All questions were answered and informed consent was obtained. - ASA Grade Assessment: IV - A patient with severe systemic disease that is a constant threat to life. After I obtained informed consent, the scope was passed under direct vision. Throughout the procedure, the patient's blood pressure, pulse, and oxygen saturations were monitored continuously. The Colonoscope was introduced through the anus and advanced to the cecum, identified by appendiceal orifice and ileocecal valve. The colonoscopy was performed without difficulty. The patient tolerated the procedure well. The quality of the bowel preparation was not adequate to identify polyps greater than 5 mm in size. The ileocecal valve, appendiceal orifice, and rectum were photographed. Estimated Blood Loss: Estimated blood loss: none. Findings: The perianal and digital rectal examinations were normal. Multiple large-mouthed and small-mouthed diverticula were found in the left colon. Non-bleeding internal hemorrhoids were found during retroflexion. The hemorrhoids were small. Impression: - Preparation of the colon was inadequate. - Diverticulosis in the left colon. - Non-bleeding internal hemorrhoids. - No specimens collected. Recommendation: - Patient has a contact number available for emergencies. The signs and symptoms of potential delayed complications were discussed with the patient. - Please call to schedule a follow up visit with gastroenterology clinic - [facility]. - Resume previous diet. - Continue present medications. - Repeat colonoscopy in 1 year because the bowel preparation was suboptimal - No evidence of active bleeding noted on colonoscopy. - We will be signing off on this patient, please contact GI team if further questions or if anemia persists for evaluation of video capsule evaluation. Jerome Dawkins MD 09/05/2023 9:33:51 AM This report has been signed electronically. Number of Addenda: 0 Note Initiated On: 09/05/2023 8:10 AM Scope Withdrawal Time 0 hours 6 minutes 32 seconds Scope In: 9:06:28 AM Scope Out: 9:23:26 AM [facility] [place], [place] Jerome Dawkins MD GI PROCEDURE ORDERABLES Aida l Result * HEMOGLOBIN A1C (12/05/2018) ABSTRACTED HGB A1C 9.2 EXTERNAL LAB HEMOGLOBIN A1C ^ 4.7 - 6.4 % EXTERNAL LAB HEMOGLOBIN A1C EXTERNAL LAB GLUCOSE, MEAN BLOOD EXTERNAL LAB Blood 12/05/2018 Narrative EXTERNAL LAB - 12/05/2018 This order was created through External Result Entry Lorenzo Muller NP CHEMISTRY ORDERABLES Final Result Performing Organization Address City/[facility]/ZIP Co de Phone Number EXTERNAL LAB * LIPID PANEL (12/05/2018) ABSTRACTED CHOLESTEROL 162 EXTERNAL LAB ABSTRACTED TRIGLYCERIDE 177 EXTERNAL LAB ABSTRACTED HDL 55 EXTERNAL LAB ABSTRACTED LDL CALCULATED 72 EXTERNAL LAB CHOLESTEROL ^ 200 mg/dL EXTERNAL LAB TRIGLYCERIDE ^ 150 mg/dL EXTERNAL LAB HDL ^ 40 - 59 mg/dL EXTERNAL LAB LDL CALCULATED ^ 100 mg/dL EXTERNAL LAB Blood 12/05/2018 Narrative EXTERNAL LAB - 12/05/2018 This order was created through External Result Entry Lorenzo Muller NP CHEMISTRY ORDERABLES Final Result EXTERNAL LAB from Last 3 Months or Most Recently Relevant to Health Maintenance Insurance MEDICAID [place] [facility] DUAL COMPLETE PPO DSNP [id number] RX [employer] RX Member Subscriber Plan / Payer (Ef fective 2022-Present) Name:Jennifer Novak Relation to Subscriber:Self Name:Jennifer Novak Payer ID:Not on file Group ID:[id number] Type:RX Medicare Part D Address: [place] Advance Directives For more information, please contact: [phone] Documents on File Type Date Recorded Patient 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
--- OUTSIDE RECORDS SUMMARY | 2025-07-24 07:26 | XMS_ITS | Clinical Summary ---
Author Organization [facility] Facility Address [address] [address] Care Team Providers Care Animal Care Giver Name Role Phone Coleman Padgett MD Primary Care Provider [phone] Allergies Active Allergy Reactions Criticality Noted Date Comments Amlodipine 07/21/2022 I lost my eyesight for 2 days Bacitracin Nausea 06/10/2020 Codeine Nausea And Vomiting 12/07/2018 Hydrocodone 06/30/2022 Latex 06/10/2020 Neomycin Rash Low 06/10/2020 Polymyxin B Rash Low 06/10/2020 Sulfa Antibiotics Nausea 06/10/2020 Medications albuterol HFA (PROVENTIL HFA;VENTOLIN HFA) 108 (90 Base) MCG/ACT inhaler 8 Active nitroglycerin (NITROSTAT) 0.4 MG SL tablet TRA 8 Active FLUoxetine (PROzac) 20 MG capsule Take 20 mg by mouth in the morning and 20 mg in the evening. Take 40 mg po every morning and 20 mg po every p.m.. Active acetaminophen (TYLENOL) 325 MG tablet 650 mg by Per G Tube route every 6 (six) hours if needed 4 Active pantoprazole (PROTONIX) 40 MG EC tablet Take 40 mg by mouth 1 (one) time each day before breakfast 3 Active magnesium oxide 400 (240 Mg) MG tablet Take 1 tablet by mouth 1 (one) time each day 4 Active Insulin Glargine-yfgn 100 UNIT/ML solution Inject under the skin daily 4 Active Cholecalcifero l (D3 2000 PO) Take 1 capsule by mouth 1 (one) time each day Active cyancobalamine (VITAMIN B-12) 500 MCG tablet Take 500 mcg by mouth 1 (one) time each day Active Tresiba FlexTouch 200 UNIT/ML injection Inject 48 Units under the skin 1 (one) time each day 4 Active leflunomide (ARAVA) 10 MG tablet Take 10 mg by mouth 1 (one) time each day Active senna-docusate (PERICOLACE) 8.6-50 MG per tablet Take 1 tablet by mouth in the morning and 1 tablet in the evening. Active hydrALAZINE 25 MG tablet Take 25 mg by mouth in the morning and 25 mg in the evening. Active metOLazone 2.5 MG tablet Take 1 tablet (2.5 mg total) by mouth if needed (for sob) 15 tablet 2 5 Active torsemide (DEMADEX) 100 MG tabletIndicati ons:Chronic diastolic heart failure (HCC) Take 1 tablet (100 mg total) by mouth 1 (one) time each day 90 tablet 1 5 09/26/20 25 Active torsemide (DEMADEX) 100 MG tabletIndicati ons:Chronic diastolic heart failure (HCC) Take 1 tablet (100 mg total) by mouth 1 (one) time each day 90 tablet 3 4 06/28/20 25 Discontinue d(Reorder (does not appear on AVS)) potassium chloride 10 MEQ CR tablet Take 10 mEq by mouth in the morning and 10 mEq in the evening. 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 Chronic diastolic heart failure 09/21/2023 Internal hemorrhoids 09/06/2023 Iron deficiency anemia 09/02/2023 Gastroparesis 09/02/2023 Taking high risk medication 09/01/2023 Moderate protein energy malnutrition 08/24/2023 Obstructive sleep apnea syndrome 08/21/2023 Insulin treated type 2 diabetes mellitus 023 History of atrial flutter 08/21/2023 [id number] renal failure 07/21/2022 Factor V Leiden mutation 01/25/2019 Long-term current use of anticoagulant 9 Type 2 diabetes mellitus with renal complication s Monoclonal gammopathy Resolved Problems Problem Noted Date Diagnosed Date Resolved Date Stage 3a chronic kidney disease 07/21/2022 12/23/2024 Stage 3b chronic kidney disease 12/23/2024 Essential hypertension 07/21 Encounters Date Type Department Care Team Description 07/04/2025 Telephone [facility] [facility], [facility] [address] [place] [phone] Emily Mayorga MD 06/28/2025 Documentation Only [facility], [facility] [address] [facility] [address] [place] [phone] Madelin Crowley MA 04/23/2025 11:00 AM CDT [facility], [address] [phone] Leticia Ayala, BELEN 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 (HCC) (Primary Dx); Severe obesity (HCC); Obstructive sleep apnea syndrome; Monoclonal gammopathy; Chronic kidney disease stage 4 (HCC); Chronic diastolic heart failure (HCC); Iron deficiency anemia, not otherwise specified; Insulin treated type 2 diabetes mellitus (HCC) 04/23/2025 [facility]phone [facility] [employer] [facility] [address] [address] Emily Mayorga MD from Last 3 Months Immunizations Immunization Administration Dates Next Due Influenza TIV (IM) 11/29/2003 Pneumococcal Polysaccharide 04/24/2003 Td 06/06/2003 Family History Medical History Relation Comments Kidney disease Father Diabetes Mother Hypertension Mother Hypertension Sibling Relation Status Comments Father Mother Sibling Social History Tobacco Use Types Packs/Day Years Used Date Smoking Tobacco: Former Cigarettes Q uit: 1991 Smokeless Tobacco: Never Tobacco Cessation:Counseling Given: Not Answered Alcohol Use Standard Drinks/Week Comments Not Currently 0 (1 standard drink = 0.6 oz pur e alcohol) Comments No Sex and Gender Information Value Date Recorded Sex Assigned at Not on file Legal Sex Female 1:19 PM EDT Gender Identity Not on file Sexual Orientation Not on file Last Filed Vital Signs Vital Sign Reading Time Taken Comments Blood Pressure 148/72 04/23/2025 11:09 AM CDT Pulse 80 04/23/2025 11:09 AM CDT Temperature 36.4 C (97.5 F) 02/05/2021 10:55 AM CDT Respiratory Rate - - Oxygen Saturation 98% 08/22/2024 11:21 AM CDT Inhaled Oxygen Concentration - - Weight 120 kg (265 lb 6.4 oz) 04/23/2025 11:09 A M CDT Height 160 cm (5' 3 ) 04/23/2025 11:09 AM CDT Body Mass Index 47.01 04/23/2025 11:09 AM CDT Plan of Treatment Upcoming Encounters Date Type Department Care Team (Late st Contact Info) Description 08/27/2025 11:00 AM CDT Office Visit [facility], [facility] [address] [place] [address] Leticia Ayala NP [address] [facility] [address] [place] [address] Health Maintenance Due Date Last Done Comments Breast Cancer Screening 1955 Pneumococcal Vaccine: 50+ Years (2 of 2 - PCV) 04/24/2004 04/24/2003 Colorectal Cancer Screening: Annual FOBT 2006 Colorectal Cancer Screening: Colonoscopy 2006 Colorectal Cancer Screening: Sigmoidoscopy 2006 Diabetes: Ophthalmology Exam 05/12/2020 Diabetes: Pedal Pulse Checked 05/12/2020 Diabetes: Sensory Foot Exam 05/12/2020 Diabetes: Visual Foot Exam 05/12/2020 Diabetes: Hemoglobin A1C 05/08/2024 024, 03/02/2023, 05/01/2020 Influenza Vaccine (#1) 2025 11/29/2003 Pneumococcal Vaccine: Peds ( 0 to 5 Years) and At-Risk Patients (6 to 49 Years) Discontinued 04/24/2003 Hepatitis B Vaccine Aged Out No longe r eligible based on patient's age to complete this topic Procedures Procedure Name Priority Date/Time Associated Diagnosis Comments HEMOGLOBIN A1C (EXTERNAL RESULT ENTRY) Routine 02/06/2024 2:20 PM CDT from Last 3 Months or Most Recently Relevant to Health Maintenance Results * Hemoglobin A1C (02/06/2024 2:20 PM CDT) Hemoglobin A1C 5.4 Blood specimen (specimen) Venous blood / Unknown 02/06/2024 2:20 PM CDT Lorenzo Muller [facility] BLOOD ORDERABLES Final Result from Last 3 Months or Most Recently Relevant to Health Maintenance Insurance Medicaid [place] ([id number]) Dual Complete Choice [place] Care Teams Animal Care Giver Relationship Specialty Start Date End Date Coleman Padgett MD [facility] [place] [id number] PCP - General Internal Medicine 12/24/24
--- OUTSIDE RECORDS SUMMARY | 2025-07-24 07:26 | XMS_ITS | Encounter Summary ---
Author Organization [facility] Address [address] [place] [address] Care Team Providers Care Advertising Sales Consultant Name Role Phone Unavailable Primary Care Provider Unavailabl e Encounter Details Date Type Department Care Team (Late st Contact Info) Description 04/24/2003 Outpatient Historical [facility] Fidel Guardado Jr., MD [address] [place] [address] TRUNK INJURY NOS (Primary Dx) Social History Tobacco Use Types Packs/Day Years Used Date Smoking Tobacco: Never Assessed Comments Unknown Sex and Gender Information Value Date Recorded Sex Assigned at Not on file 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
--- OUTSIDE RECORDS SUMMARY | 2025-07-24 07:26 | XMS_ITS | Encounter Summary ---
Author Organization [employer] [facility] Address [address] [place] [address] Care Team Providers Care Ear Mold Laboratory Technician Name Role Phone Unavailable Primary Care Provider Unavailabl e Encounter Details Date Type Department Care Team (Latest Contact Info) Description 11/08/2002 Outpatient Historical [facility] Fidel Guadrado Jr., MD [address] [place] [phone] GENITAL WARTS NOS (Primary Dx); DIABETES UNCOMPL ADULT-TYPE II (CMS/HCC); PANIC DISORDER; DERMATOPHYTOSIS OF FOOT Social History Tobacco Use Types Packs/Day Years Used Date Smoking Tobacco: Never Assessed Comments Unknown Sex and Gender Information Value Date Recorded Sex Assigned at Not on file 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
--- OUTSIDE RECORDS SUMMARY | 2025-07-24 07:26 | XMS_ITS | Encounter Summary ---
Author Organization [facility] Address [address] [place] [address] Care Team Providers Care Wine Bottle Inspector Name Role Phone Unavailable Primary Care Provider Unavailabl e Encounter Details Date Type Department Care Team (Latest Contact Info) Description 08/17/2002 Outpatient Historical [facility] Fidel Guardado Jr., MD [address] [place] [phone] DIABETES UNCOMPL ADULT-TYPE II (CMS/HCC) (Primary Dx); Lateral epicondylitis; PANIC DISORDER Social History Tobacco Use Types Packs/Day Years Used Date Smoking Tobacco: Never Assessed Comments Unknown Sex and Gender Information Value Date Recorded Sex Assigned at Not on file 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
--- OUTSIDE RECORDS SUMMARY | 2025-07-24 07:27 | XMS_ITS | Encounter Summary ---
Author Organization [facility] Address [address] [place] [address] Care Team Providers Care Choir Leader Name Role Phone Unavailable Primary Care Provider Unavailabl e Encounter Details Date Type Department Care Team (Latest Contact Info) Description 03/23/2002 Outpatient Historical [facility] Fidel Guardado Jr., MD [address] [place] [phone] CHEST PAIN NOS (Primary Dx); DIABETES UNCOMPL ADULT-TYPE II (CMS/HCC); HYPERTENSION NOS; CARDIAC DYSRHYTHMIA NOS Social History Tobacco Use Types Packs/Day Years Used Date Smoking Tobacco: Never Assessed Comments Unknown Sex and Gender Information Value Date Recorded Sex Assigned at Not on file 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
--- OUTSIDE RECORDS SUMMARY | 2025-07-24 07:27 | XMS_ITS | Encounter Summary ---
Author Organization [facility] Address [address] [facility] Attn: Epic Prelude [place] [id number] Care Team Providers Care Refrigerating Engineer Name Role Phone Unavailable Primary Care Provider Unavailabl e Encounter Details Date Type Department Care Team (Late st Contact Info) Description 03/23/2002 Outpatient Historical Geo Tong, Fidel Medina MD [address] [place] [address] Social History Tobacco Use Types Packs/Day Years Used Date Smoking Tobacco: Never Assessed Comments Unknown Sex and Gender Information Value Date Recorded Sex Assigned at Not on file 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
--- OUTSIDE RECORDS SUMMARY | 2025-07-24 07:27 | XMS_ITS | Encounter Summary ---
Author Organization [employer] [facility] Address [address] [place] [address] Care Team Providers Care Grinder Operator Automatic Name Role Phone Unavailable Primary Care Provider Unavailabl e Encounter Details Date Type Department Care Team (Latest Contact Info) Description 07/19/2003 Outpatient Historical [facility] Fidel Guardado Jr., MD [address] [place] [phone] DIABETES UNCOMPL ADULT-TYPE II (CMS/HCC) (Primary Dx); HYPERTENSION NOS; OBESITY NOS; DEPRESSIVE DISORDER NEC Social History Tobacco Use Types Packs/Day Years Used Date Smoking Tobacco: Never Assessed Comments Unknown Sex and Gender Information Value Date Recorded Sex Assigned at Not on file 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
--- OUTSIDE RECORDS SUMMARY | 2025-07-24 07:27 | XMS_ITS | Encounter Summary ---
Author Organization [employer] [facility] Address [address] [place] [address] Care Team Providers Care Analyzer Sales Name Role Phone Unavailable Primary Care Provider Unavailabl e Encounter Details Date Type Department Care Team (Latest Contact Info) Description 06/06/2003 Outpatient Historical [facility] Fidel Guardado Jr., MD [address] [place] [phone] DIABETES UNCOMPL ADULT-TYPE II (CMS/HCC) (Primary Dx); Pure hypercholesterolem; CARDIAC DYSRHYTHMIA NOS; VACCINE FOR TETANUS + DIPHTHERIA Social History Tobacco Use Types Packs/Day Years Used Date Smoking Tobacco: Never Assessed Comments Unknown Sex and Gender Information Value Date Recorded Sex Assigned at Not on file 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
--- OUTSIDE RECORDS SUMMARY | 2025-07-24 07:27 | XMS_ITS | Encounter Summary ---
Author Organization [employer] [facility] Address [address] [place] [address] Care Team Providers Care Political Cartoonist Name Role Phone Unavailable Primary Care Provider Unavailabl e Encounter Details Date Type Department Care Team (Latest Contact Info) Description 04/19/2002 Outpatient Historical [facility] Fidel Guardado Jr., MD [address] [place] [phone] DIABETES UNCOMPL ADULT-TYPE II (CMS/HCC) (Primary Dx); HYPERTENSION NOS; POSTMENOPAUSAL HORMONAL REPLACMT Social History Tobacco Use Types Packs/Day Years Used Date Smoking Tobacco: Never Assessed Comments Unknown Sex and Gender Information Value Date Recorded Sex Assigned at Not on file 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
--- OUTSIDE RECORDS SUMMARY | 2025-07-24 07:27 | XMS_ITS | Encounter Summary ---
Author Organization [employer] Address [address] [place] [address] Care Team Providers Care Instruction Dean Name Role Phone Unavailable Primary Care Provider Unavailabl e Encounter Details Date Type Department Care Team (Latest Contact Info) Description 05/14/2002 Outpatient Historical [facility] Fidel Guardado Jr., MD [address] [place] [phone] DIABETES UNCOMPL ADULT-TYPE II (CMS/[facility]) (Primary Dx); HYPERTENSION NOS; OSTEOARTHROS NOS-UNSPEC; ESOPHAGEAL REFLUX Social History Tobacco Use Types Packs/Day Years Used Date Smoking Tobacco: Never Assessed Comments Unknown Sex and Gender Information Value Date Recorded Sex Assigned at Not on file Legal Sex Female 4:30 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
--- OUTSIDE RECORDS SUMMARY | 2025-07-24 07:28 | XMS_ITS | Encounter Summary ---
Author Organization [place] [facility] Address [address] [place] [address] Care Team Providers Care Conversion Worker Name Role Phone Unavailable Primary Care Provider Unavailabl e Encounter Details Date Type Department Care Team (Latest Contact Info) Description 07/12/2001 Outpatient Historical [facility] Anne, Jake Alcantar MD [address] [phone] Abdominal pain, unspecified site (Primary Dx) Social History Tobacco Use Types Packs/Day Years Used Date Smoking Tobacco: Never Assessed Comments Unknown Sex and Gender Information Value Date Recorded Sex Assigned at Not on file Legal Sex Female 4:30 AM SUBSYSTEMS ENGINEER Gender Identity Not on file Sexual Orientation Not on file documented as of this encounter Plan of Treatment Not on file documented as of this encounter Visit Diagnoses Diagnosis Abdominal pain, unspecified site- Primary documented in this encounter
--- OUTSIDE RECORDS SUMMARY | 2025-07-24 07:28 | XMS_ITS | Encounter Summary ---
Author Organization [employer] [facility] Address [address] [place] [address] Care Team Providers Care Research And Evaluation Analyst Name Role Phone Unavailable Primary Care Provider Unavailabl e Encounter Details Date Type Department Care Team (Latest Contact Info) Description 03/07/2002 Outpatient Historical [facility] Fidel Guardado Jr., MD [address] [place] [phone] DIABETES UNCOMPL ADULT-TYPE II (CMS/HCC) (Primary Dx); HYPERTENSION NOS Social History Tobacco Use Types Packs/Day Years Used Date Smoking Tobacco: Never Assessed Comments Unknown Sex and Gender Information Value Date Recorded Sex Assigned at Not on file Legal Sex Female 4:30 AM DIRECTOR CHEMISTRY Gender Identity Not on file Sexual Orientation Not on file documented as of this encounter Plan of Treatment Not on file documented as of this encounter Visit Diagnoses Diagnosis Type II or unspecified type diabetes mellitus without mention of complication, not stated as uncontrolled- Primary Unspecified essential hypertension documented in this encounter
--- OUTSIDE RECORDS SUMMARY | 2025-07-24 07:28 | XMS_ITS | Encounter Summary ---
Author Organization [facility] Address [address] [place] [address] Care Team Providers Care Survey Data Technician Name Role Phone Unavailable Primary Care Provider Unavailabl e Encounter Details Date Type Department Care Team (Latest Contact Info) Description 12/01/2001 Outpatient Historical [facility] Fidel Guardado Jr., MD [address] [place] [phone] ABDOMINAL PAIN UNSPEC SITE (Primary Dx); DIABETES UNCOMPL ADULT-TYPE II (CMS/HCC); HYPERTENSION NOS; Postgastric surgery syndrome Social History Tobacco Use Types Packs/Day Years Used Date Smoking Tobacco: Never Assessed Comments Unknown Sex and Gender Information Value Date Recorded Sex Assigned at Not on file Legal Sex Female 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
--- OUTSIDE RECORDS SUMMARY | 2025-07-24 07:28 | XMS_ITS | Encounter Summary ---
Author Organization [employer] [facility] Address [address] [place] [address] Care Team Providers Care Sociology Faculty Member Name Role Phone Unavailable Primary Care Provider Unavailabl e Encounter Details Date Type Department Care Team (Latest Contact Info) Description 07/14/2001 Outpatient Historical [facility] Fidel Guardado Jr., MD [address] [place] [phone] Type II or unspecified type diabetes mellitus without mention of complication, not stated as uncontrolled (Primary Dx); Unspecified essential hypertension; General symptoms NEC Social History Tobacco Use Types Packs/Day Years Used Date Smoking Tobacco: Never Assessed Comments Unknown Sex and Gender Information Value Date Recorded Sex Assigned at Not on file Legal Sex Female 4:30 AM ESTATE CONSERVATOR Gender Identity Not on file Sexual Orientation Not on file documented as of this encounter Plan of Treatment Not on file documented as of this encounter Visit Diagnoses Diagnosis Type II or unspecified type diabetes mellitus without mention of complication, not stated as uncontrolled- Primary Unspecified essential hypertension General symptoms NEC Other general symptoms documented in this encounter
--- OUTSIDE RECORDS SUMMARY | 2025-07-24 07:28 | XMS_ITS | Encounter Summary ---
Author Organization [employer] [facility] Address [address] [place] [address] Care Team Providers Care Science Education Professor Name Role Phone Unavailable Primary Care Provider Unavailabl e Encounter Details Date Type Department Care Team (Latest Contact Info) Description 02/09/2002 Outpatient Historical [facility] Fidel Guardado Jr., MD [address] [place] [phone] DIABETES UNCOMPL ADULT-TYPE II (CMS/HCC) (Primary Dx); HYPERTENSION NOS Social History Tobacco Use Types Packs/Day Years Used Date Smoking Tobacco: Never Assessed Comments Unknown Sex and Gender Information Value Date Recorded Sex Assigned at Not on file 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
--- OUTSIDE RECORDS SUMMARY | 2025-07-24 07:28 | XMS_ITS | Encounter Summary ---
Author Organization [employer] [facility] Address [address] [place] [address] Care Team Providers Care Sales Representative Graphic Art Name Role Phone Unavailable Primary Care Provider Unavailabl e Encounter Details Date Type Department Care Team (Latest Contact Info) Description 02/02/2002 Outpatient Historical [facility] Fidel Guardado Jr., MD [address] [place] [phone] HYPERTENSION NOS (Primary Dx); CARDIAC DYSRHYTHMIA NOS; DIABETES UNCOMPL ADULT-TYPE II (CMS/HCC); GENERALIZED ANXIETY DIS Social History Tobacco Use Types Packs/Day Years Used Date Smoking Tobacco: Never Assessed Comments Unknown Sex and Gender Information Value Date Recorded Sex Assigned at Not on file Legal Sex Female 4:30 AM CYTOGENETICS LABORATORY MANAGER Gender Identity Not on file Sexual Orientation Not on file documented as of this encounter Plan of Treatment Not on file documented as of this encounter Visit Diagnoses Diagnosis Unspecified essential hypertension- Primary Cardiac dysrhythmia, unspecified Type II or unspecified type diabetes mellitus without mention of complication, not stated as uncontrolled Generalized anxiety disorder documented in this encounter
--- OUTSIDE RECORDS SUMMARY | 2025-07-24 07:28 | XMS_ITS | Encounter Summary ---
Author Organization [place] [facility], [facility] Address [address] [facility] [address] [place] [address] Phone Care Team Providers Care Datapower Consultant Name Role Phone Coleman Padgett MD Primary Care Provider [phone] Encounter Details Date Type Department Care Team (Late st Contact Info) Description 05/12/2020 Orders Only [place] [facility] [address] [facility] [address] [place] [address] Type 2 diabetes mellitus with diabetic chronic kidney disease (HCC); Chronic kidney disease, stage 3 (moderate) (HCC) Social History Tobacco Use Types Packs/Day [...] Description 08/27/2025 11:00 AM CDT Office Visit [place] [facility], [facility] [address] [place] [address] Leticia Ayala LOSS MITIGATION SPECIALIST [address] [facility] [address] [place] [address] documented as of this encounter Visit Diagnoses Diagnosis Type 2 diabetes mellitus with diabetic chronic kidney disease (HCC) Chronic kidney disease, stage 3 (moderate) documented in this encounter Care Teams Datapower Consultant Relationship Specialty Start Date End Date Coleman Padgett MD [address] [place] [address] PCP - General Internal Medicine 12/24/24 documented as of this encounter
--- OUTSIDE RECORDS SUMMARY | 2025-07-24 07:28 | XMS_ITS | Encounter Summary ---
Author Organization [facility] Address [address] [place] [address] Care Team Providers Care Associate Name Role Phone Unavailable Primary Care Provider Unavailabl e Encounter Details Date Type Department Care Team (Latest Contact Info) Description 01/27/2000 Outpatient Historical [facility] Manuel Andersen MD [address] [place] [phone] Type II or unspecified type diabetes mellitus without mention of complication, not stated as uncontrolled (Primary Dx); Unspecified essential hypertension; Obesity, unspecified Social History Tobacco Use Types Packs/Day Years Used Date Smoking Tobacco: Never Assessed Comments Unknown Sex and Gender Information Value Date Recorded Sex Assigned at Not on file Legal Sex Female 4:30 AM COMMUNITY ACTION 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
--- OUTSIDE RECORDS SUMMARY | 2025-07-24 07:28 | XMS_ITS | Encounter Summary ---
Author Organization [employer] [facility] Address [address] [place] [address] Care Team Providers Care Lithographic Artist Name Role Phone Unavailable Primary Care Provider Unavailabl e Encounter Details Date Type Department Care Team (Latest Contact Info) Description 11/23/2001 Outpatient Historical [facility] Fidel Guardado Jr., MD [address] [place] [address] HYPERTENSION NOS (Primary Dx); DIABETES UNCOMPL ADULT-TYPE II (CMS/HCC) Social History Tobacco Use Types Packs/Day Years Used Date Smoking Tobacco: Never Assessed Comments Unknown Sex and Gender Information Value Date Recorded Sex Assigned at Not on file Legal Sex Female 4:30 AM ENVIRONMENTAL 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
--- OUTSIDE RECORDS SUMMARY | 2025-07-24 07:28 | XMS_ITS | Encounter Summary ---
Author Organization [facility] Address [address] [facility] Attn: Epic Prelude ADT [place] R[place] [address] Care Team Providers Care Regional Production Manager Name Role Phone Unavailable Primary Care Provider Unavailabl e Encounter Details Date Type Department Care Team (Late st Contact Info) Description 03/07/2002 Outpatient Historical Geo Tong, Fidel Medina MD [address] [place] [address] Social History Tobacco Use Types Packs/Day Years Used Date Smoking Tobacco: Never Assessed Comments Unknown Sex and Gender Information Value Date Recorded Sex Assigned at Not on file Legal Sex Female 4:30 AM HAND I THERMAL CUTTER Gender Identity Not on file Sexual Orientation Not on file documented as of this encounter Plan of Treatment Not on file documented as of this encounter Visit Diagnoses Not on filedocumented in this encounter
--- NOTE | 2025-07-24 07:29 | ED_ITS ---
HPI - General Adult 2 General: Chief complaint: Neuro Symptoms/Deficit Stated complaint: woke up with extreme high bp Time Seen by Provider: 07/24/25 07:17 Source: patient Mode of arrival: ambulatory Limitations: no limitations History of Present Illness: 70-year-old female who states that she w jordan up this morning and was not able to see. She has a history of hypertension she states she is only able to see the lights barely. Her last known normal was 3 AM. She denies any headache she denies any eye pain she has no other symptoms she is hypertensive has a history hypertension Associated symptoms: Deny chest pain, dyspnea, headache(s), nausea, rash or vomiting Related Data Home Medications ?Medication ?Instructions ?Recorded ?Confirmed acetaminophen 325 mg tablet 325 - 650 mg PO Q6H PRN Pa in 12/13/21 02/04/25 insulin degludec 200 unit/mL (3 48 unit SUBCUT DAILY 0 07/09/24 02/04/25 mL) subcutaneous pen (Tresiba FlexTouch U-200 insulin) potassium chloride 10 mEq 10 meq PO DAILY 07/09/24 capsule,extended release albuterol sulfate 90 mcg/actuation 2 puff inhalation Q 4H PRN 01/16/25 02/04/25 aerosol inhaler Shortness Of Breath metolazone 5 mg tablet 5 mg PO .DAILY X7D 01/30/25 02/04/25 torsemide 100 mg tablet 100 mg PO DAILY 01/30/25 triamcinolone acetonide 0.025 % 1 applic topical DAILY PRN Skin 01/30/25 02/04/25 topical cream Irritation Previous Rx's ?Medication ?Instructions ?Recorded nitroglycerin 0.4 mg sublingual 0.4 mg sublingual Q5M PRN Chest 11/25/23 tablet (Nitrostat) Pain #50 tabs fluoxetine 20 mg capsule 20 mg PO BID #60 caps losartan 100 mg tablet (Cozaar) 100 mg PO DAILY #30 ta bs 04/25/24 Held on 01/22/25. Instructions: Resume on 02/19/25. hold until follow up with nephrology pantoprazole 40 mg tablet,delayed 40 mg PO DAILY #30 t abs 04/25/24 release sennosides 8.6 mg-docusate sodium 1 tab-cap PO BID #60 tabs 04/25/24 50 mg tablet (Senokot-S) leflunomide 10 mg tablet 10 mg PO DAILY #90 tabs 06/22 05/14 metoclopramide HCl 10 mg tablet 10 mg PO Q6H PRN nause a and 01/30/25 vomiting #20 tabs metoprolol succinate 25 mg 12.5 mg (1/2 x 25 mg) PO DA MIRYAM #30 03/20/25 tablet,extended release 24 hr tabs hydralazine 25 mg tablet See Rx Instructions .Route 0 05/16/25 .COMPLEX #90 tabs Allergies Allergy/AdvReac Type Severity Reaction Status Date / Time oxycodone Allergy Unknown Unknown Verified 02/04/25 15:24 spironolactone Allergy Unknown Temporary Verified 02/04/25 15:24 blindness,temporary blindness acetaminophen (From [place]) Allergy Unknown Verified 02/04/25 15:24 bacitracin Allergy ADR-Nausea Verified 02/04/25 15:24 codeine Allergy ADR-Nausea Verified 02/04/25 15:24 hydrocodone (From [place]) Allergy Unknown Verified 02/04/25 15:24 Latex, Natural Rubber Allergy Unknown Verified 02/04/25 15:24 morphine Allergy ADR-Itching Verified 02/04/25 15:24 neomycin (From Neosporin Allergy ALGY-Rash Verified 02/04/25 15:24 ([id number])) polymyxin B (From Neosporin Allergy ALGY-Rash Verified 02/04/25 15:24 ([id number])) Sulfa (Sulfonamide Allergy ADR-Nausea Verified 02/04/25 15:24 Antibiotics) sulfamethoxazole (From Allergy Unknown Verified 02/04/25 15:24 Bactrim) trimethoprim (From Bactrim) Allergy Unknown Verified 02/04/25 15:24 Review of Systems 2 Const: Denies: fever(s), chills, body aches or change in appetite Eyes: Reports: change in vision ENMT: Denies: throat pain or dental pain Card: Denies: chest pain Resp: Denies: dyspnea GI: Denies: abdominal pain, nausea, vomiting or diarrhea Musc: Denies: neck pain or back pain Skin/Breast: Denies: rash Neuro: Denies: headache(s) PFSH ED 2 PFSH: Medical History (Updated 07/24/25 @ 09:14 by Loly Hunt MD) Chronic diastolic heart failure Gastric ulcer H. pylori ruled out at [facility] Situational anxiety Benign hypertension Type 2 diabetes mellitus with diabetic chronic kidney disease Hospital-acquired pneumonia Acute exacerbation of CHF (congestive heart failure) Acute on chronic renal failure Diabetic gastroparesis Hypoxia Anemia Positive GIFTY (antinuclear antibody) Frequent falls Muscle spasm High risk medication use Seronegative rheumatoid arthritis of both hands Diabetic foot Hip pain, left Atypical chest pain IgM monoclonal gammopathy of uncertain significance Intermittent atrial fibrillation Chest pain Edema CKD (chronic kidney disease) stage 3, GFR 30-59 ml/min Urinary disorder Anxiety Pneumonitis Left lumbar radiculopathy Back pain Lymph edema Fracture of distal end of fibula Syncope and collapse Essential tremor Mobility impaired IBS (irritable bowel syndrome) Inflammatory arthritis Chronic back pain Chronic major depressive disorder Peripheral neuropathy Polyarthralgia Edema, peripheral Noncompliance with diabetes treatment Not consistent with diet Near syncope Monoclonal gammopathy Major depression Diabetic neuropathy associated with type 2 diabetes mellitus Severe obstructive sleep apnea Mild cognitive impairment with memory loss Dietary noncompliance Atrial flutter Coronary artery fistula Chronic obstructive pulmonary disease, unspecified Obesity CKD (chronic kidney disease) Fibromyalgia Diverticulosis Environmental and seasonal allergies Vitamin D deficiency Surgical History History of left heart catheterization (2017) No significant obstructive coronary disease Hx of esophagogastroduodenoscopy Hx of colonoscopy History of tonsillectomy History of section 4 times History of cholecystectomy (1993) History of hysterectomy (1997) with BSO Family History Brother Bleeding disorder CAD (coronary artery disease) Father CAD (coronary artery disease) Chronic kidney disease (CKD) Mother CAD (coronary artery disease) Cancer Diabetes Family/Other Cancer Other Congestive heart failure (CHF) Heart disease Hypertension Denies family history of Clotting disorder Dementia Suicide Anesthesia complication Lung disease Stroke Social History Smoking and tobacco/nicotine status: former use of tobacco/nicotine Quit status (tobacco/nicotine): has quit using Year quit tobacco: 1990 Former quit date comment: smoked 20+ years Second hand smoke exposure: No Alcohol intake: never Substance/Drug Use: never Adopted: No Caregiver/support person: Yes Lives independently: No Household members: children and other Details: Son, sometimes grandson Housing: House Marital status: Single service: No Current occupational status: disabled Do you think of yourself as: Straight/Heterosexual Current gender identity: Female Physical Exam 2 Const: COMMON NORMALS: patient oriented x3 and alert O RIENTATION/CONSCIOUSNESS: Yes oriented to person, Yes oriented to place and Yes oriented to time HENMT: COMMON NORMALS: normocephalic and atraumatic HEAD & SCALP: n ormocephalic and atraumatic Eye: COMMON NORMALS: Equal, round and reactive pupils present, EOMs intact bilaterally and conjunctivae normal CONJUNCTIVA: Yes conjunctivae normal P UPIL: Yes Equal, round and reactive pupils present OTHER: Patient not able to see out of either eye only light Neck/C-Spine: COMMON NORMALS: full ROM and supple Chest: COMMONS NORMALS: normal inspection of the chest Resp: COMMON NORMALS: normal respiratory effort, No retractions, No use of accessory muscles and clear to auscultation bilaterally AUSCULTATION: clear to auscultation bilaterally Cardio: COMMON NORMALS: regular rate, regular rhythm and No murmurs present (Cardio) RATE: regular rate RHYTHM: regular rhythm Extremity: COMMON NORMALS: normal to inspection and full ROM Neuro: COMMON NORMALS: patient oriented x3, moves all extremities and no focal motor deficits SENSORIUM/ORIENTATION: Yes alert, Yes oriented to person, Yes oriented to place and Yes oriented to time SPEECH: speech normal GAIT: Yes Normal gait present MOTOR EXAM: 5/5 motor strength present throughout Psych: COMMON NORMALS: mental status grossly normal, Normal thought process present and cooperative THOUGHT PROCESS: Normal thought process present Skin: COMMON NORMALS: no rashes or lesions noted and no wounds GENERAL SKIN EXAM: no rashes or lesions noted Course 2 Vital Signs: Vital signs: Vital Signs Temperature 98.6 F 07/24/25 07:26 Pulse Rate 71 07/24/25 08:31 Respiratory Rate 17 07/24/25 08:30 Blood Pressure 183/78 07/24/25 08:31 Pulse Oximetry 94 07/24/25 08:31 Oxygen Delivery Me thod Room Air 07/24/25 07:26 MDM - General Adult Medical Decision Making Patient presents here with sudden onset blindness her last known normal was 3 AM show she is out of the window for TNKase head CT showed no acute abnormalities elevated creatinine is unable to do a CT I did speak to her neurologist Dr. Grant recommended admission on MRI of spoke to hospitalist who is admitting Medical Records I reviewed the patient's medical records. Lab Data I reviewed the patient's lab results. 07/24/25 07:44 07/24/25 07:[address] 07/24/25 07:25 IMPRESSION: 1. Age appropriate mild supratentorial and infratentorial atrophy. 2. Mild chronic white matter microvascular ischemic disease. 3. No acute intracranial abnormality identified. ASSESSMENT: ASPECTS ([place] Stroke Program Early CT Score) is 10. ADDENDUM: 07/24/25 0746 THIS REPORT CONTAINS FINDINGS THAT MAY BE CRITICAL TO PATIENT CARE. The findings were verbally communicated by me to DR. LOLY HUNT via telephone conference at 7:45 AM CDT on 07/24/2025. The findings were acknowledged and understood. Laboratory Results WBC 5.25 10^3/uL (3.29-11.43) 07/24/25 07:44 RBC 3.78 10^6/uL (3.85-5.65) L 07/24/25 07:44 Hgb 10.60 g/dL (11.27-16.99) L 07/24/25 07:44 Hct 33.8 % (36-47) L 07/24/25 07:44 MCV 89.4 fl (85-98) 07/24/25 07:44 MCH 28.0 pg (27-33) 07/24/25 07:44 MCHC 31.4 g/dL (30-55) 07/24/25 07:44 RDW 13.4 % (12.1-15.1) 07/24/25 07:44 Plt Count 149 10^3/cmm (157-399) L 07/24/25 07:44 MPV 10.7 fL (7.4-10.4) H 07/24/25 07:44 Neut % (Auto) 67.7 % 07/24/25 07:44 Lymph % (Auto) 19.0 % 07/24/25 07:44 Mcnairy % (Auto) 8.0 % 07/24/25 07:44 Eos % (Auto) 3.8 % 07/24/25 07:44 Baso % (Auto) 1.3 % 07/24/25 07:44 Neut # (Auto) 3.55 10^3/uL (1.8-7.7) 07/24/25 07:44 Lymph # (Auto) 1.0 10^3/uL (0.8-4.8) 07/24/25 07:44 Mcnairy # (Auto) 0.4 10^3/uL (0.2-0.9) 07/24/25 07:44 Eos # (Auto) 0.2 10^3/uL (0.0-0.8) 07/24/25 07:44 Baso # (Auto) 0.1 10^3/uL (0.0-0.1) 07/24/25 07:44 Nucleated RBC % (auto) 0 % 07/24/25 07:44 Nucleated RBCs # 0.0 /100WBC 07/24/25 07:44 PT 13.10 SECONDS (12.1-14.9) 07/24/25 07:44 INR 0.93 (0.8-1.2) 07/24/25 07:44 APTT 26.9 SECONDS (23.9-36.7) 07/24/25 07:44 Sodium 145 mmol/L (136-145) 07/24/25 07:44 Potassium 3.7 mmol/L (3.5-5.1) 07/24/25 07:44 Chloride 104 mmol/L (98-107) 07/24/25 07:44 Carbon Dioxide 28 mmol/L (22-29) 07/24/25 07:44 Anion Gap 16.7 (5-19) 07/24/25 07:44 BUN 58 mg/dL (8-23) H 07/24/25 07:44 Creatinine 2.5 mg/dL (0.5-0.9) H 07/24/25 07:44 GFR Calculation 19.2 mL/min (90-130) L 07/24/25 07:44 Glucose 83 mg/dL (65-115) 07/24/25 07:44 POC Glucose 78 mg/dL (70-110) 07/24/25 07:27 Calculated Osmolality 315 mOsm/kg (285-295) H 07/24/25 07:44 Calcium 9.5 mg/dL (8.5-10.5) 07/24/25 07:44 Total Bilirubin 0.2 mg/dL (0.15-1.2) 07/24/25 07:44 AST 20 U/L (0-32) 07/24/25 07:44 ALT 13 U/L (0-33) 07/24/25 07:44 Alkaline Phosphatase 136 U/L (35-105) H 07/24/25 07:44 Total Protein 7.2 g/dL (6.6-8.7) 07/24/25 07:44 Albumin 3.7 g/dL (3.5-5.2) 07/24/25 07:44 Globulin 3.5 g/dL (1.3-4.6) 07/24/25 07:44 All radiology interpretation(s) finalized by discharge Discharge Plan Discharge Patient Disposition: Admitted As Inpatient Clinical Impression: Hypertension, CVA (cerebral vascular accident) Condition: Stable Coding Level of Care Code ED Senior Sourcing Manager for Anel Mcknight NIH stroke score NIHSS Level Of Consciousness - 1a: 0 Level Of Consciousness Questions - 1b: Both Correct Level Of Consciousness Commands - 1c: Both Correct Best Gaze - 2: Normal Visual Zuleta - 3: Bilateral Facial Palsy - 4: Normal Motor Arm Right - 5: No Drift Motor Arm Left - 5: No Drift Motor Leg Right - 6: No Drift Motor Leg Left - 6: No Drift Limb Ataxia - 7: Absent Sensory - 8: Normal Best Language - 9: No Aphasia Dysarthia - 10: Normal Extinction And Inattention - 11: 0 Score Total Score: 3
--- OUTSIDE RECORDS SUMMARY | 2025-07-24 07:29 | XMS_ITS | Encounter Summary ---
Author Organization [facility] Address [address] [place] [address] Care Team Providers Care Information Security Director Name Role Phone Unavailable Primary Care Provider Unavailabl e Encounter Details Date Type Department Care Team (Latest Contact Info) Description 10/28/1999 Outpatient Historical [facility] Manuel Andersen MD [address] [place] [address] Chest pain, unspecified (Primary Dx); Type II or unspecified type diabetes mellitus without mention of complication, not stated as uncontrolled; Paroxysmal supraventricular tachycardia Social History Tobacco Use Types Packs/Day Years Used Date Smoking Tobacco: Never Assessed Comments Unknown Sex and Gender Information Value Date Recorded Sex Assigned at Not on file 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
--- OUTSIDE RECORDS SUMMARY | 2025-07-24 07:29 | XMS_ITS | Continuity of Care Document ---
Author Organization [facility] ([facility]) Address [address] [place] [address] Problems Condition ICD9 code ICD10 code SNOMED code Start Date End Date S tatus Hypertensive heart and chronic kidney disease with heart failure and stage 1 through stage 4 chronic kidney disease, or unspecified chronic kidney disease I13.0 09/19/2023 Active Chronic diastolic (congestive) heart failure I50.32 09/19/2023 Active Pneumonia, unspecified organism J18.9 09/19/2023 Active Muscle weakness (generalized) M62.81 09/20/2023 Active Difficulty in walking, not elsewhere classified R26.2 09/20/2023 Active Need for assistance with personal care Z74.1 09/22/2023 Active Dysphagia, pharyngoesophageal phase R13.14 09/20/2023 Active Gastric ulcer, unspecified as acute or chronic, without hemorrhage or perforation K25.9 09/19/2023 Active Irritable bowel syndrome without diarrhea K58.9 09/19/2023 Active Paroxysmal atrial fibrillation I48.0 09/19/2023 Active Unspecified atrial flutter I48.92 09/19/2023 Active Other chest pain R07.89 09/19/2023 Acti ve Personal history of nicotine dependence Z87.891 09/19/2023 Activ e Chronic obstructive pulmonary disease, unspecified J44.9 09/19/2023 Active Hypoxemia R09.02 09/19/2023 Active Monoclonal gammopathy D47.2 09/19/2023 Active Type 2 diabetes mellitus with diabetic autonomic (poly)neuropathy E11.43 09/19/2023 Active Gastroparesis K31.84 09/19/2023 Active Type 2 diabetes mellitus with diabetic chronic kidney disease E11.22 09/19/2023 Active Chronic kidney disease, stage 4 (severe) N18.4 09/19/2023 Active intermediate (current) use of insulin Z79.4 09/19/2023 Active Patient's noncompliance with dietary regimen due to unspecified reason Z91.119 09/19/2023 Act juani Polyarthritis, unspecified M13.0 09/19/2023 Active Rheumatoid arthritis without rheumatoid factor, right hand M06.041 09/19/2023 Active Rheumatoid arthritis without rheumatoid factor, left hand M06.042 09/19/2023 Active Fibromyalgia M79.7 09/19/2023 Active Radiculopathy, lumbar region M54.16 09/19/2023 Active Major depressive disorder, single episode, unspecified F32.9 09/19/2023 Active Other specified anxiety disorders F41.8 09/19/2023 Active Anemia, unspecified D64.9 09/19/2023 A ctive Activated protein C resistance D68.51 09/19/2023 Active Morbid (severe) obesity due to excess calories E66.01 09/19/2023 Ac tive Body mass index (BMI) 60.0-69.9, adult Z68.44 09/19/2023 Active Candidiasis of skin and nail B37.2 09/22/2023 Active Mild cognitive impairment, so stated G31.84 09/19/2023 Act juani Results No Results Allergies, adverse reactions, alerts Substance Reaction Date Status Type Latex 09/19/2023 Non Drug Morphine Sulfate (MS) 09/19/2023 Non Drug codeine sulfate 09/19/2023 Non Drug Sulfonamides (Sulfa) 09/19/2023 Non Drug Natural Rubber 09/19/2023 Non Drug Immunizations Vaccine Route Date Status Influenza Vaccine Unassigned Route of Administration 1 11/21/2022 Completed Medications Medication Instructions Route Dosage Frequency Start Date Stop Date Indications Status Abrysvo (rsv vac, pref a and pref b(pf)) 120 mcg/0.5 mL recon soln (Abrysvo (rsv vac, pref a and pref b(pf))) 0.5ml, intramuscular , Once - One Time intramuscu lar 1.0 10/04 Active Afluria Qd 2022-(3yr up)(PF) (flu vac [id number] 36mos up(pf)) 60 mcg (15 mcg x 4)/0.5 mL syringe (Afluria Qd (3yr up)(PF) (flu vac [id number] 36mos up(pf))) 0.5ml, intramuscular , Once - One Time intramuscu lar 1.0 10/04 Active albuterol sulfate 90 mcg/actuation HFA aerosol inhaler (albuterol sulfate) 2 puffs, inhalation, Every 4 Hours - PRN, Clinical Indication: Dyspnea inhalation 1.0 4.0 h 10/04 Active alprazolam 0.5 mg tablet (alprazolam) 0.5mg, oral, Once - One Time oral 1.0 10/04 Active amlodipine 10 mg tablet (amlodipine) 1, oral, Once A Day oral 1.0 1.0 d 10/04 Active amoxicillin-pot clavulanate 875-125 mg tablet (amoxicillin-po t clavulanate) 1, oral, Twice A Day oral 1.0 12.0 h 10/04 Active amoxicillin-pot clavulanate 500-125 mg tablet (amoxicillin-po t clavulanate) 1, oral, Twice A Day oral 1.0 12.0 h 09/19 Active bumetanide 2 mg tablet (bumetanide) 1, oral, Twice A Day oral 1.0 12.0 h 10/04 Active cholecalciferol (vitamin D3) 125 mcg (5,000 unit) capsule (cholecalcifero l (vitamin D3)) 1, oral, Once A Day oral 1.0 1.0 d 10/04 Active clindamycin phosphate 1 % lotion (clindamycin phosphate) as directed, topical, Twice A Day - PRN, Apply topically twice daily as needed for skin irritation topical 1.0 12.0 h 10/04 Active dicyclomine 20 mg tablet (dicyclomine) 1, oral, Four Times A Day oral 1.0 6.0 h 10/04 Active doxycycline hyclate 100 mg capsule (doxycycline hyclate) 1, oral, Twice A Day oral 1.0 12.0 h 10/04 Active Dulcolax (bisacodyl) (bisacodyl) 5 mg tablet,delayed release (DR/EC) (Dulcolax (bisacodyl) (bisacodyl)) 2 tabs/10mg, oral, Once A Day - PRN, Give if no results from MOM oral 1.0 1.0 d 10/04 Active Dulcolax (bisacodyl) (bisacodyl) 10 mg suppository (Dulcolax (bisacodyl) (bisacodyl)) 1 suppository, rectal, Once A Day - PRN, Give rectally if can't take p/o, if no results from MOM rectal 1.0 1.0 d 10/04 Active Fleet Enema (sodium phosphates) 19-7 gram/118 mL enema (Fleet Enema (sodium phosphates)) 1 application, rectal, Once A Day - PRN, Give fleets if no results from MOM and Dulcolax rectal 1.0 1.0 d 10/04 Active fluoxetine 20 mg capsule (fluoxetine) 1, oral, Once A Morning oral 1.0 10/04 Active fluoxetine 40 mg capsule (fluoxetine) 1, oral, At Bedtime oral 1.0 10/04 Active Humalog KwikPen Insulin (insulin lispro) 100 unit/mL insulin pen (Humalog KwikPen Insulin (insulin lispro)) Per Sliding Scale, subcutaneous, Before Meals and At Bedtime, If Blood Sugar is less than 60, call MD.If Blood Sugar is 150 to 200, give 0 Units.If Blood Sugar is 201 to 250, give 2 Units.If Blood Sugar is 251 to 300, give 4 Units.If Blood Sugar is 301 to 350, give 6 Units.If Blood Sugar is 351 to 400, give 8 Units.If Blood Sugar is greater than 400, give 8 Units. subcutaneo us 1.0 10/04 Type 2 diabetes mellitus with diabetic autonomic (poly)neurop athy Active hydralazine 50 mg tablet (hydralazine) 1, oral, Three Times A Day oral 1.0 8.0 h 10/04 Active hydroxychloroqu ine 200 mg tablet (hydroxychloroq uine) 1, oral, Twice A Day oral 1.0 12.0 h 10/04 Active hydroxyzine pamoate 50 mg capsule (hydroxyzine pamoate) 1, oral, Three Times A Day oral 1.0 8.0 h 10/04 Active isosorbide mononitrate 60 mg tablet extended release 24 hr (isosorbide mononitrate) 1, oral, Once A Day oral 1.0 1.0 d 10/04 Active magnesium oxide 400 mg magnesium tablet (magnesium oxide) 1, oral, Once A Day - PRN, As needed for Muscle Spasm oral 1.0 1.0 d 10/04 Active metoprolol tartrate 25 mg tablet (metoprolol tartrate) 1, oral, Twice A Day oral 1.0 12.0 h 10/04 Active Milk of Magnesia (magnesium hydroxide) 400 mg/5 mL suspension (Milk of Magnesia (magnesium hydroxide)) 30 ml, oral, Every 72 Hours - PRN, if no BM in 3 daysDO NOT GIVE TO RENAL PATIENTS--GO TO DULCOLAX ORDERS oral 1.0 72.0 h 10/04 Active nitroglycerin 0.4 mg tablet, sublingual (nitroglycerin) 1-3, sublingual, Three Times A Day - PRN, Administer 1 tablet sublingually every 5 min for chest pain. NO MORE than 3 tablets. Monitor BP and HOLD if SBP less than or equal to 90. sublingual 1.0 8.0 h 10/04 Active nystatin 100,000 unit/gram powder (nystatin) as directed, topical, Twice A Day, Apply to reddened areas q shift till healed then d/c topical 1.0 12.0 h 10/043 Active nystatin-triamc inolone 100,000-0.1 unit/g-% cream (nystatin-triam cinolone) 1 application, topical, Twice A Day, Special Instructions: special instructions: apply under L breast BID x 2 weeks topical 1.0 12.0 h 10/04 Active ondansetron 8 mg tablet,disinteg rating (ondansetron) 1, oral, Every 8 Hours - PRN, Clinical Indication: nausea/vomiti ng oral 1.0 8.0 h 10/04 Active oxycodone 5 mg tablet (oxycodone) 1/2-1 tablet, oral, Every 6 Hours - PRN, Clinical Indication: Pain oral 1.0 6.0 h 10/04 Active pantoprazole 40 mg tablet,delayed release (DR/EC) (pantoprazole) 1, oral, Twice A Day oral 1.0 12.0 h 10/04 Active potassium chloride 10 mEq tablet extended release (potassium chloride) 1, oral, Twice A Day oral 1.0 12.0 h 10/04 Active Prevnar 20 (PF) (pneumoc 20-comfort conj-dip cr(pf)) 0.5 mL syringe (Prevnar 20 (PF) (pneumoc 20-comfort conj-dip cr(pf))) 0.5ml, intramuscular , Once - One Time intramuscu lar 1.0 10/04 Active rosuvastatin 10 mg tablet (rosuvastatin) 1, oral, At Bedtime oral 1.0 10/04 Active Tresiba FlexTouch U-200 (insulin degludec) 200 unit/mL (3 mL) insulin pen (Tresiba FlexTouch U-200 (insulin degludec)) 80 units, subcutaneous, Once A Day subcutaneo us 1.0 1.0 d 10/04 Active triamcinolone acetonide 0.1 % ointment (triamcinolone acetonide) as directed, topical, Once A Day - PRN, Apply to skin (arms, legs, and torso) daily as needed for itching topical 1.0 1.0 d 10/04 Active Tubersol (tuberculin ppd) 5 tub. unit /0.1 mL solution (Tubersol (tuberculin ppd)) 0.1ml, intradermal, Once - One Time, Administer the morning after admission intraderma l 1.0 10/04 Active Tubersol (tuberculin ppd) 5 tub. unit /0.1 mL solution (Tubersol (tuberculin ppd)) 0.1ml, intradermal, Once - One Time, Administer on the day shift intraderma l 1.0 10/04 Active Tylenol (acetaminophen) 325 mg tablet (Tylenol (acetaminophen) ) 2 tabs/650mg, oral, Every 6 Hours - PRN, as needed for PRN pain/increase d tempMay give rectally if necessary oral 1.0 6.0 h 10/04 Active Vitamin B-12 (cyanocobalamin (vitamin b-12)) 50 mcg tablet (Vitamin B-12 (cyanocobalamin (vitamin b-12))) 1, oral, Once A Day oral 1.0 1.0 d 10/04 Active Xanax (alprazolam) 0.25 mg tablet (Xanax (alprazolam)) 1, oral, At Bedtime, Administer 1 tab PO Q HS for anxiety oral 1.0 10/04 Active Vital Signs Date Vital Result Comment 10/01/2023 09:32 PM Oxygen Saturation (10157-1) 97 % 09/30/2023 11:31 PM Temperature (8310-5) 97.9 [degF] 09/27/2023 11:13 AM Body Weight (98821-2) 351.2 [lb_av ] Body Mass Index (35666-0) 64.23 kg/m2 10/02/2023 08:09 PM Oxygen Saturation (07599-2) 96 % 10/02/2023 07:49 PM Blood Pressure Systolic (8480-6) 1 36 mm[Hg] Blood Pressure Diastolic (8462-4) 60 mm[Hg] 10/02/2023 08:10 PM Temperature (8310-5) 98.6 [degF] Oxygen Saturation (06607-3) 96 % Respiratory Rate (9279-1) 18 /min Heart Rate (8867-4) 63 /min Blood Pressure Systolic (8480-6) 136 mm[Hg] Blood Pressure Diastolic (8462-4) 60 mm[Hg] 10/01/2023 11:13 AM Body Weight (42380-3) 343.8 [lb_av ] Body Mass Index (81165-7) 62.87 kg/m2 10/04/2023 09:31 AM Oxygen Saturation (32788-5) 97 % 09/29/2023 02:01 PM Body Weight (54457-3) 344 [lb_av] Body Mass Index (33379-8) 62.91 kg/m2 10/02/2023 04:29 PM Body Weight (91930-2) 338 [lb_av] Body Mass Index (39213-5) 61.81 kg/m2 10/04/2023 11:39 AM Temperature (8310-5) 97.5 [degF] Respiratory Rate (9279-1) 20 /min Heart Rate (8867-4) 60 /min Blood Pressure Systolic (8480-6) 106 mm[Hg] Blood Pressure Diastolic (8462-4) 51 mm[Hg] 10/03/2023 08:21 PM Temperature (8310-5) 97.7 [degF] Oxygen Saturation (01784-1) 96 % Respiratory Rate (9279-1) 20 /min Heart Rate (8867-4) 65 /min Blood Pressure Systolic (8480-6) 113 mm[Hg] Blood Pressure Diastolic (8462-4) 51 mm[Hg] 10/01/2023 09:33 PM Temperature (8310-5) 97.7 [degF] Oxygen Saturation (93426-4) 97 % Respiratory Rate (9279-1) 20 /min Heart Rate (8867-4) 65 /min Blood Pressure Systolic (8480-6) 122 mm[Hg] Blood Pressure Diastolic (8462-4) 51 mm[Hg] 09/29/2023 07:48 PM Respiratory Rate (9279-1) 20 /min Heart Rate (8867-4) 76 /min 10/03/2023 01:15 PM Blood Pressure Systolic (8480-6) 1 31 mm[Hg] Blood Pressure Diastolic (8462-4) 60 mm[Hg] 10/03/2023 10:15 AM Blood Pressure Systolic (8480-6) 1 23 mm[Hg] Blood Pressure Diastolic (8462-4) 54 mm[Hg] 10/02/2023 02:41 PM Blood Pressure Systolic (8480-6) 1 35 mm[Hg] Blood Pressure Diastolic (8462-4) 62 mm[Hg] 10/02/2023 09:12 AM Temperature (8310-5) 98.3 [degF] Oxygen Saturation (16725-7) 97 % Respiratory Rate (9279-1) 20 /min Heart Rate (8867-4) 68 /min 10/03/2023 01:51 PM Body Weight (58575-8) 336 [lb_av] Body Mass Index (73107-0) 61.45 kg/m2 10/03/2023 10:17 AM Temperature (8310-5) 97.3 [degF] Respiratory Rate (9279-1) 21 /min Heart Rate (8867-4) 65 /min 10/02/2023 09:11 AM Blood Pressure Systolic (8480-6) 1 40 mm[Hg] Blood Pressure Diastolic (8462-4) 62 mm[Hg] 09/30/2023 12:56 PM Body Weight (20734-1) 344 [lb_av] Body Mass Index (27399-5) 62.91 kg/m2 10/03/2023 10:16 AM Oxygen Saturation (13028-0) 96 % 09/26/2023 10:16 AM Body Weight (59628-5) 344.4 [lb_av ] Body Mass Index (34143-3) 62.98 kg/m2 09/25/2023 10:44 AM Body Weight (10117-6) 342.2 [lb_av ] Body Mass Index (08079-1) 62.58 kg/m2 09/30/2023 09:52 PM Temperature (8310-5) 99 [degF] Oxygen Saturation (77006-8) 97 % Respiratory Rate (9279-1) 20 /min Heart Rate (8867-4) 83 /min 09/30/2023 09:24 AM Temperature (8310-5) 97.1 [degF] Respiratory Rate (9279-1) 18 /min Heart Rate (8867-4) 72 /min 09/28/2023 06:48 PM Body Weight (90454-0) 342.2 [lb_av ] Body Mass Index (57431-2) 62.58 kg/m2 10/01/2023 11:06 AM Temperature (8310-5) 97.9 [degF] Oxygen Saturation (66471-2) 97 % Respiratory Rate (9279-1) 24 /min Heart Rate (8867-4) 86 /min 10/03/2023 07:56 PM Blood Pressure Systolic (8480-6) 1 13 mm[Hg] Blood Pressure Diastolic (8462-4) 51 mm[Hg] 09/22/2023 05:39 PM Body Weight (86146-8) 339.6 [lb_av ] Body Mass Index (39904-2) 62.11 kg/m2 09/20/2023 10:29 AM Body Weight (65134-7) 346.2 [lb_av ] Body Mass Index (03790-2) 63.31 kg/m2 09/19/2023 04:41 PM Body Weight (06945-8) 347 [lb_av] Body Mass Index (35830-9) 63.46 kg/m2 09/21/2023 01:23 PM Body Weight (55921-0) 341.4 [lb_av ] Body Mass Index (91600-5) 62.44 kg/m2 09/19/2023 05:32 PM Body Weight (02530-6) 351.6 [lb_av ] Body Mass Index (79019-1) 64.3 kg/m2 09/20/2023 12:03 AM Body Height (8302-2) 62 [in_us] Body Weight (93488-5) 350 [lb_av] Body Mass Index (38319-5) 64.01 kg/m2 09/23/2023 09:11 AM Body Weight (12886-7) 340.4 [lb_av ] Body Mass Index (11157-5) 62.25 kg/m2 09/21/2023 01:26 PM Body Weight (80690-2) 341.4 [lb_av ] Body Mass Index (91229-7) 62.44 kg/m2 09/20/2023 06:36 PM Body Weight (54132-3) 346.2 [lb_av ] Body Mass Index (25496-7) 63.31 kg/m2 09/24/2023 04:20 PM Body Weight (00429-4) 342.8 [lb_av ] Body Mass Index (97793-1) 62.69 kg/m2 Social History No smoking Hx information available Encounters Type CPT Code Date Location Provider Indication s encounter report 09/19/2023 03:3 7 PM - 10/04/2023 07:22 PM Bj Delong DO 01 Advance Directives Directive Description Verification Date Supporting Document(s) Other Directive
--- OUTSIDE RECORDS SUMMARY | 2025-07-24 07:29 | XMS_ITS | Encounter Summary ---
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 Name Role Phone Unavailable Primary Care Provider Unavailabl e Encounter Details Date Type Department Care Team ([facility] st Contact Info) Description 11/17/1999 Outpatient Historical Manuel Andersen MD [address] [place] [address] Social History Tobacco Use Types Packs/Day Years Used Date Smoking Tobacco: Never Assessed Comments Unknown Sex and Gender Information Value Date Recorded Sex Assigned at Not on file Legal Sex Female 4:30 AM [employer] Gender Identity Not on file Sexual Orientation Not on file documented as of this encounter Plan of Treatment Not on file documented as of this encounter Visit Diagnoses Not on filedocumented in this encounter
--- OUTSIDE RECORDS SUMMARY | 2025-07-24 07:29 | XMS_ITS | Encounter Summary ---
Author Organization [employer] [facility] Address [address], [place] [address] Care Team Providers Care Muffler Hand Name Role Phone Unavailable Primary Care Provider Unavailabl e Encounter Details Date Type Department Care Team (Latest Contact Info) Description 10/03/2001 Outpatient Historical [facility] Elvin Nielsen MD [address] [place] [address] CHEST PAIN NEC (Primary Dx); DIABETES UNCOMPL ADULT-TYPE II (CMS/HCC) Social History Tobacco Use Types Packs/Day Years Used Date Smoking Tobacco: Never Assessed Comments Unknown Sex and Gender Information Value Date Recorded Sex Assigned at Not on file 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
--- NOTE | 2025-07-24 07:35 | ECG_ITS ---
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 Measurements Intervals [place] Rate: 78 P: 78 ME: 245 QRS: -75 QRSD: 176 T: 75 QT: 468 QTc: 535 Interpretive Statements SINUS RHYTHM WITH FIRST DEGREE AV BLOCK LEFT AXIS DEVIATION [QRS AXIS < -30] RIGHT BUNDLE BRANCH BLOCK [120+ ms QRS DURATION, UPRIGHT V1, 40+ ms S IN I/aVL/V4/V5/V6] SEPTAL MYOCARDIAL INFARCTION , PROBABLY OLD [40+ ms Q WAVE IN V1/V2] Compared to ECG 01/30/2025 14:27:11 Left-axis deviation now present Myocardial infarct finding now present Left anterior fascicular block no longer present Electronically Signed On 07-24-2025 17:33:10 CDT by Sammy Aquino M.D. [email or web address]
[2025-07-24 07:55] LABS: Hematocrit 33.8 % (36-47); Hemoglobin 10.60 g/dL (11.27-16.99); Mean Corpuscular HGB Conc 31.4 g/dL (30-55); Mean Corpuscular Hemoglobin 28.0 pg (27-33); Mean Corpuscular Volume 89.4 fl (85-98); Nucleated Red Blood Cells % 0 %; Platelet Count 149 10^3/cmm (157-399); Red Blood Count 3.78 10^6/uL (3.85-5.65); White Blood Count 5.25 10^3/uL (3.29-11.43)
[2025-07-24] MEDS: hyDRALAzine 20 mg/mL INJ 1 mL 10 MG IVP ×2 (08:01→17:08)
[2025-07-24 08:09] LABS: Alanine Aminotransferase 13 U/L (0-33); Albumin Level 3.7 g/dL (3.5-5.2); Alkaline Phosphatase 136 U/L (35-105); Anion Gap 16.7 (5-19); Aspartate Amino Transferase 20 U/L (0-32); Blood Urea Nitrogen 58 mg/dL (8-23); Calcium 9.5 mg/dL (8.5-10.5); Carbon Dioxide 28 mmol/L (22-29); Chloride 104 mmol/L (98-107); Creatinine Clr Calc Pharmacy 27.6540; Globulin 3.5 g/dL (1.3-4.6); Glucose 83 mg/dL (65-115); Osmolality Calculated 315 mOsm/kg (285-295); Potassium 3.7 mmol/L (3.5-5.1); Sodium 145 mmol/L (136-145); Total Protein 7.2 g/dL (6.6-8.7)
[2025-07-24 08:17] LABS: INR 0.93 (0.8-1.2); Prothrombin Time 13.10 SECONDS (12.1-14.9)
[2025-07-24 08:18] LABS: Partial Thromboplastin Time 26.9 SECONDS (23.9-36.7)
--- NOTE | 2025-07-24 08:40 | MR_ITS ---
WS: [id number] MRI HEAD WITHOUT CONTRAST TECHNIQUE: Sagittal T1, T2 axial, T2 axial FLAIR, axial and coronal T1 images, axial susceptibility weighted imaging, axial diffusion weighted images, and coronal T2 images were obtained. CLINICAL INFORMATION: cva COMPARISON: CT 07/24/2025 FINDINGS: Some images degraded by motion artifact. No evidence of restricted diffusion to suggest acute ischemia. Mild small vessel changes. Mild parenchymal volume loss. Small chronic lacunar infarcts LEFT cerebellum. Normal vascular flow voids at the skull base. No extra-axial fluid collections. Mild mucosal thickening in the paranasal sinuses. Mastoid air cells are well aerated. No hemosiderin on the susceptibility weighted images. No other acute findings. MR/MR head wo con* [id number] IMPRESSION: 1. No evidence of restricted diffusion to suggest acute ischemia. 2. Mild small vessel changes with mild parenchymal volume loss. 3. Chronic lacunar infarcts in the LEFT cerebellum. 4. No hemosiderin on the susceptibly weighted images.
--- NOTE | 2025-07-24 08:40 | MR_ITS ---
WS: [id number] MRA HEAD TECHNIQUE: Axial 3-D TOF images obtained with axial images and axial, sagittal, and coronal 2-D reformatted images. CLINICAL INFORMATION: cva COMPARISON: None. FINDINGS: Distal vertebrals are patent. Basilar artery is patent. Normal vascularity to the RECREATION WORKER territory bilaterally. Both ICAs are patent at the skull base. Moderate bilateral distal carotid siphon stenosis. Absent LEFT A1 segment. Azygos ZEV. Normal vascularity to the ZEV and MCA territories bilaterally. No proximal flow-limiting intracranial stenosis. MR/MR angio head wo con [id number] IMPRESSION: 1. Moderate bilateral ICA stenosis in the distal carotid siphon. Some of signa l loss may be due to tortuosity. This can be followed up with CTA for better an atomic detail. 2. 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 3. No proximal flow-limiting intracranial stenosis.
[2025-07-24] MEDS: LORazepam 1 MG/0.5 ML injection IVP (09:07)
--- NOTE | 2025-07-24 13:16 | PM.HP ---
Providers/Chief Complaint Admitting Physician: Morris Doe Primary Care Provider: Denny Padgett MD Chief Complaint: woke up with extreme high bp History of Present Illness Jennifer Novak is a 70 year old woman with a history of monoclonal gammopathy of undetermined significance (MGUS), chronic anemia, prior gastrointestinal (GI) bleed, Factor V Leiden, hypertension (HTN), hyperlipidemia (HLD), antinuclear antibody (GIFTY)-positive inflammatory arthritis, atrial flutter (off anticoagulation due to prior GI bleed), diastolic congestive heart failure (CHF), chronic kidney disease (CKD), chronic back pain, obesity, fibromyalgia, chronic vision loss in the right eye, and diabetes mellitus. Recently hospitalized in January for hypertensive emergency with acute kidney injury (ROSEMARIE) on CKD and chronic diastolic CHF; treated with intravenous (IV) diuretics and switched from torsemide to furosemide; antihypertensives adjusted. Woke this morning with markedly decreased vision, describing that she could barely see lights; last known normal around 3:00?3:30 AM. Denies eye pain. Reports floaters/squiggly, thin black line-like shapes in the left eye and intermittent flashing lights in the right eye (in the past); no curtain-like vision loss. Right eye has chronic baseline blurriness; left eye had prior cataract removal with good vision until today. No recent eye injury. Notes episodic ?shocking? mild head pains recently but denies classic severe migraine history; had one migraine years ago. Reports jaw pain on one side recently but no jaw fatigue with chewing. Endorses severe leg pain with hot/cold sensations; started pregabalin (Lyrica) three weeks ago with benefit. Reports constipation, attributed to pregabalin. No fever, chills, sore throat, sneezing, cough, nausea, vomiting, or diarrhea. Denies tobacco, alcohol, or substance use. Lives with son; grandson is caregiver. Prefers no cardiopulmonary resuscitation (CPR) if cardiac or respiratory arrest occurs, but is okay with treatments otherwise. Review of Systems Const: Denies: fever(s), chills, body aches or malaise Eyes: Reports: blurry vision (severe, new in L eye) and floaters (new in L eye) ENMT: Denies: throat pain Card: Denies: chest pain, edema, pre-syncope or dyspnea on exertion Resp: Denies: dyspnea, productive cough, change in phlegm color or hemoptysis GI: Denies: abdominal pain, nausea, vomiting, diarrhea, constipation, hematochezia or melena : Denies: flank pain, urinary frequency or hematuria Musc: Denies: back pain, joint swelling or joint redness Skin/Breast: Denies: rash or new lesions Neuro: Denies: headache(s) or confusion Medications/Allergies Home Medications ?Medication ?Instructions ?Recorded ?Confirmed ?Last Taken ?Type acetaminophen 325 mg tablet 325 - 650 mg PO Q6H PRN Pain 12/13/21 07/24/25 Unknown History nitroglycerin 0.4 mg sublingual 0.4 mg sublingual Q5M PRN Chest 11/25/23 07/24/25 Unknown Rx tablet (Nitrostat) Pain #50 tabs fluoxetine 20 mg capsule 20 mg PO BID #60 caps 04/25/24 07/24/25 07/23/25 Rx losartan 100 mg tablet (Cozaar) 100 mg PO DAILY #30 tabs 04/25/24 07/24/25 Unknown Rx Held on 01/22/25. Instructions: Resume on 02/19/25. hold until follow up with nephrology pantoprazole 40 mg tablet,delayed 40 mg PO DAILY #30 tabs 04/25/24 07/24/25 07/23/25 Rx release insulin degludec 200 unit/mL (3 48 unit SUBCUT QAM 07/09/24 07/24/25 07/23/25 History mL) subcutaneous pen (Tresiba FlexTouch U-200 insulin) potassium chloride 10 mEq 10 meq PO DAILY 07/09/24 07/24/25 07/23/25 History capsule,extended release leflunomide 10 mg tablet 10 mg PO DAILY #90 tabs 07/16/24 07/24/25 07/23/25 Rx albuterol sulfate 90 mcg/actuation 2 puff inhalation Q4H PRN 01/16/25 07/24/25 Unknown History aerosol inhaler Shortness Of Breath torsemide 100 mg tablet 100 mg PO DAILY 01/30/25 07/24/25 07/23/25 History triamcinolone acetonide 0.025 % 1 applic topical DAILY PRN Skin 01/30/25 07/24/25 Unknown History topical cream Irritation hydralazine 25 mg tablet 25 mg PO TID 07/24/25 07/24/25 07/24/25 History insulin lispro 100 unit/mL See Rx Instructions .Route .COMPLEX 07/24/25 07/24/25 07/23/25 History subcutaneous pen metolazone 2.5 mg tablet 2.5 mg PO DAILY PRN Shortness Of 07/24/25 07/24/25 Unknown History Breath pregabalin 100 mg capsule 100 mg PO QPM PRN nerve pain 07/24/25 07/24/25 07/23/25 History sennosides 8.6 mg-docusate sodium 1 tab-cap PO BID PRN Constipation 07/24/25 07/24/25 07/23/25 History 50 mg tablet (Senokot-S) Allergies Allergy/AdvReac Type Severity Reaction Status Date / Time oxycodone Allergy Unknown Unknown Verified 02/04/25 15:24 spironolactone Allergy Unknown Temporary Verified 02/04/25 15:24 blindness,temporary blindness acetaminophen (From [facility]) Allergy Unknown Verified 02/04/25 15:24 bacitracin Allergy ADR-Nausea Verified 02/04/25 15:24 codeine Allergy ADR-Nausea Verified 02/04/25 15:24 hydrocodone (From [facility]) Allergy Unknown Verified 02/04/25 15:24 Latex, Natural Rubber Allergy Unknown Verified 02/04/25 15:24 morphine Allergy ADR-Itching Verified 02/04/25 15:24 neomycin (From Neosporin Allergy ALGY-Rash Verified 02/04/25 15:24 ([id number])) polymyxin B (From Neosporin Allergy ALGY-Rash Verified 02/04/25 15:24 ([id number])) Sulfa (Sulfonamide Allergy ADR-Nausea Verified 02/04/25 15:24 Antibiotics) sulfamethoxazole (From Allergy Unknown Verified 02/04/25 15:24 Bactrim) trimethoprim (From Bactrim) Allergy Unknown Verified 02/04/25 15:24 PFSH Acute PFSH: Medical History Chronic diastolic heart failure Gastric ulcer H. pylori ruled out at [facility] Situational anxiety Benign hypertension Type 2 diabetes mellitus with diabetic chronic kidney disease Hospital-acquired pneumonia Acute exacerbation of CHF (congestive heart failure) Acute on chronic renal failure Diabetic gastroparesis Hypoxia Anemia Positive GIFTY (antinuclear antibody) Frequent falls Muscle spasm High risk medication use Seronegative rheumatoid arthritis of both hands Diabetic foot Hip pain, left Atypical chest pain IgM monoclonal gammopathy of uncertain significance Intermittent atrial fibrillation Chest pain Edema CKD (chronic kidney disease) stage 3, GFR 30-59 ml/min Urinary disorder Anxiety Pneumonitis Left lumbar radiculopathy Back pain Lymph edema Fracture of distal end of fibula Syncope and collapse Essential tremor Mobility impaired IBS (irritable bowel syndrome) Inflammatory arthritis Chronic back pain Chronic major depressive disorder Peripheral neuropathy Polyarthralgia Edema, peripheral Noncompliance with diabetes treatment Not consistent with diet Near syncope Monoclonal gammopathy Major depression Diabetic neuropathy associated with type 2 diabetes mellitus Severe obstructive sleep apnea Mild cognitive impairment with memory loss Dietary noncompliance Atrial flutter Coronary artery fistula Chronic obstructive pulmonary disease, unspecified Obesity CKD (chronic kidney disease) Fibromyalgia Diverticulosis Environmental and seasonal allergies Vitamin D deficiency Surgical History History of left heart catheterization (2017) No significant obstructive coronary disease Hx of esophagogastroduodenoscopy Hx of colonoscopy History of tonsillectomy History of section 4 times History of cholecystectomy (1993) History of hysterectomy (1997) with BSO Family History Brother Bleeding disorder CAD (coronary artery disease) Father CAD (coronary artery disease) Chronic kidney disease (CKD) Mother CAD (coronary artery disease) Cancer Diabetes Family/Other Cancer Other Congestive heart failure (CHF) Heart disease Hypertension Denies family history of Clotting disorder Dementia Suicide Anesthesia complication Lung disease Stroke Social History Smoking and tobacco/nicotine status: former use of tobacco/nicotine Quit status (tobacco/nicotine): has quit using Year quit tobacco: 1990 Former quit date comment: smoked 20+ years Second hand smoke exposure: No Alcohol intake: never Substance/Drug Use: never Adopted: No Caregiver/support person: Yes Lives independently: No Household members: children and other Details: Son, sometimes grandson Housing: House Marital status: Single service: No Current occupational status: disabled Do you think of yourself as: Straight/Heterosexual Current gender identity: Female Vitals/I&O/Wt Last Vital Signs Temp 98.6 F 07/24/25 07:26 Pulse 68 07/24/25 10:30 Resp 17 07/24/25 08:30 BP 178/63 07/24/25 10:30 Pulse Ox 95 07/24/25 10:30 O2 Del Method Room Air 07/24/25 07:26 Weight last 48 hrs Weight 124.738 kg Physical Exam Const: COMMON NORMALS: patient oriented x3 and alert GENERAL APPEARANCE: cooperative ORIENTATION/CONSCIOUSNESS: Yes awake HENMT: COMMON NORMALS: oropharynx normal Eye: DIRECT OPHTHALMOSCOPY: Yes normal light reflex and Yes other (Challenging exam with reflection from artificial lens.) Neck/C-Spine: COMMON NORMALS: no JVD Resp: COMMON NORMALS: normal respiratory effort and clear to auscultation bilaterally AUSCULTATION: clear to auscultation bilaterally Cardio: COMMON NORMALS: no JVD, regular rhythm, S1 normal heart sound present, S2 normal heart sound present and No murmurs present (Cardio) RHYTHM: regular rhythm HEART SOUNDS: S1 normal heart sound present and S2 normal heart sound present GI: COMMON NORMALS: Normal to inspection, nondistended, normoactive bowel sounds present, Soft to palpation and non-tender PALPATION: Yes Soft to palpation Extremity: COMMON NORMALS: no joint enlargement and no pedal edema Neuro: COMMON NORMALS: patient oriented x3 and moves all extremities SENSORIUM/ORIENTATION: Yes alert Skin: COMMON NORMALS: no rashes or lesions noted GENERAL SKIN EXAM: no rashes or lesions noted Data 07/24/25 07:44 07/24/25 07:44 A&P Assessment and plan 1. Sudden visual loss of left eye: Acute painless vision loss, left eye : MRI of the head obtained without acute stroke; chronic small lacunar infarcts discussed. Ophthalmologic bedside view limited with significant Reflexions for artificial lens; concern discussed with ophthalmology for possible hemorrhage as cause; vision slightly improved subjectively since onset. She is seeing floaters and jagged lines. Suspected intraocular hemorrhage. Differential diagnosis considered with patient and ophthalmology with noted significant hypertension on presentation, recent jaw pain, history of seronegative arthritis, history of atrial fibrillation not on anticoagulation, consideration of embolic disease, giant cell arteritis. CRP and ESR only mild elevation. No signs to suggest embolic shower. She otherwise has been doing well apart from sudden painless vision loss. Reviewed vitals, CBC, INR, CMP, CT head, MRI, MRA, EKG, telemetry, ED provider note, discussed with ED provider. 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 Mayorga? office); discussed with her, ophthalmology would like to see her soon. Outpatient visit arranged for tomorrow or Tuesday depending on discharge timing - Follow up with ophthalmology for additional assessment of painless left eye vision loss - Continue low-dose aspirin at this time. Obtain echo bubble study. 2. Hypertensive urgency: Severely elevated blood pressure on presentation : Presented with blood pressures up to 229/95 mmHg; treated acutely in ED; plan for inpatient optimization. - Administered hydralazine 10 mg IV push in ED - Resume home hydralazine. Add amlodipine. Will hold torsemide for now. She does not appear fluid overloaded more in the dry side. On review of cardiology note resumption of losartan was considered pending nephrology opinion. - Monitor for risk of hypotension - Monitor blood pressures - Resume home antihypertensives including hydralazine - Remain inpatient for further reassessment and optimization of blood pressure control Plan: Atrial flutter (currently in sinus rhythm) with prior GI bleed precluding anticoagulation : History of atrial flutter; off anticoagulation due to prior GI bleeding; currently in normal sinus rhythm per documentation. - Continue low-dose aspirin at this time (per discussion; no acute stroke on MRI) Prior CVA: Incidentally noted lacunar CVA. Will benefit from continued optimization of hypertension with noted prior and current hypertensive urgency on admission. Continued control of diabetes. Other risk factors include underlying seronegative arthritis. As discussed with her start and continue with low-dose aspirin. Also start statin. Chronic kidney disease with elevated BUN/creatinine compared to normal : Known CKD; recent labs notable for BUN 58 and creatinine 2.5. - Adjust diuretic dosing due to appearing on the dry side (see CHF/diuretic plan) Chronic anemia with mild thrombocytopenia history : Chronic anemia slightly improved from prior (hemoglobin 10.6); platelets currently 149 with intermittent mild thrombocytopenia history. Diastolic congestive heart failure : Chronic diastolic CHF; appears on the dry side. - Continue torsemide but reduce dose for now Type 2 diabetes mellitus : She reports prediabetes. Last A1c noted 5.9 in February. History of diabetes; reports retinopathy concerns previously. - Continue pregabalin for neuropathic leg pain (per current meds) - Resume metformin at discharge. Consistent carb diet. Hyperlipidemia : Known HLD. - Add statin Chronic right-eye visual impairment : Baseline right-eye blurriness; chronic. Constipation : Patient reports constipation attributed to pregabalin. - Senna (noted as PRN home regimen) acknowledged; [General Hospital Care] : Diagnostics and coordination of care performed during this encounter. - MRI obtained showing no acute stroke; chronic small lacunar infarcts in left cerebellum - ESR 46 mm/hr and C-reactive protein (CRP) 6.4 mg/L obtained - Aspirin 324 mg administered in ED; lorazepam 1 mg IV push administered in ED - Obtain occupational therapy consultation - Obtain case management consultation PDMP PDMP Reviewed: Not Reviewed Attestations Medical Necessity Statement*: Place in observation for additional assessment management of blood pressure with hypertensive urgency, pending further assessment of sudden vision loss. Diagnoses Sudden visual loss of left eye H53.132 Hypertensive urgency I16.0
--- NOTE | 2025-07-24 14:41 | USCV_ITS ---
Jennifer Novak Age: 70 Gender: F : 1955 Exam Date: 07/24/2025 14:56 Ordering Phys: Morris Doe MD Technologist: Exam Location: [facility] [place] Indication: VISION LOSS BP: 200 / 79 HR: Rhythm: Sinus Technical Quality: Adequate MEASUREMENTS (Male / Female) Normal Values 2D ECHO LVOT Diameter 2.0 cm LV Ejection Fraction MOD 4C 55.4 % LV Ejection Fraction MOD 2C 67.1 % LV Ejection Fraction 2C AL 66.7 % LA Diameter 2.9 cm RA Systolic Volume 4C AL 58.5 ml RA Systolic Volume 4C MOD 56.5 ml LA Sys Volume AL 78.1 cm cubed LA Sys Volume Index AL 30.8 cm cubed/m squared Aorta at Sinotubular Diameter 3.3 cm FINDINGS Left Ventricle Normal left ventricular size, systolic function and wall thickness, with no regional wall motion abnormalities. Left ventricular ejection fraction is estimated at 65 %. Right Ventricle Right Atrium Left Atrium Mitral Valve Aortic Valve Tricuspid Valve Pulmonic Valve Pericardium Aorta IVC CONCLUSIONS Limited Echocardiogram Normal left ventricular size, systolic function and wall thickness, with no regional wall motion abnormalities. Left ventricular ejection fraction is estimated at 65 %. There is no pericardial effusion. Yoselin Sanabria MD (Electronically Signed) Final Date: 26 July 2025 12:05 S
[2025-07-24 16:28] LABS: PCP Screen Urine Negative (Negative)
[2025-07-24 16:30] LABS: Glucose Urine UA Negative (Normal); Nitrate Urine Negative (Negative); Specific Gravity, Urine 1.013 (1.005-1.030)
[2025-07-24 16:37] LABS: Add Urine Microscopic? YES
[2025-07-25] VITALS: BP 161/74; PULSE 74; RESP 17; TEMP 37; O2SAT 95
[2025-07-25 04:00] VITALS: BP 168/76; PULSE 70; RESP 16; TEMP 36.4; O2SAT 94
[2025-07-25 04:53] LABS: Anion Gap 13.7 (5-19); Blood Urea Nitrogen 62 mg/dL (8-23); Calcium 9.0 mg/dL (8.5-10.5); Carbon Dioxide 28 mmol/L (22-29); Chloride 106 mmol/L (98-107); Creatinine Clr Calc Pharmacy 25.3199; Glucose 121 mg/dL (65-115); Osmolality Calculated 317 mOsm/kg (285-295); Potassium 3.7 mmol/L (3.5-5.1); Sodium 144 mmol/L (136-145)
[2025-07-25 06:00] VITALS: PULSE 79
[2025-07-25 07:31] VITALS: BP 157/82; PULSE 72; RESP 18; TEMP 36.9; O2SAT 91
--- NOTE | 2025-07-25 09:18 | P.DS_ITS ---
Discharge Providers Date of Admission: 07/24/25 09:28 Date of Discharge: July 25, 2025 Attending Provider at Admission: Morris Doe Attending Provider at Discharge: Morris Doe Primary Care Provider: Denny Padgtet MD Diagnoses at Discharge Discharge Diagnosis 1. Sudden visual loss of left eye: 2. Hypertensive urgency: Reason for Visit Reason for Visit: woke up with extreme high bp Brief History: Jennifer Novak is a 70 year old woman with a history of monoclonal gammopathy of undetermined significance (MGUS), chronic anemia, prior gastrointestinal (GI) bleed, Factor V Leiden, hypertension (HTN), hyperlipidemia (HLD), antinuclear antibody (GIFTY)-positive inflammatory arthritis, atrial flutter (off anticoagulation due to prior GI bleed), diastolic congestive heart failure (CHF), chronic kidney disease (CKD), chronic back pain, obesity, fibromyalgia, chronic vision loss in the right eye, and diabetes mellitus. Recently hospitalized in January for hypertensive emergency with acute kidney injury (ROSEMARIE) on CKD and chronic diastolic CHF; treated with intravenous (IV) diuretics and switched from torsemide to furosemide; antihypertensives adjusted. Woke this morning with markedly decreased vision, describing that she could barely see lights; last known normal around 3:00?3:30 AM. Denies eye pain. Reports floaters/squiggly, thin black line-like shapes in the left eye and intermittent flashing lights in the right eye (in the past); no curtain-like vision loss. Right eye has chronic baseline blurriness; left eye had prior cataract removal with good vision until today. No recent eye injury. Notes episodic ?shocking? mild head pains recently but denies classic severe migraine history; had one migraine years ago. Reports jaw pain on one side recently but no jaw fatigue with chewing. Endorses severe leg pain with hot/cold sensations; started pregabalin (Lyrica) three weeks ago with benefit. Reports constipation, attributed to pregabalin. No fever, chills, sore throat, sneezing, cough, nausea, vomiting, or diarrhea. Denies tobacco, alcohol, or substance use. Lives with son; grandson is caregiver. Prefers no cardiopulmonary resuscitation (CPR) if cardiac or respiratory arrest occurs, but is okay with treatments otherwise. Hospital Course Hospital Course No acute stroke was found on MRI of the brain. Chronic lacunar infarcts in the LEFT cerebellum. She was resumed on home hydralazine, amlodipine was added for management of hypertension and she required additional dose of IV hydralazine but blood pressures are showing gradual improvement this morning systolic blood pressures 150s-160s. Visual symptoms showed some mild improvement. She is otherwise feeling well. No additional new symptoms. No new focal abnormalities. She is expected for visit with ophthalmology with Dr. Mayorga in office and so discharge orders are placed for her. Discussed, however, some increasing renal parameters, creatinine up to 2.7, noted ROSEMARIE on CKD. Chemistries requested to be repeated tomorrow as per discussion with her with for follow-up with primary provider, and should resume follow-up with nephrology. As she appears on the dry side currently she is asked to hold torsemide for now pending reassessment and consideration of resumption as discussed with her. Losartan is not resumed at current time due to fluctuations in renal function, but may be considered once renal function is found stable. Consider revisiting anticoagulation for stroke risk reduction with history of atrial flutter when safe alongside continued optimization of hypertension control and diabetes management. Physical Exam Const: COMMON NORMALS: patient oriented x3 and alert GENERAL APPEARANCE: cooperative ORIENTATION/CONSCIOUSNESS: Yes awake HENMT: COMMON NORMALS: oropharynx normal Eye: GENERAL EYE: normal light reflex DIRECT OPHTHALMOSCOPY: Yes normal light reflex and Yes other (Challenging exam with reflection from artificial lens.) Neck/C-Spine: COMMON NORMALS: no JVD Resp: COMMON NORMALS: normal respiratory effort and clear to auscultation bilaterally AUSCULTATION: clear to auscultation bilaterally Cardio: COMMON NORMALS: no JVD, regular rhythm, S1 normal heart sound present, S2 normal heart sound present and No murmurs present (Cardio) RHYTHM: regular rhythm HEART SOUNDS: S1 normal heart sound present and S2 normal heart sound present GI: COMMON NORMALS: Normal to inspection, nondistended, normoactive bowel sounds present, Soft to palpation and non-tender PALPATION: Yes Soft to palpation Extremity: COMMON NORMALS: no joint enlargement and no pedal edema Neuro: COMMON NORMALS: patient oriented x3 and moves all extremities SENSORIUM/ORIENTATION: Yes alert OTHER: Initially counting fingers at 2 feet, now can read large text on TV. Otherwise no difficulty tracking. No facial droop, no aphasia or dysarthria. Visual shaikh appear reduced on the left in the left eye. Unable to assess in the right eye. Performs FNF. No sensory asymmetry, no sensory extinction. No upper or lower extremity drift. Skin: COMMON NORMALS: no rashes or lesions noted GENERAL SKIN EXAM: no rashes or lesions noted Discharge Data Studies Completed and Pending Completed Studies During Hospitalization Category Date Time Status CT head thrombolytic [id number] Stat Cat Scan 07/24/25 07:25 Completed MR head wo con* [id number] Stat MRI 07/24/25 08:40 Completed MRA head [MR angio head wo con [id number]] Stat MRI 07/24/25 08:40 Completed Pending at discharge Category Date Time Status CV. echo lmt wo/w bubble [id number] Routine Ultrasound 07/24/25 14:41 Taken Radiology Impressions Head CT 07/24/25 07:25 IMPRESSION: 1. Age appropriate mild supratentorial and infratentorial atrophy. 2. Mild chronic white matter microvascular ischemic disease. 3. No acute intracranial abnormality identified. ASSESSMENT: ASPECTS ([place] Stroke Program Early CT Score) is 10. ADDENDUM: 07/24/25 0746 THIS REPORT CONTAINS FINDINGS THAT MAY BE CRITICAL TO PATIENT CARE. The findings were verbally communicated by me to DR. FADIA HUNT via telephone conference at 7:45 AM CDT on 07/24/2025. The findings were acknowledged and understood. Head MRI 07/24/25 08:40 IMPRESSION: 1. No evidence of restricted diffusion to suggest acute ischemia. 2. Mild small vessel changes with mild parenchymal volume loss. 3. Chronic lacunar infarcts in the LEFT cerebellum. 4. No hemosiderin on the susceptibly weighted images. Head MRA 07/24/25 08:40 IMPRESSION: 1. Moderate bilateral ICA stenosis in the distal carotid siphon. Some of signal loss may be due to tortuosity. This can be followed up with CTA for better anatomic detail. 2. 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 3. No proximal flow-limiting intracranial stenosis. Laboratory Results WBC 5.25 10^3/uL (3.29-11.43) 07/24/25 07:44 RBC 3.78 10^6/uL (3.85-5.65) L 07/24/25 07:44 Hgb 10.60 g/dL (11.27-16.99) L 07/24/25 07:44 Hct 33.8 % (36-47) L 07/24/25 07:44 MCV 89.4 fl (85-98) 07/24/25 07:44 MCH 28.0 pg (27-33) 07/24/25 07:44 MCHC 31.4 g/dL (30-55) 07/24/25 07:44 RDW 13.4 % (12.1-15.1) 07/24/25 07:44 Plt Count 149 10^3/cmm (157-399) L 07/24/25 07:44 MPV 10.7 fL (7.4-10.4) H 07/24/25 07:44 Neut % (Auto) 67.7 % 07/24/25 07:44 Lymph % (Auto) 19.0 % 07/24/25 07:44 [place] % (Auto) 8.0 % 07/24/25 07:44 Eos % (Auto) 3.8 % 07/24/25 07:44 Baso % (Auto) 1.3 % 07/24/25 07:44 Neut # (Auto) 3.55 10^3/uL (1.8-7.7) 07/24/25 07:44 Lymph # (Auto) 1.0 10^3/uL (0.8-4.8) 07/24/25 07:44 [place] # (Auto) 0.4 10^3/uL (0.2-0.9) 07/24/25 07:44 Eos # (Auto) 0.2 10^3/uL (0.0-0.8) 07/24/25 07:44 Baso # (Auto) 0.1 10^3/uL (0.0-0.1) 07/24/25 07:44 Nucleated RBC % (auto) 0 % 07/24/25 07:44 Nucleated RBCs # 0.0 /100WBC 07/24/25 07:44 ESR 46 mm/hr (0-15) H 07/24/25 07:44 PT 13.10 SECONDS (12.1-14.9) 07/24/25 07:44 INR 0.93 (0.8-1.2) 07/24/25 07:44 APTT 26.9 SECONDS (23.9-36.7) 07/24/25 07:44 Sodium 144 mmol/L (136-145) 07/25/25 02:40 Potassium 3.7 mmol/L (3.5-5.1) 07/25/25 02:40 Chloride 106 mmol/L (98-107) 07/25/25 02:40 Carbon Dioxide 28 mmol/L (22-29) 07/25/25 02:40 Anion Gap 13.7 (5-19) 07/25/25 02:40 BUN 62 mg/dL (8-23) H 07/25/25 02:40 Creatinine 2.7 mg/dL (0.5-0.9) H 07/25/25 02:40 GFR Calculation 17.5 mL/min (90-130) L 07/25/25 02:40 Glucose 121 mg/dL (65-115) H 07/25/25 02:40 POC Glucose 78 mg/dL (70-110) 07/24/25 07:27 Calculated Osmolality 317 mOsm/kg (285-295) H 07/25/25 02:40 Calcium 9.0 mg/dL (8.5-10.5) 07/25/25 02:40 Total Bilirubin 0.2 mg/dL (0.15-1.2) 07/24/25 07:44 AST 20 U/L (0-32) 07/24/25 07:44 ALT 13 U/L (0-33) 07/24/25 07:44 Alkaline Phosphatase 136 U/L (35-105) H 07/24/25 07:44 C-Reactive Protein 6.4 mg/L (0.0-4.9) H 07/24/25 07:44 Total Protein 7.2 g/dL (6.6-8.7) 07/24/25 07:44 Albumin 3.7 g/dL (3.5-5.2) 07/24/25 07:44 Globulin 3.5 g/dL (1.3-4.6) 07/24/25 07:44 Urine Color Yellow (Yellow) 07/24/25 15:42 Urine Appearance Clear (CLEAR) 07/24/25 15:42 Urine pH 6.5 (5-7) 07/24/25 15:42 Ur Specific [place] 1.013 (1.005-1.030) 07/24/25 15:42 Urine Protein 3+ (Negative) A 07/24/25 15:42 Urine Glucose (UA) Negative (Normal) 07/24/25 15:42 Urine Ketones Negative (Negative) 07/24/25 15:42 Urine Blood Negative (Negative) 07/24/25 15:42 Urine Nitrate Negative (Negative) 07/24/25 15:42 Urine Bilirubin Negative (Negative) 07/24/25 15:42 Urine Urobilinogen 0.2 mg/dL (Negative) 07/24/25 15:42 Ur Leukocyte Esterase Negative (Negative) 07/24/25 15:42 Urine RBC 0-2 /hpf (0-2) 07/24/25 15:42 Urine WBC 6-10 /hpf (0-5) 07/24/25 15:42 Ur Squamous Epith Cells 0-5 /hpf (0-5) 07/24/25 15:42 Amorphous Sediment Not Reportable 07/24/25 15:42 Urine Bacteria None seen /hpf (NONE) 07/24/25 15:42 Hyaline Casts 1.21 /lpf 07/24/25 15:42 Urine Opiates Screen Negative ng/mL (Negative) 07/24/25 15:42 Ur Barbiturates Screen Negative ng/mL (Negative) 07/24/25 15:42 Ur Phencyclidine Scrn Negative ng/mL (Negative) 07/24/25 15:42 Ur Amphetamines Screen Negative ng/mL (Negative) 07/24/25 15:42 U Benzodiazepines Scrn Negative ng/mL (Negative) 07/24/25 15:42 Urine Cocaine Screen Negative ng/mL (Negative) 07/24/25 15:42 U Marijuana (THC) Screen Negative ng/mL (Negative) 07/24/25 15:42 Vitals Last Vital Signs Temp 98.5 F 07/25/25 07:31 Pulse 72 07/25/25 07:31 Resp 18 07/25/25 07:31 BP 157/82 07/25/25 07:31 Pulse Ox 91 07/25/25 07:31 O2 Del Method Room Air 07/25/25 07:31 Discharge Plan Discharge Patient Disposition: Home Condition: Stable Prescriptions: New amlodipine 5 mg Tablet 5 mg PO DAILY Qty: 90 0RF atorvastatin 40 mg Tablet 40 mg PO BEDTIME Qty: 90 0RF aspirin 81 mg tablet 81 mg PO DAILY Qty: 90 0RF polyethylene glycol 3350 [Miralax] 17 gram powder in packet 17 g PO BID Qty: 30 0RF Continued losartan [Cozaar] 100 mg tablet 100 mg PO DAILY Qty: 30 2RF pantoprazole 40 mg tablet,delayed release (DR/EC) 40 mg PO DAILY Qty: 30 2RF potassium chloride 10 mEq capsule, extended release 10 meq PO DAILY leflunomide 10 mg tablet 10 mg PO DAILY Qty: 90 1RF insulin degludec [Tresiba FlexTouch U-200] 200 unit/mL (3 mL) insulin pen 48 unit SUBCUT QAM nitroglycerin [Nitrostat] 0.4 mg tablet, sublingual 0.4 mg SUBLINGUAL Q5M PRN (Reason: Chest Pain) Qty: 50 3RF Rx Instructions: do not exceed 3 doses per episode acetaminophen 325 mg tablet 325 - 650 mg PO Q6H PRN (Reason: Pain) albuterol sulfate 90 mcg/actuation HFA aerosol inhaler 2 puff INHALATION Q4H PRN (Reason: Shortness Of Breath) triamcinolone acetonide 0.025 % cream 1 applic TOPICAL DAILY PRN (Reason: Skin Irritation) metolazone 2.5 mg tablet 2.5 mg PO DAILY PRN (Reason: Shortness Of Breath) insulin lispro 100 unit/mL insulin pen See Rx Instructions .ROUTE .COMPLEX Rx Instructions: USE as directed PER sliding scale daily. Max daily DOSE is 27 units. pregabalin 100 mg capsule 100 mg PO QPM PRN (Reason: nerve pain) sennosides-docusate sodium [Senokot-S] 8.6-50 mg tablet 1 tab-cap PO BID PRN (Reason: Constipation) hydralazine 25 mg tablet 25 mg PO TID Held fluoxetine 20 mg capsule 20 mg PO BID Qty: 60 2RF Hold Instructions: Resume on 07/29/25. torsemide 100 mg tablet 100 mg PO DAILY Hold Instructions: Resume on 08/02/25. Other Ambulatory Orders: Basic Metabolic Panel (Routine) Timeframe: 1 Day Facility: [facility] - Location: Lab - Main Lab Ordered By: Morris Doe Referrals: Denny Padgett MD [Primary Care Provider, Internal Medicine] - 07/31/25 1:40 pm Referral Note: Vision loss, HTN urgency, ROSEMARIE on CKD Misha Mayorga [Physician, Opthalmology] - 07/26/25 10:30 am Hansa Grant MD [Physician, Neurology] - 2 weeks Referral Note: cva Discharge Diet: Cardiac and Diabetic Patient Instructions: Aspirin (By mouth), Amlodipine (By mouth), Atorvastatin (By mouth), Opioid Safety, Stroke Stoplight, Patient Portal & Ingrid Instructions Activity Restrictions/Additional Instructions: Follow-up with otology in office today regarding vision loss as discussed. Follow-up with your primary doctor for reassessment. Follow-up also regarding findings of prior lacunar strokes. Follow-up for continued optimization of blood pressure control. Continue to measure blood pressures 3 times daily, save values to bring to her appointment. Amlodipine is added to your blood pressure regimen. Have repeat chemistry drawn tomorrow and follow-up with your primary doctor. Long-term, depending on renal function consider resumption of losartan at some point. Have your primary doctor reassess your renal function with noted mild ROSEMARIE on CKD. Hold off on torsemide for now until kidney function reassessed and diuretic resumed by her primary provider. Follow-up with your primary provider regarding recurrent mild headache, constipation and other chronic problems. Discharge Attestations Time Spent in Discharge Care*: greater than 30 min Status at Discharge: Cognitive status at discharge: mildly impaired cognition , Behavioral status at discharge: cooperative , Quality Metrics Clinical Quality Measures [ Cerebrovascular Accident { Contraindication to Antithrombotic: None; antithrombotic prescribed; Contraindication to Anticoagulation: Overlap treat ment not indicated; Contraindication to Statin: None; Statin prescribed;}] Coding Level of Care Code 14057 Total time (in minutes) for Discharge: 45 Diagnoses Sudden visual loss of left eye H53.132 Hypertensive urgency I16.0
--- NOTE | 2025-07-25 10:25 | PC.NURSE ---
documentation coordinator rounds at 0945- gave patient stroke education book
[2025-07-25 11:43] VITALS: BP 145/76; PULSE 75; RESP 17; TEMP 37.3; O2SAT 91
[2025-07-25 13:59] VITALS: BP 145/76; PULSE 75; RESP 17; TEMP 37.3; O2SAT 91
== END 2025-07-25 14:01 | disposition home or self-care (01) ==
LOC: ER 09:14 → ER IP 09:29 → MEDSURG 20:23
PROVIDERS: Admitting Provider Internal Medicine; Emergency Provider Emergency Medicine; PCP Internal Medicine; Visit Provider Internal Medicine
DX: I16.0 Hypertensive urgency (principal); H53.132 Sudden visual loss, left eye; K21.9 Gastro-esophageal reflux disease without esophagitis; Z79.4 Long term (current) use of insulin; E11.22 Type 2 diabetes mellitus with diabetic chronic kidney disease; I13.0 Hypertensive heart and chronic kidney disease with heart failure and stage 1 through stage 4 chronic kidney disease, or unspecified chronic kidney disease; N18.30 Chronic kidney disease, stage 3 unspecified; I50.32 Chronic diastolic (congestive) heart failure; D64.9 Anemia, unspecified; R29.6 Repeated falls; M06.9 Rheumatoid arthritis, unspecified; I48.91 Unspecified atrial fibrillation; F41.9 Anxiety disorder, unspecified; F32.9 Major depressive disorder, single episode, unspecified; G62.9 Polyneuropathy, unspecified; G47.33 Obstructive sleep apnea (adult) (pediatric); E66.9 Obesity, unspecified; Z68.42 Body mass index [BMI] 45.0-49.9, adult; K57.30 Diverticulosis of large intestine without perforation or abscess without bleeding; M79.7 Fibromyalgia; Z82.49 Family history of ischemic heart disease and other diseases of the circulatory system; Z87.891 Personal history of nicotine dependence
CPT/HCPCS: 36415; 36416; 70450; 70544; 70551; 80048; 80053; 80306; 81001; 82962; 85025; 85610; 85651; 85730; 86140; 93005; 96374; 96375; 96376; 97165; 99285; C8924; G0378; J0360; J2060; J9999

== ENCOUNTER 2025-07-26 12:27 | Outpatient (CLI) | payer OTHER, MEDICAID, SELFPAY ==
[2025-07-26 13:10] LABS: Blood Urea Nitrogen 63 mg/dL (8-23); Calcium 9.2 mg/dL (8.5-10.5); Carbon Dioxide 21 mmol/L (22-29); Chloride 106 mmol/L (98-107); Glucose 78 mg/dL (65-115); Osmolality Calculated 313 mOsm/kg (285-295); Sodium 143 mmol/L (136-145)
[2025-07-26 13:16] LABS: Anion Gap 20.5 (5-19); Potassium 4.5 mmol/L (3.5-5.1)
== END 2025-07-26 12:28 | disposition home or self-care (01) ==
LOC: LAB 12:28
PROVIDERS: PCP Internal Medicine; Visit Provider Internal Medicine
DX: N17.9 Acute kidney failure, unspecified (principal); N18.4 Chronic kidney disease, stage 4 (severe)
CPT/HCPCS: 36415; 80048

== ENCOUNTER 2025-08-23 13:08 | Outpatient (CLI) | payer OTHER, MEDICAID, SELFPAY ==
[2025-08-23 14:07] LABS: Hematocrit 27.1 % (36-47); Hemoglobin 8.60 g/dL (11.27-16.99); Mean Corpuscular HGB Conc 31.7 g/dL (30-55); Mean Corpuscular Hemoglobin 28.7 pg (27-33); Mean Corpuscular Volume 90.3 fl (85-98); Nucleated Red Blood Cells % 0 %; Platelet Count 149 10^3/cmm (157-399); Red Blood Count 3.00 10^6/uL (3.85-5.65); White Blood Count 7.00 10^3/uL (3.29-11.43)
[2025-08-23 14:25] LABS: Albumin Level 3.6 g/dL (3.5-5.2); Anion Gap 18.8 (5-19); Blood Urea Nitrogen 51 mg/dL (8-23); Calcium 9.1 mg/dL (8.5-10.5); Carbon Dioxide 26 mmol/L (22-29); Chloride 104 mmol/L (98-107); Glucose 93 mg/dL (65-115); Potassium 3.8 mmol/L (3.5-5.1); Sodium 145 mmol/L (136-145)
[2025-08-23 14:27] LABS: Calcium 8.8 mg/dL (8.5-10.5)
[2025-08-23 14:30] LABS: Creatinine Urine, Random 62 mg/dL (28-217)
== END 2025-08-23 13:09 | disposition home or self-care (01) ==
LOC: LAB 13:11
PROVIDERS: PCP Internal Medicine; Visit Provider Registered Nurse
DX: N18.4 Chronic kidney disease, stage 4 (severe) (principal)
CPT/HCPCS: 36415; 80069; 82306; 82310; 82575; 83970; 85025

== ENCOUNTER → 2025-08-26 12:21 | Outpatient (BNVA) | payer OTHER, MEDICAID, SELFPAY | PROVIDERS: PCP Internal Medicine; Referring Provider Emergency Medicine; Visit Provider Specialist | DX: I63.9 Cerebral infarction, unspecified (principal) | CPT/HCPCS: 99205 ==

== ENCOUNTER → 2025-10-24 09:09 | Outpatient (BNVA) | payer OTHER, MEDICAID, SELFPAY | PROVIDERS: PCP Internal Medicine; Visit Provider Nurse Practitioner Family | DX: R07.9 Chest pain, unspecified (principal); I48.92 Unspecified atrial flutter; I16.0 Hypertensive urgency; I13.0 Hypertensive heart and chronic kidney disease with heart failure and stage 1 through stage 4 chronic kidney disease, or unspecified chronic kidney disease; E11.22 Type 2 diabetes mellitus with diabetic chronic kidney disease; N18.4 Chronic kidney disease, stage 4 (severe); I50.32 Chronic diastolic (congestive) heart failure; Z79.4 Long term (current) use of insulin; D64.9 Anemia, unspecified; Z87.891 Personal history of nicotine dependence; I48.3 Typical atrial flutter | CPT/HCPCS: 93005; 99214 ==

== ENCOUNTER 2025-10-31 07:52 | Outpatient (CLI) | payer OTHER, MEDICAID, SELFPAY ==
[2025-10-31 08:11] VITALS: BMI 49.6
--- NOTE | 2025-10-31 08:13 | NMCV_ITS ---
NM ariadna perf SPECT r/s* [id number] Jennifer Novak Age: 70 Gender: F : 1955 Exam Date: 10/31/2025 08:51 Ordering Phys: Senait Smith Technologist: PAULETTE Cummings Exam Location: [facility] Indications: cp STRESS TEST Please [facility] for [facility] findings IMAGE PROTOCOL Rest/Stress 1 Lexiscan Day Radiopharmaceutical Dose (mCi) Administration Site Administered by Rest: Tc-99m 10.6 IV Laney Prater, [employer] Sestamibi Stress:Tc-99m 33 IV Laney Josi, [employer] Sestamibi Rest: 31-Oct-2025 60 Discovery 630 Stress: 31-Oct-2025 30 Discovery 630 0.4mg Lexiscan. Supine position only as patient was unable to lay prone. SPECT RESULTS Technical Quality: Good Raw Data Analysis: Normal Image Corrections: No attenuation or motion correction applied Summed Stress Score: 15 Summed Rest Score: 14 Summed Difference Score: 6 PERFUSION FINDINGS There is a small fixed defect in the apical inferior wall segment. There is a medium to large sized area of mildly reduced tracer counts in the anterolateral wall which partially improves on the resting images. There is a large amount of breast tissue on the tomographic images that can cause soft tissue artifact in the anterolateral wall on the nuclear images. FUNCTIONAL RESULTS (calculated via Gated SPECT) Stress Image LV EF (%): 58 Stress EDV (mL):125 TID: 0.76 Stress ESV (mL):52 FUNCTIONAL FINDINGS: There is normal left ventricular systolic function. Ejection fraction 58% IMPRESSIONS 1. There is a large area of breast tissue attenuation artifact in the anterolateral wall. A concomitant small to medium sized area of ischemia in the anterolateral wall cannot be excluded. There is a small area of infarction versus artifact in the apical inferior wall segment. 2. Normal left ventricular systolic function, EF 58%. Mike Garcia MD, FACC (Electronically Signed) Final Date: 31 October 2025 13:05 S
--- NOTE | 2025-10-31 08:13 | ECG_ITS ---
Perfect Price Test Date: 2025-10-31 Pat Name: Jennifer Novak Department: Room: Gender: Female Train Operator: : 1955 Requested By: Senait Smith Order Number: [id number] Norton MD: Mike Garcia M.D. Interpretive Statements procedure: A total of 0.4 mg of Lexiscan was infused over 20 seconds. The stress phase was continued for a total of 5 minutes. Sestamibi was injected 20 seconds after the Lexiscan infusion. Findings:Baseline blood pressure was 191/83 with a heart rate of 75 bpm. After Lexiscan fusion the blood pressure decreased to 126/55 mmHg and the heart rate increased to 86 bpm. The patient experienced no angina symptoms during the stress test. Baseline EKG showed normal sinus rhythm with right bundle branch block and left anterior fascicular block. There were occasional premature atrial complexes. Conclusion: 1. Stress EKG negative for ischemia. 2. No Lexiscan induced chest pain. 3. Occasional premature atrial contractions 4. Nuclear myocardial perfusion scan pending; see separate report. Electronically Signed On 10-31-2025 18:15:26 [employer]OCATION COMMISSIONER by Mike Garcia M.D. [email or web address]
[2025-10-31] MEDS: ondansetron 2 mg/ML SDV 2 mL 4 MG IVP (09:29)
[2025-10-31 09:47] VITALS: BP 156/64; PULSE 84
== END 2025-10-31 07:53 | disposition home or self-care (01) ==
LOC: CDL 07:55
PROVIDERS: Family Provider Family Medicine; PCP Internal Medicine; Visit Provider Nurse Practitioner Family
DX: I20.9 Angina pectoris, unspecified (principal); I49.1 Atrial premature depolarization; I10 Essential (primary) hypertension; I45.10 Unspecified right bundle-branch block; I44.4 Left anterior fascicular block; R94.31 Abnormal electrocardiogram [ECG] [EKG]; R94.39 Abnormal result of other cardiovascular function study
CPT/HCPCS: 36415; 78452; 93017; 96374; A9500; J2405; J2785

== ENCOUNTER 2025-11-19 08:16 | Outpatient (CLI) | payer MEDICARE, MEDICAID, SELFPAY ==
--- NOTE | 2025-11-19 08:29 | CT_ITS ---
WS: [id number] CT NECK TECHNIQUE: Noncontrast CT of the neck with coronal and sagittal reformatted images. CLINICAL INFORMATION: DYSPHAGIA COMPARISON: 2021 DLP: 423.[address] scans at [facility] use at least one of these dose optimization techniques: automated exposure control; mA and/or kV adjustment per patient size (includes targeted exams where dose is matched to clinical indication); or iterative reconstruction. FINDINGS: Exam is limited without IV contrast Previously described prominence of the [employer] and lingual tonsils is unchanged compared to 2022. Parotid glands are normal. Normal submandibular glands. Normal posterior nasopharynx. Normal parapharyngeal fat. Mastoid air cells are well aerated. Small retention cyst RIGHT maxillary sinus. No evidence of glottic or subglottic mass. Calcified LEFT thyroid nodule measuring 10 mm. Aortic calcification. Lung apices are well aerated. No cervical lymphadenopathy. Moderate spondylitic changes cervical spine. CT/CT neck wo con [id number] IMPRESSION: Exam is limited without IV contrast 1. Again seen is prominence of the palatine and lingual tonsils unchanged comp ared to previous. Recommend endoscopy if not previously performed. 2. No evidence of glottic or subglottic mass. 3. No cervical lymphadenopathy. 4. Small calcified LEFT thyroid nodule. 5. No other acute findings.
--- NOTE | 2025-11-19 08:30 | FL_ITS ---
WS: [id number] Barium swallow and esophagram, 11/19/2025 Clinical Data: DYSPHAGIA Comparison: Barium swallow, 07/06/2022 Fluoroscopy time: 1min [id number] # of spot films: 42 Findings: The patient swallowed the thin barium, and it flowed through the hypopharynx without hesitation. No stricture, mass, polyp or erosion was seen. No aspiration or penetration occurred The barium entered the esophagus and there was fair motility throughout. Tertiary contractions occurred. No hiatal hernia, reflux, stricture, polyp, mass, erosion or ulcer was noted. The barium flowed normally into the stomach. FL/FL barium swallow [id number] Impression: Normal esophagram.
== END 2025-11-19 08:17 | disposition home or self-care (01) ==
LOC: RAD 08:18
PROVIDERS: Family Provider Family Medicine; PCP Internal Medicine; Visit Provider Specialist
DX: R13.19 Other dysphagia (principal); J34.1 Cyst and mucocele of nose and nasal sinus
CPT/HCPCS: 70490; 74220